=== PATIENT | female | born 1950 | race Caucasian/White ===

== ENCOUNTER 2020-04-12 18:40 | Emergency (ER) | payer BC, OTHER ==
--- OUTSIDE RECORDS SUMMARY | 2020-04-12 18:42 | XMS REPORT | Clinical Summary ---
:1950 Author Organization [facility] Address [address] [place] [id number] Care Team Providers Name Role Phone Maty Kim Primary Care Provider Allergies Active Allergy Reactions Severity Noted Date Comments Codeine Nausea And Vomiting 05/15/2017 Sulfa (Sulfonamide Antibiotics) Hives 8 Medications Medication Sig Dispensed Refills Start Date End Date Status levothyroxine Take 112 mcg by 0 Active (SYNTHROID, LEVOTHROID) mouth Every 112 MCG tablet morning on an empty stomach. pregabalin (LYRICA) 225 Take 225 mg by 0 Active MG capsule mouth 2 (two) times daily. clotrimazole-betamethas Apply topically 2 0 Active one (LOTRISONE) 1-0.05 (two) times % cream daily. cholecalciferol, Take 50,000 Units 0 Active vitamin D3, (DECARA) by mouth once a 50,000 unit capsule week. desvenlafaxine Take 50 mg by 0 A ctive succinate (PRISTIQ) 50 mouth daily. MG 24 hr tablet mirtazapine (REMERON) Take 15 mg by 0 Active 30 MG tablet mouth nightly . temazepam (RESTORIL) 15 Take 15 mg by 0 Active mg capsule mouth every night as needed for Sleep. lidocaine (LIDODERM) 5 Place 1 patch 0 Active % patch onto the skin daily Remove & Discard patch within 12 hours or as directed by MD . pramipexole (MIRAPEX) Take 0.5 mg by 0 Active 0.5 MG tablet mouth nightly. docusate sodium Take 100 mg by 0 Active (COLACE) 100 MG capsule mouth 2 (two) times daily. oxymetazoline (AFRIN) 2 sprays by Nasal 0 Active 0.05 % nasal spray route 2 (two) times daily as needed for Congestion. diphenhydrAMINE Take 25 mg by 0 Active (ZZZQUIL) 25 mg capsule mouth every night as needed (sleep). MENTHOL (ICY HOT PATCH Apply 1 patch 0 Active TOP) topically 2 (two) times daily. gabapentin (NEURONTIN) Take 300 mg by 0 Active 300 MG capsule mouth 3 (three) times daily. oxyCODONE (ROXICODONE) Take 15 mg by 0 Active 15 MG immediate release mouth every 4 tablet (four) hours as needed for Pain. furosemide (LASIX) 20 Take 10 mg by 0 Active MG tabletIndications: mouth daily. hypertension Active Problems Problem Noted Date Chronic pain 12/11/2017 Wound, surgical, infected 08/21/2017 Pre-op testing 08/21/2017 Essential hypertension 06/18/2017 Hypothyroidism 06/18/2017 Depression with anxiety 06/18/2017 Obesity 06/18/2017 Pain 06/18/2017 Chronic pain disorder 05/25/2017 Social History Tobacco Use Types Packs/Day Years Used Date Never Smoker Smokeless Tobacco: Never Used Alcohol Use Drinks/Week oz/Week Comments No Sex Assigned at Date Recorded Not on file Last Filed Vital Signs Not on file Plan of Treatment Health Maintenance Due Date Last Done Comments BREAST CANCER SCREENING 1950 COLON CANCER SCREENING COLONOSCOPY 1950 MEDICARE ANNUAL WELLNESS (YEAR 2 or FIRST YEAR if no 06/09/2015 IPPE) INFLUENZA VACCINE (#1) 2019 02/16/2016 PNEUMOCOCCAL 65+ YRS Completed 02/16/2016 Implants Implanted Type Area Corporate Tutor Device Shelf Model / Identifier Expiration Serial / Date Lot Cath Ascenda Intrathecal 2pc 8781 - [id number] Pain Right: [employer]:NEUROM 12/20/2018 8781 / Implanted: Qty: 1 on 06/13/2017 by Jerome Rodriguez MD at [facility] Mgmt/Sti Abdomen ODULATION / mulator [id number] Pump Infus Synchromed Ii 20 Ml 8637-20 - [id number] Pain Right: [employer]TR[employer]IC:NEUROM 8637-20 / Implanted: Qty: 1 on 06/13/2017 by Jerome Rodriguez MD at [facility] Mgmt/Sti Abdomen ODULATION NGP [id number] / mulator Personal Industrial Psychologist 8835 - [id number] Pain Right: MEDTR ONIC:NEUROM 8835 / Implanted: Qty: 1 on 06/13/2017 by Jerome Rodriguez MD at [facility] Mgmt/Sti Abdomen ODULATION NPG [id number] / mulator Description:SUPPLY Cath Ascenda Intrathecal 2pc 8781 - [id number] Pain Right: MEDTR[employer]:NEUROMODULATION 10/18/2018 8781 / Implanted: Qty: 1 on 06/13/2017 by Jerome Rodriguez MD at [facility] Mgmt/Stimulator Abdomen / [id number] Pump Infus Synchromed Ii 20 Ml 8637-20 - [id number] Pain N/A: MEDTR[employer]IC:NEUROMODULATION 05/23/2019 8637-20 / Implanted: Qty: 1 on 12/11/2017 by Jerome Rodriguez MD at [facility] Mgmt/Stimulator Abdomen [id number] / Cath Ascenda Intrathecal 2pc 8781 - [id number] Pain N/A: [employer]:NEUROMODULATION 09/14/2019 8781 / Implanted: Qty: 1 on 12/11/2017 by Jerome Rodriguez MD at [facility] Mgmt/Stimulator Back / [id number] Kt Revision Spinal Segment 8782 - [id number] Pain N/A: [employer]:NEUROMODULATION 08/24/2019 8782 / Implanted: Qty: 1 on 12/11/2017 by Jerome Rodriguez MD at [facility] Mgmt/Stimulator Back / [id number] Results Not on fileafter 04/12/2019 Insurance Payer Benefit Plan Subscriber ID Effective Phone Address Typ e / Group Dates BLUE BCBS OS [id number] 2016-[place] [phone] [address] CROSS/BLUE POS/PPO/EPO nt 12 [id number] [place] [address] MEDICARE MEDICARE A B [id number] 2014-[place] Advance Directives For more information, please contact: [phone] Code Status Date Activated Date Inactivated Comments Full Code 12/11/2017 2:35 PM 12/13/2017 6:19 PM This code status was determined by: Patient Full Code 11/30/2017 8:18 AM 11/30/2017 11:31 PM This code status was determined by: Patient Full Code 08/21/2017 9:41 AM 08/22/2017 2:03 PM This code status was determined by: Patient Full Code 06/17/2017 9:18 PM 07/03/2017 4:26 PM This code status was determined by: Patient Full Code 05/25/2017 6:48 AM 05/25/2017 4:51 PM This code status was determined by: Patient
--- OUTSIDE RECORDS SUMMARY | 2020-04-12 18:51 | XMS REPORT | Continuity of Care Document ---
:1950 Author Organization [employer] MiName Care Team Providers Name Role Phone [employer] MiName Unavailable Un available Problems Problem Status Onset Classification Date Comments Sourc e Date Reported M19.90 UNSPECIFIED Diagnosis 10/22/2018 [place] OSTEOARTHRITIS, 019 Plac e UNSPECIFIED SITE Z95.810 PRESENCE OF Diagnosis 10/22/2018 [place] AUTOMATIC 019 Place (IMPLANTABLE) CARDIAC DEFIBRILLATOR E78.5 HYPERLIPIDEMIA, Diagnosis 10/22/2018 [place] UNSPECIFIED [address] K21.9 Diagnosis 10/22/2018 [facility] GASTRO-ESOPHAGEAL 019 Pl [place] REFLUX DISEASE WITHOUT ESOPHAGITIS R52 PAIN, UNSPECIFIED Diagnosis 10/22/[address] [place] [address] R53.1 WEAKNESS Diagnosis 10/22/2018 [facility] [address] [address] L30.9 DERMATITIS, Diagnosis 10/22/2018 [facility] UNSPECIFIED [address] W19.XXXA UNSPECIFIED Diagnosis 10/22/2018 [place] FALL, INITIAL 019 Place ENCOUNTER E66.9 OBESITY, Diagnosis 10/22/2018 Univ ersity UNSPECIFIED 019 Place M43.26 FUSION OF Diagnosis 10/22/2018 Un iversity SPINE, LUMBAR REGION 019 Place INTRACTABLE PAIN Active Uni versity 019 Place FALL LESS THAN 8FEET Active 019 [facility] LOW BACK PAIN Active MH 019 [facility] 2 MONTH FOLLOW UP Active MH [facility] 019 FOLLOW UP Active MH [facility] 019 Other specified 11/28/2018 MH [facility] depressive episodes 019 Encounter for 10/14/2018 OP ID screening mammogram 018 [facility] for malignant neoplasm of breast Z12.31 - ENCNTR SCREEN Active [facility] MAMMOGRAM FOR [place] 018 [place] Fever, unspecified 07/20/2018 018 [facility] Major depressive 09/04/2018 [facility] disorder, recurrent 018 severe without psychotic features Unspecified chronic 08/24/2018 gastritis without 018 [place] bleeding VOMITING UNSPECIFIED Active 018 [facility] Nausea with vomiting, 07/30/2018 unspecified 018 [place] Urinary tract 07/30/2018 infection, site not 018 [facility] specified SENT BY DOCTOR Active 018 [place] SENT BY PCP Active 018 [place] F/U Active [facility] 018 ANXIETY DISORDER/ DR Active [facility] [place]ILL[place] [phone] 018 F32.9 MAJOR DEPRESSIVE Diagnosis 10/22/2018 [place] DISORDER, SINGLE 018 [place] ce EPISODE, UNSPECIFIED R25.1 TREMOR, Diagnosis 10/22/2018 [address] rsity [address]IFIED [address] Z98.890 OTHER Diagnosis 10/22/2018 Unive rsity SPECIFIED 018 Place POSTPROCEDURAL STATES M54.5 LOW BACK PAIN Diagnosis 10/22/[address] [place] [address] I10 ESSENTIAL Diagnosis 10/22/2018 Unive rsity (PRIMARY) HYPERTENSION 018 Place Z96.9 PRESENCE OF Diagnosis 10/22/2018 [facility] niversity FUNCTIONAL IMPLANT, 018 Place UNSPECIFIED Chronic pain syndrome Diagnosis 10/22/2018 [place] (disorder) 018 Place Z97.8 PRESENCE OF Diagnosis 10/22/2018 [facility] OTHER SPECIFIED 018 Plac e DEVICES M79.7 FIBROMYALGIA Diagnosis 10/22/[address] [place] [address] E03.9 HYPOTHYROIDISM, Diagnosis 10/22/2018 [place] UNSPECIFIED [address] Z90.710 ACQUIRED Diagnosis 10/22/2018 Un [facility] ABSENCE OF BOTH CERVIX 018 Place AND UTERUS F41.9 ANXIETY Diagnosis 10/22/2018 Unive rsity DISORDER, UNSPECIFIED [address] Z96.643 PRESENCE OF Diagnosis 10/22/2018 [place] ARTIFICIAL HIP JOINT, 018 Place BILATERAL Colles' fracture of 09/23/2017 left radius, initial 018 [facility] encounter for closed fracture CHRONIC PAIN DISORDER Active [place] [address]18 [address] FALL Active 018 [facility] HYPOXIA, HYPOTENSION, Active OPIATE OVERDOSE, P 018 [place] DEGENERATIVE DISC Active [place] morial DISEASE 016 [place] DDD, LUMBOSACRAL Active Mem orial 016 [place] Z01.818 - ENCOUNTER Active OPID FOR OTHER PREPROCEDU 015 [facility] ROUTINE Active [place]14 [place] Constipation Active Problem 03/20/2020 Data Med ical (disorder) 014 migrated Group,MH from [facility], on 09/07/14. [facility],MH OPID [facility], M H [place] t Headache (finding) Active Problem 03/20/2020 [facility] 014 migrated Group,MH from [facility], on 09/07/14. [facility],MH OPID [facility], [facility] [place] Hemorrhoids (disorder) Active Problem 03/20/2020 [facility] 014 migrated Group,MH from [facility], on 09/07/14. [facility], OPID [facility], [facility] HEADACHE Active Condition 12/05/2013 Medica l 014 Group CONSTIPATION Active Condition 12/05/2013 Med ical 014 Group HEMORRHOIDS Active Condition 12/05/2013 Medi [place] 014 Group Left anterior Active Problem 03/20/2020 Data [facility] dical fascicular block 014 migrated Bruce up, (disorder) from [facility], on 09/07/14. [facility],MH OPID [facility], [facility] BUNDLE BRANCH BLOCK, Active Condition 12/05/2013 Medical LEFT ANTERIOR 014 Group FASCICULAR BLOCK High density Active Problem 03/20/2020 Data Med ical lipoprotein deficiency 014 migrate d Group, (disorder) from [facility], on 09/07/14. [facility],MH OPID [facility], [place] [facility] [place] Antinuclear antibody Active Problem 03/20/2020 Data [facility] above reference range 014 migrated Group, (finding) from [facility], on 09/07/14. [facility],MH GINA [facility] Maryam Type II diabetes Active Problem 07/24/2018 Data Medical mellitus uncontrolled 014 migrated Group, (finding) from [facility], on 09/07/14. [facility],MH GINA [facility], [facility] Maryam t DIABETES MELLITUS, Active Condition 12/05/2013 Medical TYPE II, UNCONTROLLED 014 Group LOW HDL Active Condition 12/05/2013 Medica l 014 Group MIK POSITIVE Active Condition 12/05/2013 Med ical 014 Group Obesity (disorder) Active Problem 03/20/2020 [facility] 014 migrated Group, from [facility], on 09/07/14. [facility], GINA [facility] Maryam HIGH RISK MEDICATION Active Condition 12/05/2013 Medical 014 Group OBESITY Active Condition 12/05/2013 Medica l 014 Group Right lower quadrant Active Problem 03/20/2020 Data Medical pain (finding) 013 migrated Group , from [facility], on 09/07/14. [facility],DAVIE FUENTES [facility] Vincentnavarro t PELVIC PAIN Active Condition 12/05/2013 Medi [place] 013 Group HIP PAIN, RIGHT Active Condition 12/05/2013 Medical 013 Group Cobalamin deficiency Active Problem 03/20/2020 Data [facility] (disorder) 013 migrated Group, from [facility], on 09/07/14. [facility], GINA [facility] Maryam t VITAMIN B12 DEFICIENCY Active Condition 12/05/2013 Medical 013 Group Dermatitis (disorder) Active Problem 03/20/2020 [facility] 013 migrated Group, from [facility], on 09/07/14. [facility],MH GINA [facility] [place] [facility] Pain in lower limb Active Problem 03/20/2020 [facility] (finding) 013 migrated Group, from [facility], on 09/07/14. [facility],MH CHRISTID Wally, [facility] [place] PHYSICAL EXAM Active Condition 12/05/2013 [facility] dical 013 Group LEG PAIN Active Condition 12/05/2013 Medica l 013 Group DERMATITIS Active Condition 12/05/2013 Medic al 013 Group VITAMIN D DEFICIENCY Active Condition 12/05/2013 Medical 012 Group Knee pain (finding) Active Problem 03/20/2020 [facility] 011 migrated Group, from [facility], on 09/07/14. [facility], OPID [place], M [place] KNEE PAIN Active Condition 12/05/2013 Medica l 011 Group Flank pain (finding) Active Problem 03/20/2020 [facility] 011 migrated Group, from [facility], on 09/07/14. [facility], CHRISTID Wally, M [facility] [place] FLANK PAIN, RIGHT Active Condition 12/05/2013 [facility] Medical 011 Group UTI Active Condition 12/05/2013 Medica l 011 Group Restless legs Active Problem 03/20/2020 Data [facility] dical (disorder) 011 migrated Group, from [facility], on 09/07/14. [facility],MH OPID [place], M [place] Sleep apnea (finding) Active Problem 03/20/2020 Data Medical 011 migrated Group, from [facility], on 09/07/14. [facility], OPID [place], [place] [facility] [place] SLEEP APNEA Active Condition 12/05/2013 Medi [place] 011 Group RESTLESS LEG SYNDROME Active Condition 12/05/2013 Medical 011 Group HIP REPLACEMENT, LEFT, Active Condition 12/05/2013 Medical HX OF 011 Group TINEA CORPORIS Active Condition 12/05/2013 [facility] edical 011 Group Syncope (disorder) Active Problem 03/20/2020 Data Medical 011 migrated Group,MH from [facility], on 09/07/14. [facility], Rivera Chand FEVER, HX OF Active Condition 12/05/2013 Med ical 011 Group SYNCOPE Active Condition 12/05/2013 MH Medica l 011 Group HIP REPLACEMENT, Active Condition 12/05/2013 Medical RIGHT, HX OF 011 Group Prosthetic Active Problem 03/20/2020 Medic al arthroplasty of the 011 Group, hip (procedure) [facility], [facility], Rivera Chand Osteoarthritis of hip Active Problem 03/20/2020 [facility] (disorder) 011 migrated Group, from [facility], on 09/07/14. [facility], Rivera Chand DEGENERATIVE JOINT Active Condition 12/05/2013 Medical DISEASE, LEFT HIP 011 Gr oup Moderate depressed Active Problem 03/20/2020 Data Medical bipolar I disorder 011 migrated G roup, (disorder) from [facility], on 09/07/14. [facility], Rivera Chand PRE-OP EXAM Active Condition 12/05/2013 [facility] jose luis 011 Group BIPOLAR AFFECTIVE Active Condition 12/05/2013 M Medical DISORDER, MODERATE 011 G roup Aseptic necrosis of Active Problem 03/20/2020 Data Medical head of femur 011 migrated Group, (disorder) from [facility], on 09/07/14. [facility], Rivera Chand ASEPTIC NECROSIS OF Active Condition 12/05/2013 Medical HEAD AND NECK OF FEMUR 011 Group Kidney stone Active Problem 03/20/2020 Data Med ical (disorder) 010 migrated Group, from [facility], on 09/07/14. 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 [facility],MH OPID Wally, Rivera Francisco t ACQUIRED CYST OF Active Condition 12/05/2013 Medical KIDNEY 010 Group Hip pain (finding) Active Problem 03/20/2020 Data Medical 010 migrated Group, from [facility], on 09/07/14. [facility],MH OPID Wally, [place] Francisco t Low back pain Active Problem 03/20/2020 Data Me dical (disorder) 010 migrated Group, from [facility], on 09/07/14. [facility], OPID [facility], Sudhakar Francisco t Lumbar radiculopathy Active Problem 03/20/2020 Data Medical (disorder) 010 migrated Group, from [facility], on 09/07/14. [facility],MH OPID Wally, Rivera Francisco t LOW BACK PAIN Active Condition 12/05/2013 [facility] dical 010 Group HIP PAIN, LEFT Active Condition 12/05/2013 [facility] edical 010 Group LUMBAR RADICULOPATHY Active Condition 12/05/2013 Medical 010 Group Vitamin D deficiency Active Problem 03/20/2020 Data Medical (disorder) 010 migrated Group, from [facility], on 09/07/14. [facility],MH OPID Wally, Rivera Kaurs t UNSPECIFIED VITAMIN D Active Condition 12/05/2013 Medical DEFICIENCY 010 Group [id number] Active [facility] X1 001 [id number] Active [facility] 001 Depression with Active Problem 11/02/2015 eCW : Rashmi anxiety Bria Morbid Obesity Active Problem 11/02/2015 eCW: Rashmi Fraser Hyperlipidemia Active Problem 11/02/2015 eCW: Rashmi Fraser Osteoarthritis Active Problem 11/02/2015 eCW: Rashmi generalized [place] Hypothyroidism Active Problem 11/02/2015 eCW: Rashmi (acquired) [place] Osteoporosis Active Problem 11/02/2015 eCW: Brigid moralez [place] Bipolar affective Active Problem 11/02/2015 e CW: Rashmi disorder, depressed [place] Low Back Pain Active Problem 11/02/2015 eCW: Rashmi Bria Fibromyalgia Active Problem 11/02/2015 eCW: Brigid Fraser Pre-operative Active Diagnosis 02/06/2015 eCW: Rashmi clearance [place]ria Vitamin D Deficiency Active Problem 11/02/2015 eCW: Rashmi Fraser Routine medical exam Active Diagnosis 01/08/2014 eCW: Rashmi Fraser Screen Mammogram NEC Active Diagnosis 03/18/2014 eCW: Rashmi Fraser Cacosmia Active Diagnosis 11/21/2014 eCW: Rashmi Bria Memory deficits Active Diagnosis 05/21/2015 eCW : Rashmi Fraser Preoperative clearance Active Diagnosis 02/09/2015 eCW: Rashmi Fraser Pre-op examination Active Diagnosis 05/21/2015 eCW: Rashmi Fraser Pre-op evaluation Active Diagnosis 02/24/2015 e CW: Rashmi Fraser Depression with Active Problem 05/18/2016 eCW : Rashmi anxiety [place] Vitamin D deficiency Active Problem 05/18/2016 eCW: Rashmi Fraser Hyperlipidemia, Active Problem 05/18/2016 eCW : Rashmi unspecified [place]ria Dorsalgia, unspecified Active Problem 05/18/2016 eCW: Rashmi Bria Spinal stenosis of Active Problem 05/18/2016 eCW: Rashmi thoracolumbar region [place] Generalized OA Active Problem 05/18/2016 eCW: Rashmi Fraser Osteoporosis Active Problem 05/18/2016 eCW: Brigid rhodeslay Fraser Conjunctivitis Active Diagnosis 05/21/2015 eCW: Rashmi Bria Conjunctivitis Active Diagnosis 11/02/2015 eCW: Rashmi Bria Hypertension Active Problem 05/18/2016 eCW: Brigid rhodeslay Fraser Obesity Active Problem 05/18/2016 eCW: Rashmi Bria Benign hypertension Active Problem 03/20/2020 Data Medical (disorder) migrated Group, from [facility], on 09/07/14. [facility],MH OPID [place], [place] [facility] [place] Depressive disorder Active Problem 03/20/2020 Medical (disorder) Group, [facility],MH [facility],MH OPID [facility], [place] Fibromyalgia Active Problem 03/20/2020 Med ical (disorder) Group, [facility],MH OPID [facility], [place] Gastroesophageal Active Problem 03/20/2020 Data Medical reflux disease migrated Group , (disorder) from [facility], on 09/07/14. [facility],MH OPID [facility], [place] Hypercholesterolemia Active Problem 03/20/2020 Data Medical (disorder) migrated Group,MH from [facility], on 09/07/14. [facility], OPID [facility], M [place] Hypothyroidism Active Problem 03/20/2020 [facility] edical (disorder) Group, [facility], [facility], OPID [facility], [place] Arthritis (disorder) Active Problem 03/20/2020 Medical Group, [facility],MH [facility], OPID [facility], H [place] Morbid obesity Active Problem 03/20/2020 [facility] edical (disorder) Group, [facility], [facility], OPID [facility], [place] Osteoporosis Active Problem 03/20/2020 Med ical (disorder) Group, [facility], [facility], OPID [facility], [place] Hypoxemia 09/23/2017 [facility] Acute respiratory 09/23/2017 [facility] failure with hypoxia [facility] Hypotension, 09/23/2017 unspecified [place] Poisoning by other 09/23/2017 opioids, accidental [facility] (unintentional), initial encounter Fall on same level 09/23/2017 from slipping, [place] tripping and stumbling without subsequent striking against object, initial encounter Chronic pain syndrome 09/23/2017 [facility] Weakness 09/23/2017 [facility] Sprain of unspecified 09/23/2017 ligament of right [place] ankle, initial encounter Hypokalemia 09/23/2017 [facility] Insomnia, unspecified 11/28/2018 [facility] Obstructive sleep 11/28/2018 [facility] apnea (adult) (pediatric) Auditory 11/28/2018 MH [facility] hallucinations Restless legs syndrome 11/28/2018 MH [facility], [place], e CW: Rashmi Fraser Other chronic pain 11/28/2018 MH [facility] Pure 10/09/2018 [facility],M H hypercholesterolemia, [place] unspecified Vitamin D deficiency, 10/09/2018 MH [facility],MH unspecified [place] Deficiency of other 10/09/2018 MH [facility] specified B group vitamins Type 2 diabetes 10/09/2018 MH [facility],MH mellitus without [place] complications Hypothyroidism, 10/09/2018 MH [facility],MH unspecified [place],e CW: Rashmi Fraser Morbid (severe) 10/09/2018 MH [facility],MH obesity due to excess [facility] calories Sleep apnea, 10/09/2018 MH [facility],MH unspecified [place] Essential (primary) 10/09/2018 MH [facility],MH hypertension [facility] Gastro-esophageal 11/14/2018 M H [facility],MH reflux disease without [facility] esophagitis Rheumatoid arthritis, 09/04/2018 MH [facility] unspecified Radiculopathy, lumbar 10/09/2018 MH [facility] region Fibromyalgia 10/09/2018 [facility], [place], e CW: Rashmi Fraser Age-related 10/09/2018 [facility] , osteoporosis without [facility] current pathological fracture Personal history of 10/09/2018 [facility] urinary calculi Allergy status to 10/09/2018 M H [facility] narcotic agent status Presence of 10/09/2018 [facility] unspecified artificial hip joint Major depressive 11/14/2018 [facility],MH disorder, single [place] episode, unspecified Disorder of bone, 10/14/2018 M H OPID unspecified [place] Other specified 10/14/2018 OPID disorders of bone [place] density and structure, right thigh Other specified 10/14/2018 OPID disorders of bone [place] density and structure, left thigh Bipolar disorder, 07/20/2018 M H current episode [place] depressed, moderate Unspecified 08/24/2018 osteoarthritis, [place] unspecified site Body mass index (BMI) 07/20/2018 38.0-38.9, adult [place] Presence of artificial 07/30/2018 hip joint, bilateral [place] 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/30/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 cervix and uterus [place] 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 [facility] Other specified 07/30/2018 postprocedural states [facility] Low back pain 10/03/2018 [facility] DEPRESSION Active Condition 12/05/2013 Medic al Group HYPERCHOLESTEROLEMIA Active Condition 12/05/2013 Medical Group HYPERTENSION - BENIGN Active Condition 12/05/2013 Medical ESSENTIAL Group HYPOTHYROIDISM Active Condition 12/05/2013 M edical Group GERD Active Condition 12/05/2013 Medica l Group HYPOXEMIA Active [facility] ACUTE RESPIRATORY Active FAILURE WITH HYPOXIA [facility] COLLES' FRACTURE OF Active LEFT RADIUS, INIT FO [facility] HYPOTENSION, Active UNSPECIFIED [facility] CHRONIC PAIN SYNDROME Active [place] GENERALIZED ANXIETY Active [facility] DISORDER MAJOR DEPRESSIVE Active [facility] DISORDER, SINGLE EPISOD NAUSEA Active [facility] VOMITING, UNSPECIFIED Active [facility] LOW BACK PAIN Active [facility] PAIN, UNSPECIFIED [facility] Medications Medication Details Route Status Patient Ordering Order Source Instructions Provider Date levothyroxine = 1 tab, PO, Active Me dical 112 mcg (0.112 Daily, # 90 2020 Group mg) oral tablet tab, 1 Refill(s), Pharmacy: [id number], 160.02, cm, 01/20/19 14:52:00 CDT, Height, 99.602, kg, 12/05/18 14:04:00 CDT, Weight Betamethasone See Active Medical 0.5 MG/ML / Instructions 2020 Group Clotrimazole 10 , APPLY TO MG/ML Topical THE AFFECTED Cream AREAS TWICE DAILY DIRECTED BY PHYSICIAN., # 45 gm, 0 Refill(s), Pharmacy: [id number], 160.02, cm, 01/20/19 14:52:00 CDT, Height, 99.602, kg, 12/05/18 14:04:00 CDT, Weight olmesartan 20 20 mg = 1 Active Medic al mg oral tablet tab, PO, 2020 Group Daily, # 90 tab, 0 Refill(s), Pharmacy: [facility], 160.02, cm, 01/20/19 14:52:00 CDT, Height, 99.602, kg, 12/05/18 14:04:00 CDT, Weight pramipexole 0.5 = 1 tab, PO, Active Medical mg oral tablet Bedtime, # 2020 Group 90 tab, 0 Refill(s), Pharmacy: [facility] #[id number], 160.02, cm, 01/20/19 14:52:00 CDT, Height, 99.602, kg, 12/05/18 14:04:00 CDT, Weight Betamethasone See Inactive Medica l 0.5 MG/ML / Instructions 2019 Group Clotrimazole 10 , APPLY TO MG/ML Topical THE AFFECTED Cream AREAS TWICE DAILY DIRECTED BY PHYSICIAN., # 45 gm, 1 Refill(s), Pharmacy: [facility] #[id number], 160.02, cm, 01/20/19 14:52:00 CDT, Height, 99.602, kg, 12/05/18 14:04:00 CDT, Weight Vitamin D2 50,000 Active Medical 50,000 intl IntlUnit = 1 2020 Group units oral cap, PO, capsule qWeek, # 12 cap, 1 Refill(s), Pharmacy: [facility] #[id number], 160.02, cm, 01/20/19 14:52:00 CDT, Height, 99.602, kg, 12/05/18 14:04:00 CDT, Weight pregabalin 225 225 mg = 1 Active Med ical MG Oral Capsule cap, PO, 2020 Group [Lyrica] BID, # 180 cap, 1 Refill(s), Pharmacy: [facility] #[id number], 160.02, cm, 01/20/19 14:52:00 CDT, Height, 99.602, kg, 12/05/18 14:04:00 CDT, Weight Betamethasone See Active Medical 0.5 MG/ML / Instructions 2019 Group Clotrimazole 10 , APPLY TO MG/ML Topical THE AFFECTED Cream AREAS TWICE DAILY DIRECTED BY PHYSICIAN., # 45 gm, 0 Refill(s), Pharmacy: [facility] #[id number], 160.02, cm, 01/20/19 14:52:00 CDT, Height, 99.602, kg, 12/05/18 14:04:00 CDT, Weight levothyroxine = 1 tab, PO, Active Me dical 112 mcg (0.112 Daily, # 90 2020 Group mg) oral tablet tab, 1 Refill(s), Pharmacy: [facility] #[id number], 160.02, cm, 01/20/19 14:52:00 CDT, Height, 99.602, kg, 12/05/18 14:04:00 CDT, Weight Olmesartan 20 mg = 1 Active Medical medoxomil 20 MG tab, PO, 2019 Group Oral Tablet Daily, # 30 [Benicar] tab, 5 Refill(s), Pharmacy: [facility] #[id number], 160.02, cm, 01/20/19 14:52:00 CDT, Height, 99.602, kg, 12/05/18 14:04:00 CDT, Weight Vitamin D2 See Active Medical 50,000 intl Instructions 2019 Group units oral , TAKE ONE capsule CAPSULE BY MOUTH ONE TIME PER WEEK, # 12 cap, 0 Refill(s), Pharmacy: [facility] #[id number] Furosemide 20 = 1 tab, PO, Active Me dical MG Oral Tablet Daily, # 90 2020 Group tab, 1 Refill(s), Pharmacy: [facility] #[id number] losartan 100 mg 100 mg = 1 Active Me dical oral tablet tab, PO, 2019 Group Daily, # 90 tab, 1 Refill(s), Pharmacy: [facility] #[id number] Betamethasone See Active Medical 0.5 MG/ML / Instructions 2019 Group Clotrimazole 10 , APPLY TO MG/ML Topical THE AFFECTED Cream AREAS 2 TIMES A DAY DIRECTED, # 45 gm, 1 Refill(s), Pharmacy: [facility] #[id number] Vitamin D2 See Active [facility] Medical 50,000 intl Instructions 2019 Group units oral , TAKE ONE capsule CAPSULE BY MOUTH ONE TIME PER WEEK, # 12 cap, 0 Refill(s), Pharmacy: [facility] #[id number] pregabalin 225 225 mg = 1 Active Med ical MG Oral Capsule cap, PO, 2019 Group [Lyrica] BID, # 180 cap, 0 Refill(s), [facility]: [facility] #[id number] pramipexole 0.5 0.5 mg = 1 Active Me dical mg oral tablet tab, PO, 2019 Group Bedtime, # 90 tab, 0 Refill(s), [facility][id number] Betamethasone See Active Medical 0.5 MG/ML / Instructions 2018 Group Clotrimazole 10 , APPLY TO MG/ML Topical THE AFFECTED Cream AREAS 2 TIMES A DAY DIRECTED, # 45 gm, 1 Refill(s), Pharmacy: [facility] pregabalin 225 225 mg = 1 Active Med ical MG Oral Capsule cap, PO, 2018 Group [Lyrica] BID, # 180 cap, 0 Refill(s) pregabalin 225 225 mg = 1 Active Med ical MG Oral Capsule cap, PO, 2018 Group [Lyrica] BID, # 180 cap, 0 Refill(s) levothyroxine = 1 tab, PO, Active Me dical 112 mcg (0.112 Daily, # 90 2019 Group mg) oral tablet tab, 1 Refill(s), Pharmacy: [place] [id number] [place] [facility] Furosemide 20 = 1 tab, PO, Active Me dical MG Oral Tablet Daily, # 90 2019 Group tab, 1 Refill(s), Pharmacy: [place] [id number] [place] zolpidem 12.5 12.5 mg = 1 Active Med ical mg oral tablet, tab, PO, 2019 Group extended Bedtime, PRN release for sleep, # 30 tab, 3 Refill(s) Olmesartan 20 mg = 1 Active Medical medoxomil 20 MG tab, PO, 2019 Group Oral Tablet Daily, # 30 [Benicar] tab, 5 Refill(s), Pharmacy: [place] [id number] [place] losartan 100 mg = 1 tab, PO, Active Medical oral tablet Daily, # 240 2019 Group tab, 1 Refill(s), Pharmacy: [place] [id number] [place] pregabalin 225 225 mg = 1 Active Med ical MG Oral Capsule cap, PO, 2019 Group [Lyrica] BID, # 60 cap, 1 Refill(s) Betamethasone See Active Medical 0.5 MG/ML / Instructions 2019 Group Clotrimazole 10 , APPLY TO MG/ML Topical THE AFFECTED Cream AREAS 2 TIMES A DAY DIRECTED, # 45 gm, 1 Refill(s), Pharmacy: [place] [id number] [place] zolpidem 12.5 12.5 mg = 1 Active Med ical mg oral tablet, tab, PO, 2019 Group extended Bedtime, PRN release for sleep, 0 Refill(s) Cholecalciferol 50,000 Active Medic al 86951 UNT Oral IntlUnit = 1 2019 Grou p Capsule cap, PO, [Decara] qWeek, 0 Refill(s) pregabalin 225 225 mg = 1 Active Med ical MG Oral Capsule cap, PO, 2019 Group [Lyrica] BID, # 60 cap, 1 Refill(s) pregabalin 225 225 mg = 1 Active Med ical MG Oral Capsule cap, PO, 2019 Group [Lyrica] BID, # 60 cap, 0 Refill(s) oxyCODONE HCl Give 1 Oral Active Tablet 10 MG tablet by 2019 Place mouth three times a day for pain QUEtiapine GIVE 1 Oral Active Fumarate Tablet TABLET BY 2018 Place 50 MG MOUTH AT BEDTIME Mirapex Tablet GIVE 1 Oral Active Universit [facility] 0.5 MG TABLET BY 2018 Place MOUTH AT BEDTIME Lyrica Capsule Give 1 Oral Active Universit [facility] 200 MG capsule by [address] mouth three times a day related to FIBROMYALGIA (M79.7) Vitamin D2 Notes: (Same No Longer as: Vitamin Active 2018 [facility] D) "Do Not Crush" oxyCODONE HCl Give 1 Oral Active 10/02/ [facility] Tablet 10 MG tablet by 2019 Place mouth three times a day for pain for 7 Days Centrum Adults Give 1 Oral Active 10/02/ Universit y Tablet tablet by 2019 Place mouth one time a day for Dietary Supplement Forteo Solution Inject 20 Subcutaneo Active 10/02/ Uni versity [facility] 2019 Place subcutaneous ly one time a day related to UNSPECIFIED OSTEOARTHRIT IS, UNSPECIFIED SITE (M19.90) Cholestyramine GIVE 1 Oral Active it y Light Packet 4 PACKET BY 2019 Place GM MOUTH ONE TIME A DAY MIX IN 8OZ LIQUID Lotrisone Cream APPLY TO External Active 10/02/ Univer sity 1-0.05 % AFFECTED 2019 Place AREA TOPICALLY TWO TIMES A DAY BOTH GROIN FOR REDNESS Cyanocobalamin Give 1 Sublingual Active er sity Tablet [address] sublingually one time a day for Dietary Supplement Esomeprazole Give 1 Oral Active Magnesium capsule by [address] Place Capsule Delayed mouth one Release 40 MG time a day for GERD Administer before meals. DO NOT CRUSH. Pregabalin Give 2 Oral Inactive Capsule 75 MG capsule by [address] Place mouth four times a day related to FIBROMYALGIA (M79.7) DESVENLAFAXINE TAKE 1 TAB Oral Active er sity ER 50MG TAB ER BY MOUTH [address] Place 24H EVERY DAY Ferrous Sulfate Give 1 Oral Active i ty Tablet 325 ([address] Fe) MG mouth one time a day for supplementat ion Vitamin D2 GIVE 42893 Oral Active Tablet UNIT BY [address] MOUTH ONE TIME A DAY EVERY SUN GlycoLax Powder Give 17 gram Oral Active Uni versity by mouth one 2019 Place time a day every other day for constipation (in Liquid) Losartan GIVE 1 Oral Active Potassium TABLET BY [address] Place Tablet 100 MG MOUTH ONE TIME A DAY HOLD FOR SBP<110, P<60 Furosemide GIVE 1 Oral Active Tablet 20 MG TABLET BY [address] Place MOUTH ONE TIME A DAY Pristiq Tablet Give 1 Oral Active y Extended tablet by [address] Place Release 24 Hour mouth one 50 MG time a day related to MAJOR DEPRESSIVE DISORDER, SINGLE EPISODE, UNSPECIFIED (F32.9) Levothyroxine GIVE 1 Oral Active Sodium Tablet TABLET BY [address] 112 MCG MOUTH ONE TIME A DAY GIVE 30 MINUTES BEFORE BREAKFAST ON EMPTY STOMACH OMEPRAZOLE 20MG 1 CAP BY Oral Active ity CAPSULE DR MOUTH EVERY 2019 Place DAY AT LEAST 30MINUTES BEFORE A MEAL TI FOR NEXIUM Docusate Sodium Give 1 Oral Active i ty Capsule 100 MG capsule by [address] Place mouth every 12 hours for constipation Furosemide 20 20 mg = 1 Active 10/01/ MH MG Oral Tablet tab, PO, 2019 [facility] t Daily, 0 Refill(s) pregabalin 75 150 mg = 2 Active mg oral capsule cap, PO, [address] [facility] [address] QID, 0 Refill(s) heparin sodium, Notes: No Longer porcine 2500 porcine Active 2018 [facility] UNT/ML heparin Injectable Solution Lyrica Notes: (Same No Longer as: Lyrica) Active 2018 [facility] Losartan Notes: (Same No Longer as: Cozaar) Active 2018 [facility] Furosemide 20 Notes: (Same No Longer MG Oral Tablet as: Lasix) Active 2018 [facility] est May cause GI upset. Give with food or milk. Esomeprazole 40 mg, No Longer Route: PO, 2018 [facility] Drug form: ECCAP, Daily, Dosing Weight 97.898, kg, Start date: 09/26/18 9:00:00 CDT, Duration: 30 day, Stop date: 10/25/18 9:00:00 CDT Effexor XR Notes: Do No Longer not crush, 2018 [facility] or chew. Contents of capsule may be sprinkled on a spoonful of applesauce and swallowed immediately without chewing; followed with a glass of water to ensure complete swallowing of the pellets. (Same As: Effexor XR) Forteo 20 No Longer microgram, 2018 [facility] Route: SUB-Q, Daily, Dosing Weight 97.898, kg, Start date: 09/26/18 9:00:00 CDT, Duration: 30 day, Stop date: 10/25/18 9:00:00 CDT 24 HR 50 mg, 1 No Longer Desvenlafaxine tab, Route: 2018 [facility] 50 MG Extended PO, Drug Release Tablet form: ERTAB, [Pristiq] Daily, Dosing Weight 97.898, kg, Start date: 09/26/18 9:00:00 CDT, Duration: 30 day, Stop date: 10/25/18 9:00:00 CDT Miralax Notes: No Longer Dissolve in 2018 [facility] 8 oz of water or juice. (Same as: Miralax) Thyroxine Notes: Take No Longer 1 hour Active 2018 [facility] before or 2 hours after meal; Enteral feeds may interefere with the absorption of this medication.( Same as:Levothroi d) Docusate Sodium Notes: (Same No Longer H 100 MG Oral as: Colace) Active 2018 [facility] t Capsule (Do Not [Colace] Crush) Pramipexole 0.5 mg, 1 No Longer tab, Route: Active 2018 [facility] PO, Drug form: TAB, Bedtime, Dosing Weight 97.898, kg, Start date: 09/25/18 21:00:00 CDT, Duration: 30 day, Stop date: 10/24/18 21:00:00 CDT clotrimazole Notes: For No Longer topical 1% external use Active 2018 [facility] t cream only. (Same As: Lotrimin AF, Mycelex) ketOROLAC 15 4 days. No Longer mg/mL Active 2018 [facility] injectable solution Diprolene AF Notes: No Longer (betamethaso Active 2018 [facility] ne dip, aug 0.05% 15gm CRM) (Same As: Diprolene AF) ketOROLAC 30 30 mg, Inactive mg/mL Route: IVP, 2018 [facility] injectable Drug form: solution INJ, Q6H, Dosing Weight 97.898, kg, Start date: 09/25/18 18:00:00 CDT, Duration: 4 day, Stop date: 09/29/18 12:00:00 CDT Lyrica Notes: (Same No Longer as: Lyrica) Active 2018 [facility] zolpidem Notes: (Same No Longer As: Ambien) Active 2018 [facility] sennosides, [facility] Notes: (Same No Longer H as: Senokot) Active 2018 [facility] Protonix Notes: No Longer Tablet Active 2018 [facility] should not be chewed or crushed. (Same as: Protonix) Betamethasone Route: TOP, Inactive 0.5 MG/ML / BID, Drug 2018 [facility] Clotrimazole 10 form: CRM, MG/ML Topical Start date: Cream 09/25/18 17:00:00 CDT, Duration: 30 day, Stop date: 10/25/18 9:00:00 CDT Ambien CR 6.25 mg, Inactive Route: PO, 2018 [facility] Drug form: ERTAB, Bedtime, Dosing Weight 97.898, kg, PRN Sleep, Priority: STAT, Start date: 09/25/18 16:40:00 CDT, Duration: 30 day, Stop date: 10/25/18 16:39:00 CDT Seroquel Notes: (Same No Longer as: Active 2019 [facility] SEROquel) Dilaudid Notes: Same No Longer as Dilaudid Active 2018 [facility] Oxymetazoline Notes: (Same No Longer hydrochloride as: Afrin) [facility] Nasal [place] [Afrin] Dilaudid Notes: Same Inactive as Dilaudid 2018 [facility] heparin sodium, Notes: No Longer porcine 2500 porcine Active 2018 [facility] UNT/ML heparin Injectable Solution Melatonin 3 MG Notes: (Same No Longer Extended as: Active 2019 [facility] Release Tablet Melatonin) oxyCODONE 10 mg Notes: Do No Longer extended not crush or Active 2018 [facility] release chew. (Same as: OxyContin) oxyCODONE 10 mg 10 mg = 1 Active oral tablet, tab, PO, 2018 [facility] immediate TID, 0 release Refill(s) Forteo 20 Active microgram, 2019 [facility] SUB-Q, Daily, 0 Refill(s) Robaxin Notes: (Same No Longer as:Robaxin) Active 2018 [facility] Hydralazine Notes: (Same No Longer as: Active 2019 [facility] Apresoline) Push over 5 minutes Dilaudid Notes: Same No Longer as Dilaudid Active 2018 [facility] Ondansetron Notes: (Same No Longer as: Zofran) Active 2018 [facility] MEDICATION WASTE Product Size: 4 mg Product Wasted: ___ mg Dextrose 50% 25 gm, 50 No Longer Syringe mL, Route: Active 2018 [facility] IVP, Drug Form: INJ, Dosing Weight 98, kg, PRN, PRN Blood Glucose Results, Start date: 09/22/18 14:22:00 CDT, Duration: 30 day, Stop date: 10/22/18 14:21:00 CDT Acetaminophen Notes: Do No Longer not exceed 4 Active 2018 [facility] gm/day. (Same as: Tylenol) Glucagon 1 mg, Route: No Longer IM, Drug Active 2018 [facility] form: PDR/INJ, PRN, Dosing Weight 98, kg, PRN Blood Glucose Results, Start date: 09/22/18 14:22:00 CDT, Duration: 30 day, Stop date: 10/22/18 14:21:00 CDT Dilaudid Notes: Same Inactive as Dilaudid 2018 [facility] Saline Flush Notes: (Same No Longer 0.9% as: BD Active 2018 [facility] Posiflush) Ketorolac 4 days Inactive 2019 [facility] MEDICATION WASTE Product Size: 30 mg Product Wasted: ___ mg Dilaudid Notes: Same Inactive as Dilaudid 2018 [facility] quetiapine 50 50 mg = 1 Active [facility] MG Oral Tablet tab, PO, 2019 [Seroquel] Bedtime, # 90 tab, 1 Refill(s), Pharmacy: [facility], This replaces previous RX sent 03/21/18 which was 1-mo supply. New RX is 3-mo supply 24 HR 50 mg = 1 Active [facility] Desvenlafaxine tab, PO, 2019 50 MG Extended Daily, # 90 Release Tablet tab, 0 [Pristiq] Refill(s), Pharmacy: [facility] Zolpidem 12.5 mg = 1 Active [facility] tartrate 12.5 tab, PO, 2019 MG Extended Bedtime, PRN Release Tablet for sleep, # [Ambien] 30 tab, 2 Refill(s) pregabalin 225 225 mg = 1 Active Med ical MG Oral Capsule cap, PO, 2019 Group [Lyrica] BID, # 60 cap, 0 Refill(s) Furosemide 20 20 mg = 1 Active Medic al MG Oral Tablet tab, PO, 2019 Group Daily, # 30 tab, 1 Refill(s), Pharmacy: [facility] [id number] [facility] Betamethasone See Active Medical 0.5 MG/ML / Instructions 2019 Group Clotrimazole 10 , APPLY MG/ML Topical EXTERNALLY Cream TO THE AFFECTED AREA TWICE DAILY, # 45 gm, 1 Refill(s), Pharmacy: [facility] desvenlafaxine 50 mg = 1 Active [facility] 50 mg oral tab, PO, 2019 tablet, Daily, # 90 extended tab, 0 release Refill(s), [place], Pharmacy: [facility] [id number] [facility] Mupirocin 0.02 1 appl, TOP, Active M edical MG/MG Topical TID, PRN as 2019 Group Ointment needed, [Bactroban] Apply to affected area(s), X 14 day, # 60 gm, 1 Refill(s), Pharmacy: [facility] clindamycin 300 300 mg = 1 Active Me dical mg oral capsule cap, PO, 2019 Group Q6H, X 10 day, # 40 cap, 0 Refill(s), Pharmacy: [facility] Hydromorphone See Active Medical Instructions 2019 Group , 0 Refill(s) quetiapine 50 50 mg = 1 Active Medic al MG Oral Tablet tab, PO, 2019 Group [Seroquel] Daily, 0 Refill(s) Zolpidem 12.5 mg = 1 Active Medical tartrate 12.5 tab, PO, 2019 Group MG Extended Bedtime, PRN Release Tablet for sleep, 0 [Ambien] Refill(s) Furosemide 20 20 mg = 1 Active Medic al MG Oral Tablet tab, PO, 2019 Group Daily, # 30 tab, 0 Refill(s), Pharmacy: [facility] [id number] [facility] losartan 100 mg = 1 tab, PO, Active Medical oral tablet Daily, # 240 2019 Group tab, Pharmacy: [facility] Betamethasone See Active Medical 0.5 MG/ML / Instructions 2019 Group Clotrimazole 10 , # 45 gm, MG/ML Topical Refill(s) 1, Cream APPLY EXTERNALLY TO THE AFFECTED AREA TWICE DAILY, Pharmacy: [facility] [id number] [facility] ferrous sulfate See Active Medic al 325 mg oral Instructions 2019 Group enteric coated , # 90 tab, tablet Refill(s) 3, PLEASE SEE ATTACHED FOR DETAILED DIRECTIONS, Pharmacy: [facility] quetiapine 50 50 mg = 1 Active [facility] MG Oral Tablet tab, PO, 2019 [Seroquel] Bedtime, # 90 tab, 0 Refill(s), [facility]acy: [facility], This replaces previous RX sent 03/21/18 which was 1-mo supply. New RX is 3-mo supply Zolpidem 12.5 mg = 1 Inactive [facility] tartrate 12.5 tab, PO, 2019 MG Extended Bedtime, PRN Release Tablet for sleep, # [Ambien] 30 tab, 2 Refill(s) 24 HR 50 mg = 1 Inactive [facility] Desvenlafaxine tab, PO, 2019 50 MG Extended Daily, # 30 Release Tablet tab, 0 [Pristiq] Refill(s) Esomeprazole 40 = 1 cap, PO, Active Medical MG Enteric Daily, # 90 2019 Group Coated Capsule cap, 0 Refill(s), Pharmacy: [place] [id number] [facility] Esomeprazole 40 = 1 cap, PO, Inactive Medical MG Enteric Daily, # 90 2019 Group Coated Capsule cap, 0 Refill(s) pregabalin 225 225 mg = 1 Active Med ical MG Oral Capsule cap, PO, 2019 Group [Lyrica] BID, # 60 cap, 0 Refill(s) desvenlafaxine See No Longer [facility] 50 mg oral Instructions Active 2019 tablet, , # 90 tab, extended TAKE 1 release TABLET BY MOUTH EVERY DAY, Pharmacy: [place] [id number] [facility] Esomeprazole 40 = 1 cap, PO, No Longer 05/14/ M H Medical MG Enteric Daily, # 30 Active 2019 Group Coated Capsule unknown unit, 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, Pharmacy: [place] [id number] [facility] pregabalin 225 225 mg = 1 No Longer M edical MG Oral Capsule cap, PO, Active 2019 Group [Lyrica] BID, # 60 cap, 0 Refill(s) Betamethasone See No Longer Medic al 0.5 MG/ML / Instructions Active 2019 Group Clotrimazole 10 , # 45 gm, MG/ML Topical Refill(s) 1, Cream APPLY EXTERNALLY TO THE AFFECTED AREA TWICE DAILY, Pharmacy: [place] [id number] [facility] levothyroxine = 1 tab, PO, Active Me dical 112 mcg (0.112 Daily, # 90 2019 Group mg) oral tablet tab, Refill(s) 1, Pharmacy: [place] [id number] [facility] Vitamin D2 See Active Medical 50,000 intl Instructions 2019 Group units oral , # 12 capsule unknown unit, TAKE ONE CAPSULE BY MOUTH ONE TIME PER WEEK, Pharmacy: [place] [id number] [facility] quetiapine 50 50 mg = 1 No Longer OPI D MG Oral Tablet tab, PO, Active 2018 [place] [Seroquel] Bedtime, # 90 tab, 0 Refill(s), Pharmacy: [place] [id number] [facility], This replaces previous RX sent 03/21/18 which was 1-mo supply. New RX is 3-mo supply Esomeprazole 40 40 mg = 1 No Longer M edical MG Enteric cap, PO, Active 2019 Group Coated Capsule Daily, # 30 [Nexium] cap, 0 Refill(s), Pharmacy: [place] [id number] [facility] pregabalin 225 225 mg = 1 No Longer M edical MG Oral Capsule cap, PO, Active 2018 Group [Lyrica] BID, # 60 cap, 0 Refill(s) Zolpidem 12.5 mg = 1 No Longer [facility] tartrate 12.5 tab, PO, Active 2018 [facility] Extended Bedtime, PRN Release Tablet for sleep, # [Ambien] 30 tab, 3 Refill(s) quetiapine 50 50 mg = 1 No Longer [facility] MG Oral Tablet tab, PO, Active 2018 [Seroquel] Bedtime, # 30 tab, 3 Refill(s), Pharmacy: [place] [id number] [facility] Zolpidem 12.5 mg = 1 Inactive [facility] tartrate 12.5 tab, PO, 2018 MG Extended Bedtime, PRN Release Tablet for sleep, 0 [Ambien] Refill(s) Betamethasone See No Longer Medic al 0.5 MG/ML / Instructions Active 2017 Group Clotrimazole 10 , # 45 gm, MG/ML Topical Refill(s) 1, Cream APPLY EXTERNALLY TO THE AFFECTED AREA TWICE DAILY, Pharmacy: [facility] [id number] [facility] ferrous sulfate 325 mg = 1 No Longer Medical 325 mg oral tab, PO, Active 2017 Group enteric coated TID, Start tablet with 1 tab daily x 3 days, advance as tolerate, use stool softners and laxatives as needed for constipation , # 90 tab, 3 Refill(s), Pharmacy: [facility] Rosuvastatin 10 mg = 1 No Longer Medi jose luis calcium 10 MG tab, PO, Active 2017 Group Oral Tablet Bedtime, # [Crestor] 90 tab, 1 Refill(s), Pharmacy: [facility] 0.5 ML 0.5 mL, IM, No Longer Medical Varicella ONCE, # 1 Active 2017 Group zoster virus mL, 0 glycoprotein E, Refill(s), recombinant 0.1 Pharmacy: MG/ML [facility] pregabalin 225 225 mg = 1 No Longer M edical MG Oral Capsule cap, PO, Active 2017 Group [Lyrica] BID, # 60 cap, 0 Refill(s) pregabalin 225 225 mg = 1 Inactive Me dical MG Oral Capsule cap, PO, 2017 Group [Lyrica] BID, # 60 cap, 0 Refill(s) Esomeprazole 40 40 mg = 1 No Longer M edical MG Enteric cap, PO, Active 2017 Group Coated Capsule Daily, # 30 [Nexium] cap, 0 Refill(s), Pharmacy: [facility] 24 HR 50 mg = 1 No Longer [facility] Desvenlafaxine tab, PO, Active 2017 50 MG Extended Daily, # 90 Release Tablet tab, 0 [Pristiq] Refill(s), Pharmacy: [facility] aripiprazole 2 2 mg = 1 No Longer [facility] MG Oral Tablet tab, PO, Active 2018 [Abilify] Daily, # 30 tab, 2 Refill(s), Pharmacy: [facility] aripiprazole 20 20 mg = 1 No Longer [facility] MG Oral Tablet tab, PO, Active 2018 [Abilify] Daily, # 30 tab, 2 Refill(s), Pharmacy: [facility] Zolpidem 12.5 mg = 1 No Longer [facility] tartrate 12.5 tab, PO, Active 2018 MG Extended Bedtime, PRN Release Tablet for sleep, X [Ambien] 30 day, # 30 tab, 0 Refill(s) Sugar-Free = 1 pkg, PO, Active Medic al Cholestyramine Daily, # 30 2018 Group Resin 4000 MG pkg, 1 Powder for Oral Refill(s), Suspension Pharmacy: [[facility]] [place] [id number] [facility] LR IV 1,000 mL 1,000 mL, Inactive Rate: 40 2018 [facility] ml/hr, Infuse over: 25 hr, Route: IV, Dosing Weight 95.455 kg, Total Volume: 1,000, Start date: 02/04/18 8:58:00 CDT, Duration: 30 day, Stop date: 03/06/18 8:57:00 [facility], 2.09, m2 Vitamin D2 See No Longer Medical 50,000 intl Instructions Active 2018 Group units oral , # 12 capsule unknown unit, TAKE ONE CAPSULE BY MOUTH ONE TIME PER WEEK, Pharmacy: [facility] Ondansetron 4 4 mg = 1 No Longer Medi jose luis MG Oral Tablet tab, PO, Active 2018 Group [Zofran] Q6H, PRN Nausea/Vomit ing, # 60 tab, 0 Refill(s), Pharmacy: [facility] Esomeprazole 40 40 mg = 1 No Longer M edical MG Enteric cap, PO, Active 2018 Group Coated Capsule Daily, # 30 [Nexium] cap, 0 Refill(s), Pharmacy: [facility] Betamethasone See No Longer Medic al 0.5 MG/ML / Instructions Active 2018 Group Clotrimazole 10 , # 45 gm, MG/ML Topical Refill(s) 1, Cream APPLY EXTERNALLY TO THE AFFECTED AREA TWICE DAILY, Pharmacy: [facility] Ondansetron 4 4 mg = 1 Active Medica l MG tab, PO, 2018 Group Disintegrating TID, PRN Tablet [Zofran] nausea and vomiting, # 60 tab, 3 Refill(s), Pharmacy: [place] [id number] [facility] Nitrofurantoin 100 mg = 1 No Longer M edical 100 MG Oral cap, PO, Active 2017 Group Capsule BID, X 7 [Macrobid] day, # 14 cap, 0 Refill(s), Pharmacy: [place] [id number] [facility] ciprofloxacin 500 mg = 1 No Longer 500 mg oral tab, PO, Active 2017 [facility] tablet Q12H, X 10 day, # 20 tab, 0 Refill(s) Ondansetron 4 4 mg = 1 No Longer MG tab, PO, Active 2017 [facility] Disintegrating TID, PRN Tablet [Zofran] nausea and vomiting, # 9 tab, 0 Refill(s) Rocephin + Notes: (Same Inactive sterile water As: 2017 [facility] 10 mL Rocephin). Use with 100 mL NS and infuse over 30 min MEDICATION WASTE Product Size: 1000 mg Product Wasted: ___ mg Zofran 4 mg, Route: Inactive IVP, Drug 2017 [facility] form: INJ, ONCE, Dosing Weight 102.273, kg, Priority: STAT, Start date: 01/10/18 13:06:00 CDT, Stop date: 01/10/18 13:06:00 CDT Visipaque 320 Notes: (Same Inactive mg/mL as: 2017 [facility] injectable Visipaque). solution WASTE: F/P - Black; E - [facility] Omnipaque 300 Notes: (Same Inactive injectable as:Omnipaque 2017 [facility] t solution 300). WASTE: F/P - Black; E - [facility] Zofran 4 mg, Route: Inactive PO, Drug 2017 [facility] form: TABDIS, ONCE, Dosing Weight 102.273, kg, Priority: STAT, Start date: 01/10/18 10:11:00 CDT, Stop date: 01/10/18 10:11:00 CDT Sodium Chloride 500 mL, Inactive 0.9% (Bolus) IV Infuse Over: 2018 [facility] [place] 1 hr, Route: IV, ONCE, Priority: STAT, Dosing Weight 102.273 kg, Start date: 01/10/18 10:11:00 CDT, Stop date: 01/10/18 10:11:00 CDT temazepam 15 mg 15 mg = 1 No Longer [facility] oral capsule cap, PO, Active 2017 Bedtime, PRN Sleep, # 30 cap, 1 Refill(s) 24 HR 50 mg = 1 No Longer [facility] Desvenlafaxine tab, PO, Active 2017 50 MG Extended Daily, # 30 Release Tablet tab, 3 [Pristiq] Refill(s), Pharmacy: [place] [id number] [facility] Centrum Adults 1 tab, PO, Active [facility] Daily, 0 2017 Refill(s) Diphenhydramine over the No Longer TI RR counter, 0 Active 2017 Refill(s) Ergocalciferol See No Longer Medi jose luis [address] UNT Oral Instructions Active 2017 Grou p Capsule , TAKE 1 CAPSULE BY MOUTH EVERY WEEK, # 12 cap, 0 Refill(s), Pharmacy: [facility] levothyroxine See No Longer Medic al 112 mcg (0.112 Instructions Active 2017 [facility] p mg) oral tablet , TAKE 1 TABLET BY MOUTH DAILY, # 90 tab, 1 Refill(s), Pharmacy: [facility] [id number] [facility] Betamethasone See No Longer Medic al 0.5 MG/ML / Instructions Active 2018 Group Clotrimazole 10 , APPLY MG/ML Topical EXTERNALLY Cream TO THE AFFECTED AREA TWICE DAILY, # 45 gm, 1 Refill(s), Pharmacy: [facility] temazepam 15 mg 15 mg = 1 Active Med ical oral capsule cap, PO, 2018 Group Bedtime, PRN Sleep, # 60 caplet, 0 Refill(s) pregabalin 225 225 mg = 1 Active Med ical MG Oral Capsule cap, PO, 2017 Group [Lyrica] BID, # 60 cap, 3 Refill(s) temazepam 15 mg 15 mg = 1 Active Med ical oral capsule cap, PO, 2018 Group Bedtime, PRN Sleep, # 30 cap, 0 Refill(s) Furosemide 20 20 mg = 1 Active Medic al MG Oral Tablet tab, PO, 2017 Group Daily, # 30 tab, 0 Refill(s) losartan 100 mg 100 mg = 1 Active Me dical oral tablet tab, PO, 2017 Group Daily, # 90 tab, 0 Refill(s) Temazepam Give 1 Oral Active Capsule 15 MG capsule by 2017 Place mouth every 24 hours as needed for insomnia Ibuprofen GIVE 1 Oral Active Tablet 400 MG TABLET BY 2018 Place MOUTH THREE TIMES A DAY FOR 7 DAYS OxyCODONE HCl Give 1 Oral Active Tablet 15 MG tablet by 2018 Place mouth every 6 hours as needed for For pain Temazepam Give 2 Oral Active Capsule 7.5 MG capsule by 2018 Place mouth every 24 hours as needed for insomnia give 2 tabs = 15mg Amoxicillin-Pot GIVE 1 Oral Active ty Clavulanate TABLET BY [address] Tablet 875-125 MOUTH EVERY MG 12 HOURS FOR 7 DAYS Temazepam Give 1 Oral Inactive Capsule 15 MG tablet by 2018 Place mouth every 24 hours as needed for sleep until 07/16/2017 23:59 Temazepam Give 1 Oral Active Capsule 15 MG capsule by 2018 Place mouth every 24 hours as needed for Insomnia Bisacodyl EC Give 2 Oral Active Tablet Delayed tablet by 2018 Place Release 5 MG mouth every 24 hours as needed for constipation Acetaminophen Give 2 Oral Active Tablet 325 MG tablet by 2018 Place mouth every 6 hours as needed for pain and fever greater than 100.4 Decara Capsule Give 50950 Oral Active [facility] sity [address] UNIT unit by 2017 Place mouth one time a day every Hannah for Vitamin Supplement Lidoderm Patch APPLY TO External Active ity 5 % RIGHT THIGH 2018 Place TOPICALLY ONE TIME A DAY APPLY TO (SPECIFY SITE) AND REMOVE PER SCHEDULE DESVENLAFAXINE 1 TAB BY Oral Active i ty ER 50MG TAB ER MOUTH EVERY 2018 Place 24H DAY Desvenlafaxine Give 1 Oral Active it y Succinate ER tablet by 2018 Place Tablet Extended mouth one Release 24 Hour time a day 50 MG related to MAJOR DEPRESSIVE DISORDER, SINGLE EPISODE, UNSPECIFIED (F32.9) Icy Hot Patch Apply to External Active 03/28/ Universi ty affected [address] area topically two times a day for affected area Bisacodyl EC Give 2 Oral Active Tablet Delayed tablet by 2018 Place Release 5 MG mouth one time a day for Bowel Management Losartan GIVE 1 Oral Inactive Potassium TABLET BY [address] Place Tablet 25 MG MOUTH ONE TIME A DAY Levothyroxine GIVE 1 Oral Active Sodium Tablet TABLET BY [address] Place 112 MCG MOUTH ONE TIME A DAY GIVE 30 MINUTES BEFORE BREAKFAST ON EMPTY STOMACH Cyclobenzaprine GIVE 1 Oral Active i ty HCl Tablet 5 MG TABLET BY [address] Place MOUTH EVERY 8 HOURS NEEDED FOR MUSCLE SPASMS FOR 10 DAYS Temazepam Give 1 Oral Active Capsule 15 MG tablet by 2018 Place mouth every 24 hours as needed for sleep for 14 Days Mirtazapine GIVE 1 Oral Active Tablet 30 MG TABLET BY 2018 Place MOUTH AT BEDTIME Mirapex Tablet GIVE 1 Oral Active it y 0.5 MG TABLET BY 2018 Place MOUTH AT BEDTIME Lyrica Capsule Give 1 Oral Active y 225 MG capsule by 2018 Place mouth two times a day related to FIBROMYALGIA (M79.7) Clotrimazole-Be Apply to External Active 07/04/ Univer sity tamethasone affected [address] Place Cream 1-0.05 % area topically two times a day for affected area Docusate Sodium Give 1 Oral Active i ty Capsule 100 MG capsule by [address] Place mouth two times a day for Constipation Enulose GIVE 15 ML Oral Active Solution 10 BY MOUTH 2018 Place GM/15ML EVERY 48 HOURS NEEDED FOR CONSTIPATION Acetaminophen Give 2 Oral Active Tablet 325 MG tablet by 2018 Place mouth every 6 hours as needed for pain OxyCODONE HCl Give 1 Oral Active Tablet 15 MG tablet by 2018 Place mouth every 6 hours as needed for severe pain for 10 Days Vitamin D2 Notes: (Same No Longer as: Vitamin Active 2017 D) "Do Not Crush" Miralax Notes: Inactive Dissolve in 2017 [facility] 8 oz of water or juice. (Same as: Miralax) levothyroxine levothyroxin No Longer 112 mcg (0.112 e 112 mcg Active [address] mg) oral tablet (0.112 mg) oral tablet, See Instructions , Route: PO, Daily, 06/17/17 9:00:00 CDT, Duration: 30 day, Stop date: 07/16/17 9:00:00 CDT Hydrochlorothia 1 tab, Inactive zide 12.5 MG / Route: PO, 2017 [facility] est Losartan Drug Form: Potassium 100 TAB, Dosing MG Oral Tablet Weight 112.443, kg, Daily, Start date: 06/17/17 9:00:00 CDT, Duration: 30 day, Stop date: 07/16/17 9:00:00 CDT 24 HR 50 mg, 1 No Longer Desvenlafaxine tab, Route: Active 2017 [facility] 50 MG Extended PO, Drug Release Tablet form: ERTAB, [Pristiq] Daily, Dosing Weight 112.443, kg, Start date: 06/17/17 9:00:00 CDT, Duration: 30 day, Stop date: 07/16/17 9:00:00 CDT Vitamin B 12 Notes: (Same Inactive As: Vitamin 2017 [facility] B12) Effexor XR Notes: Do Inactive not open, 2017 [facility] crush, or chew. 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, Duration: 30 day, Stop date: 07/15/17 21:00:00 CDT Mirtazapine Notes: (Same No Longer as:Remeron) Active 2017 [facility] Docusate Sodium Notes: (Same No Longer H 100 MG Oral as: Colace) Active 2017 [facility] t Capsule (Do Not [Colace] Crush) NS 1,000 mL 1,000 mL, No Longer Rate: 50 Active 2017 [facility] ml/hr, Infuse over: 20 hr, Route: IV, Dosing Weight 112.443 kg, Total Volume: 1,000, Start date: 06/16/17 15:59:00 HARNESS RIGGER, Duration: 30 day, Stop date: 07/16/17 15:58:00 CDT, 2.28, m2 NS (Bolus) IV 500 mL, 500 Inactive ml/hr, 2017 [facility] Infuse Over: 1 hr, Route: IV, 500, Drug form: INJ, ONCE, Priority: STAT, Dosing Weight 112.443 kg, Start date: 06/16/17 15:59:00 HARNESS RIGGER, Stop date: 06/16/17 15:59:00 HARNESS RIGGER Omnipaque 350 Notes: (same Inactive [facility]able as:[facility] WASTE: F/P - Black; E - Sorbent Green Trash Bin Cholecalciferol 50,000 Inactive IntlUnit, 2017 [facility] Route: PO, Drug form: CAP, Q7D, Dosing Weight 112.443, kg, Start date: 06/16/17 14:00:00 HARNESS RIGGER, Duration: 30 day, Stop date: 07/14/17 9:00:00 CDT Albuterol 0.833 Notes: (Same No Longer H MG/ML / as: Duoneb) Active 2017 [facility] Ipratropium [place] 0.167 MG/ML Inhalant Solution [DuoNeb] oxyCODONE 15 mg 15 mg = 1 Active oral tablet tab, PO, 2017 [facility] Q12H, PRN Pain, 0 Refill(s) Cholecalciferol 50,000 No Longer 93384 UNT Oral IntlUnit = 1 Active 2017 [place] Capsule cap, PO, [Decara] Q7D, 0 Refill(s) 24 HR 50 mg = 1 Active [facility]af[facility] tab, [facility] Extended Daily, # 30 Release Tablet tab, 0 [Pristiq] Refill(s) pramipexole 0.5 0.5 mg = 1 Active 03/10/ [facility] mg oral tablet tab, PO, 2017 [facility] Bedtime, # 30 tab, 1 Refill(s) Ibuprofen 200 400 mg = 2 No Longer MG Oral Tablet tab, PO, Active 2017 [facility] t [Advil] Q4H, PRN Pain, # 120 tab, 0 Refill(s) Melatonin 5 mg 5 mg = 1 Active oral tablet tab, PO, 2017 [facility] Bedtime, PRN for insomnia, # 60 tab, 0 Refill(s) Oxymetazoline 2 spray, No Longer hydrochloride NASAL, Q12H, Active 2017 [facility] 0.5 MG/ML Nasal # 15 ml, 0 [place] [Afrin] Refill(s) Docusate Sodium 100 mg = 1 Active 100 MG Oral cap, PO, 2017 [facility] Capsule Q12H, # 60 [Colace] cap, 0 Refill(s) temazepam 15 mg 15 mg = 1 No Longer oral capsule cap, PO, Active 2017 [facility] Bedtime, PRN Sleep, # 14 tab, 0 Refill(s) Hydrochlorothia 1 tab, PO, No Longer zide 12.5 MG / Daily, # 30 Active 2017 [facility] Losartan tab, 0 Potassium 100 Refill(s) MG Oral Tablet Betamethasone 1 appl, TOP, No Longer 0.5 MG/ML / BID, PRN Active 2017 [facility] Clotrimazole 10 Itching, # MG/ML Topical 15 gm, 0 Cream Refill(s) Icy Hot PM 100.4 F, 0 Active 0.025% topical Refill(s) 2017 [facility] film Unknown Home See No Longer Medication Instructions Active 2017 [facility] , ZzzQuil hot patches, Refill(s) 0 Lidocaine 0.04 1 patch, Inactive MG/MG Medicated TOP, TID, 0 2017 [place] Patch Refill(s) Notes: (Same Inactive as: 2017) "Do Not Crush" With food and full glass of water Potassium Notes: (Same Inactive Chloride as: 2017) "Do Not Crush" With food and full glass of water Ondansetron Notes: (Same No Longer as: Zofran) Active 2017 [facility] MEDICATION WASTE Product Size: 4 mg Product Wasted: ___ mg Acetaminophen Notes: Do No Longer not exceed [address] [place] [address] gm/day. (Same as: Tylenol) Calcium 500 mL, 500 Inactive Chloride 0.0014 ml/hr, 2017 [facility] t MEQ/ML / Infuse Over: Potassium 1 hr, Route: Chloride 0.004 IV, 500, MEQ/ML / Sodium Drug form: Chloride 0.103 INJ, ONCE, MEQ/ML / Sodium Priority: Lactate 0.028 STAT, Dosing MEQ/ML Weight Injectable 106.818 kg, Solution Start date: 06/15/17 22:02:00 HARNESS RIGGER, Stop date: 06/15/17 22:02:00 HARNESS RIGGER Tylenol Notes: Do Inactive not exceed 4 2017 [facility] gm/day. (Same as: Tylenol) Calcium 500 mL, 500 Inactive Chloride 0.0014 ml/hr, 2017 [facility] t MEQ/ML / Infuse Over: Potassium 1 hr, Route: Chloride 0.004 IV, 500, MEQ/ML / Sodium Drug form: Chloride 0.103 INJ, ONCE, MEQ/ML / Sodium Priority: Lactate 0.028 STAT, Dosing MEQ/ML Weight Injectable 106.818 kg, Solution Start date: 06/15/17 20:30:00 HARNESS RIGGER, Stop date: 06/15/17 20:30:00 HARNESS RIGGER Ondansetron 4 4 mg = 1 Active Medica l MG Oral Tablet tab, PO, 2018 Group [Zofran] Q6H, PRN Nausea/Vomit ing, # 60 tab, 0 Refill(s), Pharmacy: [facility] [id number] pregabalin 225 225 mg = 1 Active Med ical MG Oral Capsule cap, PO, 2018 Group [Lyrica] BID, # 60 cap, 3 Refill(s) levothyroxine See Active Medical 112 mcg (0.112 Instructions 2018 Grou p mg) oral tablet , TAKE 1 TABLET BY MOUTH DAILY, # 90 tab, 1 Refill(s), Pharmacy: [facility] [id number] Hydrochlorothia 1 tab, PO, Active Me dical zide 12.5 MG / Daily, # 90 2018 Group Losartan tab, 1 Potassium 100 Refill(s), MG Oral Tablet Pharmacy: [facility] [id number] Betamethasone 1 appl, TOP, No Longer Medical 0.5 MG/ML / BID, # 45 Active 2018 Group Clotrimazole 10 gm, 1 MG/ML Topical Refill(s), Cream Pharmacy: [facility] [id number] hydrochlorothia 1 tab(s) orally Active 12.5 mg-100 mg [facility] 05/17/ eCW: Rashmi zide-losartan orally once a 2017 [facility] aditya day Acetaminophen Notes: Do Inactive Orth o 325 MG / not exceed 2015 [facility] Hydrocodone 4gm/day of Bitartrate 10 acetaminophe MG Oral Tablet n. (Same [[place] 10/325] as: [place] 325/10) Saline Flush Notes: Same No Longer Or tho 0.9% as: BD Active 2015 [facility] Posiflush Sterile Lactated 1,000 mL, No Longer Ortho Ringers 1,000 Rate: 100 Active 2016 [facility] e mL ml/hr, Infuse over: 10 hr, Route: IV, Dosing Weight 109.091 kg, Total Volume: 1,000, Start date: 02/03/16 7:17:00 CDT, Duration: 30 day, Stop date: 03/04/16 7:16:00 HARNESS RIGGER Lyrica 1 cap(s) orally Active 225 mg orally [facility] 01/02/ eCW: Roshan e 2 times a day 2015 [facility] ergocalciferol 1 cap(s) orally Active 50,000 intl Ileana 01/02/ eCW: Rashmi units orally 2016 [facility] once a week clotrimazole 1 noy applied Active 1% applied Ileana 01/02/ eCW: Roshan e topical topically topically 2 2015 [facility] times a day Vigamox 1 gtt in each Active 0.5% in each [place] 10/03/ eCW: Rashmi affected affected eye 2 2015 [facility] eye times a day PrednisoLONE Na 1 gtt in each Active 0.25% sodium Ileana 10/03/ eCW : Rashmi Phosphate-Na affected phosphate-10% 2015 [facility] aditya Sulfacetamide eye in each affected eye every 6 hours Lyrica 1 cap(s) orally Active 225 mg orally [place] 09/07/ eCW: Rashmi bid 2015 [facility] hydrochlorothia 1 tab(s) orally Active 12.5 mg-100 mg Davis / eCW: Rashmi zide-losartan orally once a 2015 [facility] aditya day Lyrica 1 cap(s) orally Active 225 mg orally [place] 03/01/ eCW: Rashmi bid 2014 [facility] Levaquin 1 tab(s) orally Active 500 mg orally [place] 02/10/ eCW: Roshan e every 24 hours 2014 [facility] ofloxacin 2 gtt in each Active 0.3% in each [facility] 01/04/ eCW: Rashmi ophthalmic affected affected eye 4 2014 [facility]aval eta eye times a day Betamethasone-C 1 noy applied Active 0.05%-1% [facility] 11/17/ eCW: Evangelina berry lotrimazole topically applied 2014 [facility] topically 2 times a day Montelukast 1 tab(s) orally Active 10 mg orally Davis 07/06/ eCW: Brigid ose Sodium once a day (in 2014 [facility] the evening) benzonatate 1 cap(s) orally Active 200 mg orally [facility] 06/22/ eCW: Rashmi 3 times a day 2014 [facility] ProAir HFA 2 puff(s) inhaled Active CFC free 90 [facility] 06/22/ eCW: Evangelina berry mcg/inh 2014 [facility] inhaled 4 times a day Betamethasone-C 1 noy applied Active 0.05%-1% [facility] 03/23/ eCW: Evangelina berry lotrimazole topically applied 2013 [facility] topically 2 times a day zolpidem 1 tab(s) orally Active 10 mg orally [facility] 02/04/ eCW: Rashmi once a day (at 2013 [facility] bedtime) Vitamin D3 1 cap(s) orally Active 50,000 intl [place] 12/18/ eCW: Roshan e units orally 2013 [facility] once a week Lyrica 1 cap(s) orally Active 225 mg orally [place] 12/04/ eCW: Rashmi tid 2013 [facility] IBANDRONATE Take 1 by Active Medical SODIUM 150 MG mouth 2013 Group TABS monthly for osteoporosis ZOLPIDEM Take 1 by Active Medical TARTRATE ER mouth every 2013 Group 12.5 MG CR-TABS night to sleep HYDROCODONE-DIEGO Take 1 by Active Med ical TAMINOPHEN mouth ass 2013 Group 10-325 MG TABS needed for pain ONDANSETRON HCL Take 1 by Active Med ical 4 MG TABS mouth as 2013 Group needed for nausea LIDOCAINE 5 % use as Active Medical PTCH needed for 2013 Group pain COLACE 50 MG take 3 pills Active Med ical CAPS po bid prn 2013 Group constipation ANUSOL-HC 2.5 % apply up to Active M edical CREA 3-4 times a 2013 Group day ZOLPIDEM Take 1 by Active Medical TARTRATE ER mouth every 2013 Group 12.5 MG CR-TABS night to sleep HYDROCODONE-DIEGO Take 1 by Active Med ical TAMINOPHEN mouth ass 2013 Group 10-325 MG TABS needed for pain ONDANSETRON HCL Take 1 by Active Med ical 4 MG TABS mouth as 2013 Group needed for nausea LIDOCAINE 5 % use as Active Medical PTCH needed for 2013 Group pain COLACE 50 MG take 3 pills Active Med ical CAPS po bid prn 2013 Group constipation CYANOCOBALAMIN 1 ml Active Medica l 1000 MCG/ML INJ injected 2013 Group SOLN subcutaneous ly monthly. VITAMIN D Take 1 No Longer Medical (ERGOCALCIFEROL capsule by Active 2013 Group ) [id number] UNIT mouth every CAPS week for 12 weeks FENOFIBRATE 160 1 tablet Active Medi jose luis MG TABS daily stop 2013 Group simvastatin FENOFIBRATE 160 1 tablet Active Medi jose luis MG TABS daily stop 2013 Group simvastatin GLUCOTROL XL 5 1 tablet No Longer Med ical MG TB24 daily in Active 2013 Group ams. BUTRANS 10 No Longer Medical MCG/HR PTWK Active 2013 Group LYRICA 225 MG 2 caps po q Active Med ical CAPS day 2013 Group BONIVA 150 MG 1 PO every No Longer Me dical TABS month. Give Active 2013 Group with water 60 minutes before first food/drink/m ed. Avoid laying down for 60 minutes LYRICA 225 MG 2 caps po q Active Med ical CAPS 2013 Group BONIVA 150 MG 1 PO every No Longer Me dical TABS . Give Active 2013 Group with water 60 minutes before first food/drink/m ed. Avoid laying down for 60 minutes LYRICA 225 MG 1 po tid No Longer Medi jose luis CAPS Active 2012 Group LYRICA 225 MG 1 po tid No Longer Medi jose luis CAPS Active 2012 Group ZOLPIDEM TAKE ONE No Longer Medical TARTRATE ER TABLET BY Active 2012 Group 12.5 MG CR-TABS MOUTH EVERY NIGHT AT BEDTIME ZOLPIDEM TAKE ONE No Longer Medical TARTRATE ER TABLET BY Active 2012 Group 12.5 MG CR-TABS MOUTH EVERY NIGHT AT BEDTIME TRAMADOL HCL 50 2 tab po tid Active Medical MG TABS 2012 Group TRAMADOL HCL 50 2 tab po tid Active Medical MG TABS 2012 Group TRAMADOL HCL 50 2 tab po tid Active Medical MG TABS 2012 Group VITAMIN D3 [place] [address] UNIT CAPS qweekly for Active 2012 Grou p 12 weeks MIRTAZAPINE 30 1 tab po qd Active Me dical MG TBDP 2012 Group TOPICORT CRE APPLY TO Active Medical 0.25% RASH BID 2012 Group ZOLPIDEM 1 po qhs No Longer Medical TARTRATE ER Active 2012 Group 12.5 MG CR-TABS ZOLPIDEM 1 po qhs No Longer Medical TARTRATE ER Active 2012 Group 12.5 MG CR-TABS CYCLOBENZAPRINE 1 po qd Active Medic al HCL 10 MG TABS 2011 Group CYCLOBENZAPRINE 1 po qd Active Medic al HCL 10 MG TABS 2011 Group ERGOCALCIFEROL 1 q week No Longer Med ical 65368 UNIT CAPS Active 2010 Group CYCLOBENZAPRINE 1 qd No Longer 12/14/ MH Med ical HCL 10 MG TABS Active 2010 Group CYCLOBENZAPRINE 1 qd No Longer MH Med ical HCL 10 MG TABS Active 2010 Group FLEXERIL TAB 1 po qhs No Longer 12/27/ MH Medic al 10MG Active 2010 Group VIMOVO 500-20 1 tab po bid No Longer 12/15/ MH Medical MG TBEC Active 2010 Group CIPRO 500 MG pt to take 1 No Longer MH M edical TABS tab every 12 Active 2010 Group hrs CIPRO 500 MG pt to take 1 No Longer MH M edical TABS tab every 12 Active 2010 Group hrs VIMOVO 500-20 1 tab po bid Inactive M edical MG TBEC 2010 Group SKELAXIN 800 MG 1 po q bid Inactive Medical TABS 2010 Group LOTRIMIN AF apply bid No Longer 06/27/ Medic al CREA Active 2010 Group SKELAXIN 800 MG 1 po q bid Inactive MH Medical TABS 2010 Group SKELAXIN 800 MG 1 po q bid Inactive MH Medical TABS 2010 Group ABILIFY 15 MG 1 qd Inactive MH Medica l TABS 2010 Group CIPRO 500 MG 1 bid Inactive MH Medical TABS 2010 Group ABILIFY 15 MG 1 qd Inactive Medica l TABS 2010 Group CIPRO 500 MG 1 bid Inactive Medical TABS 2010 Group HYDROCODONE-DIEGO 2 tablets No Longer M edical TAMINOPHEN every 6 hrs Active 2010 Group 5-500 MG TABS prn pain HYDROCODONE-DIEGO 2 tablets No Longer M edical TAMINOPHEN every 6 hrs Active 2010 Group 5-500 MG TABS prn pain METAXALONE 800 bid No Longer MH Medi jose luis MG TABS Active 2010 Group METAXALONE 800 bid No Longer MH Medi jose luis MG TABS Active 2010 Group MEDROL (MIREILLE) Take as No Longer MH Medica l TABS directed Active 2009 Group with food x 6 days CELEBREX 200 MG 1 qd Inactive MH Medi jose luis CAPS 2009 Group CELEBREX 200 MG 1 qd Inactive Medi jose luis CAPS 2009 Group CELEBREX 200 MG 1 qd Inactive 12/29/ MH Medi jose luis CAPS 2009 Group LEVOTHYROXINE 1 qd Active Medical SODIUM 100 MCG 2009 Group TABS CALTRATE 600+D Active Medica l PLUS TABS 2009 Group PRISTIQ 50 MG 1 qd Active Medical TB24 2009 Group LORAZEPAM 1 MG 2 to 3 as Active Medi jose luis TABS needed 2009 Group ERGOCALCIFEROL 1 tab po q No Longer M edical 14503 UNIT CAPS wk Active 2009 Group VITAMIN D3 1 tab a day No Longer Medi jose luis 2,000 UNIT/ML Active 2009 Group LIQD (CHOLECALCIFERO L) LEVOTHYROXINE 1 qd Active Medical SODIUM 100 MCG 2009 Group TABS PRISTIQ 50 MG 1 qd Active Medical TB24 2009 Group LORAZEPAM 0.5 Take 1 by Active Medic al MG TABS mouth as 2009 Group needed for anxiety LEVOTHYROXINE 1 qd Active Medical SODIUM 100 MCG 2009 Group TABS LORAZEPAM 0.5 Take 1 by Active Medic al MG TABS mouth as 2009 Group needed for anxiety levothyroxine 1 tab(s) orally Active 100 mcg (0.1 Ileana eCW: Rashmi mg) orally Bria once a day Lyrica 1 cap(s) orally Active 225 mg orally [place] eCW: Rashmi bid [facility] fenofibrate 1 tab(s) orally Active 54 mg orally Ileana eCW: J ose once a day [facility] lorazepam 1 tab(s) orally Active 1 mg orally 3 [facility]ria eCW: J ose times a day [facility] Vitamin D3 1 cap(s) orally Active 50,000 intl Ileana eCW: Roshan e units orally Bria once a week tramadol 2 tab(s) orally Active 50 mg orally [place] eCW: Rashmi tid [facility] mirtazapine 1 tab(s) orally Active 30 mg orally Ileana eCW: J ose once a day (at Bria bedtime) per psych cyclobenzaprine 1 tab(s) orally Active 10 mg orally 1 [place] eCW: Rashmi times a day [facility] ibandronate 1 tab(s) orally Active 150 mg orally Ileana eCW: Rashmi once a month [facility] zolpidem 1 tab(s) orally Active 10 mg orally Ileana eCW: Rashmi once a day (at [facility]ria bedtime) Pristiq 1 tab(s) orally Active 50 mg orally Ileana eCW: Rashmi once a day per [facility]ria psych lidocaine 0.5% - - Active 5% - as needed Ileana eC W: Rashmi topical cream per neuro [facility] Butrans 1 patch transderma Active 20 mcg/hr Ileana eCW: Rashmi lly transdermally Bria once a week neuro benzonatate 1 cap(s) orally Active 200 mg orally [place] eCW: Rashmi 3 times a day [facility] clonidine 1 tab(s) orally Active 0.2 mg orally Ileana eCW: Evangelina se bid [facility] hydrochlorothia 1 tab(s) orally Active 12.5 mg-100 mg Ileana eCW: Rashmi zide-losartan orally once a Za day Allergies, Adverse Reactions, Alerts Substance Category Reaction Severity Reaction Status Date Comments S ource type Reported CODEINE Drug CODEINE Med ical allergy 0 Group SULFA Drug SULFA Med ical allergy 0 Group codeine<urbina Assertion N/V Drug Active Data M H OPID p>1</sup> allergy 0 migrated [place] [facility] on 06/09/15. Originally documented as CODEINE. sulfa Assertion hives Drug Active Data MH O PID drugs<sup> allergy 0 migrated [place] 2</sup> from [facility] on 11/05/14. Originally documented as SULFA. sulfa Assertion hives Drug Active Data MH M edical drugs<sup> allergy 0 migrated Grou p 1</sup> from [facility] on 11/05/14. Originally documented as SULFA. codeine<urbina Assertion N/V Drug Active Data M H Medical p>2</sup> allergy 0 migrated Group from [facility] on 06/09/15. Originally documented as CODEINE. Sulfa Adverse hives Adverse Active eCW: Brigid oslay Reaction Reaction 6 [place] codeine Adverse vomiting Adverse Active eCW: Rashmi Reaction Reaction 6 [place] Codeine Univer sity 8 Place Sulfa Univer sity Drugs [address] Morphine Unive rsity [address] Place acetaminop Assertion Drug Active Medical hen-codein allergy Group e sulfa Assertion Drug Active OPI D drugs allergy [place] morphine Assertion Drug Active Me dical allergy Group Immunizations Immunization Date Site Status Last Updated Comments Sour ce Given influenza virus Left completed [facility] Result Co mment: Patient was stable before and after the vaccine was given. Medical vaccine, 9 Deltoid Patient waited 15 minutes in waiting area and did not show any adverse reactions. Group inactivated<sup> 1</sup> influenza virus Left completed [facility] Result Co mment: Patient was stable before and after the vaccine was given. Medical vaccine, 8 Deltoid Patient waited 15 minutes in waiting area and did not show any adverse reactions. Group, inactivated<sup> TIR R, OPID 1</sup> [place], [facility] influenza virus Left completed [place] Result Co mment: Patient was stable before and after the vaccine was given. Medical vaccine, 8 Deltoid Patient waited 15 minutes in waiting area and did not show any adverse reactions. Group inactivated<sup> 2</sup> influenza virus completed Lakhani M edical vaccine, 7 Group, inactivated TIRR, OPID [place], [facility] influenza virus Right completed Jose M edical vaccine, 6 Deltoid Group, inactivated TIRR, OPID [facility], [facility] influenza virus Right completed Jose M edical vaccine, 6 Deltoid Group, inactivated OPID [place] pneumococcal Left completed [place] OPID 23-valent 6 Deltoid [facility] vaccine pneumococcal Left completed [place] Medi jose luis 23-valent 6 Deltoid Group, vaccine TIRR, OP ID [place], [facility] Influenza (MCR) completed eCW: Rashmi Fraser Results Order Name Results Value Reference Date Interpretation Comments Chel rce Range ELECTROLYT AGAP 11.7 10.0 - 09/29 ES 20.0 /2019 [place] ELECTROLYT eGFR 51 09/29 Result ES /2018 Comment: [facility] eGFR is calculated using the CKD-EPI formula. In most young, healthy individuals the eGFR will be >90 mL/min/1.73m2 . The eGFR declines with age. An eGFR of 60-89 may be normal in some populations, particularly the elderly, for whom the CKD-EPI formula has not been extensively validated. Use of the eGFR is not recommended in the following populations:< br/>
Jimena viduals with unstable creatinine concentration s, including patients and those with serious co-morbid conditions.<b r/>
Patie nts with extremes in muscle mass or diet.

The data above are obtained from the National Kidney Disease Education Program (NKDEP) which additionally recommends that when the eGFR is used in patients with extremes of body mass index for purposes of drug dosing, the eGFR should be multiplied by the estimated BMI. ELECTROLYT Sodium Lvl 141 135 - 145 09/29 [facility] ELECTROLYT Potassium 3.7 3.5 - 5.1 09/29 ES Lvl [facility] ELECTROLYT Creatinine 1.10 0.50 - 09/29 ES Lvl 1.40 /2018 [facility] ELECTROLYT Calcium Lvl 9.4 8.5 - 10.5 09/29 [facility] ELECTROLYT CO2 32 24 - 32 09/29 [facility] ELECTROLYT Chloride Lvl 101 95 - 109 09/29 [facility] ELECTROLYT BUN 23 7 - 22 09/29 [facility] ELECTROLYT Glucose Lvl 94 70 - 99 09/29 [facility] HEMATOLOGY Platelet 231 133 - 450 09/29 [facility] HEMATOLOGY RDW 15.6 11.5 - 09/29 MH 14. [facility] HEMATOLOGY MPV 8.7 7.4 - 10.4 09/29 [facility] HEMATOLOGY MCH 25.9 27.0 - 09/29 MH 31.0 [facility] HEMATOLOGY MCV 78.8 80.0 - 09/29 98.0 [facility] HEMATOLOGY MCHC 32.9 32.0 - 09/29 MH 36.0 [facility] HEMATOLOGY Hgb 11.8 12.0 - 09/29 MH 16.0 [facility] HEMATOLOGY Hct 35.8 36.0 - 09/29 MH 48.0 [facility] HEMATOLOGY WBC 6.2 3.7 - 10.4 09/29 [facility] HEMATOLOGY RBC 4.55 4.20 - 09/29 MH 5.40 [facility] HEMATOLOGY Microcyte 1+ None Seen 09/29 *ABN* /2018 [facility] (09/29/18 9:52 AM) HEMATOLOGY Basophils # 0.0 0.0 - 0.2 09/29 [facility] HEMATOLOGY Eosinophils 0.3 0.0 - 0.5 09/29 MH # /2018 [facility] HEMATOLOGY Monocytes # 0.3 0.0 - 0.8 09/29 [facility] HEMATOLOGY Segs 58.2 45.0 - 09/29 MH 75.0 [facility] HEMATOLOGY Lymphocytes 1.9 1.0 - 5.5 09/29 MH # /2018 [facility] HEMATOLOGY Neutrophils 3.6 1.5 - 8.1 09/29 # [facility] HEMATOLOGY Basophils 0.8 0.0 - 1.0 09/29 [facility] HEMATOLOGY Eosinophils 4.6 0.0 - 4.0 09/29 [facility] HEMATOLOGY Lymphocytes 31.1 20.0 - 09/29 MH 40.0 [facility] HEMATOLOGY Monocytes 5.3 2.0 - 12.0 09/29 [facility] CHEM PANEL Glucose Lvl 86 70 - 99 09/28 [facility] CHEM PANEL eGFR 38 09/28 Result Comment: [facility] eGFR is calculated using the CKD-EPI formula. In most young, healthy individuals the eGFR will be >90 mL/min/1.73m2 . The eGFR declines with age. An eGFR of 60-89 may be normal in some populations, particularly the elderly, for whom the CKD-EPI formula has not been extensively validated. Use of the eGFR is not recommended in the following populations:< br/>
Jimena viduals with unstable creatinine concentration s, including patients and those with serious co-morbid conditions.<b r/>
Patie nts with extremes in muscle mass or diet.

The data above are obtained from the National Kidney Disease Education Program (NKDEP) which additionally recommends that when the eGFR is used in patients with extremes of body mass index for purposes of drug dosing, the eGFR should be multiplied by the estimated BMI. CHEM PANEL Calcium Lvl 9.7 8.5 - 10.5 09/28 [facility] CHEM PANEL CO2 28 24 - 32 09/28 [facility] CHEM PANEL Chloride Lvl 103 95 - 109 09/28 [facility] CHEM PANEL Potassium 4.3 3.5 - 5.1 09/28 Lvl /2018 [facility] CHEM PANEL Sodium Lvl 138 135 - 145 09/28 [facility] CHEM PANEL BUN 22 7 - 22 09/28 [facility] CHEM PANEL Creatinine 1.40 0.50 - 09/28 MH Lvl 1.40 /2018 [facility] CHEM PANEL AGAP 11.3 10.0 - 09/28 MH 20.0 [facility] HEMATOLOGY Lymphocytes 1.8 1.0 - 5.5 09/28 MH # /2018 [facility] HEMATOLOGY Monocytes # 0.3 0.0 - 0.8 09/28 [facility] HEMATOLOGY Eosinophils 0.2 0.0 - 0.5 09/28 # /2018 [facility] HEMATOLOGY Neutrophils 4.5 1.5 - 8.1 09/28 # [facility] HEMATOLOGY Eosinophils 2.8 0.0 - 4.0 09/28 [facility] HEMATOLOGY Basophils 0.7 0.0 - 1.0 09/28 [facility] HEMATOLOGY Segs 65.4 45.0 - 09/28 MH 75.0 [facility] HEMATOLOGY Lymphocytes 26.5 20.0 - 09/28 MH 40.0 [facility] HEMATOLOGY Monocytes 4.6 2.0 - 12.0 09/28 [facility] HEMATOLOGY RBC 4.73 4.20 - 09/28 MH 5.40 [facility] HEMATOLOGY Hgb 12.4 12.0 - 09/28 MH 16.0 [facility] HEMATOLOGY WBC 6.8 3.7 - 10.4 09/28 [facility] HEMATOLOGY RDW 15.6 11.5 - 09/28 MH 14.5 [facility] HEMATOLOGY MCH 26.1 27.0 - 09/28 31.0 [facility] HEMATOLOGY MCHC 32.7 32.0 - 09/28 36.0 /2019 [facility] HEMATOLOGY Hct 37.8 36.0 - 09/28 48.0 2019 [facility] HEMATOLOGY MCV 79.8 80.0 - 09/28 98.0 [facility] HEMATOLOGY Platelet 225 133 - 450 09/28 [facility] HEMATOLOGY MPV 8.7 7.4 - 10.4 09/28 [facility] CHEM PANEL Lactic Acid 1.1 0.5 - 2.2 09/26 Lv [facility] CHEM PANEL eGFR 75 09/23 Result Comment: The [facility] eGFR is calculated using the CKD-EPI formula. In most young, healthy individuals the eGFR will be >90 mL/min/1.73m2 . The eGFR declines with age. An eGFR of 60-89 may be normal in some populations, particularly the elderly, for whom the CKD-EPI formula has not been extensively validated. Use of the eGFR is not recommended in the following populations:< br/>
Jimena viduals with unstable creatinine concentration s, including patients and those with serious co-morbid conditions.<b r/>
Patie nts with extremes in muscle mass or diet.

The data above are obtained from the National Kidney Disease Education Program (NKDEP) which additionally recommends that when the eGFR is used in patients with extremes of body mass index for purposes of drug dosing, the eGFR should be multiplied by the estimated BMI. CHEM PANEL Calcium Lvl 8.9 8.5 - 10.5 09/23 [facility] CHEM PANEL CO2 29 24 - 32 09/23 [facility] CHEM PANEL Sodium Lvl 140 135 - 145 09/23 [facility] CHEM PANEL Chloride Lvl 105 95 - 109 09/23 [facility] CHEM PANEL Potassium 4.1 3.5 - 5.1 09/23 Lvl [facility] CHEM PANEL Creatinine 0.80 0.50 - 09/23 Lvl 1.40 [facility] CHEM PANEL BUN 11 7 - 22 09/23 [facility] CHEM PANEL Glucose Lvl 84 70 - 99 09/23 [facility] CHEM PANEL AGAP 10.1 10.0 - 09/23 20.0 [facility] HEMATOLOGY Monocytes # 0.4 0.0 - 0.8 09/23 [facility] HEMATOLOGY Microcyte 1+ None Seen 09/23 *ABN* /2018 [facility] (09/23/18 5:02 AM) HEMATOLOGY Basophils # 0.0 0.0 - 0.2 09/23 [facility] HEMATOLOGY Eosinophils 0.2 0.0 - 0.5 09/23 # [facility] HEMATOLOGY Basophils 0.5 0.0 - 1.0 09/23 [facility] HEMATOLOGY Eosinophils 2.5 0.0 - 4.0 09/23 [facility] HEMATOLOGY Monocytes 5.7 2.0 - 12.0 09/23 /2018 [facility] HEMATOLOGY Lymphocytes 34.4 20.0 - 09/23 MH 40.0 /2019 [facility] HEMATOLOGY Lymphocytes 2.1 1.0 - 5.5 09/23 MH # /2019 [facility] HEMATOLOGY Segs 56.9 45.0 - 09/23 MH 75.0 /2018 [facility] HEMATOLOGY Neutrophils 3.6 1.5 - 8.1 09/23 MH # /2018 [facility] HEMATOLOGY MCHC 33.2 32.0 - 09/23 MH 36.0 /2018 [facility] HEMATOLOGY RDW 15.1 11.5 - 09/23 MH 14.5 /2018 [facility] HEMATOLOGY MCV 78.8 80.0 - 09/23 MH 98.0 /2018 [facility] HEMATOLOGY MCH 26.1 27.0 - 09/23 MH 31.0 /2018 [facility] HEMATOLOGY Hct 30.7 36.0 - 09/23 MH 48.0 /2018 [facility] HEMATOLOGY Hgb 10.2 12.0 - 09/23 MH 16.0 /2018 [facility] WBC 6.2 3.7 - 10.4 09/23 /2018 [facility] HEMATOLOGY RBC 3.90 4.20 - 09/23 MH 5.40 /2018 [facility] HEMATOLOGY MPV 8.0 7.4 - 10.4 09/23 /2018 [facility] Platelet 260 133 - 450 09/23 /2018 [facility] BLOOD BANK ABO/Rh O POS 09/22 RESULTS /2018 [facility] BLOOD BANK Antibody Negative 09/22 RESULTS Scrn (09/22/18 2:14 PM) /2018 [facility] CHEM PANEL Bili Total 0.2 0.2 - 1.3 09/22 [facility] CHEM PANEL Alk Phos 92 39 - 136 09/22 [facility] CHEM PANEL Total 7.4 6.4 - 8.4 09/22 Protein [facility] CHEM PANEL Albumin Lvl 2.8 3.5 - 5.0 09/22 [facility] CHEM PANEL ALT 15 0 - 65 09/22 [facility] CHEM PANEL AST 20 0 - 37 09/22 [facility] CHEM PANEL Globulin 4.6 2.7 - 4.2 09/22 [facility] CHEM PANEL B/C Ratio 12 6 - 25 09/22 [facility] CHEM PANEL A/G Ratio 0.6 0.7 - 1.6 09/22 [facility] HEMATOLOGY PT 14.5 12.0 - 09/22 MH 14.7 /2019 [facility] HEMATOLOGY INR 1.15 0.85 - 09/22 MH 1.17 /2019 [facility] HEMATOLOGY PTT 41.5 22.9 - / MH 35.8 /2019 [facility] HEMATOLOGY Basophils # 0.0 0.0 - 0.2 09/22 [facility] URINE AND UA Color Janis 01/10 STOOL [facility] URINE AND UA <=1.0 0.1 - 1.0 01/10 STOOL Urobilinogen mg/dL [facility] URINE AND UA Spec Grav 1.045 <=1.030 01/10 [facility] URINE AND UA pH 5.0 5.0 - 8.0 01/10 STOOL [facility] URINE AND UA Protein 100 mg/dL Negative 01/10 [facility] mg/dL [facility] URINE AND UA Glucose Negative Negative 01/10 [facility] mg/dL mg/dL [facility] URINE AND UA Mucus Few /LPF None Seen 01/10 STOOL /LPF [facility] URINE AND UA Bacteria Moderate None Seen 01/10 STOOL /HPF /HPF /2017 [facility] URINE AND UA Bili Negative Negative 01/10 STOOL *NA* /2017 [facility] (01/10/18 12:58 PM) URINE AND UA Ketones Negative Negative 01/10 STOOL mg/dL mg/dL [facility] URINE AND UA Blood Negative Negative 01/10 STOOL (01/10/18 12:58 PM) [facility] URINE AND UA Hyal Cast 4 0 - 2 01/10 [facility] URINE AND UA Nitrite Positive Negative 01/10 STOOL *ABN* [facility] (01/10/18 12:58 PM) URINE AND UA Leuk Est Large Negative 01/10 STOOL *ABN* /2017 [facility] (01/10/18 12:58 PM) URINE AND UA Sq Epi Many /LPF Few /LPF 01/10 STOOL [facility] URINE AND UA RBC 3 0 - 2 01/10 [facility] URINE AND UA WBC >182 0 - 5 01/10 [facility] URINE AND UA Turbidity Slight Clear 01/10 STOOL *ABN* [facility] (01/10/18 12:58 PM) CHEM PANEL Lipase Lvl 56 73 - 393 01/10 [facility] CHEM PANEL A/G Ratio 0.7 0.7 - 1.6 01/10 [facility] CHEM PANEL AGAP 10.6 10.0 - 10 MH 20.0 /2018 [facility] CHEM PANEL Globulin 4.8 2.7 - 4.2 01/10 [facility] CHEM PANEL B/C Ratio 6 6 - 25 01/10 [facility] CHEM PANEL eGFR 42 01/10 [facility] Comment: The [facility] eGFR is calculated using the CKD-EPI formula. In most young, healthy individuals the eGFR will be >90 mL/min/1.73m2 . The eGFR declines with age. An eGFR of 60-89 may be normal in some populations, particularly the elderly, for whom the CKD-EPI formula has not been extensively validated. Use of the eGFR is not recommended in the following populations:< br/>
Jimena viduals with unstable creatinine concentration s, including patients and those with serious co-morbid conditions.<b r/>
Patie nts with extremes in muscle mass or diet.

The data above are obtained from the National Kidney Disease Education Program (NKDEP) which additionally recommends that when the eGFR is used in patients with extremes of body mass index for purposes of drug dosing, the eGFR should be multiplied by the estimated BMI. CHEM PANEL ASPARTATE 33 0 - 37 01/10 TRANSAMINASE [facility] CHEM PANEL Bili Total 0.5 0.2 - 1.3 01/10 [facility] CHEM PANEL Alk Phos 67 39 - 136 01/10 [facility] CHEM PANEL ALANINE 16 0 - 65 01/10 AMINOTRANS [facility] RASE CHEM PANEL Total 8.0 6.4 - 8.4 01/10 [facility] CHEM PANEL Albumin Lvl 3.2 3.5 - 5.0 01/10 [facility] CHEM PANEL Calcium Lvl 9.1 8.5 - 10.5 01/10 [facility] CHEM PANEL CO2 29 24 - 32 01/10 [facility] CHEM PANEL BUN 8 7 - 22 01/10 [facility] CHEM PANEL Creatinine 1.30 0.50 - 10 MH Lvl 1.40 /2017 [facility] CHEM PANEL Potassium 3.6 3.5 - 5.1 01/10 Lvl [facility] CHEM PANEL Chloride Lvl 102 95 - 109 01/10 [facility] CHEM PANEL Sodium Lvl 138 135 - 145 01/10 [facility] CHEM PANEL Glucose Lvl 106 70 - 99 01/10 [facility] HEMATOLOGY Platelet 189 133 - 450 01/10 [facility] HEMATOLOGY MPV 9.2 7.4 - 10.4 01/10 [facility] HEMATOLOGY RDW 15.2 11.5 - 01/10 14.5 [facility] HEMATOLOGY MCHC 31.5 32.0 - 01/10 36.0 [facility] HEMATOLOGY Hgb 11.9 12.0 - 01/10 16.0 [facility] HEMATOLOGY RBC 4.60 4.20 - 10 5.40 /2017 [facility] HEMATOLOGY WBC 6.4 3.7 - 10.4 01/10 [facility] HEMATOLOGY MCV 82.5 80.0 - 01/10 98.0 [facility] HEMATOLOGY Hct 37.9 36.0 - 01/10 48.0 [facility] HEMATOLOGY MCH 26.0 27.0 - 01/10 31.0 [facility] HEMATOLOGY Eosinophils 0.1 0.0 - 0.5 01/10 # /2017 [facility] HEMATOLOGY Monocytes # 0.4 0.0 - 0.8 01/10 [facility] HEMATOLOGY Lymphocytes 1.6 1.0 - 5.5 01/10 # [facility] HEMATOLOGY Basophils # 0.0 0.0 - 0.2 01/10 [facility] HEMATOLOGY Neutrophils 4.2 1.5 - 8.1 01/10 # [facility] HEMATOLOGY Basophils 0.7 0.0 - 1.0 01/10 [facility] HEMATOLOGY Segs 65.9 45.0 - 01/10 75.0 [facility] Lymphocytes 24.6 20.0 - 01/10 40.0 [facility] HEMATOLOGY Monocytes 6.8 2.0 - 12.0 01/10 [facility] HEMATOLOGY Eosinophils 2.0 0.0 - 4.0 01/10 [facility] MOLECULAR C difficile Negative Negative 06/17 DIAGNOSTIC DNA (06/17/17 12:02 PM) /2017 [facility] Folate Lvl 15.6 >=3.0 06/17 STUDY ng/mL /2017 [facility] CHEM PANEL VITAMIN B1 119.6 66.5 - 06/17 Result (THIAMINE) 200.0 /2018 Comment: [facility] WHOLE BLOOD
This test was developed and its performance characteristi cs
determ ined by [facility]. It has not been cleared or
approv ed by the Food and Drug Administratio n.
Perfor med At: [facility] [place]
[address], [place] [id number]< br/>Aicha Jolley MD Ph:[phone] CHEM PANEL Magnesium 2.2 1.8 - 2.4 06/17 [facility] CHEM PANEL eGFR 66 06/17 Result Comment: The [facility] eGFR is calculated using the CKD-EPI formula. In most young, healthy individuals the eGFR will be >90 mL/min/1.73m2 . The eGFR declines with age. An eGFR of 60-89 may be normal in some populations, particularly the elderly, for whom the CKD-EPI formula has not been extensively validated. Use of the eGFR is not recommended in the following populations:< br/>
Jimena viduals with unstable creatinine concentration s, including patients and those with serious co-morbid conditions.<b r/>
Patie nts with extremes in muscle mass or diet.

The data above are obtained from the National Kidney Disease Education Program (NKDEP) which additionally recommends that when the eGFR is used in patients with extremes of body mass index for purposes of drug dosing, the eGFR should be multiplied by the estimated BMI. CHEM PANEL ALT 9 0 - 65 06/17 [facility] CHEM PANEL Alk Phos 60 39 - 136 06/17 [facility] CHEM PANEL AST 25 0 - 37 06/17 [facility] CHEM PANEL Bili Total 0.5 0.2 - 1.3 06/17 [facility] CHEM PANEL Glucose Lvl 97 70 - 99 06/17 [facility] CHEM PANEL Sodium Lvl 140 135 - 145 06/17 [facility] CHEM PANEL Potassium 3.4 3.5 - 5.1 06/17 l [facility] CHEM PANEL BUN 12 7 - 22 06/17 [facility] CHEM PANEL Creatinine 0.90 0.50 - 06/17 Lvl 1.40 [facility] CHEM PANEL Chloride Lvl 101 95 - 109 06/17 [facility] CHEM PANEL Total 7.0 6.4 - 8.4 03/11 MH Protein /2017 [facility] CHEM PANEL Albumin Lvl 2.6 3.5 - 5.0 03 /2017 [facility] CHEM PANEL CO2 30 24 - 32 03 [facility] CHEM PANEL Calcium Lvl 8.3 8.5 - 10.5 06/17 [facility] CHEM PANEL AGAP 12.4 10.0 - 03/ MH 20.0 /2017 [facility] CHEM PANEL Globulin 4.4 2.7 - 4.2 06/17 [facility] CHEM PANEL A/G Ratio 0.6 0.7 - 1.6 06/17 [facility] CHEM PANEL B/C Ratio 13 6 - 25 06/17 [facility] HEMATOLOGY Segs-Bands # 5.7 1.5 - 8.1 06/17 [facility] HEMATOLOGY Eosinophils 1.5 0.0 - 4.0 06/17 [facility] HEMATOLOGY Lymphocytes 1.1 1.0 - 5.5 06/17 MH # /2017 [facility] HEMATOLOGY Basophils 0.3 0.0 - 1.0 06/17 [facility] HEMATOLOGY Monocytes # 0.4 0.0 - 0.8 06/17 [facility] HEMATOLOGY Eosinophils 0.1 0.0 - 0.5 06/17 MH # /2017 [facility] HEMATOLOGY Segs 78.4 45.0 - 06/17 75.0 /2017 [facility] HEMATOLOGY Lymphocytes 14.6 20.0 - 06/17 40.0 /2017 [facility] HEMATOLOGY Monocytes 5.2 2.0 - 12.0 06/17 [facility] HEMATOLOGY MPV 8.3 7.4 - 10.4 06/17 [facility] HEMATOLOGY WBC 7.3 3.7 - 10.4 06/17 [facility] HEMATOLOGY Hct 27.6 36.0 - 03 48.0 /2018 [facility] HEMATOLOGY RBC 3.43 4.20 - 03 5.40 /2017 [facility] HEMATOLOGY Hgb 9.3 12.0 - 03 16.0 /2017 [facility] HEMATOLOGY MCV 80.6 80.0 - 03 98.0 /2017 [facility] HEMATOLOGY RDW 15.4 11.5 - 03/ 14.5 /2017 [facility] HEMATOLOGY Platelet 208 133 - 450 03 [facility] HEMATOLOGY MCHC 33.5 32.0 - 03 36.0 /2017 [facility] HEMATOLOGY MCH 27.0 27.0 - 03/11 MH 31.0 [facility] ELECTROLYT CO2 33 24 - 32 06/16 ES /2017 [facility] ELECTROLYT Chloride Lvl 100 95 - 109 06/16 ES [facility] ELECTROLYT eGFR 52 06/[address] [facility] ES Comment: The [facility] eGFR is calculated using the CKD-EPI formula. In most young, healthy individuals the eGFR will be >90 mL/min/1.73m2 . The eGFR declines with age. An eGFR of 60-89 may be normal in some populations, particularly the elderly, for whom the CKD-EPI formula has not been extensively validated. Use of the eGFR is not recommended in the following populations:< br/>
Jimena viduals with unstable creatinine concentration s, including patients and those with serious co-morbid conditions.<b r/>
Patie nts with extremes in muscle mass or diet.

The data above are obtained from the National Kidney Disease Education Program (NKDEP) which additionally recommends that when the eGFR is used in patients with extremes of body mass index for purposes of drug dosing, the eGFR should be multiplied by the estimated BMI. ELECTROLYT Potassium 3.5 3.5 - 5.1 06/16 ES Lvl /2017 [facility] ELECTROLYT Sodium Lvl 139 135 - 145 06/16 ES [facility] ELECTROLYT AGAP 9.5 10.0 - 06/16 ES 20.0 [facility] ELECTROLYT Calcium Lvl 8.2 8.5 - 10.5 06/16 ES [facility] ELECTROLYT Creatinine 1.10 0.50 - 06/16 ES Lvl 1.40 /2017 [facility] ELECTROLYT BUN 11 7 - 22 06/16 ES [facility] ELECTROLYT Glucose Lvl 94 70 - 99 06/16 ES [facility] URINE AND UA Nitrite Negative Negative 06/16 STOOL (06/15/17 9:51 PM) [facility] st URINE AND UA Blood Negative Negative 06/16 STOOL (06/15/17 9:51 PM) [facility] st URINE AND UA Sq Epi Few /LPF Few /LPF 06/16 STOOL /2017 [facility] URINE AND UA Leuk Est Negative Negative 06/16 STOOL (06/15/17 9:51 PM) [facility] st URINE AND UA Bili Negative Negative 06/16 STOOL *NA* /2017 [facility] (06/15/17 9:51 PM) URINE AND UA Ketones Negative Negative 06/16 STOOL mg/dL mg/dL [facility] URINE AND UA Mucus Many /LPF None Seen 06/16 STOOL /LPF /2017 [facility] URINE AND UA RBC 1 0 - 2 06/16 STOOL [facility] URINE AND UA WBC 5 0 - 5 06/16 STOOL [facility] URINE AND UA <=1.0 0.1 - 1.0 06/16 STOOL Urobilinogen mg/dL [facility] URINE AND UA Color Dark Yellow Yellow 06/16 STOOL *NA* [facility] (06/15/17 9:51 PM) URINE AND UA Glucose Negative Negative 06/16 STOOL mg/dL mg/dL [facility] URINE AND UA pH 5.0 5.0 - 8.0 06/16 STOOL [facility] URINE AND UA Spec Grav 1.020 <=1.030 06/16 STOOL [facility] URINE AND UA Turbidity Slight Clear 06/16 STOOL *ABN* [facility] (06/15/17 9:51 PM) URINE AND UA Protein 30 mg/dL Negative 06/16 STOOL mg/dL [facility] CHEM PANEL Procalcitoni 0.06 0.00 - 06/16 n Lvl 0. [facility] CHEM PANEL eGFR 66 06/16 [facility] Comment: The [facility] eGFR is calculated using the CKD-EPI formula. In most young, healthy individuals the eGFR will be >90 mL/min/1.73m2 . The eGFR declines with age. An eGFR of 60-89 may be normal in some populations, particularly the elderly, for whom the CKD-EPI formula has not been extensively validated. Use of the eGFR is not recommended in the following populations:< br/>
Jimena viduals with unstable creatinine concentration s, including patients and those with serious co-morbid conditions.<b r/>
Patie nts with extremes in muscle mass or diet.

The data above are obtained from the National Kidney Disease Education Program (NKDEP) which additionally recommends that when the eGFR is used in patients with extremes of body mass index for purposes of drug dosing, the eGFR should be multiplied by the estimated BMI. CHEM PANEL CO2 36 24 - 32 06/16 [facility] CHEM PANEL Chloride Lvl 96 95 - 109 03/ [facility] CHEM PANEL Calcium Lvl 8.4 8.5 - 10.5 03 [facility] CHEM PANEL Potassium 3.4 3.5 - 5.1 03/10 MH Lvl /2017 [facility] CHEM PANEL Glucose Lvl 94 70 - 99 06/16 [facility] CHEM PANEL Sodium Lvl 136 135 - 145 03 [facility] CHEM PANEL BUN 8 7 - 22 03/ [facility] CHEM PANEL Creatinine 0.90 0.50 - 03/10 Lvl 1.40 /2017 [facility] CHEM PANEL AGAP 7.4 10.0 - 03 20.0 /2017 [facility] HEMATOLOGY Basophils 0.4 0.0 - 1.0 06/16 [facility] HEMATOLOGY Eosinophils 0.9 0.0 - 4.0 06/16 [facility] HEMATOLOGY Monocytes 6.9 2.0 - 12.0 06/16 [facility] HEMATOLOGY Lymphocytes 27.9 20.0 - 03 40.0 [facility] HEMATOLOGY Eosinophils 0.1 0.0 - 0.5 0310 MH # /2017 [facility] HEMATOLOGY Lymphocytes 2.8 1.0 - 5.5 03 MH # /2017 [facility] HEMATOLOGY Segs-Bands # 6.5 1.5 - 8.1 06/16 [facility] HEMATOLOGY Segs 63.9 45.0 - 03 75.0 /2017 [facility] HEMATOLOGY Basophils # 0.0 0.0 - 0.2 06/16 [facility] HEMATOLOGY Monocytes # 0.7 0.0 - 0.8 06/16 [facility] HEMATOLOGY INR 1.14 0.85 - 06/16 1.17 /2017 [facility] HEMATOLOGY PTT 42.4 22.9 - 0310 35.8 /2018 [facility] HEMATOLOGY PT 14.6 12.0 - 06/16 14.7 /2017 [facility] HEMATOLOGY WBC 10.1 3.7 - 10.4 06/16 [facility] HEMATOLOGY MPV 7.6 7.4 - 10.4 10 [facility] HEMATOLOGY Platelet 238 133 - 450 06/16 [facility] HEMATOLOGY RDW 15.8 11.5 - 06/16 14.5 /2017 [facility] HEMATOLOGY MCHC 32.4 32.0 - 03 36.0 /2017 [facility] HEMATOLOGY MCH 26.6 27.0 - 03 31.0 /2018 [facility] HEMATOLOGY MCV 82.2 80.0 - 06/16 98.0 /2017 [facility] HEMATOLOGY Hct 32.0 36.0 - 03 48.0 /2018 [facility] HEMATOLOGY Hgb 10.4 12.0 - 03 16.0 [facility] HEMATOLOGY RBC 3.90 4.20 - 06/16 5.40 /2017 [facility] HGBA1C 6.7 - 5.6 07/02 [facility] HGBA1C 10.0 - 5.6 05/05 [facility] CHOLESTEROL 162 - 199 05/05 [facility] TRIGLYCERIDE 189 - 149 05/05 [facility] HDL 21 >=61 05/05 Group Chemistry LDL 103 - 99 05/05 Group Chemistry URIC ACID 2.6 2.5 - 7.0 05/05 Group Chemistry SODIUM 143 MEQ/L 135 - 145 05/05 Group [facility] POTASSIUM 4.3 MEQ/L 3.5 - 5.1 05/05 [facility] CREATININE 0.9 0.5 - 1.4 05/05 [facility] BUN 3 7 - 22 05/05 Group Chemistry BUN/CREAT 3 6 - 25 05/05 Group Chemistry ALBUMIN 3.2 3.5 - 5.0 05/05 Group [facility] CALCIUM 8.4 8.5 - 10.5 05/05 Group Chemistry SGPT (ALT) 18 0 - 65 05/05 Group Chemistry SGOT (AST) 30 0 - 37 05/05 Group Chemistry ALK PHOS 86 39 - 136 05/05 Group Chemistry TSH 1.020 0.360 - 05/05 Medical 3.74 Group Chemistry CORTISOL SER 8.0 3.0 - 23.0 05/05 [facility] HGBA1C 10.0 - 5.6 05/05 Group Chemistry CHOLESTEROL 162 - 199 05/05 Group Chemistry TRIGLYCERIDE 189 - 149 05/05 [facility] HDL 21 >=61 05/05 Group Chemistry LDL 103 - 99 05/05 Group Chemistry URIC ACID 2.6 2.5 - 7.0 05/05 Group Chemistry SODIUM 143 MEQ/L 135 - 145 05/05 Group Chemistry POTASSIUM 4.3 MEQ/L 3.5 - 5.1 05/05 [facility] CREATININE 0.9 0.5 - 1.4 05/05 [facility] BUN 3 7 - 22 05/05 Group Chemistry BUN/CREAT 3 6 - 25 05/05 Group Chemistry ALBUMIN 3.2 3.5 - 5.0 05/05 Group Chemistry CALCIUM 8.4 8.5 - 10.5 05/05 Group Chemistry SGPT (ALT) 18 0 - 65 05/05 Group Chemistry SGOT (AST) 30 0 - 37 05/05 Group Chemistry ALK PHOS 86 39 - 136 05/05 Group Chemistry TSH 1.020 0.360 - 05/05 Medical 3.740 Group Chemistry CORTISOL SER 8.0 3.0 - 23.0 05/05 [facility] Hematology HGB 12.2 12.0 - 05/05 Medical . Group Hematology HCT 38.4 36.0 - 05/05 Medical . Group Hematology PLATELETS 202 K/CMM 133 - 450 05/05 Group Hematology ESR 48 0 - 20 05/05 Group Hematology HGB 12.2 12.0 - 05/05 [facility] . Group Hematology HCT 38.4 36.0 - 05/05 [facility] . Group Hematology PLATELETS 202 K/CMM 133 - 450 05/05 Group Hematology ESR 48 0 - 20 05/05 Group Serology MIK Positive 05/05 Group Serology MIK Positive 05/05 Group Urinalysis UA COLOR Yellow 05/05 Group Urinalysis BACTERIA URN Occasional 05/05 [facility] dic Group Urinalysis UA COLOR Yellow 05/05 Group Urinalysis BACTERIA URN Occasional 05/05 [facility] dic Group Chemistry CHOLESTEROL 131 120 - 200 04/24 [facility] TRIGLYCERIDE 107 0 - 200 04/24 [facility] HDL 38 >=35 04/24 [facility] LDL 72 0 - 129 04/24 [facility] SODIUM 139 MEQ/L 135 - 145 04/24 [facility] POTASSIUM 4.1 MEQ/L 3.5 - 5.1 04/24 [facility] Chemistry CREATININE 1.0 0.5 - 1.4 04/24 [facility] BUN 7 7 - 22 04/24 [facility] BUN/CREAT 7 6 - 25 04/24 [facility] ALBUMIN 3.7 3.5 - 5.0 04/24 [facility] CALCIUM 8.4 8.5 - 10.5 04/24 [facility] SGPT (ALT) 29 0 - 65 04/24 [facility] SGOT (AST) 39 0 - 37 04/24 [facility] ALK PHOS 76 39 - 136 04/24 [facility] TSH 4.680 0.360 - 04/24 Medical 3.740 /2013 Group Hematology HGB 12.4 12.0 - 04/24 Medical 16.0 Group Hematology HCT 37.6 36.0 - 04/24 Medical 48.0 /2013 Group Hematology PLATELETS 213 K/CMM 133 - 450 04/24 [facility] Group Urinalysis UA COLOR Yellow 04/24 Group Urinalysis BACTERIA URN Occasional 04/24 [facility] dic Group Chemistry CHOLESTEROL 110 120 - 200 03/14 [facility] TRIGLYCERIDE 135 0 - 200 03/14 [facility] HDL 34 >=35 03/14 Group Chemistry LDL 49 0 - 129 03/14 Group Chemistry SODIUM 143 MEQ/L 135 - 145 03/14 Group Chemistry POTASSIUM 4.1 MEQ/L 3.5 - 5.1 03/14 [facility] CREATININE 0.9 0.5 - 1.4 03/14 [facility] BUN 6 7 - 22 03/14 Group Chemistry BUN/CREAT 7 6 - 25 03/14 Group Chemistry ALBUMIN 3.9 3.5 - 5.0 03/14 Group Chemistry CALCIUM 9.0 8.5 - 10.5 03/14 Group Chemistry SGPT (ALT) 27 0 - 65 03/14 Group Chemistry SGOT (AST) 34 0 - 37 03/14 Group Chemistry ALK PHOS 76 39 - 136 03/14 Group Chemistry TSH 0.524 0.360 - 03/14 3 Group Hematology HGB 12.2 12.0 - 03/14 Medical 16. Group Hematology HCT 35.7 36.0 - 03/14 Medical 48. Group Hematology PLATELETS 252 K/CMM 133 - 450 03/14 [facility] Group Urinalysis UA COLOR Yellow Yellow 03/14 Group Hematology HGB 11.6 12.0 - 07/21 16. Group Hematology HCT 35.3 36.0 - 07/21 Medical 48. Group Hematology PLATELETS 314 K/CMM 133 - 450 07/21 Group Hematology ESR 42 0 - 20 07/21 Group Urinalysis UA COLOR Yellow Yellow 06/21 Group Urinalysis BACTERIA URN Occasional None Seen 06/21 Group Chemistry SODIUM 140 135 - 145 05/24 Group Chemistry POTASSIUM 4.5 3.5 - 5.1 05/24 Group Chemistry CREATININE 0.9 0.5 - 1.4 05/24 Group Chemistry BUN 13 7 - 22 05/24 Group Chemistry BUN/CREAT 14 6 - 25 05/24 Group Chemistry ALBUMIN 4.2 3.5 - 5.0 05/24 Group Chemistry CALCIUM 9.1 8.5 - 10.5 05/24 Group Chemistry SGPT (ALT) 15 0 - 65 05/24 Group Chemistry SGOT (AST) 12 0 - 37 05/24 Group Chemistry ALK PHOS 67 39 - 136 05/24 Group Chemistry TSH 0.680 0.360 - 05/24 3. Group Coagulatio PT PATIENT 13.6 12.0 - 05/24 Medical n 14.7 /2010 Group Coagulatio INR 1.02 0.85 - 05/24 Medical n 1.17 Group Hematology HGB 12.7 12.0 - 05/24 Medical 16.0 Group Hematology HCT 38.1 36.0 - 05/24 Medical 48.0 Group Hematology PLATELETS 269 K/CMM 133 - 450 05/24 [facility] jose luis Group Urinalysis UA COLOR Yellow Yellow 05/24 Medical /2010 Group Pathology Reports No Data Provided for This Section Diagnostic Reports Report Value Date Source Spine thoracic myelogram Clinical Indication: Back pain. [address] [facility] [address] Comparison: None Correlation: CT lumbar myelo gram 09/24/2018; chest CT 06/16/2017, lumbar spine CT 01/10/2018. TECHNIQUE: Sequential trans- axial images of the thoracic spine were obtained with a multi-detector helical CT after the myelogram. Axial, coronal and sagittal reconstructions were obtained. CT Radiation Dose DLP: 980.2 mGy-cm. DLP means Dose Length Product, a radiation dose metric that does not report individual patient dose, but is a reference value related to the radiation output of the scanner used for this exam. FINDINGS: ALIGNMENT: The thoracic kyphosis is maintained. VERTEBRAE: -Osteopenia, without signs of acute fractures or listhesis. -Erosion of the anterior end plate at T11, new since since the lumbar spine CT performed on 01/10/2018. -Erosion of the anterior to the T12 is unchanged . SOFT TISSUES: No prevertebra l or paravertebral soft tissue swelling. The partially imaged lungs are clear. SPINAL CANAL: No evidence of hematoma or fluid collection. Fragment of epidural lead at T10-T11 without significant mass effect on the thecal sac (series 3, image 90. DISK SPACES AND SOFT TISSUES: Mild disc degenera tion. DEGENERATIVE CHANGES: T1-T2 through T6-T7: No disc protrusion or extrusion. No significant spinal canal or foraminal stenosi s. T7-T8: Shallow central protrusion without significant m ass effect. No significant spinal canal or foraminal stenosi s. T8-T9 and T9-T10: No disc protrusion or extrusion. No significant spinal canal or foraminal stenosi s. T10-T11: Small left central disc oste ophyte and punctate epidural lead results in minimal/mild spinal canal stenosis. T11-T12: No disc protrusion or extrusion. No significant spinal canal or foraminal stenosi s. T12-L1: Scoliosis of posterior disc osteophyte compresses in mild spinal canal stenosis. IMPRESSION: No acute fracture or significant spinal canal st enosis in the thoracic spine. Erosion of the anterior endp lates at T11 and T12 is a nonspecific finding. Differential considerations include degeneration, amyloid or infection. Incidental and degenerative changes, as above SL: [id number] Spine lumbar myelogram CT Clinical Indication: Lower e xtremity weakness and severe back pain. 09/24/2018 [facility] Comparison: Lumbar spine MR 06/12/2012 Correlation: CT abdomen and pelvis 01/10/2018 TECHNIQUE: Sequential trans- axial images were obtained with a multi-detector helical CT after the myelogram. Axial, coronal and sagittal reconstructions were obtained. CT Radiation Dose DLP: 929.6 mGy-cm. DLP means Dose Length Product, a radiation dose metric that does not report individual patient dose, but is a reference value related to the radiation output of the scanner used for this exam. FINDINGS: The exam is degraded by motion artifacts. ALIGNMENT: S-shaped scoliosi s is unchanged. The approximately 5 mm anterolisthesis of L5 5 on S1 is unchanged. VERTEBRAE: -The bones are osteopenic. -Interval removal of the pos terior hardware from L1 through S1 compared to the CT abdomen and pelvis performed on. 01/10/2018. The surgical tracts are intact. -Laminectomy at L3, L4, L5 and S1. -Nonspecific erosion of the anterior endplate at T11, new since 01/10/2018 (series 200, image 42). -Nonspecific erosion of the anterior endplate at T12, unchanged since 01/10/2018. -Age-indeterminate inferior endplate compression fracture at L3 results in approximately 25% height loss -Age-indeterminate superior endplate compression fracture at L4 results in 25% height loss. -Facet hypertrophy and bone graft along the face ts. SOFT TISSUES: No prevertebra l soft tissue hematoma. Soft tissue scar in the laminectomy defect and soft tissues of the resected hardware. The right kidney contains a partially imaged 7.9 cm cyst. Prior cholecystectomy. Partially i phuong stimulator leads in the soft tissues of the posterior back enter the epidural space through the laminectomy defect. SPINAL CANAL: No evidence of hematoma or fluid collection. Conus medullaris terminates at L1. DISK SPACES AND SOFT TISSUES : Disc implant at L5-S1 is well incorporated. Moderate disc degeneration from T11-T12 through L5-S1. T10-T11: Small left central disc osteophyte complex conta cts the cord. No significant spinal canal stenosis. T10-T11: Posterior disc osteophyte complex/ventral thecal sac. No significant spinal canal stenosis. T11-T12: No disc protrusion or extrusion. No significant spinal canal or foraminal stenosi s. T12-L1: Scoliosis and posterior disc ossific complex results in mild spinal canal stenosis. L1-L2: Scoliosis and posterior disc osteophyte complex results in mild spinal canal stenosis. L2-L3: Scoliosis and posterior disc osteophyte complex results in mild spinal canal stenosis. L3-L4: Decompressed level. No spinal canal stenosis. Facet hypertrophy and latera l osteophytes results in at least moderate bilateral foraminal stenosis. L4-L5: Disc osteophyte complex results in mild spinal c anal stenosis. Facet hypertrophy and latera l/results in moderate/severe lateral foraminal stenosis. L5-S1: Disc osteophyte complex results in mild spinal c anal stenosis. Facet hypertrophy and latera l/results in moderate/severe lateral foraminal stenosis. IMPRESSION: 1. Age-indeterminate yang zeny fractures at L3 and L4 result in approximately 25% height loss (not present on 01/10/2018). 2. Interval removal of the p osterior hardware from L1 through S1 compared to 01/10/2018. 3. Erosion of the anterior e ndplates at T11 and T12, indeterminate. This may represent degeneration, amyloid or infection. 4. Degenerative changes, without significant spi nal canal stenosis. 5. Additional findings, as above. SL: [id number] Spine cervical myelogram Patient Name: TIP Stafford ELIUD 09/24/2018 [facility] : 1950; Age: 68 years y/o Female MR: [id number] Study: Spine cervical myelogram CT 09/24/2018 2:4 0 PM CDT Ordering Physician: Tee Mccall MD Clinical Indication: - lower extremity weakness and severe back pain; Comparison: None TECHNIQUE: Sequential trans- axial images were obtained with a multi-detector helical CT after the myelogram. Coronal and sagittal reconstructions were obtained. DOSE: CT imaging performed at this location utilizes radiation dose optimization techniques which include one or more of the followin) Automated exposure control; 2) Adjustment of the mA and/or kV according to patient size; 3 ) Use of iterative reconstruction techniques. Dose DLP: 386 mGy-cm FINDINGS: ALIGNMENT AND GENERAL ASSESSMENT: There is normal alignment of the cervical spine without fractures or subluxations. Lhho-lf-yxyhwffy disc space narrowing throughout the cervical spine. Multilevel osteophytes are seen throughout the c ervical spine. Moderate degenerative narrow ing at the atlantodental joint. Well-corticated bone fragments at the basion dental interval. DISC SPACES: C2-3: There is no significan t bulge or protrusion and no spinal or foraminal stenosis. C3-4: There is no significan t bulge or protrusion and no spinal or foraminal stenosis. C4-5: Posterior disc osteoph yte complex with severe spinal canal and severe left foraminal stenosis C5-6: Posterior disc osteoph yte complex with moderate spinal canal and moderate bilateral foraminal stenosis C6-7: Posterior disc osteophyte complex with mild bilateral foraminal stenosis C7-T1: There is no significa nt bulge or protrusion and no spinal or foraminal stenosis. IMPRESSION: 1. Severe degenerative spinal canal stenosis at C4-C5. 2. Moderate degenerative spinal canal stenosis at C5-C6. 3. Severe degenerative neural foraminal stenosi s at the left C4-C5 level. 4. Moderate degenerative ne ural foraminal stenosis at the bilateral C5-C6 level. SL: [id number] Spine myelogram complete Spine myelogram complete DX 09/25/19 19 10:37 CDT 09/24/2018 [facility] DX Ordering Physician: Tee Mccall MD CLINICAL INDICATION: lower e xtremity weakness and severe back pain - lower extremity weakness and severe back pain; status post lumbar spine operation on 08/19/2018 COMPARISON: None PROCEDURE: Informed consent was obtaine d from the patient, after which the patient was brought into the examination suite and placed in a prone position on the fluoroscopy table. L3-L5 laminectomy postoperative ch anges are noted. The L4 leve l was radiographically marked, and the overlying skin was prepped and draped utilizing all elements of maximal barrier sterile technique. Lidocaine 1% was injected in to a focus of skin of the back and into the deeper soft tissues. A 20-gauge spinal needle was advanced under intermittent fluoroscopic guidance through the L4 posterior space to achieve the tip within t he spinal canal. Inner stylette was removed, and clear CSF was tapped. 13 mL of Omnipaque 300 contr ast was injected intrathecally without complication. Needle was removed. Cauda equina nerve roots wer e outlined in the lumbar spine. Patient was placed in Trendelenburg position, allowing for contrast to freely traverse through the thoracic and cervical spine without any delay or obstruction. Patient was taken back to the CT scanner in a st able fashion. COMPLICATIONS: None ANESTHESIA: Lidocaine 1%, subcutaneous TRACKMAN: Dr. Duran FLUOROSCOPY TIME: 2 min AIR KERMA DOSE: 84.3 mGy IMPRESSION: 1. Successful lumbar puncture, with clear CSF ta pped. 2. Lumbar, thoracic, and cer vical myelograms demonstrate no spinal canal obstruction. Further details will be gleaned from the CT cervical, thoracic, and lumbar spine examinations to be performed immediately following this procedure. SL: [id number] Hip 2/3 views uni w Exam: Right Hip 2/3 views uni w pelvis DX [facility] pelvis DX Clinical Indication: - pain from fall Comparison: Pelvis radiograph 06/08/[address] abdomen and pelvis 01/10/2018 FINDINGS: AP view of the pelvis and AP and frog-leg views of the right hip are performed. Status post right total hip arthroplasty. Hardware appears intact without evidence of failure or loosening. Status post left total hip arthroplasty with partially visualized hardware, which appears inta ct. No acute fracture identi fied. Postsurgical changes present in the lower lumbar spine. The sacroiliac joints and pubic symphysis are unremarkable. Soft tissues are unremarkabl e. Pain pump device partially visualized in the left lateral abdomen. IMPRESSION: Status post bilateral total hip arthroplasty without evidence of acute osseous abnormality. SL: [id number] Knee 3 views DX Exam: Right Knee 3 views DX 09/22/2018 [facility] Clinical Indication: - pain from fall Comparison: Knee radiographs 02/15/2011 FINDINGS: 3 views of the right knee are performed. No acute fracture identified . Alignment is within normal limits without dislocation. Moderate tricompartmental degenerative changes with joint space narrowing and marginal osteophyte formation. No significant soft tissue s welling. No radiopaque foreign body. Small joint effusion is present. IMPRESSION: 1. No acute osseous abnormality of the right kn ee. 2. Moderate tricompartmenta l degenerative arthritis, significantly progressed since prior exam in 2010. 3. Small joint effusion. SL: [id number] Chest 2 views DX Clinical Indication: - HTN, DJD, Pre-op Cleara nce 08/14/2018 [facility] Comparison: July 09, 2017 FINDINGS: The PA and lateral chest rad iographs shows normal lung volumes without interstitial or airspace opacities, pleural effusions or pneumothorax. The heart size and pulmonary vasculature are normal. The trachea is midline. There are no clinically significant osseous abnormalities noted. IMPRESSION: No chest radiographic evidence of acute cardiopu lmonary disease. SL: [id number] [facility] D[facility] DXA Dual [facility] DENSITY ASSESS[facility]: 03/26/2018 CLINICAL DATA: Post menopaus al. M89.9 Disorder of bone, unspecified. /M89.9 Disorder Of Bone, Unspecified RISK FACTORS: . COMPARISON: 12/12/2013 Left total radius using [employer] X-Ray Absorptiometry from [facility] with reported normal fracture risk, BMD of 0.524g/cm2, T-score of -0.50 , Z-score of 0.80, 95.0% reference, and 108.0% a ge-match bone mineralization. 12/12/2013 Right distal radi us using [employer] X-Ray Absorptiometry from [facility] with reported normal fracture risk, BMD of 0.536g/cm2, T-score of -0. 30, Z-score of 1.00, 98.0% r eference, and 111.0% age-match bone mineralization. FINDINGS: Bone density evaluation was performed 03/26/2018 on the left distal radius using a Hologic unit. The BMD average for the exam is 0.602 g/cm2. The T-score is -1.40 and the Z-score is 0.60. This matches the World Health Organizati on's criteria for osteopenia and places the patient at a medium risk for fracture. An additional bone density e valuation was performed 03/26/2018 on the right femur neck using a Hologic unit. The BMD average for the exam is 0.599 g/cm2. The T-score is -1.50 and the Z-score is 0.60. This matches the World Healt h Organization's criteria for osteopenia and places the patient at a medium risk for fracture. IMPRESSION: OSTEOPENIA Patient is at medium risk for fracture. Tenzin Gongora M.D., jp/penrad:03/26/2018 13:53:42 Tube Turner(s): Edie Peralta, [facility] Breast Mammo Scrn ELEANOR 03/26/2018 [facility] MA BILATERAL DIGITAL SCREENING MAMMOGRAM WITH CAD: 03/26/2018 CLINICAL: /Z12.31 Encounter For Screening Mammogram For Malignant Neoplasm Of Breast. Current study was evaluated with a Living Specialist d Detection (CAD) system. COMPARISON:Comparison is mad e to exams dated: 02/12/2017 mammogram and 12/12/2013 mammogram - [facility]. TECHNIQUE: Mammographic view s were obtained using digital acquisition. Current study was also evaluated with a Computer Aided Detection (CAD) system. FINDINGS: There are scattered fibroglandular densities in both breasts. There are benign appearing calcifications in bot h breasts. No significant masses, calci fications, or other findings are seen in either breast. There has been no significant interval change. IMPRESSION: BENIGN RECOMMENDATION:There is no m ammographic evidence of malignancy. A 1 year screening mammogram is recommended.(03/27/2019) Professional services are pr ovided by the [facility]. Tenzin Gongora M.D., jp/penrad:03/26/2018 13:33:09 Tube Turner(s): Og Pitts, [facility] letter sent: BI-RADS 1/2 Mammogram BI-RADS: 2 Benign ED Abdomen/Pelvis IV Patient Name: TIP KLINE 01/10/2018 [facility] contrast only CT : 1950; Age: 67 years Female MR: [id number] Study: ED Abdomen/Pelvis IV contrast only CT 01/10/2018 10:16 AM CDT CLINICAL INDICATION: - Abdominal pain s/p pain pump implantation COMPARISON: CT on 12/15/2010 TECHNIQUE: Multidetector CT imaging of the abdomen and pelvis WITH IV contrast. Coronal and sagittal reconstructions were generated and reviewed. CT imaging performed at this location utilizes radiation dose optimization techniques which include one or more of the following: -Automated exposure control -Adjustment of the mA and/or kV according to pat ient size -Use of iterative reconstruction technique Radiation dose: 827.08 mGycm IV contrast: 100 cc of Visipaque 320 FINDINGS: Lower thorax: Atelectatic changes within the dep endent lungs. Hepatobiliary: Hepatic steatosis. Cholecystectom y. Pancreas: No focal mass or d uctal dilatation. Atrophic changes of the pancreatic head. Spleen: No splenomegaly. Adrenals: No nodules. Kidneys: No hydronephrosis o r renal stones. Stable large exophytic 7.6 cm cyst within the right kidney. Pelvic organs: Absent uterus . Limited evaluation of the bladder due to metallic artifact from the hip replacements. Peritoneum/Retroperitoneum: No free air or free fluid. Lymph nodes: No lymphadenopathy. Vessels: Unremarkable. GI: No significant bowel thi ckening or dilatation. Scattered colonic diverticula. Decompressed right colon. Bones and soft tissues: Left flank pain pump in place with catheter entering the spinal canal at the level of L4. No organized fluid collection within the subcutaneous tissues. Posterior lumbar spinal i nstrumentation changes. Bilateral hip replacemen ts. IMPRESSION: No acute abdominal or pelvic abnormalities. Status post placement of a left flank pain pump device. SL: [id number] Ankle 2 views DX EXAM: Right Ankle 2 views DX 07/19/[address] [facility] DATE: 07/19/2017 2:23 PM CDT INDICATION: Swelling - pain right ankle COMPARISON: None. IMPRESSION: Diffuse osteopen ia. Prominent diffuse soft tissue swelling about the ankle. No definite gross acute fracture or dislocation detected. Mild degenerative change of the midfoot. SL: [id number] Chest 1view DX Patient Name: TIP KLINE 07/09/[address] [facility] [address] : 1950; Age: 67 years Female MR: [id number] Study: Chest 1view DX Order Time: 07/09/2017 5:20 PM CDT CLINICAL INDICATION: Fever - R/O pneumonia COMPARISON: Chest radiograph on 06/15/2017 FINDINGS: Lines: None. Lungs: The lungs are grossly clear. Mediastinum: The cardiac silhouette is mildly en larged. Midline trachea. Bones and soft tissues: No a cute abnormalities. Lumbar fusion hardware and thoracic spinal stimulator device noted. IMPRESSION: No acute cardiopulmonary abnormalities. SL: [id number] Chest Pulmonary Embolism Clinical Indication: - hypoxia; 06/16 [facility] CTA Comparison: December 29, 2004 TECHNIQUE: Sequential trans- axial images were obtained thru the chest and upper abdomen after administration of iodinated contrast. CTA protocol was performed with 3-D postprocessing reconstruction MIPs and volume rendering. Coronal and sagittal reconst ructions were obtained. 87 cc of nonionic contrast material was used for the exam. Dose: DLP = 481 mGy-cm FINDINGS: LUNG PARENCHYMA AND PLEURA: There are no lung nodules. There is no significant interstitial lung disease. There is bibasilar atelectasis with the left being greater than right. There is no evidence of any pleural effusion. There is no pneumothorax. AIRWAY: The central airway is normal. . MEDIASTINUM: No significant mediastinal lymphade nopathy. HEART: There is no evidence of RV strain. The cardiac chambers are otherwise unremarkable. There is no pericardial effusion. VASCULAR STRUCTURES: There a re no segmental pulmonary emboli noted. The main, right and left pulmonary arteries are normal. The great vessels are unremarkable. The thoracic aorta is is free of aneurys m or dissection.. The superior vena cava is unre markable. OSSEOUS STRUCTURES: There ar e no definite significant osseous abnormalities seen. VISUALIZED UPPER ABDOMEN: Th e visualized upper abdomen is within normal limits. IMPRESSION: 1. No evidence of pulmonary emboli. 2. Mild bibasilar atelectasi s. There are no focal infiltrates. There is no lymphadenopathy or pleural effusion SL: WR3-M Chest 1view DX Study: Chest 1view DX 06/15/2017 [facility] Clinical Indication: - ?fever Comparison: Chest x-ray from 02/04/2015 FINDINGS: The cardiac silhou ette is mildly prominent. The lungs are clear and without consolidation or congestion. No pleural effusion or pneumothorax is seen. Spinal cord stimulating device overlies the midthoracic spine. IMPRESSION: No acute cardiopulmonary disease. SL: SLEE-PC Ankle 3 views DX Study: Right ankle, 3 views 06/15/2017 [facility] Clinical Indication: Right ankle pain Comparison: None FINDINGS: Multiple views of the right ankle show no acute bony fracture or joint dislocation. Chronic, healed fracture of the distal fibular diaphysis is seen. Ankle mortise is congruent. Soft tissues are unremarkable. IMPRESSION: No acute bony abnormality of the rig ht ankle. SL: SLEE-PC Wrist complete DX Study: Left forearm, 2 views. Left wrist, 3 vi ews. 06/15/2017 [facility] Clinical Indication: Left wrist pain post fall Comparison: None FINDINGS: Multiple views of the left wrist and left forearm show an acute, comminuted, nondisplaced intra-articular fracture of the distal radius with mild dorsal angulation of the distal fracture fragm ent and extensive overlying soft tissue swelling. Anatomic alignment is maintained about the elbow. Osteoarthrosis of the ulnohumeral joint is seen. IMPRESSION: Acute, comminute d, nondisplaced intra-articular fracture of the distal radius. SL: SLEE-PC Forearm 2 views DX Study: Left forearm, 2 views. Left wrist , 3 views. 06/15/2017 [facility] Clinical Indication: Left wrist pain post fall Comparison: None FINDINGS: Multiple views of the left wrist and left forearm show an acute, comminuted, nondisplaced intra-articular fracture of the distal radius with mild dorsal angulation of the distal fracture fragm ent and extensive overlying soft tissue swelling. Anatomic alignment is maintained about the elbow. Osteoarthrosis of the ulnohumeral joint is seen. IMPRESSION: Acute, comminute d, nondisplaced intra-articular fracture of the distal radius. SL: SLEE-PC Breast Mammo Scrn ELEANOR 02/12/2017 [facility] MA BILATERAL DIGITAL SCREENING MAMMOGRAM WITH CAD: 02/12/2017 CLINICAL: /12.31. Current study was evaluated with a Living [employer]ist d Detection (CAD) system. COMPARISON:Comparison is mad e to exams dated: 12/12/2013 mammogram, 04/03/2007 mammogram - [facility], 07/05/2004, and 07/05/2004. TECHNIQUE: Mammographic view s were obtained using digital acquisition. Current study was also evaluated with a Computer Aided Detection (CAD) system. There are scattered fibroglandular densities in both breasts. FINDINGS: There are benign appearing calcifications in bot h breasts. No significant masses, calci fications, or other findings are seen in either breast. There has been no significant interval change. IMPRESSION: BENIGN RECOMMENDATION:There is no m ammographic evidence of malignancy. A 1 year screening mammogram is recommended.(02/13/2018) This exam was interpreted at [id number] at [facility] [place]. Tenzin Gongora M.D., jp/mihaela:02/12/2017 14:03:57 Tube Turner(s): Suze Forbes, [facility] letter sent: BI-RADS 1/2 Mammogram BI-RADS: 2 Benign Retroperitoneal Complete Patient Name: TIP KLINE 03/28/2016 [facility] US : 1950; Age: 65 years y/o Female MR: [id number] Study: Retroperitoneal Complete US 03/28/2016 10 :30 AM [facility]ARN[facility] [employer]IGGER Ordering Physician: [place] Cr MD Clinical Indication: N18.3 Chronic kidney disease, stage 3 (moderate), 65yr F, with 30% function of kidneys, abnormal renal blood work, no pain. Comparison: 09/27/2006. TECHNIQUE: Multiple longitudinal and tr ansverse real time sonographic images of the kidneys and urinary bladder are obtained. FINDINGS: KIDNEYS: The bilateral renal size, sh ape, and echotexture are normal. The corticomedullary junction differentiation is maintained. No evidence of nephrolithiasis, hydronephrosis, mass lesion, or perinephric flui d collection. A large simple cyst measuring 7.0 x 4.4 x 5.4 cm (previously 3.5 x 2.7 x 3.5 cm) is seen arising from the superior pole of the right kidney. Right kidney: 11.0 x 3.6 x 4.1 cm. Left kidney: 11.1 x 6.5 x 5.2 cm. BLADDER: Under distended and appropri ately thick walled containing anechoic urine. The left ureteral jet is present while the right is not identified. OTHER: The visualized liver is hyperechoic sugge sting steatosis. IMPRESSION: 1. Increasing size large simple cyst involving the right kidney. 2. Under distended mildly thick-walled urinary bladder. 3. Hepatic steatosis. SL: [id number] Fluoroscopy assist to 1 EXAM: CAUDAL EPIDUROGRAM 02/03/2016 [facility] INDICATION: Lower back pain. FINDINGS: Sequential fluoros copic images demonstrate needle tip position in the dorsal spinal canal at the S5 level for caudal epidurogram. Contrast extends within the epidural space of the sacrum and lower lumbar spine. Partially imaged lumbosacral fusion hardware. Fluoroscopic time is 23.5 seconds with dose of 7 .24 mGy. IMPRESSION: Needle tip positioning for c audal epidurogram with contrast in the epidural space. Chest 2 views DX PA and LATERAL CHEST 02/04/2015 [facility] (2 views) HISTORY: [id number] Encounter for other prepro cedural examination A prior study 06/22/2014 was reviewed. FINDINGS: The lungs are clear. There are no pleural effusions. The heart and pulmonary vasculature are within normal limits. There is mild hypertrophic s pondylosis. Otherwise, the regional skeleton is unremarkable. CONCLUSION: 1. No active disease. Coding: Chest 2 views CPT Code: 15348 SL: 16 Win Gonzalez M.D. Consultation Notes No Data Provided for This Section Discharge Summaries No Data Provided for This Section History and Physicals No Data Provided for This Section Vital Signs Vital Sign Value Date Comments Source Systolic (mm Hg) 87 01/20/2019 [facility] Diastolic (mm Hg) 54 01/20/2019 [facility] Heart Rate 84 01/20/2019 [facility] Temperature Oral (F) 99.2 F 01/20/2019 [facility] Height 160.02 cm 01/20/2019 [facility] Systolic (mm Hg) 130 12/05/2018 [facility] Diastolic (mm Hg) 70 12/05/2018 [facility] Heart Rate 75 12/05/2018 [facility] Temperature Oral (F) 99.7 F 12/05/2018 [facility] Height 160.02 cm 12/05/2018 [facility] Weight 99.602 12/05/2018 [facility] BMI Calculated 38.9 12/05/2018 [facility] Systolic (mm Hg) 141 10/22/2018 [place] Diastolic (mm Hg) 79 10/22/2018 [place] Temperature Oral (F) 98 F 10/22/2018 [facility] Heart Rate 53 {beats}/min 10/22/[address] [facility] Respitory Rate 18 10/22/2018 [facility] Systolic (mm Hg) 128 10/22/2018 [place] Diastolic (mm Hg) 62 10/22/2018 [place] Temperature Oral (F) 98 F 10/22/[address] [facility] Heart Rate 54 {beats}/min 10/22/[address] [facility] Respitory Rate 16 10/22/[address] [facility] Systolic (mm Hg) 118 10/21/2018 [place] Diastolic (mm Hg) 63 10/21/2018 [place] Temperature Oral (F) 97 F 10/21/[address] [facility] Heart Rate 60 {beats}/min 10/21/[address] [facility] Respitory Rate 20 10/21/[address] [facility] Systolic (mm Hg) 120 10/21/2018 [place] Diastolic (mm Hg) 70 10/21/2018 [place] Temperature Oral (F) 98.4 F 10/21/[address] [facility] Heart Rate 52 {beats}/min 10/21/[address] [facility] Respitory Rate 18 10/21/[address] [place] Systolic (mm Hg) 117 10/21/2018 [place] Diastolic (mm Hg) 56 10/21/2018 [place] Temperature Oral (F) 98 F 10/21/[address] [facility] Heart Rate 52 {beats}/min 10/21/[address] [facility] Respitory Rate 18 10/21/[address] [place] Systolic (mm Hg) 130 10/20/2018 [place] Diastolic (mm Hg) 60 10/20/2018 [place] Temperature Oral (F) 98.6 F 10/20/[address] [facility] Heart Rate 74 {beats}/min 10/20/[address] [place] Respitory Rate 20 10/20/[address] [place] Systolic (mm Hg) 135 10/20/2018 [place] Diastolic (mm Hg) 70 10/20/2018 [place] Temperature Oral (F) 98.2 F 10/20/[address] [facility] Heart Rate 69 {beats}/min 10/20/[address] [place] Respitory Rate 20 10/20/[address] [place] Weight 215.4 10/20/[facility] Systolic (mm Hg) 125 10/20/2018 [place] Diastolic (mm Hg) 63 10/20/2018 [place] Temperature Oral (F) 98.4 F 10/20/[address] [facility] Heart Rate 51 {beats}/min 10/20/[address] [place] Respitory Rate 19 10/20/[address] [place] Systolic (mm Hg) 127 10/19/2018 [place] Diastolic (mm Hg) 67 10/19/2018 [place] Temperature Oral (F) 97 F 10/19/[address] [facility] Heart Rate 65 {beats}/min 10/19/[address] [place] Respitory Rate 18 10/19/[address] [place] Systolic (mm Hg) 151 10/19/2018 [place] Diastolic (mm Hg) 67 10/19/2018 [place] Temperature Oral (F) 97.2 F 10/19/[address] [facility] Heart Rate 61 {beats}/min 10/19/[address] [place] Respitory Rate 16 10/19/[address] [place] Systolic (mm Hg) 127 10/19/2018 [place] Diastolic (mm Hg) 56 10/19/2018 [place] Temperature Oral (F) 98.6 F 10/19/[address] [facility] Heart Rate 56 {beats}/min 10/19/[address] [place] Respitory Rate 16 10/19/[address] [place] Systolic (mm Hg) 135 10/18/2018 [place] Diastolic (mm Hg) 64 10/18/2018 [place] Temperature Oral (F) 99.1 F 10/18/[address] [facility] Heart Rate 60 {beats}/min 10/18/[address] [place] Respitory Rate 18 10/18/[address] [place] Systolic (mm Hg) 130 10/18/2018 [place] Diastolic (mm Hg) 61 10/18/2018 [place] Temperature Oral (F) 98.7 F 10/18/[address] [facility] Heart Rate 57 {beats}/min 10/18/[address] [place] Respitory Rate 16 10/18/[address] [place] Systolic (mm Hg) 117 10/17/2018 [place] Diastolic (mm Hg) 63 10/17/2018 [place] Temperature Oral (F) 97 F 10/17/[address] [facility] Heart Rate 56 {beats}/min 10/17/[address] [facility] Respitory Rate 20 10/17/[address] [place] Systolic (mm Hg) 133 10/17/2018 [place] Diastolic (mm Hg) 63 10/17/2018 [place] Temperature Oral (F) 97.8 F 10/17/[address] [facility] Heart Rate 59 {beats}/min 10/17/[address] [facility] Respitory Rate 18 10/17/[address] [place] Systolic (mm Hg) 132 10/16/2018 [place] Diastolic (mm Hg) 60 10/16/2018 [place] Temperature Oral (F) 97 F 10/16/[address] [facility] Heart Rate 70 {beats}/min 10/16/[address] [facility] Respitory Rate 18 10/16/[address] [facility] Systolic (mm Hg) 115 10/16/2018 [place] Diastolic (mm Hg) 48 10/16/2018 [place] Temperature Oral (F) 98.6 F 10/16/[address] [facility] Heart Rate 58 {beats}/min 10/16/[address] [facility] Respitory Rate 16 10/16/[address] [facility] Weight 216.4 10/15/[facility] Height 63 10/15/2018 [facility] Systolic (mm Hg) 123 10/15/2018 [place] Diastolic (mm Hg) 54 10/15/2018 [place] Temperature Oral (F) 98.4 F 10/15/[address] [facility] Heart Rate 48 {beats}/min 10/15/[address] [facility] Respitory Rate 16 10/15/[address] [facility] Systolic (mm Hg) 116 10/15/2018 [place] Diastolic (mm Hg) 58 10/15/2018 [place] Temperature Oral (F) 98.6 F 10/15/[address] [facility] Heart Rate 58 {beats}/min 10/15/[address] [facility] Respitory Rate 18 10/15/[address] [facility] Systolic (mm Hg) 129 10/14/2018 [place] Diastolic (mm Hg) 65 10/14/2018 [place] Temperature Oral (F) 97 F 10/14/[address] [facility] Heart Rate 59 {beats}/min 10/14/[address] [facility] Respitory Rate 20 10/14/[address] [place] Systolic (mm Hg) 114 10/14/2018 [place] Diastolic (mm Hg) 45 10/14/2018 [place] Temperature Oral (F) 97.7 F 10/14/[address] [facility] Heart Rate 44 {beats}/min 10/14/[address] [facility] Respitory Rate 16 10/14/[address] [facility] Systolic (mm Hg) 138 10/14/2018 [place] Diastolic (mm Hg) 61 10/14/2018 [place] Temperature Oral (F) 98.2 F 10/14/[address] [facility] Heart Rate 45 {beats}/min 10/14/[address] [place] Respitory Rate 18 10/14/[address] [facility] Systolic (mm Hg) 119 10/14/2018 [place] Diastolic (mm Hg) 53 10/14/2018 [place] Temperature Oral (F) 98 F 10/14/[address] [facility] Heart Rate 72 {beats}/min 10/14/[address] [place] Respitory Rate 16 10/14/[address] [facility] Systolic (mm Hg) 149 10/13/2018 [place] Diastolic (mm Hg) 77 10/13/2018 [place] Temperature Oral (F) 97.8 F 10/13/[address] [facility] Heart Rate 75 {beats}/min 10/13/[address] [place] Respitory Rate 20 10/13/[address] [place] Systolic (mm Hg) 116 10/13/2018 [place] Diastolic (mm Hg) 60 10/13/2018 [place] Temperature Oral (F) 98.2 F 10/13/[address] [facility] Heart Rate 52 {beats}/min 10/13/[address] [place] Respitory Rate 16 10/13/[address] [place] Systolic (mm Hg) 127 10/12/2018 [place] Diastolic (mm Hg) 60 10/12/2018 [place] Temperature Oral (F) 98.9 F 10/12/[address] [facility] Heart Rate 65 {beats}/min 10/12/[address] [facility] Respitory Rate 16 10/12/[address] [facility] Systolic (mm Hg) 105 10/12/2018 [place] Diastolic (mm Hg) 51 10/12/2018 [place] Temperature Oral (F) 98.9 F 10/12/[address] [facility] Heart Rate 60 {beats}/min 10/12/[address] [place] Respitory Rate 14 10/12/[address] [place] Systolic (mm Hg) 119 10/11/2018 [place] Diastolic (mm Hg) 57 10/11/2018 [place] Temperature Oral (F) 97 F 10/11/[address] [facility] Heart Rate 54 {beats}/min 10/11/[address] [facility] Respitory Rate 20 10/11/[address] [place] Systolic (mm Hg) 115 10/11/2018 [place] Diastolic (mm Hg) 55 10/11/2018 [place] Temperature Oral (F) 98.2 F 10/11/[address] [facility] Heart Rate 50 {beats}/min 10/11/[address] [place] Respitory Rate 18 10/11/[address] [facility] [address] [place] Systolic (mm Hg) 114 10/11/2018 [place] Diastolic (mm Hg) 60 10/11/2018 [place] Temperature Oral (F) 98.7 F 10/11/[address] [facility] Heart Rate 62 {beats}/min 10/11/[address] [place] Respitory Rate 16 10/11/[address] [facility] Systolic (mm Hg) 114 10/10/2018 [place] Diastolic (mm Hg) 55 10/10/2018 [place] Temperature Oral (F) 97 F 10/10/[address] [facility] Heart Rate 53 {beats}/min 10/10/[address] [place] Respitory Rate 18 10/10/[address] [facility] Systolic (mm Hg) 105 10/10/2018 [place] Diastolic (mm Hg) 56 10/10/2018 [place] Temperature Oral (F) 98.2 F 10/10/[address] [facility] Heart Rate 50 {beats}/min 10/10/[address] [place] Respitory Rate 18 10/10/[address] [facility] Systolic (mm Hg) 159 10/10/2018 [place] Diastolic (mm Hg) 78 10/10/2018 [place] Temperature Oral (F) 98.6 F 10/10/[address] [facility] Heart Rate 64 {beats}/min 10/10/[address] [facility] Respitory Rate 16 10/10/[address] [facility] Systolic (mm Hg) 123 10/09/2018 [place] Diastolic (mm Hg) 65 10/09/2018 [place] Temperature Oral (F) 98.6 F 10/09/[address] [facility] Heart Rate 58 {beats}/min 10/09/[address] [place] Respitory Rate 20 10/09/[address] [place] Systolic (mm Hg) 103 10/09/2018 [place] Diastolic (mm Hg) 49 10/09/2018 [place] Temperature Oral (F) 98.7 F 10/09/[address] [facility] Heart Rate 60 {beats}/min 10/09/[address] [place] Respitory Rate 18 10/09/[address] [place] Systolic (mm Hg) 119 10/08/2018 [place] Diastolic (mm Hg) 59 10/08/2018 [place] Temperature Oral (F) 97 F 10/08/[address] [facility] Heart Rate 69 {beats}/min 10/08/[address] [place] Respitory Rate 18 10/08/[address] [facility] [address] [place] Systolic (mm Hg) 118 10/08/2018 [place] Diastolic (mm Hg) 57 10/08/2018 [place] Temperature Oral (F) 98.4 F 10/08/[address] [facility] Heart Rate 50 {beats}/min 10/08/[address] [facility] Respitory Rate 18 10/08/[address] [facility] Systolic (mm Hg) 118 10/08/2018 [place] Diastolic (mm Hg) 57 10/08/2018 [place] Heart Rate 50 {beats}/min 10/08/[address] [facility] [address] [facility] Systolic (mm Hg) 127 10/08/2018 [place] Diastolic (mm Hg) 64 10/08/2018 [place] Temperature Oral (F) 98.2 F 10/08/[address] [facility] Heart Rate 62 {beats}/min 10/08/[address] [place] Respitory Rate 16 10/08/[address] [place] Systolic (mm Hg) 105 10/07/2018 [place] Diastolic (mm Hg) 63 10/07/2018 [place] Temperature Oral (F) 97 F 10/07/[address] [facility] Heart Rate 64 {beats}/min 10/07/[address] [facility] Respitory Rate 18 10/07/[address] [facility] Systolic (mm Hg) 122 10/07/2018 [place] Diastolic (mm Hg) 58 10/07/2018 [place] Temperature Oral (F) 98.2 F 10/07/[address] [facility] Heart Rate 49 {beats}/min 10/07/[address] [place] Respitory Rate 16 10/07/[address] [facility] Systolic (mm Hg) 122 10/07/2018 [place] Diastolic (mm Hg) 58 10/07/2018 [place] Heart Rate 49 {beats}/min 10/07/[address] [place] Systolic (mm Hg) 114 10/07/2018 [place] Diastolic (mm Hg) 55 10/07/2018 [place] Temperature Oral (F) 98.2 F 10/07/[address] [facility] Heart Rate 60 {beats}/min 10/07/[address] [facility] Respitory Rate 18 10/07/[address] [facility] Systolic (mm Hg) 107 10/06/2018 [place] Diastolic (mm Hg) 57 10/06/2018 [place] Temperature Oral (F) 98.6 F 10/06/[address] [facility] Heart Rate 50 {beats}/min 10/06/[address] [place] Respitory Rate 16 10/06/[address] [place] Systolic (mm Hg) 107 10/06/2018 [place] Diastolic (mm Hg) 57 10/06/2018 [place] Heart Rate 50 {beats}/min 10/06/[address] [facility] Systolic (mm Hg) 108 10/06/2018 [place] Diastolic (mm Hg) 57 10/06/2018 [place] Temperature Oral (F) 98.4 F 10/06/[address] [facility] Heart Rate 62 {beats}/min 10/06/[address] [facility] [address] [facility] Respitory Rate 18 10/06/[address] [facility] Systolic (mm Hg) 121 10/05/2018 [place] Diastolic (mm Hg) 62 10/05/2018 [place] Temperature Oral (F) 98.6 F 10/05/[address] [facility] Heart Rate 58 {beats}/min 10/05/[address] [place] Respitory Rate 16 10/05/[address] [facility] [place] Systolic (mm Hg) 111 10/04/2018 [place] Diastolic (mm Hg) 56 10/04/2018 [place] Temperature Oral (F) 98.6 F 10/04/[address] [facility] Heart Rate 53 {beats}/min 10/04/[address] [facility] Respitory Rate 18 10/04/[address] [facility] Systolic (mm Hg) 99 10/04/2018 [place] Diastolic (mm Hg) 52 10/04/2018 [place] Heart Rate 44 {beats}/min 10/04/[address] [facility] Systolic (mm Hg) 105 10/04/2018 [place] Diastolic (mm Hg) 59 10/04/2018 [place] Temperature Oral (F) 98.7 F 10/04/[address] [facility] Heart Rate 58 {beats}/min 10/04/[address] [facility] [address] [facility] Respitory Rate 16 10/04/[address] [facility] Systolic (mm Hg) 112 10/03/2018 [place] Diastolic (mm Hg) 55 10/03/2018 [place] Temperature Oral (F) 97 F 10/03/[address] [facility] Heart Rate 62 {beats}/min 10/03/[address] [facility] Respitory Rate 18 10/03/[address] [facility] Systolic (mm Hg) 112 10/03/2018 [place] Diastolic (mm Hg) 60 10/03/2018 [place] Heart Rate 58 {beats}/min 10/03/[address] [facility] [address] [facility] Systolic (mm Hg) 156 10/03/2018 [place] Diastolic (mm Hg) 71 10/03/2018 [place] Temperature Oral (F) 98.6 F 10/03/[address] [facility] Heart Rate 50 {beats}/min 10/03/[address] [facility] Respitory Rate 20 10/03/[address] [facility] [address] [place] Systolic (mm Hg) 123 10/02/2018 [place] Diastolic (mm Hg) 59 10/02/2018 [place] Temperature Oral (F) 98.9 F 10/02/[address] [facility] Heart Rate 52 {beats}/min 10/02/[address] [place] Respitory Rate 16 10/02/[address] [facility] [address] [facility] Systolic (mm Hg) 121 10/02/2018 [place] Diastolic (mm Hg) 68 10/02/2018 [place] Temperature Oral (F) 98.6 F 10/02/[address] [facility] Heart Rate 53 {beats}/min 10/02/[address] [place] Respitory Rate 16 10/02/[address] [facility] Systolic (mm Hg) 121 10/02/2018 [place] Diastolic (mm Hg) 68 10/02/2018 [place] Heart Rate 53 {beats}/min 10/02/[address] [place] Systolic (mm Hg) 140 10/02/2018 [place] Diastolic (mm Hg) 63 10/02/2018 [place] Temperature Oral (F) 98.2 F 10/02/[address] [facility] Heart Rate 58 {beats}/min 10/02/[address] [facility] Respitory Rate 16 10/02/[address] [facility] Systolic (mm Hg) 135 10/02/2018 [place] Diastolic (mm Hg) 67 10/02/2018 [place] Temperature Oral (F) 98.7 F 10/02/[address] [facility] Respitory Rate 18 10/02/[address] [place] Heart Rate 57 {beats}/min 10/02/[address] [place] Weight 216 10/01/2018 [facility] Temperature Oral (F) 98.0 F 10/01/2018 [facility] Heart Rate 55 10/01/2018 [facility] Rate 18 10/01/2018 [facility] Systolic (mm Hg) 103 10/01/2018 [facility] Diastolic (mm Hg) 64 10/01/[address] [facility] Systolic (mm Hg) 116 10/01/2018 [facility] Diastolic (mm Hg) 70 10/01/[address] [facility] Respitory Rate 18 10/01/2018 [facility] Heart Rate 55 10/01/2018 [facility] Temperature Oral (F) 98.0 F 10/01/2018 [facility] Temperature Oral (F) 98.1 F 10/01/2018 [facility] Heart Rate 54 10/01/2018 [facility] Systolic (mm Hg) 114 10/01/2018 [facility] Diastolic (mm Hg) 57 10/01/[address] [facility] [address] Respitory Rate 18 10/01/2018 [facility] BMI Calculated 38.23 09/22/2018 [facility] Weight 97.898 09/22/2018 [facility] Height 160.02 cm 09/22/2018 [facility] Height 160.02 cm 09/22/2018 [facility] Weight 98 09/22/2018 [facility] BMI Calculated 38.27 09/22/2018 [facility] Weight 97.727 09/18/2018 [facility] BMI Calculated 38.17 09/18/2018 [facility] Height 160.02 cm 09/18/2018 [facility] Respitory Rate 22 09/18/2018 [facility] Heart Rate 79 09/18/2018 [facility] Systolic (mm Hg) 123 09/18/2018 [facility] Diastolic (mm Hg) 69 09/18/2018 [facility] Weight 99.602 08/14/2018 [facility] Calculated 38.9 08/14/2018 [facility] Height 160.02 cm 08/14/2018 [facility] Heart Rate 63 08/14/2018 [facility] Temperature Oral (F) 99.1 F 08/14/2018 [facility] Systolic (mm Hg) 111 08/14/2018 [facility] Diastolic (mm Hg) 73 08/14/2018 [facility] BMI Calculated 38.88 08/12/2018 [facility] Height 160.02 cm 08/12/2018 [facility] Weight 99.545 08/12/2018 [facility] Heart Rate 58 08/12/2018 [facility] Temperature Oral (F) 99.3 F 08/12/2018 [facility] Systolic (mm Hg) 112 08/12/2018 [facility] Diastolic (mm Hg) 69 08/12/2018 [facility] Weight 99.545 08/05/2018 [facility] BMI Calculated 38.88 08/05/2018 [facility] Height 160.02 cm 08/05/2018 [facility] Systolic (mm Hg) 117 08/05/2018 [facility] Diastolic (mm Hg) 76 08/05/2018 [facility] Temperature Oral (F) 99.4 F 08/05/2018 [facility] Heart Rate 74 08/05/2018 [facility] Systolic (mm Hg) 133 06/28/2018 [facility] Diastolic (mm Hg) 76 06/28/2018 [facility] Heart Rate 67 06/28/2018 [facility] Respitory Rate 16 06/28/2018 [facility] Height 160.02 cm 06/28/2018 [facility] Weight 98.182 06/28/2018 [facility] BMI Calculated 38.34 06/28/2018 [facility] Weight 98.182 06/20/2018 [facility] Temperature Oral (F) 99.5 F 06/20/2018 [facility] Heart Rate 56 06/20/2018 [facility] Systolic (mm Hg) 115 06/20/2018 [facility] Diastolic (mm Hg) 74 06/20/2018 [facility] Weight 94.545 03/21/2018 [facility] BMI Calculated 36.92 03/21/2018 [facility] Systolic (mm Hg) 144 03/21/2018 [facility] Diastolic (mm Hg) 81 03/21/2018 [facility] Respitory Rate 22 03/21/2018 [facility] Heart Rate 66 03/21/2018 [facility] Height 160.02 cm 03/21/2018 [facility] Heart Rate 68 03/07/2018 [facility] Systolic (mm Hg) 161 03/07/2018 [facility] Diastolic (mm Hg) 93 03/07/2018 [facility] Temperature Oral (F) 99.2 F 03/07/2018 [facility] Height 160.02 cm 03/07/2018 [facility] Weight 94.318 03/07/2018 [facility] BMI Calculated 36.83 03/07/2018 [facility] BMI Calculated 36.57 02/14/2018 [facility] Weight 93.636 02/14/2018 [facility] Height 160.02 cm 02/14/2018 [facility] Respitory Rate 16 02/14/2018 [facility] Heart Rate 72 02/14/2018 [facility] Systolic (mm Hg) 122 02/14/2018 [facility] Diastolic (mm Hg) 74 02/14/2018 [facility] Systolic (mm Hg) 110 02/04/2018 [facility] Diastolic (mm Hg) 54 02/04/[address] [facility] [address] Respitory Rate 18 02/04/2018 [facility] Systolic (mm Hg) 116 02/04/2018 [facility] Diastolic (mm Hg) 57 02/04/[address] [facility] [address] Respitory Rate 18 02/04/2018 [facility] Systolic (mm Hg) 95 02/04/2018 [facility] Diastolic (mm Hg) 49 02/04/[address] [facility] [address] Respitory Rate 18 02/04/2018 [facility] Height 160.02 cm 02/04/2018 [facility] Weight 95.455 02/04/2018 [facility] BMI Calculated 37.28 02/04/2018 [facility] Height 160.02 cm 01/24/2018 [facility] BMI Calculated 37.46 01/24/2018 [facility] Weight 95.909 01/24/2018 [facility] Respitory Rate 14 01/24/2018 [facility] Temperature Oral (F) 98.2 F 01/24/2018 [facility] Heart Rate 60 01/24/2018 [facility] Systolic (mm Hg) 91 01/24/2018 [facility] Diastolic (mm Hg) 59 01/24/2018 [facility] BMI Calculated 37.19 01/17/2018 [facility] Weight 95.227 01/17/2018 [facility] Height 160.02 cm 01/17/2018 [facility] Temperature Oral (F) 99.2 F 01/17/2018 [facility] Heart Rate 66 01/17/2018 [facility] Systolic (mm Hg) 126 01/17/2018 [facility] Diastolic (mm Hg) 82 01/17/2018 [facility] Systolic (mm Hg) 114 01/10/2018 [facility] Diastolic (mm Hg) 65 01/10/[address] [facility] [address] Heart Rate 60 01/10/2018 [facility] Respitory Rate 18 01/10/2018 [facility] Respitory Rate 18 01/10/2018 [facility] Heart Rate 87 01/10/2018 [facility] Temperature Oral (F) 98.7 F 01/10/2018 [facility] Systolic (mm Hg) 125 01/10/2018 [facility] Diastolic (mm Hg) 90 01/10/[address] [facility] [address] BMI Calculated 38.7 01/10/2018 [facility] Weight 102.273 01/10/2018 [facility] Height 162.56 cm 01/10/2018 [facility] Weight 98.182 12/31/2017 [facility] Height 160.02 cm 12/31/2017 [facility] BMI Calculated 38.34 12/31/2017 [facility] Heart Rate 72 12/31/2017 [facility] Systolic (mm Hg) 132 12/31/2017 [facility] t Diastolic (mm Hg) 76 12/31/[address] [facility] [address] Temperature Oral (F) 99.3 F 12/31/2017 [facility] Resp[facility] Rate 18 12/31/2017 [facility] BMI Calculated 38.37 12/31/2017 [facility] Temperature Oral (F) 99.7 F 12/31/2017 [facility] Height 160.02 cm 12/31/2017 [facility] Weight 98.239 12/31/2017 [facility] Heart Rate 60 12/31/2017 [facility] Systolic (mm Hg) 124 12/31/2017 [facility] Diastolic (mm Hg) 83 12/31/2017 [facility] BMI Calculated 40.83 11/29/2017 [facility] Weight 104.545 11/29/2017 [facility] Systolic (mm Hg) 124 11/29/2017 [facility] Diastolic (mm Hg) 83 11/29/2017 [facility] Heart Rate 89 11/29/2017 [facility] Respitory Rate 20 11/29/2017 [facility] Height 160.02 cm 11/29/2017 [facility] BMI Calculated 38.74 10/12/2017 [facility] Weight 99.205 10/12/2017 [facility] Heart Rate 75 10/12/2017 [facility] Temperature Oral (F) 99.8 F 10/12/2017 [facility] Systolic (mm Hg) 124 10/12/2017 [facility] Diastolic (mm Hg) 81 10/12/2017 [facility] Height 160.02 cm 10/12/2017 [facility] Height 160.02 cm 09/04/2017 [facility] BMI Calculated 38.41 09/04/2017 [facility] Weight 98.352 09/04/2017 [facility] Heart Rate 80 09/04/2017 [facility] Temperature Oral (F) 99.6 F 09/04/2017 [facility] Systolic (mm Hg) 133 09/04/2017 [facility] Diastolic (mm Hg) 84 09/04/2017 [facility] Height 160.02 cm 08/09/2017 [facility] BMI Calculated 38.52 08/09/2017 [facility] Weight 98.636 08/09/2017 [facility] Systolic (mm Hg) 101 08/09/2017 [facility] Diastolic (mm Hg) 69 08/09/2017 [facility] Heart Rate 75 08/09/2017 [facility] Temperature Oral (F) 99.5 F 08/09/2017 [facility] Systolic (mm Hg) 146 07/26/2017 [place] Diastolic (mm Hg) 70 07/26/2017 [place] Temperature Oral (F) 97.8 F 07/26/[address] [facility] Heart Rate 69 {beats}/min 07/26/[address] [facility] Respitory Rate 16 07/26/[address] [facility] Systolic (mm Hg) 96 07/26/2017 [place] Diastolic (mm Hg) 52 07/26/2017 [place] Temperature Oral (F) 97.8 F 07/26/[address] [facility] Heart Rate 68 {beats}/min 07/26/[address] [facility] Respitory Rate 18 07/26/[address] [facility] Systolic (mm Hg) 111 07/25/2017 [place] Diastolic (mm Hg) 67 07/25/2017 [place] Temperature Oral (F) 98.4 F 07/25/[address] [facility] Heart Rate 86 {beats}/min 07/25/[address] [facility] Respitory Rate 18 07/25/[address] [facility] Systolic (mm Hg) 109 07/25/2017 [place] Diastolic (mm Hg) 53 07/25/2017 [place] Temperature Oral (F) 97.8 F 07/25/[address] [facility] Heart Rate 67 {beats}/min 07/25/[address] [facility] Respitory Rate 67 07/25/[address] [facility] Systolic (mm Hg) 136 07/24/2017 [place] Diastolic (mm Hg) 70 07/24/2017 [place] Temperature Oral (F) 99.1 F 07/24/[address] [facility] Heart Rate 81 {beats}/min 07/24/[address] [facility] Respitory Rate 20 07/24/[address] [facility] Systolic (mm Hg) 150 07/24/2017 [place] Diastolic (mm Hg) 77 07/24/2017 [place] Temperature Oral (F) 98.6 F 07/24/[address] [facility] Heart Rate 95 {beats}/min 07/24/[address] [facility] Respitory Rate 18 07/24/[address] [facility] Systolic (mm Hg) 120 07/24/2017 [place] Diastolic (mm Hg) 50 07/24/2017 [place] Temperature Oral (F) 98 F 07/24/[address] [facility] Heart Rate 82 {beats}/min 07/24/[address] [facility] Respitory Rate 18 07/24/[address] [facility] Systolic (mm Hg) 135 07/24/2017 [place] Diastolic (mm Hg) 61 07/24/2017 [place] Temperature Oral (F) 98 F 07/24/[address] [facility] Heart Rate 75 {beats}/min 07/24/[address] [facility] Respitory Rate 18 07/24/[address] [facility] Systolic (mm Hg) 112 07/23/2017 [place] Diastolic (mm Hg) 59 07/23/2017 [place] Temperature Oral (F) 99.8 F 07/23/[address] [facility] Heart Rate 83 {beats}/min 07/23/[address] [facility] Respitory Rate 18 07/23/[address] [facility] Systolic (mm Hg) 133 07/22/2017 [place] Diastolic (mm Hg) 67 07/22/2017 [place] Temperature Oral (F) 98.2 F 07/22/[address] [facility] Heart Rate 70 {beats}/min 07/22/[address] [facility] Respitory Rate 18 07/22/[address] [facility] Systolic (mm Hg) 112 07/22/2017 [place] Diastolic (mm Hg) 61 07/22/2017 [place] Temperature Oral (F) 98 F 07/22/[address] [facility] Heart Rate 62 {beats}/min 07/22/[address] [facility] Respitory Rate 20 07/22/[address] [facility] Systolic (mm Hg) 118 07/21/2017 [place] Diastolic (mm Hg) 55 07/21/2017 [place] Temperature Oral (F) 97.7 F 07/21/[address] [facility] Heart Rate 67 {beats}/min 07/21/[address] [facility] Respitory Rate 18 07/21/[address] [facility] Systolic (mm Hg) 115 07/21/2017 [place] Diastolic (mm Hg) 56 07/21/2017 [place] Temperature Oral (F) 97.7 F 07/21/[address] [facility] Heart Rate 74 {beats}/min 07/21/[address] [facility] Respitory Rate 18 07/21/[address] [facility] Systolic (mm Hg) 146 07/20/2017 [place] Diastolic (mm Hg) 80 07/20/2017 [place] Temperature Oral (F) 98.6 F 07/20/[address] [facility] Heart Rate 83 {beats}/min 07/20/[address] [facility] Respitory Rate 20 07/20/[address] [facility] Systolic (mm Hg) 136 07/20/2017 [place] Diastolic (mm Hg) 76 07/20/2017 [place] Temperature Oral (F) 97.8 F 07/20/[address] [facility] Heart Rate 82 {beats}/min 07/20/[address] [facility] Respitory Rate 20 07/20/[address] [facility] Systolic (mm Hg) 109 07/20/2017 [place] Diastolic (mm Hg) 52 07/20/2017 [place] Temperature Oral (F) 97.3 F 07/20/[address] [facility] Heart Rate 63 {beats}/min 07/20/[address] [facility] Respitory Rate 97.3 07/20/[address] [facility] Systolic (mm Hg) 139 07/19/2017 [place] Diastolic (mm Hg) 72 07/19/2017 [place] Temperature Oral (F) 98.4 F 07/19/[address] [facility] Heart Rate 88 {beats}/min 07/19/[address] [facility] Respitory Rate 20 07/19/[address] [facility] Systolic (mm Hg) 143 07/19/2017 [place] Diastolic (mm Hg) 79 07/19/2017 [place] Temperature Oral (F) 98.7 F 07/19/[address] [facility] Heart Rate 87 {beats}/min 07/19/[address] [facility] Respitory Rate 22 07/19/[address] [facility] Systolic (mm Hg) 127 07/19/2017 [place] Diastolic (mm Hg) 59 07/19/2017 [place] Temperature Oral (F) 98.1 F 07/19/[address] [facility] Heart Rate 73 {beats}/min 07/19/[address] [facility] Respitory Rate 18 07/19/[address] [facility] Systolic (mm Hg) 119 07/18/2017 [place] Diastolic (mm Hg) 56 07/18/2017 [place] Temperature Oral (F) 99.6 F 07/18/[address] [facility] Heart Rate 78 {beats}/min 07/18/[address] [facility] Respitory Rate 18 07/18/[address] [facility] Systolic (mm Hg) 138 07/18/2017 [place] Diastolic (mm Hg) 79 07/18/2017 [place] Temperature Oral (F) 98.2 F 07/18/[address] [facility] Heart Rate 88 {beats}/min 07/18/[address] [facility] Respitory Rate 18 07/18/[address] [facility] Systolic (mm Hg) 128 07/18/2017 [place] Diastolic (mm Hg) 57 07/18/2017 [place] Temperature Oral (F) 98.7 F 07/18/[address] [facility] Heart Rate 77 {beats}/min 07/18/[address] [facility] Respitory Rate 18 07/18/[address] [facility] Systolic (mm Hg) 126 07/17/2017 [place] Diastolic (mm Hg) 68 07/17/2017 [place] Temperature Oral (F) 98.4 F 07/17/[address] [facility] Heart Rate 74 {beats}/min 07/17/[address] [facility] Respitory Rate 18 07/17/[address] [facility] Systolic (mm Hg) 112 07/17/2017 [place] Diastolic (mm Hg) 56 07/17/2017 [place] Temperature Oral (F) 98.2 F 07/17/[address] [facility] Heart Rate 66 {beats}/min 07/17/[address] [facility] Respitory Rate 18 07/17/[address] [facility] Systolic (mm Hg) 137 07/16/2017 [place] Diastolic (mm Hg) 74 07/16/2017 [place] Temperature Oral (F) 98.2 F 07/16/[address] [facility] Heart Rate 78 {beats}/min 07/16/[address] [facility] Respitory Rate 18 07/16/[address] [facility] Systolic (mm Hg) 139 07/16/2017 [place] Diastolic (mm Hg) 63 07/16/2017 [place] Temperature Oral (F) 98.7 F 07/16/[address] [facility] Heart Rate 77 {beats}/min 07/16/[address] [facility] Respitory Rate 20 07/16/[address] [facility] Systolic (mm Hg) 117 07/16/2017 [place] Diastolic (mm Hg) 60 07/16/2017 [place] Temperature Oral (F) 98 F 07/16/[address] [facility] Heart Rate 68 {beats}/min 07/16/[address] [facility] Respitory Rate 18 07/16/[address] [facility] Systolic (mm Hg) 133 07/15/2017 [place] Diastolic (mm Hg) 79 07/15/2017 [place] Temperature Oral (F) 98.2 F 07/15/[address] [facility] Heart Rate 85 {beats}/min 07/15/[address] [facility] Respitory Rate 18 07/15/[address] [facility] Systolic (mm Hg) 95 07/15/2017 [place] Diastolic (mm Hg) 64 07/15/2017 [place] Temperature Oral (F) 98.4 F 07/15/[address] [facility] Heart Rate 72 {beats}/min 07/15/[address] [facility] Respitory Rate 18 07/15/[address] [facility] Systolic (mm Hg) 99 07/15/2017 [place] Diastolic (mm Hg) 61 07/15/2017 [place] Temperature Oral (F) 98.6 F 07/15/[address] [facility] Heart Rate 75 {beats}/min 07/15/[address] [facility] Respitory Rate 18 07/15/[address] [facility] Systolic (mm Hg) 111 07/14/2017 [place] Diastolic (mm Hg) 60 07/14/2017 [place] Temperature Oral (F) 98.6 F 07/14/[address] [facility] Heart Rate 75 {beats}/min 07/14/[address] [facility] Respitory Rate 18 07/14/[address] [facility] Systolic (mm Hg) 119 07/14/2017 [place] Diastolic (mm Hg) 57 07/14/2017 [place] Temperature Oral (F) 97.8 F 07/14/[address] [facility] Heart Rate 64 {beats}/min 07/14/[address] [facility] Respitory Rate 18 07/14/[address] [facility] Systolic (mm Hg) 110 07/14/2017 [place] Diastolic (mm Hg) 50 07/14/2017 [place] Temperature Oral (F) 98.4 F 07/14/[address] [facility] Heart Rate 81 {beats}/min 07/14/[address] [facility] Respitory Rate 18 07/14/[address] [facility] Systolic (mm Hg) 103 07/13/2017 [place] Diastolic (mm Hg) 56 07/13/2017 [place] Temperature Oral (F) 98.7 F 07/13/[address] [facility] Heart Rate 73 {beats}/min 07/13/[address] [facility] Respitory Rate 18 07/13/[address] [facility] Systolic (mm Hg) 120 07/13/2017 [place] Diastolic (mm Hg) 66 07/13/2017 [place] Temperature Oral (F) 98.2 F 07/13/[address] [facility] Heart Rate 71 {beats}/min 07/13/[address] [facility] Respitory Rate 18 07/13/[address] [facility] Systolic (mm Hg) 128 07/13/2017 [place] Diastolic (mm Hg) 60 07/13/2017 [place] Temperature Oral (F) 97.9 F 07/13/[address] [facility] Heart Rate 79 {beats}/min 07/13/[address] [facility] Respitory Rate 18 07/13/[address] [facility] Systolic (mm Hg) 140 07/12/2017 [place] Diastolic (mm Hg) 75 07/12/2017 [place] Temperature Oral (F) 98.9 F 07/12/[address] [facility] Heart Rate 81 {beats}/min 07/12/[address] [facility] Respitory Rate 20 07/12/[address] [facility] Systolic (mm Hg) 105 07/12/2017 [place] Diastolic (mm Hg) 55 07/12/2017 [place] Temperature Oral (F) 98 F 07/12/[address] [facility] Heart Rate 60 {beats}/min 07/12/[address] [facility] Respitory Rate 16 07/12/[address] [facility] Systolic (mm Hg) 115 07/12/2017 [place] Diastolic (mm Hg) 59 07/12/2017 [place] Temperature Oral (F) 98.2 F 07/12/[address] [facility] Heart Rate 79 {beats}/min 07/12/[address] [facility] Respitory Rate 20 07/12/[address] [facility] Systolic (mm Hg) 138 07/11/2017 [place] Diastolic (mm Hg) 74 07/11/2017 [place] Temperature Oral (F) 98.9 F 07/11/[address] [facility] Heart Rate 72 {beats}/min 07/11/[address] [facility] Respitory Rate 18 07/11/[address] [facility] Systolic (mm Hg) 102 07/11/2017 [place] Diastolic (mm Hg) 56 07/11/2017 [place] Temperature Oral (F) 97.8 F 07/11/[address] [facility] Heart Rate 76 {beats}/min 07/11/[address] [facility] Respitory Rate 19 07/11/[address] [facility] Systolic (mm Hg) 132 07/10/2017 [place] Diastolic (mm Hg) 66 07/10/2017 [place] Temperature Oral (F) 98.4 F 07/10/[address] [facility] Heart Rate 83 {beats}/min 07/10/[address] [facility] Respitory Rate 20 07/10/[address] [facility] Systolic (mm Hg) 117 07/10/2017 [place] Diastolic (mm Hg) 61 07/10/2017 [place] Temperature Oral (F) 98.4 F 07/10/[address] [facility] Heart Rate 63 {beats}/min 07/10/[address] [facility] Respitory Rate 16 07/10/[address] [facility] Systolic (mm Hg) 110 07/10/2017 [place] Diastolic (mm Hg) 52 07/10/2017 [place] Temperature Oral (F) 97.8 F 07/10/[address] [facility] Heart Rate 74 {beats}/min 07/10/[address] [facility] Respitory Rate 18 07/10/[address] [facility] Systolic (mm Hg) 112 07/09/2017 [place] Diastolic (mm Hg) 64 07/09/2017 [place] Temperature Oral (F) 100.2 F 07/09/[address] [facility] Heart Rate 87 {beats}/min 07/09/[address] [facility] Respitory Rate 20 07/09/[address] [facility] Systolic (mm Hg) 98 07/09/2017 [place] Diastolic (mm Hg) 58 07/09/2017 [place] Temperature Oral (F) 98.4 F 07/09/[address] [facility] Heart Rate 73 {beats}/min 07/09/[address] [facility] Respitory Rate 19 07/09/[address] [facility] Systolic (mm Hg) 119 07/09/2017 [place] Diastolic (mm Hg) 66 07/09/2017 [place] Temperature Oral (F) 98.7 F 07/09/[address] [facility] Heart Rate 66 {beats}/min 07/09/[address] [facility] Respitory Rate 16 07/09/[address] [facility] Systolic (mm Hg) 124 07/08/2017 [place] Diastolic (mm Hg) 59 07/08/2017 [place] Temperature Oral (F) 99.1 F 07/08/[address] [facility] Heart Rate 85 {beats}/min 07/08/[address] [facility] Respitory Rate 18 07/08/[address] [facility] Systolic (mm Hg) 111 07/08/2017 [place] Diastolic (mm Hg) 56 07/08/2017 [place] Temperature Oral (F) 99.1 F 07/08/[address] [facility] Heart Rate 68 {beats}/min 07/08/[address] [facility] Respitory Rate 24 07/08/[address] [facility] Weight 223 07/08/[facility] Systolic (mm Hg) 135 07/08/2017 [place] Diastolic (mm Hg) 55 07/08/2017 [place] Temperature Oral (F) 97.3 F 07/08/[address] [facility] Heart Rate 77 {beats}/min 07/08/[address] [facility] Respitory Rate 18 07/08/[address] [facility] Systolic (mm Hg) 128 07/07/2017 [place] Diastolic (mm Hg) 62 07/07/2017 [place] Temperature Oral (F) 99.1 F 07/07/[address] [facility] Heart Rate 85 {beats}/min 07/07/[address] [facility] Respitory Rate 20 07/07/[address] [facility] Systolic (mm Hg) 103 07/07/2017 [place] Diastolic (mm Hg) 53 07/07/2017 [place] Temperature Oral (F) 98.4 F 07/07/[address] [facility] Heart Rate 59 {beats}/min 07/07/[address] [facility] Respitory Rate 20 07/07/[address] [facility] Systolic (mm Hg) 104 07/07/2017 [place] Diastolic (mm Hg) 52 07/07/2017 [place] Temperature Oral (F) 100.7 F 07/07/[address] [facility] Heart Rate 86 {beats}/min 07/07/[address] [facility] Respitory Rate 18 07/07/[address] [facility] Systolic (mm Hg) 113 07/06/2017 [place] Diastolic (mm Hg) 49 07/06/2017 [place] Temperature Oral (F) 98.7 F 07/06/[address] [facility] Heart Rate 73 {beats}/min 07/06/[address] [facility] Respitory Rate 21 07/06/[address] [facility] Systolic (mm Hg) 148 07/06/2017 [place] Diastolic (mm Hg) 79 07/06/2017 [place] Temperature Oral (F) 98.6 F 07/06/[address] [facility] Heart Rate 79 {beats}/min 07/06/[address] [facility] Respitory Rate 20 07/06/[address] [facility] Systolic (mm Hg) 109 07/05/2017 [place] Diastolic (mm Hg) 58 07/05/2017 [place] Temperature Oral (F) 98.4 F 07/05/[address] [facility] Heart Rate 78 {beats}/min 07/05/[address] [facility] Resp[facility] Rate 20 07/05/[address] [facility] Systolic (mm Hg) 99 07/05/2017 [place] Diastolic (mm Hg) 44 07/05/2017 [place] Temperature Oral (F) 98.6 F 07/05/[address] [facility] Heart Rate 69 {beats}/min 07/05/[address] [facility] Respitory Rate 22 07/05/[address] [facility] Systolic (mm Hg) 105 07/05/2017 [place] Diastolic (mm Hg) 55 07/05/2017 [place] Temperature Oral (F) 98.4 F 07/05/[address] [facility] Heart Rate 72 {beats}/min 07/05/[address] [facility] Respitory Rate 18 07/05/[address] [facility] Systolic (mm Hg) 87 07/04/2017 [place] Diastolic (mm Hg) 42 07/04/2017 [place] Temperature Oral (F) 98.4 F 07/04/[address] [facility] Heart Rate 78 {beats}/min 07/04/[address] [facility] Respitory Rate 20 07/04/[address] [facility] Systolic (mm Hg) 122 07/04/2017 [place] Diastolic (mm Hg) 56 07/04/2017 [place] Temperature Oral (F) 98 F 07/04/[address] [facility] Heart Rate 71 {beats}/min 07/04/[address] [facility] Respitory Rate 20 07/04/[address] [facility] Systolic (mm Hg) 122 07/04/2017 [place] Diastolic (mm Hg) 56 07/04/2017 [place] Heart Rate 71 {beats}/min 07/04/[address] [facility] Systolic (mm Hg) 128 07/04/2017 [place] Diastolic (mm Hg) 52 07/04/2017 [place] Temperature Oral (F) 98 F 07/04/[address] [facility] Heart Rate 86 {beats}/min 07/04/[address] [facility] Respitory Rate 20 07/04/[address] [facility] Systolic (mm Hg) 98 07/04/2017 [place] Diastolic (mm Hg) 54 07/04/2017 [place] Systolic (mm Hg) 91 07/03/2017 [place] Diastolic (mm Hg) 49 07/03/2017 [place] Temperature Oral (F) 98.6 F 07/03/[address] [facility] Heart Rate 83 {beats}/min 07/03/[address] [facility] Respitory Rate 20 07/03/[address] [facility] Temperature Oral (F) 98.6 F 07/03/[address] [facility] Heart Rate 83 {beats}/min 07/03/[address] [facility] Respitory Rate 18 07/03/[address] [facility] Height 63 07/03/2017 [facility] Heart Rate 82 06/17/2017 [facility] Rate 18 06/17/2017 [facility] Systolic (mm Hg) 105 06[facility]17/2017 [facility] Diastolic (mm Hg) 64 06/17/[address] Temperature Oral (F) 98.1 F 06/17/2017 [facility] Heart Rate 78 06/17/2017 [facility] Temperature Oral (F) 98.4 F 06/17/2017 [facility] Systolic (mm Hg[facility] 112 06/17/2017 [facility] Diastolic (mm Hg) 62 06/17/[address] [facility] Respitory Rate 18 06/17/2017 [facility] Respitory Rate 18 06/17/2017 [facility] Heart Rate 65 06/17/2017 [facility] Temperature Oral (F) 98.1 F 06/17/2017 [facility] Systolic (mm Hg) 135 06/17/2017 [facility] Diastolic (mm Hg) 79 06/17/[address] Height 160.02 cm 06/16/2017 [facility] BMI Calculated 43.91 06/16/2017 [facility] Weight 112.443 06/16/2017 [facility] Weight 106.818 06/16/2017 [facility] BMI Calculated 41.36 04/17/2017 [facility] Weight 105.909 04/17/2017 [facility] Height 160.02 cm 04/17/2017 [facility] Temperature Oral (F) 99.1 F 04/17/2017 [facility] Systolic (mm Hg) 154 04/17/2017 [facility] Diastolic (mm Hg) 99 04/17/[facility] Heart Rate 97 04/17/2017 [facility] Respitory Rate 16 02/03/2016 [facility] Resp[facility] Rate 16 02/03/2016 [facility] Systolic (mm Hg) 134 02/03/2016 [facility] Diastolic (mm Hg) 53 02/03/[facility] Resp[facility] Rate 16 02/03/2016 [facility] Systolic (mm Hg[facility] 108 02/03/2016 [facility] Diastolic (mm Hg) 54 02/03/2016 [facility] Systolic (mm Hg) 113 02/03/2016 [facility] Diastolic (mm Hg) 61 02/03/2016 [facility] Height 172.72 cm 02/03/2016 [facility] Weight 109.091 02/03/2016 [facility] BMI Calculated 36.57 02/03/2016 [facility] Heart Rate 62 02/03/2016 [facility] Temperature Oral (F) 98.7 F 02/03/2016 [facility] Weight 240 01/03/2016 [facility]: [facility]mi Lebronsmita [facility] Height 63 01/03/2016 [facility]: [facility] Zacarias [facility] Diastolic (mm Hg) 88 01/03/2016 [facility]: Rashmi Fraser Systolic (mm Hg) 128 01/03/2016 [facility]: Rashmi Gray [facility] Weight 237 10/04/2015 [facility]: [facility] Vival [facility] Height 63 10/04/2015 [facility]: [facility] Zacarias [facility] Diastolic (mm Hg) 86 10/04/2015 [facility]: Rashmi LebronBria Systolic (mm Hg) 126 10/04/2015 [facility]: [facility] Gray [facility] Weight 231 07/07/2015 [facility]: Rashmi Lebronsmita eta Height 63 07/07/2015 [facility]: [facility]mi Lebronsmita eta Weight 228 06/07/2015 [facility]: Rashmi wagner Height 63 06/07/2015 [facility]: Rashmi Lebronval eta Diastolic (mm Hg) 100 06/07/2015 [facility]: Rashmi Fraser Systolic (mm Hg) 150 06/07/2015 [facility]: Rashmi casealeta Weight 234 03/08/2015 [facility]: Rashmi wagner Height 63 03/08/2015 [facility]: Rashmi Lebronsmita eta Diastolic (mm Hg) 86 03/08/2015 [facility]: Rashmi Fraser Systolic (mm Hg) 124 03/08/2015 [facility]: Rashmi casealebambi Weight 231 01/04/2015 [facility]: Rashmi wagner Height 63 01/04/2015 [facility]: Rashmi Lebronsmita kristy Diastolic (mm Hg) 76 01/04/2015 [facility]: Rashmi Fraser Systolic (mm Hg) 116 01/04/2015 [facility]: Rashmi ceballos Weight 230 12/24/2014 [facility]: Rashmi wagner Height 63 12/24/2014 [facility]: Rashmi wagner Diastolic (mm Hg) 80 12/24/2014 [facility]: Rashmi Fraser Systolic (mm Hg) 110 12/24/2014 [facility]: [facility] ceballos Weight 233 11/05/2014 [facility]: [facility]mi w[facility] Height 63 11/05/2014 [facility]: Rashmi Vismita kristy Diastolic (mm Hg) 74 11/05/2014 [facility]: Rashmi [facility] Systolic (mm Hg) 118 11/05/2014 [facility]: [facility] c[facility]all[facility] Weight 233 11/05/2014 [facility]: [facility] Height 63 11/05/2014 [facility]: [facility] Diastolic (mm Hg) 74 11/05/2014 [facility]: Rashmi [facility] Systolic (mm Hg) 118 11/05/2014 [facility]: Rashmi casealebambi Weight 228 03/23/2014 [facility]: Rashmi w[facility] Height 63 03/23/2014 [facility]: [facility]mi Zacarias [facility] Diastolic (mm Hg) 86 03/23/2014 [facility]: [facility]mi LebronBria Systolic (mm Hg) 130 03/23/2014 [facility]: Rashmi casealebambi Weight 233 02/04/2014 [facility]: [facility]mi w[facility] Height 63 02/04/2014 [facility]: Rashmi Zacarias et[facility] Diastolic (mm Hg) 90 02/04/2014 [facility]: Rashmi [facility] Systolic (mm Hg) 120 02/04/2014 [facility]: [facility] ceballos Weight 230 12/04/2013 [facility]: [facility] Height 63 12/04/2013 [facility]: Rashmi wagner Diastolic (mm Hg) 86 12/04/2013 [facility]: Rashmi [facility] Systolic (mm Hg) 120 12/04/2013 [facility]: [facility] ceballos Weight 228 10/08/2013 [facility] Systolic (mm Hg) 136 10/08/2013 [facility] Diastolic (mm Hg) 78 10/08/2013 [facility] Temperature Oral (F) 99.4 F 10/08/2013 [facility] Heart Rate 81 10/08/2013 [facility] Respitory Rate 18 10/08/2013 [facility] Weight 238 07/02/2013 [facility] Systolic (mm Hg) 111 07/02/2013 [facility] Diastolic (mm Hg) 77 07/02/2013 [facility] Temperature Oral (F) 99 F 07/02/2013 [facility] Heart Rate 88 07/02/2013 [facility] Respitory Rate 18 07/02/2013 [facility] Weight 240 06/05/2013 [facility] Systolic (mm Hg) 124 06/05/2013 [facility] Diastolic (mm Hg) 81 06/05/2013 [facility] Temperature Oral (F) 99.3 F 06/05/2013 [facility] Heart Rate 103 06/05/2013 [facility] Respitory Rate 17 06/05/2013 [facility] Weight 242 05/23/2013 [facility] Systolic (mm Hg) 126 05/23/2013 [facility] Diastolic (mm Hg) 84 05/23/2013 [facility] Temperature Oral (F) 98.7 F 05/23/2013 [facility] Heart Rate 93 05/23/2013 [facility] Weight 204 05/05/2013 [facility] Temperature Oral (F) 98.7 F 05/05/2013 [facility] Systolic (mm Hg) 110 05/05/2013 [facility] Diastolic (mm Hg) 76 05/05/2013 [facility] Heart Rate 97 05/05/2013 [facility] Weight 260 01/28/2013 [facility] Systolic (mm Hg) 122 01/28/2013 [facility] Diastolic (mm Hg) 86 01/28/2013 [facility] Heart Rate 80 01/28/2013 [facility] Temperature Oral (F) 98.7 F 01/28/2013 [facility] Weight 246 05/14/2012 [facility] Temperature Oral (F) 98.6 F 05/14/2012 [facility] Heart Rate 86 05/14/2012 [facility] Systolic (mm Hg) 120 05/14/2012 [facility] Diastolic (mm Hg) 81 05/14/2012 [facility] Weight 246 05/09/2012 [facility] Systolic (mm Hg) 146 05/09/2012 [facility] Diastolic (mm Hg) 75 05/09/2012 [facility] Temperature Oral (F) 99.3 F 05/09/2012 [facility] Heart Rate 92 05/09/2012 [facility] Weight 246 04/24/2012 [facility] Temperature Oral (F) 99.2 F 04/24/2012 [facility] Heart Rate 95 04/24/2012 [facility] Systolic (mm Hg) 145 04/24/2012 [facility] Diastolic (mm Hg) 87 04/24/2012 [facility] Weight 236 09/05/2011 [facility] Temperature Oral (F) 99.0 F 09/05/2011 [facility] Heart Rate 77 09/05/2011 [facility] Systolic (mm Hg) 131 09/05/2011 [facility] Diastolic (mm Hg) 82 09/05/2011 [facility] Weight 230 03/14/2011 [facility] Temperature Oral (F) 99.2 F 03/14/2011 [facility] Heart Rate 79 03/14/2011 [facility] Systolic (mm Hg) 150 03/14/2011 [facility] Diastolic (mm Hg) 90 03/14/2011 [facility] Weight 227 02/20/2011 [facility] Temperature Oral (F) 98.9 F 02/20/2011 [facility] Heart Rate 89 02/20/2011 [facility] Systolic (mm Hg) 133 02/20/2011 [facility] Diastolic (mm Hg) 84 02/20/2011 [facility] Weight 232 01/26/2011 [facility] Temperature Oral (F) 99.2 F 01/26/2011 [facility] Heart Rate 101 01/26/2011 [facility] Systolic (mm Hg) 138 01/26/2011 [facility] Diastolic (mm Hg) 91 01/26/2011 [facility] Weight 226 12/15/2010 [facility] Temperature Oral (F) 99.3 F 12/15/2010 [facility] Heart Rate 96 12/15/2010 [facility] Systolic (mm Hg) 135 12/15/2010 [facility] Diastolic (mm Hg) 91 12/15/2010 [facility] Weight 224 12/01/2010 [facility] Temperature Oral (F) 99.6 F 12/01/2010 [facility] Heart Rate 81 12/01/2010 [facility] Systolic (mm Hg) 131 12/01/2010 [facility] Diastolic (mm Hg) 90 12/01/2010 [facility] Height 63 09/22/2010 [facility] Weight 223 09/22/2010 [facility] Temperature Oral (F) 99.2 F 09/22/2010 [facility] Heart Rate 82 09/22/2010 [facility] Systolic (mm Hg) 122 09/22/2010 [facility] Diastolic (mm Hg) 82 09/22/2010 [facility] Systolic (mm Hg) 121 07/20/2010 [facility] Diastolic (mm Hg) 81 07/20/2010 [facility] Height 63 07/06/2010 [facility] Weight 244 07/06/2010 [facility] Heart Rate 95 07/06/2010 [facility] Systolic (mm Hg) 121 07/06/2010 [facility] Diastolic (mm Hg) 81 07/06/2010 [facility] Temperature Oral (F) 98.9 F 06/27/2010 [facility] Heart Rate 79 06/27/2010 [facility] Systolic (mm Hg) 114 06/27/2010 [facility] Diastolic (mm Hg) 77 06/27/2010 [facility] Temperature Oral (F) 99.4 F 06/21/2010 [facility] Heart Rate 83 06/21/2010 [facility] Systolic (mm Hg) 129 06/21/2010 [facility] Diastolic (mm Hg) 84 06/21/2010 [facility] Weight 224 06/16/2010 [facility] Height 63 06/16/2010 [facility] Systolic (mm Hg) 149 06/16/2010 [facility] Diastolic (mm Hg) 89 06/16/2010 [facility] Height 63 06/02/2010 [facility] Weight 224 06/02/2010 [facility] Heart Rate 81 06/02/2010 [facility] Systolic (mm Hg) 139 06/02/2010 [facility] Diastolic (mm Hg) 91 06/02/2010 [facility] Height 63 05/27/2010 [facility] Weight 224 05/27/2010 [facility] Systolic (mm Hg) 144 05/27/2010 [facility] Diastolic (mm Hg) 95 05/27/2010 [facility] Heart Rate 83 05/27/2010 [facility] Systolic (mm Hg) 148 05/24/2010 [facility] Diastolic (mm Hg) 83 05/24/2010 [facility] Temperature Oral (F) 99.2 F 05/24/2010 [facility] Heart Rate 70 05/24/2010 [facility] Systolic (mm Hg) 148 05/24/2010 [facility] Diastolic (mm Hg) 83 05/24/2010 [facility] Weight 224 05/24/2010 [facility] Height 63 05/18/2010 [facility] Weight 223 05/18/2010 [facility] Systolic (mm Hg) 142 05/18/2010 [facility] Diastolic (mm Hg) 99 05/18/2010 [facility] Height 63 05/04/2010 [facility] Weight 223 05/04/2010 [facility] Systolic (mm Hg) 137 05/04/2010 [facility] Diastolic (mm Hg) 85 05/04/2010 [facility] Heart Rate 81 05/04/2010 [facility] Weight 225 04/06/2010 [facility] Temperature Oral (F) 99.6 F 04/06/2010 [facility] Heart Rate 84 04/06/2010 [facility] Systolic (mm Hg) 150 04/06/2010 [facility] Diastolic (mm Hg) 94 04/06/2010 [facility] Height 63 03/14/2010 [facility] Weight 224 03/14/2010 [facility] Temperature Oral (F) 99.2 F 03/14/2010 [facility] Heart Rate 87 03/14/2010 [facility] Systolic (mm Hg) 130 03/14/2010 [facility] Diastolic (mm Hg) 85 03/14/2010 [facility] Height 63 01/26/2010 [facility] Weight 218 01/26/2010 [facility] Temperature Oral (F) 99.2 F 01/26/2010 [facility] Heart Rate 73 01/26/2010 [facility] Systolic (mm Hg) 146 01/26/2010 [facility] Diastolic (mm Hg) 78 01/26/2010 [facility] Encounters Location Location Encounter Encounter Reason Attending ADM DC Stat us Source Details Type Number For Provider Date Date Visit [facility] Office [id number] [place] 07/02 07/02 [place] Visit [id number] Shaq, [facility] Lab Report [id number] [place] 07/02 07[facility] [address] Shaq, [facility] Office [id number] [place] 10/08 10/08 [place] Visit [id number] Shaq, [facility] Bria, Annual 0t2fljf9-3y 12/04 12/04 eC W: Rashmi Weiss cb-48db-92a /2013 [place] e 4-71160vd11 Zaval eta 5d4 [place]ria, Annual [id number]-3b 12/04 12/04 eC W: Rashmi Weiss 3b-4423-9db /2013 [place] e 1-6y18h1f68 Z[facility] eta 533 [place], Annual ml1r05a2-m3 12/04 12/04 eC W: Rashmi Weiss 48-6j97-12b /2013 [place] e 7-0n2714c98 Zaval eta 4d1 [place], Annual [id number] 12/04 12/04 eC W: Rashmi Weiss 8d-47af-a73 /2013 [place] e 5-0e5764394 [facility] eta c41 [place], Annual [id number] 12/04 12/04 eC W: Rashmi Weiss d9-2p70-o32 /2013 [place] chun 5-436f313l3 Zaval eta 41a [place], Annual [id number]-dq 12/04 12/04 eC W: Rashmi GRANT Pysical 92-489a-8d1 /2013 [place] chun 0-8125927or [facility] eta ef4 [place], Annual 2iiq7e5u-u7 12/04 12/04 eC W: Rashmi GRANT Pysical 60-420a-sebas /2013 [place] e e-845nvg842 Zaval eta bf1 [place], Annual [id number]-k9 12/04 12/04 eC W: Rashmi GRANT Pysical d8-67z2-082 /2013 [place] e e-upo19h1xg Zaval eta 376 [place], Annual imu1sh65-kn 12/04 12/04 eC W: Rashmi GRANT Pysical 48-4266-b15 /2013 [place] chun 5-5v163t8xe Zaval eta e58 [place], Annual x4y1i8gp-98 12/04 12/04 eC W: Rashmi GRANT Pysical 1e-4423-bd4 /2013 [place] chun b-066f833gf Zaval eta 112 [place], Annual 03eccebc-d1 12/04 12/04 eC W: Rashmi GRANT Pysical 9f-48ab-81d /2013 [place] chun 1-2f9jo56w0 Zaval eta 3d0 [place], Annual 071g7030-hu 12/04 12/04 eC W: Rashmi GRANT Pysical 89-4790-aeb /2013 [place] chun b-ie9g640w6 Zaval eta 027 [place], Annual 41pm450g-iy 12/04 12/04 eC W: Rashmi GRANT Pysical b8-6j4h-vz1 /2013 [place] chun 4-z8741p98z Zaval eta sebas [place], Annual cb75z608-o4 12/04 12/04 eC W: Rashmi GRANT Pysical 56-4204-a50 /2013 [place] chun 5-25602b646 Zaval eta a24 [place], Annual 2ko5c43y-0i 12/04 12/04 eC W: Rashmi GRANT Pysical 01-41db-a15 /2013 [place] chun 4-2h0118b6l Zaval eta 40c [place], Annual [id number] 12/04 12/04 eC W: Rashmi GRANT Pysical 79-24s6-s48 /2013 [place] chun 6-196cfafea Zaval eta 007 [place], Annual 1n8a5ndn-30 12/04 12/04 eC W: Rashmi GRANT Pysical 77-50p6-269 /2013 [place] chun 6-ih3657017 Zaval eta 899 [place]ria, Annual 7i8eq04r-96 12/04 12/04 eC W: Rashmi Reedsical 4c-8z36-35k /2013 [place] chun 5-9o7476146 Zaval eta 9e3 [place], Annual 3h306dv4-4f 12/04 12/04 eC W: Rashmi GRANT Pysical 82-3v47-7i1 /2013 [place] chun 0-9e8lx5256 Zaval eta 8b6 B[place], Annual [id number] 12/04 12/04 eC W: Rashmi GRANT Pysical 00-4491-868 /2013 [place] chun 9-03h14n123 Zaval eta 84c [place], Annual j6i09602-27 12/04 12/04 eC W: Rashmi Reedsical 91-44ff-a82 /2013 [place] chun 9-1taw9y465 Zaval eta 48c B[place], Annual 060189if-75 12/04 12/04 eC W: Rashmi Reedsical a9-1e46-6ax /2013 [place] chun a-c75kp7u44 Zaval eta c91 [place], Annual g25x9r43-86 12/04 12/04 eC W: Rashmi Reedsical 66-9cv7-ecu /2013 [place] chun f-o3h6w0z19 Zaval eta 144 [facility] Lab Report [id number] [place] 12/05 12/05 [place] [id number] Shaq, /2013 [facility] [place] Bria, Unknown [id number] 12/06 12/06 e CW: Rashmi GRANT 4d-7h68-8h3 /2013 Elliott-264r4364d Zaval eta 4ff [place], Unknown [id number] 12/06 12/06 e CW: Rashmi GRANT 03-3c4f-u61 /2013 Rashmi 3-8493q0178 Zaval eta 565 [place], Unknown [id number]-05 12/06 12/06 e CW: Rashmi GRANT e1-3ir2-686 /2013 Rashmi 3-32f56797f Zaval eta 600 [place], Unknown [id number]-2o 12/06 12/06 e CW: Rashmi GRANT 1e-4041-bbc /2013 Rashmi 8-y67y3uz59 Zaval eta 6b2 [place], Unknown [id number] 12/06 12/06 e CW: Rashmi GRANT cb-2j21-4o9 /2013 Rashmi 6-174506rvn Zaval eta 2c0 [place], Unknown [id number] 12/06 12/06 e CW: Rashmi GRANT db-4s94-fdj Rashmi chun-eq8w8r6q8 Zaval eta 7e7 [place], Unknown [id number]-22 12/06 12/06 e CW: Rashmi GRANT 23-5l41-360 /2013 Rashmi 9-5207535h8 Zaval eta 65d [place], Unknown [id number] 12/06 12/06 e CW: Rashmi GRANT 22-456b-91f /2013 Delfino-yrc7a3m31 Zaval eta d53 [place], Unknown [id number] 12/06 12/06 e CW: Rashmi GRANT 6c-20b5-2ye /2013 Rashmi chun-8516sg2a7 Zaval eta 424 [place], Unknown [id number] 12/06 12/06 e CW: Rashmi GRANT 00-429c-b45 /2013 Elliott-388517jy8 Zaval eta b3b [place], Unknown [id number] 12/06 12/06 e CW: Rashmi GRANT c9-4066-938 /2013 Rashmi 8-62605sest Zaval eta ab7 [place], Unknown [id number] 12/06 12/06 e CW: Rashmi GRANT 97-44i6-rur /2013 Angie-11m5i6331 Zaval eta 40e [place], Unknown [id number]-uc 12/06 12/06 e CW: Rashmi GRANT 8e-4412-894 /2013 Rashmi 1-189pwcg34 Zaval eta 9b7 [place], Unknown [id number] 12/06 12/06 e CW: Rashmi GRANT a7-81j6-d2q /2013 Rashmi hernandez-586909o3e Zaval eta b61 [place], Unknown [id number] 12/06 12/06 e CW: Rashmi GRANT e8-457a-834 /2013 Rashmi 8-t6y110056 Zaval eta 616 [place], Unknown [id number] 12/06 12/06 e CW: Rashmi GRANT f9-3v39-095 /2013 Rashmi 1-c137tz504 Zaval eta f73 [place], Unknown [id number] 12/06 12/06 e CW: Rashmi GRANT 88-9ct2-zg6 /2013 Rashmi torres-c8518tz98 Zaval eta ef3 [place], Unknown [id number] 12/06 12/06 e CW: Rashmi GRANT fd-43eb-ba7 /2013 Rashmi munoz-1xbbl3r52 Zaval eta 6c7 [place], Unknown [id number] 12/06 12/06 e CW: Rashmi GRANT 91-01y2-23e /2013 Rashmi munoz-1vpy63z58 Zaval eta f84 [place], Unknown [id number] 12/06 12/06 e CW: Rashmi GRANT 9b-7j99-s91 /2013 Rashmi chun-773d91239 Zaval eta 92a [place], Unknown [id number] 12/06 12/06 e CW: Rashmi GRANT c5-434a-9f3 /2013 Rashmi chun-3n39c6d96 Zaval eta d2f [place], Unknown [id number] 12/06 12/06 e CW: Rashmi GRANT 9d-4789-8e4 /2013 Rashmi wolf-qi1w23g86 Zaval eta a9f [place], Unknown [id number] 12/06 12/06 e CW: Rashmi GRANT be-35k7-6o5 Rashmi 5-4697jqu3m Zaval eta 5f7 [place], Unknown [id number] 12/06 12/06 e CW: Rashmi GRANT 39-9fs0-7jg Angie-pcwd9n45e Zaval eta 7aa [facility] Outpt Diag [id number] [place] 12/12 12/13 [facility] Outpatient [id number] [place] 12/12 12/[address] [facility] [address] [facility] es Imaging t [facility] Bria, 2 Weeks 8d2y673a-8e 12/18 12/18 e CW: Rashmi GRANT (Reason: ac-44da-ae Evangelina se Thyroid , 9-x983yu77r Za valeta fibromyalgi 231 a ,osteoporos is ) Bria, 2 Weeks y1i2u20q-t9 12/18 12/18 e CW: Rashmi GRANT (Reason: db-9z1g-x3i Evangelina se Thyroid , 7-2zj6073k3 Za valeta fibromyalgi d33 a ,osteoporos is ) B[place], 2 Weeks 72b638z3-l9 12/18 12/18 e CW: Rashmi GRANT (Reason: bf-3yb5-089 Evangelina se Thyroid , d-2yn4156w3 Za valeta fibromyalgi d70 a ,osteoporos is ) Bria, 2 Weeks zc941u59-64 12/18 12/18 e CW: Rashmi GRANT (Reason: 39-7y84-854 Evangelina se Thyroid , c-z8k8i5w90 Za valeta fibromyalgi abd a ,osteoporos is ) Bria, 2 Weeks 26xp387h-2s 12/18 12/18 e CW: Rashmi GRANT (Reason: 0e-461d-aa Evangelina se Thyroid , f-w8fh2a546 Za valeta fibromyalgi 2d9 a ,osteoporos is ) Bria, 2 Weeks 7276n5g4-8w 12/18 12/18 e CW: Rashmi GRANT (Reason: b5-47ba-80c /2013 Evangelina se Thyroid , 9-20h8i2k79 Za valeta fibromyalgi a34 a ,osteoporos is ) Bria, 2 Weeks f8382apo-69 12/18 12/18 e CW: Rashmi GRANT (Reason: 7a-452a-9ca Evangelina se Thyroid , 7-pbwgh7a9i Za valeta fibromyalgi 5ca a ,osteoporos is ) Bria, 2 Weeks 3n3ju9ct-94 12/18 12/18 e CW: Rashmi GRANT (Reason: 6d-3cz7-8n3 Evangelina se Thyroid , 4-if1j2b229 Za valeta fibromyalgi b57 a ,osteoporos is ) Bria, 2 Weeks v880y5kt-7a 12/18 12/18 e CW: Rashmi GRANT (Reason: f7-1z5g-m44 Evangelina se Thyroid , 8-8489y6i26 Za valeta fibromyalgi 455 a ,osteoporos is ) Bria, 2 Weeks 366581z6-cb 12/18 12/18 e CW: Rashmi GRANT (Reason: b2-4bdf-b2a Evangelina se Thyroid , a-9202rs223 Za valeta fibromyalgi fc0 a ,osteoporos is ) Bria, 2 Weeks w0ofl854-z8 12/18 12/18 e CW: Rashmi GRANT (Reason: e4-46ba-bd2 Evangelina se Thyroid , 7-5p7p501b0 Za valeta fibromyalgi 35d a ,osteoporos is ) Bria, 2 Weeks k2x7wq38-p8 12/18 12/18 e CW: Rashmi GRANT (Reason: 43-4068-95d Evangelina se Thyroid , 7-593m1573o Za valeta fibromyalgi dce a ,osteoporos is ) Bria, 2 Weeks 7m110c0s-h3 12/18 12/18 e CW: Rashmi GRANT (Reason: 15-440c-b81 Evangelina se Thyroid , 4-gujc4mb4o Za valeta fibromyalgi 7ac a ,osteoporos is ) Bria, 2 Weeks 21s37rk3-4u 12/18 12/18 e CW: Rashmi GRANT (Reason: 69-06v5-032 Evaneglina se Thyroid , 6-z5342afh8 Za valeta fibromyalgi 921 a ,osteoporos is ) Bria, 2 Weeks -h1 12/18 12/18 e CW: Rashmi GRANT (Reason: 46-4378-914 Evangelina se Thyroid , 6-5ks092026 Za valeta fibromyalgi e1d a ,osteoporos is ) Bria, 2 Weeks 2ht78ahj-40 12/18 12/18 e CW: Rashmi GRANT (Reason: 58-4cfb-8d Evangelina se Thyroid , d-v70f787i0 Za valeta fibromyalgi c15 a ,osteoporos is ) Bria, 2 Weeks 31p9b69i-03 12/18 12/18 e CW: Rashmi GRANT (Reason: 18-4906-8a Evangelina se Thyroid , e-v8t260803 Za valeta fibromyalgi 25e a ,osteoporos is ) Bria, 2 Weeks 49uh998i-77 12/18 12/18 e CW: Rashmi GRANT (Reason: 54-16m8-6b9 Evangelina se Thyroid , 0-t7qy6v41e Za valeta fibromyalgi 0ba a ,osteoporos is ) Bria, 2 Weeks 8513p771-9w 12/18 12/18 e CW: Rashmi GRANT (Reason: 74-4628-a Evangelina se Thyroid , d-4y2e9097q Za valeta fibromyalgi f4d a ,osteoporos is ) Bria, 2 Weeks 43986ima-26 12/18 12/18 e CW: Rashmi GRANT (Reason: 24-410e-aed Evangelina se Thyroid , e-lde6d650m Za valeta fibromyalgi 1f2 a ,osteoporos is ) Rbia, 2 Weeks 66p0o9i0-1n 12/18 12/18 e CW: Rashmi GRANT (Reason: 1m65-fk3 Evangelina se Thyroid , 2-9fmn23779 Za valeta fibromyalgi fd0 a ,osteoporos is ) Bria, 2 Weeks 2z617408-7u 12/18 12/18 e CW: Rashmi GRANT (Reason: b5-4029-92b /2013 Evangelina se Thyroid , e-061z02132 Za valeta fibromyalgi 252 a ,osteoporos is ) Bria, 2 Weeks 7n1t492j-11 12/18 12/18 e CW: Rashmi GRANT (Reason: 91-41de-aa1 /2013 Evangelina se Thyroid , c-4vu4i61e9 Za valeta fibromyalgi 311 a ,osteoporos is ) [place], Medications 608s4brw-pq 02/04 02/04 eCW: Rashmi GRANT Issue 0e-434b-a28 /2013 Kyle-r7o28717w Zaval eta ce3 [place], Medications 337h2506-6z 02/04 02/04 eCW: Rashmi GRANT Issue de-7lj3-ui0 /2013 Rashmi b-8hg019jnb Zaval eta c34 [place], Medications 384p5244-90 02/04 02/04 eCW: Rashmi GRANT Issue a4-447e-bb4 /2013 Rashmi 1-5k6097qco Zaval eta 365 [place], Medications 8y3s85t8-3y 02/04 02/04 eCW: Rashmi GRANT Issue 37-4261-9ca /2013 Rashmi 3-l75c65130 Zaval eta 650 [place], Medications 1r357163-7x 02/04 02/04 eCW: Rashmi GRANT Issue f3-470e-8ec /2013 Rashmi 1-tfk8g21id Zaval eta 6ca [place], Medications y36f7f5s-54 02/04 02/04 eCW: Rashmi GRANT Issue 9d-471a-8b7 /2013 Kyle-l333fm993 Zaval eta 83b [place], Medications d4480u39-57 02/04 02/04 eCW: Rashmi GRANT Issue 8b-06f7-37o /2013 Rashmi 1-0v33cn71w Zaval eta 0c5 [place], Medications b25358e2-kj 02/04 02/04 eCW: Rashmi GRANT Issue e0-4911-944 /2013 Elliott-284239y5c Zaval eta 208 [place], Medications y536a039-88 02/04 02/04 eCW: Rashmi GRANT Issue 66-73t1-64b /2013 Elliott-i61j02317 Zaval eta 813 [place], Medications 091n6447-mo 02/04 02/04 eCW: Rashmi GRANT Issue 81-7x84-48b /2013 Rashmi 6-g2f9w8742 Zaval eta 23e [place], Medications hz6yh5l9-94 02/04 02/04 eCW: Rashmi GRANT Issue 8e-4319-diego /2013 Skinny-3617v8wi1 Zaval eta 707 [place], Medications 7myvq72h-76 02/04 02/04 eCW: Rashmi GRANT Issue 58-7r1l-5u7 /2013 Rashmi 8-bj67dk7og Zaval eta 621 [place], Medications 71150ac5-dm 02/04 02/04 eCW: Rashmi GRANT Issue e4-481f-812 /2013 Rashmi 7-k757h2315 Zaval eta ec4 [place], Medications 92646b11-q3 02/04 02/04 eCW: Rashmi GRANT Issue 4f-1ga9-k12 /2013 Rashmi 1-ja9q8l609 Zaval eta 3a5 [place], Medications 105iwc23-46 02/04 02/04 eCW: Rashmi GRANT Issue b0-43ef-82b /2013 Rashmi 5-4073e0ls1 Zaval eta 6ac [place], Medications 35610zs8-1z 02/04 02/04 eCW: Rashmi GRANT Issue c7-4162-823 /2013 Skinny-gi5atsxm9 Zaval eta 90c [place], Medications 2e238be5-8u 02/04 02/04 eCW: Rashmi GRANT Issue f7-3r81-u48 /2013 Rashmi b-hq2m67302 Zaval eta b6f [place], Medications e938b216-1z 02/04 02/04 eCW: Rashmi GRANT Issue 29-43bb-b10 /2013 Kyle-41v79207j Zaval eta 166 [place], Medications 5588fd1z-j7 02/04 02/04 eCW: Rashmi GRANT Issue 22-4348-bef /2013 Rashmi 5-12s470j67 Zaval eta 030 [place], Medications 8e35n780-13 02/04 02/04 eCW: Rashmi GRANT Issue a7-42y6-fcf /2013 Kyle-a6yb18868 Zaval eta 84d [place], Medications 732280b6-47 02/04 02/04 eCW: Rashmi GRANT Issue a7-425d-8d Kyle-3y0wnoi1t Zaval eta 74b [place], Medications 15m6c536-7x 02/04 02/04 eCW: Rashmi GRANT Issue 06-4294-987 /2013 Rashmi 0-98ef1c338 Zaval eta b9a [place], 3 Months 35l00339-c2 03/23 03/23 eCW: Rashmi GRANT (Reason: d0-4706-934 Evangelina se Thyroid , 5-1k2k93b4z Za valeta cholesterol 7eb ) Bria, 3 Months 69958l7j-sg 03/23 03/23 eCW: Rashmi GRANT (Reason: 83-4io5-i53 Evangelina se Thyroid , c-d35n879n5 Za valeta cholesterol 4b6 ) Bria, 3 Months p71239sr-gy 03/23 03/23 eCW: Rashmi GRANT (Reason: e8-47bc-aa Evangelina se Thyroid , d-499718iqt Za valeta cholesterol 732 ) Bria, 3 Months 65228nn6-e0 03/23 03/23 eCW: Rashmi GRANT (Reason: 98-7w4h-6ew Eavngelina se Thyroid , c-573xw3u63 Za valeta cholesterol 6e6 ) Bria, 3 Months lm95cz3j-6c 03/23 03/23 eCW: Rashmi GRANT (Reason: fd-4b7q-jd4 Evangelina se Thyroid , a-8a3tz8590 Za valeta cholesterol b74 ) Bria, 3 Months q965238k-0o 03/23 03/23 eCW: Rashmi GRANT (Reason: 79-7xy7-d28 Evangelina se Thyroid , 1-13031hg53 Za valeta cholesterol fee ) Bria, 3 Months uj2k7lij-q2 03/23 03/23 eCW: Rashmi GRANT (Reason: 75-4230-907 /2013 Evangelina se Thyroid , 1-089c35z55 Za valeta cholesterol 567 ) Bria, 3 Months 1u4vsb4i-3d 03/23 03/23 eCW: Rashmi GRANT (Reason: 06-4961-96a /2013 Evangelina se Thyroid , a-m6g3yd4hz Za valeta cholesterol aaa ) Bria, 3 Months 01xkie5j-qx 03/23 03/23 eCW: Rashmi GRANT (Reason: c2-429f-952 Evangelina se Thyroid , 5-27yv91poy Za valeta cholesterol 816 ) Bria, 3 Months n8t2y0ub-hf 03/23 03/23 eCW: Rashmi GRANT (Reason: 82-9e2x-7b5 Evangelina se Thyroid , c-n64391195 Za valeta cholesterol e3c ) Bria, 3 Months auzv4zo6-zs 03/23 03/23 eCW: Rashmi GRANT (Reason: 73-4cae-b36 Evangelina se Thyroid , c-g722oi23e Za valeta cholesterol b8f ) Bria, 3 Months 0dq92250-i9 03/23 03/23 eCW: Rashmi GRANT (Reason: e8-7o85-ln0 Evangelina se Thyroid , e-h23263326 Za valeta cholesterol 49a ) Bria, 3 Months 20y58813-2d 03/23 03/23 eCW: Rashmi GRANT (Reason: 5e-15u2-4pc Evangelina se Thyroid , d-6505g58ef Za valeta cholesterol 9e0 ) Bria, 3 Months if2r10h6-1u 03/23 03/23 eCW: Rashmi GRANT (Reason: 6f-15m7-ix4 Evangelina se Thyroid , 9-45yl765da Za valeta cholesterol b20 ) Bria, 3 Months 272ew9n3-nn 03/23 03/23 eCW: Rashmi GRANT (Reason: f4-4cdb-99f Evangelina se Thyroid , d-2p71g59o4 Za valeta cholesterol 809 ) Bria, 3 Months o5388qlo-14 03/23 03/23 eCW: Rashmi GRANT (Reason: e7-480f-af5 /2013 Evangelina se Thyroid , 4-4c4hf7709 Za valeta cholesterol 326 ) Bria, 3 Months 9ob26274-43 03/23 03/23 eCW: Rashmi GRANT (Reason: 4c-4228-800 /2013 Evangelina se Thyroid , a-6r12nr6sd Za valeta cholesterol 995 ) Bria, 3 Months 9g87u8pb-z9 03/23 03/23 eCW: Rashmi GRANT (Reason: 37-4031-848 /2013 Evangelina se Thyroid , a-yu83v7758 Za valeta cholesterol 71c ) Bria, 3 Months ye8pwz52-7y 03/23 03/23 eCW: Rashmi GRANT (Reason: 74-497a-93d /2013 Evangelina se Thyroid , 5-4z616mc7z Za valeta cholesterol 890 ) Bria, 3 Months 9mgs82vs-ni 03/23 03/23 eCW: Rashmi GRANT (Reason: dc-4090-bf0 /2013 Evangelina se Thyroid , 3-w1w4o6463 Za valeta cholesterol 5a1 ) Bria, 3 Months 6tdpsxz9-5y 03/23 03/23 eCW: Rashmi GRANT (Reason: 92-19b3-997 /2013 Evangelina se Thyroid , 4-022228k63 Za valeta cholesterol 7b8 ) Bria, Unknown [id number] 05/18 05/18 e CW: Rashmi GRANT 15-1k74-c0u /2014 Rashmi 6-0937f299z Zaval eta ab2 [place], Unknown [id number] 05/18 05/18 e CW: Rashmi GRANT 3e-40ce-a26 /2014 Rashmi 1-1grg3567m Zaval eta 40f [place], Unknown 8hb6j3z3-ko 05/18 05/18 e CW: Rashmi GRANT 11-4n0c-f1x /2014 Rashmi 1-4896u36r6 Zaval eta c5a [place], Unknown [id number]-[id number] 05/18 05/18 e CW: Rashmi GRANT fb-415f-b20 /2014 Elliott-25j80930v Zaval eta cristian [place], Unknown [id number] 05/18 05/18 e CW: Rashmi GRANT 69-429a-900 /2014 Rashmi 8-385140335 Zaval eta 197 [place], Unknown [id number] 05/18 05/18 e CW: Rashmi GRANT 85-6at5-825 /2014 Rashmi 0-k391taxy1 Zaval eta 939 [place], Unknown [id number] 05/18 05/18 e CW: Rashmi GRANT 0c-4491-a9b /2014 Rashmi 2-9b578sw11 Zaval eta 7ec [place], Unknown [id number] 05/18 05/18 e CW: Rashmi GRANT 43-4043-937 /2014 Delfino-n4s3230q2 Zaval eta b56 Bria, Unknown [id number] 05/18 05/18 e CW: Rashmi GRANT 82-431b-8cc /2014 Kyle-3h14j4p32 Zaval eta 1a3 [place], Unknown [id number] 05/18 05/18 e CW: Rashmi GRANT 89-95n9-089 /2014 Angie-8p7u2ias3 Zaval eta bd3 Bria, Unknown [id number] 05/18 05/18 e CW: Rashmi GRANT a4-83g3-ew2 /2014 Rashmi 9-sh3u5lz29 Zaval eta 265 [place], Unknown [id number] 05/18 05/18 e CW: Rashmi GRANT e8-425a-a0a /2014 Rashmi 9-6a7kr15k6 Zaval eta 6c5 [place], Unknown [id number] 05/18 05/18 e CW: Rashmi GRANT ee-4172-bd6 /2014 Rashmi 7-j1u1k5diz Zaval eta 0db [place], Unknown [id number]-93 05/18 05/18 e CW: Rashmi GRANT 07-4198-a7d /2014 Elliott-0hc0h46bz Zaval eta a56 [place], Unknown [id number] 05/18 05/18 e CW: Rashmi GRANT 3e-4546-b0f /2014 Rashmi 3-917j1214g Zaval eta 701 [place], Unknown [id number] 05/18 05/18 e CW: Rashmi GRANT ec-404f-bf3 /2014 Rashmi 2-89ad5k2l5 Zaval eta 1c2 Bria, Unknown [id number] 05/18 05/18 e CW: Rashmi GRANT c3-27v9-6q8 Rashmi 5-d66dga4s5 Zaval eta 767 Bria, Unknown [id number] 05/18 05/18 e CW: Rashmi GRANT 3b-46cf-852 Rashmi 4-6m85v2831 Zaval eta b2b Bria, Unknown [id number] 05/18 05/18 e CW: Rashmi GRANT 41-1a77-4j5 /2014 Rashmi b-dg73acj5x Zaval eta 037 Bria, Unknown [id number] 05/18 05/18 e CW: Rashmi GRANT 52-5qd0-cc5 Rashmi 5-3q9g8w031 Zaval eta 4c2 Bria, 3M X HTN, [id number] 06/22 06/22 eCW: Rashmi GRANT Hyperlipide 9c-8x85-hgd /2014 Rashmi fernandes d-6d36c084i Zaval eta myalgia 518 Bria, 3M X HTN, [id number] 06/22 06/22 eCW: Rashmi GRANT Hyperlipide bc-420a-842 /2014 Rashmi fernandes , 0-qo92f0xt3 Zaval eta myalgia ec9 Bria, 3M X HTN, [id number] 06/22 06/22 eCW: Rashmi GRANT Hyperlipide 89-69p4-9n2 /2014 Rashmi fernandes 2-9qo7a6mu0 Zaval eta myalgia a1a Bria, 3M X HTN, a37ml0nk-g6 06/22 06/22 eCW: Rashmi GRANT Hyperlipide 22-2d57-645 /2014 Rashmi fernandes b-39m77pq01 Zaval eta myalgia 18f Bria, 3M X HTN, [id number] 06/22 06/22 eCW: Rashmi GRANT Hyperlipide 1d-405e-b90 /2014 Rashmi fernandes , 3-212e54751 Zaval eta myalgia 266 Bria, 3M X HTN, j7x3t55t-72 06/22 06/22 eCW: Rashmi GRANT Hyperlipide ac-4305-b66 /2014 Rashmi fernandes d-70whq08y9 Zaval eta myalgia 63a Bria, 3M X HTN, bzpr0q23-9j 06/22 06/22 eCW: Rashmi GRANT Hyperlipide ac-4059-a4f /2014 Rashmi fernandes b-3426253o7 Zaval eta myalgia 314 Bria, 3M X HTN, 360efade-5d 06/22 06/22 eCW: Rashmi GRANT Hyperlipide 88-407b-834 /2014 Rashmi fernandes , a-737m6z6v9 Zaval eta myalgia 981 Bria, 3M X HTN, 9by43kx7-g5 06/22 06/22 eCW: Rashmi GRANT Hyperlipide c0-4234-a5f /2014 Rashmi fernandes b-izt318a8p Zaval eta myalgia 709 Bria, 3M X HTN, 5869319z-m1 06/22 06/22 eCW: Rashmi GRANT Hyperlipide 06-73e8-9o6 /2014 Rashmi fernandes , 6-4ju86p867 Zaval eta myalgia 233 Bria, 3M X HTN, 25j1mxq6-ja 06/22 06/22 eCW: Rashmi GRANT Hyperlipide 4d-62n0-3y8 /2014 Rashmi fernandes , 7-889neqb6j Zaval eta myalgia aee Bria, 3M X HTN, e1t402f2-52 06/22 06/22 eCW: Rashmi GRANT Hyperlipide 4f-0o3v-41c /2014 Rashmi fernandes , 1-q4051337t Zaval eta myalgia fde Bria, 3M X HTN, 42962t24-09 06/22 06/22 eCW: Rashmi GRANT Hyperlipide 39-68j6-89u /2014 Rashmi fernandes d-268uu2y08 Zaval eta myalgia 3c0 Bria, 3M X HTN, o40e763x-2b 06/22 06/22 eCW: Rashmi GRANT Hyperlipide 8f-4913-abf /2014 Rashmi fernandes , 6-46b61n88q Zaval eta myalgia 457 Bria, 3M X HTN, 56b33m97-3j 06/22 06/22 eCW: Rashmi GRANT Hyperlipide c7-403d-99b /2014 Rashmi fernandes , 9-d4ssm4816 Zaval eta myalgia 1e0 Bria, 3M X HTN, kwi80mgm-99 06/22 06/22 eCW: Rashmi GRANT Hyperlipide c9-4g63-t4d /2014 Rashmi fernandes , 8-492m5946j Zaval eta myalgia a4c Bria, 3M X HTN, [id number]-70 06/22 06/22 eCW: Rashmi GRANT Hyperlipide 32-45bb-957 /2014 Rashmi fernandes , [id number] Zaval eta myalgia d24 Bria, 3M X HTN, 3o84f02r-30 06/22 06/22 eCW: Rashmi GRANT Hyperlipide 39-6nn2-90v /2014 Rashmi fernandes , c-3716lz339 Zaval eta myalgia a00 Bria, 3M X HTN, [id number] 06/22 06/22 eCW: Rashmi GRANT Hyperlipide 6c-4356-ae3 /2014 Rashmi fernandes , e-15457u71m Zaval eta myalgia db4 Bria, 3M X HTN, 9q87idz0-86 06/22 06/22 eCW: Rashmi GRANT Hyperlipide 29-1j76-wnp /2014 Rashmi fernandes , 4-75yny57a3 Zaval eta myalgia 30c [facility] Outpt Diag [id number] [place] 06/22 06/23 [facility] [place] /2014 [facility] [place], 2 Weeks [id number] 07/06 07/06 e CW: Rashmi GRANT (Reason: a4-2h4e-547 /2014 [facility] f-6a97870w8 Z avaleta ) 136 Bria, 2 Weeks 010y7au9-pw 07/06 07/06 e CW: Rashmi GRANT (Reason: b4-4751-801 /2014 [facility] e-g37c70137 Z avaleta ) af6 Bria, 2 Weeks ei092171-6y 07/06 07/06 e CW: Rashmi GRANT (Reason: e3-8y9v-13k /2014 [facility] 4-jb6w9kv0w Z avaleta ) 3d2 Bria, 2 Weeks xwr2n815-f1 07/06 07/06 e CW: Rashmi GRANT (Reason: e0-44ba-bc8 /2014 [facility] 1-1nt6u9029 Z avaleta ) 627 Bria, 2 Weeks cmu33v33-y1 07/06 07/06 e CW: Rashmi GRANT (Reason: 1b-40cc-ac9 [facility] 5-93n1k1505 Z avaleta ) e9a Bria, 2 Weeks 2e79zm32-86 07/06 07/06 e CW: Rashmi GRANT (Reason: 64-02o3-o7y /2014 [facility] c-er37o8f68 Z avaleta ) 0ec Bria, 2 Weeks 66y02l7w-5t 07/06 07/06 e CW: Rashmi GRANT (Reason: 2c-4904-83a /2014 [facility] c-9h091b565 Z avaleta ) 41b Bria, 2 Weeks 0cx6666a-74 07/06 07/06 e CW: Rashmi GRANT (Reason: 65-9mb1-5e0 /2014 [facility] se Bronchitis c-5b6546k7q Z avaleta ) a66 Bria, 2 Weeks 8b3qw129-41 07/06 07/06 e CW: Rashmi GRANT (Reason: e9-06r3-j2a /2014 [facility] se Bronchitis 2-0454su0q7 Z avaleta ) 106 [place], 2 Weeks [id number]-rk 07/06 07/06 e CW: Rashmi GRANT (Reason: b3-433f-a33 /2014 [facility] se Bronchitis f-t33btlkb7 Z avaleta ) 82b Bria, 2 Weeks 42l56tv0-5d 07/06 07/06 e CW: Rashmi GRANT (Reason: 6e-4643-ba9 /2014 [facility] se Bronchitis d-7iaz5b48i Z avaleta ) 3fa Bria, 2 Weeks 6028n746-60 07/06 07/06 e CW: Rashmi GRANT (Reason: a4-475e-9aa [facility] 7-ivh551e80 Z avaleta ) dcd Bria, 2 Weeks 46y4m637-2w 07/06 07/06 e CW: Rashmi GRANT (Reason: ca-4966-902 /2014 [facility] se Bronchitis e-71s7gxs35 Z avaleta ) a77 Bria, 2 Weeks 013f0o00-u7 07/06 07/06 e CW: Rashmi GRANT (Reason: b8-4353-b8f /2014 [facility] se Bronchitis 5-227ba24od Z avaleta ) 712 B[place], 2 Weeks 60seiu7k-92 07/06 07/06 e CW: Rashmi GRANT (Reason: 2f-0m01-j1r /2014 [facility] se Bronchitis 3-kh86teh06 Z avaleta ) 1c7 Bria, 2 Weeks 03m47rl1-17 07/06 07/06 e CW: Rashmi GRANT (Reason: 39-4154-afa [facility] Bronchitis 0-f4t143mz5 Z avaleta ) 2e5 [place]ria, 2 Weeks b077my0p-n0 07/06 07/06 e CW: Rashmi GRANT (Reason: df-4131-9e7 [facility] Bronchitis 8-1981b148u Z avaleta ) 057 B[place], 2 Weeks 55v3l613-mv 07/06 07/06 e CW: Rashmi GRANT (Reason: 75-5q42-11j [facility] Bronchitis 5-22t6eqo61 Z avaleta ) 2f5 [facility]ria, 2 Weeks y703kb6z-i7 07/06 07/06 e CW: Rashmi GRANT (Reason: f5-4ebf-81e /2014 [facility] se Bronchitis b-170a92pmu Z avaleta ) 872 B[place], 2 Weeks z3u11c28-44 07/06 07/06 e CW: Rashmi GRANT (Reason: 7f-485b-837 /2014 [facility] se Bronchitis c-0g65qj474 Z avaleta ) 065 [place], 4 Months 430632kx-91 11/05 11/05 eCW: Rashmi GRANT (Reason: 75-4190-9d3 /2014 [facility] se Thyroid and c-vt82q8j8j Bria Triglycerid 7a7 es ) B[place], 4 Months 970f9753-30 11/05 11/05 eCW: Rashmi GRANT (Reason: 8b-498a-bcb /2014 [facility] se Thyroid and d-2oy0av612 [facility] Triglycerid e69 es ) Bria, 4 Months 42q726q8-o4 11/05 11/05 eCW: Rashmi GRANT (Reason: 26-473b-96d [facility] se Thyroid and 1-1ebb7i6b7 Bria Triglycerid c44 es ) Bria, 4 Months 1r1ygfo0-69 11/05 11/05 eCW: Rashmi GRANT (Reason: a7-40de-bb3 /2014 [facility] se Thyroid and b-o4ayf1wqy Bria Triglycerid 21a es ) Bria, 4 Months 136u2x61-69 11/05 11/05 eCW: Rashmi GRANT (Reason: af-7u8l-938 /2014 [facility] se Thyroid and 5-fz2nor272 [facility] Triglycerid 88e es ) Bria, 4 Months s6sb393q-26 11/05 11/05 eCW: Rashmi GRANT (Reason: 1c-41fd-b74 /2014 [facility] se Thyroid and e-4d4e69v29 Bria Triglycerid bf5 es ) [place], 4 Months r3yl2182-rz 11/05 11/05 eCW: Rashmi GRANT (Reason: 61-1d50-1mq [facility] Thyroid and 2-4sx0o050p Bria Triglycerid 96a es ) Bria, 4 Months rg253744-m3 11/05 11/05 eCW: Rashmi GRANT (Reason: 14-4492-ad [facility] Thyroid and 4-18559q3sm Bria Triglycerid 696 es ) [place], 4 Months lr64p0c4-e9 11/05 11/05 eCW: Rashmi GRANT (Reason: d0-440b-907 [facility] Thyroid and 3-474is1l77 [facility] Triglycerid 7e4 es ) [place], 4 Months 03v0p84d-8v 11/05 11/05 eCW: Rashmi GRANT (Reason: 28-4m1z-8id [facility] Thyroid and b-1lk428476 [facility]ria Triglycerid 69a es ) [place], 4 Months 4745w672-9m 11/05 11/05 eCW: Rashmi GRANT (Reason: 0c-5g7x-lyw [facility] Thyroid and 8-g509786h0 Bria Triglycerid 012 es ) [place], 4 Months 226dafeb-47 11/05 11/05 eCW: Rashmi GRANT (Reason: c8-4568-af [facility] Thyroid and b-esf86i5j6 Bria Triglycerid 4ed es ) Bria, 4 Months 24m40sw3-c4 11/05 11/05 eCW: Rashmi GRANT (Reason: 5f-4504-bca [facility] Thyroid and c-e45u23273 Bria Triglycerid 571 es ) Bria, 4 Months pc285pc4-g2 11/05 11/05 eCW: Rashmi GRANT (Reason: c1-45cc-b47 [facility] Thyroid and c-16936mu80 Bria Triglycerid 520 es ) [facility], refill k68v9cd5-0t 11/17 11/17 eC W: Rashmi GRANT ff-8o41-878 /2014 Rashmi torres-aor5y8d2f Zaval eta 2b8 [place], refill zde0ba1h-hw 11/17 11/17 eC W: Rashmi GRANT 13-41da-afe /2014 Skinny-51l5wd8a6 Zaval eta 42c [place], refill 255l60ee-08 11/17 11/17 eC W: Rashmi GRANT af-35d9-s28 /2014 Rashmi 3-79af400e0 Zaval eta f5a [place], refill 50626k10-15 11/17 11/17 eC W: Rashmi GRANT cc-458f-bfb /2014 Rashmi 5-le08x00j1 Zaval eta 61e [place], refill [id number]-k0 11/17 11/17 eC W: Rashmi GRNAT 7e-441e-af7 /2014 Rashmi 7-k832e1a41 Zaval eta a14 [place], refill v228l923-2q 11/17 11/17 eC W: Rashmi GRANT 5b-4875-afc /2014 Angie-7f19a07q4 Zaval eta 6f9 [place], refill j9l542dx-9c 11/17 11/17 eC W: Rashmi GRANT d8-457d-9da /2014 Rashmi b-081k42753 Zaval eta f0b [place], refill 99w803il-3a 11/17 11/17 eC W: Rashmi GRANT ec-4fh0-11w /2014 Delfino-789548wd8 Zaval eta 1dd [place], refill s3nki873-16 11/17 11/17 eC W: Rashmi GRANT c4-4v8z-l6r /2014 Rashmi 6-t60924893 Zaval eta 10e [place], refill 7uhgjf6g-8s 11/17 11/17 eC W: Rashmi GRANT ba-48a7-2yj /2014 Rashmi 1-2wgfx5527 Zaval eta eed [place], refill 5i5635o1-2i 11/17 11/17 eC W: Rashmi GRANT 5e-9b92-124 /2014 Rashmi 1-550iwx754 Zaval eta 570 [place], refill m42vy54e-16 11/17 11/17 eC W: Rashmi GRANT cc-496d-970 /2014 Rashmi b-4k701646v Zaval eta ef5 [place], refill e9y5ro59-b0 11/17 11/17 eC W: Rashmi GRANT 51-2r98-3zz /2014 Rashmi 6-r2b1w5g27 Zaval eta 4a4 [place], refill 20m67n2n-73 11/17 11/17 eC W: Rashmi GRANT c4-56i6-liv /2014 Rashmi chun-3ewfxsw86 Zaval eta e65 [place], refill 12752l78-5h 11/17 11/17 eC W: Rashmi GRANT 5e-4cfd-8e1 /2014 Rashmi 8-6jqh1oo0m Zaval eta 203 [place], refill 8936kxk9-r2 11/17 11/17 eC W: Rashmi GRANT 6c-48fa-8ac /2014 Rashmi 5-g44595z0j Zaval eta 2ad [place], refill u08915j1-95 11/17 11/17 eC W: Rashmi GRANT 82-76u1-8c4 /2014 Rashmi b-jcjk9h60t Zaval eta ded [place], refill 8v2193eg-27 11/17 11/17 eC W: Rashmi GRANT e1-4023-8e0 /2014 Kyle-38se945w0 Zaval eta fc7 [place], refill s63189bh-a7 11/17 11/17 eC W: Rashmi GRANT 83-4nq6-005 /2014 Rashmi 4-6165hr7c5 Zaval eta 936 [place], refill 7l10tn73-4b 11/17 11/17 eC W: Rashmi GRANT 2d-4505-ab1 /2014 Skinny-yc80w2n7b Zaval eta dfa [place], Needs n657u54n-74 12/24 12/24 eC W: Rashmi Jim f6-90v1-34l /2014 Evangel[facility] se meds 1-7q8ye23d0 Zaval eta 436 [place], Needs q0p69m66-7i 12/24 12/24 eC W: Rashmi GRANT Sleeping 48-4603-914 /2014 Evangel[facility] se meds 1-0l55n3i57 Zaval eta 27a [place], Needs b02470s6-gq 12/24 12/24 eC W: Rashmi Jim eb-0n3h-18u /2014 Evangel[facility] se meds 0-t489o6892 Zaval eta b23 [place], Needs 37089waz-yq 12/24 12/24 eC W: Rashmi GRANT Sleeping fc-56k3-692 /2014 [facility] se meds c-o1y83cijr Zaval eta e78 [place], Needs 8eug1l65-c2 12/24 12/24 eC W: Rashmi GRANT Sleeping 87-4650-882 /2014 Evangel[facility] se meds d-0vo0yswp4 Zaval eta 633 [place], Needs 0u900231-ky 12/24 12/24 eC W: Rashmi GRANT Sleeping 46-2ue5-kb7 /2014 [facility] se meds 4-0j6k4k828 Zaval eta 9c9 [place], Needs 330x97qs-71 12/24 12/24 eC W: Rashmi GRANT Sleeping 13-75i9-e08 /2014 Evangelina se meds 5-b4o743m0r Zaval eta 690 [place], Needs 812920p5-55 12/24 12/24 eC W: Rashmi GRANT Sleeping 65-4g33-b23 /2014 Evangel[facility] se meds c-l9ci1rt4n Zaval eta 17d [place], Needs jtf7415h-ns 12/24 12/24 eC W: Rashmi GRANT Sleeping a1-4467-b28 /2014 Evangel[facility] se meds 0-nbfum37d1 Zaval eta f57 [place], Needs i871h272-6t 12/24 12/24 eC W: Rashmi GRANT Sleeping 13-4167-8af /2014 Evangel[facility] se meds c-30iqk5hqr Zaval eta 501 [place], Needs 524fui8b-k8 12/24 12/24 eC W: Rashmi GRANT Sleeping 1f-468c-ac6 /2014 Evangelina se meds 0-453k4l54r Zaval eta e6c [place], [place] [facility] nlf6h02n-33 01/04 01/04 eCW: Rashmi GRANT 6a-4458-a67 /2014 Skinny-0qr6196mm Zaval eta 2e1 [place], [place] [facility] 33c439k5-pu 01/04 01/04 eCW: Rashmi GRANT d6-0e6u-591 /2014 Rashmi 7-2849d986x Zaval eta shaan [place], [place] [facility] 63786293-5u 01/04 01/04 eCW: Rashmi GRANT 22-46cf-b09 /2014 Rashmi 8-5u1b8hz2v Zaval eta b77 [place], [place] [facility] 05x87s9m-mk 01/04 01/04 eCW: Rashmi GRANT c8-43y7-r0i /2014 Rashmi 3-92o071964 Zaval eta a90 [place], [place] [facility] 03nu46t4-5i 01/04 01/04 eCW: Rashmi GRANT 79-435b-bfa /2014 Rashmi 9-v4b48i2h8 Zaval eta e82 [place], [place] [facility] o475508u-be 01/04 01/04 eCW: Rashmi GRANT 0a-4cj9-1kl /2014 Elliott-6m7pa6nkg Zaval eta be3 [place], [place] [facility] 73oyq0ye-11 01/04 01/04 eCW: Rashmi GRANT 40-74j5-h4x /2014 Rashmi 7-u3nyeutd3 Zaval eta bbf [place], [place] [facility] hmsq0x98-vy 01/04 01/04 eCW: Rashmi GRANT 18-43aa-94f /2014 Rashmi 2-88g36cpp9 Zaval eta f46 [place], [place] [facility] 18p85129-65 01/04 01/04 eCW: Rashmi GRANT 04-4259-9f6 /2014 Delfino-27ris4vlc Zaval eta 978 [place], [place] [facility] u4ig5315-93 01/04 01/04 eCW: Rashmi GRANT 69-46fd-995 /2014 Rashmi 1-62104n755 Zaval eta 712 [place], [place] [facility] 82z828z1-xc 01/04 01/04 eCW: Rashmi GRANT 3e-429f-870 /2014 Kyle-2g7y98x8i Zaval eta 739 Outpatient [id number] RASHMI MCMANUS 01/07 [facility], release for w2rc62pp-5m 02/03 02/03 eCW: Rashmi GRANT sx e0-5ow8-85c /2014 Rashmi 6-10ox84482 Zaval eta 046 [place], release for 1l152485-67 02/03 02/03 eCW: Rashmi GRANT sjairon 3b-4715-825 /2014 Rashmi 3-97d658424 Zaval eta cc9 [place], release for 35ojb5cf-20 02/03 02/03 eCW: Rashmi turner cb-4266-9d4 /2014 Rashmi b-z952whels Zaval eta b36 [place], release for 79l20um8-17 02/03 02/03 eCW: Rashmi GRANT sjairon 48-4m7v-qqu /2014 Rashmi 0-19mx7bv98 Zaval eta 84c [place], release for s95946g8-n6 02/03 02/03 eCW: Rashmi turner d6-4dbd-9be /2014 Rashmi 5-h2x9gd97u Zaval eta 973 [place], release for 71ndd7b1-vq 02/03 02/03 eCW: Rashmi turner 7f-0h7y-04f /2014 Rashmi 2-8u7x299y4 Zaval eta 0e7 [place], release for 4c4f0l0y-v0 02/03 02/03 eCW: Rashmi GRANT sjairon ef-03z3-c5w /2014 Rashmi 6-dw457985k Zaval eta 69a [place], release for 4x59sgvw-72 02/03 02/03 eCW: Rashmi GRANT sjairon a6-4777-804 /2014 Angie-8397kh598 Zaval eta 003 [place], release for x08u19s5-qw 02/03 02/03 eCW: Rashmi GRANT sjairon b0-404e-98f /2014 Rashmi 9-l8b6j9g76 Zaval eta 035 [place], release for 2554l37a-08 02/03 02/03 eCW: Rashmi GRANT sjairon 48-4290-831 /2014 Rashmi 8-41x985334 Zaval eta 31f [place], release for 094e3b0f-w7 02/03 02/03 eCW: Rashmi GRANT sjairon 82-4889-973 /2014 Delfino-6575cs564 Zaval eta e93 [place], release for w10587ah-00 02/03 02/03 eCW: Rashmi GRANT sx 19-15v6-0ie /2014 Rashmi 9-40t42hd75 Zaval eta 06d [place], release for m33k3u3r-7t 02/03 02/03 eCW: Rashmi GRANT sx 22-4586-aa9 /2014 Rashmi b-3689v599z Zaval eta 2aa [place], release for s9kty4p9-l2 02/03 02/03 eCW: Rashmi GRANT sx d6-4541-a10 /2014 Delfino-3yq2um46u Zaval eta cf8 [place], release for d6371o27-c4 02/03 02/03 eCW: Rashmi GRANT sx 0a-7aq5-9v6 /2014 Rashmi b-n927014v7 Zaval eta f5b [place], release for g675404c-y6 02/03 02/03 eCW: Rashmi GRANT sx 56-2b35-r94 /2014 Rashmi 9-27x0o461b Zaval eta 2ef [place], release for 8c32ya57-83 02/03 02/03 eCW: Rashmi GRANT sx af-4454-ab5 /2014 Rashmi b-p44o34235 Zaval eta fee [place], release for 34f036b7-11 02/03 02/03 eCW: Rashmi GRANT sx 39-52y6-x4s /2014 Rashmi munoz-ro0q8ma07 Zaval eta 2d7 [place], lab order/ [id number] 02/04 02/04 eCW: Rashmi GRANT x-ray cb-7m8o-j85 /2014 Elliott-2276i0qko Zaval eta 2ee [place], lab order/ [id number] 02/04 02/04 eCW: Rashmi GRANT x-ray 85-97n5-098 /2014 Rashmi 5-r7u0pw0t1 Zaval eta a05 [place], lab order/ [id number] 02/04 02/04 eCW: Rashmi GRANT x-ray 27-4849-b4c /2014 Rashmi munoz-7z1ak99pm Zaval eta 13d [place], lab order/ [id number] 02/04 02/04 eCW: Rashmi GRANT x-ray 7e-36k9-kw4 /2014 Rashmi 7-va594vai8 Zaval eta 8e0 [facility] [id number] [place] 02/04 02/05 [facility] [place] /[facility] [place], lab order/ [id number] 02/04 02/04 eCW: Rashmi GRANT x-ray 32-475b-96c /2014 Rashmi chun-ldd876120 Zaval eta 65c [place], lab order/ [id number]-q0 02/04 02/04 eCW: Rashmi GRANT x-ray bb-3t6e-b2l /2014 Rashmi b-jk5o5xe57 Zaval eta 65c [place], lab order/ [id number] 02/04 02/04 eCW: Rashmi GRANT x-ray c2-95v4-yuj /2014 Rashmi 9-9t78z64ju Zaval eta f3f [place], lab order/ [id number] 02/04 02/04 eCW: Rashmi GRANT x-ray e6-4444-a67 /2014 Rashmi 8-317r179a8 Zaval eta 5a0 [place], lab order/ [id number] 02/04 02/04 eCW: Rashmi GRANT x-ray 7d-5f9i-myc /2014 Rashmi 4-6zm093g56 Zaval eta 701 [place], lab order/ [id number] 02/04 02/04 eCW: Rashmi GRANT x-ray e6-497c-bd0 /2014 Rashmi 8-m70yg2h56 Zaval eta 7de [place], lab order/ [id number] 02/04 02/04 eCW: Rashmi GRANT x-ray 6d-1qa8-47g /2014 Rashmi 7-25j03ph04 Zaval eta 4e5 [place], lab order/ 8d9bo56m-a7 02/04 02/04 eCW: Rashmi GRANT x-ray 98-5f1g-kh5 /2014 Elliott-p94kh124i Zaval eta 023 [place], lab order/ [id number] 02/04 02/04 eCW: Rashmi GRANT x-ray 22-4134-8c5 /2014 Rashmi 3-84h679i00 Zaval eta 3a3 [place], lab order/ [id number] 02/04 02/04 eCW: Rashmi GRANT x-ray 6f-0g58-397 /2014 Angie-1879ooh3p Zaval eta 3aa [place], lab order/ [id number]-81 02/04 02/04 eCW: Rashmi GRANT x-ray 30-4219-aa6 /2014 Rashmi 2-6s9p903k6 Zaval eta d3b [place], lab order/ [id number] 02/04 02/04 eCW: Rashmi GRANT x-ray cb-4592-b7c /2014 Rashmi 9-r37ph0w4p Zaval eta 6ad [place], lab order/ [id number] 02/04 02/04 eCW: Rashmi GRANT x-ray f6-49fc-8a6 /2014 Angie-u1n8h05u4 Zaval eta e7b [place], lab order/ [id number] 02/04 02/04 eCW: Rashmi GRANT x-ray 42-4673-ac6 /2014 Kyle-l60761956 Zaval eta ee9 [place], Unknown [id number] 02/05 02/05 e CW: Rashmi GRANT f4-4098-95c /2014 Rashmi 8-h950089h7 Zaval eta dfe [place], Unknown [id number]-ej 02/05 02/05 e CW: Rashmi GRANT 03-71v0-09b /2014 Delfino-y237yi70x Zaval eta b13 [place], Unknown [id number] 02/05 02/05 e CW: Rashmi GRANT ec-40ea-83f /2014 Rashmi 9-162fr8qp2 Zaval eta 4f3 [place], Unknown [id number] 02/05 02/05 e CW: Rashmi GRANT 1c-42ba-8dd /2014 Rashmi 4-1cm7ziung Zaval eta ca7 [place], Unknown [id number] 02/05 02/05 e CW: Rashmi GRANT 16-4445-a21 /2014 Rashmi 4-789zv06z0 Zaval eta 3c4 [place], Unknown [id number] 02/05 02/05 e CW: Rashmi GRANT 11-4y80-v33 /2014 Rashmi 3-4ifnoyqi2 Zaval eta 7c3 [place], Unknown [id number] 02/05 02/05 e CW: Rashmi GRANT 92-4ddc-82c /2014 Rashmi 0-z7v59b926 Zaval eta ba2 [place], Unknown [id number] 02/05 02/05 e CW: Rashmi GRANT 04-48ee-9bf /2014 Rashmi 0-233336jw4 Z[facility] eta 213 [place], Unknown [id number] 02/05 02/05 e CW: Rashmi GRANT ea-4ecb-8ef /2014 Elliott-h3vhbb800 Zaval eta ea2 [place], Unknown [id number] 02/05 02/05 e CW: Rashmi GRANT 6e-4h1z-z7m /2014 Rashmi 6-t0721976x Zaval eta eb8 [place], Unknown [id number] 02/05 02/05 e CW: Rashmi GARNT 60-4476-a1b /2014 Angie-t890ii420 Zaval eta 131 [place], Unknown [id number] 02/05 02/05 e CW: Rashmi GRANT b7-88e5-1mh /2014 Rashmi 4-60k669074 Zaval eta 185 [place], Unknown [id number] 02/05 02/05 e CW: Rashmi GRANT 9a-5o08-o1a /2014 Rashmi 2-3j9z27881 Zaval eta 1b5 [place], Unknown [id number] 02/05 02/05 e CW: Rashmi GRANT 8d-5l74-22e /2014 Rashmi 8-t2q5f77t6 Z[facility] eta 02b [place], Unknown [id number] 02/05 02/05 e CW: Rashmi GRANT 96-5pm8-m3u /2014 Elliott-p16kw1ii6 Zaval eta 085 [place], Unknown [id number] 02/05 02/05 e CW: Rashmi GRANT f9-4419-965 /2014 Rashmi 2-4b430q25a Zaval eta fa8 [place], Unknown [id number] 02/05 02/05 e CW: Rashmi GARNT df-07u3-t54 /2014 Rashmi 1-9r92x23r0 Zaval eta 5d3 [place], Unknown [id number] 02/05 02/05 e CW: Rashmi GRANT fc-425f-adb /2014 Rashmi 7-21vuk3l98 [facility] eta f25 [place], LAB ORDER [id number] 02/08 02/08 eCW: Rashmi GRANT ea-435f-aff /2014 Rashmi b-1g6k838vw Z[facility] eta 7d4 [place], LAB ORDER [id number] 02/08 02/08 eCW: Rashmi GRANT 5f-49ec-82d /2014 Rashmi 9-4r8314408 Z[facility] eta 716 [place], LAB ORDER [id number] 02/08 02/08 eCW: Rashmi GRANT ec-42ec-a45 /2014 Rashmi 6-k665bo6c6 Z[facility] eta 2ba [place], LAB ORDER [id number] 02/08 02/08 eCW: Rashmi GRANT 23-0e77-68n /2014 Rashmi 4-86yq65q38 Z[facility] eta 14b [place], LAB ORDER [id number] 02/08 02/08 eCW: Rashmi GRANT 70-4722-992 /2014 Kyle-n4sm1k4j5 Z[facility] eta 51e [place], LAB ORDER [id number] 02/08 02/08 eCW: Rashmi GRANT 64-4103-ac5 /2014 Angie-4j682d8wb Zaval eta b24 [place], LAB ORDER [id number] 02/08 02/08 eCW: Rashmi GRANT cc-7ns1-7hw /2014 Rashmi 3-482128b09 [facility] eta f05 [place], LAB ORDER [id number] 02/08 02/08 eCW: Rashmi GRANT 55-4064-916 /2014 Rashmi 3-g9q99hi7m Zaval eta 988 [place], LAB ORDER [id number] 02/08 02/08 eCW: Rashmi GRANT f4-89o1-250 /2014 Rashmi 3-57d3308r7 [facility] eta 6e1 [place], LAB ORDER [id number] 02/08 02/08 eCW: Rashmi GRANT 8d-4541-a3d /2014 Rashmi 0-1a05175kr Zaval eta 1be [place], LAB ORDER [id number] 02/08 02/08 eCW: Rashmi GRANT e7-492e-bc3 /2014 Rashmi 9-n7t7k5wq8 Z[facility] eta 5be [place], LAB ORDER [id number] 02/08 02/08 eCW: Rashmi GRANT 84-68h9-j1q /2014 Rashmi 7-2q06mk121 Z[facility] eta c08 [place], LAB ORDER [id number] 02/08 02/08 eCW: Rashmi GRANT c0-3y6n-z87 /2014 Rashmi 8-002434e0z Zaval eta 3c3 [place], LAB ORDER [id number] 02/08 02/08 eCW: Rashmi GRANT c2-4369-bcc /2014 Skinny-87545uo5r Zaval eta 965 [place], LAB ORDER [id number] 02/08 02/08 eCW: Rashmi GRANT cc-4428-ab3 /2014 Angie-z89x18404 Z[facility] eta af4 [place], LAB ORDER [id number] 02/08 02/08 eCW: Rashmi GRANT 01-9u2a-993 /2014 Rashmi 5-3gp7822xq Zaval eta 892 [place], LAB ORDER [id number] 02/08 02/08 eCW: Rashmi GRANT 67-20p7-s10 /2014 Rashmi 6-g6158ch5x Z[facility] eta 458 [place], LAB ORDER [id number] 02/08 02/08 eCW: Rashmi GRANT 35-1v56-83h /2014 Rashmi 9-53j12435k Zaval eta 5b7 [place], Unknown [id number] 02/10 02/10 e CW: Rashmi GRANT 94-63p0-bhl /2014 Kyle-q5d20841l [facility] eta 4c7 [place], Unknown [id number] 02/10 02/10 e CW: Rashmi GRANT 29-51g3-502 /2014 Rashmi 8-a3s8207t8 Zaval eta acb [place], Unknown [id number] 02/10 02/10 e CW: Rashmi GRANT 32-2ig5-846 /2014 Rashmi 7-0t37b4i18 Zaval eta 79e [place], Unknown [id number] 02/10 02/10 e CW: Rashmi GRANT 0b-9ou5-u39 /2014 Rashmi b-4o0c1z766 [facility] eta 473 [place], Unknown [id number] 02/11 02/11 e CW: Rashmi GRANT 67-4215-954 /2014 Rashmi 0-8ku8q0h87 Z[facility] eta ff2 [place], Unknown [id number] 02/11 02/11 e CW: Rashmi GRANT 07-427a-bb9 /2014 Rashmi 9-6sc7r4t0p Z[facility] eta d18 [place], Unknown [id number] 02/11 02/11 e CW: Rashmi GRANT a9-99e8-n93 /2014 Angie-ng74822t9 Z[facility] eta 59b [place], Unknown [id number] 02/11 02/11 e CW: Rashmi GRANT 20-4739-b12 /2014 Rashmi 9-6572cc93t Z[facility] eta c4f [place], Unknown [id number] 02/11 02/11 e CW: Rashmi GRANT 56-4309-9bd /2014 Kyle-10bk6r9nl Zaval eta 40f [place], Unknown [id number] 02/11 02/11 e CW: Rashmi GRANT e9-4034-933 /2014 Rashmi 7-4vp12ij77 [facility] eta 268 Bria, Unknown [id number] 02/11 02/11 e CW: Rashmi GRANT 38-8of1-q6d /2014 Rashmi 1-37cf528nl [facility] ad7 Bria, Unknown [id number] 02/11 02/11 e CW: Rashmi GRANT e2-7cj8-t9e /2014 Elliott-47v06af3r [facility] 5af [place], Unknown [id number] 02/11 02/11 e CW: Rashmi GRANT f0-9z72-728 /2014 Rashmi 4-86s4276n1 [facility] et[facility] 2eb Bria, Unknown [id number] 02/11 02/11 e CW: Rashmi GRANT 2e-4bdb-985 /2014 Rashmi b-3jnl75136 [facility] ea3 Bria, Unknown [id number] 02/11 02/11 e CW: Rashmi GRNAT f9-4538-a79 /2014 Delfino-o2g0d42p4 [facility] bb2 Bria, Unknown [id number] 02/11 02/11 e CW: Rashmi GRANT da-4194-9ec /2014 Rashmi 4-048yukg46 [facility] eta 73e B[place], Unknown [id number] 02/11 02/11 e CW: Rashmi GRANT 29-6k32-m7x /2014 Rashmi 0-y5599pj19 [facility] 900 [place], Unknown [id number] 02/23 02/23 e CW: Rashmi GRANT 21-43ff-83c /2014 Rashmi b-50t6d4t65 [facility] 300 [place], Unknown [id number] 02/23 02/23 e CW: Rashmi GRANT 8f-5j00-931 /2014 Rashmi 0-qg5m553l0 [facility] eta 90e B[place], Unknown [id number] 02/23 02/23 e CW: Rashmi GRANT 07-495b-815 /2014 Delfino-4z94y0t04 [facility] 394 [place], Unknown [id number] 02/23 02/23 e CW: Rashmi GRANT 3f-65f5-531 /2014 Rashmi 6-l85492n21 [facility] 196 [place], Unknown [id number] 02/23 02/23 e CW: Rashmi GRANT 09-4151-b3c /2014 Rashmi 9-3118bi6dr [facility] f0f [place], Unknown [id number] 02/23 02/23 e CW: Rashmi GRANT b4-4307-98d /2014 Rashmi 6-k45ahb5p5 [facility] 0f7 Bria, Unknown [id number] 02/23 02/23 e CW: Rashmi GRANT 0b-6s2n-724 /2014 Kyle-88wghzt6d [facility] fed [place], Unknown [id number] 02/23 02/23 e CW: Rashmi GRANT 30-55a3-w36 /2014 Rashmi 3-1lmq63t0w [facility] et[facility] a4c B[place], Unknown [id number] 02/23 02/23 e CW: Rashmi GRANT 12-4353-a29 /2014 Rashmi 9-5jrvw04o9 [facility] f58 [place], Unknown [id number] 02/23 02/23 e CW: Rashmi GRANT 75-88f1-b80 /2014 Rashmi 7-p101j8w6k [facility] et[facility] 7f3 Bria, Unknown [id number] 02/23 02/23 e CW: Rashmi GRANT ed-1cx5-0i6 /2014 Angie-4106g0664 [facility] et[facility] fea [place], Unknown [id number] 02/23 02/23 e CW: Rashmi GRANT f7-4829-b96 /2014 Rashmi 4-auk73nvx6 [facility] eta 645 B[place], Unknown [id number] 02/23 02/23 e CW: Rashmi GRANT 8d-6k67-uux /2014 Skinny-yxara0u65 [facility] ab5 Bria, 4 Months [id number] 03/08 03/08 eCW: Rashmi GRANT (Reason: 6e-6qz8-95h /2014 Evangelina se Thyroid and 6-5gu02h1kz Bria hyperlipide 944 dom ) Bria, 4 Months [id number] 03/08 03/08 eCW: Rashmi GRANT (Reason: 90-4176-979 /2014 Evangelina se Thyroid and d-5398ws38d Bria hyperlipide cb3 dom ) Bria, 4 Months [id number] 03/08 03/08 eCW: Rashmi GRANT (Reason: 1e-18h3-t82 /2014 Evangelina se Thyroid and e-pq60mgj1j Bria hyperlipide 46c dom ) Bria, 4 Months [id number] 03/08 03/08 eCW: Rashmi GRANT (Reason: 8a-8r64-c0l /2014 Evangelina se Thyroid and 6-bxtz07n87 Bria hyperlipide bba dom ) Bria, 4 Months [id number] 03/08 03/08 eCW: Rashmi GRANT (Reason: 12-46ee-808 Evangelina se Thyroid and 8-17v2dl720 Bria hyperlipide 4fc dom ) Bria, 4 Months [id number] 03/08 03/08 eCW: Rashmi GRANT (Reason: 4d-0b5o-5h4 /2014 Evangelina se Thyroid and 0-k4a54c5j1 Bria hyperlipide c54 dom ) Bria, 4 Months 64p82p1x-7w 03/08 03/08 eCW: Rahsmi GRANT (Reason: 60-4595-a2f /2014 Evangelina se Thyroid and 2-99g549z83 Bria hyperlipide dc8 dom ) Bria, 4 Months [id number] 03/08 03/08 eCW: Rashmi GRANT (Reason: 6d-8p7k-6s6 /2014 Evangelina se Thyroid and 9-v79p85931 Bria hyperlipide f6c dom ) Bria, 4 Months 3f9142o0-7j 03/08 03/08 eCW: Rashmi GRANT (Reason: f3-57c7-476 /2014 Evangelina se Thyroid and e-6py4a5zi8 Bria hyperlipide ea9 dom ) Bria, 3m x 8520sq44-i9 eC W: Rashmi GRANT thyroid 1c-20a2-w79 /2015 Roshan e 1-5c700xgh9 [facility] et[facility] c6c Bria, 3m x 7038x270-h5 eC W: Rashmi GRANT thyroid 40-489d-8ae /2015 Roshan e 8-8p665s13o [facility] et[facility] f8c [place], 3m x e97ld9s8-c9 eC W: Rashmi GRANT thyroid 4a-4689-85f /2015 Roshan e f-y66u7j08x [facility] et[facility] b32 B[place], 3m x [id number]-6z eC W: Rashmi GRANT thyroid c9-4127-ac4 /2015 Roshan e 9-96585w60u [facility] eta 884 B[place], 3m x [id number] eC W: Rashmi GRANT thyroid ab-66d3-3k5 /2015 Roshan e d-j13169cr0 [facility] et[facility] e1f [place], 3m x [id number] eC W: Rashmi GRANT thyroid d3-44ae-92b /2015 Roshan e 8-3aah21d4h Zaval eta 63d B[place], 3m x [id number]-39 eC W: Rashmi GRANT thyroid e8-48da-9a4 /2015 Roshan e 8-9pp2w188x [facility] eta 8dd B[place], 3m x 2h75ml31-50 eC W: Rashmi GRANT thyroid cf-8a0m-wdv /2015 Roshan e d-9758z09es [facility] eta 8c1 Bria, 4 Weeks [id number] 07/06 07/06 e CW: aRshmi GRANT (Reason: cb-4adc-8ba /2015 Evangelina se Blood b-d79974af0 [facility] et[facility] pressure ) fd7 Bria, 4 Weeks 7i9d2uh4-cz 07/06 07/06 e CW: Rashmi GRANT (Reason: b5-426c-877 /2015 Evangelina se Blood 2-7pd6yz4ls [facility] et[facility] pressure ) 51f Bria, 4 Weeks 59t3s4q0-41 07/06 07/06 e CW: Rashmi GRANT (Reason: 9a-7zc2-276 /2015 Evangelina se Blood f-5y52h73to [facility] eta pressure ) 5de Bria, 4 Weeks 2m8n024e-yl 07/06 07/06 e CW: Rashmi GRANT (Reason: 69-41be-a0e Evangelina se Blood f-7697ava95 [facility] eta pressure ) 8fa Bria, 4 Weeks 8pw7l1vp-62 07/06 07/06 e CW: Rashmi GRANT (Reason: fe-9ar0-l0e Evangel[facility] se Blood 5-5467c07x4 Zaval eta pressure ) 440 Bria, 4 Weeks [id number] 07/06 07/06 e CW: Rashmi GRANT (Reason: 2e-51h3-goe [facility] se Blood 6-315915901 [facility] eta pressure ) fe3 Bria, 4 Weeks 12p91666-04 07/06 07/06 e CW: Rashmi GRANT (Reason: bf-4152-875 Evangel[facility] se Blood 0-57015396d [facility]aval eta pressure ) 0b4 Bria, 3 Months 7346i0m6-g8 10/03 10/03 eCW: Rashmi GRANT (Reason: 8f-4508-a7d Evangel[facility] se HTn , 1-644b5ivh8 Z[facility] eta Thyroid and 089 cholesterol ) Bria, 3 Months [id number] 10/03 10/03 eCW: Rashmi GRANT (Reason: 5b-1w3i-a6m Evangel[facility] se HTn , 7-y0ihx3f8a [facility]aval eta Thyroid and bd7 cholesterol ) Bria, 3 Months [id number]-z9 10/03 10/03 eCW: Rashmi GRANT (Reason: 21-4623-bce [facility] se HTn , 9-f0ql755ug Zaval eta Thyroid and fe9 cholesterol ) Bria, 3 Months [id number]-[id number] 10/03 10/03 eCW: Rashmi GRANT (Reason: c7-469b-ba8 Evangel[facility] se HTn , 8-23sbn3531 Zaval eta Thyroid and 154 cholesterol ) Bria, 3 Months [id number] 10/03 10/03 eCW: Rashmi GRANT (Reason: a7-59n7-4un [facility] se HTn , 6-o6625208c Zaval eta Thyroid and 46e cholesterol ) Bria, 3 Months [id number]-56 10/03 10/03 eCW: Rashmi GRANT (Reason: 7a-498d-957 /2015 Evangelina se HTn , 9-ugld89413 Zaval eta Thyroid and 837 cholesterol ) Bria, 3 Months 8y559rt9-24 01/02 01/02 eCW: Rashmi GRANT (Reason: [id number] /2015 Evangelina se Thyroid , [id number] Za valeta Cholesterol e66 ) Bria, 3 Months [id number] 01/02 01/02 eCW: Rashmi GRANT (Reason: [id number] Evangelina se Thyroid , [id number] Za valeta Cholesterol 6da ) Bria, 3 Months [id number] 01/02 01/02 eCW: Rashmi GRANT (Reason: [id number] Evangelina se Thyroid , [id number] Za valeta Cholesterol c8d ) Bria, 3 Months [id number] 01/02 01/02 eCW: Rashmi GRANT (Reason: [id number] Evangelina se Thyroid , [id number] Za valeta Cholesterol 88f ) Bria, 3 Months [id number] 01/02 01/02 eCW: Rashmi GRANT (Reason: [id number] Evangelina se Thyroid , [id number] Za valeta Cholesterol 0db ) [facility] Day Surgery [id number] Vianney 02/02 02/03 [facility] 7 [facility] Outpatient [id number] IEKSON 02/15 [facility] [place] Out[facility] [id number] DHIEKSON 02/28 Active [facility] Bria, REFILL [id number] 03/09 03/09 eC W: Rashmi GRANT REQUEST [id number] /2015 Roshan e [id number] Zaval eta e6b Bria, REFILL [id number] 03/09 03/09 eC W: Rashmi GRANT REQUEST [id number] /2015 Roshan chun [id number] Zaval eta 498 Bria, REFILL [id number] 03/09 03/09 eC W: Rashmi GRANT REQUEST [id number] /2015 Roshan chun [id number] Zaval eta 2e9 Bria, REFILL [id number] 03/09 03/09 eC W: Rashmi GRANT REQUEST [id number] /2015 Roshan chun [id number] Zaval eta 5de Bria, refill [id number] 03/20 03/20 eC W: Rashmi GRANT request..stacy [id number] /2015 Rashmi [id number] Zaval eta 369 Bria, refill [id number] 03/20 03/20 eC W: Rashmi GRANT request..stacy [id number] /2015 Rashmi [id number] Zaval eta fd6 Bria, refill [id number] 03/20 03/20 eC W: Rashmi GRANT request..stacy [id number] /2015 Rashmi [id number] Zaval eta 219 [facility] Outpt Diag [id number] [facility] 03/28 03/29 [facility] [place], refill [id number] 05/03 05/03 eC W: Rashmi GRANT request [id number] /2016 Roshan chun [id number] Zaval eta ce9 Bria, refill [id number] 05/03 05/03 eC W: Rashmi GRANT request [id number] /2016 Roshan chun [id number] Zaval eta f4c Bria, Rx [id number] 05/17 05/17 eC W: Rashmi GRANT clarificati [id number] /2016 Rashmi hines [id number] Zaval eta a6f Outpatient [id number] DHIEKSON 05/30 [facility] [place] Outpatient [id number] DHIEKSON 06/29 [facility] [place] Outpatient [id number] DHIEKSON 09/21 [facility] [place] Out[place] [id number] DHIEKSON 11/23 [facility] [place] Outpatient [id number] DHIEKSON 01/23 [facility] [place] [facility] Outpatient [id number] Dhiekson 02/12 02/13 [facility] Outpatient 5 [facility] Outpatient [id number] DHIEKSON 04/17 [facility] [place] [facility] Outpatient [id number] Fernanda 04/17 04/18 M H Primary 8 Medic al Care Group [facility] Inpatient [id number] Dane Arias 06/16 06/18 [facility] [id number] 07/10 07/12 MH [facility] [id number] 07/10 07/12 MH Primary Message Medical Care Group [facility] Outpatient [id number] DHIEKSON 07/24 Active [facility] [place] [facility] Ambulatory [id number] Fernanda 07/24 07/24 M H Primary Pre-Reg 9 Medi jose luis Care Group [facility] Outpatient [id number] DHIEKSON 08/09 Active [facility] 0 [place] MG Outpatient [id number] Dhiekson 08/09 08/10 MH Primary 0 Medical Care Group [facility] Outpatient [id number] DHIEKSON 09/04 Active [facility] 1 [place] MG Outpatient [id number] Dhiekson 09/04 09/05 MH [facility] 1 [facility] [id number] 10/01 10/03 MH Primary Message Medical Care Group [facility] Outpatient [id number] DHIEKSON 10/12 Active [facility] 3 [place] MG Outpatient [id number] Dhiekson 10/12 10/13 MH [facility] 3 [facility] [id number] 10/23 10/25 MH Primary Message Medical Care [facility] Phone [id number] 11/05 11/07 MH Primary Message Medical Care Group [facility] Outpatient [id number] Rene 11/29 11/30 [facility] [place] [facility] Outpatient [id number] DHIEKSON 12/06 Active [facility] 2 [place] MG Ambulatory [id number] Dhiekson 12/06 12/06 MH Primary Pre-Reg 2 Medical Care Group [facility] Outpatient [id number] DHIEKSON 12/31 [facility] [place] Outpatient [id number] DHIEKSON 12/31 Active [facility] [place] [facility] Ambulatory [id number] Dhiekson 12/31 12/31 MH Primary Pre-Reg 4 Medical Care Group [facility] Outpatient [id number] Dhiekson 12/31 01/01 MH Primary 5 Medical Care Group [facility] Emergency [id number] Can 12/31 12/31 [place] 4 vers [facility] Emergency [id number] Shanika 01/10 01/10 [place] 5 [facility] Outpatient [id number] FREDY 01/17 Activ e [facility] 7 [place] Outpatient [id number] DHIEKSON 01/17 Active [facility] [place] [facility] Ambulatory [id number] Fredy 01/17 01/17 MH Gastroenter Pre-Reg 7 Me dical ology Group [facility] 370 [facility] Outpatient [id number] Dhiekson 01/17 01/18 MH Primary 6 Medical Care Group [facility] Outpatient [id number] FREDY 01/24 Activ e [facility] 8 [place] [facility] Outpatient [id number] rFedy 01/24 01/25 MH Gastroenter 8 Med ical ology Group [facility] 370 MH Phone [id number] 01/25 01/27 MH Primary Message Medical Care Group [facility] Bedded [id number] [facility] 02/04 02/04 [facility] [place] Outpatient 7 [facility] jimenez [facility] TR Outpatient [id number] Rene 02/14 02/15 [facility] Psychiatric 3 s/Psychothe rapy (PSYR) [facility] Phone [id number] 03/04 03/06 MH Gastroenter Message [facility] jose luis ology Group [facility] Outpatient [id number] ON 03/05 Active [facility] 9 [place] MG Ambulatory [id number] iekson 03/05 03/05 MH Primary Pre-Reg 9 Medical Care [facility] Phone [id number] 03/05 03/07 MH Primary Message Medical Care [facility] Outpatient [id number] ON 03/07 Active [facility] 0 [facility] [facility] Outpatient [id number] on 03/07 03/08 MH Primary 0 Medical Care [facility] Phone [id number] 03/18 03/20 MH Primary Message Medical Care [facility] TR Outpatient [id number] Rene 03/21 03/22 MH [facility] Psychiatric 8 s/Psychothe rapy (PSYR) [facility] Outpatient [id number] iekson 03/26 03/27 [facility] Outpatient 6 [facility] Recurring [id number] Rene 03/28 04/27 [facility] 2 [place] MG Phone [id number] 04/05 04/07 MH Primary Message Medical Care Group [facility] Phone [id number] 04/08 04/10 MH Primary Message Medical Care Group [facility] Phone [id number] 04/08 04/10 MH Primary Message Medical Care Group [facility] Phone [id number] 04/10 04/12 MH Primary Message Medical Care [facility] Recurring [id number] Rene 04/11 05/11 [facility] 3 [place] MG Phone [id number] 05/01 05/03 MH Primary Message Medical Care Group [facility] Phone [id number] 05/03 05/05 MH Primary Message Medical Care Group [facility] Recurring [id number] Rene 05/16 06/17 [facility] [place] Outpatient [id number] DHIEKSON 05/27 Active [facility] 2 [facility] Ambulatory [id number] Dhiekson 05/27 05/27 MH Primary Pre-Reg 2 Medical Care Group [facility] Phone [id number] 06/06 06/08 MH Primary Message Medical Care Group [facility] Phone [id number] 06/06 06/08 MH Primary Message [facility] [id number] 06/12 06/14 MH Primary Message [facility] [id number] 06/12 06/14 MH Primary Message Medical Care Group [facility] Outpatient [id number] IEKSON 06/20 Active [facility] 1 [place] [facility] Outpatient [id number] iekson 06/20 06/21 MH Primary 1 Medical Care Group [facility] Outpatient [id number] Rene 06/28 06/29 MH [facility] Psychiatric 0 s/Psychothe rapy (PSYR) [facility] Phone [id number] 07/04 07/06 MH Primary Message [facility] [id number] 07/21 07/22 MH Primary Visit [facility] [id number] 08/01 08/03 MH Primary Message Medical Care Group [facility] Outpatient [id number] iekson 08/05 Active [facility] 3 [place] MG Outpatient [id number] Dhiekson 08/05 08/06 MH Primary 3 Medical Care Group [facility] Outpatient [id number] Dhiekson 08/12 Active [facility] [place] MG Outpatient [id number] Dhiekson 08/12 08/13 MH Primary 4 Medical Care Group [facility] Outpatient [id number] Dhiekson 08/14 Active [facility] 5 [place] [facility] Outpatient [id number] Dhiekson 08/14 08/15 MH Primary 5 Medical Care Group [facility] Outpt Diag [id number] Dhiekson 08/14 08/15 [facility] Outpatient Services 7 [facility] Phone [id number] 09/13 09/15 MH Primary Message Medical Care Group [facility] Outpatient [id number] Rene 09/18 09/19 [facility] Psychiatric 1 s/Psychothe rapy (PSYR) [facility] Inpatient [id number] Tee Mccall 09/22 10/02 [place] [facility] Phone [id number] 10/22 10/24 MH Primary Message Medical Care Group [facility] Outpatient [id number] Dhiekson 11/04 Active [facility] 6 [place] [facility] Ambulatory [id number] Dhiekson 11/04 11/04 MH Primary Pre-Reg 6 Medical Care [facility] Phone [id number] 11/27 11/29 MH Primary Message Medical Care [facility] Outpatient [id number] Dhiekson 12/05 Active [facility] [place] [facility] Outpatient [id number] Dhiekson 12/05 12/06 MH Primary 7 Medical Care [facility] Phone [id number] 12/30 01/01 MH Primary Message Medical Care [facility] Outpatient [id number] Dhiekson 01/20 Active [facility] [place] [facility] Outpatient [id number] Dhiekson 01/20 01/21 MH Primary 8 Medical Care [facility] Phone [id number] 02/04 02/06 MH Primary Message Medical Care [facility] Phone [id number] 03/03 03/05 MH Primary Message Medical Care [facility] Phone [id number] 06/17 06/19 MH Primary Message Medical Care Group [facility] Phone [id number] 07/06 07/08 MH Primary Message Medical Care Group [facility] Phone [id number] 09/24 09/26 MH Primary Message [facility] [id number] 10/26 10/28 MH Primary Message Medical Care Group [facility] Outpatient [id number] Dhiekson 11/02 Active [facility] 9 [place] Outpatient [id number] Dhiekson 11/02 Active [facility] 0 [place] [facility] Phone [id number] 12/09 12/11 MH Primary Message Medical Care Group [facility] Between [id number] 12/19 12/20 MH Primary Visit Medical Care Group [facility] Phone [id number] 01/19 01/21 MH Primary Message Medical Care Group [facility] Phone [id number] 03/08 03/10 MH Primary Message [facility] [id number] 03/16 03/18 MH Primary Message Medical Care Group [facility] Procedures Procedure Code Date Perfomer Comments Source Removal of [id number] Medical neurostimulator 8 Group, electrode from [facility], OP ID spinal nerve root [facility] Epidurogram [id number] Medical 6 Group, [facility], [facility], OPID [facility] Implantation of [id number] Medica l neurostimulator in 5 Group, spine [facility], [facility], OPID [facility] Fusion of lumbar [id number] Medic al spine 4 Group, [facility], [facility], OPID [facility] Hip 515113112 complete left Medical replacement<sup>1</s 1 hip replacement Group, up> in 2010 [facility],MH OPID [facility] mammogram 28670 done Medical 7 Group bone density 4002.65 Normal Medical 5 Group Hip [id number] comepllete hip Medical replacement<sup>2</s 5 replacement Bruce up,MH up> right 2004 [facility], [facility], OPID [facility] Hysterectomy<sup>3</ [id number] 1985 [facility] edical sup> 6 Group, [facility], OPID [facility] Epidural steroid [id number] X6 in 2012 Medic al injection<sup>4</sup Grou p,MH > [facility], [facility], OPID [facility] Insertion of [id number] Morphine pump - [facility] jose luis infusion 12/11/2017 (Dr. Villanueva, pump<sup>5</sup> [place] [facility], OPID [place]) [facility] Operation<sup>6</sup [id number] Removal of [facility] edical > morphine pump Group,MH [facility], OPID [facility] Operation<sup>5</sup [id number] Removal of [facility] edical > morphine pump Group,[facility] Assessment and Plan Assessment and Plan Date Source Extracted from:Title: Discharge Summary * 10/02/2018 [facility] Author: Harjinder Alberto DO Date: 10/01/18 Discharge Information Admit date: September 24, 2018 Discharge date: October 01, 2018 Total time spent on discharge: 33 minutes Discharge diagnoses: - Acute lumbar pain on severe chronic low back pain - JEANNIE - sinus bradycardia- improved, likely re lated to vasovagal symptom from intractable pain, Dr. Godoy from cardiology following, pt is asymptomatic -Recurrent falls secondary to back pain and weakness -Benign essential hypertension -Anemia -Hypothyroidism -Depression -Insomnia -Morbid obesity -Lumbar L2-L3 compression fracture chronic - Normocytic normochromic chronic anemia Consulting physicians: Zain Bullard MD Office: MSO: [id number] Service: Physical Medicine/Rehabilitation Marcelo Godoy MD Office: [phone] MSO: [id number] Service: Cardiology, Medicine Michelle Cano MD Offi ce: MSO: [id number] Service: Anesthesiology Procedures: History and Hospital Course: 59-year-old female with significant past medical history of chronic back pain secondary to compression fractures that usually runs at baseline around 8 out of 10 post multiple surgeries and screw remova ls on August [address] Almanza currently on D ilaudid pain pump that dispenses 1 mg daily in the belly being managed by Dr. Reinaldo Worrell, hypertension, depression, hypothyroidism presented to the hospital o n 09/22/2018 with a chief complaint of in tractable back pain and right leg pain with recurrent falls. Patient continues to have severe pain . Neurosurgery Dr. Fernandez team is following, who reviewed sp ine myelogram and no surgical plans recommending pain manage ment Condition: Stable Disposition: SNF Medications: Refer to the discharge med rec Instructions: Activity: No restrictions. Follow-up: PCP 1 week Extracted from:Title: Cardiology Author: Patty Lizama NP Date: 10/01/18 Progress Daily [facility] Completed: Sep, 12:25 by Patty Lizama MIDWIFE RM: 1027 - 1P, SW E10B LIZET KLINE 68y (: 1950) F Attending: Tee Mccall MD Service: Internal Medicine Reason for Admission: LOW BACK PAIN Working DRG: Code status: Full Code Current diet: Isolation: No Isolation/Standard Precautions Allergies: morphine, acetaminophen-codeine, sulfa drugs(hive s), codeine(N/V) SUBJECTIVE Pt denies complaints OBJECTIVE Pt almost flat in bed, no acute distress noted ASSESSMENT and EXAM Alert, interactive CV: RRR, sinus bradycardia and tachycardia RESP: Shallow EXT: Trace edema PLAN and TREATMENT Sinus Bradycardia and Tachycardia: Asymp tomatic, BP stable, continue to monitor. Back Pain with Recurrent Falls: Continue pain medicine program, currently almost flat in bed. Hypothyroid: Continue repletion. Ready for Discharge (Yes/No)? At discretion of other service s (no lab data in past 24 hours) Vitals Tmp(F) Pulse BP RR SpO2 FIO2 10/01 08:00 98.1 54 114/57 18 96 --- 10/01 04:00 98.2 60 121/76 18 95 --- 10/01 00:00 98.5 67 116/69 20 95 --- 09/30 20:00 98.3 62 125/71 20 93 --- 09/30 16:00 98.7 68 120/67 18 93 --- 24 Hr Tmax: 98.7F (37.06c) at 09/30 16:0 0 Vital Signs are the last 5 in the past 48 hours. Date Wt(kg) Wt(lb) Ht(cm) Ht(in) Method 09/26 98.18 216.00 Estimated 09/22 (initial) 98.00 215.60 Measured 09/22 160.02 63.00 Stated I&O Record In Out Bal 10/01 24hr Tot 0 0 0 09/30 24hr Tot 1000 0 1000 Medications (28) Active Scheduled Meds (): 09/25/18 QUEtiapine (SEROquel) 50 mg PO Daily 09/25/18 betamethasone topical (Diprolene AF) 1 appl TOP BID 09/25/18 clotrimazole topical (clotrimazole topical 1% cream ) 1 appl TOP BID 09/25/18 docusate (Colace 100 mg oral capsule) 100 mg PO Q12 H 10/02/18 ergocalciferol (Vitamin D2) 50,000 IntlUnit PO QWed 09/28/18 (Suspended) furosemide (furosemide 20 mg oral tabl et) 20 mg PO Daily 09/28/18 heparin (heparin 5000 units/mL injectable solution) 5,000 unit SUB-Q Q8Hnow 09/26/18 levothyroxine 112 microgram PO Q630AM 09/28/18 (Suspended) losartan 100 mg PO Daily 09/23/18 melatonin (melatonin 3 mg oral tablet) 3 mg PO Bedt stan 09/22/18 methocarbamol (Robaxin) 500 mg PO TID 09/22/18 oxyCODONE (oxyCODONE 10 mg extended release) 20 mg PO Q12H 09/25/18 pantoprazole (Protonix) 40 mg PO Q24H 09/26/18 polyethylene glycol 3350 (MiraLax) 17 gm PO Every O ther Day 09/25/18 pramipexole 0.5 mg PO Bedtime 09/27/18 pregabalin (Lyrica) 150 mg PO QID 09/25/18 senna 17.2 mg PO BID 09/26/18 teriparatide (Forteo) 20 microgram SUB-Q Daily 09/26/18 venlafaxine (Effexor XR) 75 mg PO Daily Unscheduled Meds: None PRN Meds (9): 09/22/18 Dextrose 50% in Water IV (Dextrose 50% Syringe) 12. 5 gm IVP PRN 09/22/18 Dextrose 50% in Water IV (Dextrose 50% Syringe) 25 gm IVP PRN 09/22/18 acetaminophen 650 mg PO Q4H 09/22/18 glucagon 1 mg IM PRN 09/22/18 hydrALAZINE 10 mg IVP Q4H 09/25/18 hydromorphone (Dilaudid) 0.2 mg IVP Q8H 09/22/18 ondansetron 4 mg IVP Q8H 09/22/18 sodium chloride (Saline Flush 0.9%) 10 mL IVP PRN 09/25/18 zolpidem 5 mg PO Bedtime One Time Meds: None Continuous Infusions: None Extracted from:Title: History and Physical Author: Janet Garza DO Date: 09/22/18 68-year-old female with past medical his tory of chronic back pain with Dilaudid pain pump, hypertension, depression, hypothyroidism, history of back fusion with recent hardware removal on August [address] Archie galindo who presents with intractabl e back and right leg pain with recurrent falls over the last week. Assessment and plan 1. Acute on chronic back pain -Has Dilaudid pain pump -Start Robaxin and oxycodone scheduled. -IV Dilaudid as needed -Given that patient recently had hardwar e removal in the back, I have consulted neurosurgery for further evaluation. 2. Recurrent falls due to above -Hip x-ray and right knee x-ray were unremarkable. -PT OT to evaluate 3. Hypertension -Resume home medication was verified -IV hydralazine as needed 4. Anemia, stable DVT prophylaxis: SCDs CODE STATUS: Full code, decisional Low back pain(M54.5) Observation Extracted from:Title: Upper Extremity Trauma Admission H&P * 06/18/2017 [facility] Author: Ramos Hernandez MD Date: 06/16/17 Impression and Plan Diagnosis Closed Colles' fracture of left radius (UDR89-DG S52.532A, W orking, Medical). Orders Patient has left distal radius fracture. ER will place into sugartong splint. Can be treated non-operatively. Will monitor in clinic to make sure it has not displaced. Follow up with me in orthopedi c clinic within 10 days of discharge. W ill transition her to short arm cast at next clinic visit. Keep splint in place at all times. OK to discharge from orthopedic standpoint.. Plan of Care No Data Provided for This Section Social History Social History Date Source Social History TypeResponse 11/03/2019 [facility] Alcohol Never Employment/School Highest education level: Some college.1 Exercise Exercise duration: 0. Sexual Sexually active: No. Substance Abuse Use: None. Smoking Status Never smoker; Lives with someone who smo kes; Cigarette Smoking Last 365 Days No; Reg Smoking Cessation Counseling No entered on: 11/03/19 1married Smoking StatusStart DateEnd Date 10/07/[address] Unknown if ever smoked 10/22/2018 11:01:34 Social History TypeResponse 09/23/2018 GINA huertas Substance Abuse Use: None. Sexual Sexually active: No. Exercise Exercise duration: 0. Employment/School Highest education level: Some college.1 Alcohol Never Smoking Status Never smoker; Lives with someone who smo kes; Cigarette Smoking Last 365 Days No; Reg Smoking Cessation Counseling No entered on: 09/22/18 1married Social History TypeResponse 09/23/2018 [facility] Substance Abuse Use: None. Sexual Sexually active: No. Exercise Exercise duration: 0. Employment/School Highest education level: Some college.1 Alcohol Never Smoking Status Never smoker; Lives with someone who smo kes; Cigarette Smoking Last 365 Days No; Reg Smoking Cessation Counseling No entered on: 09/22/18 1married Social History TypeResponse 09/23/2018 [facility] Alcohol Never Employment/School Highest education level: Some college.1 Exercise Exercise duration: 0. Sexual Sexually active: No. Substance Abuse Use: None. Smoking Status Never smoker; Lives with someone who smo kes; Cigarette Smoking Last 365 Days No; Reg Smoking Cessation Counseling No entered on: 09/22/18 1married Social History TypeResponse 02/03/2016 [facility] Alcohol Never Smoking Status Never smoker; Lives with someone who smo kes; Cigarette Smoking Last 365 Days No; Reg Smoking Cessation Counseling No Social History ElementQualifiersDate Reported 01/03/2016 eCW: Rashmi Fraser Language: . Maldivian Jan 03, 2016 Marital Status: . Jan 03, 2016 Caffeine: yes. frequency:Sodas (Pepsi 3 or 4 a week) Jan 03, 2016 Exercise: yes. Walking,OCC Jan 03, 2016 Smoking/Tobacco Use: no. Patient is a: Never Smoker Jan 03, 2016 Alcohol: no. Jan 03, 2016 Travel outside [place]: no. Jan 03, 2016 Occupation: unemployed. Disabled Jan 03, 2016 Family History No Data Provided for This Section Advance Directives Order Name Results Value Date Source Advance Directives Advance Directives Resuscitation 10/22/[address] Advance Directives Advance Directives Resuscitation 07/26/[address] Functional Status No Data Provided for This Section
--- OUTSIDE RECORDS SUMMARY | 2020-04-12 18:52 | XMS REPORT | Continuity of Care Document ---
:1950 Author Organization [facility] t Address [address] [place] [address] Care Team Providers Name Role Phone Maty Kim Primary Care Physician BENNIE Attending Clinician Unavailable Saskia SULLIVAN Attending Clinician Unavailable BENNIE Admitting Clinician Unavailable Saskia SULLIVAN Admitting Clinician Unavailable Problems Condition Condition Condition Status Onset Resolution Last Treating Co mments Source Name Details Category Date Date Treatment Clinician Date Chronic Chronic Disease Active [facility]04 [facility] - 00:[facility]: [facility] 00 [facility] Wound, Wound, Disease Active [facility] surgical, surgical, 5-15 [facility] - infected infected 00:00: Medica l 00 [facility] Pre-op Pre-op Disease Active [facility] testing testing 5-15 [facility] - 00:00: Medical 00 [facility] Essential Essential Disease Active [facility] hypertensi hypertensi 3-12 Ileana kes - on on 00:00: Medical 00 [facility] Hypothyroi Hypothyroi Disease Active [facility] dism dism 3-12 [facility] - 00:00: Medical 00 [facility] Depression Depression Disease Active [facility] with with 3-12 [facility] - anxiety anxiety 00:00: Medical 00 [facility] Obesity Obesity Disease Active [facility] 3-12 [facility] - 00:00: Medical 00 [facility] Pain Pain Disease Active [facility] 3-12 [facility] - 00:00: Medical 00 [facility] Chronic Chronic Disease Active [facility] pain pain 2-16 [facility] - disorder disorder 00:00: Medica l 00 [facility] Allergies, Adverse Reactions, Alerts Allergy Allergy Status Severity Reaction(s) Onset Inactive Treating Comm ents Source Name Type Date Date Clinician Codeine Propensi Active Nausea And [facility] ty to Vomiting 2-06 [facility] - adverse 00:00: Medical reaction 00 Center s Sulfa Propensi Active Hives [facility] (Sulfona ty to 2-06 [facility] - mide adverse 00:00: Medical Antibiot reaction 00 Center ics) s Social History Social Habit Start Date Stop Date Quantity Comments Source Sex Assigned At [facility] Tobacco use and 2017-12-11 2017-12-11 Never used [facility] kes - exposure 00:00:00 00:00:00 [facility] Alcohol intake 2017-12-11 2017-12-11 [facility] - 00:00:00 00:00:00 non-drinker of Medical nter alcohol (finding) Smoking Status Start Date Stop Date Source Never smoker [facility] edical Center Medications Ordered Filled Start Stop Current Ordering Indication Dosage Frequency Signature Comments Components Source Medication Medication Date Date Medication? Clinician (SIG) Name Name levothyroxi Yes 112ug Take [address] ne 9-06 mcg by [facility] - (SYNTHROID, 16:19: mouth Medic al LEVOTHROID) 24 Every Center 112 MCG morning on tablet an empty stomach. pregabalin Yes 225mg Q.5D Take [address] (LYRICA) 9-06 mg by [facility] - 225 MG 16:19: mouth 2 Medical capsule 24 (two) Center times daily. clotrimazol Yes Q.5D Apply [facility]-betametha 06 topically Jael es - sone 16:19: 2 (two) Medical (LOTRISONE) 24 times Center 1-0.05 % daily. cream cholecalcif Yes [id number] Q7D Take [facility] brady, 9- 50,000 [facility] - vitamin D3, 16:19: Units by Me dical (DECARA) 24 mouth once Cente r 50,000 unit a week. capsule desvenlafax Yes 50mg QD Take [address] ine 9-06 by mouth [facility] - succinate 16:19: daily. Medica l (PRISTIQ) 24 Center 50 MG 24 hr tablet mirtazapine 2018-0 Yes 15mg QD Take [address] [address] (REMERON) 9-06 by mouth [facility] - 30 MG 16:19: nightly . Medical tablet 24 Center temazepam 2018-0 Yes 15mg Take [address] (RESTORIL) 9-06 by mouth [facility] - 15 mg 16:19: every Medical capsule 24 night as Center needed for Sleep. lidocaine 2018-0 Yes 1{patch Q24H Place [address] (LIDODERM) 12-13 } patch onto Jael es - 5 % patch 16:19: the skin Medi jose luis 24 daily Center Remove & Discard patch within 12 hours or as directed by . pramipexole 2018-0 Yes .5mg QD Take 0.[address] (MIRAPEX) 9-06 mg by [facility] - 0.5 MG 16:19: mouth Medical tablet 24 nightly. Center docusate 2018-0 Yes 100mg Q.5D Take [address] sodium 9-06 mg by [facility] - (COLACE) 16:19: mouth 2 Medica l 100 MG 24 (two) Center capsule times daily. oxymetazoli 2018-0 Yes 2{spray [address] [facility] ne (AFRIN) 12-13 } by Nasal [facility] - 0.05 % 16:19: route 2 Medical nasal spray 24 (two) Center times daily as needed for Congestion . diphenhydrA 2018-0 Yes 25mg Take [address] [facility] MINE - by mouth [facility] - (ZZZQUIL) 16:19: every Medical 25 mg 24 night as Center capsule needed (sleep). MENTHOL 2018-0 Yes 1{patch Q.5D Apply [address] (ICY HOT 12-13 } patch [facility] - PATCH TOP) 16:19: topically Me dical 24 2 (two) Center times daily. gabapentin 2018-0 Yes 300mg [id number] Take [address] (NEURONTIN) - [id number] mg by L ukes - 300 MG 16:19: 3D mouth 3 Medical capsule 24 (three) Center times daily. oxyCODONE 2018-0 Yes 15mg Take [address] (ROXICODONE -06 by mouth Luke s - ) 15 MG 16:19: every 4 Medical immediate 24 (four) Center release hours as tablet needed for Pain. furosemide 2018-0 Yes hypertensio 10mg QD Take [address] (LASIX) 20 9-06 n by mouth [facility] - MG tablet 16:19: daily. Medica [facility] Center Procedures This patient has no known procedures. Plan of Care Planned Activity Planned Date Details Comments Source Future Scheduled 2019-12-[address] [facility] - Test 00:00:00 (#1) [code = [facility] INFLUENZA VACCINE (#1)] Future Scheduled 2015-06-[address] [facility] - Test 00:00:00 WELLNESS (YEAR 2 or Medical Center FIRST YEAR if no IPPE) [code = MEDICARE ANNUAL WELLNESS (YEAR 2 or FIRST YEAR if no IPPE)] Future Scheduled [address] [facility] Jael es - Test 00:00:00 malignant neoplasm Medical C enter of breast (procedure) [code = 772416443] Future Scheduled [address] [facility] Jael es - Test 00:00:00 malignant neoplasm Medical C enter of colon (procedure) [code = 833294067] Encounters Start End Encounter Admission Attending Care Care Encounter Source Date/Time Date/Time Type Type Clinicians Facility Department ID 2018-09-24 2018-09-22 Inpatient E [facility] MED [id number] [facility] 16:43:00 13:56:00 Results Test Description Test Time Test Comments Results Result [facility] e Comments [place], 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 /FREE T4 IF INDICATED 2017-12-13 06:42:00 Test Item Value Reference Range Interpretation Comme nts THYROID STIMULATING HORMONE (BEAKER) (test code = 772) 2.89 uIU/mL 0.35-4.94 BASIC METABOLIC [id number] 06:22:00 Test Item Value Reference Range Interpretation Comments SODIUM (BEAKER) 140 meq/L 136-145 (test code = 381) POTASSIUM (BEAKER) 4.3 meq/L 3.5-5.1 (test code = 379) CHLORIDE (BEAKER) 107 meq/L 98-107 (test code = 382) CO2 (BEAKER) (test 28 meq/L 22-29 code = 355) BLOOD UREA NITROGEN 11 mg/dL 7-21 (BEAKER) (test code = 354) CREATININE (BEAKER) 0.87 mg/dL 0.57-1.25 (test code = 358) GLUCOSE RANDOM 85 mg/dL 70-105 (BEAKER) (test code = 652) CALCIUM (BEAKER) 8.8 mg/dL 8.4-10.2 (test code = 697) EGFR (BEAKER) (test 65 mL/min/1.73 ESTIMA REENA GFR IS code = 1092) sq m NOT ACCURATE CREATININE CLEARANCE IN PREDICTING GLOMERULAR FILTRATION RATE . ESTIMATED GFR I S NOT APPLICABLE FOR DIALYSIS PATIEN TS. CBC W/PLT COUNT & AUTO [id number] 06:14:00 Test Item Value Reference Range Interpretation Comments WHITE BLOOD CELL COUNT (BEAKER) 8.4 K/ L 3.5-10.5 (test code = 775) RED BLOOD CELL COUNT (BEAKER) 3.65 M/ L 3.93-5.22 L (test code = 761) HEMOGLOBIN (BEAKER) (test code = 9.9 GM/DL 11.2-15.7 L 410) HEMATOCRIT (BEAKER) (test code = 32.6 % 34.1-44.9 L 411) MEAN CORPUSCULAR VOLUME (BEAKER) 89.3 fL 79.4-94.8 (test code = 753) MEAN CORPUSCULAR HEMOGLOBIN 27.1 pg 25.6-32.2 (BEAKER) (test code = 751) MEAN CORPUSCULAR HEMOGLOBIN CONC 30.4 GM/DL 32.2-35.5 L (BEAKER) (test code = 752) RED CELL DISTRIBUTION WIDTH 14.9 % 11.7-14.4 H (BEAKER) (test code = 412) PLATELET COUNT (BEAKER) (test 180 K/CU MM 150-450 code = 756) MEAN PLATELET VOLUME (BEAKER) 11.7 fL 9.4-12.3 (test code = 754) NUCLEATED RED BLOOD CELLS 0 /100 WBC 0-0 (BEAKER) (test code = 413) NEUTROPHILS RELATIVE PERCENT 62 % (BEAKER) (test code = 429) LYMPHOCYTES RELATIVE PERCENT 28 % (BEAKER) (test code = 430) MONOCYTES RELATIVE PERCENT 7 % (BEAKER) (test code = 431) EOSINOPHILS RELATIVE PERCENT 2 % (BEAKER) (test code = 432) BASOPHILS RELATIVE PERCENT 1 % (BEAKER) (test code = 437) NEUTROPHILS ABSOLUTE COUNT 5.24 K/ L 1.56-6.13 (BEAKER) (test code = 670) LYMPHOCYTES ABSOLUTE COUNT 2.37 K/ L 1.18-3.74 (BEAKER) (test code = 414) MONOCYTES ABSOLUTE COUNT (BEAKER) 0.55 K/ L 0.24-0.36 H (test code = 415) EOSINOPHILS ABSOLUTE COUNT 0.17 K/ L 0.04-0.36 (BEAKER) (test code = 416) BASOPHILS ABSOLUTE COUNT (BEAKER) 0.04 K/ L 0.01-0.08 (test code = 417) IMMATURE GRANULOCYTES-RELATIVE 1 % 0-1 PERCENT (BEAKER) (test code = 2801) LACTIC ACID, VENOUS, WHOLE [id number] 15:27:00 Test Item Value Reference Range Interpretation Comments LACTATE BLOOD VENOUS (2) (BEAKER) 1.1 mmol/L 0.5-2.2 (test code = 2872) Effective 08/11/2015: Units/Reference Range ChangeNew: 0.5-2.2 mmol/L Previous: 5-20 mg/dLBASIC METABOLIC [id number] 13:31:00 Test Item Value Reference Range Interpretation Comments SODIUM (BEAKER) 135 meq/L 136-145 L (test code = 381) POTASSIUM (BEAKER) 4.4 meq/L 3.5-5.1 (test code = 379) CHLORIDE (BEAKER) 103 meq/L 98-107 (test code = 382) CO2 (BEAKER) (test 29 meq/L 22-29 code = 355) BLOOD UREA NITROGEN 15 mg/dL 7-21 (BEAKER) (test code = 354) CREATININE (BEAKER) 1.08 mg/dL 0.57-1.25 (test code = 358) GLUCOSE RANDOM 82 mg/dL 70-105 (BEAKER) (test code = 652) CALCIUM (BEAKER) 8.3 mg/dL 8.4-10.2 L (test code = 697) EGFR (BEAKER) (test 50 mL/min/1.73 ESTIMA REENA GFR IS code = 1092) sq m NOT ACCURATE CREATININE CLEARANCE IN PREDICTING GLOMERULAR FILTRATION RATE . ESTIMATED GFR I S NOT APPLICABLE FOR DIALYSIS PATIEN TS. CBC W/PLT COUNT & AUTO [id number] 13:05:00 Test Item Value Reference Range Interpretation Comments WHITE BLOOD CELL COUNT (BEAKER) 6.6 K/ L 3.5-10.5 (test code = 775) RED BLOOD CELL COUNT (BEAKER) 3.37 M/ L 3.93-5.22 L (test code = 761) HEMOGLOBIN (BEAKER) (test code = 9.1 GM/DL 11.2-15.7 L 410) HEMATOCRIT (BEAKER) (test code = 30.3 % 34.1-44.9 L 411) MEAN CORPUSCULAR VOLUME (BEAKER) 89.9 fL 79.4-94.8 (test code = 753) MEAN CORPUSCULAR HEMOGLOBIN 27.0 pg 25.6-32.2 (BEAKER) (test code = 751) MEAN CORPUSCULAR HEMOGLOBIN CONC 30.0 GM/DL 32.2-35.5 L (BEAKER) (test code = 752) RED CELL DISTRIBUTION WIDTH 14.9 % 11.7-14.4 H (BEAKER) (test code = 412) PLATELET COUNT (BEAKER) (test 202 K/CU MM 150-450 code = 756) MEAN PLATELET VOLUME (BEAKER) 10.7 fL 9.4-12.3 (test code = 754) NUCLEATED RED BLOOD CELLS 0 /100 WBC 0-0 (BEAKER) (test code = 413) NEUTROPHILS RELATIVE PERCENT 52 % (BEAKER) (test code = 429) LYMPHOCYTES RELATIVE PERCENT 38 % (BEAKER) (test code = 430) MONOCYTES RELATIVE PERCENT 8 % (BEAKER) (test code = 431) EOSINOPHILS RELATIVE PERCENT 2 % (BEAKER) (test code = 432) BASOPHILS RELATIVE PERCENT 0 % (BEAKER) (test code = 437) NEUTROPHILS ABSOLUTE COUNT 3.43 K/ L 1.56-6.13 (BEAKER) (test code = 670) LYMPHOCYTES ABSOLUTE COUNT 2.51 K/ L 1.18-3.74 (BEAKER) (test code = 414) MONOCYTES ABSOLUTE COUNT (BEAKER) 0.51 K/ L 0.24-0.36 H (test code = 415) EOSINOPHILS ABSOLUTE COUNT 0.10 K/ L 0.04-0.36 (BEAKER) (test code = 416) BASOPHILS ABSOLUTE COUNT (BEAKER) 0.02 K/ L 0.01-0.08 (test code = 417) IMMATURE GRANULOCYTES-RELATIVE 0 % 0-1 PERCENT (BEAKER) (test code = 2801) FL, 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 Fluoroscopy time 15.2 seconds. Fluoroscopy was not performed by the undersigned. Refer to procedure notes for diagnostic and therapeutic detail. Signed: Tiara Pedersenepjoanna Verified Date/Time: 12/11/2017 11:03:55 Reading Location:[facility] Radiology Reading Room TISSUE EXAM 2017-12-04 17:14:00Surgical Pathology Report Case: [id number] Authorizing Provider: Jerome Arias MD Collected: 11/30/2017 1327 Ordering Location: [facility] Received: 11/30/2017 1424 SERVICES Pathologist: Susan Ramos MD Specimen: Explant, hardware NEURAL STIMULATOR, REMOVAL: - HARDWARE IDENTIFIED (GROSS DIAGNOSIS) Signing Pathologist Direct Phone Line: [phone] pain disorderHardware, neural stimulator The specimen is received in a fluidless container labeled with patient information and labeled "hardware neural stimulator" and consists of a neural stimulator battery measuring5.2 x 5 x 0.6 cm with two attached leads measuring 60 cm in length x 0.1 cm in diameter. Specimen serial number [id number]. The specimen is submitted for gross identification only. CG/plMR, SPINE, THORACIC, [id number] 11:58:00FINAL REPORT MR thoracic and lumbar spine with and without contrast INDICATION: Status post spinal cord stimulator explant. TECHNIQUE: MRI of the thoracic and lumbar spine utilizing the following sequences: Sagittal T1, T2, STIR; axial T1 and T2, postcontrast sagittal and axial T1 with fat suppression. Due to PACS downtime, there was delay in transmission of this study to PACS.It was available for dictation by the interpreting radiologist on 12/04/2017. COMPARISON: None available FINDINGS: Thoracic:There are partial laminectomy changes at T7-8 and T8-9 with a small volume dorsal paraspinal muscle fluid collection extending along the surgical tract toward the skin. This measures up to 4 cm AP in the dorsal paraspinal soft tissues. There is subcutaneous, dorsal paraspinal, dural, and epidural enhancement suggesting postsurgical granulation changes. No mass effect or abnormal cord signal is evident. No focal epidural collection is seen. There are conspicuous degenerative vertebral endplate changes at T11-12, other lesser endplate changes, and a small T8 hemangioma. Thoracic vertebral height and alignment are otherwise maintained. There is multilevel degenerative disc disease and facet arthropathy. There are small paracentral disc protrusions at T1 to and T2-3, a small central disc protrusion at T7-8, and a central disc osteophyte complexes at T10-11 and T11-12 with mild canal stenosis. Neural foraminal stenoses are optimally mild to moderate in degree T10-11 and T11-12 on the right, with other mild foraminal stenoses. Bilateral dependent lung opacities most likely reflect atelectasis in this patient with anesthesia related support hardware in place. Lumbar:There hasbeen lumbosacral spinal fusion from L1 to S1 with bilateral rods and screws. There has been dorsal decompression from L2-3 to L5-S1. Artifacts from hardware limit assessment of the canal and neural foramina. There is mild anterolisthesis at L5-S1. There is right convex upper and left convex lower lumbar spine curvature. There are multilevel degenerative endplate changes, most notable at L5-S1. Vertebral height and alignment are otherwise maintained. The conus medullaris is unremarkable and terminates at L2. There is universal degenerative disc disease and residual facet arthropathy with disc osteophyte complexes at all levels. Canal stenosis appears mild at L1-2. Neural foraminal stenoses are moderate to severe at L5-S1, suboptimally depicted due to artifacts. Foraminal stenoses appear mild at L2-3, L3-4, and L4-5 and minimal at L1-2 bilaterally. There is a partially imaged exophytic cystic appearing right renal lesion for which dedicated imaging is suggested. Small bilateral lower pole T2 hyperintense lesions statistically likely reflect cysts. There is a left iliac wing suspected hemangioma.There is paraspinal muscle deconditioning. IMPRESSION: Thoracic spine: 1. Postoperative changes related to spinal cord stimulator explantation, with no worrisome features. 2. Multilevel degenerative spine changes with mild T10-11 and T11-12 canal stenosis and mild to moderate right foraminal stenoses at these levels. 3. No specific evidence of abnormal cord signal. Lumbar spine: 1. Prior L1-S1 posterior spinal fusion with dorsal decompression changes. 2. Residual degenerative changes with mild L1-2 spinal canal stenosis. 3. Moderate to severe L5-S1 foraminal stenoses, and other lesser foraminal stenoses as discussed. Advise correlation with radiculopathic symptoms. 4. Partially visualized exophytic right renal lesion. Advise dedicated imaging. Signed: Autumn Watson MDReport Verified Date/Time: 12/04/2017 11:58:05 Reading Location: [address] Neuro Reading Room MR, SPINE, LUMBAR, [id number] 11:58:00FINAL REPORT MR thoracic and lumbar spine with and without contrast INDICATION: Status post spinal cord stimulator explant. TECHNIQUE: MRI of the thoracic and lumbar spine utilizing the following sequences: Sagittal T1, T2, STIR; axial T1 and T2, postcontrast sagittal and axial T1 with fat suppression. Due to PACS downtime, there was delay in transmission of this study to PACS.It was available for dictation by the interpreting radiologist on 12/04/2017. COMPARISON: None available FINDINGS: Thoracic:There are partial laminectomy changes at T7-8 and T8-9 with a small volume dorsal paraspinal muscle fluid collection extending along the surgical tract toward the skin. This measures up to 4 cm AP in the dorsal paraspinal soft tissues. There is subcutaneous, dorsal paraspinal, dural, and epidural enhancement suggesting postsurgical granulation changes. No mass effect or abnormal cord signal is evident. No focal epidural collection is seen. There are conspicuous degenerative vertebral endplate changes at T11-12, other lesser endplate changes, and a small T8 hemangioma. Thoracic vertebral height and alignment are otherwise maintained. There is multilevel degenerative disc dise ase and facet arthropathy. There are small paracentral disc protrusions at T1 to and T2-3, a small central disc protrusion at T7-8, and a central disc osteophyte complexes at T10-11 and T11-12 with mild canal stenosis. Neural foraminal stenoses are optimally mild to moderate in degree T10-11 and T11-12 on the right, with other mild foraminal stenoses. Bilateral dependent lung opacities most likely reflect atelectasis in this patient with anesthesia related support hardware in place. Lumbar:There hasbeen lumbosacral spinal fusion from L1 to S1 with bilateral rods and screws. There has been dorsal decompression from L2-3 to L5-S1. Artifacts from hardware limit assessment of the canal and neural fora clotilde. There is mild anterolisthesis at L5-S1. There is right convex upper and left convex lower lumbar spine curvature. There are multilevel degenerative endplate changes, most notable at L5-S1. Vertebral height and alignment are otherwise maintained. The conus medullaris is unremarkable and terminates at L2. There is universal degenerative disc disease and residual facet arthropathy with disc osteophyte complexes at all levels. Canal stenosis appears mild at L1-2. Neural foraminal stenoses are moderate to severe at L5-S1, suboptimally depicted due to artifacts. Foraminal stenoses appear mild at L2-3, L3-4, and L4-5 and minimal at L1-2 bilaterally. There is a partially imaged exophytic cystic appea ring right renal lesion for which dedicated imaging is suggested. Small bilateral lower pole T2 hyperintense lesions statistically likely reflect cysts. There is a left iliac wing suspected hemangioma.There is paraspinal muscle deconditioning. IMPRESSION: Thoracic spine: 1. Postoperative changes related to spinal cord stimulator explantation, with no worrisome features. 2. Multilevel degenerative spine changes with mild T10-11 and T11-12 canal stenosis and mild to moderate right foraminal stenoses at these levels. 3. No specific evidence of abnormal cord signal. Lumbar spine: 1. Prior L1-S1 posterior spinal fusion with dorsal decompression changes. 2. Residual degenerative changes with mild L1-2 s virgil canal stenosis. 3. Moderate to severe L5-S1 foraminal stenoses, and other lesser foraminal stenoses as discussed. Advise correlation with radiculopathic symptoms. 4. Partially visualized exophytic right renal lesion. Advise dedicated imaging. Signed: Autumn Watson MDReport Verified Date/Time: 12/04/2017 11:58:05 Reading Location: [facility] B1 C013V Neuro Reading Room RAD, CHEST, 2 VIEWS 2017-12-01 16:14:00Reason for exam:->Chronic Pain DisorderFINAL REPORT INDICATION: Chronic Pain Disorder COMPARISON: May 15, 2017 TECHNIQUE: Chest radiograph, two views, PA and lateral. FINDINGS / IMPRESSION:Mildly enlarged heart shadow is again demonstrated without pulmonary venous congestion or edema. No pneumonia, pneumothorax, or pleural effusion is demonstrated. Osseous structures are notable for partially imaged lumbar fusion hardware. Signed: Roni Barnett Verified Date/Time: 12/01/2017 16:14:55 Reading Location: [facility] B1 C013X Ortho Consult Reading Room ALYSIS W/ REFLEX URINE [id number] 10:01:00 Test Item Value Reference Range Interpretation Comments COLOR (BEAKER) (test code = 470) Yellow CLARITY (BEAKER) (test code = 469) Clear SPECIFIC GRAVITY UA (BEAKER) (test 1.010 1.001-1.035 code = 468) PH UA (BEAKER) (test code = 467) 5.5 5.0-8.0 PROTEIN UA (BEAKER) (test code = Negative Negative 464) GLUCOSE UA (BEAKER) (test code = Negative Negative 365) KETONES UA (BEAKER) (test code = Negative Negative 371) BILIRUBIN UA (BEAKER) (test code = Negative Negative 462) BLOOD UA (BEAKER) (test code = 461) Negative Negative NITRITE UA (BEAKER) (test code = Negative Negative 465) LEUKOCYTE ESTERASE UA (BEAKER) Negative Negative (test code = 466) UROBILINOGEN UA (BEAKER) (test code 0.2 mg/dL 0.2-1.0 = 463) RBC UA (BEAKER) (test code = 519) < /HPF WBC UA (BEAKER) (test code = 520) 1 /HPF SQUAMOUS EPITHELIAL (BEAKER) (test < /HPF code = 516) SOURCE(BEAKER) (test code = 2795) BASIC METABOLIC [id number] 09:45:00 Test Item Value Reference Range Interpretation Comments SODIUM (BEAKER) 139 meq/L 136-145 (test code = 381) POTASSIUM (BEAKER) 4.4 meq/L 3.5-5.1 (test code = 379) CHLORIDE (BEAKER) 101 meq/L 98-107 (test code = 382) CO2 (BEAKER) (test 31 meq/L 22-29 H code = 355) BLOOD UREA NITROGEN 9 mg/dL 7-21 (BEAKER) (test code = 354) CREATININE (BEAKER) 0.99 mg/dL 0.57-1.25 (test code = 358) GLUCOSE RANDOM 109 mg/dL 70-105 H (BEAKER) (test code = 652) CALCIUM (BEAKER) 9.8 mg/dL 8.4-10.2 (test code = 697) EGFR (BEAKER) (test 56 mL/min/1.73 ESTIMA REENA GFR IS code = 1092) sq m NOT ACCURATE CREATININE CLEARANCE IN PREDICTING GLOMERULAR FILTRATION RATE . ESTIMATED GFR I S NOT APPLICABLE FOR DIALYSIS PATIEN TS. [id number] 09:26:00 Test Item Value Reference Range Interpretation Comments PARTIAL THROMBOPLASTIN TIME 36.9 seconds 22.5-36.0 H (BEAKER) (test code = 760) PROTHROMBIN TIME/[id number] 09:25:00 Test Item Value Reference Range Interpretation Comments PROTIME (BEAKER) (test code = 15.0 seconds 11.7-14.7 H 759) INR (BEAKER) (test code = 370) 1.2 <=5.9 RECOMMENDED COUMADIN/WARFARIN INR THERAPY RANGESSTANDARD DOSE: 2.0 - 3.0 Includes: PROPHYLAXIS forvenous thrombosis, systemic embolization; TREATMENT for venous thrombosis and/or pulmonary embolus.HIGH RISK: Target INR is 2.5-3.5 for patients with mechanical heart valves.CBC W/PLT COUNT & AUTO DIFFERENTIAL 2017-11-30 09:11:00 Test Item Value Reference Range Interpretation Comments WHITE BLOOD CELL COUNT (BEAKER) 8.5 K/ L 3.5-10.5 (test code = 775) RED BLOOD CELL COUNT (BEAKER) 4.09 M/ L 3.93-5.22 (test code = 761) HEMOGLOBIN (BEAKER) (test code = 11.2 GM/DL 11.2-15.7 410) HEMATOCRIT (BEAKER) (test code = 35.2 % 34.1-44.9 411) MEAN CORPUSCULAR VOLUME (BEAKER) 86.1 fL 79.4-94.8 (test code = 753) MEAN CORPUSCULAR HEMOGLOBIN 27.4 pg 25.6-32.2 (BEAKER) (test code = 751) MEAN CORPUSCULAR HEMOGLOBIN CONC 31.8 GM/DL 32.2-35.5 L (BEAKER) (test code = 752) RED CELL DISTRIBUTION WIDTH 15.4 % 11.7-14.4 H (BEAKER) (test code = 412) PLATELET COUNT (BEAKER) (test 249 K/CU MM 150-450 code = 756) MEAN PLATELET VOLUME (BEAKER) 10.1 fL 9.4-12.3 (test code = 754) NUCLEATED RED BLOOD CELLS 0 /100 WBC 0-0 (BEAKER) (test code = 413) NEUTROPHILS RELATIVE PERCENT 56 % (BEAKER) (test code = 429) LYMPHOCYTES RELATIVE PERCENT 34 % (BEAKER) (test code = 430) MONOCYTES RELATIVE PERCENT 7 % (BEAKER) (test code = 431) EOSINOPHILS RELATIVE PERCENT 3 % (BEAKER) (test code = 432) BASOPHILS RELATIVE PERCENT 1 % (BEAKER) (test code = 437) NEUTROPHILS ABSOLUTE COUNT 4.77 K/ L 1.56-6.13 (BEAKER) (test code = 670) LYMPHOCYTES ABSOLUTE COUNT 2.89 K/ L 1.18-3.74 (BEAKER) (test code = 414) MONOCYTES ABSOLUTE COUNT (BEAKER) 0.59 K/ L 0.24-0.36 H (test code = 415) EOSINOPHILS ABSOLUTE COUNT 0.21 K/ L 0.04-0.36 (BEAKER) (test code = 416) BASOPHILS ABSOLUTE COUNT (BEAKER) 0.05 K/ L 0.01-0.08 (test code = 417) IMMATURE GRANULOCYTES-RELATIVE 0 % 0-1 PERCENT (BEAKER) (test code = 2801) AFB CULTURE + [id number] 14:00:00 Test Item Value Reference Range Interpretation Comments CULTURE (BEAKER) (test No acid-fast bacilli code = 1095) isolated in 42 days AFB SMEAR (BEAKER) No acid fast bacilli (test code = 994) seen FUNGUS CULTURE + [id number] 15:41:00 Test Item Value Reference Range Interpretation Comments CULTURE (BEAKER) (test No fungus isolated in code = 1095) 28 days FUNGUS SMEAR (BEAKER) No fungi seen (test code = 1406) ANAEROBIC [id number] 04:04:00 Test Item Value Reference Range Interpretation Comments CULTURE (BEAKER) (test No anaerobes isolated code = 1095) SURGICALLY OBTAINED CULTURE + GRAM [id number] 14:12:00 Test Item Value Reference Interpretation Comments Range CULTURE (BEAKER) STAPHYLOCOCCUS A 1+ Staphy lococcus (test code = 1095) AUREUS aureus Clindamycin (test S code = 10) Erythromycin (test R code = 4) Linezolid (test code S = 40) Nitrofurantoin (test S code = 23) Oxacillin (test code S = 14) Rifampin (test code = S 43) Tetracycline (test S code = 2) Trimethoprim + S Sulfamethoxazole (test code = 47) Vancomycin (test code S = 13) GRAM STAIN RESULT 1+ WBCs (BEAKER) (test code = 1123) GRAM STAIN RESULT <1+ gram positive (BEAKER) (test code = cocci in clusters [id number]) TISSUE [id number] 15:59:00Surgical Pathology Report Case: [id number] Authorizing Provider: Jerome Arias MD Collected: 08/21/2017 1456 Ordering Location: [facility] Received: 08/22/2017 0819 SERVICES Pathologist: Rebeca Patricia MD Specimen: Explant, HARDWARE HARDWARE, INTRATHECAL PUMP, REMOVAL: - RAG GRADER, GROSS IDENTIFICATION ONLY Signing Pathologist Direct Phone Line: [phone] signed by Rebeca Patricia MD on 08/22/2017 at 3:59 [facility]/[id number] pain disorder Hardware The specimen is received in a fluidless container labeled with the patient's information and labeled "hardware" and consists of a programmable pump measuring 8 x 7 x 1.7 cm with a 70 cm lead. The serial number for the programmable pump is "[id number]". The specimen is submitted for gross identification. CG/ew Not performedSPIN/CONCENTRATION [id number] 11:42:00 Test Item Value Reference Range Interpretation Comments CONCENTRATION CHARGED (BEAKER) (test Done code = 2657) [id number] 06:19:00 Test Item Value Reference Range Interpretation Comments SODIUM (BEAKER) (test code = 381) 138 meq/L 136-145 POTASSIUM (BEAKER) (test code = 3.8 meq/L 3.5-5.1 379) CHLORIDE (BEAKER) (test code = 382) 105 meq/L 98-107 CO2 (BEAKER) (test code = 355) 27 meq/L 22-29 CBC (HEMOGRAM ONLY)2017-08-22 05:43:00 Test Item Value Reference Range Interpretation Comments WHITE BLOOD CELL COUNT (BEAKER) 6.6 K/ L 3.5-10.5 (test code = 775) RED BLOOD CELL COUNT (BEAKER) 4.03 M/ L 3.93-5.22 (test code = 761) HEMOGLOBIN (BEAKER) (test code = 9.7 GM/DL 11.2-15.7 L 410) HEMATOCRIT (BEAKER) (test code = 31.9 % 34.1-44.9 L 411) MEAN CORPUSCULAR VOLUME (BEAKER) 79.2 fL 79.4-94.8 L (test code = 753) MEAN CORPUSCULAR HEMOGLOBIN 24.1 pg 25.6-32.2 L (BEAKER) (test code = 751) MEAN CORPUSCULAR HEMOGLOBIN CONC 30.4 GM/DL 32.2-35.5 L (BEAKER) (test code = 752) RED CELL DISTRIBUTION WIDTH 16.3 % 11.7-14.4 H (BEAKER) (test code = 412) PLATELET COUNT (BEAKER) (test 213 K/CU MM 150-450 code = 756) MEAN PLATELET VOLUME (BEAKER) 10.7 fL 9.4-12.3 (test code = 754) NUCLEATED RED BLOOD CELLS 0 /100 WBC 0-0 (BEAKER) (test code = 413) CREATINE KINASE (CK), TOTAL AND [id number] 00:38:00 Test Item Value Reference Range Interpretation Comments CREATINE KINASE TOTAL (BEAKER) 46 U/L 29-200 (test code = 380) CREATINE KINASE-MB (BEAKER) (test 1.0 ng/mL 0.0-6.6 code = 750) CREATINE KINASE-MB INDEX (BEAKER) 2.2 % (test code = 395) CK-MB Reference Range:<6.7 Normal6.7-10.0 Borderline>10.0 AbnormalTROPONIN [id number] 00:38:00 Test Item Value Reference Range Interpretation Comments TROPONIN I (BEAKER) (test code = 397) < ng/mL 0.00-0.03 Troponin I (TnI) levels must be interpreted in the context of the presenting symptoms and the clinical findings. Elevated TnI levels indicate myocardial damage, but are not specific for ischemic heart disease. Elevated TnI levels are seen in patients with other cardiac conditions (including myocarditis and congestive heart failure), and slight TnI elevations occur in patients with other conditions, including sepsis, renal failure, acidosis, acute neurological disease, and persistent tachyarrhythmia.HEPATIC FUNCTION [id number] 00:35:00 Test Item Value Reference Range Interpretation Comments TOTAL PROTEIN (BEAKER) (test code = 6.7 gm/dL 6.0-8.3 770) ALBUMIN (BEAKER) (test code = 1145) 3.1 g/dL 3.5-5.0 L BILIRUBIN TOTAL (BEAKER) (test code 0.3 mg/dL 0.2-1.2 = 377) BILIRUBIN DIRECT (BEAKER) (test 0.1 mg/dL 0.1-0.5 code = 706) ALKALINE PHOSPHATASE (BEAKER) (test 65 U/L 40-150 code = 346) AST (SGOT) (BEAKER) (test code = 15 U/L 5-34 353) ALT (SGPT) (BEAKER) (test code = 8 U/L 6-55 347) PROTHROMBIN [id number] 00:25:00 Test Item Value Reference Range Interpretation Comments PROTIME (BEAKER) (test code = 15.9 seconds 11.7-14.7 H 759) INR (BEAKER) (test code = 370) 1.3 <=5.9 RECOMMENDED COUMADIN/WARFARIN INR THERAPY RANGESSTANDARD DOSE: 2.0 - 3.0 Includes: PROPHYLAXIS forvenous thrombosis, systemic embolization; TREATMENT for venous thrombosis and/or pulmonary embolus.HIGH RISK: Target INR is 2.5-3.5 for patients with mechanical heart valves.PLATELET [id number] 12:50:00 Test Item Value Reference Range Interpretation Comments PLATELET COUNT (BEAKER) (test 197 K/CU MM 150-450 code = 756) BASIC METABOLIC [id number] 11:36:00 Test Item Value Reference Range Interpretation Comments SODIUM (BEAKER) 142 meq/L 136-145 (test code = 381) POTASSIUM (BEAKER) 3.7 meq/L 3.5-5.1 Specimen slightly (test code = 379) hemolyzed CHLORIDE (BEAKER) 105 meq/L 98-107 (test code = 382) CO2 (BEAKER) (test 25 meq/L 22-29 code = 355) BLOOD UREA NITROGEN 7 mg/dL 7-21 (BEAKER) (test code = 354) CREATININE (BEAKER) 0.90 mg/dL 0.57-1.25 Specimen slightly (test code = 358) hemolyzed GLUCOSE RANDOM 89 mg/dL 70-105 (BEAKER) (test code = 652) CALCIUM (BEAKER) 8.7 mg/dL 8.4-10.2 (test code = 697) EGFR (BEAKER) (test 62 mL/min/1.73 ESTIMA REENA GFR IS code = 1092) sq m NOT ACCURATE CREATININE CLEARANCE IN PREDICTING GLOMERULAR FILTRATION RATE . ESTIMATED GFR I S NOT APPLICABLE FOR DIALYSIS PATIEN TS. URINALYSIS W/ REFLEX URINE [id number] 11:28:00 Test Item Value Reference Range Interpretation Comments COLOR (BEAKER) (test code = 470) Yellow CLARITY (BEAKER) (test code = 469) Clear SPECIFIC GRAVITY UA (BEAKER) (test 1.019 1.001-1.035 code = 468) PH UA (BEAKER) (test code = 467) 6.0 5.0-8.0 PROTEIN UA (BEAKER) (test code = 20 mg/dL Negative A 464) GLUCOSE UA (BEAKER) (test code = Negative Negative 365) KETONES UA (BEAKER) (test code = Negative Negative 371) BILIRUBIN UA (BEAKER) (test code = Negative Negative 462) BLOOD UA (BEAKER) (test code = 461) Negative Negative NITRITE UA (BEAKER) (test code = Negative Negative 465) LEUKOCYTE ESTERASE UA (BEAKER) Trace Negative A (test code = 466) UROBILINOGEN UA (BEAKER) (test code 0.2 mg/dL 0.2-1.0 = 463) RBC UA (BEAKER) (test code = 519) 0 /HPF WBC UA (BEAKER) (test code = 520) 4 /HPF BACTERIA (BEAKER) (test code = 517) Rare MUCUS (BEAKER) (test code = 1574) Many SQUAMOUS EPITHELIAL (BEAKER) (test 2 /HPF code = 516) SOURCE(BEAKER) (test code = 9575) CBC W/PLT COUNT & AUTO [id number] 11:27:00 Test Item Value Reference Range Interpretation Comments WHITE BLOOD CELL COUNT 4.4 K/ L 3.5-10.5 (BEAKER) (test code = 775) RED BLOOD CELL COUNT 3.67 M/ L 3.93-5.22 L (BEAKER) (test code = 761) HEMOGLOBIN (BEAKER) 9.1 GM/DL 11.2-15.7 L (test code = 410) HEMATOCRIT (BEAKER) 29.3 % 34.1-44.9 L (test code = 411) MEAN CORPUSCULAR VOLUME 79.8 fL 79.4-94.8 (BEAKER) (test code = 753) MEAN CORPUSCULAR 24.8 pg 25.6-32.2 L HEMOGLOBIN (BEAKER) (test code = 751) MEAN CORPUSCULAR 31.1 GM/DL 32.2-35.5 L HEMOGLOBIN CONC (BEAKER) (test code = 752) RED CELL DISTRIBUTION 16.2 % 11.7-14.4 H WIDTH (BEAKER) (test code = 412) PLATELET COUNT (BEAKER) 21 K/CU MM 150-450 L (test code = 756) MEAN PLATELET VOLUME fL 9.4-12.3 Unable to report due (BEAKER) (test code = to abn ormal Platelet 754) population distribution. NUCLEATED RED BLOOD 0 /100 WBC 0-0 CELLS (BEAKER) (test code = 413) NEUTROPHILS RELATIVE 57 % PERCENT (BEAKER) (test code = 429) LYMPHOCYTES RELATIVE 37 % PERCENT (BEAKER) (test code = 430) MONOCYTES RELATIVE 5 % PERCENT (BEAKER) (test code = 431) EOSINOPHILS RELATIVE 2 % PERCENT (BEAKER) (test code = 432) BASOPHILS RELATIVE 0 % PERCENT (BEAKER) (test code = 437) NEUTROPHILS ABSOLUTE 2.48 K/ L 1.56-6.13 COUNT (BEAKER) (test code = 670) LYMPHOCYTES ABSOLUTE 1.60 K/ L 1.18-3.74 COUNT (BEAKER) (test code = 414) MONOCYTES ABSOLUTE 0.20 K/ L 0.24-0.36 L COUNT (BEAKER) (test code = 415) EOSINOPHILS ABSOLUTE 0.07 K/ L 0.04-0.36 COUNT (BEAKER) (test code = 416) BASOPHILS ABSOLUTE 0.01 K/ L 0.01-0.08 COUNT (BEAKER) (test code = 417) IMMATURE 0 % 0-1 GRANULOCYTES-RELATIVE PERCENT (BEAKER) (test code = 2801) POCT-GLUCOSE [id number] 08:26:00 Test Item Value Reference Range Interpretation Comments POC-GLUCOSE METER 105 mg/dL 70-110 TESTED AT [facility] 6720 (BEAKER) (test code = ELENO Forrester [facility] 1538) [address] BASIC METABOLIC [id number] 06:24:00 Test Item Value Reference Range Interpretation Comments SODIUM (BEAKER) 137 meq/L 136-145 (test code = 381) POTASSIUM (BEAKER) 3.7 meq/L 3.5-5.1 Specimen slightly (test code = 379) hemolyzed CHLORIDE (BEAKER) 95 meq/L 98-107 L (test code = 382) CO2 (BEAKER) (test 30 meq/L 22-29 H code = 355) BLOOD UREA NITROGEN 9 mg/dL 7-21 (BEAKER) (test code = 354) CREATININE (BEAKER) 0.90 mg/dL 0.57-1.25 Specimen slightly (test code = 358) hemolyzed GLUCOSE RANDOM 97 mg/dL 70-105 (BEAKER) (test code = 652) CALCIUM (BEAKER) 9.8 mg/dL 8.4-10.2 (test code = 697) EGFR (BEAKER) (test 62 mL/min/1.73 ESTIMA REENA GFR IS code = 1092) sq m NOT ACCURATE CREATININE CLEARANCE IN PREDICTING GLOMERULAR FILTRATION RATE . ESTIMATED GFR I S NOT APPLICABLE FOR DIALYSIS PATIEN TS. CBC (HEMOGRAM ONLY)2017-06-25 05:31:00 Test Item Value Reference Range Interpretation Comments WHITE BLOOD CELL COUNT (BEAKER) 5.1 K/ L 3.5-10.5 (test code = 775) RED BLOOD CELL COUNT (BEAKER) 4.47 M/ L 3.93-5.22 (test code = 761) HEMOGLOBIN (BEAKER) (test code = 11.4 GM/DL 11.2-15.7 410) HEMATOCRIT (BEAKER) (test code = 37.8 % 34.1-44.9 411) MEAN CORPUSCULAR VOLUME (BEAKER) 84.6 fL 79.4-94.8 (test code = 753) MEAN CORPUSCULAR HEMOGLOBIN 25.5 pg 25.6-32.2 L (BEAKER) (test code = 751) MEAN CORPUSCULAR HEMOGLOBIN CONC 30.2 GM/DL 32.2-35.5 L (BEAKER) (test code = 752) RED CELL DISTRIBUTION WIDTH 14.6 % 11.7-14.4 H (BEAKER) (test code = 412) PLATELET COUNT (BEAKER) (test 272 K/CU MM 150-450 code = 756) MEAN PLATELET VOLUME (BEAKER) 10.1 fL 9.4-12.3 (test code = 754) NUCLEATED RED BLOOD CELLS 0 /100 WBC 0-0 (BEAKER) (test code = 413) BASIC METABOLIC [id number] 05:47:00 Test Item Value Reference Range Interpretation Comments SODIUM (BEAKER) 138 meq/L 136-145 (test code = 381) POTASSIUM (BEAKER) 3.6 meq/L 3.5-5.1 (test code = 379) CHLORIDE (BEAKER) 94 meq/L 98-107 L (test code = 382) CO2 (BEAKER) (test 35 meq/L 22-29 H code = 355) BLOOD UREA NITROGEN 8 mg/dL 7-21 (BEAKER) (test code = 354) CREATININE (BEAKER) 0.98 mg/dL 0.57-1.25 (test code = 358) GLUCOSE RANDOM 102 mg/dL 70-105 (BEAKER) (test code = 652) CALCIUM (BEAKER) 9.0 mg/dL 8.4-10.2 (test code = 697) EGFR (BEAKER) (test 56 mL/min/1.73 ESTIMA REENA GFR IS code = 1092) sq m NOT ACCURATE CREATININE CLEARANCE IN PREDICTING GLOMERULAR FILTRATION RATE . ESTIMATED GFR I S NOT APPLICABLE FOR DIALYSIS PATIEN TS. CBC (HEMOGRAM ONLY)2017 04:48:00 Test Item Value Reference Range Interpretation Comments WHITE BLOOD CELL COUNT (BEAKER) 4.8 K/ L 3.5-10.5 (test code = 775) RED BLOOD CELL COUNT (BEAKER) 3.87 M/ L 3.93-5.22 L (test code = 761) HEMOGLOBIN (BEAKER) (test code = 10.0 GM/DL 11.2-15.7 L 410) HEMATOCRIT (BEAKER) (test code = 32.8 % 34.1-44.9 L 411) MEAN CORPUSCULAR VOLUME (BEAKER) 84.8 fL 79.4-94.8 (test code = 753) MEAN CORPUSCULAR HEMOGLOBIN 25.8 pg 25.6-32.2 (BEAKER) (test code = 751) MEAN CORPUSCULAR HEMOGLOBIN CONC 30.5 GM/DL 32.2-35.5 L (BEAKER) (test code = 752) RED CELL DISTRIBUTION WIDTH 14.7 % 11.7-14.4 H (BEAKER) (test code = 412) PLATELET COUNT (BEAKER) (test 240 K/CU MM 150-450 code = 756) MEAN PLATELET VOLUME (BEAKER) 9.8 fL 9.4-12.3 (test code = 754) NUCLEATED RED BLOOD CELLS 0 /100 WBC 0-0 (BEAKER) (test code = 413) [id number] 05:12:00 Test Item Value Reference Range Interpretation Comments PHOSPHORUS (BEAKER) (test code = 3.8 mg/dL 2.3-4.7 604) [id number] 05:12:00 Test Item Value Reference Range Interpretation Comments MAGNESIUM (BEAKER) (test code = 1.6 mg/dL 1.6-2.6 627) BASIC METABOLIC [id number] 05:12:00 Test Item Value Reference Range Interpretation Comments SODIUM (BEAKER) 141 meq/L 136-145 (test code = 381) POTASSIUM (BEAKER) 3.3 meq/L 3.5-5.1 L (test code = 379) CHLORIDE (BEAKER) 98 meq/L 98-107 (test code = 382) CO2 (BEAKER) (test 34 meq/L 22-29 H code = 355) BLOOD UREA NITROGEN 8 mg/dL 7-21 (BEAKER) (test code = 354) CREATININE (BEAKER) 0.88 mg/dL 0.57-1.25 (test code = 358) GLUCOSE RANDOM 93 mg/dL 70-105 (BEAKER) (test code = 652) CALCIUM (BEAKER) 8.7 mg/dL 8.4-10.2 (test code = 697) EGFR (BEAKER) (test 64 mL/min/1.73 ESTIMA REENA GFR IS code = 1092) sq m NOT ACCURATE CREATININE CLEARANCE IN PREDICTING GLOMERULAR FILTRATION RATE . ESTIMATED GFR I S NOT APPLICABLE FOR DIALYSIS PATIEN TS. HEPATIC FUNCTION [id number] 05:12:00 Test Item Value Reference Range Interpretation Comments TOTAL PROTEIN (BEAKER) (test code = 6.7 gm/dL 6.0-8.3 770) ALBUMIN (BEAKER) (test code = 1145) 3.2 g/dL 3.5-5.0 L BILIRUBIN TOTAL (BEAKER) (test code 0.3 mg/dL 0.2-1.2 = 377) BILIRUBIN DIRECT (BEAKER) (test 0.2 mg/dL 0.1-0.5 code = 706) ALKALINE PHOSPHATASE (BEAKER) (test 59 U/L 40-150 code = 346) AST (SGOT) (BEAKER) (test code = 19 U/L 5-34 353) ALT (SGPT) (BEAKER) (test code = 10 U/L 6-55 347) CBC W/PLT COUNT & AUTO [id number] 04:32:00 Test Item Value Reference Range Interpretation Comments WHITE BLOOD CELL COUNT (BEAKER) 4.6 K/ L 3.5-10.5 (test code = 775) RED BLOOD CELL COUNT (BEAKER) 3.55 M/ L 3.93-5.22 L (test code = 761) HEMOGLOBIN (BEAKER) (test code = 9.3 GM/DL 11.2-15.7 L 410) HEMATOCRIT (BEAKER) (test code = 30.4 % 34.1-44.9 L 411) MEAN CORPUSCULAR VOLUME (BEAKER) 85.6 fL 79.4-94.8 (test code = 753) MEAN CORPUSCULAR HEMOGLOBIN 26.2 pg 25.6-32.2 (BEAKER) (test code = 751) MEAN CORPUSCULAR HEMOGLOBIN CONC 30.6 GM/DL 32.2-35.5 L (BEAKER) (test code = 752) RED CELL DISTRIBUTION WIDTH 15.2 % 11.7-14.4 H (BEAKER) (test code = 412) PLATELET COUNT (BEAKER) (test 226 K/CU MM 150-450 code = 756) MEAN PLATELET VOLUME (BEAKER) 9.9 fL 9.4-12.3 (test code = 754) NUCLEATED RED BLOOD CELLS 0 /100 WBC 0-0 (BEAKER) (test code = 413) NEUTROPHILS RELATIVE PERCENT 59 % (BEAKER) (test code = 429) LYMPHOCYTES RELATIVE PERCENT 30 % (BEAKER) (test code = 430) MONOCYTES RELATIVE PERCENT 7 % (BEAKER) (test code = 431) EOSINOPHILS RELATIVE PERCENT 3 % (BEAKER) (test code = 432) BASOPHILS RELATIVE PERCENT 0 % (BEAKER) (test code = 437) NEUTROPHILS ABSOLUTE COUNT 2.71 K/ L 1.56-6.13 (BEAKER) (test code = 670) LYMPHOCYTES ABSOLUTE COUNT 1.40 K/ L 1.18-3.74 (BEAKER) (test code = 414) MONOCYTES ABSOLUTE COUNT (BEAKER) 0.33 K/ L 0.24-0.36 (test code = 415) EOSINOPHILS ABSOLUTE COUNT 0.14 K/ L 0.04-0.36 (BEAKER) (test code = 416) BASOPHILS ABSOLUTE COUNT (BEAKER) 0.02 K/ L 0.01-0.08 (test code = 417) IMMATURE GRANULOCYTES-RELATIVE 0 % 0-1 PERCENT (BEAKER) (test code = 2801) [id number] 09:47:00 Test Item Value Reference Range Interpretation Comments PHOSPHORUS (BEAKER) (test code = 3.7 mg/dL 2.3-4.7 604) [id number] 09:47:00 Test Item Value Reference Range Interpretation Comments MAGNESIUM (BEAKER) (test code = 1.8 mg/dL 1.6-2.6 627) BASIC METABOLIC [id number] 09:47:00 Test Item Value Reference Range Interpretation Comments SODIUM (BEAKER) 142 meq/L 136-145 (test code = 381) POTASSIUM (BEAKER) 3.3 meq/L 3.5-5.1 L (test code = 379) CHLORIDE (BEAKER) 99 meq/L 98-107 (test code = 382) CO2 (BEAKER) (test 33 meq/L 22-29 H code = 355) BLOOD UREA NITROGEN 9 mg/dL 7-21 (BEAKER) (test code = 354) CREATININE (BEAKER) 0.98 mg/dL 0.57-1.25 (test code = 358) GLUCOSE RANDOM 105 mg/dL 70-105 (BEAKER) (test code = 652) CALCIUM (BEAKER) 8.9 mg/dL 8.4-10.2 (test code = 697) EGFR (BEAKER) (test 57 mL/min/1.73 ESTIMA REENA GFR IS code = 1092) sq m NOT ACCURATE CREATININE CLEARANCE IN PREDICTING GLOMERULAR FILTRATION RATE . ESTIMATED GFR I S NOT APPLICABLE FOR DIALYSIS PATIEN TS. HEPATIC FUNCTION [id number] 09:47:00 Test Item Value Reference Range Interpretation Comments TOTAL PROTEIN (BEAKER) (test code = 7.3 gm/dL 6.0-8.3 770) ALBUMIN (BEAKER) (test code = 1145) 3.5 g/dL 3.5-5.0 BILIRUBIN TOTAL (BEAKER) (test code 0.3 mg/dL 0.2-1.2 = 377) BILIRUBIN DIRECT (BEAKER) (test 0.2 mg/dL 0.1-0.5 code = 706) ALKALINE PHOSPHATASE (BEAKER) (test 62 U/L 40-150 code = 346) AST (SGOT) (BEAKER) (test code = 19 U/L 5-34 353) ALT (SGPT) (BEAKER) (test code = 9 U/L 6-55 347) CBC W/PLT COUNT & AUTO [id number] 09:16:00 Test Item Value Reference Range Interpretation Comments WHITE BLOOD CELL COUNT (BEAKER) 5.9 K/ L 3.5-10.5 (test code = 775) RED BLOOD CELL COUNT (BEAKER) 3.85 M/ L 3.93-5.22 L (test code = 761) HEMOGLOBIN (BEAKER) (test code = 9.8 GM/DL 11.2-15.7 L 410) HEMATOCRIT (BEAKER) (test code = 33.0 % 34.1-44.9 L 411) MEAN CORPUSCULAR VOLUME (BEAKER) 85.7 fL 79.4-94.8 (test code = 753) MEAN CORPUSCULAR HEMOGLOBIN 25.5 pg 25.6-32.2 L (BEAKER) (test code = 751) MEAN CORPUSCULAR HEMOGLOBIN CONC 29.7 GM/DL 32.2-35.5 L (BEAKER) (test code = 752) RED CELL DISTRIBUTION WIDTH 15.5 % 11.7-14.4 H (BEAKER) (test code = 412) PLATELET COUNT (BEAKER) (test 247 K/CU MM 150-450 code = 756) MEAN PLATELET VOLUME (BEAKER) 10.0 fL 9.4-12.3 (test code = 754) NUCLEATED RED BLOOD CELLS 0 /100 WBC 0-0 (BEAKER) (test code = 413) NEUTROPHILS RELATIVE PERCENT 63 % (BEAKER) (test code = 429) LYMPHOCYTES RELATIVE PERCENT 27 % (BEAKER) (test code = 430) MONOCYTES RELATIVE PERCENT 7 % (BEAKER) (test code = 431) EOSINOPHILS RELATIVE PERCENT 3 % (BEAKER) (test code = 432) BASOPHILS RELATIVE PERCENT 1 % (BEAKER) (test code = 437) NEUTROPHILS ABSOLUTE COUNT 3.67 K/ L 1.56-6.13 (BEAKER) (test code = 670) LYMPHOCYTES ABSOLUTE COUNT 1.55 K/ L 1.18-3.74 (BEAKER) (test code = 414) MONOCYTES ABSOLUTE COUNT (BEAKER) 0.38 K/ L 0.24-0.36 H (test code = 415) EOSINOPHILS ABSOLUTE COUNT 0.19 K/ L 0.04-0.36 (BEAKER) (test code = 416) BASOPHILS ABSOLUTE COUNT (BEAKER) 0.05 K/ L 0.01-0.08 (test code = 417) IMMATURE GRANULOCYTES-RELATIVE 0 % 0-1 PERCENT (BEAKER) (test code = 2801) RAD, HAND, 2 VIEWS, [id number] 08:42:00Reason for exam:->history of left forearm/wrist fractureShould this be performed at the bedside?->Yesif both left wrist and forearm can be done portablyFINAL REPORT TECHNIQUE: Frontal and lateral radiographs of the left hand dated 06/19/2017 HISTORY: Left wrist fracture COMPARISON: None. FINDINGS:A splint is in place. There is anondisplaced fracture of the distal radius. No dislocation. Bones are osteopenic. There are degenerative changes of the first carpal metacarpal joint. No bone erosion or soft tissue nodule seen. No radiodense foreign body or subcutaneous emphysema. IMPRESSION:Nondisplaced fracture of the distal radius. Signed: Tamiko Kerneport Verified Date/Time: 06/19/2017 08:42:08 [facility] RAD, FOREARM, 2 VIEWS, [id number] 08:38:00Reason for exam:->history of left wrist/forearm fractureShould this be performed at the bedside?->Yesif both left wrist and forearm can be done portablyFINAL REPORT TECHNIQUE: Frontal and lateral radiographs of the left forearm dated 06/19/2017 HISTORY: Forearm fracture COMPARISON: None. FINDINGS:A splint is in place, obscuring fine detail. There is a nondisplaced fracture of the distal radius. No dislocation. Bones are osteopen ic. Degenerative changes are seen at the elbow joint. No bone erosion or soft tissue nodule seen. Noradiodense foreign body or subcutaneous emphysema. IMPRESSION:Nondisplaced fracture of the distal radius. Signed: Tamiko Kerneport Verified Date/Time: 06/19/2017 08:38:49 Reading Location:[facility] Radiology Reading Room POCT-GLUCOSE [id number] 17:06:00 Test Item Value Reference Range Interpretation Comments POC-GLUCOSE METER 102 mg/dL 70-110 TESTED AT [facility] ([facility]) (test code = [place] 1538) [address] T4, [id number] 14:34:00 Test Item Value Reference Range Interpretation Comments FREE T4 (AMANDA) (test code = 655) 1.13 ng/dL 0.70-1.48 [id number] 12:54:00 Test Item Value Reference Range Interpretation Comments PHOSPHORUS (BEAKER) (test code = 3.0 mg/dL 2.3-4.7 604) [id number] 12:54:00 Test Item Value Reference Range Interpretation Comments MAGNESIUM (BEAKER) (test code = 2.1 mg/dL 1.6-2.6 627) BASIC METABOLIC [id number] 12:54:00 Test Item Value Reference Range Interpretation Comments SODIUM (BEAKER) 142 meq/L 136-145 (test code = 381) POTASSIUM (BEAKER) 3.5 meq/L 3.5-5.1 (test code = 379) CHLORIDE (BEAKER) 102 meq/L 98-107 (test code = 382) CO2 (BEAKER) (test 28 meq/L 22-29 code = 355) BLOOD UREA NITROGEN 10 mg/dL 7-21 (BEAKER) (test code = 354) CREATININE (BEAKER) 0.87 mg/dL 0.57-1.25 (test code = 358) GLUCOSE RANDOM 89 mg/dL 70-105 (BEAKER) (test code = 652) CALCIUM (BEAKER) 9.1 mg/dL 8.4-10.2 (test code = 697) EGFR (BEAKER) (test 65 mL/min/1.73 ESTIMA REENA GFR IS code = 1092) sq m NOT ACCURATE CREATININE CLEARANCE IN PREDICTING GLOMERULAR FILTRATION RATE . ESTIMATED GFR I S NOT APPLICABLE FOR DIALYSIS PATIEN TS. HEPATIC FUNCTION [id number] 12:54:00 Test Item Value Reference Range Interpretation Comments TOTAL PROTEIN (BEAKER) (test code = 7.2 gm/dL 6.0-8.3 770) ALBUMIN (BEAKER) (test code = 1145) 3.5 g/dL 3.5-5.0 BILIRUBIN TOTAL (BEAKER) (test code 0.4 mg/dL 0.2-1.2 = 377) BILIRUBIN DIRECT (BEAKER) (test 0.2 mg/dL 0.1-0.5 code = 706) ALKALINE PHOSPHATASE (BEAKER) (test 60 U/L 40-150 code = 346) AST (SGOT) (BEAKER) (test code = 20 U/L 5-34 353) ALT (SGPT) ([facility]) (test code = 9 U/L 6-55 347) HEMOGLOBIN [id number] 12:08:00 Test Item Value Reference Range Interpretation Comments HEMOGLOBIN A1C ([facility]) (test code = 5.8 % 4.3-6.1 368) POCT-GLUCOSE [id number] 11:40:00 Test Item Value Reference Range Interpretation Comments POC-GLUCOSE METER 83 mg/dL 70-110 TESTED AT [place] [address] ([facility]) (test code = [place] [address] 1538) TSH/FREE T4 IF [id number] 11:38:00 Test Item Value Reference Range Interpretation Comments THYROID STIMULATING HORMONE 8.19 uIU/mL 0.35-4.94 H ([facility]) (test code = 772) SEDIMENTATION [id number] 11:20:00 Test Item Value Reference Range Interpretation Comments SEDIMENTATION RATE, ERYTHROCYTE 101 mm/HR 0-40 H ([facility]) (test code = 766) LIPID [id number] 08:58:00 Test Item Value Reference Range Interpretation Comments TRIGLYCERIDES ([facility] [facility]) (test code = 131 mg/dL 540) CHOLESTEROL ([facility]) (test code = 203 mg/dL 631) HDL CHOLESTEROL ([facility]) (test code 31 mg/dL = 976) LDL CHOLESTEROL CALCULATED ([facility]) 146 mg/dL (test code = 633) Triglyceride Reference Range: Low Risk <150 Borderline 150-199 High Risk 200-499 Very High Risk >=500Cholesterol Reference Range: Low Risk <200 Borderline 200-239 High Risk >240HDL Cholesterol Reference Range: Low Risk >=60 High Risk <40LDL Cholesterol Reference Range: Optimal <100 Near Optimal 100-129 Borderline 130-159 High 160-189 Very High >=190C-REACTIVE [id number] 08:58:00 Test Item Value Reference Range Interpretation Comments C-REACTIVE PROTEIN ([facility]) (test 11.13 mg/dL 0.00-0.50 H code = 676) POCT-GLUCOSE [id number] 07:54:00 Test Item Value Reference Range Interpretation Comments POC-GLUCOSE METER 93 mg/dL 70-110 TESTED AT [facility] 67[address] (BEAKER) (test code = [place] [address] 1538) CBC W/PLT COUNT & AUTO [id number] 06:52:00 Test Item Value Reference Range Interpretation Comments WHITE BLOOD CELL COUNT (BEAKER) 6.1 K/ L 3.5-10.5 (test code = 775) RED BLOOD CELL COUNT (BEAKER) 3.73 M/ L 3.93-5.22 L (test code = 761) HEMOGLOBIN (BEAKER) (test code = 9.6 GM/DL 11.2-15.7 L 410) HEMATOCRIT (BEAKER) (test code = 31.6 % 34.1-44.9 L 411) MEAN CORPUSCULAR VOLUME (BEAKER) 84.7 fL 79.4-94.8 (test code = 753) MEAN CORPUSCULAR HEMOGLOBIN 25.7 pg 25.6-32.2 (BEAKER) (test code = 751) MEAN CORPUSCULAR HEMOGLOBIN CONC 30.4 GM/DL 32.2-35.5 L (BEAKER) (test code = 752) RED CELL DISTRIBUTION WIDTH 15.2 % 11.7-14.4 H (BEAKER) (test code = 412) PLATELET COUNT (BEAKER) (test 241 K/CU MM 150-450 code = 756) MEAN PLATELET VOLUME (BEAKER) 10.3 fL 9.4-12.3 (test code = 754) NUCLEATED RED BLOOD CELLS 0 /100 WBC 0-0 (BEAKER) (test code = 413) NEUTROPHILS RELATIVE PERCENT 69 % (BEAKER) (test code = 429) LYMPHOCYTES RELATIVE PERCENT 21 % (BEAKER) (test code = 430) MONOCYTES RELATIVE PERCENT 6 % (BEAKER) (test code = 431) EOSINOPHILS RELATIVE PERCENT 3 % (BEAKER) (test code = 432) BASOPHILS RELATIVE PERCENT 0 % (BEAKER) (test code = 437) NEUTROPHILS ABSOLUTE COUNT 4.19 K/ L 1.56-6.13 (BEAKER) (test code = 670) LYMPHOCYTES ABSOLUTE COUNT 1.28 K/ L 1.18-3.74 (BEAKER) (test code = 414) MONOCYTES ABSOLUTE COUNT (BEAKER) 0.37 K/ L 0.24-0.36 H (test code = 415) EOSINOPHILS ABSOLUTE COUNT 0.20 K/ L 0.04-0.36 (BEAKER) (test code = 416) BASOPHILS ABSOLUTE COUNT (BEAKER) 0.02 K/ L 0.01-0.08 (test code = 417) IMMATURE GRANULOCYTES-RELATIVE 1 % 0-1 PERCENT (PRABHJOTAKER) (test code = 2801) [id number] 06:35:00 Test Item Value Reference Range Interpretation Comments PROTIME (AMANDA) (test code = 15.9 seconds 11.7-14.7 H 759) INR (AMANDA) (test code = 370) 1.3 <=5.9 PARTIAL THROMBOPLASTIN TIME 24.3 seconds 22.5-36.0 (BEAKER) (test code = 760) RECOMMENDED COUMADIN/WARFARIN INR THERAPY RANGESSTANDARD DOSE: 2.0 - 3.0 Includes: PROPHYLAXIS forvenous thrombosis, systemic embolization; TREATMENT for venous thrombosis and/or pulmonary embolus.HIGH RISK: Target INR is 2.5-3.5 for patients with mechanical heart valves.POCT-GLUCOSE [id number] 22:11:00 Test Item Value Reference Range Interpretation Comments POC-GLUCOSE METER 101 mg/dL 70-110 TESTED AT [facility] 67[address] ([facility]) (test code = [place] [facility] 1538) [address] [place], 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 Number of images: 2Fluoroscopic time: 25.8 seconds The films were submitted to PACS postprocedure. The radiologist was not present at the time of examination. An interpretation was not requested. The submitted images are nondiagnostic without real-time visualization. Please refer to the performing physician's dictation for all details regarding the procedure including the submitted images. The radiologist did not perform fluoroscopy. Signed: Ceci Blake MDReport Verified Date/Time: 06/13/2017 11:15:44 Reading Location: [facility] Radiology Reading Room URINALYSIS W/ REFLEX URINE [id number] 16:47:00 Test Item Value Reference Range Interpretation Comments COLOR (BEAKER) (test code = 470) Yellow CLARITY (BEAKER) (test code = 469) Clear SPECIFIC GRAVITY UA (BEAKER) (test 1.017 1.001-1.035 code = 468) PH UA (BEAKER) (test code = 467) 5.5 5.0-8.0 PROTEIN UA (BEAKER) (test code = 10 mg/dL Negative A 464) GLUCOSE UA (BEAKER) (test code = Negative Negative 365) KETONES UA (BEAKER) (test code = Negative Negative 371) BILIRUBIN UA (BEAKER) (test code = Negative Negative 462) BLOOD UA (BEAKER) (test code = 461) Negative Negative NITRITE UA (BEAKER) (test code = Positive Negative A 465) LEUKOCYTE ESTERASE UA (BEAKER) Large Negative A (test code = 466) UROBILINOGEN UA (BEAKER) (test code 0.2 mg/dL 0.2-1.0 = 463) RBC UA (BEAKER) (test code = 519) 1 /HPF WBC UA (BEAKER) (test code = 520) 49 /HPF BACTERIA (BEAKER) (test code = 517) Many MUCUS (BEAKER) (test code = 1574) Few SQUAMOUS EPITHELIAL (BEAKER) (test < /HPF code = 516) HYALINE CASTS (BEAKER) (test code = 2 /LPF 514) SOURCE(BEAKER) (test code = 2795) RAD, CHEST, 2 [id number] 12:51:00Reason for exam:->PRE OP TESTINGFINAL REPORT Chest, 2 views. Clinical History: PRE OP TESTING Comparison Study: None available Findings: The heart and lungs are within normal limits. The pleural spaces are clear. Degenerative changes are noted. There are postsurgical changes in the spine. A spinal stimulus device is seen. Impression: No active cardiopulmonary disease. Signed: Joaquin Lamepjoanna Verified Date/Time: 05/15/2017 12:51:37 Reading Location: [address] Radiology Reading Room BASIC METABOLIC [id number] 12:14:00 Test Item Value Reference Range Interpretation Comments SODIUM (BEAKER) 136 meq/L 136-145 (test code = 381) POTASSIUM (BEAKER) 3.7 meq/L 3.5-5.1 (test code = 379) CHLORIDE (BEAKER) 100 meq/L 98-107 (test code = 382) CO2 (BEAKER) (test 29 meq/L 22-29 code = 355) BLOOD UREA NITROGEN 14 mg/dL 7-21 (BEAKER) (test code = 354) CREATININE (BEAKER) 0.91 mg/dL 0.57-1.25 (test code = 358) GLUCOSE RANDOM 133 mg/dL 70-105 H (BEAKER) (test code = 652) CALCIUM (BEAKER) 9.3 mg/dL 8.4-10.2 (test code = 697) EGFR (BEAKER) (test 62 mL/min/1.73 ESTIMA REENA GFR IS code = 1092) sq m NOT ACCURATE CREATININE CLEARANCE IN PREDICTING GLOMERULAR FILTRATION RATE . ESTIMATED GFR I S NOT APPLICABLE FOR DIALYSIS PATIEN TS. PROTHROMBIN TIME/[id number] 11:26:00 Test Item Value Reference Range Interpretation Comments PROTIME (BEAKER) (test code = 15.0 seconds 11.7-14.7 H 759) INR (BEAKER) (test code = 370) 1.2 <=5.9 RECOMMENDED COUMADIN/WARFARIN INR THERAPY RANGESSTANDARD DOSE: 2.0 - 3.0 Includes: PROPHYLAXIS forvenous thrombosis, systemic embolization; TREATMENT for venous thrombosis and/or pulmonary embolus.HIGH RISK: Target INR is 2.5-3.5 for patients with mechanical heart valves.[id number] 11:26:00 Test Item Value Reference Range Interpretation Comments PARTIAL THROMBOPLASTIN TIME 38.1 seconds 22.5-36.0 H (BEAKER) (test code = 760) CBC W/PLT COUNT & AUTO [id number] 11:18:00 Test Item Value Reference Range Interpretation Comments WHITE BLOOD CELL COUNT (BEAKER) 9.2 K/ L 3.5-10.5 (test code = 775) RED BLOOD CELL COUNT (BEAKER) 4.40 M/ L 3.93-5.22 (test code = 761) HEMOGLOBIN (BEAKER) (test code = 11.3 GM/DL 11.2-15.7 410) HEMATOCRIT (BEAKER) (test code = 35.8 % 34.1-44.9 411) MEAN CORPUSCULAR VOLUME (BEAKER) 81.4 fL 79.4-94.8 (test code = 753) MEAN CORPUSCULAR HEMOGLOBIN 25.7 pg 25.6-32.2 (BEAKER) (test code = 751) MEAN CORPUSCULAR HEMOGLOBIN CONC 31.6 GM/DL 32.2-35.5 L (BEAKER) (test code = 752) RED CELL DISTRIBUTION WIDTH 16.2 % 11.7-14.4 H (BEAKER) (test code = 412) PLATELET COUNT (BEAKER) (test 278 K/CU MM 150-450 code = 756) MEAN PLATELET VOLUME (BEAKER) 9.8 fL 9.4-12.3 (test code = 754) NUCLEATED RED BLOOD CELLS 0 /100 WBC 0-0 (BEAKER) (test code = 413) NEUTROPHILS RELATIVE PERCENT 66 % (BEAKER) (test code = 429) LYMPHOCYTES RELATIVE PERCENT 26 % (BEAKER) (test code = 430) MONOCYTES RELATIVE PERCENT 6 % (BEAKER) (test code = 431) EOSINOPHILS RELATIVE PERCENT 1 % (BEAKER) (test code = 432) BASOPHILS RELATIVE PERCENT 1 % (BEAKER) (test code = 437) NEUTROPHILS ABSOLUTE COUNT 5.99 K/ L 1.56-6.13 (BEAKER) (test code = 670) LYMPHOCYTES ABSOLUTE COUNT 2.41 K/ L 1.18-3.74 (BEAKER) (test code = 414) MONOCYTES ABSOLUTE COUNT (BEAKER) 0.58 K/ L 0.24-0.36 H (test code = 415) EOSINOPHILS ABSOLUTE COUNT 0.09 K/ L 0.04-0.36 (BEAKER) (test code = 416) BASOPHILS ABSOLUTE COUNT (BEAKER) 0.05 K/ L 0.01-0.08 (test code = 417) IMMATURE GRANULOCYTES-RELATIVE 0 % 0-1 PERCENT (BEAKER) (test code = 2801) CT LUMBAR WOCLINICAL INDICATION: M51.36 Other intervertebral disc degeneration, lumbar regionMODALITY: Siemens GutCheck CT (Iterative dose reduction techniques are utilized.)TECHNIQUE: CT scan of the lumbar spine was performed without contrast. Axial images are obtained. Images are reformatted in coronal and sagittal planes. Bone and soft tissue windows are formatted.IMPRESSION:1. L1-S1 fusion with bilateral intra pedicular screws and posterior stabilization hardware. No complication identified. The interposed bone graft at the L5-S1 level has not yet incorporated into the endplates.2. 5 mm broad-based spondylotic discs narrow the bilateral lateral recesses at the L1-2 and L2-3 levels without central stenosis or neural foraminal narrowing.3. No acute fractures.FINDINGS:COMPARISON: noneGeneral observations: S-shaped scoliosis of the thoracolumbar spine. Bilateral intra pedicular screws at the L1, L2, L3, L4, L5, and S1 with posterior stabilization hardware. No evidence for loosening, hardware failure, or infection.The interposed bone graft at the L5-S1 level is not yet incorporated into the endplates.Surrounding soft tissues reveal no focal cystic nor solid soft tissue masses, adenopathy, or a localized inflammatory process. No aneurysms.FINDINGS AT SPECIFIC LEVELS:L5-S1: The interposed bonegraft is not yet incorporated into the endplates. Bilateral decompressive laminectomy. No definite focal disc protrusion or central stenosis.L4-L5: Bilateral decompressive laminectomy. No definite focal disc protrusion or central stenosis. L3-L4: Decompressive bilateral laminectomy. No definite focal disc protrusion or central stenosis.L2-L3: 5 mm broad-based spondylotic disc abuts the L3 nerve rootswith the L2-3 lateral recesses without central stenosis or neural foraminal narrowing.L1-L2: 5 mm broad-based spondylitic disc effaces ventral thecal sac and abuts the L2 nerve roots within the bilateral L1-2 lateral recesses without central stenosis or neural foraminal narrowing.PQRS 436: [id number] (For official use only.)
--- OUTSIDE RECORDS SUMMARY | 2020-04-12 18:52 | XMS REPORT | Summary of Care ---
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 Active Benign hypertension3 Active Cobalamin deficiency4 05/09/12 Active Constipation5 10/08/13 Active Depression(Confirmed) Active Depressive disorder6 Active Dermatitis7 04/24/12 Active Fibromyalgia(Confirmed) Active Flank pain8 12/15/10 Active Gastroesophageal reflux disease9 Active Ehpgqsqm26 10/08/13 Active Zqqjqdxlpso78 10/08/13 Active High density lipoprotein lwwepfeeba37 05/23/13 Active Hip pain13 03/14/10 Active Hip replacement(Confirmed) 06/08/10 Active ; Drukljkocschztuockdt27 Active Hypothyroidism(Confirmed) Active Fngmnkiamofndf06 Active Arthritis(Confirmed) Active Kidney stone16 04/06/10 Active Knee pain17 01/26/11 Active Left anterior fascicular block18 06/05/13 Active Low back pain19 03/14/10 Active Lumbar evogxftuskbxb60 03/14/10 Active Lumbar radiculopathy(Confirmed) Active Moderate depressed bipolar I 05/24/10 Active epswxmxl45 Depression(Confirmed) Active Morbid obesity(Confirmed) Active Tqkilzi26 05/05/13 Active Osteoarthritis of hip23 06/02/10 Active Osteoporosis(Confirmed) Active Pain in lower limb24 04/24/12 Active Raised antinuclear eifqicso43 05/23/13 Active Restless legs26 09/22/10 Active Right lower quadrant pain27 01/28/13 Active Sleep apnea28 09/22/10 Active Sleep apnea(Confirmed) Active Lmibemc42 06/21/10 Active Vitamin D ppawoeovfw07 01/26/10 Active Restless leg(Confirmed) Active 1Data migrated from [employer] on 09/07/14.2Data migrated from [employer] on 09/07/14.3Data migrated from [employer] on 09/07/14.4Data migrated from [employer] on 09/07/14.5Data migrated from [employer] on 09/07/14.6Data migrated from [employer] on 09/07/14.7Data migrated from [employer] on 09/07/14.8Data migrated from [employer] on 09/07/14.9Data migrated from [employer] on 09/07/14.10Data migrated from [employer] on 09/07/14.11Data migrated from [employer] on 09/07/14.12Data migrated from [employer] on 09/07/14.13Data migrated from [employer] on 09/07/14.14Data migrated from [employer] on 09/07/14.15Data migrated from [employer] on 09/07/14.16Data migrated from [employer] on 09/07/14.17Data migrated from [employer] on 09/07/14.18Data migrated from [employer] on 09/07/14.19Data migrated from [employer] on 09/07/14.20Data migrated from [employer] on 09/07/14.21Data migrated from [employer] on 09/07/14.22Data migrated from [employer] on 09/07/14.23Data migrated from [employer] on 09/07/14.24Data migrated from [employer] on 09/07/14.25Data migrated from [employer] on 09/07/14.26Data migrated from [employer] on 09/07/14.27Data migrated from [employer] on 09/07/14.28Data migrated from [employer] on 09/07/14.29Data migrated from [employer] on 09/07/14.30Data migrated from [employer] on 09/07/14. Allergies, Adverse Reactions, Alerts Substance Reaction Severity Status sulfa drugs1 hives Active acetaminophen-codeine Active morphine Active codeine2 N/V Active 1Data migrated from [employer] on 11/05/14. Originally documented as SULFA.2 Data migrated from [employer] on 06/09/15. Originally documented as CODEINE. Medications pramipexole 0.5 mg oral tablet = 1 tab, PO, Bedtime, # 90 tab, 0 Refill(s), Pharmacy: [facility] #[id number], 160.02, cm, 01/20/19 14:52:00 CDT, Height, 99.602, kg, 12/05/18 14:04:00 CDT, Weight Start Date: 03/09/20 Status: Ordered Results No data available for this section Immunizations Given and Recorded Vaccine Date Status Refusal Reason influenza virus vaccine, inactivated1 01/20/19 Given influenza virus vaccine, inactivated2 03/07/18 Given influenza virus vaccine, inactivated 11/23/16 Recorded influenza virus vaccine, inactivated 02/16/16 Given pneumococcal 23-valent vaccine 02/16/16 Given 1Result Comment: Patient was stable before and after the vaccine was given. Patient waited 15 minutes in waiting area and did not show any adverse reactions.2Result Comment: Patient was stable before and after the vaccine was given. Patient waited 15 minutes in waiting area and did not show any adverse reactions. Procedures Procedure Date Related Diagnosis Body Site Status Implantation of neurostimulator in 12/11/17 Completed spine Removal of neurostimulator electrode 12/01/17 Completed from spinal nerve root Epidurogram 02/03/16 Completed Implantation of neurostimulator in 2014 Completed spine Fusion of lumbar spine 2013 Compl eted Hip replacement1 2010 Completed Hip replacement2 2004 Completed Hysterectomy3 1985 Completed Epidural steroid injection4 Completed Insertion of infusion pump5 Completed Operation6 Completed 1complete left hip replacement in 23592anbxkwqqgf hip replacement right 19854X6 in 38066Kdubsuei pump - 12/11/2017 (Dr. Jerome Arias)6Removal of morphine pump Social History Social History Type Response Alcohol Never Employment/School Highest education level: [employer].1 Exercise Exercise duration: 0. Sexual Sexually active: No. Substance Abuse Use: None. Smoking Status Never smoker; Lives with familia eone who smokes; Cigarette Smoking Last 365 Days No; Reg Smoking Cessation Counseling No entered on: 11/03/19 1married Assessment and Plan No data available for this section
--- OUTSIDE RECORDS SUMMARY | 2020-04-12 18:52 | XMS REPORT | Summary of Care ---
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 Active Benign hypertension3 Active Cobalamin deficiency4 05/09/12 Active Constipation5 10/08/13 Active Depression(Confirmed) Active Depressive disorder6 Active Dermatitis7 04/24/12 Active Fibromyalgia(Confirmed) Active Flank pain8 12/15/10 Active Gastroesophageal reflux disease9 Active Qwbrbxsd47 10/08/13 Active Kddlcvvczwu10 10/08/13 Active High density lipoprotein boqryngmnv24 05/23/13 Active Hip pain13 03/14/10 Active Hip replacement(Confirmed) 06/08/10 Active ; Oktlmczjsrmoidrjcgdv61 Active Hypothyroidism(Confirmed) Active Corlrmaknsbblu56 Active Arthritis(Confirmed) Active Kidney stone16 04/06/10 Active Knee pain17 01/26/11 Active Left anterior fascicular block18 06/05/13 Active Low back pain19 03/14/10 Active Lumbar wpihlkiqmayzi57 03/14/10 Active Lumbar radiculopathy(Confirmed) Active Moderate depressed bipolar I 05/24/10 Active mrheiedg45 Depression(Confirmed) Active Morbid obesity(Confirmed) Active Iqpecaf42 05/05/13 Active Osteoarthritis of hip23 06/02/10 Active Osteoporosis(Confirmed) Active Pain in lower limb24 04/24/12 Active Raised antinuclear 05/23/13 Active Restless legs26 09/22/10 Active Right lower quadrant pain27 01/28/13 Active Sleep apnea28 09/22/10 Active Sleep apnea(Confirmed) Active Irwuwph84 06/21/10 Active Vitamin D bshurdnpgi23 01/26/10 Active Restless leg(Confirmed) Active 1Data migrated [...] from [employer] on 09/07/14.28Data migrated from [employer] on 09/07/14.29Data migrated from [employer] on 09/07/14.30Data migrated from [employer] on 09/07/14. Allergies, Adverse Reactions, Alerts Substance Reaction Severity Status sulfa drugs1 hives Active codeine2 N/V Active morphine Active acetaminophen-codeine Active 1Data migrated from [employer] on 11/05/14. Originally documented as SULFA.2 Data migrated from [employer] on 06/09/15. Originally documented as CODEINE. Medications betamethasone-clotrimazole topical 0.05%-1% cream See Instructions, APPLY TO THE AFFECTED AREAS TWICE DAILY DIRECTED BY PHYSICIAN., # 45 gm, 1 Refill(s), Pharmacy: [facility] #[id number], 160.02, cm, 01/20/19 14:52:00 CDT, Height, 99.602, kg, 12/05/18 14:04:00 CDT, Weight Start Date: 01/20/20 Stop Date: 01/20/20 Status: CompletedVitamin D2 50,000 intl units oral capsule 50,000 IntlUnit = 1 cap, PO, qWeek, # 12 cap, 1 Refill(s), Pharmacy: [facility] #[id number], 160.02, cm, 01/20/19 14:52:00 CDT, Height, 99.602, kg, 12/05/18 14:04:00 CDT, Weight Start Date: 01/20/20 Status: Ordered Results No data available for [...] Operation6 Completed 1complete left hip replacement in 24691nkeyeeevnw hip replacement right 71827 72240O5 in 03894Wrwggznr pump - 12/11/2017 (Dr. Jerome Arias)6Removal of [...]
--- OUTSIDE RECORDS SUMMARY | 2020-04-12 18:52 | XMS REPORT | Summary of Care ---
:1950 Author Organization [facility] Primary Care [facility] Address [address], [address] [place] [address]- Care Team Providers Name Role Phone Maty Kim Primary Care Physician Encounter HQ Jenn_jose(FIN) [id number] Date(s): 03/16/20 - 03/17/20 [facility] Primary Care 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 Benign hypertension3 Active Cobalamin deficiency4 05/09/12 Active Constipation5 10/08/13 Active Depression(Confirmed) Active Depressive disorder6 Active Dermatitis7 04/24/12 Active Fibromyalgia(Confirmed) Active Flank pain8 12/15/10 Active Gastroesophageal reflux disease9 Active Afagfhbg40 10/08/13 Active Gdpfodncnlj50 10/08/13 Active High density lipoprotein iulizzlxch72 05/23/13 Active Hip pain13 03/14/10 Active Hip replacement(Confirmed) 06/08/10 Active ; Cncdecjpzsllmcmjeeem99 Active Hypothyroidism(Confirmed) Active Kwejttiqxebatf45 Active Arthritis(Confirmed) Active Kidney stone16 04/06/10 Active Knee pain17 01/26/11 Active Left anterior fascicular block18 06/05/13 Active Low back pain19 03/14/10 Active Lumbar ggtqxvysjxhbl68 03/14/10 Active Lumbar radiculopathy(Confirmed) Active Moderate depressed bipolar I 05/24/10 Active fquxhgkj73 Depression(Confirmed) Active Morbid obesity(Confirmed) Active Jkbbkrd23 05/05/13 Active Osteoarthritis of hip23 06/02/10 Active Osteoporosis(Confirmed) Active Pain in lower limb24 04/24/12 Active Raised antinuclear gijxcesz52 05/23/13 Active Restless legs26 09/22/10 Active Right lower quadrant pain27 01/28/13 Active Sleep apnea28 09/22/10 Active Sleep apnea(Confirmed) Active Rzpygqk63 06/21/10 Active Vitamin D hlucfucuyz96 01/26/10 Active Restless leg(Confirmed) Active 1Data migrated [...] from [employer] on 09/07/14.28Data migrated from [employer] on 09/07/14.29Data migrated from [employer] on 09/07/14.30Data migrated from [employer] on 09/07/14. Allergies, Adverse Reactions, Alerts Substance Reaction Severity Status sulfa drugs1 hives Active acetaminophen-codeine Active morphine Active codeine2 N/V Active 1Data migrated from [employer] on 11/05/14. Originally documented as SULFA.2 Data migrated from [employer] on 06/09/15. Originally documented as CODEINE. Medications betamethasone-clotrimazole topical 0.05%-1% cream See Instructions, APPLY TO THE AFFECTED AREAS TWICE DAILY DIRECTED BY PHYSICIAN., # 45 gm, 0 Refill(s), Pharmacy: [facility], 160.02, cm, 01/20/19 14:52:00 CDT, Height, 99.602, kg, 12/05/18 14:04:00 CDT, Weight Start Date: 03/16/20 Stop Date: 03/16/21 Status: Orderedlevothyroxine 112 mcg (0.112 mg) oral tablet = 1 tab, PO, Daily, # 90 tab, 1 Refill(s), Pharmacy: [facility], 160.02, cm, 01/20/19 14:52:00 CDT, Height, 99.602, kg, 12/05/18 14:04:00 CDT, Weight Start Date: 03/16/20 Status: Orderedolmesartan 20 mg oral tablet 20 mg = 1 tab, PO, Daily, # 90 tab, 0 Refill(s), Pharmacy: [facility], 160.02, cm, 01/20/19 14:52:00 CDT, Height, 99.602, kg, 12/05/18 14:04:00 CDT, Weight Start Date: 03/16/20 Status: Ordered Results No data available for [...] Operation6 Completed 1complete left hip replacement in 607[address]vgutkrcawc hip replacement right 19854X6 in 59573Okhedbwi pump - 12/11/2017 (Dr. Jerome Arias)6Removal of [...]
[2020-04-12 19:55] LABS: Urine Blood TRACE (NEG); Urine Glucose NEGATIVE (NEG); Urine Protein NEGATIVE (NEG); Urine pH 5.5 (5.0-7.0)
--- NOTE | 2020-04-12 20:00 | RAD REPORT ---
EXAM DESCRIPTION: CTSpine Lumbar Wo Con04/12/2020 7:32 pm CLINICAL HISTORY: Back injury with back pain and radiculopathy status post fall COMPARISON: None TECHNIQUE: Computed axial tomography lumbar spine was obtained with coronal and sagittal reconstruct ion. All CT scans are performed using dose optimization technique as appropriate and may include automated exposure control or mA/KV adjustment according to patient size. FINDINGS: Postsurgical changes involve spine. Neurostimulator device in place Bony destruction involves the inferior aspect of the L3 vertebral body and superior aspect of the L4 vertebral body. Vacuum phenomena is present. Mild posterior subluxation L3 on L4. Slight anterior subluxation L5 on S1 Posterior bony fusion involves the lower lumbar spine. No acute fracture visualized. Diffuse spondylosis IMPRESSION: Bony destruction involves the inferior aspect of the L3 vertebral body and superior aspe ct of the L4 vertebral body. This may be secondary to an infectious/ inflammatory process. The age is indeterminate. Comparison with prior imaging would be helpful. Postsurgical changes involve the spine No acute fracture
--- NOTE | 2020-04-12 20:17 | RAD REPORT ---
EXAM DESCRIPTION: CT - Pelvis Wo Cont - 04/12/2020 7:32 pm CLINICAL HISTORY: Pelvic pain status post fall COMPARISON: None. TECHNIQUE: Computed axial tomography of the pelvis was obtained. Coronal and sagittal reconstruction performed All CT scans are performed using dose optimization technique as appropriate and may include automated exposure control or mA/KV adjustment according to patient size. FINDINGS: Bilateral hip arthroplasties have been performed. No fracture or dislocation. No evidence of loosening of the prostheses. Muscles are normal size and density. 2.5 centimeter lipoma anterior compartment left thigh IMPRESSION: No fracture seen
--- NOTE | 2020-04-12 20:21 | RAD REPORT ---
EXAM DESCRIPTION: Simone Single View04/12/2020 8:05 pm CLINICAL HISTORY: Hypoxemia COMPARISON: none FINDINGS: The lungs appear clear of acute infiltrate. The heart is normal size. Scoliosis is presen t IMPRESSION: No acute abnormalities displayed
[2020-04-12 20:27] LABS: Absolute Lymphocytes (CBC) 1.7 K/uL (0.7-4.9); Basophils % 0.5 % (0-1.3); Lymphocytes % 26.2 % (15.3-44.8); MPV 8.2 fL (7.6-11.3); RBC Red Blood Cell Count 4.32 M/uL (3.86-4.86)
--- NOTE | 2020-04-12 20:31 | RAD REPORT ---
EXAM DESCRIPTION: RAD - Hip Right 2 View - 04/12/2020 8:04 pm CLINICAL HISTORY: Right hip pain FINDINGS: No fracture or dislocation is seen. Right hip prosthesis in good position. Osteoporosis
--- NOTE | 2020-04-12 20:32 | RAD REPORT ---
EXAM DESCRIPTION: RAD - Femur Right - 04/12/2020 8:04 pm CLINICAL HISTORY: Leg pain FINDINGS: No fracture is seen. Osteoporosis. Small knee joint effusion
--- NOTE | 2020-04-12 20:33 | RAD REPORT ---
EXAM DESCRIPTION: RAD - Shoulder Left 2 View - 04/12/2020 8:04 pm CLINICAL HISTORY: Left shoulder pain status post fall FINDINGS: No fracture or dislocation is seen.
--- NOTE | 2020-04-12 20:34 | RAD REPORT ---
EXAM DESCRIPTION: RAD - Humerus Left - 04/12/2020 8:04 pm CLINICAL HISTORY: Left arm pain status post fall FINDINGS: No fracture is seen
--- NOTE | 2020-04-12 20:38 | RAD REPORT ---
EXAM DESCRIPTION: CT - Head Brain Wo Cont - 04/12/2020 8:19 pm CLINICAL HISTORY: Head injury status post fall. Weakness COMPARISON: None TECHNIQUE: Computed axial tomography of the head was obtained. IV contrast was not requested. All CT scans are performed using dose optimization technique as appropriate and may include automated exposure control or mA/KV adjustment according to patient size. FINDINGS: An intracranial bleed is not seen . The ventricles are normal in caliber. No extra-axial fluid collection is noted. Fluid within the sinuses/ mastoids is not seen. IMPRESSION: No acute intracranial abnormality is seen
[2020-04-12 20:55] LABS: Urine Bacteria <20 /HPF (<20); Urine RBC <5 /HPF (NONE SEEN)
[2020-04-12 20:57] LABS: C-Reactive Protein 50.7 mg/L (<3.00); Ferritin 25.8 ng/mL (8-388); Potassium 4.1 mmol/L (3.5-5.1)
[2020-04-12] MEDS ORDERED: NA CHLORIDE 0.9% 500 ML ONE (21:04)
[2020-04-12] MEDS ORDERED: FENTANYL CITR 100 MCG/2 ML ONE (21:37)
[2020-04-12 22:24] LABS: SARS-COV-2 RT PCR NEGATIVE (NEGATIVE)
--- NOTE | 2020-04-13 01:01 | EDPHYS ---
Physician Documentation [facility] Name: Emma Rico Age: 69 yrs Sex: Female : 1950 Arrival Date: 04/12/2020 Time: 18:55 Bed 13 Private MD: ED Physician Kin Hdz HPI: 04/12 19:36 This 69 yrs old Female presents to ER via EMS with complaints of weakness, rn fall. 19:36 Reports a few days of generalized weakness, falls, right hip and leg pain, left rn shoulder and arm pain, low back pain. Thought had UTI, took 5 days of levaquin. Denies fever/sob/cough/abd pain/vomiting/diarrhea. Reports unable to bear weight due to pain from fall and right leg pain.. Onset: The symptoms/episode began/occurred 3 day(s) ago. Severity of symptoms: At their worst the symptoms were moderate in the emergency department the symptoms are unchanged. The patient has not experienced similar symptoms in the past. The patient has not recently seen a physician. Historical: - Allergies: 19:13 Codeine; zb 19:13 Morphine; zb 19:13 Sulfa (Sulfonamide Antibiotics); zb - Home Meds: 19:13 levothyroxine 112 mcg tab 1 tab [Active]; pregabalin Oral 225 mg [Active]; losartan 100 zb mg oral tab 1 tab once daily [Active]; olmesartan oral oral [Active]; Lasix 20 mg Oral tab [Active]; pramipexole 0.5 mg oral tab [Active]; Clotrimazole-Betamethasone Topical [Active]; Decara 50,000 unit oral cap [Active]; - PMHx: 20:24 Depression; Hypothyroidism; Chronic pain; Hypertension; zb - PSHx: 19:13 Hysterectomy; right hip replacement; left hip replacement; back surgery; zb - Immunization history:: Adult Immunizations up to date. - Social history:: Smoking status: unknown. - Family history:: not pertinent. - Hospitalizations: : No recent hospitalization is reported. ROS: 19:36 Constitutional: Negative for fever, chills, and weight loss, Eyes: Negative for injury, rn pain, redness, and discharge, Neck: Negative for injury, pain, and swelling, Cardiovascular: Negative for chest pain, palpitations, and edema, Respiratory: Negative for shortness of breath, cough, wheezing, and pleuritic chest pain, Abdomen/GI: Negative for abdominal pain, nausea, vomiting, diarrhea, and constipation, Back: + low back pain : Negative for injury, bleeding, discharge, and swelling, MS/Extremity: + pain and injury to left shoulder and right leg Skin: Negative for injury, rash, and discoloration, Neuro: Negative for headache, numbness, tingling, and seizure. Exam: 19:36 Constitutional: This is a well developed, well nourished patient who is awake, alert, rn and in no acute distress. Head/Face: Normocephalic, atraumatic. ENT: dry MM Cardiovascular: Regular rate and rhythm. No pulse deficits. Respiratory: No increased work of breathing, no retractions or nasal flaring. Abdomen/GI: soft, non-tender Skin: Warm, dry MS/ Extremity: Pulses equal, no cyanosis. + painful ROM right hip and thigh, + painful ROM left shoulder and tenderness left mid-humerus. Neuro: Awake and alert, GCS 15, oriented to person, place, time, and situation. Motor strength 4/5 in all extremities. Sensory grossly intact Vital Signs: 18:55 BP 92 / 69; Pulse 80; Resp 16; Temp 98.3; Pulse Ox 95% on R/A; Weight 102.06 kg; Height zb 5 ft. 3 in. (160.02 cm); Pain 10/10; 20:59 BP 92 / 53; Pulse 65; Resp 16; Pulse Ox 96% on R/A; zb 21:46 BP 113 / 74; Pulse 64; Resp 16; Pulse Ox 96% on R/A; zb 22:30 BP 104 / 71; Pulse 83; Resp 18; Pulse Ox 97% on R/A; zb 23:22 BP 122 / 73; Pulse 70; Resp 14; Pulse Ox 94% on R/A; zb 18:55 Body Mass Index 39.86 (102.06 kg, 160.02 cm) zb MDM: 19:02 Patient medically screened. rn 23:37 ED course: Will attempt to transfer given spinal findings, since no spine consult here, rn but so far all hospitals at capacity. Spinal findings more likely chronic given 2 previous back surgeries, chronic back pain, and pain pump, but given no previous studies to compare, will have to rule out infectious/inflammatory etiology given recent falls and subjective worsening of back/leg pain.. 04/13 00:59 Differential Diagnosis spinal infection vs inflammatory process, chronic back pain, rn radiculopathy, humerus fracture, femur fracture, kidney injury, dehydration.. Data reviewed: vital signs, nurses notes, lab test result(s), radiologic studies, CT scan, plain films, and as a result, I will admit patient. Counseling: I had a detailed discussion with the patient and/or guardian regarding: the historical points, exam findings, and any diagnostic results supporting the discharge/admit diagnosis, lab results, radiology results, the need for further work-up and treatment in the hospital, the need to transfer to another facility, [facility] does not immediately have the required specialist. Response to treatment: the patient's symptoms have mildly improved after treatment, and as a result, I will admit patient. 02:56 ED course: Accepted for transfer to [facility] without report, by spine.. rn 04/12 19:13 Order name: CBC with Diff rn 04/12 19:13 Order name: Basic Metabolic Panel rn 04/12 19:13 Order name: Urine Culture rn 04/12 19:13 Order name: Urine Microscopic Only rn 04/12 19:13 Order name: COVID-19 rn 04/12 19:13 Order name: Flu rn 04/12 19:13 Order name: Blood Culture Adult (2) rn 04/12 19:13 Order name: Procalcitonin rn 04/12 19:13 Order name: Lactate rn 04/12 19:13 Order name: Ferritin; Complete Time: 21:00 rn 04/12 19:13 Order name: CRP; Complete Time: 21:00 rn 04/12 19:14 Order name: CBC with Automated Diff; Complete Time: 20:44 EDMS 04/12 19:14 Order name: Basic Metabolic Panel; Complete Time: 21:00 EDMS 04/12 19:14 Order name: Urine Culture EDMS 04/12 19:13 Order name: XRAY Humerus LEFT; Complete Time: 20:44 rn 04/12 19:13 Order name: XRAY Hip RIGHT 2 view; Complete Time: 20:44 rn 04/12 19:13 Order name: XRAY Femur RIGHT; Complete Time: 20:44 rn 04/12 19:13 Order name: XRAY Shoulder LEFT 2 view; Complete Time: 20:44 rn 04/12 19:13 Order name: XRAY Chest (1 view); Complete Time: 20:23 rn 04/12 19:13 Order name: CT Lumbar Spine Wo Con; Complete Time: 20:23 rn 04/12 19:13 Order name: CT Pelvis wo Cont; Complete Time: 20:23 rn 04/12 19:14 Order name: Urine Microscopic Only; Complete Time: 21:00 EDMS 04/12 19:14 Order name: Blood Culture EDMS 04/12 19:14 Order name: Procalcitonin; Complete Time: 21:17 EDMS 04/12 19:14 Order name: Lactate; Complete Time: 21:17 EDMS 04/12 19:40 Order name: CT Head Brain wo Cont; Complete Time: 20:44 rn 04/12 19:50 Order name: Urine Dipstick--Ancillary (enter results); Complete Time: 19:55 tt3 04/12 22:25 Order name: COVID-19/FLU A+B; Complete Time: 22:41 EDMS 04/12 19:13 Order name: IV Start; Complete Time: 20:58 rn 04/12 19:13 Order name: Urine Dipstick-Ancillary (obtain specimen); Complete Time: 20:23 rn Administered Medications: 04/12 20:58 Drug: NS 0.9% 500 ml Route: IV; Rate: bolus; Site: right antecubital; zb 21:35 Drug: fentaNYL (PF) 25 mcg Route: IVP; Site: right antecubital; zb 22:30 Follow up: Response: No adverse reaction; Pain is unchanged, physician notified; RASS: zb Alert and Calm (0) 22:40 Drug: fentaNYL (PF) 25 mcg Route: IVP; Site: right antecubital; zb 23:18 Follow up: Response: No adverse reaction; RASS: Alert and Calm (0) zb 04/13 04:00 Drug: fentaNYL (PF) 25 mcg Route: IVP; Site: right antecubital; ll2 04:00 Follow up: Response: Medication administered at discharge. ll2 Disposition: 04/13/20 01:01 Transfer ordered to [facility] [place]. 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 - Reason for transfer: Higher level of care. - Accepting physician is Dr. Swanson. - Condition is Stable. - Problem is new. - Symptoms have improved. Signatures: Dispatcher [employer] [facility] Kin Hdz MD MD rn Linscombe, Lacie RN RN ll2 Cornelia Rangel, RN RN zb Corrections: (The following items were deleted from the chart) 04/12 21:28 19:14 CORONAVIRUS ordered. [facility] :28 19:14 Influenza Screen (A ordered. [facility] 04/13 02:57 01:01 04/13/2020 01:01 Transfer ordered to Other Acute Care Facility. 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 Reason for transfer: Higher level of care. Accepting physician is . Condition is Stable. Problem is new. Symptoms have improved. rn 04:02 02:57 04/13/2020 01:01 Transfer ordered to [facility] [place]. 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 Reason for transfer: Higher level of care. Accepting physician is Dr. Swanson. Condition is Stable. Problem is new. Symptoms have improved. rn
--- NOTE | 2020-04-13 01:01 | ER ---
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 hit hip and back. on aspirin. history zb of chronic back pain. chronic left arm pain, right leg pain. rates pain 10/10. pt was found in recliner. Coronavirus screen: At this time, the client does not indicate any symptoms associated with coronavirus-19. Ebola Screen: No symptoms or risks identified at this time. Initial Sepsis Screen: Does the patient meet any 2 criteria? No. Patient's initial sepsis screen is negative. Does the patient have a suspected source of infection? No. Patient's initial sepsis screen is negative. Risk Assessment: Do you want to hurt yourself or someone else? Patient reports no desire to harm self or others. Onset of symptoms was April 10, 2020. 18:55 Method Of Arrival: EMS: [facility] zb 18:55 Acuity: LENNY 3 zb Triage Assessment: 18:55 General: Appears in no apparent distress. uncomfortable, Behavior is cooperative, zb crying, fussy. Pain: Complains of pain in left arm, right arm, lower back Pain currently is 10 out of 10 on a pain scale. Quality of pain is described as sharp, stabbing, Aggravated by increased activity, repositioning, weight bearing. EENT: Neuro: Level of Consciousness is awake, alert, obeys commands, Oriented to person, place, time, situation. Cardiovascular: Capillary refill < 3 seconds in bilateral fingers Patient's skin is warm and dry. Respiratory: Airway is patent Respiratory effort is even, unlabored, Respiratory pattern is regular, symmetrical. GI: Abdomen is obese. : No signs and/or symptoms were reported regarding the genitourinary system. Derm: Skin is intact, is healthy with good turgor, Skin is normal, Skin temperature is warm. Musculoskeletal: Capillary refill < 3 seconds, in bilateral fingers. Range of motion: intact in all extremities. Historical: - Allergies: 19:13 Codeine; zb 19:13 Morphine; zb 19:13 Sulfa (Sulfonamide Antibiotics); zb - Home Meds: 19:13 levothyroxine 112 mcg tab 1 tab [Active]; pregabalin Oral 225 mg [Active]; losartan 100 zb mg oral tab 1 tab once daily [Active]; olmesartan oral oral [Active]; Lasix 20 mg Oral tab [Active]; pramipexole 0.5 mg oral tab [Active]; Clotrimazole-Betamethasone Topical [Active]; Decara 50,000 unit oral cap [Active]; - PMHx: 20:24 Depression; Hypothyroidism; Chronic pain; Hypertension; zb - PSHx: 19:13 Hysterectomy; right hip replacement; left hip replacement; back surgery; zb - Immunization history:: Adult Immunizations up to date. - Social history:: Smoking status: unknown. - Family history:: not pertinent. - Hospitalizations: : No recent hospitalization is reported. Screenin:55 Abuse screen: Denies threats or abuse. Denies injuries from another. Nutritional zb screening: No deficits noted. Tuberculosis screening: No symptoms or risk factors identified. Fall Risk Fall in past 12 months (25 points). No secondary diagnosis (0 pts). IV access (20 points). Ambulatory Aid- Crutches/Cane/Walker (15 pts). Gait- Weak (10 pts.). Mental Status- Oriented to own ability (0 pts). Total Chavez Fall Scale indicates High Risk Score (45 or more points). Fall prevention measures have been instituted. Side Rails Up X 2 Placed Close to Nursing Station Frequent Obs/Assessments Occuring Family Present and informed to notify staff if the need to leave the bedside As available patient and family educated on Fall Prevention Program and Strategies. Assessment: 20:05 Reassessment: pt in CT. zb 21:07 Reassessment: Patient appears in no apparent distress at this time. Patient and/or zb family updated on plan of care and expected duration. Pain level reassessed. Patient is alert, oriented x 3, equal unlabored respirations, skin warm/dry/pink. family at bedside ECP discussing POC. 21:46 Reassessment: pt resting. lights dimmed. family at bedside. zb 22:29 Reassessment: Patient appears in no apparent distress at this time. Patient and/or zb family updated on plan of care and expected duration. Pain level reassessed. Patient is alert, oriented x 3, equal unlabored respirations, skin warm/dry/pink. pt resting in bed. lights remain dimmed. 23:21 Reassessment: Patient appears in no apparent distress at this time. Patient and/or zb family updated on plan of care and expected duration. Pain level reassessed. Patient is alert, oriented x 3, equal unlabored respirations, skin warm/dry/pink. pt remains resting in bed. states pain is decrease when not moving but continues to hurt. family at bedside. Patient states symptoms have improved. 04/13 00:30 Reassessment: Patient and/or family updated on plan of care and expected duration. Pain ll2 level reassessed. Patient is alert, oriented x 3, equal unlabored respirations, skin warm/dry/pink. 02:18 Reassessment: Patient and/or family updated on plan of care and expected duration. Pain ll2 level reassessed. Patient is alert, oriented x 3, equal unlabored respirations, skin warm/dry/pink. family to bedside with patient. 03:15 Reassessment: Patient and/or family updated on plan of care and expected duration. Pain ll2 level reassessed. Patient is alert, oriented x 3, equal unlabored respirations, skin warm/dry/pink. report given to DAVID Dodd. 04:01 Reassessment: Patient and/or family updated on plan of care and expected duration. Pain ll2 level reassessed. report given to [facility]. Vital Signs: 04/12 18:55 BP 92 / 69; Pulse 80; Resp 16; Temp 98.3; Pulse Ox 95% on R/A; Weight 102.06 kg; Height zb 5 ft. 3 in. (160.02 cm); Pain 10/10; 20:59 BP 92 / 53; Pulse 65; Resp 16; Pulse Ox 96% on R/A; zb 21:46 BP 113 / 74; Pulse 64; Resp 16; Pulse Ox 96% on R/A; zb 22:30 BP 104 / 71; Pulse 83; Resp 18; Pulse Ox 97% on R/A; zb 23:22 BP 122 / 73; Pulse 70; Resp 14; Pulse Ox 94% on R/A; zb 18:55 Body Mass Index 39.86 (102.06 kg, 160.02 cm) zb ED Course: 18:55 Patient arrived in ED. zb 18:55 Patient has correct armband on for positive identification. Placed in gown. Bed in low zb position. Call light in reach. Adult w/ patient. Pulse ox on. NIBP on. Door closed. Noise minimized. Warm blanket given. 19:02 Kin Hdz MD is Attending Physician. rn 19:06 Triage completed. zb 19:32 CT Lumbar Spine Wo Con In Process Unspecified. EDMS 19:32 CT Pelvis wo Cont In Process Unspecified. EDMS 20:01 Cornelia Rangel, DAVID is Primary Nurse. zb 20:04 XRAY Humerus LEFT In Process Unspecified. EDMS 20:04 XRAY Hip RIGHT 2 view In Process Unspecified. EDMS 20:04 XRAY Femur RIGHT In Process Unspecified. EDMS 20:04 XRAY Shoulder LEFT 2 view In Process Unspecified. EDMS 20:04 XRAY Chest (1 view) In Process Unspecified. EDMS 20:20 CT Head Brain wo Cont In Process Unspecified. EDMS 20:23 Urine Culture Sent. zb 20:23 Urine Microscopic Only Sent. zb 21:05 Arm band placed on. zb 04/13 01:44 Called [facility] to initiate transfer. Was on a hold until someone was available.tt3 02:01 Connected with and initiated transfer at [facility] josh Hoff. Stated she would tt3 make a few calls and call back. 02:51 Kavya called back to connect their physician with Dr. Hdz regarding the transfer tt3 request. 02:53 Kavya Louis gave admin approval. The accepting physician is Dr. Swanson. The pt is tt3 going to [facility] ER. Nurse to call report to . Face sheet and MOT faxed to per Kavya's request. 04:01 No provider procedures requiring assistance completed. Patient transferred, IV remains ll2 in place. Administered Medications: 04/12 20:58 Drug: NS 0.9% 500 ml Route: IV; Rate: bolus; Site: right antecubital; zb 21:35 Drug: fentaNYL (PF) 25 mcg Route: IVP; Site: right antecubital; zb 22:30 Follow up: Response: No adverse reaction; Pain is unchanged, physician notified; RASS: zb Alert and Calm (0) 22:40 Drug: fentaNYL (PF) 25 mcg Route: IVP; Site: right antecubital; zb 23:18 Follow up: Response: No adverse reaction; RASS: Alert and Calm (0) zb 04/13 04:00 Drug: fentaNYL (PF) 25 mcg Route: IVP; Site: right antecubital; ll2 04:00 Follow up: Response: Medication administered at discharge. ll2 Outcome: 01:01 ER care complete, transfer ordered by . rn 04:01 Transferred by ground EMS to [facility]. 2 04:01 Condition: stable 04:01 Instructed on the need for transfer. 04:02 Patient left the ED. ll2 Signatures: Dispatcher [employer] EDMS Kin Hdz MD MD rn Linscombe, Lacie, RN RN ll2 Nicolas Murphy3 Cornelia Rangel RN RN zb Corrections: (The following items were deleted from the chart) 04/12 21:04 18:45 Reassessment: pt in CT zb zb
[2020-04-13] MEDS ORDERED: FENTANYL CITR 100 MCG/2 ML ONE (04:06)
[2020-04-13 05:00] VITALS: BP 92/53; O2SAT 96
[2020-04-13 05:01] VITALS: TEMP 98.3
== END 2020-04-13 04:02 | disposition short-term general hospital (02) ==
LOC: ER 18:40
DX: M46.99 Unspecified inflammatory spondylopathy, multiple sites in spine (principal); N17.9 Acute kidney failure, unspecified; Z20.822 Contact with and (suspected) exposure to COVID-19; W19.XXXA Unspecified fall, initial encounter; Y93.9 Activity, unspecified; Y92.9 Unspecified place or not applicable; I10 Essential (primary) hypertension; E03.9 Hypothyroidism, unspecified; F32.9 Major depressive disorder, single episode, unspecified; Z88.2 Allergy status to sulfonamides; Z88.5 Allergy status to narcotic agent; Z96.643 Presence of artificial hip joint, bilateral
CPT/HCPCS: 87040; 87088; 85025; 87086; 80048; 36415; 83605; 82728; 84145; 0240U; 86140; 72131; 70450; 72192; 71045; 73502; 73060; 73030; 73552; 96374; 99285; J3010 ×2; J7040; 81003; 81015

== ENCOUNTER 2020-04-28 10:38 | Inpatient (IN) | payer OTHER ==
--- NOTE | 2020-04-28 12:17 | R.PREADM ---
PRE-ADMISSION SCREENING FORM SCREENING DATE AND TIME 04/28/2020 10:51 (UPHOLSTERY MECHANIC) ANTICIPATED REHAB ADMISSION DATE 04/30/2020 REFERRING FACILITY [facility] REFERRAL DATE AND TIME 04/28/2020 10:52 (UPHOLSTERY MECHANIC) REFERRAL OFFICE PHONE [phone] REFERRAL ROOM# 15 ACUTE ADMIT DATE 04/28/2020 Previous Rehabilitation(s): No. 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 SHERIDAN [facility]IMARY [facility] PHYSICIAN REHAB FACILITY [facility] CLINICAL LIAISON Nicolas Otoole PHYSICIAN REVIEWER Dr. Otf Murdock M.D. MR# [id number] NAME EMMA KLINE ADDRESS [address] [place] [address] PHONE [facility] [id number] DATE OF 1950 AGE 69 SSN# [id number] GENDER female MARITAL STATUS RACE unknown race ADMIT FROM 61 - Swing bed PRE-HOSPITAL LIVING SETTING 01 - Home (private home/apt. board/care, assisted living, long-term, transitional living) HOME TYPE AND DETAILS Type of home: single family house # of levels in the residence: 2 # of steps within the residence: 0 # of steps to enter the residence: 0 PRE-HOSPITAL LIVING WITH Family/Relatives FAMILY SUPPORT Yes PRIMARY FAMILY CONTACT NAME JAMES KOROMA PRIMARY FAMILY CONTACT PHONE PRIMARY FAMILY CONTACT RELATIONSHIP Son PHONE PRIMARY FAMILY CONTACT ON ADM.? no IS PRIMARY FAMILY CONTACT AUTH. REP.? no 1ST EMERGENCY CONTACT JAMES KOROMA 1ST CONTACT PHONE 1ST CONTACT RELATIONSHIP Son PHONE 1ST CONTACT ON ADM. no IS 1ST CONTACT AUTH. REP.? no PHONE 2ND CONTACT ON ADM.? no PATIENT EMPLOYMENT STATUS Retired (for age) PATIENT EMPLOYER No Employer PAYOR INFORMATION: 1ST PAYOR NAME MEDICARE 1ST PAYOR PHONE 1ST PAYOR INJURY/ILLNESS DUE TO ACCIDENT? No ANOTHER REPUBLICAN RESPONSIBLE? 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 is a 69 yo Right-handed female of unknown race. On 04/19/2020 she was admitted to [facility] with diagnosis SPINAL FRACTURE OF T-9 . 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 230). Pre-morbidly, Pt. was independent/mod-I in Safety Awareness, Balance, Transfers Control, Sphincter Co ntrol, and Endurance; and she had good Locomotion. Currently, she has deficits of Endurance, Sphincter Control, Transfers Control, Balance, and Locomoti on. Pt. is now referred to [facility] for acute in-patient rehabilitation in order to maximize patient's functional independence in activities of daily living, strength, ROM, and mobi lity. Patient has realistic goal of being discharged at assistance level 7-Ind to reside at Home with Fami ly/Relatives. Emma Kline is a 69 -year- old female that lives at home independently with her and family. She lives in a 2 story home. The down stairs of the [facility] is where her and her live. She fell down and struck her head and buttocks so she went [facility] and she was found to have a spinal fx of the T-9. Has has a history of discitis of her lumbar region L4-L5, chronic pain, and chronic spine problems. She has been transferred to [place] to the swing bed program and has been doing very well. She will has work to get stronger to be able to go home and take care of her self. The patient would most definitely benefit from acute inpatient rehab and has become severely debilitated and unable to live at her prior level of activity at home getting her stronger to be back living at home independently is our goal. It is reasonable and necessary for the patient to come to acute inpatient rehab for approximately 7-10 days in order to return to her prior level of care. She is now being transferred to [facility] Inpatient rehabilitation and is medically stable with relatively stable labs. She is now medically stable but in need of 24 hour nursing, doctor supervision and The patient is reasonably expected to participate in 3 hours of therapy a day/15 hours per week and receive care with intensive interdisciplinary approach. COVID-19 screening performed; spoke with patient via phone. Patient denies new onset of fever, cough, difficulty breathing, sore throat, body aches and non-allergy nasal congestion in the past 24 hours. Patient denies travel outside of [place] in the past 14 days. Patient denies any contact with someone who has a confirmed diagnosis of or is under investigation for COVID-19 in the past 14 days. Patient has been tested negative for COVID- 19. 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 OBESITY SLEEP APNEA VITAMIN D DEFICIENCY DEPRESSION RESTLESS LEG SYNDROME HYPOTHYRODISM PAST SURGICAL HISTORY: IMPLANT OF NEUROSTIMULATOR IN SPIN ON 12/11/17 REMOVAL OF NEUROSTIMULATOR EPIDUROGRAM 01/27/16 IMPLANT OF NEUROSTIMULATOR IN SPIN 2014 FUSION OF LUMBAR SPINE 2014 HIP REPLACEMENT 2011 HIP REPLACEMENT 2005 HYSTERECTOMY 1986 MEDICATION ALLERGIES: CODINE MORPHINE SULFA DRUG ENVIRONMENTAL ALLERGIES: - Substance Allergies None Known - Other Allergies None Known CODE STATUS: Full code WEIGHT/HEIGHT/BMI: WEIGHT 252 lbs HEIGHT 5' 4" BMI 43.3 DIET: - Diet Type Regular - Diet - Solid Texture Regular - Diet - Liquid Texture Regular - Tube Feed N/A REVIEW OF SYSTEMS: - Gen Alert and awake Lying in bed No apparent distress Oriented to: person, time, and place - Vital Signs Temperature: 37.0 SBP/DBP: 120/44 Pulse: 60 Resp: 16 Vital signs stable, afebrile - CVS RRR VITAL SIGNS Temperature: 37.0 SBP/DBP: 120/44 Pulse: 60 Resp: 16 Vital signs stable, afebrile MEDICATIONS/TREATMENT: Other- See attached MAR (Medication Administration Record). CURRENT SPHINCTER CONTROL: Pre-hospital bladder status: unspecified # of bladder accidents in the last 7 days prior to screenin Pre-hospital bowel status: unspecified # of bowel accidents in the last 7 days prior to screenin Last Bowel Movement Date: 04/28/2020 CURRENT LOCOMOTION STATUS: distance walked 70 feet DETAILED CURRENT FUNCTIONAL STATUS: - Bladder accident frequency: Ind - No accidents in the past 7 days - Bowel accident frequency: Ind - No accidents in the past 7 days - Walking score based on distance walked: 0(N/A) - Wheelchair score based on distance traveled: 0(N/A) QI SCORES: - Self-Care A. Eating 03-Partial/moderate assistance B. Oral hygiene 03-Partial/moderate assistance C. Toileting hygiene 03-Partial/moderate assistance E. Shower/bathe self 03-Partial/moderate assistance F. Upper body dressing 03-Partial/moderate assistance G. Lower body dressing 88-Not attempted due to medical condition or safety concerns H. Putting on/taking off footwear 88-Not attempted due to medical condition or safety concerns - Mobility A. Roll left and right 04-Supervision or touching assistance B. Sit to lying 04-Supervision or touching assistance C. Lying to sitting on side of bed 03-Partial/moderate assistance D. Sit to stand 03-Partial/moderate assistance E. Chair/ack-yf-migzq transfer 03-Partial/moderate assistance F. Toilet transfer 03-Partial/moderate assistance G. Car transfer 88-Not attempted due to medical condition or safety concerns I. Walk 10 feet 03-Partial/moderate assistance J. Walk 50 feet with two turns 03-Partial/moderate assistance K. Walk 150 feet 88-Not attempted due to medical condition or safety concerns L. Walking 10 feet on uneven surfaces 88-Not attempted due to medical condition or safety concerns M. 1 step (curb) 88-Not attempted due to medical condition or safety concerns N. 4 steps 88-Not attempted due to medical condition or safety concerns O. 12 steps 88-Not attempted due to medical condition or safety concerns P. Picking up object 88-Not attempted due to medical condition or safety concerns R. Wheel 50 feet with two turns 88-Not attempted due to medical condition or safety concerns S. Wheel 150 feet 88-Not attempted due to medical condition or safety concerns - Bladder and Bowel Bladder continence Bowel continence - Endurance Fair - Balance Fair - Safety Awareness Fair CURRENT FUNC. DEFICITS: Self-Care, Mobility, Endurance, Balance, and Safety Awareness HISTORY OF FALLS. HAS THE PATIENT HAD TWO OR MORE FALLS IN THE PAST YEAR OR ANY FALL WITH INJURY IN T HE PAST YEAR?: No PRIOR SURGERY. DID THE PATIENT HAVE MAJOR SURGERY DURING THE 100 DAYS PRIOR TO ADMISSION?: No THERAPY NOTES FROM ACUTE CARE: Attached. SPECIAL NEEDS: - Safety Concerns Skin breakdown precautions needed due to skin breakdown risk PATIENT NEEDS ACTIVE AND ONGOING THERAPEUTIC INTERVENTION OF MULTIPLE THERAPY DISCIPLINES, INCLUDING: - Orthotics/Prosthetics Orthotic Evaluation. Splinting/Casting. - Dietary and Nutrition Adequate Nutrition. Nutritional Education. Nutritional Supplements. PATIENT NEEDS CLOSE MEDICAL SUPERVISION BY A REHABILITATION PHYSICIAN FOR: Coordination of Treatment Team PATIENT REQUIRES 24X7 REHAB NURSING FOR MEDICAL AND FUNCTIONAL MGT. OF THE FOLLOWING DEFICITS: Disease Management Medication Management Patient/Family Education Providing Safe Environment PATIENT REQUIRES INTENSIVE, COORDINATED INTERDISCIPLINARY APPROACH TO REHAB: Arranging Home Equipment/Services Discharge Planning Family Intervention/Training Extractor Tender Raw Stock/Case Management PATIENT REHAB POTENTIAL: Sara KLINE is able and expected to receive 3 hours of individualized therapy daily on at least 5 of ever y 7 days Sara KLINE's prognosis for significant practical improvement within a reasonable period of time appears Good Expected level of measurable improvement will be of a practical value to Sara KLINE's functional capacit y or adaptations to impairments Has a viable Discharge Plan Medically appropriate; condition is sufficiently stable to participate in intensive rehab program DISCHARGE PLAN: - Estimated Length of Stay (days) 27. - Consensus on plan Discharge plan has been discussed with primary caregiver. Patient/Family is in agreement with the maryuri n. Primary caregiver is in agreement with the plan. - Patient/Family Goals Return home independently. - Planned Living Setting Upon Discharge Home, to live with Family/Relatives. Transitional Living. RECOMMENDED CARE LEVEL: IRF RECOMMENDATION DETAILS: Recommended Admission to Comprehensive Rehabilitation Program to Increase Functional [place] SCREENER'S COMPLETENESS CONFIRMATION: - Screening Confirmation The patient data collection on this preadmission screening form is finished PHYSICIANS REVIEW AND ADMISSION DETERMINATION Admit - Based on my review of the Pre-Admission Screening results, in my medical judgment and experie nce, I concur with the findings and recommend admission to [facility], as this patient requires an IRF level of care. SIGNATURE PANEL: Tiger Machine Operator - [electronically] signed by Nicolas Otoole on 04/28/2020 at 11:57 (UPHOLSTERY MECHANIC) Tiger Machine Operator - [electronically] signed by Lul Leger PT on 04/28/2020 at 12:06 (UPHOLSTERY MECHANIC) Physician Reviewer - [electronically] signed by Dr. Otf Murdock M.D. on 04/28/2020 at 12:16 (UPHOLSTERY MECHANIC )
--- OUTSIDE RECORDS SUMMARY | 2020-04-28 15:28 | XMS REPORT | Clinical Summary ---
:1950 Author Organization [facility] Address [address] [place] [id number] Care Team Providers Name Role Phone Maty [...] YRS Completed 02/16/2016 Implants Implanted Type Area Editor Book Device Shelf Model / Identifier Expiration Serial / Date Lot Cath Ascenda Intrathecal 2pc 8781 - [id number] Pain Right: [employer]:NEUROM 12/20/2018 8781 / Implanted: Qty: 1 on 06/13/2017 by Jerome Rodriguez MD at [facility] Mgmt/Sti Abdomen ODULATION / mulator [id number] Pump Infus Synchromed Ii 20 Ml 8637-20 - [id number] Pain Right: [employer]:NEUROM 8637-20 / Implanted: Qty: 1 on 06/13/2017 by Jerome Rodriguez MD at [facility] Mgmt/Sti Abdomen ODULATION NGP [id number] / mulator Personal Assigner 8835 - [id number] Pain Right: [employer]TR [employer]:NEUROM 8835 / Implanted: Qty: 1 on 06/13/2017 by Jerome Rodriguez MD at [facility] Mgmt/Sti Abdomen ODULATION NPG [id number] / mulator Description:SUPPLY Cath Ascenda Intrathecal 2pc 8781 - [id number] Pain Right: [employer]:NEUROMODULATION 10/18/2018 8781 / Implanted: Qty: 1 on 06/13/2017 by Jerome Rodriguez MD at [facility] Mgmt/Stimulator Abdomen / [id number] Pump Infus Synchromed Ii 20 Ml 8637-20 - [id number] Pain N/A: [employer]:NEUROMODULATION 05/23/2019 8637-20 / Implanted: Qty: 1 on 12/11/2017 by Jerome Rodriguez MD at [facility] Mgmt/Stimulator Abdomen [id number] / Cath Ascenda Intrathecal 2pc 8781 - [id number] Pain N/A: [employer]:NEUROMODULATION 09/14/2019 8781 / Implanted: Qty: 1 on 12/11/2017 by Jerome Rodriguez MD at [facility] Mgmt/Stimulator Back / [id number] [id number] Revision Spinal Segment 8782 - [id number] Pain N/A: [employer]:NEUROMODULATION 08/24/2019 8782 / Implanted: Qty: 1 on 12/11/2017 by Jerome Rodriguez MD at [facility] Mgmt/Stimulator Back / [id number] Results Not on fileafter 04/28/2019 Insurance Payer Benefit Plan Subscriber ID Effective Phone Address Typ e / Group Dates BLUE BCBS OS [id number] 2016-[place]mo [phone] [address] PPO CROSS/BLUE POS/PPO/EPO nt 12 [id number] [place] [address] MEDICARE MEDICARE A B [id number] 2014-[place] Advance Directives For more information, please contact: [phone] Code Status Date Activated Date Inactivated Comments [...]
--- OUTSIDE RECORDS SUMMARY | 2020-04-28 15:33 | XMS REPORT | Continuity of Care Document ---
:1950 Author Organization [employer] Care Team Providers Name Role Phone [employer] Unavailable Un available Problems Problem Status Onset Classification Date Comments Sourc e Date Reported M19.90 UNSPECIFIED Diagnosis 10/22/2018 [place] OSTEOARTHRITIS, 019 Plac e UNSPECIFIED SITE Z95.810 PRESENCE OF Diagnosis 10/22/[address] [place] [address] (IMPLANTABLE) CARDIAC DEFIBRILLATOR E78.5 HYPERLIPIDEMIA, Diagnosis 10/22/2018 [facility] U[address]IED [address] K21.9 Diagnosis 10/22/2018 [facility] GASTRO-ESOPHAGEAL 019 Pl francis REFLUX DISEASE WITHOUT ESOPHAGITIS R52 PAIN, UNSPECIFIED Diagnosis 10/22/[address] [place] [address] R53.1 WEAKNESS Diagnosis 10/22/[address] L30.9 DERMATITIS, Diagnosis 10/22/2018 [facility] UNSPECIFIED 019 Place W19.XXXA UNSPECIFIED Diagnosis 10/22/2018 [place] FALL, INITIAL 019 Place ENCOUNTER E66.9 OBESITY, Diagnosis 10/22/2018 Univ ersity UNSPECIFIED 019 Place M43.26 FUSION OF Diagnosis 10/22/2018 Un iversity SPINE, LUMBAR REGION 019 Place F32.9 MAJOR DEPRESSIVE Diagnosis 10/22/2018 [place] DISORDER, SINGLE 018 Gonzalo ce EPISODE, UNSPECIFIED R25.1 TREMOR, Diagnosis 10/22/2018 Unive rsity UNSPECIFIED 018 Place Z98.890 OTHER Diagnosis 10/22/2018 Unive rsity SPECIFIED 018 Place POSTPROCEDURAL STATES M54.5 LOW BACK PAIN Diagnosis 10/22/[address] [place] [address] I10 ESSENTIAL Diagnosis 10/22/2018 Unive rsity (PRIMARY) HYPERTENSION 018 Place Z96.9 PRESENCE OF 03/27/2 Diagnosis 10/22/2018 [facility] FUNCTIONAL IMPLANT, 018 Place UNSPECIFIED Chronic pain syndrome Diagnosis 10/22/2018 [place] (disorder) 018 Place Z97.8 PRESENCE OF Diagnosis 10/22/2018 [facility] OTHER SPECIFIED 018 Plac e DEVICES M79.7 FIBROMYALGIA Diagnosis 10/22/[address] [place] [address] E03.9 HYPOTHYROIDISM, Diagnosis 10/22/2018 [place] UNSPECIFIED 0[address] Z90.710 ACQUIRED Diagnosis 10/22/2018 Un iversity ABSENCE OF BOTH CERVIX 018 Place AND UTERUS F41.9 ANXIETY Diagnosis 10/22/2018 Unive rsity DISORDER, UNSPECIFIED 018 Place Z96.643 PRESENCE OF Diagnosis 10/22/2018 [place] ARTIFICIAL HIP JOINT, 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 Active Condition 12/05/2013 Medica l 014 Group CONSTIPATION Active Condition 12/05/2013 Med ical 014 Group HEMORRHOIDS Active Condition 12/05/2013 Medi jose luis 014 Group BUNDLE BRANCH BLOCK, Active Condition 12/05/2013 Medical LEFT ANTERIOR 014 Group FASCICULAR BLOCK DIABETES MELLITUS, Active Condition 12/05/2013 Medical TYPE II, UNCONTROLLED 014 Group LOW HDL Active Condition 12/05/2013 Medica l 014 Group MIK POSITIVE Active Condition 12/05/2013 Med ical 014 Group HIGH RISK MEDICATION Active Condition 12/05/2013 Medical 014 Group OBESITY Active Condition 12/05/2013 Medica l 014 Group PELVIC PAIN Active Condition 12/05/2013 Medi jose luis 013 Group HIP PAIN, RIGHT Active Condition 12/05/2013 Medical 013 Group VITAMIN B12 DEFICIENCY Active Condition 12/05/2013 Medical 013 Group PHYSICAL EXAM Active Condition 12/05/2013 Me dical 013 Group LEG PAIN Active Condition 12/05/2013 Medica l 013 Group DERMATITIS Active Condition 12/05/2013 Medic al 013 Group VITAMIN D DEFICIENCY Active Condition 12/05/2013 Medical 012 Group KNEE PAIN Active Condition 12/05/2013 Medica l 011 Group FLANK PAIN, RIGHT Active Condition 12/05/2013 [facility] Medical 011 Group UTI Active Condition 12/05/2013 Medica l 011 Group SLEEP APNEA Active Condition 12/05/2013 Medi jose luis 011 Group RESTLESS LEG SYNDROME Active Condition 12/05/2013 Medical 011 Group HIP REPLACEMENT, LEFT, Active Condition 12/05/2013 Medical HX OF 011 Group TINEA CORPORIS Active Condition 12/05/2013 [facility] edical 011 Group FEVER, HX OF Active Condition 12/05/2013 Med ical 011 Group SYNCOPE Active Condition 12/05/2013 Medica l 011 Group HIP REPLACEMENT, Active Condition 12/05/2013 Medical RIGHT, HX OF 011 Group DEGENERATIVE JOINT Active Condition 12/05/2013 Medical DISEASE, LEFT HIP 011 Gr oup PRE-OP EXAM Active Condition 12/05/2013 [facility] jose luis 011 Group BIPOLAR AFFECTIVE Active Condition 12/05/2013 [facility] Medical DISORDER, MODERATE 011 G roup ASEPTIC NECROSIS OF Active Condition 12/05/2013 Medical HEAD AND NECK OF FEMUR 011 Group RENAL CYST, RIGHT Active Condition 12/05/2013 [facility] Medical 010 Group ACQUIRED CYST OF Active Condition 12/05/2013 Medical KIDNEY 010 Group LOW BACK PAIN Active Condition 12/05/2013 [facility] dical 010 Group HIP PAIN, LEFT Active Condition 12/05/2013 [facility] edical 010 Group LUMBAR RADICULOPATHY Active Condition 12/05/2013 Medical 010 Group UNSPECIFIED VITAMIN D Active Condition 12/05/2013 Medical DEFICIENCY 010 Group Depression with Active Problem 11/02/2015 eCW : Gaurav Fraser Morbid Obesity Active Problem 11/02/2015 eCW: Gaurav Fraser Hyperlipidemia Active Problem 11/02/2015 eCW: Gaurav Fraser Osteoarthritis Active Problem 11/02/2015 eCW: Gaurav Fraser Hypothyroidism Active Problem 11/02/2015 eCW: Gaurav (acquired) [facility] Osteoporosis Active Problem 11/02/2015 eCW: Brigid Fraser Bipolar affective Active Problem 11/02/2015 e CW: Gaurav disorder, depressed [place] Low Back Pain Active Problem 11/02/2015 eCW: Gaurav Fraser Fibromyalgia Active Problem 11/02/2015 eCW: Brigid Fraser Pre-operative Active Diagnosis 02/06/2015 eCW: Gaurav clearance [facility] Vitamin D Deficiency Active Problem 11/02/2015 eCW: Gaurav Fraser Routine medical exam Active Diagnosis 01/08/2014 eCW: Gaurav Fraser Screen Mammogram NEC Active Diagnosis 03/18/2014 eCW: Gaurav Fraser Cacosmia Active Diagnosis 11/21/2014 eCW: Gaurav Fraser Memory deficits Active Diagnosis 05/21/2015 eCW : Gaurav Fraser Preoperative clearance Active Diagnosis 02/09/2015 eCW: Gaurav Fraser Pre-op examination Active Diagnosis 05/21/2015 eCW: Gaurav Fraser Pre-op evaluation Active Diagnosis 02/24/2015 e CW: Gaurav Fraser Depression with Active Problem 05/18/2016 eCW : Gaurav anxiety [facility] Vitamin D deficiency Active Problem 05/18/2016 eCW: Gaurav Fraser Hypothyroidism, Active Problem 05/18/2016 eCW : Gaurav Fraser Fibromyalgia Active Problem 05/18/2016 eCW: Brigid Fraser Hyperlipidemia, Active Problem 05/18/2016 eCW : Gaurav Fraser Dorsalgia, unspecified Active Problem 05/18/2016 eCW: Gaurav Fraser Spinal stenosis of Active Problem 05/18/2016 eCW: Gaurav thoracolumbar region [facility] Generalized OA Active Problem 05/18/2016 eCW: Gaurav Fraser Osteoporosis Active Problem 05/18/2016 eCW: Brigid Fraser Conjunctivitis Active Diagnosis 05/21/2015 eCW: Gaurav Fraser Conjunctivitis Active Diagnosis 11/02/2015 eCW: Gaurav Fraser Restless legs syndrome Active Problem 05/18/2016 eCW: Gaurav Fraser Hypertension Active Problem 05/18/2016 eCW: Brigid Fraser Obesity Active Problem 05/18/2016 eCW: Gaurav Fraser DEPRESSION Active Condition 12/05/2013 Medic al Group HYPERCHOLESTEROLEMIA Active Condition 12/05/2013 Medical Group HYPERTENSION - BENIGN Active Condition 12/05/2013 Medical ESSENTIAL Group HYPOTHYROIDISM Active Condition 12/05/2013 M edical Group GERD Active Condition 12/05/2013 Medica l Group Medications Medication Details Route Status Patient Ordering Order Source Instructions Provider Date oxyCODONE HCl Give 1 Oral Active Tablet 10 MG tablet by 2019 Place mouth three times a day for pain QUEtiapine GIVE 1 Oral Active Fumarate Tablet TABLET BY [address] Place 50 MG MOUTH AT BEDTIME Mirapex Tablet GIVE 1 Oral Active it y 0.5 MG TABLET BY [address] Place MOUTH AT BEDTIME Lyrica Capsule Give 1 Oral Active it y 200 MG capsule by 2019 Place mouth three times a day related to FIBROMYALGIA (M79.7) oxyCODONE HCl Give 1 Oral Active Tablet 10 MG tablet by 2019 Place mouth three times a day for pain for 7 Days Centrum Adults Give 1 Oral Active it y Tablet tablet by 2019 Place mouth one time a day for Dietary Supplement Forteo Solution Inject 20 Subcutaneo Active 10/02/ versity mcg us 2019 Place subcutaneous ly one time a day related to UNSPECIFIED OSTEOARTHRIT IS, UNSPECIFIED SITE (M19.90) Cholestyramine GIVE 1 Oral Active y Light Packet 4 PACKET BY 2019 Place GM MOUTH ONE TIME A DAY MIX IN 8OZ LIQUID Lotrisone Cream APPLY TO External Active 10/02/ er sity 1-0.05 % AFFECTED 2019 Place AREA [...] (M79.7) DESVENLAFAXINE TAKE 1 TAB Oral Active 10/02/ Univer sity ER 50MG TAB ER BY MOUTH 2019 Place 24H EVERY DAY Ferrous Sulfate Give 1 Oral Active i ty Tablet 325 ([address] Fe) MG mouth one time a day for supplementat ion Vitamin D2 GIVE 60842 Oral Active Tablet UNIT BY [address] MOUTH ONE TIME A DAY EVERY SUN GlycoLax Powder Give 17 gram Oral Active 10/02/ Uni versity by mouth one 2018 Place time a day every other day for constipation (in Liquid) Losartan GIVE 1 Oral Active Potassium TABLET BY [address] Place Tablet 100 MG MOUTH ONE TIME A DAY HOLD FOR SBP<110, P<60 Furosemide GIVE 1 Oral Active Tablet 20 MG TABLET BY 2018 Place MOUTH ONE TIME A DAY Pristiq Tablet Give 1 Oral Active 10/02/ it y Extended tablet by 2018 Place Release 24 Hour mouth one 50 MG time a day related to MAJOR DEPRESSIVE DISORDER, SINGLE EPISODE, UNSPECIFIED (F32.9) Levothyroxine GIVE 1 Oral Active Sodium Tablet TABLET BY [address] 112 MCG MOUTH ONE TIME A DAY GIVE 30 MINUTES BEFORE BREAKFAST ON EMPTY STOMACH OMEPRAZOLE 20MG 1 CAP BY Oral Active ity CAPSULE DR MOUTH EVERY 2018 Place DAY AT LEAST 30MINUTES BEFORE A MEAL TI FOR NEXIUM Docusate Sodium Give 1 Oral Active ty Capsule 100 MG capsule by 2018 Place mouth every 12 hours for constipation Temazepam Give 1 Oral Active Capsule 15 MG capsule by 2018 Place mouth every 24 hours as needed for insomnia Ibuprofen GIVE 1 Oral Active Tablet 400 MG TABLET BY 2018 Place MOUTH THREE TIMES A DAY FOR 7 DAYS OxyCODONE HCl Give 1 Oral Active Tablet 15 MG tablet by 2017 Place mouth every 6 hours as needed for For pain Temazepam Give 2 Oral Active Capsule 7.5 MG capsule by 2018 Place mouth every 24 hours as needed for insomnia give 2 tabs = 15mg Amoxicillin-Pot GIVE 1 Oral Active i ty Clavulanate TABLET BY [address] Tablet 875-125 MOUTH EVERY MG 12 [...] fever greater than 100.4 Decara Capsule Give 81302 Oral Active er sity 78266 UNIT unit by [address] mouth one time a day every [...] Icy Hot Patch Apply to External Active i ty affected 2018 Place area topically two [...] BEDTIME Lyrica Capsule Give 1 Oral Active it y 225 MG capsule by 2018 Place mouth two times a day related to FIBROMYALGIA (M79.7) Clotrimazole-Be Apply to External Active er sity tamethasone affected 2017 Place Cream 1-0.05 % area topically two times a day for affected area Docusate Sodium [facility] MG capsule by 2018 [...] needed for severe pain for 10 Days hydrochlorothia 1 tab(s) orally Active 12.5 mg-100 mg [facility] 05/17/ eCW: Gaurav zide-losartan orally once a 2016 [place] aditya day Lyrica 1 cap(s) orally Active 225 mg orally [facility] 01/02/ eCW: Roshan e 2 times a day 2015 [facility] ergocalciferol 1 cap(s) orally Active 50,000 intl Ile[place] 01/02/ eCW: Gaurav units orally 2015 [facility] once a week clotrimazole 1 noy applied Active 1% applied Ile[place] 01/02/ eCW: Roshan e topical topically topically 2 2015 [facility] times a day Vigamox 1 gtt in each Active 0.5% in each [facility] 10/03/ eCW: Gaurav affected affected eye 2 2015 [place] eye times a day PrednisoLONE Na 1 gtt in each Active 0.25% sodium Ileana 10/03/ eCW : Gaurav Phosphate-Na affected phosphate-10% 2015 aditya Sulfacetamide eye in each affected eye every 6 hours Lyrica 1 cap(s) orally Active 225 mg orally Davis09/07/ eCW: Gaurav bid 2015 [place] hydrochlorothia 1 tab(s) orally Active 12.5 mg-100 mg Davis/ eCW: Gaurav zide-losartan orally once a 2015 [place] aditya day Lyrica 1 cap(s) orally Active 225 mg orally Davis03/01/ eCW: Gaurav bid 2014 [facility] Levaquin 1 tab(s) orally Active 500 mg orally [place] eCW: Roshan e every 24 hours 2014 [facility] ofloxacin 2 gtt in each Active 0.3% in each [facility] 01/04/ eCW: Gaurav ophthalmic affected affected eye 4 2014 Zaval eta eye times a day Betamethasone-C 1 noy applied Active 0.05%-1% [place] 11/17/ eCW: Eavngelina berry lotrimazole topically applied 2014 [facility] topically 2 times a day Montelukast 1 tab(s) orally Active 10 mg orally [place] 07/06/ eCW: Brigid rhodese Sodium once a day (in 2014 [facility] the evening) benzonatate 1 cap(s) orally Active 200 mg orally [place] 06/22/ eCW: Gaurav 3 times a day 2014 [place] ProAir HFA 2 puff(s) inhaled Active CFC free 90 [place] 06/22/ eCW: Evangelina berry mcg/inh 2014 [facility] inhaled 4 times a day Betamethasone-C 1 noy applied Active 0.05%-1% [place] 03/23/ eCW: Evangelina berry lotrimazole topically applied 2013 [facility] topically 2 times a day zolpidem 1 tab(s) orally Active 10 mg orally [place] 02/04/ eCW: Gaurav once a day (at 2013 [facility] bedtime) Vitamin D3 1 cap(s) orally Active 50,000 intl [place] 12/18/ eCW: Roshan e units orally 2013 [place] once a week Lyrica 1 cap(s) orally Active 225 mg orally [place] 12/04/ eCW: Gaurav tid 2013 [facility] IBANDRONATE Take 1 by Active Medical SODIUM 150 MG mouth 2014 Group TABS monthly for osteoporosis ZOLPIDEM Take 1 by Active Medical TARTRATE ER mouth every 2013 Group 12.5 MG CR-TABS night to sleep HYDROCODONE-FRANCIS Take 1 by Active Med ical TAMINOPHEN mouth ass 2013 Group 10-325 MG TABS needed for pain ONDANSETRON HCL Take 1 by Active Med ical 4 MG TABS mouth as 2013 Group needed for nausea LIDOCAINE 5 % use as Active Medical PTCH needed for 2014 Group pain COLACE 50 MG take 3 pills Active Med ical CAPS po bid prn 2013 Group constipation ANUSOL-HC 2.5 % apply up to Active M edical CREA 3-4 times a 2014 Group day ZOLPIDEM Take 1 by Active Medical TARTRATE ER mouth every 2013 Group 12.5 MG CR-TABS night to sleep HYDROCODONE-FRANCIS Take 1 by Active Med ical TAMINOPHEN [...] (ERGOCALCIFEROL capsule by Active 2013 Group ) [id number] UNIT mouth every CAPS week for 12 [...] [place] [address] UNIT CAPS qweekly for Active 2012 Grou [...] 1 q week No Longer Med ical 08179 UNIT CAPS Active 2010 Group CYCLOBENZAPRINE 1 qd No Longer Med ical HCL 10 MG TABS Active 2010 Group CYCLOBENZAPRINE 1 qd No Longer Med ical HCL 10 MG TABS Active 2010 Group FLEXERIL TAB 1 po qhs No Longer Medic al 10MG Active 2010 Group VIMOVO 500-20 1 tab po bid No Longer [facility] Medical MG TBEC Active 2010 Group [...] Group LOTRIMIN AF apply bid No Longer 03/21/ MH Medic al CREA Active 2010 Group SKELAXIN 800 MG 1 po q bid Inactive Medical TABS 2011 Group SKELAXIN 800 MG 1 po q bid Inactive Medical TABS 2011 Group ABILIFY 15 MG 1 qd Inactive MH Medica l TABS 2010 Group CIPRO 500 MG 1 bid Inactive [facility] Medical TABS 2011 Group ABILIFY 15 MG 1 qd Inactive MH Medica l TABS 2010 Group CIPRO 500 MG 1 bid Inactive Medical TABS 2010 Group HYDROCODONE-FRANCIS 2 tablets No Longer M edical TAMINOPHEN every 6 hrs Active 2010 Group 5-500 MG TABS prn pain HYDROCODONE-FRANCIS 2 tablets No Longer M edical TAMINOPHEN every 6 hrs Active 2010 Group 5-500 MG TABS prn pain METAXALONE 800 bid No Longer Medi jose luis MG TABS Active 2010 Group METAXALONE 800 bid No Longer Medi jose luis MG TABS Active 2010 Group MEDROL (MIREILLE) Take as No Longer Medica l TABS directed Active 2009 Group with food x 6 days CELEBREX 200 MG 1 qd Inactive MH Medi jose luis CAPS 2009 Group CELEBREX 200 MG 1 qd Inactive Medi jose luis CAPS 2009 Group CELEBREX 200 MG 1 qd Inactive Medi jose luis CAPS 2010 Group LEVOTHYROXINE 1 qd Active Medical SODIUM 100 MCG 2009 Group TABS CALTRATE 600+D Active Medica l PLUS TABS 2009 Group PRISTIQ 50 MG 1 qd Active Medical TB24 2009 Group LORAZEPAM 1 MG 2 to 3 as Active Medi jose luis TABS needed 2009 Group ERGOCALCIFEROL 1 tab po q No Longer M edical 89741 UNIT CAPS wk Active 2009 Group VITAMIN D3 1 tab a day No Longer MH Medi jose luis 2,000 UNIT/ML Active 2009 [...] orally Active 100 mcg (0.1 Ileana eCW: Gaurav mg) orally Bria once a day Lyrica 1 cap(s) orally Active 225 mg orally Davis eCW: Gaurav bid [facility]ria fenofibrate 1 tab(s) orally Active 54 mg orally Ileana eCW: J ose once a day [facility] lorazepam 1 tab(s) orally Active 1 mg orally 3 Bria eCW: J ose times a day [facility] Vitamin D3 1 cap(s) orally Active 50,000 intl Ileana eCW: Roshan e units orally Bria once a week tramadol 2 tab(s) orally Active 50 mg orally [place] eCW: Gaurav tid [facility]ria mirtazapine 1 tab(s) orally Active 30 mg orally Ileana eCW: J ose once a day (at [facility] bedtime) per psych cyclobenzaprine 1 tab(s) orally Active 10 mg orally 1 Ryan eCW: Gaurav times a day [facility]ria ibandronate 1 tab(s) orally Active 150 mg orally Ileana eCW: Gaurav once a month [facility] zolpidem 1 tab(s) orally Active 10 mg orally Ileana eCW: Gaurav once a day (at [facility] bedtime) Pristiq 1 tab(s) orally Active 50 mg orally Ileana eCW: Gaurav once a day per [facility]ria psych lidocaine 0.5% - - Active 5% - as needed Ileana eC W: Gaurav topical cream per neuro [facility] Butrans 1 patch transderma Active 20 mcg/hr Ileana eCW: Gaurav lly transdermally Bria once a week neuro benzonatate 1 cap(s) orally Active 200 mg orally Davis eCW: Gaurav 3 times a day [facility] clonidine 1 tab(s) orally Active 0.2 mg orally Ileana eCW: Evangelina se bid [facility] hydrochlorothia 1 tab(s) orally Active 12.5 mg-100 mg Ileana eCW: Gaurav zide-losartan orally once a Zava aditya day Allergies, Adverse Reactions, Alerts Substance Category Reaction Severity Reaction Status Date Comments S ource type Reported CODEINE Drug CODEINE Med ical allergy 0 Group SULFA Drug SULFA Med ical allergy 0 Group Sulfa Adverse hives Adverse Active eCW: Brigid ose Reaction Reaction 6 [place] codeine Adverse vomiting Adverse Active eCW: Gaurav Reaction Reaction 6 [place] Codeine Univer sity 8 Place Sulfa Drugs Un iversity 8 Place acetaminoph Un iversity en-codeine 9 Place Morphine Unive rsity 9 Place Immunizations Immunization Date Given Site Status Last Comments Source Updated Influenza ([facility]) 03/23/2014 completed eCW : Gaurav Fraser Results Order Name Results Value Reference Date Interpretation Comments Chel rce Range Chemistry HGBA1C 6.7 - 5.6 07/02 Medical Group Chemistry HGBA1C 10.0 - 5.6 05/05 Medical Group Chemistry CHOLESTEROL 162 - 199 05/05 Medical Group Chemistry TRIGLYCERIDE 189 - 149 05/05 Medical Group Chemistry HDL 21 >=61 05/05 Medical Group Chemistry LDL 103 - 99 05/05 Medical Group Chemistry URIC ACID 2.6 2.5 - 7.0 05/05 Medical Group Chemistry SODIUM 143 MEQ/L 135 - 145 05/05 Medical Group Chemistry POTASSIUM 4.3 MEQ/L 3.5 - 5.1 05/05 Medical Group Chemistry CREATININE 0.9 0.5 - 1.4 05/05 Medical Group Chemistry BUN 3 7 - 22 05/05 Medical Group Chemistry BUN/CREAT 3 6 - 25 05/05 Medical Group Chemistry ALBUMIN 3.2 3.5 - 5.0 05/05 Medical Group Chemistry CALCIUM 8.4 8.5 - 10.5 05/05 Medical Group Chemistry SGPT (ALT) 18 0 - 65 05/05 Medical Group Chemistry SGOT (AST) 30 0 - 37 05/05 Medical Group Chemistry ALK PHOS 86 39 - 136 05/05 Medical Group Chemistry TSH 1.020 0.360 - 05/05 3. Medical Group Chemistry CORTISOL SER 8.0 3.0 - 23.0 05/05 Medical Group Chemistry HGBA1C 10.0 - 5.6 05/05 Medical Group Chemistry CHOLESTEROL 162 - 199 05/05 Medical Group Chemistry TRIGLYCERIDE 189 - 149 05/05 Medical Group Chemistry HDL 21 >=61 05/05 Medical Group Chemistry LDL 103 - 99 05/05 Medical Group Chemistry URIC ACID 2.6 2.5 - 7.0 05/05 Medical Group Chemistry SODIUM 143 MEQ/L 135 - 145 05/05 Medical Group Chemistry POTASSIUM 4.3 MEQ/L 3.5 - 5.1 05/05 Medical Group Chemistry CREATININE 0.9 0.5 - 1.4 05/05 Medical Group Chemistry BUN 3 7 - 22 05/05 Medical Group Chemistry BUN/CREAT 3 6 - 25 05/05 Medical Group Chemistry ALBUMIN 3.2 3.5 - 5.0 05/05 Medical Group Chemistry CALCIUM 8.4 8.5 - 10.5 05/05 Medical Group Chemistry SGPT (ALT) 18 0 - 65 05/05 Medical Group Chemistry SGOT (AST) 30 0 - 37 05/05 Medical Group Chemistry ALK PHOS 86 39 - 136 05/05 Medical Group Chemistry TSH 1.020 0.360 - 05/05 3. Medical Group Chemistry CORTISOL SER 8.0 3.0 - 23.0 05/05 Medical Group Hematology HGB 12.2 12.0 - 05/05 16. Medical Group Hematology HCT 38.4 36.0 - 05/05 48.0 Medical Group Hematology PLATELETS 202 K/CMM 133 - 450 05/05 Medical Group Hematology ESR 48 0 - 20 05/05 Medical Group Hematology HGB 12.2 12.0 - 05/05 16. Medical Group Hematology HCT 38.4 36.0 - 05/05 48.0 Medical Group Hematology PLATELETS 202 K/CMM 133 - 450 05/05 Medical Group Hematology ESR 48 0 - 20 05/05 Medical Group Serology MIK Positive 05/05 Medical Group Serology MIK Positive 05/05 Medical Group Urinalysis UA COLOR Yellow 05/05 Medical Group Urinalysis BACTERIA URN Occasional 05/05 Medical Group Urinalysis UA COLOR Yellow 05/05 Medical Group Urinalysis BACTERIA URN Occasional 05/05 Medical Group Chemistry CHOLESTEROL 131 120 - 200 04/24 Medical Group Chemistry TRIGLYCERIDE 107 0 - 200 04/24 Medical Group Chemistry HDL 38 >=35 04/24 Medical Group Chemistry LDL 72 0 - 129 04/24 Medical Group Chemistry SODIUM 139 MEQ/L 135 - 145 04/24 Medical Group Chemistry POTASSIUM 4.1 MEQ/L 3.5 - 5.1 04/24 Medical Group Chemistry CREATININE 1.0 0.5 - 1.4 04/24 Medical Group Chemistry BUN 7 7 - 22 [...] Group Chemistry TSH 4.680 0.360 - 04/24 3.740 /2012 Medical Group Hematology HGB 12.4 12.0 - 04/24 16.0 Medical Group Hematology HCT 37.6 36.0 - 04/24 48.0 /2012 Medical Group Hematology PLATELETS 213 K/CMM 133 - 450 04/24 Medical Group Urinalysis UA COLOR Yellow 04/24 Medical Group Urinalysis BACTERIA URN Occasional 04/24 Medical Group Chemistry CHOLESTEROL 110 120 - 200 03/14 Medical Group Chemistry TRIGLYCERIDE 135 0 - 200 03/14 Medical Group Chemistry HDL 34 >=35 03/14 Medical Group Chemistry LDL 49 0 - 129 03/14 Medical Group Chemistry SODIUM 143 MEQ/L 135 - 145 03/14 Medical Group Chemistry POTASSIUM 4.1 MEQ/L 3.5 - 5.1 03/14 Medical Group Chemistry CREATININE 0.9 0.5 - 1.4 03/14 Medical Group Chemistry BUN 6 7 - 22 03/14 Medical Group Chemistry BUN/CREAT 7 6 - 25 03/14 Medical Group Chemistry ALBUMIN 3.9 3.5 - 5.0 03/14 Medical Group Chemistry CALCIUM 9.0 8.5 - 10.5 03/14 Medical Group Chemistry SGPT (ALT) 27 0 - 65 03/14 Medical Group Chemistry SGOT (AST) 34 0 - 37 03/14 Medical Group Chemistry ALK PHOS 76 39 - 136 03/14 Medical Group Chemistry TSH 0.524 0.360 - 03/14 3.740 Medical Group Hematology HGB 12.2 12.0 - 03/14 16. Medical Group Hematology HCT 35.7 36.0 - 03/14 48.0 Medical Group Hematology PLATELETS 252 K/CMM 133 - 450 03/14 Medical Group Urinalysis UA COLOR Yellow Yellow 03/14 Medical Group Hematology HGB 11.6 12.0 - 07/21 16. Medical Group Hematology HCT 35.3 36.0 - 07/21 48. Medical Group Hematology PLATELETS 314 K/CMM 133 - 450 07/21 Medical Group Hematology ESR 42 0 - 20 07/21 Medical Group Urinalysis UA COLOR Yellow Yellow 06/21 Medical Group Urinalysis BACTERIA URN Occasional None Seen 06/21 Medical Group Chemistry SODIUM 140 135 - 145 05/24 Medical Group Chemistry POTASSIUM 4.5 3.5 - 5.1 05/24 Medical Group Chemistry CREATININE 0.9 0.5 - 1.4 05/24 Medical Group Chemistry BUN 13 7 - 22 05/24 Medical Group Chemistry BUN/CREAT 14 6 - 25 05/24 Medical Group Chemistry ALBUMIN 4.2 3.5 - 5.0 05/24 Medical Group Chemistry CALCIUM 9.1 8.5 - 10.5 05/24 Medical Group Chemistry SGPT (ALT) 15 0 - 65 05/24 Medical Group Chemistry SGOT (AST) 12 0 - 37 05/24 Medical Group Chemistry ALK PHOS 67 39 - 136 05/24 Medical Group Chemistry TSH 0.680 0.360 - 05/24 MH 3.740 Medical Group Coagulation PT PATIENT 13.6 12.0 - 05/24 MH 14.7 Medical Group Coagulation INR 1.02 0.85 - 05/24 MH 1.17 Medical Group Hematology HGB 12.7 12.0 - 05/24 MH 16.0 Medical Group Hematology HCT 38.1 36.0 - 05/24 MH 48.0 Medical Group Hematology PLATELETS 269 K/CMM 133 - 450 05/24 Medical Group Urinalysis UA COLOR Yellow Yellow 05/24 Medical Group Pathology Reports No Data Provided for This Section Diagnostic Reports No Data Provided for This Section Consultation Notes No Data Provided for This Section Discharge Summaries No Data Provided for This Section History and Physicals No Data Provided for This Section Vital Signs Vital Sign Value Date Comments Source Systolic (mm Hg) 141 10/22/2018 [place] Diastolic (mm Hg) 79 10/22/2018 [place] Temperature Oral (F) 98 F 10/22/2018 [facility] [facility] Heart Rate 53 {beats}/min 10/22/[address] [facility] Respitory Rate 18 10/22/[address] [facility] Systolic (mm Hg) 128 10/22/2018 [place] Diastolic (mm Hg) 62 10/22/2018 [place] Temperature Oral (F) 98 F 10/22/2018 [facility] Heart Rate 54 {beats}/min 10/22/[address] [facility] Respitory Rate 16 10/22/[address] [facility] Systolic (mm Hg) 118 10/21/2018 [place] Diastolic (mm Hg) 63 10/21/2018 [place] Temperature Oral (F) 97 F 10/21/2018 [facility] Heart Rate 60 {beats}/min 10/21/[address] [facility] Respitory Rate 20 10/21/[address] [facility] Systolic (mm Hg) 120 10/21/2018 [place] Diastolic (mm Hg) 70 10/21/2018 [place] Temperature Oral (F) 98.4 F 10/21/2018 [facility] Heart Rate 52 {beats}/min 10/21/[address] [facility] Respitory Rate 18 10/21/[address] [facility] Systolic (mm Hg) 117 10/21/2018 [place] Diastolic (mm Hg) 56 10/21/2018 [place] Temperature Oral (F) 98 F 10/21/[address] Heart Rate 52 {beats}/min 10/21/[address] [facility] Respitory Rate 18 10/21/[address] [facility] Systolic (mm Hg) 130 10/20/2018 [place] Diastolic (mm Hg) 60 10/20/2018 [place] Temperature Oral (F) 98.6 F 10/20/[address] Heart Rate 74 {beats}/min 10/20/[address] [facility] Respitory Rate 20 10/20/[address] [facility] Systolic (mm Hg) 135 10/20/2018 [place] Diastolic (mm Hg) 70 10/20/2018 [place] Temperature Oral (F) 98.2 F 10/20/[address] Heart Rate 69 {beats}/min 10/20/[address] [facility] Respitory Rate 20 10/20/[address] [facility] Weight 215.4 10/20/[address] [facility] Systolic (mm Hg) 125 10/20/2018 [place] Diastolic (mm Hg) 63 10/20/2018 [place] Temperature Oral (F) 98.4 F 10/20/[address] Heart Rate 51 {beats}/min 10/20/[address] [facility] Respitory Rate 19 10/20/[address] [facility] Systolic (mm Hg) 127 10/19/2018 [place] Diastolic (mm Hg) 67 10/19/2018 [place] Temperature Oral (F) 97 F 10/19/[address] [facility] [address] [address] Heart Rate 65 {beats}/min 10/19/[address] [facility] Respitory Rate 18 10/19/[address] [facility] Systolic (mm Hg) 151 10/19/2018 [place] Diastolic (mm Hg) 67 10/19/2018 [place] Temperature Oral (F) 97.2 F 10/19/[address] [address] Heart Rate 61 {beats}/min 10/19/[address] [facility] Respitory Rate 16 10/19/[address] [facility] Systolic (mm Hg) 127 10/19/2018 [place] Diastolic (mm Hg) 56 10/19/2018 [place] Temperature Oral (F) 98.6 F 10/19/[address] [facility] [address] [address] Heart Rate 56 {beats}/min 10/19/[address] [facility] Respitory Rate 16 10/19/[address] [facility] Systolic (mm Hg) 135 10/18/2018 [place] Diastolic (mm Hg) 64 10/18/2018 [place] Temperature Oral (F) 99.1 F 10/18/[address] [address] Heart Rate 60 {beats}/min 10/18/[address] [facility] Respitory Rate 18 10/18/[address] [facility] Systolic (mm Hg) 130 10/18/2018 [place] Diastolic (mm Hg) 61 10/18/2018 [place] Temperature Oral (F) 98.7 F 10/18/[address] [address] Heart Rate 57 {beats}/min 10/18/[address] [facility] Respitory Rate 16 10/18/[address] [facility] Systolic (mm Hg) 117 10/17/2018 [place] Diastolic (mm Hg) 63 10/17/2018 [place] Temperature Oral (F) 97 F 10/17/[address] [facility] [address] [address] Heart Rate 56 {beats}/min 10/17/[address] [facility] Respitory Rate 20 10/17/[address] [facility] Systolic (mm Hg) 133 10/17/2018 [place] Diastolic (mm Hg) 63 10/17/2018 [place] Temperature Oral (F) 97.8 F 10/17/[address] [facility] [address] [address] Heart Rate 59 {beats}/min 10/17/[address] [facility] Respitory Rate 18 10/17/[address] [facility] Systolic (mm Hg) 132 10/16/2018 [place] Diastolic (mm Hg) 60 10/16/2018 [place] Temperature Oral (F) 97 F 10/16/[address] [address] Heart Rate 70 {beats}/min 10/16/[address] [facility] Respitory Rate 18 10/16/[address] [facility] Systolic (mm Hg) 115 10/16/2018 [place] Diastolic (mm Hg) 48 10/16/2018 [place] Temperature Oral (F) 98.6 F 10/16/[address] [address] Heart Rate 58 {beats}/min 10/16/[address] [facility] Respitory Rate 16 10/16/[address] [facility] Weight 216.4 10/15/2018 [facility] Height 63 10/15/2018 [facility] Systolic (mm Hg) 123 10/15/2018 [place] Diastolic (mm Hg) 54 10/15/2018 [place] Temperature Oral (F) 98.4 F 10/15/[address] [address] Heart Rate 48 {beats}/min 10/15/[address] [facility] Respitory Rate 16 10/15/[address] [facility] Systolic (mm Hg) 116 10/15/2018 [place] Diastolic (mm Hg) 58 10/15/2018 [place] Temperature Oral (F) 98.6 F 10/15/[address] [address] Heart Rate 58 {beats}/min 10/15/[address] [facility] Respitory Rate 18 10/15/[address] [facility] Systolic (mm Hg) 129 10/14/2018 [place] Diastolic (mm Hg) 65 10/14/2018 [place] Temperature Oral (F) 97 F 10/14/[address] [facility] [address] [address] Heart Rate 59 {beats}/min 10/14/[address] [facility] Respitory Rate 20 10/14/[address] [facility] Systolic (mm Hg) 114 10/14/2018 [place] Diastolic (mm Hg) 45 10/14/2018 [place] Temperature Oral (F) 97.7 F 10/14/[address] [facility] [address] [address] Heart Rate 44 {beats}/min 10/14/[address] [facility] Respitory Rate 16 10/14/[address] [facility] Systolic (mm Hg) 138 10/14/2018 [place] Diastolic (mm Hg) 61 10/14/2018 [place] Temperature Oral (F) 98.2 F 10/14/[address] [facility] [address] [address] Heart Rate 45 {beats}/min 10/14/[address] [facility] Respitory Rate 18 10/14/[address] [facility] Systolic (mm Hg) 119 10/14/2018 [place] Diastolic (mm Hg) 53 10/14/2018 [place] Temperature Oral (F) 98 F 10/14/[address] [address] Heart Rate 72 {beats}/min 10/14/[address] [facility] Respitory Rate 16 10/14/[address] [facility] Systolic (mm Hg) 149 10/13/2018 [place] Diastolic (mm Hg) 77 10/13/2018 [place] Temperature Oral (F) 97.8 F 10/13/[address] [facility] [address] [address] Heart Rate 75 {beats}/min 10/13/[address] [facility] Respitory Rate 20 10/13/[address] [facility] Systolic (mm Hg) 116 10/13/2018 [place] Diastolic (mm Hg) 60 10/13/2018 [place] Temperature Oral (F) 98.2 F 10/13/[address] [facility] [address] [address] Heart Rate 52 {beats}/min 10/13/[address] [facility] Respitory Rate 16 10/13/[address] [facility] Systolic (mm Hg) 127 10/12/2018 [place] Diastolic (mm Hg) 60 10/12/2018 [place] Temperature Oral (F) 98.9 F 10/12/[address] [facility] [address] [address] Heart Rate 65 {beats}/min 10/12/[address] [facility] Respitory Rate 16 10/12/[address] [facility] Systolic (mm Hg) 105 10/12/2018 [place] Diastolic (mm Hg) 51 10/12/2018 [place] Temperature Oral (F) 98.9 F 10/12/[address] [facility] [address] [address] Heart Rate 60 {beats}/min 10/12/[address] [facility] Respitory Rate 14 10/12/[address] [facility] Systolic (mm Hg) 119 10/11/2018 [place] Diastolic (mm Hg) 57 10/11/2018 [place] Temperature Oral (F) 97 F 10/11/[address] [facility] [address] Heart Rate 54 {beats}/min 10/11/[address] [facility] Respitory Rate 20 10/11/[address] [facility] Systolic (mm Hg) 115 10/11/2018 [place] Diastolic (mm Hg) 55 10/11/2018 [place] Temperature Oral (F) 98.2 F 10/11/[address] [facility] Rate 50 {beats}/min 10/11/[address] [facility] Respitory Rate 18 10/11/[address] [facility] Systolic (mm Hg) 114 10/11/2018 [place] Diastolic (mm Hg) 60 10/11/2018 [place] Temperature Oral (F) 98.7 F 10/11/[address] [facility] Heart Rate 62 {beats}/min 10/11/[address] [facility] Respitory Rate 16 10/11/[address] [facility] Systolic (mm Hg) 114 10/10/2018 [place] Diastolic (mm Hg) 55 10/10/2018 [place] Temperature Oral (F) 97 F 10/10/[address] [facility] Heart Rate 53 {beats}/min 10/10/[address] [facility] Respitory Rate 18 10/10/[address] [facility] Systolic (mm Hg) 105 10/10/2018 [place] Diastolic (mm Hg) 56 10/10/2018 [place] Temperature Oral (F) 98.2 F 10/10/[address] [facility] Rate 50 {beats}/min 10/10/[address] [facility] Respitory Rate 18 10/10/[address] [facility] Systolic (mm Hg) 159 10/10/2018 [place] Diastolic (mm Hg) 78 10/10/2018 [place] Temperature Oral (F) 98.6 F 10/10/[address] [facility] [address] Heart Rate 64 {beats}/min 10/10/[address] [facility] Respitory Rate 16 10/10/[address] [facility] Systolic (mm Hg) 123 10/09/2018 [place] Diastolic (mm Hg) 65 10/09/2018 [place] Temperature Oral (F) 98.6 F 10/09/[address] [facility] [address] Heart Rate 58 {beats}/min 10/09/[address] [facility] Respitory Rate 20 10/09/[address] [facility] Systolic (mm Hg) 103 10/09/2018 [place] Diastolic (mm Hg) 49 10/09/2018 [place] Temperature Oral (F) 98.7 F 10/09/[address] [facility] Heart Rate 60 {beats}/min 10/09/[address] [facility] Respitory Rate 18 10/09/[address] [facility] Systolic (mm Hg) 119 10/08/2018 [place] Diastolic (mm Hg) 59 10/08/2018 [place] Temperature Oral (F) 97 F 10/08/[address] [facility] [address] Heart Rate 69 {beats}/min 10/08/[address] [facility] Respitory Rate 18 10/08/[address] [facility] Systolic (mm Hg) 118 10/08/2018 [place] Diastolic (mm Hg) 57 10/08/2018 [place] Temperature Oral (F) 98.4 F 10/08/[address] [facility] Heart Rate 50 {beats}/min 10/08/[address] [facility] Respitory Rate 18 10/08/[address] [facility] Systolic (mm Hg) 118 10/08/2018 [place] Diastolic (mm Hg) 57 10/08/2018 [place] Heart Rate 50 {beats}/min 10/08/[address] [facility] Systolic (mm Hg) 127 10/08/2018 [place] Diastolic (mm Hg) 64 10/08/2018 [place] Temperature Oral (F) 98.2 F 10/08/[address] [facility] [address] [facility] Rate 62 {beats}/min 10/08/[address] [facility] Respitory Rate 16 10/08/[address] [facility] [address] [facility] Systolic (mm Hg) 105 10/07/2018 [place] Diastolic (mm Hg) 63 10/07/2018 [place] Temperature Oral (F) 97 F 10/07/[address] [facility] Rate 64 {beats}/min 10/07/[address] [facility] Respitory Rate 18 10/07/[address] [facility] Systolic (mm Hg) 122 10/07/2018 [place] Diastolic (mm Hg) 58 10/07/2018 [place] Temperature Oral (F) 98.2 F 10/07/[address] [facility] Rate 49 {beats}/min 10/07/[address] [facility] Respitory Rate 16 10/07/[address] [facility] Systolic (mm Hg) 122 10/07/2018 [place] Diastolic (mm Hg) 58 10/07/2018 [place] Heart Rate 49 {beats}/min 10/07/[address] [facility] Systolic (mm Hg) 114 10/07/2018 [place] Diastolic (mm Hg) 55 10/07/2018 [place] Temperature Oral (F) 98.2 F 10/07/[address] [facility] Rate 60 {beats}/min 10/07/[address] [facility] Respitory Rate 18 10/07/[address] [facility] Systolic (mm Hg) 107 10/06/2018 [place] Diastolic (mm Hg) 57 10/06/2018 [place] Temperature Oral (F) 98.6 F 10/06/[address] [facility] Rate 50 {beats}/min 10/06/[address] [facility] Respitory Rate 16 10/06/[address] [facility] Systolic (mm Hg) 107 10/06/2018 [place] Diastolic (mm Hg) 57 10/06/2018 [place] Heart Rate 50 {beats}/min 10/06/[address] [facility] Systolic (mm Hg) 108 10/06/2018 [place] Diastolic (mm Hg) 57 10/06/2018 [place] Temperature Oral (F) 98.4 F 10/06/[address] [facility] Rate 62 {beats}/min 10/06/[address] [facility] Respitory Rate 18 10/06/[address] [facility] Systolic (mm Hg) 121 10/05/2018 [place] Diastolic (mm Hg) 62 10/05/2018 [place] Temperature Oral (F) 98.6 F 10/05/[address] [facility] Rate 58 {beats}/min 10/05/[address] [facility] Respitory Rate 16 10/05/[address] [facility] Systolic (mm Hg) 111 10/04/2018 [place] Diastolic (mm Hg) 56 10/04/2018 [place] Temperature Oral (F) 98.6 F 10/04/[address] [facility] Rate 53 {beats}/min 10/04/[address] [facility] Respitory Rate 18 10/04/[address] [facility] Systolic (mm Hg) 99 10/04/2018 [place] Diastolic (mm Hg) 52 10/04/2018 [place] Heart Rate 44 {beats}/min 10/04/[address] [facility] Systolic (mm Hg) 105 10/04/2018 [place] Diastolic (mm Hg) 59 10/04/2018 [place] Temperature Oral (F) 98.7 F 10/04/[address] [facility] Rate 58 {beats}/min 10/04/[address] [facility] [address] [facility] Respitory Rate 16 10/04/[address] [facility] Systolic (mm Hg) 112 10/03/2018 [place] Diastolic (mm Hg) 55 10/03/2018 [place] Temperature Oral (F) 97 F 10/03/[address] [facility] Rate 62 {beats}/min 10/03/[address] [facility] Respitory Rate 18 10/03/[address] [facility] Systolic (mm Hg) 112 10/03/2018 [place] Diastolic (mm Hg) 60 10/03/2018 [place] Heart Rate 58 {beats}/min 10/03/[address] [facility] Systolic (mm Hg) 156 10/03/2018 [place] Diastolic (mm Hg) 71 10/03/2018 [place] Temperature Oral (F) 98.6 F 10/03/[address] [facility] Rate 50 {beats}/min 10/03/[address] [facility] Respitory Rate 20 10/03/[address] [facility] Systolic (mm Hg) 123 10/02/2018 [place] Diastolic (mm Hg) 59 10/02/2018 [place] Temperature Oral (F) 98.9 F 10/02/[address] [facility] Rate 52 {beats}/min 10/02/[address] [facility] Respitory Rate 16 10/02/[address] [facility] Systolic (mm Hg) 121 10/02/2018 [place] Diastolic (mm Hg) 68 10/02/2018 [place] Temperature Oral (F) 98.6 F 10/02/[address] [facility] Rate 53 {beats}/min 10/02/[address] [facility] Respitory Rate 16 10/02/[address] [facility] Systolic (mm Hg) 121 10/02/2018 [place] Diastolic (mm Hg) 68 10/02/2018 [place] Heart Rate 53 {beats}/min 10/02/[address] [facility] [address] [facility] Systolic (mm Hg) 140 10/02/2018 [place] Diastolic (mm Hg) 63 10/02/2018 [place] Temperature Oral (F) 98.2 F 10/02/[address] [facility] Rate 58 {beats}/min 10/02/[address] [facility] Respitory Rate 16 10/02/[address] [facility] Systolic (mm Hg) 135 10/02/2018 [place] Diastolic (mm Hg) 67 10/02/2018 [place] Temperature Oral (F) 98.7 F 10/02/[address] [facility] Respitory Rate 18 10/02/[address] [facility] [address] [facility] Heart Rate 57 {beats}/min 10/02/[address] [facility] [address] [facility] Weight 216 10/01/2018 [facility] Systolic (mm Hg) 146 07/26/2017 [place] Diastolic (mm Hg) 70 07/26/2017 [place] Temperature Oral (F) 97.8 F 07/26/[address] [facility] Heart Rate 69 {beats}/min 07/26/[address] [facility] [address] [facility] Respitory Rate 16 07/26/[address] [facility] [address] [facility] Systolic (mm Hg) 96 07/26/2017 [place] Diastolic (mm Hg) 52 07/26/2017 [place] Temperature Oral (F) 97.8 F 07/26/[address] [facility] Rate 68 {beats}/min 07/26/[address] [facility] [address] [facility] Respitory Rate 18 07/26/[address] [facility] [address] [facility] Systolic (mm Hg) 111 07/25/2017 [place] Diastolic (mm Hg) 67 07/25/2017 [place] Temperature Oral (F) 98.4 F 07/25/[address] [facility] Rate 86 {beats}/min 07/25/[address] [facility] [address] [facility] Respitory Rate 18 07/25/[address] [facility] [address] [facility] Systolic (mm Hg) 109 07/25/2017 [place] Diastolic (mm Hg) 53 07/25/2017 [place] Temperature Oral (F) 97.8 F 07/25/[address] [facility] Rate 67 {beats}/min 07/25/[address] [facility] Respitory Rate 67 07/25/[address] [facility] Systolic (mm Hg) 136 07/24/2017 [place] Diastolic (mm Hg) 70 07/24/2017 [place] Temperature Oral (F) 99.1 F 07/24/[address] [facility] Rate 81 {beats}/min 07/24/[address] [facility] [address] [facility] Respitory Rate 20 07/24/[address] [facility] [address] [facility] Systolic (mm Hg) 150 07/24/2017 [place] Diastolic (mm Hg) 77 07/24/2017 [place] Temperature Oral (F) 98.6 F 07/24/[address] [facility] Rate 95 {beats}/min 07/24/[address] [facility] Respitory Rate 18 07/24/[address] [facility] [address] [facility] Systolic (mm Hg) 120 07/24/2017 [place] Diastolic (mm Hg) 50 07/24/2017 [place] Temperature Oral (F) 98 F 07/24/[address] [facility] Rate 82 {beats}/min 07/24/[address] [facility] [address] [facility] Respitory Rate 18 07/24/[address] [facility] Systolic (mm Hg) 135 07/24/2017 [place] Diastolic (mm Hg) 61 07/24/2017 [place] Temperature Oral (F) 98 F 07/24/[address] [facility] Rate 75 {beats}/min 07/24/[address] [facility] [address] [facility] Respitory Rate 18 07/24/[address] [facility] [address] [facility] Systolic (mm Hg) 112 07/23/2017 [place] Diastolic (mm Hg) 59 07/23/2017 [place] Temperature Oral (F) 99.8 F 07/23/[address] [facility] Rate 83 {beats}/min 07/23/[address] [facility] Respitory Rate 18 07/23/[address] [facility] Systolic (mm Hg) 133 07/22/2017 [place] Diastolic (mm Hg) 67 07/22/2017 [place] Temperature Oral (F) 98.2 F 07/22/[address] [facility] Rate 70 {beats}/min 07/22/[address] [facility] Respitory Rate 18 07/22/[address] [facility] Systolic (mm Hg) 112 07/22/2017 [place] Diastolic (mm Hg) 61 07/22/2017 [place] Temperature Oral (F) 98 F 07/22/[address] [facility] Rate 62 {beats}/min 07/22/[address] [facility] [address] [facility] Respitory Rate 20 07/22/[address] [facility] Systolic (mm Hg) 118 07/21/2017 [place] Diastolic (mm Hg) 55 07/21/2017 [place] Temperature Oral (F) 97.7 F 07/21/[address] [facility] Rate 67 {beats}/min 07/21/[address] [facility] Respitory Rate 18 07/21/[address] [facility] [address] [facility] Systolic (mm Hg) 115 07/21/2017 [place] Diastolic (mm Hg) 56 07/21/2017 [place] Temperature Oral (F) 97.7 F 07/21/[address] [facility] Rate 74 {beats}/min 07/21/[address] [facility] [address] [facility] Respitory Rate 18 07/21/[address] [facility] [address] [facility] Systolic (mm Hg) 146 07/20/2017 [place] Diastolic (mm Hg) 80 07/20/2017 [place] Temperature Oral (F) 98.6 F 07/20/[address] [facility] Rate 83 {beats}/min 07/20/[address] [facility] Respitory Rate 20 07/20/[address] [facility] [address] [facility] Systolic (mm Hg) 136 07/20/2017 [place] Diastolic (mm Hg) 76 07/20/2017 [place] Temperature Oral (F) 97.8 F 07/20/[address] [facility] Rate 82 {beats}/min 07/20/[address] [facility] [address] [facility] Respitory Rate 20 07/20/[address] [facility] Systolic (mm Hg) 109 07/20/2017 [place] Diastolic (mm Hg) 52 07/20/2017 [place] Temperature Oral (F) 97.3 F 07/20/[address] [facility] Heart Rate 63 {beats}/min 07/20/[address] [facility] Respitory Rate 97.3 07/20/[address] [facility] [address] [facility] Systolic (mm Hg) 139 07/19/2017 [place] Diastolic (mm Hg) 72 07/19/2017 [place] Temperature Oral (F) 98.4 F 07/19/[address] [facility] Heart Rate 88 {beats}/min 07/19/[address] [facility] [address] [facility] Respitory Rate 20 07/19/[address] [facility] Systolic (mm Hg) 143 07/19/2017 [place] Diastolic (mm Hg) 79 07/19/2017 [place] Temperature Oral (F) 98.7 F 07/19/[address] [facility] Rate 87 {beats}/min 07/19/[address] [facility] [address] [facility] Respitory Rate 22 07/19/[address] [facility] [address] [facility] Systolic (mm Hg) 127 07/19/2017 [place] Diastolic (mm Hg) 59 07/19/2017 [place] Temperature Oral (F) 98.1 F 07/19/[address] [facility] Rate 73 {beats}/min 07/19/[address] [facility] Respitory Rate 18 07/19/[address] [facility] Systolic (mm Hg) 119 07/18/2017 [place] Diastolic (mm Hg) 56 07/18/2017 [place] Temperature Oral (F) 99.6 F 07/18/[address] [facility] Rate 78 {beats}/min 07/18/[address] [facility] Respitory Rate 18 07/18/[address] [facility] Systolic (mm Hg) 138 07/18/2017 [place] Diastolic (mm Hg) 79 07/18/2017 [place] Temperature Oral (F) 98.2 F 07/18/[address] [facility] Rate 88 {beats}/min 07/18/[address] [facility] [address] [facility] Respitory Rate 18 07/18/[address] [facility] [address] [facility] Systolic (mm Hg) 128 07/18/2017 [place] Diastolic (mm Hg) 57 07/18/2017 [place] Temperature Oral (F) 98.7 F 07/18/[address] [facility] Rate 77 {beats}/min 07/18/[address] [facility] [address] [facility] Respitory Rate 18 07/18/[address] [facility] Systolic (mm Hg) 126 07/17/2017 [place] Diastolic (mm Hg) 68 07/17/2017 [place] Temperature Oral (F) 98.4 F 07/17/[address] [facility] Rate 74 {beats}/min 07/17/[address] [facility] [address] [facility] Respitory Rate 18 07/17/[address] [facility] [address] [facility] Systolic (mm Hg) 112 07/17/2017 [place] Diastolic (mm Hg) 56 07/17/2017 [place] Temperature Oral (F) 98.2 F 07/17/[address] [facility] Rate 66 {beats}/min 07/17/[address] [facility] [address] [facility] Respitory Rate 18 07/17/[address] [facility] Systolic (mm Hg) 137 07/16/2017 [place] Diastolic (mm Hg) 74 07/16/2017 [place] Temperature Oral (F) 98.2 F 07/16/[address] [facility] Rate 78 {beats}/min 07/16/[address] [facility] Respitory Rate 18 07/16/[address] [facility] Systolic (mm Hg) 139 07/16/2017 [place] Diastolic (mm Hg) 63 07/16/2017 [place] Temperature Oral (F) 98.7 F 07/16/[address] [facility] Rate 77 {beats}/min 07/16/[address] [facility] Respitory Rate 20 07/16/[address] [facility] Systolic (mm Hg) 117 07/16/2017 [place] Diastolic (mm Hg) 60 07/16/2017 [place] Temperature Oral (F) 98 F 07/16/[address] [facility] Heart Rate 68 {beats}/min 07/16/[address] [facility] Respitory Rate 18 07/16/[address] [facility] Systolic (mm Hg) 133 07/15/2017 [place] Diastolic (mm Hg) 79 07/15/2017 [place] Temperature Oral (F) 98.2 F 07/15/[address] [facility] Rate 85 {beats}/min 07/15/[address] [facility] Respitory Rate 18 07/15/[address] [facility] Systolic (mm Hg) 95 07/15/2017 [place] Diastolic (mm Hg) 64 07/15/2017 [place] Temperature Oral (F) 98.4 F 07/15/[address] [facility] Rate 72 {beats}/min 07/15/[address] [facility] Respitory Rate 18 07/15/[address] [facility] Systolic (mm Hg) 99 07/15/2017 [place] Diastolic (mm Hg) 61 07/15/2017 [place] Temperature Oral (F) 98.6 F 07/15/[address] [facility] Rate 75 {beats}/min 07/15/[address] [facility] Respitory Rate 18 07/15/[address] [facility] Systolic (mm Hg) 111 07/14/2017 [place] Diastolic (mm Hg) 60 07/14/2017 [place] Temperature Oral (F) 98.6 F 07/14/[address] [facility] Rate 75 {beats}/min 07/14/[address] [facility] Respitory Rate 18 07/14/[address] [facility] Systolic (mm Hg) 119 07/14/2017 [place] Diastolic (mm Hg) 57 07/14/2017 [place] Temperature Oral (F) 97.8 F 07/14/[address] [facility] Rate 64 {beats}/min 07/14/[address] [facility] Respitory Rate 18 07/14/[address] [facility] Systolic (mm Hg) 110 07/14/2017 [place] Diastolic (mm Hg) 50 07/14/2017 [facility] Temperature Oral (F) 98.4 F 07/14/[address] [facility] Heart Rate 81 {beats}/min 07/14/[address] [facility] Respitory Rate 18 07/14/[address] [facility] Systolic (mm Hg) 103 07/13/2017 [place] Diastolic (mm Hg) 56 07/13/2017 [facility] Temperature Oral (F) 98.7 F 07/13/[address] [facility] Heart Rate 73 {beats}/min 07/13/[address] [facility] Respitory Rate 18 07/13/[address] [facility] Systolic (mm Hg) 120 07/13/2017 [place] Diastolic (mm Hg) 66 07/13/2017 [facility] Temperature Oral (F) 98.2 F 07/13/[address] [facility] Rate 71 {beats}/min 07/13/[address] [facility] Respitory Rate 18 07/13/[address] [facility] Systolic (mm Hg) 128 07/13/2017 [place] Diastolic (mm Hg) 60 07/13/2017 [facility] Temperature Oral (F) 97.9 F 07/13/[address] [facility] Rate 79 {beats}/min 07/13/[address] [facility] Respitory Rate 18 07/13/[address] [facility] Systolic (mm Hg) 140 07/12/2017 [place] Diastolic (mm Hg) 75 07/12/2017 [facility] Temperature Oral (F) 98.9 F 07/12/[address] [facility] Rate 81 {beats}/min 07/12/[address] [facility] Respitory Rate 20 07/12/[address] [facility] Systolic (mm Hg) 105 07/12/2017 [place] Diastolic (mm Hg) 55 07/12/2017 [facility] Temperature Oral (F) 98 F 07/12/[address] [facility] Heart Rate 60 {beats}/min 07/12/[address] [facility] Respitory Rate 16 07/12/[address] [facility] Systolic (mm Hg) 115 07/12/2017 [place] Diastolic (mm Hg) 59 07/12/2017 [facility] Temperature Oral (F) 98.2 F 07/12/[address] [facility] Rate 79 {beats}/min 07/12/[address] [facility] Respitory Rate 20 07/12/[address] [facility] Systolic (mm Hg) 138 07/11/2017 [place] Diastolic (mm Hg) 74 07/11/2017 [place] Temperature Oral (F) 98.9 F 07/11/[address] [facility] Heart Rate 72 {beats}/min 07/11/[address] [facility] Respitory Rate 18 07/11/[address] [facility] Systolic (mm Hg) 102 07/11/2017 [place] Diastolic (mm Hg) 56 07/11/2017 [facility] Temperature Oral (F) 97.8 F 07/11/[address] [facility] Heart Rate 76 {beats}/min 07/11/[address] [facility] Respitory Rate 19 07/11/[address] [facility] [address] [facility] Systolic (mm Hg) 132 07/10/2017 [place] Diastolic (mm Hg) 66 07/10/2017 [place] Temperature Oral (F) 98.4 F 07/10/[address] [facility] [address] Heart Rate 83 {beats}/min 07/10/[address] [facility] [address] [facility] Respitory Rate 20 07/10/[address] [facility] [address] [facility] Systolic (mm Hg) 117 07/10/2017 [place] Diastolic (mm Hg) 61 07/10/2017 [place] Temperature Oral (F) 98.4 F 07/10/[address] [facility] Heart Rate 63 {beats}/min 07/10/[address] [facility] Respitory Rate 16 07/10/[address] [facility] Systolic (mm Hg) 110 07/10/2017 [place] Diastolic (mm Hg) 52 07/10/2017 [facility] Temperature Oral (F) 97.8 F 07/10/[address] [facility] Heart Rate 74 {beats}/min 07/10/[address] [facility] Respitory Rate 18 07/10/[address] [facility] Systolic (mm Hg) 112 07/09/2017 [place] Diastolic (mm Hg) 64 07/09/2017 [place] Temperature Oral (F) 100.2 F 07/09/[address] [facility] Heart Rate 87 {beats}/min 07/09/[address] [facility] Respitory Rate 20 07/09/[address] [facility] Systolic (mm Hg) 98 07/09/2017 [place] Diastolic (mm Hg) 58 07/09/2017 [place] Temperature Oral (F) 98.4 F 07/09/[address] [facility] Heart Rate 73 {beats}/min 07/09/[address] [facility] Respitory Rate 19 07/09/[address] [facility] Systolic (mm Hg) 119 07/09/2017 [place] Diastolic (mm Hg) 66 07/09/2017 [place] Temperature Oral (F) 98.7 F 07/09/[address] [facility] Heart Rate 66 {beats}/min 07/09/[address] [facility] Respitory Rate 16 07/09/[address] [facility] Systolic (mm Hg) 124 07/08/2017 [place] Diastolic (mm Hg) 59 07/08/2017 [place] Temperature Oral (F) 99.1 F 07/08/[address] [facility] Heart Rate 85 {beats}/min 07/08/[address] [facility] Respitory Rate 18 07/08/[address] [facility] Systolic (mm Hg) 111 07/08/2017 [place] Diastolic (mm Hg) 56 07/08/2017 [place] Temperature Oral (F) 99.1 F 07/08/[address] [facility] Heart Rate 68 {beats}/min 07/08/[address] [facility] Respitory Rate 24 07/08/[address] [facility] Weight 223 07/08/[facility] Systolic (mm Hg) 135 07/08/2017 [place] Diastolic (mm Hg) 55 07/08/2017 [place] Temperature Oral (F) 97.3 F 07/08/[address] [facility] Heart Rate 77 {beats}/min 07/08/[address] [facility] Respitory Rate 18 07/08/[address] [facility] Systolic (mm Hg) 128 07/07/2017 [place] Diastolic (mm Hg) 62 07/07/2017 [place] Temperature Oral (F) 99.1 F 07/07/[address] [facility] Heart Rate 85 {beats}/min 07/07/[address] [facility] Respitory Rate 20 07/07/[address] [facility] Systolic (mm Hg) 103 07/07/2017 [place] Diastolic (mm Hg) 53 07/07/2017 [place] Temperature Oral (F) 98.4 F 07/07/[address] [facility] Heart Rate 59 {beats}/min 07/07/[address] [facility] Respitory Rate 20 07/07/[address] [facility] Systolic (mm Hg) 104 07/07/2017 [place] Diastolic (mm Hg) 52 07/07/2017 [place] Temperature Oral (F) 100.7 F 07/07/[address] [facility] Heart Rate 86 {beats}/min 07/07/[address] [facility] Respitory Rate 18 07/07/[address] [facility] Systolic (mm Hg) 113 07/06/2017 [place] Diastolic (mm Hg) 49 07/06/2017 [place] Temperature Oral (F) 98.7 F 07/06/[address] [facility] Heart Rate 73 {beats}/min 07/06/[address] [facility] Respitory Rate 21 07/06/[address] [facility] Systolic (mm Hg) 148 07/06/2017 [place] Diastolic (mm Hg) 79 07/06/2017 [place] Temperature Oral (F) 98.6 F 07/06/[address] [facility] Heart Rate 79 {beats}/min 07/06/[address] [facility] Respitory Rate 20 07/06/[address] [facility] Systolic (mm Hg) 109 07/05/2017 [place] Diastolic (mm Hg) 58 07/05/2017 [place] Temperature Oral (F) 98.4 F 07/05/[address] [facility] Heart Rate 78 {beats}/min 07/05/[address] [facility] Respitory Rate 20 07/05/[address] [facility] Systolic (mm Hg) 99 07/05/2017 [place] Diastolic (mm Hg) 44 07/05/2017 [place] Temperature Oral (F) 98.6 F 07/05/[address] [facility] Heart Rate 69 {beats}/min 07/05/[address] [facility] [address] [facility] Respitory Rate 22 07/05/[address] [facility] Systolic (mm Hg) 105 07/05/2017 [place] Diastolic (mm Hg) 55 07/05/2017 [place] Temperature Oral (F) 98.4 F 07/05/[address] [facility] Heart Rate 72 {beats}/min 07/05/[address] [facility] Respitory Rate 18 07/05/[address] [facility] Systolic (mm Hg) 87 07/04/2017 [place] Diastolic (mm Hg) 42 07/04/2017 [place] Temperature Oral (F) 98.4 F 07/04/[address] [facility] Heart Rate 78 {beats}/min 07/04/[address] [facility] Respitory Rate 20 07/04/[address] [facility] Systolic (mm Hg) 122 07/04/2017 [place] Diastolic (mm Hg) 56 07/04/2017 [place] Temperature Oral (F) 98 F 07/04/[address] [facility] Heart Rate 71 {beats}/min 07/04/[address] [facility] Respitory Rate 20 07/04/[address] [facility] Systolic (mm Hg) 122 07/04/2017 [place] Diastolic (mm Hg) 56 07/04/2017 [place] Heart Rate 71 {beats}/min 07/04/[address] [facility] Systolic (mm Hg) 128 07/04/2017 [place] Diastolic (mm Hg) 52 07/04/2017 [place] Temperature Oral (F) 98 F 07/04/[address] [facility] Heart Rate 86 {beats}/min 07/04/[address] [facility] Respitory Rate 20 07/04/[address] [facility] Systolic (mm Hg) 98 07/04/2017 [place] Diastolic (mm Hg) 54 07/04/2017 [place] Systolic (mm Hg) 91 07/03/2017 [place] Diastolic (mm Hg) 49 07/03/2017 [place] Temperature Oral (F) 98.6 F 07/03/[address] [facility] Heart Rate 83 {beats}/min 07/03/[address] [facility] Respitory Rate 20 07/03/[address] [facility] Temperature Oral (F) 98.6 F 07/03/[address] [facility] Heart Rate 83 {beats}/min 07/03/[address] [facility] Respitory Rate 18 07/03/[address] [facility] Height 63 07/03/2017 [facility] Weight 240 01/03/2016 eCW: Gaurav Zacarias eta Height 63 01/03/2016 eCW: Gaurav Zacarias eta Diastolic (mm Hg) 88 01/03/2016 eCW: Gaurav Farser Systolic (mm Hg) 128 01/03/2016 eCW: aGurav Gray avaleta Weight 237 10/04/2015 eCW: Gaurav Zacarias eta Height 63 10/04/2015 eCW: Gaurav Zacarias eta Diastolic (mm Hg) 86 10/04/2015 eCW: Gaurav Smithta Systolic (mm Hg) 126 10/04/2015 eCW: Gaurav Gray avaleta Weight 231 07/07/2015 eCW: Gaurav Zacarias eta Height 63 07/07/2015 eCW: Gaurav Zacarias eta Weight 228 06/07/2015 eCW: Gaurav wagner Height 63 06/07/2015 eCW: Gaurav Lebronval eta Diastolic (mm Hg) 100 06/07/2015 eCW: Gaurav Fraser Systolic (mm Hg) 150 06/07/2015 eCW: Gaurav casealeta Weight 234 03/08/2015 eCW: Gaurav wagner Height 63 03/08/2015 eCW: Gaurav Lebronval eta Diastolic (mm Hg) 86 03/08/2015 eCW: Gaurav Fraser Systolic (mm Hg) 124 03/08/2015 eCW: Gaurav casealeta Weight 231 01/04/2015 eCW: Gaurav wagner Height 63 01/04/2015 eCW: Gaurav Zacarias eta Diastolic (mm Hg) 76 01/04/2015 eCW: Gaurav Fraser Systolic (mm Hg) 116 01/04/2015 eCW: Gaurav casealebambi Weight 230 12/24/2014 eCW: Gaurav wagner Height 63 12/24/2014 eCW: Gaurav Lebronsmita kristy Diastolic (mm Hg) 80 12/24/2014 eCW: Gaurav Fraser Systolic (mm Hg) 110 12/24/2014 eCW: Gaurav casealebambi Weight 233 11/05/2014 eCW: Gaurav wagner Height 63 11/05/2014 eCW: Gaurav wagner Diastolic (mm Hg) 74 11/05/2014 eCW: Gaurav Fraser Systolic (mm Hg) 118 11/05/2014 eCW: Gaurav casealebambi Weight 233 11/05/2014 eCW: Gaurav wagner Height 63 11/05/2014 eCW: Gaurav Vival eta Diastolic (mm Hg) 74 11/05/2014 eCW: Gaurav Fraser Systolic (mm Hg) 118 11/05/2014 eCW: Gaurav casealeta Weight 228 03/23/2014 eCW: Gaurav wagner Height 63 03/23/2014 eCW: Gaurav Vival eta Diastolic (mm Hg) 86 03/23/2014 eCW: Gaurav Smithta Systolic (mm Hg) 130 03/23/2014 eCW: Gaurav casealebambi Weight 233 02/04/2014 eCW: Gaurav wagner Height 63 02/04/2014 eCW: Gaurav Lebronval eta Diastolic (mm Hg) 90 02/04/2014 eCW: Gaurav Bria Systolic (mm Hg) 120 02/04/2014 eCW: Gaurav ceballos Weight 230 12/04/2013 eCW: Gaurav wagner Height 63 12/04/2013 eCW: Gaurav wagner Diastolic (mm Hg) 86 12/04/2013 eCW: Gaurav Fraser Systolic (mm Hg) 120 12/04/2013 eCW: Gaurav ceballos Weight 228 10/08/2013 [facility] [...] p Temperature Oral (F) 99.3 F 12/15/2010 [facility] Heart Rate 96 12/15/2010 [facility] Systolic (mm Hg) 135 12/15/2010 [facility] Diastolic (mm Hg) 91 12/15/2010 [facility] Weight 224 12/01/2010 [facility] Temperature Oral (F) 99.6 F 12/01/2010 [facility] Heart Rate 81 12/01/2010 [facility] Systolic (mm Hg) 131 12/01/2010 [facility] Diastolic (mm Hg) 90 12/01/2010 [facility] Height 63 09/22/2010 [facility] Weight 223 09/22/2010 [facility] Temperature Oral (F) 99.2 F 09/22/2010 [facility] Heart Rate 82 09/22/2010 [...] Group Temperature Oral (F) 98.9 F 06/27/2010 [facility] Heart Rate 79 06/27/2010 [facility] Systolic (mm Hg) 114 06/27/2010 [facility] Diastolic (mm Hg) 77 06/27/2010 [facility] Temperature Oral (F) 99.4 F 06/21/2010 [facility] Heart Rate 83 06/21/2010 [...] For Provider Date Date Visit [facility] Visit [id number] Fernanda 07/02 07/02 [place] [id number] [facility] diane Kumari MD [facility] Lab Report [id number] Fernanda 07/02 07/02 [place] [id number] [facility] Medic al MD [place] [facility] Office Visit [id number] Fernanda 10/08 10/08 [place] [id number] [facility] Medic diane Kumari MD [facility] [place], Annual 9i0hetq0-4l 12/04 12/04 eC W: Gaurav Weiss cb-48db-92a /2013 [place] e [id number] [place] et[facility] 5d4 [place], Annual [id number] 12/04 12/04 eC W: Gaurav Weiss 3b-4423-9db /2013 [place] e 1-8o13o7a02 [facility] et[facility] 533 [place], Annual pf9m62c6-a0 12/04 12/04 eC W: Gaurav Weiss 48-0z36-58a /2013 [place] e 7-0r1684l74 [facility] et[facility] 4d1 [place], Annual [id number] 12/04 12/04 eC W: Gaurav Weiss 8d-47af-a73 /2013 [place] chun [id number] [facility] c41 [place], Annual [id number] 12/04 12/04 eC W: Gaurav Weiss d9-6q14-t23 /2013 [place] chun 5-261d438h4 [facility] eta 41a [place], Annual [id number] 12/04 12/04 eC W: Gaurav GRANT Pysical 92-489a-8d1 /2013 [place] e [id number] [place] et[facility] ef4 [place], Annual 7wti7x0p-c2 12/04 12/04 eC W: Gaurav GRANT Pysical 60-420a-sebas /2013 [place] e e-441mre321 [facility] eta bf1 [place], Annual [id number] 12/04 12/04 eC W: Gaurav GRANT Pysical d8-48r6-187 /2013 [place] e e-pwh00x3qw [facility] eta 376 [place], Annual rfv9jr09-zh 12/04 12/04 eC W: Gaurav GRANT Pysical 48-4266-b15 /2013 [place] chun 5-3n540o8la [place] eta e58 [place], Annual l4z9g0yh-75 12/04 12/04 eC W: Gaurav GRANT Pysical 1e-4423-bd4 /2013 [place] chun b-846l477uq [facility] eta 112 [place], Annual 03eccebc-d1 12/04 12/04 eC W: Gaurav GRANT Pysical 9f-48ab-81d /2013 [place] chun 1-8l2hh47w0 [facility]aval eta 3d0 [place], Annual [id number] 12/04 12/04 eC W: Gaurav GRANT Pysical 89-4790-aeb /2013 [place] chun b-vz0i542q6 [facility] eta 027 [place], Annual 22jd187c-cs 12/04 12/04 eC W: Gaurav GRANT Pysical b8-1c3y-dg0 /2013 [place] e 4-q6588c03r Zaval eta sebas [place], Annual [id number] 12/04 12/04 eC W: Gaurav GRANT Pysical 56-4204-a50 /2013 [place] chun 5-43583m416 [facility] eta a24 [place], Annual 5mr2s72e-8d 12/04 12/04 eC W: Gaurav GRANT Pysical 01-41db-a15 /2013 [place] chun 4-2w0054k9g Zaval eta 40c [place], Annual [id number] 12/04 12/04 eC W: Gaurav GRANT Pysical 79-76e4-v51 /2013 [place] chun 6-196cfafea [facility] et[facility] 007 [place], Annual 5n6z7smg-26 12/04 12/04 eC W: Gaurav Reedsical 77-97x0-837 /2013 [place] chun 6-bn5932612 [facility] et[facility] 899 [place], Annual 6d7mm94s-25 12/04 12/04 eC W: Gaurav Reedsical 4c-2s91-83p /2013 [place] chun [id number] [facility] et[facility] 9e3 [place], Annual [id number] 12/04 12/04 eC W: Gaurav Reedsical 82-9i39-4b7 /2013 [place] chun 0-8z1tf3827 [facility] eta 8b6 [place], Annual [id number] 12/04 12/04 eC W: Gaurav GRANT Pysical 00-4491-868 /2013 [place] chun 9-18p49o798 [facility] eta 84c [place], Annual [id number] 12/04 12/04 eC W: Gaurav Reedsical 91-44ff-a82 /2013 [place] chun 9-9snx5d075 [facility] eta 48c [place], Annual [id number] 12/04 12/04 eC W: Gaurav Reedsical a9-7i15-9uv /2013 [place] chun a-f43mc3g66 [facility] eta c91 [place], Annual [id number] 12/04 12/04 eC W: Gaurav Reedsical 66-7hd4-hrt /2013 [place] chun f-i4u4d6g75 Zaval eta [address] [facility] Lab Report [id number] Fernanda 12/05 12/05 [facility] [address] [facility] Genesis Knight MD [facility] [employer] [place] [facility] [place], Unknown [id number] 12/06 12/06 e CW: Gaurav GRANT 4d-3t69-9c3 /2013 Gaurav macario-[id number] [place] eta 4ff [place], Unknown [id number] 12/06 12/06 e CW: Gaurav GRANT 03-6e6b-v82 /2013 Gaurav 3-7945w8012 [place] eta 565 [place], Unknown [id number] 12/06 12/06 e CW: Gaurav GRANT e1-1xc2-426 /2013 Gaurav 3-31m10875c [place] eta 600 [place], Unknown [id number] 12/06 12/06 e CW: Gaurav GRANT 1e-4041-bbc /2013 Gaurav 8-b50q8mz32 Zaval eta 6b2 [place], Unknown [id number] 12/06 12/06 e CW: Gaurav GRANT cb-5w07-3l5 /2013 Gaurav 6-564114uuu Zaval eta 2c0 [place], Unknown [id number] 12/06 12/06 e CW: Gaurav GRANT db-7j55-thu Gaurav chun-fl3e8m3v2 Zaval eta 7e7 [place], Unknown [id number] 12/06 12/06 e CW: Gaurav GRANT 23-3q28-652 /2013 Gaurav 9-1760676v9 [facility]aval eta 65d [place], Unknown [id number] 12/06 12/06 e CW: Gaurav GRANT 22-456b-91f /2013 Delfino-edc0c6m13 Zaval eta d53 [place], Unknown [id number] 12/06 12/06 e CW: Gaurav GRANT 6c-64b9-6bs /2013 Gaurav chun-0644li9q4 [facility] et[facility] 424 [place], Unknown [id number] 12/06 12/06 e CW: Gaurav GRANT 00-429c-b45 /2013 Elliott-[id number] Zaval eta b3b [place], Unknown [id number] 12/06 12/06 e CW: Gaurav GRANT c9-4066-938 /2013 Gaurav 8-70207fzai [place] et[facility] ab7 [place], Unknown [id number] 12/06 12/06 e CW: Gaurav GRANT 97-50g3-cpg /2013 Angie-71u8g7274 Zaval eta 40e [place], Unknown [id number] 12/06 12/06 e CW: Gaurav GRANT 8e-4412-894 /2013 Gaurav 1-534kcnq75 [place] eta 9b7 [place], Unknown [id number] 12/06 12/06 e CW: Gaurav GRANT a7-58a1-d9u /2013 Gaurav hernandez-493478t0y [facility] et[facility] b61 [place], Unknown [id number] 12/06 12/06 e CW: Gaurav GRANT e8-457a-834 /2013 Gaurav 8-k4e051122 [facility] eta 616 [place], Unknown [id number] 12/06 12/06 e CW: Gaurav GRANT f9-8j65-031 /2013 Gaurav 1-r395hj305 [place] eta f73 [place], Unknown [id number] 12/06 12/06 e CW: Gaurav GRANT 88-9tu9-va7 /2013 Gaurav torres-b5310ji92 [facility] ef3 [place], Unknown [id number] 12/06 12/06 e CW: Gaurav GRANT fd-43eb-ba7 /2013 Gaurav munoz-6jeks6t70 [facility] 6c7 [place], Unknown [id number] 12/06 12/06 e CW: Gaurav GRANT 91-23s1-98c /2013 Gaurav munoz-4tyc63x47 [facility] f84 [place], Unknown [id number] 12/06 12/06 e CW: Gaurav GRANT 9b-1u99-h57 /2013 Gaurav chun-232t06460 [facility] eta 92a [place], Unknown [id number] 12/06 12/06 e CW: Gaurav GRANT c5-434a-9f3 /2013 Gaurav chun-9u43r5f88 [facility] et[facility] d2f [place], Unknown [id number] 12/06 12/06 e CW: Gaurav GRANT 9d-4789-8e4 /2013 Gaurav wolf-ri5f73f27 [facility] eta a9f [place], Unknown [id number] 12/06 12/06 e CW: Gaurav GRANT be-87v2-9e0 Gaurav 5-5346sup1b Zaval eta 5f7 [place], Unknown [id number] 12/06 12/06 e CW: Gaurav GRANT 39-6di8-8ab /2013 Angie-jlai6w91m [facility] eta 7aa Bria, 2 Weeks 2q7s827t-1k 12/18 12/18 e CW: Gaurav GRANT (Reason: ac-44da-ae Evangelina se Thyroid , 9-s523gq41u Za valeta fibromyalgia 231 ,osteoporosi s ) Bria, 2 Weeks d9p9m57g-l6 12/18 12/18 e CW: Gaurav GRANT (Reason: db-1j8j-a4v Eavngelina se Thyroid , 7-5zs4957b0 Za valeta fibromyalgia d33 ,osteoporosi s ) Bria, 2 Weeks 16f372m4-s2 12/18 12/18 e CW: Gaurav GRANT (Reason: bf-2tq7-025 Evangelina se Thyroid , d-3zr1772f4 Za valeta fibromyalgia d70 ,osteoporosi s ) Bria, 2 Weeks [id number] 12/18 12/18 e CW: Gaurav GRANT (Reason: 39-5g67-870 Evangelina se Thyroid , c-h0d7v1c65 Za valeta fibromyalgia abd ,osteoporosi s ) Bria, 2 Weeks 94ai515z-2x 12/18 12/18 e CW: Gaurav GRANT (Reason: 0e-461d-aa Evangelina se Thyroid , f-j3ol3f753 Za valeta fibromyalgia 2d9 ,osteoporosi s ) Bria, 2 Weeks [id number] 12/18 12/18 e CW: Gaurav GRANT (Reason: b5-47ba-80c Evangelina se Thyroid , 9-92b0b7t32 Za valeta fibromyalgia a34 ,osteoporosi s ) Bria, 2 Weeks [id number] 12/18 12/18 e CW: Gaurav GRANT (Reason: 7a-452a-9ca Evangelina se Thyroid , 7-getup5k7n Za valeta fibromyalgia 5ca ,osteoporosi s ) Bria, 2 Weeks 7s1dv7fp-78 12/18 12/18 e CW: Gaurav GRANT (Reason: 6d-4zx5-8d6 Evangelina se Thyroid , 4-xt8v9h261 Za valeta fibromyalgia b57 ,osteoporosi s ) Bria, 2 Weeks e017y6zq-3f 12/18 12/18 e CW: Gaurav GRANT (Reason: f7-3p0l-b28 Evangelina se Thyroid , 8-6168u2d04 Za valeta fibromyalgia 455 ,osteoporosi s ) Bria, 2 Weeks [id number] 12/18 12/18 e CW: Gaurav GRANT (Reason: b2-4bdf-b2a Evangelina se Thyroid , a-7816ip875 Za valeta fibromyalgia fc0 ,osteoporosi s ) Bria, 2 Weeks r4bdm854-c6 12/18 12/18 e CW: Gaurav GRANT (Reason: e4-46ba-bd Evangelina se Thyroid , 7-8s5c221b6 Za valeta fibromyalgia 35d ,osteoporosi s ) Bria, 2 Weeks [id number]-r5 12/18 12/18 e CW: Gaurav GRANT (Reason: 43-4068-95d Evangelina se Thyroid , 7-153m5813s Za valeta fibromyalgia dce ,osteoporosi s ) Bria, 2 Weeks 8u867r0z-x8 12/18 12/18 e CW: Gaurav GRANT (Reason: 15-440c-b Evangelina se Thyroid , 4-putq1uo4a Za valeta fibromyalgia 7ac ,osteoporosi s ) Bria, 2 Weeks 24p82qf9-1n 12/18 12/18 e CW: Gaurav GRANT (Reason: 69-06u2-579 Evangelina se Thyroid , 6-k7097pnc0 Za valeta fibromyalgia 921 ,osteoporosi s ) Bria, 2 Weeks cwfga037-a8 12/18 12/18 e CW: Gaurav GRANT (Reason: 46-4378-914 Evangelina se Thyroid , 6-6lm533345 Za valeta fibromyalgia e1d ,osteoporosi s ) Bria, 2 Weeks 7qn25bzv-87 12/18 12/18 e CW: Gaurav GRANT (Reason: 58-4cfb-8d9 Evangelina se Thyroid , d-r78v869n9 Za valeta fibromyalgia c15 ,osteoporosi s ) Bria, 2 Weeks 46r7o55s-81 12/18 12/18 e CW: Gaurav GRANT (Reason: 18-4906-8ae Evangelina se Thyroid , e-m6q519132 Za valeta fibromyalgia 25e ,osteoporosi s ) Bria, 2 Weeks 45eo617u-64 12/18 12/18 e CW: Gaurav GRANT (Reason: 54-85l9-3t8 Evangelina se Thyroid , 0-j2yj3k72l Za valeta fibromyalgia 0ba ,osteoporosi s ) Bria, 2 Weeks 8681i388-5n 12/18 12/18 e CW: Gaurav GRANT (Reason: 74-4628-a8a Evangelina se Thyroid , d-6v5l8643w Za valeta fibromyalgia f4d ,osteoporosi s ) Bria, 2 Weeks 76189cwp-99 12/18 12/18 e CW: Gaurav GRANT (Reason: 24-410e-aed Evangelina se Thyroid , e-piu9u929v Za valeta fibromyalgia 1f2 ,osteoporosi s ) Bria, 2 Weeks 89a8c7b9-8a 12/18 12/18 e CW: Gaurav GRANT (Reason: 07-4d87-af8 Evangelina se Thyroid , 2-7qhm37200 Za valeta fibromyalgia fd0 ,osteoporosi s ) Bria, 2 Weeks [id number] 12/18 12/18 e CW: Gaurav GRANT (Reason: b5-4029-92b Evangelina se Thyroid , e-544c41768 Za valeta fibromyalgia 252 ,osteoporosi s ) Bria, 2 Weeks 4g1p432j-23 12/18 12/18 e CW: Gaurav GRANT (Reason: 91-41de-aa Evangelina se Thyroid , c-8lc3j51d9 Za valeta fibromyalgia 311 ,osteoporosi s ) [place], Medications [id number] 02/04 02/04 eCW: Gaurav GRANT Issue 0e-434b-a28 Kyle-r4v15788m Zaval eta ce3 [place], Medications [id number] 02/04 02/04 eCW: Gaurav GRANT Issue de-6hk0-bs7 /2013 Gaurav b-7pm423gwn Zaval eta c34 [place], Medications [id number] 02/04 02/04 eCW: Gaurav GRANT Issue a4-447e-bb4 /2013 Gaurav 1-0g6077kea Zaval eta 365 [place], Medications 9f1p76j8-3l 02/04 02/04 eCW: Gaurav GRANT Issue 37-4261-9ca /2013 Gaurav 3-h89a06274 Zaval eta 650 [place], Medications [id number] 02/04 02/04 eCW: Gaurav GRANT Issue f3-470e-8ec /2013 Gaurav 1-tzz3q63sq Zaval eta 6ca [place], Medications [id number] 02/04 02/04 eCW: Gaurav GRANT Issue 9d-471a-8b7 /2013 Kyle-[id number] Zaval eta 83b [place], Medications [id number] 02/04 02/04 eCW: Gaurav GRANT Issue 8b-03t8-78c /2013 Gaurav 1-7x74mh79b Zaval eta 0c5 [place], Medications [id number] 02/04 02/04 eCW: Gaurav GRANT Issue e0-4911-944 /2013 Elliott-382857e4w Zaval eta 208 [place], Medications [id number] 02/04 02/04 eCW: Gaurav GRANT Issue 66-25q3-34v /2013 Elliott-[id number] Zaval eta 813 [place], Medications [id number]-rp 02/04 02/04 eCW: Gaurav GRANT Issue 81-8x98-90y /2013 Gaurav 6-j1j7d1240 Zaval eta 23e [place], Medications rz0cc4p2-72 02/04 02/04 eCW: Gaurav GRANT Issue 8e-4319-francis /2013 Skinny-2970v3eb5 Zaval eta 707 [place], Medications 6emte34t-09 02/04 02/04 eCW: Gaurav GRANT Issue 58-4x5d-4n0 /2013 Gaurav 8-nz02td3pf Zaval eta 621 [place], Medications [id number]-cr 02/04 02/04 eCW: Gaurav GRANT Issue e4-481f-812 /2013 Gaurav 7-v172d0616 Zaval eta ec4 [place], Medications [id number] 02/04 02/04 eCW: Gaurav GRANT Issue 4f-6qw0-a36 /2013 Gaurav 1-at3d8o409 Zaval eta 3a5 [place], Medications 381kvj85-59 02/04 02/04 eCW: Gaurav GRANT Issue b0-43ef-82b /2013 Gaurav 5-6223c6ut1 Zaval eta 6ac [place], Medications [id number] 02/04 02/04 eCW: Gaurav GRANT Issue c7-4162-823 /2013 Skinny-uc1tsgix4 Zaval eta 90c [place], Medications [id number] 02/04 02/04 eCW: Gaurav GRANT Issue f7-0c58-f68 /2013 Gaurav b-jb6m69488 Zaval eta b6f [place], Medications [id number] 02/04 02/04 eCW: Gaurav GRANT Issue 29-43bb-b10 /2013 Kyle-10e16625n Zaval eta 166 [place], Medications [id number]-e2 02/04 02/04 eCW: Gaurav GRANT Issue 22-4348-bef /2013 Gaurav 5-40w455l62 Zaval eta 030 [place], Medications [id number] 02/04 02/04 eCW: Gaurav GRANT Issue a7-82b5-gcv /2013 Gaurav chun-[id number] Zaval eta 84d [place], Medications [id number] 02/04 02/04 eCW: Gaurav GRANT Issue [id number] /2013 Kyle-3k9lksu3a Zaval eta 74b Bria, Medications [id number] 02/04 02/04 eCW: Gaurav GRANT Issue [id number] /2013 Gaurav 0-96ll3o694 Zaval eta b9a Bria, 3 Months [id number] 03/23 03/23 eCW: Gaurav GRANT (Reason: d0-4706-934 [facility] Thyroid , 5-4i9k44r8j Za valeta cholesterol 7eb ) Bria, 3 Months [id number] 03/23 03/23 eCW: Gaurav GRANT (Reason: 83-6nl4-l78 [facility] Thyroid , c-o99r088y9 Za valeta cholesterol 4b6 ) Bria, 3 Months [id number] 03/23 03/23 eCW: Gaurav GRANT (Reason: e8-47bc-aa1 [facility] Thyroid , d-398304efp Za valeta cholesterol 732 ) Bria, 3 Months [id number] 03/23 03/23 eCW: Gaurav GRANT (Reason: 98-4e7o-1fl [facility] Thyroid , c-520me9p53 Za valeta cholesterol 6e6 ) Bria, 3 Months [id number] 03/23 03/23 eCW: Gaurav GRANT (Reason: fd-0e2p-fl0 [facility] Thyroid , a-6f7oz7250 Za valeta cholesterol b74 ) Bria, 3 Months [id number] 03/23 03/23 eCW: Gaurav GRANT (Reason: 79-7in7-w66 [facility] Thyroid , 1-38002ft24 Za valeta cholesterol fee ) Bria, 3 Months [id number] 03/23 03/23 eCW: Gaurav GRANT (Reason: 75-4230-907 [facility] Thyroid , 1-284g01t33 Za valeta cholesterol 567 ) Bria, 3 Months [id number]-7n 03/23 03/23 eCW: Gaurav GRANT (Reason: 06-4961-96a [facility] Thyroid , a-i3j1kz1na Za valeta cholesterol aaa ) Bria, 3 Months 16amxa5x-rn 03/23 03/23 eCW: Gaurav GRANT (Reason: c2-429f-952 [facility] Thyroid , 5-66vo47lsp Za valeta cholesterol 816 ) Bria, 3 Months [id number]-[id number] 03/23 03/23 eCW: Gaurav GRANT (Reason: 82-2k8y-7x1 /2013 [facility] Thyroid , c-[id number] Za valeta cholesterol e3c ) Bria, 3 Months [id number] 03/23 03/23 eCW: Gaurav GRANT (Reason: 73-4cae-b36 /2013 [facility] Thyroid , c-e336xt36a Za valeta cholesterol b8f ) Bria, 3 Months [id number] 03/23 03/23 eCW: Gaurav GRANT (Reason: e8-6a72-ou5 /2013 [facility] Thyroid , e-a29202133 Za valeta cholesterol 49a ) Bria, 3 Months [id number] 03/23 03/23 eCW: Gaurav GRANT (Reason: 5e-13e2-9gi [facility] Thyroid , d-1915r89ix Za valeta cholesterol 9e0 ) Bria, 3 Months [id number] 03/23 03/23 eCW: Gaurav GRANT (Reason: 6f-04q9-ug1 [facility] Thyroid , 9-56vx161do Za valeta cholesterol b20 ) Bria, 3 Months [id number] 03/23 03/23 eCW: Gaurav GRANT (Reason: f4-4cdb-99f /2013 [facility] Thyroid , d-1m21p81i6 Za valeta cholesterol 809 ) Bria, 3 Months [id number] 03/23 03/23 eCW: Gaurav GRANT (Reason: e7-480f-af5 [facility] Thyroid , 4-0n0co5187 Za valeta cholesterol 326 ) Bria, 3 Months [id number] 03/23 03/23 eCW: Gaurav GRANT (Reason: 4c-4228-800 /2013 [facility] Thyroid , a-6l97av0vy Za valeta cholesterol 995 ) Bria, 3 Months [id number] 03/23 03/23 eCW: Gaurav GRANT (Reason: 37-4031-848 /2013 [facility] Thyroid , a-ix19w0519 Za valeta cholesterol 71c ) Bria, 3 Months [id number] 03/23 03/23 eCW: Gaurav GRANT (Reason: 74-497a-93d /2013 [facility] Thyroid , 5-9w429rr5c Za valeta cholesterol 890 ) Bria, 3 Months [id number]-ky 03/23 03/23 eCW: Gaurav GRANT (Reason: dc-4090-bf0 /2013 [facility] Thyroid , 3-q5e8o2140 Za valeta cholesterol 5a1 ) Bria, 3 Months [id number] 03/23 03/23 eCW: Gaurav GRANT (Reason: 92-92q0-870 /2013 [facility] Thyroid , 4-315588z75 Za valeta cholesterol 7b8 ) Bria, Unknown [id number] 05/18 05/18 e CW: Gaurav GRANT 15-0a62-f3l /2014 Gaurav 6-0152l346y Zaval eta ab2 Bria, Unknown [id number] 05/18 05/18 e CW: Gaurav GRANT 3e-40ce-a26 /2014 Gaurav 1-5afc4820r Zaval eta 40f Bria, Unknown [id number] 05/18 05/18 e CW: Gaurav GRANT 11-1s3k-w1h /2014 Gaurav 1-3967l70a3 Zaval eta c5a Bria, Unknown [id number] 05/18 05/18 e CW: Gaurav GRANT fb-415f-b20 /2014 [id number] [facility] et[facility] cristian Bria, Unknown [id number] 05/18 05/18 e CW: Gaurav GRANT 69-429a-900 /2014 Gaurav 8-696604472 [facility] et[facility] 197 [place]ria, Unknown [id number] 05/18 05/18 e CW: Gaurav GRANT 85-4cb9-225 /2014 Gaurav 0-j583ivhe8 [facility] eta 939 Bria, Unknown [id number] 05/18 05/18 e CW: Gaurav GRANT 0c-4491-a9b /2014 Gaurav 2-2t940bg02 [facility] et[facility] 7ec Bria, Unknown [id number] 05/18 05/18 e CW: Gaurav GRANT 43-4043-937 /2014 Delfino-s0g4298s4 [facility] b56 Bria, Unknown [id number] 05/18 05/18 e CW: Gaurav GRANT 82-431b-8cc /2014 Kyle-9r74t0z62 [facility] 1a3 Bria, Unknown [id number] 05/18 05/18 e CW: Gaurav GRANT 89-77b4-479 /2014 Angie-4z1d1bqr6 [facility] et[facility] bd3 Bria, Unknown [id number] 05/18 05/18 e CW: Gaurav GRANT a4-82i7-vc7 /2014 Gaurav 9-bp5r3tr01 [facility] et[facility] 265 Bria, Unknown [id number]-02 05/18 05/18 e CW: Gaurav GRANT e8-425a-a0a /2014 Gaurav 9-2d9qx55f0 [facility] et[facility] 6c5 Bria, Unknown [id number] 05/18 05/18 e CW: Gaurav GRANT ee-4172-bd6 /2014 Gaurav 7-e9b8l5vpp [facility] et[facility] 0db Bria, Unknown [id number] 05/18 05/18 e CW: Gaurav GRANT 07-4198-a7d /2014 Elliott-5mf3u05ar [facility] et[facility] a56 Bria, Unknown [id number] 05/18 05/18 e CW: Gaurav GRANT 3e-4546-b0f /2014 Gaurav 3-864i2712z [facility] et[facility] 701 [place], Unknown [id number] 05/18 05/18 e CW: Gaurav GRANT ec-404f-bf3 /2014 Gaurav 2-40tf0z9y7 [facility] 1c2 Bria, Unknown [id number] 05/18 05/18 e CW: Gaurav GRANT c3-19h7-3a7 /2014 Gaurav 5-a27gpt2u8 [facility] et[facility] 767 Bria, Unknown [id number]-y8 05/18 05/18 e CW: Gaurav GRANT 3b-46cf-852 /2014 Gaurav 4-5p61f8041 [facility] b2b Bria, Unknown [id number] 05/18 05/18 e CW: Gaurav GRANT 41-8r24-7i0 /2014 Gaurav b-cg51xdo7h [facility] et[facility] 037 Bria, Unknown [id number] 05/18 05/18 e CW: Gaurav GRANT 52-2is5-bv0 /2014 Gaurav 5-3o5s3k627 [facility] 4c2 Bria, 3M X HTN, i0bv7249-5l 06/22 06/22 eCW: Gaurav GRANT Hyperlipidem 9c-9l32-gsl /2014 Gaurav doherty , myalgia d-9u79s917r Bria 518 Bria, 3M X HTN, [id number] 06/22 06/22 eCW: Gaurav GRANT Hyperlipidem bc-420a-842 /2014 Gaurav ia , myalgia 0-dq85m9oz0 Bria ec9 Bria, 3M X HTN, [id number] 06/22 06/22 eCW: Gaurav GRANT Hyperlipidem 89-85b7-6g5 /2014 Gaurav ia , myalgia 2-1ut1f6lb9 Bria a1a Bria, 3M X HTN, p59nj8om-c8 06/22 06/22 eCW: Gaurav GRANT Hyperlipidem 22-1z32-740 /2014 Gaurav ia , myalgia b-51u15wq36 Bria 18f Bria, 3M X HTN, q51367e2-6m 06/22 06/22 eCW: Gaurav GRANT Hyperlipidem 1d-405e-b90 /2014 Gaurav ia , myalgia 3-296o08567 Bria 266 Bria, 3M X HTN, y4y2d84b-39 06/22 06/22 eCW: Gaurav GRANT Hyperlipidem ac-4305-b66 /2014 Gaurav ia , myalgia d-80ggx08n8 Bria 63a Bria, 3M X HTN, gono1v60-9s 06/22 06/22 eCW: Gaurav GRANT Hyperlipidem ac-4059-a4f /2014 Gaurav ia , myalgia b-4459283u9 Bria 314 Bria, 3M X HTN, 360efade-5d 06/22 06/22 eCW: Gaurav GRANT Hyperlipidem 88-407b-834 /2014 Gaurav doherty , myalgia a-690l4x4h5 Bria 981 Bria, 3M X HTN, 3iw37no7-i4 06/22 06/22 eCW: Gaurav GRANT Hyperlipidem c0-4234-a5f /2014 Gaurav bessy , myalgia b-ckn489i8d Bria 709 Bria, 3M X HTN, 7320984y-i9 06/22 06/22 eCW: Gaurav GRANT Hyperlipidem 06-66p2-7j2 /2014 Gaurav bessy , myalgia 6-9ew12f680 Bria 233 Bria, 3M X HTN, 98h4cmx2-ap 06/22 06/22 eCW: Gaurav GRANT Hyperlipidem 4d-44o5-9z6 /2014 Gaurav bessy , myalgia 7-082yubj7b Bria aee Bria, 3M X HTN, l2b984g2-68 06/22 06/22 eCW: Gaurav GRANT Hyperlipidem 4f-4v7o-93o /2014 Gaurav doherty , myalgia 1-h5356269f Bria fde Bria, 3M X HTN, 67884t82-69 06/22 06/22 eCW: Gaurav GRANT Hyperlipidem 39-16u6-41i /2014 Gaurav ia , myalgia d-293yf3m51 Bria 3c0 Bria, 3M X HTN, a12s057y-8m 06/22 06/22 eCW: Gaurav GRANT Hyperlipidem 8f-4913-abf /2014 Gaurav ia , myalgia 6-43v99h92z Bria 457 Bria, 3M X HTN, 47a51g06-9r 06/22 06/22 eCW: Gaurav GRANT Hyperlipideshamika c7-403d-99b /2014 Gaurav bessy , myalgia 9-g4txx6229 Bria 1e0 Bria, 3M X HTN, ijg44hde-20 06/22 06/22 eCW: Gaurav GRANT Hyperlipidem c9-2b34-h4l /2014 Gaurav doherty , myalgia 8-594q0611u Bria a4c Bria, 3M X HTN, 193217iv-85 06/22 06/22 eCW: Gaurav GRANT Hyperlipidem 32-45bb-957 /2014 Gaurav bessy , myalgia 1-351268147 Bria d24 Bria, 3M X HTN, 3r71j23l-26 06/22 06/22 eCW: Gaurav GRANT Hyperlipidem 39-6cq7-58f /2014 Gaurav bessy , myalgia c-7907ne893 Bria a00 Bria, 3M X HTN, vi559193-5f 06/22 06/22 eCW: Gaurav GRANT Hyperlipidem 6c-4356-ae3 /2014 Gaurav bessy , myalgia e-86736t40r Bria db4 Bria, 3M X HTN, 3u23aaa2-36 06/22 06/22 eCW: Gaurav GRANT Hyperlipidem 29-7h07-gow /2014 Gaurav bessy , myalgia 4-16psp79r2 Bria 30c Bria, 2 Weeks 96l6pd30-11 07/06 07/06 e CW: Gaurav GRANT (Reason: a4-7g9w-364 [facility] Bronchitis ) f-3a78750i0 Bria 136 Bria, 2 Weeks 139z3fq6-br 07/06 07/06 e CW: Gaurav GRANT (Reason: b4-4751-801 [facility] Bronchitis ) e-q39y56079 Bria af6 Bria, 2 Weeks ic848998-0q 07/06 07/06 e CW: Gaurav GRANT (Reason: e3-3x4q-73s [facility] Bronchitis ) 4-pm3u5ib6y Bria 3d2 Bria, 2 Weeks mqr0w384-i9 07/06 07/06 e CW: Gaurav GRANT (Reason: e0-44ba-bc8 [facility] Bronchitis ) 1-9ba3l7662 Bria 627 Bria, 2 Weeks jzq15e74-q4 07/06 07/06 e CW: Gaurav GRANT (Reason: 1b-40cc-ac9 [facility] Bronchitis ) 5-49n1x6797 Bria e9a Bria, 2 Weeks 7f46yx04-10 07/06 07/06 e CW: Gaurav GRANT (Reason: 64-81q5-r0p /2014 [facility] Bronchitis ) c-lw02r4x55 Bria 0ec Bria, 2 Weeks 31n53k0c-8a 07/06 07/06 e CW: Gaurav GRANT (Reason: 2c-4904-83a [facility] Bronchitis ) c-8w286r079 Bria 41b Bria, 2 Weeks 8nz4630g-17 07/06 07/06 e CW: Gaurav GRANT (Reason: 65-6uu8-8k2 [facility] Bronchitis ) c-3o0093e1r Bria a66 Bria, 2 Weeks 3y8ll451-76 07/06 07/06 e CW: Gaurav GRANT (Reason: e9-09e2-h3e /2014 [facility] Bronchitis ) 2-7452qq2g7 Bria 106 Bria, 2 Weeks o359375c-zq 07/06 07/06 e CW: Gaurav GRANT (Reason: b3-433f-a33 [facility] Bronchitis ) f-d65txjws1 Bria 82b Bria, 2 Weeks 44b67qy2-1j 07/06 07/06 e CW: Gaurav GRANT (Reason: 6e-4643-ba9 [facility] Bronchitis ) d-2cgl2q40v Bria 3fa Bria, 2 Weeks 7149i512-97 07/06 07/06 e CW: Gaurav GRANT (Reason: a4-475e-9aa [facility] Bronchitis ) 7-cvd465z91 Bria dcd Bria, 2 Weeks 98r8t011-8k 07/06 07/06 e CW: Gaurav GRANT (Reason: ca-4966-902 [facility] Bronchitis ) e-98h1nat56 Bria a77 Bria, 2 Weeks 921t2f70-w3 07/06 07/06 e CW: Gaurav GRANT (Reason: b8-4353-b8f /2014 [facility] Bronchitis ) 5-828ql34xu Bria 712 Bria, 2 Weeks 49jjtj7g-11 07/06 07/06 e CW: Gaurav GRANT (Reason: 2f-4v88-q7d /2014 [facility] Bronchitis ) 3-ry55khq58 Bria 1c7 Bria, 2 Weeks 10k40uh9-70 07/06 07/06 e CW: Gaurav GRANT (Reason: 39-4154-afa /2014 [facility] Bronchitis ) 0-o1n659xm9 Bria 2e5 Bria, 2 Weeks n222fo2c-l5 07/06 07/06 e CW: Gaurav GRANT (Reason: df-4131-9e7 [facility] Bronchitis ) 8-3348a008h Bria 057 Bria, 2 Weeks 72k3i735-pn 07/06 07/06 e CW: Gaurav GRANT (Reason: 75-4l58-15a [facility] Bronchitis ) 5-62l2sfk56 Bria 2f5 Bria, 2 Weeks j874ra5g-d5 07/06 07/06 e CW: Gaurav GRANT (Reason: f5-4ebf-81e [facility] Bronchitis ) b-589c59swp Bria 872 Bria, 2 Weeks a0p70a73-73 07/06 07/06 e CW: Gaurav GRANT (Reason: 7f-485b-837 /2014 [facility] Bronchitis ) c-8w07nu657 Bria 065 Bria, 4 Months 308773sb-70 11/05 11/05 eCW: Gaurav GRANT (Reason: 75-4190-9d3 /2014 [facility] Thyroid and c-ay97q4r7k Bria Triglyceride 7a7 s ) Bria, 4 Months 577p9738-05 11/05 11/05 eCW: Gaurav GRANT (Reason: 8b-498a-bcb /2014 [facility] Thyroid and d-8iv1sm757 Bria Triglyceride e69 s ) Bria, 4 Months 10t350h6-e2 11/05 11/05 eCW: Gaurav GRANT (Reason: 26-473b-96d /2014 [facility] Thyroid and 1-3chl9r3a3 Bria Triglyceride c44 s ) Bria, 4 Months 2y5anlk6-82 11/05 11/05 eCW: Gaurav GRANT (Reason: a7-40de-bb3 [facility] Thyroid and b-h2xgq0rfu Bria Triglyceride 21a s ) Bria, 4 Months 100y1h89-13 11/05 11/05 eCW: Gaurav GRANT (Reason: af-3c9h-911 [facility] Thyroid and 5-qt1bjh308 Bria Triglyceride 88e s ) Bria, 4 Months z1tk661k-38 11/05 11/05 eCW: Gaurav GRANT (Reason: 1c-41fd-b74 [facility] Thyroid and e-4a6f22r85 Bria Triglyceride bf5 s ) Bria, 4 Months q3sk1177-pe 11/05 11/05 eCW: Gaurav GRANT (Reason: 61-2s18-4aa [facility] Thyroid and 2-4xe1t533y Bria Triglyceride 96a s ) Bria, 4 Months qn126230-g8 11/05 11/05 eCW: Gaurav GRANT (Reason: 14-4492-ad9 [facility] Thyroid and 4-70720r0pb Bria Triglyceride 696 s ) Bria, 4 Months ra43r5b2-m9 11/05 11/05 eCW: Gaurav GRANT (Reason: d0-440b-907 [facility] Thyroid and 3-572uj3v24 Bria Triglyceride 7e4 s ) Bria, 4 Months 87p3l73u-9t 11/05 11/05 eCW: Gaurav GRANT (Reason: 28-3x9u-0ix [facility] Thyroid and b-9km821533 Bria Triglyceride 69a s ) Bria, 4 Months 0291t698-2q 11/05 11/05 eCW: Gaurav GRANT (Reason: 0c-4m3b-ujx [facility] Thyroid and 8-p222291l9 Bria Triglyceride 012 s ) Bria, 4 Months 226dafeb-47 11/05 11/05 eCW: Gaurav GRANT (Reason: c8-4568-af9 /2014 [facility] Thyroid and b-vfc89i3n5 Bria Triglyceride 4ed s ) Bria, 4 Months 78j05kk4-j3 11/05 11/05 eCW: Gaurav GRANT (Reason: 5f-4504-bca /2014 [facility] Thyroid and c-m88w56927 Bria Triglyceride 571 s ) Bria, 4 Months wh037pv3-x1 11/05 11/05 eCW: Guarav GRANT (Reason: c1-45cc-b47 /2014 [facility] Thyroid and c-02297qr31 Bria Triglyceride 520 s ) Bria, refill t68i7vv6-6r 11/17 11/17 eC W: Gaurav GRANT ff-6k59-450 /2014 Skinny-pve7w7s0y [facility] 2b8 Bria, refill yfr9lr2h-ev 11/17 11/17 eC W: Gaurav GRANT 13-41da-afe /2014 Skinny-71g9cf3q2 [facility] et[facility] 42c Bria, refill 010j75np-29 11/17 11/17 eC W: Gaurav GRANT af-02p7-c84 Gaurav 3-97jk029q0 [facility] f5a Bria, refill 43043r07-37 11/17 11/17 eC W: Gaurav GRANT cc-458f-bfb /2014 Gaurav 5-qa61c53w5 [facility] 61e Bria, refill j6n12963-i3 11/17 11/17 eC W: Gaurav GRANT 7e-441e-af7 /2014 Gaurav 7-e496n4k14 [facility] a14 Bria, refill p877s263-9g 11/17 11/17 eC W: Gaurav GRANT 5b-4875-afc /2014 Angie-5h01x73o7 [facility] 6f9 Bria, refill a5p839ou-9w 11/17 11/17 eC W: Gaurav GRANT d8-457d-9da /2014 Gaurav wolf-055n76138 [facility] f0b Bria, refill 60m709wv-0m 11/17 11/17 eC W: Gaurav GRANT ec-3ba3-62g /2014 Delfino-181581mm9 [facility] 1dd Bria, refill p3cds160-67 11/17 11/17 eC W: Gaurav GRANT c4-5s7n-f1p /2014 Gaurav 6-o93508420 [facility] 10e Bria, refill 2viarh4x-3j 11/17 11/17 eC W: Gaurav GRANT ba-87n1-6af /2014 Gaurav 1-1qdgl4650 [facility] eed Bria, refill 3i8789q3-0p 11/17 11/17 eC W: Gaurav GRANT 5e-8f16-947 /2014 Gaurav 1-981jwg096 [facility] 570 Bria, refill n77qk56i-42 11/17 11/17 eC W: Gaurav GRANT cc-496d-970 /2014 Gaurav b-0w347646s [facility] ef5 Bria, refill h9w0wt25-o9 11/17 11/17 eC W: Gaurav GRANT 51-6m69-3vq /2014 Gaurav 6-i8h4t9y47 [facility] 4a4 Bria, refill 66s74t4a-28 11/17 11/17 eC W: Gaurav GRANT c4-40a4-qjp /2014 Kyle-6stkpcz29 [facility] e65 Bria, refill 38009y65-6n 11/17 11/17 eC W: Gaurav GRANT 5e-4cfd-8e1 /2014 Gaurav 8-9ewg9kg0v [facility] 203 Bria, refill 3864bbn9-s7 11/17 11/17 eC W: Gaurav GRANT 6c-48fa-8ac /2014 Gaurav 5-l42939v5x [facility] 2ad Bria, refill q96310g4-77 11/17 11/17 eC W: Gaurav GRANT 82-90j2-2p3 /2014 Gaurav wolf-rtwz1q20a [facility] ded Bria, refill 0b8794lc-04 11/17 11/17 eC W: Gaurav GRANT e1-4023-8e0 /2014 Kyle-75gr032h1 [facility] fc7 Bria, refill s13500sm-n8 11/17 11/17 eC W: Gaurav GRANT 83-5du0-538 /2014 Gaurav 4-7046ly3j7 [facility] 936 Bria, refill 6h72qb53-9h 11/17 11/17 eC W: Gaurav GRANT 2d-4505-ab1 /2014 Skinny-pf28p3b7z [facility] dfa Bria, Needs c526g38g-92 12/24 12/24 eC W: Gaurav GRANT Sleeping f6-64m2-70c /2014 [facility] meds 1-4g5jt02l8 [facility] 436 [place], Needs y9n94z43-6o 12/24 12/24 eC W: Gaurav GRANT Sleeping 48-4603-914 /2014 [facility] meds 1-0a52f5t35 [facility] 27a B[place], Needs e85367m3-fc 12/24 12/24 eC W: Gaurav GRANT Sleeping eb-1h1y-78x /2014 [facility] meds 0-n337m4717 [facility] b23 [place], Needs 22935qqp-wj 12/24 12/24 eC W: Gaurav GRANT Sleeping fc-46q5-008 /2014 [facility] meds c-p2f78vumf [facility] e78 B[place], Needs 7yug1t55-s5 12/24 12/24 eC W: Gaurav GRANT Sleeping 87-4650-882 /2014 [facility] meds d-9zn2onar6 [facility] 633 [place], Needs 9m060265-wn 12/24 12/24 eC W: Gaurav GRANT Sleeping 46-1jd6-jg8 /2014 [facility] meds 4-8y0z1q360 [facility] 9c9 Bria, Needs 823x69vb-54 12/24 12/24 eC W: Gaurav GRANT Sleeping 13-04t0-e18 /2014 [facility] meds 5-q3a186z9s [facility] 690 [place], Needs 886985i4-97 12/24 12/24 eC W: Gaurav GRANT Sleeping 65-1u44-g11 /2014 [facility] meds c-b5uh0di4d [facility] 17d B[place], Needs abt3662y-ba 12/24 12/24 eC W: Gaurav GRANT Sleeping a1-4467-b28 /2014 [facility] meds 0-bisgd73g2 [facility] f57 [place], Needs c358q705-7y 12/24 12/24 eC W: Gaurav GRANT Sleeping 13-4167-8af /2014 [facility] meds c-39zhw7aiw [facility] 501 [place], Needs 094euc3j-v2 12/24 12/24 eC W: Gaurav GRANT Sleeping 1f-468c-ac6 /2014 [facility] meds 0-926d5t88t [facility] e6c Bria, [place] eye fzi0y03o-50 01/04 01/04 eCW: Gaurav GRANT 6a-4458-a67 /2014 Skinny-8om5750eq [facility] 2e1 Bria, [place] eye 44y591g7-bl 01/04 01/04 eCW: Gaurav GRANT d6-6t7p-246 /2014 Gaurav 7-6821h670z Z[facility] et[facility] shaan Bria, [place] eye 81100879-2u 01/04 01/04 eCW: Gaurav GRANT 22-46cf-b09 /2014 Gaurav 8-6p9l5ik8n [facility] et[facility] b77 Bria, [place] eye 36v92y6u-fb 01/04 01/04 eCW: Gaurav GRANT c8-77m9-k2k /2014 Gaurav 3-48k109496 [facility] et[facility] a90 B[place], [place] eye 89vu33d7-9e 01/04 01/04 eCW: Gaurav GRANT 79-435b-bfa /2014 Gaurav 9-n3n21m2r7 [facility] e82 B[place], [place] eye f630229c-ao 01/04 01/04 eCW: Gaurav GRANT 0a-1vi2-9kf /2014 Elliott-2r0xa1lwv [facility] be3 Bria, [place] eye 53ulc2pe-78 01/04 01/04 eCW: Gaurav GRANT 40-67t2-d7t /2014 Gaurav 7-u8dxxksg3 [facility] bbf Bria, [place] eye rhwo2c05-iz 01/04 01/04 eCW: Gaurav GRANT 18-43aa-94f /2014 Gaurav 2-45a51moz6 [facility] f46 Bria, [place] eye 52p56880-46 01/04 01/04 eCW: Gaurav GRANT 04-4259-9f6 /2014 Delfino-69fkd4yhx [facility] et[facility] 978 [place], [place] eye x1sh3749-93 01/04 01/04 eCW: Gaurav GRANT 69-46fd-995 /2014 Gaurav 1-07001s344 [facility] eta 712 B[place], [place] eye 54g998h5-yf 01/04 01/04 eCW: Gaurav GRANT 3e-429f-870 /2014 Kyle-7h4f74t3a [facility] et[facility] 739 Bria, release for t2em52zf-0f 02/03 02/03 eCW: Gaurav turner e0-1pk1-21h /2014 Gaurav 6-53ko39677 [facility] et[facility] 046 Bria, release for 1j401746-12 02/03 02/03 eCW: Gaurav turner 3b-4715-825 /2014 Gaurav 3-13u198882 [facility] cc9 Bria, release for 52zwu5ft-03 02/03 02/03 eCW: Gaurav turner cb-4266-9d4 /2014 Gaurav b-q751oviwl [facility] b36 Bria, release for 39r91oa7-80 02/03 02/03 eCW: Gaurav turner 48-1t4p-evs /2014 Gaurav 0-33jw5ze75 [facility] et[facility] 84c Bria, release for x43061j4-x4 02/03 02/03 eCW: Gaurav turner d6-4dbd-9be /2014 Gaurav 5-k9k7bc32b [facility] et[facility] 973 Bria, release for 56zar5b4-br 02/03 02/03 eCW: Gaurav turner 7f-9c5y-52e /2014 Gaurav 2-3i6r344p3 [facility] et[facility] 0e7 Bria, release for 0y5w0m0q-j7 02/03 02/03 eCW: Gaurav GRANT sjairon ef-06n8-j7u /2014 Gaurav 6-xu941095e Z[facility] et[facility] 69a Bria, release for 4i78twfy-40 02/03 02/03 eCW: Gaurav GRANT sjairon a6-4777-804 /2014 Angie-2068tt782 [facility] et[facility] 003 B[place], release for f91x79h2-ou 02/03 02/03 eCW: Gaurav GRANT sjairon b0-404e-98f /2014 Gaurav 9-a3e6h3z80 [facility] eta 035 Bria, release for 7323e61d-31 02/03 02/03 eCW: Gaurav GRANT sjairon 48-4290-831 /2014 Gaurav 8-73y461885 [facility] et[facility] 31f Bria, release for 983l0g5s-f7 02/03 02/03 eCW: Gaurav GRANT sjairon 82-4889-973 /2014 Delfino-9584zf979 [facility] et[facility] e93 Bria, release for z87605vg-22 02/03 02/03 eCW: Gaurav GRANT sjairon 19-06a8-9gv /2014 Gaurav 9-09q83fe24 Zaval eta 06d Bria, release for s96n4d6n-2h 02/03 02/03 eCW: Gaurav GRANT sjairon 22-4586-aa9 /2014 Gaurav b-1923e707x [facility] et[facility] 2aa Bria, release for x5jiv4q9-j4 02/03 02/03 eCW: Gaurav GRANT sjairon d6-4541-a10 /2014 Delfino-9dk8tl35d [facility] et[facility] cf8 Bria, release for b6570i46-j7 02/03 02/03 eCW: Gaurav GRANT sjairon 0a-8lq3-4n5 /2014 Gaurav b-w696209k7 [facility] et[facility] f5b [place], release for e072926n-y2 02/03 02/03 eCW: Gaurav GRANT sx 56-8c82-h28 /2014 Gaurav 9-99i4a935t [facility] et[facility] 2ef Bria, release for 1p92ps44-96 02/03 02/03 eCW: Gaurav GRANT sx af-4454-ab5 /2014 Gaurav b-o29q75880 Zaval eta fee Bria, release for 49s264m6-96 02/03 02/03 eCW: Gaurav GRANT sx 39-96b3-y6m /2014 Delfino-kv5b7rz16 [facility] 2d7 Bria, lab order/ l9fck72c-rg 02/04 02/04 eCW: Gaurav GRANT x-ray cb-7u4l-d40 /2014 Elliott-3097a9ruh [facility] et[facility] 2ee Bria, lab order/ 6v1i70yo-03 02/04 02/04 eCW: Gaurav GRANT x-ray 85-02w5-391 /2014 Gaurav 5-h0l0ox2l3 [facility] a05 Bria, lab order/ 8vru36fm-1d 02/04 02/04 eCW: Gaurav GRANT x-ray 27-4849-b4c /2014 Delfino-5h5fj65qf Z[facility] et[facility] 13d Bria, lab order/ 2012c44d-l1 02/04 02/04 eCW: Gaurav GRANT x-ray 7e-96y5-ia9 /2014 Gaurav 7-dq943jge8 [facility] et[facility] 8e0 Bria, lab order/ 4y56r327-79 02/04 02/04 eCW: Gaurav GRANT x-ray 32-475b-96c /2014 Gaurav chun-jdd261124 Z[facility] et[facility] 65c Bria, lab order/ 5b31861o-t7 02/04 02/04 eCW: Gaurav GRANT x-ray bb-5s4u-w3l /2014 Gaurav b-pd0i5fz87 [facility] et[facility] 65c Bria, lab order/ 760c0638-32 02/04 02/04 eCW: Gaurav GRANT x-ray c2-51w2-lpr /2014 Gaurav 9-5b91e91yd [facility] f3f Bria, lab order/ r1h5k31p-7w 02/04 02/04 eCW: Gaurav GRANT x-ray e6-4444-a67 /2014 Gaurav 8-854p834y5 [facility] 5a0 [place], lab order/ 6l26l760-z6 02/04 02/04 eCW: Gaurav GRANT x-ray 7d-8a3x-tha /2014 Gaurav 4-4za197y17 [facility] et[facility] 701 B[place], lab order/ pgp7638c-46 02/04 02/04 eCW: Gaurav GRANT x-ray e6-497c-bd0 /2014 Gaurav 8-p81bi9x35 [facility] et[facility] 7de Bria, lab order/ 3e373w65-3n 02/04 02/04 eCW: Gaurav GRANT x-ray 6d-5wz9-22g /2014 Gaurav 7-41e43gj46 [facility] et[facility] 4e5 B[place], lab order/ 9h8gt62t-b2 02/04 02/04 eCW: Guarav GRANT x-ray 98-4l2r-hg1 /2014 Elliott-[id number] [facility] 023 [facility], lab order/ [id number] 02/04 02/04 eCW: Gaurav GRANT x-ray 22-4134-8c5 /2014 Gaurav 3-88e026j13 [facility] 3a3 [facility], lab order/ [id number] 02/04 02/04 eCW: Gaurav GRANT x-ray 6f-9h86-671 /2014 Angie-8284mbe2d [facility] 3aa [facility], lab order/ [id number] 02/04 02/04 eCW: Gaurav GRANT x-ray 30-4219-aa6 /2014 Gaurav 2-0o8g592s4 [facility] d3b [facility], lab order/ [id number] 02/04 02/04 eCW: Gaurav GRANT x-ray cb-4592-b7c /2014 Gaurav 9-h17qe7j8c [facility] 6ad [facility], lab order/ [id number] 02/04 02/04 eCW: Gaurav GRANT x-ray f6-49fc-8a6 /2014 Gaurav hernandez-t1t4h17b3 [facility] e7b [facility], lab order/ [id number] 02/04 02/04 eCW: Gaurav GRANT x-ray 42-4673-ac6 /2014 Kyle-[id number] [facility] ee9 [facility], Unknown [id number] 02/05 02/05 e CW: Gaurav GRANT f4-4098-95c /2014 Gaurav 8-x305188k6 [facility] dfe [facility], Unknown [id number] 02/05 02/05 e CW: Gaurav GRANT 03-19r9-05q /2014 Delfino-v299yi62b [facility] b13 [facility], Unknown [id number] 02/05 02/05 e CW: Gaurav GRANT ec-40ea-83f /2014 Gaurav 9-819tq9lw1 [facility] 4f3 [facility], Unknown [id number] 02/05 02/05 e CW: Gaurav GRANT 1c-42ba-8dd /2014 Gaurav 4-9xx0umugr [facility] ca7 [facility], Unknown [id number] 02/05 02/05 e CW: Gaurav GRANT 16-4445-a21 /2014 Gaurav 4-850kg42x6 [facility] 3c4 [facility], Unknown [id number] 02/05 02/05 e CW: Gaurav GRANT 11-9d76-k70 /2014 Gaurav 3-9vnzdowv1 [facility] 7c3 [facility], Unknown [id number] 02/05 02/05 e CW: Gaurav GRANT 92-4ddc-82c /2014 Gaurav 0-a1b72r741 [facility] ba2 [facility], Unknown [id number] 02/05 02/05 e CW: Gaurav GRANT 04-48ee-9bf /2014 Gaurav 0-299018yy6 [facility] 213 [facility], Unknown [id number] 02/05 02/05 e CW: Gaurav GRANT ea-4ecb-8ef /2014 Elliott-w9mawq457 [facility] ea2 [facility], Unknown [id number] 02/05 02/05 e CW: Gaurav GRANT 6e-3k5k-o8w /2014 Gaurav 6-j3066903s [facility] eb8 [facility], Unknown [id number] 02/05 02/05 e CW: Gaurav GRANT 60-4476-a1b /2014 Angie-q870za397 [facility] 131 [facility], Unknown [id number] 02/05 02/05 e CW: Gaurav GRANT b7-07b0-9zd /2014 Gaurav 4-26h381434 [facility] 185 [facility], Unknown [id number] 02/05 02/05 e CW: Gaurav GRANT 9a-4s57-l6y /2014 Gaurav 2-6d0g84187 [facility] 1b5 [facility], Unknown [id number] 02/05 02/05 e CW: Gaurav GRANT 8d-8l58-50c /2014 Gaurav 8-w9q1i43t2 [facility] 02b [facility], Unknown [id number] 02/05 02/05 e CW: Gaurav GRANT 96-5hv2-d8g /2014 Elliott-i70dh1jo7 [facility] 085 [facility], Unknown [id number] 02/05 02/05 e CW: Gaurav GRANT f9-4419-965 /2014 Gaurav 2-5h951o31j [facility] fa8 [facility], Unknown [id number] 02/05 02/05 e CW: Gaurav GRANT df-92q4-c14 /2014 Gaurav 1-6g15j71j5 [facility] 5d3 [facility], Unknown [id number] 02/05 02/05 e CW: Gaurav GRANT fc-425f-adb /2014 Gaurav 7-78ymw1n80 [facility] f25 [facility], LAB ORDER [id number] 02/08 02/08 eCW: Gaurav GRANT ea-435f-aff /2014 Gaurav b-7f9u411au [facility] 7d4 [facility], LAB ORDER [id number] 02/08 02/08 eCW: Gaurav GRANT 5f-49ec-82d /2014 Gaurav 9-0z8610816 [facility] 716 [facility], LAB ORDER [id number] 02/08 02/08 eCW: Gaurav GRANT ec-42ec-a45 /2014 Gaurav 6-u891sk2g8 [facility] 2ba [facility], LAB ORDER [id number] 02/08 02/08 eCW: Guarav GRANT 23-5s59-02b /2014 Gaurav 4-02ub36s17 [facility] 14b [facility], LAB ORDER [id number] 02/08 02/08 eCW: Gaurav GRANT 70-4722-992 /2014 Kyle-u9zv4g7q7 [facility] et[facility] 51e [facility], LAB ORDER [id number] 02/08 02/08 eCW: Gaurav GRANT 64-4103-ac5 /2014 Angie-0z232j6xp [facility] b24 [facility], LAB ORDER [id number] 02/08 02/08 eCW: Gaurav GRANT cc-8xj1-9lv /2014 Gaurav 3-941769r90 [facility] f05 [facility], LAB ORDER [id number] 02/08 02/08 eCW: Gaurav GRANT 55-4064-916 /2014 Gaurav 3-w5c58iy1j [facility] et[facility] 988 [facility], LAB ORDER [id number] 02/08 02/08 eCW: Gaurav GRANT f4-95y1-110 /2014 Gaurav 3-50l2645f6 [facility] 6e1 [facility], LAB ORDER [id number] 02/08 02/08 eCW: Gaurav GRANT 8d-4541-a3d /2014 Gaurav 0-0z00664ey [facility] 1be [facility], LAB ORDER [id number] 02/08 02/08 eCW: Gaurav GRANT e7-492e-bc3 /2014 Gaurav 9-r3x6t8he0 [facility] 5be [facility], LAB ORDER [id number] 02/08 02/08 eCW: Gaurav GRANT 84-62u4-n3m /2014 Gaurav 7-6d46dr583 [facility] c08 [facility], LAB ORDER [id number] 02/08 02/08 eCW: Gaurav GRANT c0-8d1l-h89 /2014 Gaurav 8-559968i9i [facility] 3c3 [facility], LAB ORDER [id number] 02/08 02/08 eCW: Gaurav GRANT c2-4369-bcc /2014 Skinny-65707ka9p [facility] 965 [facility], LAB ORDER [id number] 02/08 02/08 eCW: Garuav GRANT cc-4428-ab3 /2014 Angie-r58t26506 [facility] af4 [facility], LAB ORDER [id number] 02/08 02/08 eCW: Gaurav GRANT 01-5h6b-817 /2014 Gaurav 5-4ri1861ma [facility] 892 [facility], LAB ORDER [id number] 02/08 02/08 eCW: Gaurav GRANT 67-07m0-x92 /2014 Gaurav 6-c4693jq4f [facility] 458 [facility], LAB ORDER [id number] 02/08 02/08 eCW: Gaurav GRANT 35-2o63-55q Gaurav 9-77w85161m [facility] 5b7 [facility], Unknown [id number] 02/10 02/10 e CW: Gaurav GRANT 94-34r7-jbn /2014 Kyle-y7a88418q [facility] 4c7 [facility], Unknown [id number] 02/10 02/10 e CW: Gaurav GRANT 29-37b1-350 /2014 Gaurav 8-r0z1637a2 [facility] acb [facility], Unknown [id number] 02/10 02/10 e CW: Gaurav GRANT 32-2uk1-905 /2014 Gaurav 7-9h77a6f85 [facility]aval eta 79e [facility], Unknown [id number] 02/10 02/10 e CW: Gaurav GRANT 0b-6se7-i45 /2014 Gaurav b-2r8m5f782 [facility] 473 [facility], Unknown [id number] 02/11 02/11 e CW: Gaurav GRANT 67-4215-954 /2014 Gaurav 0-9zz5i3o00 [facility] ff2 [facility], Unknown [id number] 02/11 02/11 e CW: Gaurav GRANT 07-427a-bb9 /2014 Gaurav 9-0lk4w6e0q [facility] d18 [facility], Unknown [id number] 02/11 02/11 e CW: Gaurav GRANT a9-61d6-k75 /2014 Angie-nd72049o1 [facility] eta 59b [facility], Unknown [id number] 02/11 02/11 e CW: Gaurav GRATN 20-4739-b12 /2014 Gaurav 9-4888bt23b [facility] c4f [facility], Unknown [id number] 02/11 02/11 e CW: Gaurav GRANT 56-4309-9bd /2014 Kyle-33pb9d4vm [facility] eta 40f [facility], Unknown [id number] 02/11 02/11 e CW: Gaurav GRANT e9-4034-933 /2014 Gaurav 7-4nm62po57 [facility] et[facility] 268 [facility], Unknown [id number] 02/11 02/11 e CW: Gaurav GRANT 38-5hu8-b9a /2014 Gaurav 1-87lh539sf [facility] ad7 [facility], Unknown [id number] 02/11 02/11 e CW: Gaurav GRANT e2-5eu3-d2m /2014 Elliott-67t82sc1l [facility] 5af [facility], Unknown [id number] 02/11 02/11 e CW: Gaurav GRANT f0-8f81-775 /2014 Gaurav 4-70u4881x9 [facility] et[facility] 2eb [facility], Unknown [id number] 02/11 02/11 e CW: Gaurav GRANT 2e-4bdb-985 /2014 Gaurav b-7hkd41769 [facility] ea3 [facility], Unknown [id number] 02/11 02/11 e CW: Gaurav GRANT f9-4538-a79 /2014 Delfino-a3g6u22l4 [facility] bb2 [facility], Unknown [id number] 02/11 02/11 e CW: Gaurav GRANT da-4194-9ec /2014 Gaurav 4-004bskm49 [facility] eta 73e [facility], Unknown [id number] 02/11 02/11 e CW: Gaurav GRANT 29-7l65-s0f /2014 Gaurav 0-b2164jv78 [facility] 900 [facility], Unknown [id number] 02/23 02/23 e CW: Gaurav GRANT 21-43ff-83c /2014 Gaurav b-10l9s4w09 [facility] 300 [facility], Unknown [id number] 02/23 02/23 e CW: Gaurav GRANT 8f-0r61-951 /2014 Gaurav 0-rm7n357o7 [facility]aval eta 90e [facility], Unknown [id number] 02/23 02/23 e CW: Gaurav GRANT 07-495b-815 /2014 Delfino-9p15i2x32 [facility] et[facility] 394 [facility], Unknown 19n9p6iz-77 02/23 02/23 e CW: Gaurav GRANT 3f-96v1-625 /2014 Gaurav 6-o85124l71 Zaval eta 196 [place], Unknown [id number]-84 02/23 02/23 e CW: Gaurav GRANT 09-4151-b3c /2014 Gaurav 9-2231tr5ji Zaval eta f0f [place], Unknown 60ms544y-60 02/23 02/23 e CW: Gaurav GRANT b4-4307-98d /2014 Gaurav 6-m19fih6z5 [facility] eta 0f7 Bria, Unknown [id number] 02/23 02/23 e CW: Gaurav GRANT 0b-5i5u-663 /2014 Kyle-29ovvjy6f Z[facility] eta fed [place], Unknown [id number]-g9 02/23 02/23 e CW: Gaurav GRANT 30-29q6-y27 /2014 Gaurav 3-9tie29i2t Zaval eta a4c [place], Unknown 1px3d240-86 02/23 02/23 e CW: Gaurav GRANT 12-4353-a29 /2014 Gaurav 9-6ibmp46l8 Zaval eta f58 [place], Unknown -9z 02/23 02/23 e CW: Gaurav GRANT 75-48t3-t53 /2014 Gaurav 7-y658m2u8l Zaval eta 7f3 B[place], Unknown [id number] 02/23 02/23 e CW: Gaurav GRANT ed-5yw8-2a7 /2014 Angie-0888t1653 Zaval eta fea [place], Unknown dds94310-1l 02/23 02/23 e CW: Gaurav GRANT f7-4829-b96 /2014 Gaurav 4-mjs18ypd4 Zaval eta 645 [place], Unknown [id number] 02/23 02/23 e CW: Gaurav GRANT 8d-7k26-jur /2014 Skinny-ekrjt0u70 [facility] eta ab5 Bria, 4 Months c8e906p2-2x 03/08 03/08 eCW: Gaurav GRANT (Reason: 6e-6al8-13s [facility] Thyroid and 6-5cc92l9tp Bria hyperlipidem 944 ia ) Bria, 4 Months 3t702692-y7 03/08 03/08 eCW: Gaurav GRANT (Reason: 90-4176-979 [facility] Thyroid and d-3866tl45r Bria hyperlipidem cb3 ia ) Bria, 4 Months 4006u9g7-68 03/08 03/08 eCW: Gaurav GRANT (Reason: 1e-74m9-t78 [facility] Thyroid and e-ky51bxy5b Bria hyperlipidem 46c ia ) Bria, 4 Months k0d75g17-3j 03/08 03/08 eCW: Gaurav GRANT (Reason: 8a-9l73-r5j /2014 [facility] se Thyroid and 6-frjh80h15 Bria hyperlipidem bba ia ) Bria, 4 Months [id number] 03/08 03/08 eCW: Gaurav GRANT (Reason: 12-46ee-808 [facility] Thyroid and 8-04m1ug313 Bria hyperlipidem 4fc ia ) Bria, 4 Months [id number] 03/08 03/08 eCW: Gaurav GRANT (Reason: 4d-3i9d-2t4 [facility] Thyroid and 0-n1y43n8n7 Bria hyperlipidem c54 ia ) Bria, 4 Months 75r74m1h-0e 03/08 03/08 eCW: Gaurav GRANT (Reason: 60-4595-a2f /2014 [facility] se Thyroid and 2-85e214s64 Bria hyperlipidem dc8 ia ) Bria, 4 Months 2ds5d651-je 03/08 03/08 eCW: Gaurav GRANT (Reason: 6d-6m1c-2j4 /2014 [facility] se Thyroid and 9-c84c68306 Bria hyperlipidem f6c ia ) Bria, 4 Months 8q7814s9-0t 03/08 03/08 eCW: Gaurav GRANT (Reason: f3-05f4-452 /2014 [facility] se Thyroid and e-9ic3n7sv7 Bria hyperlipidem ea9 ia ) Bria, 3m x thyroid 3695hf79-r9 eCW: Gaurav GRANT 1c-18d5-n70 /2015 Gaurav 1-0f485fou0 Zaval eta c6c [place], 3m x thyroid 8887o851-f9 eCW: Gaurav GRANT 40-489d-8ae /2015 Gaurav 8-5t547h46l [facility] eta f8c B[place], 3m x thyroid q44yt3b3-h9 eCW: Gaurav GRANT 4a-4689-85f /2015 Elliott-q00x3t06p [facility] eta b32 B[place], 3m x thyroid d92q52mg-4e eCW: Gaurav GRANT c9-4127-ac4 /2015 Gaurav 9-56160p84y Z[facility] eta 884 B[place], 3m x thyroid bm33037b-14 eCW: Gaurav GRANT ab-46p0-8a3 /2015 Delfino-s87912yh1 Zaval eta e1f [place], 3m x thyroid bwy4330f-81 eCW: Gaurav GRANT d3-44ae-92b /2015 Gaurav 8-9egw06s2t Zaval eta 63d Bria, 3m x thyroid 2l2190pb-62 eCW: Gaurav GRANT e8-48da-9a4 Gaurav 8-7wu9d686e Zaval eta 8dd Bria, 3m x thyroid 8m47yy35-87 eCW: Gaurav GRANT cf-8d2j-xau /2015 Delfino-4137z82nn Zaval eta 8c1 Bria, 4 Weeks 08t87331-27 07/06 07/06 e CW: Gaurav GRANT (Reason: cb-4adc-8ba [facility] Blood b-i52544sf6 Zaval eta pressure ) fd7 Bria, 4 Weeks 5e0i0zn8-hn 07/06 07/06 e CW: Gaurav GRANT (Reason: b5-426c-87 [facility] Blood 2-9li6hf9aa Zaval eta pressure ) 51f Bria, 4 Weeks 21c4y7h2-55 07/06 07/06 e CW: Gaurav GRANT (Reason: 9a-5jr9-030 [facility] Blood f-0k80n99wb Zaval eta pressure ) 5de Bria, 4 Weeks 2r9q166u-wg 07/06 07/06 e CW: Gaurav GRANT (Reason: 69-41be-a0e [facility] Blood f-3875lvh38 Zaval eta pressure ) 8fa Bria, 4 Weeks 3up2h6yu-75 07/06 07/06 e CW: Gaurav GRANT (Reason: fe-9sx5-a9b [facility] Blood 5-2899w91d7 Zaval eta pressure ) 440 Bria, 4 Weeks 207429n9-91 07/06 07/06 e CW: Gaurav GRANT (Reason: 2e-85i6-amm [facility] Blood 6-800826296 Zaval eta pressure ) fe3 Bria, 4 Weeks 48f37501-65 07/06 07/06 e CW: Gaurav GRANT (Reason: bf-4152-875 [facility] Blood 0-75107266u Zaval eta pressure ) 0b4 Bria, 3 Months 2472s3a1-y3 10/03 10/03 eCW: Gaurav GRANT (Reason: HTn 8f-4508-a7d /2015 Gaurav , Thyroid 1-950j2pff1 Za valeta and 089 cholesterol ) Bria, 3 Months 8c3b2424-43 10/03 10/03 eCW: aGurav GRANT (Reason: HTn 5b-8q2e-q3i /2015 Gaurav , Thyroid 7-q9mmv1u2u Za valeta and bd7 cholesterol ) Bria, 3 Months 3872c73v-r0 10/03 10/03 eCW: Gaurav GRANT (Reason: HTn 21-4623-bce /2015 Gaurav , Thyroid 9-l7bd846xb Za valeta and fe9 cholesterol ) Bria, 3 Months xg10d98j-db 10/03 10/03 eCW: Gaurav GRANT (Reason: HTn c7-469b-ba8 /2015 Gaurav , Thyroid 8-24tyd3120 Za valeta and 154 cholesterol ) Bria, 3 Months f1806425-1w 10/03 10/03 eCW: Gaurav GRANT (Reason: HTn a7-01z1-1hl /2015 Gaurav , Thyroid 6-s8828612g Za valeta and 46e cholesterol ) Bria, 3 Months 1j62985x-65 10/03 10/03 eCW: Gaurav GRANT (Reason: HTn 7a-498d-957 /2015 Gaurav , Thyroid 9-ydfi25479 Za valeta and 837 cholesterol ) Bria, 3 Months 5k812ti8-23 01/02 01/02 eCW: Gaurav GRANT (Reason: ff-40df-9b0 /2015 [facility] se Thyroid , 1-r4207fv24 Za valeta Cholesterol e66 ) Bria, 3 Months 8920s69b-f4 01/02 01/02 eCW: Gaurav GRANT (Reason: a1-4014-bcc /2015 [facility] Thyroid , 5-601u10494 Za valeta Cholesterol 6da ) Bria, 3 Months uh63xre5-ro 01/02 01/02 eCW: Gaurav GRANT (Reason: a1-4387-b11 /2015 [facility] Thyroid , d-ls44e477k Za valeta Cholesterol c8d ) Bria, 3 Months 4235c233-58 01/02 01/02 eCW: Gaurav GRANT (Reason: 7a-7z41-nvb /2015 [facility] Thyroid , 8-01340p2r9 Za valeta Cholesterol 88f ) Bria, 3 Months 9449i41g-5x 01/02 01/02 eCW: Gaurav GRANT (Reason: 6c-2d3w-rt0 /2015 [facility] Thyroid , 8-32rj8he2n Za valeta Cholesterol 0db ) Bria, REFILL i8cg58a5-84 03/09 03/09 eC W: Gaurav GRANT REQUEST 25-7e1l-2rb /2015 Roshan chun f-bh062jq38 [facility] eta e6b [place], REFILL cawgn480-x4 03/09 03/09 eC W: Gaurav GRANT REQUEST 2b-12n4-b2z /2015 Roshan chun 1-xp66d4j1l [facility] eta 498 [place], REFILL 8073u3x0-23 03/09 03/09 eC W: Gaurav GRANT REQUEST 05-4225-b55 /2015 Roshan chun 3-p421r2j2k [facility] eta 2e9 [place], REFILL 9pm9mst8-91 03/09 03/09 eC W: Gaurav GRANT REQUEST 3e-4586-8ec /2015 Roshan chun c-823hp01ir Zaval eta 5de Bria, refill 62a6v606-0m 03/20 03/20 eC W: Gaurav GRANT request..kz 35-4824-8ee /2015 Gaurav 9-6f5e36492 Zaval eta 369 B[place], refill 80g194ks-gl 03/20 03/20 eC W: Gaurav GRANT request..jessicaz 09-4525-85d /2015 Gaurav 1-430o89669 [facility] eta fd6 B[place], refill ii655hf5-10 03/20 03/20 eC W: Gaurav GRANT request..stacy a2-4m63-o83 /2015 Gaurav 2-43f592383 [facility] eta 219 [place], refill p98rfy0x-4i 05/03 05/03 eC W: Gaurav GRANT request 52-4408-819 /2016 Roshan chun e-027i9470d Deann wagner ce9 Bria, refill 2mz44444-66 05/03 05/03 eC W: Gaurav GRANT request 0c-7j6v-p5v /2016 Roshan chun a-595rql7gq Deann wagner f4c Bria, Rx [id number] 05/17 05/17 eC W: Gaurav GRANT clarificatio 83-4p9z-620 Gaurav post 3-w154988ru Deann eta a6f Procedures Procedure Code Date Perfomer Comments Source mammogram 81368 04/03/2007 [facility] bone density 4002.65 02/13/2005 [facility] Assessment and Plan No Data Provided for This Section Plan of Care No Data Provided for This Section Social History Social History Date Source Smoking StatusStart DateEnd Date 10/07/2018 [facility] Unknown if ever smoked 10/22/2018 11:01:34 Social History ElementQualifiersDate Reported 01/03/2016 eCW: Gaurav Fraser Language: . Romansh Jan 03, 2016 Marital Status: . Jan [...] Advance Directives Advance Directives [facility] [facility] Status No Data Provided for This Section
--- OUTSIDE RECORDS SUMMARY | 2020-04-28 15:36 | XMS REPORT | Continuity of Care Document ---
:1950 Author Organization [facility] t Address [address] [place] [address] Care Team Providers Name Role Phone Maty Kim Primary Care Physician BENNIE Attending Clinician Unavailable Saskia SULLIVAN Attending Clinician Unavailable BENNIE Admitting Clinician Unavailable Saskia SULLIVAN Admitting Clinician Unavailable Problems Condition Condition Condition Status Onset Resolution Last Treating Co mments Source Name Details Category Date Date Treatment Clinician Date Chronic Chronic Disease Active [facility] pain [facility]04 [facility] 00 [place] Wound, Wound, Disease Active [facility] surgical, surgical, 5-15 [facility] - infected infected 00:00: Medica l 00 [place] Pre-op Pre-op Disease Active [facility] testing testing 5-15 [facility] - [facility]: [facility] 00 [place] Essential Essential Disease Active [facility] hypertensi hypertensi 3-12 Ileana kes - on on 00:00: Medical 00 [place] Hypothyroi Hypothyroi Disease Active [facility] dism dism 3-12 [facility] - [facility]: Medical 00 [place] Depression Depression Disease Active [facility] with with 3-12 [facility] - anxiety anxiety 00:00: Medical 00 [place] Obesity Obesity Disease Active [facility] 3-12 [facility] - [facility]: [facility] 00 [place] Pain Pain Disease Active [facility] 3-12 [facility] - [facility]: [facility] 00 [place] Chronic Chronic Disease Active [facility] pain pain 2-16 [facility] - disorder disorder 00:00: Medica l 00 [place] HEADACHE Condition Active 2013-12-05 M emoria 10-08 06:16:00 l HEADACHE 00:00: [place] n 00 Active 10/08/2013 [facility] CONSTIPATI Condition Active 2013-12-05 [facility] ON 10-08 06:16:00 l 00:00: [place] CONSTIPATI 00 ON Active 4 Condition 12/05/2013 [facility] Group HEMORRHOID Condition Active 2013-12-05 Memoria S 10-08 06:16:00 l 00:00: [place] HEMORRHOID 00 S Active 10/08/2013 Condition [facility] BUNDLE Condition Active 2013-12-05 Mem oria BRANCH 06-05 06:16:00 l BLOCK, BUNDLE 00:00: [place] LEFT BRANCH 00 ANTERIOR BLOCK, FASCICULAR LEFT BLOCK ANTERIOR FASCICULAR BLOCK Active 06/05/2013 Condition [facility] DIABETES Condition Active 2013-12-05 M emoria MELLITUS, 05-23 06:16:00 l TYPE II, DIABETES 00:00: Herm ila UNCONTROLL MELLITUS, 00 ED TYPE II, UNCONTROLL ED Active 4 Condition 12/05/2013 Medical Group LOW HDL Condition Active 2013-12-05 Me moria 2- 06:16:00 l LOW HDL 00:00: [place] 00 Active 05/23/2013 Condition [facility] MIK Condition Active 2013-12-05 [facility] POSITIVE 05-23 06:16:00 l MIK 00:00: [place] POSITIVE 00 Active 05/23/2013 Condition [facility] HIGH RISK Condition Active 2013-12-05 [facility] MEDICATION 05-05 06:16:00 l HIGH 00:00: [place] RISK 00 MEDICATION Active 05/05/2013 Condition [facility] OBESITY Condition Active 2013-12-05 [place] moria 05-05 06:16:00 l OBESITY 00:00: [place] 00 Active 05/05/2013 Condition [facility] PELVIC Condition Active 2012-042013-12-05 Mem oria PAIN 0- 06:16:00 l PELVIC 00:00: [place] PAIN 00 Active 01/28/2013 Condition [facility] HIP PAIN, Condition Active 2012-042013-12-05 Memoria RIGHT 0 06:16:00 l HIP 00:00: [place] PAIN, 00 RIGHT Active 01/28/2013 Condition [facility] VITAMIN Condition Active 2013-12-05 Me moria B12 1- 06:16:00 l DEFICIENCY VITAMIN 00:00: Her mcguire B12 00 DEFICIENCY Active 05/09/2012 [facility] PHYSICAL Condition Active 2013-12-05 M emoria EXAM 1-16 06:16:00 l PHYSICAL 00:00: [place] EXAM 00 Active 04/24/2012 [facility] LEG PAIN Condition Active 2013-12-05 M emoria 1-16 06:16:00 l LEG PAIN 00:00: [place] n 00 Active 04/24/2012 Condition [facility] DERMATITIS Condition Active 2013-12-05 Memoria 1-16 06:16:00 l 00:00: [place] DERMATITIS 00 Active 04/24/2012 Condition [facility] VITAMIN D Condition Active 2013-12-05 Mem[facility] DEFICIENCY 09-04 06:16:00 l VITAMIN 00:00: [place] D 00 DEFICIENCY Active 09/05/2011 Condition [facility] KNEE PAIN Condition Active 2010-042013-12-05 Memoria 0- 06:16:00 l KNEE 00:00: [place] PAIN 00 Active 01/26/2011 Condition [facility] FLANK Condition Active 2013-12-05 Mem oria PAIN, 12-15 06:16:00 l RIGHT FLANK 00:00: [place] PAIN, 00 RIGHT Active 12/15/2010 Condition [facility] UTI Condition Active 2013-12-05 Mem oria 12-01 06:16:00 l UTI 00:00: [place] 00 Active 12/01/2010 [facility] SLEEP Condition Active 2013-12-05 Mem oria APNEA 6-16 06:16:00 l SLEEP 00:00: [place] APNEA 00 Active 09/22/2010 Condition [facility] RESTLESS Condition Active 2013-12-05 M emoria LEG 6-16 06:16:00 l SYNDROME RESTLESS 00:00: Herm ila LEG 00 SYNDROME Active 09/22/2010 Condition [facility] HIP Condition Active 2013-12-05 Mem oria REPLACEMEN 3-30 06:16:00 l T, LEFT, HIP 00:00: [place] HX OF REPLACEMEN 00 T, LEFT, HX OF Active 07/06/2010 Condition 4 [facility] TINEA Condition Active 2013-12-05 Mem oria CORPORIS 3- 06:16:00 l TINEA 00:00: [place] CORPORIS 00 Active 06/27/2010 [facility] FEVER, HX Condition Active 2013-12-05 Memoria OF 3-15 06:16:00 l FEVER, 00:00: [place] HX OF 00 Active 06/21/2010 Condition 4 [facility] SYNCOPE Condition Active 2013-12-05 Me moria 3-15 06:16:00 l SYNCOPE 00:00: [place] 00 Active 06/21/2010 Condition [facility] HIP Condition Active 2013-12-05 Mem oria REPLACEMEN 3-10 06:16:00 l T, RIGHT, HIP 00:00: [place] HX OF REPLACEMEN 00 T, RIGHT, HX OF Active 06/16/2010 Condition [facility] DEGENERATI Condition Active 2013-12-05 Memoria VE JOINT 06-02 06:16:00 l DISEASE, 00:00: [place] LEFT HIP DEGENERATI 00 VE JOINT DISEASE, LEFT HIP Active 06/02/2010 Condition [facility] PRE-OP Condition Active 2013-12-05 Mem oria EXAM 2-15 06:16:00 l PRE-OP 00:00: [place] EXAM 00 Active 05/24/2010 Condition [facility] BIPOLAR Condition Active 2013-12-05 Me moria AFFECTIVE 2-15 06:16:00 l DISORDER, BIPOLAR 00:00: Herm il[place] MODERATE AFFECTIVE 00 DISORDER, MODERATE Active 05/24/2010 [facility] ASEPTIC Condition Active 2013-12-05 Me moria NECROSIS 05-04 06:16:00 l OF HEAD ASEPTIC 00:00: [place] n AND NECK NECROSIS 00 OF FEMUR OF HEAD AND NECK OF FEMUR Active 05/04/2010 Condition [facility] RENAL Condition Active 2009-042013-12-05 Mem oria CYST, 06:16:00 l RIGHT RENAL 00:00: [place] CYST, 00 RIGHT Active 04/06/2010 [facility] ACQUIRED Condition Active 2009-042013-12-05 M emoria CYST OF 05-17 06:16:00 l KIDNEY ACQUIRED 00:00: [place] CYST OF 00 KIDNEY Active 03/16/2010 Condition [facility] LOW BACK Condition Active 2009-042013-12-05 M emoria PAIN 2 06:16:00 l LOW BACK 00:00: [place] PAIN 00 Active 03/14/2010 Condition 4 [facility] HIP PAIN, Condition Active 2009-042013-12-05 Memoria LEFT 2- 06:16:00 l HIP 00:00: [place] PAIN, LEFT 00 Active 03/14/2010 Condition [facility] LUMBAR Condition Active 2009-042013-12-05 Mem oria RADICULOPA 2-06 06:16:00 l THY LUMBAR 00:00: [place] RADICULOPA 00 THY Active 03/14/2010 Condition [facility] UNSPECIFIE Condition Active 2009-042013-12-05 Memoria D VITAMIN 0-20 06:16:00 l D 00:00: [place] DEFICIENCY UNSPECIFIE 00 D VITAMIN D DEFICIENCY Active 01/26/2010 [facility] Depression Problem Active 2015-11-02 M emoria with 03:35:47 l anxiety [place] Depression with anxiety Active Problem 11/02/2015 eCW: Gaurav Fraser Morbid Problem Active 2015-11-02 Memor ia Obesity 03:35:47 l Morbid [place] Obesity Active Problem 11/02/2015 eCW: Gaurav Fraser Hyperlipid Problem Active 2015-11-02 M emoria emia 03:35:47 l [place] Hyperlipid emia Active Problem 11/02/2015 eCW: Gaurav Fraser Osteoarthr Problem Active 2015-11-02 M emoria itis 03:35:47 l generalize [place] d Osteoarthr itis generalize d Active Problem 11/02/2015 eCW: Gaurav Fraser Hypothyroi Problem Active 2015-11-02 M emoria dism 03:35:47 l (acquired) [place] Hypothyroi dism (acquired) Active Problem 11/02/2015 eCW: Gaurav Fraser Osteoporos Problem Active 2015-11-02 M emoria is 03:35:47 l [place] Osteoporos is Active Problem 6 eCW: Gaurav Fraser Bipolar Problem Active 2015-11-02 Inder homar affective 03:35:47 l disorder, Bipolar Herm ila depressed affective disorder, depressed Active Problem 11/02/2015 eCW: Gaurav Frasre Low Back Problem Active 2015-11-02 Mem oria Pain 03:35:47 l Low Back [place] Pain Active Problem 11/02/2015 eCW: Gaurav Fraser Fibromyalg Problem Active 2015-11-02 M emoria ia 03:35:47 l [place] Fibromyalg ia Active Problem 6 eCW: Gaurav Fraser Vitamin D Problem Active 2015-11-02 Me moria Deficiency 03:35:47 l Vitamin [place] D Deficiency Active Problem 11/02/2015 eCW: Gaurav LebronBria Routine Diagnosis Active 2014-01-08 Me moria medical 02:02:51 l exam Routine [place] medical exam Active Diagnosis 01/08/2014 eCW: Gaurav Fraser Screen Diagnosis Active 2014-03-18 Mem oria Mammogram 03:04:03 l NEC Screen [place] Mammogram NEC Active Diagnosis 03/18/2014 eCW: Gaurav Fraser Cacosmia Diagnosis Active 2014-11-21 M emoria 02:25:30 l Cacosmia [place] n Active Diagnosis 11/21/2014 eCW: Gaurav Fraser Memory Diagnosis Active 2015-05-21 Mem oria deficits 03:39:44 l Memory [place] deficits Active Diagnosis 05/21/2015 eCW: Gaurav Fraser Pre-op Diagnosis Active 2015-05-21 Mem oria examinatio 04:05:13 l n Pre-op [place] examinatio n Active Diagnosis 05/21/2015 eCW: Gaurav LebronBria Pre-op Diagnosis Active 2015-02-24 Mem oria evaluation 03:03:42 l Pre-op [place] evaluation Active Diagnosis 02/24/2015 eCW: Gaurav LebronBria Depression Problem Active 2016-05-18 M emoria with 03:03:33 l anxiety [place] Depression with anxiety Active Problem 05/18/2016 eCW: Gaurav LebronBria Vitamin D Problem Active 2016-05-18 Me moria deficiency 03:03:33 l Vitamin [place] D deficiency Active Problem 05/18/2016 eCW: Gaurav LebronBria Hypothyroi Problem Active 2016-05-18 M emoria dism, 03:03:33 l unspecifie [place] d Hypothyroi dism, unspecifie d Active Problem 05/18/2016 eCW: Gaurav Fraser Fibromyalg Problem Active 2016-05-18 M emoria ia 03:03:33 l [place] Fibromyalg ia Active Problem 7 eCW: Gaurav Fraser Hyperlipid Problem Active 2016-05-18 M emoria emia, 03:03:33 l unspecifie [place] d Hyperlipid emia, unspecifie d Active Problem 05/18/2016 eCW: Gaurav Fraser Dorsalgia, Problem Active 2016-05-18 M emoria unspecifie 03:03:33 l d [place] Dorsalgia, unspecifie d Active Problem 05/18/2016 eCW: Gaurav Fraser Spinal Problem Active 2016-05-18 Memor ia stenosis 03:03:33 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[place] 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 Active Problem 05/18/2016 eCW: Gaurav Fraser Generalize Problem Active 2016-05-18 M emoria d OA 03:03:33 l [place] Generalize d OA Active Problem 05/18/2016 eCW: Gaurav Fraser Osteoporos Problem Active 2016-05-18 M emoria is 03:03:33 l [place] Osteoporos is Active Problem 7 eCW: Gaurav Fraser Conjunctiv Diagnosis Active 2015-05-21 Memoria itis 04:11:35 l [place] Conjunctiv itis Active Diagnosis 05/21/2015 eCW: Gaurav Fraser Conjunctiv Diagnosis Active 2015-11-02 Memoria itis 03:35:47 l [place] Conjunctiv itis Active Diagnosis 11/02/2015 eCW: Gaurav Fraser Restless Problem Active 2016-05-18 Mem oria legs 03:03:33 l syndrome Restless Herm ila legs syndrome Active Problem 05/18/2016 eCW: Gaurav Fraser Hypertensi Problem Active 2016-05-18 M emoria on 03:03:33 l [place] Hypertensi on Active Problem 7 eCW: Gaurav Fraser Obesity Problem Active 2016-05-18 Inder homar 03:03:33 l Obesity [place] Active Problem 05/18/2016 eCW: Gaurav Fraser DEPRESSION Condition Active 2013-12-05 Memoria 06:16:00 l [place] DEPRESSION Active Condition 12/05/2013 Medical Group HYPERCHOLE Condition Active 2013-12-05 Memoria STEROLEMIA 06:16:00 l [place] HYPERCHOLE STEROLEMIA Active Condition 12/05/2013 Medical Group HYPERTENSI Condition Active 2013-12-05 Memoria ON - 06:16:00 l BENIGN [place] ESSENTIAL HYPERTENSI ON - BENIGN ESSENTIAL Active Condition 12/05/2013 Medical Group HYPOTHYROI Condition Active 2013-12-05 Memoria DISM 06:16:00 l [place] HYPOTHYROI DISM Active Condition 12/05/2013 Medical Group GERD Condition Active 2013-12-05 Mem oria 06:16:00 l GERD [place] Active Condition 12/05/2013 Medical Group M19.90 Diagnosis 2018-2018-10-22 2018-10-22 Memoria UNSPECIFIE 10-01 15:01:34 15:01:34 l D M19.90 00:00: [place] OSTEOARTHR UNSPECIFIE 00 ITIS, D UNSPECIFIE OSTEOARTHR D SITE ITIS, UNSPECIFIE D SITE 10/01/2018 Diagnosis [address] [place] Z95.810 Diagnosis 2018-2018-10-22 2018-10-22 Memoria PRESENCE 625 15:01:34 15:01:34 l OF Z95.810 00:00: [place] AUTOMATIC PRESENCE 00 (IMPLANTAB OF LE) AUTOMATIC CARDIAC (IMPLANTAB DEFIBRILLA LE) TOR CARDIAC DEFIBRILLA TOR 10/01/2018 Diagnosis 9 [place] E78.5 Diagnosis 2018-2018-10-22 2018-10-22 Memoria HYPERLIPID 6- 15:01:34 15:01:34 l PERLA, E78.5 00:00: [place] UNSPECIFIE HYPERLIPID 00 D EMIA, UNSPECIFIE D 10/01/2018 Diagnosis 9 [place] K21.9 Diagnosis 2018-2018-10-22 2018-10-22 Memoria GASTRO-ESO 6- 15:01:34 15:01:34 l PHAGEAL K21.9 00:00: [place] REFLUX GASTRO-ESO 00 DISEASE PHAGEAL WITHOUT REFLUX ESOPHAGITI DISEASE S WITHOUT ESOPHAGITI S 10/01/2018 Diagnosis 9 [place] R52 PAIN, Diagnosis 2018-2018-10-22 2018-10-22 Memoria UNSPECIFIE 10-01 15:01:34 15:01:34 l D R52 00:00: [place] PAIN, 00 UNSPECIFIE D 10/01/2018 Diagnosis 9 [place] R53.1 Diagnosis 2018-2018-10-22 2018-10-22 Memoria WEAKNESS 6- 15:01:34 15:01:34 l R53.1 00:00: [place] WEAKNESS 00 9 Diagnosis 10/22/2018 [place] L30.9 Diagnosis 2018-2018-10-22 2018-10-22 Memoria DERMATITIS 6- 15:01:34 15:01:34 l , L30.9 00:00: [place] UNSPECIFIE DERMATITIS 00 D , UNSPECIFIE D 10/01/2018 Diagnosis 9 [place] W19.XXXA Diagnosis 2018-2018-10-22 2018-10-22 Memoria UNSPECIFIE 10-01 15:01:34 15:01:34 l D FALL, W19.XXXA 00:00: Linda nn INITIAL UNSPECIFIE 00 ENCOUNTER D FALL, INITIAL ENCOUNTER 10/01/2018 Diagnosis 9 [place] E66.9 Diagnosis 2018-2018-10-22 2018-10-22 Memoria OBESITY, 6- 15:01:34 15:01:34 l UNSPECIFIE E66.9 00:00: Linda nn D OBESITY, 00 UNSPECIFIE D 10/01/2018 Diagnosis 9 [place] M43.26 Diagnosis 2018-2018-10-22 2018-10-22 Memoria FUSION OF 6-25 15:01:34 15:01:34 l SPINE, M43.26 00:00: [place] LUMBAR FUSION OF 00 REGION SPINE, LUMBAR REGION 10/01/2018 Diagnosis 9 [place] F32.9 Diagnosis 2017-2018-10-22 2018-10-22 Memoria MAJOR 3- 15:01:34 15:01:34 l DEPRESSIVE 2.9 00:00: Linda nn DISORDER, MAJOR 00 SINGLE DEPRESSIVE EPISODE, DISORDER, UNSPECIFIE SINGLE D EPISODE, UNSPECIFIE D 07/03/2017 Diagnosis 9 [place] R25.1 Diagnosis 2017-2018-10-22 2018-10-22 Memoria TREMOR, 3 15:01:34 15:01:34 l UNSPECIFIE R25.1 00:00: Linda nn D TREMOR, 00 UNSPECIFIE D 07/03/[address] [place] [address] Z98.890 Diagnosis 2017-2018-10-22 2018-10-22 Memoria OTHER 3 15:01:34 15:01:34 l SPECIFIED [place] [id number] 00:00: Herm ila POSTPROCED OTHER 00 URAL SPECIFIED STATES POSTPROCED URAL STATES 07/03/2017 Diagnosis 9 [place] M54.5 LOW Diagnosis 2017-2018-10-22 2018-10-22 Memoria BACK PAIN 3- 15:01:34 15:01:34 l 4.5 00:00: [place] LOW BACK 00 PAIN 07/03/2017 Diagnosis 9 [place] I10 Diagnosis 2017-2018-10-22 2018-10-22 Memoria ESSENTIAL 3- 15:01:34 15:01:34 l (PRIMARY) I10 00:00: [place] HYPERTENSI ESSENTIAL 00 ON (PRIMARY) HYPERTENSI ON 07/03/2017 Diagnosis 9 [place] Z96.9 Diagnosis 2017-2018-10-22 2018-10-22 Memoria PRESENCE 3- 15:01:34 15:01:34 l OF [facility].9 00:00: [place] FUNCTIONAL PRESENCE 00 IMPLANT, OF UNSPECIFIE FUNCTIONAL D IMPLANT, UNSPECIFIE D 07/03/2017 Diagnosis 9 [place] Chronic Diagnosis 2017-2018-10-22 2018-10-22 Memoria pain 07-03 15:01:34 15:01:34 l syndrome Chronic 00:00: Linda nn (disorder) pain 00 syndrome (disorder) 07/03/2017 Diagnosis 9 [place] Z97.8 Diagnosis 2018-10-22 2018-10-22 Memoria PRESENCE 07-03 15:01:34 15:01:34 l OF OTHER Z97.8 00:00: [place] SPECIFIED PRESENCE 00 DEVICES OF OTHER SPECIFIED DEVICES 07/03/2017 Diagnosis 9 [place] M79.7 Diagnosis 2018-10-22 2018-10-22 Memoria FIBROMYALG 07-03 15:01:34 15:01:34 l IA 79.7 00:00: [place] FIBROMYALG 00 IA 07/03/2017 Diagnosis 9 [place] E03.9 Diagnosis 2018-10-22 2018-10-22 Mem[facility] HYPOTHYROI 07-03 15:01:34 15:01:34 l DISM, E03.9 00:00: [place] UNSPECIFIE HYPOTHYROI 00 D DISM, UNSPECIFIE D 07/03/2017 Diagnosis 9 [place] Z90.710 Diagnosis 2018-10-22 2018-10-22 Mem[facility] ACQUIRED 07-03 15:01:34 15:01:34 l ABSENCE OF Z90.710 00:00: Her mcguire BOTH ACQUIRED 00 CERVIX AND ABSENCE OF UTERUS BOTH CERVIX AND UTERUS 07/03/2017 Diagnosis 9 [place] F41.9 Diagnosis 2018-10-22 2018-10-22 Memoria ANXIETY 07-03 15:01:34 15:01:34 l DISORDER, F41.9 00:00: [place] n UNSPECIFIE ANXIETY 00 D DISORDER, UNSPECIFIE D 07/03/2017 Diagnosis 9 [place] Z96.643 Diagnosis 2018-10-22 2018-10-22 Memoria PRESENCE 07-03 15:01:34 15:01:[address] [facility]64 00:00: [place] ARTIFICIAL PRESENCE 00 HIP JOINT, OF BILATERAL ARTIFICIAL HIP JOINT, BILATERAL 07/03/2017 Diagnosis 9 [place] Allergies, Adverse Reactions, Alerts Allergy Allergy Status Severity Reaction(s) Onset Inactive Treating Comm ents Source Name Type Date Date Clinician acetamin acetamin Active Memori a ophen-co ophen-co 6-25 l deine deine 00:00: Morphine Morphine Active Memori a 6-25 l 00:00: Codeine Codeine Active Memoria 3-27 l 00:00: Sulfa Sulfa Active Memoria Drugs Drugs 3-27 l 00:00: Codeine Propensi Active Nausea [facility]06 [facility] - adverse 00:00: Medical reaction 00 Center s Sulfa Propensi Active Hives [facility] (Sulf[facility] ty to 2-06 [facility] - mide adverse 00:00: Medical Antibiot reaction 00 Center [facility]) s codeine codeine Active vomiting Memori a 9-26 l 00:00: CODEINE CODEINE Active 2009-04 Memoria 0-20 l 00:00: SULFA SULFA Active 2009-04 Memoria 0-20 l 00:00: Social History Social Habit Start Date Stop Date Quantity Comments Source Sex Assigned At [facility] Tobacco use and 2017-12-11 2017-12-11 Never used [facility] exposure 00:00:00 00:00:00 [facility] Alcohol intake 2017-12-11 2017-12-11 Current [facility] es - 00:00:00 00:00:00 non-drinker of [facility] nter alcohol (finding) Language: 2016-01-03 2016-01-03 [facility] 00:00:00 00:00:00 Smoking Status Start Date Stop Date Source Never smoker [facility] Medications Ordered Filled Start Stop Current Ordering Indication Dosage Frequency Signature Comments Components Source Medication Medication Date Date Medication? Clinician (SIG) Name Name oxyCODONE Yes Give 1 Memori a HCl Tablet 7-01 tablet by l 10 MG 01:00: mouth three times a day for pain QUEtiapine Yes GIVE 1 Memor ia Fumarate 6-27 TABLET BY l Tablet 50 00:00: MOUTH AT Herm ila MG 00 BEDTIME Mirapex Yes GIVE 1 Memoria Tablet 0.5 6-27 TABLET BY l MG 00:00: MOUTH AT [place] 00 BEDTIME Lyrica Yes Give 1 Memoria Capsule 200 6-26 capsule by l MG 20:00: mouth [place] 00 three times a day related to FIBROMYALG IA (M79.7) oxyCODONE Yes Give 1 Memori a HCl Tablet 6-26 tablet by l 10 MG 12:00: mouth [place] 00 three times a day for pain for 7 Days Centrum Yes Give 1 Memoria Adults 6-26 tablet by l Tablet 12:00: mouth one [place] n 00 time a day for Dietary Supplement Forteo Yes Inject 20 Memori a Solution 6-26 mcg l 12:00: subcutaneo [place] 00 usly one time a day related to UNSPECIFIE D OSTEOARTHR ITIS, UNSPECIFIE D SITE (M19.90) Cholestyram Yes GIVE 1 Inder homar ine Light 6-26 PACKET BY l Packet 4 GM 12:00: MOUTH ONE H ermann 00 TIME A DAY MIX IN 8OZ LIQUID Lotrisone Yes APPLY TO Inder homar Cream 6-26 AFFECTED l 1-0.05 % 12:00: AREA [place] 00 TOPICALLY TWO TIMES A DAY BOTH GROIN FOR REDNESS Cyanocobala Yes Give 1 Inder hmoar min Tablet 6-26 tablet l 1000 MCG 12:00: sublingual Her mcguire 00 ly one time a day for Dietary Supplement Esomeprazol Yes Give 1 Inder homar e Magnesium 6-26 capsule by l Capsule 12:00: mouth one Linda nn Delayed 00 time a day Release 40 for GERD MG Administer before meals. DO NOT CRUSH. Pregabalin Yes Give 2 Memor ia Capsule 75 6-26 capsule by l MG 12:00: mouth four [place] 00 times a day related to FIBROMYALG IA (M79.7) DESVENLAFAX Yes TAKE 1 TAB Memoria INE ER 50MG 6-26 BY MOUTH l TAB ER 24H 12:00: EVERY DAY He rmann 00 Ferrous Yes Give 1 Memoria Sulfate 6-26 tablet by l Tablet 325 12:00: mouth one He rmann (65 Fe) MG 00 time a day for supplement ation Vitamin D2 Yes GIVE [id number] M emoria Tablet 6-26 UNIT BY l 12:00: MOUTH ONE [place] 00 TIME A DAY EVERY WED GlycoLax Yes Give 17 Memori a Powder 6-26 gram by l 12:00: mouth one [place] 00 time a day every other day for constipati on (in Liquid) Losartan Yes GIVE 1 Memoria Potassium 6-26 TABLET BY l Tablet 100 12:00: MOUTH ONE He rmann MG 00 TIME A DAY HOLD FOR SBP<110, P<60 Furosemide Yes GIVE 1 Memor ia Tablet 20 6-26 TABLET BY l MG 12:00: MOUTH ONE [place] 00 TIME A DAY Pristiq Yes Give 1 Memoria Tablet 6-26 tablet by l Extended 12:00: mouth one Herm ila Release 24 00 time a day Hour 50 MG related to MAJOR DEPRESSIVE DISORDER, SINGLE EPISODE, UNSPECIFIE D (F32.9) Levothyroxi Yes GIVE 1 Inder homar ne Sodium 6-26 TABLET BY l Tablet 112 10:00: MOUTH ONE He rmann MCG 00 TIME A DAY GIVE 30 MINUTES BEFORE BREAKFAST ON EMPTY STOMACH OMEPRAZOLE Yes 1 CAP BY Mem oria 20MG 6-[address] 10:00: EVERY DAY He rmann 00 AT LEAST 30MINUTES BEFORE A MEAL TI FOR NEXIUM Docusate Yes Give 1 Memoria Sodium 6-26 capsule by l Capsule 100 00:00: mouth Linda nn MG 00 every 12 hours for constipati on levothyroxi Yes 112ug Take [address] ne 9-06 mcg by [facility] - (SYNTHROID, 16:19: mouth Medic al LEVOTHROID) 24 Every Center 112 MCG morning on tablet an empty stomach. pregabalin Yes 225mg Q.5D Take [address] (LYRICA) 9-06 mg by [facility] - 225 MG 16:19: mouth 2 Medical capsule 24 (two) Center times daily. clotrimazol 2017- Yes Q.5D Apply [facility]-betametha 9-06 topically Jael es - sone 16:19: 2 (two) Medical (LOTRISONE) 24 times Center 1-0.05 % daily. cream cholecalcif 2018-0 Yes [id number] Q7D Take [facility] brady, 12-13 50,000 [facility] - vitamin D3, 16:19: Units by Me dical (DECARA) 24 mouth once Cente r 50,000 unit a week. capsule desvenlafax 2018-0 Yes 50mg QD Take [address] ine 9-06 by mouth [facility] - succinate 16:19: daily. Medica l (PRISTIQ) 24 Center 50 MG 24 hr tablet mirtazapine 2017-0 Yes 15mg QD Take [address] (REMERON) 06 by mouth [facility] - 30 MG 16:19: nightly . Medical tablet 24 Center temazepam 0 Yes 15mg Take [address] (RESTORIL) 12-13 by mouth [facility] - 15 mg 16:19: every Medical capsule 24 night as Center needed for Sleep. lidocaine 2017-0 Yes 1{patch Q24H Place 1 [facility] I [...] 25mg Take [address] MINE 9-06 by mouth [facility] - (ZZZQUIL) 16:19: every Medical 25 mg 24 night as Center capsule needed (sleep). MENTHOL 2018-0 Yes 1{patch Q.5D Apply [address] [facility] (ICY HOT 12-13 } patch [facility] - PATCH TOP) 16:19: topically Me dical 24 2 (two) Center times daily. gabapentin Yes 300mg [id number] Take [address] (NEURONTIN) 12-13 [id number] mg by L ukes - 300 MG 16:19: 3D mouth 3 Medical capsule 24 (three) Center times daily. oxyCODONE Yes 15mg Take [address] (ROXICODONE 12-13 by mouth Luke s - ) 15 MG 16:19: every 4 Medical immediate 24 (four) Center release hours as tablet needed for Pain. furosemide Yes hypertensio 10mg QD Take [address] [facility] (LASIX) 20 9-06 n by mouth [facility] - MG tablet 16:19: daily. Medica l 24 Center Temazepam Yes Give 1 Memori a Capsule 15 4-14 capsule by l MG 05:00: mouth [place] 00 every 24 hours as needed for insomnia Ibuprofen Yes GIVE 1 Memori a Tablet 400 4-12 TABLET BY l MG 20:00: MOUTH [place] 00 THREE TIMES A DAY FOR 7 DAYS OxyCODONE Yes Give 1 Memori a HCl Tablet 4-07 tablet by l 15 MG 16:15: mouth [place] 00 every 6 hours as needed for For pain Temazepam Yes Give 2 Memori a Capsule 7.5 4-07 capsule by l MG 03:00: mouth [place] 00 every 24 hours as needed for insomnia give 2 tabs = 15mg Amoxicillin Yes GIVE 1 Inder homar -Pot 4-06 TABLET BY l Clavulanate 00:00: MOUTH Linda nn Tablet 00 EVERY 12 875-125 MG HOURS FOR 7 DAYS Temazepam Yes Give 1 Memori a Capsule 15 4-05 tablet by l MG 23:53: mouth [place] 00 every 24 hours as needed for sleep until 07/16/2017 23:59 Temazepam Yes Give 1 Memori a Capsule 15 4-05 capsule by l MG 20:45: mouth [place] 00 every 24 hours as needed for Insomnia Bisacodyl Yes Give 2 Memori a EC Tablet 4-04 tablet by l Delayed 15:00: mouth [place] Release 5 00 every 24 MG hours as needed for constipati on Acetaminoph Yes Give 2 Inder homar en Tablet 4-02 tablet by l 325 MG 20:45: mouth [place] 00 every 6 hours as needed for pain and fever greater than 100.4 Decara Yes Give [id number] Mem[facility] Capsule 3-29 [place] [id number] UNIT 12:00: mouth one He rmann 00 time a day every Hannah for Vitamin Supplement Lidoderm Yes APPLY TO [facility] Patch 5 % 3-28 RIGHT l 12:00: THIGH [place] 00 TOPICALLY ONE TIME A DAY APPLY TO (SPECIFY SITE) AND REMOVE PER SCHEDULE DESVENLAFAX Yes 1 TAB BY Me moria INE ER 50MG 3-28 MOUTH l TAB ER 24H 12:00: EVERY DAY He rmann 00 Desvenlafax Yes Give 1 Inder homar ine 3-28 tablet by l Succinate 12:00: mouth one Her mcguire ER Tablet 00 time a day Extended related to Release 24 MAJOR Hour 50 MG DEPRESSIVE DISORDER, SINGLE EPISODE, UNSPECIFIE D (F32.9) Icy Hot Yes Apply to [facility] a Patch 3-28 affected l 12:00: area [place] 00 topically two times a day for affected area Bisacodyl Yes Give 2 Memori a EC Tablet 3-28 tablet by l Delayed 12:00: mouth one Linda nn Release 5 00 time a day MG for Bowel Management Losartan Yes GIVE 1 [facility] Potassium 3-28 TABLET BY l Tablet 25 12:00: MOUTH ONE Her mcguire MG 00 TIME A DAY Levothyroxi Yes GIVE 1 Inder homar ne Sodium 3-28 TABLET BY l Tablet 112 10:00: MOUTH ONE He rmann MCG 00 TIME A DAY GIVE 30 MINUTES BEFORE BREAKFAST ON EMPTY STOMACH Cyclobenzap Yes GIVE 1 Inder homar rine HCl 3-28 TABLET BY l Tablet 5 MG 05:00: MOUTH Linda nn 00 EVERY 8 HOURS NEEDED FOR MUSCLE SPASMS FOR 10 DAYS Temazepam Yes Give 1 [facility] a Capsule 15 3-28 tablet by l MG 05:00: mouth [place] 00 every 24 hours as needed for sleep for 14 Days Mirtazapine Yes GIVE 1 Inder homar Tablet 30 3-28 TABLET BY l MG 00:00: MOUTH AT [place] 00 BEDTIME Mirapex Yes GIVE 1 [facility] Tablet 0.5 3-28 TABLET BY l MG 00:00: MOUTH AT [place] 00 BEDTIME Lyrica Yes Give 1 [facility] Capsule 225 3-28 capsule by l MG 00:00: mouth two [place] 00 times a day related to FIBROMYALG IA (M79.7) Clotrimazol Yes Apply to Me moria e-Betametha 3-28 affected l sone Cream 00:00: area [place] 1-0.05 % 00 topically two times a day for affected area Docusate Yes Give 1 [facility] Sodium 3-28 capsule by l Capsule 100 00:00: mouth two H ermann MG 00 times a day for Constipati on Enulose Yes GIVE 15 ML Inder homar Solution 10 3-27 BY MOUTH l GM/15ML 23:15: EVERY 48 Blaise n 00 HOURS NEEDED FOR CONSTIPATI ON Acetaminoph Yes Give 2 Inder homar en Tablet 3-27 tablet by l 325 MG 20:45: mouth [place] 00 every 6 hours as needed for pain OxyCODONE Yes Give 1 [facility] a HCl Tablet 3-27 tablet by l 15 MG 20:45: mouth [place] 00 every 6 hours as needed for severe pain for 10 Days hydrochloro Yes Brigid Elías 1 tab(s) [facility] thiazide-lo 2-08 Bria l sartan 00:00: [place] 00 lorazepam Yes Brigid HannaElías 1 tab(s) Memoria 1-26 Bria l 03:03: 13 levothyroxi 2015-04 Yes Milagros Stephenson tab(s) Mem[facility] ne 0-13 l 02:18: 44 fenofibrate 2015-04 Yes Milagros Tejeda 1 tab(s) Memoria 0-13 l 02:18: 44 Vitamin D3 2015-04 Yes Milagros Tejeda 1 cap(s) [facility] 0-13 l 02:18: 44 mirtazapine 2015-04 Yes Milagros Tejeda 1 tab(s) Memoria 0-13 l 02:18: 44 ibandronate 2015-04 Yes Milagros Tejeda 1 tab(s) [facility] 0-13 l 02:18: 44 zolpidem 2015-04 Yes Milagros Tejeda 1 tab(s) Memoria 0-13 l 02:18: 44 Pristiq 2015- Yes Milagros Tejeda 1 tab(s) Mem[facility] 0-13 l 02:18: [place] 44 lidocaine 2015-04 Yes Milagros Tejeda - Me moria 0.5% 0-13 l topical 02:18: [place] cream 44 Butrans 2015-04 Yes Milagros Tejeda 1 patch M emoria 0-13 l 02:18: [place] 44 clonidine 2015-04 Yes Milagros Tejeda 1 tab(s) Mem[facility] 0-13 l 02:18: 44 hydrochloro 2015-04 Yes Milagros Tejeda 1 tab(s) [facility] thiazide-lo 0-13 l sartan 02:18: 44 Lyrica Yes Brigid Mckinley 1 cap(s) M emoria 9-26 Bria l 00:00: ergocalcife 0 Yes Milagros Tejeda 1 cap(s) [facility] rol 9-26 l 00:00: clotrimazol 0 Yes Milagros Tejeda 1 noy [facility] e topical 9-26 l 00:00: Vigamox 0 Yes Brandon 1 gtt Inder homar 6-27 Davis l 00:00: PrednisoLON 0 Yes Milagros Tejeda 1 gtt [facility] E Na 6-27 l Phosphate-N 00:00: Blaise n a 00 Sulfacetami de Lyrica 0 Yes Brandon 1 cap(s) Me moria 6-01 Davis l 00:00: Lyrica 0 Yes Brandon 1 cap(s) Me moria 4-29 Davis l 02:37: 52 hydrochloro 0 Yes Brandon 1 tab(s) [facility] thiazide-lo 2-29 Davis l sartan 00:00: benzonatate 2015-0 Yes Brandon 1 cap(s) Mem[facility] 2-12 Davis l 03:39: [place] 44 Lyrica 2014-04 Yes Brandon 1 cap(s) Me moria 1-23 Davis l 00:00: 00 Levaquin 2014-04 Yes Brandon 1 tab(s) Memoria 1-04 Davis l 00:00: ofloxacin 2014-0 Yes Brandon 2 gtt Me moria ophthalmic 9-28 Davis l 00:00: Betamethaso Yes Brandon 1 noy Mem[facility] ne-Clotrima 8-11 Davis l zole 00:00: Montelukast 2014-0 Yes Brandon 1 tab(s) [facility] Sodium 3-30 Davis l 00:00: benzonatate Yes Brandon 1 cap(s) Memoria 3-16 Davis l 00:00: [place] 00 ProAir HFA Yes Brandon 2 puff(s) Memoria 3-16 Davis l 00:00: Betamethaso 2013-04 Yes Brandon 1 noy [facility] ne-Clotrima 2-15 Davis l zole 00:00: tramadol 2013-04 Yes Brandon 2 tab(s) Memoria 2-10 Davis l 03:04: cyclobenzap 2013-04 Yes Brandon 1 tab(s) Memoria rine 2-10 Davis l 03:04: zolpidem 2013-04 Yes Brandon 1 tab(s) Memoria 0-29 Davis l 00:00: Vitamin D3 Yes Brandon 1 cap(s) Memoria 9-11 Davis l 00:00: Lyrica Yes Brandon 1 cap(s) Me moria 8-28 Davis l 00:00: IBANDRONATE Yes Take 1 by M emoria SODIUM 150 7-02 mouth l MG TABS 00:00: monthly for osteoporos is ZOLPIDEM Yes Take 1 by Inder homar TARTRATE ER 7-02 mouth l 12.5 MG 00:00: every [place] CR-TABS 00 night to sleep HYDROCODONE Yes Take 1 by M emoria -ACETAMINOP 7-02 mouth ass l HEN 10-325 00:00: needed for H ermann MG TABS 00 pain ONDANSETRON Yes Take 1 by M emoria HCL 4 MG 7-02 mouth as l TABS 00:00: needed for [place] 00 nausea LIDOCAINE 5 Yes use as Inder homar % PTCH 7-02 needed for l 00:00: pain 00 COLACE 50 Yes take 3 Memori a MG CAPS 7-02 pills po l 00:00: bid prn constipati on ANUSOL-HC Yes apply up Inder homar 2.5 % CREA - to 3-4 l 00:00: times a day ZOLPIDEM Yes Take 1 by Inder homar TARTRATE ER 7- mouth l 12.5 MG 00:00: every [place] CR-TABS 00 night to sleep HYDROCODONE Yes Take 1 by M emoria -ACETAMINOP 10-08 mouth ass l HEN 10-325 00:00: needed for H ermann MG TABS 00 pain ONDANSETRON Yes Take 1 by M emoria HCL 4 MG 10-08 mouth as l TABS 00:00: needed for nausea LIDOCAINE 5 Yes use as Inder homar % PTCH 10-08 needed for l 00:00: pain COLACE 50 Yes take 3 Memori a MG CAPS - pills po l 00:00: bid prn constipati on CYANOCOBALA Yes 1 ml [facility] a MIN 1000 2-14 injected l MCG/ML INJ 00:00: subcutaneo H ermann SOLN 00 usly monthly. VITAMIN D No Take 1 Memori a (ERGOCALCIF 2-14 capsule by anali BRADY) [id number] 00:00: mouth Linda nn UNIT CAPS 00 every week for 12 weeks FENOFIBRATE Yes 1 tablet Me moria 160 MG TABS 2-14 daily stop l 00:00: simvastati n FENOFIBRATE Yes 1 tablet Me moria 160 MG TABS 2-14 daily stop l 00:00: simvastati n GLUCOTROL No 1 tablet Inder homar XL 5 MG 2-11 daily in l TB24 00:00: ams. BUTRANS 10 No Memoria MCG/HR PTWK 1-27 l 00:00: LYRICA 225 Yes 2 caps po Me moria MG CAPS 1-27 q day l 00:00: [place] 00 BONIVA 150 No 1 PO every M emoria MG TABS 1-27 month. l 00:00: Give with [place] 00 water 60 minutes before first food/drink /med. Avoid laying down for 60 minutes LYRICA 225 Yes 2 caps po Me moria MG CAPS 1-27 q day l 00:00: BONIVA 150 No 1 PO every M emoria MG TABS 1-27 month. l 00:00: Give with [place] 00 water 60 minutes before first food/drink /med. Avoid laying down for 60 minutes LYRICA 225 No 1 po tid Mem oria MG CAPS 7-16 l 00:00: LYRICA 225 No 1 po tid Mem oria MG CAPS 7-16 l 00:00: ZOLPIDEM No TAKE ONE [facility] TARTRATE ER 3-07 TABLET BY l 12.5 MG 00:00: MOUTH [place] CR-TABS 00 EVERY NIGHT AT BEDTIME ZOLPIDEM No TAKE ONE [facility] TARTRATE ER 3-07 TABLET BY l 12.5 MG 00:00: MOUTH [place] CR-TABS 00 EVERY NIGHT AT BEDTIME TRAMADOL Yes 2 tab po [facility] HCL 50 MG 2-05 tid l TABS 00:00: TRAMADOL Yes 2 tab po [facility] HCL 50 MG 2-05 tid l TABS 00:00: TRAMADOL Yes 2 tab po [facility] HCL 50 MG 2-05 tid l TABS 00:00: VITAMIN D3 No One tab po M emoria [id number] UNIT 1-31 qweekly l CAPS 00:00: for 12 weeks MIRTAZAPINE Yes 1 tab po Me moria 30 MG TBDP 1-16 qd l 00:00: TOPICORT Yes APPLY TO [facility] CRE 0.25% 1-16 RASH BID l 00:00: ZOLPIDEM No 1 po qhs [facility] TARTRATE ER 1-11 l 12.5 MG 00:00: [place] CR-TABS ZOLPIDEM No 1 po qhs [facility] TARTRATE ER 1-11 l 12.5 MG 00:00: [place] CR-TABS 00 CYCLOBENZAP Yes 1 po qd Mem oria RINE HCL 10 4-11 l MG TABS 00:00: CYCLOBENZAP Yes 1 po qd Mem [facility] RINE HCL 10 4-11 l MG TABS 00:00: ERGOCALCIFE 2010-04 No 1 q week Me moria ROL 94204 2-15 l UNIT CAPS 00:00: CYCLOBENZAP 2010-04 No 1 qd Memori a RINE HCL 10 2-14 l MG TABS 00:00: CYCLOBENZAP 2010-04 No 1 qd Mem[facility] a RINE HCL 10 2-14 l MG TABS 00:00: FLEXERIL No 1 po qhs [facility] TAB 10MG 9-20 l 00:00: VIMOVO No 1 tab po [facility] 500-20 MG 9-08 bid l TBEC 00:00: CIPRO 500 No pt to take Me moria MG TABS 8-25 1 tab l 00:00: every 12 hrs CIPRO 500 No pt to take Me moria MG TABS 8-25 1 tab l 00:00: every 12 hrs VIMOVO No 1 tab po [facility] 500-20 MG 3-21 bid l TBEC 00:00: SKELAXIN No 1 po q Memori a 800 MG TABS 3-21 bid l 00:00: LOTRIMIN AF No apply bid M emoria CREA 3-21 l 00:00: SKELAXIN No 1 po q Memori a 800 MG TABS 3-21 bid l 00:00: SKELAXIN No 1 po q Memori a 800 MG TABS 3-21 bid l 00:00: ABILIFY 15 No 1 qd [facility] MG TABS 2-15 l 00:00: CIPRO 500 No 1 bid [facility] MG TABS 2-15 l 00:00: ABILIFY 15 No 1 qd [facility] MG TABS 2-15 l 00:00: CIPRO 500 No 1 bid [facility] MG TABS 2-15 l 00:00: HYDROCODONE No 2 tablets M emoria -ACETAMINOP 1-06 every 6 l HEN 5-500 00:00: hrs prn Linda nn MG TABS 00 pain HYDROCODONE No 2 tablets M emoria -ACETAMINOP 1-06 every 6 l HEN 5-500 00:00: hrs prn Linda nn MG TABS 00 pain METAXALONE No bid [facility] 800 MG TABS 1-03 l 00:00: METAXALONE No bid [facility] 800 MG TABS 1-03 l 00:00: MEDROL 2009-04 No Take as [facility] ([place]) TABS 2-29 directed l 00:00: with food x 6 days CELEBREX 2009-04 No 1 qd [facility] 200 MG CAPS 2-29 l 00:00: CELEBREX 2009-04 No 1 qd [facility] 200 MG CAPS 2-29 l 00:00: CELEBREX 2009-04 No 1 qd [facility] 200 MG CAPS 2-29 l 00:00: LEVOTHYROXI 2009-04 Yes 1 qd Memori a NE SODIUM 0-20 l 100 MCG 00:00: CALTRATE 2009-04 Yes [facility] 600+D PLUS 0-20 l TABS 00:00: PRISTIQ 50 2009-04 Yes 1 qd [facility] MG TB24 0-20 l 00:00: LORAZEPAM 1 2009-04 Yes 2 to 3 as M emoria MG TABS 0-20 needed l 00:00: ERGOCALCIFE 2009-04 No 1 tab po q [facility] ROL 74603 0-20 wk l UNIT CAPS 00:00: VITAMIN D3 2009-04 No 1 tab a Inder homar 2,000 0-20 day l UNIT/ML 00:00: LIQD 00 (CHOLECALCI FEROL) LEVOTHYROXI 2009-04 Yes 1 qd Memori a NE SODIUM 0-20 l 100 MCG 00:00: TABS 00 PRISTIQ 50 2009-04 Yes 1 qd [facility] MG TB24 0-20 l 00:00: [place] 00 LORAZEPAM 2009-04 Yes Take 1 by Mem oria 0.5 MG TABS 0-20 mouth as l 00:00: needed for [place] 00 anxiety LEVOTHYROXI 2009-04 Yes 1 qd Memori a NE SODIUM 0-20 l 100 MCG 00:00: [place] TABS 00 LORAZEPAM 2009-04 Yes Take 1 by Mem oria 0.5 MG TABS 0-20 mouth as l 00:00: needed for [place] 00 anxiety Vital Signs Vital Name Observation Time Observation Value Comments Source Systolic (mm Hg) 2018-10-22 11:19:00 Inder rial [place] Diastolic (mm Hg) 2018-10-22 11:19:00 Mem orial [place] Temperature Oral (F) 2018-10-22 11:19:00 98 F [facility] [place] Heart Rate 2018-10-22 11:19:00 53 /min [facility] [place] Respitory Rate 2018-10-22 11:19:00 Memori al [place] Systolic (mm Hg) 2018-10-22 04:28:00 Inder rial [place] Diastolic (mm Hg) 2018-10-22 04:28:00 Mem orial [place] Temperature Oral (F) 2018-10-22 04:28:00 98 F [facility] [place] Heart Rate 2018-10-22 04:28:00 54 /min [facility] [place] Respitory Rate 2018-10-22 04:28:00 Memori al [place] Systolic (mm Hg) 2018-10-21 19:04:00 Inder rial [place] Diastolic (mm Hg) 2018-10-21 19:04:00 Mem orial [place] Temperature Oral (F) 2018-10-21 19:04:00 97 F [facility] [place] Heart Rate 2018-10-21 19:04:00 60 /min [facility] [place] Respitory Rate 2018-10-21 19:04:00 Memori al [place] Systolic (mm Hg) 2018-10-21 11:27:00 Inder rial [place] Diastolic (mm Hg) 2018-10-21 11:27:00 Mem orial [place] Temperature Oral (F) 2018-10-21 11:27:00 98.4 F [facility] [place] Heart Rate 2018-10-21 11:27:00 52 /min [facility] [place] Respitory Rate 2018-10-21 11:27:00 Memori al [place] Systolic (mm Hg) 2018-10-21 03:38:00 Inder rial [place] Diastolic (mm Hg) 2018-10-21 03:38:00 Mem orial [place] Temperature Oral (F) 2018-10-21 03:38:00 98 F [facility] [place] Heart Rate 2018-10-21 03:38:00 52 /min [facility] [place] Respitory Rate 2018-10-21 03:38:00 Memori al [place] Systolic (mm Hg) 2018-10-20 22:12:00 Inder rial [place] Diastolic (mm Hg) 2018-10-20 22:12:00 Mem orial [place] Temperature Oral (F) 2018-10-20 22:12:00 98.6 F [facility] [place] Heart Rate 2018-10-20 22:12:00 74 /min [facility] [place] Respitory Rate 2018-10-20 22:12:00 Memori al [place] Systolic (mm Hg) 2018-10-20 17:59:00 Inder rial [place] Diastolic (mm Hg) 2018-10-20 17:59:00 Mem orial [place] Temperature Oral (F) 2018-10-20 17:59:00 98.2 F [facility] [place] Heart Rate 2018-10-20 17:59:00 69 /min [facility] [place] Respitory Rate 2018-10-20 17:59:00 Memori al [place] Weight 2018-10-20 16:24:05 [facility] [place] Systolic (mm Hg) 2018-10-20 03:36:00 Inder rial [place] Diastolic (mm Hg) 2018-10-20 03:36:00 Mem orial [place] Temperature Oral (F) 2018-10-20 03:36:00 98.4 F [facility] [place] Heart Rate 2018-10-20 03:36:00 51 /min [facility] [place] Respitory Rate 2018-10-20 03:36:00 Memori al [place] Systolic (mm Hg) 2018-10-19 18:45:00 Inder rial [place] Diastolic (mm Hg) 2018-10-19 18:45:00 Mem orial [place] Temperature Oral (F) 2018-10-19 18:45:00 97 F [facility] [place] Heart Rate 2018-10-19 18:45:00 65 /min [facility] [place] Respitory Rate 2018-10-19 18:45:00 Memori al [place] Systolic (mm Hg) 2018-10-19 11:44:00 Inder rial [place] Diastolic (mm Hg) 2018-10-19 11:44:00 Mem orial [place] Temperature Oral (F) 2018-10-19 11:44:00 97.2 F [facility] [place] Heart Rate 2018-10-19 11:44:00 61 /min [facility] [place] Respitory Rate 2018-10-19 11:44:00 Memori al [place] Systolic (mm Hg) 2018-10-19 09:15:00 Inder rial [place] Diastolic (mm Hg) 2018-10-19 09:15:00 Mem orial [place] Temperature Oral (F) 2018-10-19 09:15:00 98.6 F [facility] [place] Heart Rate 2018-10-19 09:15:00 56 /min [facility] [place] Respitory Rate 2018-10-19 09:15:00 Memori al [place] Systolic (mm Hg) 2018-10-18 19:57:00 Inder rial [place] Diastolic (mm Hg) 2018-10-18 19:57:00 Mem orial [place] Temperature Oral (F) 2018-10-18 19:57:00 99.1 F [facility] [place] Heart Rate 2018-10-18 19:57:00 60 /min [facility] [place] Respitory Rate 2018-10-18 19:57:00 Memori al [place] Systolic (mm Hg) 2018-10-18 05:51:00 Inder rial [place] Diastolic (mm Hg) 2018-10-18 05:51:00 Mem orial [place] Temperature Oral (F) 2018-10-18 05:51:00 98.7 F [facility] [place] Heart Rate 2018-10-18 05:51:00 57 /min [facility] [place] Respitory Rate 2018-10-18 05:51:00 Memori al [place] Systolic (mm Hg) 2018-10-17 20:12:00 Inder rial [place] Diastolic (mm Hg) 2018-10-17 20:12:00 Mem orial [place] Temperature Oral (F) 2018-10-17 20:12:00 97 F [facility] [place] Heart Rate 2018-10-17 20:12:00 56 /min [facility] [place] Respitory Rate 2018-10-17 20:12:00 Memori al [place] Systolic (mm Hg) 2018-10-17 04:21:00 Inder rial [place] Diastolic (mm Hg) 2018-10-17 04:21:00 Mem orial [place] Temperature Oral (F) 2018-10-17 04:21:00 97.8 F [facility] [place] Heart Rate 2018-10-17 04:21:00 59 /min [facility] [place] Respitory Rate 2018-10-17 04:21:00 Memori al [place] Systolic (mm Hg) 2018-10-16 18:56:00 Inder rial [place] Diastolic (mm Hg) 2018-10-16 18:56:00 Mem orial [place] Temperature Oral (F) 2018-10-16 18:56:00 97 F [facility] [place] Heart Rate 2018-10-16 18:56:00 70 /min [facility] [place] Respitory Rate 2018-10-16 18:56:00 Memori al [place] Systolic (mm Hg) 2018-10-16 05:26:00 Inder rial [place] Diastolic (mm Hg) 2018-10-16 05:26:00 Mem orial [place] Temperature Oral (F) 2018-10-16 05:26:00 98.6 F [facility] [place] Heart Rate 2018-10-16 05:26:00 58 /min [facility] [place] Respitory Rate 2018-10-16 05:26:00 Memori al [place] Weight 2018-10-15 17:47:00 [facility] [place] Height 2018-10-15 16:15:00 [facility] [place] Systolic (mm Hg) 2018-10-15 16:03:00 Inder rial [place] Diastolic (mm Hg) 2018-10-15 16:03:00 Mem orial [place] Temperature Oral (F) 2018-10-15 16:03:00 98.4 F [facility] [place] Heart Rate 2018-10-15 16:03:00 48 /min [facility] [place] Respitory Rate 2018-10-15 16:03:00 Memori al [place] Systolic (mm Hg) 2018-10-15 06:16:00 Inder rial [place] Diastolic (mm Hg) 2018-10-15 06:16:00 Mem orial [place] Temperature Oral (F) 2018-10-15 06:16:00 98.6 F [facility] [place] Heart Rate 2018-10-15 06:16:00 58 /min [facility] [place] Respitory Rate 2018-10-15 06:16:00 Memori al [place] Systolic (mm Hg) 2018-10-14 18:41:00 Inder rial [place] Diastolic (mm Hg) 2018-10-14 18:41:00 Mem orial [place] Temperature Oral (F) 2018-10-14 18:41:00 97 F [facility] [place] Heart Rate 2018-10-14 18:41:00 59 /min [facility] [place] Respitory Rate 2018-10-14 18:41:00 Memori al [place] Systolic (mm Hg) 2018-10-14 11:44:00 Inder rial [place] Diastolic (mm Hg) 2018-10-14 11:44:00 Mem orial [place] Temperature Oral (F) 2018-10-14 11:44:00 97.7 F [facility] [place] Heart Rate 2018-10-14 11:44:00 44 /min [facility] [place] Respitory Rate 2018-10-14 11:44:00 Memori al [place] Systolic (mm Hg) 2018-10-14 05:50:00 Inder rial [place] Diastolic (mm Hg) 2018-10-14 05:50:00 Mem orial [place] Temperature Oral (F) 2018-10-14 05:50:00 98.2 F [facility] [place] Heart Rate 2018-10-14 05:50:00 45 /min [facility] [place] Respitory Rate 2018-10-14 05:50:00 Memori al [place] Systolic (mm Hg) 2018-10-14 05:46:00 Inder rial [place] Diastolic (mm Hg) 2018-10-14 05:46:00 Mem orial [place] Temperature Oral (F) 2018-10-14 05:46:00 98 F [facility] [place] Heart Rate 2018-10-14 05:46:00 72 /min [facility] [place] Respitory Rate 2018-10-14 05:46:00 Memori al [place] Systolic (mm Hg) 2018-10-13 20:41:00 Inder rial [place] Diastolic (mm Hg) 2018-10-13 20:41:00 Mem orial [place] Temperature Oral (F) 2018-10-13 20:41:00 97.8 F [facility] [place] Heart Rate 2018-10-13 20:41:00 75 /min [facility] [place] Respitory Rate 2018-10-13 20:41:00 Memori al [place] Systolic (mm Hg) 2018-10-13 05:10:00 Inder rial [place] Diastolic (mm Hg) 2018-10-13 05:10:00 Mem orial [place] Temperature Oral (F) 2018-10-13 05:10:00 98.2 F [facility] [place] Heart Rate 2018-10-13 05:10:00 52 /min [facility] [place] Respitory Rate 2018-10-13 05:10:00 Memori al [place] Systolic (mm Hg) 2018-10-12 20:13:00 Inder rial [place] Diastolic (mm Hg) 2018-10-12 20:13:00 Mem orial [place] Temperature Oral (F) 2018-10-12 20:13:00 98.9 F [facility] [place] Heart Rate 2018-10-12 20:13:00 65 /min [facility] [place] Respitory Rate 2018-10-12 20:13:00 Memori al [place] Systolic (mm Hg) 2018-10-12 04:07:00 Inder rial [place] Diastolic (mm Hg) 2018-10-12 04:07:00 Mem orial [place] Temperature Oral (F) 2018-10-12 04:07:00 98.9 F [facility] [place] Heart Rate 2018-10-12 04:07:00 60 /min [facility] [place] Respitory Rate 2018-10-12 04:07:00 Memori al [place] Systolic (mm Hg) 2018-10-11 19:38:00 Inder rial [place] Diastolic (mm Hg) 2018-10-11 19:38:00 Mem orial [place] Temperature Oral (F) 2018-10-11 19:38:00 97 F [facility] [place] Heart Rate 2018-10-11 19:38:00 54 /min [facility] [place] Respitory Rate 2018-10-11 19:38:00 Memori al [place] Systolic (mm Hg) 2018-10-11 11:23:00 Inder rial [place] Diastolic (mm Hg) 2018-10-11 11:23:00 Mem orial [place] Temperature Oral (F) 2018-10-11 11:23:00 98.2 F [facility] [place] Heart Rate 2018-10-11 11:23:00 50 /min [facility] [place] Respitory Rate 2018-10-11 11:23:00 Memori al [place] Systolic (mm Hg) 2018-10-11 04:56:00 Inder rial [place] Diastolic (mm Hg) 2018-10-11 04:56:00 Mem orial [place] Temperature Oral (F) 2018-10-11 04:56:00 98.7 F [facility] [place] Heart Rate 2018-10-11 04:56:00 62 /min [facility] [place] Respitory Rate 2018-10-11 04:56:00 Memori al [place] Systolic (mm Hg) 2018-10-10 18:27:00 Inder rial [place] Diastolic (mm Hg) 2018-10-10 18:27:00 Mem orial [place] Temperature Oral (F) 2018-10-10 18:27:00 97 F [facility] [place] Heart Rate 2018-10-10 18:27:00 53 /min [facility] [place] Respitory Rate 2018-10-10 18:27:00 Memori al [place] Systolic (mm Hg) 2018-10-10 15:17:00 Inder rial [place] Diastolic (mm Hg) 2018-10-10 15:17:00 Mem orial [place] Temperature Oral (F) 2018-10-10 15:17:00 98.2 F [facility] [place] Heart Rate 2018-10-10 15:17:00 50 /min [facility] [place] Respitory Rate 2018-10-10 15:17:00 Memori al [place] Systolic (mm Hg) 2018-10-10 04:27:00 Inder rial [place] Diastolic (mm Hg) 2018-10-10 04:27:00 Mem orial [place] Temperature Oral (F) 2018-10-10 04:27:00 98.6 F [facility] [place] Heart Rate 2018-10-10 04:27:00 64 /min [facility] [place] Respitory Rate 2018-10-10 04:27:00 Memori al [place] Systolic (mm Hg) 2018-10-09 19:57:00 Inder rial [place] Diastolic (mm Hg) 2018-10-09 19:57:00 Mem orial [place] Temperature Oral (F) 2018-10-09 19:57:00 98.6 F [facility] [place] Heart Rate 2018-10-09 19:57:00 58 /min [facility] [place] Respitory Rate 2018-10-09 19:57:00 Memori al [place] Systolic (mm Hg) 2018-10-09 03:42:00 Inder rial [place] Diastolic (mm Hg) 2018-10-09 03:42:00 Mem orial [place] Temperature Oral (F) 2018-10-09 03:42:00 98.7 F [facility] [place] Heart Rate 2018-10-09 03:42:00 60 /min [facility] [place] Respitory Rate 2018-10-09 03:42:00 Memori al [place] Systolic (mm Hg) 2018-10-08 18:57:00 Inder rial [place] Diastolic (mm Hg) 2018-10-08 18:57:00 Mem orial [place] Temperature Oral (F) 2018-10-08 18:57:00 97 F [facility] [place] Heart Rate 2018-10-08 18:57:00 69 /min [facility] [place] Respitory Rate 2018-10-08 18:57:00 Memori al [place] Systolic (mm Hg) 2018-10-08 13:47:00 Inder rial [place] Diastolic (mm Hg) 2018-10-08 13:47:00 Mem orial [place] Temperature Oral (F) 2018-10-08 13:47:00 98.4 F [facility] [place] Heart Rate 2018-10-08 13:47:00 50 /min [facility] [place] Respitory Rate 2018-10-08 13:47:00 Memori al [place] Systolic (mm Hg) 2018-10-08 11:28:36 Inder rial [place] Diastolic (mm Hg) 2018-10-08 11:28:36 Mem o[facility] [place] Heart Rate 2018-10-08 11:28:36 50 /min [facility] [place] Systolic (mm Hg) 2018-10-08 05:22:00 Inder rial [place] Diastolic (mm Hg) 2018-10-08 05:22:00 Mem orial [place] Temperature Oral (F) 2018-10-08 05:22:00 98.2 F [facility] [place] Heart Rate 2018-10-08 05:22:00 62 /min [facility] [place] Respitory Rate 2018-10-08 05:22:00 Memori al [place] Systolic (mm Hg) 2018-10-07 19:00:00 Inder rial [place] Diastolic (mm Hg) 2018-10-07 19:00:00 Mem o[facility] [place] Temperature Oral (F) 2018-10-07 19:00:00 97 F [facility] Heart Rate 2018-10-07 19:00:00 64 /min [facility] Respitory Rate 2018-10-07 19:00:00 [facility] Systolic (mm Hg) 2018-10-07 16:55:00 [facility] Diastolic (mm Hg) 2018-10-07 16:55:00 [facility] Temperature Oral (F) 2018-10-07 16:55:00 98.2 F [facility] Heart Rate 2018-10-07 16:55:00 49 /min [facility] Respitory Rate 2018-10-07 16:55:00 [facility] Systolic (mm Hg) 2018-10-07 12:16:59 [facility] Diastolic (mm Hg) 2018-10-07 12:16:59 [facility] Heart Rate 2018-10-07 12:16:59 49 /min [facility] Systolic (mm Hg) 2018-10-07 03:55:00 [facility] Diastolic (mm Hg) 2018-10-07 03:55:00 [facility] Temperature Oral (F) 2018-10-07 03:55:00 98.2 F [facility] Heart Rate 2018-10-07 03:55:00 60 /min [facility] Respitory Rate 2018-10-07 03:55:00 [facility] Systolic (mm Hg) 2018-10-06 12:16:00 [facility] Diastolic (mm Hg) 2018-10-06 12:16:00 [facility] Temperature Oral (F) 2018-10-06 12:16:00 98.6 F [facility] Heart Rate 2018-10-06 12:16:00 50 /min [facility] Respitory Rate 2018-10-06 12:16:00 [facility] Systolic (mm Hg) 2018-10-06 12:05:38 [facility] Diastolic (mm Hg) 2018-10-06 12:05:38 [facility] Heart Rate 2018-10-06 12:05:38 50 /min [facility] Systolic (mm Hg) 2018-10-06 04:06:00 [facility] Diastolic (mm Hg) 2018-10-06 04:06:00 [facility] Temperature Oral (F) 2018-10-06 04:06:00 98.4 F [facility] Heart Rate 2018-10-06 04:06:00 62 /min [facility] Respitory Rate 2018-10-06 04:06:00 [facility] Systolic (mm Hg) 2018-10-05 05:22:00 [facility]der [facility] Diastolic (mm Hg) 2018-10-05 05:22:00 [facility] Temperature Oral (F) 2018-10-05 05:22:00 98.6 F [facility] Heart Rate 2018-10-05 05:22:00 58 /min [facility] Respitory Rate 2018-10-05 05:22:00 [facility] Systolic (mm Hg) 2018-10-04 20:45:00 [facility] Diastolic (mm Hg) 2018-10-04 20:45:00 [facility] Temperature Oral (F) 2018-10-04 20:45:00 98.6 F [facility] Heart Rate 2018-10-04 20:45:00 53 /min [facility] Respitory Rate 2018-10-04 20:45:00 [facility] Systolic (mm Hg) 2018-10-04 13:31:47 [facility] Diastolic (mm Hg) 2018-10-04 13:31:47 [facility] Heart Rate 2018-10-04 13:31:47 44 /min [facility] Systolic (mm Hg) 2018-10-04 05:03:00 [facility] Diastolic (mm Hg) 2018-10-04 05:03:00 [facility] Temperature Oral (F) 2018-10-04 05:03:00 98.7 F [facility] Heart Rate 2018-10-04 05:03:00 58 /min [facility] Respitory Rate 2018-10-04 05:03:00 [facility] Systolic (mm Hg) 2018-10-03 19:43:00 [facility] Diastolic (mm Hg) 2018-10-03 19:43:00 [facility] Temperature Oral (F) 2018-10-03 19:43:00 97 F [facility] Heart Rate 2018-10-03 19:43:00 62 /min [facility] Respitory Rate 2018-10-03 19:43:00 [facility] Systolic (mm Hg) 2018-10-03 12:54:02 [facility] Diastolic (mm Hg) 2018-10-03 12:54:02 [facility] Heart Rate 2018-10-03 12:54:02 58 /min [facility] Systolic (mm Hg) 2018-10-03 05:20:00 [facility] Diastolic (mm Hg) 2018-10-03 05:20:00 [facility] Temperature Oral (F) 2018-10-03 05:20:00 98.6 F [facility] Heart Rate 2018-10-03 05:20:00 50 /min [facility] Respitory Rate 2018-10-03 05:20:00 [facility] Systolic (mm Hg) 2018-10-02 20:13:00 [facility] Diastolic (mm Hg) 2018-10-02 20:13:00 [facility] Temperature Oral (F) 2018-10-02 20:13:00 98.9 F [facility] Heart Rate 2018-10-02 20:13:00 52 /min [facility] Respitory Rate 2018-10-02 20:13:00 [facility] Systolic (mm Hg) 2018-10-02 15:42:00 [facility] Diastolic (mm Hg) 2018-10-02 15:42:00 [facility] Temperature Oral (F) 2018-10-02 15:42:00 98.6 F [facility] Heart Rate 2018-10-02 15:42:00 53 /min [facility] Respitory Rate 2018-10-02 15:42:00 [facility] Systolic (mm Hg) 2018-10-02 13:39:16 [facility] Diastolic (mm Hg) 2018-10-02 13:39:16 [facility] Heart Rate 2018-10-02 13:39:16 53 /min [facility] Systolic (mm Hg) 2018-10-02 07:17:00 [facility] Diastolic (mm Hg) 2018-10-02 07:17:00 [facility] Temperature Oral (F) 2018-10-02 07:17:00 98.2 F [facility] Heart Rate 2018-10-02 07:17:00 58 /min [facility] Respitory Rate 2018-10-02 07:17:00 [facility] Systolic (mm Hg) 2018-10-02 00:57:00 [facility] Diastolic (mm Hg) 2018-10-02 00:57:00 [facility] Temperature Oral (F) 2018-10-02 00:57:00 98.7 F [facility] Respitory Rate 2018-10-02 00:57:00 [facility] Heart Rate 2018-10-02 00:57:00 57 /min [facility] Weight 2018-10-01 23:47:00 [facility] Systolic (mm Hg) 2017-07-26 10:42:00 [facility] Diastolic (mm Hg) 2017-07-26 10:42:00 [facility] Temperature Oral (F) 2017-07-26 10:42:00 97.8 F [facility] Heart Rate 2017-07-26 10:42:00 69 /min [facility] Respitory Rate 2017-07-26 10:42:00 [facility] Systolic (mm Hg) 2017-07-26 05:12:00 [facility] Diastolic (mm Hg) 2017-07-26 05:12:00 [facility] Temperature Oral (F) 2017-07-26 05:12:00 97.8 F [facility] Heart Rate 2017-07-26 05:12:00 68 /min [facility] Respitory Rate 2017-07-26 05:12:00 [facility] Systolic (mm Hg) 2017-07-25 10:55:00 [facility] Diastolic (mm Hg) 2017-07-25 10:55:00 [facility] Temperature Oral (F) 2017-07-25 10:55:00 98.4 F [facility] Heart Rate 2017-07-25 10:55:00 86 /min [facility] Respitory Rate 2017-07-25 10:55:00 [facility] Systolic (mm Hg) 2017-07-25 04:51:00 [facility] Diastolic (mm Hg) 2017-07-25 04:51:00 [facility] Temperature Oral (F) 2017-07-25 04:51:00 97.8 F [facility] Heart Rate 2017-07-25 04:51:00 67 /min [facility] Respitory Rate 2017-07-25 04:51:00 [facility] Systolic (mm Hg) 2017-07-24 21:09:00 [facility] Diastolic (mm Hg) 2017-07-24 21:09:00 [facility] Temperature Oral (F) 2017-07-24 21:09:00 99.1 F [facility] Heart Rate 2017-07-24 21:09:00 81 /min [facility] Respitory Rate 2017-07-24 21:09:00 [facility] Systolic (mm Hg) 2017-07-24 15:25:00 [facility] Diastolic (mm Hg) 2017-07-24 15:25:00 [facility] Temperature Oral (F) 2017-07-24 15:25:00 98.6 F [facility] Heart Rate 2017-07-24 15:25:00 95 /min [facility] Respitory Rate 2017-07-24 15:25:00 [facility] Systolic (mm Hg) 2017-07-24 09:38:00 [facility] Diastolic (mm Hg) 2017-07-24 09:38:00 [facility] Temperature Oral (F) 2017-07-24 09:38:00 98 F [facility] Heart Rate 2017-07-24 09:38:00 82 /min [facility] Respitory Rate 2017-07-24 09:38:00 [facility] Systolic (mm Hg) 2017-07-24 01:29:00 [facility] Diastolic (mm Hg) 2017-07-24 01:29:00 [facility] Temperature Oral (F) 2017-07-24 01:29:00 98 F [facility] Heart Rate 2017-07-24 01:29:00 75 /min [facility] Respitory Rate 2017-07-24 01:29:00 [facility] Systolic (mm Hg) 2017-07-23 10:35:00 [facility] Diastolic (mm Hg) 2017-07-23 10:35:00 [facility] Temperature Oral (F) 2017-07-23 10:35:00 99.8 F [facility] Heart Rate 2017-07-23 10:35:00 83 /min [facility] Respitory Rate 2017-07-23 10:35:00 [facility] Systolic (mm Hg) 2017-07-22 18:11:00 [facility] Diastolic (mm Hg) 2017-07-22 18:11:00 [facility] Temperature Oral (F) 2017-07-22 18:11:00 98.2 F [facility] Heart Rate 2017-07-22 18:11:00 70 /min [facility] Respitory Rate 2017-07-22 18:11:00 [facility] Systolic (mm Hg) 2017-07-22 10:50:00 [facility] Diastolic (mm Hg) 2017-07-22 10:50:00 [facility] Temperature Oral (F) 2017-07-22 10:50:00 98 F [facility] Heart Rate 2017-07-22 10:50:00 62 /min [facility] Respitory Rate 2017-07-22 10:50:00 [facility] Systolic (mm Hg) 2017-07-21 18:56:00 [facility] Diastolic (mm Hg) 2017-07-21 18:56:00 [facility] Temperature Oral (F) 2017-07-21 18:56:00 97.7 F [facility] Heart Rate 2017-07-21 18:56:00 67 /min [facility] Respitory Rate 2017-07-21 18:56:00 [facility] Systolic (mm Hg) 2017-07-21 10:51:00 [facility] Diastolic (mm Hg) 2017-07-21 10:51:00 [facility] Temperature Oral (F) 2017-07-21 10:51:00 97.7 F [facility] Heart Rate 2017-07-21 10:51:00 74 /min [facility] Respitory Rate 2017-07-21 10:51:00 [facility] Systolic (mm Hg) 2017-07-20 20:03:00 [facility] Diastolic (mm Hg) 2017-07-20 20:03:00 [facility] Temperature Oral (F) 2017-07-20 20:03:00 98.6 F [facility] Heart Rate 2017-07-20 20:03:00 83 /min [facility] Respitory Rate 2017-07-20 20:03:00 [facility] Systolic (mm Hg) 2017-07-20 17:57:00 [facility] Diastolic (mm Hg) 2017-07-20 17:57:00 [facility] Temperature Oral (F) 2017-07-20 17:57:00 97.8 F [facility] Heart Rate 2017-07-20 17:57:00 82 /min [facility] Respitory Rate 2017-07-20 17:57:00 [facility] Systolic (mm Hg) 2017-07-20 05:53:00 [facility] Diastolic (mm Hg) 2017-07-20 05:53:00 [facility] Temperature Oral (F) 2017-07-20 05:53:00 97.3 F [facility] Heart Rate 2017-07-20 05:53:00 63 /min [facility] Respitory Rate 2017-07-20 05:53:00 [facility] Systolic (mm Hg) 2017-07-19 19:09:00 [facility] Diastolic (mm Hg) 2017-07-19 19:09:00 [facility] Temperature Oral (F) 2017-07-19 19:09:00 98.4 F [facility] Heart Rate 2017-07-19 19:09:00 88 /min [facility] Respitory Rate 2017-07-19 19:09:00 [facility] Systolic (mm Hg) 2017-07-19 12:57:00 [facility] Diastolic (mm Hg) 2017-07-19 12:57:00 [facility] Temperature Oral (F) 2017-07-19 12:57:00 98.7 F [facility] Heart Rate 2017-07-19 12:57:00 87 /min [facility] Respitory Rate 2017-07-19 12:57:00 [facility] Systolic (mm Hg) 2017-07-19 05:19:00 [facility] Diastolic (mm Hg) 2017-07-19 05:19:00 [facility] Temperature Oral (F) 2017-07-19 05:19:00 98.1 F [facility] Rate 2017-07-19 05:19:00 73 /min [facility] Respitory Rate 2017-07-19 05:19:00 [facility] Systolic (mm Hg) 2017-07-18 19:56:00 [facility] Diastolic (mm Hg) 2017-07-18 19:56:00 [facility] Temperature Oral (F) 2017-07-18 19:56:00 99.6 F [facility] Heart Rate 2017-07-18 19:56:00 78 /min [facility] Respitory Rate 2017-07-18 19:56:00 [facility] Systolic (mm Hg) 2017-07-18 17:23:00 [facility] Diastolic (mm Hg) 2017-07-18 17:23:00 [facility] Temperature Oral (F) 2017-07-18 17:23:00 98.2 F [facility] Heart Rate 2017-07-18 17:23:00 88 /min [facility] Respitory Rate 2017-07-18 17:23:00 [facility] Systolic (mm Hg) 2017-07-18 06:56:00 [facility] Diastolic (mm Hg) 2017-07-18 06:56:00 [facility] Temperature Oral (F) 2017-07-18 06:56:00 98.7 F [facility] Heart Rate 2017-07-18 06:56:00 77 /min [facility] Respitory Rate 2017-07-18 06:56:00 [facility] Systolic (mm Hg) 2017-07-17 19:07:00 [facility] Diastolic (mm Hg) 2017-07-17 19:07:00 [facility] Temperature Oral (F) 2017-07-17 19:07:00 98.4 F [facility] Heart Rate 2017-07-17 19:07:00 74 /min [facility] Respitory Rate 2017-07-17 19:07:00 [facility] Systolic (mm Hg) 2017-07-17 05:03:00 [facility] Diastolic (mm Hg) 2017-07-17 05:03:00 [facility] Temperature Oral (F) 2017-07-17 05:03:00 98.2 F [facility] Heart Rate 2017-07-17 05:03:00 66 /min [facility] Respitory Rate 2017-07-17 05:03:00 [facility] Systolic (mm Hg) 2017-07-16 19:13:00 [facility] Diastolic (mm Hg) 2017-07-16 19:13:00 [facility] Temperature Oral (F) 2017-07-16 19:13:00 98.2 F [facility] Heart Rate 2017-07-16 19:13:00 78 /min [facility] Respitory Rate 2017-07-16 19:13:00 [facility] Systolic (mm Hg) 2017-07-16 14:01:00 [facility] Diastolic (mm Hg) 2017-07-16 14:01:00 [facility] Temperature Oral (F) 2017-07-16 14:01:00 98.7 F [facility] Heart Rate 2017-07-16 14:01:00 77 /min [facility] Respitory Rate 2017-07-16 14:01:00 [facility] Systolic (mm Hg) 2017-07-16 03:51:00 [facility] Diastolic (mm Hg) 2017-07-16 03:51:00 [facility] Temperature Oral (F) 2017-07-16 03:51:00 98 F [facility] Heart Rate 2017-07-16 03:51:00 68 /min [facility] Respitory Rate 2017-07-16 03:51:00 [facility] Systolic (mm Hg) 2017-07-15 20:14:00 [facility] Diastolic (mm Hg) 2017-07-15 20:14:00 [facility] Temperature Oral (F) 2017-07-15 20:14:00 98.2 F [facility] Heart Rate 2017-07-15 20:14:00 85 /min [facility] Respitory Rate 2017-07-15 20:14:00 [facility] Systolic (mm Hg) 2017-07-15 10:42:00 [facility] Diastolic (mm Hg) 2017-07-15 10:42:00 [facility] Temperature Oral (F) 2017-07-15 10:42:00 98.4 F [facility] Heart Rate 2017-07-15 10:42:00 72 /min [facility] Respitory Rate 2017-07-15 10:42:00 [facility] Systolic (mm Hg) 2017-07-15 04:08:00 [facility] Diastolic (mm Hg) 2017-07-15 04:08:00 [facility] Temperature Oral (F) 2017-07-15 04:08:00 98.6 F [facility] Heart Rate 2017-07-15 04:08:00 75 /min [facility] Respitory Rate 2017-07-15 04:08:00 [facility] Systolic (mm Hg) 2017-07-14 19:32:00 [facility] Diastolic (mm Hg) 2017-07-14 19:32:00 [facility] Temperature Oral (F) 2017-07-14 19:32:00 98.6 F [facility] Heart Rate 2017-07-14 19:32:00 75 /min [facility] Respitory Rate 2017-07-14 19:32:00 [facility] Systolic (mm Hg) 2017-07-14 12:46:00 [facility] Diastolic (mm Hg) 2017-07-14 12:46:00 [facility] Temperature Oral (F) 2017-07-14 12:46:00 97.8 F [facility] Heart Rate 2017-07-14 12:46:00 64 /min [facility] Respitory Rate 2017-07-14 12:46:00 [facility] Systolic (mm Hg) 2017-07-14 04:14:00 [facility] Diastolic (mm Hg) 2017-07-14 04:14:00 [facility] Temperature Oral (F) 2017-07-14 04:14:00 98.4 F [facility] Heart Rate 2017-07-14 04:14:00 81 /min [facility] Respitory Rate 2017-07-14 04:14:00 [facility] Systolic (mm Hg) 2017-07-13 20:54:00 [facility] Diastolic (mm Hg) 2017-07-13 20:54:00 [facility] Temperature Oral (F) 2017-07-13 20:54:00 98.7 F [facility] Heart Rate 2017-07-13 20:54:00 73 /min [facility] Respitory Rate 2017-07-13 20:54:00 [facility] Systolic (mm Hg) 2017-07-13 14:09:00 [facility] Diastolic (mm Hg) 2017-07-13 14:09:00 [facility] Temperature Oral (F) 2017-07-13 14:09:00 98.2 F [facility] Heart Rate 2017-07-13 14:09:00 71 /min [facility] Respitory Rate 2017-07-13 14:09:00 [facility] Systolic (mm Hg) 2017-07-13 04:08:00 [facility] Diastolic (mm Hg) 2017-07-13 04:08:00 [facility] Temperature Oral (F) 2017-07-13 04:08:00 97.9 F [facility] Heart Rate 2017-07-13 04:08:00 79 /min [facility] Respitory Rate 2017-07-13 04:08:00 [facility] Systolic (mm Hg) 2017-07-12 19:29:00 [facility] Diastolic (mm Hg) 2017-07-12 19:29:00 [facility] Temperature Oral (F) 2017-07-12 19:29:00 98.9 F [facility] Heart Rate 2017-07-12 19:29:00 81 /min [facility] Respitory Rate 2017-07-12 19:29:00 [facility] Systolic (mm Hg) 2017-07-12 14:02:00 [facility] Diastolic (mm Hg) 2017-07-12 14:02:00 [facility] Temperature Oral (F) 2017-07-12 14:02:00 98 F [facility] Heart Rate 2017-07-12 14:02:00 60 /min [facility] Respitory Rate 2017-07-12 14:02:00 [facility] Systolic (mm Hg) 2017-07-12 03:57:00 [facility] Diastolic (mm Hg) 2017-07-12 03:57:00 [facility] Temperature Oral (F) 2017-07-12 03:57:00 98.2 F [facility] Heart Rate 2017-07-12 03:57:00 79 /min [facility] Respitory Rate 2017-07-12 03:57:00 [facility] Systolic (mm Hg) 2017-07-11 19:48:00 [facility] Diastolic (mm Hg) 2017-07-11 19:48:00 [facility] Temperature Oral (F) 2017-07-11 19:48:00 98.9 F [facility] Heart Rate 2017-07-11 19:48:00 72 /min [facility] Respitory Rate 2017-07-11 19:48:00 [facility] Systolic (mm Hg) 2017-07-11 15:18:00 [facility] Diastolic (mm Hg) 2017-07-11 15:18:00 [facility] Temperature Oral (F) 2017-07-11 15:18:00 97.8 F [facility] Heart Rate 2017-07-11 15:18:00 76 /min [facility] Respitory Rate 2017-07-11 15:18:00 [facility] Systolic (mm Hg) 2017-07-10 23:55:00 [facility] Diastolic (mm Hg) 2017-07-10 23:55:00 [facility] Temperature Oral (F) 2017-07-10 23:55:00 98.4 F [facility] Heart Rate 2017-07-10 23:55:00 83 /min [facility] Respitory Rate 2017-07-10 23:55:00 [facility] Systolic (mm Hg) 2017-07-10 14:36:00 [facility] Diastolic (mm Hg) 2017-07-10 14:36:00 [facility] Temperature Oral (F) 2017-07-10 14:36:00 98.4 F [facility] Heart Rate 2017-07-10 14:36:00 63 /min [facility] Respitory Rate 2017-07-10 14:36:00 [facility] Systolic (mm Hg) 2017-07-10 05:24:00 [facility] Diastolic (mm Hg) 2017-07-10 05:24:00 [facility] Temperature Oral (F) 2017-07-10 05:24:00 97.8 F [facility] Heart Rate 2017-07-10 05:24:00 74 /min [facility] Respitory Rate 2017-07-10 05:24:00 [facility] Systolic (mm Hg) 2017-07-09 19:44:00 [facility] Diastolic (mm Hg) 2017-07-09 19:44:00 [facility] Temperature Oral (F) 2017-07-09 19:44:00 100.2 F [facility] Heart Rate 2017-07-09 19:44:00 87 /min [facility] Respitory Rate 2017-07-09 19:44:00 [facility] Systolic (mm Hg) 2017-07-09 12:32:00 [facility] Diastolic (mm Hg) 2017-07-09 12:32:00 [facility] Temperature Oral (F) 2017-07-09 12:32:00 98.4 F [facility] Heart Rate 2017-07-09 12:32:00 73 /min [facility] Respitory Rate 2017-07-09 12:32:00 [facility] Systolic (mm Hg) 2017-07-09 05:54:00 [facility] Diastolic (mm Hg) 2017-07-09 05:54:00 [facility] Temperature Oral (F) 2017-07-09 05:54:00 98.7 F [facility] Heart Rate 2017-07-09 05:54:00 66 /min [facility] Respitory Rate 2017-07-09 05:54:00 [facility] Systolic (mm Hg) 2017-07-08 19:00:00 [facility] Diastolic (mm Hg) 2017-07-08 19:00:00 [facility] Temperature Oral (F) 2017-07-08 19:00:00 99.1 F [facility] Heart Rate 2017-07-08 19:00:00 85 /min [facility] Respitory Rate 2017-07-08 19:00:00 [facility] Systolic (mm Hg) 2017-07-08 16:07:00 [facility] Diastolic (mm Hg) 2017-07-08 16:07:00 [facility] Temperature Oral (F) 2017-07-08 16:07:00 99.1 F [facility] Heart Rate 2017-07-08 16:07:00 68 /min [facility] Respitory Rate 2017-07-08 16:07:00 [facility] Weight 2017-07-08 13:58:00 [facility] Systolic (mm Hg) 2017-07-08 06:04:00 [facility] Diastolic (mm Hg) 2017-07-08 06:04:00 [facility] Temperature Oral (F) 2017-07-08 06:04:00 97.3 F [facility] Heart Rate 2017-07-08 06:04:00 77 /min [facility] Respitory Rate 2017-07-08 06:04:00 [facility] Systolic (mm Hg) 2017-07-07 19:42:00 [facility] Diastolic (mm Hg) 2017-07-07 19:42:00 [facility] Temperature Oral (F) 2017-07-07 19:42:00 99.1 F [facility] Heart Rate 2017-07-07 19:42:00 85 /min [facility] Respitory Rate 2017-07-07 19:42:00 [facility] Systolic (mm Hg) 2017-07-07 10:39:00 [facility] Diastolic (mm Hg) 2017-07-07 10:39:00 [facility] Temperature Oral (F) 2017-07-07 10:39:00 98.4 F [facility] Heart Rate 2017-07-07 10:39:00 59 /min [facility] Respitory Rate 2017-07-07 10:39:00 [facility] Systolic (mm Hg) 2017-07-07 01:02:00 [facility] Diastolic (mm Hg) 2017-07-07 01:02:00 [facility] Temperature Oral (F) 2017-07-07 01:02:00 100.7 F [facility] Heart Rate 2017-07-07 01:02:00 86 /min [facility] Respitory Rate 2017-07-07 01:02:00 [facility] Systolic (mm Hg) 2017-07-06 13:21:00 [facility] Diastolic (mm Hg) 2017-07-06 13:21:00 [facility] Temperature Oral (F) 2017-07-06 13:21:00 98.7 F [facility] Heart Rate 2017-07-06 13:21:00 73 /min [facility] Respitory Rate 2017-07-06 13:21:00 [facility] Systolic (mm Hg) 2017-07-06 05:07:00 [facility] Diastolic (mm Hg) 2017-07-06 05:07:00 [facility] Temperature Oral (F) 2017-07-06 05:07:00 98.6 F [facility] Heart Rate 2017-07-06 05:07:00 79 /min [facility] Respitory Rate 2017-07-06 05:07:00 [facility] Systolic (mm Hg) 2017-07-05 18:49:00 [facility] Diastolic (mm Hg) 2017-07-05 18:49:00 [facility] Temperature Oral (F) 2017-07-05 18:49:00 98.4 F [facility] Heart Rate 2017-07-05 18:49:00 78 /min [facility] Respitory Rate 2017-07-05 18:49:00 [facility] Systolic (mm Hg) 2017-07-05 16:26:00 [facility] Diastolic (mm Hg) 2017-07-05 16:26:00 [facility] Temperature Oral (F) 2017-07-05 16:26:00 98.6 F [facility] Heart Rate 2017-07-05 16:26:00 69 /min [facility] Respitory Rate 2017-07-05 16:26:00 [facility] Systolic (mm Hg) 2017-07-05 06:18:00 [facility] Diastolic (mm Hg) 2017-07-05 06:18:00 [facility] Temperature Oral (F) 2017-07-05 06:18:00 98.4 F [facility] Heart Rate 2017-07-05 06:18:00 72 /min [facility] Respitory Rate 2017-07-05 06:18:00 [facility] Systolic (mm Hg) 2017-07-04 19:40:00 [facility] Diastolic (mm Hg) 2017-07-04 19:40:00 [facility] Temperature Oral (F) 2017-07-04 19:40:00 98.4 F [facility] Heart Rate 2017-07-04 19:40:00 78 /min [facility] Respitory Rate 2017-07-04 19:40:00 [facility] Systolic (mm Hg) 2017-07-04 17:31:00 [facility] Diastolic (mm Hg) 2017-07-04 17:31:00 [facility] Temperature Oral (F) 2017-07-04 17:31:00 98 F [facility] Heart Rate 2017-07-04 17:31:00 71 /min [facility] Respitory Rate 2017-07-04 17:31:00 [facility] Systolic (mm Hg) 2017-07-04 13:01:54 [facility] Diastolic (mm Hg) 2017-07-04 13:01:54 [facility] Heart Rate 2017-07-04 13:01:54 71 /min [facility] Systolic (mm Hg) 2017-07-04 05:14:00 [facility] Diastolic (mm Hg) 2017-07-04 05:14:00 [facility] Temperature Oral (F) 2017-07-04 05:14:00 98 F [facility] Heart Rate 2017-07-04 05:14:00 86 /min [facility] Respitory Rate 2017-07-04 05:14:00 [facility] Systolic (mm Hg) 2017-07-04 00:52:00 [facility] Diastolic (mm Hg) 2017-07-04 00:52:00 [facility] Systolic (mm Hg) 2017-07-03 23:48:00 [facility] Diastolic (mm Hg) 2017-07-03 23:48:00 [facility] Temperature Oral (F) 2017-07-03 23:48:00 98.6 F [facility] Heart Rate 2017-07-03 23:48:00 83 /min [facility] Respitory Rate 2017-07-03 23:48:00 [facility] Temperature Oral (F) 2017-07-03 20:46:00 98.6 F [facility] Heart Rate 2017-07-03 20:46:00 83 /min [facility] Respitory Rate 2017-07-03 20:46:00 [facility] Height 2017-07-03 20:25:00 [facility] Weight 2016-01-03 18:30:00 [facility] Height 2016-01-03 18:30:00 [facility] Diastolic (mm Hg) 2016-01-03 18:30:00 [facility] Systolic (mm Hg) 2016-01-03 18:30:00 [facility] Weight 2015-10-04 19:00:00 [facility] Height 2015-10-04 19:00:00 [facility] Diastolic (mm Hg) 2015-10-04 19:00:00 [facility] Systolic (mm Hg) 2015-10-04 19:00:00 [facility] Weight 2015-07-07 19:15:00 [facility] Height 2015-07-07 19:15:00 [facility] Weight 2015-06-07 19:00:00 [facility] Height 2015-06-07 19:00:00 [facility] Diastolic (mm Hg) 2015-06-07 19:00:00 [facility] Systolic (mm Hg) 2015-06-07 19:00:00 [facility] Weight 2015-03-08 15:00:00 [facility] Height 2015-03-08 15:00:00 [facility] Diastolic (mm Hg) 2015-03-08 15:00:00 [facility] Systolic (mm Hg) 2015-03-08 15:00:00 [facility] Weight 2015-01-04 22:30:00 [facility] Height 2015-01-04 22:30:00 [facility] Diastolic (mm Hg) 2015-01-04 22:30:00 [facility] Systolic (mm Hg) 2015-01-04 22:30:00 Inder [facility]arl [facility] Weight 2014-12-24 21:30:00 [facility] Height 2014-12-24 21:30:00 [facility] Diastolic (mm Hg) 2014-12-24 21:30:00 [facility] Systolic (mm Hg) 2014-12-24 21:30:00 Inedr tiffanie [facility] Weight 2014-11-05 14:30:00 [facility] Height 2014-11-05 14:30:00 [facility] Diastolic (mm Hg) 2014-11-05 14:30:00 [facility] Systolic (mm Hg) 2014-11-05 14:30:00 [facility]arl [facility] Weight 2014-11-05 13:30:00 [facility] Height 2014-11-05 13:30:00 [facility] Diastolic (mm Hg) 2014-11-05 13:30:00 [facility] Systolic (mm Hg) 2014-11-05 13:30:00 [facility] Weight 2014-03-23 16:15:00 [facility] Height 2014-03-23 16:15:00 [facility] Diastolic (mm Hg) 2014-03-23 16:15:00 [facility] Systolic (mm Hg) 2014-03-23 16:15:00 [facility] Weight 2014-02-04 19:30:00 [facility] Height 2014-02-04 19:30:00 [facility] Diastolic (mm Hg) 2014-02-04 19:30:00 [facility] Systolic (mm Hg) 2014-02-04 19:30:00 [facility] Weight 2013-12-04 14:15:00 [facility] Height 2013-12-04 14:15:00 [facility] Diastolic (mm Hg) 2013-12-04 14:15:00 [facility] Systolic (mm Hg) 2013-12-04 14:15:00 [facility] Weight 2013-10-08 13:52:52 [facility] Systolic (mm Hg) 2013-10-08 13:52:52 [facility] Diastolic (mm Hg) 2013-10-08 13:52:52 [facility] Temperature Oral (F) 2013-10-08 13:52:52 99.4 F [facility] Heart Rate 2013-10-08 13:52:52 [facility] Respitory Rate 2013-10-08 13:52:52 [facility] Weight 2013-07-02 14:28:04 [facility] Systolic (mm Hg) 2013-07-02 14:28:04 [facility] Diastolic (mm Hg) 2013-07-02 14:28:04 [facility] Temperature Oral (F) 2013-07-02 14:28:04 99 F [facility] Heart Rate 2013-07-02 14:28:04 [facility] Respitory Rate 2013-07-02 14:28:04 [facility] Weight 2013-06-05 15:50:01 [facility] Systolic (mm Hg) 2013-06-05 15:50:01 [facility] Diastolic (mm Hg) 2013-06-05 15:50:01 [facility] [facility] Temperature Oral (F) 2013-06-05 15:50:01 99.3 F [facility] Heart Rate 2013-06-05 15:50:01 [facility] Respitory Rate 2013-06-05 15:50:01 [facility] Weight 2013-05-23 15:28:10 [facility] Systolic (mm Hg) 2013-05-23 15:28:10 [facility] Diastolic (mm Hg) 2013-05-23 15:28:10 [facility] Temperature Oral (F) 2013-05-23 15:28:10 98.7 F [facility] Heart Rate 2013-05-23 15:28:10 [facility] Weight 2013-05-05 16:22:00 [facility] Temperature Oral (F) 2013-05-05 16:22:00 98.7 F [facility] Systolic (mm Hg) 2013-05-05 16:22:00 [facility] Diastolic (mm Hg) 2013-05-05 16:22:00 [facility] Heart Rate 2013-05-05 16:22:00 [facility] Weight 2013-01-28 16:03:10 [facility] Systolic (mm Hg) 2013-01-28 16:03:10 [facility] Diastolic (mm Hg) 2013-01-28 16:03:10 [facility] Heart Rate 2013-01-28 16:03:10 [facility] Temperature Oral (F) 2013-01-28 16:03:10 98.7 F [facility] Weight 2012-05-14 21:21:23 [facility] Temperature Oral (F) 2012-05-14 21:21:23 98.6 F [facility] Heart Rate 2012-05-14 21:21:23 [facility] Systolic (mm Hg) 2012-05-14 21:21:23 [facility] Diastolic (mm Hg) 2012-05-14 21:21:23 [facility] Weight 2012-05-09 20:42:51 [facility] Systolic (mm Hg) 2012-05-09 20:42:51 [facility] Diastolic (mm Hg) 2012-05-09 20:42:51 [facility] Temperature Oral (F) 2012-05-09 20:42:51 99.3 F [facility] Heart Rate 2012-05-09 20:42:51 [facility] Weight 2012-04-24 14:39:53 [facility] Temperature Oral (F) 2012-04-24 14:39:53 99.2 F [facility] Heart Rate 2012-04-24 14:39:53 [facility] Systolic (mm Hg) 2012-04-24 14:39:53 [facility] Diastolic (mm Hg) 2012-04-24 14:39:53 [facility] Weight 2011-09-05 20:08:18 [facility] Temperature Oral (F) 2011-09-05 20:08:18 99.0 F [facility] Heart Rate 2011-09-05 20:08:18 [facility] Systolic (mm Hg) 2011-09-05 20:08:18 [facility] Diastolic (mm Hg) 2011-09-05 20:08:18 [facility] Weight 2011-03-14 20:51:50 [facility] Temperature Oral (F) 2011-03-14 20:51:50 99.2 F [facility] Heart Rate 2011-03-14 20:51:50 [facility] Systolic (mm Hg) 2011-03-14 20:51:50 [facility] Diastolic (mm Hg) 2011-03-14 20:51:50 [facility] Weight 2011-02-20 21:08:51 [facility] Temperature Oral (F) 2011-02-20 21:08:51 98.9 F [facility] Heart Rate 2011-02-20 21:08:51 [facility] Systolic (mm Hg) 2011-02-20 21:08:51 [facility] Diastolic (mm Hg) 2011-02-20 21:08:51 [facility] Weight 2011-01-26 19:47:50 [facility] Temperature Oral (F) 2011-01-26 19:47:50 99.2 F [facility] Heart Rate 2011-01-26 19:47:50 [facility] Systolic (mm Hg) 2011-01-26 19:47:50 [facility] Diastolic (mm Hg) 2011-01-26 19:47:50 [facility] Weight 2010-12-15 18:33:00 [facility] Temperature Oral (F) 2010-12-15 18:33:00 99.3 F [facility] Heart Rate 2010-12-15 18:33:00 [facility] Systolic (mm Hg) 2010-12-15 18:33:00 [facility] Diastolic (mm Hg) 2010-12-15 18:33:00 [facility] Weight 2010-12-01 18:48:50 [facility] Temperature Oral (F) 2010-12-01 18:48:50 99.6 F [facility] Heart Rate 2010-12-01 18:48:50 [facility] Systolic (mm Hg) 2010-12-01 18:48:50 [facility] Diastolic (mm Hg) 2010-12-01 18:48:50 [facility] Height 2010-09-22 15:31:42 [facility] Weight 2010-09-22 15:31:42 [facility] Temperature Oral (F) 2010-09-22 15:31:42 99.2 F [facility] Heart Rate 2010-09-22 15:31:42 [facility] Systolic (mm Hg) 2010-09-22 15:31:42 [facility] Diastolic (mm Hg) 2010-09-22 15:31:42 [facility] Systolic (mm Hg) 2010-07-20 19:31:14 [facility] Diastolic (mm Hg) 2010-07-20 19:31:14 [facility] Height 2010-07-06 18:38:06 [facility] Weight 2010-07-06 18:38:06 [facility] Heart Rate 2010-07-06 18:38:06 [facility] Systolic (mm Hg) 2010-07-06 18:38:06 [facility] Diastolic (mm Hg) 2010-07-06 18:38:06 [facility] Temperature Oral (F) 2010-06-27 19:15:00 98.9 F [facility] Heart Rate 2010-06-27 19:15:00 [facility] Systolic (mm Hg) 2010-06-27 19:15:00 [facility] Diastolic (mm Hg) 2010-06-27 19:15:00 [facility] Temperature Oral (F) 2010-06-21 18:39:11 99.4 F [facility] Heart Rate 2010-06-21 18:39:11 [facility] Systolic (mm Hg) 2010-06-21 18:39:11 [facility] Diastolic (mm Hg) 2010-06-21 18:39:11 [facility] Weight 2010-06-16 17:04:13 [facility] Height 2010-06-16 17:04:13 [facility] Systolic (mm Hg) 2010-06-16 17:04:13 [facility] Diastolic (mm Hg) 2010-06-16 17:04:13 [facility] Height 2010-06-02 15:04:56 [facility] Weight 2010-06-02 15:04:56 [facility] Heart Rate 2010-06-02 15:04:56 [facility] Systolic (mm Hg) 2010-06-02 15:04:56 [facility] Diastolic (mm Hg) 2010-06-02 15:04:56 [facility] Height 2010-05-27 16:34:51 [facility] Weight 2010-05-27 16:34:51 [facility] Systolic (mm Hg) 2010-05-27 16:34:51 [facility] Diastolic (mm Hg) 2010-05-27 16:34:51 [facility] Heart Rate 2010-05-27 16:34:51 [facility] Systolic (mm Hg) 2010-05-24 17:32:36 [facility] Diastolic (mm Hg) 2010-05-24 17:32:36 [facility] Temperature Oral (F) 2010-05-24 16:21:21 99.2 F [facility] Heart Rate 2010-05-24 16:21:21 [facility] Systolic (mm Hg) 2010-05-24 16:21:21 [facility] Diastolic (mm Hg) 2010-05-24 16:21:21 [facility] Weight 2010-05-24 16:21:21 [facility] Height 2010-05-18 19:38:33 [facility] Weight 2010-05-18 19:38:33 [facility] Systolic (mm Hg) 2010-05-18 19:38:33 [facility] Diastolic (mm Hg) 2010-05-18 19:38:33 [facility] Height 2010-05-04 20:14:07 [facility] Weight 2010-05-04 20:14:07 [facility] Systolic (mm Hg) 2010-05-04 20:14:07 [facility] Diastolic (mm Hg) 2010-05-04 20:14:07 [facility] Heart Rate 2010-05-04 20:14:07 [facility] Weight 2010-04-06 21:03:11 [facility] Temperature Oral (F) 2010-04-06 21:03:11 99.6 F [facility] Heart Rate 2010-04-06 21:03:11 [facility] Systolic (mm Hg) 2010-04-06 21:03:11 [facility] Diastolic (mm Hg) 2010-04-06 21:03:11 [facility] Height 2010-03-14 15:45:40 [facility] Weight 2010-03-14 15:45:40 [facility] Temperature Oral (F) 2010-03-14 15:45:40 99.2 F [facility] Heart Rate 2010-03-14 15:45:40 [facility] Systolic (mm Hg) 2010-03-14 15:45:40 [facility] Diastolic (mm Hg) 2010-03-14 15:45:40 [facility] Height 2010-01-26 19:53:01 [facility] Weight 2010-01-26 19:53:01 [facility] Temperature Oral (F) 2010-01-26 19:53:01 99.2 F [facility] Heart Rate 2010-01-26 19:53:01 [facility] Systolic (mm Hg) 2010-01-26 19:53:01 [facility] Diastolic (mm Hg) 2010-01-26 19:53:01 [facility] Procedures Procedure Date / Time Performed Performing Clinician [facility] e mammogram 2007-04-03 20:53:01 Aleshia mcguire bone density 2005-02-13 19:44:42 Aleshia mcguire Plan of Care Planned Activity Planned Date Details Comments Source Future Scheduled 2019-12-[address] [facility] - Test 00:00:00 (#1) [code = [facility] INFLUENZA VACCINE (#1)] Future Scheduled 2015-06-[address] [facility] - Test 00:00:00 WELLNESS (YEAR [facility] or [facility] FIRST YEAR if no IPPE) [code = MEDICARE ANNUAL WELLNESS (YEAR 2 or FIRST YEAR if no IPPE)] Future Scheduled [address] [facility] - Test 00:00:00 malignant neoplasm [facility] enter of breast (procedure) [code = 778993730] Future Scheduled [address] [facility] - Test 00:00:00 malignant neoplasm Medical [facility] enter of colon (procedure) [code = 744771305] Encounters Start End Encounter Admission Attending Care Care Encounter Source Date/Time Date/Time Type Type Clinicians Facility Department ID 2018-10-01 2018-10-22 Outpatient [facility] [id number] 00:00:00 00:00:00 [id number] 2018-09-24 2018-09-22 Inpatient [facility] MED [id number] 16:43:00 13:56:00 2017-07-03 2017-07-26 Outpatient MHIE DANAE [id number] 00:00:00 00:00:00 [id number] 2016-05-17 2016-05-17 Outpatient Bria Fraser, [id number] [facility]Clinic 11:37:00 11:37:00 Gaurav briceño 2016-05-03 2016-05-03 Outpatient Bria Fraser, [id number] eClinic 09:31:00 09:31:00 Gaurav briceño 2016-03-20 2016-03-20 Outpatient Bria Fraser, [id number] eClinic 12:57:00 12:57:00 Gaurav briceño 2016-03-09 2016-03-09 Outpatient Bria Fraser, [id number] eClinic 14:08:00 14:08:00 Gaurav briceño 2016-01-03 2016-01-03 Outpatient Bria Fraser, [id number] eClinic 13:30:00 13:30:00 Gaurav briceño 2015-10-04 2015-10-04 Outpatient Bria Fraser, [id number] eClinic 14:00:00 14:00:00 Gaurav contrerasWork s 2015-07-07 2015-07-07 Outpatient Bria Fraser, [id number] eClinic 14:15:00 14:15:00 Gaurav contrerasWork s 2015-06-07 2015-06-07 Outpatient Bria Fraser, [id number] eClinic 14:00:00 14:00:00 Gaurav contrerasWork s 2015-03-08 2015-03-08 Outpatient Bria Fraser, [id number] eClinic 09:00:00 09:00:00 Gaurav contrerasWork s 2015-02-23 2015-02-23 Outpatient Bria Fraser, [id number] eClinic 09:30:00 09:30:00 Gaurav contrerasWork s 2015-02-10 2015-02-10 Outpatient Bria Fraser, [id number] eClinic 18:31:00 18:31:00 Gaurav Nolasco MD alWork s 2015-02-08 2015-02-08 Outpatient Bria Fraser, [id number] eClinic 16:08:00 16:08:00 Gaurav Nolasco MD alWork s 2015-02-05 2015-02-05 Outpatient Bria Fraser, [id number] eClinic 15:25:00 15:25:00 Gaurav Nolasco MD alWork s 2015-02-04 2015-02-04 Outpatient Bria Fraser, [id number] eClinic 14:23:00 14:23:00 Gaurav contrerasWork s 2015-02-03 2015-02-03 Outpatient Bria Fraser, [id number] eClinic 17:01:00 17:01:00 Gaurav contrerasWork s 2015-01-04 2015-01-04 Outpatient Bria Fraser, [id number] eClinic 16:30:00 16:30:00 Gaurav contrerasWork s 2014-12-24 2014-12-24 Outpatient Bria Fraser, [id number] eClinic 15:30:00 15:30:00 Gaurav contrerasWork s 2014-11-17 2014-11-17 Outpatient Bria Fraser, [id number] eClinic 10:01:00 10:01:00 Gaurav briceño 2014-11-05 2014-11-05 Outpatient Bria Fraser, [id number] eClinic 08:30:00 08:30:00 Gaurav briceño 2014-11-05 2014-11-05 Outpatient Bria Fraser, [id number] eClinic 08:30:00 08:30:00 Gaurav briceño 2014-03-23 2014-03-23 Outpatient Bria Fraser, [id number] eClinic 10:15:00 10:15:00 Gaurav briceño 2014-02-04 2014-02-04 Outpatient Bria Fraser, [id number] eClinic 13:30:00 13:30:00 Gaurav briceño 2013-12-05 2013-12-05 Outpatient Bria Fraser, [id number] eClinic 19:43:00 19:43:00 Gaurav briceño 2013-12-04 2013-12-04 Outpatient Bria Fraser, [id number] eClinic 09:15:00 09:15:00 Gaurav briceño Results Test Description Test Time Test Comments Results Result Sour e Comments FL, 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 /FREE T4 IF INDICATED 2017-12-13 06:42:00 Test Item Value Reference Range Interpretation Comme nts THYROID STIMULATING HORMONE (BEAKER) (test code = 772) 2.89 uIU/mL 0.35-4.94 BASIC METABOLIC [id number] 06:22:00 Test Item Value Reference Range Interpretation Comments SODIUM (BEAKER) 140 meq/L 136-145 (test code = 381) POTASSIUM (BEAKER) 4.3 meq/L 3.5-5.1 (test code = 379) CHLORIDE (BEAKER) 107 meq/L 98-107 (test code = 382) CO2 (BEAKER) (test 28 meq/L code = 355) BLOOD UREA NITROGEN 11 [...] PATIEN TS. CBC W/PLT COUNT & AUTO [id number] 06:14:00 Test Item Value Reference Range Interpretation [...] code = 2801) LACTIC ACID, VENOUS, WHOLE [id number] 15:27:00 Test Item Value Reference Range Interpretation Comments LACTATE BLOOD VENOUS (2) (BEAKER) 1.1 mmol/L 0.5-2.2 (test code = 2872) Effective 08/11/2015: Units/Reference Range ChangeNew: 0.5-2.2 mmol/L Previous: 5-20 mg/dLBASIC METABOLIC [id number] 13:31:00 Test Item Value Reference Range Interpretation [...] GFR I S NOT APPLICABLE FOR DIALYSIS PATIJUAN TS. 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 Fluoroscopy time 15.2 seconds. Fluoroscopy was not performed by the undersigned. Refer to procedure notes for diagnostic and therapeutic detail. Signed: Tiara Pedersen Verified Date/Time: 12/11/2017 11:03:55 Reading Location:[facility] Radiology Reading Room TISSUE EXAM 2017-12-04 17:14:00Surgical Pathology Report Case: [id number] Authorizing Provider: Jerome Arias MD Collected: 11/30/2017 1327 Ordering Location: [facility] PERIOPERATIVE Received: 11/30/2017 1424 SERVICES Pathologist: Susan Ramos MD Specimen: Explant, hardware NEURAL STIMULATOR, REMOVAL: - HARDWARE IDENTIFIED (GROSS DIAGNOSIS) Signing Pathologist Direct Phone Line: [phone] pain disorderHardware, neural stimulator The specimen is received in a fluidless container labeled with patient information and labeled "hardware neural stimulator" and consists of a neural stimulator battery measuring5.2 x 5 x 0.6 cm with two attached leads measuring 60 cm in length x 0.1 cm in diameter. Specimen serial number [id number]. The specimen is submitted for gross identification only. CG/plMR, SPINE, THORACIC, [id number] 11:58:00FINAL REPORT MR thoracic and lumbar spine [...] MDReport Verified Date/Time: 12/04/2017 11:58:05 Reading Location: [address] Neuro Reading Room MR, SPINE, LUMBAR, [id number] 11:58:00FINAL REPORT MR thoracic and lumbar spine [...] renal lesion. Advise dedicated imaging. Signed: Autumn [place] Verified Date/Time: 12/04/2017 11:58:05 Reading Location: [facility] B1 C013V Neuro Reading Room RAD, CHEST, [...] imaged lumbar fusion hardware. Signed: Roni Barnett MDReport Verified Date/Time: 12/01/2017 16:14:55 Reading Location: [facility] B1 C013X Ortho Consult Reading Room ALYSIS W/ REFLEX URINE [id number] 10:01:00 Test Item Value Reference Range Interpretation [...] SOURCE(BEAKER) (test code = 2795) BASIC METABOLIC [id number] 09:45:00 Test Item Value Reference Range Interpretation [...] S NOT APPLICABLE FOR DIALYSIS PATIEN TS. [id number] 09:26:00 Test Item Value Reference Range Interpretation Comments PARTIAL THROMBOPLASTIN TIME 36.9 seconds 22.5-36.0 H (BEAKER) (test code = 760) PROTHROMBIN [id number] 09:25:00 Test Item Value Reference Range Interpretation [...] (test code = 2801) AFB CULTURE + [id number] 14:00:00 Test Item Value Reference Range Interpretation Comments CULTURE (BEAKER) (test No acid-fast bacilli code = 1095) isolated in 42 days AFB SMEAR (BEAKER) No acid fast bacilli (test code = 994) seen FUNGUS CULTURE + [id number] 15:41:00 Test Item Value Reference Range Interpretation Comments CULTURE (BEAKER) (test No fungus isolated in code = 1095) 28 days FUNGUS SMEAR (BEAKER) No fungi seen (test code = 1406) ANAEROBIC [id number] 04:04:00 Test Item Value Reference Range Interpretation Comments CULTURE (BEAKER) (test No anaerobes isolated code = 1095) SURGICALLY OBTAINED CULTURE + GRAM [id number] 14:12:00 Test Item Value Reference Interpretation Comments [...] (BEAKER) (test code = cocci in clusters 334863) TISSUE [id number] 15:59:00Surgical Pathology Report Case: [id number] Authorizing Provider: Jerome Arias MD Collected: 08/21/2017 1456 Ordering Location: [facility] PERIOPERATIVE Received: 08/22/2017 0819 SERVICES Pathologist: Rebeca Patricia MD Specimen: Explant, HARDWARE HARDWARE, INTRATHECAL PUMP, REMOVAL: - 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 The serial number for the programmable pump is "[id number]". The specimen is submitted for gross identification. CG/ew Not performedSPIN/CONCENTRATION [id number] 11:42:00 Test Item Value Reference Range Interpretation Comments CONCENTRATION CHARGED (BEAKER) (test Done code = 2657) [id number] 06:19:00 Test Item Value Reference Range Interpretation [...] = 413) CREATINE KINASE (CK), TOTAL AND [id number] 00:38:00 Test Item Value Reference Range Interpretation Comments CREATINE KINASE TOTAL (BEAKER) 46 U/L 29-200 (test code = 380) CREATINE KINASE-MB (BEAKER) (test 1.0 ng/mL 0.0-6.6 code = 750) CREATINE KINASE-MB INDEX (BEAKER) 2.2 % (test code = 395) CK-MB Reference Range:<6.7 Normal6.7-10.0 Borderline>10.0 AbnormalTROPONIN [id number] 00:38:00 Test Item Value Reference Range Interpretation [...] acute neurological disease, and persistent tachyarrhythmia.HEPATIC FUNCTION [id number] 00:35:00 Test Item Value Reference Range Interpretation [...] code = 8 U/L 6-55 347) PROTHROMBIN [id number] 00:25:00 Test Item Value Reference Range Interpretation Comments PROTIME (BEAKER) (test code = 15.9 seconds 11.7-14.7 H 759) INR (BEAKER) (test code = 370) 1.3 <=5.9 RECOMMENDED COUMADIN/WARFARIN INR THERAPY RANGESSTANDARD DOSE: 2.0 - 3.0 Includes: PROPHYLAXIS forvenous thrombosis, systemic embolization; TREATMENT for venous thrombosis and/or pulmonary embolus.HIGH RISK: Target INR is 2.5-3.5 for patients with mechanical heart valves.PLATELET [id number] 12:50:00 Test Item Value Reference Range Interpretation Comments PLATELET COUNT (BEAKER) (test 197 K/CU MM 150-450 code = 756) BASIC METABOLIC [id number] 11:36:00 Test Item Value Reference Range Interpretation [...] DIALYSIS PATIEN TS. URINALYSIS W/ REFLEX URINE [id number] 11:28:00 Test Item Value Reference Range Interpretation [...] code = 516) SOURCE(BEAKER) (test code = 9025) CBC W/PLT COUNT & AUTO [id number] 11:27:00 Test Item Value Reference Range Interpretation [...] PERCENT (BEAKER) (test code = 2801) POCT-GLUCOSE [id number] 08:26:00 Test Item Value Reference Range Interpretation Comments POC-GLUCOSE METER 105 mg/dL 70-110 TESTED AT [facility] 6720 (BEAKER) (test code = [place] 1538) [address] BASIC METABOLIC [id number] 06:24:00 Test Item Value Reference Range Interpretation [...] (BEAKER) (test code = 413) BASIC METABOLIC [id number] 05:47:00 Test Item Value Reference Range Interpretation [...] WBC 0-0 (BEAKER) (test code = 413) [id number] 05:12:00 Test Item Value Reference Range Interpretation Comments PHOSPHORUS (BEAKER) (test code = 3.8 mg/dL 2.3-4.7 604) [id number] 05:12:00 Test Item Value Reference Range Interpretation Comments MAGNESIUM (BEAKER) (test code = 1.6 mg/dL 1.6-2.6 627) BASIC METABOLIC [id number] 05:12:00 Test Item Value Reference Range Interpretation [...] APPLICABLE FOR DIALYSIS PATIEN TS. HEPATIC FUNCTION [id number] 05:12:00 Test Item Value Reference Range Interpretation [...] 6-55 347) CBC W/PLT COUNT & AUTO [id number] 04:32:00 Test Item Value Reference Range Interpretation [...] 0-1 PERCENT (BEAKER) (test code = 2801) [id number] 09:47:00 Test Item Value Reference Range Interpretation Comments PHOSPHORUS (BEAKER) (test code = 3.7 mg/dL 2.3-4.7 604) [id number] 09:47:00 Test Item Value Reference Range Interpretation Comments MAGNESIUM (BEAKER) (test code = 1.8 mg/dL 1.6-2.6 627) BASIC METABOLIC [id number] 09:47:00 Test Item Value Reference Range Interpretation [...] APPLICABLE FOR DIALYSIS PATIEN TS. HEPATIC FUNCTION [id number] 09:47:00 Test Item Value Reference Range Interpretation [...] 6-55 347) CBC W/PLT COUNT & AUTO [id number] 09:16:00 Test Item Value Reference Range Interpretation [...] code = 2801) RAD, HAND, 2 VIEWS, [id number] 08:42:00Reason for exam:->history of left forearm/wrist fractureShould [...] [place] Verified Date/Time: 06/19/2017 08:42:08 [facility], FOREARM, 2 VIEWS, [id number] 08:38:00Reason for exam:->history of left wrist/forearm fractureShould [...] Tamiko K[place] Verified Date/Time: 06/19/2017 08:38:49 Reading Location:[facility] Radiology Reading Room POCT-GLUCOSE [id number] 17:06:00 Test Item Value Reference Range Interpretation Comments POC-GLUCOSE METER 102 mg/dL 70-110 TESTED AT [facility] 6720 ([facility]) (test code = ELENO Forrester [place] 1538) [address] T4, [id number] 14:34:00 Test Item Value Reference Range Interpretation Comments FREE T4 ([facility]) (test code = 655) 1.13 ng/dL 0.70-1.48 [id number] 12:54:00 Test Item Value Reference Range Interpretation Comments PHOSPHORUS (BEAKER) (test code = 3.0 mg/dL 2.3-4.7 604) [id number] 12:54:00 Test Item Value Reference Range Interpretation Comments MAGNESIUM (BEAKER) (test code = 2.1 mg/dL 1.6-2.6 627) BASIC METABOLIC [id number] 12:54:00 Test Item Value Reference Range Interpretation [...] APPLICABLE FOR DIALYSIS PATIEN TS. HEPATIC FUNCTION [id number] 12:54:00 Test Item Value Reference Range Interpretation [...] = 20 U/L 5-34 353) ALT (SGPT) (BEAKER) (test code = 9 U/L 6-55 347) HEMOGLOBIN [id number] 12:08:00 Test Item Value Reference Range Interpretation Comments HEMOGLOBIN A1C ([facility]) (test code = 5.8 % 4.3-6.1 368) POCT-GLUCOSE [id number] 11:40:00 Test Item Value Reference Range Interpretation Comments POC-GLUCOSE METER 83 mg/dL 70-110 TESTED AT [place] [address] ([facility]) (test code = [facility] [address] 1538) TSH/FREE T4 IF [id number] 11:38:00 Test Item Value Reference Range Interpretation Comments THYROID STIMULATING HORMONE 8.19 uIU/mL 0.35-4.94 H ([facility]) (test code = 772) SEDIMENTATION [id number] 11:20:00 Test Item Value Reference Range Interpretation Comments SEDIMENTATION RATE, ERYTHROCYTE 101 mm/HR 0-40 H ([facility]) (test code = 766) LIPID [id number] 08:58:00 Test Item Value Reference Range Interpretation Comments TRIGLYCERIDES ([facility]) (test code = 131 mg/dL 540) CHOLESTEROL ([facility]) (test code = 203 mg/dL 631) HDL CHOLESTEROL ([facility]) (test code 31 mg/dL = 976) LDL CHOLESTEROL CALCULATED ([facility]) 146 mg/dL (test code = 633) Triglyceride Reference Range: Low Risk <150 Borderline 150-199 High Risk 200-499 Very High Risk >=500Cholesterol Reference Range: Low Risk <200 Borderline 200-239 High Risk >240HDL Cholesterol Reference Range: Low Risk >=60 High Risk <40LDL Cholesterol Reference Range: Optimal <100 Near Optimal 100-129 Borderline 130-159 High 160-189 Very High >=190C-REACTIVE [id number] 08:58:00 Test Item Value Reference Range Interpretation Comments C-REACTIVE PROTEIN ([facility]) (test 11.13 mg/dL 0.00-0.50 H code = 676) POCT-GLUCOSE [id number] 07:54:00 Test Item Value Reference Range Interpretation Comments POC-GLUCOSE METER 93 mg/dL 70-110 TESTED AT [place] [address] ([facility]) (test code = [facility] [id number] 1538) CBC W/PLT COUNT & AUTO [id number] 06:52:00 Test Item Value Reference Range Interpretation [...] 0-1 PERCENT (BEAKER) (test code = 2801) [id number] 06:35:00 Test Item Value Reference Range Interpretation Comments PROTIME (BEAKER) (test code = 15.9 seconds 11.7-14.7 H 759) INR (BEAKER) (test code = 370) 1.3 <=5.9 PARTIAL THROMBOPLASTIN TIME 24.3 seconds 22.5-36.0 (BEAKER) (test code = 760) RECOMMENDED COUMADIN/WARFARIN INR THERAPY RANGESSTANDARD DOSE: 2.0 - 3.0 Includes: PROPHYLAXIS forvenous thrombosis, systemic embolization; TREATMENT for venous thrombosis and/or pulmonary embolus.HIGH RISK: Target INR is 2.5-3.5 for patients with mechanical heart valves.POCT-GLUCOSE [id number] 22:11:00 Test Item Value Reference Range Interpretation Comments POC-GLUCOSE METER 101 mg/dL 70-110 TESTED AT [facility] 6720 ([facility]) (test code = ELENO Forrester [facility] 1538) [address] [place], 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 Clinical History: PRE OP TESTING Comparison Study: None available Findings: The heart and lungs are within normal limits. The pleural spaces are clear. Degenerative changes are noted. There are postsurgical changes in the spine. A spinal stimulus device is seen. Impression: No active cardiopulmonary disease. Signed: Joaquin Lam MDReport Verified Date/Time: 05/15/2017 12:51:37 Reading Location: [address] Radiology Reading Room BASIC METABOLIC [id number] 12:14:00 Test Item Value Reference Range Interpretation [...] NOT APPLICABLE FOR DIALYSIS PATIEN TS. PROTHROMBIN TIME/[id number] 11:26:00 Test Item Value Reference Range Interpretation Comments PROTIME (BEAKER) (test code = 15.0 seconds 11.7-14.7 H 759) INR (BEAKER) (test code = 370) 1.2 <=5.9 RECOMMENDED COUMADIN/WARFARIN INR THERAPY RANGESSTANDARD DOSE: 2.0 - 3.0 Includes: PROPHYLAXIS forvenous thrombosis, systemic embolization; TREATMENT for venous thrombosis and/or pulmonary embolus.HIGH RISK: Target INR is 2.5-3.5 for patients with mechanical heart valves.[id number] 11:26:00 Test Item Value Reference Range Interpretation Comments PARTIAL THROMBOPLASTIN TIME 38.1 seconds 22.5-36.0 H (BEAKER) (test code = 760) CBC W/PLT COUNT & AUTO [id number] 11:18:00 Test Item Value Reference Range Interpretation [...] 0-1 PERCENT (BEAKER) (test code = 2801) Rsdkfbhzk6425-30-51 15:01:006.7[facility] ZipihkzKmerqrnry6880-60-57 17:57:0010.0 [facility] LzlqeraDubiscrgd4436-23-97 17:57:29594Zkdlrgwm [facility] 2013-05-05 17:57:79455Ihvhkvth SjmpyhwKigunnjyw7011-41-86 17:57:0021[facility] JkkriiiAdkikpytd1550-67-20 17:57:10228Dinmlapu FtsbpkpGppomgird9400-27-80 17:57:002.6[facility] HghzyimTobkadfou9497-23-90 17:57:10662 ME[facility]/L[facility] Elhgjmmpy6718-09-77 17:57:004.3 MEQ/LMemorial DmptlnwStmpwwdbv7860-20-47 17:57:000.9[facility] SiyxczcEarzppvor3665-65-85 17:57:003[facility] Tblmgnchj4312-80-11 17:57:00 Test Item Value Reference Range Interpretation Comments BUN/CREAT (test code = BUN/CREAT) 10-01 [facility] KwccflcHpiiyxtcp9629-10-28 17:57:003.2[facility]ann[facility] 2013-05-05 17:57:008.4[facility] AlhplcrRhpfkyuds3774-48-69 17:57:0018[facility] XzdlhblGanfygpmb6689-85-85 17:57:0030[facility] UgpqpddKonkfnbcm3292-83-78 17:57:0086[facility] TmarayzHuhonvuwd4791-55-47 17:57:001.020[facility] Edcjgijlo3674-03-26 17:57:008.0[facility] NbjovlfCkxhsqfob6998-82-79 17:57:0010.0 [facility] FynzqzhFmnuphbxm1624-42-98 17:57:47193Jphorwyb [facility] 2013-05-05 17:57:09004Wolnnpbc ZdahzysWrzwltylu0295-64-85 17:57:0021[facility] YqrmtuvRxgifaxbi4591-07-75 17:57:58316Owoyrbpy BovqsesNhrzalcaz9844-41-63 17:57:002.6[facility] GtchdlzZpismvqjc9829-52-29 17:57:23784 [facility] Xbbgkpjut5508-49-95 17:57:004.3 MEQ/LMemorial OllbibkQnoowzdkw3382-21-57 17:57:000.9[facility] WwefqcsZujtpqvjb2647-46-58 17:57:003[facility] Anpnravmj6271-65-19 17:57:00 Test Item Value Reference Range Interpretation Comments BUN/CREAT (test code = BUN/CREAT) 3 10-01 [facility] XhlfjefBtkgioypj2280-92-21 17:57:003.2[facility] 2013-05-05 17:57:008.4[facility] QjqmekcFnrnkqexz1448-05-28 17:57:0018[facility] XbaptvvTobfdoyue0690-16-93 17:57:0030[facility] NmnypqjBzemkgclx4880-95-79 17:57:0086[facility] FordnknLfgvdtjxo0509-88-54 17:57:001.020[facility] Llrhqdlmt2676-24-81 17:57:008.0[facility] AuznayhGdavtzybsf3438-40-36 17:57:0012.2 Memorial GzjlrjgVpoinxqwfv3884-80-25 17:57:0038.4[facility] HermannHemat[facility] 2013-05-05 17:57:93185 [facility] SnqxrqrWudqhcftmo4197-85-19 17:57:0048 Memorial IknzahnLepokylvem4772-61-16 17:57:0012.2[facility] Hermann[facility] 2013-05-05 17:57:0038.4[facility] AojeodkXhmjxaqbbf3577-61-22 17:57:47686 K/[facility] Memorial LjcsgniEqrpocsfhq7978-17-50 17:57:0048[facility] HermannSer[facility] 2013-05-05 17:57:00PositiveMemorial EovhxlgAcfqxwsq6360-34-95 17:57:00Positive Memorial EbownftPdkazdiqqb6591-75-73 17:57:00YellowMem[facility] HermannUrinalysis 2013-05-05 17:57:00[facility] QxmokmdYfkorkgffi2851-42-96 17:57:00Yellow [facility] VjmvydkOawvjjruuh4987-38-92 17:57:00[facility]annChem[facility] 2012-04-24 15:54:02705Oqbvmzxs YsswoecPyszyvexh0141-04-96 15:54:61835Hqcqpctd LseuxesOisosntuj8565-79-24 15:54:0038Mem[facility] GrhpqnqFufbrdmuj7171-97-29 15:54:0072Memorial BtgftuhVvgiyfdbd1432-46-76 15:54:28816 MEQ/L[facility] Hyvkdryet5619-52-48 15:54:004.1 MEQ/LMemorial QyshiksUtzcuiyuk4095-62-31 15:54:001.0[facility] SpivmvwWzvvgilkz5507-66-71 15:54:007[facility] Omnovsawj2431-22-18 15:54:00 Test Item Value Reference Range Interpretation Comments BUN/CREAT (test code = BUN/CREAT) 7 10-01 [facility] HmyywalMmvdpqqbb4368-77-51 15:54:003.7[facility]ann[facility] 2012-04-24 15:54:008.4[facility] CxgiykiAckyuzszr8498-98-86 15:54:0029Mem[facility] SxbtbeiKwpxihycm4143-66-56 15:54:0039Mem[facility] PiigxwmEvhztafnp4822-02-90 15:54:0076Mem[facility] LetrveoAhjlonlvt7476-77-90 15:54:004.680[facility] Nhutqexflf3920-59-83 15:54:0012.4[facility] HohgqlzBkhbzwmira5139-26-41 15:54:00 37.6Memorial NtmjqabHevpzwhxdo2143-51-23 15:54:54661 K/CMMMemorial Gerson Ulnvuiunsv1480-39-70 15:54:00YellowMemorial CatpvoxUnbvhhzstg4943-79-74 15:54:00 [facility] MkxvgjyFakyabwtq0401-86-68 21:40:27782Voiaeyca [facility] Crfftcvaj2781-37-42 21:40:12986Kueehktn LugnrxhNlcbifgzs6754-50-07 21:40:0034 Memorial AwhszmyEkraopddc0048-01-11 21:40:0049[facility] 2011-03-14 21:40:87940 MEQ/LMemorial TcopvaqBsjdfzems7831-89-59 21:40:004.1 MEQ/LMemorial BftewryLwvqswcod8851-05-44 21:40:000.9[facility] 2011-03-14 21:40:006[facility] CljapdkHrtfmmbut5545-45-22 21:40:00 Test Item Value Reference Range Interpretation Comments BUN/CREAT (test code = BUN/CREAT) 7 1 6-25 [facility] CyzzhglYhboqifhk5800-55-48 21:40:003.9[facility] 2011-03-14 21:40:009.0[facility] WldedxrScdnwqbdb3039-25-24 21:40:0027Mem[facility] SjjgcrrTsvzcxesq6512-84-35 21:40:0034Memorial PthgnvrAformmwnb1210-72-19 21:40:0076Memorial OkiiiuzNlzylqjpf2227-38-86 21:40:000.524[facility] Gxjaeueiiy7892-61-66 21:40:0012.2[facility] BiwblgoDqpjxwixsc3707-89-58 21:40:00 35.7Memorial CavyqlaUksfoibztk8635-74-81 21:40:97204 K/CMMMemorial [facility]worth Akcpxuwesx4918-25-56 21:40:00YellowMemorial SxyekegQtwxfdgtfp4170-50-06 20:30:00 11.6Memorial AdoqjcoKmdcseuwlx7474-93-70 20:30:0035.3[facility] HermannHematology 2010-07-21 20:30:98673 K/CMMMemorial LutyefgQznlegwpdz3766-70-28 20:30:0042 Memorial FdvyskjFmvuoopgpa4259-25-23 19:49:00YellowMemorial HermannUrinalysis 2010-06-21 19:49:00[facility]ionalMemorial PtxvijcAgtvrkggm4365-95-69 17:45:97461 Memorial YfuybnhBgovkitnw6630-45-85 17:45:004.5[facility]annChem[facility] 2010-05-24 17:45:000.9[facility] ObqpbrwRgumrxmdq4159-48-24 17:45:0013Memorial JohzsvqRhyplahrx6588-52-81 17:45:00 Test Item Value Reference Range Interpretation Comments BUN/CREAT (test code = BUN/CREAT) 14 1 6-25 [facility] EwwbqbcPxmaafvhj2539-77-82 17:45:004.2[facility] 2010-05-24 17:45:009.1[facility] JkxorphUezkxptdi5585-12-15 17:45:0015Memorial VlvugojIdddlbbtt3491-98-72 17:45:0012Memorial WzulpzuPbumwvwgu0863-31-04 17:45:0067Mem[facility] FpozvsbAvgrvlblm7516-81-77 17:45:000.680[facility] Mvbmgxoerla8559-16-70 17:45:00 Test Item Value Reference Range Interpretation Comments PT PATIENT (test code = PT PATIENT) 13.6 s 12.0-14.7 [facility] DxoknctHpvxcwlmcnr4259-47-34 17:45:00 Test Item Value Reference Range Interpretation Comments INR (test code = INR) 1.02 1 0.85-1.17 [facility] GchgzgePkjzjyhxrp3178-48-10 17:45:0012.7[facility]annHemat[facility] 2010-05-24 17:45:0038.1[facility] IvurueyYamjzkxnez2998-18-29 17:45:33232 K/CMM [facility] AwvaiezZmnqkhhcoj2689-13-94 17:45:00YellowMemorial HermannCT LUMBAR WO CLINICAL INDICATION: M51.36 Other intervertebral disc degeneration, lumbar regionMODALITY: Siemens Gushcloud CT (Iterative dose reduction techniques are utilized.)TECHNIQUE: CT scan of the lumbar spine was performed without contrast. Axial images are obtained. Images are reformatted in coronal and sagittal planes. Bone and soft tissue windows are formatted.IMPRESSION:1. L1- S1 fusion with bilateral intra pedicular screws and [...] No aneurysms.FINDINGS AT SPECIFIC LEVELS:L5-S1: The interposed bone graft is not yet incorporated into the endplates. [...]
[2020-04-28 16:29] LABS: Urine Appearance TURBID; Urine Bilirubin NEGATIVE (NEG); Urine Blood 1+ (NEG); Urine Color DK YELLOW; Urine Glucose NEGATIVE (NEG); Urine Protein 1+ (NEG); Urine Specific Gravity 1.025 (1.005-1.030)
[2020-04-28 17:00] LABS: Urine Microscopic Reflex ORDER UMIC
[2020-04-28 17:20] LABS: Urine Bacteria >50 /HPF (<20); Urine Mucus 2+ /HPF (NONE SEEN); Urine Yeast FEW (NONE SEEN)
[2020-04-28] MEDS ORDERED: ACETAMINOPHEN 500 MG TAB PO PRN (19:04)
[2020-04-28] MEDS ORDERED: BISACODYL 10 MG RECTAL SUPP PR PRN (19:05)
[2020-04-28] MEDS ORDERED: POLYETHYL GLY 3350 17 GM/DOSE PO PRN (19:08)
[2020-04-28] MEDS ORDERED: DOCUSATE NA/SENNA CONC 1 TAB PO PRN (19:09)
[2020-04-28] MEDS ORDERED: ONDANSETRON 4 MG (ODT) TAB PO PRN (19:10)
[2020-04-28] MEDS ORDERED: PREGABALIN 75 MG CAP PO SCH (20:00)
[2020-04-28] MEDS: HEPARIN 5000 UNIT/ML 1 ML VIAL SQ SCH (20:49)
[2020-04-28] MEDS: PRAMIPEXOLE 0.25 MG TAB PO SCH (21:02)
[2020-04-28] MEDS: PREGABALIN 150 MG CAP PO SCH (21:03)
[2020-04-28] MEDS: PREGABALIN 50 MG CAP PO SCH (21:03)
[2020-04-28] MEDS: MIRTAZAPINE 15 MG TAB PO SCH (21:03)
[2020-04-28] MEDS: QUETIAPINE 25 MG TAB PO SCH (21:04)
[2020-04-28] MEDS: OXYCODONE HCL 5 MG TAB PO PRN (22:37)
[2020-04-29] MEDS: LEVOTHYROXINE SOD 0.112 MG TAB PO SCH (06:31)
[2020-04-29] MEDS: OXYCODONE HCL 5 MG TAB PO PRN ×2 (06:31→13:03)
[2020-04-29 06:47] LABS: Absolute Lymphocytes (CBC) 1.6 K/uL (0.7-4.9); Hematocrit 32.5 % (36.0-45.0); Lymphocytes % 31.3 % (15.3-44.8); MPV 8.5 fL (7.6-11.3); RBC Red Blood Cell Count 3.95 M/uL (3.86-4.86)
[2020-04-29 06:55] LABS: Albumin 2.8 g/dL (3.4-5.0); Magnesium 2.3 mg/dL (1.8-2.4); Potassium 4.2 mmol/L (3.5-5.1); Prealbumin 14.8 mg/dL (20-40)
[2020-04-29] MEDS: HEPARIN 5000 UNIT/ML 1 ML VIAL SQ SCH ×2 (07:58→20:00)
[2020-04-29] MEDS ORDERED: LIDOCAINE 4% PATCH TOP SCH (08:00)
[2020-04-29] MEDS ORDERED: DESVENLAFAXINE SUCCINATE 50 MG ER TAB PO SCH (08:00)
[2020-04-29] MEDS ORDERED: DULOXETINE 20 MG CAP PO SCH (08:00)
[2020-04-29] MEDS: PREGABALIN 150 MG CAP PO SCH ×2 (08:04→20:48)
[2020-04-29] MEDS: PREGABALIN 50 MG CAP PO SCH ×2 (08:04→20:46)
[2020-04-29] MEDS: methocarbamoL 750 MG TAB PO PRN (15:20)
--- NOTE | 2020-04-29 18:05 | R.HP ---
HISTORY AND PHYSICAL FACILITY: [facility] ENCOUNTER DATE AND TIME: 04/29/2020 17:56 (TAILING HAND) MR#: [id number] NAME EMMA RICO ADDRESS: [address] [place] [address] CITY: [place]IP [address] PHONE: DATE OF : 1950 AGE: 69 SSN# [id number] GENDER: Female DEXTERITY Right-handed MARITAL STATUS RACE Unknown race PRE-HOSPITAL LIVING SETTING 01 - Home (private home/apt. board/care, assisted living, half-way, transitional living) PRE-HOSPITAL LIVING WITH Family/Relatives ENCOUNTER PHYSICIAN: Dr. Otf Murdock M.D. REFERRING DOCTOR: DR. SHERIDAN DATE OF ADMISSION: 04/28/2020 15:20 (TAILING HAND) REFERRING FACILITY [facility] PRIMARY CARE PHYSICIAN HOME TYPE AND DETAILS: Type of home: single family house # of levels in the residence: 2 # of steps within the residence: 0 # of steps to enter the residence: 0 ONSET DATE: 04/19/2020 PRIMARY DIAGNOSIS-RELATED SURGERIES: N/A HISTORY OF PRESENT ILLNESS (HPI): Pt. is a 69 yo Right-handed female of unknown race. On 04/19/2020 she was admitted to [facility] with diagnosis SPINAL FRACTURE OF T-9 . 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 230). Pre-morbidly, Pt. was independent/mod-I in Safety Awareness, Balance, Transfers Control, Sphincter Co ntrol, and Endurance; and she had good Locomotion. Currently, she has deficits of Endurance, Sphincter Control, Transfers Control, Balance, and Locomoti on. Pt. is now referred to [facility] for acute in-patient rehabilitation in order to maximize patient's functional independence in activities of daily living, strength, ROM, and mobi lity. Patient has realistic goal of being discharged at assistance level 7-Ind to reside at Home with Fami ly/Relatives. Emma Rico is a 69 -year- old female that lives at home independently with her and family. She lives in a 2 story home. The down stairs of the [facility] is where her and her live. She fell down and struck her head and buttocks so she went [facility] and she was found to have a spinal fx of the T-9. Has has a history of discitis of her lumbar region L4-L5, chronic pain, and chronic spine problems. She has been transferred to [facility] to the swing bed program and has been doing very well. She will has work to get stronger to be able to go home and take care of her self. The patient would most definitely benefit from acute inpatient rehab and has become severely debilitated and unable to live at her prior level of activity at home getting her stronger to be back living at home independently is our goal. It is reasonable and necessary for the patient to come to acute inpatient rehab for approximately 7-10 days in order to return to her prior level of care. She is now being transferred to [facility] Inpatient rehabilitation and is medically stable with relatively stable labs. She is now medically stable but in need of 24 hour nursing, doctor supervision and The patient is reasonably expected to participate in 3 hours of therapy a day/15 hours per week and receive care with intensive interdisciplinary approach. COVID-19 screening performed; spoke with patient via phone. Patient denies new onset of fever, cough, difficulty breathing, sore throat, body aches and non-allergy nasal congestion in the past 24 hours. Patient denies travel outside of [place] in the past 14 days. Patient denies any contact with someone who has a confirmed diagnosis of or is under investigation for COVID-19 in the past 14 days. Patient has been tested negative for COVID- 19. 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 OBESITY SLEEP APNEA VITAMIN D DEFICIENCY DEPRESSION RESTLESS LEG SYNDROME HYPOTHYRODISM PAST SURGICAL HISTORY: IMPLANT OF NEUROSTIMULATOR IN SPIN ON 12/11/17 REMOVAL OF NEUROSTIMULATOR EPIDUROGRAM 01/27/16 IMPLANT OF NEUROSTIMULATOR IN SPIN 2015 FUSION OF LUMBAR SPINE 2014 HIP REPLACEMENT 2011 HIP REPLACEMENT 2005 HYSTERECTOMY 1986 SOCIAL HISTORY: - Home Living Family/Relatives REVIEW OF SYSTEMS: - Gen No Chills Fatigue No Fever - Eyes No Double Vision No itchiness - ENMT No Difficulty Swallowing - CVS Chest Discomfort No Chest Pain No Fatigue No Weight Gain - Resp No Cough No Shortness of Breath - GI Continent No Abdominal Pain No Constipation No Diarrhea - Continent No Kidney Pain No Painful Urination No Urinary Urgency - MSK No Joint Pain Muscle Cramps Stiffness - Skin No Itching No Rash No Suspicious Lesions - Neuro Coordination Difficulty No Difficulty with Concentration No Memory Loss No Seizures Weakness - Psych No Anxiety No Depression No HIV Exposure No Persistent Infections No Seasonal Allergies - Endo No Cold/Heat Intolerance No Excessive Hunger No Excessive Thirst No Excessive Urination PHYSICAL EXAM - Gen Alert and awake Lying in bed No apparent distress Oriented to: person, time, and place - Skin No skin breakdown. Normacephalic - Eyes No abnormalities - ENMT No abnormalities - Neck No abnormalities No cervical adenopathy - CVS RRR - Chest No abnormalities - Resp Clear to auscultation - Abd Soft - GI Non distended Deferred - No abnormalities - Ext No significant edema - MSK 4+/5 weakness in both lower extremities. - Neuro No focal deficits - Psych No abnormalities VITAL SIGNS Temperature: 97.9 SBP/DBP: 114/71 Pulse: 70 Resp: 16 NURSING: - Shower allowing shower - Bladder care per protocol - Skin care per protocol ACTIVITIES OOB only with supervision QI SCORES: - Self-Care A. Eating 03-Partial/moderate assistance B. Oral hygiene 03-Partial/moderate assistance C. Toileting hygiene 03-Partial/moderate assistance E. Shower/bathe self 03-Partial/moderate assistance F. Upper body dressing 03-Partial/moderate assistance G. Lower body dressing 88-Not attempted due to medical condition or safety concerns H. Putting on/taking off footwear 88-Not attempted due to medical condition or safety concerns - Mobility A. Roll left and right 04-Supervision or touching assistance B. Sit to lying 04-Supervision or touching assistance C. Lying to sitting on side of bed 03-Partial/moderate assistance D. Sit to stand 03-Partial/moderate assistance E. Chair/fbw-ld-uoyau transfer 03-Partial/moderate assistance F. Toilet transfer 03-Partial/moderate assistance G. Car transfer 88-Not attempted due to medical condition or safety concerns I. Walk 10 feet 03-Partial/moderate assistance J. Walk 50 feet with two turns 03-Partial/moderate assistance K. Walk 150 feet 88-Not attempted due to medical condition or safety concerns L. Walking 10 feet on uneven surfaces 88-Not attempted due to medical condition or safety concerns M. 1 step (curb) 88-Not attempted due to medical condition or safety concerns N. 4 steps 88-Not attempted due to medical condition or safety concerns O. 12 steps 88-Not attempted due to medical condition or safety concerns P. Picking up object 88-Not attempted due to medical condition or safety concerns R. Wheel 50 feet with two turns 88-Not attempted due to medical condition or safety concerns S. Wheel 150 feet 88-Not attempted due to medical condition or safety concerns - Bladder and Bowel Bladder continence Bowel continence - Endurance Fair - Balance Fair - Safety Awareness Fair CURRENT FUNC. DEFICITS: Self-Care, Mobility, Endurance, Balance, and Safety Awareness MEDICATIONS: - Other See attached MAR (Medication Administration Record) ASSESSMENT: Pt. is a 69 yo Right-handed female of unknown race.On 04/19/2020 she was admitted to [facility] with diagnosis SPINAL FRACTURE OF T-9 .Her impairment category is Spinal Cord Dysfunction 04 - [facility] er Traumatic Spinal Cord Dysfunction (04.230).Pre-morbidly, Pt. was independent/mod-I in Safety Aware ness, Balance, Transfers Control, Sphincter Control, and Endurance; and she had good Locomotion.Curre ntly, she has deficits of Endurance, Sphincter Control, Transfers Control, Balance, and Locomotion.Pt . is now referred to [facility] for acute in-patient rehabilitation in order t o maximize patient's functional independence in activities of daily living, strength, ROM, and mobili ty.- Rehab Goal Patient has realistic goal of being discharged at assistance level 7-Ind to reside at Home with Fami ly/Relatives. Emma Rico is a 69 -year- old female that lives at home independently with her and family. She lives in a 2 story home. The down stairs of the [facility] is where her and her live. She fell down and struck her head and buttocks so she went [facility] and she was found to have a spinal fx of the T-9. Has has a history of discitis of her lumbar region L4-L5, chronic pain, and chronic spine problems. She has been transferred to [facility] to the swing bed program and has been doing very well. She will has work to get stronger to be able to go home and take care of her self. The patient would most definitely benefit from acute inpatient rehab and has become severely debilitated and unable to live at her prior level of activity at home getting her stronger to be back living at home independently is our goal. It is reasonable and necessary for the patient to come to acute inpatient rehab for approximately 7-10 days in order to return to her prior level of care. She is now being transferred to [facility] Inpatient rehabilitation and is medically stable with relatively stable labs. She is now medically stable but in need of 24 hour nursing, doctor supervision and The patient is reasonably expected to participate in 3 hours of therapy a day/15 hours per week and receive care with intensive interdisciplinary approach. COVID-19 screening performed; spoke with patient via phone. Patient denies new onset of fever, cough, difficulty breathing, sore throat, body aches and non-allergy nasal congestion in the past 24 hours. Patient denies travel outside of [place] in the past 14 days. Patient denies any contact with someone who has a confirmed diagnosis of or is under investigation for COVID-19 in the past 14 days. Patient has been tested negative for COVID- 19.REHAB PLAN: - Physical Therapy Gait dysfunction - to improve, our physical therapists will perform initial evaluation of pt's status upon admission and devise an individualized program for Gait Training, and Wheel Chair mobility Inability to transfer - to improve, our physical therapists will perform initial evaluation of pt's s tatus upon admission and devise an individualized program for Bed mobility Need for home safety evaluation - to improve, our physical therapists will perform initial evaluation of pt's status upon admission and devise an individualized program for Home Evaluation Need in caregiver upon discharge - to improve, our physical therapists will perform initial evaluatio n of pt's status upon admission and devise an individualized program for Caregiver Training New precaution - to improve, our physical therapists will perform initial evaluation of pt's status u dhruv admission and devise an individualized program for Patient precaution education Edema - to improve, our physical therapists will perform initial evaluation of pt's status upon admi ssion and devise an individualized program for Elevation Training, and Lymphedema Therapy Poor balance - to improve, our physical therapists will perform initial evaluation of pt's status upo n admission and devise an individualized program for Balance Training Poor endurance - to improve, our physical therapists will perform initial evaluation of pt's status u dhruv admission and devise an individualized program for Endurance Training Weakness - to improve, our physical therapists will perform initial evaluation of pt's status upon ad mission and devise an individualized program for Aquatic Therapy, Neuromuscular Reeducation, and Stre ngthening Achieving independence - to improve, our physical therapists will perform initial evaluation of pt's status upon admission and devise an individualized program for Community Reintegration Activities - Occupational Therapy Need for health care / medical job titles - to improve, our occupation therapists will perform initial evaluation of pt's s tatus upon admission and devise an individualized program for Caregiver Training Weakness - to improve, our occupation therapists will perform initial evaluation of pt's status upon admission and devise an individualized program for Aquatic Therapy, Balance, Endurance, UE ROM, and U E strengthening MEDICAL PLAN: - Diet Type Start Regular - Diet - Liquid Texture Start Regular - Tube Feed Start N/A - Bladder care per protocol - Skin care per protocol - Other See attached MAR (Medication Administration Record) - Diet - Solid Texture Regular - Shower shower DISCHARGE PLAN: - Estimated Length of Stay (days) 27. - Consensus on plan Discharge plan has been discussed with primary caregiver. Patient/Family is in agreement with the maryuri n. Primary caregiver is in agreement with the plan. - Patient/Family Goals Return home independently. - Planned Living Setting Upon Discharge Home, to live with Family/Relatives. Transitional Living. SIGNATURE PANEL: (TAILING HAND)
--- NOTE | 2020-04-29 18:06 | PAPE ---
POST ADMISSION PHYSICIAN EVALUATION PATIENT: [facility] MR# [id number] REFERRING DOCTOR DR. SHERIDAN PRIMARY CARE PHYSICIAN EVALUATION DATE AND TIME 04/29/2020 18:04 (CRIMINAL JUSTICE PROGRAM DIRECTOR) NAME TIP KLINE DATE OF 1950 AGE 69 PHONE SSN# [id number] GENDER female EVALUATING PHYSICIAN Dr. Otf Murdock M.D. ADMISSION DIAGNOSIS: SPINAL FRACTURE OF T-9 ONSET DATE 04/19/2020 POST-ADMISSION FUNCTIONAL/MEDICAL STATUS: - Bladder Same accident frequency: Ind - No accidents in the past 7 days - Bowel Same accident frequency: Ind - No accidents in the past 7 days - Walking Same score based on distance walked: 0(N/A) - Wheelchair Same score based on distance traveled: 0(N/A) STATUS CHANGE EVALUATION: No change in Functional or Medical Status is identified compared with Pre-Admission screening. PATIENT NEEDS CLOSE MEDICAL SUPERVISION BY A REHABILITATION PHYSICIAN FOR: Coordination of Treatment Team PATIENT REQUIRES 24X7 REHAB NURSING FOR MEDICAL AND FUNCTIONAL MGT. OF THE FOLLOWING DEFICITS: Disease Management Medication Management Patient/Family Education Providing Safe Environment PATIENT REQUIRES INTENSIVE, COORDINATED INTERDISCIPLINARY APPROACH TO REHAB: Arranging Home Equipment/Services Discharge Planning Family Intervention/Training Batch Still Operator/Case Management LIST OF IDENTIFIED AND POTENTIAL PROBLEMS: Alteration in leisure activities Bladder, Incontinence Bowel, Incontinence Infection, Actual or Potential Mobility Impaired Pain, Alteration in Comfort Self Care Deficit Skin Integrity, Actual or Potential Urinary Tract Infection (UTI), Actual or Potential PATIENT COULD BE AT RISK FOR COMPLICATIONS FROM ADVERSE MEDICAL CONDITIONS DUE TO HIS/HER COMORBIDITI ES AND THE RIGORS OF THE INTENSIVE REHABILLITATION PROGRAM. METHODS OR INTERVENTIONS TO AVOID COMPLIC ATIONS INCLUDE: - Infection Clinical staff to assess and manage the signs and symptoms of infection including fever, redness, war mth, etc. - Urinary Tract Infection - Falls Patient will be evaluated for Fall Precautions and will be placed on Fall Precautions as indicated pe r protocol. - Skin Breakdown Nursing will assess skin daily using assessment tool and will place on Skin Breakdown Precautions as indicated per protocol. - Pain Clinical staff may employ non-medication methods such as massage, distraction, decrease stimulus, etc . as needed. Clinical staff will assess patient's pain level every shift per protocol to assess and e nsure pain management effectiveness. Medications will be given and the pain level re-assessed. PRELIMINARY PLAN OF CARE: - Physical Therapy Patient needs Physical Therapy for a daily minimum of 1.5 hours at least 5 out of 7 days, to improve: Mobility, Strengthening, Transfers, Stretching, ROM, Endurance, Ability to manage stairs, Gait, and Balance. - Speech Therapy Patient needs Speech Therapy for a daily minimum of 0.5 hours at least 5 out of 7 days, to improve: S wallowing, Cognition, Language Skills, and Compensatory Strategies. - Rehabilitation Nursing Patient requires 24x7 Rehabilitation Nursing for: Pain Issues, Identifying and preventing risk factor s, Monitoring and reporting current medical conditions, Assisting with ambulation and transfer, Luz Maria ting with all ADL-s, Teaching patients about disease process and medications, Family teaching, Provid ing safe environment, Bowel and Bladder Issues, Skin Integrity, and Medication Management. Patient needs Batch Still Operator and/or Case Management for: Discharge Planning, Arranging Home Equipmen t or Services, and Family Interventions. - Dietary and Nutrition Services Patient needs Dietary and Nutrition Services for: Adequate Nutrition, Nutritional Supplements, and Nu tritional Education. - Occupational Therapy Patient needs Occupational Therapy for a daily minimum of 1.5 hours at least 5 out of 7 days, to impr ove Activities of Daily Living, including: Eating, Grooming, Bathing, Dressing, Toileting, Toilet Tra nsfers, Community Reintegration, Higher functional activities, Adaptive Equipment, Splinting, Househo ld Tasks, and Other activities as determined. QI SCORES: - Self-Care A. Eating 03-Partial/moderate assistance B. Oral hygiene 03-Partial/moderate assistance C. Toileting hygiene 03-Partial/moderate assistance E. Shower/bathe self 03-Partial/moderate assistance F. Upper body dressing 03-Partial/moderate assistance G. Lower body dressing 88-Not attempted due to medical condition or safety concerns H. Putting on/taking off footwear 88-Not attempted due to medical condition or safety concerns - Mobility A. Roll left and right 04-Supervision or touching assistance B. Sit to lying 04-Supervision or touching assistance C. Lying to sitting on side of bed 03-Partial/moderate assistance D. Sit to stand 03-Partial/moderate assistance E. Chair/jrk-cm-kzlvo transfer 03-Partial/moderate assistance F. Toilet transfer 03-Partial/moderate assistance G. Car transfer 88-Not attempted due to medical condition or safety concerns I. Walk 10 feet 03-Partial/moderate assistance J. Walk 50 feet with two turns 03-Partial/moderate assistance K. Walk 150 feet 88-Not attempted due to medical condition or safety concerns L. Walking 10 feet on uneven surfaces 88-Not attempted due to medical condition or safety concerns M. 1 step (curb) 88-Not attempted due to medical condition or safety concerns N. 4 steps 88-Not attempted due to medical condition or safety concerns O. 12 steps 88-Not attempted due to medical condition or safety concerns P. Picking up object 88-Not attempted due to medical condition or safety concerns R. Wheel 50 feet with two turns 88-Not attempted due to medical condition or safety concerns S. Wheel 150 feet 88-Not attempted due to medical condition or safety concerns - Bladder and Bowel Bladder continence Bowel continence - Endurance Fair - Balance Fair - Safety Awareness Fair POTENTIAL FUNCTIONAL GOALS FOR PATIENT TO ACHIEVE BY DISCHARGE: - Safety Precaution Patient will remain free from falls or injury at time of discharge. - Bed Mobility Patient will perform bed mobility at 4-[place] level of assistance. - Transfers Patient will complete transfers from bed to chair at 4-[place] level of assistance. - Mobility Patient will ambulate 150 ft with 4-[place] level of assistance with RW. PATIENT REHAB POTENTIAL Sara KLINE is able and expected to receive 3 hours of individualized therapy daily on at least 5 of ever y 7 days Sara KLINE's prognosis for significant practical improvement within a reasonable period of time appears Good Expected level of measurable improvement will be of a practical value to Sara KLINE's functional capacit y or adaptations to impairments Has a viable Discharge Plan Medically appropriate; condition is sufficiently stable to participate in intensive rehab program DISCHARGE PLAN: - Estimated Length of Stay (days) 27. - Consensus on plan Discharge plan has been discussed with primary caregiver. Patient/Family is in agreement with the maryuri n. Primary caregiver is in agreement with the plan. - Patient/Family Goals Return home independently. - Planned Living Setting Upon Discharge Home, to live with Family/Relatives. Transitional Living. CONCLUSION ON REHABILITATION NECESSITY: I have evaluated patient's pre-admission functional status and, comparing it to the patient's post-ad mission functional status now, I conclude that the pre-admission assessment was accurate. Patient's c ondition on admission supports the medical necessity of admission to IRF. It is safe to proceed with patient's therapy program. SIGNATURE PANEL: (CRIMINAL JUSTICE PROGRAM DIRECTOR)
[2020-04-29] MEDS: MIRTAZAPINE 15 MG TAB PO SCH (20:47)
[2020-04-29] MEDS: QUETIAPINE 25 MG TAB PO SCH (20:47)
[2020-04-29] MEDS: PRAMIPEXOLE 0.25 MG TAB PO SCH (20:47)
[2020-04-30] MEDS: OXYCODONE HCL 5 MG TAB PO PRN ×3 (05:20→17:30)
[2020-04-30] MEDS: LEVOTHYROXINE SOD 0.112 MG TAB PO SCH (07:00)
[2020-04-30] MEDS: PRESTIQ PO SCH (08:00)
[2020-04-30] MEDS: PREGABALIN 50 MG CAP PO SCH ×2 (08:00→20:24)
[2020-04-30] MEDS: PREGABALIN 150 MG CAP PO SCH ×2 (08:00→20:24)
[2020-04-30] MEDS: HEPARIN 5000 UNIT/ML 1 ML VIAL SQ SCH ×2 (08:00→19:22)
[2020-04-30] MEDS: LIDOCAINE 4% PATCH TOP SCH (08:00)
[2020-04-30] MEDS: methocarbamoL 750 MG TAB PO PRN (09:15)
--- NOTE | 2020-04-30 09:41 | P.RH.PN ---
Estimated Length of Stay: 14 Expected Discharge Date: 05/11/20 Discharge Disposition Plan: Home Family Support: Yes Care Home Goal: Mobility, Transfers, Self Care Vital Signs: Last Vital Signs Temp 97.1 F 04/30/20 07:00 Pulse 79 04/30/20 07:00 Resp 20 04/30/20 09:15 BP 131/62 04/30/20 07:00 Pulse Ox 96 04/30/20 09:15 Laboratory: Laboratory Last Values WBC 5.1 K/uL (4.3-10.9) 04/29/20 06:01 RBC 3.95 M/uL (3.86-4.86) 04/29/20 06:01 Hgb 10.4 g/dL (12.0-15.0) L 04/29/20 06:01 Hct 32.5 % (36.0-45.0) L 04/29/20 06:01 MCV 82.3 fL (80-100) 04/29/20 06:01 MCH 26.3 pg (27.0-35.0) L 04/29/20 06:01 MCHC 31.9 g/dL (32.0-36.0) L 04/29/20 06:01 RDW 17.6 % (12.1-15.2) H 04/29/20 06:01 Plt Count 242 K/uL (152-406) 04/29/20 06:01 MPV 8.5 fL (7.6-11.3) 04/29/20 06:01 Neutrophils % 55.2 % (41.7-73.7) 04/29/20 06:01 Lymphocytes % 31.3 % (15.3-44.8) 04/29/20 06:01 Monocytes % 9.4 % (3.3-12.3) 04/29/20 06:01 Eosinophils % 3.1 % (0-4.4) 04/29/20 06:01 Basophils % 1.0 % (0-1.3) 04/29/20 06:01 Absolute Neutrophils 2.8 K/uL (1.8-8.0) 04/29/20 06:01 Absolute Lymphocytes 1.6 K/uL (0.7-4.9) 04/29/20 06:01 Absolute Monocytes 0.5 K/uL (0.1-1.3) 04/29/20 06:01 Absolute Eosinophils 0.2 K/uL (0-0.5) 04/29/20 06:01 Absolute Basophils 0.1 K/uL (0-0.5) 04/29/20 06:01 Sodium 139 mmol/L (136-145) 04/29/20 06:01 Potassium 4.2 mmol/L (3.5-5.1) 04/29/20 06:01 Chloride 104 mmol/L (98-107) 04/29/20 06:01 Carbon Dioxide 33 mmol/L (21-32) H 04/29/20 06:01 BUN 11 mg/dL (7-18) 04/29/20 06:01 Creatinine 0.83 mg/dL (0.55-1.3) 04/29/20 06:01 Estimated GFR 68 mL/min (=/>90) L 04/29/20 06:01 Glucose 84 mg/dL (74-106) 04/29/20 06:01 Calcium 9.0 mg/dL (8.5-10.1) 04/29/20 06:01 Magnesium 2.3 mg/dL (1.8-2.4) 04/29/20 06:01 Albumin 2.8 g/dL (3.4-5.0) L 04/29/20 06:01 Prealbumin 14.8 mg/dL (20-40) L 04/29/20 06:01 Urine Color Dk yellow 04/28/20 15:30 Urine Appearance Turbid 04/28/20 15:30 Urine pH 6.0 (5.0-7.0) 04/28/20 15:30 Ur Specific [place] 1.025 (1.005-1.030) 04/28/20 15:30 Glucose (UA)(Auto) Negative (NEG) 04/28/20 15:30 Urine Ketones Negative (NEG) 04/28/20 15:30 Urine Blood 1+ (NEG) H 04/28/20 15:30 Urine Nitrite Negative (NEG) 04/28/20 15:30 Urine Bilirubin Negative (NEG) 04/28/20 15:30 Urine Urobilinogen 1.0 mg/dL (0.2-1.0) 04/28/20 15:30 Ur Leukocyte Esterase 2+ (NEG) H 04/28/20 15:30 Urine RBC 5-10 /HPF (NONE SEEN) H 04/28/20 15:30 Urine WBC 10-20 /HPF (<5) H 04/28/20 15:30 Ur Squamous Epith Cells 5-10 /HPF (NONE SEEN) H 04/28/20 15:30 Urine Bacteria >50 /HPF (<20) H 04/28/20 15:30 Urine Mucus 2+ /HPF (NONE SEEN) 04/28/20 15:30 Urine Yeast Few (NONE SEEN) 04/28/20 15:30 Urine Culture Reflexed Not needed 04/28/20 15:30 Urine Total Protein 1+ (NEG) H 04/28/20 15:30 SARS-CoV-2 RNA (RT-PCR) Negative (NEGATIVE) 04/28/20 15:20 Weight: 243 lb 12.8 oz Wound Present: No Closed Surgical Incision Present: No Negative Pressure Wound Therapy Present: No Physician Update: Labs were reviewed and are stable. She has significant pain which is managed by alternating her pain medication. She is contact guard to minimum assistance with transfers. Walked 50' with contact guard assistance. Leaning forward causing radicular pain. Functional Improvement: pt presents with moderate <-> severe strength deficits in bilateral LEs with greater deficits in the R LE due to pain. pt demonstrates poor balance and stability during ambulation and functional transfers. pt exhibits poor trunk strength. pt is limited greatly by shooting pain down her R LE. pt experiences poor tolerance to functional activity due to pain, fatigue, weakness, SOB, and diminished balance. Skilled PT services are necessary to address the above mentioned impairments and functional limitations. Summary: Patient's care plan and equipment operator intermodal yard goals have been reviewed and revised as necessary. Please see the Rehabilitation Signature page for all necessary signatures.
[2020-04-30] MEDS: CRANBERRY FRUIT EXTRACT 200 MG CAP PO SCH (20:24)
[2020-04-30] MEDS: PRAMIPEXOLE 0.25 MG TAB PO SCH (20:25)
[2020-04-30] MEDS: MIRTAZAPINE 15 MG TAB PO SCH (20:25)
[2020-04-30] MEDS: QUETIAPINE 25 MG TAB PO SCH (20:25)
[2020-05-01] MEDS: OXYCODONE HCL 5 MG TAB PO PRN ×3 (05:59→19:35)
[2020-05-01] MEDS: LEVOTHYROXINE SOD 0.112 MG TAB PO SCH (06:26)
[2020-05-01] MEDS: HEPARIN 5000 UNIT/ML 1 ML VIAL SQ SCH ×2 (07:40→19:35)
[2020-05-01] MEDS: LIDOCAINE 4% PATCH TOP SCH (08:00)
[2020-05-01] MEDS: PRESTIQ PO SCH (08:00)
[2020-05-01] MEDS: PREGABALIN 50 MG CAP PO SCH (08:01)
[2020-05-01] MEDS: PREGABALIN 150 MG CAP PO SCH ×2 (08:01→19:34)
[2020-05-01] MEDS: CRANBERRY FRUIT EXTRACT 200 MG CAP PO SCH ×2 (08:01→19:34)
[2020-05-01] MEDS: methocarbamoL 750 MG TAB PO PRN (15:17)
[2020-05-01] MEDS: QUETIAPINE 25 MG TAB PO SCH (19:34)
[2020-05-01] MEDS: PRAMIPEXOLE 0.25 MG TAB PO SCH (19:34)
[2020-05-01] MEDS: MIRTAZAPINE 15 MG TAB PO SCH (19:35)
[2020-05-01] MEDS: DOCUSATE NA/SENNA CONC 1 TAB PO SCH (19:35)
[2020-05-01] MEDS: CLOTRIMAZOLE 1% CREAM 15 GM TOP SCH (19:36)
[2020-05-02] MEDS: methocarbamoL 750 MG TAB PO PRN ×2 (00:41→20:12)
[2020-05-02] MEDS: ACETAMINOPHEN 500 MG TAB PO PRN ×2 (00:41→20:12)
[2020-05-02] MEDS: OXYCODONE HCL 5 MG TAB PO PRN ×2 (06:44→14:29)
[2020-05-02] MEDS: LEVOTHYROXINE SOD 0.112 MG TAB PO SCH (06:45)
[2020-05-02] MEDS: PREGABALIN 150 MG CAP PO SCH ×2 (08:14→20:12)
[2020-05-02] MEDS: CRANBERRY FRUIT EXTRACT 200 MG CAP PO SCH ×2 (08:14→20:12)
[2020-05-02] MEDS: DESVENLAFAXINE 100 MG PO SCH (08:14)
[2020-05-02] MEDS: LIDOCAINE 4% PATCH TOP SCH (08:15)
[2020-05-02] MEDS: HEPARIN 5000 UNIT/ML 1 ML VIAL SQ SCH ×2 (09:00→17:59)
[2020-05-02] MEDS: CLOTRIMAZOLE 1% CREAM 15 GM TOP SCH ×2 (09:27→20:00)
--- NOTE | 2020-05-02 14:29 | FAST ---
[employer] FORM SHIFT START DATE/TIME: 05/02/2020 07:00 (STEVEDORING SUPERINTENDENT) SHIFT END DATE/TIME: 05/02/2020 19:00 (STEVEDORING SUPERINTENDENT) NAME TIP KLINE DATE OF : 1950 DATE OF ADMISSION: 04/28/2020 15:20 (STEVEDORING SUPERINTENDENT) PHONE: AGE: 69 N# [id number] GENDER: Female ENCOUNTER PHYSICIAN: Dr. Otf Murdock M.D. 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 EATING: EATING - STEP 1: Does the patient complete the activity by him/herself with no assistance (physical, verbal/nonverbal cueing, setup/clean-up)? No. EATING - STEP 2: Does the patient need only setup/clean-up assistance from one helper? Yes. 1. [id number] ADMISSION PERFORMANCE: Setup or clean-up assistance CODE: 05 ORAL HYGIENE: ORAL HYGIENE - STEP 1: Does the patient complete the activity by him/herself with no assistance (physical, verbal/nonverbal cueing, setup/clean-up)? No. ORAL HYGIENE - STEP 2: Does the patient need only setup/clean-up assistance from one helper? Yes. 1. [id number] ADMISSION PERFORMANCE: Setup or clean-up assistance CODE: 05 TOILETING HYGIENE: TOILETING HYGIENE - STEP 1: Does the patient complete the activity by him/herself with no assistance (physical, verbal/nonverbal cueing, setup/clean-up)? No. TOILETING HYGIENE - STEP 2: Does the patient need only setup/clean-up assistance from one helper? Yes. 1. [id number] ADMISSION PERFORMANCE: Setup or clean-up assistance CODE: 05 BATHING: Not assessed/no information CODE: - DRESSING - UPPER BODY: DRESSING - UPPER BODY - STEP 1: Does the patient complete the activity by him/herself with no assistance (physical, verbal/nonverbal cueing, setup/clean-up)? No. DRESSING - UPPER BODY - STEP 2: Does the patient need only setup/clean-up assistance from one helper? No. DRESSING - UPPER BODY - STEP 3: Does the patient need only verbal/nonverbal cueing or touching/steadying/contact guard assistance fro m one helper? Yes. 1. [id number] ADMISSION PERFORMANCE: Supervision or touching assistance CODE: 04 DRESSING - LOWER BODY: DRESSING - LOWER BODY - STEP 1: Does the patient complete the activity by him/herself with no assistance (physical, verbal/nonverbal cueing, setup/clean-up)? No. DRESSING - LOWER BODY - STEP 2: Does the patient need only setup/clean-up assistance from one helper? No. DRESSING - LOWER BODY - STEP 3: Does the patient need only verbal/nonverbal cueing or touching/steadying/contact guard assistance fro m one helper? No. DRESSING - LOWER BODY - STEP 4: Does the patient need physical assistance - for example lifting or trunk support from one helper - wi th the helper providing less than half of the effort? No. DRESSING - LOWER BODY - STEP 5: Does the patient need physical assistance - for example lifting or trunk support from one helper - wi th the helper providing more than half of the effort? Yes. 1. [id number] ADMISSION PERFORMANCE: Substantial/maximal assistance CODE: 02 PUTTING ON/TAKING OFF FOOTWEAR: FOOTWEAR - STEP 1: Does the patient complete the activity by him/herself with no assistance (physical, verbal/nonverbal cueing, setup/clean-up)? No. FOOTWEAR - STEP 2: Does the patient need only setup/clean-up assistance from one helper? No. FOOTWEAR - STEP 3: Does the patient need only verbal/nonverbal cueing or touching/steadying/contact guard assistance fro m one helper? No. FOOTWEAR - STEP 4: Does the patient need physical assistance - for example lifting or trunk support from one helper - wi th the helper providing less than half of the effort? No. FOOTWEAR - STEP 5: Does the patient need physical assistance - for example lifting or trunk support from one helper - wi th the helper providing more than half of the effort? Yes. 1. [id number] ADMISSION PERFORMANCE: Substantial/maximal assistance CODE: 02 SIT TO LYING: SIT TO LYING - STEP 1: Does the patient complete the activity by him/herself with no assistance (physical, verbal/nonverbal cueing, setup/clean-up)? No. SIT TO LYING - STEP 2: Does the patient need only setup/clean-up assistance from one helper? No. SIT TO LYING - STEP 3: Does the patient need only verbal/nonverbal cueing or touching/steadying/contact guard assistance fro m one helper? Yes. 1. [id number] ADMISSION PERFORMANCE: Supervision or touching assistance CODE: 04 LYING TO SITTING: LYING TO SITTING ON SIDE OF BED - STEP 1: Does the patient complete the activity by him/herself with no assistance (physical, verbal/nonverbal cueing, setup/clean-up)? No. LYING TO SITTING ON SIDE OF BED - STEP 2: Does the patient need only setup/clean-up assistance from one helper? Yes. 1. [id number] ADMISSION PERFORMANCE: Setup or clean-up assistance CODE: 05 SIT TO STAND: SIT TO STAND - STEP 1: Does the patient complete the activity by him/herself with no assistance (physical, verbal/nonverbal cueing, setup/clean-up)? No. SIT TO STAND - STEP 2: Does the patient need only setup/clean-up assistance from one helper? Yes. 1. [id number] ADMISSION PERFORMANCE: Setup or clean-up assistance CODE: 05 TRANSFERS: BED, CHAIR: CHAIR/[id number] TRANSFER - STEP 1: Does the patient complete the activity by him/herself with no assistance (physical, verbal/nonverbal cueing, setup/clean-up)? No. CHAIR/[id number] TRANSFER - STEP 2: Does the patient need only setup/clean-up assistance from one helper? No. CHAIR/[id number] TRANSFER - STEP 3: Does the patient need only verbal/nonverbal cueing or touching/steadying/contact guard assistance fro m one helper? Yes. 1. [id number] ADMISSION PERFORMANCE: Supervision or touching assistance CODE: 04 TRANSFER TOILET: TOILET TRANSFER - STEP 1: Does the patient complete the activity by him/herself with no assistance (physical, verbal/nonverbal cueing, setup/clean-up)? No. TOILET TRANSFER - STEP 2: Does the patient need only setup/clean-up assistance from one helper? No. TOILET TRANSFER - STEP 3: Does the patient need only verbal/nonverbal cueing or touching/steadying/contact guard assistance fro m one helper? Yes. 1. [id number] ADMISSION PERFORMANCE: Supervision or touching assistance CODE: 04 TRANSFERS: CAR: Not assessed/no information CODE: - WALK 10 FEET: Not assessed/no information CODE: - 1 STEP (CURB): Not assessed/no information CODE: - PICKING UP OBJECT: Not assessed/no information CODE: - DOES THE PATIENT USE A WHEELCHAIR/SCOOTER? Q1. DOES THE PATIENT USE A WHEELCHAIR/SCOOTER?: Yes CODE: 1 WHEEL 50 FEET WITH TWO TURNS: Not assessed/no information CODE: - INDICATE THE TYPE OF WHEELCHAIR/SCOOTER USED: CODE: EXPR WHEEL 150 FEET: Not assessed/no information CODE: - INDICATE THE TYPE OF WHEELCHAIR/SCOOTER USED: SS1. INDICATE THE TYPE OF WHEELCHAIR/SCOOTER USED.: Manual CODE: 1 BLADDER AND BOWEL: H350. BLADDER CONTINENCE (3-DAY ASSESSMENT PERIOD): Always continent (no documented incontinence) CODE: 0 H400. BOWEL CONTINENCE (3-DAY ASSESSMENT PERIOD): Always continent CODE: 0 SIGNATURE PANEL: The following modified sections: 1. [id number] Admission Performance, 1. [id number] Admission Performance, 1. [id number] Admission Performance, 1. [id number] Admission Performance, 1. BP0106y Admission Performance, 1. MG5391m Admission Performance, 1. [id number] Admission Performance, 1. FA1872g Admission Performance , 1. AH0088U Admission Performance, 1. [id number] Admission Performance, 1. [id number] Admission Performanc e, 1. [id number] Admission Performance, 1. [id number] Admission Performance, 1. [id number] Admission Performan ce, Q1. Does the patient use a wheelchair/scooter?, Code, SS1. Indicate the type of wheelchair/scoote r used., H350. Bladder Continence (3-day assessment period), H400. Bowel Continence (3-day assessment period) were [electronically] signed by Jaqueline BurdenNVince on SunMay 02 2020 14:28:04 GMT-0600 (C entral Standard Time)
[2020-05-02] MEDS: QUETIAPINE 25 MG TAB PO SCH (20:13)
[2020-05-02] MEDS: PRAMIPEXOLE 0.25 MG TAB PO SCH (20:13)
[2020-05-02] MEDS: MELATONIN 3 MG TABLET PO PRN (20:13)
[2020-05-02] MEDS: DOCUSATE NA/SENNA CONC 1 TAB PO SCH (20:13)
[2020-05-02] MEDS: MIRTAZAPINE 15 MG TAB PO SCH (20:13)
[2020-05-03] MEDS: ACETAMINOPHEN 500 MG TAB PO PRN ×2 (02:05→16:43)
[2020-05-03] MEDS: methocarbamoL 750 MG TAB PO PRN ×2 (02:05→11:13)
[2020-05-03] MEDS: OXYCODONE HCL 5 MG TAB PO PRN ×3 (05:36→17:54)
[2020-05-03] MEDS: HEPARIN 5000 UNIT/ML 1 ML VIAL SQ SCH ×2 (06:26→18:34)
[2020-05-03] MEDS: LIDOCAINE 4% PATCH TOP SCH (06:39)
[2020-05-03] MEDS: LEVOTHYROXINE SOD 0.112 MG TAB PO SCH (06:40)
[2020-05-03] MEDS: DESVENLAFAXINE SUCCINATE 50 MG ER TAB PO SCH (08:00)
[2020-05-03] MEDS: CLOTRIMAZOLE 1% CREAM 15 GM TOP SCH ×2 (08:00→20:44)
[2020-05-03] MEDS: DESVENLAFAXINE 100 MG PO SCH (08:00)
[2020-05-03] MEDS: PREGABALIN 150 MG CAP PO SCH ×2 (08:06→20:45)
[2020-05-03] MEDS: CRANBERRY FRUIT EXTRACT 200 MG CAP PO SCH ×2 (08:06→20:44)
--- NOTE | 2020-05-03 18:39 | R.PN ---
PROGRESS NOTES ENCOUNTER DATE AND TIME: 05/03/2020 18:32 (ACCOUNTANT BUDGET) NAME TIP KLINE DATE OF : 1950 DATE OF ADMISSION: 04/28/2020 15:20 (ACCOUNTANT BUDGET) SPINAL FRACTURE OF T-9 CHIEF COMPLAINT: Thoracic compression fracture SUBJECTIVE: Pt denied any Shortness of Breath. Pt denied any depression. WBC 5.1, Hgb 10.4, prealbumin 14.8, UA shows 1+ blood, 2+ esterase, > 50 bacteria, bacteria 10-20. Ambulated 545' with contact guard assistance using a rolling walker. VITAL SIGNS Temperature: 97.2 SBP/DBP: 141/65 Pulse: 63 Resp: 16 MEDICATION ALLERGIES: CODINE MORPHINE SULFA DRUG ENVIRONMENTAL ALLERGIES: - Substance Allergies None Known - Other Allergies None Known NURSING: - Shower allowing shower - Bladder care per protocol - Skin care per protocol ACTIVITIES OOB only with supervision THERAPIES: - Orthotics/Prosthetics Orthotic Evaluation. Splinting/Casting. - Dietary and Nutrition Adequate Nutrition. Nutritional Education. Nutritional Supplements. PHYSICAL EXAM - Gen Alert and awake Lying in bed No apparent distress Oriented to: person, time, and place - Skin No skin breakdown. Normacephalic - Eyes No abnormalities - ENMT No abnormalities - Neck No abnormalities No cervical adenopathy - CVS RRR - Chest No abnormalities - Resp Clear to auscultation - Abd Soft - GI Non distended Deferred - No abnormalities - Ext No significant edema - MSK 4+/5 weakness in both lower extremities. - Neuro No focal deficits - Psych No abnormalities ASSESSMENT: Pt. 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 was independent/mod-I in Safety Aware ness, Balance, Transfers Control, Sphincter Control, and Endurance; and she had good Locomotion.Curre ntly, she has deficits of Endurance, Sphincter Control, Transfers Control, Balance, and Locomotion.Pt . is now referred to [facility] for acute in-patient rehabilitation in order t o maximize patient's functional independence in activities of daily living, strength, ROM, and mobili ty.- Rehab Goal Patient has realistic goal of being discharged at assistance level 7-Ind to reside at Home with Fami ly/Relatives. MDM/PLAN: - Physical Therapy Gait dysfunction - to improve, our physical therapists will perform initial evaluation of pt's statu s upon admission and devise an individualized program for Gait Training, and Wheel Chair mobility Inability to transfer - to improve, our physical therapists will perform initial evaluation of pt's status upon admission and devise an individualized program for Bed mobility Need for home safety evaluation - to improve, our physical therapists will perform initial evaluatio n of pt's status upon admission and devise an individualized program for Home Evaluation Need in caregiver upon discharge - to improve, our physical therapists will perform initial evaluati on of pt's status upon admission and devise an individualized program for Caregiver Training New precaution - to improve, our physical therapists will perform initial evaluation of pt's status upon admission and devise an individualized program for Patient precaution education Edema - to improve, our physical therapists will perform initial evaluation of pt's status upon admis zeny and devise an individualized program for Elevation Training, and Lymphedema Therapy Poor balance - to improve, our physical therapists will perform initial evaluation of pt's status up on admission and devise an individualized program for Balance Training Poor endurance - to improve, our physical therapists will perform initial evaluation of pt's status upon admission and devise an individualized program for Endurance Training Weakness - to improve, our physical therapists will perform initial evaluation of pt's status upon a dmission and devise an individualized program for Aquatic Therapy, Neuromuscular Reeducation, and Str engthening Achieving independence - to improve, our physical therapists will perform initial evaluation of pt's status upon admission and devise an individualized program for Community Reintegration Activities - Occupational Therapy Need for child care centre director - to improve, our occupation therapists will perform initial evaluation of pt's status upon admission and devise an individualized program for Caregiver Training Weakness - to improve, our occupation therapists will perform initial evaluation of pt's status upon admission and devise an individualized program for Aquatic Therapy, Balance, Endurance, UE ROM, and UE strengthening - Other See attached MAR (Medication Administration Record) - Diet Type Continue Regular - Diet - Liquid Texture Continue Regular - Tube Feed Continue N/A - Bladder care per protocol - Skin care per protocol - Diet - Solid Texture Continue Regular - Shower allowing shower FUNCTIONAL STATUS: UPDATED AT WEEKLY TEAM CONFERENCE - Bladder Same accident frequency: 7-Ind - No accidents in the past 7 days - Bowel Same accident frequency: 7-Ind - No accidents in the past 7 days - Walking Same score based on distance walked: 0(N/A) - Wheelchair Same score based on distance traveled: 0(N/A) FUNCTIONAL STATUS: - Self-Care A. Eating Hong B. Grooming Hong C. Bathing sup D. Dressing - Upper sup E. Dressing - Lower [place] F. Toileting [place] - Sphincter Control G. Bladder control sup H. Bowel control sup - Transfers Control I. Bed/Chair/Wheelchair sup J. Toilet sup K. Tub/Shower [place] - Locomotion L. Walk/Wheelchair (B) [place] M. Stairs sup - Communication N. Comprehension (B) Hong O. Expression (B) Hong - Social Cognition P. Social Interaction Hong Q. Problem Solving Hong R. Memory Hong - Endurance Fair - Balance Fair - Safety Awareness Good QI SCORES: - Self-Care A. Eating 03-Partial/moderate assistance B. Oral hygiene 03-Partial/moderate assistance C. Toileting hygiene 03-Partial/moderate assistance E. Shower/bathe self 03-Partial/moderate assistance F. Upper body dressing 03-Partial/moderate assistance G. Lower body dressing 88-Not attempted due to medical condition or safety concerns H. Putting on/taking off footwear 88-Not attempted due to medical condition or safety concerns - Mobility A. Roll left and right 04-Supervision or touching assistance B. Sit to lying 04-Supervision or touching assistance C. Lying to sitting on side of bed 03-Partial/moderate assistance D. Sit to stand 03-Partial/moderate assistance E. Chair/zdr-[id number]-[id number] transfer 03-Partial/moderate assistance F. Toilet transfer 03-Partial/moderate assistance G. Car transfer 88-Not attempted due to medical condition or safety concerns I. Walk 10 feet 03-Partial/moderate assistance J. Walk 50 feet with two turns 03-Partial/moderate assistance K. Walk 150 feet 88-Not attempted due to medical condition or safety concerns L. Walking 10 feet on uneven surfaces 88-Not attempted due to medical condition or safety concerns M. 1 step (curb) 88-Not attempted due to medical condition or safety concerns N. 4 steps 88-Not attempted due to medical condition or safety concerns O. 12 steps 88-Not attempted due to medical condition or safety concerns P. Picking up object 88-Not attempted due to medical condition or safety concerns R. Wheel 50 feet with two turns 88-Not attempted due to medical condition or safety concerns S. Wheel 150 feet 88-Not attempted due to medical condition or safety concerns - Bladder and Bowel Bladder continence Bowel continence - Endurance Fair - Balance Fair - Safety Awareness Fair CURRENT [facility]. DEFICITS: Self-Care, Mobility, Endurance, Balance, and Safety Awareness SIGNATURE PANEL: (ACCOUNTANT BUDGET)
[2020-05-03 18:56] LABS: Urine Appearance CLEAR; Urine Bilirubin NEGATIVE (NEG); Urine Blood NEGATIVE (NEG); Urine Color YELLOW; Urine Glucose NEGATIVE (NEG); Urine Protein NEGATIVE (NEG); Urine Specific Gravity 1.025 (1.005-1.030); Urine Urobilinogen 0.2 mg/dL (0.2-1.0)
[2020-05-03 19:10] LABS: Urine Bacteria 20-50 /HPF (<20); Urine RBC <5 /HPF (NONE SEEN)
[2020-05-03] MEDS: MIRTAZAPINE 15 MG TAB PO SCH (20:45)
[2020-05-03] MEDS: DOCUSATE NA/SENNA CONC 1 TAB PO SCH (20:45)
[2020-05-03] MEDS: PRAMIPEXOLE 0.25 MG TAB PO SCH (20:45)
[2020-05-03] MEDS: QUETIAPINE 25 MG TAB PO SCH (20:45)
[2020-05-04] MEDS: OXYCODONE HCL 5 MG TAB PO PRN ×2 (05:34→12:07)
[2020-05-04] MEDS: HEPARIN 5000 UNIT/ML 1 ML VIAL SQ SCH ×2 (06:11→19:09)
[2020-05-04] MEDS: LIDOCAINE 4% PATCH TOP SCH (06:12)
[2020-05-04] MEDS: LEVOTHYROXINE SOD 0.112 MG TAB PO SCH (06:12)
[2020-05-04] MEDS: DESVENLAFAXINE SUCCINATE 50 MG ER TAB PO SCH (08:00)
[2020-05-04] MEDS ORDERED: DESVENLAFAXINE 100 MG PO SCH (08:00)
[2020-05-04] MEDS: CLOTRIMAZOLE 1% CREAM 15 GM TOP SCH ×2 (08:09→19:57)
[2020-05-04] MEDS: CRANBERRY FRUIT EXTRACT 200 MG CAP PO SCH ×2 (08:10→19:44)
[2020-05-04] MEDS: DESVENLAFAXINE 100 MG PO SCH (08:10)
[2020-05-04] MEDS: PREGABALIN 150 MG CAP PO SCH ×2 (08:10→19:45)
[2020-05-04] MEDS: methocarbamoL 750 MG TAB PO PRN (10:05)
--- NOTE | 2020-05-04 17:10 | R.PN ---
PROGRESS NOTES ENCOUNTER DATE AND TIME: 05/04/2020 17:04 (COOK ROAST) NAME TIP KLINE DATE OF : 1950 DATE OF ADMISSION: 04/28/2020 15:20 (COOK ROAST) SPINAL FRACTURE OF T-9 CHIEF COMPLAINT: Thoracic compression fracture SUBJECTIVE: Pt denied any Shortness of Breath. Pt denied any depression. WBC 5.1, Hgb 10.4, prealbumin 14.8, Repeat UA shows positive nitrite, 2+ esterase, 20 to 50 bacteria, WBC 20 to 50. Ambulated 706' with standby assistance using a rolling walker. VITAL SIGNS Temperature: 97.7 SBP/DBP: 131/61 Pulse: 62 Resp: 16 MEDICATION ALLERGIES: CODINE MORPHINE SULFA DRUG ENVIRONMENTAL ALLERGIES: - Substance Allergies None Known - Other Allergies None Known NURSING: - Shower allowing shower - Bladder care per protocol - Skin care per protocol ACTIVITIES OOB only with supervision THERAPIES: - Orthotics/Prosthetics Orthotic Evaluation. Splinting/Casting. - Dietary and Nutrition Adequate Nutrition. Nutritional Education. Nutritional Supplements. PHYSICAL EXAM - Gen Alert and awake Lying in bed No apparent distress Oriented to: person, time, and place - Skin No skin breakdown. Normacephalic - Eyes No abnormalities - ENMT No abnormalities - Neck No abnormalities No cervical adenopathy - CVS RRR - Chest No abnormalities - Resp Clear to auscultation - Abd Soft - GI Non distended Deferred - No abnormalities - Ext No significant edema - MSK 4+/5 weakness in both lower extremities. - Neuro No focal deficits - Psych No abnormalities ASSESSMENT: Pt. 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 was independent/mod-I in Safety Aware ness, Balance, Transfers Control, Sphincter Control, and Endurance; and she had good Locomotion.Curre ntly, she has deficits of Endurance, Sphincter Control, Transfers Control, Balance, and Locomotion.Pt . is now referred to [facility] for acute in-patient rehabilitation in order t o maximize patient's functional independence in activities of daily living, strength, ROM, and mobili ty.- Rehab Goal Patient has realistic goal of being discharged at assistance level 7-Ind to reside at Home with Fami ly/Relatives. MDM/PLAN: - Physical Therapy Gait dysfunction - to improve, our physical therapists will perform initial evaluation of pt's statu s upon admission and devise an individualized program for Gait Training, and Wheel Chair mobility Inability to transfer - to improve, our physical therapists will perform initial evaluation of pt's status upon admission and devise an individualized program for Bed mobility Need for home safety evaluation - to improve, our physical therapists will perform initial evaluatio n of pt's status upon admission and devise an individualized program for Home Evaluation Need in caregiver upon discharge - to improve, our physical therapists will perform initial evaluati on of pt's status upon admission and devise an individualized program for Caregiver Training New precaution - to improve, our physical therapists will perform initial evaluation of pt's status upon admission and devise an individualized program for Patient precaution education Edema - to improve, our physical therapists will perform initial evaluation of pt's status upon admi ssion and devise an individualized program for Elevation Training, and Lymphedema Therapy Poor balance - to improve, our physical therapists will perform initial evaluation of pt's status up on admission and devise an individualized program for Balance Training Poor endurance - to improve, our physical therapists will perform initial evaluation of pt's status upon admission and devise an individualized program for Endurance Training Weakness - to improve, our physical therapists will perform initial evaluation of pt's status upon a dmission and devise an individualized program for Aquatic Therapy, Neuromuscular Reeducation, and Str engthening Achieving independence - to improve, our physical therapists will perform initial evaluation of pt's status upon admission and devise an individualized program for Community Reintegration Activities - Occupational Therapy Need for home care physical therapist - to improve, our occupation therapists will perform initial evaluation of pt's status upon admission and devise an individualized program for Caregiver Training Weakness - to improve, our occupation therapists will perform initial evaluation of pt's status upon admission and devise an individualized program for Aquatic Therapy, Balance, Endurance, UE ROM, and UE strengthening - Other See attached MAR (Medication Administration Record) - Diet Type Continue Regular - Diet - Liquid Texture Continue Regular - Tube Feed Continue N/A - Bladder care per protocol - Skin care per protocol - Diet - Solid Texture Continue Regular - Shower allowing shower FUNCTIONAL STATUS: UPDATED AT WEEKLY TEAM CONFERENCE - Bladder Same accident frequency: 7-Ind - No accidents in the past 7 days - Bowel Same accident frequency: 7-Ind - No accidents in the past 7 days - Walking Same score based on distance walked: 0(N/A) - Wheelchair Same score based on distance traveled: 0(N/A) FUNCTIONAL STATUS: - Self-Care A. Eating Hong B. Grooming Hong C. Bathing sup D. Dressing - Upper sup E. Dressing - Lower [place] F. Toileting [place] - Sphincter Control G. Bladder control sup H. Bowel control sup - Transfers Control I. Bed/Chair/Wheelchair sup J. Toilet sup K. Tub/Shower [place] - Locomotion L. Walk/Wheelchair (B) [place] M. Stairs sup - Communication N. Comprehension (B) Hong O. Expression (B) Hong - Social Cognition P. Social Interaction Hong Q. Problem Solving Hong R. Memory Hong - Endurance Fair - Balance Fair - Safety Awareness Good QI SCORES: - Self-Care A. Eating 03-Partial/moderate assistance B. Oral hygiene 03-Partial/moderate assistance C. Toileting hygiene 03-Partial/moderate assistance E. Shower/bathe self 03-Partial/moderate assistance F. Upper body dressing 03-Partial/moderate assistance G. Lower body dressing 88-Not attempted due to medical condition or safety concerns H. Putting on/taking off footwear 88-Not attempted due to medical condition or safety concerns - Mobility A. Roll left and right 04-Supervision or touching assistance B. Sit to lying 04-Supervision or touching assistance C. Lying to sitting on side of bed 03-Partial/moderate assistance D. Sit to stand 03-Partial/moderate assistance E. Chair/afo-kl-wlhib transfer 03-Partial/moderate assistance F. Toilet transfer 03-Partial/moderate assistance G. Car transfer 88-Not attempted due to medical condition or safety concerns I. Walk 10 feet 03-Partial/moderate assistance J. Walk 50 feet with two turns 03-Partial/moderate assistance K. Walk 150 feet 88-Not attempted due to medical condition or safety concerns L. Walking 10 feet on uneven surfaces 88-Not attempted due to medical condition or safety concerns M. 1 step (curb) 88-Not attempted due to medical condition or safety concerns N. 4 steps 88-Not attempted due to medical condition or safety concerns O. 12 steps 88-Not attempted due to medical condition or safety concerns P. Picking up object 88-Not attempted due to medical condition or safety concerns R. Wheel 50 feet with two turns 88-Not attempted due to medical condition or safety concerns S. Wheel 150 feet 88-Not attempted due to medical condition or safety concerns - Bladder and Bowel Bladder continence Bowel continence - Endurance Fair - Balance Fair - Safety Awareness Fair CURRENT [facility]. DEFICITS: Self-Care, Mobility, Endurance, Balance, and Safety Awareness SIGNATURE PANEL: (COOK ROAST)
[2020-05-04] MEDS: MIRTAZAPINE 15 MG TAB PO SCH (19:45)
[2020-05-04] MEDS: PRAMIPEXOLE 0.25 MG TAB PO SCH (19:45)
[2020-05-04] MEDS: DOCUSATE NA/SENNA CONC 1 TAB PO SCH (19:45)
[2020-05-04] MEDS: QUETIAPINE 25 MG TAB PO SCH (19:45)
[2020-05-05] MEDS: OXYCODONE HCL 5 MG TAB PO PRN ×2 (05:30→12:54)
[2020-05-05] MEDS: HEPARIN 5000 UNIT/ML 1 ML VIAL SQ SCH ×2 (06:55→18:59)
[2020-05-05] MEDS: LEVOTHYROXINE SOD 0.112 MG TAB PO SCH (06:59)
[2020-05-05] MEDS: CLOTRIMAZOLE 1% CREAM 15 GM TOP SCH ×2 (08:00→19:55)
[2020-05-05] MEDS: LIDOCAINE 4% PATCH TOP SCH (08:33)
[2020-05-05] MEDS: PREGABALIN 150 MG CAP PO SCH ×2 (08:34→19:55)
[2020-05-05] MEDS: CRANBERRY FRUIT EXTRACT 200 MG CAP PO SCH ×2 (08:34→19:54)
[2020-05-05] MEDS: DESVENLAFAXINE 100 MG PO SCH (08:36)
[2020-05-05] MEDS: methocarbamoL 750 MG TAB PO PRN (09:47)
[2020-05-05] MEDS: levoFLOXacin 500 MG TAB PO SCH (17:03)
[2020-05-05] MEDS: DOCUSATE NA/SENNA CONC 1 TAB PO SCH (19:54)
[2020-05-05] MEDS: PRAMIPEXOLE 0.25 MG TAB PO SCH (19:55)
[2020-05-05] MEDS: MIRTAZAPINE 15 MG TAB PO SCH (19:55)
[2020-05-05] MEDS: QUETIAPINE 25 MG TAB PO SCH (19:55)
--- NOTE | 2020-05-06 02:39 | R.PN ---
PROGRESS NOTES ENCOUNTER DATE AND TIME: 05/05/2020 18:58 (DIXONAC OPERATOR) NAME TIP KLINE DATE OF : 1950 DATE OF ADMISSION: 04/28/2020 15:20 (DIXONAC OPERATOR) SPINAL FRACTURE OF T-9 CHIEF COMPLAINT: Thoracic compression fracture SUBJECTIVE: Pt denied any Shortness of Breath. Pt denied any depression. WBC 5.1, Hgb 10.4, prealbumin 14.8, Repeat UA shows positive nitrite, 2+ esterase, 20 to 50 bacteria, WBC 20 to 50. Ambulated 380' with standby assistance using a rolling walker. VITAL SIGNS Temperature: 97.2 F SBP/DBP: 153/65 Pulse: 61 Resp: 16 MEDICATION ALLERGIES: CODINE MORPHINE SULFA DRUG ENVIRONMENTAL ALLERGIES: - Substance Allergies None Known - Other Allergies None Known NURSING: - Shower allowing shower - Bladder care per protocol - Skin care per protocol ACTIVITIES OOB only with supervision THERAPIES: - Orthotics/Prosthetics Orthotic Evaluation. Splinting/Casting. - Dietary and Nutrition Adequate Nutrition. Nutritional Education. Nutritional Supplements. PHYSICAL EXAM - Gen Alert and awake Lying in bed No apparent distress Oriented to: person, time, and place - Skin No skin breakdown. Normacephalic - Eyes No abnormalities - ENMT No abnormalities - Neck No abnormalities No cervical adenopathy - CVS RRR - Chest No abnormalities - Resp Clear to auscultation - Abd Soft - GI Non distended Deferred - No abnormalities - Ext No significant edema - MSK 4+/5 weakness in both lower extremities. - Neuro No focal deficits - Psych No abnormalities ASSESSMENT: Pt. 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 was independent/mod-I in Safety Aware ness, Balance, Transfers Control, Sphincter Control, and Endurance; and she had good Locomotion.Curre ntly, she has deficits of Endurance, Sphincter Control, Transfers Control, Balance, and Locomotion.Pt . is now referred to [facility] for acute in-patient rehabilitation in order t o maximize patient's functional independence in activities of daily living, strength, ROM, and mobili ty.- Rehab Goal Patient has realistic goal of being discharged at assistance level 7-Ind to reside at Home with Fami ly/Relatives. MDM/PLAN: - Physical Therapy Gait dysfunction - to improve, our physical therapists will perform initial evaluation of pt's statu s upon admission and devise an individualized program for Gait Training, and Wheel Chair mobility Inability to transfer - to improve, our physical therapists will perform initial evaluation of pt's status upon admission and devise an individualized program for Bed mobility Need for home safety evaluation - to improve, our physical therapists will perform initial evaluatio n of pt's status upon admission and devise an individualized program for Home Evaluation Need in caregiver upon discharge - to improve, our physical therapists will perform initial evaluati on of pt's status upon admission and devise an individualized program for Caregiver Training New precaution - to improve, our physical therapists will perform initial evaluation of pt's status upon admission and devise an individualized program for Patient precaution education Edema - to improve, our physical therapists will perform initial evaluation of pt's status upon admi ssion and devise an individualized program for Elevation Training, and Lymphedema Therapy Poor balance - to improve, our physical therapists will perform initial evaluation of pt's status up on admission and devise an individualized program for Balance Training Poor endurance - to improve, our physical therapists will perform initial evaluation of pt's status upon admission and devise an individualized program for Endurance Training Weakness - to improve, our physical therapists will perform initial evaluation of pt's status upon a dmission and devise an individualized program for Aquatic Therapy, Neuromuscular Reeducation, and Str engthening Achieving independence - to improve, our physical therapists will perform initial evaluation of pt's status upon admission and devise an individualized program for Community Reintegration Activities - Occupational Therapy Need for physician primary care sports medicine - to improve, our occupation therapists will perform initial evaluation of pt's status upon admission and devise an individualized program for Caregiver Training Weakness - to improve, our occupation therapists will perform initial evaluation of pt's status upon admission and devise an individualized program for Aquatic Therapy, Balance, Endurance, UE ROM, and UE strengthening - Other See attached MAR (Medication Administration Record) - Diet Type Continue Regular - Diet - Liquid Texture Continue Regular - Tube Feed Continue N/A - Bladder care per protocol - Skin care per protocol - Diet - Solid Texture Continue Regular - Shower allowing shower FUNCTIONAL STATUS: UPDATED AT WEEKLY TEAM CONFERENCE - Bladder Same accident frequency: 7-Ind - No accidents in the past 7 days - Bowel Same accident frequency: 7-Ind - No accidents in the past 7 days - Walking Same score based on distance walked: 0(N/A) - Wheelchair Same score based on distance traveled: 0(N/A) FUNCTIONAL STATUS: - Self-Care A. Eating Hong B. Grooming Hong C. Bathing sup D. Dressing - Upper sup E. Dressing - Lower [place] F. Toileting [place] - Sphincter Control G. Bladder control sup H. Bowel control sup - Transfers Control I. Bed/Chair/Wheelchair sup J. Toilet sup K. Tub/Shower [place] - Locomotion L. Walk/Wheelchair (B) [place] M. Stairs sup - Communication N. Comprehension (B) Hong O. Expression (B) Hong - Social Cognition P. Social Interaction Hong Q. Problem Solving Hong R. Memory Hong - Endurance Fair - Balance Fair - Safety Awareness Good QI SCORES: - Self-Care A. Eating 03-Partial/moderate assistance B. Oral hygiene 03-Partial/moderate assistance C. Toileting hygiene 03-Partial/moderate assistance E. Shower/bathe self 03-Partial/moderate assistance F. Upper body dressing 03-Partial/moderate assistance G. Lower body dressing 88-Not attempted due to medical condition or safety concerns H. Putting on/taking off footwear 88-Not attempted due to medical condition or safety concerns - Mobility A. Roll left and right 04-Supervision or touching assistance B. Sit to lying 04-Supervision or touching assistance C. Lying to sitting on side of bed 03-Partial/moderate assistance D. Sit to stand 03-Partial/moderate assistance E. Chair/jbh-ni-ogofz transfer 03-Partial/moderate assistance F. Toilet transfer 03-Partial/moderate assistance G. Car transfer 88-Not attempted due to medical condition or safety concerns I. Walk 10 feet 03-Partial/moderate assistance J. Walk 50 feet with two turns 03-Partial/moderate assistance K. Walk 150 feet 88-Not attempted due to medical condition or safety concerns L. Walking 10 feet on uneven surfaces 88-Not attempted due to medical condition or safety concerns M. 1 step (curb) 88-Not attempted due to medical condition or safety concerns N. 4 steps 88-Not attempted due to medical condition or safety concerns O. 12 steps 88-Not attempted due to medical condition or safety concerns P. Picking up object 88-Not attempted due to medical condition or safety concerns R. Wheel 50 feet with two turns 88-Not attempted due to medical condition or safety concerns S. Wheel 150 feet 88-Not attempted due to medical condition or safety concerns - Bladder and Bowel Bladder continence Bowel continence - Endurance Fair - Balance Fair - Safety Awareness Fair CURRENT [facility]. DEFICITS: Self-Care, Mobility, Endurance, Balance, and Safety Awareness SIGNATURE PANEL: (DIXONAC OPERATOR)
[2020-05-06] MEDS: methocarbamoL 750 MG TAB PO PRN ×2 (03:41→12:44)
[2020-05-06] MEDS: HEPARIN 5000 UNIT/ML 1 ML VIAL SQ SCH ×2 (06:17→18:42)
[2020-05-06] MEDS: LEVOTHYROXINE SOD 0.112 MG TAB PO SCH (06:22)
[2020-05-06] MEDS: OXYCODONE HCL 5 MG TAB PO PRN ×2 (06:22→18:12)
[2020-05-06 06:28] LABS: Absolute Lymphocytes (CBC) 1.8 K/uL (0.7-4.9); Basophils % 0.8 % (0-1.3); Hematocrit 33.4 % (36.0-45.0); Lymphocytes % 30.3 % (15.3-44.8); RBC Red Blood Cell Count 4.09 M/uL (3.86-4.86)
[2020-05-06 06:48] LABS: Albumin 3.1 g/dL (3.4-5.0); Magnesium 2.2 mg/dL (1.8-2.4); Potassium 4.2 mmol/L (3.5-5.1); Prealbumin 15.4 mg/dL (20-40)
[2020-05-06] MEDS: LIDOCAINE 4% PATCH TOP SCH (08:23)
[2020-05-06] MEDS: DESVENLAFAXINE 100 MG PO SCH (08:23)
[2020-05-06] MEDS: CLOTRIMAZOLE 1% CREAM 15 GM TOP SCH ×2 (08:24→19:26)
[2020-05-06] MEDS: CRANBERRY FRUIT EXTRACT 200 MG CAP PO SCH ×2 (08:24→19:22)
[2020-05-06] MEDS: PREGABALIN 150 MG CAP PO SCH ×2 (08:24→19:23)
[2020-05-06] MEDS: levoFLOXacin 500 MG TAB PO SCH (08:25)
[2020-05-06] MEDS ORDERED: levoFLOXacin 500 MG TAB PO SCH (14:30)
--- NOTE | 2020-05-06 18:17 | R.PN ---
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 Pt denied any depression. WBC 5.9, Hgb 10.8, prealbumin 15.4, Repeat UA shows positive nitrite, 2+ esterase, 20 to 50 bacteria, WBC 20 to 50. > 100,000 staph epidermidis. On Macrobid 100 mg bid for 1/5 days. Ambulated 380' with standby assistance using a rolling walker. VITAL SIGNS Temperature: 97.6 F SBP/DBP: 149/69 Pulse: 62 Resp: 16 MEDICATION ALLERGIES: CODINE MORPHINE SULFA DRUG ENVIRONMENTAL ALLERGIES: - Substance Allergies None Known - Other Allergies None Known NURSING: - Shower allowing shower - Bladder care per protocol - Skin care per protocol ACTIVITIES OOB only with supervision THERAPIES: - Orthotics/Prosthetics Orthotic Evaluation. Splinting/Casting. - Dietary and Nutrition Adequate Nutrition. Nutritional Education. Nutritional Supplements. PHYSICAL EXAM - Gen Alert and awake Lying in bed No apparent distress Oriented to: person, time, and place - Skin No skin breakdown. Normacephalic - Eyes No abnormalities - ENMT No abnormalities - Neck No abnormalities No cervical adenopathy - CVS RRR - Chest No abnormalities - Resp Clear to auscultation - Abd Soft - GI Non distended Deferred - No abnormalities - Ext No significant edema - MSK 4+/5 weakness in both lower extremities. - Neuro No focal deficits - Psych No abnormalities ASSESSMENT: Pt. 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 was independent/mod-I in Safety Aware ness, Balance, Transfers Control, Sphincter Control, and Endurance; and she had good Locomotion.Curre ntly, she has deficits of Endurance, Sphincter Control, Transfers Control, Balance, and Locomotion.Pt . is now referred to [facility] for acute in-patient rehabilitation in order t o maximize patient's functional independence in activities of daily living, strength, ROM, and mobili ty.- Rehab Goal Patient has realistic goal of being discharged at assistance level 7-Ind to reside at Home with Fami ly/Relatives. MDM/PLAN: - Physical Therapy Gait dysfunction - to improve, our physical therapists will perform initial evaluation of pt's statu s upon admission and devise an individualized program for Gait Training, and Wheel Chair mobility Inability to transfer - to improve, our physical therapists will perform initial evaluation of pt's status upon admission and devise an individualized program for Bed mobility Need for home safety evaluation - to improve, our physical therapists will perform initial evaluatio n of pt's status upon admission and devise an individualized program for Home Evaluation Need in caregiver upon discharge - to improve, our physical therapists will perform initial evaluati on of pt's status upon admission and devise an individualized program for Caregiver Training New precaution - to improve, our physical therapists will perform initial evaluation of pt's status upon admission and devise an individualized program for Patient precaution education Edema - to improve, our physical therapists will perform initial evaluation of pt's status upon admi ssion and devise an individualized program for Elevation Training, and Lymphedema Therapy Poor balance - to improve, our physical therapists will perform initial evaluation of pt's status up on admission and devise an individualized program for Balance Training Poor endurance - to improve, our physical therapists will perform initial evaluation of pt's status upon admission and devise an individualized program for Endurance Training Weakness - to improve, our physical therapists will perform initial evaluation of pt's status upon a dmission and devise an individualized program for Aquatic Therapy, Neuromuscular Reeducation, and Str engthening Achieving independence - to improve, our physical therapists will perform initial evaluation of pt's status upon admission and devise an individualized program for Community Reintegration Activities - Occupational Therapy Need for care technician - to improve, our occupation therapists will perform initial evaluation of pt's status upon admission and devise an individualized program for Caregiver Training Weakness - to improve, our occupation therapists will perform initial evaluation of pt's status upon admission and devise an individualized program for Aquatic Therapy, Balance, Endurance, UE ROM, and UE strengthening - Other See attached MAR (Medication Administration Record) - Diet Type Continue Regular - Diet - Liquid Texture Continue Regular - Tube Feed Continue N/A - Bladder care per protocol - Skin care per protocol - Diet - Solid Texture Continue Regular - Shower allowing shower FUNCTIONAL STATUS: UPDATED AT WEEKLY TEAM CONFERENCE - Bladder Same accident frequency: 7-Ind - No accidents in the past 7 days - Bowel Same accident frequency: 7-Ind - No accidents in the past 7 days - Walking Same score based on distance walked: 0(N/A) - Wheelchair Same score based on distance traveled: 0(N/A) FUNCTIONAL STATUS: - Self-Care A. Eating Hong B. Grooming Hong C. Bathing sup D. Dressing - Upper sup E. Dressing - Lower [place] F. Toileting [place] - Sphincter Control G. Bladder control sup H. Bowel control sup - Transfers Control I. Bed/Chair/Wheelchair sup J. Toilet sup K. Tub/Shower [place] - Locomotion L. Walk/Wheelchair (B) [place] M. Stairs sup - Communication N. Comprehension (B) Hong O. Expression (B) Hong - Social Cognition P. Social Interaction Hong Q. Problem Solving Hong R. Memory Hong - Endurance Fair - Balance Fair - Safety Awareness Good QI SCORES: - Self-Care A. Eating 03-Partial/moderate assistance B. Oral hygiene 03-Partial/moderate assistance C. Toileting hygiene 03-Partial/moderate assistance E. Shower/bathe self 03-Partial/moderate assistance F. Upper body dressing 03-Partial/moderate assistance G. Lower body dressing 88-Not attempted due to medical condition or safety concerns H. Putting on/taking off footwear 88-Not attempted due to medical condition or safety concerns - Mobility A. Roll left and right 04-Supervision or touching assistance B. Sit to lying 04-Supervision or touching assistance C. Lying to sitting on side of bed 03-Partial/moderate assistance D. Sit to stand 03-Partial/moderate assistance E. Chair/[id number]-[id number] transfer 03-Partial/moderate assistance F. Toilet transfer 03-Partial/moderate assistance G. Car transfer 88-Not attempted due to medical condition or safety concerns I. Walk 10 feet 03-Partial/moderate assistance J. Walk 50 feet with two turns 03-Partial/moderate assistance K. Walk 150 feet 88-Not attempted due to medical condition or safety concerns L. Walking 10 feet on uneven surfaces 88-Not attempted due to medical condition or safety concerns M. 1 step (curb) 88-Not attempted due to medical condition or safety concerns N. 4 steps 88-Not attempted due to medical condition or safety concerns O. 12 steps 88-Not attempted due to medical condition or safety concerns P. Picking up object 88-Not attempted due to medical condition or safety concerns R. Wheel 50 feet with two turns 88-Not attempted due to medical condition or safety concerns S. Wheel 150 feet 88-Not attempted due to medical condition or safety concerns - Bladder and Bowel Bladder continence Bowel continence - Endurance Fair - Balance Fair - Safety Awareness Fair CURRENT [facility]. 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
[2020-05-06] MEDS: NITROFURAN MACRO 100 MG CAP PO SCH (19:22)
[2020-05-06] MEDS: QUETIAPINE 25 MG TAB PO SCH (19:23)
[2020-05-06] MEDS: PRAMIPEXOLE 0.25 MG TAB PO SCH (19:24)
[2020-05-06] MEDS: MIRTAZAPINE 15 MG TAB PO SCH (19:24)
[2020-05-06] MEDS: DOCUSATE NA/SENNA CONC 1 TAB PO SCH (19:24)
[2020-05-07] MEDS: methocarbamoL 750 MG TAB PO PRN (00:19)
[2020-05-07] MEDS: OXYCODONE HCL 5 MG TAB PO PRN ×3 (05:30→19:24)
[2020-05-07] MEDS: HEPARIN 5000 UNIT/ML 1 ML VIAL SQ SCH ×2 (06:25→19:07)
[2020-05-07] MEDS: LEVOTHYROXINE SOD 0.112 MG TAB PO SCH (06:38)
[2020-05-07] MEDS: LIDOCAINE 4% PATCH TOP SCH (06:59)
[2020-05-07] MEDS: CLOTRIMAZOLE 1% CREAM 15 GM TOP SCH ×2 (07:15→19:19)
[2020-05-07] MEDS: CRANBERRY FRUIT EXTRACT 200 MG CAP PO SCH ×2 (08:34→19:19)
[2020-05-07] MEDS: PREGABALIN 150 MG CAP PO SCH ×2 (08:34→19:19)
[2020-05-07] MEDS: NITROFURAN MACRO 100 MG CAP PO SCH ×2 (08:34→19:19)
[2020-05-07] MEDS: DESVENLAFAXINE 100 MG PO SCH (08:35)
--- NOTE | 2020-05-07 09:36 | P.RH.PN ---
Estimated Length of Stay: 12 Expected Discharge Date: 05/09/20 Discharge Disposition Plan: Home Family Support: Yes Mcfp Goal: Mobility, Transfers, Self Care Vital Signs: Last Vital Signs Temp 97.1 F 05/07/20 08:59 Pulse 61 05/07/20 08:59 Resp 16 05/07/20 08:59 BP 153/59 H 05/07/20 08:59 Pulse Ox 94 05/07/20 08:59 Laboratory: Laboratory Last Values WBC 5.90 K/uL (4.3-10.9) D 05/06/20 05:57 RBC 4.09 M/uL (3.86-4.86) 05/06/20 05:57 Hgb 10.8 g/dL (12.0-15.0) L 05/06/20 05:57 Hct 33.4 % (36.0-45.0) L 05/06/20 05:57 MCV 81.7 fL (80-100) 05/06/20 05:57 MCH 26.3 pg (27.0-35.0) L 05/06/20 05:57 MCHC 32.2 g/dL (32.0-36.0) 05/06/20 05:57 RDW 17.1 % (12.1-15.2) H 05/06/20 05:57 Plt Count 191 K/uL (152-406) D 05/06/20 05:57 MPV 8.0 fL (7.6-11.3) 05/06/20 05:57 Neutrophils % 56.2 % (41.7-73.7) 05/06/20 05:57 Lymphocytes % 30.3 % (15.3-44.8) 05/06/20 05:57 Monocytes % 8.9 % (3.3-12.3) 05/06/20 05:57 Eosinophils % 3.8 % (0-4.4) 05/06/20 05:57 Basophils % 0.8 % (0-1.3) 05/06/20 05:57 Absolute Neutrophils 3.3 K/uL (1.8-8.0) 05/06/20 05:57 Absolute Lymphocytes 1.8 K/uL (0.7-4.9) 05/06/20 05:57 Absolute Monocytes 0.5 K/uL (0.1-1.3) 05/06/20 05:57 Absolute Eosinophils 0.2 K/uL (0-0.5) 05/06/20 05:57 Absolute Basophils 0.0 K/uL (0-0.5) 05/06/20 05:57 Sodium 143 mmol/L (136-145) 05/06/20 05:57 Potassium 4.2 mmol/L (3.5-5.1) 05/06/20 05:57 Chloride 107 mmol/L (98-107) 05/06/20 05:57 Carbon Dioxide 32 mmol/L (21-32) 05/06/20 05:57 BUN 9 mg/dL (7-18) 05/06/20 05:57 Creatinine 0.84 mg/dL (0.55-1.3) 05/06/20 05:57 Estimated GFR 67 mL/min (=/>90) L 05/06/20 05:57 Glucose 83 mg/dL (74-106) 05/06/20 05:57 Calcium 9.0 mg/dL (8.5-10.1) 05/06/20 05:57 Magnesium 2.2 mg/dL (1.8-2.4) 05/06/20 05:57 Albumin 3.1 g/dL (3.4-5.0) L 05/06/20 05:57 Prealbumin 15.4 mg/dL (20-40) L 05/06/20 05:57 Urine Color Yellow 05/03/20 16:20 Urine Appearance Clear 05/03/20 16:20 Urine pH 7.0 (5.0-7.0) 05/03/20 16:20 Ur Specific [place] 1.025 (1.005-1.030) 05/03/20 16:20 Glucose (UA)(Auto) Negative (NEG) 05/03/20 16:20 Urine Ketones Negative (NEG) 05/03/20 16:20 Urine Blood Negative (NEG) 05/03/20 16:20 Urine Nitrite Positive (NEG) H 05/03/20 16:20 Urine Bilirubin Negative (NEG) 05/03/20 16:20 Urine Urobilinogen 0.2 mg/dL (0.2-1.0) 05/03/20 16:20 Ur Leukocyte Esterase 2+ (NEG) H 05/03/20 16:20 Urine RBC <5 /HPF (NONE SEEN) 05/03/20 16:20 Urine WBC 20-50 /HPF (<5) H 05/03/20 16:20 Ur Squamous Epith Cells <5 /HPF (NONE SEEN) 05/03/20 16:20 Urine Bacteria 20-50 /HPF (<20) H 05/03/20 16:20 Urine Mucus 2+ /HPF (NONE SEEN) 04/28/20 15:30 Urine Yeast Few (NONE SEEN) 04/28/20 15:30 Urine Culture Reflexed Not needed 05/03/20 16:20 Urine Total Protein Negative (NEG) 05/03/20 16:20 SARS-CoV-2 RNA (RT-PCR) Negative (NEGATIVE) 04/28/20 15:20 Weight: 241 lb 8 oz Wound Present: No Closed Surgical Incision Present: No Negative Pressure Wound Therapy Present: No Physician Update: Will D/C on Sunday with [facility]. She is walking 250' with standby assistance. She is transfering without help. She started Levaquin but the bacteria was not sensitive. She was switched to Nitrofurantoin. Comment: Pain pump on left abdomen Functional Improvement: Patient has met all short-term goals at this time, and is progressing well toward long-term goals. Patient is currently SBA progressing to Independent w/ transfers and gait tx. Summary: Patient's care plan and long term care administrator goals have been reviewed and revised as necessary. Please see the Rehabilitation Signature page for all necessary signatures.
[2020-05-07] MEDS: DOCUSATE NA/SENNA CONC 1 TAB PO SCH (19:20)
[2020-05-07] MEDS: MIRTAZAPINE 15 MG TAB PO SCH (19:21)
[2020-05-07] MEDS: PRAMIPEXOLE 0.25 MG TAB PO SCH (19:21)
[2020-05-07] MEDS: QUETIAPINE 25 MG TAB PO SCH (19:21)
[2020-05-08] MEDS: methocarbamoL 750 MG TAB PO PRN (04:24)
[2020-05-08] MEDS: LEVOTHYROXINE SOD 0.112 MG TAB PO SCH (06:54)
[2020-05-08] MEDS: CLOTRIMAZOLE 1% CREAM 15 GM TOP SCH ×2 (08:00→20:23)
[2020-05-08] MEDS: HEPARIN 5000 UNIT/ML 1 ML VIAL SQ SCH ×2 (08:00→20:00)
[2020-05-08] MEDS: CRANBERRY FRUIT EXTRACT 200 MG CAP PO SCH ×2 (08:10→20:22)
[2020-05-08] MEDS: PREGABALIN 150 MG CAP PO SCH ×2 (08:10→20:22)
[2020-05-08] MEDS: NITROFURAN MACRO 100 MG CAP PO SCH ×2 (08:10→20:22)
[2020-05-08] MEDS: LIDOCAINE 4% PATCH TOP SCH (08:11)
[2020-05-08] MEDS: DESVENLAFAXINE 100 MG PO SCH (08:14)
[2020-05-08] MEDS: OXYCODONE HCL 5 MG TAB PO PRN ×3 (09:38→21:56)
[2020-05-08 14:29] VITALS: BMI 31.4
--- NOTE | 2020-05-08 16:21 | FAST ---
[employer] FORM SHIFT START DATE/TIME: 05/08/2020 07:00 (CHIEF GUARD) SHIFT END DATE/TIME: 05/08/2020 19:00 (CHIEF GUARD) NAME TIP KLINE DATE OF : 1950 DATE OF ADMISSION: 04/28/2020 15:20 (CHIEF GUARD) PHONE: AGE: 69 N# [id number] GENDER: Female ENCOUNTER PHYSICIAN: Dr. Otf Murdock M.D. 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 EATING: EATING - STEP 1: Does the patient complete the activity by him/herself with no assistance (physical, verbal/nonverbal cueing, setup/clean-up)? No. EATING - STEP 2: Does the patient need only setup/clean-up assistance from one helper? Yes. 1. [id number] ADMISSION PERFORMANCE: Setup or clean-up assistance CODE: 05 ORAL HYGIENE: ORAL HYGIENE - STEP 1: Does the patient complete the activity by him/herself with no assistance (physical, verbal/nonverbal cueing, setup/clean-up)? No. ORAL HYGIENE - STEP 2: Does the patient need only setup/clean-up assistance from one helper? Yes. 1. [id number] ADMISSION PERFORMANCE: Setup or clean-up assistance CODE: 05 TOILETING HYGIENE: TOILETING HYGIENE - STEP 1: Does the patient complete the activity by him/herself with no assistance (physical, verbal/nonverbal cueing, setup/clean-up)? No. TOILETING HYGIENE - STEP 2: Does the patient need only setup/clean-up assistance from one helper? Yes. 1. [id number] ADMISSION PERFORMANCE: Setup or clean-up assistance CODE: 05 BATHING: Not assessed/no information CODE: - DRESSING - UPPER BODY: DRESSING - UPPER BODY - STEP 1: Does the patient complete the activity by him/herself with no assistance (physical, verbal/nonverbal cueing, setup/clean-up)? No. DRESSING - UPPER BODY - STEP 2: Does the patient need only setup/clean-up assistance from one helper? Yes. 1. [id number] ADMISSION PERFORMANCE: Setup or clean-up assistance CODE: 05 DRESSING - LOWER BODY: DRESSING - LOWER BODY - STEP 1: Does the patient complete the activity by him/herself with no assistance (physical, verbal/nonverbal cueing, setup/clean-up)? No. DRESSING - LOWER BODY - STEP 2: Does the patient need only setup/clean-up assistance from one helper? Yes. 1. [id number] ADMISSION PERFORMANCE: Setup or clean-up assistance CODE: 05 PUTTING ON/TAKING OFF FOOTWEAR: FOOTWEAR - STEP 1: Does the patient complete the activity by him/herself with no assistance (physical, verbal/nonverbal cueing, setup/clean-up)? No. FOOTWEAR - STEP 2: Does the patient need only setup/clean-up assistance from one helper? Yes. 1. [id number] ADMISSION PERFORMANCE: Setup or clean-up assistance CODE: 05 ROLL LEFT AND RIGHT: ROLL LEFT AND RIGHT - STEP 1: Does the patient complete the activity by him/herself with no assistance (physical, verbal/nonverbal cueing, setup/clean-up)? No. ROLL LEFT AND RIGHT - STEP 2: Does the patient need only setup/clean-up assistance from one helper? Yes. 1. [id number] ADMISSION PERFORMANCE: Setup or clean-up assistance CODE: 05 SIT TO LYING: SIT TO LYING - STEP 1: Does the patient complete the activity by him/herself with no assistance (physical, verbal/nonverbal cueing, setup/clean-up)? No. SIT TO LYING - STEP 2: Does the patient need only setup/clean-up assistance from one helper? Yes. 1. [id number] ADMISSION PERFORMANCE: Setup or clean-up assistance CODE: 05 LYING TO SITTING: LYING TO SITTING ON SIDE OF BED - STEP 1: Does the patient complete the activity by him/herself with no assistance (physical, verbal/nonverbal cueing, setup/clean-up)? No. LYING TO SITTING ON SIDE OF BED - STEP 2: Does the patient need only setup/clean-up assistance from one helper? Yes. 1. [id number] ADMISSION PERFORMANCE: Setup or clean-up assistance CODE: 05 SIT TO STAND: SIT TO STAND - STEP 1: Does the patient complete the activity by him/herself with no assistance (physical, verbal/nonverbal cueing, setup/clean-up)? No. SIT TO STAND - STEP 2: Does the patient need only setup/clean-up assistance from one helper? Yes. 1. [id number] ADMISSION PERFORMANCE: Setup or clean-up assistance CODE: 05 TRANSFERS: BED, CHAIR: CHAIR/[id number] TRANSFER - STEP 1: Does the patient complete the activity by him/herself with no assistance (physical, verbal/nonverbal cueing, setup/clean-up)? No. CHAIR/[id number] TRANSFER - STEP 2: Does the patient need only setup/clean-up assistance from one helper? Yes. 1. [id number] ADMISSION PERFORMANCE: Setup or clean-up assistance CODE: 05 TRANSFER TOILET: TOILET TRANSFER - STEP 1: Does the patient complete the activity by him/herself with no assistance (physical, verbal/nonverbal cueing, setup/clean-up)? No. TOILET TRANSFER - STEP 2: Does the patient need only setup/clean-up assistance from one helper? Yes. 1. [id number] ADMISSION PERFORMANCE: Setup or clean-up assistance CODE: 05 TRANSFERS: CAR: Not assessed/no information CODE: - WALK 10 FEET: Not assessed/no information CODE: - 1 STEP (CURB): Not assessed/no information CODE: - PICKING UP OBJECT: Not assessed/no information CODE: - DOES THE PATIENT USE A WHEELCHAIR/SCOOTER? Q1. DOES THE PATIENT USE A WHEELCHAIR/SCOOTER?: Yes CODE: 1 WHEEL 50 FEET WITH TWO TURNS: WHEEL 50 FEET WITH TWO TURNS - STEP 1: Does the patient complete the activity by him/herself with no assistance (physical, verbal/nonverbal cueing, setup/clean-up)? No. WHEEL 50 FEET WITH TWO TURNS - STEP 2: Does the patient need only setup/clean-up assistance from one helper? Yes. 1. [id number] ADMISSION PERFORMANCE: Setup or clean-up assistance CODE: 05 INDICATE THE TYPE OF WHEELCHAIR/SCOOTER USED: RR1. INDICATE THE TYPE OF WHEELCHAIR/SCOOTER USED.: Manual CODE: 1 WHEEL 150 FEET: Not assessed/no information CODE: - INDICATE THE TYPE OF WHEELCHAIR/SCOOTER USED: SS1. INDICATE THE TYPE OF WHEELCHAIR/SCOOTER USED.: Manual CODE: 1 BLADDER AND BOWEL: H350. BLADDER CONTINENCE (3-DAY ASSESSMENT PERIOD): Always continent (no documented incontinence) CODE: 0 H400. BOWEL CONTINENCE (3-DAY ASSESSMENT PERIOD): Always continent CODE: 0 SIGNATURE PANEL: The following modified sections: 1. [id number] Admission Performance, 1. [id number] Admission Performance, 1. [id number] Admission Performance, 1. [id number] Admission Performance, 1. HL8853m Admission Performance, 1. CF0009s Admission Performance, 1. [id number] Admission Performance, 1. [id number] Admission Performance , 1. [id number] Admission Performance, 1. [id number] Admission Performance, 1. [id number] Admission Performanc e, 1. [id number] Admission Performance, Q1. Does the patient use a wheelchair/scooter?, 1. [id number] Admis zeny Performance, RR1. Indicate the type of wheelchair/scooter used., Code, SS1. Indicate the type of wheelchair/scooter used., H350. Bladder Continence (3-day assessment period), H400. Bowel Continence (3-day assessment period) were [electronically] signed by Jaqueline BurdenN.Michael on Sat May 08 2020 16 :19:57 GMT-0600 (Central Standard Time)
[2020-05-08] MEDS: QUETIAPINE 25 MG TAB PO SCH (20:22)
[2020-05-08] MEDS: MIRTAZAPINE 15 MG TAB PO SCH (20:22)
[2020-05-08] MEDS: DOCUSATE NA/SENNA CONC 1 TAB PO SCH (20:22)
[2020-05-08] MEDS: PRAMIPEXOLE 0.25 MG TAB PO SCH (20:23)
[2020-05-08] MEDS: MELATONIN 3 MG TABLET PO PRN (21:56)
[2020-05-09] MEDS: methocarbamoL 750 MG TAB PO PRN (04:35)
[2020-05-09] MEDS: LEVOTHYROXINE SOD 0.112 MG TAB PO SCH (07:30)
[2020-05-09 07:54] VITALS: BP 135/62; TEMP 98.2
[2020-05-09] MEDS: HEPARIN 5000 UNIT/ML 1 ML VIAL SQ SCH (08:00)
[2020-05-09] MEDS: CLOTRIMAZOLE 1% CREAM 15 GM TOP SCH (08:00)
[2020-05-09] MEDS: OXYCODONE HCL 5 MG TAB PO PRN (08:26)
[2020-05-09] MEDS: LIDOCAINE 4% PATCH TOP SCH (08:27)
[2020-05-09] MEDS: DESVENLAFAXINE 100 MG PO SCH (08:27)
[2020-05-09] MEDS: CRANBERRY FRUIT EXTRACT 200 MG CAP PO SCH (08:28)
[2020-05-09] MEDS: NITROFURAN MACRO 100 MG CAP PO SCH (08:28)
[2020-05-09] MEDS: PREGABALIN 150 MG CAP PO SCH (09:24)
--- NOTE | 2020-05-14 15:46 | R.DS ---
DISCHARGE SUMMARY FACILITY [facility] MR# [id number] NAME EMMA RICO ADDRESS [address] [place] [address] [address]IP [phone] PHONE DATE OF 1950 AGE 69 SSN# [id number] GENDER Female DEXTERITY Right-handed MARITAL STATUS RACE Unknown race ENCOUNTER PHYSICIAN Dr. Otf Murdock M.D. REFERRING DOCTOR DR. 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 DATE OF ADMISSION 04/28/2020 15:20 (PEDIGREE TRACER) MEDICATION ALLERGIES: CODINE MORPHINE SULFA DRUG ENVIRONMENTAL ALLERGIES: - Substance Allergies None Known - Other Allergies None Known DISCHARGE MEDICATIONS: Other- ContinueSee attached MAR (Medication Administration Record). NURSING: - Shower allowing shower - Bladder care per protocol - Skin care per protocol ACTIVITIES OOB only with supervision THERAPIES: - Orthotics/Prosthetics Orthotic Evaluation Splinting/Casting - Dietary and Nutrition Adequate Nutrition Nutritional Education Nutritional Supplements HISTORY OF PRESENT ILLNESS: Pt. is a 69 yo Right-handed female of unknown race.On 04/19/2020 she was admitted to [facility] with diagnosis SPINAL FRACTURE OF T-9 .Her impairment category is Spinal Cord Dysfunction 04 - Ot er Traumatic Spinal Cord Dysfunction (230).Pre-morbidly, Pt. was independent/mod-I in Safety Aware ness, Balance, Transfers Control, Sphincter Control, and Endurance; and she had good Locomotion.Curre ntly, she has deficits of Endurance, Sphincter Control, Transfers Control, Balance, and Locomotion.Pt . is now referred to [facility] for acute in-patient rehabilitation in order t o maximize patient's functional independence in activities of daily living, strength, ROM, and mobili ty.- Rehab Goal Patient has realistic goal of being discharged at assistance level 7-Ind to reside at Home with Fami ly/Relatives. Emma Rico is a 69 -year- old female that lives at home independently with her and family. She lives in a 2 story home. The down stairs of the [facility] is where her and her live. She fell down and struck her head and buttocks so she went [facility] and she was found to have a spinal fx of the T-9. Has has a history of discitis of her lumbar region L4-L5, chronic pain, and chronic spine problems. She has been transferred to [place] to the swing bed program and has been doing very well. She will has work to get stronger to be able to go home and take care of her self. The patient would most definitely benefit from acute inpatient rehab and has become severely debilitated and unable to live at her prior level of activity at home getting her stronger to be back living at home independently is our goal. It is reasonable and necessary for the patient to come to acute inpatient rehab for approximately 7-10 days in order to return to her prior level of care. She is now being transferred to [facility] Inpatient rehabilitation and is medically stable with relatively stable labs. She is now medically stable but in need of 24 hour nursing, doctor supervision and The patient is reasonably expected to participate in 3 hours of therapy a day/15 hours per week and receive care with intensive interdisciplinary approach. COVID-19 screening performed; spoke with patient via phone. Patient denies new onset of fever, cough, difficulty breathing, sore throat, body aches and non-allergy nasal congestion in the past 24 hours. Patient denies travel outside of [place] in the past 14 days. Patient denies any contact with someone who has a confirmed diagnosis of or is under investigation for COVID-19 in the past 14 days. Patient has been tested negative for COVID- 19.HOSPITAL COURSE: DIET - LIQUID TEXTURE: On 04/28/2020 Pt was upgraded to Regular Diet - Liquid Texture. DIET - SOLID TEXTURE: On 04/28/2020 Pt was upgraded to Regular Diet - Solid Texture. DIET TYPE: On 04/28/2020 Pt was upgraded to Regular Diet Type. TUBE FEED: On 04/28/2020 Pt was changed to N/A Tube Feed. DISCHARGE PHYSICAL EXAM - Gen Alert and awake Lying in bed No apparent distress Oriented to: person, time, and place - Skin No skin breakdown. Normacephalic - Eyes No abnormalities - ENMT No abnormalities - Neck No abnormalities No cervical adenopathy - CVS RRR - Chest No abnormalities - Resp Clear to auscultation - Abd Soft - GI Non distended Deferred - No abnormalities - Ext No significant edema - MSK 4+/5 weakness in both lower extremities. - Neuro No focal deficits - Psych No abnormalities FUNCTIONAL STATUS: - Self-Care A. Eating 6-Hong B. Grooming 6-Hong C. Bathing 6-Hong D. Dressing - Upper 6-Hong E. Dressing - Lower 6-Hong F. Toileting 6-Hong - Sphincter Control G. Bladder control 6-Hong H. Bowel control 6-Hong - Transfers Control I. Bed/Chair/Wheelchair 6-Hong J. Toilet 6-Hong K. Tub/Shower 6-Hong - Locomotion L. Walk/Wheelchair (B) 6-Hong M. Stairs 5-sup - Communication N. Comprehension (B) 6-Hong O. Expression (B) 6-Hong - Social Cognition P. Social Interaction 6-Hong Q. Problem Solving 6-Hong R. Memory 6-Hong - Endurance Good - Balance Good - Safety Awareness Good QI SCORES: - Self-Care A. Eating 03-Partial/moderate assistance B. Oral hygiene 03-Partial/moderate assistance C. Toileting hygiene 03-Partial/moderate assistance E. Shower/bathe self 03-Partial/moderate assistance F. Upper body dressing 03-Partial/moderate assistance G. Lower body dressing 88-Not attempted due to medical condition or safety concerns H. Putting on/taking off footwear 88-Not attempted due to medical condition or safety concerns - Mobility A. Roll left and right 04-Supervision or touching assistance B. Sit to lying 04-Supervision or touching assistance C. Lying to sitting on side of bed 03-Partial/moderate assistance D. Sit to stand 03-Partial/moderate assistance E. Chair/kql-[id number] transfer 03-Partial/moderate assistance F. Toilet transfer 03-Partial/moderate assistance G. Car transfer 88-Not attempted due to medical condition or safety concerns I. Walk 10 feet 03-Partial/moderate assistance J. Walk 50 feet with two turns 03-Partial/moderate assistance K. Walk 150 feet 88-Not attempted due to medical condition or safety concerns L. Walking 10 feet on uneven surfaces 88-Not attempted due to medical condition or safety concerns M. 1 step (curb) 88-Not attempted due to medical condition or safety concerns N. 4 steps 88-Not attempted due to medical condition or safety concerns O. 12 steps 88-Not attempted due to medical condition or safety concerns P. Picking up object 88-Not attempted due to medical condition or safety concerns R. Wheel 50 feet with two turns 88-Not attempted due to medical condition or safety concerns S. Wheel 150 feet 88-Not attempted due to medical condition or safety concerns - Bladder and Bowel Bladder continence Bowel continence - Endurance Fair - Balance Fair - Safety Awareness Fair DISCHARGE INSTRUCTIONS: - N/A Heparin 5000 units twice daily. DISCHARGE PLAN, FOLLOW UP CARE PROVISIONS: - Estimated Length of Stay (days) 27. - Consensus on plan Discharge plan has been discussed with primary caregiver. Patient/Family is in agreement with the maryuri n. Primary caregiver is in agreement with the plan. - Patient/Family Goals Return home independently. - Planned Living Setting Upon Discharge Home, to live with Family/Relatives. Transitional Living. SIGNATURE PANEL: (PEDIGREE TRACER)
== END 2020-05-09 09:45 | disposition home health service (06) | DRG 561 ==
LOC: 5TH 15:14
PROVIDERS: ADMIT Psychiatry & Neurology Neurology with Special Qualifications in Child Neurology; ATTEND Psychiatry & Neurology Neurology with Special Qualifications in Child Neurology
DX: S22.079D Unspecified fracture of T9-T10 vertebra, subsequent encounter for fracture with routine healing (principal); Z88.5 Allergy status to narcotic agent; Z88.1 Allergy status to other antibiotic agents; Z20.822 Contact with and (suspected) exposure to COVID-19
CPT/HCPCS: 36415; 80048; 81001; 81003; 81015; 82040; 83735; 84134; 85025; 87077; 87086; 87088; 87186; 97110; 97112; 97116; 97161; 97530; 97542; J1644; U0002; U0003

== ENCOUNTER 2020-12-11 07:06 | Inpatient (IN) | payer OTHER ==
--- OUTSIDE RECORDS SUMMARY | 2020-12-11 07:18 | XMS REPORT | Continuity of Care Document ---
:1950 Author Organization [facility] t Address [address] [place] [address] Care Team Providers Name Role Phone Maty Kim Primary Care Physician CULLEN Attending Clinician Unavailable BENNIE Attending Clinician Unavailable Saskia SULLIVAN Attending Clinician Unavailable BENNIE Admitting Clinician Unavailable Saskia SULLIVAN Admitting Clinician Unavailable Payers Payer Name Policy Type Policy Number Effective Date Expiration Date S ource MEDICARE PART A [id number] 2015 AND B 00:00:00 Problems Condition Condition Condition Status Onset Resolution Last Treating Co mments Source Name Details Category Date Date Treatment Clinician Date Chronic Chronic Disease Active [facility] pain [facility]04 [facility] 00 [facility] Wound, Wound, Disease Active [facility] surgical, surgical, 5-15 [facility] - infected infected 00:00: Medica l 00 Hasty Pre-op Pre-op Disease Active [facility] testing testing 5-15 [facility] 00 [facility]asty Essential Essential Disease Active [facility] hypertensi hypertensi 3-12 Ileana kes - on on 00:00: Medical 00 Hasty Hypothyroi Hypothyroi Disease Active [facility] dism dism 3-12 [facility] - 00[facility] 00 [facility] Depression Depression Disease Active [facility] with with 3-12 [facility] - anxiety anxiety 00:00: Medical 00 [facility] Obesity Obesity Disease Active [facility] 3-12 [facility] 00 [facility] Pain Pain Disease Active [facility] 3-12 [facility] 00 [facility] Chronic Chronic Disease Active [facility] pain pain 2-16 [facility] - disorder disorder 00:00: Medica l 00 Center HEADACHE Condition Active 2013-12-05 M emoria 10-08 06:16:00 l HEADACHE 00:00: [place] n 00 Active 10/08/2013 Condition 4 [facility] CONSTIPATI Condition Active 2013-12-05 Memoria ON 10-08 06:16:00 l 00:00: [place] CONSTIPATI 00 ON Active 4 Condition 12/05/2013 Medical Group HEMORRHOID Condition Active 2013-12-05 Memoria S 10-08 06:16:00 l 00:00: [place] HEMORRHOID 00 S Active 10/08/2013 Condition 4 [facility] Group BUNDLE Condition Active 2013-12-05 Mem oria BRANCH 06-05 06:16:00 l BLOCK, BUNDLE 00:00: [place] LEFT BRANCH 00 ANTERIOR BLOCK, FASCICULAR LEFT BLOCK ANTERIOR FASCICULAR BLOCK Active 06/05/2013 Condition 4 [facility] DIABETES Condition Active 2013-12-05 M emoria MELLITUS, 2- 06:16:00 l TYPE II, DIABETES 00:00: Herm ila UNCONTROLL MELLITUS, 00 ED TYPE II, UNCONTROLL ED Active 4 Condition 12/05/2013 Medical Group LOW HDL Condition Active 2013-12-05 Oh moria 2- 06:16:00 l LOW HDL 00:00: [place] 00 Active 05/23/2013 Condition 4 [facility] Group MIK Condition Active 2013-12-05 Mem oria POSITIVE 2- 06:16:00 l MIK 00:00: [place] POSITIVE 00 Active 05/23/2013 Condition 4 [facility] HIGH RISK Condition Active 2013-12-05 Memoria MEDICATION 05-05 06:16:00 l HIGH 00:00: [place] RISK 00 MEDICATION Active 05/05/2013 Condition 4 [facility] Group OBESITY Condition Active 2013-12-05 Oh moria 1- 06:16:00 l OBESITY 00:00: [place] 00 Active 05/05/2013 Condition 4 [facility] Group PELVIC Condition Active 2012-042013-12-05 Mem oria PAIN 0-22 06:16:00 l PELVIC 00:00: [place] PAIN 00 Active 01/28/2013 Condition 4 [facility] Group HIP PAIN, Condition Active 2012-042013-12-05 Memoria RIGHT 0- 06:16:00 l HIP 00:00: [place] PAIN, 00 RIGHT Active 01/28/2013 Condition 4 [facility] Group VITAMIN Condition Active 2013-12-05 Me moria B12 - 06:16:00 l DEFICIENCY VITAMIN 00:00: Her mcguire [...] Active 2013-12-05 Memoria 1-16 06:16:00 l 00:00: [place] DERMATITIS 00 Active 04/24/2012 Condition 4 [facility] Group VITAMIN D Condition Active 2013-12-05 Memoria DEFICIENCY 09-04 06:16:00 l VITAMIN 00:00: [place] D 00 DEFICIENCY Active 09/05/2011 Condition 4 Medical Group KNEE PAIN Condition Active 2010-042013-12-05 Memoria 0-20 06:16:00 l KNEE 00:00: [place] PAIN 00 Active 01/26/2011 Condition 4 Medical Group FLANK Condition Active 2013-12-05 Mem oria PAIN, - 06:16:00 l RIGHT FLANK 00:00: [place] PAIN, 00 RIGHT Active 12/15/2010 Condition 4 [facility] Group UTI Condition Active 2013-12-05 Mem oria 12-01 06:16:00 l UTI 00:00: [place] 00 Active 12/01/2010 Condition 4 [facility] Group SLEEP Condition Active 2013-12-05 Mem oria APNEA 6-16 06:16:00 l SLEEP 00:00: [place] APNEA 00 Active 09/22/2010 Condition 4 Medical [...] TINEA Condition Active 2013-12-05 Mem oria CORPORIS 3-21 06:16:00 l TINEA 00:00: [place] CORPORIS 00 Active 06/27/2010 Condition 4 Medical Group FEVER, HX Condition Active 2013-12-05 Memoria OF 3-15 06:16:00 l FEVER, 00:00: [place] HX OF 00 Active 06/21/2010 Condition 4 Medical Group SYNCOPE Condition Active 2013-12-05 Me moria 3-15 06:16:00 l SYNCOPE 00:00: [place] 00 Active 06/21/2010 Condition 4 [facility] Group HIP Condition Active 2013-12-05 Mem oria REPLACEMEN 3-10 06:16:00 l T, RIGHT, HIP 00:00: [place] HX OF REPLACEMEN 00 T, RIGHT, HX OF Active 06/16/2010 Condition 4 [facility] Group DEGENERATI Condition Active 2013-12-05 Memoria VE JOINT - 06:16:00 l DISEASE, 00:00: [place] LEFT HIP DEGENERATI 00 VE JOINT DISEASE, LEFT HIP Active 06/02/2010 Condition 4 [facility] Group PRE-OP Condition Active 2013-12-05 Mem oria EXAM 2-15 06:16:00 l PRE-OP 00:00: [place] EXAM 00 Active 05/24/2010 Condition 4 Medical [...] oria CYST, 06:16:00 l RIGHT RENAL 00:00: [place] CYST, 00 RIGHT Active 04/06/2010 Condition 4 Medical Group ACQUIRED Condition Active 2009-042013-12-05 M emoria CYST OF 05-17 06:16:00 l KIDNEY ACQUIRED 00:00: Bl[place] n CYST OF 00 KIDNEY Active 03/16/2010 Condition 4 Medical Group LOW BACK Condition Active 2009-042013-12-05 M emoria PAIN 2- 06:16:00 l LOW BACK 00:00: [place] n PAIN 00 Active 03/14/2010 Condition 4 Medical Group HIP PAIN, Condition Active 2009-042013-12-05 Memoria LEFT 2-06 06:16:00 l HIP 00:00: [place] PAIN, LEFT 00 Active 03/14/2010 Condition 4 Medical Group LUMBAR Condition Active 2009-042013-12-05 Mem oria RADICULOPA 2- 06:16:00 l THY LUMBAR 00:00: [place] RADICULOPA 00 THY Active 03/14/2010 Condition 4 Medical Group UNSPECIFIE Condition Active 2009-042013-12-05 Memoria D VITAMIN 0-20 06:16:00 l D 00:00: [place] DEFICIENCY UNSPECIFIE 00 D VITAMIN D DEFICIENCY Active 01/26/2010 Condition 4 [facility] Group Depression Problem Active 2015-11-02 M emoria with 03:35:47 l anxiety [place] Depression with anxiety Active Problem 11/02/2015 eCW: Gaurav Fraser Morbid Problem Active 2015-11-02 Memor ia Obesity 03:35:47 l Morbid [place] Obesity Active Problem 11/02/2015 eCW: Gaurav Fraser Hyperlipid Problem Active 2015-11-02 M emoria emia 03:35:47 l [place] Hyperlipid emia Active Problem 11/02/2015 eCW: Gaurav Fraser Osteoarthr Problem Active 2015-11-02 M emoria itis 03:35:47 l generalize [place] n d Osteoarthr itis generalize d Active Problem 11/02/2015 eCW: Gaurav Fraser Hypothyroi Problem Active 2015-11-02 M emoria dism 03:35:47 l (acquired) [place] n Hypothyroi dism (acquired) Active Problem 11/02/2015 eCW: Gaurav Fraser Osteoporos Problem Active 2015-11-02 M emoria is 03:35:47 l [place] Osteoporos is Active Problem 6 eCW: Gaurav Fraser Bipolar Problem Active 2015-11-02 Inder homar affective 03:35:47 l disorder, Bipolar Herm ila depressed affective disorder, depressed Active Problem 11/02/2015 eCW: Gaurav Fraser Low Back Problem Active 2015-11-02 Mem oria Pain 03:35:47 l Low Back [place] n Pain Active Problem 11/02/2015 eCW: Gaurav Fraser Fibromyalg Problem Active 2015-11-02 M emoria ia 03:35:47 l [place] Fibromyalg ia Active Problem 6 eCW: Gaurav LebronBria Routine Diagnosis Active 2014-01-08 Me moria medical 02:02:51 l exam Routine [place] medical exam Active Diagnosis 01/08/2014 eCW: Gaurav LebronBria Screen Diagnosis Active 2014-03-18 Mem oria Mammogram 03:04:03 l NEC Screen [place] Mammogram NEC Active Diagnosis 03/18/2014 eCW: Gaurav Smithta Vitamin D Problem Active 2015-11-02 Me moria Deficiency 03:35:47 l Vitamin [place] D Deficiency Active Problem 11/02/2015 eCW: Gaurav LebronBria Pre-op Diagnosis Active 2015-05-21 Mem oria examinatio 04:05:13 l n Pre-op [place] examinatio n Active Diagnosis 05/21/2015 eCW: Gaurav Fraser Restless Problem Active 2016-05-18 Mem oria legs 03:03:33 l syndrome Restless Herm ila legs syndrome Active Problem 05/18/2016 eCW: Gaurav Fraser Depression Problem Active 2016-05-18 M emoria with 03:03:33 l anxiety [place] Depression with anxiety Active Problem 05/18/2016 eCW: Gaurav Fraser Spinal Problem Active 2016-05-18 Memor ia stenosis 03:03:33 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[place] 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 Active Problem 05/18/2016 eCW: Gaurav Fraser Vitamin D Problem Active 2016-05-18 Me moria deficiency 03:03:33 l Vitamin [place] D deficiency Active Problem 05/18/2016 eCW: Gaurav LebronBria Dorsalgia, Problem Active 2016-05-18 M emoria unspecifie 03:03:33 l d [place] Dorsalgia, unspecifie d Active Problem 05/18/2016 eCW: Gaurav LebronBria Osteoporos Problem Active 2016-05-18 M emoria is 03:03:33 l [place] Osteoporos is Active Problem 7 eCW: Gaurav LebronBria Hypothyroi Problem Active 2016-05-18 M emoria dism, 03:03:33 l unspecifie [place] d Hypothyroi dism, unspecifie d Active Problem 05/18/2016 eCW: Gaurav LebronBria Fibromyalg Problem Active 2016-05-18 M emoria ia 03:03:33 l [place] Fibromyalg ia Active Problem 7 eCW: Gaurav LebronBria Hyperlipid Problem Active 2016-05-18 M emoria emia, 03:03:33 l unspecifie [place] d Hyperlipid emia, unspecifie d Active Problem 05/18/2016 eCW: Gaurav Fraser Generalize Problem Active 2016-05-18 M emoria d OA 03:03:33 l [place] Generalize d OA Active Problem 05/18/2016 eCW: Gaurav Bria Cacosmia Diagnosis Active 2014-11-21 M emoria 02:25:30 l Cacosmia [place] n Active Diagnosis 11/21/2014 eCW: Gaurav Fraser Memory Diagnosis Active 2015-05-21 Mem oria deficits 03:39:44 l Memory [place] deficits Active Diagnosis 05/21/2015 eCW: Gaurav Fraser Conjunctiv Diagnosis Active 2015-05-21 Memoria itis 04:11:35 l [place] Conjunctiv itis Active Diagnosis 05/21/2015 eCW: Gaurav Fraser Pre-op Diagnosis Active 2015-02-24 Mem oria evaluation 03:03:42 l Pre-op [place] evaluation Active Diagnosis 02/24/2015 eCW: Gaurav Fraser Hypertensi Problem Active 2016-05-18 M emoria on 03:03:33 l [place] Hypertensi on Active Problem 7 eCW: Gaurav Fraser Obesity Problem Active 2016-05-18 Inder homar 03:03:33 l Obesity [place] Active Problem 05/18/2016 eCW: Gaurav Fraser Conjunctiv Diagnosis Active 2015-11-02 Memoria itis 03:35:47 l [place] Conjunctiv itis Active Diagnosis 11/02/2015 eCW: Gaurav Fraser DEPRESSION Condition Active 2013-12-05 Memoria 06:16:00 l [place] DEPRESSION Active Condition 12/05/2013 Medical Group HYPERCHOLE Condition Active 2013-12-05 Memoria STEROLEMIA 06:16:00 l [place] HYPERCHOLE STEROLEMIA Active Condition 12/05/2013 Medical Group HYPERTENSI Condition Active 2013-12-05 Memoria ON - 06:16:00 l BENIGN [place] ESSENTIAL HYPERTENSI ON - BENIGN ESSENTIAL Active Condition 12/05/2013 Medical Group HYPOTHYROI Condition Active 2013-12-05 Memoria DISM 06:16:00 l [place] HYPOTHYROI DISM Active Condition 12/05/2013 Medical Group GERD Condition Active 2013-12-05 Mem oria 06:16:00 l GERD [place] Active Condition 12/05/2013 Medical Group History of Past Illness Condition Condition Condition Status Onset Resolution Last Treating Co mments Source Name Details Category Date Date Treatment Clinician Date Diagnosis 2018-10-22 2018-10-22 Memoria UNSPECIFIE 6-25 15:01:34 15:01:34 l D 9. 00:00: [place] OSTEOARTHR UNSPECIFIE 00 ITIS, D UNSPECIFIE OSTEOARTHR D SITE ITIS, UNSPECIFIE D SITE 10/01/[address] [place] [address] Z95.810 Diagnosis 2019-2018-10-22 2018-10-22 Memoria PRESENCE 10-01 15:01:34 15:01:34 l OF Z95.810 00:00: [place] AUTOMATIC PRESENCE 00 (IMPLANTAB OF LE) AUTOMATIC CARDIAC (IMPLANTAB DEFIBRILLA LE) TOR CARDIAC DEFIBRILLA TOR 10/01/2018 Diagnosis 9 [place] E78.5 Diagnosis 2018-2018-10-22 2018-10-22 Memoria HYPERLIPID 10-01 15:01:34 15:01:34 l ÁLVAROIA, E78.5 00:00: [place] UNSPECIFIE HYPERLIPID 00 D EMIA, UNSPECIFIE D 10/01/2018 Diagnosis 9 [place] K21.9 Diagnosis 2018-2018-10-22 2018-10-22 Memoria GASTRO-ESO 10-01 15:01:34 15:01:34 l PHAGEAL K21.9 00:00: [place] REFLUX GASTRO-ESO 00 DISEASE PHAGEAL WITHOUT REFLUX ESOPHAGITI DISEASE S WITHOUT ESOPHAGITI S 10/01/2018 Diagnosis 9 [place] R52 PAIN, Diagnosis 2018-2018-10-22 2018-10-22 Memoria UNSPECIFIE 10-01 15:01:34 15:01:34 l D R52 00:00: [place] PAIN, 00 UNSPECIFIE D 10/01/2018 Diagnosis 9 [place] R53.1 Diagnosis 2018-2018-10-22 2018-10-22 Memoria WEAKNESS 10-01 15:01:34 15:01:34 l R53.1 00:00: [place] WEAKNESS 00 9 Diagnosis 10/22/2018 [place] L30.9 Diagnosis 2018-2018-10-22 2018-10-22 Memoria DERMATITIS 10-01 15:01:34 15:01:34 l , L30.9 00:00: [place] UNSPECIFIE DERMATITIS 00 D , UNSPECIFIE D 10/01/2018 Diagnosis 9 [place] W19.XXXA Diagnosis 2018-2018-10-22 2018-10-22 Memoria UNSPECIFIE 10-01 15:01:34 15:01:34 l D FALL, W19.XXXA 00:00: Linda nn INITIAL UNSPECIFIE 00 ENCOUNTER D FALL, INITIAL ENCOUNTER 10/01/2018 Diagnosis 9 [place] E66.9 Diagnosis 2018-2018-10-22 2018-10-22 Memoria OBESITY, - 15:01:34 15:01:34 l UNSPECIFIE E66.9 00:00: Linda nn D OBESITY, 00 UNSPECIFIE D 10/01/2018 Diagnosis 9 [place] M43.26 Diagnosis 2018-2018-10-22 2018-10-22 Memoria FUSION OF 10-01 15:01:34 15:01:34 l SPINE, M43.26 00:00: [place] LUMBAR FUSION OF 00 REGION SPINE, LUMBAR REGION 10/01/2018 Diagnosis 9 [place] F32.9 Diagnosis 2017-2018-10-22 2018-10-22 Memoria MAJOR 07-03 15:01:34 15:01:34 l DEPRESSIVE 2.9 00:00: Linda nn DISORDER, MAJOR 00 SINGLE DEPRESSIVE EPISODE, DISORDER, UNSPECIFIE SINGLE D EPISODE, UNSPECIFIE D 07/03/2017 Diagnosis 9 [place] R25.1 Diagnosis 2017-2018-10-22 2018-10-22 Memoria TREMOR, 07-03 15:01:34 15:01:34 l UNSPECIFIE R25.1 00:00: Linda nn D TREMOR, 00 UNSPECIFIE D 07/03/2017 Diagnosis 9 [place] Z98.890 Diagnosis 2017-2018-10-22 2018-10-22 Memoria OTHER 07-03 15:01:34 15:01:34 l [facility] 00:[facility]: Herm ila POSTPROCED OTHER 00 URAL SPECIFIED STATES POSTPROCED URAL STATES 07/03/2017 Diagnosis 9 [place] M54.5 LOW Diagnosis 2017-2018-10-22 2018-10-22 Memoria BACK PAIN 3- 15:01:34 15:01:34 l M54.5 00:00: [place] LOW BACK 00 PAIN 07/03/2017 Diagnosis 9 [place] I10 Diagnosis 2017-2018-10-22 2018-10-22 Memoria ESSENTIAL 3- 15:01:34 15:01:34 l (PRIMARY) I10 00:00: [place] HYPERTENSI ESSENTIAL 00 ON (PRIMARY) HYPERTENSI ON 07/03/2017 Diagnosis 9 [place] Z96.9 Diagnosis 2017-2018-10-22 2018-10-22 Memoria PRESENCE 07-03 15:01:34 15:01:34 l OF Z96.9 00:00: [place] FUNCTIONAL PRESENCE 00 IMPLANT, OF UNSPECIFIE FUNCTIONAL D IMPLANT, UNSPECIFIE D 07/03/2017 Diagnosis 9 [place] Chronic Diagnosis 2017-2018-10-22 2018-10-22 Memoria pain 07-03 15:01:34 15:01:34 l syndrome Chronic 00:00: Linda nn (disorder) pain 00 syndrome (disorder) 07/03/2017 Diagnosis 9 [place] Z97.8 Diagnosis 2018-10-22 2018-10-22 Memoria PRESENCE 07-03 15:01:34 15:01:34 l OF OTHER [facility].8 00:00: [place] SPECIFIED PRESENCE 00 DEVICES OF OTHER SPECIFIED DEVICES 07/03/2017 Diagnosis 9 [place] M79.7 Diagnosis 2017-2018-10-22 2018-10-22 Memoria FIBROMYALG 07-03 15:01:34 15:01:34 l IA 79.7 00:00: [place] FIBROMYALG 00 IA 07/03/2017 Diagnosis 9 [place] E03.9 Diagnosis 2018-10-22 2018-10-22 Memoria HYPOTHYROI 07-03 15:01:34 15:01:34 l DISM, E03.9 00:00: [place] UNSPECIFIE HYPOTHYROI 00 D DISM, UNSPECIFIE D 07/03/2017 Diagnosis 9 [place] Z90.710 Diagnosis 2017-2018-10-22 2018-10-22 Memoria ACQUIRED 07-03 15:01:34 15:01:34 l ABSENCE OF Z90.710 00:00: Her mcguire BOTH ACQUIRED 00 CERVIX AND ABSENCE OF UTERUS BOTH CERVIX AND UTERUS 07/03/2017 Diagnosis 9 [place] F41.9 Diagnosis 2017-2018-10-22 2018-10-22 Memoria ANXIETY 07-03 15:01:34 15:01:34 l DISORDER, F41.9 00:00: [place] n UNSPECIFIE ANXIETY 00 D DISORDER, UNSPECIFIE D 07/03/2017 Diagnosis 9 [facility]96.643 Diagnosis 2018-0 2018-10-22 2018-10-22 Memoria PRESENCE 3-27 15:01:34 15:01:34 l OF Z96.643 00:00: [place] ARTIFICIAL PRESENCE 00 HIP JOINT, OF BILATERAL ARTIFICIAL HIP JOINT, BILATERAL 07/03/2017 Diagnosis 9 [place] Allergies, Adverse Reactions, Alerts Allergy Allergy Status Severity Reaction(s) Onset Inactive Treating Comm ents Source Name Type Date Date Clinician acetamin acetamin Active Memori a ophen-co ophen-co 6-25 l deine deine 00:00: Morphine Morphine Active Memori a 6-25 l 00:00: Codeine Codeine Active Memoria 3-27 l 00:00: Sulfa Sulfa Active Memoria Drugs Drugs 3-27 l 00:00: Codeine Propensi Active Nausea And 2017-[address] [facility] ty to Vomiting 2-06 [facility] - adverse 00:00: Medical reaction 00 Center s Sulfa Propensi Active Hives [facility] (Sulfona ty to 2-06 [facility] - mide adverse 00:00: Medical Antibiot reaction 00 Center ics) s Sulfa Sulfa Active hives Memoria 9-26 l 00:00: CODEINE CODEINE Active 2009-04 Memoria 0-20 l 00:00: SULFA SULFA Active 2009-04 Memoria 0-20 l 00:00: Social History Social Habit Start Date Stop Date Quantity Comments Source Sex Assigned At [facility] Tobacco use and 2017-12-11 2017-12-11 Never used [facility] - exposure 00:00:00 00:00:00 [facility] Alcohol intake 2017-12-11 2017-12-11 Current [facility] es - 00:00:00 00:00:00 non-drinker of Medical Ce nter alcohol (finding) Language: 2016-01-03 2016-01-03 [facility] nn 00:00:00 00:00:00 Smoking Status Start Date Stop Date Source Social History [facility] Never smoker [facility] Medications Ordered Filled Start Stop Current Ordering Indication Dosage Frequency Signature Comments Components Source Medication Medication Date Date Medication? Clinician (SIG) Name Name oxyCODONE Yes Give 1 Memori a HCl Tablet 7-01 tablet by l 10 MG 01:00: mouth [place] 00 three times a day for pain QUEtiapine Yes GIVE 1 Memor ia Fumarate 6-27 TABLET BY l Tablet 50 00:00: MOUTH AT Herm ila MG 00 BEDTIME Mirapex Yes GIVE 1 Memoria Tablet 0.5 6-27 TABLET BY l MG 00:00: MOUTH AT [place] 00 BEDTIME Lyrica Yes Give 1 Memoria Capsule 200 6-26 capsule by l MG 20:00: mouth [place] 00 three times a day related to FIBROMYALG IA (M79.7) oxyCODONE Yes Give 1 Memori a HCl Tablet 6-26 tablet by l 10 MG 12:00: mouth [place] 00 three times a day for pain for 7 Days Centrum Yes Give 1 Memoria Adults 6-26 tablet by l Tablet 12:00: mouth one Blaise n 00 time a day for Dietary Supplement Forteo Yes Inject 20 Memori a Solution 6-26 mcg l 12:00: subcutaneo [place] 00 usly one time a day related to UNSPECIFIE D OSTEOARTHR ITIS, UNSPECIFIE D SITE (M19.90) Cholestyram Yes GIVE 1 Inder homar ine Light 6-26 PACKET BY l Packet 4 GM 12:00: MOUTH ONE H ermann 00 TIME A DAY MIX IN 8OZ LIQUID Lotrisone Yes APPLY TO Inder homar Cream 6-26 AFFECTED l 1-0.05 % 12:00: AREA [place] 00 TOPICALLY TWO TIMES A DAY BOTH GROIN FOR REDNESS Cyanocobala Yes Give 1 Inder homar min Tablet 6-26 tablet l 1000 MCG [...] for supplement ation Vitamin D2 Yes GIVE [id number] M emoria Tablet 6-26 UNIT BY l 12:00: MOUTH ONE [place] 00 TIME A DAY EVERY WED GlycoLax Yes Give 17 Memori a Powder 6-26 gram by l 12:00: mouth one [place] 00 time a day every other day for constipati on (in Liquid) Losartan Yes GIVE 1 Memoria Potassium 6-26 TABLET BY l Tablet 100 12:00: MOUTH ONE He rmann MG 00 TIME A DAY HOLD FOR SBP<110, P<60 Furosemide Yes GIVE 1 Memor ia Tablet 20 6-26 TABLET BY l MG 12:00: MOUTH ONE [place] 00 TIME A DAY Pristiq Yes Give [...] 00 every 12 hours for constipati on diphenhydrA Yes 25mg Take [address] [facility] MINE 9-06 by mouth [facility] - (ZZZQUIL) 16:19: every Medical 25 mg 24 night as Center capsule needed (sleep). MENTHOL 2018-0 Yes 1{patch Q.5D Apply [address] [facility] (ICY HOT 12-13 } patch [facility] - PATCH TOP) 16:19: topically Me dical 24 2 (two) Center times daily. gabapentin 2018-0 Yes 300mg [id number] Take [address] (NEURONTIN) 12-13 [id number] mg by L ukes - 300 MG [...] Take [address] (LASIX) 20 12-13 n by mouth [facility] - MG tablet 16:19: daily. Medica l 24 Center levothyroxi 2018-0 Yes 112ug Take [address] ne 12-13 mcg by [facility] - (SYNTHROID, 16:19: mouth Medic al LEVOTHROID) 24 Every Center 112 MCG morning on tablet an empty stomach. pregabalin 2018-0 Yes 225mg Q.5D Take [address] (LYRICA) 12-13 mg by [facility] - 225 MG 16:19: mouth 2 Medical capsule 24 (two) Center times daily. clotrimazol 2018-0 Yes Q.5D Apply [facility] e-betametha 12-13 topically Jael es - sone 16:19: 2 (two) Medical (LOTRISONE) 24 times Center 1-0.05 % daily. cream cholecalcif 2018-0 Yes [id number] Q7D Take [facility] brady, 12-13 50,000 [facility] - vitamin D3, 16:19: Units by Me dical (DECARA) 24 mouth once Cente r 50,000 unit a week. capsule desvenlafax 2018-0 Yes 50mg QD Take [address] [facility] ine 06 by mouth [facility] - succinate 16:19: daily. [...] night as Center needed for Sleep. lidocaine Yes 1{patch Q24H Place [address] (LIDODERM) 9- } patch onto Jael es - 5 % patch 16:19: the skin Medi jose luis 24 daily Center Remove & Discard patch within 12 hours or as directed by . pramipexole Yes .5mg QD Take 0.[address] (MIRAPEX) 9-06 mg by [facility]ukes - 0.5 MG 16:19: mouth Medical tablet 24 nightly. Center docusate Yes 100mg Q.5D Take [address] sodium 9-06 mg by [facility]ukes - (COLACE) 16:19: mouth 2 Medica l 100 MG 24 (two) Center capsule times daily. oxymetazoli Yes 2{spray [address] [facility] ne (AFRIN) 12-13 } by Nasal [facility] - 0.05 % 16:19: route 2 Medical nasal spray 24 (two) Center times daily as needed for Congestion . Temazepam Yes Give 1 Memori a Capsule 15 4-14 capsule by l MG 05:00: mouth [place] 00 every 24 hours as needed for insomnia Ibuprofen Yes GIVE 1 Memori a Tablet 400 4-12 TABLET BY l MG 20:00: MOUTH [place] 00 THREE TIMES A DAY FOR 7 DAYS OxyCODONE Yes Give 1 Memori a HCl Tablet 4-07 tablet by l 15 MG 16:15: mouth [place] 00 every 6 hours as needed for [...] 4-05 tablet by l MG 23:53: mouth [place] 00 every 24 hours as needed for sleep until 07/16/2017 23:59 Temazepam Yes Give 1 Memori a Capsule 15 4-05 capsule by l MG 20:45: mouth [place] 00 every 24 hours as needed for Insomnia Bisacodyl Yes Give 2 Memori a EC Tablet 4-04 tablet by l Delayed 15:00: mouth [place] Release 5 00 every 24 MG hours as needed for constipati on Acetaminoph Yes Give 2 Inder homar en Tablet 4-02 tablet by l 325 MG 20:45: mouth [place] 00 every 6 hours as needed for pain and fever greater than 100.4 Decara Yes Give [id number] Memor ia Capsule 3-29 [place] [id number] UNIT 12:00: mouth one He rmann 00 time a day every Hannah for Vitamin Supplement Lidoderm Yes APPLY TO Memor ia Patch 5 % 3-28 RIGHT l 12:00: THIGH [place] 00 TOPICALLY ONE TIME A DAY APPLY [...] a Patch 3-28 affected l 12:00: area [place] 00 topically two times a day for [...] 3-28 tablet by l MG 05:00: mouth [place] 00 every 24 hours as needed for sleep for 14 Days Mirtazapine Yes GIVE 1 Inder homar Tablet 30 3-28 TABLET BY l MG 00:00: MOUTH AT [place] 00 BEDTIME Mirapex Yes GIVE 1 Memoria Tablet 0.5 3-28 TABLET BY l MG 00:00: MOUTH AT [place] 00 BEDTIME Lyrica Yes Give 1 Memoria Capsule 225 3-28 capsule by l MG 00:00: mouth two [place] 00 times a day related to FIBROMYALG [...] tablet by l 15 MG 20:45: mouth [place] 00 every 6 hours as needed for severe pain for 10 Days hydrochloro Yes Brigid Mckinley 1 tab(s) Memoria thiazide-lo 2-08 Bria l sartan 00:00: [place] 00 lorazepam Yes Brigid HannaElías 1 tab(s) Memoria 1-26 Bria l 03:03: [place] 13 mirtazapine 2015-04 Yes Milagros Tejeda 1 tab(s) Memoria 0-13 l 02:18: [place] 44 ibandronate 2015-04 Yes Milagros Tejeda 1 tab(s) Memoria 0-13 l 02:18: [place] 44 zolpidem 2015-04 Yes Milagros Tejeda 1 tab(s) Memoria 0-13 l 02:18: [place] 44 Pristiq 2015-04 Yes Milagros Tejeda 1 tab(s) Memoria 0-13 l 02:18: [place] 44 lidocaine 2015-04 Yes Milagros Tejeda - Me moria 0.5% 0-13 l topical 02:18: [place] [facility] 44 levothyroxi 2015-04 Yes Milagros Tejeda 1 tab(s) Memoria ne 0-13 l 02:18: [place] 44 fenofibrate 2015-04 Yes Milagros Tejeda 1 tab(s) Memoria 0-13 l 02:18: [place] 44 Butrans 2015-04 Yes Milagros Tejeda 1 patch M emoria 0-13 l 02:18: [place] 44 Vitamin D3 2015-04 Yes Milagros Tejeda 1 cap(s) Memoria 0-13 l 02:18: [place] 44 clonidine 2015-04 Yes Milagros Tejeda 1 tab(s) Memoria 0-13 l 02:18: [place] 44 hydrochloro 2015-04 Yes Milagros Tejeda 1 tab(s) [facility] thiazide-lo 0-13 l sartan 02:18: [place] 43 Lyrica Yes Brigid Becketto 1 cap(s) M emoria 9-26 Bria l 00:00: ergocalcife Yes Milagros Tejeda 1 cap(s) [facility] rol 9-26 l 00:00: clotrimazol Yes Milagros Tejeda 1 noy [facility] e topical 9-26 l 00:00: PrednisoLON Yes Milagros Tejeda 1 gtt [facility] E Na 6-27 l Phosphate-N 00:00: Blaise n a Sulfacetami de Vigamox Yes Brandon 1 gtt Inder homar 6-27 Davis l 00:00: Lyrica Yes Brandon 1 cap(s) Me moria 6-01 Davis l 00:00: Lyrica Yes Brandon 1 cap(s) Me moria 4-29 Davis l 02:37: [place] 51 hydrochloro Yes Brandon 1 tab(s) [facility] thiazide-lo 2-29 Davis l sartan 00:00: [place] 00 benzonatate 0 Yes Brandon 1 cap(s) [facility] 2-12 Davis l 03:39: [place] 43 Lyrica 2014-04 Yes Brandon 1 cap(s) Me moria 1-23 Davis l 00:00: [place] 00 Levaquin 2014-04 Yes Brandon 1 tab(s) [facility] 1-04 Davis l 00:00: [place] 00 ofloxacin 2014-0 Yes Brandon 2 gtt Me moria ophthalmic 9-28 Davis l 00:00: [place] 00 Betamethaso 0 Yes Brandon 1 noy [facility] ne-Clotrima 8-11 Davis l zole 00:00: [place] 00 Montelukast 0 Yes Brandon 1 tab(s) [facility] Sodium 3-30 Davis l 00:00: [place] 00 benzonatate Yes Brandon 1 cap(s) [facility] 3-16 Davis l 00:00: ProAir HFA Yes Brandon 2 puff(s) [facility] 3-16 Davis l 00:00: [place] 00 Betamethaso 2013-04 Yes Brandon 1 noy [facility] ne-Clotrima 2-15 Davis l zole 00:00: tramadol 2013- Yes Brandon 2 tab(s) [facility] 2-10 Davis l 03:04: 03 cyclobenzap 2013-04 Yes Brandon 1 tab(s) [facility] rine 2-10 Davis l 03:04: 03 zolpidem 2013- Yes Brandon 1 tab(s) [facility] 0-29 Davis l 00:00: [place] 00 Vitamin D3 2013-0 Yes Brandon 1 cap(s) [facility] 9-11 Davis l 00:00: [place] 00 Lyrica 0 Yes Brandon 1 cap(s) Me moria 8-28 Davis l 00:00: IBANDRONATE 2013-0 Yes Take 1 by M emoria SODIUM 150 7-02 mouth l MG TABS 00:00: monthly [place] 00 for osteoporos is ZOLPIDEM 2013-0 Yes Take 1 by Inder homar TARTRATE ER 7-02 mouth l 12.5 MG 00:00: every [place] CR-TABS 00 night to sleep HYDROCODONE 2013-0 Yes Take 1 by M emoria -ACETAMINOP 7-02 mouth ass l HEN 10-325 00:00: needed for H ermann MG TABS 00 pain ONDANSETRON Yes Take 1 by M emoria HCL 4 MG 7-02 mouth as l TABS 00:00: needed for [place] nausea LIDOCAINE 5 Yes use as Inder homar % PTCH 7-02 needed for l 00:00: pain COLACE 50 Yes take 3 [facility] a MG CAPS 7-02 pills po l 00:00: bid prn [place] 00 constipati on ANUSOL-HC Yes apply up Inder homar 2.5 % CREA - to 3-4 l 00:00: times a [place] 00 day ZOLPIDEM Yes Take 1 by Inder homar TARTRATE ER 7-02 mouth l 12.5 MG 00:00: every [place] CR-TABS 00 night to sleep HYDROCODONE Yes Take 1 by M emoria -ACETAMINOP 7-02 mouth ass l HEN 10-325 00:00: needed for H ermann MG TABS 00 pain ONDANSETRON Yes Take 1 by M emoria HCL 4 MG 7-02 mouth as l TABS 00:00: needed for nausea LIDOCAINE 5 Yes use as Inder homar % PTCH 7-02 needed for l 00:00: pain COLACE 50 Yes take 3 [facility] a MG CAPS 7-02 pills po l 00:00: bid prn constipati on CYANOCOBALA Yes 1 ml [facility] a MIN 1000 2-14 injected l MCG/ML INJ 00:00: subcutaneo H ermann SOLN 00 usly monthly. VITAMIN D No Take 1 [facility]ori a (ERGOCALCIF 2-14 capsule by anali BRADY) [id number] 00:00: mouth Linda nn UNIT CAPS 00 every week for 12 weeks FENOFIBRATE Yes 1 tablet Me moria 160 MG TABS 2-14 daily stop l 00:00: simvastati [place] 00 n FENOFIBRATE Yes 1 tablet Me moria 160 MG TABS 2-14 daily stop l 00:00: simvastati [place] 00 n GLUCOTROL No 1 tablet Inder homar XL 5 MG 2-11 daily in l TB24 00:00: ams. BUTRANS 10 No [facility] MCG/HR PTWK 1-27 l 00:00: LYRICA 225 Yes 2 caps po Me moria MG CAPS 1-27 q day l 00:00: BONIVA 150 No 1 PO every M emoria MG TABS -27 month. l 00:00: Give with [place] 00 water 60 minutes before first food/drink /med. Avoid laying down for 60 minutes LYRICA 225 Yes 2 caps po Me moria MG CAPS 1-27 q day l 00:00: BONIVA 150 No 1 PO every M emoria MG TABS -27 month. l 00:00: Give with [place] 00 water 60 minutes before first food/drink /med. Avoid laying down for 60 minutes LYRICA 225 No 1 po tid Mem oria MG CAPS 7-16 l 00:00: LYRICA 225 No 1 po tid Mem oria MG CAPS 7-16 l 00:00: ZOLPIDEM No TAKE ONE Memor ia TARTRATE ER 3-07 TABLET BY l 12.5 MG 00:00: MOUTH [place] CR-TABS 00 EVERY NIGHT AT BEDTIME ZOLPIDEM [...] D3 No One tab po M emoria [id number] UNIT 1-31 qweekly l CAPS 00:00: for 12 weeks MIRTAZAPINE Yes 1 tab po Me moria 30 MG TBDP 1-16 qd l 00:00: TOPICORT Yes APPLY TO Mem[facility] ia CRE 0.25% 1-16 RASH BID l 00:00: ZOLPIDEM 0 No 1 po qhs [facility] ia TARTRATE ER 1-11 l 12.5 MG 00:00: CR-TABS ZOLPIDEM 0 No 1 po qhs [facility] ia TARTRATE ER 1-11 l 12.5 MG 00:00: CR-TABS CYCLOBENZAP Yes 1 po qd Mem [facility]ria RINE HCL 10 4-11 l MG TABS 00:00: CYCLOBENZAP Yes 1 po qd Mem [facility] RINE HCL 10 4-11 l MG TABS 00:00: ERGOCALCIFE 2010-04 No 1 q week Me moria ROL [id number] 2-15 l UNIT CAPS 00:00: CYCLOBENZAP 2010-04 No 1 qd Memori a RINE HCL 10 2-14 l MG TABS 00:00: CYCLOBENZAP 2010-04 No 1 qd [facility] a RINE HCL 10 2-14 l MG TABS 00:00: FLEXERIL 0 No 1 po qhs [facility] ia TAB 10MG 9-20 l 00:00: VIMOVO 0 No 1 tab po [facility] 500-20 MG 9-08 bid l TBEC 00:00: CIPRO 500 0 No pt to take Me moria MG TABS 8-25 1 tab l 00:00: every 12 00 hrs CIPRO 500 0 No pt to take Me moria MG TABS 8-25 1 tab l 00:00: every 12 00 hrs VIMOVO 0 No 1 tab po [facility] 500-20 MG 3-21 bid l TBEC 00:00: SKELAXIN 0 No 1 po q [facility] a 800 MG TABS 3-21 bid l 00:00: LOTRIMIN AF 0 No apply bid M emoria CREA 3-21 l 00:00: SKELAXIN 0 No 1 po q [facility] a 800 [...] 00:00: hrs prn Linda nn MG TABS pain HYDROCODONE No 2 tablets M emoria -ACETAMINOP 1-06 every 6 l HEN 5-500 00:00: hrs prn Linda nn MG TABS pain METAXALONE No bid [facility] 800 MG [...] SODIUM 0-20 l 100 MCG 00:00: TABS CALTRATE 2009-04 Yes [facility]oria 600+D PLUS 0-20 l TABS 00:00: PRISTIQ 50 2009-04 Yes 1 qd [facility] MG TB24 0-20 l 00:00: LORAZEPAM 1 2009-04 Yes 2 to 3 as M emoria MG TABS 0-20 needed l 00:00: ERGOCALCIFE 2009-04 No 1 tab po q [facility] ROL [id number] 0-20 wk l UNIT CAPS 00:00: [place] 00 VITAMIN D3 2009-04 No 1 tab a Inder homar 2,000 0-20 day l UNIT/ML 00:00: [place] LIQD 00 (CHOLECALCI FEROL) LEVOTHYROXI 2009-04 Yes 1 qd Memori a NE SODIUM 0-20 l 100 MCG 00:00: [place] TABS 00 LORAZEPAM 2009-04 Yes Take 1 by Mem oria 0.5 MG TABS 0-20 mouth as l 00:00: needed for [place] 00 anxiety LEVOTHYROXI 2009-04 Yes 1 qd Memori a NE SODIUM 0-20 l 100 MCG 00:00: [place] TABS 00 PRISTIQ 50 2009-04 Yes 1 qd [facility] MG TB24 0-20 l 00:00: [place] 00 LORAZEPAM 2009-04 Yes Take 1 by Mem oria 0.5 MG TABS 0-20 mouth as l 00:00: needed for [place] 00 anxiety Immunizations Ordered Immunization Filled Immunization Date Status Commen ts Source Name Name Influenza (MCR) 2014-03-23 Completed [facility] 00:00:00 [place] Vital Signs Vital Name Observation Time Observation Value Comments Source Systolic (mm Hg) 2018-10-22 11:19:00 Inder rial [place] Diastolic (mm Hg) 2018-10-22 11:19:00 [facility] [place] Temperature Oral (F) 2018-10-22 11:19:[address] [facility] Heart Rate 2018-10-22 11:19:00 53 /min [facility] [place] Respitory Rate 2018-10-22 11:19:00 Memori al [place] Systolic (mm Hg) 2018-10-22 04:28:00 Inder rial [place] Diastolic (mm Hg) 2018-10-22 04:28:00 [facility]rial [place] Temperature Oral (F) 2018-10-22 04:28:00 98 F [facility] Heart Rate 2018-10-22 04:28:00 54 /min [facility] [place] Respitory Rate 2018-10-22 04:28:00 Memori al [place] Systolic (mm Hg) 2018-10-21 19:04:00 Inder rial [place] Diastolic (mm Hg) 2018-10-21 19:04:00 Mem orial [place] Temperature Oral (F) 2018-10-21 19:04:00 97 F [facility] [place] Heart Rate 2018-10-21 19:04:00 60 /min [facility] [place] Respitory Rate 2018-10-21 19:04:00 Memori al [place] Systolic (mm Hg) 2018-10-21 11:27:00 Inder rial [place] Diastolic (mm Hg) 2018-10-21 11:27:00 [facility]rial [place] Temperature Oral (F) 2018-10-21 11:27:00 98.4 F [facility] [place] Heart Rate 2018-10-21 11:27:00 52 /min [facility] [place] Respitory Rate 2018-10-21 11:27:00 [facility] al [place] Systolic (mm Hg) 2018-10-21 03:38:00 Inder rial [place] Diastolic (mm Hg) 2018-10-21 03:38:00 Mem [facility] [place] Temperature Oral (F) 2018-10-21 03:38:00 98 F [facility] [place] Heart Rate 2018-10-21 03:38:00 52 /min [facility] [place] Respitory Rate 2018-10-21 03:38:00 Mem[facility] al [place] Systolic (mm Hg) 2018-10-20 22:12:00 Inder rial [place] Diastolic (mm Hg) 2018-10-20 22:12:00 Mem [facility]rial [place] Temperature Oral (F) 2018-10-20 22:12:00 98.6 F [facility] [place] Heart Rate 2018-10-20 22:12:00 74 /min [facility] [place] Respitory Rate 2018-10-20 22:12:00 Mem[facility] al [place] Systolic (mm Hg) 2018-10-20 17:59:00 Inder rial [place] Diastolic (mm Hg) 2018-10-20 17:59:00 Mem [facility]rial [place] Temperature Oral (F) 2018-10-20 17:59:00 98.2 F [facility] [place] Heart Rate 2018-10-20 17:59:00 69 /min [facility] [place] Respitory Rate 2018-10-20 17:59:00 [facility] al [place] Weight 2018-10-20 16:24:05 [facility] [place] Systolic (mm Hg) 2018-10-20 03:36:00 Inder rial [place] Diastolic (mm Hg) 2018-10-20 03:36:00 Mem [facility] [place] Temperature Oral (F) 2018-10-20 03:36:00 98.4 F [facility] [place] Heart Rate 2018-10-20 03:36:00 51 /min [facility] [place] Respitory Rate 2018-10-20 03:36:00 Mem[facility] al [place] Systolic (mm Hg) 2018-10-19 18:45:00 Inder rial [place] Diastolic (mm Hg) 2018-10-19 18:45:00 Mem orial [place] Temperature Oral (F) 2018-10-19 18:45:00 97 F [facility] [place] Heart Rate 2018-10-19 18:45:00 65 /min [facility] [place] Respitory Rate 2018-10-19 18:45:00 Mem[facility] al [place] Systolic (mm Hg) 2018-10-19 11:44:00 Inder rial [place] Diastolic (mm Hg) 2018-10-19 11:44:00 Mem orial [place] Temperature Oral (F) 2018-10-19 11:44:00 97.2 F [facility] [place] Heart Rate 2018-10-19 11:44:00 61 /min [facility] [place] Respitory Rate 2018-10-19 11:44:00 Mem[facility] al [place] Systolic (mm Hg) 2018-10-19 09:15:00 Inder rial [place] Diastolic (mm Hg) 2018-10-19 09:15:00 Mem [facility]rial [place] Temperature Oral (F) 2018-10-19 09:15:00 98.6 F [facility] [place] Heart Rate 2018-10-19 09:15:00 56 /min [facility] [place] Respitory Rate 2018-10-19 09:15:00 Mem[facility] al [place] Systolic (mm Hg) 2018-10-18 19:57:00 Inder rial [place] Diastolic (mm Hg) 2018-10-18 19:57:00 Mem orial [place] Temperature Oral (F) 2018-10-18 19:57:00 99.1 F [facility] [place] Heart Rate 2018-10-18 19:57:00 60 /min [facility] [place] Respitory Rate 2018-10-18 19:57:00 Memori al [place] Systolic (mm Hg) 2018-10-18 05:51:00 Inder rial [place] Diastolic (mm Hg) 2018-10-18 05:51:00 Mem orial [place] Temperature Oral (F) 2018-10-18 05:51:00 98.7 F [facility] [place] Heart Rate 2018-10-18 05:51:00 57 /min [facility] [place] Respitory Rate 2018-10-18 05:51:00 Memori al [place] Systolic (mm Hg) 2018-10-17 20:12:00 Inder rial [place] Diastolic (mm Hg) 2018-10-17 20:12:00 Mem orial [place] Temperature Oral (F) 2018-10-17 20:12:00 97 F [facility] [place] Heart Rate 2018-10-17 20:12:00 56 /min [facility] [place] Respitory Rate 2018-10-17 20:12:00 Mem[facility] al [place] Systolic (mm Hg) 2018-10-17 04:21:00 Inder rial [place] Diastolic (mm Hg) 2018-10-17 04:21:00 Mem orial [place] Temperature Oral (F) 2018-10-17 04:21:00 97.8 F [facility] [place] Heart Rate 2018-10-17 04:21:00 59 /min [facility] [place] Respitory Rate 2018-10-17 04:21:00 Mem[facility] al [place] Systolic (mm Hg) 2018-10-16 18:56:00 Inder rial [place] Diastolic (mm Hg) 2018-10-16 18:56:00 Mem orial [place] Temperature Oral (F) 2018-10-16 18:56:00 97 F [facility] [place] Heart Rate 2018-10-16 18:56:00 70 /min [facility] [place] Respitory Rate 2018-10-16 18:56:00 Mem[facility] al [place] Systolic (mm Hg) 2018-10-16 05:26:00 Inder rial [place] Diastolic (mm Hg) 2018-10-16 05:26:00 Mem orial [place] Temperature Oral (F) 2018-10-16 05:26:00 98.6 F [facility] [place] Heart Rate 2018-10-16 05:26:00 58 /min [facility] [place] Respitory Rate 2018-10-16 05:26:00 Memori al [place] Weight 2018-10-15 17:47:00 [facility] [place] Height 2018-10-15 16:15:00 [facility] [place] Systolic (mm Hg) 2018-10-15 16:03:00 Inder rial [place] Diastolic (mm Hg) 2018-10-15 16:03:00 Mem orial [place] Temperature Oral (F) 2018-10-15 16:03:00 98.4 F [facility] [place] Heart Rate 2018-10-15 16:03:00 48 /min [facility] [place] Respitory Rate 2018-10-15 16:03:00 Memori al [place] Systolic (mm Hg) 2018-10-15 06:16:00 Inder rial [place] Diastolic (mm Hg) 2018-10-15 06:16:00 Mem orial [place] Temperature Oral (F) 2018-10-15 06:16:00 98.6 F [facility] [place] Heart Rate 2018-10-15 06:16:00 58 /min [facility] [place] Respitory Rate 2018-10-15 06:16:00 Memori al [place] Systolic (mm Hg) 2018-10-14 18:41:00 Inder rial [place] Diastolic (mm Hg) 2018-10-14 18:41:00 Mem orial [place] Temperature Oral (F) 2018-10-14 18:41:00 97 F [facility] [place] Heart Rate 2018-10-14 18:41:00 59 /min [facility] [place] Respitory Rate 2018-10-14 18:41:00 Memori al [place] Systolic (mm Hg) 2018-10-14 11:44:00 Inder rial [place] Diastolic (mm Hg) 2018-10-14 11:44:00 Mem orial [place] Temperature Oral (F) 2018-10-14 11:44:00 97.7 F [facility] [place] Heart Rate 2018-10-14 11:44:00 44 /min [facility] [place] Respitory Rate 2018-10-14 11:44:00 Memori al [place] Systolic (mm Hg) 2018-10-14 05:50:00 Inder rial [place] Diastolic (mm Hg) 2018-10-14 05:50:00 Mem orial [place] Temperature Oral (F) 2018-10-14 05:50:00 98.2 F [facility] [place] Heart Rate 2018-10-14 05:50:00 45 /min [facility] [place] Respitory Rate 2018-10-14 05:50:00 Memori al [place] Systolic (mm Hg) 2018-10-14 05:46:00 Inder rial [place] Diastolic (mm Hg) 2018-10-14 05:46:00 Mem orial [place] Temperature Oral (F) 2018-10-14 05:46:00 98 F [facility] [place] Heart Rate 2018-10-14 05:46:00 72 /min [facility] [place] Respitory Rate 2018-10-14 05:46:00 Memori al [place] Systolic (mm Hg) 2018-10-13 20:41:00 Inder rial [place] Diastolic (mm Hg) 2018-10-13 20:41:00 Mem orial [place] Temperature Oral (F) 2018-10-13 20:41:00 97.8 F [facility] [place] Heart Rate 2018-10-13 20:41:00 75 /min [facility] [place] Respitory Rate 2018-10-13 20:41:00 Memori al [place] Systolic (mm Hg) 2018-10-13 05:10:00 Inder rial [place] Diastolic (mm Hg) 2018-10-13 05:10:00 Mem orial [place] Temperature Oral (F) 2018-10-13 05:10:00 98.2 F [facility] [place] Heart Rate 2018-10-13 05:10:00 52 /min [facility] [place] Respitory Rate 2018-10-13 05:10:00 Memori al [place] Systolic (mm Hg) 2018-10-12 20:13:00 Inder rial [place] Diastolic (mm Hg) 2018-10-12 20:13:00 Mem orial [place] Temperature Oral (F) 2018-10-12 20:13:00 98.9 F [facility] [place] Heart Rate 2018-10-12 20:13:00 65 /min [facility] [place] Respitory Rate 2018-10-12 20:13:00 Memori al [place] Systolic (mm Hg) 2018-10-12 04:07:00 Inder rial [place] Diastolic (mm Hg) 2018-10-12 04:07:00 Mem orial [place] Temperature Oral (F) 2018-10-12 04:07:00 98.9 F [facility] [place] Heart Rate 2018-10-12 04:07:00 60 /min [facility] [place] Respitory Rate 2018-10-12 04:07:00 Memori al [place] Systolic (mm Hg) 2018-10-11 19:38:00 Inder rial [place] Diastolic (mm Hg) 2018-10-11 19:38:00 Mem orial [place] Temperature Oral (F) 2018-10-11 19:38:00 97 F [facility] [place] Heart Rate 2018-10-11 19:38:00 54 /min [facility] [place] Respitory Rate 2018-10-11 19:38:00 Memori al [place] Systolic (mm Hg) 2018-10-11 11:23:00 Inder rial [place] Diastolic (mm Hg) 2018-10-11 11:23:00 Mem orial [place] Temperature Oral (F) 2018-10-11 11:23:00 98.2 F [facility] [place] Heart Rate 2018-10-11 11:23:00 50 /min [facility] [place] Respitory Rate 2018-10-11 11:23:00 Memori al [place] Systolic (mm Hg) 2018-10-11 04:56:00 Inder rial [place] Diastolic (mm Hg) 2018-10-11 04:56:00 Mem orial [place] Temperature Oral (F) 2018-10-11 04:56:00 98.7 F [facility] [place] Heart Rate 2018-10-11 04:56:00 62 /min [facility] [place] Respitory Rate 2018-10-11 04:56:00 Memori al [place] Systolic (mm Hg) 2018-10-10 18:27:00 Inder rial [place] Diastolic (mm Hg) 2018-10-10 18:27:00 Mem orial [place] Temperature Oral (F) 2018-10-10 18:27:00 97 F [facility] [place] Heart Rate 2018-10-10 18:27:00 53 /min [facility] [place] Respitory Rate 2018-10-10 18:27:00 Memori al [place] Systolic (mm Hg) 2018-10-10 15:17:00 Inder rial [place] Diastolic (mm Hg) 2018-10-10 15:17:00 Mem orial [place] Temperature Oral (F) 2018-10-10 15:17:00 98.2 F [facility] [place] Heart Rate 2018-10-10 15:17:00 50 /min [facility] [place] Respitory Rate 2018-10-10 15:17:00 Memori al [place] Temperature Oral (F) 2018-10-10 04:27:00 98.6 F [facility] [place] Heart Rate 2018-10-10 04:27:00 64 /min [facility] [place] Respitory Rate 2018-10-10 04:27:00 Memori al [place] Systolic (mm Hg) 2018-10-10 04:27:00 Inder rial [place] Diastolic (mm Hg) 2018-10-10 04:27:00 Mem orial [place] Systolic (mm Hg) 2018-10-09 19:57:00 Inder rial [place] Diastolic (mm Hg) 2018-10-09 19:57:00 Mem orial [place] Temperature Oral (F) 2018-10-09 19:57:00 98.6 F [facility] [place] Heart Rate 2018-10-09 19:57:00 58 /min [facility] [place] Respitory Rate 2018-10-09 19:57:00 Memori al [place] Systolic (mm Hg) 2018-10-09 03:42:00 Inder rial [place] Diastolic (mm Hg) 2018-10-09 03:42:00 Mem orial [place] Temperature Oral (F) 2018-10-09 03:42:00 98.7 F [facility] [place] Heart Rate 2018-10-09 03:42:00 60 /min [facility] [place] Respitory Rate 2018-10-09 03:42:00 Memori al [place] Systolic (mm Hg) 2018-10-08 18:57:00 Inder rial [place] Diastolic (mm Hg) 2018-10-08 18:57:00 Mem orial [place] Temperature Oral (F) 2018-10-08 18:57:00 97 F [facility] [place] Heart Rate 2018-10-08 18:57:00 69 /min [facility] [place] Respitory Rate 2018-10-08 18:57:00 Memori al [place] Systolic (mm Hg) 2018-10-08 13:47:00 Inder rial [place] Diastolic (mm Hg) 2018-10-08 13:47:00 Mem orial [place] Temperature Oral (F) 2018-10-08 13:47:00 98.4 F [facility] [place] Heart Rate 2018-10-08 13:47:00 50 /min [facility] [place] Respitory Rate 2018-10-08 13:47:00 Memori al [place] Systolic (mm Hg) 2018-10-08 11:28:36 Inder rial [place] Diastolic (mm Hg) 2018-10-08 11:28:36 Mem orial [place] Heart Rate 2018-10-08 11:28:36 50 /min [facility] [place] Systolic (mm Hg) 2018-10-08 05:22:00 Inder rial [place] Diastolic (mm Hg) 2018-10-08 05:22:00 Mem orial [place] Temperature Oral (F) 2018-10-08 05:22:00 98.2 F [facility] [place] Heart Rate 2018-10-08 05:22:00 62 /min [facility] [place] Respitory Rate 2018-10-08 05:22:00 Memori al [place] Systolic (mm Hg) 2018-10-07 19:00:00 Inder rial [place] Diastolic (mm Hg) 2018-10-07 19:00:00 Mem orial [place] Temperature Oral (F) 2018-10-07 19:00:00 97 F [facility] [place] Heart Rate 2018-10-07 19:00:00 64 /min [facility] [place] Respitory Rate 2018-10-07 19:00:00 Memori al [place] Systolic (mm Hg) 2018-10-07 16:55:00 Inder rial [place] Diastolic (mm Hg) 2018-10-07 16:55:00 Mem orial [place] Temperature Oral (F) 2018-10-07 16:55:00 98.2 F [facility] [place] Heart Rate 2018-10-07 16:55:00 49 /min [facility] [place] Respitory Rate 2018-10-07 16:55:00 Memori al [place] Systolic (mm Hg) 2018-10-07 12:16:59 Inder rial [place] Diastolic (mm Hg) 2018-10-07 12:16:59 Mem o[facility] [place] Heart Rate 2018-10-07 12:16:59 49 /min [facility] [place] Systolic (mm Hg) 2018-10-07 03:55:00 Inder rial [place] Diastolic (mm Hg) 2018-10-07 03:55:00 Mem orial [place] Temperature Oral (F) 2018-10-07 03:55:00 98.2 F [facility] [place] Heart Rate 2018-10-07 03:55:00 60 /min [facility] [place] Respitory Rate 2018-10-07 03:55:00 Memori al [place] Systolic (mm Hg) 2018-10-06 12:16:00 Inder rial [place] Diastolic (mm Hg) 2018-10-06 12:16:00 Mem orial [place] Temperature Oral (F) 2018-10-06 12:16:00 98.6 F [facility] [place] Heart Rate 2018-10-06 12:16:00 50 /min [facility] [place] Respitory Rate 2018-10-06 12:16:00 Memori al [place] Systolic (mm Hg) 2018-10-06 12:05:38 Inder rial [place] Diastolic (mm Hg) 2018-10-06 12:05:38 Mem o[facility] [place] Heart Rate 2018-10-06 12:05:38 50 /min [facility] [place] Systolic (mm Hg) 2018-10-06 04:06:00 Inder rial [place] Diastolic (mm Hg) 2018-10-06 04:06:00 Mem o[facility] [place] Temperature Oral (F) 2018-10-06 04:06:00 98.4 F [facility] [place] Heart Rate 2018-10-06 04:06:00 62 /min [facility] [place] Respitory Rate 2018-10-06 04:06:00 Mem[facility] al [place] Systolic (mm Hg) 2018-10-05 05:22:00 Inder rial [place] Diastolic (mm Hg) 2018-10-05 05:22:00 Mem orial [place] Temperature Oral (F) 2018-10-05 05:22:00 98.6 F [facility] [place] Heart Rate 2018-10-05 05:22:00 58 /min [facility] [place] Respitory Rate 2018-10-05 05:22:00 Mem[facility] al [place] Systolic (mm Hg) 2018-10-04 20:45:00 Inder rial [place] Diastolic (mm Hg) 2018-10-04 20:45:00 Mem o[facility] [place] Temperature Oral (F) 2018-10-04 20:45:00 98.6 F [facility] [place] Heart Rate 2018-10-04 20:45:00 53 /min [facility] [place] Respitory Rate 2018-10-04 20:45:00 Mem[facility] al [place] Systolic (mm Hg) 2018-10-04 13:31:47 Inder rial [place] Diastolic (mm Hg) 2018-10-04 13:31:47 Mem [facility] [place] Heart Rate 2018-10-04 13:31:47 44 /min [facility] [place] Diastolic (mm Hg) 2018-10-04 05:03:00 Mem o[facility] [place] Temperature Oral (F) 2018-10-04 05:03:00 98.7 F [facility] [place] Heart Rate 2018-10-04 05:03:00 58 /min [facility] [place] Respitory Rate 2018-10-04 05:03:00 Mem[facility] al [place] Systolic (mm Hg) 2018-10-04 05:03:00 Inder rial [place] Systolic (mm Hg) 2018-10-03 19:43:00 Inder rial [place] Diastolic (mm Hg) 2018-10-03 19:43:00 Mem [facility] [place] Temperature Oral (F) 2018-10-03 19:43:00 97 F [facility] [place] Heart Rate 2018-10-03 19:43:00 62 /min [facility] [place] Respitory Rate 2018-10-03 19:43:00 Memori al [place] Systolic (mm Hg) 2018-10-03 12:54:02 Inder rial [place] Diastolic (mm Hg) 2018-10-03 12:54:02 Mem orial [place] Heart Rate 2018-10-03 12:54:02 58 /min [facility] [place] Systolic (mm Hg) 2018-10-03 05:20:00 Inder rial [place] Diastolic (mm Hg) 2018-10-03 05:20:00 Mem o[facility] [place] Temperature Oral (F) 2018-10-03 05:20:00 98.6 F [facility] [place] Heart Rate 2018-10-03 05:20:00 50 /min [facility] [place] Respitory Rate 2018-10-03 05:20:00 Memori al [place] Systolic (mm Hg) 2018-10-02 20:13:00 Inder rial [place] Diastolic (mm Hg) 2018-10-02 20:13:00 Mem o[facility] [place] Temperature Oral (F) 2018-10-02 20:13:00 98.9 F [facility] [place] Heart Rate 2018-10-02 20:13:00 52 /min [facility] [place] Respitory Rate 2018-10-02 20:13:00 Mem[facility] al [place] Systolic (mm Hg) 2018-10-02 15:42:00 Inder rial [place] Diastolic (mm Hg) 2018-10-02 15:42:00 Mem o[facility] [place] Temperature Oral (F) 2018-10-02 15:42:00 98.6 F [facility] [place] Heart Rate 2018-10-02 15:42:00 53 /min [facility] [place] Respitory Rate 2018-10-02 15:42:00 [facility] [place] Systolic (mm Hg) 2018-10-02 13:39:16 Inder rial [place] Diastolic (mm Hg) 2018-10-02 13:39:16 [facility] [place] Heart Rate 2018-10-02 13:39:16 53 /min [facility] [place] Systolic (mm Hg) 2018-10-02 07:17:00 Inder rial [place] Diastolic (mm Hg) 2018-10-02 07:17:00 Mem o[facility] [place] Temperature Oral (F) 2018-10-02 07:17:00 98.2 F [facility] [place] Heart Rate 2018-10-02 07:17:00 58 /min [facility] [place] Respitory Rate 2018-10-02 07:17:00 [facility] [place] Systolic (mm Hg) 2018-10-02 00:57:00 Inder [facility] [place] Diastolic (mm Hg) 2018-10-02 00:57:00 [facility] [place] Temperature Oral (F) 2018-10-02 00:57:00 98.7 F [facility] [place] Respitory Rate 2018-10-02 00:57:00 [facility] [place] Heart Rate 2018-10-02 00:57:00 57 /min [facility] [place] Weight 2018-10-01 23:47:00 [facility] Systolic (mm Hg) 2017-07-26 10:42:00 Inder [facility] [place] Diastolic (mm Hg) 2017-07-26 10:42:00 [facility] [place] Temperature Oral (F) 2017-07-26 10:42:00 97.8 F [facility] [place] Heart Rate 2017-07-26 10:42:00 69 /min [facility] [place] Respitory Rate 2017-07-26 10:42:00 [facility] [place] Systolic (mm Hg) 2017-07-26 05:12:00 Inder [facility] [place] Diastolic (mm Hg) 2017-07-26 05:12:00 [facility] [place] Temperature Oral (F) 2017-07-26 05:12:00 97.8 F [facility] [place] Heart Rate 2017-07-26 05:12:00 68 /min [facility] [place] Respitory Rate 2017-07-26 05:12:00 [facility] [place] Systolic (mm Hg) 2017-07-25 10:55:00 [facility]der [facility] [place] Diastolic (mm Hg) 2017-07-25 10:55:00 [facility] [place] Temperature Oral (F) 2017-07-25 10:55:00 98.4 F [facility] Heart Rate 2017-07-25 10:55:00 86 /min [facility] Respitory Rate 2017-07-25 10:55:00 [facility] [place] Systolic (mm Hg) 2017-07-25 04:51:00 [facility]der [facility] [place] Diastolic (mm Hg) 2017-07-25 04:51:00 [facility] [place] Temperature Oral (F) 2017-07-25 04:51:00 97.8 F [facility] [place] Heart Rate 2017-07-25 04:51:00 67 /min [facility] [place] Respitory Rate 2017-07-25 04:51:00 [facility] [place] Systolic (mm Hg) 2017-07-24 21:09:00 [facility]der [facility] [place] Diastolic (mm Hg) 2017-07-24 21:09:00 Mem [facility] [place] Temperature Oral (F) 2017-07-24 21:09:00 99.1 F [facility] Heart Rate 2017-07-24 21:09:00 81 /min [facility] Respitory Rate 2017-07-24 21:09:00 [facility] Systolic (mm Hg) 2017-07-24 15:25:00 [facility] Diastolic (mm Hg) 2017-07-24 15:25:00 [facility] Temperature Oral (F) 2017-07-24 15:25:00 98.6 F [facility] Heart Rate 2017-07-24 15:25:00 95 /min [facility] Respitory Rate 2017-07-24 15:25:00 [facility] [place] Systolic (mm Hg) 2017-07-24 09:38:00 [facility] [place] Diastolic (mm Hg) 2017-07-24 09:38:00 [facility] [place] Temperature Oral (F) 2017-07-24 09:38:00 98 F [facility] Heart Rate 2017-07-24 09:38:00 82 /min [facility] Respitory Rate 2017-07-24 09:38:00 [facility] [place] Systolic (mm Hg) 2017-07-24 01:29:00 [facility] Diastolic (mm Hg) 2017-07-24 01:29:00 [facility] Temperature Oral (F) 2017-07-24 01:29:00 98 F [facility] Heart Rate 2017-07-24 01:29:00 75 /min [facility] Respitory Rate 2017-07-24 01:29:00 [facility] Systolic (mm Hg) 2017-07-23 10:35:00 [facility] Diastolic (mm Hg) 2017-07-23 10:35:00 [facility] [place] Temperature Oral (F) 2017-07-23 10:35:00 99.8 F [facility] Heart Rate 2017-07-23 10:35:00 83 /min [facility] Respitory Rate 2017-07-23 10:35:00 [facility] Systolic (mm Hg) 2017-07-22 18:11:00 [facility] [place] Diastolic (mm Hg) 2017-07-22 18:11:00 [facility] [place] Temperature Oral (F) 2017-07-22 18:11:00 98.2 F [facility] Heart Rate 2017-07-22 18:11:00 70 /min [facility] Respitory Rate 2017-07-22 18:11:00 [facility] Systolic (mm Hg) 2017-07-22 10:50:00 [facility] [place] Diastolic (mm Hg) 2017-07-22 10:50:00 [facility] [place] Temperature Oral (F) 2017-07-22 10:50:00 98 F [facility] Heart Rate 2017-07-22 10:50:00 62 /min [facility] Respitory Rate 2017-07-22 10:50:00 [facility] [place] Systolic (mm Hg) 2017-07-21 18:56:00 [facility] [place] Diastolic (mm Hg) 2017-07-21 18:56:00 [facility] [place] Temperature Oral (F) 2017-07-21 18:56:00 97.7 F [facility] Heart Rate 2017-07-21 18:56:00 67 /min [facility] Respitory Rate 2017-07-21 18:56:00 [facility] [place] Systolic (mm Hg) 2017-07-21 10:51:00 [facility] Diastolic (mm Hg) 2017-07-21 10:51:00 [facility] [place] Temperature Oral (F) 2017-07-21 10:51:00 97.7 F [facility] Heart Rate 2017-07-21 10:51:00 74 /min [facility] Respitory Rate 2017-07-21 10:51:00 [facility] Systolic (mm Hg) 2017-07-20 20:03:00 [facility] [place] Diastolic (mm Hg) 2017-07-20 20:03:00 [facility] Temperature Oral (F) 2017-07-20 20:03:00 98.6 F [facility] Heart Rate 2017-07-20 20:03:00 83 /min [facility] Respitory Rate 2017-07-20 20:03:00 [facility] [place] Systolic (mm Hg) 2017-07-20 17:57:00 [facility] Diastolic (mm Hg) 2017-07-20 17:57:00 [facility] Temperature Oral (F) 2017-07-20 17:57:00 97.8 F [facility] Heart Rate 2017-07-20 17:57:00 82 /min [facility] Respitory Rate 2017-07-20 17:57:00 [facility] [place] Systolic (mm Hg) 2017-07-20 05:53:00 [facility] [place] Diastolic (mm Hg) 2017-07-20 05:53:00 [facility] [place] Temperature Oral (F) 2017-07-20 05:53:00 97.3 F [facility] Rate 2017-07-20 05:53:00 63 /min [facility] Respitory Rate 2017-07-20 05:53:00 [facility] Systolic (mm Hg) 2017-07-19 19:09:00 [facility] [place] Diastolic (mm Hg) 2017-07-19 19:09:00 [facility] Temperature Oral (F) 2017-07-19 19:09:00 98.4 F [facility] Heart Rate 2017-07-19 19:09:00 88 /min [facility] Respitory Rate 2017-07-19 19:09:00 [facility] [place] Systolic (mm Hg) 2017-07-19 12:57:00 [facility] Diastolic (mm Hg) 2017-07-19 12:57:00 [facility] [place] Temperature Oral (F) 2017-07-19 12:57:00 98.7 F [facility] Heart Rate 2017-07-19 12:57:00 87 /min [facility] Respitory Rate 2017-07-19 12:57:00 [facility] Systolic (mm Hg) 2017-07-19 05:19:00 [facility] Diastolic (mm Hg) 2017-07-19 05:19:00 [facility] [place] Temperature Oral (F) 2017-07-19 05:19:00 98.1 F [facility] Heart Rate 2017-07-19 05:19:00 73 /min [facility] Respitory Rate 2017-07-19 05:19:00 [facility] [place] Systolic (mm Hg) 2017-07-18 19:56:00 [facility] Diastolic (mm Hg) 2017-07-18 19:56:00 [facility] [place] Temperature Oral (F) 2017-07-18 19:56:00 99.6 F [facility] Heart Rate 2017-07-18 19:56:00 78 /min [facility] Respitory Rate 2017-07-18 19:56:00 [facility] Systolic (mm Hg) 2017-07-18 17:23:00 [facility] Diastolic (mm Hg) 2017-07-18 17:23:00 [facility] Temperature Oral (F) 2017-07-18 17:23:00 98.2 F [facility] Heart Rate 2017-07-18 17:23:00 88 /min [facility] Respitory Rate 2017-07-18 17:23:00 [facility] Systolic (mm Hg) 2017-07-18 06:56:00 [facility] [place] Diastolic (mm Hg) 2017-07-18 06:56:00 [facility] [place] Temperature Oral (F) 2017-07-18 06:56:00 98.7 F [facility] Heart Rate 2017-07-18 06:56:00 77 /min [facility] Respitory Rate 2017-07-18 06:56:00 [facility] [place] Systolic (mm Hg) 2017-07-17 19:07:00 [facility] Diastolic (mm Hg) 2017-07-17 19:07:00 [facility] [place] Temperature Oral (F) 2017-07-17 19:07:00 98.4 F [facility] Rate 2017-07-17 19:07:00 74 /min [facility] Respitory Rate 2017-07-17 19:07:00 [facility] [place] Systolic (mm Hg) 2017-07-17 05:03:00 [facility] [place] Diastolic (mm Hg) 2017-07-17 05:03:00 [facility] Temperature Oral (F) 2017-07-17 05:03:00 98.2 F [facility] Heart Rate 2017-07-17 05:03:00 66 /min [facility] Respitory Rate 2017-07-17 05:03:00 [facility] [place] Systolic (mm Hg) 2017-07-16 19:13:00 [facility] [place] Diastolic (mm Hg) 2017-07-16 19:13:00 [facility] [place] Temperature Oral (F) 2017-07-16 19:13:00 98.2 F [facility] Rate 2017-07-16 19:13:00 78 /min [facility] Respitory Rate 2017-07-16 19:13:00 [facility] [place] Systolic (mm Hg) 2017-07-16 14:01:00 [facility] [place] Diastolic (mm Hg) 2017-07-16 14:01:00 [facility] [place] Temperature Oral (F) 2017-07-16 14:01:00 98.7 F [facility] Heart Rate 2017-07-16 14:01:00 77 /min [facility] Respitory Rate 2017-07-16 14:01:00 [facility] [place] Systolic (mm Hg) 2017-07-16 03:51:00 [facility] [place] Diastolic (mm Hg) 2017-07-16 03:51:00 [facility] [place] Temperature Oral (F) 2017-07-16 03:51:00 98 F [facility] Heart Rate 2017-07-16 03:51:00 68 /min [facility] Respitory Rate 2017-07-16 03:51:00 [facility] Systolic (mm Hg) 2017-07-15 20:14:00 [facility] Diastolic (mm Hg) 2017-07-15 20:14:00 [facility] [place] Temperature Oral (F) 2017-07-15 20:14:00 98.2 F [facility] Rate 2017-07-15 20:14:00 85 /min [facility] Respitory Rate 2017-07-15 20:14:00 [facility] Systolic (mm Hg) 2017-07-15 10:42:00 [facility] Diastolic (mm Hg) 2017-07-15 10:42:00 [facility] [place] Temperature Oral (F) 2017-07-15 10:42:00 98.4 F [facility] Rate 2017-07-15 10:42:00 72 /min [facility] Respitory Rate 2017-07-15 10:42:00 [facility] Systolic (mm Hg) 2017-07-15 04:08:00 [facility] [place] Diastolic (mm Hg) 2017-07-15 04:08:00 [facility] [place] Temperature Oral (F) 2017-07-15 04:08:00 98.6 F [facility] Heart Rate 2017-07-15 04:08:00 75 /min [facility] Respitory Rate 2017-07-15 04:08:00 [facility] Systolic (mm Hg) 2017-07-14 19:32:00 [facility] [place] Diastolic (mm Hg) 2017-07-14 19:32:00 [facility] [place] Temperature Oral (F) 2017-07-14 19:32:00 98.6 F [facility] Heart Rate 2017-07-14 19:32:00 75 /min [facility] Respitory Rate 2017-07-14 19:32:00 [facility] [place] Systolic (mm Hg) 2017-07-14 12:46:00 [facility] [place] Diastolic (mm Hg) 2017-07-14 12:46:00 [facility] Temperature Oral (F) 2017-07-14 12:46:00 97.8 F [facility] Heart Rate 2017-07-14 12:46:00 64 /min [facility] Respitory Rate 2017-07-14 12:46:00 [facility] Systolic (mm Hg) 2017-07-14 04:14:00 [facility] Diastolic (mm Hg) 2017-07-14 04:14:00 [facility] Temperature Oral (F) 2017-07-14 04:14:00 98.4 F [facility] Heart Rate 2017-07-14 04:14:00 81 /min [facility] Respitory Rate 2017-07-14 04:14:00 [facility] Systolic (mm Hg) 2017-07-13 20:54:00 [facility] [place] Diastolic (mm Hg) 2017-07-13 20:54:00 [facility] [place] Temperature Oral (F) 2017-07-13 20:54:00 98.7 F [facility] Heart Rate 2017-07-13 20:54:00 73 /min [facility] Respitory Rate 2017-07-13 20:54:00 [facility] Systolic (mm Hg) 2017-07-13 14:09:00 [facility] [place] Diastolic (mm Hg) 2017-07-13 14:09:00 [facility] [place] Temperature Oral (F) 2017-07-13 14:09:00 98.2 F [facility] Rate 2017-07-13 14:09:00 71 /min [facility] Respitory Rate 2017-07-13 14:09:00 [facility] Systolic (mm Hg) 2017-07-13 04:08:00 [facility] Diastolic (mm Hg) 2017-07-13 04:08:00 [facility] [place] Temperature Oral (F) 2017-07-13 04:08:00 97.9 F [facility] Heart Rate 2017-07-13 04:08:00 79 /min [facility] Respitory Rate 2017-07-13 04:08:00 [facility] Systolic (mm Hg) 2017-07-12 19:29:00 [facility] [place] Diastolic (mm Hg) 2017-07-12 19:29:00 [facility] Temperature Oral (F) 2017-07-12 19:29:00 98.9 F [facility] Heart Rate 2017-07-12 19:29:00 81 /min [facility] Respitory Rate 2017-07-12 19:29:00 [facility] [place] Systolic (mm Hg) 2017-07-12 14:02:00 [facility] [place] Diastolic (mm Hg) 2017-07-12 14:02:00 [facility] Temperature Oral (F) 2017-07-12 14:02:00 98 F [facility] Heart Rate 2017-07-12 14:02:00 60 /min [facility] Respitory Rate 2017-07-12 14:02:00 [facility] [place] Systolic (mm Hg) 2017-07-12 03:57:00 [facility] [place] Diastolic (mm Hg) 2017-07-12 03:57:00 [facility] Temperature Oral (F) 2017-07-12 03:57:00 98.2 F [facility] Rate 2017-07-12 03:57:00 79 /min [facility] Respitory Rate 2017-07-12 03:57:00 [facility] Systolic (mm Hg) 2017-07-11 19:48:00 [facility] Diastolic (mm Hg) 2017-07-11 19:48:00 [facility] [place] Temperature Oral (F) 2017-07-11 19:48:00 98.9 F [facility] Rate 2017-07-11 19:48:00 72 /min [facility] Respitory Rate 2017-07-11 19:48:00 [facility] Systolic (mm Hg) 2017-07-11 15:18:00 [facility] Diastolic (mm Hg) 2017-07-11 15:18:00 [facility] [place] Temperature Oral (F) 2017-07-11 15:18:00 97.8 F [facility] Heart Rate 2017-07-11 15:18:00 76 /min [facility] Respitory Rate 2017-07-11 15:18:00 [facility] [place] Systolic (mm Hg) 2017-07-10 23:55:00 [facility] [place] Diastolic (mm Hg) 2017-07-10 23:55:00 [facility] Temperature Oral (F) 2017-07-10 23:55:00 98.4 F [facility] Heart Rate 2017-07-10 23:55:00 83 /min [facility] Respitory Rate 2017-07-10 23:55:00 [facility] Systolic (mm Hg) 2017-07-10 14:36:00 [facility] [place] Diastolic (mm Hg) 2017-07-10 14:36:00 [facility] Temperature Oral (F) 2017-07-10 14:36:00 98.4 F [facility] Rate 2017-07-10 14:36:00 63 /min [facility] Respitory Rate 2017-07-10 14:36:00 [facility] Systolic (mm Hg) 2017-07-10 05:24:00 [facility] Diastolic (mm Hg) 2017-07-10 05:24:00 [facility] Temperature Oral (F) 2017-07-10 05:24:00 97.8 F [facility] Heart Rate 2017-07-10 05:24:00 74 /min [facility] Respitory Rate 2017-07-10 05:24:00 [facility] [place] Systolic (mm Hg) 2017-07-09 19:44:00 [facility] Diastolic (mm Hg) 2017-07-09 19:44:00 [facility] [place] Temperature Oral (F) 2017-07-09 19:44:00 100.2 F [facility] Rate 2017-07-09 19:44:00 87 /min [facility] Respitory Rate 2017-07-09 19:44:00 [facility] [place] Systolic (mm Hg) 2017-07-09 12:32:00 [facility] Diastolic (mm Hg) 2017-07-09 12:32:00 [facility] Temperature Oral (F) 2017-07-09 12:32:00 98.4 F [facility] Heart Rate 2017-07-09 12:32:00 73 /min [facility] Respitory Rate 2017-07-09 12:32:00 [facility] Systolic (mm Hg) 2017-07-09 05:54:00 [facility] [place] Diastolic (mm Hg) 2017-07-09 05:54:00 [facility] [place] Temperature Oral (F) 2017-07-09 05:54:00 98.7 F [facility] Rate 2017-07-09 05:54:00 66 /min [facility] Respitory Rate 2017-07-09 05:54:00 [facility] [place] Systolic (mm Hg) 2017-07-08 19:00:00 [facility] Diastolic (mm Hg) 2017-07-08 19:00:00 [facility] [place] Temperature Oral (F) 2017-07-08 19:00:00 99.1 F [facility] Heart Rate 2017-07-08 19:00:00 85 /min [facility] Respitory Rate 2017-07-08 19:00:00 [facility] Systolic (mm Hg) 2017-07-08 16:07:00 [facility] [place] Diastolic (mm Hg) 2017-07-08 16:07:00 [facility] Temperature Oral (F) 2017-07-08 16:07:00 99.1 F [facility] Heart Rate 2017-07-08 16:07:00 68 /min [facility] Respitory Rate 2017-07-08 16:07:00 [facility] [place] Weight 2017-07-08 13:58:00 [facility] Systolic (mm Hg) 2017-07-08 06:04:00 [facility] [place] Diastolic (mm Hg) 2017-07-08 06:04:00 [facility] Temperature Oral (F) 2017-07-08 06:04:00 97.3 F [facility] Heart Rate 2017-07-08 06:04:00 77 /min [facility] Respitory Rate 2017-07-08 06:04:00 [facility] [place] Systolic (mm Hg) 2017-07-07 19:42:00 [facility] [place] Diastolic (mm Hg) 2017-07-07 19:42:00 [facility] [place] Temperature Oral (F) 2017-07-07 19:42:00 99.1 F [facility] Rate 2017-07-07 19:42:00 85 /min [facility] Respitory Rate 2017-07-07 19:42:00 [facility] [place] Systolic (mm Hg) 2017-07-07 10:39:00 [facility] [place] Diastolic (mm Hg) 2017-07-07 10:39:00 [facility] [place] Temperature Oral (F) 2017-07-07 10:39:00 98.4 F [facility] Heart Rate 2017-07-07 10:39:00 59 /min [facility] Respitory Rate 2017-07-07 10:39:00 [facility] [place] Systolic (mm Hg) 2017-07-07 01:02:00 [facility] [place] Diastolic (mm Hg) 2017-07-07 01:02:00 [facility] [place] Temperature Oral (F) 2017-07-07 01:02:00 100.7 F [facility] Rate 2017-07-07 01:02:00 86 /min [facility] Respitory Rate 2017-07-07 01:02:00 [facility] [place] Systolic (mm Hg) 2017-07-06 13:21:00 [facility] Diastolic (mm Hg) 2017-07-06 13:21:00 [facility] Temperature Oral (F) 2017-07-06 13:21:00 98.7 F [facility] Heart Rate 2017-07-06 13:21:00 73 /min [facility] Respitory Rate 2017-07-06 13:21:00 [facility] [place] Systolic (mm Hg) 2017-07-06 05:07:00 [facility] Diastolic (mm Hg) 2017-07-06 05:07:00 [facility] Temperature Oral (F) 2017-07-06 05:07:00 98.6 F [facility] Heart Rate 2017-07-06 05:07:00 79 /min [facility] Respitory Rate 2017-07-06 05:07:00 [facility] Systolic (mm Hg) 2017-07-05 18:49:00 [facility] Diastolic (mm Hg) 2017-07-05 18:49:00 [facility] Temperature Oral (F) 2017-07-05 18:49:00 98.4 F [facility] Heart Rate 2017-07-05 18:49:00 78 /min [facility] Respitory Rate 2017-07-05 18:49:00 [facility] Systolic (mm Hg) 2017-07-05 16:26:00 [facility] Diastolic (mm Hg) 2017-07-05 16:26:00 [facility] Temperature Oral (F) 2017-07-05 16:26:00 98.6 F [facility] Heart Rate 2017-07-05 16:26:00 69 /min [facility] Respitory Rate 2017-07-05 16:26:00 [facility] [place] Systolic (mm Hg) 2017-07-05 06:18:00 [facility] Diastolic (mm Hg) 2017-07-05 06:18:00 [facility] Temperature Oral (F) 2017-07-05 06:18:00 98.4 F [facility] Rate 2017-07-05 06:18:00 72 /min [facility] Respitory Rate 2017-07-05 06:18:00 [facility] [place] Systolic (mm Hg) 2017-07-04 19:40:00 [facility] [place] Diastolic (mm Hg) 2017-07-04 19:40:00 [facility] Temperature Oral (F) 2017-07-04 19:40:00 98.4 F [facility] Heart Rate 2017-07-04 19:40:00 78 /min [facility] Respitory Rate 2017-07-04 19:40:00 [facility] Systolic (mm Hg) 2017-07-04 17:31:00 [facility] [place] Diastolic (mm Hg) 2017-07-04 17:31:00 [facility] [place] Temperature Oral (F) 2017-07-04 17:31:00 98 F [facility] Rate 2017-07-04 17:31:00 71 /min [facility] Respitory Rate 2017-07-04 17:31:00 [facility] Systolic (mm Hg) 2017-07-04 13:01:54 [facility] Diastolic (mm Hg) 2017-07-04 13:01:54 [facility] Heart Rate 2017-07-04 13:01:54 71 /min [facility] Systolic (mm Hg) 2017-07-04 05:14:00 [facility] Diastolic (mm Hg) 2017-07-04 05:14:00 [facility] [place] Temperature Oral (F) 2017-07-04 05:14:00 98 F [facility] Heart Rate 2017-07-04 05:14:00 86 /min [facility] Respitory Rate 2017-07-04 05:14:00 [facility] Systolic (mm Hg) 2017-07-04 00:52:00 [facility] Diastolic (mm Hg) 2017-07-04 00:52:00 [facility] Systolic (mm Hg) 2017-07-03 23:48:00 [facility] Diastolic (mm Hg) 2017-07-03 23:48:00 [facility] Temperature Oral (F) 2017-07-03 23:48:00 98.6 F [facility] Heart Rate 2017-07-03 23:48:00 83 /min [facility] Respitory Rate 2017-07-03 23:48:00 She[facility] Temperature Oral (F) 2017-07-03 20:46:00 98.6 F [facility] Heart Rate 2017-07-03 20:46:00 83 /min [facility] Respitory Rate 2017-07-03 20:46:00 [facility] Height 2017-07-03 20:25:00 [facility] Weight 2016-01-03 18:30:00 [facility] Height 2016-01-03 18:30:00 [facility] Diastolic (mm Hg) 2016-01-03 18:30:00 [facility] Systolic (mm Hg) 2016-01-03 18:30:00 [facility] Weight 2015-10-04 19:00:00 [facility] Height 2015-10-04 19:00:00 [facility] Diastolic (mm Hg) 2015-10-04 19:00:00 [facility] [place] Systolic (mm Hg) 2015-10-04 19:00:00 [facility] [place] Weight 2015-07-07 19:15:00 [facility] Height 2015-07-07 19:15:00 [facility] Weight 2015-06-07 19:00:00 [facility] Height 2015-06-07 19:00:00 [facility] Diastolic (mm Hg) 2015-06-07 19:00:00 [facility] [place] Systolic (mm Hg) 2015-06-07 19:00:00 [facility] Weight 2015-03-08 15:00:00 [facility] Height 2015-03-08 15:00:00 [facility] Diastolic (mm Hg) 2015-03-08 15:00:00 [facility] Systolic (mm Hg) 2015-03-08 15:00:00 [facility] [place] Weight 2015-01-04 22:30:00 [facility] Height 2015-01-04 22:30:00 [facility] Diastolic (mm Hg) 2015-01-04 22:30:00 [facility] [place] Systolic (mm Hg) 2015-01-04 22:30:00 [facility] Weight 2014-12-24 21:30:00 [facility] Height 2014-12-24 21:30:00 [facility] Diastolic (mm Hg) 2014-12-24 21:30:00 [facility] [place] Systolic (mm Hg) 2014-12-24 21:30:00 [facility] Weight 2014-11-05 14:30:00 [facility] Height 2014-11-05 14:30:00 [facility] Diastolic (mm Hg) 2014-11-05 14:30:00 [facility] Systolic (mm Hg) 2014-11-05 14:30:00 [facility] t[facility] [place] Weight 2014-11-05 13:30:00 [facility] Height 2014-11-05 13:30:00 [facility] Diastolic (mm Hg) 2014-11-05 13:30:00 [facility] [place] Systolic (mm Hg) 2014-11-05 13:30:00 [facility] Weight 2014-03-23 16:15:00 [facility] Height 2014-03-23 16:15:00 [facility] Diastolic (mm Hg) 2014-03-23 16:15:00 [facility] [place] Systolic (mm Hg) 2014-03-23 16:15:00 [facility] Weight 2014-02-04 19:30:00 [facility] Height 2014-02-04 19:30:00 [facility] Diastolic (mm Hg) 2014-02-04 19:30:00 [facility] [place] Systolic (mm Hg) 2014-02-04 19:30:00 [facility] Weight 2013-12-04 14:15:00 [facility] Height 2013-12-04 14:15:00 [facility] Diastolic (mm Hg) 2013-12-04 14:15:00 [facility] Systolic (mm Hg) 2013-12-04 14:15:00 [facility] t[facility] [place] Weight 2013-10-08 13:52:52 [facility] Systolic (mm Hg) 2013-10-08 13:52:52 [facility] [place] Diastolic (mm Hg) 2013-10-08 13:52:52 [facility] Temperature Oral (F) 2013-10-08 13:52:52 99.4 F [facility] Heart Rate 2013-10-08 13:52:52 [facility] Respitory Rate 2013-10-08 13:52:52 [facility] Weight 2013-07-02 14:28:04 [facility] Systolic (mm Hg) 2013-07-02 14:28:04 [facility] [place] Diastolic (mm Hg) 2013-07-02 14:28:04 [facility] [place] Temperature Oral (F) 2013-07-02 14:28:04 99 F [facility] Heart Rate 2013-07-02 14:28:04 [facility] Respitory Rate 2013-07-02 14:28:04 [facility] [place] Weight 2013-06-05 15:50:01 [facility] Systolic (mm Hg) 2013-06-05 15:50:01 [facility] [place] Diastolic (mm Hg) 2013-06-05 15:50:01 [facility] Temperature Oral (F) 2013-06-05 15:50:01 99.3 F [facility] Heart Rate 2013-06-05 15:50:01 [facility] Respitory Rate 2013-06-05 15:50:01 [facility] [place] Weight 2013-05-23 15:28:10 [facility] Systolic (mm Hg) 2013-05-23 15:28:10 [facility] Diastolic (mm Hg) 2013-05-23 15:28:10 [facility] [place] Temperature Oral (F) 2013-05-23 15:28:10 98.7 F [facility] Heart Rate 2013-05-23 15:28:10 [facility] Weight 2013-05-05 16:22:00 [facility] Temperature Oral (F) 2013-05-05 16:22:00 98.7 F [facility] Systolic (mm Hg) 2013-05-05 16:22:00 [facility] [place] Diastolic (mm Hg) 2013-05-05 16:22:00 [facility] [place] Heart Rate 2013-05-05 16:22:00 [facility] Weight 2013-01-28 16:03:10 [facility] Systolic (mm Hg) 2013-01-28 16:03:10 [facility] Diastolic (mm Hg) 2013-01-28 16:03:10 [facility] [place] Heart Rate 2013-01-28 16:03:10 [facility] Temperature Oral (F) 2013-01-28 16:03:10 98.7 F [facility] Weight 2012-05-14 21:21:23 [facility] Temperature Oral (F) 2012-05-14 21:21:23 98.6 F [facility] Heart Rate 2012-05-14 21:21:23 [facility] Systolic (mm Hg) 2012-05-14 21:21:23 [facility] [place] Diastolic (mm Hg) 2012-05-14 21:21:23 [facility] Weight 2012-05-09 20:42:51 [facility] Systolic (mm Hg) 2012-05-09 20:42:51 [facility] Diastolic (mm Hg) 2012-05-09 20:42:51 [facility] Temperature Oral (F) 2012-05-09 20:42:51 99.3 F [facility] Heart Rate 2012-05-09 20:42:51 [facility] Weight 2012-04-24 14:39:53 [facility] Temperature Oral (F) 2012-04-24 14:39:53 99.2 F [facility] Heart Rate 2012-04-24 14:39:53 [facility] Systolic (mm Hg) 2012-04-24 14:39:53 [facility] Diastolic (mm Hg) 2012-04-24 14:39:53 [facility] [place] Weight 2011-09-05 20:08:18 [facility] Temperature Oral (F) 2011-09-05 20:08:18 99.0 F [facility] Rate 2011-09-05 20:08:18 [facility] Systolic (mm Hg) 2011-09-05 20:08:18 [facility] Diastolic (mm Hg) 2011-09-05 20:08:18 [facility] [place] Weight 2011-03-14 20:51:50 [facility] Temperature Oral (F) 2011-03-14 20:51:50 99.2 F [facility] Heart Rate 2011-03-14 20:51:50 [facility] Systolic (mm Hg) 2011-03-14 20:51:50 [facility] Diastolic (mm Hg) 2011-03-14 20:51:50 [facility] [place] Weight 2011-02-20 21:08:51 [facility] Temperature Oral (F) 2011-02-20 21:08:51 98.9 F [facility] Heart Rate 2011-02-20 21:08:51 [facility] Systolic (mm Hg) 2011-02-20 21:08:51 [facility] [place] Diastolic (mm Hg) 2011-02-20 21:08:51 [facility] [place] Weight 2011-01-26 19:47:50 [facility] [place] Temperature Oral (F) 2011-01-26 19:47:50 99.2 F [facility] [place] Heart Rate 2011-01-26 19:47:50 [facility] [place] Systolic (mm Hg) 2011-01-26 19:47:50 [facility]der [facility] [place] Diastolic (mm Hg) 2011-01-26 19:47:50 [facility] [place] Weight 2010-12-15 18:33:00 [facility] Temperature Oral (F) 2010-12-15 18:33:00 99.3 F [facility] Heart Rate 2010-12-15 18:33:00 [facility] [place] Systolic (mm Hg) 2010-12-15 18:33:00 [facility]der [facility] [place] Diastolic (mm Hg) 2010-12-15 18:33:00 [facility] [place] Weight 2010-12-01 18:48:50 [facility] [place] Temperature Oral (F) 2010-12-01 18:48:50 99.6 F [facility] Heart Rate 2010-12-01 18:48:50 [facility] [place] Systolic (mm Hg) 2010-12-01 18:48:50 [facility]der [facility] [place] Diastolic (mm Hg) 2010-12-01 18:48:50 [facility] [place] Height 2010-09-22 15:31:42 [facility] [place] Weight 2010-09-22 15:31:42 [facility] [place] Temperature Oral (F) 2010-09-22 15:31:42 99.2 F [facility] [place] Heart Rate 2010-09-22 15:31:42 [facility] [place] Systolic (mm Hg) 2010-09-22 15:31:42 [facility] [place] Diastolic (mm Hg) 2010-09-22 15:31:42 [facility] [place] Systolic (mm Hg) 2010-07-20 19:31:14 [facility] [place] Diastolic (mm Hg) 2010-07-20 19:31:14 [facility] [place] Height 2010-07-06 18:38:06 [facility] Weight 2010-07-06 18:38:06 [facility] Heart Rate 2010-07-06 18:38:06 [facility] Systolic (mm Hg) 2010-07-06 18:38:06 [facility] Diastolic (mm Hg) 2010-07-06 18:38:06 [facility] Temperature Oral (F) 2010-06-27 19:15:00 98.9 F [facility] Heart Rate 2010-06-27 19:15:00 [facility] Systolic (mm Hg) 2010-06-27 19:15:00 [facility] Diastolic (mm Hg) 2010-06-27 19:15:00 [facility] Temperature Oral (F) 2010-06-21 18:39:11 99.4 F [facility] Heart Rate 2010-06-21 18:39:11 [facility] Systolic (mm Hg) 2010-06-21 18:39:11 [facility] Diastolic (mm Hg) 2010-06-21 18:39:11 [facility] Weight 2010-06-16 17:04:13 [facility] Height 2010-06-16 17:04:13 [facility] Systolic (mm Hg) 2010-06-16 17:04:13 [facility] Diastolic (mm Hg) 2010-06-16 17:04:13 [facility] Height 2010-06-02 15:04:56 [facility] Weight 2010-06-02 15:04:56 [facility] Heart Rate 2010-06-02 15:04:56 [facility] Systolic (mm Hg) 2010-06-02 15:04:56 [facility] Diastolic (mm Hg) 2010-06-02 15:04:56 [facility] Height 2010-05-27 16:34:51 [facility] Weight 2010-05-27 16:34:51 [facility] Systolic (mm Hg) 2010-05-27 16:34:51 [facility] Diastolic (mm Hg) 2010-05-27 16:34:51 [facility] Heart Rate 2010-05-27 16:34:51 [facility] Systolic (mm Hg) 2010-05-24 17:32:36 [facility] Diastolic (mm Hg) 2010-05-24 17:32:36 [facility] Temperature Oral (F) 2010-05-24 16:21:21 99.2 F [facility] Heart Rate 2010-05-24 16:21:21 [facility] Systolic (mm Hg) 2010-05-24 16:21:21 [facility] Diastolic (mm Hg) 2010-05-24 16:21:21 [facility] Weight 2010-05-24 16:21:21 [facility] Height 2010-05-18 19:38:33 [facility] Weight 2010-05-18 19:38:33 [facility] Systolic (mm Hg) 2010-05-18 19:38:33 [facility] Diastolic (mm Hg) 2010-05-18 19:38:33 [facility] Height 2010-05-04 20:14:07 [facility] Weight 2010-05-04 20:14:07 [facility] Systolic (mm Hg) 2010-05-04 20:14:07 [facility] Diastolic (mm Hg) 2010-05-04 20:14:07 [facility] Heart Rate 2010-05-04 20:14:07 [facility] Weight 2010-04-06 21:03:11 [facility] Temperature Oral (F) 2010-04-06 21:03:11 99.6 F [facility] Heart Rate 2010-04-06 21:03:11 [facility] Systolic (mm Hg) 2010-04-06 21:03:11 [facility] Diastolic (mm Hg) 2010-04-06 21:03:11 [facility] Height 2010-03-14 15:45:40 [facility] Weight 2010-03-14 15:45:40 [facility] Temperature Oral (F) 2010-03-14 15:45:40 99.2 F [facility] Heart Rate 2010-03-14 15:45:40 [facility] Systolic (mm Hg) 2010-03-14 15:45:40 [facility] Diastolic (mm Hg) 2010-03-14 15:45:40 [facility] Height 2010-01-26 19:53:01 [facility] Weight 2010-01-26 19:53:01 [facility] Temperature Oral (F) 2010-01-26 19:53:01 99.2 F [facility] Heart Rate 2010-01-26 19:53:01 [facility] Systolic (mm Hg) 2010-01-26 19:53:01 [facility] Diastolic (mm Hg) 2010-01-26 19:53:01 [facility] Procedures Procedure Date / Time Performed Performing Clinician [facility] e mammogram 2007-04-03 20:53:01 Aleshia mcguire bone density 2005-02-13 19:44:42 Aleshia mcguire Plan of Care Planned Activity Planned Date Details Comments Source Future Scheduled 2019-12-[address] [facility] - Test 00:00:00 (#1) [code = [facility] INFLUENZA VACCINE (#1)] Future Scheduled 2015-06-[address] [facility] - Test 00:00:00 WELLNESS (YEAR 2 or [facility] FIRST YEAR if no IPPE) [code = MEDICARE ANNUAL WELLNESS (YEAR 2 or FIRST YEAR if no IPPE)] Future Scheduled [address] [facility] - Test 00:00:00 malignant neoplasm [facility] enter of breast (procedure) [code = 104291649] Future Scheduled [address] [facility] - Test 00:00:00 malignant neoplasm [facility] enter of colon (procedure) [code = 292761200] Encounters Start End Encounter Admission Attending Care Care Encounter Source Date/Time Date/Time Type Type Clinicians Facility Department ID 2020-08-14 Outpatient [facility] [id number] [place] 03:01:03 [facility] [employer] ([facility]) 2018-10-01 2018-10-22 Outpatient [id number] 00:00:00 00:00:00 3cef-461f ef-461f-873 cef-461f -[id number] -[id number] 2b6 55d2b6 2018-09-24 2018-09-22 Inpatient [facility] [id number] 16:43:00 13:56:00 2017-07-03 2017-07-26 Outpatient [id number] 00:00:00 00:00:00 [id number] 63-4375-ac6 563-4375 -a -ch35-110 [id number] 9ca 63b9ca 2016-05-17 2016-05-17 Rx Sonya Fraser, [id number] 51-d [facility] 17:37:00 17:37:00 clarificat r Gaurav GRANT 583-4e7d-9 l ion 183-g97332 Linda nn 0dfa6f 2016-05-17 2016-05-17 Rx Sonya Fraser, pd0141 51-d [facility] 17:37:00 17:37:00 clarificat r Gaurav GRANT 583-4e7d-9 l ion 183-h95531 Linda nn 0dfa6f 2016-05-17 2016-05-17 Outpatient Bria Fraser, [id number] [facility]inic 11:37:00 11:37:00 Gaurav Beavers s 2016-05-03 2016-05-03 refill Sonya Fraser, [id number] 91-1 [facility] 15:31:00 15:31:00 request r Gaurav GRANT 90c-4d9b-b l 6ba-222cad Linda nn 9adf4c 2016-05-03 2016-05-03 refill nullNicko Bria, c53aff 5b-1 [facility] 15:31:00 15:31:00 request r Gaurav GRANT a17-9120-9 l 19e-828b33 Linda nn 41dce9 2016-05-03 2016-05-03 refill Shadeo Bria, 2dw531 91-1 [facility] 15:31:00 15:31:00 request r Gaurav GRANT 90c-4d9b-b l 6ba-222cad Linda nn 9adf4c 2016-05-03 2016-05-03 refill nullNicko Bria, c53aff 5b-1 [facility] 15:31:00 15:31:00 request r Gaurav GRANT k77-5091-2 l 19e-828b33 Linda nn 41dce9 2016-05-03 2016-05-03 Outpatient Bria Fraser, [id number] eClinic 09:31:00 09:31:00 Gaurav briceño 2016-03-20 2016-03-20 refill Sonya Fraser, ts758w e9-0 [facility] 18:57:00 18:57:00 request..k r Gaurav GRANT 4l4-3k01-c l z 622-48q912 [facility] 103076 3697-12-12 2016-03-20 refill nullNicko Bria, 57e8d9 57-3 [facility] 18:57:00 18:57:00 request..jessica Nolasco MD r44-9281-9 l z ee9-6a7c82 [facility] [id number] 1698-12-12 2016-03-20 refill nullFlavo Bria, 79f402 ea-e [facility] 18:57:00 18:57:00 request..jessica Nolasco MD c93-8150-4 l z 4i3-429n19 [facility] 653fd6 2016-03-20 2016-03-20 refill nullFlavo Bria, od383z e9-0 [facility] 18:57:00 18:57:00 request..jessica Nolasco MD 3f2-0v16-f l z 622-86e366 [facility] [id number] 5582-12-12 2016-03-20 refill nullFlavo Bria, 57e8d9 57-3 [facility] 18:57:00 18:57:00 request..jessica Nolasco MD b86-5087-9 l z ee9-6a7c82 [facility] [id number] 2642-12-12 2016-03-20 refill nullNicko Bria, 77x629 ea-e [facility] 18:57:00 18:57:00 request..jessica Nolasco MD w96-1681-5 l z 1v2-540j13 [facility] 653fd6 2016-03-20 2016-03-20 Outpatient Bria Fraser, [id number] eClinic 12:57:00 12:57:00 Gaurav Nolasco MD alWork s 2016-03-09 2016-03-09 REFILL nullNicko Bria, 4688b4 c6-2 [facility] 20:08:00 20:08:00 REQUEST r Gaurav GRANT 905-4225-b l [id number]-f723b7 [facility] a5a2e9 2016-03-09 2016-03-09 REFILL nullFlavo Bria, c8fd11 e2-0 [facility] 20:08:00 20:08:00 REQUEST r Gaurav GRANT 725-4a2c-9 l baf-ia673l [facility] a15e6b 2016-03-09 2016-03-09 REFILL nullFlavo Bria, fdcef4 53-b [facility] 20:08:00 20:08:00 REQUEST usama Nolasco MD 22b-46b8-a l 6i2-en85d8 [facility] nn o5w876 2016-03-09 2016-03-09 REFILL nullFlavo Bria, 7ac9bc f9-8 [facility] 20:08:00 20:08:00 REQUEST usama Nolasco MD 23e-4586-8 l ecc-713cf6 Linda nn 3eb5de 2016-03-09 2016-03-09 REFILL nullFlavo Bria, 4688b4 c6-2 [facility] 20:08:00 20:08:00 REQUEST usama Nolasco MD 905-4225-b l 553-f723b7 [facility] a5a2e9 2016-03-09 2016-03-09 REFILL nullFlavo Bria, c8fd11 e2-0 [facility] 20:08:00 20:08:00 REQUEST usama Nolasco MD 725-4a2c-9 l baf-qf719l [facility] a15e6b 2016-03-09 2016-03-09 REFILL nullFlavo Bria fdcef4 53-b [facility] 20:08:00 20:08:00 REQUEST usama Nolasco MD 22b-46b8-a l 5k8-cp14w6 [facility] z4f247 2016-03-09 2016-03-09 REFILL nullFlavo Bria, 7ac9bc f9-8 [facility] 20:08:00 20:08:00 REQUEST usama Nolasco MD 23e-4586-8 l ecc-713cf6 Linda nn 3eb5de 2016-03-09 2016-03-09 Outpatient Bria Fraser, [id number] eClinic 14:08:00 14:08:00 Gaurav Nolasco MD alWork s 2016-01-03 2016-01-03 3 Months nullFlavo Bria, 7534e 763-7 [facility] 19:30:00 19:30:00 (Reason: usama Nolasco MD 17a-4c29-a l Thyroid , ff8-97775t Her mcguire Cholestero 5n705u l ) 2016-01-03 2016-01-03 3 Months nullFlavo Bria, 4449e 47e-a [facility] 19:30:00 19:30:00 (Reason: usama Nolasco MD 2p5-3338-g l Thyroid , cc5-960a28 Her mcguire Cholestero 4086da l ) 2016-01-03 2016-01-03 3 Months nullFlavo Bria, aa97c df8-f [facility] 19:30:00 19:30:00 (Reason: usama Nolasco MD fa1-4387-b l Thyroid , 11d-aa62c3 Her mcguire Cholestero 34ac8d l ) 2016-01-03 2016-01-03 3 Months nullFlavo Bria, 3613e 86e-0 [facility] 19:30:00 19:30:00 (Reason: usama Nolasco MD n8r-8u6x-t l Thyroid , v77-33xm9s Her mcguire Cholestero e5a0db l ) 2016-01-03 2016-01-03 3 Months nullFlavo Bria, 7534e 763-7 [facility] 19:30:00 19:30:00 (Reason: usama Nolasco MD 17a-4c29-a l Thyroid , ff8-68706i Her mcguire Cholestero 6j859q l ) 2016-01-03 2016-01-03 3 Months nullFlavo Bria, 4449e 47e-a [facility] 19:30:00 19:30:00 (Reason: usama Nolasco MD 3o0-5118-b l Thyroid , cc5-960a28 Her mcguire Cholestero 4086da l ) 2016-01-03 2016-01-03 3 Months nullFlavo Bria, aa97c df8-f [facility] 19:30:00 19:30:00 (Reason: usama Nolasco MD fa1-4387-b l Thyroid , 11d-aa62c3 Her mcguire Cholestero 34ac8d l ) 2016-01-03 2016-01-03 3 Months nullFlavo Bria, 3613e 86e-0 [facility] 19:30:00 19:30:00 (Reason: usama Nolasco MD s8i-8y0g-a l Thyroid , x02-42vv6e Her mcguire Cholestero e5a0db l ) 2016-01-03 2016-01-03 3 Months nullFlavo Bria, 6a203 fa8-8 [facility] 18:30:00 18:30:00 (Reason: usama Nolasco MD 2ff-40df-9 l Thyroid , m95-z9002r Her mcguire Cholestero d76e66 l ) 2016-01-03 2016-01-03 3 Months nullFlavo Bria, 6a203 fa8-8 [facility] 18:30:00 18:30:00 (Reason: usama Nolasco MD 2ff-40df-9 l Thyroid , p39-k5140j Her mcguire Cholestero d76e66 l ) 2016-01-03 2016-01-03 Outpatient Bria Fraser, [id number] eClinic 13:30:00 13:30:00 Gaurav Nolasco MD alWork s 2015-10-04 2015-10-04 3 Months nullFlavo Bria, e1015 332-3 [facility] 20:00:00 20:00:00 (Reason: usama Nolasco MD ea7-42b6-9 l HTn , ea6-e62085 Linda nn Thyroid 16c46e and cholestero l ) 2015-10-04 2015-10-04 3 Months nullFlavo Bria, 8051e 85e-c [facility] 20:00:00 20:00:00 (Reason: usama Nolasco MD 321-4623-b l HTn , ce9-d8fb83 Linda nn Thyroid 3fffe9 and cholestero l ) 2015-10-04 2015-10-04 3 Months nullFlavo Bria, df55e 51f-a [facility] 20:00:00 20:00:00 (Reason: usama Nolasco MD ec7-469b-b l HTn , d10-76fuw7 Linda nn Thyroid 948146 and cholestero l ) 2015-10-04 2015-10-04 3 Months nullFlavo Bria, 6d134 17b-4 [facility] 20:00:00 20:00:00 (Reason: usama Nolasco MD 17a-498d-9 l HTn , 579-fddf90 Linda nn Thyroid 963341 and cholestero l ) 2015-10-04 2015-10-04 3 Months nullFlavo Bria, e1015 332-3 [facility] 20:00:00 20:00:00 (Reason: usama Nolasco MD ea7-42b6-9 l HTn , ea6-s45300 Linda nn Thyroid 16c46e and cholestero l ) 2015-10-04 2015-10-04 3 Months nullFlavo Bria, 8051e 85e-c [facility] 20:00:00 20:00:00 (Reason: usama Nolasco MD 321-4623-b l HTn , ce9-d8fb83 Linda nn Thyroid 3fffe9 and cholestero l ) 2015-10-04 2015-10-04 3 Months nullFlavo Bria, df55e 51f-a [facility] 20:00:00 20:00:00 (Reason: usama Nolasco MD ec7-469b-b l HTn , i29-42uww2 Linda nn Thyroid 340725 and cholestero l ) 2015-10-04 2015-10-04 3 Months nullFlavo Bria, 6d134 17b-4 [facility] 20:00:00 20:00:00 (Reason: usama Nolasco MD 17a-498d-9 l HTn , 579-fddf90 Linda nn Thyroid 557116 and cholestero l ) 2015-10-04 2015-10-04 3 Months nullFlavo Bria, 0f9d9 737-0 [facility] 19:00:00 19:00:00 (Reason: usama Nolasco MD 15b-4e5b-a l HTn , 3y3-o1hay2 Linda nn Thyroid e6fbd7 and cholestero l ) 2015-10-04 2015-10-04 3 Months nullFlavo Bria, 8487a 7f8-f [facility] 19:00:00 19:00:00 (Reason: usama Nolasco MD 08f-4508-a l HTn , 9h6-891s0z Linda nn Thyroid py1350 and cholestero l ) 2015-10-04 2015-10-04 3 Months nullFlavo Bria, 0f9d9 737-0 [facility] 19:00:00 19:00:00 (Reason: usama Nolasco MD 15b-4e5b-a l HTn , 5p2-p8jsv5 Linda nn Thyroid e6fbd7 and cholestero l ) 2015-10-04 2015-10-04 3 Months nullFlavo Bria, 8487a 7f8-f [facility] 19:00:00 19:00:00 (Reason: usama Nolasco MD 08f-4508-a l HTn , 3b7-226l6f Linda nn Thyroid bz6492 and cholestero l ) 2015-10-04 2015-10-04 Outpatient Bria Bria, [id number] eClinic 14:00:00 14:00:00 Gaurav Nolasco MD alWork s 2015-07-07 2015-07-07 4 Weeks nullFlavo Bria, 250986 b9-9 [facility] 20:15:00 20:15:00 (Reason: usama Nolasco MD 72e-43c7-a l Blood ec6-722137 Linda nn pressure ) 308fe3 2015-07-07 2015-07-07 4 Weeks nullFlavo Bria, 7b4f79 0f-e [facility] 20:15:00 20:15:00 (Reason: usama Nolasco MD t26-75cw-d l Blood 0ef-5640ff Linda nn pressure ) c708fa 2015-07-07 2015-07-07 4 Weeks nullFlavo Bria, 9cd3e3 bf-1 [facility] 20:15:00 20:15:00 (Reason: usama Nolasco MD 7fe-4df3-a l Blood 2u3-2731i5 Linda nn pressure ) 6k5552 2015-07-07 2015-07-07 4 Weeks nullFlavo Bria, 83q288 24-8 [facility] 20:15:00 20:15:00 (Reason: usama Nolasco MD 0bf-4152-8 l Blood 750-512326 Linda nn pressure ) 76b0b4 2015-07-07 2015-07-07 4 Weeks nullFlavo Bria, 070972 b9-9 [facility] 20:15:00 20:15:00 (Reason: usama Nolasco MD 72e-43c7-a l Blood ec6-934674 Linda nn pressure ) 308fe3 2015-07-07 2015-07-07 4 Weeks nullFlavo Bria, 7b4f79 0f-e [facility] 20:15:00 20:15:00 (Reason: usama Nolasco MD i59-76fp-d l Blood 0ef-5640ff Linda nn pressure ) c708fa 2015-07-07 2015-07-07 4 Weeks nullFlavo Bria, 9cd3e3 bf-1 [facility] 20:15:00 20:15:00 (Reason: usama Nolasco MD 7fe-4df3-a l Blood 4x8-8662f9 Linda nn pressure ) 2k1570 2015-07-07 2015-07-07 4 Weeks nullFlavo Bria, 95r153 24-8 [facility] 20:15:00 20:15:00 (Reason: usama Nolasco MD 0bf-4152-8 l Blood 750-674434 Linda nn pressure ) 76b0b4 2015-07-07 2015-07-07 4 Weeks nullFlavo Bria, 9b9e1e a8-b [facility] 19:15:00 19:15:00 (Reason: usama Nolasco MD db5-426c-8 l Blood 772-5fc6dd Linda nn pressure ) 4cc51f 2015-07-07 2015-07-07 4 Weeks nullFlavo Bria, 96b6b9 a9-5 [facility] 19:15:00 19:15:00 (Reason: usama Nolasco MD 69a-4ec5-9 l Blood 08f-9e64e2 Linda nn pressure ) 6be5de 2015-07-07 2015-07-07 4 Weeks nullFlavo Bria, 29x278 55-2 [facility] 19:15:00 19:15:00 (Reason: usama Nolasco MD 5cb-4adc-8 l Blood bab-j14465 Linda nn pressure ) ca8fd7 2015-07-07 2015-07-07 4 Weeks nullFlavo Bria, 9b9e1e a8-b [facility] 19:15:00 19:15:00 (Reason: usama Nolasco MD db5-426c-8 l Blood 772-5fc6dd Linda nn pressure ) 4cc51f 2015-07-07 2015-07-07 4 Weeks nullFlavo Bria, 96b6b9 a9-5 [facility] 19:15:00 19:15:00 (Reason: usama Nolasco MD 69a-4ec5-9 l Blood 08f-9e64e2 Linda nn pressure ) 6be5de 2015-07-07 2015-07-07 4 Weeks nullFlavo Bria, 05m011 55-2 [facility] 19:15:00 19:15:00 (Reason: usama Nolasco MD 5cb-4adc-8 l Blood bab-f02455 Linda nn pressure ) ca8fd7 2015-07-07 2015-07-07 Outpatient Bria Fraser, [id number] eClinic 14:15:00 14:15:00 Gaurav Nolasco MD alWork s 2015-06-07 2015-06-07 3m x nullFlavo Bria, 4c5958 bb-7 [facility] 20:00:00 20:00:00 thyroid r Gaurav GRANT 4b8-56lz-6 l f98-6wp1s1 Linda nn 05b8dd 2015-06-07 2015-06-07 3m x nullFlavo Bria, gj5937 1c-3 [facility] 20:00:00 20:00:00 thyroid r Gaurav GRANT 4ab-40d3-8 l o1y-o00839 Linda nn cf7e1f 2015-06-07 2015-06-07 3m x nullFlavo Bria, qig073 8b-5 [facility] 20:00:00 20:00:00 thyroid r Gaurav GRANT 8z7-31xk-8 l 0f6-0qbv21 Linda nn c6a63d 2015-06-07 2015-06-07 3m x nullFlavo Bria, 7c97be 85-8 [facility] 20:00:00 20:00:00 thyroid r Gaurav GRANT 6cf-4b9f-b l bfd-5545d2 Linda nn 8cf8c1 2015-06-07 2015-06-07 3m x nullFlavo Bria, 6o5093 bb-7 [facility] 20:00:00 20:00:00 thyroid r Gaurav GRANT 1x9-91qf-7 l x53-7cc6e5 Linda nn 05b8dd 2015-06-07 2015-06-07 3m x nullFlavo Bria, hg0348 1c-3 [facility] 20:00:00 20:00:00 thyroid r Gaurav GRANT 4ab-40d3-8 l y4v-u54379 Linda nn cf7e1f 2015-06-07 2015-06-07 3m x nullFlavo Bria, lbu688 8b-5 [facility] 20:00:00 20:00:00 thyroid r Gaurav GRANT 4n3-94uf-1 l 9w8-9skx03 Linda nn c6a63d 2015-06-07 2015-06-07 3m x nullFlavo Bria, 7c97be 85-8 [facility] 20:00:00 20:00:00 thyroid usama Nolasco MD 6cf-4b9f-b l bfd-5545d2 Linda nn 8cf8c1 2015-06-07 2015-06-07 3m x nullFlavo Bria, 5021b4 89-c [facility] 19:00:00 19:00:00 thyroid usama Nolasco MD 940-489d-8 l ae8-4k017y Linda nn 84cf8c 2015-06-07 2015-06-07 3m x nullFlavo Bria, b27ca9 b9-e [facility] 19:00:00 19:00:00 thyroid usama Nolasco MD 04a-4689-8 l 5ff-a93b4b Linda nn 36bb32 2015-06-07 2015-06-07 3m x nullFlavo Bria, a64a79 ef-6 [facility] 19:00:00 19:00:00 thyroid usama Nolasco MD dc9-4127-a l t26-45812d Linda nn 68x850 2015-06-07 2015-06-07 3m x nullFlavo Bria, 1215ed 22-f [facility] 19:00:00 19:00:00 thyroid usama Nolasco MD 81c-48e9-a l 021-9j310e Linda nn bd4c6c 2015-06-07 2015-06-07 3m x nullFlavo Bria, 5021b4 89-c [facility] 19:00:00 19:00:00 thyroid usama Nolasco MD 940-489d-8 l ae8-6v849s Linda nn 84cf8c 2015-06-07 2015-06-07 3m x nullFlavo Bria, b27ca9 b9-e [facility] 19:00:00 19:00:00 thyroid usama Nolasco MD 04a-4689-8 l 5ff-a93b4b Linda nn 36bb32 2015-06-07 2015-06-07 3m x nullFlavo Bria, a64a79 ef-6 [facility] 19:00:00 19:00:00 thyroid usama Nolasco MD dc9-4127-a l t84-50914t Linda nn 40u685 2015-06-07 2015-06-07 3m x nullFlavreji Fraser, 1215ed 22-f [facility] 19:00:00 19:00:00 thyroid usama Nolasco MD 81c-48e9-a l 021-4r366g Linda nn bd4c6c 2015-06-07 2015-06-07 [facility] Bria Fraser, 185 967 eClinic 14:00:00 14:00:00 Gaurav Nolasco MD alWork s 2015-03-08 2015-03-08 4 Months nullFlavo Bria, 41986 1d3-6 [facility] 15:00:00 15:00:00 (Reason: usama Nolasco MD 312-46ee-8 l Thyroid 088-54b0eb Linda nn and 4214fc hyperlipid emia ) 2015-03-08 2015-03-08 4 Months nullFlavo Bria, 6ce1f 091-a [facility] 15:00:00 15:00:00 (Reason: usama Nolasco MD l4a-5z5l-4 l Thyroid q66-c95e97 Linda nn and 545f6c hyperlipid emia ) 2015-03-08 2015-03-08 4 Months nullFlavo Bria, 13848 441-6 [facility] 15:00:00 15:00:00 (Reason: usama Nolasco MD 44d-4e7e-8 l Thyroid p91-a7b05z Linda nn and 5a4c54 hyperlipid emia ) 2015-03-08 2015-03-08 4 Months nullFlavo Bria, 11b79 b1d-5 [facility] 15:00:00 15:00:00 (Reason: usama Nolasco MD f73-1606-r l Thyroid 2n4-39q028 Linda nn and b18dc8 hyperlipid emia ) 2015-03-08 2015-03-08 4 Months nullFlavo Bria, 8e830 7f9-8 [facility] 15:00:00 15:00:00 (Reason: usama Nolasco MD af3-42c0-9 l Thyroid 20e-2db7b4 Linda nn and da5ea9 hyperlipid emia ) 2015-03-08 2015-03-08 4 Months nullFlavo Bria, 32429 1d3-6 [facility] 15:00:00 15:00:00 (Reason: usama Nolasco MD 312-46ee-8 l Thyroid 088-54b0eb Linda nn and 4214fc hyperlipid emia ) 2015-03-08 2015-03-08 4 Months nullFlavo Bria, 6ce1f 091-a [facility] 15:00:00 15:00:00 (Reason: usama Nolasco MD l0t-7p6a-9 l Thyroid y64-i43l40 Linda nn and 545f6c hyperlipid emia ) 2015-03-08 2015-03-08 4 Months nullFlavo Bria, 83948 441-6 [facility] 15:00:00 15:00:00 (Reason: usama Nolasco MD 44d-4e7e-8 l Thyroid p25-d6m88d Linda nn and 5a4c54 hyperlipid emia ) 2015-03-08 2015-03-08 4 Months nullFlavo Bria, 11b79 b1d-5 [facility] 15:00:00 15:00:00 (Reason: usama Nolasco MD h66-2352-u l Thyroid 7u5-54u037 Linda nn and b18dc8 hyperlipid emia ) 2015-03-08 2015-03-08 4 Months nullFlavo Bria, 8e830 7f9-8 [facility] 15:00:00 15:00:00 (Reason: usama Nolasco MD af3-42c0-9 l Thyroid 20e-2db7b4 Linda nn and da5ea9 hyperlipid emia ) 2015-03-08 2015-03-08 4 Months nullFlavo Bria, 5e859 856-a [facility] 14:00:00 14:00:00 (Reason: usama Nolasco MD 990-4176-9 l Thyroid 79d-3327fc Linda nn and 17bcb3 hyperlipid emia ) 2015-03-08 2015-03-08 4 Months nullFlavo Bria, 1349c 4b3-4 [facility] 14:00:00 14:00:00 (Reason: usama Nolasco MD 81e-42a8-a l Thyroid 08e-bd53ce Linda nn and f3b46c hyperlipid emia ) 2015-03-08 2015-03-08 4 Months nullFlavo Bria, c6b99 a01-9 [facility] 14:00:00 14:00:00 (Reason: usama Nolasco MD i1g-8m63-n l Thyroid 5i7-cily71 Linda nn and a02bba hyperlipid emia ) 2015-03-08 2015-03-08 4 Months nullFlavo Bria, e7e24 3e3-5 [facility] 14:00:00 14:00:00 (Reason: usama Nolasco MD r8d-3wk4-0 l Thyroid 7k1-8kg76m Linda nn and 9md076 hyperlipid emia ) 2015-03-08 2015-03-08 4 Months nullFlavo Bria, 5e859 856-a [facility] 14:00:00 14:00:00 (Reason: usama Nolasco MD 990-4176-9 l Thyroid 79d-3327fc Linda nn and 17bcb3 hyperlipid emia ) 2015-03-08 2015-03-08 4 Months nullFlavo Bria, 1349c 4b3-4 [facility] 14:00:00 14:00:00 (Reason: usama Nolasco MD 81e-42a8-a l Thyroid 08e-bd53ce Linda nn and f3b46c hyperlipid emia ) 2015-03-08 2015-03-08 4 Months nullFlavo Bria, c6b99 a01-9 [facility] 14:00:00 14:00:00 (Reason: usama wolf8a-4b15-b l Thyroid 8c9-bsmp95 Linda nn and a02bba hyperlipid emia ) 2015-03-08 2015-03-08 4 Months nullFlavo Bria, e7e24 3e3-5 [facility] 14:00:00 14:00:00 (Reason: usama Nolasco MD m6c-8gf7-2 l Thyroid 2m9-3vd24f Linda nn and 8dh334 hyperlipid emia ) 2015-03-08 2015-03-08 Outpatient [facility], 174 984 [facility] 09:00:00 09:00:00 Gaurav Nolasco MD alWork s 2015-02-23 2015-02-23 Unknown nullFlavo Bria, 7ff0e3 49-7 [facility] 15:30:00 15:30:00 usama Nolasco MD 012-4353-a l 299-0beab9 Linda nn 4f8f58 2015-02-23 2015-02-23 Unknown nullFlavo Bria, [id number] b0-3 [facility] 15:30:00 15:30:00 r Gaurav GRANT k4o-0f3k-9 l 46e-08eefa Linda nn a0afed 2015-02-23 2015-02-23 Unknown nullFlavo Bria, 164d94 ba-5 [facility] 15:30:00 15:30:00 r Gaurav GRANT 409-4151-b l 5a5-4462ot Linda nn 8bdf0f 2015-02-23 2015-02-23 Unknown nullFlavo Bria, 94ff27 3b-7 [facility] 15:30:00 15:30:00 r Gaurav GRANT 0y1-1772-4 l 2i0-d66lgy Linda nn 6e10f7 2015-02-23 2015-02-23 Unknown nullFlavo Bria, 5fa15e b7-f [facility] 15:30:00 15:30:00 r Gaurav GRANT 030-47e4-a l 563-4bcd82 Linda nn a0ba4c 2015-02-23 2015-02-23 Unknown nullFlavo Bria, 7ff0e3 49-7 [facility] 15:30:00 15:30:00 r Gaurav GRANT 012-4353-a l 299-0beab9 Linda nn 4f8f58 2015-02-23 2015-02-23 Unknown nullFlavo Bria, zqa756 72-6 [facility] 15:30:00 15:30:00 r Gaurav GRANT bf7-4829-b l 964-ebe01f Linda nn ua0073 2015-02-23 2015-02-23 Unknown nullFlavo Bria, 91-3 [facility] 15:30:00 15:30:00 r Gaurav GRANT v98-76l7-u l 607-f397f8 Linda nn d7c7f3 2015-02-23 2015-02-23 Unknown nullFlavo Bria, 718856 e2-a [facility] 15:30:00 15:30:00 r Gaurav GRANT erin-4ad7-9 l v5j-5165q3 Linda nn 633fea 2015-02-23 2015-02-23 Unknown nullFlavo Bria, 9839bc df-e [facility] 15:30:00 15:30:00 r Gaurav GRANT i1b-8m15-r l cca-cdaab9 Linda nn e79ab5 2015-02-23 2015-02-23 Unknown nullFlavo Bria, 87847n b0-3 [facility] 15:30:00 15:30:00 r Gaurav GRANT e5d-3w1d-6 l 46e-08eefa Linda nn a0afed 2015-02-23 2015-02-23 Unknown nullFlavo Bria, 164d94 ba-5 [facility] 15:30:00 15:30:00 r Gaurav GRANT 409-4151-b l 7f9-0291ng Linda nn 8bdf0f 2015-02-23 2015-02-23 Unknown nullFlavo Bria, 94ff27 3b-7 [facility] 15:30:00 15:30:00 r Guarav GRANT 3r8-5650-8 l 8o6-a29edq Linda nn 6e10f7 2015-02-23 2015-02-23 Unknown nullFlavo Bria, 5fa15e b7-f [facility] 15:30:00 15:30:00 r Gaurav GRANT 030-47e4-a l 563-4bcd82 Linda nn a0ba4c 2015-02-23 2015-02-23 Unknown nullFlavo Bria, zcb109 72-6 [facility] 15:30:00 15:30:00 r Gaurav GRANT bf7-4829-b l 964-ebe01f Linda nn uv0346 2015-02-23 2015-02-23 Unknown nullFlavo Bria, 91-3 [facility] 15:30:00 15:30:00 r Gaurav GRANT q75-25w4-t l 607-f397f8 Linda nn d7c7f3 2015-02-23 2015-02-23 Unknown nullFlavo Bria, 323344 e2-a [facility] 15:30:00 15:30:00 r Gaurav GRANT erin-4ad7-9 l p4q-9757m1 Linda nn 633fea 2015-02-23 2015-02-23 Unknown nullFlavo Bria, 9839bc df-e [facility] 15:30:00 15:30:00 r Gaurav GRANT j9y-0b96-a l cca-cdaab9 Linda nn e79ab5 2015-02-23 2015-02-23 Unknown nullFlavo Bria, z0y622 34-b [facility] 14:30:00 14:30:00 r Garuav GRANT 78f-4e55-9 l 200-cf4d92 Linda nn 1a961l 2015-02-23 2015-02-23 Unknown nullFlavo Bria, px0639 34-d [facility] 14:30:00 14:30:00 r Gaurav GRANT 807-495b-8 l 15d-4e29e0 Linda nn [id number] 2015-02-23 2015-02-23 Unknown nullFlavo Bria, 92b3c6 cf-0 [facility] 14:30:00 14:30:00 r Gaurav GRANT 03f-49a6-8 l [id number]-w29133 Linda nn [id number] 2015-02-23 2015-02-23 Unknown nullFlavo Bria, 521ce0 47-5 [facility] 14:30:00 14:30:00 r Gaurav GRANT v11-10rl-9 l 3cb-19d5e3 Linda nn [id number] 2015-02-23 2015-02-23 Unknown nullFlavo Bria, y9v256 34-b [facility] 14:30:00 14:30:00 r Gaurav GRANT 78f-4e55-9 l 200-cf4d92 Linda nn 3r917g 2015-02-23 2015-02-23 Unknown nullFlavo Bria, [id number] 34-d [facility] 14:30:00 14:30:00 r Gaurav GRANT 807-495b-8 l 15d-4e29e0 Linda nn q27198 2015-02-23 2015-02-23 Unknown nullFlavo Bria, 92b3c6 cf-0 [facility] 14:30:00 14:30:00 r Gaurav GRANT 03f-49a6-8 l 736-z86872 Linda nn z48483 2015-02-23 2015-02-23 Unknown nullFlavo Bria, 521ce0 47-5 [facility] 14:30:00 14:30:00 r Gaurav GRANT n18-32ps-2 l 3cb-19d5e3 Linda nn k48955 2015-02-23 2015-02-23 Outpatient Bria Fraser, 184 940 e[facility]inic 09:30:00 09:30:00 Gaurav Nolasco MD alWork s 2015-02-11 2015-02-11 Unknown nullFlavo Bria, 06ea93 42-1 [facility] 00:31:00 00:31:00 r Gaurav GRANT 8z3-53x5-s l 88c-ff4136 Linda nn 0o414r 2015-02-11 2015-02-11 Unknown nullFlavo Bria, j35164 fa-9 [facility] 00:31:00 00:31:00 r Gaurav GRANT 120-4739-b l 129-0079af Linda nn 95fc4f 2015-02-11 2015-02-11 Unknown nullFlavo Bria, 41828w db-3 [facility] 00:31:00 00:31:00 r Gaurav GRANT 807-427a-b l r24-3kx0n2 Linda nn f2ad18 2015-02-11 2015-02-11 Unknown nullFlavo Bria, c5dedb a0-0 [facility] 00:31:00 00:31:00 r Gaurav GRANT 567-4215-9 l 540-8cf7b8 Linda nn d51ff2 2015-02-11 2015-02-11 Unknown nullFlavo Bria, j68529 61-3 [facility] 00:31:00 00:31:00 r Gaurav GRANT ff0-4b55-8 l 554-34w225 Linda nn 6b82eb 2015-02-11 2015-02-11 Unknown nullFlavo Bria, 4a8adc a4-8 [facility] 00:31:00 00:31:00 r Gaurav GRANT 338-4ec9-a l 6j3-75dd33 Linda nn 2fcad7 2015-02-11 2015-02-11 Unknown nullFlavo Bria, 8f5f7c 38-1 [facility] 00:31:00 00:31:00 r Gaurav GRANT 356-4309-9 l bde-50fa6a Linda nn 3ac40f 2015-02-11 2015-02-11 Unknown nullFlavo Bria, 5eff1c c7-d [facility] 00:31:00 00:31:00 r Gaurav GRANT ce9-4034-9 l 337-8ad26c Linda nn i37512 2015-02-11 2015-02-11 Unknown nullFlavo Bria, 067a29 d0-8 [facility] 00:31:00 00:31:00 r Gaurav GRANT fe2-4cc6-a l 7df-49e35f Linda nn b2e5af 2015-02-11 2015-02-11 Unknown nullFlavo Bria, 369bed b7-9 [facility] 00:31:00 00:31:00 r Gaurav GRANT trenton-4194-9 l ec4-852ceb Linda nn x7829n 2015-02-11 2015-02-11 Unknown nullFlavo Bria, cb5db9 f8-3 [facility] 00:31:00 00:31:00 r Gaurav GRANT n1i-3rsm-5 l 85b-6ecc81 Linda nn 377ea3 2015-02-11 2015-02-11 Unknown nullFlavo Bria, 315f29 2a-0 [facility] 00:31:00 00:31:00 r Gaurav GRANT cf9-4538-a l 79d-f5e2d1 Linda nn 5f9bb2 2015-02-11 2015-02-11 Unknown Shadeo Bria, f574d9 b8-1 [facility] 00:31:00 00:31:00 r Gaurav GRANT 129-4d70-b l 5c7-t5242m Linda nn e38772 2015-02-11 2015-02-11 Unknown nullFlavo Bria, 06ea93 42-1 [facility] 00:31:00 00:31:00 r Gaurav GRANT 1n7-70i7-s l 88c-sm5299 Linda nn 4d370x 2015-02-11 2015-02-11 Unknown nullFlavo Bria, w95364 fa-9 [facility] 00:31:00 00:31:00 r Gaurav GRANT 120-4739-b l 129-0079af Linda nn 95fc4f 2015-02-11 2015-02-11 Unknown nullFlavo Bria, 30448f db-3 [facility] 00:31:00 00:31:00 r Gaurav GRANT 807-427a-b l m96-0ws7s8 Linda nn f2ad18 2015-02-11 2015-02-11 Unknown nullFlavo Bria, c5dedb a0-0 [facility] 00:31:00 00:31:00 r Gaurav GRANT 567-4215-9 l 540-8cf7b8 Linda nn d51ff2 2015-02-11 2015-02-11 Unknown nullFlavo Bria, x37895 61-3 [facility] 00:31:00 00:31:00 r Gaurav GRANT ff0-4b55-8 l 554-78s780 Linda nn 6b82eb 2015-02-11 2015-02-11 Unknown nullFlavo Bria, 4a8adc a4-8 [facility] 00:31:00 00:31:00 r Gaurav GRANT 338-4ec9-a l 6c5-96js32 Linda nn 2fcad7 2015-02-11 2015-02-11 Unknown nullFlavo Bria, 8f5f7c 38-1 [facility] 00:31:00 00:31:00 r Gaurav GRANT 356-4309-9 l bde-50fa6a Linda nn 3ac40f 2015-02-11 2015-02-11 Unknown nullFlavo Bria, 5eff1c c7-d [facility] 00:31:00 00:31:00 r Gaurav GRANT ce9-4034-9 l 337-8ad26c Linda nn b82466 2015-02-11 2015-02-11 Unknown nullFlavo Bria, 067a29 d0-8 [facility] 00:31:00 00:31:00 r Gaurav GRANT fe2-4cc6-a l 7df-49e35f Linda nn b2e5af 2015-02-11 2015-02-11 Unknown nullFlavo Bria, 369bed b7-9 [facility] 00:31:00 00:31:00 r Gaurav GRANT trenton-4194-9 l ec4-852ceb Linda nn t7242e 2015-02-11 2015-02-11 Unknown nullFlavo Bria, cb5db9 f8-3 [facility] 00:31:00 00:31:00 r Gaurav GRANT c9y-2tej-0 l 85b-6ecc81 Linda nn 377ea3 2015-02-11 2015-02-11 Unknown nullFlavo Bria, 315f29 2a-0 [facility] 00:31:00 00:31:00 r Gaurav GRANT cf9-4538-a l 79d-f5e2d1 Linda nn 5f9bb2 2015-02-11 2015-02-11 Unknown nullFlavo Bria, f574d9 b8-1 [facility] 00:31:00 00:31:00 r Gaurav GRANT 129-4d70-b l 3u1-a0579p Linda nn m20895 2015-02-10 2015-02-10 Unknown nullFlavo Bria, 17dd62 30-d [facility] 23:31:00 23:31:00 r Gaurav GRANT 029-48b9-8 l 028-l9f622 Linda nn 1c5acb 2015-02-10 2015-02-10 Unknown nullFlavo Bria, e0b4ae 48-d [facility] 23:31:00 23:31:00 r Gaurav GRANT 832-4fe1-9 l 737-7c81c2 Linda nn r8207k 2015-02-10 2015-02-10 Unknown nullFlavo Bria, 0562b1 c8-e [facility] 23:31:00 23:31:00 r Gaurav GRANT 40b-4ec5-a l 70b-9a7b6f Linda nn 976228 0264-11-04 2015-02-10 Unknown nullFlavo Bria, 01080x bc-0 [facility] 23:31:00 23:31:00 r Gaurav GRANT 094-45f1-b l eae-a9m838 Linda nn 55a4c7 2015-02-10 2015-02-10 Unknown nullFlavo Bria, 17dd62 30-d [facility] 23:31:00 23:31:00 r Gaurav GRANT 029-48b9-8 l 028-t6o287 Linda nn 1c5acb 2015-02-10 2015-02-10 Unknown nullFlavo Bria, e0b4ae 48-d [facility] 23:31:00 23:31:00 r Gaurav GRANT 832-4fe1-9 l 737-7c81c2 Linda nn t9662j 2015-02-10 2015-02-10 Unknown nullFlavo Bria, 0562b1 c8-e [facility] 23:31:00 23:31:00 r Gaurav GRANT 40b-4ec5-a l 70b-9a7b6f Linda nn 461521 6758-11-04 2015-02-10 Unknown Sonya Fraser, 75534p bc-0 [facility] 23:31:00 23:31:00 r Gaurav GRANT 094-45f1-b l eae-s4k938 Linda nn 55a4c7 2015-02-10 2015-02-10 Outpatient Bria Fraser, 183 791 eClinic 18:31:00 18:31:00 Gaurav Nolasco MD alWork s 2015-02-08 2015-02-08 LAB ORDER Sonya Fraser, ee4 78edc-f [facility] 22:08:00 22:08:00 r Gaurav GRANT o38-7658-2 l 163-e3c99e Linda nn h1x708 2015-02-08 2015-02-08 LAB ORDER Sonya Fraser, 1db 123ed-3 [facility] 22:08:00 22:08:00 r Gaurav GRANT 5i4-76p1-0 l 243-52f757 Linda nn 1c06e1 2015-02-08 2015-02-08 LAB ORDER Sonya Fraser, 687 m81ul-7 [facility] 22:08:00 22:08:00 r Gaurav GRANT 570-4722-9 l 92e-f7af1f Linda nn 8h906b 2015-02-08 2015-02-08 LAB ORDER Sonya Fraser, c86 216k2-x [facility] 22:08:00 22:08:00 r Gaurav GRANT acc-4ef9-8 l ef3-441448 Linda nn a07f05 2015-02-08 2015-02-08 LAB ORDER Sonya Fraser, b46 g3ai1-7 [facility] 22:08:00 22:08:00 r Gaurav GRANT j33-4277-w l y3l-6s347p Linda nn 9adb24 2015-02-08 2015-02-08 LAB ORDER Soyna Fraser, f94 89292-8 [facility] 22:08:00 22:08:00 r Gaurav GRANT fc2-4369-b l cca-69516n Linda nn z3i839 2015-02-08 2015-02-08 LAB ORDER nullFlavo Bria, e4a a30p9-v [facility] 22:08:00 22:08:00 r Gaurav GRANT m82-19h0-k l 0g4-5u38co Linda nn 865c08 2015-02-08 2015-02-08 LAB ORDER nullFlavo Bria, 37c 7l691-x [facility] 22:08:00 22:08:00 r Gaurav GRANT z5w-0955-z l 7f8-5x9455 Linda nn 0eb1be 2015-02-08 2015-02-08 LAB ORDER nullFlavo Bria, 4ab t44se-g [facility] 22:08:00 22:08:00 r Gaurav GRANT ae7-492e-b l c67-t7x8f7 Linda nn aa65be 2015-02-08 2015-02-08 LAB ORDER nullFlavo Bria, 55a aca14-2 [facility] 22:08:00 22:08:00 r Gaurav GRANT 2h2-7d6z-v l 388-375967 Linda nn d0f3c3 2015-02-08 2015-02-08 LAB ORDER nullFlavo Bria, 645 6jcl7-9 [facility] 22:08:00 22:08:00 r Gaurav GRANT 267-44a7-a l 606-h6728q Linda nn n3p921 2015-02-08 2015-02-08 LAB ORDER nullFlavo Bria, ff7 02acb-4 [facility] 22:08:00 22:08:00 r Gaurav GRANT 5cc-4428-a l s5y-y02l94 Linda nn 846af4 2015-02-08 2015-02-08 LAB ORDER nullFlavo Bria, c92 e858q-3 [facility] 22:08:00 22:08:00 r Gaurav GRANT 701-4e4d-9 l 615-5bq172 Linda nn 5pb521 2015-02-08 2015-02-08 LAB ORDER nullFlavo Bria, 06b 85l36-3 [facility] 22:08:00 22:08:00 r Gaurav GRANT 235-4f59-8 l 4w9-04j086 Linda nn 69a5b7 2015-02-08 2015-02-08 LAB ORDER Sonya Fraser, ee4 78edc-f [facility] 22:08:00 22:08:00 r Gaurav GRANT v74-3945-2 l 163-e3c99e Linda nn w1s875 2015-02-08 2015-02-08 LAB ORDER Sonya Fraser, 1db 123ed-3 [facility] 22:08:00 22:08:00 r Gaurav GRANT 0h2-48h4-0 l 243-51u529 Linda nn 1c06e1 2015-02-08 2015-02-08 LAB ORDER Sonya Fraser, 687 w93zv-6 [facility] 22:08:00 22:08:00 r Gaurav GRANT 570-4722-9 l 92e-f7af1f Linda nn 1r392h 2015-02-08 2015-02-08 LAB ORDER Sonya Fraser, c86 259t4-r [facility] 22:08:00 22:08:00 r Gaurav GRANT acc-4ef9-8 l ef3-355720 Linda nn a07f05 2015-02-08 2015-02-08 LAB ORDER Sonya Fraser, b46 q7kj5-9 [facility] 22:08:00 22:08:00 r Gaurav GRANT l90-2815-n l z5t-8t895f Linda nn 9adb24 2015-02-08 2015-02-08 LAB ORDER Sonya Fraser, f94 33017-7 [facility] 22:08:00 22:08:00 r Gaurav GRANT fc2-4369-b l cca-33655n Linda nn z1w841 2015-02-08 2015-02-08 LAB ORDER Sonya Fraser, e4a u98o9-b [facility] 22:08:00 22:08:00 r Gaurav GRANT s26-25n2-v l 4z7-4a18it Linda nn 865c08 2015-02-08 2015-02-08 LAB ORDER Sonya Fraser, 37c 0q920-v [facility] 22:08:00 22:08:00 r Gaurav GRANT f3a-3911-r l 9f2-7q5883 Linad nn 0eb1be 2015-02-08 2015-02-08 LAB ORDER Sonya Fraser, 4ab a95jg-w [facility] 22:08:00 22:08:00 r Gaurav GRANT ae7-492e-b l d79-v4l4g5 Linda nn aa65be 2015-02-08 2015-02-08 LAB ORDER Shadeo Bria, 55a aca14-2 [facility] 22:08:00 22:08:00 r Gaurav GRANT 7u5-3n2y-b l 388-757153 Linda nn d0f3c3 2015-02-08 2015-02-08 LAB ORDER nullNicko Bria, 645 4idy6-9 [facility] 22:08:00 22:08:00 r Gaurav GRANT 267-44a7-a l 606-g8831t Linda nn p8q712 2015-02-08 2015-02-08 LAB ORDER Shadeo Bria, ff7 02acb-4 [facility] 22:08:00 22:08:00 r Gaurav GRANT 5cc-4428-a l n1w-q89p42 Linda nn 846af4 2015-02-08 2015-02-08 LAB ORDER Sonya Fraser, c92 m278r-7 [facility] 22:08:00 22:08:00 r Gaurav GRANT 701-4e4d-9 l 615-4uq608 Linda nn 9ns354 2015-02-08 2015-02-08 LAB ORDER nullNicko Bria, 06b 04h16-7 [facility] 22:08:00 22:08:00 r Gaurav GRANT 235-4f59-8 l 8s9-01w876 Linda nn 69a5b7 2015-02-08 2015-02-08 LAB ORDER vicFlavo Bria, f4e 5tk81-1 [facility] 21:08:00 21:08:00 r Gaurav GRANT 05f-49ec-8 l 5l5-2p7971 Linda nn 509377 0397-11-02 2015-02-08 LAB ORDER Shadeo Bria, 2fb m810i-7 [facility] 21:08:00 21:08:00 r Gaurav GRANT fec-42ec-a l 456-a931cd Linda nn 2a32ba 2015-02-08 2015-02-08 LAB ORDER vicFlavo Bria, 5b8 adfb7-e [facility] 21:08:00 21:08:00 r Gaurav GRANT 323-4c09-9 l 2k5-41cg16 Linda nn k7033h 2015-02-08 2015-02-08 LAB ORDER vicFlavo Bria 90a 4754c-d [facility] 21:08:00 21:08:00 r Gaurav odonnella-435f-a l ffb-9f3b23 Linda nn 4cd7d4 2015-02-08 2015-02-08 LAB ORDER nullFlavo Bria, f4e 7np60-6 [facility] 21:08:00 21:08:00 r Gaurav GRANT 05f-49ec-8 l 8z3-5c0862 Linda nn 568081 6423-11-02 2015-02-08 LAB ORDER nullFlavo Bria, 2fb m925s-5 [facility] 21:08:00 21:08:00 r Gaurav GRANT fec-42ec-a l 456-a931cd Linda nn 2a32ba 2015-02-08 2015-02-08 LAB ORDER nullFlavo Bria, 5b8 adfb7-e [facility] 21:08:00 21:08:00 r Gaurav GRANT 323-4c09-9 l 3j1-26ce44 Linda nn o3657r 2015-02-08 2015-02-08 LAB ORDER vicFlavo Bria, 90a 4754c-d [facility] 21:08:00 21:08:00 r Gaurav odonnella-435f-a l ffb-9f3b23 Linda nn 4cd7d4 2015-02-08 2015-02-08 Outpatient Bria Fraser, 183 481 eClinic 16:08:00 16:08:00 Gaurav Nolasco MD alWork s 2015-02-05 2015-02-05 Unknown nullFlavo Bria, 7b59d7 bb-9 [facility] 21:25:00 21:25:00 r Gaurav GRANT 304-48ee-9 l bf0-294634 Linda nn hd9327 2015-02-05 2015-02-05 Unknown nullFlavo Bria, 1q5787 e0-d [facility] 21:25:00 21:25:00 r Gaurav GRANT 4ea-4ecb-8 l eff-a2bdfa Linda nn 021ea2 2015-02-05 2015-02-05 Unknown nullFlavo Bria, 4498e5 16-c [facility] 21:25:00 21:25:00 r Gaurav GRANT 716-4445-a l 214-559db7 Linda nn 0c33c4 2015-02-05 2015-02-05 Unknown nullFlavo Bria, 514f25 47-a [facility] 21:25:00 21:25:00 r Gaurav GRANT 492-4ddc-8 l 2y3-q8l63s Linda nn 680ba2 2015-02-05 2015-02-05 Unknown nullFlavo Bria, 6918b5 03-2 [facility] 21:25:00 21:25:00 r Gaurav GRANT g30-2m73-r l 123-2bbdbc Linda nn cc47c3 2015-02-05 2015-02-05 Unknown nullFlavo Bria, 65178y 19-6 [facility] 21:25:00 21:25:00 r Gaurav GRANT q7z-9h25-6 l 8m3-f4x2p3 Linda nn 7p369z 2015-02-05 2015-02-05 Unknown nullFlavo Bria, h9807p b3-5 [facility] 21:25:00 21:25:00 r Gaurav GRANT db7-49a6-8 l fe4-34p786 Linda nn 776272 2388-10-30 2015-02-05 Unknown nullFlavo Bria, 1d97e7 e9-8 [facility] 21:25:00 21:25:00 r Gaurav GRANT i6v-3s5o-o l 7o8-x05106 Linda nn 95feb8 2015-02-05 2015-02-05 Unknown nullFlavo Bria, 5271c5 0f-e [facility] 21:25:00 21:25:00 r Gaurav GRANT 360-4476-a l 1bc-c184fb Linda nn 263202 3700-10-30 2015-02-05 Unknown nullFlavo Bria, 451ee3 8f-3 [facility] 21:25:00 21:25:00 r Gaurav GRANT 49a-4a70-a l 8p0-7d9h21 Linda nn 1701b5 2015-02-05 2015-02-05 Unknown nullFlavo Bria, s08376 37-9 [facility] 21:25:00 21:25:00 r Gaurav GRANT 9df-48f6-a l 601-5f27b5 Linda nn 1c85d3 2015-02-05 2015-02-05 Unknown nullFlavo Bria, eeb4a4 69-2 [facility] 21:25:00 21:25:00 r Gaurav GRANT t47-4aj8-e l 5bf-c41db0 Linda nn sj2462 2015-02-05 2015-02-05 Unknown nullFlavo Bria, 84f2f7 08-3 [facility] 21:25:00 21:25:00 r Gaurav GRANT 0d9-2664-3 l 652-8k033w Linda nn 38dfa8 2015-02-05 2015-02-05 Unknown nullFlavo Bria, e430b7 0b-d [facility] 21:25:00 21:25:00 r Gaurav GRANT ffc-425f-a l db7-88baa9 Linda nn a63f25 2015-02-05 2015-02-05 Unknown nullFlavo Bria, 7b59d7 bb-9 [facility] 21:25:00 21:25:00 r Gaurav GRANT 304-48ee-9 l bf0-740494 Linda nn oe7304 2015-02-05 2015-02-05 Unknown nullFlavo Bria, 2r4648 e0-d [facility] 21:25:00 21:25:00 r Gaurav GRANT 4ea-4ecb-8 l eff-a2bdfa Linda nn 021ea2 2015-02-05 2015-02-05 Unknown nullFlavo Bria, 4498e5 16-c [facility] 21:25:00 21:25:00 r Gaurav GRANT 716-4445-a l 214-559db7 Linda nn 0c33c4 2015-02-05 2015-02-05 Unknown nullFlavo Bria, 514f25 47-a [facility] 21:25:00 21:25:00 r Gaurav GRANT 492-4ddc-8 l 8k6-p0z83m Linda nn 680ba2 2015-02-05 2015-02-05 Unknown nullFlavo Bria, 6918b5 03-2 [facility] 21:25:00 21:25:00 r Gaurav GRANT x50-2o78-i l 123-2bbdbc Linda nn cc47c3 2015-02-05 2015-02-05 Unknown nullFlavo Bria, 77809g 19-6 [facility] 21:25:00 21:25:00 r Gaurav GRANT j4b-5p04-3 l 9u9-o7z2s6 Linda nn 0x994h 2015-02-05 2015-02-05 Unknown nullFlavo Bria, f4828u b3-5 [facility] 21:25:00 21:25:00 r Gaurav GRANT db7-49a6-8 l fe4-29i923 Linda nn 353924 3685-10-30 2015-02-05 Unknown nullFlavo Bria, 1d97e7 e9-8 [facility] 21:25:00 21:25:00 r Gaurav GRANT n4w-2x8u-a l 6s8-i47933 Linda nn 95feb8 2015-02-05 2015-02-05 Unknown nullFlavo Bria, 5271c5 0f-e [facility] 21:25:00 21:25:00 r Gaurav GRANT 360-4476-a l 1bc-c184fb Linda nn 284102 3520-10-30 2015-02-05 Unknown nullFlavo Bria, 451ee3 8f-3 [facility] 21:25:00 21:25:00 r Gaurav GRANT 49a-4a70-a l 3b9-6i0z02 Linda nn 1701b5 2015-02-05 2015-02-05 Unknown nullFlavo Bria, p70696 37-9 [facility] 21:25:00 21:25:00 r Gaurav GRANT 9df-48f6-a l 601-5f27b5 Linda nn 1c85d3 2015-02-05 2015-02-05 Unknown nullFlavo Bria, eeb4a4 69-2 [facility] 21:25:00 21:25:00 r Gaurav GRANT e34-6vf0-o l 5bf-c41db0 Linda nn xq6115 2015-02-05 2015-02-05 Unknown nullFlavo Bria, 84f2f7 08-3 [facility] 21:25:00 21:25:00 r Gaurav GRANT 6p0-4797-8 l 652-6h467n Linda nn 38dfa8 2015-02-05 2015-02-05 Unknown nullFlavo Bria, e430b7 0b-d [facility] 21:25:00 21:25:00 r Gaurav GRANT ffc-425f-a l db7-88baa9 Linda nn a63f25 2015-02-05 2015-02-05 Unknown nullFlavo Bria, bp7326 2a-a [facility] 20:25:00 20:25:00 r Gaurav GRANT h53-10z2-3 l 2fd-a086cd Linda nn 57ab13 2015-02-05 2015-02-05 Unknown nullFlavo Bria, 0ch783 c4-c [facility] 20:25:00 20:25:00 r Gaurav GRANT aec-40ea-8 l 0c6-492lk7 Linda nn da64f3 2015-02-05 2015-02-05 Unknown nullFlavo Bria, 9r372h 82-5 [facility] 20:25:00 20:25:00 r Gaurav GRANT r6l-32as-7 l dd4-2ef3cd Linda nn bfbca7 2015-02-05 2015-02-05 Unknown nullFlavo Bria, 0529a2 47-2 [facility] 20:25:00 20:25:00 r Gaurav GRANT 6f8-2112-4 l 9t9-f08207 Linda nn 2c5dfe 2015-02-05 2015-02-05 Unknown nullFlavo Bria, fj7066 2a-a [facility] 20:25:00 20:25:00 r Gaurav GRANT n86-93e0-5 l 2fd-a086cd Linda nn 57ab13 2015-02-05 2015-02-05 Unknown nullFlavo Bria, 3yr394 c4-c [facility] 20:25:00 20:25:00 r Gaurav GRANT aec-40ea-8 l 8g9-122yf3 Linda nn da64f3 2015-02-05 2015-02-05 Unknown nullFlavo Bria, 8b374j 82-5 [facility] 20:25:00 20:25:00 r Gaurav GRANT g5c-91oy-3 l dd4-2ef3cd Linda nn bfbca7 2015-02-05 2015-02-05 Unknown nullFlavo Bria, 0529a2 47-2 [facility] 20:25:00 20:25:00 r Gaurav GRANT 2o4-2287-7 l 7j0-o45565 Linda nn 2c5dfe 2015-02-05 2015-02-05 Bria Lawrence, 183 293 eClinic 15:25:00 15:25:00 Gaurav Nolasco MD alWork s 2015-02-04 2015-02-04 lab order/ nullFlavo Bria, b8b 3j05u-8 [facility] 20:23:00 20:23:00 x-ray r Gaurav GRANT fe6-4444-a l 678-699e08 Linda nn 6f35a0 2015-02-04 2015-02-04 lab order/ nullFlavo Bria, 8b6 7u650-z [facility] 20:23:00 20:23:00 x-ray r Gaurav GRANT 27d-4a6f-a l ae4-7hn194 Linda nn a49226 2015-02-04 2015-02-04 lab order/ nullFlavo Bria, 7e3 7h520-1 [facility] 20:23:00 20:23:00 x-ray r Gaurav GRANT 032-475b-9 l 6ce-dte385 Linda nn 10946g 2015-02-04 2015-02-04 lab order/ nullFlavo Bria, 582 s2556-9 [facility] 20:23:00 20:23:00 x-ray r Gaurav GRANT 5g8-49u6-u l fe9-7e21d7 Linda nn 4acf3f 2015-02-04 2015-02-04 lab order/ nullFlavo Bria, 6b9 0116d-d [facility] 20:23:00 20:23:00 x-ray r Gaurav GRANT 3bb-4d9a-a l 2bb-ff2b3f Linda nn z3517g 2015-02-04 2015-02-04 lab order/ nullFlavo Bria, c7b u03my-3 [facility] 20:23:00 20:23:00 x-ray r Gaurav GRANT z1v-0y22-8 l 25c-0038af Linda nn f2b3aa 2015-02-04 2015-02-04 lab order/ nullFlavo Bria, 1d1 ao08n-e [facility] 20:23:00 20:23:00 x-ray r Gaurav GRANT 298-4f0c-a l g0i-w14xp3 Linda nn 52w730 2015-02-04 2015-02-04 lab order/ nullFlavo Bria, ccd 1962c-6 [facility] 20:23:00 20:23:00 x-ray r Gaurav GRANT 5w3-569x-m l e67-i17kv4 Linda nn e147de 2015-02-04 2015-02-04 lab order/ nullFlavo Bria, 8a5 12q23-6 [facility] 20:23:00 20:23:00 x-ray r Gaurav GRANT f0c-4mr1-8 l 8o8-99k13g Linda nn d994e5 2015-02-04 2015-02-04 lab order/ nullFlavo Bria, cec 44fj4-y [facility] 20:23:00 20:23:00 x-ray r Gaurav GRANT d35-7641-9 l k16-03o063 Linda nn e873a3 2015-02-04 2015-02-04 lab order/ nullFlavo Bria, 4f7 t5k90-8 [facility] 20:23:00 20:23:00 x-ray r Gaurav GRANT 1v6-56bj-2 l k5l-k5e7m5 Linda nn 9e4e7b 2015-02-04 2015-02-04 lab order/ nullFlavo Bria, 65e acbcf-8 [facility] 20:23:00 20:23:00 x-ray r Gaurav GRANT 130-4219-a l v68-2u0c05 Linda nn 2f6d3b 2015-02-04 2015-02-04 lab order/ nullFlavo Bria, cd5 5865a-a [facility] 20:23:00 20:23:00 x-ray r Gaurav GRANT 3cb-4592-b l 0i7-w56hz7 Linda nn f1b6ad 2015-02-04 2015-02-04 lab order/ nullFlavo Bria, 50c 29808-2 [facility] 20:23:00 20:23:00 x-ray r Gaurav GRANT 842-4673-a l h7r-o13983 Linda nn 608ee9 2015-02-04 2015-02-04 lab order/ nullFlavo Bria, b8b 9g29n-3 [facility] 20:23:00 20:23:00 x-ray r Gaurav GRANT fe6-4444-a l 678-699e08 Linda nn 6f35a0 2015-02-04 2015-02-04 lab order/ nullFlavo Bria, 8b6 0v579-d [facility] 20:23:00 20:23:00 x-ray r Gaurav GRANT 27d-4a6f-a l ae4-1iu440 [facility] nn [id number] 2015-02-04 2015-02-04 lab order/ nullFlavo Bria, 7e3 6u908-7 [facility] 20:23:00 20:23:00 x-ray r Gaurav GRANT 032-475b-9 l 6ce-wzk773 [facility] nn 56851o 2015-02-04 2015-02-04 lab order/ nullFlavo Bria, 582 t2348-9 [facility] 20:23:00 20:23:00 x-ray r Gaurav GRANT 0b8-15y5-x l fe9-7e21d7 [facility] nn 4acf3f 2015-02-04 2015-02-04 lab order/ nullFlavo Bria, 6b9 0116d-d [facility] 20:23:00 20:23:00 x-ray r Gaurav GRANT 3bb-4d9a-a l 2bb-ff2b3f [facility] nn [id number] 2015-02-04 2015-02-04 lab order/ nullFlavo Bria, c7b x59lz-5 [facility] 20:23:00 20:23:00 x-ray r Gaurav GRANT j3s-7e62-3 l 25c-0038af [facility] nn f2b3aa 2015-02-04 2015-02-04 lab order/ nullFlavo Bria, 1d1 pg94u-v [facility] 20:23:00 20:23:00 x-ray r Gaurav GRANT 298-4f0c-a l s6i-m85rm0 [facility] nn 39h737 2015-02-04 2015-02-04 lab order/ nullFlavo Bria, ccd 1962c-6 [facility] 20:23:00 20:23:00 x-ray r Gaurav GRANT 0z7-075b-f l c85-s92os7 [facility] nn e147de 2015-02-04 2015-02-04 lab order/ nullFlavo Bria, 8a5 50e10-4 [facility] 20:23:00 20:23:00 x-ray r Gaurav GRANT g2g-9bh0-6 l 1h2-01l23q [facility] nn d994e5 2015-02-04 2015-02-04 lab order/ nullFlavo Bria, cec 02wv7-v [facility] 20:23:00 20:23:00 x-ray r Gaurav GRANT c85-4882-3 l h62-74h056 [facility] nn e873a3 2015-02-04 2015-02-04 lab order/ nullFlavo Bria, 4f7 y0p83-3 [facility] 20:23:00 20:23:00 x-ray r Gaurav GRANT 2t7-83tx-3 l t0r-f6l3n9 [facility] nn 9e4e7b 2015-02-04 2015-02-04 lab order/ nullFlavo Bria, 65e acbcf-8 [facility] 20:23:00 20:23:00 x-ray r Gaurav GRANT 130-4219-a l a86-6k9q55 [facility] nn 2f6d3b 2015-02-04 2015-02-04 lab order/ nullFlavo Bria, cd5 5865a-a [facility] 20:23:00 20:23:00 x-ray r Gaurav GRANT 3cb-4592-b l 0q6-z19hj7 [facility] nn f1b6ad 2015-02-04 2015-02-04 lab order/ nullFlavo Bria, 50c 00927-5 [facility] 20:23:00 20:23:00 x-ray r Gaurav GRANT 842-4673-a l v0z-c22212 [facility] nn 608ee9 2015-02-04 2015-02-04 lab order/ nullFlavo Bria, 1a1 w52ic-1 [facility] 19:23:00 19:23:00 x-ray r Gaurav GRANT 885-40d4-9 l 335-e8f9fc [facility] nn 6c2a05 2015-02-04 2015-02-04 lab order/ nullFlavo Bria, 6df f07fm-7 [facility] 19:23:00 19:23:00 x-ray r Gaurav GRANT j55-1402-f l 4cd-5f1ca9 [facility] nn 9fb13d 2015-02-04 2015-02-04 lab order/ nullFlavo Bria, 684 1w99w-x [facility] 19:23:00 19:23:00 x-ray r Gaurav GRANT 17e-47f4-b l c54-ov991c [facility] nn dd68e0 2015-02-04 2015-02-04 lab order/ nullFlavo Bria, a4d ta44g-z [facility] 19:23:00 19:23:00 x-ray r Gaurav GRANT fcb-4f4b-b l 63f-0321d4 [facility] nn cea2ee 2015-02-04 2015-02-04 lab order/ nullFlavo Bria, 1a1 g86oa-3 [facility] 19:23:00 19:23:00 x-ray r Gaurav GRANT 885-40d4-9 l 335-e8f9fc [facility] nn 6c2a05 2015-02-04 2015-02-04 lab order/ nullFlavo Bria, 6df b39co-3 [facility] 19:23:00 19:23:00 x-ray r Gaurav GRANT f16-1134-f l 4cd-5f1ca9 [facility] nn 9fb13d 2015-02-04 2015-02-04 lab order/ nullFlavo Bria, 684 6v95d-r [facility] 19:23:00 19:23:00 x-ray r Gaurav GRANT 17e-47f4-b l p37-gd729g [facility] nn dd68e0 2015-02-04 2015-02-04 lab order/ nullFlavo Bria, a4d rw15m-w [facility] 19:23:00 19:23:00 x-ray r Gaurav GRANT fcb-4f4b-b l 63f-0321d4 [facility] nn cea2ee 2015-02-04 2015-02-04 [facility], 183 158 [facility] 14:23:00 14:23:00 Gaurav briceño 2015-02-03 2015-02-03 release nullFlavo Bria, 1a99fc be-0 [facility] 23:01:00 23:01:00 for sx r Gaurav GRANT 8p0-3326-4 l 04c-9288dc Linda nn [id number] 0409-10-28 2015-02-03 release nullFlavo Bria, d89e26 e8-c [facility] 23:01:00 23:01:00 for sx r Gaurav GRANT db0-404e-9 l 9z4-z5b4g8 [facility] nn [id number] 2015-02-03 2015-02-03 release nullFlavo Bria, e43104 e5-f [facility] 23:01:00 23:01:00 for sx r Gaurav GRANT 7c8-0bxy-1 l be5-b1f5ab [facility] nn 92x254 2015-02-03 2015-02-03 release nullFlavo Bria, 0d8a0c 8d-f [facility] 23:01:00 23:01:00 for sx r Gaurav GRANT 5ef-48b5-b l 1v4-qi7503 [facility] nn 76c69a 2015-02-03 2015-02-03 release nullFlavo Bria, 33bdd0 a2-b [facility] 23:01:00 23:01:00 for sx r Gaurav GRANT h4d-5b5c-1 l 0p9-8b0w37 [facility] nn 7a80e7 2015-02-03 2015-02-03 release nullFlavo Bria, d7deb8 d1-b [facility] 23:01:00 23:01:00 for sx r Gaurav GRANT 1b1-4227-f l 10d-0ca3ef [facility] nn 98bcf8 2015-02-03 2015-02-03 release nullFlavo Bria, o45678 fd-9 [facility] 23:01:00 23:01:00 for sx r Gaurav GRANT 319-42e4-9 l ff9-35f09c [facility] nn y5313h 2015-02-03 2015-02-03 release nullFlavo Bria, 9909d6 8e-3 [facility] 23:01:00 23:01:00 for sx r Gaurav GRANT 348-4290-8 l 318-00v231 Linda nn 78010i 2015-02-03 2015-02-03 release nullFlavo Bria, 606c1f 8e-a [facility] 23:01:00 23:01:00 for sx r Gaurav GRANT 682-4889-9 l 73d-6324ec [facility] nn 154e93 2015-02-03 2015-02-03 release nullFlavo Bria, a87c6f 4f-6 [facility] 23:01:00 23:01:00 for sx r Gaurav GRANT s13-3566-c l k0p-2571g7 [facility] nn 53f2aa 2015-02-03 2015-02-03 release nullFlavo Bria, 7e40cd 04-3 [facility] 23:01:00 23:01:00 for sx r Gaurav GRANT 7af-4454-a l x8f-t25q89 [facility] nn 230fee 2015-02-03 2015-02-03 release nullFlavo Bria, j2880i 08-c [facility] 23:01:00 23:01:00 for sx r Gaurav GRANT 50a-4fa1-8 l p4u-a49613 [facility] nn 4c6f5b 2015-02-03 2015-02-03 release nullFlavo Bria, x39637 2c-f [facility] 23:01:00 23:01:00 for sx r Gaurav GRANT 156-4b63-b l 639-48f8a2 [facility] nn 00a2ef 2015-02-03 2015-02-03 release nullFlavo Bria, 77i198 b9-6 [facility] 23:01:00 23:01:00 for sx r Gaurav GRANT 039-46c5-a l 0dd-ac6d1f [facility] nn b032d7 2015-02-03 2015-02-03 release nullFlavo Bria, 1a99fc be-0 [facility] 23:01:00 23:01:00 for sx r Gaurav GRANT 8q5-2260-0 l 04c-9288dc [facility] nn [id number] 2307-10-28 2015-02-03 release nullFlavo Bria, d89e26 e8-c [facility] 23:01:00 23:01:00 for sx r Gaurav GRANT db0-404e-9 l 0i2-v8z1u2 Linda nn [id number] 2015-02-03 2015-02-03 release nullFlavo Bria, d62189 e5-f [facility] 23:01:00 23:01:00 for sx r Gaurav GRANT 6s3-2itu-6 l be5-b1f5ab [facility] nn 03e887 2015-02-03 2015-02-03 release nullFlavo Bria, 0d8a0c 8d-f [facility] 23:01:00 23:01:00 for sx r Gaurav GRANT 5ef-48b5-b l 9v3-ma7850 [facility] nn 76c69a 2015-02-03 2015-02-03 release nullFlavo Bria, 33bdd0 a2-b [facility] 23:01:00 23:01:00 for sx r Gaurav GRANT p6c-9m6w-4 l 2w3-6v3z02 [facility] nn 7a80e7 2015-02-03 2015-02-03 release nullFlavo Bria, d7deb8 d1-b [facility] 23:01:00 23:01:00 for sx r Gaurav GRANT 2i0-1734-d l 10d-0ca3ef Linda nn 98bcf8 2015-02-03 2015-02-03 release nullFlavo Bria, d45205 fd-9 [facility] 23:01:00 23:01:00 for sx r Gaurav GRANT 319-42e4-9 l ff9-35f09c Linda nn k9806e 2015-02-03 2015-02-03 release nullFlavo Bria, 9909d6 8e-3 [facility] 23:01:00 23:01:00 for sx r Gaurav GRANT 348-4290-8 l 318-04m300 Linda nn 17949e 2015-02-03 2015-02-03 release nullFlavo Bria, 606c1f 8e-a [facility] 23:01:00 23:01:00 for sx r Gaurav GRANT 682-4889-9 l 73d-6324ec Linda nn 154e93 2015-02-03 2015-02-03 release nullFlavo Bria, a87c6f 4f-6 [facility] 23:01:00 23:01:00 for sx r Gaurav GRANT u43-1913-s l e8e-8962y7 Linda nn 53f2aa 2015-02-03 2015-02-03 release nullFlavo Bria, 7e40cd 04-3 [facility] 23:01:00 23:01:00 for sx r Gaurav GRANT 7af-4454-a l e0h-j79f76 Linda nn 230fee 2015-02-03 2015-02-03 release nullFlavo Bria, z2883f 08-c [facility] 23:01:00 23:01:00 for sx r Gaurav GRANT 50a-4fa1-8 l i2o-a08356 Linda nn 4c6f5b 2015-02-03 2015-02-03 release nullFlavo Bria, x82510 2c-f [facility] 23:01:00 23:01:00 for sx r Gaurav GRANT 156-4b63-b l 639-48f8a2 Linda nn 00a2ef 2015-02-03 2015-02-03 release nullFlavo Bria, 01v631 b9-6 [facility] 23:01:00 23:01:00 for sx r Gaurav GRANT 039-46c5-a l 0dd-ac6d1f Linda nn b032d7 2015-02-03 2015-02-03 release nullFlavo Bria, 1v1865 48-1 [facility] 22:01:00 22:01:00 for sx r Gaurav GRANT 13b-4715-8 l 253-46g381 Linda nn 299cc9 2015-02-03 2015-02-03 release nullFlavo Bria, 37afc2 cd-4 [facility] 22:01:00 22:01:00 for sx r Gaurav GRANT 5cb-4266-9 l y6g-j591fw Linda nn fefb36 2015-02-03 2015-02-03 release nullFlavo Bria, 89c50a d6-8 [facility] 22:01:00 22:01:00 for sx r Gaurav GRANT 448-4d8e-b l ac0-22ac5e Linda nn c7587z 2015-02-03 2015-02-03 release nullFlavo Bria, c0aa40 bb-2 [facility] 22:01:00 22:01:00 for sx r Gaurav GRANT ce0-4bd8-8 l 5p6-11yp37 Linda nn 851697 7072-10-28 2015-02-03 release nullFlavo Bria, 5v6263 48-1 [facility] 22:01:00 22:01:00 for sx r Gaurav GRANT 13b-4715-8 l 253-88g903 Linda nn 299cc9 2015-02-03 2015-02-03 release nullFlavo Bria, 37afc2 cd-4 [facility] 22:01:00 22:01:00 for sx r Gaurav GRANT 5cb-4266-9 l o3p-y654lm Linda nn fefb36 2015-02-03 2015-02-03 release nullFlavo Bria, 89c50a d6-8 [facility] 22:01:00 22:01:00 for sx r Gaurav GRANT 448-4d8e-b l ac0-22ac5e Linda nn c8635w 2015-02-03 2015-02-03 release nullFlavo Bria, c0aa40 bb-2 [facility] 22:01:00 22:01:00 for sx r Gaurav GRANT ce0-4bd8-8 l 0o8-25hy98 Linda nn 774434 8090-10-28 2015-02-03 Outpatient Bria Fraser, 183 077 [facility]inic 17:01:00 17:01:00 Gaurav Nolasco MD alWork s 2015-01-04 2015-01-04 [place] [facility] nullFlavo Bria, 54cef 5fe-7 [facility] 22:30:00 22:30:00 r Gaurav GRANT 740-43f9-a l 6m0-z8llvw Linda nn ef3bbf 2015-01-04 2015-01-04 [place] [facility] nullFlavo Bria, f5807 17e-b [facility] 22:30:00 22:30:00 r Gaurav GRANT o1i-1ce5-1 l bbf-8b9ee8 Linda nn ebbbe3 2015-01-04 2015-01-04 [place] [facility] nullFlavo Bria, 33fd9 1c6-9 [facility] 22:30:00 22:30:00 r Gaurav GRANT x42-345s-k l fa9-f8a32b [facility] 9f2e82 2015-01-04 2015-01-04 [place] [facility] nullFlavo Bria, f0ef7 206-7 [facility] 22:30:00 22:30:00 r Gaurav GRANT 269-46fd-9 l 951-72536v [facility] 744274 7332-09-28 2015-01-04 [place] [facility] nullFlavo Bria, bdbc1 e80-c [facility] 22:30:00 22:30:00 r Gaurav GRANT c96-80bl-8 l 1i5-04x11a [facility] bc4f46 2015-01-04 2015-01-04 [place] [facility] nullFlavo Bria, 92d98 208-9 [facility] 22:30:00 22:30:00 r Gaurav GRANT 904-4259-9 l a3k-04eow4 [facility] wii892 2015-01-04 2015-01-04 [place] [facility] nullFlavo Bria, 22d92 5d4-e [facility] 22:30:00 22:30:00 r Gaurav GRANT k0c-293p-2 l 70e-4d3d30 [facility] y1x938 2015-01-04 2015-01-04 [place] [facility] nullFlavo Bria, 54cef 5fe-7 [facility] 22:30:00 22:30:00 r Gaurav GRANT 740-43f9-a l 7q8-l6topt [facility] ef3bbf 2015-01-04 2015-01-04 [place] [facility] nullFlavo Bria, f5807 17e-b [facility] 22:30:00 22:30:00 r Gaurav GRANT k2g-9zb1-4 l bbf-8b9ee8 [facility] ebbbe3 2015-01-04 2015-01-04 [place] [facility] nullFlavo Bria, 33fd9 1c6-9 [facility] 22:30:00 22:30:00 r Gaurav GRANT v91-059o-j l fa9-f8a32b [facility] 9f2e82 2015-01-04 2015-01-04 [place] [facility] nullFlavo Bria, f0ef7 206-7 [facility] 22:30:00 22:30:00 r Gaurav GRANT 269-46fd-9 l 951-19997l [facility] [id number] 9999-09-28 2015-01-04 [place] [facility] nullFlavo Bria, bdbc1 e80-c [facility] 22:30:00 22:30:00 r Gaurav GRANT f92-40yp-0 l 5k7-12q33k [facility] nn bc4f46 2015-01-04 2015-01-04 [place] [facility] nullFlavo Bria, 92d98 208-9 [facility] 22:30:00 22:30:00 r Gaurav GRANT 904-4259-9 l x4c-78ynb6 [facility] nn lqf762 2015-01-04 2015-01-04 [place] [facility] nullFlavo Bria, 22d92 5d4-e [facility] 22:30:00 22:30:00 r Gaurav GRANT j2i-322r-2 l 70e-4d3d30 [facility] pooja u7n109 2015-01-04 2015-01-04 [place] [facility] nullFlavo Bria, 67a75 2b6-d [facility] 21:30:00 21:30:00 r Gaurav GRANT bd6-4d9e-8 l 997-4522a5 [facility] nn 02abea 2015-01-04 2015-01-04 [place] [facility] nullFlavo Bria, 05292 914-1 [facility] 21:30:00 21:30:00 r Gaurav GRANT l04-99il-r l 098-6f1b8d [facility] b9ab77 2015-01-04 2015-01-04 [place] [facility] nullFlavo Bria, 75b22 c7b-b [facility] 21:30:00 21:30:00 r Gaurav GRANT dc8-42e9-b l 5c5-28o570 [facility] 795a90 2015-01-04 2015-01-04 [place] [facility] nullFlavo Bria, cfe5b 85b-6 [facility] 21:30:00 21:30:00 r Gaurav GRANT 76a-4458-a l 67a-1ig999 [facility] 4ff2e1 2015-01-04 2015-01-04 [place] [facility] nullFlavo Bria, 67a75 2b6-d [facility] 21:30:00 21:30:00 r Gaurav GRANT bd6-4d9e-8 l 997-4522a5 [facility] nn 02abea 2015-01-04 2015-01-04 [place] [facility] nullFlavo Bria, 99820 914-1 [facility] 21:30:00 21:30:00 r Gaurav GRANT g80-99fm-c l 098-6f1b8d Linda nn b9ab77 2015-01-04 2015-01-04 [place] [facility] nullFlavo Bria, 75b22 c7b-b [facility] 21:30:00 21:30:00 r Gaurav GRANT dc8-42e9-b l 2q5-79k475 Linda nn 795a90 2015-01-04 2015-01-04 [place] [facility] nullFlavo Bria, cfe5b 85b-6 [facility] 21:30:00 21:30:00 r Gaurav GRANT 76a-4458-a l 67a-5ho472 Linda nn 4ff2e1 2015-01-04 2015-01-04 Outpatient Bria Bria, 180 004 eClinic 16:30:00 16:30:00 Gaurav Nolasco MD alWork s 2014-12-24 2014-12-24 Needs nullFlavo Bria, 318b64 fc-4 [facility] 21:30:00 21:30:00 Sleeping r Gaurav GRANT 413-42f2-b l meds 475-m6y959 Linda nn w0v119 2014-12-24 2014-12-24 Needs nullFlavo Bria, 9r0405 81-b [facility] 21:30:00 21:30:00 Sleeping r Gaurav GRANT k76-5wl9-r l meds o49-9z8a9e Linda nn 5749c9 2014-12-24 2014-12-24 Needs nullFlavo Bria, 3bda8a 55-a [facility] 21:30:00 21:30:00 Sleeping r Gaurav GRANT 287-4650-8 l meds 82d-8bd2ed Linda nn cm0431 2014-12-24 2014-12-24 Needs nullFlavo Bria, e797e0 17-7 [facility] 21:30:00 21:30:00 Sleeping r Gaurav GRANT i82-4828-9 l meds afc-51dea0 Linda nn wgv856 2014-12-24 2014-12-24 Needs nullFlavo Bria, 287090 e7-4 [facility] 21:30:00 21:30:00 Sleeping r Gaurav MD 965-4d93-a l meds 00c-a1af2c Linda nn e5b17d 2014-12-24 2014-12-24 Needs nullFlavo Bria, qvg521 9d-e [facility] 21:30:00 21:30:00 Sleeping usama Nolasco MD aa1-4467-b l meds 280-cafcf0 Linda nn 3c1f57 2014-12-24 2014-12-24 Needs nullFlavo Bria, 792eeb 6f-b [facility] 21:30:00 21:30:00 Sleeping usama Nolasco MD 01f-468c-a l meds p52-007w9e Linda nn 34ae6c 2014-12-24 2014-12-24 Needs nullFlavo Bria, 318b64 fc-4 [facility] 21:30:00 21:30:00 Sleeping usama Nolasco MD 413-42f2-b l meds 475-n7v617 Linda nn k9k716 2014-12-24 2014-12-24 Needs nullFlavo Bria, 9t6248 81-b [facility] 21:30:00 21:30:00 Sleeping usama Nolasco MD p95-8kz3-h l meds l53-0k9s7h Linda nn 5749c9 2014-12-24 2014-12-24 Needs Shadeo Bria, 3bda8a 55-a [facility] 21:30:00 21:30:00 Sleeping usama Nolasco MD 287-4650-8 l meds 82d-8bd2ed Linda nn wl5174 2014-12-24 2014-12-24 Needs nullFlavo Bria, e797e0 17-7 [facility] 21:30:00 21:30:00 Sleeping usama Nolasco MD r46-7670-4 l meds afc-51dea0 Linda nn ivo356 2014-12-24 2014-12-24 Needs nullFlavo Bria, 095018 e7-4 [facility] 21:30:00 21:30:00 Sleeping usama Nolasco MD 965-4d93-a l meds 00c-a1af2c Linda nn e5b17d 2014-12-24 2014-12-24 Needs nullFlavo Bria, wyq793 9d-e [facility] 21:30:00 21:30:00 Sleeping r Gaurav GRANT aa1-4467-b l meds 280-cafcf0 Linda nn 3c1f57 2014-12-24 2014-12-24 Needs nullFlavo Bria, 792eeb 6f-b [facility] 21:30:00 21:30:00 Sleeping r Gaurav GRANT 01f-468c-a l meds m99-794q3c Linda nn 34ae6c 2014-12-24 2014-12-24 Needs nullFlavo Bria, c8c05a 94-7 [facility] 20:30:00 20:30:00 Sleeping r Gaurav GRANT r23-0122-6 l meds 141-9f53b9 Linda nn m4795h 2014-12-24 2014-12-24 Needs nullFlavo Bria, s29583 e5-b [facility] 20:30:00 20:30:00 Sleeping r Gaurav GRANT aeb-4b2d-9 l meds 8q6-f493q3 Linda nn 029b23 2014-12-24 2014-12-24 Needs nullFlavo Bria, 99193s af-e [facility] 20:30:00 20:30:00 Sleeping usama Nolasco MD ffc-47c8-8 l meds 12c-b9d17f Linda nn aeee78 2014-12-24 2014-12-24 Needs vicFlavo Bria, e953f2 9f-8 [facility] 20:30:00 20:30:00 Sleeping usama Nolasco MD 1o3-21r7-2 l meds 9a3-9j5nw8 Linda nn 8m9914 2014-12-24 2014-12-24 Needs nullFlavo Bria, c8c05a 94-7 [facility] 20:30:00 20:30:00 Sleeping r Gaurav GRANT e90-0383-6 l meds 141-9f53b9 Linda nn v0702q 2014-12-24 2014-12-24 Needs nullFlavo Bria, c96034 e5-b [facility] 20:30:00 20:30:00 Sleeping usama Nolasco MD aeb-4b2d-9 l meds 3j1-z752x7 Linda nn 029b23 2014-12-24 2014-12-24 Needs nullFlavo Bria, 11405r af-e [facility] 20:30:00 20:30:00 Sleeping r Gaurav GRANT ffc-47c8-8 l meds 12c-b9d17f Linda nn aeee78 2014-12-24 2014-12-24 Needs Sonya Fraser, e953f2 9f-8 [facility] 20:30:00 20:30:00 Sleeping r Gaurav GRANT 1z5-55y9-5 l meds 8f1-7b5sj9 Linda nn 9w4805 2014-12-24 2014-12-24 Outpatient Bria Fraser, 178 107 e[facility]inic 15:30:00 15:30:00 Gaurav Nolasco MD alWork s 2014-11-17 2014-11-17 refill nullFlavo Bria, 1bbbbc 0b-2 [facility] 16:01:00 16:01:00 r Gaurav GRANT galindo-47b8-9 l df1-6eede1 Linda nn 224eed 2014-11-17 2014-11-17 refill nullFlavo Bria, 5k3016 e4-4 [facility] 16:01:00 16:01:00 r Gaurav GRANT q2l-2b84-1 l 371-472abd Linda nn 784081 2807-08-11 2014-11-17 refill nullFlavo Bria, w4u873 dd-1 [facility] 16:01:00 16:01:00 r Gaurav GRANT fd8-457d-9 l dab-434a13 Linda nn 703f0b 2014-11-17 2014-11-17 refill nullFlavo Bria, d8efe3 79-3 [facility] 16:01:00 16:01:00 r Gaurav GRANT 3x3-4n7b-h l 0z6-a45957 Linda nn 74379s 2014-11-17 2014-11-17 refill nullFlavo Bria, 73t203 be-9 [facility] 16:01:00 16:01:00 r Gaurav GRANT eec-4aa0-8 l 7dd-524546 Linda nn dc91dd 2014-11-17 2014-11-17 refill nullFlavo Bria, 2325ae c9-c [facility] 16:01:00 16:01:00 r Gaurav GRANT 36c-48fa-8 l ac5-z24688 Linda nn f2d2ad 2014-11-17 2014-11-17 refill nullFlavo Bria, 69a53f 9f-7 [facility] 16:01:00 16:01:00 r Gaurav GRANT 6s8-62y0-g l bee-5fefeb Linda nn e56e65 2014-11-17 2014-11-17 refill nullFlavo Bria, d81ea3 2a-1 [facility] 16:01:00 16:01:00 r Gaurav GRANT 7cc-496d-9 l 70b-3b0239 Linda nn 35fef5 2014-11-17 2014-11-17 refill nullFlavo Bria, a5f7bb 76-e [facility] 16:01:00 16:01:00 r Gaurav GRANT 651-4d16-9 l cc6-c7b4f1 Linda nn c244a4 2014-11-17 2014-11-17 refill nullFlavo Bria, 84612i 68-7 [facility] 16:01:00 16:01:00 r Gaurav GRANT o4j-6tvb-2 l z36-0wds0f Linda nn e8b395 2014-11-17 2014-11-17 refill nullFlavo Bria, u10625 df-f [facility] 16:01:00 16:01:00 r Gaurav GRANT 683-4fe4-9 l 784-6047ae Linda nn 9r3900 2014-11-17 2014-11-17 refill nullFlavo Bria, u43906 b0-8 [facility] 16:01:00 16:01:00 r Gaurav GRANT 682-41f0-8 l r9x-ampd1k Linda nn 33dded 2014-11-17 2014-11-17 refill nullFlavo Bria, 9k9388 ed-3 [facility] 16:01:00 16:01:00 r Gaurav GRANT 5g8-6144-3 l p7d-36io13 Linda nn 2b8fc7 2014-11-17 2014-11-17 refill nullFlavo Bria, 3a47ad 53-2 [facility] 16:01:00 16:01:00 r Gaurav GRANT q1f-2096-v l d7f-ma18s8 Linda nn d7edfa 2014-11-17 2014-11-17 refill nullFlavo Bria, 1bbbbc 0b-2 [facility] 16:01:00 16:01:00 r Gaurav GRANT galindo-47b8-9 l df1-6eede1 Linda nn 224eed 2014-11-17 2014-11-17 refill nullFlavo Bria, 5o4158 e4-4 [facility] 16:01:00 16:01:00 r Gaurav GRANT t4r-3z21-2 l 371-472abd Linda nn 087770 5887-08-11 2014-11-17 refill nullFlavo Bria, h8e597 dd-1 [facility] 16:01:00 16:01:00 r Gaurav GRANT fd8-457d-9 l dab-434a13 Linda nn 703f0b 2014-11-17 2014-11-17 refill nullFlavo Bria, d8efe3 79-3 [facility] 16:01:00 16:01:00 r Gaurav GRANT 9x4-5w8t-b l 4o4-a87277 Linda nn 51279l 2014-11-17 2014-11-17 refill nullFlavo Bria, 89n195 be-9 [facility] 16:01:00 16:01:00 r Gaurav GRANT eec-4aa0-8 l 7dd-261928 Linda nn dc91dd 2014-11-17 2014-11-17 refill nullFlavo Bria, 2325ae c9-c [facility] 16:01:00 16:01:00 r Gaurav GRANT 36c-48fa-8 l ac5-q15718 Linda nn f2d2ad 2014-11-17 2014-11-17 refill nullFlavo Bria, 69a53f 9f-7 [facility] 16:01:00 16:01:00 r Gaurav GRANT 5p2-51g7-q l bee-5fefeb Linda nn e56e65 2014-11-17 2014-11-17 refill nullFlavo Bria, d81ea3 2a-1 [facility] 16:01:00 16:01:00 r Gaurav GRANT 7cc-496d-9 l 70b-2x3150 Linda nn 35fef5 2014-11-17 2014-11-17 refill nullFlavo Bria, a5f7bb 76-e [facility] 16:01:00 16:01:00 r Gaurav GRANT 651-4d16-9 l cc6-c7b4f1 Linda nn c244a4 2014-11-17 2014-11-17 refill Sonya Fraser, 72458b 68-7 [facility] 16:01:00 16:01:00 r Gaurav GRANT x1c-9jbg-8 l j63-5rch0g Linda nn a0s515 2014-11-17 2014-11-17 refill nullNicko Bria, f00770 df-f [facility] 16:01:00 16:01:00 r Gaurav GRANT 683-4fe4-9 l 784-6047ae Linda nn 5j5562 2014-11-17 2014-11-17 refill Sonya Fraser, c52452 b0-8 [facility] 16:01:00 16:01:00 r Gaurav GRANT 682-41f0-8 l i0c-uwfv7p Linda nn 33dded 2014-11-17 2014-11-17 refill Sonya Fraser, 7t9383 ed-3 [facility] 16:01:00 16:01:00 r Gaurav GRANT 4h9-1065-8 l t9c-08la55 Linda nn 2b8fc7 2014-11-17 2014-11-17 refill Sonya Fraser, 3a47ad 53-2 [facility] 16:01:00 16:01:00 r Gaurav GRANT z2j-9186-k l m3p-bl90s8 Linda nn d7edfa 2014-11-17 2014-11-17 refill Sonya Fraser, dca4eb 9d-f [facility] 15:01:00 15:01:00 r Gaurav GRANT v95-01yy-d l fea-51b2ad Linda nn 5s331j 2014-11-17 2014-11-17 refill Sonya Fraser, b73d8d b9-9 [facility] 15:01:00 15:01:00 r Gaurav GRANT aff-4a63-8 l 93a-cbe3a7 Linda nn d2a2b8 2014-11-17 2014-11-17 refill Sonya Fraser, 59898u 61-6 [facility] 15:01:00 15:01:00 r Gaurav GRANT 5cc-458f-b l fb5-fb76a1 Linda nn 3b799j 2014-11-17 2014-11-17 refill nullFlavo Bria, x4g900 02-c [facility] 15:01:00 15:01:00 r Gaurav GRANT 57e-441e-a l a12-m999i9 Linda nn f09a14 2014-11-17 2014-11-17 refill nullFlavo Bria, d745a8 42-6 [facility] 15:01:00 15:01:00 r Gaurav GRANT y3x-4022-h l fcc-9e63b8 Linda nn 0f06f9 2014-11-17 2014-11-17 refill nullFlavo Bria, 169e83 fa-1 [facility] 15:01:00 15:01:00 r Gaurav GRANT 1af-42b8-b l 783-01ea95 Linda nn 9d9f5a 2014-11-17 2014-11-17 refill nullFlavo Bria, dca4eb 9d-f [facility] 15:01:00 15:01:00 r Gaurav GRANT a83-23hx-i l fea-51b2ad Linda nn 2v226v 2014-11-17 2014-11-17 refill nullFlavo Bria, b73d8d b9-9 [facility] 15:01:00 15:01:00 r Gaurav GRANT aff-4a63-8 l 93a-cbe3a7 Linda nn d2a2b8 2014-11-17 2014-11-17 refill nullFlavo Bria, 02753r 61-6 [facility] 15:01:00 15:01:00 r Gaurav GRANT 5cc-458f-b l fb5-fb76a1 Linda nn 3o141h 2014-11-17 2014-11-17 refill nullFlavo Bria, l6z398 02-c [facility] 15:01:00 15:01:00 r Gaurav GRANT 57e-441e-a l y76-w724t1 Linda nn f09a14 2014-11-17 2014-11-17 refill nullFlavo Bria, d745a8 42-6 [facility] 15:01:00 15:01:00 r Gaurav MD x0u-1837-g l fcc-9e63b8 Linda nn 0f06f9 2014-11-17 2014-11-17 refill Sonya Fraser, 169e83 fa-1 [facility] 15:01:00 15:01:00 usama Nolasco MD 1af-42b8-b l 783-01ea95 Linda nn 9d9f5a 2014-11-17 2014-11-17 Outpatient Bria Fraser, 176 012 eClinic 10:01:00 10:01:00 Gaurav Nolasco MD alWork s 2014-11-05 2014-11-05 4 Months nullFlavo Bria, 91a5d 25f-2 [facility] 14:30:00 14:30:00 (Reason: usama Nolasco MD o92-0w2h-8 l Thyroid arnol-4hg509 Linda nn and 60822d Triglyceri anupama ) 2014-11-05 2014-11-05 4 Months nullFlavo Bria, aa958 998-f [facility] 14:30:00 14:30:00 (Reason: usama Nolasco MD 414-4492-a l Thyroid j17-88852m Linda nn and 6ey188 Triglyceri anupama ) 2014-11-05 2014-11-05 4 Months nullFlavreji Fraser, e4aa3 177-b [facility] 14:30:00 14:30:00 (Reason: usama Nolasco MD s25-8a35-2 l Thyroid dc2-6cf4a9 Linda nn and 03d96a Triglyceri anupama ) 2014-11-05 2014-11-05 4 Months nullFlavo Bria, be23a 0e2-b [facility] 14:30:00 14:30:00 (Reason: usama Nolasco MD 4s6-519y-5 l Thyroid 073-380af9 Linda nn and b087e4 Triglyceri anupama ) 2014-11-05 2014-11-05 4 Months nullFlavo Bria, 20a70 fb2-d [facility] 14:30:00 14:30:00 (Reason: usama Nolasco MD 35f-4504-b l Thyroid cac-c36e98 Linda nn and 404395 Triglyceri anupmaa ) 2014-11-05 2014-11-05 4 Months nullFlavo Bria, 1625b 686-9 [facility] 14:30:00 14:30:00 (Reason: usama Nolasco MD u2z-7w3v-t l Thyroid ff8-q25105 Linda nn and 8t7182 Triglyceri anupama ) 2014-11-05 2014-11-05 4 Months nullFlavo Bria, 226da feb-4 [facility] 14:30:00 14:30:00 (Reason: usama Nolasco MD 2k1-4910-o l Thyroid e2b-fen97o Linda nn and 4c64ed Triglyceri anupama ) 2014-11-05 2014-11-05 4 Months nullFlavo Bria, ec187 be3-f [facility] 14:30:00 14:30:00 (Reason: usama Nolasco MD 2i8-00gq-a l Thyroid 47c-81509p Linda nn and l93284 Triglyceri anupama ) 2014-11-05 2014-11-05 4 Months nullFlavreji Fraser, 91a5d 25f-2 [facility] 14:30:00 14:30:00 (Reason: usama Nolasco MD x18-0e7h-0 l Thyroid arnol-5ex424 Linda nn and 69702q Triglyceri anupama ) 2014-11-05 2014-11-05 4 Months nullFlavreji Fraser, aa958 998-f [facility] 14:30:00 14:30:00 (Reason: usama Nolasco MD 414-4492-a l Thyroid e66-23054s Linda nn and 6bt745 Triglyceri anupama ) 2014-11-05 2014-11-05 4 Months nullFlavreji Fraser, e4aa3 177-b [facility] 14:30:00 14:30:00 (Reason: usama Nolasco MD m41-1z96-5 l Thyroid dc2-6cf4a9 Linda nn and 03d96a Triglyceri anupama ) 2014-11-05 2014-11-05 4 Months nullFlavo Bria, be23a 0e2-b [facility] 14:30:00 14:30:00 (Reason: usama Nolasco MD 3q5-205g-7 l Thyroid 073-380af9 Linda nn and b087e4 Triglyceri anupama ) 2014-11-05 2014-11-05 4 Months nullFlavo Bria, 20a70 fb2-d [facility] 14:30:00 14:30:00 (Reason: usama Nolasco MD 35f-4504-b l Thyroid cac-c36e98 Linda nn and 335414 Triglyceri anupama ) 2014-11-05 2014-11-05 4 Months nullFlavo Bria, 1625b 686-9 [facility] 14:30:00 14:30:00 (Reason: usama Nolasco MD g5q-9r1d-b l Thyroid ff8-z25676 Linda nn and 3s3416 Triglyceri anupama ) 2014-11-05 2014-11-05 4 Months nullFlavo Bria, 226da feb-4 [facility] 14:30:00 14:30:00 (Reason: usama Nolasco MD 9i7-0337-m l Thyroid o6v-gln49a Linda nn and 4c64ed Triglyceri anupama ) 2014-11-05 2014-11-05 4 Months nullFlavo Bria, ec187 be3-f [facility] 14:30:00 14:30:00 (Reason: usama Nolasco MD 2m5-60ps-r l Thyroid 47c-79982u Linda nn and s27360 Triglyceri anupama ) 2014-11-05 2014-11-05 4 Months nullFlavo Bria, 658f2 829-5 [facility] 13:30:00 13:30:00 (Reason: usama Nolasco MD 08b-498a-b l Thyroid cbd-0ff2de Linda nn and 481e69 Triglyceri anupama ) 2014-11-05 2014-11-05 4 Months nullFlavo Bria, 91809 8aa-0 [facility] 13:30:00 13:30:00 (Reason: usama Nolasco MD 175-4190-9 l Thyroid r1x-vp97s9 Linda nn and a8c7a7 Triglyceri anupama ) 2014-11-05 2014-11-05 4 Months nullFlavo Bria, 8a0de ca5-4 [facility] 13:30:00 13:30:00 (Reason: usama Nolasco MD 0e1-33zg-k l Thyroid d6j-m3cnt7 Linda nn and aaf21a Triglyceri anupama ) 2014-11-05 2014-11-05 4 Months nullFlavo Bria, 896c4 c93-9 [facility] 13:30:00 13:30:00 (Reason: usama Nolasco MD 6af-4b8b-9 l Thyroid 915-bf8abc Linda nn and 18890u Triglyceri anupama ) 2014-11-05 2014-11-05 4 Months nullFlavo Bria, f6cd5 58b-7 [facility] 13:30:00 13:30:00 (Reason: usama Nolasco MD 31c-41fd-b l Thyroid 74e-1e3e37 Linda nn and c49bf5 Triglyceri anupama ) 2014-11-05 2014-11-05 4 Months nullFlavo Bria, 33e19 2a0-c [facility] 13:30:00 13:30:00 (Reason: usama Nolasco MD 826-473b-9 l Thyroid 9v4-2ack4a Linda nn and 6e5c44 Triglyceri anupama ) 2014-11-05 2014-11-05 4 Months nullFlavo Bria, 658f2 829-5 [facility] 13:30:00 13:30:00 (Reason: usama Nolasco MD 08b-498a-b l Thyroid cbd-0ff2de Linda nn and 481e69 Triglyceri anupama ) 2014-11-05 2014-11-05 4 Months nullFlavo Bria, 11763 8aa-0 [facility] 13:30:00 13:30:00 (Reason: usama Nolasco MD 175-4190-9 l Thyroid c3p-jo64d3 Linda nn and a8c7a7 Triglyceri anupama ) 2014-11-05 2014-11-05 4 Months nullFlavo Bria, 8a0de ca5-4 [facility] 13:30:00 13:30:00 (Reason: usama Nolasco MD 8d8-55it-l l Thyroid h5f-o0bsc1 Linda nn and aaf21a Triglyceri anupama ) 2014-11-05 2014-11-05 4 Months nullFlavo Bria, 896c4 c93-9 [facility] 13:30:00 13:30:00 (Reason: usama Nolasco MD 6af-4b8b-9 l Thyroid 915-bf8abc Linda nn and 81578y Triglyceri anupama ) 2014-11-05 2014-11-05 4 Months nullFlavo Bria, f6cd5 58b-7 [facility] 13:30:00 13:30:00 (Reason: usama Nolasco MD 31c-41fd-b l Thyroid 74e-1e3e37 Linda nn and c49bf5 Triglyceri anupama ) 2014-11-05 2014-11-05 4 Months nullFlavo Bria, 33e19 2a0-c [facility] 13:30:00 13:30:00 (Reason: usama Nolasco MD 826-473b-9 l Thyroid 2g8-2jsa5f Linda nn and 6e5c44 Triglyceri anupama ) 2014-11-05 2014-11-05 Outpatient [facility] Fraser, [id number] 08:30:00 08:30:00 Gaurav contrerasWork s 2014-11-05 2014-11-05 Outpatient Bria Fraser, [id number] [facility] 08:30:00 08:30:00 Gaurav contrerasWork s 2014-07-06 2014-07-06 2 Weeks nullFlavo Bria, g11327 3e-c [facility] 15:15:00 15:15:00 (Reason: usama Nolasco MD fb3-433f-a l Bronchitis 33f-e27aca [facility] ) hd752g 2014-07-06 2014-07-06 2 Weeks nullFlavo Bria, 46a97c b1-2 [facility] 15:15:00 15:15:00 (Reason: usama Nolasco MD a2p-6039-a l Bronchitis n4t-5qyo5c [facility] ) 76e3fa 2014-07-06 2014-07-06 2 Weeks nullFlavo Bria, 78b94e 5d-3 [facility] 15:15:00 15:15:00 (Reason: usama Nolasco MD v8n-0490-0 l Bronchitis 3ac-4z274m [facility] ) 65413g 2014-07-06 2014-07-06 2 Weeks nullFlavo Bria, 6e8cf6 25-9 [facility] 15:15:00 15:15:00 (Reason: usama Nolasco MD 6g1-47i9-a l Bronchitis 6q4-5038ua [facility] ) 4i2356 2014-07-06 2014-07-06 2 Weeks nullFlavo Bria, 6vt328 9b-6 [facility] 15:15:00 15:15:00 (Reason: usama Nolasco MD 865-4ac3-8 l Bronchitis j6g-7g2988 [facility] ) c1ca66 2014-07-06 2014-07-06 2 Weeks nullFlavo Bria, 07a74f e4-1 [facility] 15:15:00 15:15:00 (Reason: usama Nolasco MD 839-4154-a l Bronchitis fa0-t6y568 [facility] ) aa72e5 2014-07-06 2014-07-06 2 Weeks nullFlavo Bria, 124a2f 06-e [facility] 15:15:00 15:15:00 (Reason: usama Nolasco MD 6f5-1805-w l Bronchitis 6m7-516gb1 [facility] ) 4op333 2014-07-06 2014-07-06 2 Weeks nullFlavo Bria, 2845f6 21-2 [facility] 15:15:00 15:15:00 (Reason: usama Nolasco MD 3q1-145y-2 l Bronchitis aa7-wek322 [facility] ) a28dcd 2014-07-06 2014-07-06 2 Weeks nullFlavo Bria, 02e0a9 48-2 [facility] 15:15:00 15:15:00 (Reason: usama Nolasco MD dca-4966-9 l Bronchitis 02e-28b9ef [facility] ) d50a77 2014-07-06 2014-07-06 2 Weeks nullFlavo Bria, 53dcba 0c-0 [facility] 15:15:00 15:15:00 (Reason: usama Nolasco MD 42f-4e35-b l Bronchitis 5m9-sc26tu [facility] ) f301c7 2014-07-06 2014-07-06 2 Weeks nullFlavo Bria, c895af 6a-c [facility] 15:15:00 15:15:00 (Reason: usama Nolasco MD 3q3-9ght-8 l Bronchitis 1eb-592e06 [facility] ) bcz781 2014-07-06 2014-07-06 2 Weeks nullFlavo Bria, b151cc 0c-d [facility] 15:15:00 15:15:00 (Reason: usama Nolasco MD 7df-4131-9 l Bronchitis n64-2280t2 [facility] ) 51t510 2014-07-06 2014-07-06 2 Weeks nullFlavo Bria, 26a2f1 38-b [facility] 15:15:00 15:15:00 (Reason: usama Nolasco MD v79-4h17-5 l Bronchitis 1e2-43b3qg [facility] ) e622f5 2014-07-06 2014-07-06 2 Weeks nullFlavo Bria, e9c59c 64-2 [facility] 15:15:00 15:15:00 (Reason: usama Nolasco MD 87f-485b-8 l Bronchitis 37c-0c78de [facility] ) [id number] 8698-03-30 2014-07-06 2 Weeks nullFlavo Bria, k35362 3e-c [facility] 15:15:00 15:15:00 (Reason: usama Nolasco MD fb3-433f-a l Bronchitis 33f-e27aca [facility] ) pz531j 2014-07-06 2014-07-06 2 Weeks nullFlavo Bria, 46a97c b1-2 [facility] 15:15:00 15:15:00 (Reason: usama Nolasco MD e4l-8879-c l Bronchitis e4y-2dbn1c [facility] ) 76e3fa 2014-07-06 2014-07-06 2 Weeks nullFlavo Bria, 78b94e 5d-3 [facility] 15:15:00 15:15:00 (Reason: usama Nolasco MD h0a-4430-6 l Bronchitis 3ac-3b795g [facility] ) 85863p 2014-07-06 2014-07-06 2 Weeks nullFlavo Bria, 6e8cf6 25-9 [facility] 15:15:00 15:15:00 (Reason: usama Nolasco MD 0q5-38p0-k l Bronchitis 2o2-6818qx [facility] ) 4p7490 2014-07-06 2014-07-06 2 Weeks nullFlavo Bria, 0we389 9b-6 Memoria 15:15:00 15:15:00 (Reason: usama Nolasco MD 865-4ac3-8 l Bronchitis s5f-8y3033 [facility] ) c1ca66 2014-07-06 2014-07-06 2 Weeks nullFlavo Bria, 07a74f e4-1 Memoria 15:15:00 15:15:00 (Reason: usama Nolasco MD 839-4154-a l Bronchitis fa0-z5g671 [facility] ) aa72e5 2014-07-06 2014-07-06 2 Weeks nullFlavo Bria, 124a2f 06-e Memoria 15:15:00 15:15:00 (Reason: usama Nolasco MD 3u6-6840-g l Bronchitis 0p5-281hy7 [facility] ) 5gj128 2014-07-06 2014-07-06 2 Weeks nullFlavo Bria, 2845f6 21-2 Memoria 15:15:00 15:15:00 (Reason: usama Nolasco MD 1n2-070y-6 l Bronchitis aa7-uft982 [facility] ) a28dcd 2014-07-06 2014-07-06 2 Weeks nullFlavo Bria, 02e0a9 48-2 Memoria 15:15:00 15:15:00 (Reason: usama Nolasco MD dca-4966-9 l Bronchitis 02e-28b9ef [facility] ) d50a77 2014-07-06 2014-07-06 2 Weeks nullFlavo Bria, 53dcba 0c-0 Memoria 15:15:00 15:15:00 (Reason: usama Nolasco MD 42f-4e35-b l Bronchitis 9f0-wb38hv [facility] ) f301c7 2014-07-06 2014-07-06 2 Weeks nullFlavo Bria, c895af 6a-c Memoria 15:15:00 15:15:00 (Reason: usama Nolasco MD 1g8-8zyr-2 l Bronchitis 1eb-592e06 [facility] ) wqc863 2014-07-06 2014-07-06 2 Weeks nullFlavo Bria, b151cc 0c-d Memoria 15:15:00 15:15:00 (Reason: usama Nolasco MD 7df-4131-9 l Bronchitis a88-0411t8 [facility] ) 39a342 2014-07-06 2014-07-06 2 Weeks nullFlavo Bria, 26a2f1 38-b Memoria 15:15:00 15:15:00 (Reason: usama Nolasco MD m75-1e90-5 l Bronchitis 9f5-12c7lp [facility] ) e622f5 2014-07-06 2014-07-06 2 Weeks nullFlavo Bria, e9c59c 64-2 Memoria 15:15:00 15:15:00 (Reason: usama Nolasco MD 87f-485b-8 l Bronchitis 37c-0c78de [facility] ) 319989 0392-03-30 2014-07-06 2 Weeks nullFlavo Bria, 445c9e e4-e Memoria 14:15:00 14:15:00 (Reason: usama Nolasco MD ab4-4751-8 l Bronchitis 01e-f97a03 [facility] ) 851af6 2014-07-06 2014-07-06 2 Weeks nullFlavo Bria, 80f7ce 10-9 Memoria 14:15:00 14:15:00 (Reason: usama Nolasco MD 9b6-4j9i-6 l Bronchitis 60f-8j5455 [facility] ) 4a2519 2014-07-06 2014-07-06 2 Weeks nullFlavo Bria, ece6f2 65-f Memoria 14:15:00 14:15:00 (Reason: usama Nolasco MD 8h4-73ac-f l Bronchitis j02-5rt7v6 [facility] ) 692401 9875-03-30 2014-07-06 2 Weeks nullFlavo Bria, cad75c 05-a Memoria 14:15:00 14:15:00 (Reason: usama Nolasco MD 21b-40cc-a l Bronchitis i27-11o1q9 [facility] ) 999e9a 2014-07-06 2014-07-06 2 Weeks nullFlavo Bria, 1d42fd 07-3 Memoria 14:15:00 14:15:00 (Reason: usama Nolasco MD 364-40d6-b l Bronchitis 8bc-cf16e5 [facility] ) d230ec 2014-07-06 2014-07-06 2 Weeks nullFlavo Bria, pv1848 47-4 Memoria 14:15:00 14:15:00 (Reason: usama Nolasco MD ce3-4a1e-9 l Bronchitis 6r5-zy3x9u [facility] ) c6e3d2 2014-07-06 2014-07-06 2 Weeks nullFlavo Bria, 445c9e e4-e Memoria 14:15:00 14:15:00 (Reason: usama Nolasco MD ab4-4751-8 l Bronchitis 01e-f97a03 [facility] ) 851af6 2014-07-06 2014-07-06 2 Weeks nullFlavo Bria, 80f7ce 10-9 Memoria 14:15:00 14:15:00 (Reason: usama Nolasco MD 0c5-3m3l-7 l Bronchitis 60f-8a5234 [facility] ) 1s0782 2014-07-06 2014-07-06 2 Weeks nullFlavo Bria, ece6f2 65-f Memoria 14:15:00 14:15:00 (Reason: usama Nolasco MD 4g3-14qb-n l Bronchitis c39-7pu8a0 [facility] ) 868175 5052-03-30 2014-07-06 2 Weeks nullFlavo Bria, cad75c 05-a Memoria 14:15:00 14:15:00 (Reason: usama Nolasco MD 21b-40cc-a l Bronchitis n83-81n9v2 [facility] ) 999e9a 2014-07-06 2014-07-06 2 Weeks nullFlavo Bria, 1d42fd 07-3 Memoria 14:15:00 14:15:00 (Reason: usama Nolasco MD 364-40d6-b l Bronchitis 8bc-cf16e5 [facility] ) d230ec 2014-07-06 2014-07-06 2 Weeks nullFlavo Bria, yg7306 47-4 Memoria 14:15:00 14:15:00 (Reason: usama Nolasco MD ce3-4a1e-9 l Bronchitis 6i6-px5j3y [facility] ) c6e3d2 2014-06-22 2014-06-22 3M X HTN, nullFlavo Bria, 3458 832e-d Memoria 15:00:00 15:00:00 Hyperlipid usama Nolasco MD 206-46f5-8 l emia , i26-6aa55v Linda nn myalgia 036579 8153-03-16 2014-06-22 3M X HTN, nullFlavo Bria, 81a4 afa7-f Memoria 15:00:00 15:00:00 Hyperlipid usama Nolasco MD v6m-24r9-7 l emia , y61-688xux Linda nn myalgia b4aaee 2014-06-22 2014-06-22 3M X HTN, nullFlavo Bria, bdcc 5a23-0 Memoria 15:00:00 15:00:00 Hyperlipid r Gaurav GRANT fac-4059-a l emia , 4fb-695459 Linda nn myalgia 2r1626 2014-06-22 2014-06-22 3M X HTN, nullFlavo Bria, 8fe6 3ee2-f Memoria 15:00:00 15:00:00 Hyperlipid r Gaurav GRANT 3a4-9154-w l emia , 5fb-jlm896 Linda nn myalgia n0t569 2014-06-22 2014-06-22 3M X HTN, nullFlavo Bria, 360e fade-5 Memoria 15:00:00 15:00:00 Hyperlipid r Gaurav GRANT x22-795t-4 l emia , 34a-270a5a Linda nn myalgia 6j6674 2014-06-22 2014-06-22 3M X HTN, nullFlavo Bria, fee3 3acf-9 Memoria 15:00:00 15:00:00 Hyperlipid r Gaurav GRANT 5o9-7v97-p l emia , 8p8-230f48 Linda nn myalgia 89ea4c 2014-06-22 2014-06-22 3M X HTN, nullFlavo Bria, c67e 850a-8 Memoria 15:00:00 15:00:00 Hyperlipid r Gaurav GRANT c1z-9212-i l emia , bf6-63d32e Linda nn myalgia 35c940 2014-06-22 2014-06-22 3M X HTN, nullFlavo Bria, f7f6 44f0-5 Memoria 15:00:00 15:00:00 Hyperlipid r Gaurav GRANT 54f-4e8f-9 l emia , 1c6-y98303 Linda nn myalgia 64dfde 2014-06-22 2014-06-22 3M X HTN, nullFlavo Bria, 8079 2a85-6 Memoria 15:00:00 15:00:00 Hyperlipid r Gaurav GRANT 539-45d3-9 l emia , 1bd-045cd5 Linda nn myalgia e663c0 2014-06-22 2014-06-22 3M X HTN, nullFlavo Bria, 75f4 0e56-5 Memoria 15:00:00 15:00:00 Hyperlipid r Gaurav GRANT ec7-403d-9 l emia , 0g8-z0lff0 Linda nn myalgia 0821e0 2014-06-22 2014-06-22 3M X HTN, nullFlavo Bria, ff97 9302-7 Memoria 15:00:00 15:00:00 Hyperlipid r Gaurav GRANT c6e-3529-x l emia , z3b-72312i Linda nn myalgia 54bdb4 2014-06-22 2014-06-22 3M X HTN, nullFlavo Bria, 1393 82fe-2 Memoria 15:00:00 15:00:00 Hyperlipid r Gaurav GRANT 932-45bb-9 l emia , 571-213241 Linda nn myalgia 882d24 2014-06-22 2014-06-22 3M X HTN, nullFlavo Bria, 4e84 f21e-5 Memoria 15:00:00 15:00:00 Hyperlipid r Gaurav GRANT 339-4ea2-9 l emia , 7ec-1202bc Linda nn myalgia 257a00 2014-06-22 2014-06-22 3M X HTN, nullFlavo Bria, 3a53 eab3-4 Memoria 15:00:00 15:00:00 Hyperlipid r Gaurav GRANT 329-4c32-a l emia , ef4-17caa8 Linda nn myalgia 5t669z 2014-06-22 2014-06-22 3M X HTN, nullFlavo Bria, 3458 832e-d Memoria 15:00:00 15:00:00 Hyperlipid r Gaurav GRANT 206-46f5-8 l emia , a25-3zs32m Linda nn myalgia 047513 1399-03-16 2014-06-22 3M X HTN, nullFlavo Bria, 81a4 afa7-f Memoria 15:00:00 15:00:00 Hyperlipid r Gaurav GRANT v5l-98p4-4 l emia , g27-572ero Linda nn myalgia b4aaee 2014-06-22 2014-06-22 3M X HTN, nullFlavo Bria, bdcc 5a23-0 Memoria 15:00:00 15:00:00 Hyperlipid r Gaurav GRANT fac-4059-a l emia , 4fb-829471 Linda nn myalgia 6x2703 2014-06-22 2014-06-22 3M X HTN, nullFlavo Bria, 8fe6 3ee2-f Memoria 15:00:00 15:00:00 Hyperlipid r Gaurav GRANT 7e9-0430-o l emia , 5fb-aok598 Linda nn myalgia o7e093 2014-06-22 2014-06-22 3M X HTN, nullFlavo Bria, 360e fade-5 Memoria 15:00:00 15:00:00 Hyperlipid r Gaurav GRANT m57-756u-5 l emia , 34a-270a5a Linda nn myalgia 6r5795 2014-06-22 2014-06-22 3M X HTN, nullFlavo Bria, fee3 3acf-9 Memoria 15:00:00 15:00:00 Hyperlipid r Gaurav GRANT 6n5-7s49-z l emia , 9w9-481k04 Linda nn myalgia 89ea4c 2014-06-22 2014-06-22 3M X HTN, nullFlavo Bria, c67e 850a-8 Memoria 15:00:00 15:00:00 Hyperlipid r Gaurav GRANT y3b-0772-w l emia , bf6-63d32e Linda nn myalgia 13n196 2014-06-22 2014-06-22 3M X HTN, nullFlavo Bria, f7f6 44f0-5 Memoria 15:00:00 15:00:00 Hyperlipid r Gaurav GRANT 54f-4e8f-9 l emia , 7p8-w69088 Linda nn myalgia 64dfde 2014-06-22 2014-06-22 3M X HTN, nullFlavo Bria, 8079 2a85-6 Memoria 15:00:00 15:00:00 Hyperlipid r Gaurav GRANT 539-45d3-9 l emia , 1bd-045cd5 Linda nn myalgia e663c0 2014-06-22 2014-06-22 3M X HTN, nullFlavo Bria, 75f4 0e56-5 Memoria 15:00:00 15:00:00 Hyperlipid r Gaurav GRANT ec7-403d-9 l emia , 8i8-k9jhj6 Linda nn myalgia 0821e0 2014-06-22 2014-06-22 3M X HTN, nullFlavo Bria, ff97 9302-7 Memoria 15:00:00 15:00:00 Hyperlipid r Gaurav GRANT d8v-7109-a l emia , k3f-65485a Linda nn myalgia 54bdb4 2014-06-22 2014-06-22 3M X HTN, nullFlavo Bria, 1393 82fe-2 Memoria 15:00:00 15:00:00 Hyperlipid r Gaurav GRANT 932-45bb-9 l emia , [id number] Linda nn myalgia 882d24 2014-06-22 2014-06-22 3M X HTN, nullFlavo Bria, 4e84 f21e-5 Memoria 15:00:00 15:00:00 Hyperlipid r Gaurav GRANT 339-4ea2-9 l emia , 7ec-1202bc Linda nn myalgia 257a00 2014-06-22 2014-06-22 3M X HTN, nullFlavo Bria, 3a53 eab3-4 Memoria 15:00:00 15:00:00 Hyperlipid r Gaurav GRANT 329-4c32-a l emia , ef4-17caa8 Linda nn myalgia 7d648a 2014-06-22 2014-06-22 3M X HTN, nullFlavo Bria, 5591 4059-a Memoria 14:00:00 14:00:00 Hyperlipid r Gaurav GRANT 5bc-420a-8 l emia , 420-de67d4 Linda nn myalgia ea0ec9 2014-06-22 2014-06-22 3M X HTN, nullFlavo Bria, f9cc 5035-8 Memoria 14:00:00 14:00:00 Hyperlipid r Gaurav GRANT k6h-8x86-b l emia , aad-4f92a9 Linda nn myalgia 74d425 2014-06-22 2014-06-22 3M X HTN, nullFlavo Bria, b10e d6fc-f Memoria 14:00:00 14:00:00 Hyperlipid r Gaurav GRANT 222-4e62-9 l emia , 87b-81f30d Lnida nn myalgia l6892d 2014-06-22 2014-06-22 3M X HTN, nullFlavo Bria, a384 74c7-7 Memoria 14:00:00 14:00:00 Hyperlipid r Gaurav GRANT r3d-331z-p l emia , 903-450d03 Linda nn myalgia 398246 2350-03-16 2014-06-22 3M X HTN, nullFlavo Bria, b2e0 a39a-7 Memoria 14:00:00 14:00:00 Hyperlipid r Gaurav GRANT 0ac-4305-b l emia , 66d-60cbf5 Linda nn myalgia 3p559r 2014-06-22 2014-06-22 3M X HTN, nullFlavo Bria, b716 0183-8 Memoria 14:00:00 14:00:00 Hyperlipid r Gaurav GRANT 489-46c6-8 l emia , o17-0fm3e0 Linda nn myalgia ee3a1a 2014-06-22 2014-06-22 3M X HTN, nullFlavo Bira, 5591 4059-a Memoria 14:00:00 14:00:00 Hyperlipid r Gaurav GRANT 5bc-420a-8 l emia , 420-de67d4 Linda nn myalgia ea0ec9 2014-06-22 2014-06-22 3M X HTN, nullFlavo Bria, f9cc 5035-8 Memoria 14:00:00 14:00:00 Hyperlipid r Gaurav GRANT l0c-1c33-b l emia , aad-4f92a9 Linda nn myalgia 22y310 2014-06-22 2014-06-22 3M X HTN, nullFlavo Bria, b10e d6fc-f Memoria 14:00:00 14:00:00 Hyperlipid r Gaurav GRANT 222-4e62-9 l emia , 87b-81f30d Linda nn myalgia o3736j 2014-06-22 2014-06-22 3M X HTN, nullFlavo Bria, a384 74c7-7 Memoria 14:00:00 14:00:00 Hyperlipid r Gaurav GRANT d2s-558h-x l emia , 903-450d03 Linda nn myalgia 341064 8017-03-16 2014-06-22 3M X HTN, nullFlavo Bria, b2e0 a39a-7 Memoria 14:00:00 14:00:00 Hyperlipid r Gaurav GRANT 0ac-4305-b l emia , 66d-60cbf5 Linda nn myalgia 4l747f 2014-06-22 2014-06-22 3M X HTN, nullFlavo Bria, b716 0183-8 Memoria 14:00:00 14:00:00 Hyperlipid r Gaurav GRANT 489-46c6-8 l emia , u68-5uj5g9 Linda nn myalgia ee3a1a 2014-05-18 2014-05-18 Unknown nullFlavo Bria, 454128 9e-5 Memoria 21:28:00 21:28:00 r Gaurav GRANT k70-65c7-9 l 44c-7d8e2f Linda nn ce5bd3 2014-05-18 2014-05-18 Unknown nullFlavo Bria, d8cd1e d6-9 Memoria 21:28:00 21:28:00 r Gaurav GRANT 7x8-73w8-o l s64-ct0t3w Linda nn t61263 2014-05-18 2014-05-18 Unknown nullFlavo Bria, 26c3d4 f9-0 Memoria 21:28:00 21:28:00 r Gaurav GRANT 70c-4491-a l 5q0-8b502l Linda nn c227ec 2014-05-18 2014-05-18 Unknown nullFlavo Bria, 472b38 88-5 Memoria 21:28:00 21:28:00 r Gaurav GRANT 182-431b-8 l cce-1b46b5 Linda nn c561a3 2014-05-18 2014-05-18 Unknown nullFlavo Bria, 143c52 ee-7 Memoria 21:28:00 21:28:00 r Gaurav GRANT 043-4043-9 l 37d-a1v950 Linda nn 0f5b56 2014-05-18 2014-05-18 Unknown nullFlavo Bria, 5is466 73-6 Memoria 21:28:00 21:28:00 r Gaurav GRANT 0ec-404f-b l u52-29ya5g Linda nn 0a41c2 2014-05-18 2014-05-18 Unknown nullFlavo Bria, 3f4e7e 8b-6 Memoria 21:28:00 21:28:00 r Gaurav GRNAT 107-4198-a l 7df-9ad1c2 Linda nn 5aea56 2014-05-18 2014-05-18 Unknown nullFlavo Bria, 66da78 4f-3 Memoria 21:28:00 21:28:00 r Gaurav GRANT 4e1-539e-x l 6b6-1v6si4 Linda nn 5b96c5 2014-05-18 2014-05-18 Unknown nullFlavo Bria, 118e91 58-b Memoria 21:28:00 21:28:00 r Gaurav GRANT bee-4172-b l e48-w5s2d6 Linda nn fad0db 2014-05-18 2014-05-18 Unknown nullFlavo Bria, f1c98b 93-6 Memoria 21:28:00 21:28:00 r Gaurav GRANT 33e-4546-b l 6q9-357u23 Linda nn 67w589 2014-05-18 2014-05-18 Unknown nullFlavo Bria, 1ko009 16-c Memoria 21:28:00 21:28:00 r Gaurav GRANT 141-4f60-9 l u9w-zf55rs Linda nn l1e009 2014-05-18 2014-05-18 Unknown nullFlavo Bria, 6c7927 c2-1 Memoria 21:28:00 21:28:00 r Gaurav GRANT 6c2-41s8-2 l a95-s27map Linda nn 6g5562 2014-05-18 2014-05-18 Unknown nullFlavo Bria, 0c0c9c f6-e Memoria 21:28:00 21:28:00 r Gaurav GRANT 23b-46cf-8 l 524-7b05d9 Linda nn 950b2b 2014-05-18 2014-05-18 Unknown nullFlavo Bria, 455ce7 14-0 Memoria 21:28:00 21:28:00 r Gaurav GRANT 052-4fe7-b l w97-1o3z7y Linda nn 4514c2 2014-05-18 2014-05-18 Unknown nullFlavo Bria, 616975 9e-5 Memoria 21:28:00 21:28:00 r Gaurav GRANT u70-41u9-1 l 44c-7d8e2f Linda nn ce5bd3 2014-05-18 2014-05-18 Unknown nullFlavo Bria, d8cd1e d6-9 Memoria 21:28:00 21:28:00 r Gaurav GRANT 5i7-23o9-o l m94-ax8i6j Linda nn g56990 2014-05-18 2014-05-18 Unknown nullFlavo Bria, 26c3d4 f9-0 Memoria 21:28:00 21:28:00 r Gaurav GRANT 70c-4491-a l 3r4-2i373r Linda nn c227ec 2014-05-18 2014-05-18 Unknown nullFlavo Bria, 472b38 88-5 Memoria 21:28:00 21:28:00 r Gaurav GRANT 182-431b-8 l cce-1b46b5 Linda nn c561a3 2014-05-18 2014-05-18 Unknown nullFlavo Bria, 143c52 ee-7 Memoria 21:28:00 21:28:00 r Gaurav GRANT 043-4043-9 l 37d-c2a324 Linda nn 0f5b56 2014-05-18 2014-05-18 Unknown nullFlavo Bria, 3ag392 73-6 Memoria 21:28:00 21:28:00 r Gaurav GRANT 0ec-404f-b l t17-74ou6s Linda nn 0a41c2 2014-05-18 2014-05-18 Unknown nullFlavo Bria, 3f4e7e 8b-6 Memoria 21:28:00 21:28:00 r Gaurav GRANT 107-4198-a l 7df-9ad1c2 Linda nn 5aea56 2014-05-18 2014-05-18 Unknown nullFlavo Bria, 66da78 4f-3 Memoria 21:28:00 21:28:00 r Gaurav GRANT 7z3-594k-m l 4z2-1f9ws7 Linda nn 5b96c5 2014-05-18 2014-05-18 Unknown nullFlavo Bria, 118e91 58-b Memoria 21:28:00 21:28:00 r Gaurav GRANT bee-4172-b l t01-i5f5m8 Linda nn fad0db 2014-05-18 2014-05-18 Unknown nullFlavo Bria, f1c98b 93-6 Memoria 21:28:00 21:28:00 r Gaurav GRANT 33e-4546-b l 1f6-617d15 Linda nn 88m946 2014-05-18 2014-05-18 Unknown nullFlavo Bria, 9cs410 16-c Memoria 21:28:00 21:28:00 r Gaurav GRANT 141-4f60-9 l g0i-fh98tx Linda nn o1c537 2014-05-18 2014-05-18 Unknown nullFlavo Bria, 2d3610 c2-1 Memoria 21:28:00 21:28:00 r Gaurav GRANT 3z8-29r0-4 l q20-w66bso Linda nn 2x4968 2014-05-18 2014-05-18 Unknown nullFlavo Bria, 0c0c9c f6-e Memoria 21:28:00 21:28:00 r Gaurav GRANT 23b-46cf-8 l 524-7b05d9 Linda nn 950b2b 2014-05-18 2014-05-18 Unknown nullFlavo Bria, 455ce7 14-0 Memoria 21:28:00 21:28:00 r Gaurav GRANT 052-4fe7-b l z32-1r2r6x Linda nn 4514c2 2014-05-18 2014-05-18 Unknown nullFlavo Bria, 129fd9 48-d Memoria 20:28:00 20:28:00 r Gaurav GRANT w5g-02hh-b l 261-1cba60 Linda nn 02e40f 2014-05-18 2014-05-18 Unknown nullFlavo Bria, 6qh947 23-3 Memoria 20:28:00 20:28:00 r Gaurav GRANT b37-4k70-d l 6u7-1383j7 Linda nn 24bab2 2014-05-18 2014-05-18 Unknown nullFlavo Bria, 7d06b5 54-d Memoria 20:28:00 20:28:00 r Garuav GRANT 5fb-415f-b l 20f-63g611 Linda nn 65ddea 2014-05-18 2014-05-18 Unknown nullFlavo Bria, 038735 ee-a Memoria 20:28:00 20:28:00 r Gaurav GRANT 769-429a-9 l [id number] [facility] nn 389682 5324-02-09 2014-05-18 Unknown nullFlavo Bria, d78496 84-1 Memoria 20:28:00 20:28:00 r Gaurav GRANT 685-4be7-9 l 380-e657fb [facility] uj3849 2014-05-18 2014-05-18 Unknown nullFlavo Bria, 3ae0f2 e0-d Memoria 20:28:00 20:28:00 r Gaurav GRANT l56-3b0w-w l 3s1-5284k0 [facility] nn 8c6c5a 2014-05-18 2014-05-18 Unknown nullFlavo Bria, 129fd9 48-d Memoria 20:28:00 20:28:00 r Gauarv GRANT e0o-02df-a l 261-1cba60 [facility] nn 02e40f 2014-05-18 2014-05-18 Unknown nullFlavo Bria, 0bl473 23-3 Memoria 20:28:00 20:28:00 r Gaurav GRANT f02-7j98-j l 8b5-1785c5 [facility] nn 24bab2 2014-05-18 2014-05-18 Unknown nullFlavo Bria, 7d06b5 54-d Memoria 20:28:00 20:28:00 r Gaurav GRANT 5fb-415f-b l 20f-62a034 [facility] nn 65ddea 2014-05-18 2014-05-18 Unknown nullFlavo Bria, 789387 ee-a Mem[facility] 20:28:00 20:28:00 r Gaurav GRANT 769-429a-9 l 008-292420 [facility] nn 409996 3058-02-09 2014-05-18 Unknown nullFlavo Bria, p28435 84-1 Mem[facility] 20:28:00 20:28:00 usama Nolasco MD 685-4be7-9 l 380-e657fb [facility] vb1525 2014-05-18 2014-05-18 Unknown nullFlavo Bria, 3ae0f2 e0-d Mem[facility] 20:28:00 20:28:00 usama Nolasco MD x09-1h4k-h l 4h7-6701g4 [facility] nn 8c6c5a 2014-03-23 2014-03-23 3 Months nullFlavo Bria, 6a8db a8a-7 [facility]oria 16:15:00 16:15:00 (Reason: usama Nolasco MD z92-5777-6 l Thyroid , 6aa-e6c2bd Her mcguire cholestero 2cbaaa l ) 2014-03-23 2014-03-23 3 Months nullFlavo Bria, cdfe9 db6-c [facility] 16:15:00 16:15:00 (Reason: usama Nolasco MD k68-1qpt-s l Thyroid , 36c-d124ef Her mcguire cholestero 47fb8f l ) 2014-03-23 2014-03-23 3 Months nullFlavo Bria, 9ef87 370-c [facility] 16:15:00 16:15:00 (Reason: usama Nolasco MD 7b0-1h26-e l Thyroid , x4h-g29811 Her mcguire cholestero 49596t l ) 2014-03-23 2014-03-23 3 Months nullFlavo Bria, bf1a2 ecc-b [facility] 16:15:00 16:15:00 (Reason: usama Nolasco MD 875-4230-9 l Thyroid , 071-035e57 Her mcguire cholestero [id number] l ) 2014-03-23 2014-03-23 3 Months nullFlavo Bria, d0b1d 3cb-e [facility] 16:15:00 16:15:00 (Reason: usama Nolasco MD p12-0k9u-9 l Thyroid , g9l-h94882 Her mcguire cholestero 902e3c l ) 2014-03-23 2014-03-23 3 Months nullFlavo Bria, 75efc c6d-c [facility] 16:15:00 16:15:00 (Reason: usmaa Nolasco MD ac2-429f-9 l Thyroid , 525-17fd00 Her mcguire cholestero wsu485 l ) 2014-03-23 2014-03-23 3 Months nullFlavo Bria, 4ca68 697-9 [facility] 16:15:00 16:15:00 (Reason: usama Nolasco MD 94c-4228-8 l Thyroid , 00a-8b71fb Her mcguire cholestero 5ts544 l ) 2014-03-23 2014-03-23 3 Months nullFlavo Bria, 952fa 7d5-e [facility] 16:15:00 16:15:00 (Reason: usama Nolasco MD bf4-4cdb-9 l Thyroid , 9fd-6f55a2 Her mcguire cholestero 6g0768 l ) 2014-03-23 2014-03-23 3 Months nullFlavo Bria, 82b75 297-9 [facility] 16:15:00 16:15:00 (Reason: usama Nolasco MD c8j-26o7-6 l Thyroid , cbd-5294a9 Her mcguire cholestero 4df9e0 l ) 2014-03-23 2014-03-23 3 Months nullFlavo Bria, fb8e7 0c9-6 [facility] 16:15:00 16:15:00 (Reason: usama Nolasco MD r4e-62c0-w l Thyroid , p14-77bu73 Her mcguire cholestero 4dfb20 l ) 2014-03-23 2014-03-23 3 Months nullFlavo Bria, a7883 cea-5 Memoria 16:15:00 16:15:00 (Reason: usama Nolasco MD 7r1-815o-v l Thyroid , b96-6j9mc5 Her mcguire cholestero [id number] l ) 2014-03-23 2014-03-23 3 Months nullFlavo Bria, 8fea7 8aa-f Memoria 16:15:00 16:15:00 (Reason: usama Nolasco MD adc-4090-b l Thyroid , i97-i3q5u8 Her mcguire cholestero 8375a1 l ) 2014-03-23 2014-03-23 3 Months nullFlavo Bria, 1a53d 1ae-f Memoria 16:15:00 16:15:00 (Reason: usama Nolasco MD 737-4031-8 l Thyroid , 48a-ba45e2 Her mcguire cholestero 15102m l ) 2014-03-23 2014-03-23 3 Months nullFlavo Bria, ce8ac a68-8 Memoria 16:15:00 16:15:00 (Reason: usama Nolasco MD q79-032t-2 l Thyroid , 5x0-3l901z Her mcguire cholestero [id number] l ) 2014-03-23 2014-03-23 3 Months nullFlavo Bria, 8caba cc6-7 Memoria 16:15:00 16:15:00 (Reason: usama Nolasco MD x76-05m9-1 l Thyroid , [id number] Her mcguire cholestero a197b8 l ) 2014-03-23 2014-03-23 3 Months nullFlavo Bria, 6a8db a8a-7 Memoria 16:15:00 16:15:00 (Reason: usama Nolasco MD q12-6617-8 l Thyroid , 6aa-e6c2bd Her mcguire cholestero 2cbaaa l ) 2014-03-23 2014-03-23 3 Months nullFlavo Bria, cdfe9 db6-c Memoria 16:15:00 16:15:00 (Reason: usama Nolasco MD p84-4ook-b l Thyroid , 36c-d124ef Her mcguire cholestero 47fb8f l ) 2014-03-23 2014-03-23 3 Months nullFlavo Bria, 9ef87 370-c Memoria 16:15:00 16:15:00 (Reason: usama Nolasco MD 8f3-6n16-e l Thyroid , n0g-y88538 Her mcguire cholestero 43215c l ) 2014-03-23 2014-03-23 3 Months nullFlavo Bria, bf1a2 ecc-b Memoria 16:15:00 16:15:00 (Reason: usama Nolasco MD 875-4230-9 l Thyroid , 071-035e57 Her mgcuire cholestero h00530 l ) 2014-03-23 2014-03-23 3 Months nullFlavo Bria, d0b1d 3cb-e Memoria 16:15:00 16:15:00 (Reason: usama Nolasco MD z61-4c6x-7 l Thyroid , d5q-m43038 Her mcguire cholestero 902e3c l ) 2014-03-23 2014-03-23 3 Months nullFlavo Bria, 75efc c6d-c Memoria 16:15:00 16:15:00 (Reason: usama Nolasco MD ac2-429f-9 l Thyroid , 525-17fd00 Her mcguire cholestero xym328 l ) 2014-03-23 2014-03-23 3 Months nullFlavo Bria, 4ca68 697-9 Memoria 16:15:00 16:15:00 (Reason: usama Nolasco MD 94c-4228-8 l Thyroid , 00a-8b71fb Her mcguire cholestero 2hv848 l ) 2014-03-23 2014-03-23 3 Months nullFlavo Bria, 952fa 7d5-e Memoria 16:15:00 16:15:00 (Reason: usama Nolasco MD bf4-4cdb-9 l Thyroid , 9fd-6f55a2 Her mcguire cholestero 0j2380 l ) 2014-03-23 2014-03-23 3 Months nullFlavo Bria, 82b75 297-9 Memoria 16:15:00 16:15:00 (Reason: usama Nolasco MD i9m-75w5-6 l Thyroid , cbd-5294a9 Her mcguire cholestero 4df9e0 l ) 2014-03-23 2014-03-23 3 Months nullFlavo Bria, fb8e7 0c9-6 Memoria 16:15:00 16:15:00 (Reason: usama Nolasco MD j0y-94a1-i l Thyroid , g97-40mc93 Her mcguire cholestero 4dfb20 l ) 2014-03-23 2014-03-23 3 Months nullFlavo Bria, a7883 cea-5 Memoria 16:15:00 16:15:00 (Reason: usama Nolasco MD 6g1-742e-k l Thyroid , o34-4j4yq2 Her mcguire cholestero 533885 l ) 2014-03-23 2014-03-23 3 Months nullFlavo Bria, 8fea7 8aa-f Memoria 16:15:00 16:15:00 (Reason: usama Nolasco MD adc-4090-b l Thyroid , g04-f2r8a1 Her mcguire cholestero 8375a1 l ) 2014-03-23 2014-03-23 3 Months nullFlavo Bria, 1a53d 1ae-f Memoria 16:15:00 16:15:00 (Reason: usama Nolasco MD 737-4031-8 l Thyroid , 48a-ba45e2 Her mcguire cholestero 25185g l ) 2014-03-23 2014-03-23 3 Months nullFlavo Bria, ce8ac a68-8 Memoria 16:15:00 16:15:00 (Reason: usama oNlasco MD i62-156u-9 l Thyroid , 3j5-4r144e Her mcguire cholestero o9r528 l ) 2014-03-23 2014-03-23 3 Months nullFlavo Bria, 8caba cc6-7 Memoria 16:15:00 16:15:00 (Reason: usama Nolasco MD w71-06t7-0 l Thyroid , [id number] Her mcguire cholestero a197b8 l ) 2014-03-23 2014-03-23 3 Months nullFlavo Bria, ec57f b9c-8 Memoria 15:15:00 15:15:00 (Reason: usama Nolasco MD ffd-4c4c-b l Thyroid , x2k-7w3ye3 Her mcguire cholestero 626b74 l ) 2014-03-23 2014-03-23 3 Months nullFlavo Bria, e9164 66c-8 Memoria 15:15:00 15:15:00 (Reason: usama Nolasco MD s52-5dp1-x l Thyroid , 271-29404m Her mcguire cholestero e39fee l ) 2014-03-23 2014-03-23 3 Months nullFlavo Bria, a7641 5be-d Memoria 15:15:00 15:15:00 (Reason: usama Nolasco MD fe8-47bc-a l Thyroid , q8y-538974 Her mcguire cholestero coy087 l ) 2014-03-23 2014-03-23 3 Months nullFlavo Bria, 07616 e8a-c Memoria 15:15:00 15:15:00 (Reason: usama Nolasco MD w75-4wl5-c l Thyroid , 30c-f56b54 Her mcguire cholestero 5b14b6 l ) 2014-03-23 2014-03-23 3 Months nullFlavo Bria, 06c75 314-b Memoria 15:15:00 15:15:00 (Reason: usama Nolasco MD 0p9-3246-2 l Thyroid , 345-0a4a07 Her mcguire cholestero c7e7eb l ) 2014-03-23 2014-03-23 3 Months nullFlavo Bria, 67367 ee3-f Memoria 15:15:00 15:15:00 (Reason: usama Nolasco MD 598-4a5f-8 l Thyroid , dfc-699fe6 Her mcguire cholestero b586e6 l ) 2014-03-23 2014-03-23 3 Months nullFlavo Bria, 47560 ee3-f Memoria 15:15:00 15:15:00 (Reason: usama Nolasco MD 598-4a5f-8 l Thyroid , dfc-699fe6 Her mcguire cholestero b586e6 l ) 2014-03-23 2014-03-23 3 Months nullFlavo Bria, ec57f b9c-8 Memoria 15:15:00 15:15:00 (Reason: usama Nolasco MD ffd-4c4c-b l Thyroid , k2t-7a9gf7 Her mcguire cholestero 626b74 l ) 2014-03-23 2014-03-23 3 Months nullFlavo Bria, e9164 66c-8 Memoria 15:15:00 15:15:00 (Reason: usama Nolasco MD l95-6lu4-v l Thyroid , 271-56189k Her mcguire cholestero e39fee l ) 2014-03-23 2014-03-23 3 Months nullFlavo Bria, a7641 5be-d Memoria 15:15:00 15:15:00 (Reason: usama Nolasco MD fe8-47bc-a l Thyroid , [id number]-311101 Her mcguire cholestero ebw205 l ) 2014-03-23 2014-03-23 3 Months nullFlavo Bria, 58818 e8a-c Memoria 15:15:00 15:15:00 (Reason: usama Nolasco MD n20-3ks1-r l Thyroid , 30c-f56b54 Her mcguire cholestero 5b14b6 l ) 2014-03-23 2014-03-23 3 Months nullFlavo Bria, 06c75 314-b Memoria 15:15:00 15:15:00 (Reason: usama Nolasco MD 6m5-4205-9 l Thyroid , 345-0a4a07 Her shayla simmons [id number] l ) 2014-03-23 2014-03-23 Outpatient [facility], [id number] [facility] 10:15:00 10:15:00 Gaurav Nolasco MD alWork s 2014-02-04 2014-02-04 Medication nullFlavo Bria, e64 897f6-j [facility] 19:30:00 19:30:00 s Issue usama Nolasco MD ce0-4911-9 l 44f-187540 Linda nn k6f464 2014-02-04 2014-02-04 Medication nullFlavo Bria, a73 8n571-3 [facility] 19:30:00 19:30:00 s Issue usama Nolasco MD 366-49e2-8 l 8df-d31b85 Linda nn 342042 8804-10-29 2014-02-04 Medication nullFlavo Bria, 9bf nj65s-2 [facility] 19:30:00 19:30:00 s Issue usama Nolasco MD 858-4d3e-9 l y50-pd97uj Linda nn 2cj537 2014-02-04 2014-02-04 Medication nullFlavo Bria, 482 98qp4-v [facility] 19:30:00 19:30:00 s Issue usama Nolasco MD ce4-481f-8 l 127-f730b2 Linda nn 919ec4 2014-02-04 2014-02-04 Medication nullFlavo Bria, d45 19j79-2 [facility] 19:30:00 19:30:00 s Issue usama Nolasco MD 38b-43a2-8 l 9h3-3d37kn Linda nn 99b0c5 2014-02-04 2014-02-04 Medication nullFlavo Bria, ce0 eh4x5-9 [facility] 19:30:00 19:30:00 s Issue usama Nolasco MD 48e-4319-a l cea-0932e1 Linda nn zu3257 2014-02-04 2014-02-04 Medication nullFlavo Bria, 283 f2285-f [facility] 19:30:00 19:30:00 s Issue usama Nolasco MD t27-3v02-9 l 5t2-l7u5q7 Linda nn 68239i 2014-02-04 2014-02-04 Medication nullFlavo Bria, b56 5h208-3 [facility] 19:30:00 19:30:00 s Issue usama Nolasco MD t21-74is-k l 10e-26f781 [facility] nn 93k406 2014-02-04 2014-02-04 Medication nullFlavo Bria, 786 96lw8-6 [facility] 19:30:00 19:30:00 s Issue usama Nolasco MD bc7-4162-8 l 23a-ea1bdf [facility] nn sr976s 2014-02-04 2014-02-04 Medication nullFlavo Bria, 294 86p93-t [facility] 19:30:00 19:30:00 s Issue usama Nolasco MD 94f-4eb8-a l 731-be0e5c [facility] nn 1303a5 2014-02-04 2014-02-04 Medication nullFlavo Bria, 974 ffd06-0 [facility] 19:30:00 19:30:00 s Issue usama Nolasco MD 8a0-43le-1 l 3e0-2905j5 [facility] nn ae66ac 2014-02-04 2014-02-04 Medication nullFlavo Bria, 6d7 15ha0-1 [facility] 19:30:00 19:30:00 s Issue usama Nolasco MD bf7-4d98-a l 41b-cd3a74 [facility] nn 980b6f 2014-02-04 2014-02-04 Medication nullFlavo Bria, 738 536x1-3 [facility] 19:30:00 19:30:00 s Issue usama Nolasco MD 4s1-565y-2 l y8n-8p5iqr [facility] nn a3d74b 2014-02-04 2014-02-04 Medication nullFlavo Bria, 425 3jn2i-v [facility] 19:30:00 19:30:00 s Issue usama Nolasco MD 622-4348-b l ef5-47m654 [facility] nn [id number] 2014-02-04 2014-02-04 Medication nullFlavo Bria, 2b1 1x654-7 [facility] 19:30:00 19:30:00 s Issue usama Nolasco MD 2t9-57e3-g l shakir-b7fa75 Linda nn 61695z 2014-02-04 2014-02-04 Medication nullFlavo Bria, 29d 1e754-5 [facility] 19:30:00 19:30:00 s Issue usama Nolasco MD o60-9516-0 l 870-72ae9e Linda nn 376b9a 2014-02-04 2014-02-04 Medication nullFlavo Bria, e64 463p8-q [facility] 19:30:00 19:30:00 s Issue usama Nolasco MD ce0-4911-9 l 44f-547901 Linda nn j6h394 2014-02-04 2014-02-04 Medication nullFlavo Bria, a73 9x937-1 [facility] 19:30:00 19:30:00 s Issue usama Nolasco MD 366-49e2-8 l 8df-d31b85 Linda nn [id number] 4081-10-29 2014-02-04 Medication nullFlavo Bria, 9bf ox38k-1 [facility] 19:30:00 19:30:00 s Issue usama Nolasco MD 858-4d3e-9 l f59-ja50qn Linda nn 8dn558 2014-02-04 2014-02-04 Medication nullFlavo Bria, 482 23km9-q [facility] 19:30:00 19:30:00 s Issue usama Nolasco MD ce4-481f-8 l 127-f730b2 Linda nn 919ec4 2014-02-04 2014-02-04 Medication nullFlavo Bria, d45 77t62-0 [facility] 19:30:00 19:30:00 s Issue usama Nolasco MD 38b-43a2-8 l 5p6-3a38by Linda nn 99b0c5 2014-02-04 2014-02-04 Medication nullFlavo Bria, ce0 za6m6-3 [facility] 19:30:00 19:30:00 s Issue usama Nolasco MD 48e-4319-a l cea-0932e1 Linda nn ht3881 2014-02-04 2014-02-04 Medication nullFlavo Bria, 283 l7174-p [facility] 19:30:00 19:30:00 s Issue usama Nolasco MD t76-3c39-2 l 1c4-u4i7s9 Linda nn 09990n 2014-02-04 2014-02-04 Medication nullFlavo Bria, b56 6z250-5 [facility] 19:30:00 19:30:00 s Issue usama Nolasco MD x80-96yg-w l 10e-57x222 [facility] nn 60g099 2014-02-04 2014-02-04 Medication nullFlavo Bria, 786 91gx1-5 [facility] 19:30:00 19:30:00 s Issue usama Nolasco MD bc7-4162-8 l 23a-ea1bdf [facility] nn zi393e 2014-02-04 2014-02-04 Medication nullFlavo Bria, 294 14c69-a [facility] 19:30:00 19:30:00 s Issue usama Nolasco MD 94f-4eb8-a l 731-be0e5c [facility] nn 1303a5 2014-02-04 2014-02-04 Medication nullFlavo Bria, 974 ffd06-0 [facility] 19:30:00 19:30:00 s Issue usama Nolasco MD 6c4-79an-4 l 3y9-2144g1 [facility] nn ae66ac 2014-02-04 2014-02-04 Medication nullFlavo Bria, 6d7 43xa5-9 [facility] 19:30:00 19:30:00 s Issue usama Nolasco MD bf7-4d98-a l 41b-cd3a74 [facility] nn 980b6f 2014-02-04 2014-02-04 Medication nullFlavo Bria, 738 853o0-0 [facility] 19:30:00 19:30:00 s Issue usama Nolasco MD 7g6-943l-1 l u0g-1v8jar [facility] nn a3d74b 2014-02-04 2014-02-04 Medication nullFlavo Bria, 425 5re1j-g [facility] 19:30:00 19:30:00 s Issue usama Nolasco MD 622-4348-b l ef5-41w468 [facility] nn g08857 2014-02-04 2014-02-04 Medication nullFlavo Bria, 2b1 9e707-4 [facility] 19:30:00 19:30:00 s Issue usama Nolasco MD 1y5-72p8-v l shakir-b7fa75 [facility] nn 00507t 2014-02-04 2014-02-04 Medication nullFlavo Bria, 29d 9k448-5 [facility] 19:30:00 19:30:00 s Issue usama Nolasco MD w22-9765-7 l 870-72ae9e [facility] nn 376b9a 2014-02-04 2014-02-04 Medication nullFlavo Bria, 858 m5483-7 [facility] 18:30:00 18:30:00 s Issue usama Nolasco MD fde-4ea1-b l l9a-1kz190 [facility] nn aebc34 2014-02-04 2014-02-04 Medication nullFlavo Bria, 786 r8pws-n [facility] 18:30:00 18:30:00 s Issue usama Nolasco MD j3b-699q-l l 28e-z2y991 [facility] nn 82bce3 2014-02-04 2014-02-04 Medication nullFlavo Bria, 6a4 q16x3-7 [facility] 18:30:00 18:30:00 s Issue usama Nolasco MD w01-4932-0 l ca3-d26a72 [facility] nn 089955 3367-10-29 2014-02-04 Medication nullFlavo Bria, 6a3 33143-5 [facility] 18:30:00 18:30:00 s Issue usama Nolasco MD df3-470e-8 l ec1-ffc0b6 [facility] nn 9dd6ca 2014-02-04 2014-02-04 Medication nullFlavo Bria, c72 x9u2x-5 [facility] 18:30:00 18:30:00 s Issue usama Nolasco MD 19d-471a-8 l o0g-n366rm [facility] nn 65052h 2014-02-04 2014-02-04 Medication nullFlavo Bria, 289 g8455-8 [facility] 18:30:00 18:30:00 s Issue suama Nolasco MD 7o0-318p-e l s95-5b6667 [facility] nn eai730 2014-02-04 2014-02-04 Medication nullFlavo Bria, 858 b4557-2 [facility] 18:30:00 18:30:00 s Issue r Gaurav GRANT fde-4ea1-b l g0g-4bj860 [facility] nn aebc34 2014-02-04 2014-02-04 Medication nullFlavo Bria, 786 x9nue-n [facility] 18:30:00 18:30:00 s Issue r Gaurav GRANT p6m-034s-e l 28e-k5n108 [facility] nn 82bce3 2014-02-04 2014-02-04 Medication nullFlavo Bria, 6a4 a71i3-7 [facility] 18:30:00 18:30:00 s Issue r Gaurav GRANT a08-2436-6 l ca3-d26a72 [facility] nn 918022 8845-10-29 2014-02-04 Medication nullFlavo Bria, 6a3 65876-8 [facility] 18:30:00 18:30:00 s Issue r Gaurav GRANT df3-470e-8 l ec1-ffc0b6 [facility] nn 9dd6ca 2014-02-04 2014-02-04 Medication nullFlavo Bria, c72 t0k5g-5 [facility] 18:30:00 18:30:00 s Issue r Gaurav GRANT 19d-471a-8 l u8s-b197op [facility] nn 24309y 2014-02-04 2014-02-04 Medication nullFlavo Bria, 289 i5910-2 [facility] 18:30:00 18:30:00 s Issue r Gaurav GRANT 1r9-030j-r l q11-0f9715 [facility] nn fzj713 2014-02-04 2014-02-04 Outpatient Bria Fraser, 152 773 [facility]inic 13:30:00 13:30:00 Gaurav Nolasco MD alWork s 2013-12-18 2013-12-18 2 Weeks nullFlavo Bria, f681b0 aa-6 [facility] 14:45:00 14:45:00 (Reason: usama Nolasco MD ef7-4e6b-a l Thyroid , 618-0372f4 Her mcguire fibromyalg f56175 ia ,osteoporo sis ) 2013-12-18 2013-12-18 2 Weeks nullFlavo Bria, 931288 d5-e [facility] 14:45:00 14:45:00 (Reason: usama Nolasco MD cb2-4bdf-b l Thyroid , 2aa-8294ce Her mcguire fibromyalg 919fc0 ia ,osteoporo sis ) 2013-12-18 2013-12-18 2 Weeks nullFlavo Bria, 4k879y 9d-b [facility] 14:45:00 14:45:00 (Reason: usama Nolasco MD 415-440c-b l Thyroid , 814-bfff4f Her mcguire fibromyalg a9c7ac ia ,osteoporo sis ) 2013-12-18 2013-12-18 2 Weeks nullFlavo Bria, 02d81f e4-7 [facility] 14:45:00 14:45:00 (Reason: usama Nolasco MD i97-59x7-6 l Thyroid , 996-r9456a Her mcguire fibromyalg du8391 ia ,osteoporo sis ) 2013-12-18 2013-12-18 2 Weeks nullFlavo Bria, 4b3ef9 aa-3 [facility] 14:45:00 14:45:00 (Reason: usama Nolasco MD 06d-4ad8-9 l Thyroid , q18-tp1l6z Her mcguire fibromyalg 999b57 ia ,osteoporo sis ) 2013-12-18 2013-12-18 2 Weeks nullFlavo Bria, b8e0ca 19-e [facility] 14:45:00 14:45:00 (Reason: usama Nolasco MD 443-4068-9 l Thyroid , 5r9-770h63 Her mcguire fibromyalg 16edce ia ,osteoporo sis ) 2013-12-18 2013-12-18 2 Weeks nullFlavo Bria, f2ebe3 98-a [facility] 14:45:00 14:45:00 (Reason: usama Nolasco MD 1f8-17aq-c l Thyroid , v69-6f8h18 Her mcguire fibromyalg 8q467m ia ,osteoporo sis ) 2013-12-18 2013-12-18 2 Weeks nullFlavo Bria, 6846d4 45-3 [facility] 14:45:00 14:45:00 (Reason: usama Nolasco MD x60-3871-w l Thyroid , 8ad-3d4b20 Her mcguire fibromyalg 28cf4d ia ,osteoporo sis ) 2013-12-18 2013-12-18 2 Weeks nullFlavo Bria, 35f2d6 6c-7 [facility] 14:45:00 14:45:00 (Reason: usama Nolasco MD 118-4906-8 l Thyroid , aee-t6u558 Her mcguire fibromyalg 85803u ia ,osteoporo sis ) 2013-12-18 2013-12-18 2 Weeks nullFlavo Bria, efaae2 26-f [facility] 14:45:00 14:45:00 (Reason: usama Nolasco MD 446-4378-9 l Thyroid , 146-0cj152 Her mcguire fibromyalg 663e1d ia ,osteoporo sis ) 2013-12-18 2013-12-18 2 Weeks nullFlavo Bria, 6ae78b dc-5 [facility] 14:45:00 14:45:00 (Reason: usama Nolasco MD 958-4cfb-8 l Thyroid , p6d-k13v67 Her mcguire fibromyalg 8b3c15 ia ,osteoporo sis ) 2013-12-18 2013-12-18 2 Weeks nullFlavo Bria, 70ad16 9e-5 [facility] 14:45:00 14:45:00 (Reason: usama Nolasco MD 654-41b7-8 l Thyroid , e81-k7yr1a Her mcguire fibromyalg 60b0ba ia ,osteoporo sis ) 2013-12-18 2013-12-18 2 Weeks nullFlavo Bria, 2k5415 24-0 [facility] 14:45:00 14:45:00 (Reason: usama Nolasco MD ab5-4029-9 l Thyroid , 2be-960c52 Her mcguire fibromyalg 518694 ia ,osteoporo sis ) 2013-12-18 2013-12-18 2 Weeks nullFlavo Bria, 91847o db-0 Mem[facility] 14:45:00 14:45:00 (Reason: usama Nolasco MD 524-410e-a l Thyroid , gladys-eca3b2 Her mcguire fibromyalg 82d1f2 ia ,osteoporo sis ) 2013-12-18 2013-12-18 2 Weeks nullFlavo Bria, 82c0c6 a4-9 [facility] 14:45:00 14:45:00 (Reason: usama Nolasco MD b05-3f98-x l Thyroid , m46-6vuw18 Her mcguire fibromyalg 130fd0 ia ,osteoporo sis ) 2013-12-18 2013-12-18 2 Weeks nullFlavo Bria, 2e7a78 1c-1 [facility]oria 14:45:00 14:45:00 (Reason: usama Nolasco MD 991-41de-a l Thyroid , z4u-2ok5b4 Her mcguire fibromyalg 2x5294 ia ,osteoporo sis ) 2013-12-18 2013-12-18 2 Weeks nullFlavo Bria, f681b0 aa-6 [facility] 14:45:00 14:45:00 (Reason: usama Nolasco MD ef7-4e6b-a l Thyroid , 618-0372f4 Her mcguire fibromyalg n39144 ia ,osteoporo sis ) 2013-12-18 2013-12-18 2 Weeks nullFlavo Bira, 006473 d5-e [facility] 14:45:00 14:45:00 (Reason: usama Nolasco MD cb2-4bdf-b l Thyroid , 2aa-8294ce Her mcguire fibromyalg 919fc0 ia ,osteoporo sis ) 2013-12-18 2013-12-18 2 Weeks nullFlavo Bria, 7m201g 9d-b [facility] 14:45:00 14:45:00 (Reason: usama Nolasco MD 415-440c-b l Thyroid , 814-bfff4f Her mcguire fibromyalg a9c7ac ia ,osteoporo sis ) 2013-12-18 2013-12-18 2 Weeks nullFlavo Bria, 02d81f e4-7 [facility] 14:45:00 14:45:00 (Reason: usama Nolasco MD u88-35n5-2 l Thyroid , 996-c7599z Her mcguire fibromyalg lx7841 ia ,osteoporo sis ) 2013-12-18 2013-12-18 2 Weeks nullFlavo Bria, 4b3ef9 aa-3 [facility] 14:45:00 14:45:00 (Reason: usama Nolasco MD 06d-4ad8-9 l Thyroid , o23-if8s7c Her mcguire fibromyalg 999b57 ia ,osteoporo sis ) 2013-12-18 2013-12-18 2 Weeks nullFlavo Bria, b8e0ca 19-e [facility] 14:45:00 14:45:00 (Reason: usama Nolasco MD 443-4068-9 l Thyroid , 7y8-627r04 Her mcguire fibromyalg 16edce ia ,osteoporo sis ) 2013-12-18 2013-12-18 2 Weeks nullFlavo Bria, f2ebe3 98-a [facility] 14:45:00 14:45:00 (Reason: usama Nolasco MD 1p6-12wn-o l Thyroid , q76-6h1z79 Her mcguire fibromyalg 6d587i ia ,osteoporo sis ) 2013-12-18 2013-12-18 2 Weeks nullFlavo Bria, 6846d4 45-3 [facility] 14:45:00 14:45:00 (Reason: usama Nolasco MD o05-0536-f l Thyroid , 8ad-3d4b20 Her mcguire fibromyalg 28cf4d ia ,osteoporo sis ) 2013-12-18 2013-12-18 2 Weeks nullFlavo Bria, 35f2d6 6c-7 [facility] 14:45:00 14:45:00 (Reason: usama Nolasco MD 118-4906-8 l Thyroid , aee-r9g264 Her mcguire fibromyalg 21058z ia ,osteoporo sis ) 2013-12-18 2013-12-18 2 Weeks nullFlavo Bria, efaae2 26-f [facility] 14:45:00 14:45:00 (Reason: usama Nolasco MD 446-4378-9 l Thyroid , 146-9en766 Her mcguire fibromyalg 663e1d ia ,osteoporo sis ) 2013-12-18 2013-12-18 2 Weeks nullFlavo Bria, 6ae78b dc-5 [facility] 14:45:00 14:45:00 (Reason: usama Nolasco MD 958-4cfb-8 l Thyroid , i6l-p10t28 Her mcguire fibromyalg 8b3c15 ia ,osteoporo sis ) 2013-12-18 2013-12-18 2 Weeks nullFlavo Bria, 70ad16 9e-5 [facility] 14:45:00 14:45:00 (Reason: usama Nolasco MD 654-41b7-8 l Thyroid , u42-u8bq2t Her mcguire fibromyalg 60b0ba ia ,osteoporo sis ) 2013-12-18 2013-12-18 2 Weeks nullFlavo Bria, 7n4435 24-0 [facility] 14:45:00 14:45:00 (Reason: usama Nolasco MD ab5-4029-9 l Thyroid , 2be-960c52 Her mcguire fibromyalg 927617 ia ,osteoporo sis ) 2013-12-18 2013-12-18 2 Weeks nullFlavo Bria, 51517l db-0 [facility] 14:45:00 14:45:00 (Reason: usama Nolasco MD 524-410e-a l Thyroid , gladys-eca3b2 Her mcguire fibromyalg 82d1f2 ia ,osteoporo sis ) 2013-12-18 2013-12-18 2 Weeks nullFlavo Bria, 82c0c6 a4-9 [facility] 14:45:00 14:45:00 (Reason: usama Nolasco MD v89-5i67-r l Thyroid , x74-3emo35 Her mcguire fibromyalg 130fd0 ia ,osteoporo sis ) 2013-12-18 2013-12-18 2 Weeks nullFlavo Bria, 2e7a78 1c-1 [facility] 14:45:00 14:45:00 (Reason: usama Nolasco MD 991-41de-a l Thyroid , s5o-7zg4j3 Her mcguire fibromyalg 8r2800 ia ,osteoporo sis ) 2013-12-18 2013-12-18 2 Weeks nullFlavo Bria, b2c4f6 8d-d [facility] 13:45:00 13:45:00 (Reason: usama Nolasco MD 5db-4b0a-b l Thyroid , 4z6-2nl812 Her mcguire fibromyalg 3f7d33 ia ,osteoporo sis ) 2013-12-18 2013-12-18 2 Weeks nullFlavo Bria, 53q862 b9-f [facility] 13:45:00 13:45:00 (Reason: usama Nolasco MD 1bf-4fa1-9 l Thyroid , 06d-4jw816 Her mcguire fibromyalg 9e6d70 ia ,osteoporo sis ) 2013-12-18 2013-12-18 2 Weeks nullFlavo Bria, 0a2e26 5b-8 [facility] 13:45:00 13:45:00 (Reason: usama Nolasco MD sebas-44da-a l Thyroid , e79-b937en Her mcguire fibromyalg 87m451 ia ,osteoporo sis ) 2013-12-18 2013-12-18 2 Weeks nullFlavo Bria, 60bb36 5e-3 [facility] 13:45:00 13:45:00 (Reason: usama Nolasco MD r1r-817y-q l Thyroid , m9f-e1te6h Her mcguire fibromyalg 3082d9 ia ,osteoporo sis ) 2013-12-18 2013-12-18 2 Weeks nullFlavo Bria, 2813e8 b2-3 [facility] 13:45:00 13:45:00 (Reason: usama Nolasco MD fb5-47ba-8 l Thyroid , 3m2-73f5n8 Her mcguire fibromyalg d15a34 ia ,osteoporo sis ) 2013-12-18 2013-12-18 2 Weeks nullFlavo Bria, b4753y ac-9 [facility] 13:45:00 13:45:00 (Reason: usama Nolasco MD 87a-452a-9 l Thyroid , ca7-adeeb5 Her mcguire fibromyalg f8f5ca ia ,osteoporo sis ) 2013-12-18 2013-12-18 2 Weeks nullFlavo Bria, ra062y 53-5 [facility] 13:45:00 13:45:00 (Reason: usama Nolasco MD 039-4e09-8 l Thyroid , 42c-c1e8c4 Her mcguire fibromyalg b27abd ia ,osteoporo sis ) 2013-12-18 2013-12-18 2 Weeks nullFlavo Bria, b2c4f6 8d-d [facility] 13:45:00 13:45:00 (Reason: usama Nolasco MD 5db-4b0a-b l Thyroid , 8e6-7xu507 Her mcguire fibromyalg 3f7d33 ia ,osteoporo sis ) 2013-12-18 2013-12-18 2 Weeks nullFlavo Bria, 29n006 b9-f [facility] 13:45:00 13:45:00 (Reason: usama Nolasco MD 1bf-4fa1-9 l Thyroid , 06d-1nq461 Her mcguire fibromyalg 9e6d70 ia ,osteoporo sis ) 2013-12-18 2013-12-18 2 Weeks nullFlavo Bria, 0a2e26 5b-8 [facility] 13:45:00 13:45:00 (Reason: usama Nolasco MD sebas-44da-a l Thyroid , p83-z145pp Her mcguire fibromyalg 75d076 ia ,osteoporo sis ) 2013-12-18 2013-12-18 2 Weeks nullFlavo Bria, 60bb36 5e-3 [facility] 13:45:00 13:45:00 (Reason: usama Nolasco MD a6a-521w-p l Thyroid , c0a-d6cs3o Her mcguire fibromyalg 3082d9 ia ,osteoporo sis ) 2013-12-18 2013-12-18 2 Weeks nullFlavo Bria, 2813e8 b2-3 [facility] 13:45:00 13:45:00 (Reason: usama Nolasco MD fb5-47ba-8 l Thyroid , 1i0-62b0e7 Her mcguire fibromyalg d15a34 ia ,osteoporo sis ) 2013-12-18 2013-12-18 2 Weeks nullFlavo Bria, n1757b ac-9 [facility] 13:45:00 13:45:00 (Reason: usama Nolasco MD 87a-452a-9 l Thyroid , ca7-adeeb5 Her mcguire fibromyalg f8f5ca ia ,osteoporo sis ) 2013-12-18 2013-12-18 2 Weeks nullFlavo Bria, hz764z 53-5 [facility] 13:45:00 13:45:00 (Reason: usama Nolasco MD 039-4e09-8 l Thyroid , 42c-c1e8c4 Her mcguire fibromyalg b27abd ia ,osteoporo sis ) 2013-12-06 2013-12-06 Unknown nullFlavo Bria, e83dff d0-e [facility] 01:43:00 01:43:00 usama Nolasco MD 300-429c-b l 45f-352988 Linda nn af9b3b 2013-12-06 2013-12-06 Unknown nullFlavo Bria, 0e07dd 34-5 [facility] 01:43:00 01:43:00 usama Nolasco MD 8r8-4326-3 l 388-33954h Linda nn afcab7 2013-12-06 2013-12-06 Unknown nullFlavo Bria, 113d1c 61-b [facility] 01:43:00 01:43:00 usama Nolasco MD fa7-46d0-b l 5bc-238168 Linda nn a6eb61 2013-12-06 2013-12-06 Unknown nullFlavo Bria, 747192 ad-4 [facility] 01:43:00 01:43:00 r Gaurav GRANT 3y2-077f-5 l 348-b8f414 Linda nn 284223 2160-08-30 2013-12-06 Unknown nullFlavo Bria, 62v722 5c-a [facility] 01:43:00 01:43:00 r Gaurav GRANT 76c-48f1-9 l bce-8270ee Linda nn 1d8321 2013-12-06 2013-12-06 Unknown nullFlavo Bria, c3b05a da-e [facility] 01:43:00 01:43:00 r Gaurav GRANT m0x-4604-6 l 941-070deb Linda nn c869b7 2013-12-06 2013-12-06 Unknown nullFlavo Bria, 63cb93 42-9 [facility] 01:43:00 01:43:00 r Gaurav GRANT m61-14u3-w l ccc-85f5b7 Linda nn 11793r 2013-12-06 2013-12-06 Unknown nullFlavo Bria, 5k954z 28-5 [facility] 01:43:00 01:43:00 r Gaurav GRANT p6z-3h35-u l 72e-217f96 Linda nn 95184s 2013-12-06 2013-12-06 Unknown nullFlavo Bria, 58793a 17-0 [facility] 01:43:00 01:43:00 r Gaurav GRANT 4fd-43eb-b l o4f-6ghwy5 Linda nn f926c7 2013-12-06 2013-12-06 Unknown nullFlavo Bria, d575e4 8b-6 [facility] 01:43:00 01:43:00 r Gaurav GRANT 2f4-8z02-4 l 871-b924cb Linda nn 344f73 2013-12-06 2013-12-06 Unknown nullFlavo Bria, w2250s b4-6 [facility] 01:43:00 01:43:00 r Gaurav GRANT 888-4ae5-b l u2o-v3456u Linda nn c37ef3 2013-12-06 2013-12-06 Unknown nullFlavo Bria, f88d90 f9-e [facility] 01:43:00 01:43:00 r Gaurav GRANT 691-42f5-9 l 4dd-5ecd20 Linda nn f98f84 2013-12-06 2013-12-06 Unknown nullFlavo Bria, 4k400b 09-1 [facility] 01:43:00 01:43:00 r Gaurav GRANT 9be-44a0-8 l u01-8453re Linda nn f5a5f7 2013-12-06 2013-12-06 Unknown nullFlavo Bria, 9521d2 42-2 [facility] 01:43:00 01:43:00 r Gaurav GRANT 6g2-420u-1 l z9p-5o23d2 Linda nn f79d2f 2013-12-06 2013-12-06 Unknown nullFlavo Bria, czl049 61-c [facility] 01:43:00 01:43:00 r Gaurav GRANT d9z-4052-9 l s3v-wh7n85 Linda nn a99a9f 2013-12-06 2013-12-06 Unknown nullFlavo Bria, r6938r 72-d [facility] 01:43:00 01:43:00 r Gaurav GRANT 339-4ba1-9 l ddc-afee6c [facility] nn 48a7aa 2013-12-06 2013-12-06 Unknown nullFlavo Bria, e83dff d0-e [facility] 01:43:00 01:43:00 r Gaurav GRANT 300-429c-b l [id number] [facility] nn af9b3b 2013-12-06 2013-12-06 Unknown nullFlavo Bria, 0e07dd 34-5 [facility] 01:43:00 01:43:00 r Gaurav GRANT 1l7-0586-3 l [id number] [facility] nn afcab7 2013-12-06 2013-12-06 Unknown nullFlavo Bria, 113d1c 61-b [facility] 01:43:00 01:43:00 r Gaurav GRANT fa7-46d0-b l [id number]-[id number] [facility] nn a6eb61 2013-12-06 2013-12-06 Unknown nullFlavo Bria, [id number] ad-4 [facility] 01:43:00 01:43:00 r Gaurav GRANT 1h5-760a-8 l [id number]-v5j975 Linda nn 845329 3806-08-30 2013-12-06 Unknown nullFlavo Bria, [id number] 5c-a [facility] 01:43:00 01:43:00 r Gaurav GRANT 76c-48f1-9 l bce-8270ee [facility] nn [id number] 2013-12-06 2013-12-06 Unknown nullFlavo Bria, c3b05a da-e [facility] 01:43:00 01:43:00 r Gaurav GRANT r6k-0723-8 l 941-070deb [facility] nn c869b7 2013-12-06 2013-12-06 Unknown nullFlavo Bria, [id number] 42-9 [facility] 01:43:00 01:43:00 r Gaurav GRANT s52-97j7-o l ccc-85f5b7 [facility] nn [id number] 2013-12-06 2013-12-06 Unknown nullFlavo Bria, 1f067z 28-5 [facility] 01:43:00 01:43:00 r Gaurav GRANT v1e-3f24-z l 72e-217f96 [facility] nn [id number] 2013-12-06 2013-12-06 Unknown nullFlavo Bria, 40745j 17-0 [facility] 01:43:00 01:43:00 r Gaurav GRANT 4fd-43eb-b l b9e-2utmj2 [facility] nn f926c7 2013-12-06 2013-12-06 Unknown nullFlavo Bria, d575e4 8b-6 [facility] 01:43:00 01:43:00 r Gaurav GRANT 2g8-5t01-4 l 871-b924cb [facility] nn [id number] 2013-12-06 2013-12-06 Unknown nullFlavo Bria, n6974c b4-6 [facility] 01:43:00 01:43:00 r Gaurav GRANT 888-4ae5-b l f9r-a7274c [facility] nn c37ef3 2013-12-06 2013-12-06 Unknown nullFlavo Bria, f88d90 f9-e [facility] 01:43:00 01:43:00 r Gaurav GRANT 691-42f5-9 l 4dd-5ecd20 [facility] nn f98f84 2013-12-06 2013-12-06 Unknown nullFlavo Bria, 4r738x 09-1 [facility] 01:43:00 01:43:00 r Gaurav GRANT 9be-44a0-8 l x89-6312ya [facility] nn f5a5f7 2013-12-06 2013-12-06 Unknown nullFlavo Bria, 9521d2 42-2 [facility] 01:43:00 01:43:00 r Gaurav GRANT 0s6-348x-9 l d5y-7v47a7 [facility] nn f79d2f 2013-12-06 2013-12-06 Unknown nullFlavo Bria, oig162 61-c [facility] 01:43:00 01:43:00 r Gaurav GRANT z0z-2931-9 l b3a-ow0k97 [facility] nn a99a9f 2013-12-06 2013-12-06 Unknown nullFlavo Bria, h2699r 72-d [facility] 01:43:00 01:43:00 r Gaurav GRANT 339-4ba1-9 l ddc-afee6c [facility] nn 48a7aa 2013-12-06 2013-12-06 Unknown nullFlavo Bria, 91b9fe 0e-8 [facility] 00:43:00 00:43:00 r Gaurav GRANT c0u-6p00-0 l h2p-079j19 [facility] nn 25d4ff 2013-12-06 2013-12-06 Unknown nullFlavo Bria, f8d58a 6e-9 [facility] 00:43:00 00:43:00 r Gaurav GRANT 6k5-8ii6-8 l 903-46v641 [facility] nn [id number] 2013-12-06 2013-12-06 Unknown nullFlavo Bria, 37c7d5 cf-4 [facility] 00:43:00 00:43:00 r Gaurav GRANT n6m-0775-w l bc8-e44b4d [facility] nn f616b2 2013-12-06 2013-12-06 Unknown nullFlavo Bria, 91x382 16-0 [facility] 00:43:00 00:43:00 r Gaurav GRANT i38-1p5y-q l 103-9079f9 [facility] nn 844357 8874-08-30 2013-12-06 Unknown nullFlavo Bria, e7fb72 21-7 [facility] 00:43:00 00:43:00 r Gaurav GRANT ddb-4d49-a l susan-bd8e4b [facility] nn 4a27e7 2013-12-06 2013-12-06 Unknown nullFlavo Bria, 6b8fe0 5b-0 [facility] 00:43:00 00:43:00 r Gaurav GRANT 123-4f83-9 l [id number] [facility] nn 2z885v 2013-12-06 2013-12-06 Unknown nullFlavo Bria, [id number] 0a-a [facility] 00:43:00 00:43:00 r Gaurav GRANT 922-456b-9 l 1fd-bce3c8 [facility] nn d31d53 2013-12-06 2013-12-06 Unknown nullFlavo Bria, 08a22d c6-0 [facility] 00:43:00 00:43:00 r Gaurav GRANT 6cb-4b13-8 l [id number] [facility] nn ddf2c0 2013-12-06 2013-12-06 Unknown nullFlavo Bria, 91b9fe 0e-8 [facility] 00:43:00 00:43:00 r Gaurav GRANT m5a-9p85-2 l x8r-810n81 [facility] nn 25d4ff 2013-12-06 2013-12-06 Unknown nullFlavo Bria, f8d58a 6e-9 [facility] 00:43:00 00:43:00 r Gaurav GRANT 7k3-6mo2-8 l 903-20x120 [facility] nn 78v009 2013-12-06 2013-12-06 Unknown nullFlavo Bria, 37c7d5 cf-4 [facility] 00:43:00 00:43:00 r Gaurav GRANT x9s-3586-u l bc8-e44b4d [facility] nn f616b2 2013-12-06 2013-12-06 Unknown nullFlavo Bria, 73x299 16-0 [facility] 00:43:00 00:43:00 r Gaurav GRANT a90-4a3w-n l 103-9079f9 Linda nn 074640 9224-08-30 2013-12-06 Unknown nullFlavo Bria, e7fb72 21-7 [facility] 00:43:00 00:43:00 r Gaurav GRANT ddb-4d49-a l susan-bd8e4b [facility] nn 4a27e7 2013-12-06 2013-12-06 Unknown nullFlavo Bria, 6b8fe0 5b-0 [facility] 00:43:00 00:43:00 r Gaurav GRANT 123-4f83-9 l [id number] [facility] nn 0a481d 2013-12-06 2013-12-06 Unknown nullFlavo Bria, [id number] 0a-a [facility] 00:43:00 00:43:00 r Gaurav GRANT 922-456b-9 l 1fd-bce3c8 [facility] nn d31d53 2013-12-06 2013-12-06 Unknown nullFlavo Bria, 08a22d c6-0 [facility] 00:43:00 00:43:00 r Gaurav GRANT 6cb-4b13-8 l [id number] [facility] nn ddf2c0 2013-12-05 2013-12-05 Outpatient [facility], [id number] [facility] 19:43:00 19:43:00 Guarav Nolasco MD alWork s 2013-12-05 2013-12-05 [facility]24 [id number] [facility] 00:00:00 00:00:00 r [place] [id number] l [facility] 2013-12-05 2013-12-05 Lab Report [facility] 1724 [id number] [facility] 00:00:00 00:00:00 r [place] [id number] l [facility] 2013-12-04 2013-12-04 Annual nullFlavo Bria, eba8ad 76-d [facility] 15:15:00 15:15:00 Pysical r Gaurav GRANT l71-8849-v l 155-6k420u [facility] nn 5cae58 2013-12-04 2013-12-04 Annual nullFlavo Bria c8e7f0 ef-4 [facility] 15:15:00 15:15:00 Pysical r Gaurav GRANT 71e-4423-b l [id number]-563a26 Linda nn [id number] 2013-12-04 2013-12-04 Annual nullFlavo Bria, 72dc70 9c-f Memoria 15:15:00 15:15:00 Pysical r Gaurav GRANT eb8-4a9b-a l p74-a6251k Linda nn 70cbac 2013-12-04 2013-12-04 Annual nullFlavo Bria ad39a6 31-f Memoria 15:15:00 15:15:00 Pysical r Gaurav GRANT 556-4204-a l 505-26516d Linda nn 143a24 2013-12-04 2013-12-04 Annual nullFlavo Bria, 03dd05 08-a Memoria 15:15:00 15:15:00 Pysical r Gaurav GRANT 2f9-80n8-3 l 84e-dad18f Linda nn 6id552 2013-12-04 2013-12-04 Annual nullFlavo Bria, 437d19 42-a Memoria 15:15:00 15:15:00 Pysical r Gaurav GRANT o00-1215-o l ebb-fc3b55 Linda nn [id number] 2013-12-04 2013-12-04 Annual nullFlavo Bria, 03ecce bc-d Memoria 15:15:00 15:15:00 Pysical r Gaurav GRANT 19f-48ab-8 l 3c7-6u2wc7 Linda nn 6c03d0 2013-12-04 2013-12-04 Annual nullFlavo Bria, 9e382g c5-1 Memoria 15:15:00 15:15:00 Pysical usama Nolasco MD y31-9t11-5 l w31-2f6gb6 Linda nn 8468b6 2013-12-04 2013-12-04 Annual nullFlavo Bria, 6e4b8e dc-9 Memoria 15:15:00 15:15:00 Pysical usama Nolasco MD 877-43d3-8 l 746-bj3463 Linda nn [id number] 5589-08-28 2013-12-04 Annual nullFlavo Bria, 6dd2c0 7e-1 Memoria 15:15:00 15:15:00 Pysical r Gaurav GRANT z00-81yu-a l 154-7h7176 Linda nn f4e40c 2013-12-04 2013-12-04 Annual nullFlavo Bria, g2u151 51-2 Memoria 15:15:00 15:15:00 Pysical r Gaurav GRANT t82-33a2-r l 316-196cfa Linda nn hhy811 2013-12-04 2013-12-04 Annual nullFlavo Bria, 0b7de6 7f-8 Memoria 15:15:00 15:15:00 Pysical r Gaurav GRANT 84c-4d37-8 l 2r9-4d2925 Linda nn 0049e3 2013-12-04 2013-12-04 Annual nullFlavo Bria, 953542 be-6 Memoria 15:15:00 15:15:00 Pysical r Gaurav GRANT 8u2-1x02-8 l shaan-d94cf1 Linda nn b12c91 2013-12-04 2013-12-04 Annual nullFlavo Bria, 687155 3f-9 Memoria 15:15:00 15:15:00 Pysical r Gaurav GRANT 500-4491-8 l 689-65d92e Linda nn 06216g 2013-12-04 2013-12-04 Annual nullFlavo Bria, x6b476 58-8 Memoria 15:15:00 15:15:00 Pysical r Gaurav GRANT 291-44ff-a l 829-4fdf4d Linda nn 50756w 2013-12-04 2013-12-04 Annual nullFlavo Bria, c19e9e 15-1 Memoria 15:15:00 15:15:00 Pysical r Gaurav GRANT 366-4cf2-b l ecf-d4f5a7 Linda nn [id number] 2013-12-04 2013-12-04 Annual nullFlavo Bria, eba8ad 76-d Memoria 15:15:00 15:15:00 Pysical r Gaurav GRANT p54-3993-p l 155-4d288u Linda nn 5cae58 2013-12-04 2013-12-04 Annual nullFlavo Bria, c8e7f0 ef-4 Memoria 15:15:00 15:15:00 Pysical r Gaurav GRANT 71e-4423-b l m0b-924w13 Linda nn 2vy640 2013-12-04 2013-12-04 Annual nullFlavo Bria, 72dc70 9c-f Memoria 15:15:00 15:15:00 Pysical r Gaurav GRANT eb8-4a9b-a l y09-v3740k Linda nn 70cbac 2013-12-04 2013-12-04 Annual nullFlavo Bria, ad39a6 31-f Memoria 15:15:00 15:15:00 Pysical r Gaurav GRANT 556-4204-a l 505-95794t Linda nn 143a24 2013-12-04 2013-12-04 Annual nullFlavo Bria, 03dd05 08-a Memoria 15:15:00 15:15:00 Pysical r Gaurav GRANT 2p9-96k0-4 l 84e-dad18f Linda nn 0qz768 2013-12-04 2013-12-04 Annual nullFlavo Bria, 437d19 42-a Memoria 15:15:00 15:15:00 Pysical r Gaurav GRANT o68-7497-r l ebb-fc3b55 Linda nn 7a4801 2013-12-04 2013-12-04 Annual nullFlavo Bria, 03ecce bc-d Memoria 15:15:00 15:15:00 Pysical r Gaurav GRANT 19f-48ab-8 l 5r2-2q4ul9 Linda nn 6c03d0 2013-12-04 2013-12-04 Annual nullFlavo Bria, 2x087g c5-1 Memoria 15:15:00 15:15:00 Pysical r Gaurav GRANT w03-1j53-6 l t39-6c4lo6 Linda nn 8468b6 2013-12-04 2013-12-04 Annual nullFlavo Bria, 6e4b8e dc-9 Memoria 15:15:00 15:15:00 Pysical r Gaurav GRANT 877-43d3-8 l 746-zh0811 Linda nn 736355 4355-08-28 2013-12-04 Annual nullFlavo Bria, 6dd2c0 7e-1 Memoria 15:15:00 15:15:00 Pysical r Gaurav GRANT e36-64kk-p l 154-0z6788 Linda nn f4e40c 2013-12-04 2013-12-04 Annual nullFlavo Bria, y6i449 51-2 Memoria 15:15:00 15:15:00 Pysical r Gaurav GRANT d40-22n9-m l 316-196cfa Linda nn rvw702 2013-12-04 2013-12-04 Annual nullFlavo Bria, 0b7de6 7f-8 Memoria 15:15:00 15:15:00 Pysical r Gaurav GRANT 84c-4d37-8 l 7j8-9r3574 Linda nn 0049e3 2013-12-04 2013-12-04 Annual nullFlavo Bria, 364325 be-6 Memoria 15:15:00 15:15:00 Pysical r Gaurav GRANT 1w1-5l35-7 l shaan-d94cf1 Linda nn b12c91 2013-12-04 2013-12-04 Annual nullFlavo Bria, 632157 3f-9 Memoria 15:15:00 15:15:00 Pysical r Gaurav GRANT 500-4491-8 l 689-65d92e Linda nn 80164t 2013-12-04 2013-12-04 Annual nullFlavo Bria, z9r915 58-8 Memoria 15:15:00 15:15:00 Pysical r Gaurav GRANT 291-44ff-a l 829-4fdf4d [facility] nn 88781u 2013-12-04 2013-12-04 Annual nullFlavo Bria, c19e9e 15-1 Memoria 15:15:00 15:15:00 Pysical r Gaurav GRANT 366-4cf2-b l ecf-d4f5a7 [facility] nn p01553 2013-12-04 2013-12-04 Annual nullFlavo Bria, wc599l 67-1 Memoria 14:15:00 14:15:00 Pysical r Gaurav GRANT 78d-47af-a l 735-3f9216 Linda nn 301c41 2013-12-04 2013-12-04 Annual nullFlavo Bria, j2q112 0f-6 Memoria 14:15:00 14:15:00 Pysical r Gaurav GRANT n3t-6526-9 l db1-5a37e3 Linda nn v10570 2013-12-04 2013-12-04 Annual nullFlavo Bria, ca6b95 c5-e Memoria 14:15:00 14:15:00 Pysical r Gaurav GRANT 748-4c60-9 l 8o8-2j3617 Linad nn a894d1 2013-12-04 2013-12-04 Annual nullFlavo Bria, 8b3daa c3-9 Memoria 14:15:00 14:15:00 Pysical usama Nolasco MD ecb-48db-9 l 2v2-27264l Linda nn f225d4 2013-12-04 2013-12-04 Annual nullFlavo Bria, 457475 97-b Memoria 14:15:00 14:15:00 Pysical usama Nolasco MD 3m0-8g84-v l 175-923b55 Linda nn 2y958v 2013-12-04 2013-12-04 Annual nullFlavo Bria, gy0786 9c-a Memoria 14:15:00 14:15:00 Pysical usama Nolasco MD q36-548k-4 l b49-455170 Linda nn 6eeef4 2013-12-04 2013-12-04 Annual nullFlavo Bria, 7ecb9d 6a-d Memoria 14:15:00 14:15:00 Pysical usama Nolasco MD 960-420a-b l diego-678efe Linda nn 573bf1 2013-12-04 2013-12-04 Annual nullFlavo Bria, 7ecb9d 6a-d Memoria 14:15:00 14:15:00 Pysical usama Nolasco MD 960-420a-b l diego-678efe Linda nn 573bf1 2013-12-04 2013-12-04 Annual nullFlavo Bria, ll549g 67-1 Memoria 14:15:00 14:15:00 Pysical usama Nolasco MD 78d-47af-a l 735-7h0791 Linda nn 301c41 2013-12-04 2013-12-04 Annual nullFlavo Bria, l2f330 0f-6 Memoria 14:15:00 14:15:00 Pysical usama Nolasco MD e3m-1420-9 l db1-5a37e3 Linda nn p65077 2013-12-04 2013-12-04 Annual nullFlavo Bria, ca6b95 c5-e Memoria 14:15:00 14:15:00 Pysical usama Nolasco MD 748-4c60-9 l 6u4-3g9584 Linda nn a894d1 2013-12-04 2013-12-04 Annual vicFlavo Bria, 8b3daa c3-9 Memoria 14:15:00 14:15:00 Pysical usama Nolasco MD ecb-48db-9 l 3u0-25554o Linda nn f225d4 2013-12-04 2013-12-04 Annual nullFlavo Bria, 259182 97-b Memoria 14:15:00 14:15:00 Pysical usama Nolasco MD 4c9-7k30-c l 175-923b55 Linda nn 2u241u 2013-12-04 2013-12-04 Annual Shadeo Bria, ty0690 9c-a Memoria 14:15:00 14:15:00 Pysical usama Nolasco MD v55-283l-9 l o38-100299 Linda nn 6eeef4 2013-12-04 2013-12-04 Outpatient Bria Fraser, 146 782 eClinic 09:15:00 09:15:00 Gaurav Nolasco MD alWork s 2013-10-08 2013-10-08 Office [facility] [id number] [facility]oria 00:00:00 00:00:00 Visit usama Nieto [id number] anali [facility] 2013-10-08 2013-10-08 Office [facility] [id number] 371 [facility] 00:00:00 00:00:00 Visit usama Nieto [id number] anali [facility] 2013-07-02 2013-07-02 Lab Report [facility] 1711 [id number] [facility] 00:00:00 00:00:00 usama Nieto [id number] anali [facility] 2013-07-02 2013-07-02 Office [facility] [id number] 284 [facility] 00:00:00 00:00:00 Visit usama Nieto [id number] [facility] 2013-07-02 2013-07-02 Lab Report [facility] 1711 [id number] Mem[facility] 00:00:00 00:00:00 usama Nieto [id number] [facility] 2013-07-02 2013-07-02 [id number] Visit usama Nieto [id number] l [facility] Results Test Description Test Time Test Comments Results Result Sourc e Comments [place], 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 /FREE T4 IF INDICATED 2017-12-13 06:42:00 Test Item Value Reference Range Interpretation Comme nts THYROID STIMULATING HORMONE (BEAKER) (test code = 772) 2.89 uIU/mL 0.35-4.94 BASIC METABOLIC [id number] 06:22:00 Test Item Value Reference Range Interpretation [...] PATIEN TS. CBC W/PLT COUNT & AUTO [id number] 06:14:00 Test Item Value Reference Range Interpretation [...] code = 2801) LACTIC ACID, VENOUS, WHOLE [id number] 15:27:00 Test Item Value Reference Range Interpretation Comments LACTATE BLOOD VENOUS (2) (BEAKER) 1.1 mmol/L 0.5-2.2 (test code = 2872) Effective 08/11/2015: Units/Reference Range ChangeNew: 0.5-2.2 mmol/L Previous: 5-20 mg/dLBASIC METABOLIC [id number] 13:31:00 Test Item Value Reference Range Interpretation [...] PATIEN TS. CBC W/PLT COUNT & AUTO [id number] 13:05:00 Test Item Value Reference Range Interpretation [...] PERCENT (BEAKER) (test code = 2801) [place], SECOND WORKER IN OR/30 MINUTE [id number] 11:03:00Reason for exam:- >IMPLANTATION OF INTRATHECAL PUMPFINAL REPORT Single fluoroscopic spine image. Fluoroscopy time 15.2 seconds. Fluoroscopy was not performed by the undersigned. Refer to procedure notes for diagnostic and therapeutic detail. Signed: Tiara Pedersen MDReport Verified Date/Time: 12/11/2017 11:03:55 Reading Location:[facility] Radiology Reading Room TISSUE EXAM 2017-12-04 17:14:00Surgical Pathology Report Case: [id number] Authorizing Provider: Jerome Arias MD Collected: 11/30/2017 1327 Ordering Location: [facility] PERIOPERATIVE Received: 11/30/2017 1424 SERVICES Pathologist: Susan Ramos MD Specimen: Explant, hardware NEURAL STIMULATOR, REMOVAL: - HARDWARE IDENTIFIED (GROSS DIAGNOSIS) Signing Pathologist Direct Phone Line: [phone] 86957Nmhpytf pain disorderHardware, neural stimulator The specimen is received in a fluidless container labeled with patient information and labeled "hardware neural stimulator" and consists of a neural stimulator battery measuring5.2 x 5 x 0.6 cm with two attached leads measuring 60 cm in length x 0.1 cm in diameter. Specimen serial number [id number]. The specimen is submitted for gross identification only. /plMR, SPINE, THORACIC, [id number] 11:58:00FINAL REPORT MR thoracic and lumbar spine [...] lesion. Advise dedicated imaging. Signed: Autumn Watson [facility] Verified Date/Time: 12/04/2017 11:58:05 Reading Location: [address] Neuro Reading Room MR, SPINE, LUMBAR, [id number] 11:58:00FINAL REPORT MR thoracic and lumbar spine [...] renal lesion. Advise dedicated imaging. Signed: Autumn Watsonort Verified Date/Time: 12/04/2017 11:58:05 Reading Location: [facility] C013V Neuro Reading Room RAD, CHEST, 2 [...] Barnett Verified Date/Time: 12/01/2017 16:14:55 Reading Location: [facility] C013X Ortho Consult Reading Room ALYSIS W/ REFLEX URINE [id number] 10:01:00 Test Item Value Reference Range Interpretation [...] SOURCE(BEAKER) (test code = 2795) BASIC METABOLIC [id number] 09:45:00 Test Item Value Reference Range Interpretation [...] S NOT APPLICABLE FOR DIALYSIS PATIEN TS. [id number] 09:26:00 Test Item Value Reference Range Interpretation Comments PARTIAL THROMBOPLASTIN TIME 36.9 seconds 22.5-36.0 H (BEAKER) (test code = 760) PROTHROMBIN TIME/[id number] 09:25:00 Test Item Value Reference Range Interpretation [...] (test code = 2801) AFB CULTURE + [id number] 14:00:00 Test Item Value Reference Range Interpretation Comments CULTURE (BEAKER) (test No acid-fast bacilli code = 1095) isolated in 42 days AFB SMEAR (BEAKER) No acid fast bacilli (test code = 994) seen FUNGUS CULTURE + [id number] 15:41:00 Test Item Value Reference Range Interpretation Comments CULTURE (BEAKER) (test No fungus isolated in code = 1095) 28 days FUNGUS SMEAR (BEAKER) No fungi seen (test code = 1406) ANAEROBIC [id number] 04:04:00 Test Item Value Reference Range Interpretation Comments CULTURE (BEAKER) (test No anaerobes isolated code = 1095) SURGICALLY OBTAINED CULTURE + GRAM [id number] 14:12:00 Test Item Value Reference Interpretation Comments [...] (BEAKER) (test code = cocci in clusters 962663) TISSUE [id number] 15:59:00Surgical Pathology Report Case: [id number] Authorizing Provider: Jerome Arias MD Collected: 08/21/2017 1456 Ordering Location: [facility] PERIOPERATIVE Received: 08/22/2017 0819 SERVICES Pathologist: Rebeca Patricia MD Specimen: Explant, HARDWARE HARDWARE, INTRATHECAL PUMP, REMOVAL: - SPRINKLING SYSTEM IRRIGATOR, GROSS IDENTIFICATION ONLY Signing Pathologist Direct Phone Line: [phone] signed by Rebeca Patricia MD on 08/22/2017 at 3:59 PMCG/[id number] pain disorder Hardware The specimen is received in a fluidless container labeled with the patient's information and labeled "hardware" and consists of a programmable pump measuring 8 x 7 x 1.7 cm with a 70 cm lead. The serial number for the programmable pump is "[id number]". The specimen is submitted for gross identification. CG/ew Not performedSPIN/CONCENTRATION [id number] 11:42:00 Test Item Value Reference Range Interpretation Comments CONCENTRATION CHARGED (BEAKER) (test Done code = 2657) [id number] 06:19:00 Test Item Value Reference Range Interpretation [...] = 413) CREATINE KINASE (CK), TOTAL AND [id number] 00:38:00 Test Item Value Reference Range Interpretation Comments CREATINE KINASE TOTAL (BEAKER) 46 U/L 29-200 (test code = 380) CREATINE KINASE-MB (BEAKER) (test 1.0 ng/mL 0.0-6.6 code = 750) CREATINE KINASE-MB INDEX (BEAKER) 2.2 % (test code = 395) CK-MB Reference Range:<6.7 Normal6.7-10.0 Borderline>10.0 AbnormalTROPONIN [id number] 00:38:00 Test Item Value Reference Range Interpretation [...] acute neurological disease, and persistent tachyarrhythmia.HEPATIC FUNCTION [id number] 00:35:00 Test Item Value Reference Range Interpretation [...] code = 8 U/L 6-55 347) PROTHROMBIN TIME/[id number] 00:25:00 Test Item Value Reference Range Interpretation Comments PROTIME (BEAKER) (test code = 15.9 seconds 11.7-14.7 H 759) INR (BEAKER) (test code = 370) 1.3 <=5.9 RECOMMENDED COUMADIN/WARFARIN INR THERAPY RANGESSTANDARD DOSE: 2.0 - 3.0 Includes: PROPHYLAXIS forvenous thrombosis, systemic embolization; TREATMENT for venous thrombosis and/or pulmonary embolus.HIGH RISK: Target INR is 2.5-3.5 for patients with mechanical heart valves.PLATELET [id number] 12:50:00 Test Item Value Reference Range Interpretation Comments PLATELET COUNT (BEAKER) (test 197 K/CU MM 150-450 code = 756) BASIC METABOLIC [id number] 11:36:00 Test Item Value Reference Range Interpretation [...] DIALYSIS PATIEN TS. URINALYSIS W/ REFLEX URINE [id number] 11:28:00 Test Item Value Reference Range Interpretation [...] code = 516) SOURCE(BEAKER) (test code = 5857) CBC W/PLT COUNT & AUTO [id number] 11:27:00 Test Item Value Reference Range Interpretation [...] PERCENT (BEAKER) (test code = 2801) POCT-GLUCOSE [id number] 08:26:00 Test Item Value Reference Range Interpretation Comments POC-GLUCOSE METER 105 mg/dL 70-110 TESTED AT [facility] 6720 (BEAKER) (test code = [place] 1538) [address] BASIC METABOLIC [id number] 06:24:00 Test Item Value Reference Range Interpretation [...] (BEAKER) (test code = 413) BASIC METABOLIC [id number] 05:47:00 Test Item Value Reference Range Interpretation [...] WBC 0-0 (BEAKER) (test code = 413) [id number] 05:12:00 Test Item Value Reference Range Interpretation Comments PHOSPHORUS (BEAKER) (test code = 3.8 mg/dL 2.3-4.7 604) [id number] 05:12:00 Test Item Value Reference Range Interpretation Comments MAGNESIUM (BEAKER) (test code = 1.6 mg/dL 1.6-2.6 627) BASIC METABOLIC [id number] 05:12:00 Test Item Value Reference Range Interpretation [...] APPLICABLE FOR DIALYSIS PATIEN TS. HEPATIC FUNCTION [id number] 05:12:00 Test Item Value Reference Range Interpretation [...] 6-55 347) CBC W/PLT COUNT & AUTO [id number] 04:32:00 Test Item Value Reference Range Interpretation [...] 0-1 PERCENT (BEAKER) (test code = 2801) [id number] 09:47:00 Test Item Value Reference Range Interpretation Comments PHOSPHORUS (BEAKER) (test code = 3.7 mg/dL 2.3-4.7 604) [id number] 09:47:00 Test Item Value Reference Range Interpretation Comments MAGNESIUM (BEAKER) (test code = 1.8 mg/dL 1.6-2.6 627) BASIC METABOLIC [id number] 09:47:00 Test Item Value Reference Range Interpretation [...] APPLICABLE FOR DIALYSIS PATIEN TS. HEPATIC FUNCTION [id number] 09:47:00 Test Item Value Reference Range Interpretation [...] 6-55 347) CBC W/PLT COUNT & AUTO [id number] 09:16:00 Test Item Value Reference Range Interpretation [...] code = 2801) RAD, HAND, 2 VIEWS, [id number] 08:42:00Reason for exam:->history of left forearm/wrist fractureShould [...] fracture of the distal radius. Signed: Tamiko Kern Verified Date/Time: 06/19/2017 08:42:08 [facility], FOREARM, 2 VIEWS, [id number] 08:38:00Reason for exam:->history of left wrist/forearm fractureShould [...] Tamiko Kerneport Verified Date/Time: 06/19/2017 08:38:49 Reading Location:[facility] Radiology Reading Room POCT-GLUCOSE [id number] 17:06:00 Test Item Value Reference Range Interpretation Comments POC-GLUCOSE METER 102 mg/dL 70-110 TESTED AT [facility] 67[address] ([facility] (test code = [place] [facility] 1538) [address] T4, [id number] 14:34:00 Test Item Value Reference Range Interpretation Comments FREE T4 (BEAKER) (test code = 655) 1.13 ng/dL 0.70-1.48 [id number] 12:54:00 Test Item Value Reference Range Interpretation Comments PHOSPHORUS (BEAKER) (test code = 3.0 mg/dL 2.3-4.7 604) [id number] 12:54:00 Test Item Value Reference Range Interpretation Comments MAGNESIUM (BEAKER) (test code = 2.1 mg/dL 1.6-2.6 627) BASIC METABOLIC [id number] 12:54:00 Test Item Value Reference Range Interpretation [...] APPLICABLE FOR DIALYSIS PATIEN TS. HEPATIC FUNCTION [id number] 12:54:00 Test Item Value Reference Range Interpretation [...] code = 9 U/L 6-55 347) HEMOGLOBIN [id number] 12:08:00 Test Item Value Reference Range Interpretation Comments HEMOGLOBIN A1C (BEAKER) (test code = 5.8 % 4.3-6.1 368) POCT-GLUCOSE [id number] 11:40:00 Test Item Value Reference Range Interpretation Comments POC-GLUCOSE METER 83 mg/dL 70-110 TESTED AT [facility] 6720 (BEAKER) (test code = [facility] Usama [facility] [address] 1538) TSH/FREE T4 IF [id number] 11:38:00 Test Item Value Reference Range Interpretation Comments THYROID STIMULATING HORMONE 8.19 uIU/mL 0.35-4.94 H (BEAKER) (test code = 772) SEDIMENTATION [id number] 11:20:00 Test Item Value Reference Range Interpretation Comments SEDIMENTATION RATE, ERYTHROCYTE 101 mm/HR 0-40 H (BEAKER) (test code = 766) LIPID [id number] 08:58:00 Test Item Value Reference Range Interpretation Comments TRIGLYCERIDES (BEAKER) (test code = 131 mg/dL 540) CHOLESTEROL (BEAKER) (test code = 203 mg/dL 631) HDL CHOLESTEROL (BEAKER) (test code 31 mg/dL = 976) LDL CHOLESTEROL CALCULATED (BEAKER) 146 mg/dL (test code = 633) Triglyceride Reference Range: Low Risk <150 Borderline 150-199 High Risk 200-499 Very High Risk >=500Cholesterol Reference Range: Low Risk <200 Borderline 200-239 High Risk >240HDL Cholesterol Reference Range: Low Risk >=60 High Risk <40LDL Cholesterol Reference Range: Optimal <100 Near Optimal 100-129 Borderline 130-159 High 160-189 Very High >=190C-REACTIVE [id number] 08:58:00 Test Item Value Reference Range Interpretation Comments C-REACTIVE PROTEIN (BEAKER) (test 11.13 mg/dL 0.00-0.50 H code = 676) POCT-GLUCOSE [id number] 07:54:00 Test Item Value Reference Range Interpretation Comments POC-GLUCOSE METER 93 mg/dL 70-110 TESTED AT [facility] 6720 (BEAKER) (test code = [place] [facility] [address] 1538) CBC W/PLT COUNT & AUTO [id number] 06:52:00 Test Item Value Reference Range Interpretation [...] 0-1 PERCENT (BEAKER) (test code = 2801) [id number] 06:35:00 Test Item Value Reference Range Interpretation [...] 2.5-3.5 for patients with mechanical heart valves.POCT-GLUCOSE [id number] 22:11:00 Test Item Value Reference Range Interpretation Comments POC-GLUCOSE METER 101 mg/dL 70-110 TESTED AT [facility] 6720 (BEAKER) (test code = [place] 1538) [address] [place] IN OR/30 MINUTE [id number] 11:15:00Reason for exam:- >Implantation of Intrathecal PumpFINAL [...] MDReport Verified Date/Time: 06/13/2017 11:15:44 Reading Location: [facility] Radiology Reading Room URINALYSIS W/ REFLEX URINE [id number] 16:47:00 Test Item Value Reference Range Interpretation [...] (test code = 2795) RAD, CHEST, 2 [id number] 12:51:00Reason for exam:->PRE OP TESTINGFINAL REPORT Chest, [...] MDReport Verified Date/Time: 05/15/2017 12:51:37 Reading Location: [address] Radiology Reading Room BASIC METABOLIC [id number] 12:14:00 Test Item Value Reference Range Interpretation [...] NOT APPLICABLE FOR DIALYSIS PATIEN TS. PROTHROMBIN [id number] 11:26:00 Test Item Value Reference Range Interpretation Comments PROTIME (BEAKER) (test code = 15.0 seconds 11.7-14.7 H 759) INR (BEAKER) (test code = 370) 1.2 <=5.9 RECOMMENDED COUMADIN/WARFARIN INR THERAPY RANGESSTANDARD DOSE: 2.0 - 3.0 Includes: PROPHYLAXIS forvenous thrombosis, systemic embolization; TREATMENT for venous thrombosis and/or pulmonary embolus.HIGH RISK: Target INR is 2.5-3.5 for patients with mechanical heart valves.[id number] 11:26:00 Test Item Value Reference Range Interpretation Comments PARTIAL THROMBOPLASTIN TIME 38.1 seconds 22.5-36.0 H (BEAKER) (test code = 760) CBC W/PLT COUNT & AUTO [id number] 11:18:00 Test Item Value Reference Range Interpretation [...] 0-1 PERCENT (BEAKER) (test code = 2801) [id number] 15:01:006.7[facility] GdavogoUlnslpiqk0130-64-29 17:57:0010.0 [facility] FttrnapQgnpnijuw1836-75-00 17:57:50576Joirztfq [facility] 2013-05-05 17:57:54260Spjcwqvh CvezkowYgzxrskxw2925-18-32 17:57:0021[facility] UdlzftrJjljftioa8116-37-09 17:57:66136Smyujpwc KvbikhfUmikmbfgb1637-02-55 17:57:002.6[facility] JwwaeeeWuirexglr2013-02-30 17:57:44358 [facility] [place] Rtakfbspc9915-55-17 17:57:004.3 MEQ/L[facility] CnfvbkgRzjrumrrd5193-25-47 17:57:000.9[facility] KnyzomfBsswelrvr8765-82-85 17:57:003[facility] Cdndpfmsi3015-63-81 17:57:00 Test Item Value Reference Range Interpretation Comments BUN/CREAT (test code = BUN/CREAT) 3 10-01 [facility] AqqydinMvzevmpao4781-05-14 17:57:003.2[facility] 2013-05-05 17:57:008.4[facility] FhzheyrEhmxgkcfn4159-74-58 17:57:0018[facility] StifzscBecenfwcl0084-29-65 17:57:0030[facility] XinduidAtgtmqaup3662-47-89 17:57:0086[facility] QxdcuqmRorvtllxx9086-22-58 17:57:001.020[facility] Rqnhwxefg9493-86-94 17:57:008.0[facility] ScixwenHsctspwsd7450-30-10 17:57:0010.0 [facility] VhjdlnmOyvdkdrxk0884-84-81 17:57:19251Yjmrpxxr [facility] 2013-05-05 17:57:70740Fzpbfsrg RqtjsxoXwztvdxgo1714-42-73 17:57:0021[facility] UfwuwjfMercsaqvk2928-33-90 17:57:55999Mofalddd EqhyapuCrsaeoshd7517-83-06 17:57:002.6[facility] HloctqqRtaixwcir1934-39-40 17:57:80052 ME[facility] [place] Zpkuvdbrd1704-19-99 17:57:004.3 MEQ/LMem[facility] KiqilxhKoiyukmpt1744-71-43 17:57:000.9[facility] RtutkdjMjekwpuzy2833-49-75 17:57:003[facility] Myaopnass8346-46-92 17:57:00 Test Item Value Reference Range Interpretation Comments BUN/CREAT (test code = BUN/CREAT) 3 10-01 [facility] QvxkyplMedcildhh4798-93-41 17:57:003.2[facility] 2013-05-05 17:57:008.4[facility] XmxorneTlogypurb3716-61-54 17:57:0018[facility] VnrvzrcAclszywnz4206-28-61 17:57:0030[facility] IhrekgsSoehkpllx1814-35-36 17:57:0086[facility] KrlsrukMelcxtute1661-18-57 17:57:001.020[facility] [place] Apnbmpujt2240-81-05 17:57:008.0[facility] HodnbmrJfjeyfzmbf6640-27-85 17:57:0012.2 [facility] OrylfxbHqcmxzxfsq5057-27-44 17:57:0038.4[facility]ann[facility] 2013-05-05 17:57:06515 K/CMMMemorial XiypyeyHsjvwfmeow6996-06-40 17:57:0048 [facility] SgfgdofDnypuwnzri2723-77-92 17:57:0012.2[facility]annHematology 2013-05-05 17:57:0038.4[facility] FwlcagxRvgdlboawj5568-45-70 17:57:58148 K/CMM [facility] CuwayrbExfhduhbdi7493-87-95 17:57:0048[facility]ann[facility] 2013-05-05 17:57:00PositiveMemorial BsghlfpGsbpumjs2457-13-80 17:57:00Positive [facility] ZexecgcVkexivojcj5587-43-30 17:57:00[facility] HermannUrinalysis 2013-05-05 17:57:00[facility] GqysgjxXfssurvbjq9744-78-10 17:57:00Yellow [facility] CpgbyigUbwtmlnuya1449-27-86 17:57:00[facility]annChemistry 2012-04-24 15:54:03687Rkrposbe BsguzztZahfvpzbk7750-74-30 15:54:65865Ezwirfhn TvrwwzaAquzwtzdf9791-10-55 15:54:0038[facility] UrdgjhtZwogzaoxb0850-09-68 15:54:0072Mem[facility] UnihytxQicgxnbcu5321-60-36 15:54:05850 MEQ/L[facility] [place] Hwsakmgsk4464-48-28 15:54:004.1 MEQ/LMemorial TxkmptoDdrwccbrm5284-20-85 15:54:001.0[facility] NuprxahYoehxfelj0384-26-35 15:54:007[facility] [place] Rfmgwjbpj6425-38-03 15:54:00 Test Item Value Reference Range Interpretation Comments BUN/CREAT (test code = BUN/CREAT) 7 1 6-25 [facility] FpmrzrtFizvpuxck0171-00-02 15:54:003.7[facility]annChem[facility] 2012-04-24 15:54:008.4[facility] PxoypsgVxqqcxtfc4231-89-72 15:54:0029[facility] WqkbyjwSwqnpjzsd1214-83-20 15:54:0039[facility] FeybfyrDrgkgxlzw0478-56-16 15:54:0076[facility] CkjwoiwFhjrrichh6755-62-62 15:54:004.680[facility] Tiokxkvvqt9843-07-94 15:54:0012.4[facility] IuzzywjJdokdemmdf2202-95-81 15:54:00 37.6Memorial CwifqwpSxskjmbrhx0728-68-28 15:54:59923 K/CMMMemorial [place] Luxifoyayr9513-40-65 15:54:00YellowMem[facility] GvguvkiJqbrorixgp7680-60-43 15:54:00 [facility] UiubxikKokayeuot1023-26-90 21:40:15282Vkwachmi [facility] Zkbchsgzk0685-97-79 21:40:43242Epgnrcwk BbcpvhtAmkkbsxqp1037-62-76 21:40:0034 [facility] QytzxxcYckhxbusj6624-79-35 21:40:0049[facility]annChem[facility] 2011-03-14 21:40:72206 MEQ/LMemorial XknsrrfPvnkebexa1315-92-49 21:40:004.1 MEQ/LMemorial EnvxgaiWphqakpah6573-92-02 21:40:000.9[facility]annChem[facility] 2011-03-14 21:40:006[facility] MdsofazDzavsccib4759-69-42 21:40:00 Test Item Value Reference Range Interpretation Comments BUN/CREAT (test code = BUN/CREAT) 7 1 6-25 [facility] EwukwilIxlodvkhw5045-63-18 21:40:003.9[facility]annChem[facility] 2011-03-14 21:40:009.0[facility] OfjneruRvozcavgm6665-74-31 21:40:0027[facility] MrqozygGbvowkndn3790-79-09 21:40:0034[facility] AgbcwdxPkejeujpt7868-59-29 21:40:0076Mem[facility] MujcajdAkdwduyng8402-18-31 21:40:000.524[facility] [place] Wkwrhatxqz7427-08-84 21:40:0012.2[facility] VhbagknUndfrguodi5892-50-40 21:40:00 35.7[facility] SwlevxjKfuqeaaktk1513-37-55 21:40:40153 K/CMMMemorial [place] Ernzqjsdsk3758-76-52 21:40:00[facility]ellowMem[facility] LpbmvbnUoieekhtwp0101-55-95 20:30:00 11.6[facility] OmeegjtAkolzjzurq9047-32-53 20:30:0035.3[facility]annH[facility] 2010-07-21 20:30:07819 K/CMMMemorial DstwfokNneqaeforv7532-96-00 20:30:0042 [facility] WevgcucDwzipfcwmy1816-61-38 19:49:00YellowMem[facility] HermannUrinalysis 2010-06-21 19:49:00[facility]ional[facility] QeneozmTwdcsvcfr1846-32-64 17:45:29284 [facility] HeqirsfTvfzmofmx7248-46-49 17:45:004.5[facility]annChemistry 2010-05-24 17:45:000.9[facility] MztxvigGdxxfkyat5865-05-47 17:45:0013Mem[facility] RmsndfeJencpyzze1102-25-06 17:45:00 Test Item Value Reference Range Interpretation Comments BUN/CREAT (test code = BUN/CREAT) 14 1 6-25 [facility] GxxuwumCrcbrwijo5163-31-46 17:45:004.2[facility]annChem[facility] 2010-05-24 17:45:009.1[facility] DbvkkkqYanrrvcwc7651-57-07 17:45:0015Mem[facility] PnvtlgbFlneukqhy5102-64-86 17:45:0012Mem[facility] ScicvlaAziofnywk8435-00-39 17:45:0067[facility] FxjfljrPuuzwdyii5749-06-59 17:45:000.680[facility] Bpwcfmjvjyg6747-50-10 17:45:00 Test Item Value Reference Range Interpretation Comments PT PATIENT (test code = PT PATIENT) 13.6 s 12.0-14.7 [facility] VifcczvYirururqypg2485-00-90 17:45:00 Test Item Value Reference Range Interpretation Comments INR (test code = INR) 1.02 1 0.85-1.17 [facility] CcooxlgXikpoxsakb7149-21-34 17:45:0012.7[facility]annHematology 2010-05-24 17:45:0038.1[facility] XusxnrcDmcybfbwxx7232-02-19 17:45:93986 K/CMM [facility] YfhbycxCvxdnrnnfl1618-16-73 17:45:00YellowMemorial HermannCT LUMBAR WO CLINICAL INDICATION: M51.36 Other intervertebral disc degeneration, lumbar regionMODALITY: Siemens ImageBrief CT (Iterative dose reduction techniques are utilized.)TECHNIQUE: [...]
[2020-12-11 07:55] LABS: Absolute Lymphocytes (CBC) 0.4 K/uL (0.7-4.9); Basophils % 0.1 % (0-1.3); Hematocrit 32.9 % (36.0-45.0); Lymphocytes % 4.2 % (15.3-44.8); MPV 8.5 fL (7.6-11.3); RBC Red Blood Cell Count 4.05 M/uL (3.86-4.86)
[2020-12-11 07:57] LABS: Protime INR 1.18
[2020-12-11 08:18] LABS: ALT/SGPT 29 U/L (12-78); AST/SGOT 44 U/L (15-37); Albumin 2.7 g/dL (3.4-5.0); Alkaline Phosphatase 82 U/L (45-117); BUN Blood Urea Nitrogen 31 mg/dL (7-18); Bicarbonate 28 mmol/L (21-32); Bilirubin Direct 0.1 mg/dL (0-0.2); Bilirubin Total 0.3 mg/dL (0.2-1.0); Ferritin 499.9 ng/mL (8-388); Glucose Level 176 mg/dL (74-106); Lipase 59 U/L (73-393); Magnesium 2.4 mg/dL (1.8-2.4); NT PRO-BNP 336 pg/mL (<125); Potassium 4.1 mmol/L (3.5-5.1); Protein, Total 6.6 g/dL (6.4-8.2); Sodium Level 137 mmol/L (136-145); Troponin (Emerg Dept Use Only) < 0.02 ng/mL (0.0-0.045)
[2020-12-11] MEDS ORDERED: FAMOTIDINE 20 MG/2 ML VIAL IV ONE (08:19)
[2020-12-11] MEDS ORDERED: NA CHLORIDE 0.9% 1,000 ML ONE (08:19)
[2020-12-11] MEDS ORDERED: AZITHROMYCIN IV 500 MG in NA CHLORIDE 0.9% 250 ML IVPB ONE (08:30)
[2020-12-11 08:49] LABS: Urine Blood 2+ (Negative); Urine Glucose Negative (Negative); Urine Protein Trace (Negative); Urine pH 5.5 (5.0-7.0)
--- NOTE | 2020-12-11 09:17 | RAD REPORT ---
EXAM DESCRIPTION: Simone Single View12/11/2020 8:24 am CLINICAL HISTORY: cough COMPARISON: April 2020 FINDINGS: Mild bilateral pulmonary opacities. The heart is mildly enlarged IMPRESSION: Mild bilateral pulmonary opacities probably mild pneumonia
--- NOTE | 2020-12-11 09:19 | EDPHYS ---
Physician Documentation [facility] Name: Emma Rico Age: 70 yrs Sex: Female : 1950 Arrival Date: 12/11/2020 Time: 07:17 Bed 6 Private MD: ED Physician Lamonte Geller HPI: 12/11 07:34 This 70 yrs old Female presents to ER via EMS with complaints of dyspnea, martin hypoxia, covid 19 positive. 07:34 The patient has shortness of breath at rest. Onset: The symptoms/episode began/occurred martin 2 day(s) ago. Duration: The symptoms are continuous, and are steadily getting worse. The patient's shortness of breath is aggravated by coughing, light activity. obese, hypoxia female. Associated signs and symptoms: Pertinent positives: non-productive cough. Severity of symptoms: At their worst the symptoms were moderate in the emergency department the symptoms. Severity of symptoms:. The patient has not experienced similar symptoms in the past. Historical: - Allergies: 07:23 Codeine; jd3 07:23 Morphine; jd3 07:23 Sulfa (Sulfonamide Antibiotics); jd3 - Home Meds: 07:24 fentanyl in pain pump [Active]; levothyroxine oral [Active]; pregabalin Oral [Active]; jd3 losartan oral [Active]; pramipexole oral [Active]; Furosemide Oral [Active]; Clotrimazole-Betamethasone Topical [Active]; Decara oral [Active]; - PMHx: 07:23 Chronic pain; Depression; Hypertension; Hypothyroidism; jd3 07:24 Dementia; jd3 - PSHx: 07:24 hysterectomy; right hip; left hip; back; pain pump placed; jd3 - Immunization history:: Adult Immunizations up to date, Client reports receiving the 1st dose of the Covid vaccine. - Social history:: Smoking status: unknown. - Family history:: not pertinent. ROS: 07:34 Constitutional: Negative for fever, chills, and weight loss, Eyes: Negative for injury, martin pain, redness, and discharge, ENT: Negative for injury, pain, and discharge, Neck: Negative for injury, pain, and swelling, Cardiovascular: Negative for chest pain, palpitations, and edema, Abdomen/GI: Negative for abdominal pain, nausea, vomiting, diarrhea, and constipation, Back: Negative for injury and pain, : Negative for injury, bleeding, discharge, and swelling, MS/Extremity: Negative for injury and deformity, Skin: Negative for injury, rash, and discoloration, Neuro: Negative for headache, weakness, numbness, tingling, and seizure, Psych: Negative for depression, anxiety, suicide ideation, homicidal ideation, and hallucinations, Allergy/Immunology: Negative for hives, rash, and allergies, Endocrine: Negative for neck swelling, polydipsia, polyuria, polyphagia, and marked weight changes, Hematologic/Lymphatic: Negative for swollen nodes, abnormal bleeding, and unusual bruising. 07:34 Respiratory: Positive for cough, shortness of breath, at rest. Exam: 07:34 Constitutional: This is a well developed, well nourished patient who is awake, alert, martin and in no acute distress. Head/Face: Normocephalic, atraumatic. Eyes: Pupils equal round and reactive to light, extra-ocular motions intact. Lids and lashes normal. Conjunctiva and sclera are non-icteric and not injected. Cornea within normal limits. Periorbital areas with no swelling, redness, or edema. ENT: Nares patent. No nasal discharge, no septal abnormalities noted. Tympanic membranes are normal and external auditory canals are clear. Oropharynx with no redness, swelling, or masses, exudates, or evidence of obstruction, uvula midline. Mucous membranes moist. Neck: Trachea midline, no thyromegaly or masses palpated, and no cervical lymphadenopathy. Supple, full range of motion without nuchal rigidity, or vertebral point tenderness. No Meningismus. Chest/axilla: Normal chest wall appearance and motion. Nontender with no deformity. No lesions are appreciated. Cardiovascular: Regular rate and rhythm with a normal S1 and S2. No gallops, murmurs, or rubs. Normal PMI, no JVD. No pulse deficits. Abdomen/GI: Soft, non-tender, with normal bowel sounds. No distension or tympany. No guarding or rebound. No evidence of tenderness throughout. Back: No spinal tenderness. No costovertebral tenderness. Full range of motion. Female : Normal external genitalia. Skin: Warm, dry with normal turgor. Normal color with no rashes, no lesions, and no evidence of cellulitis. MS/ Extremity: Pulses equal, no cyanosis. Neurovascular intact. Full, normal range of motion. Neuro: Awake and alert, GCS 15, oriented to person, place, time, and situation. Cranial nerves II-XII grossly intact. Motor strength 5/5 in all extremities. Sensory grossly intact. Cerebellar exam normal. Normal gait. Psych: Awake, alert, with orientation to person, place and time. Behavior, mood, and affect are within normal limits. 07:34 Respiratory: the patient does not display signs of respiratory distress, Respirations: labored breathing, that is mild, Breath sounds: decreased breath sounds, that are mild, are located in both bases, rhonchi, that are mild, are scattered, Respiratory rate: 24 09:32 ECG was reviewed by the Attending Physician. [facility] Vital Signs: 07:18 BP 99 / 50; Pulse 59; Resp 24 S; Temp 98.9(O); Pulse Ox 95% on 3 lpm NC; Weight 111.13 jd3 kg (R); Height 5 ft. 3 in. (160.02 cm) (R); Pain 8/10; 08:57 BP 98 / 53; Pulse 50; Resp 22 S; Pulse Ox 98% on 3 lpm NC; jd3 10:02 BP 97 / 51; Pulse 57; Resp 21 S; Pulse Ox 97% on 3 lpm NC; jd3 12:14 BP 107 / 59; Pulse 50; Resp 21 S; Pulse Ox 99% on 3 lpm NC; jd3 07:18 Body Mass Index 43.40 (111.13 kg, 160.02 cm) jd3 MDM: 07:18 Patient medically screened. martin 07:38 Differential diagnosis: Anemia asthma, Bronchitis pneumonia, pulmonary edema, reactive martin airway disease, Sepsis Unstable Angina. Antibiotic administration: Rocephin and Zithromax given. Differential Diagnosis sepsis, flu. The patient's Wells Deep Vein Thrombosis Score was calculated as follows: Total Score: 0-2 Pts- Low Risk. The patient's pulmonary embolism risk score was calculated as follows: Total Score: 0-2 points. This patient was found to be at low risk for a pulmonary embolism by using the Well's assessment criteria. Immunization status: Pneumococcal vaccine: Influenza vaccine: Data reviewed: vital signs, nurses notes, lab test result(s), EKG, radiologic studies, CT scan, plain films. Data interpreted: residential monitor: rate is 59 beats/min, rhythm is regular, Pulse oximetry: on 2L(s) per nasal canula, is 94 %. Test interpretation: by ED physician or midlevel provider: ECG, plain radiologic studies. Counseling: I had a detailed discussion with the patient and/or guardian regarding: the historical points, exam findings, and any diagnostic results supporting the discharge/admit diagnosis, lab results, the need for further work-up and treatment in the hospital. 12/11 07:33 Order name: Basic Metabolic Panel [facility] 12/11 07:33 Order name: CBC with Diff [facility] 12/11 07:33 Order name: LFT's [facility] 12/11 07:33 Order name: Magnesium [facility] 12/11 07:33 Order name: NT PRO-BNP [facility] 12/11 07:33 Order name: PT-INR [facility] 12/11 07:33 Order name: Troponin (emerg Dept Use Only); Complete Time: 09:09 [facility] 12/11 07:33 Order name: Lipase; Complete Time: 09:09 [facility] 12/11 07:33 Order name: CRP; Complete Time: 09:09 [facility] 12/11 07:33 Order name: Ferritin; Complete Time: 09:09 [facility] 12/11 07:33 Order name: Blood Culture Adult (2) [facility] 12/11 07:33 Order name: Urine Culture [facility] 12/11 07:33 Order name: D-Dimer; Complete Time: 09:09 [facility] 12/11 07:33 Order name: Lactate; Complete Time: 09:09 [facility] 12/11 07:33 Order name: XRAY Chest (1 view); Complete Time: 12:07 [facility] 12/11 07:33 Order name: Basic Metabolic Panel; Complete Time: 09:09 EDME 12/11 07:33 Order name: CBC with Automated Diff; Complete Time: 16:07 EDME 12/11 07:33 Order name: Liver (Hepatic) Function; Complete Time: 09:09 EDME 12/11 07:33 Order name: Magnesium; Complete Time: 09:09 EDME 12/11 07:34 Order name: NT PRO-BNP; Complete Time: 09:09 EDME 12/11 07:34 Order name: Protime (+INR); Complete Time: 09:09 EDME 12/11 08:49 Order name: Urine Dipstick-Ancillary; Complete Time: 09:09 EDMS 12/11 13:09 Order name: CBC Smear Scan; Complete Time: 16:07 [facility] 12/11 13:36 Order name: Troponin I; Complete Time: 16:07 [facility] 12/11 20:04 Order name: Troponin I [facility] 12/11 07:33 Order name: EKG; Complete Time: 07:34 [facility] 12/11 07:33 Order name: Cardiac monitoring; Complete Time: 07:42 [facility] 12/11 07:33 Order name: EKG - Nurse/Tech; Complete Time: 07:56 [facility] 12/11 07:33 Order name: IV Saline Lock; Complete Time: 07:42 [facility] 12/11 07:33 Order name: Labs collected and sent; Complete Time: 07:42 [facility] 12/11 07:33 Order name: O2 Per Protocol; Complete Time: 07:42 [facility] 12/11 07:33 Order name: O2 Sat Monitoring; Complete Time: 07:42 [facility] 12/11 07:33 Order name: Urine Dipstick-Ancillary (obtain specimen); Complete Time: 08:54 [facility] 12/11 07:33 Order name: Oxygen; Complete Time: 07:42 [facility] 12/11 09:25 Order name: CONS Physician Consult EDMS EC:32 Rate is 57 beats/min. Rhythm is regular. QRS Blackwell is Normal. AL interval is normal. QRS martin interval is normal. QT interval is normal. No Q waves. T waves are Normal. No ST changes noted. Clinical impression: Sinus bradycardia and No evidence of ischemia. Interpreted by me. Reviewed by me. Administered Medications: 08:00 Drug: NS 0.9% 500 ml Route: IV; Rate: bolus; Site: right upper arm; rb3 09:00 Follow up: Response: No adverse reaction; IV Status: Completed infusion jd3 08:00 Drug: Pepcid (famotidine) 20 mg Route: IVP; Site: right upper arm; rb3 09:00 Follow up: Response: No adverse reaction jd3 08:54 Drug: NS 0.9% 1000 ml Route: IV; Rate: 125 ml/hr; Site: right antecubital; jd3 12:20 Follow up: Response: No adverse reaction; IV Status: Infusion continued upon admission jd3 09:15 CANCELLED (Duplicate Order): Remdesivir 200 mg IV at per protocol once; administer on [facility] day 1 of therapy 09:38 Drug: Zithromax (azithromycin) 500 mg Route: IVPB; Infused Over: 1 hrs; Site: right jd3 antecubital; 12:20 Follow up: Response: No adverse reaction; IV Status: Completed infusion jd3 09:38 Drug: Rocephin (cefTRIAXone) 1 grams Route: IV; Rate: per protocol; Site: right jd3 antecubital; 10:30 Follow up: Response: No adverse reaction; IV Status: Completed infusion jd3 09:38 Drug: Eliquis (apixaban) 5 mg Route: PO; jd3 10:30 Follow up: Response: No adverse reaction jd3 09:38 Drug: SOLU-Medrol (methylPrednisoLONE) 80 mg Route: IVP; Site: right antecubital; jd3 10:30 Follow up: Response: No adverse reaction jd3 Disposition Summary: 12/11/20 09:18 Hospitalization Ordered Hospitalization Status: Inpatient Admission martin Provider: Robbin Cabello cha Location: Telemetry/MedSurg (Inpatient) martin Condition: Fair martin Problem: new martin Symptoms: have improved martin Bed/Room Type: Standard [facility] Room Assignment: 422(12/11/20 23:05) cg Diagnosis - Dyspnea martin - Hypoxemia martin - Coronavirus infection, unspecified martin - Pneumonia due to SARS-associated coronavirus martin - Obesity, unspecified martin - Unspecified kidney failure - acute on chronic martin Forms: - Medication Reconciliation Form martin - SBAR form martin Signatures: Dispatcher [employer] EDLamonte Mauro MD MD cha Page, Corey, PA PA cp Garcia, Cindy, RN RN cg Davies, Jonathon, RN RN jYumiko Johnson, RN RN rb3 Corrections: (The following items were deleted from the chart) 07:29 07:24 Home Meds: pregabalin Oral; jd3 jd3 09:15 09:13 Remdesivir 200 mg IV at per protocol once; administer on day 1 of therapy [facility] ordered. [facility] 23:05 09:18 martin cg
--- NOTE | 2020-12-11 09:19 | ER ---
Nurse's Notes [facility] [place] Name: Emma Rico Age: 70 yrs Sex: Female : 1950 Arrival Date: 12/11/2020 Time: 07:17 Bed 6 Private MD: Diagnosis: Dyspnea;Hypoxemia;Coronavirus infection, unspecified;Pneumonia due to SARS-associated coronavirus;Obesity, unspecified;Unspecified kidney failure-acute on chronic Presentation: 12/11 07:18 Chief complaint: EMS states: "pt that is COVID + and reporting some hypoxia. low oxygen jd3 saturation on room air.". 07:18 Method Of Arrival: EMS: [facility] jd3 07:21 Coronavirus screen: Client presents with at least one sign or symptom that may indicate jd3 coronavirus-19. Standard/surgical mask placed on the client. Provider contacted for isolation considerations. Client reports previous positive COVID test result. Ebola Screen: Patient negative for fever greater than or equal to 101.5 degrees Fahrenheit, and additional compatible Ebola Virus Disease symptoms. Initial Sepsis Screen: Does the patient meet any 2 criteria? RR > 20 per min. No. Patient's initial sepsis screen is negative. Does the patient have a suspected source of infection? No. Patient's initial sepsis screen is negative. Risk Assessment: Do you want to hurt yourself or someone else? Patient reports no desire to harm self or others. Onset of symptoms was December 09, 2020. 07:21 Acuity: LENNY 3 jd3 Historical: - Allergies: 07:23 Codeine; jd3 07:23 Morphine; jd3 07:23 Sulfa (Sulfonamide Antibiotics); jd3 - Home Meds: 07:24 fentanyl in pain pump [Active]; levothyroxine oral [Active]; pregabalin Oral [Active]; jd3 losartan oral [Active]; pramipexole oral [Active]; Furosemide Oral [Active]; Clotrimazole-Betamethasone Topical [Active]; Decara oral [Active]; - PMHx: 07:23 Chronic pain; Depression; Hypertension; Hypothyroidism; jd3 07:24 Dementia; jd3 - PSHx: 07:24 hysterectomy; right hip; left hip; back; pain pump placed; jd3 - Immunization history:: Adult Immunizations up to date, Client reports receiving the 1st dose of the Covid vaccine. - Social history:: Smoking status: unknown. - Family history:: not pertinent. Screenin:44 Abuse screen: Denies threats or abuse. Nutritional screening: No deficits noted. jd3 Tuberculosis screening: No symptoms or risk factors identified. Fall Risk Ambulatory Aid- None/Bed Rest/Nurse Assist (0 pts). Gait- Normal/Bed Rest/Wheelchair (0 pts) Mental Status- Oriented to own ability (0 pts). Total Chavez Fall Scale indicates No Risk (0-24 pts). Assessment: 07:30 General: Appears in no apparent distress. uncomfortable, Behavior is calm, cooperative, jd3 appropriate for age. Pain: Complains of pain in back, left hip and right hip Quality of pain is described as aching, tender. Neuro: Level of Consciousness is awake, alert, obeys commands, Oriented to person, place, time, situation. Cardiovascular: Denies chest pain, Capillary refill < 3 seconds Patient's skin is warm and dry. Rhythm is sinus bradycardia. Respiratory: Reports shortness of breath at rest cough that is persistent Airway is patent Respiratory effort is even, unlabored, Respiratory pattern is regular, symmetrical, tachypnea Breath sounds are diminished bilaterally. GI: Reports diarrhea, Patient currently denies abdominal pain. : No signs and/or symptoms were reported regarding the genitourinary system. EENT: No signs and/or symptoms were reported regarding the EENT system. Derm: Skin is intact, Skin is dry, Skin is normal, Skin temperature is warm. Musculoskeletal: Circulation, motion, and sensation intact. Range of motion: intact in all extremities. 08:57 Reassessment: No changes from previously documented assessment. Patient and/or family jd3 updated on plan of care and expected duration. Pain level reassessed. Patient is alert, oriented x 3, equal unlabored respirations, skin warm/dry/pink. 10:03 Reassessment: Patient appears in no apparent distress at this time. Patient and/or jd3 family updated on plan of care and expected duration. Pain level reassessed. Patient is alert, oriented x 3, equal unlabored respirations, skin warm/dry/pink. Patient states feeling better. 12:14 Reassessment: Patient appears in no apparent distress at this time. No changes from jd3 previously documented assessment. Patient and/or family updated on plan of care and expected duration. Pain level reassessed. Patient is alert, oriented x 3, equal unlabored respirations, skin warm/dry/pink. 12:22 Reassessment: charting continued in [facility]. jd3 18:49 Reassessment: Lab called to let DAVID Sparks know that she was not able to draw the rb3 1700 troponin that was due. DAVID Sparks notified. Vital Signs: 07:18 BP 99 / 50; Pulse 59; Resp 24 S; Temp 98.9(O); Pulse Ox 95% on 3 lpm NC; Weight 111.13 jd3 kg (R); Height 5 ft. 3 in. (160.02 cm) (R); Pain 8/10; 08:57 BP 98 / 53; Pulse 50; Resp 22 S; Pulse Ox 98% on 3 lpm NC; jd3 10:02 BP 97 / 51; Pulse 57; Resp 21 S; Pulse Ox 97% on 3 lpm NC; jd3 12:14 BP 107 / 59; Pulse 50; Resp 21 S; Pulse Ox 99% on 3 lpm NC; jd3 07:18 Body Mass Index 43.40 (111.13 kg, 160.02 cm) jd3 ED Course: 07:17 Patient arrived in ED. jd3 07:18 Lamonte Geller MD is Attending Physician. martin 07:18 Arm band placed on. EKG completed in triage. Results shown to MD. jd3 07:20 Bridger Domingo RN is Primary Nurse. jd3 07:22 Triage completed. jd3 07:42 Accessed using ,sterile technique, per hospital protocol. Clean \\T\\ dry. Dressing intact. jd3 Good blood return. Flushes easily. 18 G power-glide midline done by Shelli HERNANDEZ to the right AC.. 07:44 Patient has correct armband on for positive identification. Placed in gown. Bed in low jd3 position. Call light in reach. Side rails up X 1. air conditioning service technician on. Pulse ox on. NIBP on. 08:24 XRAY Chest (1 view) In Process Unspecified. EDMS 09:16 Robbin Cabello MD is Hospitalizing Provider. martin 13:12 No provider procedures requiring assistance completed. Patient admitted, IV remains in jd3 place. Administered Medications: 08:00 Drug: NS 0.9% 500 ml Route: IV; Rate: bolus; Site: right upper arm; rb3 09:00 Follow up: Response: No adverse reaction; IV Status: Completed infusion jd3 08:00 Drug: Pepcid (famotidine) 20 mg Route: IVP; Site: right upper arm; rb3 09:00 Follow up: Response: No adverse reaction jd3 08:54 Drug: NS 0.9% 1000 ml Route: IV; Rate: 125 ml/hr; Site: right antecubital; jd3 12:20 Follow up: Response: No adverse reaction; IV Status: Infusion continued upon admission jd3 09:15 CANCELLED (Duplicate Order): Remdesivir 200 mg IV at per protocol once; administer on [facility] day 1 of therapy 09:38 Drug: Zithromax (azithromycin) 500 mg Route: IVPB; Infused Over: 1 hrs; Site: right d3 antecubital; 12:20 Follow up: Response: No adverse reaction; IV Status: Completed infusion jd3 09:38 Drug: Rocephin (cefTRIAXone) 1 grams Route: IV; Rate: per protocol; Site: right d3 antecubital; 10:30 Follow up: Response: No adverse reaction; IV Status: Completed infusion jd3 09:38 Drug: Eliquis (apixaban) 5 mg Route: PO; jd3 10:30 Follow up: Response: No adverse reaction jd3 09:38 Drug: SOLU-Medrol (methylPrednisoLONE) 80 mg Route: IVP; Site: right antecubital; jd3 10:30 Follow up: Response: No adverse reaction jd3 Outcome: 09:18 Decision to Hospitalize by Provider. [facility] 13:12 Admitted to ER Hold. Please see [facility] for further documentation. jd3 13:12 Condition: stable 13:12 Instructed on the need for admit. 12/12 00:59 Patient left the ED. jb4 Signatures: Dispatcher [employer] EDLamonte Mauro MD MD cha Bryson, James, RN RN jb4 Bridger Domingo RN RN jd3 Yumiko Leiva RN RN rb3 Corrections: (The following items were deleted from the chart) 12/11 07:29 07:24 Home Meds: pregabalin Oral; jd3 jd3
[2020-12-11] MEDS ORDERED: APIXABAN 5 MG TABLET ONE ×2 (09:41→21:23)
[2020-12-11] MEDS ORDERED: METHYLPREDNISOLONE 40 MG INJ ONE ×2 (09:42→21:24)
[2020-12-11] MEDS ORDERED: CEFTRIAXONE/SWI 1gm 1 GM/10 ML SYR ONE (09:42)
[2020-12-11] MEDS ORDERED: ONDANSETRON 4 MG/2 ML VIAL IV PRN (12:41)
[2020-12-11] MEDS ORDERED: IPRATROPIUM BROM 0.5MG/2.5ML NEB PRN (12:41)
[2020-12-11] MEDS ORDERED: ALBUTEROL 2.5 MG/3 ML NEB SOL NEB PRN (12:41)
[2020-12-11 13:09] LABS: Blood Morphology Comment NOT SEEN (NOT SEEN); Platelet Estimate DECR; White Blood Cell Scan OK (OK)
[2020-12-11 13:32] VITALS: BMI 43.4
[2020-12-11] MEDS ORDERED: LEVALBUTEROL 1.25 MG/3 ML NEB NEB SCH (14:00)
[2020-12-11] MEDS ORDERED: TIZANIDINE 4 MG TABLET PO PRN (19:08)
[2020-12-11] MEDS: BENZONATATE 100 MG CAP PO PRN (20:47)
[2020-12-11] MEDS ORDERED: IBUPROFEN 200 MG TAB PO ONE (20:50)
[2020-12-11] MEDS ORDERED: BENZONATATE 100 MG CAP PO ONE (20:50)
[2020-12-11] MEDS: IBUPROFEN 600 MG TAB PO SCH (21:00)
[2020-12-11] MEDS: PRAMIPEXOLE 0.25 MG TAB PO SCH (21:00)
[2020-12-11] MEDS: CLOTRIMAZOLE 1% CREAM 15 GM TOP SCH (21:00)
[2020-12-11] MEDS: METHYLPREDNISOLONE 125 MG INJ IV SCH (21:00)
[2020-12-11] MEDS: APIXABAN 5 MG TABLET PO SCH (21:00)
[2020-12-11] MEDS: QUETIAPINE 100MG TAB PO SCH (21:00)
[2020-12-11] MEDS: MIRTAZAPINE 15 MG TAB PO SCH (21:00)
[2020-12-11] MEDS ORDERED: MIRTAZAPINE 15 MG TAB ONE (21:39)
[2020-12-11] MEDS ORDERED: QUETIAPINE 100MG TAB ONE (21:39)
[2020-12-11] MEDS ORDERED: PRAMIPEXOLE 0.25 MG TAB ONE (21:39)
[2020-12-11] MEDS ORDERED: ONDANSETRON 4 MG/2 ML VIAL ONE (23:07)
[2020-12-12] MEDS: LEVOTHYROXINE SOD 0.112 MG TAB PO SCH (05:24)
[2020-12-12 06:31] LABS: Absolute Lymphocytes (CBC) 0.6 K/uL (0.7-4.9); Basophils % 0.1 % (0-1.3); Hematocrit 31.3 % (36.0-45.0); Lymphocytes % 6.8 % (15.3-44.8); MPV 8.7 fL (7.6-11.3); RBC Red Blood Cell Count 3.85 M/uL (3.86-4.86)
--- NOTE | 2020-12-12 07:39 | RAD REPORT ---
EXAM DESCRIPTION: RAD - Chest Single View - 12/12/2020 6:45 am CLINICAL HISTORY: Chest Pain COMPARISON: Chest Single View dated 12/11/2020; Chest Single View dated 04/12/2020 FINDINGS: Lines: None. Lungs: Bilateral prominence of the pulmonary interstitium with more focal type opacities at the left lung base. Pleural: Question left pleural effusion Cardiac: Cardiomegaly. Bones: No acute fractures. Other: IMPRESSION: Multifocal pneumonia versus edema and possible left pleural effusion.
[2020-12-12] MEDS: IBUPROFEN 600 MG TAB PO SCH ×2 (09:00→21:00)
[2020-12-12] MEDS ORDERED: AZITHROMYCIN IV 250 MG in NA CHLORIDE 0.9% 250 ML IVPB SCH (09:00)
[2020-12-12] MEDS: CEFTRIAXONE/SWI 1gm 1 GM/10 ML SYR IV SCH (09:00)
[2020-12-12] MEDS ORDERED: CEFTRIAXONE 1 GM/NS 50 ML 1 GM/50 ML BAG IV SCH (09:00)
[2020-12-12] MEDS: CLOTRIMAZOLE 1% CREAM 15 GM TOP SCH ×2 (09:00→21:00)
[2020-12-12] MEDS: DESVENLAFAXINE SUCCINATE 50 MG ER TAB PO SCH (09:00)
[2020-12-12] MEDS: METHYLPREDNISOLONE 125 MG INJ IV SCH ×2 (10:29→19:53)
[2020-12-12] MEDS: FUROSEMIDE 20 MG TABLET PO SCH (10:29)
[2020-12-12] MEDS: FAMOTIDINE 20 MG/2 ML VIAL IV SCH (10:29)
[2020-12-12] MEDS: PREGABALIN 50 MG CAP PO SCH (10:30)
[2020-12-12] MEDS: LOSARTAN POTASSIUM 50 MG TABLET PO SCH (10:30)
[2020-12-12] MEDS: MEMANTINE HCL 10 MG TABLET PO SCH (10:30)
[2020-12-12] MEDS: APIXABAN 5 MG TABLET PO SCH ×2 (10:30→19:53)
[2020-12-12] MEDS: FLUTICASONE 50MCG NASAL SPRAY NAS SCH ×2 (11:45→21:00)
--- NOTE | 2020-12-12 11:59 | HP ---
Date of Admission: 12/11/2020 Chief Complaint: Shortness of breath. History Of Present Illness: This is a 70-year-old female patient who had gone out of town for a short vacation to [place] with her family. This was about 2-3 weeks ago. Sunday of this week she had her first COVID-19 vaccine and next day on she started to have some cough and fever. Sometime last week, she went to her pain management physician's office for refill on her pain pump. The patient had COVID-19 test done on that came back positive and today she came into emergency room with complaints of shortness of breath and after she was evaluated she was admitted to the hospital. Her initial oxygen saturation on room air was low at 86%. The patient's daughter did take her to [facility] yesterday to get monoclonal antibody infusion treatment. The patient denies any expectoration. Allergies: CODEINE CAUSING NAUSEA. MORPHINE CAUSING NAUSEA. SULFA CAUSING HIVES. Medications: List reviewed. Review of Systems: Respiratory: As mentioned above. All other systems reviewed and negative. Family History: Not pertinent. Social History: Negative for smoking and alcohol use. Past Medical History: Significant for hypothyroidism, chronic back pain, hypertension, restless leg syndrome, vitamin D deficiency, fibromyalgia, depression, insomnia. Past Surgical History: Hysterectomy; bilateral hip replacement, right hip replacement was done in 2004, left hip replacement in 2010; back surgery in 2013; spinal stimulator placement in 2014; another back surgery in 2016; morphine pump implanted in 2018 and subsequently it was removed 2 months later and had replacement of pain pump again in 2018. In 2019, she had back surgery for removal of hardware. Physical Examination: Vital Signs: Temperature 98.9, pulse 59, respiratory rate 24, blood pressure 99/50, oxygen saturation 95% on 3 L nasal cannula oxygen. Height 5 feet 3 inches, weight 245 pounds. General: Awake, alert, oriented, not in distress. HEENT: Head atraumatic, normocephalic. Conjunctivae nonerythematous. Sclerae white. Mouth, no thrush or edema noted. Ears/Nose, no mass, lesion, discharge noted. Neck: Supple. No JVD, lymph nodes, bruit, thyromegaly noted. Lungs: Bilateral good equal air entry. Clear to auscultation. No rhonchi. No rales. Heart: Normal heart sounds, no murmur or gallop. Abdomen: Soft, bowel sounds normal. No guarding, rigidity, tenderness, mass, hepatosplenomegaly, distention, or bruit noted. Extremities: No leg edema. No calf tenderness. Skin: No rash, ulcer, cellulitis. Lymphatics: No lymph node enlargement in neck, supraclavicular, infraclavicular region. Neuro: No focal neurological deficit. Chest: Unremarkable. External Genitalia: Deferred. Rectal: Deferred. Laboratory Data: White count 9.7, hemoglobin 10.7, platelets 121. D-dimer 1827. INR 1.18. Sodium 137, potassium 4.1, chloride 104, bicarb 28, BUN 31, creatinine 1.97, glucose 176. Ferritin level 499. AST 44, ALT 29, alkaline phosphatase 82, troponin less than 0.02. CRP 173. Lipase 51. Chest x-ray shows mild bilateral pulmonary opacities. Impression: 1. COVID-19 infection. 2. COVID-19 pneumonia. 3. Acute respiratory failure with hypoxia. 4. Anemia, unspecified. 5. Thrombocytopenia. 6. Volume depletion. 7. Hypertension. 8. Hypothyroidism. 9. Fibromyalgia. 10. Restless leg syndrome. 11. Insomnia. Plan: We will admit the patient to hospital for further evaluation and management of this problem. The patient is appropriate for inpatient and is expected to spend 2 midnights in hospital. We will go ahead and continue home medications per order. Consult Dr. Barnes from Pulmonary Service. We will start her on antibiotics, IV steroids, and Eliquis per order. I will see her tomorrow for followup. We will repeat chest x-ray and blood work tomorrow. Details and plan of treatment discussed with her. We will monitor her CBC and renal function. IV fluid will be given for volume depletion problem. BO/MODL Voice ID: [id number] [id number]
--- NOTE | 2020-12-12 12:31 | PN ---
Date of Progress Note: 12/12/2020 Subjective: The patient was seen this morning for followup. No new complaints or problems reported by the patient, lying in bed, not in distress. She is having lot of diarrhea since she has been in [facility] and requesting something for that. Objective: Vital Signs: Reviewed. HEENT: Unremarkable. Lungs: Clear to auscultation. Heart: Sounds normal. Abdomen: Soft. Bowel sounds normal. No guarding, rigidity, tenderness, or distention. Extremities: No leg edema. Laboratory Data: Sodium 147, potassium 4, chloride 115, bicarb 28, BUN 23, creatinine 1.05, and gluc ose 133. White count 9.4, hemoglobin 10.3, and platelets 140. Impression: 1.COVID-19 infection. 2.COVID-19 pneumonia. 3.Acute respiratory failure with hypoxia. 4.Anemia. 5.Thrombocytopenia. 6.Volume depletion. Plan: We will continue current medication. The patient's volume depletion problem has improved. We will continue current oxygen replacement therapy, antibiotics, steroids, and I have ordered some Imo dium for p.r.n. use for diarrhea. She is also complaining of lot of pain in her right maxillary sinu s and behind her right eye. Neurological examination today did not reveal any focal neurological def icits. She has lot of sinus congestion and also has some tenderness over right maxillary sinus. I s uspect she probably has acute maxillary sinusitis and current antibiotics should help her, but I have also started her on Flonase nasal spray. We will see her tomorrow for followup. BO/MODL Voice ID: [id number] Report ID: [id number]
[2020-12-12] MEDS: LOPERAMIDE HCL 2 MG CAPSULE PO PRN ×2 (13:49→20:21)
[2020-12-12] MEDS: ACETAMINOPHEN 325 MG TABLET PO PRN (18:09)
[2020-12-12] MEDS: MIRTAZAPINE 15 MG TAB PO SCH (19:52)
[2020-12-12] MEDS: PRAMIPEXOLE 0.25 MG TAB PO SCH (19:52)
[2020-12-12] MEDS: QUETIAPINE 100MG TAB PO SCH (19:53)
--- NOTE | 2020-12-12 20:54 | P.CNS ---
Date of Consult: 12/11/20 Reason for Consult: COVID carolyn Chief Complaint: SOB History of Present Illness: AGE 70 DX with COVID Rx with [employer]ener[employer] AW SOB , Ccough and GI symptms Pt hypoxic/ Recently vaccinated Allergies codeine Allergy (Verified 04/28/20 20:27) Nausea/Vomiting morphine Allergy (Verified 04/28/20 20:23) Hives/Rash Sulfa (Sulfonamide Antibiotics) Allergy (Verified 04/28/20 20:27) Hives/Rash Home Medications: Desvenlafaxine [Desvenlafaxine ER] 100 mg PO DAILY 05/03/20 Levothyroxine [Synthroid*] 0.112 mg PO DAILY 05/03/20 Mirtazapine [Remeron*] 15 mg PO BEDTIME 05/03/20 Pramipexole Di-HCl [Mirapex] 0.5 mg PO BEDTIME 05/03/20 Pregabalin [Lyrica] 2 tab PO DAILY 05/03/20 Quetiapine Fumarate [Seroquel] 100 mg PO BEDTIME 05/03/20 Clotrimazole [Lotrimin 1% Cream*] 1 noy TOP BID #2 tube 05/08/20 Furosemide 20 mg PO DAILY 12/11/20 Losartan Potassium 100 mg PO DAILY 12/11/20 Memantine HCl 5 mg PO DAILY 12/11/20 Tizanidine [Zanaflex] 4 mg PO PRN 12/11/20 Vitamin D [Drisdol] 50,000 unit PO EVERY 7TH DAY 12/11/20 - Past Medical/Surgical History Diabetic: No -: low thyroid -: fibromyalgia -: HTN -: restless leg -: depression -: dementia -: chonic pain -: hysterectomy -: right hip -: left hip -: back surgery -: back stimulator placed -: reomoved stimulator -: pain pump placed - Social History Smoking Status: Unknown if ever smoked Alcohol use: No CD- Drugs: No Caffeine use: No Place of Residence: Home Review of Systems General: Weakness Respiratory: Cough, Shortness of Breath Gastrointestinal: Nausea, Diarrhea Physical Examination Temp Pulse Resp BP Pulse Ox 98.2 F 45 L 16 128/59 L 100 12/12/20 16:00 12/12/20 16:00 12/12/20 16:00 12/12/20 16:00 12/12/20 16:00 - Problems (1) Pneumonia due to COVID-19 virus Current Visit: Yes Status: Acute Plan: AGe 70 S{ hao AW NUBIAID penumonia/ REJI perez may qualify for Barctinib if CRP > 75 and on high flow O2 /VS stable/ labs reviewed
[2020-12-13] MEDS ORDERED: DIPHENHYDRAMINE 25 MG TAB/CAP ONE (00:34)
[2020-12-13] MEDS: ACETAMINOPHEN 325 MG TABLET PO PRN ×2 (02:14→15:00)
[2020-12-13] MEDS: LEVOTHYROXINE SOD 0.112 MG TAB PO SCH (05:36)
[2020-12-13] MEDS: PREGABALIN 50 MG CAP PO SCH (08:34)
[2020-12-13] MEDS: LOSARTAN POTASSIUM 50 MG TABLET PO SCH (08:35)
[2020-12-13] MEDS: FUROSEMIDE 20 MG TABLET PO SCH (08:35)
[2020-12-13] MEDS: APIXABAN 5 MG TABLET PO SCH ×2 (08:35→20:02)
[2020-12-13] MEDS: DESVENLAFAXINE SUCCINATE 50 MG ER TAB PO SCH (08:35)
[2020-12-13] MEDS: MEMANTINE HCL 10 MG TABLET PO SCH ×2 (08:35→20:02)
[2020-12-13] MEDS: LOPERAMIDE HCL 2 MG CAPSULE PO PRN ×4 (08:35→21:28)
[2020-12-13] MEDS: IBUPROFEN 600 MG TAB PO SCH ×2 (08:36→20:17)
[2020-12-13] MEDS: METHYLPREDNISOLONE 125 MG INJ IV SCH ×2 (08:37→20:18)
[2020-12-13] MEDS: CLOTRIMAZOLE 1% CREAM 15 GM TOP SCH ×2 (08:37→20:17)
[2020-12-13] MEDS: FAMOTIDINE 20 MG/2 ML VIAL IV SCH (08:37)
[2020-12-13] MEDS: FLUTICASONE 50MCG NASAL SPRAY NAS SCH ×2 (08:37→20:17)
[2020-12-13] MEDS: CEFTRIAXONE/SWI 1gm 1 GM/10 ML SYR IV SCH (08:38)
[2020-12-13] MEDS ORDERED: BARICITINIB 2 MG TABLET PO SCH (10:00)
[2020-12-13] MEDS: BARICITINIB 2 MG TABLET PO SCH (10:57)
--- NOTE | 2020-12-13 11:24 | P.PN ---
Subjective Date of Service: 12/13/20 Chief Complaint: Coronavirus pneumonia Subjective: Improving (Improving doing well oxygenation satisfactory) Review of Systems General: Weakness Respiratory: Shortness of Breath Physical Examination - Vital Signs Temperature: 96.9 F Blood Pressure: 148/70 Pulse: 38 Respirations: 20 Pulse Ox (%): 100 - Physical Exam General: Alert, Oriented x3, Cooperative - Studies Microbiology Data (last 24 hrs): 12/11/20 08:46 Catheterized Urine [place] Count - Final <10,000 CFU/ML. 12/11/20 08:46 Catheterized Urine - Final MIXED RACHELE. Assessment & Plan - Problems (Diagnosis) (1) Pneumonia due to COVID-19 virus Current Visit: Yes Status: Acute Plan: Respiratory failure patient is on maximal therapy doing better hyponatremia started on D5 water hold Lasix for now patient is on Barcitinib and steroids should be able to titrate her oxygen down discharge planning
[2020-12-13 11:29] LABS: Absolute Lymphocytes (CBC) 0.8 K/uL (0.7-4.9); Basophils % 0.1 % (0-1.3); Hematocrit 35.2 % (36.0-45.0); Lymphocytes % 10.7 % (15.3-44.8); MPV 8.8 fL (7.6-11.3); RBC Red Blood Cell Count 4.32 M/uL (3.86-4.86)
[2020-12-13 12:07] LABS: Albumin 2.5 g/dL (3.4-5.0); Bilirubin Total 0.2 mg/dL (0.2-1.0); C-Reactive Protein 55.2 mg/L (<3.00); Magnesium 2.1 mg/dL (1.8-2.4); Potassium 4.3 mmol/L (3.5-5.1); Protein, Total 6.7 g/dL (6.4-8.2); Thyroid Stimulating Hormone 0.087 uIU/mL (0.360-3.740)
[2020-12-13] MEDS: D5W 1,000 ML IV SCH (12:35)
--- NOTE | 2020-12-13 16:59 | EKG ---
Test Date: 2020-12-11 Test Time: 20:05:29 Day Treatment Clinician/Art Therapist: DANN MEASUREMENT RESULTS: Intervals: Rate: 56 OK: 152 QRSD: 82 QT: 402 QTc: 387 [place]: P: 58 OK: 152 QRS: 261 T: 34 INTERPRETIVE STATEMENTS: Sinus bradycardia with sinus arrhythmia Right superior axis deviation Right ventricular hypertrophy Cannot rule out Anterior infarct, age undetermined Abnormal ECG Compared to ECG 12/11/2020 07:52:59 Right superior axis now present Right ventricular hypertrophy now present Left anterior fascicular block no longer present Myocardial infarct finding still present Electronically Signed On 12-13-20 16:56:11 CDT by Mihir Ortiz
--- NOTE | 2020-12-13 17:02 | EKG ---
Test Date: 2020-12-11 Test Time: 07:52:59 [place]: CODY MEASUREMENT RESULTS: Intervals: Rate: 57 VT: 158 QRSD: 86 QT: 408 QTc: 397 [place]: P: 61 VT: 158 QRS: -71 T: 55 INTERPRETIVE STATEMENTS: Sinus bradycardia Low voltage QRS Left anterior fascicular block Possible Anterolateral infarct, age undetermined Abnormal ECG Compared to ECG 12/25/2004 05:39:00 Low QRS voltage now present Left anterior fascicular block now present Myocardial infarct finding now present Sinus rhythm no longer present Electronically Signed On 12-13-20 16:57:18 CDT by Mihir Ortiz
--- NOTE | 2020-12-13 20:00 | PN ---
Date of Progress Note: 12/13/2020 The patient was evaluated via tele-visit today for followup visit and this included audio and video advid thomas. She was lying in bed, not in distress, on nasal cannula at 10 L of oxygen per minute. Vit al signs reviewed. The patient denied any specific complaints. She still has some diarrhea and is u sing Imodium, but still has some diarrhea. Today, she was noted to have significant bradycardia with heart rate in the range of 30 to 40 beats per minute, so stat EKG and blood work was done, results r lalita. Impression: 1.Sinus bradycardia. 2.COVID-19 infection. 3.COVID-19 pneumonia. 4.Acute respiratory failure with hypoxia. 5.Hypertension. 6.Hypothyroidism. Plan: We will go ahead and continue to follow up with card writer hand who was consulted today and andrzej ac were discussed with him. The patient is hemodynamically stable at this point. There is no need f or pacemaker placement, but we will continue to monitor her closely on color television console monitor. Continue o ther current medications. Continue current anticoagulation therapy and antihypertensive medication. She is not on medication at this point that will contribute to her bradycardia problem. Continue on steroid, antibiotics, and I have discussed details with gravel machine operator Dr. Barnes and I will see he r tomorrow for followup. BO/MODL Voice ID: [id number] Report ID: [id number]
[2020-12-13] MEDS: PRAMIPEXOLE 0.25 MG TAB PO SCH (20:02)
[2020-12-13] MEDS: QUETIAPINE 100MG TAB PO SCH (20:02)
[2020-12-13] MEDS: MIRTAZAPINE 15 MG TAB PO SCH (20:02)
[2020-12-13] MEDS: DIPHENHYDRAMINE 25 MG TAB/CAP PO PRN (21:27)
[2020-12-13] MEDS: BENZONATATE 100 MG CAP PO PRN (21:31)
[2020-12-14] MEDS: D5W 1,000 ML IV SCH ×2 (01:16→14:43)
[2020-12-14] MEDS: LEVOTHYROXINE SOD 0.112 MG TAB PO SCH (05:27)
[2020-12-14] MEDS: LOPERAMIDE HCL 2 MG CAPSULE PO PRN ×2 (05:32→20:04)
[2020-12-14] MEDS ORDERED: DIPHENOX/ATROP SULF 1 TAB PO PRN (07:39)
[2020-12-14] MEDS: BARICITINIB 2 MG TABLET PO SCH (08:41)
[2020-12-14] MEDS: MEMANTINE HCL 10 MG TABLET PO SCH (08:41)
[2020-12-14] MEDS: DESVENLAFAXINE SUCCINATE 50 MG ER TAB PO SCH (08:41)
[2020-12-14] MEDS: METHYLPREDNISOLONE 125 MG INJ IV SCH (08:42)
[2020-12-14] MEDS: APIXABAN 5 MG TABLET PO SCH ×2 (08:42→20:05)
[2020-12-14] MEDS: CEFTRIAXONE/SWI 1gm 1 GM/10 ML SYR IV SCH (08:42)
[2020-12-14] MEDS: LOSARTAN POTASSIUM 50 MG TABLET PO SCH (08:42)
[2020-12-14] MEDS: FAMOTIDINE 20 MG/2 ML VIAL IV SCH (08:42)
[2020-12-14] MEDS: CLOTRIMAZOLE 1% CREAM 15 GM TOP SCH ×2 (08:43→20:07)
[2020-12-14] MEDS: IBUPROFEN 600 MG TAB PO SCH ×3 (08:43→20:04)
[2020-12-14] MEDS: FLUTICASONE 50MCG NASAL SPRAY NAS SCH ×2 (08:43→20:07)
[2020-12-14] MEDS: PREGABALIN 50 MG CAP PO SCH (09:00)
[2020-12-14] MEDS: ACETAMINOPHEN 325 MG TABLET PO PRN (09:59)
--- NOTE | 2020-12-14 13:51 | P.PN ---
Subjective Date of Service: 12/14/20 Chief Complaint: Coronavirus pneumonia Subjective: Improving (Doing much better no complaints) Review of Systems General: Weakness Respiratory: Shortness of Breath Physical Examination - Vital Signs Temperature: 97.1 F Blood Pressure: 148/80 Pulse: 47 Respirations: 20 Pulse Ox (%): 98 - Physical Exam General: Alert, Oriented x3, Cooperative - Studies Microbiology Data (last 24 hrs): 12/11/20 08:46 Catheterized Urine [place] Count - Final <10,000 CFU/ML. 12/11/20 08:46 Catheterized Urine - Final MIXED RACHELE. Assessment & Plan - Problems (Diagnosis) (1) Pneumonia due to COVID-19 virus Current Visit: Yes Status: Acute Plan: Doignmuch better plan to DC home. O ordered/ labs reviewed / inc fluid intake at home/ reduce solumedrol
--- NOTE | 2020-12-14 14:25 | CON ---
Date of Consultation: 12/13/[address] Cabello's service on 12/11/2020 with COVID infection. Reason For Consultation: Bradycardia. History Of Present Illness: Ms. Rico is a 70, no previous cardiac history, admitted with COVID, who had sinus bradycardia when she came in, but this have gotten worse with a heart rate of 30s and 40s, but she maintained an adequate blood pressure. I was asked to consult on her. She denied chest pain . Complained of weakness. Denied any nausea, vomiting, diaphoresis, PND, orthopnea, pedal edema, pa lpitations, or syncope. Past Medical History: Fairly unremarkable. Allergies: SHE IS ALLERGIC TO NO MEDICATION. Medications: At home do not include calcium holden or beta holden. Physical Examination: Fairly unremarkable except for her bradycardia. HEENT: Negative. Neck: Supple with no bruit. Chest: Clear. Cardiac: Did not reveal any aortic sclerosis murmur or aortic stenosis murmur. Laboratory Data: Her laboratory evaluations are fairly unremarkable. Her TSH is borderline. Echoca rdiogram is pending. We will plan to see what her echocardiogram shows maybe increase her thyroid level. I would use atro pine on an as-needed basis if she becomes hypotensive. She may need an event monitor down the road, make sure she is not having further worsening bradycardia or sinus pauses, at which time, we should c onsider a pacemaker placement. I will be available for questions if the need arises. We will see what her echocardiogram shows first. MACY/J LUIS Voice ID: [id number] Report ID: [id number]
[2020-12-14] MEDS ORDERED: hydroCHLOROthiazide 12.5 MG CAP PO ONE (18:00)
--- NOTE | 2020-12-14 18:30 | EKG ---
Test Date: 2020-12-14 Test Time: 11:55:48 Casting Tester: QUENTIN MEASUREMENT RESULTS: Intervals: Rate: 40 GA: 132 QRSD: 90 QT: 462 QTc: 376 [place]: P: 45 GA: 132 QRS: -54 T: 31 INTERPRETIVE STATEMENTS: Marked sinus bradycardia Low voltage QRS Left anterior fascicular block Cannot rule out Anterior infarct, age undetermined Abnormal ECG Compared to ECG 12/13/2020 10:45:43 No significant changes Electronically Signed On 12-14-20 18:29:35 CDT by Mihir Ortiz
[2020-12-14] MEDS: MIRTAZAPINE 15 MG TAB PO SCH ×2 (20:04→20:05)
[2020-12-14] MEDS: DIPHENHYDRAMINE 25 MG TAB/CAP PO PRN (20:05)
[2020-12-14] MEDS: QUETIAPINE 100MG TAB PO SCH (20:05)
[2020-12-14] MEDS: METHYLPREDNISOLONE 40 MG INJ IV SCH (20:05)
[2020-12-14] MEDS: BENZONATATE 100 MG CAP PO PRN (20:05)
[2020-12-14] MEDS: PRAMIPEXOLE 0.25 MG TAB PO SCH (20:12)
--- NOTE | 2020-12-14 22:16 | PN ---
Date of Progress Note: 12/14/2020 Subjective: The patient was seen this morning for followup. No new complaints problems reported by her. Lying in bed, not in distress. Objective: VITAL SIGNS: Reviewed. HEENT: Unremarkable. LUNGS: Clear to auscultation. CARDIAC: Heart sounds normal. ABDOMEN: Soft, bowel sounds normal. No guarding, rigidity, tenderness, or distention. EXTREMITIES: No leg edema. Impression: 1.COVID-19 infection. 2.COVID-19 pneumonia. 3.Acute respiratory failure with hypoxia. 4.Sinus bradycardia. 5.Hypertension. 6.Hypothyroidism. Plan: Continue current medications. Continue current steroid, oxygen replacement therapy. Currentl y when I saw her this morning, she was on 5 L nasal cannula oxygen. I have requested Social Service to make arrangements for home oxygen. We will repeat chest x-ray and blood work tomorrow. Possible discharge to go home tomorrow depending on her condition. BO/MODL Voice ID: [id number] Report ID: [id number]
[2020-12-14] MEDS ORDERED: METOPROLOL TARTRATE 5 MG/5 ML INJ IV STA (23:31)
[2020-12-14] MEDS ORDERED: METOPROLOL TARTRATE 5 MG/5 ML INJ IV ONE (23:59)
[2020-12-15] MEDS: D5W 1,000 ML IV SCH ×2 (03:27→16:52)
[2020-12-15 04:00] LABS: Basophils % 0.1 % (0-1.3); Hematocrit 39.2 % (36.0-45.0); Lymphocytes % 14.6 % (15.3-44.8); MPV 8.5 fL (7.6-11.3); RBC Red Blood Cell Count 4.89 M/uL (3.86-4.86)
[2020-12-15 04:17] LABS: Magnesium 2.1 mg/dL (1.8-2.4); Potassium 3.8 mmol/L (3.5-5.1)
[2020-12-15] MEDS: LEVOTHYROXINE SOD 0.112 MG TAB PO SCH (05:15)
--- NOTE | 2020-12-15 07:18 | RAD REPORT ---
EXAM DESCRIPTION: Simone Single View12/15/2020 6:11 am CLINICAL HISTORY: Chest pain COMPARISON: December 12, 2020 FINDINGS: Minimal improvement in the bilateral pulmonary opacities. The heart remains enlarged IMPRESSION: Minimal improvement in the bilateral pneumonia
--- NOTE | 2020-12-15 07:23 | ECHO ---
HEIGHT: 5 ft 3 in WEIGHT: 245 lb 0 oz DATE OF STUDY: 12/14/[address]: Aldo Cabello MD 2-DIMENSIONAL: YES M.MODE: YES DOPPLER: YES COLOR FLOW: YES TDS: PORTABLE: DEFINITY: BUBBLE STUDY: DIAGNOSIS: HYPERTENSION/ BRADYCARDIA CARDIAC HISTORY: CATHERIZATION: SURGERY: PROSTHETIC VALVE: PACEMAKER: MEASUREMENTS (cm) DIASTOLIC (NORMALS) SYSTOLIC (NORMALS) IVSd 1.0 (0.6-1.2) LA Diam 3.9 (1.9-4.0) LVEF 54% LVIDd 5.3 (3.5-5.7) LVIDs 3.9 (2.0-3.5) %FS 28% LVPWd 1.1 (0.6-1.2) Ao Diam 2.9 (2.0-3.7) 2 DIMENSIONAL ASSESSMENT: RIGHT ATRIUM: NORMAL LEFT ATRIUM: NORMAL RIGHT VENTRICLE: NORMAL LEFT VENTRICLE: NORMAL TRICUSPID VALVE: NORMAL MITRAL VALVE: NORMAL PULMONIC VALVE: NORMAL AORTIC VALVE: NORMAL PERICARDIAL EFFUSION: NONE AORTIC ROOT: NORMAL LEFT VENTRICULAR WALL MOTION: NORMAL DOPPLER/COLOR FLOW: NORMAL COMMENTS: NORMAL 2-DIMENSIONAL ECHOCARDIOGRAM WITH DOPPLER. NO WALL MOTION ABNORMALITY. NO EFFUSION. TECHNOLOGIST: CHERI CRUZ
[2020-12-15] MEDS: PREGABALIN 50 MG CAP PO SCH (08:58)
[2020-12-15] MEDS: DESVENLAFAXINE SUCCINATE 50 MG ER TAB PO SCH (08:58)
[2020-12-15] MEDS: BARICITINIB 2 MG TABLET PO SCH (08:58)
[2020-12-15] MEDS: APIXABAN 5 MG TABLET PO SCH ×2 (08:59→21:56)
[2020-12-15] MEDS: MEMANTINE HCL 10 MG TABLET PO SCH (08:59)
[2020-12-15] MEDS: LOSARTAN POTASSIUM 50 MG TABLET PO SCH (08:59)
[2020-12-15] MEDS: FAMOTIDINE 20 MG TAB PO SCH (08:59)
[2020-12-15] MEDS: IBUPROFEN 600 MG TAB PO SCH ×2 (09:00→21:00)
[2020-12-15] MEDS: CLOTRIMAZOLE 1% CREAM 15 GM TOP SCH ×2 (09:00→21:00)
[2020-12-15] MEDS: CEFTRIAXONE/SWI 1gm 1 GM/10 ML SYR IV SCH (09:00)
[2020-12-15] MEDS: FLUTICASONE 50MCG NASAL SPRAY NAS SCH ×2 (09:00→21:00)
[2020-12-15] MEDS: METHYLPREDNISOLONE 40 MG INJ IV SCH ×2 (09:00→21:57)
[2020-12-15] MEDS ORDERED: IBUPROFEN 200 MG TAB PO ONE (09:33)
[2020-12-15] MEDS ORDERED: DIGOXIN 0.25 MG/ML AMP IV ONE (09:44)
--- NOTE | 2020-12-15 11:27 | EKG ---
Test Date: 2020-12-14 Test Time: 23:30:42 Supervisor Partial Denture Department: RT MEASUREMENT RESULTS: Intervals: Rate: 130 MD: QRSD: 88 QT: 318 QTc: 467 [place]: P: MD: QRS: -57 T: 65 INTERPRETIVE STATEMENTS: Atrial fibrillation with rapid ventricular response Left anterior fascicular block Possible Anterolateral infarct, age undetermined Abnormal ECG Compared to ECG 12/14/2020 11:55:48 Sinus bradycardia no longer present Myocardial infarct finding still present Electronically Signed On 12-15-20 11:26:24 CDT by Mihir Ortiz
--- NOTE | 2020-12-15 21:16 | PN ---
Date of Progress Note: 12/15/2020 Subjective: The patient was seen this morning for followup. No new complaints or problems reported by her. She was lying in bed, not in distress. Last night, she went into atrial fibrillation with r apid ventricular rate. Heart rate was anywhere between 140-150. Blood pressure was normal. She was given 1 dose of IV Lopressor 5 mg. This morning, she was still in atrial fibrillation with heart ra te between 100-120 per minute. Objective: Vital Signs: Reviewed. HEENT: Unremarkable. Lungs: Clear to auscultation. Heart: Heart sounds normal. Abdomen: Soft, bowel sounds normal. No guarding, rigidity, tenderness, distention. Extremities: No leg edema. Laboratory Data: White count 6.6, hemoglobin 12.8, platelets 172. Sodium 142, potassium 3.8, chlori de 106, bicarb 29, BUN 26, creatinine 1.19, glucose 177. CRP 15. Impression: 1.COVID-19 infection. 2.COVID-19 pneumonia. 3.Acute respiratory failure with hypoxia. 4.Paroxysmal atrial fibrillation. 5.Hypertension. 6.Hypothyroidism. 7.Sinus bradycardia. 8.Sick sinus syndrome. Plan: The patient had sinus bradycardia 2-3 days ago with heart rate between 30-40 per minute and no w last night she had atrial fibrillation. This is indicating sick sinus syndrome. At this point, th ere is no indication for pacemaker placement. Dr. Ortiz was requested to see her this morning for followup and I did communicate with him and he was going to order digoxin. Later this evening, elsy monroe has converted to normal sinus rhythm. This morning, when I saw her, she was still on oxygen nasal cannula 6 L/minute and we will make arrangements for home oxygen and hopefully in next day or 2 days we will be able to discharge her to go home depending on oxygen requirement. I would like to see he r now on 4 to 5 L nasal cannula oxygen before I plan to discharge her. Details were discussed with talita alcantar. BO/J LUIS Voice ID: [id number] Report ID: [id number]
[2020-12-15] MEDS: PRAMIPEXOLE 0.25 MG TAB PO SCH (21:56)
[2020-12-15] MEDS: QUETIAPINE 100MG TAB PO SCH (21:57)
[2020-12-15] MEDS: DIPHENHYDRAMINE 25 MG TAB/CAP PO PRN (21:58)
[2020-12-15] MEDS: BENZONATATE 100 MG CAP PO PRN (21:58)
[2020-12-16] MEDS: ACETAMINOPHEN 325 MG TABLET PO PRN (04:50)
[2020-12-16] MEDS: D5W 1,000 ML IV SCH ×2 (06:30→20:00)
[2020-12-16] MEDS: LEVOTHYROXINE SOD 0.112 MG TAB PO SCH (06:30)
[2020-12-16] MEDS ORDERED: D50W 25 GM/50 ML SYRINGE IV PRN (07:44)
[2020-12-16] MEDS ORDERED: GLUCAGON 1 MG/VIAL IM PRN (07:44)
[2020-12-16] MEDS: LOSARTAN POTASSIUM 50 MG TABLET PO SCH (08:53)
[2020-12-16] MEDS: MEMANTINE HCL 10 MG TABLET PO SCH (08:54)
[2020-12-16] MEDS: PREGABALIN 50 MG CAP PO SCH (08:54)
[2020-12-16] MEDS: APIXABAN 5 MG TABLET PO SCH ×2 (08:54→21:34)
[2020-12-16] MEDS: FAMOTIDINE 20 MG TAB PO SCH (08:54)
[2020-12-16] MEDS: FLUTICASONE 50MCG NASAL SPRAY NAS SCH ×2 (08:55→21:00)
[2020-12-16] MEDS: CLOTRIMAZOLE 1% CREAM 15 GM TOP SCH ×2 (08:55→21:00)
[2020-12-16] MEDS: METHYLPREDNISOLONE 40 MG INJ IV SCH ×2 (08:55→17:24)
[2020-12-16] MEDS: CEFTRIAXONE/SWI 1gm 1 GM/10 ML SYR IV SCH (08:55)
[2020-12-16] MEDS: DESVENLAFAXINE SUCCINATE 50 MG ER TAB PO SCH (08:55)
[2020-12-16] MEDS: BARICITINIB 2 MG TABLET PO SCH (08:58)
[2020-12-16] MEDS: INSULIN -REGULAR HUMAN 50 UNIT/0.5 ML ML SQ SCH ×3 (11:30→21:00)
[2020-12-16] MEDS: IBUPROFEN 600 MG TAB PO SCH ×2 (11:59→21:33)
--- NOTE | 2020-12-16 12:07 | RAD REPORT ---
EXAM DESCRIPTION: RAD - Chest Single View - 12/16/2020 6:14 am CLINICAL HISTORY: The patient is 70 years old and is Female; COVID TECHNIQUE: Single view of the chest. COMPARISON: No relevant prior studies available. FINDINGS: Lungs: Left lower lobe infiltrate versus atelectasis. No pulmonary vascular congestion. Pleural space: Unremarkable. No pneumothorax. Heart: Cardiomegaly. Mediastinum: Unremarkable. Bones/joints: No acute fracture visualized. Upper abdomen: No free air in the visualized upper abdomen. IMPRESSION: Left lower lobe infiltrate versus atelectasis. Electronically signed by: Marion Alexander MD 12/16/2020 6:37 AM CDT Due to temporary technical issues with the PACS/Fluency reporting system, reports are being signed by the in house radiologist without review as a courtesy to ensure prompt reporting. The interpreting r adiologist is fully responsible for the content of the report.
[2020-12-16] MEDS ORDERED: cloNIDine HCL 0.1 MG TAB PO PRN (12:11)
[2020-12-16] MEDS: PRAMIPEXOLE 0.25 MG TAB PO SCH (21:34)
[2020-12-16] MEDS: MIRTAZAPINE 15 MG TAB PO SCH (21:34)
[2020-12-16] MEDS: QUETIAPINE 100MG TAB PO SCH (21:34)
[2020-12-17] MEDS: D5W 1,000 ML IV SCH (00:07)
[2020-12-17] MEDS: METHYLPREDNISOLONE 40 MG INJ IV SCH ×3 (01:36→17:15)
[2020-12-17 04:54] LABS: Absolute Lymphocytes (CBC) 0.4 K/uL (0.7-4.9); Basophils % 0.2 % (0-1.3); Hematocrit 36.3 % (36.0-45.0); Lymphocytes % 10.5 % (15.3-44.8); MPV 8.5 fL (7.6-11.3); RBC Red Blood Cell Count 4.53 M/uL (3.86-4.86)
[2020-12-17 05:08] LABS: Albumin 2.3 g/dL (3.4-5.0); Bilirubin Total 0.4 mg/dL (0.2-1.0); C-Reactive Protein 3.83 mg/L (<3.00); Magnesium 2.2 mg/dL (1.8-2.4); Potassium 3.8 mmol/L (3.5-5.1); Protein, Total 5.7 g/dL (6.4-8.2)
[2020-12-17] MEDS: LEVOTHYROXINE SOD 0.112 MG TAB PO SCH (06:05)
--- NOTE | 2020-12-17 06:25 | PN ---
Date of Progress Note: 12/16/2020 Subjective: The patient was seen this morning for followup. No new complaints or problems reported. She was lying in bed. As of early this morning around 4 o'clock, her oxygen saturation dropped down to 75% to 77% and she was on 4-5 L nasal cannula oxygen all day yesterday and during nighttime up until around 4 a.m. After this, oxygen saturation dropped down. She was given higher amount of oxygen and ultimately required to be on high-flow oxygen. She is maintaining adequate oxygenation on high-flow oxygen. Denies any complaints this morning when I saw her. Objective: Vital Signs: Reviewed. HEENT: Unremarkable. Lungs: Clear to auscultation. Heart: Heart sounds normal. Abdomen: Soft. Bowel sounds normal. No guarding, rigidity, tenderness, or distention. Extremities: No leg edema. Imaging: Chest x-ray done this morning reviewed showing left lower lobe infiltrate versus atelectasis. Impression: 1. COVID-19 infection. 2. COVID-19 pneumonia. 3. Acute respiratory failure with hypoxia. 4. Hypertension. 5. Hypothyroidism. Plan: We will go ahead and increase the dose of Solu-Medrol from 40 mg every 12 hours to 80 mg every 8 hours. Start patient's blood sugar monitoring with sliding scale insulin per order and I will see her tomorrow for followup. Continue current medications. Called her daughter and discussed details with her this morning. BO/MODL Voice ID: [id number] Report ID: [id number] MTDD
--- NOTE | 2020-12-17 07:21 | RAD REPORT ---
EXAM DESCRIPTION: RAD - Chest Single View - 12/17/2020 6:02 am CLINICAL HISTORY: covid COMPARISON: Chest Single View dated 12/16/2020; Chest Single View dated 12/15/2020; Chest Single View da sylvie 12/12/2020; Chest Single View dated 12/11/2020 FINDINGS: Lines: None. Lungs: Increased prominence of the pulmonary interstitium. Left lung base not well assessed due to ov erlying soft tissues. The right lung is clear of acute infiltrate. Pleural: No significant pleural effusions or pneumothorax. Cardiac: Cardiomegaly. Bones: No acute fractures. Other: IMPRESSION: Left lung base not well assessed due to overlapping soft tissues. Cannot exclude pneumon ia with or without effusion. Suspect some vascular congestion. The right lung is clear.
[2020-12-17] MEDS: INSULIN -REGULAR HUMAN 50 UNIT/0.5 ML ML SQ SCH ×4 (07:30→21:00)
[2020-12-17] MEDS: FAMOTIDINE 20 MG TAB PO SCH (08:32)
[2020-12-17] MEDS: PREGABALIN 50 MG CAP PO SCH (08:32)
[2020-12-17] MEDS: LOSARTAN POTASSIUM 50 MG TABLET PO SCH (08:32)
[2020-12-17] MEDS: BARICITINIB 2 MG TABLET PO SCH (08:33)
[2020-12-17] MEDS: DESVENLAFAXINE SUCCINATE 50 MG ER TAB PO SCH (08:33)
[2020-12-17] MEDS: CEFTRIAXONE/SWI 1gm 1 GM/10 ML SYR IV SCH (08:33)
[2020-12-17] MEDS: MEMANTINE HCL 10 MG TABLET PO SCH (08:33)
[2020-12-17] MEDS: FLUTICASONE 50MCG NASAL SPRAY NAS SCH ×2 (08:34→21:05)
[2020-12-17] MEDS: CLOTRIMAZOLE 1% CREAM 15 GM TOP SCH ×2 (08:34→21:04)
[2020-12-17] MEDS: APIXABAN 5 MG TABLET PO SCH ×2 (10:36→21:02)
[2020-12-17] MEDS: IBUPROFEN 600 MG TAB PO SCH ×2 (10:36→21:02)
--- NOTE | 2020-12-17 13:03 | P.PN ---
Subjective Date of Service: 12/17/20 Chief Complaint: Coronavirus pneumonia Patient is subjectively improving although her oxygen requirements have increased developed A. fib Review of Systems 10-point ROS is otherwise unremarkable Physical Examination - Vital Signs Temperature: 98.2 F Blood Pressure: 221/95 Pulse: 65 Respirations: 22 Pulse Ox (%): 91 - Physical Exam General: Alert, Oriented x3, Cooperative - Studies Microbiology Data (last 24 hrs): 12/11/20 07:55 Blood - Blood Aerobic Blood Culture - Final No growth in 5 days. 12/11/20 07:55 Blood - Blood Anaerobic Blood Culture - Final No growth in 5 days. Assessment & Plan - Problems (Diagnosis) (1) Pneumonia due to COVID-19 virus Current Visit: Yes Status: Acute Plan: Respiratory failure oxygen requirements have increased gree with higher dose of Solu-Medrol patient is also on Barcitinib chest x-ray shows some haziness on the left side chemistries reviewed I will order Lasix blood pressure still elevated normal echocardiogram
[2020-12-17] MEDS ORDERED: FUROSEMIDE 20 MG/ 2ML VIAL IV ONE (14:00)
[2020-12-17] MEDS: QUETIAPINE 100MG TAB PO SCH (21:01)
[2020-12-17] MEDS: PRAMIPEXOLE 0.25 MG TAB PO SCH (21:01)
[2020-12-17] MEDS: MIRTAZAPINE 15 MG TAB PO SCH (21:01)
[2020-12-18] MEDS: METHYLPREDNISOLONE 40 MG INJ IV SCH ×3 (00:24→17:31)
[2020-12-18] MEDS: LEVOTHYROXINE SOD 0.112 MG TAB PO SCH (05:29)
[2020-12-18] MEDS ORDERED: FUROSEMIDE 20 MG/ 2ML VIAL IV ONE (06:00)
[2020-12-18] MEDS: INSULIN -REGULAR HUMAN 50 UNIT/0.5 ML ML SQ SCH ×4 (07:30→21:00)
[2020-12-18] MEDS: LOSARTAN POTASSIUM 50 MG TABLET PO SCH (08:24)
[2020-12-18] MEDS: MEMANTINE HCL 10 MG TABLET PO SCH (08:25)
[2020-12-18] MEDS: FAMOTIDINE 20 MG TAB PO SCH (08:25)
[2020-12-18] MEDS: PREGABALIN 50 MG CAP PO SCH (08:25)
[2020-12-18] MEDS: BARICITINIB 2 MG TABLET PO SCH (08:25)
[2020-12-18] MEDS: DESVENLAFAXINE SUCCINATE 50 MG ER TAB PO SCH (08:26)
[2020-12-18] MEDS: DRISDOL (VITAMIN D=ERGOCALCIFEROL) 50000 UNIT CAP PO SCH (08:26)
[2020-12-18] MEDS: CEFTRIAXONE/SWI 1gm 1 GM/10 ML SYR IV SCH (08:27)
[2020-12-18] MEDS ORDERED: DIPHENHYDRAMINE 25 MG TAB/CAP ONE (08:29)
[2020-12-18] MEDS: FLUTICASONE 50MCG NASAL SPRAY NAS SCH ×2 (09:00→21:14)
[2020-12-18] MEDS: CLOTRIMAZOLE 1% CREAM 15 GM TOP SCH ×2 (09:00→21:13)
[2020-12-18] MEDS: IBUPROFEN 600 MG TAB PO SCH ×2 (09:00→21:11)
[2020-12-18] MEDS: APIXABAN 5 MG TABLET PO SCH ×2 (10:01→21:12)
--- NOTE | 2020-12-18 11:26 | PN ---
Date of Progress Note: 12/17/2020 Subjective: The patient was seen this morning for followup. She was lying in bed, not in distress, on high-flow nasal cannula oxygen and denies any complaints. Villalobos catheter was placed last night be cause the patient was getting short of breath with any attempt to even get up and was having really t rouble with shortness of breath, so she requested Villalobos catheter to be placed and I agree with that. No nausea, no vomiting. Objective: VITAL SIGNS: Reviewed. HEENT: Unremarkable. LUNGS: Clear to auscultation. HEART: Sounds normal. ABDOMEN: Soft. Bowel sounds normal. No guarding, rigidity, tenderness, distention. EXTREMITIES: No leg edema. Laboratory Data: White count 4.2, hemoglobin 11.9, platelets 169, sodium 139, potassium 3.8, chlorid e 105, bicarb 30, BUN 25, creatinine 1, glucose 176. Liver function tests unremarkable. CRP 3.8. Impression: 1.COVID-19 infection. 2.COVID-19 pneumonia. 3.Acute respiratory failure with hypoxia. 4.Paroxysmal atrial fibrillation. 5.Hypertension. 6.Hypothyroidism. Plan: We will go ahead and continue current anticoagulation therapy. Continue baricitinib IV steroi d and current oxygen replacement therapy. We will see her tomorrow for followup. BO/MODL Voice ID: [id number] Report ID: [id number]
--- NOTE | 2020-12-18 13:10 | PN ---
Date of Progress Note: 12/18/2020 Subjective: The patient was seen this morning for followup. No new complaints or problems reported by the patient. She was lying in bed, on high-flow nasal cannula oxygen, maintaining oxygen saturati on 92% when I was in room with her. She has a Villalobos catheter that is draining clear yellow urine. T he patient feels fine, but she does get short of breath with any activity including when sitting in t he bed. She feels like she gets short of breath. Objective: Vital Signs: Reviewed. HEENT: Examination unremarkable. Lungs: Clear to auscultation. Cardiac: Heart sounds normal. Abdomen: Soft. Bowel sounds normal. No guarding, rigidity, tenderness, or distention. Extremities: Extremity exam, no leg edema. Impression: 1.COVID-19 infection. 2.COVID-19 pneumonia. 3.Acute respiratory failure with hypoxia. 4.Hypertension. 5.Hypothyroidism. Plan: We will go ahead and continue current oxygen per high-flow nasal cannula. Continue current an ticoagulation therapy and baricitinib. We will continue to follow with Dr. Barnes, and continue cu rrent anticoagulation therapy and steroids. We will repeat blood work tomorrow and a chest x-ray. BO/MODL Voice ID: [id number] Report ID: [id number]
[2020-12-18] MEDS: ACETAMINOPHEN 325 MG TABLET PO PRN (15:07)
[2020-12-18] MEDS: PRAMIPEXOLE 0.25 MG TAB PO SCH (21:11)
[2020-12-18] MEDS: MIRTAZAPINE 15 MG TAB PO SCH (21:12)
[2020-12-18] MEDS: QUETIAPINE 100MG TAB PO SCH (21:12)
[2020-12-19] MEDS: METHYLPREDNISOLONE 40 MG INJ IV SCH ×3 (00:47→08:38)
[2020-12-19] MEDS: LEVOTHYROXINE SOD 0.112 MG TAB PO SCH (05:31)
[2020-12-19 06:17] LABS: Absolute Lymphocytes (CBC) 0.4 K/uL (0.7-4.9); Basophils % 0.2 % (0-1.3); Hematocrit 38.6 % (36.0-45.0); Lymphocytes % 6.2 % (15.3-44.8); MPV 8.8 fL (7.6-11.3); RBC Red Blood Cell Count 4.85 M/uL (3.86-4.86)
[2020-12-19] MEDS: DIPHENHYDRAMINE 25 MG TAB/CAP PO PRN (06:17)
[2020-12-19 06:36] LABS: ALT/SGPT 27 U/L (12-78); AST/SGOT 41 U/L (15-37); Albumin 2.4 g/dL (3.4-5.0); Alkaline Phosphatase 53 U/L (45-117); BUN Blood Urea Nitrogen 35 mg/dL (7-18); Bicarbonate 30 mmol/L (21-32); Bilirubin Total 0.6 mg/dL (0.2-1.0); C-Reactive Protein < 2.90 mg/L (<3.00); Glucose Level 167 mg/dL (74-106); Magnesium 2.2 mg/dL (1.8-2.4); Potassium 3.3 mmol/L (3.5-5.1); Protein, Total 5.7 g/dL (6.4-8.2); Sodium Level 143 mmol/L (136-145)
[2020-12-19 07:09] LABS: Blood Morphology Comment NOT SEEN (NOT SEEN); Platelet Estimate ADEQ; White Blood Cell Scan OK (OK)
[2020-12-19] MEDS: INSULIN -REGULAR HUMAN 50 UNIT/0.5 ML ML SQ SCH ×4 (07:30→21:00)
[2020-12-19] MEDS: DESVENLAFAXINE SUCCINATE 50 MG ER TAB PO SCH (08:37)
[2020-12-19] MEDS: FAMOTIDINE 20 MG TAB PO SCH (08:37)
[2020-12-19] MEDS: MEMANTINE HCL 10 MG TABLET PO SCH (08:37)
[2020-12-19] MEDS: CEFTRIAXONE/SWI 1gm 1 GM/10 ML SYR IV SCH (08:37)
[2020-12-19] MEDS: LOSARTAN POTASSIUM 50 MG TABLET PO SCH (08:38)
[2020-12-19] MEDS: APIXABAN 5 MG TABLET PO SCH ×2 (08:38→21:27)
[2020-12-19] MEDS: BARICITINIB 2 MG TABLET PO SCH (08:38)
[2020-12-19] MEDS: PREGABALIN 50 MG CAP PO SCH (08:38)
[2020-12-19] MEDS: CLOTRIMAZOLE 1% CREAM 15 GM TOP SCH ×2 (08:55→21:29)
[2020-12-19] MEDS: FLUTICASONE 50MCG NASAL SPRAY NAS SCH ×2 (08:57→21:29)
[2020-12-19] MEDS: IBUPROFEN 600 MG TAB PO SCH ×2 (09:00→21:28)
[2020-12-19] MEDS ORDERED: FUROSEMIDE 20 MG/ 2ML VIAL IV ONE (11:00)
--- NOTE | 2020-12-19 11:24 | RAD REPORT ---
EXAM DESCRIPTION: RAD - Chest Single View - 12/19/2020 10:07 am CLINICAL HISTORY: covid Chest pain. COMPARISON: Chest Single View dated 12/17/2020; Chest Single View dated 12/16/2020; Chest Single View d ated 12/15/2020; Chest Single View dated 12/12/2020 FINDINGS: Portable technique limits examination quality. Since 12/17/2020, little overall change is seen in bilateral interstitial lung opacities, greater on the left. The heart is mildly prominent in size. No displaced fractures. IMPRESSION: Stable chest since 12/17/2020.
[2020-12-19] MEDS ORDERED: POTASSIUM 25 MEQ EFFERV TAB PO ONE (17:56)
--- NOTE | 2020-12-19 18:27 | PN ---
Date of Progress Note: 12/19/2020 Subjective: The patient was seen this morning for followup. She was lying in bed, not in distress. She was on high-flow nasal cannula oxygen and the patient told me that she felt like she was not goi ng to survive this hospitalization. I did talk to her and counseled her and encouraged her that she should continue to go ahead and concentrate on day-to-day care, day-to-day treatment, and at this poi nt there is nothing that tells me that she will not survive this hospitalization and I did encourage her and talked to her in details and she seemed to understand that. She gets short of breath with an y attempts to even sit up in the bed or use a bedside commode. She has a Villalobos catheter in place for the last 2-3 days, and at this point, benefit of keeping Villalobos catheter is more than the risk, and w lay will continue to keep that catheter in at this time. Objective: Vital Signs: Reviewed. HEENT: Unremarkable. Lungs: Clear to auscultation. Heart: Heart sounds normal. Abdomen: Soft. Bowel sounds normal. No guarding, rigidity, tenderness, or distention. Extremities: No leg edema. Skin: No evidence of decubitus on the heels. Laboratory Data: Sodium 143, potassium 3.3, chloride 106, bicarb 30, BUN 35, creatinine 1.17, glucos e 167. Liver function tests unremarkable except AST 41. CRP less than 2.9. White count 7.1, hemogl obin 12.9, platelets 259. Chest x-ray, unchanged from yesterday. Impression: 1.COVID-19 infection. 2.COVID-19 pneumonia. 3.Acute respiratory failure with hypoxia. 4.Generalized weakness. 5.Depression. 6.Hypertension. 7.Hypokalemia. Plan: The patient received 1 dose of Lasix yesterday, 1 dose today, and we will go ahead and correct the potassium with potassium replacement protocol which was ordered. Keep the Villalobos catheter in maryuri ce at this time and I will see her tomorrow for followup. For her depression problem, we will go ahe ad and add sertraline 25 mg p.o. daily. Continue current antidepressant medication. I did call the patient's daughter and talked to her, and she expressed her concern about limitation on visitation by family members, and I explained her our concern considering the patient's COVID illness, we do not w ant different family members to come by and visit her and take chances of either catching infection t o themselves or taking it out to the community, and she understands that, but she informs me that the patient's granddaughter who is very close to her if she can visit the patient then emotionally that will be a good thing for the patient and psychologically she will get better support by having the pa jasmin's granddaughter visiting her. The patient's granddaughter works at the hospital on the [employer] on the rehab floor and I have advised her that the granddaughter should communicate with the xin ab floor and get clearance from the rehab floor to see if they would allow her to continue to visit C OVID patients in the hospital on a daily basis or not, and rehab floor allows her to do so, then will be fine with her granddaughter visiting the patient. Unfortunately, [facility] does not have any one policy for COVID patients and visitation rights by family members, and the decision is left up to ana palma on a [id number] basis. BO/MODL Voice ID: [id number] Report ID: [id number]
[2020-12-19] MEDS: MIRTAZAPINE 15 MG TAB PO SCH (21:00)
[2020-12-19] MEDS: LOPERAMIDE HCL 2 MG CAPSULE PO PRN (21:27)
[2020-12-19] MEDS: ACETAMINOPHEN 325 MG TABLET PO PRN (21:27)
[2020-12-19] MEDS: PRAMIPEXOLE 0.25 MG TAB PO SCH (21:28)
[2020-12-19] MEDS: QUETIAPINE 100MG TAB PO SCH (21:29)
[2020-12-20] MEDS: METHYLPREDNISOLONE 40 MG INJ IV SCH ×2 (00:23→09:33)
[2020-12-20] MEDS: FAMOTIDINE 20 MG TAB PO SCH (06:00)
[2020-12-20] MEDS: LEVOTHYROXINE SOD 0.112 MG TAB PO SCH (06:00)
[2020-12-20] MEDS: INSULIN -REGULAR HUMAN 50 UNIT/0.5 ML ML SQ SCH ×4 (07:30→21:00)
[2020-12-20] MEDS: NYSTATIN 100MU/GM CREAM 15GM TOP SCH ×2 (09:00→21:00)
[2020-12-20] MEDS ORDERED: POTASSIUM CL SA 10 MEQ TAB PO ONE (09:00)
[2020-12-20] MEDS: FLUTICASONE 50MCG NASAL SPRAY NAS SCH ×2 (09:00→20:37)
[2020-12-20] MEDS: CLOTRIMAZOLE 1% CREAM 15 GM TOP SCH ×2 (09:00→21:00)
[2020-12-20] MEDS: LOSARTAN POTASSIUM 50 MG TABLET PO SCH (09:33)
[2020-12-20] MEDS: BARICITINIB 2 MG TABLET PO SCH (09:33)
[2020-12-20] MEDS: CEFTRIAXONE/SWI 1gm 1 GM/10 ML SYR IV SCH (09:33)
[2020-12-20] MEDS: SERTRALINE HCL 50 MG TAB PO SCH (09:33)
[2020-12-20] MEDS: FAMOTIDINE 20 MG/2 ML VIAL IV SCH ×3 (09:33→20:36)
[2020-12-20] MEDS: DESVENLAFAXINE SUCCINATE 50 MG ER TAB PO SCH (09:34)
[2020-12-20] MEDS: MEMANTINE HCL 10 MG TABLET PO SCH (09:34)
[2020-12-20] MEDS: IBUPROFEN 600 MG TAB PO SCH ×2 (09:34→20:42)
[2020-12-20] MEDS: PREGABALIN 50 MG CAP PO SCH (09:34)
[2020-12-20] MEDS: APIXABAN 5 MG TABLET PO SCH ×2 (09:34→20:36)
[2020-12-20] MEDS: LOPERAMIDE HCL 2 MG CAPSULE PO PRN ×2 (09:39→18:10)
[2020-12-20 11:52] LABS: Potassium 3.5 mmol/L (3.5-5.1)
[2020-12-20] MEDS ORDERED: KCL 20 MEQ/100 mL IVPB 20 MEQ/100 ML BAG IV SCH (18:00)
[2020-12-20] MEDS: METHYLPREDNISOLONE 125 MG INJ IV SCH ×2 (18:01→20:37)
[2020-12-20] MEDS ORDERED: NA CHLORIDE 0.9% 1,000 ML ONE (18:54)
[2020-12-20] MEDS: BENZONATATE 100 MG CAP PO PRN (20:36)
[2020-12-20] MEDS: QUETIAPINE 100MG TAB PO SCH (20:36)
[2020-12-20] MEDS: PRAMIPEXOLE 0.25 MG TAB PO SCH (20:36)
[2020-12-20] MEDS: MIRTAZAPINE 15 MG TAB PO SCH (20:36)
[2020-12-21] MEDS: LEVOTHYROXINE SOD 0.112 MG TAB PO SCH (05:20)
[2020-12-21] MEDS: PREGABALIN 50 MG CAP PO SCH (08:16)
[2020-12-21] MEDS: LOSARTAN POTASSIUM 50 MG TABLET PO SCH (08:16)
[2020-12-21] MEDS: APIXABAN 5 MG TABLET PO SCH ×2 (08:16→20:08)
[2020-12-21] MEDS: METHYLPREDNISOLONE 125 MG INJ IV SCH ×2 (08:17→16:27)
[2020-12-21] MEDS: FAMOTIDINE 20 MG/2 ML VIAL IV SCH ×2 (08:17→20:09)
[2020-12-21] MEDS: SERTRALINE HCL 50 MG TAB PO SCH (08:18)
[2020-12-21] MEDS: BARICITINIB 2 MG TABLET PO SCH (08:18)
[2020-12-21] MEDS: DESVENLAFAXINE SUCCINATE 50 MG ER TAB PO SCH (08:18)
[2020-12-21] MEDS: CEFTRIAXONE/SWI 1gm 1 GM/10 ML SYR IV SCH (08:18)
[2020-12-21] MEDS: INSULIN -REGULAR HUMAN 50 UNIT/0.5 ML ML SQ SCH ×4 (08:19→20:25)
[2020-12-21] MEDS: CLOTRIMAZOLE 1% CREAM 15 GM TOP SCH ×2 (09:37→20:26)
[2020-12-21] MEDS: FLUTICASONE 50MCG NASAL SPRAY NAS SCH ×2 (09:38→20:09)
[2020-12-21] MEDS: ACETAMINOPHEN 325 MG TABLET PO PRN ×2 (10:22→16:27)
[2020-12-21] MEDS: IBUPROFEN 600 MG TAB PO SCH ×2 (11:49→20:08)
[2020-12-21] MEDS: NYSTATIN 100MU/GM CREAM 15GM TOP SCH ×2 (13:16→20:09)
--- NOTE | 2020-12-21 18:10 | PN ---
Date of Progress Note: 12/20/2020 Subjective: The patient was seen for followup this morning. No new complaints or problems reported. She was lying in bed, on high-flow nasal cannula oxygen, maintaining adequate oxygenation. The pat ient is complaining of a lot of trouble with heartburn, indigestion problem that started last night. She is requesting something for that. Objective: Vital Signs: Reviewed. HEENT: Unremarkable. Lungs: Clear to auscultation. Heart: Sounds normal. Abdomen: Soft. Bowel sounds normal. No guarding, rigidity, tenderness, or distention. Extremities: No leg edema. Impression: 1.COVID-19 infection. 2.COVID-19 pneumonia. 3.Acute respiratory failure with hypoxia. 4.Gastroesophageal reflux disease. 5.Candidal rash, groin. Plan: The patient is complaining of some rash in her groin area and is requesting some medication be cause of this yeast infection and we will start her on topical nystatin cream. For acid reflux, we w ill start her on famotidine 20 mg IV 2 times a day. We will continue her other current medications i ncluding her steroid, oxygen replacement therapy, and current anticoagulation therapy. I will see he r tomorrow for followup. BO/MODL Voice ID: [id number] Report ID: [id number]
--- NOTE | 2020-12-21 18:16 | PN ---
Date of Progress Note: 12/21/2020 Subjective: The patient was seen this morning for followup. No new complaints or problems reported by her. She was lying in bed, on high-flow nasal cannula oxygen at 20 L/minute. Yesterday, she was at 30 L/minute. During the entire time when I was in room with her while she was communicating, she did not drop her oxygen saturation and she maintained oxygen saturation between 92% to 94% during the entire time I was in the room with her. Overall, she feels better. No other new complaints reporte d by her. Objective: Vital Signs: Reviewed. HEENT: Unremarkable. Lungs: Clear to auscultation. Heart: Sounds normal. Abdomen: Soft. Bowel sounds normal. No guarding, rigidity, tenderness, or distention. Extremities: No leg edema. Impression: 1.COVID-19 infection. 2.COVID-19 pneumonia. 3.Acute respiratory failure with hypoxia. 4.Gastroesophageal reflux disease. 5.Hypertension. Plan: We will go ahead and continue current medications. We will remove Villalobos catheter as the patie nt is getting in and out of bed and using bedside commode. Since she is able to do that, we will go ahead and remove the Villalobos catheter and I did inform her. Continue other current medications and I will see her tomorrow for followup. We will repeat chest x-ray tomorrow al mini with other blood work. BO/MODL Voice ID: [id number] Report ID: [id number]
[2020-12-21] MEDS: MIRTAZAPINE 15 MG TAB PO SCH (20:08)
[2020-12-21] MEDS: QUETIAPINE 100MG TAB PO SCH (20:08)
[2020-12-21] MEDS: PRAMIPEXOLE 0.25 MG TAB PO SCH (20:08)
[2020-12-21] MEDS: BENZONATATE 100 MG CAP PO PRN (20:08)
[2020-12-22] MEDS: METHYLPREDNISOLONE 125 MG INJ IV SCH ×3 (00:08→16:50)
[2020-12-22] MEDS: LEVOTHYROXINE SOD 0.112 MG TAB PO SCH (05:29)
[2020-12-22] MEDS: BARICITINIB 2 MG TABLET PO SCH (08:19)
[2020-12-22] MEDS: LOSARTAN POTASSIUM 50 MG TABLET PO SCH (08:19)
[2020-12-22] MEDS: DESVENLAFAXINE SUCCINATE 50 MG ER TAB PO SCH (08:20)
[2020-12-22] MEDS: CEFTRIAXONE/SWI 1gm 1 GM/10 ML SYR IV SCH (08:20)
[2020-12-22] MEDS: MEMANTINE HCL 10 MG TABLET PO SCH (08:21)
[2020-12-22] MEDS: FAMOTIDINE 20 MG/2 ML VIAL IV SCH ×2 (08:21→20:38)
[2020-12-22] MEDS: PREGABALIN 50 MG CAP PO SCH (08:21)
[2020-12-22] MEDS: SERTRALINE HCL 50 MG TAB PO SCH (08:21)
[2020-12-22] MEDS: APIXABAN 5 MG TABLET PO SCH ×2 (08:21→20:38)
[2020-12-22] MEDS: INSULIN -REGULAR HUMAN 50 UNIT/0.5 ML ML SQ SCH ×4 (08:22→20:59)
[2020-12-22] MEDS: FLUTICASONE 50MCG NASAL SPRAY NAS SCH ×2 (08:31→20:37)
[2020-12-22] MEDS: CLOTRIMAZOLE 1% CREAM 15 GM TOP SCH ×2 (08:31→20:37)
[2020-12-22] MEDS: NYSTATIN 100MU/GM CREAM 15GM TOP SCH ×2 (08:32→20:38)
[2020-12-22] MEDS: IBUPROFEN 600 MG TAB PO SCH ×2 (09:00→20:39)
--- NOTE | 2020-12-22 10:04 | RAD REPORT ---
EXAM DESCRIPTION: RAD - Chest Single View - 12/22/2020 9:52 am CLINICAL HISTORY: COVID COMPARISON: Chest Single View dated 12/19/2020; Chest Single View dated 12/17/2020; Chest Single View dated 12/16/2020; Chest Single View dated 12/15/2020 FINDINGS: Lines: None. Lungs: Airspace disease in left mid lung and left lung base is similar to prior. Pleural: Difficult to exclude a small left pleural effusion . Cardiac: Cardiomegaly Bones: No acute fractures. Other: IMPRESSION: Similar airspace disease at the left lung base possibly representing pneumonia.
[2020-12-22] MEDS: LOPERAMIDE HCL 2 MG CAPSULE PO PRN ×3 (10:38→21:03)
[2020-12-22] MEDS: BENZONATATE 100 MG CAP PO PRN (20:37)
[2020-12-22] MEDS: MIRTAZAPINE 15 MG TAB PO SCH (20:37)
[2020-12-22] MEDS: QUETIAPINE 100MG TAB PO SCH (20:38)
[2020-12-22] MEDS: PRAMIPEXOLE 0.25 MG TAB PO SCH (20:38)
[2020-12-23] MEDS: METHYLPREDNISOLONE 125 MG INJ IV SCH ×3 (00:39→16:30)
[2020-12-23] MEDS: LEVOTHYROXINE SOD 0.112 MG TAB PO SCH (05:12)
[2020-12-23 05:47] LABS: Absolute Lymphocytes (CBC) 0.6 K/uL (0.7-4.9); Hematocrit 35.9 % (36.0-45.0); Lymphocytes % 7.2 % (15.3-44.8); MPV 9.1 fL (7.6-11.3); RBC Red Blood Cell Count 4.47 M/uL (3.86-4.86)
[2020-12-23 06:01] LABS: Albumin 2.4 g/dL (3.4-5.0); Bilirubin Total 0.5 mg/dL (0.2-1.0); C-Reactive Protein 4.07 mg/L (<3.00); Magnesium 2.7 mg/dL (1.8-2.4); Potassium 4.1 mmol/L (3.5-5.1); Protein, Total 5.7 g/dL (6.4-8.2)
--- NOTE | 2020-12-23 06:49 | PN ---
Date of Progress Note: 12/22/2020 Subjective: The patient was seen this morning for followup. No new complaints or problems reported by patient. She was lying in bed, not in distress, on high-flow nasal cannula oxygen, maintaining ox ygen saturation around 91% to 92% while I was in room with her. Villalobos catheter was left in place as per my discussion with the nursing staff. She informed me that yes, even though patient uses bedside commode, every time she gets up to have a bowel movement on the bedside commode, she does drop her o xygen saturation significantly low, but then she recovers, so we will leave the Villalobos catheter in at this point. Objective: Vital Signs: Reviewed. HEENT: Unremarkable. Lungs: Clear to auscultation. Heart: Heart sounds normal. Abdomen: Soft, bowel sounds normal. No guarding, rigidity, tenderness, or distention. Extremities: No leg edema. Laboratory Data: Chest x-ray done today remains unchanged from previous x-ray. Impression: 1.COVID-19 infection. 2.COVID-19 pneumonia. 3.Acute respiratory failure with hypoxia. 4.Hypertension. 5.Hypothyroidism. Plan: We will continue current medication. Continue current steroid, antihypertensive medication, o xygen and anticoagulation therapy. We will see her tomorrow for followup. BO/MODL Voice ID: [id number] Report ID: [id number]
[2020-12-23] MEDS: INSULIN -REGULAR HUMAN 50 UNIT/0.5 ML ML SQ SCH ×4 (07:30→20:49)
[2020-12-23] MEDS: SERTRALINE HCL 50 MG TAB PO SCH (08:15)
[2020-12-23] MEDS: PREGABALIN 50 MG CAP PO SCH (08:16)
[2020-12-23] MEDS: LOPERAMIDE HCL 2 MG CAPSULE PO PRN (08:17)
[2020-12-23] MEDS: CEFTRIAXONE/SWI 1gm 1 GM/10 ML SYR IV SCH (08:17)
[2020-12-23] MEDS: MEMANTINE HCL 10 MG TABLET PO SCH (08:22)
[2020-12-23] MEDS: BARICITINIB 2 MG TABLET PO SCH (08:22)
[2020-12-23] MEDS: APIXABAN 5 MG TABLET PO SCH ×2 (08:23→19:44)
[2020-12-23] MEDS: LOSARTAN POTASSIUM 50 MG TABLET PO SCH (08:23)
[2020-12-23] MEDS: IBUPROFEN 600 MG TAB PO SCH ×2 (08:23→19:43)
[2020-12-23] MEDS: DESVENLAFAXINE SUCCINATE 50 MG ER TAB PO SCH (08:24)
[2020-12-23] MEDS: FAMOTIDINE 20 MG/2 ML VIAL IV SCH ×2 (08:24→19:49)
[2020-12-23] MEDS: NYSTATIN 100MU/GM CREAM 15GM TOP SCH ×2 (09:00→19:47)
[2020-12-23] MEDS: CLOTRIMAZOLE 1% CREAM 15 GM TOP SCH ×2 (09:00→19:47)
[2020-12-23] MEDS: FLUTICASONE 50MCG NASAL SPRAY NAS SCH ×2 (09:00→19:47)
[2020-12-23 09:11] LABS: Blood Morphology Comment NOT SEEN (NOT SEEN); Platelet Estimate ADEQ; White Blood Cell Scan OK (OK)
[2020-12-23] MEDS: FLUCONAZOLE 100 MG TAB PO SCH (09:51)
[2020-12-23 15:03] LABS: Arterial Blood Carboxyhemoglob 0.6 % (0-1.5); Blood Gas Oxyhemoglobin 87.7 % (94-97); Blood O2 Saturation 89.1 % (92-98.5)
[2020-12-23] MEDS: QUETIAPINE 100MG TAB PO SCH (19:43)
[2020-12-23] MEDS: MIRTAZAPINE 15 MG TAB PO SCH (19:44)
[2020-12-23] MEDS: DIPHENHYDRAMINE 25 MG TAB/CAP PO PRN (19:44)
[2020-12-23] MEDS: PRAMIPEXOLE 0.25 MG TAB PO SCH (19:44)
[2020-12-23] MEDS: BENZONATATE 100 MG CAP PO PRN (19:48)
[2020-12-24] MEDS: METHYLPREDNISOLONE 125 MG INJ IV SCH ×3 (00:53→20:50)
[2020-12-24] MEDS: LEVOTHYROXINE SOD 0.112 MG TAB PO SCH (05:05)
--- NOTE | 2020-12-24 05:54 | PN ---
Date of Progress Note: 12/23/2020 Subjective: The patient was seen this morning for followup. No new complaints or problems reported. She was lying in bed, not in any distress. Remains on high-flow nasal cannula oxygen, maintaining good oxygenation. When I entered her room, her oxygen saturation was 92% and remained there except b riefly it dropped down to 89% while she was talking to me, lasted only for about 2 seconds and then i t went back up to 92%. Her diarrhea has improved. She still has loose bowel movement, but overall i t is better. Objective: Vital Signs: Reviewed. HEENT: Unremarkable, except for presence of oral thrush. Lungs: Clear to auscultation. Cardiovascular: Heart sounds normal. ABDOMEN: Soft. Bowel sounds normal. No guarding, rigidity, tenderness, or distention. Extremities: No leg edema Laboratory Data: White count 8.1, hemoglobin 11.9, platelets 246. Sodium 142, potassium 4.1, chlori de 106, bicarb 31, BUN 33, creatinine 1.13, glucose 160, CRP 4.07. Liver function tests unremarkable . Impression: 1.Oral candidiasis, probable esophageal candidiasis. 2.COVID-19 infection. 3.COVID-19 pneumonia. 4.Acute respiratory failure with hypoxia. 5.Hypertension. Plan: The patient was complaining of soreness in her mouth and also pain at the time of swallowing f ood or liquids. Her mouth shows extensive oral candidiasis and I suspect that she probably has esoph ageal candidiasis also and we will start her on fluconazole. The patient remains on oral steroid. W e will continue that. Continue current high-flow oxygen. Continue to keep the Villalobos catheter in maryuri ce because of significant hypoxia that happens when she tries to get out of the bed. Once that condi tion improves, then we will be able to remove the Villalobos catheter. I will see her tomorrow for followup. BO/MODL Voice ID: [id number] Report ID: [id number]
[2020-12-24] MEDS: INSULIN -REGULAR HUMAN 50 UNIT/0.5 ML ML SQ SCH ×4 (07:30→20:53)
[2020-12-24] MEDS: DESVENLAFAXINE SUCCINATE 50 MG ER TAB PO SCH (08:53)
[2020-12-24] MEDS: MEMANTINE HCL 10 MG TABLET PO SCH (08:54)
[2020-12-24] MEDS: SERTRALINE HCL 50 MG TAB PO SCH (08:54)
[2020-12-24] MEDS: LOSARTAN POTASSIUM 50 MG TABLET PO SCH (08:54)
[2020-12-24] MEDS: PREGABALIN 50 MG CAP PO SCH (08:55)
[2020-12-24] MEDS: FAMOTIDINE 20 MG/2 ML VIAL IV SCH ×2 (08:55→20:51)
[2020-12-24] MEDS: FLUCONAZOLE 100 MG TAB PO SCH (08:55)
[2020-12-24] MEDS: APIXABAN 5 MG TABLET PO SCH ×2 (08:55→20:52)
[2020-12-24] MEDS: FLUTICASONE 50MCG NASAL SPRAY NAS SCH ×2 (08:55→20:52)
[2020-12-24] MEDS: NYSTATIN 100MU/GM CREAM 15GM TOP SCH ×2 (08:56→20:52)
[2020-12-24] MEDS: IBUPROFEN 600 MG TAB PO SCH ×2 (08:56→20:51)
[2020-12-24] MEDS: CLOTRIMAZOLE 1% CREAM 15 GM TOP SCH ×2 (08:56→20:52)
[2020-12-24] MEDS: BARICITINIB 2 MG TABLET PO SCH (08:57)
[2020-12-24] MEDS: LOPERAMIDE HCL 2 MG CAPSULE PO PRN (09:15)
--- NOTE | 2020-12-24 12:11 | P.PN ---
Subjective Date of Service: 12/24/20 Chief Complaint: Coronavirus pneumonia No new complaints patient's oxygen requirements are declining Review of Systems Respiratory: Shortness of Breath Physical Examination - Vital Signs Temperature: 97.1 F Blood Pressure: 123/67 Pulse: 76 Respirations: 23 Pulse Ox (%): 93 - Physical Exam General: Oriented x2, Cooperative Assessment & Plan - Problems (Diagnosis) (1) Pneumonia due to COVID-19 virus Current Visit: Yes Status: Acute Plan: Patient's oxygen requirements are declining to Solu-Medrol to 80 mg twice a day on maximum therapy Barcitinib repeat chest x-ray ordered
--- NOTE | 2020-12-24 15:32 | RAD REPORT ---
EXAM DESCRIPTION: Simone Single View12/24/2020 3:16 pm CLINICAL HISTORY: Respiratory failure COMPARISON: December 22, 2020 FINDINGS: Improvement in left lung opacities. No significant change in minimal right lung opacities. Heart is borderline enlarged. IMPRESSION: Improvement in left and no significant change in minimal right lung opacities probably p neumonia
[2020-12-24] MEDS: QUETIAPINE 100MG TAB PO SCH (20:51)
[2020-12-24] MEDS: PRAMIPEXOLE 0.25 MG TAB PO SCH (20:51)
[2020-12-24] MEDS: BENZONATATE 100 MG CAP PO PRN (20:51)
[2020-12-24] MEDS: ENSURE HIGH PROTEIN 237 ML CAN PO SCH (20:51)
[2020-12-24] MEDS: MIRTAZAPINE 15 MG TAB PO SCH (20:52)
[2020-12-24] MEDS: DIPHENHYDRAMINE 25 MG TAB/CAP PO PRN (20:58)
[2020-12-24] MEDS ORDERED: CEPACOL LOZENGES PO PRN (21:40)
--- NOTE | 2020-12-24 22:20 | PN ---
Date of Progress Note: 12/24/2020 Subjective: The patient was seen this morning for followup. She was lying in bed, not in distress. Her oxygen saturation was marked in the room was 92% to 93%. While I was talking to her mostly juliette ined around 90% to 92%, but before I left she did drop down to 86% and started to recover. The patie nt overall feels better. No new complaints, problems reported by her. Objective: Vital Signs: Reviewed. HEENT: Unremarkable. Lungs: Clear to auscultation. Heart: Sounds normal. Abdomen: Soft. Bowel sounds normal. No guarding, rigidity, tenderness, distention. Extremities: No leg edema. Laboratory Data: Chest x-ray today shows improvement in left lung opacity and no change in right vikki g opacity. Impression: 1.COVID-19 infection. 2.COVID-19 pneumonia. 3.Acute respiratory failure with hypoxia. 4.Hypertension. 5.Hypothyroidism. Plan: We will go ahead and continue current medication. We will continue current antihypertensive m edication and thyroid medication. Continue steroid. Continue fluconazole for her oral candidiasis a nd possible esophageal candidiasis. We will continue her apixaban. She continues to receive baricit inib per Dr. Barnes and we will continue that as well. Dr. Barnes has reduced her Solu-Medrol do se today to 80 mg every 12 hours. I will see her tomorrow for followup and we will go ahead and repeat blood wor k tomorrow morning. BO/MODL Voice ID: [id number] Report ID: [id number]
[2020-12-25] MEDS: LEVOTHYROXINE SOD 0.112 MG TAB PO SCH (05:05)
[2020-12-25 06:05] LABS: Absolute Lymphocytes (CBC) 0.5 K/uL (0.7-4.9); Basophils % 0.1 % (0-1.3); Hematocrit 33.9 % (36.0-45.0); Lymphocytes % 10.2 % (15.3-44.8); MPV 9.2 fL (7.6-11.3)
[2020-12-25 06:24] LABS: ALT/SGPT 41 U/L (12-78); AST/SGOT 36 U/L (15-37); Albumin 2.3 g/dL (3.4-5.0); Alkaline Phosphatase 47 U/L (45-117); BUN Blood Urea Nitrogen 36 mg/dL (7-18); Bicarbonate 28 mmol/L (21-32); Bilirubin Total 0.4 mg/dL (0.2-1.0); Glucose Level 190 mg/dL (74-106); Magnesium 2.5 mg/dL (1.8-2.4); Potassium 4.2 mmol/L (3.5-5.1); Protein, Total 5.1 g/dL (6.4-8.2); Sodium Level 142 mmol/L (136-145)
[2020-12-25 06:29] LABS: C-Reactive Protein < 2.90 mg/L (<3.00)
[2020-12-25] MEDS: INSULIN -REGULAR HUMAN 50 UNIT/0.5 ML ML SQ SCH ×4 (07:30→20:55)
--- NOTE | 2020-12-25 08:57 | RAD REPORT ---
EXAM DESCRIPTION: RAD - Chest Single View - 12/25/2020 6:58 am CLINICAL HISTORY: covidpneumonia COMPARISON: December 24 TECHNIQUE: AP portable chest image was obtained 12/25/2020 6:58 am . FINDINGS: Mid and lower left lung field airspace opacification not clearly different from comparison . No new or progressive right lung field lower left upper lobe findings. Enlarged cardiac silhouette noted and stable. Heart size is distorted by significant rotation. No me asurable pleural effusion and no pneumothorax. IMPRESSION: Stable portable chest as detailed.
[2020-12-25] MEDS: ENSURE HIGH PROTEIN 237 ML CAN PO SCH ×2 (09:00→20:12)
[2020-12-25] MEDS: IBUPROFEN 600 MG TAB PO SCH ×2 (09:00→20:10)
[2020-12-25] MEDS: DRISDOL (VITAMIN D=ERGOCALCIFEROL) 50000 UNIT CAP PO SCH (09:17)
[2020-12-25] MEDS: APIXABAN 5 MG TABLET PO SCH ×2 (09:17→20:08)
[2020-12-25] MEDS: FAMOTIDINE 20 MG/2 ML VIAL IV SCH ×2 (09:17→20:08)
[2020-12-25] MEDS: FLUCONAZOLE 100 MG TAB PO SCH (09:17)
[2020-12-25] MEDS: BARICITINIB 2 MG TABLET PO SCH (09:17)
[2020-12-25] MEDS: DESVENLAFAXINE SUCCINATE 50 MG ER TAB PO SCH (09:17)
[2020-12-25] MEDS: MEMANTINE HCL 10 MG TABLET PO SCH (09:18)
[2020-12-25] MEDS: LOPERAMIDE HCL 2 MG CAPSULE PO PRN (09:18)
[2020-12-25] MEDS: LOSARTAN POTASSIUM 50 MG TABLET PO SCH (09:18)
[2020-12-25] MEDS: PREGABALIN 50 MG CAP PO SCH (09:18)
[2020-12-25] MEDS: SERTRALINE HCL 50 MG TAB PO SCH (09:18)
[2020-12-25] MEDS: FLUTICASONE 50MCG NASAL SPRAY NAS SCH ×2 (09:20→20:12)
[2020-12-25] MEDS: CLOTRIMAZOLE 1% CREAM 15 GM TOP SCH ×2 (09:20→20:13)
[2020-12-25] MEDS: NYSTATIN 100MU/GM CREAM 15GM TOP SCH ×2 (09:20→20:10)
[2020-12-25] MEDS: METHYLPREDNISOLONE 125 MG INJ IV SCH ×2 (09:21→20:08)
[2020-12-25] MEDS: ACETAMINOPHEN 325 MG TABLET PO PRN (11:49)
--- NOTE | 2020-12-25 13:06 | PN ---
Date of Progress Note: 12/25/2020 Subjective: The patient was seen this morning for followup. She was feeling better. Denied any com plaints. Diarrhea is improving and she is requiring less oxygen per nasal cannula compared to before . When I walked into her room, her oxygen saturation was 95%, and throughout the time when I was the re in the room communicating and while she was talking to me, her lowest oxygen saturation today was 91%. Objective: Vital Signs: Reviewed. HEENT: Examination unremarkable. Lungs: Clear to auscultation. Heart: Sounds normal. Abdomen: Soft. Bowel sounds normal. No guarding, rigidity, tenderness, or distention. Extremities: No leg edema. Laboratory Data: White count 5.2, hemoglobin 11.1, platelets 210. Sodium 142, potassium 4.2, chlori de 108, bicarb 28, BUN 36, creatinine 1, glucose 190. Liver function tests unremarkable. CRP less t hill 2.9. Albumin 2.3. Impression: 1.COVID-19 infection. 2.COVID-19 pneumonia. 3.Acute respiratory failure with hypoxia. 4.Malnutrition. 5.Anemia, unspecified. 6.Hypertension. 7.Hypothyroidism. Plan: We will continue current medication. Continue current steroid, baricitinib, and current oxyge n replacement therapy. Continue current antihypertensive medication and anticoagulation therapy and the patient to work with physical therapy. I will see her tomorrow for followup. BO/MODL Voice ID: [id number] Report ID: [id number]
[2020-12-25] MEDS: DIPHENHYDRAMINE 25 MG TAB/CAP PO PRN (20:08)
[2020-12-25] MEDS: QUETIAPINE 100MG TAB PO SCH (20:08)
[2020-12-25] MEDS: BENZONATATE 100 MG CAP PO PRN (20:08)
[2020-12-25] MEDS: MIRTAZAPINE 15 MG TAB PO SCH (20:08)
[2020-12-25] MEDS: PRAMIPEXOLE 0.25 MG TAB PO SCH (20:09)
[2020-12-26] MEDS: LEVOTHYROXINE SOD 0.112 MG TAB PO SCH (05:30)
[2020-12-26] MEDS: INSULIN -REGULAR HUMAN 50 UNIT/0.5 ML ML SQ SCH ×4 (07:30→21:25)
[2020-12-26] MEDS: DESVENLAFAXINE SUCCINATE 50 MG ER TAB PO SCH (08:32)
[2020-12-26] MEDS: METHYLPREDNISOLONE 125 MG INJ IV SCH ×2 (08:32→21:22)
[2020-12-26] MEDS: BARICITINIB 2 MG TABLET PO SCH (08:33)
[2020-12-26] MEDS: FAMOTIDINE 20 MG/2 ML VIAL IV SCH ×2 (08:33→21:00)
[2020-12-26] MEDS: MEMANTINE HCL 10 MG TABLET PO SCH (08:33)
[2020-12-26] MEDS: LOSARTAN POTASSIUM 50 MG TABLET PO SCH (08:33)
[2020-12-26] MEDS: SERTRALINE HCL 50 MG TAB PO SCH (08:33)
[2020-12-26] MEDS: PREGABALIN 50 MG CAP PO SCH (08:33)
[2020-12-26] MEDS: APIXABAN 5 MG TABLET PO SCH ×2 (08:33→21:22)
[2020-12-26] MEDS: NYSTATIN 100MU/GM CREAM 15GM TOP SCH ×2 (08:34→21:00)
[2020-12-26] MEDS: FLUTICASONE 50MCG NASAL SPRAY NAS SCH ×2 (08:34→21:00)
[2020-12-26] MEDS: ENSURE HIGH PROTEIN 237 ML CAN PO SCH ×2 (08:35→21:00)
[2020-12-26] MEDS: CLOTRIMAZOLE 1% CREAM 15 GM TOP SCH ×2 (08:35→21:00)
[2020-12-26] MEDS: IBUPROFEN 600 MG TAB PO SCH ×2 (08:39→21:00)
[2020-12-26] MEDS: FLUCONAZOLE 100 MG TAB PO SCH (08:39)
--- NOTE | 2020-12-26 10:01 | PN ---
Date of Progress Note: 12/26/2020 Subjective: The patient was seen this morning for followup. No new complaints or problems reported by patient, lying in bed, not in distress. She is using much less oxygen. She is down to nasal aliya fidelina oxygen 2 L/minute, feeling much better. When I walked into her room, her oxygen saturation was 9 4% and throughout the time while I was in the room, the lowest oxygen saturation was 91%. She is fee ling much better. She is able to get in and out of bed to use the bedside commode much better than luciano natalio and her shortness of breath with that activity is also much less compared to before as she repo rts. Objective: Vital signs: Reviewed. HEENT: Examination unremarkable. Lungs: Clear to auscultation. Heart: Sounds normal. Abdomen: Soft. Bowel sounds normal. No guarding, rigidity, tenderness, or distention. Extremities: No leg edema. Impression: 1.COVID-19 infection. 2.COVID-19 pneumonia. 3.Acute respiratory failure with hypoxia. 4.Hypertension. 5.Hypothyroidism. Plan: We will continue current medication. Continue current oxygen therapy, current steroids, antif ungal medication fluconazole per order. I will see her tomorrow for followup. Possible discharge to go home in next day or 2 days and details were discussed with the patient. We will remove Griselda moreno today. BO/MODL Voice ID: [id number] Report ID: [id number]
[2020-12-26] MEDS: LOPERAMIDE HCL 2 MG CAPSULE PO PRN (13:55)
[2020-12-26] MEDS: MIRTAZAPINE 15 MG TAB PO SCH (21:22)
[2020-12-26] MEDS: QUETIAPINE 100MG TAB PO SCH (21:22)
[2020-12-26] MEDS: DIPHENHYDRAMINE 25 MG TAB/CAP PO PRN (21:53)
[2020-12-26] MEDS: PRAMIPEXOLE 0.25 MG TAB PO SCH (21:53)
[2020-12-26] MEDS ORDERED: DIGOXIN 0.25 MG/ML AMP IV STA (22:13)
[2020-12-27] MEDS ORDERED: METOPROLOL XL 50 MG TAB PO ONE (02:01)
[2020-12-27] MEDS: DIGOXIN 0.25 MG/ML AMP IV SCH (04:32)
[2020-12-27] MEDS: LEVOTHYROXINE SOD 0.112 MG TAB PO SCH (05:37)
[2020-12-27] MEDS: INSULIN -REGULAR HUMAN 50 UNIT/0.5 ML ML SQ SCH ×4 (07:30→20:08)
[2020-12-27 07:47] LABS: Absolute Lymphocytes (CBC) 0.4 K/uL (0.7-4.9); Basophils % 0.2 % (0-1.3); Hematocrit 35.2 % (36.0-45.0); Lymphocytes % 7.7 % (15.3-44.8); MPV 8.9 fL (7.6-11.3)
[2020-12-27 08:04] LABS: BUN Blood Urea Nitrogen 37 mg/dL (7-18); Bicarbonate 28 mmol/L (21-32); Glucose Level 200 mg/dL (74-106); Sodium Level 144 mmol/L (136-145)
[2020-12-27 08:05] LABS: C-Reactive Protein < 2.90 mg/L (<3.00); Magnesium 2.5 mg/dL (1.8-2.4); Potassium 4.3 mmol/L (3.5-5.1)
[2020-12-27] MEDS: SERTRALINE HCL 50 MG TAB PO SCH (08:40)
[2020-12-27] MEDS: FLUCONAZOLE 100 MG TAB PO SCH (08:40)
[2020-12-27] MEDS: LOSARTAN POTASSIUM 50 MG TABLET PO SCH (08:40)
[2020-12-27] MEDS: METOPROLOL TAR 25 MG TAB PO SCH ×2 (08:41→20:07)
[2020-12-27] MEDS: MEMANTINE HCL 10 MG TABLET PO SCH (08:41)
[2020-12-27] MEDS: APIXABAN 5 MG TABLET PO SCH ×2 (08:41→20:07)
[2020-12-27] MEDS: DESVENLAFAXINE SUCCINATE 50 MG ER TAB PO SCH (08:41)
[2020-12-27] MEDS: PREGABALIN 50 MG CAP PO SCH (08:41)
[2020-12-27] MEDS: IBUPROFEN 600 MG TAB PO SCH ×2 (08:41→20:09)
[2020-12-27] MEDS: METHYLPREDNISOLONE 125 MG INJ IV SCH ×2 (08:41→20:08)
[2020-12-27] MEDS: FAMOTIDINE 20 MG/2 ML VIAL IV SCH ×2 (08:42→20:08)
[2020-12-27] MEDS: FLUTICASONE 50MCG NASAL SPRAY NAS SCH ×2 (08:43→20:09)
[2020-12-27] MEDS: CLOTRIMAZOLE 1% CREAM 15 GM TOP SCH ×2 (08:43→20:09)
[2020-12-27] MEDS: ENSURE HIGH PROTEIN 237 ML CAN PO SCH ×2 (08:44→20:09)
[2020-12-27] MEDS: NYSTATIN 100MU/GM CREAM 15GM TOP SCH ×2 (08:44→20:08)
--- NOTE | 2020-12-27 09:14 | RAD REPORT ---
EXAM DESCRIPTION: RAD - Chest Single View - 12/27/2020 8:50 am CLINICAL HISTORY: covid Chest pain. COMPARISON: Chest Single View dated 12/25/2020; Chest Single View dated 12/24/2020; Chest Single View dated 12/22/2020; Chest Single View dated 12/19/2020 FINDINGS: Portable technique limits examination quality. Bilateral pulmonary opacities are again noted, unchanged since 12/25/2020. The heart is mildly modera tely enlarged. No displaced fractures. IMPRESSION: Mild bilateral pulmonary opacities appear unchanged since comparative study an are likel y attributable to underlying viral infection.
[2020-12-27] MEDS: ACETAMINOPHEN 325 MG TABLET PO PRN (11:53)
--- NOTE | 2020-12-27 13:03 | P.PN ---
Subjective Date of Service: 12/27/20 Chief Complaint: Coronavirus pneumonia Doign much better on NC O2 Review of Systems General: Weakness Respiratory: Shortness of Breath (g) Physical Examination - Vital Signs Temperature: 98.4 F Blood Pressure: 126/63 Pulse: 109 Respirations: 20 Pulse Ox (%): 93 - Physical Exam General: Alert, Oriented x2, Cooperative Assessment & Plan - Problems (Diagnosis) (1) Pneumonia due to COVID-19 virus Current Visit: Yes Status: Acute Plan: Much better on 3 l/mn NC O2 / poss DC AM on pred and anticoagulation/ O2 ordered
[2020-12-27 14:03] LABS: Blood Morphology Comment NOT SEEN (NOT SEEN); Platelet Estimate ADEQ; White Blood Cell Scan OK (OK)
[2020-12-27] MEDS: BENZONATATE 100 MG CAP PO PRN (20:07)
[2020-12-27] MEDS: DIPHENHYDRAMINE 25 MG TAB/CAP PO PRN (20:07)
[2020-12-27] MEDS: PRAMIPEXOLE 0.25 MG TAB PO SCH (20:07)
[2020-12-27] MEDS: MIRTAZAPINE 15 MG TAB PO SCH (20:07)
[2020-12-27] MEDS: QUETIAPINE 100MG TAB PO SCH (20:08)
[2020-12-28] MEDS: DIGOXIN 0.25 MG/ML AMP IV SCH (04:18)
[2020-12-28] MEDS: LEVOTHYROXINE SOD 0.112 MG TAB PO SCH (05:16)
[2020-12-28] MEDS: INSULIN -REGULAR HUMAN 50 UNIT/0.5 ML ML SQ SCH ×2 (07:30→11:30)
[2020-12-28] MEDS: METHYLPREDNISOLONE 125 MG INJ IV SCH (07:41)
[2020-12-28] MEDS: METOPROLOL TAR 25 MG TAB PO SCH (07:41)
[2020-12-28] MEDS: PREGABALIN 50 MG CAP PO SCH (07:41)
[2020-12-28] MEDS: SERTRALINE HCL 50 MG TAB PO SCH (07:41)
[2020-12-28] MEDS: FAMOTIDINE 20 MG/2 ML VIAL IV SCH (07:41)
[2020-12-28] MEDS: LOSARTAN POTASSIUM 50 MG TABLET PO SCH (07:42)
[2020-12-28] MEDS: APIXABAN 5 MG TABLET PO SCH (07:42)
[2020-12-28] MEDS: CLOTRIMAZOLE 1% CREAM 15 GM TOP SCH (07:43)
[2020-12-28] MEDS: ENSURE HIGH PROTEIN 237 ML CAN PO SCH (07:43)
[2020-12-28] MEDS: FLUTICASONE 50MCG NASAL SPRAY NAS SCH (07:43)
[2020-12-28] MEDS: NYSTATIN 100MU/GM CREAM 15GM TOP SCH (07:44)
[2020-12-28] MEDS: MEMANTINE HCL 10 MG TABLET PO SCH (07:44)
[2020-12-28] MEDS: IBUPROFEN 600 MG TAB PO SCH (07:44)
[2020-12-28] MEDS: DESVENLAFAXINE SUCCINATE 50 MG ER TAB PO SCH (07:46)
[2020-12-28] MEDS: FLUCONAZOLE 100 MG TAB PO SCH (07:49)
[2020-12-28 08:24] VITALS: TEMP 98
[2020-12-28 09:34] VITALS: O2SAT 94
[2020-12-28 12:40] VITALS: BP 132/76
--- NOTE | 2020-12-29 08:37 | PN ---
Date of Progress Note: 12/27/2020 Subjective: The patient was seen this morning for followup. No new complaints or problems reported by her. She was lying in bed, not in distress, maintaining adequate oxygenation when I saw her betwe en 91% to 94% on 2 L nasal cannula oxygen. Denies any complaints. Objective: Vital Signs: Reviewed. HEENT: Examination unremarkable. Lungs: Clear to auscultation. Heart: Sounds normal. Abdomen: Soft. Bowel sounds normal. No guarding, rigidity, tenderness, or distention. Extremities: No leg edema. Impression: 1.COVID-19 infection. 2.COVID-19 pneumonia. 3.Acute respiratory failure with hypoxia. 4.Paroxysmal atrial fibrillation. 5.Hypertension. Plan: Last night, the patient had atrial fibrillation with rapid ventricular rate. We started her o n metoprolol 25 mg twice a day. She did receive 1 dose of Toprol and IV digoxin. We will continue t hat. Continue current anticoagulation medication which is Eliquis. Our plan is to possibly discharg e her to go home tomorrow and we will make sure she has her home oxygen arranged prior to discharge. Labs and chest x-ray results reviewed. Details were discussed with the patient. BO/MODL Voice ID: [id number] Report ID: [id number]
--- NOTE | 2021-01-01 14:49 | DS ---
Date of Discharge: 12/28/2020 Disposition: Discharged to go home. Physical Examination: HEENT: Unremarkable. Lungs: Clear to auscultation. Heart: Sounds normal. Abdomen: Soft. Bowel sounds normal. No guarding, rigidity, tenderness, or distention. Extremities: No leg edema. Discharge Medications And Instructions: 1.Continue all prior home medication except following changes. 2.Stop furosemide. 3.Lower dose of losartan 100 mg and the patient to take half a tablet by mouth daily. 4.Start following new medications: a.Eliquis 5 mg 2 times a day for 1 month. b.Fluconazole 200 mg daily for 1 week. c.Famotidine 20 mg 2 times a day for 1 month. d.Prednisone 10 mg, patient to take 2 tablets by mouth 2 times a day for 4 days, then 2 tablets by m outh daily for 4 days, then 1 tablet by mouth daily for 4 days, then 1/2 tablet by mouth daily for 4 days, then stop; take with food. e.Metoprolol tartrate 25 mg take 1 tablet by mouth 2 times a day. f.Sertraline 25 mg take 1 tablet by mouth daily. g.Follow up at my office this coming week, weekend on Sunday via tele visit. Laboratory Data: CRP upon admission was 173 and last CRP was less than 2.9. Last chemistry from , sodium 144, potassium 4.3, chloride 112, bicarb 28, BUN 37, creatinine 1, glucose 200. Whit e count 5.4, hemoglobin 11.6, platelets 197. Final Diagnoses: 1.COVID-19 infection. 2.COVID-19 pneumonia. 3.Acute respiratory failure with hypoxia. 4.Anemia, unspecified. 5.Paroxysmal atrial fibrillation. 6.Thrombocytopenia. 7.Hypertension. 8.Volume depletion. 9.Hypothyroidism. 10.Fibromyalgia. 11.Restless leg syndrome. 12.Insomnia. 13.Oral candidiasis and probable esophageal candidiasis. Hospital Course: This is a 70-year-old very pleasant female patient who was admitted to the hospital with complaints of shortness of breath. Please see dictated H and P for more information. The benita ent was admitted to the hospital with COVID-19 infection, COVID-19 pneumonia, and acute respiratory f ailure with hypoxia. She required supplemental oxygen, IV steroid, baricitinib. Dr. Barnes from [facility] was consulted. She is also on IV antibiotics. During this hospitalization, she had paroxysmal atrial fibrillation. Cardiology consultation was requested from Dr. Ortiz. She had ec ho with Doppler showing normal ejection fraction. Her losartan dose was reduced from 100 mg daily do wn to 50 mg daily and we added metoprolol. The patient has been on anticoagulation therapy, Eliquis 5 mg twice a day since the time of admission, which was continued. She also developed significant pr oblem with oral candidiasis and I also suspect that she probably had esophageal candidiasis on basis of her symptoms and she was started on oral fluconazole and that actually has helped her very well an d we will continue that for 1 more week upon discharge. The patient's condition overall improved sig nificantly and she did require some Villalobos catheter for a few days because she was getting significant ly hypoxic with any attempt to even sit up in the bed, was causing significant hypoxia and was taking long time for her to recover, but as her oxygenation improved, we discontinued her Villalobos catheter. At some point, she was on high-flow oxygen per nasal cannula. She never required intubation, but her condition improved from high flow nasal cannula oxygen. We were able to lower her oxygen down to re gular nasal cannula 2-3 L/minute and once her condition improved well enough, she was discharged to go home in stable condition and I will continue to follow up with her. BO/MODL Voice ID: [id number] Report ID: [id number]
== END 2020-12-28 13:30 | disposition home health service (06) | DRG 177 ==
LOC: ER 07:06 → ERHOLD 09:22 → 4TH 23:37
PROVIDERS: ADMIT Internal Medicine; ATTEND Internal Medicine
PROC: 0T9B70Z Drainage of Bladder with Drainage Device, Via Natural or Artificial Opening (ICD-10-PCS; principal; 2020-12-26)
DX: U07.1 COVID-19 (principal); J12.82 Pneumonia due to coronavirus disease 2019; J96.01 Acute respiratory failure with hypoxia; B37.0 Candidal stomatitis; E46 Unspecified protein-calorie malnutrition; Z68.41 Body mass index [BMI] 40.0-44.9, adult; B37.81 Candidal esophagitis; E03.9 Hypothyroidism, unspecified; B37.2 Candidiasis of skin and nail; E87.6 Hypokalemia; D69.6 Thrombocytopenia, unspecified; I48.0 Paroxysmal atrial fibrillation; I49.5 Sick sinus syndrome; I10 Essential (primary) hypertension; G25.81 Restless legs syndrome; E55.9 Vitamin D deficiency, unspecified; M79.7 Fibromyalgia; D64.9 Anemia, unspecified; E86.9 Volume depletion, unspecified; G47.00 Insomnia, unspecified; K21.9 Gastro-esophageal reflux disease without esophagitis
CPT/HCPCS: 36415; 71045; 80048; 80053; 80076; 81003; 82728; 82805; 82947; 83605; 83690; 83735; 83880; 84132; 84443; 84484; 85025; 85379; 85610; 86140; 87040; 87045; 87046; 87086; 87088; 93005; 93306; 94002; 94003; 94760; 97110; 97112; 97116; 97161; 97530; 99285; J0456; J0696; J1160; J1940; J2405; J2920; J2930; J3480; J7030; J7050

== ENCOUNTER 2021-07-05 20:06 | Observation (INO) | payer OTHER ==
--- OUTSIDE RECORDS SUMMARY | 2021-07-05 20:14 | XMS REPORT | Continuity of Care Document ---
:1950 [facility] t Address [address] [place] [address] Care Team Providers Name Role Phone Maty Kim MD Primary Care Physician [phone] CULLEN Attending Clinician Unavailable BENNIE Attending Clinician Unavailable Saskia SULLIVAN Attending Clinician Unavailable BENNIE Admitting Clinician Unavailable Saskia SULLIVAN Admitting Clinician Unavailable Payers Payer Name Policy Type Policy Number Effective Date Expiration Date S bertrand MEDICARE PART A [id number] 2015 AND B 00:00:00 Problems Condition Condition Condition Status Onset Resolution Last Treating Co mments Source Name Details Category Date Date Treatment Clinician Date Chronic Chronic Disease Active [facility] 00 [place] Wound, Wound, Disease Active [facility] surgical, surgical, 5-15 [facility] - infected infected 00:00: Medica l 00 Center Pre-op Pre-op Disease Active [facility] testing testing 5-15 [facility] 00 [place] Hypothyroi Hypothyroi Disease Active [facility] dism dism 3-12 [facility] 00 [place] Depression Depression Disease Active [facility] with with 3-12 [facility] - anxiety anxiety 00:00: Medical 00 [place] Obesity Obesity Disease Active [facility] 3-12 [facility] 00 [place] Pain Pain Disease Active [facility] 3[facility]12 [facility]: Medical 00 [place] Essential Essential Disease Active [facility] hypertensi hypertensi 3-12 Ileana kes - on on 00:00: Medical 00 Center Chronic Chronic Disease Active 2018- [facility] - disorder disorder 00:[facility]: Medica l 00 Center Depression Problem Active 2015-11-02 M emoria with 03:35:47 l anxiety [place] Depression with anxiety Active Problem 11/02/2015 eCW: Gaurav LebronBria Morbid Problem Active 2015-11-02 Memor ia Obesity 03:35:47 l Morbid [place] Obesity Active Problem 11/02/2015 eCW: Gaurav LebronBria Hyperlipid Problem Active 2015-11-02 M emoria emia 03:35:47 l [place] Hyperlipid emia Active Problem 11/02/2015 eCW: Gaurav LebronBria Osteoarthr Problem Active 2015-11-02 M emoria itis 03:35:47 l generalize Bl[place] n d Osteoarthr itis generalize d Active Problem 11/02/2015 eCW: Gaurav LebronBria Hypothyroi Problem Active 2015-11-02 M emoria dism 03:35:47 l (acquired) Blaise n Hypothyroi dism (acquired) Active Problem 11/02/2015 eCW: Gaurav LebronBria Osteoporos Problem Active 2015-11-02 M emoria is 03:35:47 l [place] Osteoporos is Active Problem 6 eCW: Gaurav LebronBria Bipolar Problem Active 2015-11-02 Inder homar affective 03:35:47 l disorder, Bipolar Herm ila depressed affective disorder, depressed Active Problem 11/02/2015 eCW: Gaurav Fraser Low Back Problem Active 2015-11-02 Mem oria Pain 03:35:47 l Low Back Bla[place] n Pain Active Problem 11/02/2015 eCW: Gaurav Fraser Fibromyalg Problem Active 2015-11-02 M emoria ia 03:35:47 l [place] Fibromyalg ia Active Problem 6 eCW: Gaurav Fraser Routine Diagnosis Active 2014-01-08 Me moria medical 02:02:51 l exam Routine [place] medical exam Active Diagnosis 01/08/2014 eCW: Gaurav Fraser Screen Diagnosis Active 2014-03-18 Mem oria Mammogram 03:04:03 l NEC Screen [place] Mammogram NEC Active Diagnosis 03/18/2014 eCW: Gaurav Fraser Vitamin D Problem Active 2015-11-02 Me moria Deficiency 03:35:47 l Vitamin [place] D Deficiency Active Problem 11/02/2015 eCW: Gaurav Fraser Pre-op Diagnosis Active 2015-02-24 Mem oria evaluation 03:03:42 l Pre-op [place] evaluation Active Diagnosis 02/24/2015 eCW: Gaurav Fraser Pre-op Diagnosis Active 2015-05-21 Mem oria examinatio 04:05:13 l n Pre-op [place] examinatio n Active Diagnosis 05/21/2015 eCW: Gaurav Fraser Restless Problem Active 2016-05-18 Mem oria legs 03:03:33 l syndrome Restless Herm ila legs syndrome Active Problem 05/18/2016 eCW: Gaurav Fraser Depression Problem Active 2016-05-18 M emoria with 03:03:33 l anxiety [place] Depression with anxiety Active Problem 05/18/2016 eCW: Gaurav Fraser Spinal Problem Active 2016-05-18 Memor ia stenosis 03:03:33 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[place] 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 Active Problem 05/18/2016 eCW: Gaurav Fraser Vitamin D Problem Active 2016-05-18 Me moria deficiency 03:03:33 l Vitamin [place] D deficiency Active Problem 05/18/2016 eCW: Gaurav LebronBria Dorsalgia, Problem Active 2016-05-18 M emoria unspecifie 03:03:33 l d [place] Dorsalgia, unspecifie d Active Problem 05/18/2016 eCW: Gaurav LebronBria Osteoporos Problem Active 2016-05-18 M emoria is 03:03:33 l [place] Osteoporos is Active Problem 7 eCW: Gaurav Bria Hypothyroi Problem Active 2016-05-18 M emoria dism, 03:03:33 l unspecifie Bl[place] n d Hypothyroi dism, unspecifie d Active Problem 05/18/2016 eCW: Gaurav Bria Fibromyalg Problem Active 2016-05-18 M emoria ia 03:03:33 l [place] Fibromyalg ia Active Problem 7 eCW: Gaurav Fraser Hyperlipid Problem Active 2016-05-18 M emoria emia, 03:03:33 l unspecifie Bla[place] n d Hyperlipid emia, unspecifie d Active Problem 05/18/2016 eCW: Gaurav Fraser Generalize Problem Active 2016-05-18 M emoria d OA 03:03:33 l [place] Generalize d OA Active Problem 05/18/2016 eCW: Gaurav Fraser Cacosmia Diagnosis Active 2014-11-21 M emoria 02:25:30 l Cacosmia Blaise n Active Diagnosis 11/21/2014 eCW: Gaurav Fraser Memory Diagnosis Active 2015-05-21 Mem oria deficits 03:39:44 l Memory [place] deficits Active Diagnosis 05/21/2015 eCW: Gaurav Fraser Conjunctiv Diagnosis Active 2015-05-21 Memoria itis 04:11:35 l [place] Conjunctiv itis Active Diagnosis 05/21/2015 eCW: Gaurav Fraser Hypertensi Problem Active 2016-05-18 M emoria on 03:03:33 l [place] Hypertensi on Active Problem 7 eCW: Gaurav Fraser Obesity Problem Active 2016-05-18 Inder homar 03:03:33 l Obesity [place] Active Problem 05/18/2016 eCW: Gaurav Fraser Conjunctiv Diagnosis Active 2015-11-02 Memoria itis 03:35:47 l [place] Conjunctiv itis Active Diagnosis 11/02/2015 eCW: Gaurav Fraser History of Past Illness Condition Condition Condition Status Onset Resolution Last Treating Co mments Source Name Details Category Date Date Treatment Clinician Date M19.90 Diagnosis 2018-10-22 2018-10-22 Memoria UNSPECIFIE 10-01 15:01:34 15:01:34 l D M19.90 00:00: [place] OSTEOARTHR UNSPECIFIE 00 ITIS, D UNSPECIFIE OSTEOARTHR D SITE ITIS, UNSPECIFIE D SITE 10/01/2018 Diagnosis 9 [place] Z95.810 Diagnosis 2018-10-22 2018-10-22 Memoria PRESENCE 10-01 15:01:34 15:01:34 l OF Z95.810 00:00: [place] AUTOMATIC PRESENCE 00 (IMPLANTAB OF LE) AUTOMATIC CARDIAC (IMPLANTAB DEFIBRILLA LE) TOR CARDIAC DEFIBRILLA TOR 10/01/2018 Diagnosis 9 [place] E78.5 Diagnosis 2019-2018-10-22 2018-10-22 Memoria HYPERLIPID 6 15:01:34 15:01:34 l EMIA, E78.5 00:00: [place] UNSPECIFIE HYPERLIPID 00 D EMIA, UNSPECIFIE D 10/01/2018 Diagnosis 9 [place] K21.9 Diagnosis 2018-2018-10-22 2018-10-22 Mem[facility] GASTRO-ESO 10-01 15:01:34 15:01:34 l PHAGEAL K21.9 00:00: [place] REFLUX GASTRO-ESO 00 DISEASE PHAGEAL WITHOUT REFLUX ESOPHAGITI DISEASE S WITHOUT ESOPHAGITI S 10/01/2018 Diagnosis 9 [place] R52 PAIN, Diagnosis 2018-2018-10-22 2018-10-22 Memoria UNSPECIFIE 10-01 15:01:34 15:01:34 l D R52 00:00: [place] PAIN, 00 UNSPECIFIE D 10/01/2018 Diagnosis 9 [place] R53.1 Diagnosis 2018-10-22 2018-10-22 Memoria WEAKNESS 6 15:01:34 15:01:34 l R53.1 00:00: [place] WEAKNESS 00 9 Diagnosis 10/22/2018 [place] L30.9 Diagnosis 2018-10-22 2018-10-22 Mem[facility] DERMATITIS 6 15:01:34 15:01:34 l , L30.9 00:00: [place] UNSPECIFIE DERMATITIS 00 D , UNSPECIFIE D 10/01/2018 Diagnosis 9 [place] W19.XXXA Diagnosis 2018-10-22 2018-10-22 Memoria UNSPECIFIE 10-01 15:01:34 15:01:34 l D FALL, W19.XXXA 00:00: Linda nn INITIAL UNSPECIFIE 00 ENCOUNTER D FALL, INITIAL ENCOUNTER 10/01/2018 Diagnosis 9 [place] E66.9 Diagnosis 2018-2018-10-22 2018-10-22 Memoria OBESITY, 6 15:01:34 15:01:34 l UNSPECIFIE E66.9 00:00: Linda nn D OBESITY, 00 UNSPECIFIE D 10/01/2018 Diagnosis 9 [place] M43.26 Diagnosis 2018-2018-10-22 2018-10-22 Memoria FUSION OF 6- 15:01:34 15:01:34 l SPINE, M43.26 00:00: [place] LUMBAR FUSION OF 00 REGION SPINE, LUMBAR REGION 10/01/2018 Diagnosis 9 [place] F32.9 Diagnosis 2017-2018-10-22 2018-10-22 Memoria MAJOR 3- 15:01:34 15:01:34 l DEPRESSIVE 2.9 00:00: Linda nn DISORDER, MAJOR 00 SINGLE DEPRESSIVE EPISODE, DISORDER, UNSPECIFIE SINGLE D EPISODE, UNSPECIFIE D 07/03/2017 Diagnosis 9 [place] R25.1 Diagnosis 2018-10-22 2018-10-22 Memoria TREMOR, 07-03 15:01:34 15:01:34 l UNSPECIFIE R25.1 00:00: Linda nn D TREMOR, 00 UNSPECIFIE D 07/03/2017 Diagnosis 9 [place] Z98.890 Diagnosis 2018-10-22 2018-10-22 Memoria OTHER 07-03 15:01:34 15:01:34 l SPECIFIED [place] [id number] 00:00: Herm ila POSTPROCED OTHER 00 URAL SPECIFIED STATES POSTPROCED URAL STATES 07/03/2017 Diagnosis 9 [place] M54.5 LOW Diagnosis 2017-2018-10-22 2018-10-22 Memoria BACK PAIN 07-03 15:01:34 15:01:34 l 4.5 00:00: [place] LOW BACK 00 PAIN 07/03/2017 Diagnosis 9 [place] I10 Diagnosis 2018-10-22 2018-10-22 Memoria ESSENTIAL 07-03 15:01:34 15:01:34 l (PRIMARY) I10 00:00: [place] HYPERTENSI ESSENTIAL 00 ON (PRIMARY) HYPERTENSI ON 07/03/2017 Diagnosis 9 [place] Z96.9 Diagnosis 2017-2018-10-22 2018-10-22 Memoria PRESENCE 3 15:01:34 15:01:34 l OF [facility].9 00:00: [place] FUNCTIONAL PRESENCE 00 IMPLANT, OF UNSPECIFIE FUNCTIONAL D IMPLANT, UNSPECIFIE D 07/03/2017 Diagnosis 9 [place] Chronic Diagnosis 2017-2018-10-22 2018-10-22 Memoria pain 07-03 15:01:34 15:01:34 l syndrome Chronic 00:00: Linda nn (disorder) pain 00 syndrome (disorder) 07/03/2017 Diagnosis 9 [place] Z97.8 Diagnosis 2018-10-22 2018-10-22 Mem[facility] PRESENCE 07-03 15:01:34 15:01:34 l OF OTHER Z97.8 00:00: [place] SPECIFIED PRESENCE 00 DEVICES OF OTHER SPECIFIED DEVICES 07/03/2017 Diagnosis 9 [place] M79.7 Diagnosis 2018-10-22 2018-10-22 Memoria FIBROMYALG 07-03 15:01:34 15:01:34 l IA 79.7 00:00: [place] FIBROMYALG 00 IA 07/03/2017 Diagnosis 9 [place] E03.9 Diagnosis 2018-10-22 2018-10-22 Memoria HYPOTHYROI 07-03 15:01:34 15:01:34 l DISM, E03.9 00:00: [place] UNSPECIFIE HYPOTHYROI 00 D DISM, UNSPECIFIE D 07/03/2017 Diagnosis 9 [place] Z90.710 Diagnosis 2018-10-22 2018-10-22 Memoria ACQUIRED 07-03 15:01:34 15:01:34 l ABSENCE OF Z90.710 00:00: Her mcguire BOTH ACQUIRED 00 CERVIX AND ABSENCE OF UTERUS BOTH CERVIX AND UTERUS 07/03/2017 Diagnosis 9 [place] F41.9 Diagnosis 2018-10-22 2018-10-22 Memoria ANXIETY 07-03 15:01:34 15:01:34 l DISORDER, F41.9 00:00: Blaise n UNSPECIFIE ANXIETY 00 D DISORDER, UNSPECIFIE D 07/03/2017 Diagnosis 9 [place] Z96.643 Diagnosis 2017-2018-10-22 2018-10-22 Memoria PRESENCE 07-03 15:01:34 15:01:34 l OF Z96.643 00:00: [place] ARTIFICIAL PRESENCE 00 HIP JOINT, OF BILATERAL ARTIFICIAL HIP JOINT, BILATERAL 07/03/2017 Diagnosis 9 [place] Allergies, Adverse Reactions, Alerts Allergy Allergy Status Severity Reaction(s) Onset Inactive Treating Comm ents Source Name Type Date Date Clinician acetamin acetamin Active Memori a ophen-co ophen-co 6-25 l deine deine 00:00: Morphine Morphine Active Memori a 6-25 l 00:00: [place] 00 Codeine Codeine Active Memoria 3-27 l 00:00: [place] 00 Sulfa Sulfa Active Memoria Drugs Drugs 3-27 l 00:00: [place] 00 Codeine Propensi Active Nausea And [facility]omiting 2-06 [facility] - adverse 00:00: Medical reaction 00 Center s Sulfa Propensi Active Hives [facility] (Sulfona ty to 2-06 [facility] - mide adverse 00:00: Medical Antibiot reaction 00 Center ics) s codeine codeine Active vomiting Memori a 9-26 l 00:00: [place] 00 Social History Social Habit Start Date Stop Date Quantity Comments Source Alcohol intake 2017-12-11 2017-12-11 [address] [facility] - 00:00:00 00:00:00 non-drinker of Medical Ce nter alcohol (finding) Tobacco use and 2017-05-15 2017-05-[address] [facility] Ileana kes - exposure 00:00:00 00:00:00 Medical [place] Language: 2016-01-03 2016-01-[address] [facility] [place], [place] 00:00:00 00:00:00 Sex Ass[birth year] At [birth year] [facility] Ileana kes - 00:00:00 00:00:00 [facility] Smoking Status Start Date Stop Date Source Social History [facility] Never smoker [facility] Medications Ordered Filled Start Stop Current Ordering Indication Dosage Frequency Signature Comments Components Source Medication Medication Date Date Medication? Clinician (SIG) Name Name oxyCODONE Yes Give 1 Memori a HCl Tablet 7-01 tablet by l 10 MG 01:00: mouth [place] 00 three times a day for pain QUEtiapine Yes GIVE 1 Memor ia Fumarate 6-27 TABLET BY l Tablet 50 00:00: MOUTH AT Herm ila MG 00 BEDTIME Mirapex Yes GIVE 1 Memoria Tablet 0.5 6-27 TABLET BY l MG 00:00: MOUTH AT [place] 00 BEDTIME Lyrica Yes Give 1 Memoria Capsule 200 6-26 capsule by l MG 20:00: mouth [place] 00 three times a day related to [...] a Solution 6-26 mcg l 12:00: subcutaneo [place] 00 usly one time a day related to UNSPECIFIE D OSTEOARTHR ITIS, UNSPECIFIE D SITE (M19.90) Cholestyram Yes GIVE 1 Inder homar ine Light 6-26 PACKET BY l Packet 4 GM 12:00: MOUTH ONE H ermann 00 TIME A DAY MIX IN 8OZ LIQUID Lotrisone Yes APPLY TO Inder homar Cream 6-26 AFFECTED l 1-0.05 % 12:00: AREA [place] 00 TOPICALLY TWO TIMES A DAY BOTH [...] capsule by l MG 12:00: mouth four [place] 00 times a day related to FIBROMYALG IA (M79.7) DESVENLAFAX Yes TAKE 1 TAB Memoria INE ER 50MG 6-26 BY MOUTH l TAB ER 24H 12:00: EVERY DAY He rmann 00 Ferrous Yes Give 1 Memoria Sulfate 6-26 tablet by l Tablet 325 12:00: mouth one He rmann (65 Fe) MG 00 time a day for supplement ation Vitamin D2 Yes GIVE [id number] M emoria Tablet 6-26 UNIT BY l 12:00: MOUTH ONE [place] 00 TIME A DAY EVERY WED GlycoLax Yes Give 17 Memori a Powder 6-26 gram by l 12:00: mouth one [place] 00 time a day every other day for constipati on (in Liquid) Losartan Yes GIVE 1 Memoria Potassium 6-26 TABLET BY l Tablet 100 12:00: MOUTH ONE He rmann MG 00 TIME A DAY HOLD FOR SBP<110, P<60 Furosemide Yes GIVE 1 Memor ia Tablet 20 6-26 TABLET BY l MG 12:00: MOUTH ONE [place] 00 TIME A DAY Pristiq Yes Give [...] 00 every 12 hours for constipati on mirtazapine Yes 15mg QD Take [address] [facility] (REMERON) 9 by mouth [facility] - 30 MG 16:19: nightly . Medical tablet 24 Center temazepam Yes 15mg Take [address] (RESTORIL) 906 by mouth [facility] - 15 mg 16:19: every Medical capsule 24 night as Center needed for Sleep. lidocaine Yes 1{patch Q24H Place [address] (LIDODERM) 9 } patch onto Jael es - 5 [...] Center times daily. gabapentin 2018-0 Yes 300mg Q.[id number] Take [address] (NEURONTIN) 9- [id number] mg by L ukes - 300 MG 16:19: 3D mouth 3 Medical capsule 24 (three) Center times daily. oxyCODONE 2018-0 Yes 15mg Take [address] (ROXICODONE - by mouth Luke s - ) 15 [...] Yes Q.5D Apply [facility] e-betametha -06 topically Jael es - sone 16:19: 2 (two) Medical (LOTRISONE) 24 times Center 1-0.05 % daily. cream cholecalcif 2018-0 Yes [id number] Q7D Take [facility] brady, 12-13 50,000 [facility] - vitamin D3, 16:19: Units by Me dical (DECARA) 24 mouth once Cente r 50,000 unit a week. capsule desvenlafax 2017-0 Yes 50mg QD Take [address] [facility] ine 906 by mouth [facility] - succinate 16:19: daily. Medica l (PRISTIQ) 24 Center 50 MG 24 hr tablet mirtazapine 0 Yes 15mg QD Take 15 mg [facility] [...] hours or as directed by . pramipexole 2017-0 Yes .5mg QD Take 0.[address] (MIRAPEX) 9-06 mg by [facility] - 0.5 MG 16:19: mouth Medical tablet 24 nightly. Center docusate 0 Yes 100mg Q.5D Take [address] [facility] sodium 9-06 mg by [facility] - (COLACE) 16:19: mouth 2 Medica l 100 MG 24 (two) Center capsule times daily. oxymetazoli 2018-0 Yes 2{spray [address] [facility] ne (AFRIN) 12-13 } by Nasal [facility] - 0.05 % 16:19: route 2 Medical nasal spray 24 (two) Center times daily as needed for Congestion . diphenhydrA 2017-0 Yes 25mg Take [address] [facility] [facility] MINE 9-06 by mouth [facility] - (ZZZQUIL) 16:19: every Medical 25 mg 24 night as Center capsule needed (sleep). MENTHOL 2017-0 Yes 1{patch Q.5D Apply [address] [facility] (ICY HOT 9-06 } patch [facility] - PATCH TOP) 16:19: topically Me dical 24 2 (two) Center times daily. gabapentin 2018-0 Yes 300mg Q.[id number] Take [address] (NEURONTIN) - [id number] mg by L ukes - 300 MG [...] Take [address] [facility] (LASIX) 20 06 n by mouth [facility] - MG tablet 16:19: daily. Medica l 24 Center levothyroxi 0 Yes 112ug Take [address] ne 9- mcg by [facility] - (SYNTHROID, 16:19: mouth Medic al LEVOTHROID) 24 Every Center 112 MCG morning on tablet an empty stomach. pregabalin 2018-0 Yes 225mg Q.5D Take [address] (LYRICA) - mg by [facility] - 225 MG 16:19: mouth 2 Medical capsule 24 (two) Center times daily. clotrimazol 2018-0 Yes Q.5D Apply [facility] e-betametha 12-13 topically Jael es - sone 16:19: 2 (two) Medical (LOTRISONE) 24 times Center 1-0.05 % daily. cream cholecalcif 2018-0 Yes [id number] Q7D Take [facility] brady, 12-13 50,000 [facility] - vitamin D3, 16:19: Units by Me dical (DECARA) 24 mouth once Cente r 50,000 unit a week. capsule desvenlafax 2018-0 Yes 50mg QD Take [address] ine 06 by mouth [facility] - succinate 16:19: daily. Medica l (PRISTIQ) 24 Center 50 MG 24 hr tablet Temazepam 0 Yes Give 1 Memori a Capsule 15 4-14 capsule by l MG 05:00: mouth [place] 00 every 24 hours as needed for insomnia Ibuprofen 2017- Yes GIVE 1 Memori a Tablet 400 4-12 TABLET BY l MG 20:00: MOUTH [place] 00 THREE TIMES A DAY FOR 7 DAYS OxyCODONE Yes Give 1 Memori a HCl Tablet 4-07 tablet by l 15 MG 16:15: mouth [place] 00 every 6 hours as needed for For pain Temazepam Yes Give 2 Memori a Capsule 7.5 4-07 capsule by l MG 03:00: mouth [place] 00 every 24 hours as needed for insomnia give 2 tabs = 15mg Amoxicillin Yes GIVE 1 Inder homar -Pot 4-06 TABLET BY l Clavulanate 00:00: MOUTH Linda nn Tablet 00 EVERY 12 875-125 MG HOURS FOR 7 DAYS Temazepam Yes Give 1 Memori a Capsule 15 4-05 tablet by l MG 23:53: mouth [place] 00 every 24 hours as needed for sleep until 07/16/2017 23:59 Temazepam Yes Give 1 Memori a Capsule 15 4-05 capsule by l MG 20:45: mouth [place] 00 every 24 hours as needed for Insomnia Bisacodyl Yes Give 2 Memori a EC Tablet 4-04 tablet by l Delayed 15:00: mouth [place] Release 5 00 every 24 MG hours as needed for constipati on Acetaminoph Yes Give 2 Inder homar en Tablet 4-02 tablet by l 325 MG 20:45: mouth [place] 00 every 6 hours as needed for pain and fever greater than 100.4 Decara Yes Give [id number] Memor ia Capsule 3-29 [place] [id number] UNIT 12:00: mouth one He rmann 00 time a day every Hannah for Vitamin Supplement Lidoderm Yes APPLY TO Memor ia Patch 5 % 3-28 RIGHT l 12:00: THIGH [place] 00 TOPICALLY ONE TIME A DAY APPLY [...] TABLET BY l MG 00:00: MOUTH AT [place] 00 BEDTIME Mirapex Yes GIVE 1 Memoria Tablet 0.5 3-28 TABLET BY l MG 00:00: MOUTH AT [place] 00 BEDTIME Lyrica Yes Give 1 Memoria Capsule 225 3-28 capsule by l MG 00:00: mouth two [place] 00 times a day related to FIBROMYALG IA (M79.7) Clotrimazol Yes Apply to Me moria e-Betametha 3-28 affected l sone Cream 00:00: area [place] 1-0.05 % 00 topically two times a [...] tablet by l 325 MG 20:45: mouth [place] 00 every 6 hours as needed for pain OxyCODONE Yes Give 1 Memori a HCl Tablet 3-27 tablet by l 15 MG 20:45: mouth [place] 00 every 6 hours as needed for severe pain for 10 Days hydrochloro Yes Brigid HannaElías 1 tab(s) Memoria thiazide-lo 2-08 Bria l sartan 00:00: [place] 00 lorazepam Yes Brigid HannaElías 1 tab(s) Memoria 1-26 Bria l 03:03: [place] 13 levothyroxi 2015-04 Yes Milagros Tejeda 1 tab(s) Memoria ne 0-13 l 02:18: [place] 44 fenofibrate 2015-04 Yes Milagros Tejeda 1 tab(s) Memoria 0-13 l 02:18: [place] 44 Vitamin D3 2015-04 Yes Milagros Tejeda 1 cap(s) Memoria 0-13 l 02:18: [place] 44 mirtazapine 2015-04 Yes Milagros Tejeda 1 tab(s) Memoria 0-13 l 02:18: [place] 44 ibandronate 2015-04 Yes Milagros Tejeda 1 tab(s) Memoria 0-13 l 02:18: [place] 44 zolpidem 2015-04 Yes Milagros Tejeda 1 tab(s) Memoria 0-13 l 02:18: [place] 44 Pristiq 2015-04 Yes Milagros Tejeda 1 tab(s) Memoria 0-13 l 02:18: [place] 44 lidocaine 2015-04 Yes Milagros Tejeda - Me moria 0.5% 0-13 l topical 02:18: [place] [facility] 44 Butrans 2015-04 Yes Milagros Tejeda 1 patch M emoria 0-13 l 02:18: [place] 44 clonidine 2015-04 Yes Milagros Tejeda 1 tab(s) Memoria 0-13 l 02:18: [place] 44 hydrochloro 2015-04 Yes Milagros Tejeda 1 tab(s) Memoria thiazide-lo 0-13 l sartan 02:18: [place] 44 Lyrica Yes Brigid Elías 1 cap(s) M emoria 9-26 Bria l 00:00: [place] 00 ergocalcife Yes Milagros Ileana 1 cap(s) Memoria rol 9-26 l 00:00: [place] 00 clotrimazol 2016-0 Yes Milagros Tejeda 1 noy Memoria e topical 9-26 l 00:00: [place] 00 Vigamox 2015-0 Yes Brandon 1 gtt Inder homar 6-27 Davis l 00:00: [place] 00 PrednisoLON 2015-0 Yes Milagros Tejeda 1 gtt Memoria E Na 6-27 l Phosphate-N 00:00: Blaise n a 00 Sulfacetami de Lyrica 2015-0 Yes Brandon 1 cap(s) Me moria 6-01 Davis l 00:00: [place] 00 Lyrica 2015-0 Yes Brandon 1 cap(s) Me moria 4-29 Davis l 02:37: [place] 52 hydrochloro 2015-0 Yes Brandon 1 tab(s) Memoria thiazide-lo 2-29 Davis l sartan 00:00: [place] 00 benzonatate 2015-0 Yes Brandon 1 cap(s) Memoria 2-12 Davis l 03:39: [place] 44 Lyrica 2014-1 Yes Brandon 1 cap(s) Me moria 1-23 Davis l 00:00: [place] 00 Levaquin 2015-1 Yes Brandon 1 tab(s) Memoria 1-04 Davis l 00:00: [place] 00 ofloxacin 2015-0 Yes Brandon 2 gtt Me moria ophthalmic 9-28 Davis l 00:00: [place] 00 Betamethaso 2015-0 Yes Brandon 1 noy Memoria ne-Clotrima 8-11 Davis l zole 00:00: [place] 00 Montelukast 2015-0 Yes Brandon 1 tab(s) Memoria Sodium 3-30 Davis l 00:00: [place] 00 benzonatate 2015-0 Yes Brandon 1 cap(s) Memoria 3-16 Davis l 00:00: [place] 00 ProAir HFA 2015-0 Yes Brandon 2 puff(s) Memoria 3-16 Davis l 00:00: [place] 00 Betamethaso 2014-1 Yes Brandon 1 noy Memoria ne-Clotrima 2-15 Davis l zole 00:00: [place] 00 tramadol 2013-1 Yes Brandon 2 tab(s) Memoria 2-10 Davis l 03:04: [place] 03 cyclobenzap 2013-1 Yes Brandon 1 tab(s) Memoria rine 2-10 Davis l 03:04: [place] 03 zolpidem 2013-04 Yes Brandon 1 tab(s) Memoria 0-29 Davis l 00:00: [place] 00 Vitamin D3 2013- Yes Brandon 1 cap(s) Memoria 9-11 Davis l 00:00: [place] 00 Lyrica 2013- Yes Brandon 1 cap(s) Me moria 8-28 Davis l 00:00: [place] 00 Immunizations Ordered Immunization Filled Immunization Date Status Commen ts Source Name Name Influenza (MCR) 2014-03-23 Completed [facility] 00:00:00 [place] Vital Signs Vital Name Observation Time Observation Value Comments Source Systolic (mm Hg) 2018-10-22 11:19:00 Inder rial [place] Diastolic (mm Hg) 2018-10-22 11:19:00 Mem orial [place] Temperature Oral (F) 2018-10-22 11:19:00 98 F [facility] [place] Heart Rate 2018-10-22 11:19:00 53 /min [facility] [place] Respitory Rate 2018-10-22 11:19:00 Memori al [place] Systolic (mm Hg) 2018-10-22 04:28:00 Inder rial [place] Diastolic (mm Hg) 2018-10-22 04:28:00 Mem orial [place] Temperature Oral (F) 2018-10-22 04:28:00 98 F [facility] [place] Heart Rate 2018-10-22 04:28:00 54 /min [facility] [place] Respitory Rate 2018-10-22 04:28:00 Memori al [place] Systolic (mm Hg) 2018-10-21 19:04:00 Inder rial [place] Diastolic (mm Hg) 2018-10-21 19:04:00 Mem orial [place] Temperature Oral (F) 2018-10-21 19:04:00 97 F [facility] [place] Heart Rate 2018-10-21 19:04:00 60 /min [facility] [place] Respitory Rate 2018-10-21 19:04:00 Memori al [place] Systolic (mm Hg) 2018-10-21 11:27:00 Inder rial [place] Diastolic (mm Hg) 2018-10-21 11:27:00 Mem orial [place] Temperature Oral (F) 2018-10-21 11:27:00 98.4 F Memorial [place] Heart Rate 2018-10-21 11:27:00 52 /min Memorial [place] Respitory Rate 2018-10-21 11:27:00 Memori al [place] Systolic (mm Hg) 2018-10-21 03:38:00 Indre rial [place] Diastolic (mm Hg) 2018-10-21 03:38:00 Mem orial [place] Temperature Oral (F) 2018-10-21 03:38:00 98 F [facility] [place] Heart Rate 2018-10-21 03:38:00 52 /min Memorial [place] Respitory Rate 2018-10-21 03:38:00 Memori al [place] Systolic (mm Hg) 2018-10-20 22:12:00 Inder rial [place] Diastolic (mm Hg) 2018-10-20 22:12:00 Mem orial [place] Temperature Oral (F) 2018-10-20 22:12:00 98.6 F [facility] [place] Heart Rate 2018-10-20 22:12:00 74 /min [facility] [place] Respitory Rate 2018-10-20 22:12:00 Memori al [place] [place] Systolic (mm Hg) 2018-10-20 17:59:00 [facility] [place] Diastolic (mm Hg) 2018-10-20 17:59:00 [facility] [place] Temperature Oral (F) 2018-10-20 17:59:00 98.2 F [facility] [place] Heart Rate 2018-10-20 17:59:00 69 /min [facility] Respitory Rate 2018-10-20 17:59:00 [facility] [place] Weight 2018-10-20 16:24:05 [facility] Systolic (mm Hg) 2018-10-20 03:36:00 [facility] [place] Diastolic (mm Hg) 2018-10-20 03:36:00 [facility] Temperature Oral (F) 2018-10-20 03:36:00 98.4 F [facility] [place] Heart Rate 2018-10-20 03:36:00 51 /min [facility] Respitory Rate 2018-10-20 03:36:00 [facility] Systolic (mm Hg) 2018-10-19 18:45:00 [facility] Diastolic (mm Hg) 2018-10-19 18:45:00 [facility] Temperature Oral (F) 2018-10-19 18:45:00 97 F [facility] [place] Heart Rate 2018-10-19 18:45:00 65 /min [facility] Respitory Rate 2018-10-19 18:45:00 [facility] [place] Systolic (mm Hg) 2018-10-19 11:44:00 [facility] Diastolic (mm Hg) 2018-10-19 11:44:00 [facility] [place] Temperature Oral (F) 2018-10-19 11:44:00 97.2 F [facility] Heart Rate 2018-10-19 11:44:00 61 /min [facility] Respitory Rate 2018-10-19 11:44:00 [facility] [place] Systolic (mm Hg) 2018-10-19 09:15:00 [facility] Diastolic (mm Hg) 2018-10-19 09:15:00 [facility] Temperature Oral (F) 2018-10-19 09:15:00 98.6 F [facility] Heart Rate 2018-10-19 09:15:00 56 /min [facility] Respitory Rate 2018-10-19 09:15:00 [facility] Systolic (mm Hg) 2018-10-18 19:57:00 [facility] Diastolic (mm Hg) 2018-10-18 19:57:00 [facility] [place] Temperature Oral (F) 2018-10-18 19:57:00 99.1 F [facility] Heart Rate 2018-10-18 19:57:00 60 /min [facility] [place] Respitory Rate 2018-10-18 19:57:00 [facility] [place] Systolic (mm Hg) 2018-10-18 05:51:00 [facility] [place] Diastolic (mm Hg) 2018-10-18 05:51:00 [facility] [place] Temperature Oral (F) 2018-10-18 05:51:00 98.7 F [facility] Heart Rate 2018-10-18 05:51:00 57 /min [facility] [place] Respitory Rate 2018-10-18 05:51:00 [facility] Systolic (mm Hg) 2018-10-17 20:12:00 [facility] [place] Diastolic (mm Hg) 2018-10-17 20:12:00 [facility] Temperature Oral (F) 2018-10-17 20:12:00 97 F [facility] [place] Heart Rate 2018-10-17 20:12:00 56 /min [facility] Respitory Rate 2018-10-17 20:12:00 [facility] [place] Systolic (mm Hg) 2018-10-17 04:21:00 [facility] [place] Diastolic (mm Hg) 2018-10-17 04:21:00 [facility] Temperature Oral (F) 2018-10-17 04:21:00 97.8 F [facility] Heart Rate 2018-10-17 04:21:00 59 /min [facility] Respitory Rate 2018-10-17 04:21:00 [facility] [place] Systolic (mm Hg) 2018-10-16 18:56:00 [facility] [place] Diastolic (mm Hg) 2018-10-16 18:56:00 [facility] Temperature Oral (F) 2018-10-16 18:56:00 97 F [facility] [place] Heart Rate 2018-10-16 18:56:00 70 /min [facility] [place] Respitory Rate 2018-10-16 18:56:00 [facility] [place] Systolic (mm Hg) 2018-10-16 05:26:00 [facility] Diastolic (mm Hg) 2018-10-16 05:26:00 [facility] [place] Temperature Oral (F) 2018-10-16 05:26:00 98.6 F [facility] [place] Heart Rate 2018-10-16 05:26:00 58 /min [facility] Respitory Rate 2018-10-16 05:26:00 [facility] Weight 2018-10-15 17:47:00 [facility] Height 2018-10-15 16:15:00 [facility] Systolic (mm Hg) 2018-10-15 16:03:00 [facility] [place] Diastolic (mm Hg) 2018-10-15 16:03:00 [facility] Temperature Oral (F) 2018-10-15 16:03:00 98.4 F [facility] Heart Rate 2018-10-15 16:03:00 48 /min [facility] Respitory Rate 2018-10-15 16:03:00 [facility] [place] Systolic (mm Hg) 2018-10-15 06:16:00 [facility] [place] Diastolic (mm Hg) 2018-10-15 06:16:00 [facility] [place] Temperature Oral (F) 2018-10-15 06:16:00 98.6 F [facility] [place] Heart Rate 2018-10-15 06:16:00 58 /min [facility] Respitory Rate 2018-10-15 06:16:00 [facility] [place] Systolic (mm Hg) 2018-10-14 18:41:00 [facility] [place] Diastolic (mm Hg) 2018-10-14 18:41:00 [facility] Temperature Oral (F) 2018-10-14 18:41:00 97 F [facility] Heart Rate 2018-10-14 18:41:00 59 /min [facility] Respitory Rate 2018-10-14 18:41:00 [facility] [place] Systolic (mm Hg) 2018-10-14 11:44:00 [facility] Diastolic (mm Hg) 2018-10-14 11:44:00 [facility] Temperature Oral (F) 2018-10-14 11:44:00 97.7 F [facility] [place] Heart Rate 2018-10-14 11:44:00 44 /min [facility] Respitory Rate 2018-10-14 11:44:00 [facility] [place] Systolic (mm Hg) 2018-10-14 05:50:00 [facility] Diastolic (mm Hg) 2018-10-14 05:50:00 [facility] [place] Temperature Oral (F) 2018-10-14 05:50:00 98.2 F [facility] Heart Rate 2018-10-14 05:50:00 45 /min [facility] Respitory Rate 2018-10-14 05:50:00 [facility] [place] Systolic (mm Hg) 2018-10-14 05:46:00 [facility] Diastolic (mm Hg) 2018-10-14 05:46:00 [facility] [place] Temperature Oral (F) 2018-10-14 05:46:00 98 F [facility] [place] Heart Rate 2018-10-14 05:46:00 72 /min [facility] Respitory Rate 2018-10-14 05:46:00 [facility] [place] Systolic (mm Hg) 2018-10-13 20:41:00 [facility] [place] Diastolic (mm Hg) 2018-10-13 20:41:00 [facility] Temperature Oral (F) 2018-10-13 20:41:00 97.8 F [facility] Heart Rate 2018-10-13 20:41:00 75 /min [facility] Respitory Rate 2018-10-13 20:41:00 [facility] [place] Systolic (mm Hg) 2018-10-13 05:10:00 [facility] Diastolic (mm Hg) 2018-10-13 05:10:00 [facility] [place] Temperature Oral (F) 2018-10-13 05:10:00 98.2 F [facility] Heart Rate 2018-10-13 05:10:00 52 /min [facility] [place] Respitory Rate 2018-10-13 05:10:00 [facility] [place] Systolic (mm Hg) 2018-10-12 20:13:00 [facility] [place] Diastolic (mm Hg) 2018-10-12 20:13:00 [facility] Temperature Oral (F) 2018-10-12 20:13:00 98.9 F [facility] [place] Heart Rate 2018-10-12 20:13:00 65 /min [facility] Respitory Rate 2018-10-12 20:13:00 [facility] [place] Systolic (mm Hg) 2018-10-12 04:07:00 [facility] Diastolic (mm Hg) 2018-10-12 04:07:00 [facility] Temperature Oral (F) 2018-10-12 04:07:00 98.9 F [facility] Heart Rate 2018-10-12 04:07:00 60 /min [facility] Respitory Rate 2018-10-12 04:07:00 [facility] [place] Systolic (mm Hg) 2018-10-11 19:38:00 [facility] Diastolic (mm Hg) 2018-10-11 19:38:00 [facility] Temperature Oral (F) 2018-10-11 19:38:00 97 F [facility] [place] Heart Rate 2018-10-11 19:38:00 54 /min [facility] [place] Respitory Rate 2018-10-11 19:38:00 [facility] [place] Systolic (mm Hg) 2018-10-11 11:23:00 [facility] Diastolic (mm Hg) 2018-10-11 11:23:00 [facility] Temperature Oral (F) 2018-10-11 11:23:00 98.2 F [facility] [place] Heart Rate 2018-10-11 11:23:00 50 /min [facility] Respitory Rate 2018-10-11 11:23:00 [facility] [place] Systolic (mm Hg) 2018-10-11 04:56:00 [facility] Diastolic (mm Hg) 2018-10-11 04:56:00 [facility] Temperature Oral (F) 2018-10-11 04:56:00 98.7 F [facility] Heart Rate 2018-10-11 04:56:00 62 /min [facility] [place] Respitory Rate 2018-10-11 04:56:00 [facility] [place] Systolic (mm Hg) 2018-10-10 18:27:00 [facility] [place] Diastolic (mm Hg) 2018-10-10 18:27:00 [facility] [place] Temperature Oral (F) 2018-10-10 18:27:00 97 F [facility] [place] Heart Rate 2018-10-10 18:27:00 53 /min [facility] Respitory Rate 2018-10-10 18:27:00 [facility] [place] Systolic (mm Hg) 2018-10-10 15:17:00 [facility] [place] Diastolic (mm Hg) 2018-10-10 15:17:00 [facility] [place] Temperature Oral (F) 2018-10-10 15:17:00 98.2 F [facility] [place] Heart Rate 2018-10-10 15:17:00 50 /min [facility] [place] Respitory Rate 2018-10-10 15:17:00 [facility] Systolic (mm Hg) 2018-10-10 04:27:00 [facility] [place] Diastolic (mm Hg) 2018-10-10 04:27:00 [facility] Temperature Oral (F) 2018-10-10 04:27:00 98.6 F [facility] [place] Heart Rate 2018-10-10 04:27:00 64 /min [facility] Respitory Rate 2018-10-10 04:27:00 [facility] [place] Systolic (mm Hg) 2018-10-09 19:57:00 [facility] Diastolic (mm Hg) 2018-10-09 19:57:00 [facility] [place] Temperature Oral (F) 2018-10-09 19:57:00 98.6 F [facility] Heart Rate 2018-10-09 19:57:00 58 /min [facility] Respitory Rate 2018-10-09 19:57:00 [facility] [place] Systolic (mm Hg) 2018-10-09 03:42:00 [facility] [place] Diastolic (mm Hg) 2018-10-09 03:42:00 [facility] Temperature Oral (F) 2018-10-09 03:42:00 98.7 F [facility] [place] Heart Rate 2018-10-09 03:42:00 60 /min [facility] Respitory Rate 2018-10-09 03:42:00 [facility] [place] Systolic (mm Hg) 2018-10-08 18:57:00 [facility] [place] Diastolic (mm Hg) 2018-10-08 18:57:00 [facility] [place] Temperature Oral (F) 2018-10-08 18:57:00 97 F [facility] Heart Rate 2018-10-08 18:57:00 69 /min [facility] Respitory Rate 2018-10-08 18:57:00 [facility] Systolic (mm Hg) 2018-10-08 13:47:00 [facility] [place] Diastolic (mm Hg) 2018-10-08 13:47:00 [facility] [place] Temperature Oral (F) 2018-10-08 13:47:00 98.4 F [facility] Heart Rate 2018-10-08 13:47:00 50 /min [facility] Respitory Rate 2018-10-08 13:47:00 [facility] Systolic (mm Hg) 2018-10-08 11:28:36 [facility] [place] Diastolic (mm Hg) 2018-10-08 11:28:36 [facility] [place] Heart Rate 2018-10-08 11:28:36 50 /min [facility] [place] Systolic (mm Hg) 2018-10-08 05:22:00 [facility] [place] Diastolic (mm Hg) 2018-10-08 05:22:00 [facility] [place] Temperature Oral (F) 2018-10-08 05:22:00 98.2 F [facility] Heart Rate 2018-10-08 05:22:00 62 /min [facility] Respitory Rate 2018-10-08 05:22:00 [facility] [place] Systolic (mm Hg) 2018-10-07 19:00:00 [facility] Diastolic (mm Hg) 2018-10-07 19:00:00 [facility] Temperature Oral (F) 2018-10-07 19:00:00 97 F [facility] Heart Rate 2018-10-07 19:00:00 64 /min [facility] Respitory Rate 2018-10-07 19:00:00 [facility] [place] Systolic (mm Hg) 2018-10-07 16:55:00 [facility] Diastolic (mm Hg) 2018-10-07 16:55:00 [facility] Temperature Oral (F) 2018-10-07 16:55:00 98.2 F [facility] Heart Rate 2018-10-07 16:55:00 49 /min [facility] Respitory Rate 2018-10-07 16:55:00 [facility] [place] Systolic (mm Hg) 2018-10-07 12:16:59 [facility] [place] Diastolic (mm Hg) 2018-10-07 12:16:59 [facility] Heart Rate 2018-10-07 12:16:59 49 /min [facility] Systolic (mm Hg) 2018-10-07 03:55:00 Inder [facility] [place] Diastolic (mm Hg) 2018-10-07 03:55:00 [facility] [place] Temperature Oral (F) 2018-10-07 03:55:00 98.2 F [facility] [place] Heart Rate 2018-10-07 03:55:00 60 /min [facility] Respitory Rate 2018-10-07 03:55:00 [facility] [place] Systolic (mm Hg) 2018-10-06 12:16:00 [facility] [place] Diastolic (mm Hg) 2018-10-06 12:16:00 [facility] Temperature Oral (F) 2018-10-06 12:16:00 98.6 F [facility] Heart Rate 2018-10-06 12:16:00 50 /min [facility] Respitory Rate 2018-10-06 12:16:00 [facility] [place] Systolic (mm Hg) 2018-10-06 12:05:38 [facility] Diastolic (mm Hg) 2018-10-06 12:05:38 [facility] [place] Heart Rate 2018-10-06 12:05:38 50 /min [facility] Systolic (mm Hg) 2018-10-06 04:06:00 [facility] [place] Diastolic (mm Hg) 2018-10-06 04:06:00 [facility] [place] Temperature Oral (F) 2018-10-06 04:06:00 98.4 F [facility] Heart Rate 2018-10-06 04:06:00 62 /min [facility] [place] Respitory Rate 2018-10-06 04:06:00 [facility] Systolic (mm Hg) 2018-10-05 05:22:00 [facility] [place] Diastolic (mm Hg) 2018-10-05 05:22:00 [facility] [place] Temperature Oral (F) 2018-10-05 05:22:00 98.6 F [facility] [place] Heart Rate 2018-10-05 05:22:00 58 /min [facility] Respitory Rate 2018-10-05 05:22:00 [facility] [place] Systolic (mm Hg) 2018-10-04 20:45:00 [facility] Diastolic (mm Hg) 2018-10-04 20:45:00 [facility] [place] Temperature Oral (F) 2018-10-04 20:45:00 98.6 F [facility] Heart Rate 2018-10-04 20:45:00 53 /min [facility] Respitory Rate 2018-10-04 20:45:00 [facility] [place] Systolic (mm Hg) 2018-10-04 13:31:47 [facility] [place] Diastolic (mm Hg) 2018-10-04 13:31:47 [facility] Heart Rate 2018-10-04 13:31:47 44 /min [facility] Systolic (mm Hg) 2018-10-04 05:03:00 [facility] [place] Diastolic (mm Hg) 2018-10-04 05:03:00 [facility] [place] Temperature Oral (F) 2018-10-04 05:03:00 98.7 F [facility] Heart Rate 2018-10-04 05:03:00 58 /min [facility] Respitory Rate 2018-10-04 05:03:00 [facility] [place] Diastolic (mm Hg) 2018-10-03 19:43:00 [facility] Temperature Oral (F) 2018-10-03 19:43:00 97 F [facility] Heart Rate 2018-10-03 19:43:00 62 /min [facility] Respitory Rate 2018-10-03 19:43:00 [facility] Systolic (mm Hg) 2018-10-03 19:43:00 [facility] [place] Systolic (mm Hg) 2018-10-03 12:54:02 [facility] Diastolic (mm Hg) 2018-10-03 12:54:02 [facility] [place] Heart Rate 2018-10-03 12:54:02 58 /min [facility] Systolic (mm Hg) 2018-10-03 05:20:00 [facility] [place] Diastolic (mm Hg) 2018-10-03 05:20:00 [facility] Temperature Oral (F) 2018-10-03 05:20:00 98.6 F [facility] Heart Rate 2018-10-03 05:20:00 50 /min [facility] Respitory Rate 2018-10-03 05:20:00 [facility] [place] Systolic (mm Hg) 2018-10-02 20:13:00 [facility] [place] Diastolic (mm Hg) 2018-10-02 20:13:00 [facility] Temperature Oral (F) 2018-10-02 20:13:00 98.9 F [facility] Heart Rate 2018-10-02 20:13:00 52 /min [facility] [place] Respitory Rate 2018-10-02 20:13:00 [facility] Systolic (mm Hg) 2018-10-02 15:42:00 [facility] [place] Diastolic (mm Hg) 2018-10-02 15:42:00 [facility] [place] Temperature Oral (F) 2018-10-02 15:42:00 98.6 F [facility] Heart Rate 2018-10-02 15:42:00 53 /min [facility] Respitory Rate 2018-10-02 15:42:00 [facility] [place] Systolic (mm Hg) 2018-10-02 13:39:16 [facility] [place] Diastolic (mm Hg) 2018-10-02 13:39:16 [facility] [place] Heart Rate 2018-10-02 13:39:16 53 /min [facility] Systolic (mm Hg) 2018-10-02 07:17:00 [facility] Diastolic (mm Hg) 2018-10-02 07:17:00 [facility] [place] Temperature Oral (F) 2018-10-02 07:17:00 98.2 F [facility] Heart Rate 2018-10-02 07:17:00 58 /min [facility] Respitory Rate 2018-10-02 07:17:00 [facility] Systolic (mm Hg) 2018-10-02 00:57:00 [facility] [place] Diastolic (mm Hg) 2018-10-02 00:57:00 [facility] Temperature Oral (F) 2018-10-02 00:57:00 98.7 F [facility] [place] Respitory Rate 2018-10-02 00:57:00 [facility] [place] Heart Rate 2018-10-02 00:57:00 57 /min [facility] Weight 2018-10-01 23:47:00 [facility] Temperature Oral (F) 2017-07-26 10:42:00 97.8 F [facility] Heart Rate 2017-07-26 10:42:00 69 /min [facility] Respitory Rate 2017-07-26 10:42:00 [facility] Systolic (mm Hg) 2017-07-26 10:42:00 [facility] Diastolic (mm Hg) 2017-07-26 10:42:00 [facility] [place] Systolic (mm Hg) 2017-07-26 05:12:00 [facility] Diastolic (mm Hg) 2017-07-26 05:12:00 [facility] [place] Temperature Oral (F) 2017-07-26 05:12:00 97.8 F [facility] [place] Heart Rate 2017-07-26 05:12:00 68 /min [facility] Respitory Rate 2017-07-26 05:12:00 [facility] [place] Systolic (mm Hg) 2017-07-25 10:55:00 [facility] [place] Diastolic (mm Hg) 2017-07-25 10:55:00 [facility] Temperature Oral (F) 2017-07-25 10:55:00 98.4 F [facility] Heart Rate 2017-07-25 10:55:00 86 /min [facility] [place] Respitory Rate 2017-07-25 10:55:00 [facility] [place] Systolic (mm Hg) 2017-07-25 04:51:00 [facility] [place] Diastolic (mm Hg) 2017-07-25 04:51:00 [facility] Temperature Oral (F) 2017-07-25 04:51:00 97.8 F [facility] [place] Heart Rate 2017-07-25 04:51:00 67 /min [facility] Respitory Rate 2017-07-25 04:51:00 [facility] Systolic (mm Hg) 2017-07-24 21:09:00 [facility] Diastolic (mm Hg) 2017-07-24 21:09:00 [facility] [place] Temperature Oral (F) 2017-07-24 21:09:00 99.1 F [facility] [place] Heart Rate 2017-07-24 21:09:00 81 /min [facility] [place] Respitory Rate 2017-07-24 21:09:00 [facility] [place] Systolic (mm Hg) 2017-07-24 15:25:00 [facility] [place] Diastolic (mm Hg) 2017-07-24 15:25:00 [facility] Temperature Oral (F) 2017-07-24 15:25:00 98.6 F [facility] [place] Heart Rate 2017-07-24 15:25:00 95 /min [facility] Respitory Rate 2017-07-24 15:25:00 [facility] [place] Systolic (mm Hg) 2017-07-24 09:38:00 [facility] [place] Diastolic (mm Hg) 2017-07-24 09:38:00 [facility] Temperature Oral (F) 2017-07-24 09:38:00 98 F [facility] [place] Heart Rate 2017-07-24 09:38:00 82 /min [facility] Respitory Rate 2017-07-24 09:38:00 [facility] [place] Systolic (mm Hg) 2017-07-24 01:29:00 [facility] Diastolic (mm Hg) 2017-07-24 01:29:00 [facility] Temperature Oral (F) 2017-07-24 01:29:00 98 F [facility] Heart Rate 2017-07-24 01:29:00 75 /min [facility] Respitory Rate 2017-07-24 01:29:00 [facility] [place] Systolic (mm Hg) 2017-07-23 10:35:00 [facility] Diastolic (mm Hg) 2017-07-23 10:35:00 [facility] [place] Temperature Oral (F) 2017-07-23 10:35:00 99.8 F [facility] Heart Rate 2017-07-23 10:35:00 83 /min [facility] Respitory Rate 2017-07-23 10:35:00 [facility] Systolic (mm Hg) 2017-07-22 18:11:00 [facility] [place] Diastolic (mm Hg) 2017-07-22 18:11:00 [facility] Temperature Oral (F) 2017-07-22 18:11:00 98.2 F [facility] [place] Heart Rate 2017-07-22 18:11:00 70 /min [facility] [place] Respitory Rate 2017-07-22 18:11:00 [facility] [place] Systolic (mm Hg) 2017-07-22 10:50:00 [facility] Diastolic (mm Hg) 2017-07-22 10:50:00 [facility] Temperature Oral (F) 2017-07-22 10:50:00 98 F [facility] Heart Rate 2017-07-22 10:50:00 62 /min [facility] Respitory Rate 2017-07-22 10:50:00 [facility] Systolic (mm Hg) 2017-07-21 18:56:00 [facility] [place] Diastolic (mm Hg) 2017-07-21 18:56:00 [facility] Temperature Oral (F) 2017-07-21 18:56:00 97.7 F [facility] [place] Heart Rate 2017-07-21 18:56:00 67 /min [facility] Respitory Rate 2017-07-21 18:56:00 [facility] Systolic (mm Hg) 2017-07-21 10:51:00 [facility] [place] Diastolic (mm Hg) 2017-07-21 10:51:00 [facility] [place] Temperature Oral (F) 2017-07-21 10:51:00 97.7 F [facility] [place] Heart Rate 2017-07-21 10:51:00 74 /min [facility] Respitory Rate 2017-07-21 10:51:00 [facility] Systolic (mm Hg) 2017-07-20 20:03:00 [facility] Diastolic (mm Hg) 2017-07-20 20:03:00 [facility] [place] Temperature Oral (F) 2017-07-20 20:03:00 98.6 F [facility] Heart Rate 2017-07-20 20:03:00 83 /min [facility] Respitory Rate 2017-07-20 20:03:00 [facility] Systolic (mm Hg) 2017-07-20 17:57:00 [facility] [place] Diastolic (mm Hg) 2017-07-20 17:57:00 [facility] [place] Temperature Oral (F) 2017-07-20 17:57:00 97.8 F [facility] Heart Rate 2017-07-20 17:57:00 82 /min [facility] Respitory Rate 2017-07-20 17:57:00 [facility] [place] Systolic (mm Hg) 2017-07-20 05:53:00 [facility] Diastolic (mm Hg) 2017-07-20 05:53:00 [facility] [place] Temperature Oral (F) 2017-07-20 05:53:00 97.3 F [facility] Heart Rate 2017-07-20 05:53:00 63 /min [facility] Respitory Rate 2017-07-20 05:53:00 [facility] Systolic (mm Hg) 2017-07-19 19:09:00 [facility] Diastolic (mm Hg) 2017-07-19 19:09:00 [facility] [place] Temperature Oral (F) 2017-07-19 19:09:00 98.4 F [facility] Heart Rate 2017-07-19 19:09:00 88 /min [facility] Respitory Rate 2017-07-19 19:09:00 [facility] Systolic (mm Hg) 2017-07-19 12:57:00 [facility] Diastolic (mm Hg) 2017-07-19 12:57:00 [facility] Temperature Oral (F) 2017-07-19 12:57:00 98.7 F [facility] Heart Rate 2017-07-19 12:57:00 87 /min [facility] Respitory Rate 2017-07-19 12:57:00 [facility] Systolic (mm Hg) 2017-07-19 05:19:00 [facility] Diastolic (mm Hg) 2017-07-19 05:19:00 [facility] [place] Temperature Oral (F) 2017-07-19 05:19:00 98.1 F [facility] Heart Rate 2017-07-19 05:19:00 73 /min [facility] Respitory Rate 2017-07-19 05:19:00 [facility] [place] Systolic (mm Hg) 2017-07-18 19:56:00 [facility] [place] Diastolic (mm Hg) 2017-07-18 19:56:00 [facility] Temperature Oral (F) 2017-07-18 19:56:00 99.6 F [facility] Heart Rate 2017-07-18 19:56:00 78 /min [facility] Respitory Rate 2017-07-18 19:56:00 [facility] [place] Systolic (mm Hg) 2017-07-18 17:23:00 [facility] Diastolic (mm Hg) 2017-07-18 17:23:00 [facility] Temperature Oral (F) 2017-07-18 17:23:00 98.2 F [facility] Heart Rate 2017-07-18 17:23:00 88 /min [facility] Respitory Rate 2017-07-18 17:23:00 [facility] [place] Systolic (mm Hg) 2017-07-18 06:56:00 [facility] Diastolic (mm Hg) 2017-07-18 06:56:00 [facility] Temperature Oral (F) 2017-07-18 06:56:00 98.7 F [facility] Heart Rate 2017-07-18 06:56:00 77 /min [facility] Respitory Rate 2017-07-18 06:56:00 [facility] Systolic (mm Hg) 2017-07-17 19:07:00 [facility] [place] Diastolic (mm Hg) 2017-07-17 19:07:00 [facility] [place] Temperature Oral (F) 2017-07-17 19:07:00 98.4 F [facility] Heart Rate 2017-07-17 19:07:00 74 /min [facility] [place] Respitory Rate 2017-07-17 19:07:00 [facility] Systolic (mm Hg) 2017-07-17 05:03:00 [facility] [place] Diastolic (mm Hg) 2017-07-17 05:03:00 [facility] [place] Temperature Oral (F) 2017-07-17 05:03:00 98.2 F [facility] Heart Rate 2017-07-17 05:03:00 66 /min [facility] Respitory Rate 2017-07-17 05:03:00 [facility] Systolic (mm Hg) 2017-07-16 19:13:00 [facility] [place] Diastolic (mm Hg) 2017-07-16 19:13:00 [facility] Temperature Oral (F) 2017-07-16 19:13:00 98.2 F [facility] Heart Rate 2017-07-16 19:13:00 78 /min [facility] Respitory Rate 2017-07-16 19:13:00 [facility] [place] Systolic (mm Hg) 2017-07-16 14:01:00 [facility] [place] Diastolic (mm Hg) 2017-07-16 14:01:00 Mem o[facility] [place] Temperature Oral (F) 2017-07-16 14:01:00 98.7 F [facility] [place] Heart Rate 2017-07-16 14:01:00 77 /min [facility] [place] Respitory Rate 2017-07-16 14:01:00 [facility] [place] Systolic (mm Hg) 2017-07-16 03:51:00 Inder rial [place] Diastolic (mm Hg) 2017-07-16 03:51:00 Mem orial [place] Temperature Oral (F) 2017-07-16 03:51:00 98 F [facility] [place] Heart Rate 2017-07-16 03:51:00 68 /min [facility] [place] Respitory Rate 2017-07-16 03:51:00 [facility] [place] Systolic (mm Hg) 2017-07-15 20:14:00 Inder rial [place] Diastolic (mm Hg) 2017-07-15 20:14:00 Mem orial [place] Temperature Oral (F) 2017-07-15 20:14:00 98.2 F [facility] [place] Heart Rate 2017-07-15 20:14:00 85 /min [facility] [place] Respitory Rate 2017-07-15 20:14:00 Memori al [place] Systolic (mm Hg) 2017-07-15 10:42:00 Inder rial [place] Diastolic (mm Hg) 2017-07-15 10:42:00 Mem orial [place] Temperature Oral (F) 2017-07-15 10:42:00 98.4 F [facility] [place] Heart Rate 2017-07-15 10:42:00 72 /min [facility] [place] Respitory Rate 2017-07-15 10:42:00 Memori al [place] Systolic (mm Hg) 2017-07-15 04:08:00 Inder rial [place] Diastolic (mm Hg) 2017-07-15 04:08:00 Mem orial [place] Temperature Oral (F) 2017-07-15 04:08:00 98.6 F [facility] [place] Heart Rate 2017-07-15 04:08:00 75 /min [facility] [place] Respitory Rate 2017-07-15 04:08:00 Memori al [place] Systolic (mm Hg) 2017-07-14 19:32:00 Inder rial [place] Diastolic (mm Hg) 2017-07-14 19:32:00 [facility] [place] Temperature Oral (F) 2017-07-14 19:32:00 98.6 F [facility] [place] Heart Rate 2017-07-14 19:32:00 75 /min [facility] [place] Respitory Rate 2017-07-14 19:32:00 [facility] Systolic (mm Hg) 2017-07-14 12:46:00 [facility] Diastolic (mm Hg) 2017-07-14 12:46:00 [facility] [place] Temperature Oral (F) 2017-07-14 12:46:00 97.8 F [facility] Heart Rate 2017-07-14 12:46:00 64 /min [facility] [place] Respitory Rate 2017-07-14 12:46:00 [facility] [place] Systolic (mm Hg) 2017-07-14 04:14:00 [facility] [place] Diastolic (mm Hg) 2017-07-14 04:14:00 [facility] Temperature Oral (F) 2017-07-14 04:14:00 98.4 F [facility] [place] Heart Rate 2017-07-14 04:14:00 81 /min [facility] Respitory Rate 2017-07-14 04:14:00 [facility] [place] Systolic (mm Hg) 2017-07-13 20:54:00 [facility] [place] Diastolic (mm Hg) 2017-07-13 20:54:00 [facility] [place] Temperature Oral (F) 2017-07-13 20:54:00 98.7 F [facility] Heart Rate 2017-07-13 20:54:00 73 /min [facility] [place] Respitory Rate 2017-07-13 20:54:00 [facility] [place] Systolic (mm Hg) 2017-07-13 14:09:00 [facility] [place] Diastolic (mm Hg) 2017-07-13 14:09:00 [facility] [place] Temperature Oral (F) 2017-07-13 14:09:00 98.2 F [facility] Heart Rate 2017-07-13 14:09:00 71 /min [facility] Respitory Rate 2017-07-13 14:09:00 [facility] [place] Systolic (mm Hg) 2017-07-13 04:08:00 [facility] [place] Diastolic (mm Hg) 2017-07-13 04:08:00 [facility] [place] Temperature Oral (F) 2017-07-13 04:08:00 97.9 F [facility] [place] Heart Rate 2017-07-13 04:08:00 79 /min [facility] Respitory Rate 2017-07-13 04:08:00 [facility] [place] Systolic (mm Hg) 2017-07-12 19:29:00 [facility] Diastolic (mm Hg) 2017-07-12 19:29:00 [facility] Temperature Oral (F) 2017-07-12 19:29:00 98.9 F [facility] [place] Heart Rate 2017-07-12 19:29:00 81 /min [facility] Respitory Rate 2017-07-12 19:29:00 [facility] [place] Systolic (mm Hg) 2017-07-12 14:02:00 [facility] Diastolic (mm Hg) 2017-07-12 14:02:00 [facility] [place] Temperature Oral (F) 2017-07-12 14:02:00 98 F [facility] [place] Heart Rate 2017-07-12 14:02:00 60 /min [facility] [place] Respitory Rate 2017-07-12 14:02:00 [facility] [place] Systolic (mm Hg) 2017-07-12 03:57:00 [facility] [place] Diastolic (mm Hg) 2017-07-12 03:57:00 [facility] [place] Temperature Oral (F) 2017-07-12 03:57:00 98.2 F [facility] [place] Heart Rate 2017-07-12 03:57:00 79 /min [facility] Respitory Rate 2017-07-12 03:57:00 [facility] [place] Systolic (mm Hg) 2017-07-11 19:48:00 [facility] Diastolic (mm Hg) 2017-07-11 19:48:00 [facility] [place] Temperature Oral (F) 2017-07-11 19:48:00 98.9 F [facility] Heart Rate 2017-07-11 19:48:00 72 /min [facility] [place] Respitory Rate 2017-07-11 19:48:00 [facility] [place] Systolic (mm Hg) 2017-07-11 15:18:00 [facility] Diastolic (mm Hg) 2017-07-11 15:18:00 [facility] [place] Temperature Oral (F) 2017-07-11 15:18:00 97.8 F [facility] [place] Heart Rate 2017-07-11 15:18:00 76 /min [facility] Respitory Rate 2017-07-11 15:18:00 [facility] [place] Systolic (mm Hg) 2017-07-10 23:55:00 [facility] [place] Diastolic (mm Hg) 2017-07-10 23:55:00 [facility] [place] Temperature Oral (F) 2017-07-10 23:55:00 98.4 F [facility] Heart Rate 2017-07-10 23:55:00 83 /min [facility] [place] Respitory Rate 2017-07-10 23:55:00 [facility] [place] Systolic (mm Hg) 2017-07-10 14:36:00 [facility] [place] Diastolic (mm Hg) 2017-07-10 14:36:00 [facility] [place] Temperature Oral (F) 2017-07-10 14:36:00 98.4 F [facility] [place] Heart Rate 2017-07-10 14:36:00 63 /min [facility] [place] Respitory Rate 2017-07-10 14:36:00 [facility] [place] Systolic (mm Hg) 2017-07-10 05:24:00 [facility] [place] Diastolic (mm Hg) 2017-07-10 05:24:00 [facility] [place] Temperature Oral (F) 2017-07-10 05:24:00 97.8 F [facility] Heart Rate 2017-07-10 05:24:00 74 /min [facility] [place] Respitory Rate 2017-07-10 05:24:00 [facility] Systolic (mm Hg) 2017-07-09 19:44:00 [facility] Diastolic (mm Hg) 2017-07-09 19:44:00 [facility] [place] Temperature Oral (F) 2017-07-09 19:44:00 100.2 F [facility] [place] Heart Rate 2017-07-09 19:44:00 87 /min [facility] Respitory Rate 2017-07-09 19:44:00 [facility] Systolic (mm Hg) 2017-07-09 12:32:00 [facility] [place] Diastolic (mm Hg) 2017-07-09 12:32:00 [facility] [place] Temperature Oral (F) 2017-07-09 12:32:00 98.4 F [facility] Heart Rate 2017-07-09 12:32:00 73 /min [facility] [place] Respitory Rate 2017-07-09 12:32:00 [facility] [place] Systolic (mm Hg) 2017-07-09 05:54:00 [facility] [place] Diastolic (mm Hg) 2017-07-09 05:54:00 [facility] Temperature Oral (F) 2017-07-09 05:54:00 98.7 F [facility] [place] Heart Rate 2017-07-09 05:54:00 66 /min [facility] [place] Respitory Rate 2017-07-09 05:54:00 [facility] [place] Systolic (mm Hg) 2017-07-08 19:00:00 [facility] Diastolic (mm Hg) 2017-07-08 19:00:00 [facility] Temperature Oral (F) 2017-07-08 19:00:00 99.1 F [facility] [place] Heart Rate 2017-07-08 19:00:00 85 /min [facility] [place] Respitory Rate 2017-07-08 19:00:00 [facility] [place] Systolic (mm Hg) 2017-07-08 16:07:00 [facility] Diastolic (mm Hg) 2017-07-08 16:07:00 [facility] Temperature Oral (F) 2017-07-08 16:07:00 99.1 F [facility] [place] Heart Rate 2017-07-08 16:07:00 68 /min [facility] Respitory Rate 2017-07-08 16:07:00 [facility] [place] Weight 2017-07-08 13:58:00 [facility] Systolic (mm Hg) 2017-07-08 06:04:00 [facility] Diastolic (mm Hg) 2017-07-08 06:04:00 [facility] [place] Temperature Oral (F) 2017-07-08 06:04:00 97.3 F [facility] Heart Rate 2017-07-08 06:04:00 77 /min [facility] [place] Respitory Rate 2017-07-08 06:04:00 [facility] [place] Systolic (mm Hg) 2017-07-07 19:42:00 [facility] Diastolic (mm Hg) 2017-07-07 19:42:00 [facility] [place] Temperature Oral (F) 2017-07-07 19:42:00 99.1 F [facility] [place] Heart Rate 2017-07-07 19:42:00 85 /min [facility] Respitory Rate 2017-07-07 19:42:00 [facility] Systolic (mm Hg) 2017-07-07 10:39:00 [facility] Diastolic (mm Hg) 2017-07-07 10:39:00 [facility] [place] Temperature Oral (F) 2017-07-07 10:39:00 98.4 F [facility] [place] Heart Rate 2017-07-07 10:39:00 59 /min [facility] Respitory Rate 2017-07-07 10:39:00 [facility] [place] Systolic (mm Hg) 2017-07-07 01:02:00 [facility] [place] Diastolic (mm Hg) 2017-07-07 01:02:00 [facility] [place] Temperature Oral (F) 2017-07-07 01:02:00 100.7 F [facility] Heart Rate 2017-07-07 01:02:00 86 /min [facility] Respitory Rate 2017-07-07 01:02:00 [facility] Systolic (mm Hg) 2017-07-06 13:21:00 [facility] [place] Diastolic (mm Hg) 2017-07-06 13:21:00 [facility] Temperature Oral (F) 2017-07-06 13:21:00 98.7 F [facility] [place] Heart Rate 2017-07-06 13:21:00 73 /min [facility] [place] Respitory Rate 2017-07-06 13:21:00 [facility] Systolic (mm Hg) 2017-07-06 05:07:00 [facility] [place] Diastolic (mm Hg) 2017-07-06 05:07:00 [facility] Temperature Oral (F) 2017-07-06 05:07:00 98.6 F [facility] [place] Heart Rate 2017-07-06 05:07:00 79 /min [facility] Respitory Rate 2017-07-06 05:07:00 [facility] Systolic (mm Hg) 2017-07-05 18:49:00 [facility] Diastolic (mm Hg) 2017-07-05 18:49:00 [facility] [place] Temperature Oral (F) 2017-07-05 18:49:00 98.4 F [facility] Heart Rate 2017-07-05 18:49:00 78 /min [facility] [place] Respitory Rate 2017-07-05 18:49:00 [facility] Systolic (mm Hg) 2017-07-05 16:26:00 [facility] [place] Diastolic (mm Hg) 2017-07-05 16:26:00 [facility] [place] Temperature Oral (F) 2017-07-05 16:26:00 98.6 F [facility] Heart Rate 2017-07-05 16:26:00 69 /min [facility] Respitory Rate 2017-07-05 16:26:00 [facility] Systolic (mm Hg) 2017-07-05 06:18:00 [facility] Diastolic (mm Hg) 2017-07-05 06:18:00 [facility] [place] Temperature Oral (F) 2017-07-05 06:18:00 98.4 F [facility] Heart Rate 2017-07-05 06:18:00 72 /min [facility] Respitory Rate 2017-07-05 06:18:00 [facility] Systolic (mm Hg) 2017-07-04 19:40:00 [facility] Diastolic (mm Hg) 2017-07-04 19:40:00 [facility] [place] Temperature Oral (F) 2017-07-04 19:40:00 98.4 F [facility] Heart Rate 2017-07-04 19:40:00 78 /min [facility] Respitory Rate 2017-07-04 19:40:00 [facility] Systolic (mm Hg) 2017-07-04 17:31:00 [facility] [place] Diastolic (mm Hg) 2017-07-04 17:31:00 [facility] Temperature Oral (F) 2017-07-04 17:31:00 98 F [facility] [place] Heart Rate 2017-07-04 17:31:00 71 /min [facility] [place] Respitory Rate 2017-07-04 17:31:00 [facility] [place] Systolic (mm Hg) 2017-07-04 13:01:54 [facility] [place] Diastolic (mm Hg) 2017-07-04 13:01:54 [facility] [place] Heart Rate 2017-07-04 13:01:54 71 /min [facility] Systolic (mm Hg) 2017-07-04 05:14:00 [facility] Diastolic (mm Hg) 2017-07-04 05:14:00 [facility] [place] Temperature Oral (F) 2017-07-04 05:14:00 98 F [facility] [place] Heart Rate 2017-07-04 05:14:00 86 /min [facility] [place] Respitory Rate 2017-07-04 05:14:00 [facility] [place] Systolic (mm Hg) 2017-07-04 00:52:00 [facility] Diastolic (mm Hg) 2017-07-04 00:52:00 [facility] [place] Systolic (mm Hg) 2017-07-03 23:48:00 [facility] [place] Diastolic (mm Hg) 2017-07-03 23:48:00 [facility] Temperature Oral (F) 2017-07-03 23:48:00 98.6 F [facility] [place] Heart Rate 2017-07-03 23:48:00 83 /min [facility] Respitory Rate 2017-07-03 23:48:00 [facility] [place] Temperature Oral (F) 2017-07-03 20:46:00 98.6 F [facility] Heart Rate 2017-07-03 20:46:00 83 /min [facility] [place] Respitory Rate 2017-07-03 20:46:00 [facility] [place] Height 2017-07-03 20:25:00 [facility] Weight 2016-01-03 18:30:00 [facility] [place] Height 2016-01-03 18:30:00 [facility] [place] Diastolic (mm Hg) 2016-01-03 18:30:00 [facility] [place] Systolic (mm Hg) 2016-01-03 18:30:00 Inder tiffanie [facility] Weight 2015-10-04 19:00:00 [facility] [place] Height 2015-10-04 19:00:00 [facility] Diastolic (mm Hg) 2015-10-04 19:00:00 [facility] [place] Systolic (mm Hg) 2015-10-04 19:00:00 [facility] [place] Weight 2015-07-07 19:15:00 [facility] Height 2015-07-07 19:15:00 [facility] [place] Weight 2015-06-07 19:00:00 [facility] Height 2015-06-07 19:00:00 [facility] Diastolic (mm Hg) 2015-06-07 19:00:00 [facility] Systolic (mm Hg) 2015-06-07 19:00:00 [facility] riaanali [facility] Weight 2015-03-08 15:00:00 [facility] Height 2015-03-08 15:00:00 [facility] Diastolic (mm Hg) 2015-03-08 15:00:00 [facility] [place] Systolic (mm Hg) 2015-03-08 15:00:00 [facility] riaanali [facility] Weight 2015-01-04 22:30:00 [facility] [place] Height 2015-01-04 22:30:00 [facility] Diastolic (mm Hg) 2015-01-04 22:30:00 [facility] Systolic (mm Hg) 2015-01-04 22:30:00 [facility] riaanali [facility] Weight 2014-12-24 21:30:00 [facility] Height 2014-12-24 21:30:00 [facility] Diastolic (mm Hg) 2014-12-24 21:30:00 [facility] Systolic (mm Hg) 2014-12-24 21:30:00 [facility] riaanali [place] Weight 2014-11-05 14:30:00 [facility] [place] Height 2014-11-05 14:30:00 [facility] Diastolic (mm Hg) 2014-11-05 14:30:00 [facility] [place] Systolic (mm Hg) 2014-11-05 14:30:00 [facility] [place] Weight 2014-11-05 13:30:00 [facility] Height 2014-11-05 13:30:00 [facility] Diastolic (mm Hg) 2014-11-05 13:30:00 [facility] Systolic (mm Hg) 2014-11-05 13:30:00 [facility] Weight 2014-03-23 16:15:00 [facility] Height 2014-03-23 16:15:00 [facility] Diastolic (mm Hg) 2014-03-23 16:15:00 [facility] [place] Systolic (mm Hg) 2014-03-23 16:15:00 [facility] [place] Weight 2014-02-04 19:30:00 [facility] [place] Height 2014-02-04 19:30:00 [facility] [place] Diastolic (mm Hg) 2014-02-04 19:30:00 [facility] Systolic (mm Hg) 2014-02-04 19:30:00 [facility] Weight 2013-12-04 14:15:00 [facility] Height 2013-12-04 14:15:00 [facility] Diastolic (mm Hg) 2013-12-04 14:15:00 [facility] Systolic (mm Hg) 2013-12-04 14:15:00 In[facility] tiffanie [place] Procedures Procedure Date / Time Performed Performing Clinician [facility] lay mammogram 2007-04-03 20:53:01 [facility] shayla bone density 2005-02-13 19:44:42 Aleshia Her mcguire Plan of Care Planned Activity Planned [...] C enter of breast (procedure) [code = 039700644] Future Scheduled [address] [facility] - Test 00:00:00 malignant neoplasm Medical C enter of colon (procedure) [code = 113830366] Encounters Start End Encounter Admission Attending Care Care Encounter Source Date/Time Date/Time Type Type Clinicians Facility Department ID 2020-08-14 Outpatient [facility] [id number] [place] 03:01:03 [facility] 2018-09-24 2018-09-22 Inpatient E [facility] MED [id number] [facility] 16:43:00 13:56:00 2016-05-17 2016-05-17 Rx nullFlavo Bria, [id number] 51-d [facility] 17:37:00 17:37:00 clarificat patti Nolasco MD [id number]-9 l ion [id number] [facility] nn 0dfa6f 2016-05-03 2016-05-03 refill nullFlavo Bria, [id number] 91-1 [facility] 15:31:00 15:31:00 request patti Nolasco MD 90c-4d9b-b l 6ba-222cad [facility] nn 9adf4c 2016-05-03 2016-05-03 refill nullFlavo Bria, c53aff 5b-1 [facility] 15:31:00 15:31:00 request patti Nolasco MD n72-9615-6 l 19e-828b33 [facility] nn 41dce9 2016-03-20 2016-03-20 refill nullFlavo Bria, zf021f e9-0 [facility] 18:57:00 18:57:00 request..jessica Nolasco MD 9w7-6l93-z l z 622-07m676 [facility] nn [id number] 6203-12-12 2016-03-20 refill nullFlavo Bria, 81q775 ea-e [facility] 18:57:00 18:57:00 request..jessica Nolasco MD o50-9560-8 l z [id number] [facility] nn 653fd6 2016-03-20 2016-03-20 refill nullFlavo Bria, 57e8d9 57-3 [facility] 18:57:00 18:57:00 request..jessica Nolasco MD g96-9220-8 l z ee9-6a7c82 [facility] nn [id number] 2562-12-01 2016-03-09 REFILL nullFlavo Bria, [id number] c6-2 [facility] 20:08:00 20:08:00 REQUEST patti Nolasco MD 905-4225-b l [id number] [facility] nn a5a2e9 2016-03-09 2016-03-09 REFILL nullMalik Fraser, fdcef4 53-b [facility] 20:08:00 20:08:00 REQUEST patti Nolasco MD 22b-46b8-a l 9u2-qa63f2 [facility] nn s4r101 2016-03-09 2016-03-09 REFILL nullMalik Fraser, 7ac9bc f9-8 [facility] 20:08:00 20:08:00 REQUEST patti Nolasco MD 23e-4586-8 l ecc-713cf6 [facility] nn 3eb5de 2016-03-09 2016-03-09 REFILL nullNicko Bria, c8fd11 e2-0 [facility] 20:08:00 20:08:00 REQUEST patti Nolasco MD 725-4a2c-9 l baf-ni156l [facility] nn a15e6b 2016-01-03 2016-01-03 3 Months nullFlavo Bria, 7534e 763-7 [facility] 19:30:00 19:30:00 (Reason: patti Nolasco MD 17a-4c29-a l Thyroid , [id number] Her mcguire Cholestero 1e350g l ) 2016-01-03 2016-01-03 3 Months nullFlavo Bria, aa97c df8-f [facility] 19:30:00 19:30:00 (Reason: patti Nolasco MD fa1-4387-b l Thyroid , 11d-aa62c3 Her mcguire Cholestero 34ac8d l ) 2016-01-03 2016-01-03 3 Months nullFlavo Bria, 3613e 86e-0 [facility] 19:30:00 19:30:00 (Reason: patti Nolasco MD s0f-6k8i-v l Thyroid , l03-49jw0l Her mcguire Cholestero e5a0db l ) 2016-01-03 2016-01-03 3 Months nullFlavo Bria, 4449e 47e-a [facility] 19:30:00 19:30:00 (Reason: patti Nolasco MD 8l2-9243-m l Thyroid , cc5-960a28 Her mcguire Cholestero 4086da l ) 2016-01-03 2016-01-03 3 Months nullFlavo Bria, 6a203 fa8-8 [facility] 18:30:00 18:30:00 (Reason: patti Nolasco MD 2ff-40df-9 l Thyroid , y88-q0597h Her mcguire Cholestero d76e66 l ) 2015-10-04 2015-10-04 3 Months nullFlavo Bria, e1015 332-3 [facility] 20:00:00 20:00:00 (Reason: patti Nolasco MD ea7-42b6-9 l HTn , ea6-x22730 Linda nn Thyroid 16c46e and cholestero l ) 2015-10-04 2015-10-04 3 Months nullFlavo Bria, df55e 51f-a [facility] 20:00:00 20:00:00 (Reason: patti Nolasco MD ec7-469b-b l HTn , e94-46bns2 Linda nn Thyroid 688665 and cholestero l ) 2015-10-04 2015-10-04 3 Months nullFlavo Bria, 6d134 17b-4 [facility] 20:00:00 20:00:00 (Reason: patti Nolasco MD 17a-498d-9 l HTn , 579-fddf90 Linda nn Thyroid 955188 and cholestero l ) 2015-10-04 2015-10-04 3 Months nullFlavo Bria, 8051e 85e-c [facility] 20:00:00 20:00:00 (Reason: patti Nolasco MD 321-4623-b l HTn , ce9-d8fb83 [facility] nn Thyroid 3fffe9 and cholestero l ) 2015-10-04 2015-10-04 3 Months nullFlavo Bria, 8487a 7f8-f [facility] 19:00:00 19:00:00 (Reason: patti Nolasco MD 08f-4508-a l HTn , 6b7-361b2r Linda nn Thyroid fx5883 and cholestero l ) 2015-10-04 2015-10-04 3 Months nullFlavo Bria, 0f9d9 737-0 [facility] 19:00:00 19:00:00 (Reason: patti Nolasco MD 15b-4e5b-a l HTn , 8z3-h3omb3 [facility] nn Thyroid e6fbd7 and cholestero l ) 2015-07-07 2015-07-07 4 Weeks nullFlavo Bria, [id number] b9-9 [facility] 20:15:00 20:15:00 (Reason: patti Nolasco MD 72e-43c7-a l Blood ec6-374645 Linda nn pressure ) 308fe3 2015-07-07 2015-07-07 4 Weeks nullFlavo Bria, 9cd3e3 bf-1 [facility] 20:15:00 20:15:00 (Reason: patti Nolasco MD 7fe-4df3-a l Blood 1l0-4636o7 Linda nn pressure ) 6m9540 2015-07-07 2015-07-07 4 Weeks nullFlavo Bria, 05b338 24-8 [facility] 20:15:00 20:15:00 (Reason: patti Nolasco MD 0bf-4152-8 l Blood 750-792707 Linda nn pressure ) 76b0b4 2015-07-07 2015-07-07 4 Weeks nullFlavo Bria, 7b4f79 0f-e [facility] 20:15:00 20:15:00 (Reason: patti Nolasco MD b75-72ok-i l Blood 0ef-5640ff Linda nn pressure ) c708fa 2015-07-07 2015-07-07 4 Weeks nullFlavo Bria, 75j518 55-2 [facility] 19:15:00 19:15:00 (Reason: patti Nolasco MD 5cb-4adc-8 l Blood bab-i07337 Linda nn pressure ) ca8fd7 2015-07-07 2015-07-07 4 Weeks nullFlavo Bria, 9b9e1e a8-b [facility] 19:15:00 19:15:00 (Reason: patti Nolasco MD db5-426c-8 l Blood 772-5fc6dd Linda nn pressure ) 4cc51f 2015-07-07 2015-07-07 4 Weeks nullFlavo Bria, 96b6b9 a9-5 [facility] 19:15:00 19:15:00 (Reason: patti Nolasco MD 69a-4ec5-9 l Blood 08f-9e64e2 Linda nn pressure ) 6be5de 2015-06-07 2015-06-07 3m x nullFlavo Bria, 1x8262 bb-7 [facility] 20:00:00 20:00:00 thyroid r Gaurav GRANT 1m4-26xu-5 l n98-4nb0f9 [facility] nn 05b8dd 2015-06-07 2015-06-07 3m x nullFlavo Bria, awg055 8b-5 [facility] 20:00:00 20:00:00 thyroid r Gaurav GRANT 0x9-53rx-4 l 6d8-1ctk58 Linda nn c6a63d 2015-06-07 2015-06-07 3m x nullFlavo Bria, 7c97be 85-8 [facility] 20:00:00 20:00:00 thyroid r Gaurav GRANT 6cf-4b9f-b l bfd-5545d2 Linda nn 8cf8c1 2015-06-07 2015-06-07 3m x nullFlavo Bria, ip3470 1c-3 [facility] 20:00:00 20:00:00 thyroid r Gaurav GRANT 4ab-40d3-8 l o4k-z00995 Linda nn cf7e1f 2015-06-07 2015-06-07 3m x nullFlavo Bria, 1215ed 22-f [facility] 19:00:00 19:00:00 thyroid r Gaurav GRANT 81c-48e9-a l 021-0d827g Linda nn bd4c6c 2015-06-07 2015-06-07 3m x nullFlavo Bria, b27ca9 b9-e [facility] 19:00:00 19:00:00 thyroid r Gaurav GRANT 04a-4689-8 l 5ff-a93b4b Linda nn 36bb32 2015-06-07 2015-06-07 3m x nullFlavo Bria, 5021b4 89-c [facility] 19:00:00 19:00:00 thyroid r Gaurav GRANT 940-489d-8 l ae8-2n809f Linda nn 84cf8c 2015-06-07 2015-06-07 3m x nullFlavo Bria, a64a79 ef-6 [facility] 19:00:00 19:00:00 thyroid r Gaurav GRANT dc9-4127-a l p37-56052i Linda nn 25q379 2015-03-08 2015-03-08 4 Months nullFlavo Bria, 33777 1d3-6 [facility] 15:00:00 15:00:00 (Reason: patti Nolasco MD 312-46ee-8 l Thyroid 088-54b0eb Linda nn and 4214fc hyperlipid emia ) 2015-03-08 2015-03-08 4 Months nullFlavo rBia, 6ce1f 091-a [facility] 15:00:00 15:00:00 (Reason: patti Nolasco MD d4y-7j9q-2 l Thyroid x82-u33m06 Linda nn and 545f6c hyperlipid emia ) 2015-03-08 2015-03-08 4 Months nullFlavo Bria, 11b79 b1d-5 [facility] 15:00:00 15:00:00 (Reason: patti Nolacso MD f74-9450-p l Thyroid 8o1-20i783 Linda nn and b18dc8 hyperlipid emia ) 2015-03-08 2015-03-08 4 Months nullFlavo Bria, 8e830 7f9-8 [facility] 15:00:00 15:00:00 (Reason: patti Nolasco MD af3-42c0-9 l Thyroid 20e-2db7b4 Linda nn and da5ea9 hyperlipid emia ) 2015-03-08 2015-03-08 4 Months nullFlavo Bria, 65617 441-6 [facility] 15:00:00 15:00:00 (Reason: patti Nolasco MD 44d-4e7e-8 l Thyroid w34-j6b57z Linda nn and 5a4c54 hyperlipid emia ) 2015-03-08 2015-03-08 4 Months nullFlavo Bria, e7e24 3e3-5 [facility] 14:00:00 14:00:00 (Reason: patti Nolasco MD t1y-0tp5-9 l Thyroid 4a1-9ux00h Linda nn and 3ij009 hyperlipid emia ) 2015-03-08 2015-03-08 4 Months nullFlavo Bria, 1349c 4b3-4 [facility] 14:00:00 14:00:00 (Reason: patti Nolasco MD 81e-42a8-a l Thyroid 08e-bd53ce Linda nn and f3b46c hyperlipid emia ) 2015-03-08 2015-03-08 4 Months nullFlavo rBia, 5e859 856-a [facility] 14:00:00 14:00:00 (Reason: r Gaurav GRANT 990-4176-9 l Thyroid 79d-3327fc Linda nn and 17bcb3 hyperlipid emia ) 2015-03-08 2015-03-08 4 Months nullFlavo Bria, c6b99 a01-9 [facility] 14:00:00 14:00:00 (Reason: r Gaurav GRANT w9x-6r23-o l Thyroid 7i9-lfzv24 Linda nn and a02bba hyperlipid emia ) 2015-02-23 2015-02-23 Unknown nullFlavo Bria, 164d94 ba-5 [facility] 15:30:00 15:30:00 r Gaurav GRANT 409-4151-b l 6g0-3708pc Linda nn 8bdf0f 2015-02-23 2015-02-23 Unknown nullFlavo Bria, 94ff27 3b-7 [facility] 15:30:00 15:30:00 r Gaurav GRANT 3y7-0253-5 l 5u7-p70nxt Linda nn 6e10f7 2015-02-23 2015-02-23 Unknown nullFlavo Bria, 5fa15e b7-f [facility] 15:30:00 15:30:00 r Gaurav GRANT 030-47e4-a l [id number] Linda nn a0ba4c 2015-02-23 2015-02-23 Unknown nullFlavo Bria, 69536i b0-3 [facility] 15:30:00 15:30:00 r Gaurav GRANT n3a-3n5c-2 l 46e-08eefa Linda nn a0afed 2015-02-23 2015-02-23 Unknown nullFlavo Bria, 7ff0e3 49-7 [facility] 15:30:00 15:30:00 r Gaurav GRANT 012-4353-a l 299-0beab9 Linda nn 4f8f58 2015-02-23 2015-02-23 Unknown nullFlavo Bria, gdz104 72-6 [facility] 15:30:00 15:30:00 r Gaurav GRANT bf7-4829-b l 964-ebe01f Linda nn js1013 2015-02-23 2015-02-23 Unknown nullFlavo Bria, [id number] e2-a [facility] 15:30:00 15:30:00 r Gaurav RGANT erin-4ad7-9 l [id number]-4504e6 Linda nn 633fea 2015-02-23 2015-02-23 Unknown nullFlavo Bria, 9839bc df-e [facility] 15:30:00 15:30:00 r Gaurav GRANT r9y-0k06-f l cca-cdaab9 Linda nn e79ab5 2015-02-23 2015-02-23 Unknown nullFlavo Bria, 91-3 [facility] 15:30:00 15:30:00 r Gaurav GRANT l36-16m7-d l [id number]-[id number] Linda nn d7c7f3 2015-02-23 2015-02-23 Unknown nullFlavo Bria, 521ce0 47-5 [facility] 14:30:00 14:30:00 r Gaurav GRANT f81-72my-2 l 3cb-19d5e3 Linda nn [id number] 2015-02-23 2015-02-23 Unknown nullFlavo Bria, sr2769 34-d [facility] 14:30:00 14:30:00 r Gaurav GRANT 807-495b-8 l 15d-4e29e0 Linda nn [id number] 2015-02-23 2015-02-23 Unknown nullFlavo Bria, [id number] 34-b [facility] 14:30:00 14:30:00 r Gaurav GRANT 78f-4e55-9 l 200-cf4d92 Linda nn 7t269f 2015-02-23 2015-02-23 Unknown nullFlavo Bria, 92b3c6 cf-0 [facility] 14:30:00 14:30:00 r Gaurav GRANT 03f-49a6-8 l [id number] Linda nn [id number] 2015-02-11 2015-02-11 Unknown nullFlavo Bria, 68415r db-3 [facility] 00:31:00 00:31:00 r Gaurav GRANT 807-427a-b l x98-2wy3k3 Ilnda nn f2ad18 2015-02-11 2015-02-11 Unknown nullFlavo Bria, c5dedb a0-0 [facility] 00:31:00 00:31:00 r Gaurav GRANT 567-4215-9 l 540-8cf7b8 Linda nn d51ff2 2015-02-11 2015-02-11 Unknown nullFlavo Bria, [id number] fa-9 [facility] 00:31:00 00:31:00 r Gaurav GRANT 120-4739-b l 129-0079af Linda nn 95fc4f 2015-02-11 2015-02-11 Unknown nullFlavo Bria, 06ea93 42-1 [facility] 00:31:00 00:31:00 r Gaurav GRANT 4o9-92l4-o l 88c-oj5052 Linda nn 6o063y 2015-02-11 2015-02-11 Unknown nullFlavo Bria, 8f5f7c 38-1 [facility] 00:31:00 00:31:00 r Gaurav GRANT 356-4309-9 l bde-50fa6a Linda nn 3ac40f 2015-02-11 2015-02-11 Unknown nullFlavo Bria, 5eff1c c7-d [facility] 00:31:00 00:31:00 r Gaurav GRANT ce9-4034-9 l 337-8ad26c Linda nn g07048 2015-02-11 2015-02-11 Unknown nullFlavo Bria, [id number] d0-8 [facility] 00:31:00 00:31:00 r Gaurav GRANT fe2-4cc6-a l 7df-49e35f Linda nn b2e5af 2015-02-11 2015-02-11 Unknown nullFlavo Bria, 4a8adc a4-8 [facility] 00:31:00 00:31:00 r Gaurav GRANT 338-4ec9-a l 7j9-32pf57 Linda nn 2fcad7 2015-02-11 2015-02-11 Unknown nullFlavo Bria, [id number] 61-3 [facility] 00:31:00 00:31:00 r Gaurav GRANT ff0-4b55-8 l [id number] Linda nn 6b82eb 2015-02-11 2015-02-11 Unknown nullFlavo Bria, 369bed b7-9 [facility] 00:31:00 00:31:00 r Gaurav GRANT [place]-4194-9 l ec4-852ceb Linda nn a4605y 2015-02-11 2015-02-11 Unknown nullFlavo Bria, 315f29 2a-0 [facility] 00:31:00 00:31:00 r Gaurav GRANT cf9-4538-a l 79d-f5e2d1 Linda nn 5f9bb2 2015-02-11 2015-02-11 Unknown nullFlavo Bria, f574d9 b8-1 [facility] 00:31:00 00:31:00 r Gaurav GRANT 129-4d70-b l 7s7-f8334i Linda nn c93620 2015-02-11 2015-02-11 Unknown nullFlavo Bria, cb5db9 f8-3 [facility] 00:31:00 00:31:00 r Gaurav GRANT a4j-2xre-5 l 85b-6ecc81 Linda nn 377ea3 2015-02-10 2015-02-10 Unknown nullFlavo Bria, 76858n bc-0 [facility] 23:31:00 23:31:00 r Gaurav GRANT 094-45f1-b l eae-k3g477 Linda nn 55a4c7 2015-02-10 2015-02-10 Unknown nullFlavo Bria, e0b4ae 48-d [facility] 23:31:00 23:31:00 r Gaurav GRANT 832-4fe1-9 l 737-7c81c2 Linda nn x8878s 2015-02-10 2015-02-10 Unknown nullFlavo Bria, 17dd62 30-d [facility] 23:31:00 23:31:00 r Gaurav GRANT 029-48b9-8 l 028-b2f678 Linda nn 1c5acb 2015-02-10 2015-02-10 Unknown nullFlavo Bria, 0562b1 c8-e [facility] 23:31:00 23:31:00 r Gaurav GRANT 40b-4ec5-a l 70b-9a7b6f Linda nn 725140 1220-11-02 2015-02-08 LAB ORDER nullFlavo Bria, 687 z40gz-4 [facility] 22:08:00 22:08:00 r Gaurav GRANT 570-4722-9 l 92e-f7af1f Linda nn 1p349z 2015-02-08 2015-02-08 LAB ORDER nullFlavo Bria, c86 264u7-b [facility] 22:08:00 22:08:00 r Gaurav GRANT acc-4ef9-8 l ef3-454136 Linda nn a07f05 2015-02-08 2015-02-08 LAB ORDER Sonya Fraser, b46 e3vs5-6 [facility] 22:08:00 22:08:00 r Gaurav GRANT n36-0335-r l o1x-7i828o Linda nn 9adb24 2015-02-08 2015-02-08 LAB ORDER Sonya Fraser, 1db 123ed-3 [facility] 22:08:00 22:08:00 r Gaurav GRNAT 0t1-54w6-7 l 243-68i094 Linda nn 1c06e1 2015-02-08 2015-02-08 LAB ORDER Sonya Fraser, ee4 78edc-f [facility] 22:08:00 22:08:00 r Gaurav GRANT k71-1730-8 l 163-e3c99e Linda nn t0g021 2015-02-08 2015-02-08 LAB ORDER Sonya Fraser, 37c 2u847-n [facility] 22:08:00 22:08:00 r Gaurav GRANT f4f-2376-z l 0y3-1v4252 Linda nn 0eb1be 2015-02-08 2015-02-08 LAB ORDER Sonya Fraser, 4ab s45lq-o [facility] 22:08:00 22:08:00 r Gaurav GRANT ae7-492e-b l a79-s1l9u8 Linda nn aa65be 2015-02-08 2015-02-08 LAB ORDER Sonya Fraser, 55a aca14-2 [facility] 22:08:00 22:08:00 r Gaurav GRANT 6a0-9g4m-v l 388-759034 Linda nn d0f3c3 2015-02-08 2015-02-08 LAB ORDER Sonya Fraser e4a s73a7-k [facility] 22:08:00 22:08:00 r Gaurav GRANT b90-34p6-y l 8m2-9s12nz Linda nn 865c08 2015-02-08 2015-02-08 LAB ORDER Sonya Fraser, f94 93325-7 [facility] 22:08:00 22:08:00 r Gaurav GRANT fc2-4369-b l cca-12600x Linda nn k3q101 2015-02-08 2015-02-08 LAB ORDER nullMalik Fraser, 645 3bhj7-6 [facility] 22:08:00 22:08:00 r Gaurav GRANT 267-44a7-a l 606-l8655p Linda nn y2g090 2015-02-08 2015-02-08 LAB ORDER nullFlavo Bria, c92 a237h-9 [facility] 22:08:00 22:08:00 r Gaurav GRANT 701-4e4d-9 l 615-8lh619 Linda nn 6dr081 2015-02-08 2015-02-08 LAB ORDER nullFlavo Bria, 06b 91p22-6 [facility] 22:08:00 22:08:00 r Gaurav GRANT 235-4f59-8 l 7d3-15g240 Linda nn 69a5b7 2015-02-08 2015-02-08 LAB ORDER nullFlavo Bria, ff7 02acb-4 [facility] 22:08:00 22:08:00 r Gaurav GRANT 5cc-4428-a l f2j-q06l27 Linda nn 846af4 2015-02-08 2015-02-08 LAB ORDER nullFlavo Bria, 90a 4754c-d [facility] 21:08:00 21:08:00 r Gaurav GRANT fea-435f-a l ffb-9f3b23 Linda nn 4cd7d4 2015-02-08 2015-02-08 LAB ORDER nullFlavo Bria, 2fb p291j-8 [facility] 21:08:00 21:08:00 r Gaurav GRANT fec-42ec-a l 456-a931cd Linda nn 2a32ba 2015-02-08 2015-02-08 LAB ORDER nullFlavo Bria, f4e 7ea66-7 [facility] 21:08:00 21:08:00 r Gaurav GRANT 05f-49ec-8 l 1t9-1k1833 Linda nn 708526 9810-11-02 2015-02-08 LAB ORDER nullFlavreji Fraser, 5b8 adfb7-e [facility] 21:08:00 21:08:00 r Gaurav GRANT 323-4c09-9 l 0z0-18ip40 Linda nn x8138i 2015-02-05 2015-02-05 Unknown nullFlavo Bria, 4498e5 16-c [facility] 21:25:00 21:25:00 r Gaurav GRANT 716-4445-a l 214-559db7 Linda nn 0c33c4 2015-02-05 2015-02-05 Unknown nullFlavo Bria, 514f25 47-a [facility] 21:25:00 21:25:00 r Gaurav GRANT 492-4ddc-8 l 5o3-r0w38z Linda nn 680ba2 2015-02-05 2015-02-05 Unknown nullFlavo Bria, 6918b5 03-2 [facility] 21:25:00 21:25:00 r Gaurav GRANT x34-1z16-a l 123-2bbdbc Linda nn cc47c3 2015-02-05 2015-02-05 Unknown nullFlavo Bria, 3u9638 e0-d [facility] 21:25:00 21:25:00 r Gaurav GRANT 4ea-4ecb-8 l eff-a2bdfa Linda nn 021ea2 2015-02-05 2015-02-05 Unknown nullFlavo Bria, 7b59d7 bb-9 [facility] 21:25:00 21:25:00 r Gaurav GRANT 304-48ee-9 l bf0-424166 Linda nn xu4438 2015-02-05 2015-02-05 Unknown nullFlavo Bria, 1d97e7 e9-8 [facility] 21:25:00 21:25:00 r Gaurav GRANT f6x-6j9g-z l 3t2-s21102 Linda nn 95feb8 2015-02-05 2015-02-05 Unknown nullFlavo Bria, 5271c5 0f-e [facility] 21:25:00 21:25:00 r Gaurav GRANT 360-4476-a l 1bc-c184fb Linda nn 525881 4476-10-30 2015-02-05 Unknown nullFlavo Bria, 451ee3 8f-3 [facility] 21:25:00 21:25:00 r Gaurav GRANT 49a-4a70-a l 0z6-9r6y65 Linda nn 1701b5 2015-02-05 2015-02-05 Unknown nullFlavo Bria, u1974m b3-5 [facility] 21:25:00 21:25:00 r Gaurav GRANT db7-49a6-8 l fe4-59i215 Linda nn 601539 9821-10-30 2015-02-05 Unknown nullFlavo Bria, 41634t 19-6 [facility] 21:25:00 21:25:00 r Gaurav GRANT l2d-2z16-7 l 9y3-i1b3b7 Linda nn 6s350p 2015-02-05 2015-02-05 Unknown nullFlavo Bria, i60357 37-9 [facility] 21:25:00 21:25:00 r Gaurav GRANT 9df-48f6-a l 601-5f27b5 Linda nn 1c85d3 2015-02-05 2015-02-05 Unknown nullFlavo Bria, 84f2f7 08-3 [facility] 21:25:00 21:25:00 r Gaurav GRANT 0s7-6188-0 l 652-1o202k Linda nn 38dfa8 2015-02-05 2015-02-05 Unknown nullFlavo Bria, e430b7 0b-d [facility] 21:25:00 21:25:00 r Gaurav GRANT ffc-425f-a l db7-88baa9 Linda nn a63f25 2015-02-05 2015-02-05 Unknown nullFlavo Bria, eeb4a4 69-2 [facility] 21:25:00 21:25:00 r Gaurav GRANT b48-7dx8-o l 5bf-c41db0 Linda nn qp3928 2015-02-05 2015-02-05 Unknown nullFlavo Bria, 0529a2 47-2 [facility] 20:25:00 20:25:00 r Gaurav GRANT 3a7-5355-9 l 7w4-w76223 Linda nn 2c5dfe 2015-02-05 2015-02-05 Unknown nullFlavo Bria, 5yk760 c4-c [facility] 20:25:00 20:25:00 r Gaurav GRANT aec-40ea-8 l 4o9-906qo9 Linda nn da64f3 2015-02-05 2015-02-05 Unknown nullFlavo Bria, cx6586 2a-a [facility] 20:25:00 20:25:00 r Gaurav GRANT w43-70a5-9 l 2fd-a086cd Linda nn 57ab13 2015-02-05 2015-02-05 Unknown nullFlavo Bria, 7c771v 82-5 [facility] 20:25:00 20:25:00 r Gaurav GRANT o7r-99xa-4 l dd4-2ef3cd Linda nn bfbca7 2015-02-04 2015-02-04 lab order/ nullFlavo Bria, 7e3 7q240-9 [facility] 20:23:00 20:23:00 x-ray r Gaurav GRANT 032-475b-9 l 6ce-wuk468 Linda nn 44814k 2015-02-04 2015-02-04 lab order/ nullFlavo Bria, 582 p1067-4 [facility] 20:23:00 20:23:00 x-ray r Gaurav GRANT 0q7-82o8-d l fe9-7e21d7 Linda nn 4acf3f 2015-02-04 2015-02-04 lab order/ nullFlavo Bria, 6b9 0116d-d [facility] 20:23:00 20:23:00 x-ray r Gaurav GRANT 3bb-4d9a-a l 2bb-ff2b3f Linda nn u2516m 2015-02-04 2015-02-04 lab order/ nullFlavo Bria, 8b6 0k842-p [facility] 20:23:00 20:23:00 x-ray r Gaurav GRANT 27d-4a6f-a l ae4-7ft789 Linda nn m92909 2015-02-04 2015-02-04 lab order/ nullFlavo Bria, b8b 6p42b-3 [facility] 20:23:00 20:23:00 x-ray r Gaurav GRANT fe6-4444-a l 678-699e08 Linda nn 6f35a0 2015-02-04 2015-02-04 lab order/ nullFlavo Bria, ccd 1962c-6 [facility] 20:23:00 20:23:00 x-ray r Gaurav GRANT 1f8-180p-t l m27-f22ga1 Linda nn e147de 2015-02-04 2015-02-04 lab order/ nullFlavo Bria, 8a5 30c03-5 [facility] 20:23:00 20:23:00 x-ray r Gaurav GRANT y4r-6bl8-8 l 8h8-63p13d Linda nn d994e5 2015-02-04 2015-02-04 lab order/ nullFlavo Bria, cec 09wm5-s [facility] 20:23:00 20:23:00 x-ray r Gaurav GRANT f43-2908-6 l u38-74m155 Linda nn e873a3 2015-02-04 2015-02-04 lab order/ nullFlavo Bria, 1d1 fo11e-f [facility] 20:23:00 20:23:00 x-ray r Gaurav GRANT 298-4f0c-a l m3u-q02xb8 Linda nn 69o894 2015-02-04 2015-02-04 lab order/ nullFlavo Bria, c7b q38rl-6 [facility] 20:23:00 20:23:00 x-ray r Gaurav GRANT c3y-1r39-0 l 25c-0038af Linda nn f2b3aa 2015-02-04 2015-02-04 lab order/ nullFlavo Bria, 4f7 s1a40-1 [facility] 20:23:00 20:23:00 x-ray r Gaurav GRANT 3r3-89vd-7 l e3c-z0w3u9 Linda nn 9e4e7b 2015-02-04 2015-02-04 lab order/ nullFlavo Bria, cd5 5865a-a [facility] 20:23:00 20:23:00 x-ray r Gaurav GRANT 3cb-4592-b l 9j3-y26og8 Linda nn f1b6ad 2015-02-04 2015-02-04 lab order/ nullFlavo Bria, 50c 19576-0 [facility] 20:23:00 20:23:00 x-ray r Gaurav GRANT 842-4673-a l w0k-o23455 Linda nn 608ee9 2015-02-04 2015-02-04 lab order/ nullFlavo Bria, 65e acbcf-8 [facility] 20:23:00 20:23:00 x-ray r Gaurav GRANT 130-4219-a l a29-7d9m20 Linda nn 2f6d3b 2015-02-04 2015-02-04 lab order/ nullFlavo Bria, a4d ev35l-s [facility] 19:23:00 19:23:00 x-ray r Gaurav GRANT fcb-4f4b-b l 63f-0321d4 Linda nn cea2ee 2015-02-04 2015-02-04 lab order/ nullFlavo Bria, 6df r88gi-6 [facility] 19:23:00 19:23:00 x-ray r Gaurav GRANT g34-2155-c l 4cd-5f1ca9 Linda nn 9fb13d 2015-02-04 2015-02-04 lab order/ nullFlavo Bria, 1a1 c85yw-7 [facility] 19:23:00 19:23:00 x-ray r Gaurav GARNT 885-40d4-9 l 335-e8f9fc Linda nn 6c2a05 2015-02-04 2015-02-04 lab order/ nullFlavo Bria, 684 2j34d-c [facility] 19:23:00 19:23:00 x-ray r Gaurav GRANT 17e-47f4-b l v87-er399d Linda nn dd68e0 2015-02-03 2015-02-03 release nullFlavo Bria, t04751 e5-f [facility] 23:01:00 23:01:00 for sx r Gaurav GRANT 3z6-0dcz-7 l be5-b1f5ab Linda nn 21x804 2015-02-03 2015-02-03 release nullFlavo Bria, 0d8a0c 8d-f [facility] 23:01:00 23:01:00 for sx r Gaurav GRANT 5ef-48b5-b l 5k5-kt6350 Linda nn 76c69a 2015-02-03 2015-02-03 release nullFlavo Bria, 33bdd0 a2-b [facility] 23:01:00 23:01:00 for sx r Gaurav GRANT c5d-6a0s-8 l 6u7-5g2w45 Linda nn 7a80e7 2015-02-03 2015-02-03 release nullFlavo Bria, d89e26 e8-c [facility] 23:01:00 23:01:00 for sx r Gaurav GRANT db0-404e-9 l 2q2-d7n8j3 Linda nn n10192 2015-02-03 2015-02-03 release nullFlavo Bria, 1a99fc be-0 [facility] 23:01:00 23:01:00 for sx r Gaurav GRANT 0k2-1833-6 l 04c-9288dc Linda nn 660845 7623-10-28 2015-02-03 release nullFlavo Bria, 9909d6 8e-3 [facility] 23:01:00 23:01:00 for sx r Gaurav GRANT 348-4290-8 l 318-63t524 Linda nn 55975w 2015-02-03 2015-02-03 release nullFlavo Bria, 606c1f 8e-a [facility] 23:01:00 23:01:00 for sx r Gaurav GRANT 682-4889-9 l 73d-6324ec Linda nn 154e93 2015-02-03 2015-02-03 release nullFlavo Bria, a87c6f 4f-6 [facility] 23:01:00 23:01:00 for sx r Gaurav GRANT g90-3537-m l h2r-0709v2 Linda nn 53f2aa 2015-02-03 2015-02-03 release nullFlavo Bria, l96288 fd-9 [facility] 23:01:00 23:01:00 for sx r Gaurav GRANT 319-42e4-9 l ff9-35f09c Linda nn k5742x 2015-02-03 2015-02-03 release nullFlavo Bria, d7deb8 d1-b [facility] 23:01:00 23:01:00 for sx r Gaurav GRANT 9g8-1871-p l 10d-0ca3ef Linda nn 98bcf8 2015-02-03 2015-02-03 release nullFlavo Bria, 7e40cd 04-3 [facility] 23:01:00 23:01:00 for sx r Gaurav GRANT 7af-4454-a l i3s-y17w22 Linda nn 230fee 2015-02-03 2015-02-03 release nullFlavo Bria, v26401 2c-f [facility] 23:01:00 23:01:00 for sx r Gaurav GRANT 156-4b63-b l 639-48f8a2 Linda nn 00a2ef 2015-02-03 2015-02-03 release nullFlavo Bria, 45z863 b9-6 [facility] 23:01:00 23:01:00 for sx r Gaurav GRANT 039-46c5-a l 0dd-ac6d1f Linda nn b032d7 2015-02-03 2015-02-03 release nullFlavo Bria, u9675e 08-c [facility] 23:01:00 23:01:00 for sx r Gaurav GRANT 50a-4fa1-8 l t3j-t13486 Linda nn 4c6f5b 2015-02-03 2015-02-03 release nullFlavo Bria, c0aa40 bb-2 [facility] 22:01:00 22:01:00 for sx r Gaurav GRANT ce0-4bd8-8 l 9x6-09rp80 Linda nn 753828 1503-10-28 2015-02-03 release nullFlavo Bria, 37afc2 cd-4 [facility] 22:01:00 22:01:00 for sx r Gaurav GRANT 5cb-4266-9 l j5w-j679er Linda nn fefb36 2015-02-03 2015-02-03 release nullFlavo Bria, 3a3422 48-1 [facility] 22:01:00 22:01:00 for sx r Gaurav GRANT 13b-4715-8 l 253-89w392 Linda nn 299cc9 2015-02-03 2015-02-03 release nullFlavo Bria, 89c50a d6-8 [facility] 22:01:00 22:01:00 for sx r Gaurav GRANT 448-4d8e-b l ac0-22ac5e Linda nn l1990n 2015-01-04 2015-01-04 [place] [facility] nullFlavo Bria, 33fd9 1c6-9 [facility] 22:30:00 22:30:00 r Gaurav GRANT s48-307o-d l fa9-f8a32b Linda nn 9f2e82 2015-01-04 2015-01-04 [place] [facility] nullFlavo Bria, f5807 17e-b [facility] 22:30:00 22:30:00 r Gaurav GRANT s6j-8ye4-8 l bbf-8b9ee8 Linda nn ebbbe3 2015-01-04 2015-01-04 [place] [facility] nullFlavo Bria, 54cef 5fe-7 [facility] 22:30:00 22:30:00 r Gaurav GRANT 740-43f9-a l 6y5-j2dnhl Linda nn ef3bbf 2015-01-04 2015-01-04 [place] [facility] nullFlavo Bria, f0ef7 206-7 [facility] 22:30:00 22:30:00 r Gaurav GRANT 269-46fd-9 l 951-95207t Linda nn 882875 4702-09-28 2015-01-04 [place] [facility] nullFlavo Bria, 92d98 208-9 [facility] 22:30:00 22:30:00 r Gaurav GRANT 904-4259-9 l d6t-36qnu7 Linda nn mjo040 2015-01-04 2015-01-04 [place] [facility] nullFlavo Bria, 22d92 5d4-e [facility] 22:30:00 22:30:00 r Gaurav GRANT l2m-718j-8 l 70e-4d3d30 Linda nn e5c606 2015-01-04 2015-01-04 [place] [facility] nullFlavo Bria, bdbc1 e80-c [facility] 22:30:00 22:30:00 r Gaurav GRANT a41-45je-8 l 2i7-11s67t Linda nn bc4f46 2015-01-04 2015-01-04 [place] [facility] nullFlavo Bria, cfe5b 85b-6 [facility] 21:30:00 21:30:00 r Gaurav GRANT 76a-4458-a l 67a-0vx078 Linda nn 4ff2e1 2015-01-04 2015-01-04 [place] [facility] nullFlavo Bria, 68827 914-1 [facility] 21:30:00 21:30:00 r Gaurav GRANT y95-18bj-n l 098-6f1b8d Linda nn b9ab77 2015-01-04 2015-01-04 [place] [facility] nullFlavo Bria, 67a75 2b6-d [facility] 21:30:00 21:30:00 r Gaurav GRANT bd6-4d9e-8 l 997-4522a5 Linda nn 02abea 2015-01-04 2015-01-04 [place] [facility] nullFlavo Bria, 75b22 c7b-b [facility] 21:30:00 21:30:00 r Gaurav GRANT dc8-42e9-b l 8t2-28j928 Linda nn 795a90 2014-12-24 2014-12-24 Needs nullFlavo Bria, 3bda8a 55-a [facility] 21:30:00 21:30:00 Sleeping r Gaurav GRANT 287-4650-8 l meds 82d-8bd2ed Linda patton go2685 2014-12-24 2014-12-24 Needs nullFlavo Bria, 0u6119 81-b [facility] 21:30:00 21:30:00 Sleeping r Gaurav GRANT u78-0cb9-i l meds i75-2e3v6q Linda nn 5749c9 2014-12-24 2014-12-24 Needs nullFlavo Bria, 318b64 fc-4 [facility] 21:30:00 21:30:00 Sleeping r Gaurav GRANT 413-42f2-b l meds 475-p1i428 Linda nn o2d169 2014-12-24 2014-12-24 Needs nullFlavo Bria, e797e0 17-7 [facility] 21:30:00 21:30:00 Sleeping r Gaurav GRANT s17-0468-8 l meds afc-51dea0 Linda nn jmb732 2014-12-24 2014-12-24 Needs nullFlavo Bria, bjx433 9d-e [facility] 21:30:00 21:30:00 Sleeping r Gaurav GRANT aa1-4467-b l meds 280-cafcf0 Linda nn 3c1f57 2014-12-24 2014-12-24 Needs nullFlavo Bria, 792eeb 6f-b [facility] 21:30:00 21:30:00 Sleeping r Gaurav GRANT 01f-468c-a l meds b97-008x5j Linda nn 34ae6c 2014-12-24 2014-12-24 Needs nullFlavo Bria, 634426 e7-4 [facility] 21:30:00 21:30:00 Sleeping r Gaurav GRANT 965-4d93-a l meds 00c-a1af2c Linda nn e5b17d 2014-12-24 2014-12-24 Needs nullFlavo Bria, e953f2 9f-8 [facility] 20:30:00 20:30:00 Sleeping r Gaurav GRANT 4b3-43z2-0 l meds 7j1-0k5sc7 Linda nn 6a0498 2014-12-24 2014-12-24 Needs nullFlavo Bria, t79481 e5-b [facility] 20:30:00 20:30:00 Sleeping r Gaurav GRANT aeb-4b2d-9 l meds 6e8-j843s7 Linda nn 029b23 2014-12-24 2014-12-24 Needs nullFlavo Bria, c8c05a 94-7 [facility] 20:30:00 20:30:00 Sleeping r Gaurav GRANT j62-4053-6 l meds 141-9f53b9 Linda nn v2148p 2014-12-24 2014-12-24 Needs nullFlavo Bria, 38156u af-e [facility] 20:30:00 20:30:00 Sleeping r Gaurav GRANT ffc-47c8-8 l meds 12c-b9d17f Linda nn aeee78 2014-11-17 2014-11-17 refill nullFlavo Bria, q4z261 dd-1 [facility] 16:01:00 16:01:00 r Gaurav GRANT fd8-457d-9 l dab-434a13 Linda nn 703f0b 2014-11-17 2014-11-17 refill nullFlavo Bria, d8efe3 79-3 [facility] 16:01:00 16:01:00 r Gaurav GRANT 4y7-3n2x-s l 9w9-f11668 Linda nn 94812z 2014-11-17 2014-11-17 refill nullFlavo Bria, 10f792 be-9 [facility] 16:01:00 16:01:00 r Gaurav GRANT eec-4aa0-8 l 7dd-375177 Linda nn dc91dd 2014-11-17 2014-11-17 refill nullFlavo Bria, 2g2975 e4-4 [facility] 16:01:00 16:01:00 r Gaurav GRANT y9u-9r37-2 l 371-472abd Linda nn 515238 8920-08-11 2014-11-17 refill nullFlavo Bria, 1bbbbc 0b-2 [facility] 16:01:00 16:01:00 r Gaurav GRANT galindo-47b8-9 l df1-6eede1 Linda nn 224eed 2014-11-17 2014-11-17 refill nullFlavo Bria, d81ea3 2a-1 [facility] 16:01:00 16:01:00 r Gaurav GRANT 7cc-496d-9 l 70b-9c8194 Linda nn 35fef5 2014-11-17 2014-11-17 refill nullFlavo Bria, a5f7bb 76-e [facility] 16:01:00 16:01:00 r Gaurav GRANT 651-4d16-9 l cc6-c7b4f1 Linda nn c244a4 2014-11-17 2014-11-17 refill nullFlavo Bria, 63005p 68-7 [facility] 16:01:00 16:01:00 r Gaurav GRANT z8n-0adr-5 l p82-6ipf0a Linda nn m6r805 2014-11-17 2014-11-17 refill nullFlavo Bria, 69a53f 9f-7 [facility] 16:01:00 16:01:00 r Gaurav GRANT 9w3-75j9-v l bee-5fefeb Linda nn e56e65 2014-11-17 2014-11-17 refill nullFlavo Bria, 2325ae c9-c [facility] 16:01:00 16:01:00 r Gaurav GRANT 36c-48fa-8 l ac5-h65896 Ilnda nn f2d2ad 2014-11-17 2014-11-17 refill nullFlavo Bria, r78187 df-f [facility] 16:01:00 16:01:00 r Gaurav GRANT 683-4fe4-9 l 784-6047ae Linda nn 8u8028 2014-11-17 2014-11-17 refill nullFlavo Bria, 2a5622 ed-3 [facility] 16:01:00 16:01:00 r Gaurav GRANT 6k9-0329-7 l n9p-17zm63 Linda nn 2b8fc7 2014-11-17 2014-11-17 refill nullFlavo Bria, 3a47ad 53-2 [facility] 16:01:00 16:01:00 r Gaurav GRANT n8i-5596-u l t5x-pn40h1 Linda nn d7edfa 2014-11-17 2014-11-17 refill nullFlavo Bria, q20554 b0-8 [facility] 16:01:00 16:01:00 r Gaurav GRANT 682-41f0-8 l o0e-hixo7l Linda nn 33dded 2014-11-17 2014-11-17 refill nullFlavo Bria, b73d8d b9-9 [facility] 15:01:00 15:01:00 r Gaurav GRANT aff-4a63-8 l 93a-cbe3a7 Linda nn d2a2b8 2014-11-17 2014-11-17 refill nullFlavo Bria, dca4eb 9d-f [facility] 15:01:00 15:01:00 r Gaurav GRANT b83-30ap-v l fea-51b2ad Linda nn 0t609s 2014-11-17 2014-11-17 refill nullFlavo Bria, 169e83 fa-1 [facility] 15:01:00 15:01:00 r Gaurav GRANT 1af-42b8-b l 783-01ea95 Linda nn 9d9f5a 2014-11-17 2014-11-17 refill nullFlavo Bria, l8d922 02-c [facility] 15:01:00 15:01:00 r Gaurav GRANT 57e-441e-a l p56-d009y0 Linda nn f09a14 2014-11-17 2014-11-17 refill nullFlavo Brai, 73973m 61-6 [facility] 15:01:00 15:01:00 r Gaurav GRANT 5cc-458f-b l fb5-fb76a1 Linda nn 1f071v 2014-11-17 2014-11-17 refill nullFlavo Bria, d745a8 42-6 [facility] 15:01:00 15:01:00 r Gaurav MD t6v-6460-q l fcc-9e63b8 Linda nn 0f06f9 2014-11-05 2014-11-05 4 Months nullFlavreji Fraser, e4aa3 177-b [facility] 14:30:00 14:30:00 (Reason: patti Nolasco MD z60-9y45-1 l Thyroid dc2-6cf4a9 Linda nn and 03d96a Triglyceri anupama ) 2014-11-05 2014-11-05 4 Months nullFlavreji Fraser, be23a 0e2-b [facility] 14:30:00 14:30:00 (Reason: patti Nolasco MD 1u3-680f-1 l Thyroid 073-380af9 Linda nn and b087e4 Triglyceri anupama ) 2014-11-05 2014-11-05 4 Months nullMalik Fraser, aa958 998-f [facility] 14:30:00 14:30:00 (Reason: patti Nolasco MD 414-4492-a l Thyroid p62-73358g Linda nn and 0md137 Triglyceri anupama ) 2014-11-05 2014-11-05 4 Months nullFlavreji Fraser, 91a5d 25f-2 [facility] 14:30:00 14:30:00 (Reason: patti Nolasco MD z29-7a0o-5 l Thyroid arnol-6by658 Linda nn and 78752e Triglyceri anupama ) 2014-11-05 2014-11-05 4 Months nullFlavreji Fraser, 20a70 fb2-d [facility] 14:30:00 14:30:00 (Reason: patti Nolasco MD 35f-4504-b l Thyroid cac-c36e98 Linda nn and [id number] Triglyceri anupama ) 2014-11-05 2014-11-05 4 Months nullFlavo Bria, 226da feb-4 [facility] 14:30:00 14:30:00 (Reason: patti Nolasco MD 6u8-3138-m l Thyroid w4g-jou33r Linda nn and 4c64ed Triglyceri aunpama ) 2014-11-05 2014-11-05 4 Months nullFlavreji Fraser, ec187 be3-f [facility] 14:30:00 14:30:00 (Reason: patti Nolasco MD 9h0-62lz-j l Thyroid 47c-44029k Linda nn and y58895 Triglyceri anupama ) 2014-11-05 2014-11-05 4 Months nullFlavo Bria, 1625b 686-9 [facility] 14:30:00 14:30:00 (Reason: patti Nolasco MD e2v-4m2b-g l Thyroid ff8-o34535 Linda nn and 3p4456 Triglyceri anupama ) 2014-11-05 2014-11-05 4 Months nullFlavo Bria, 25837 8aa-0 [facility] 13:30:00 13:30:00 (Reason: patti Nolasco MD 175-4190-9 l Thyroid l5i-tp02b1 Linda nn and a8c7a7 Triglyceri anupama ) 2014-11-05 2014-11-05 4 Months nullFlavo Bria, 658f2 829-5 [facility] 13:30:00 13:30:00 (Reason: patti Nolasco MD 08b-498a-b l Thyroid cbd-0ff2de Linda nn and 481e69 Triglyceri anupama ) 2014-11-05 2014-11-05 4 Months nullFlavo Bria, 33e19 2a0-c [facility] 13:30:00 13:30:00 (Reason: patti Nolasco MD 826-473b-9 l Thyroid 9d4-0ogr7a Linda nn and 6e5c44 Triglyceri anupama ) 2014-11-05 2014-11-05 4 Months nullFlavo Bria, 896c4 c93-9 [facility] 13:30:00 13:30:00 (Reason: patti Nolasco MD 6af-4b8b-9 l Thyroid 915-bf8abc Linda nn and 77937q Triglyceri anupama ) 2014-11-05 2014-11-05 4 Months nullFlavo Bria, 8a0de ca5-4 [facility] 13:30:00 13:30:00 (Reason: patti Nolasco MD 5h8-39pq-r l Thyroid f8e-q4kye9 Linda nn and aaf21a Triglyceri anupama ) 2014-11-05 2014-11-05 4 Months nullFlavo Bria, f6cd5 58b-7 [facility] 13:30:00 13:30:00 (Reason: patti Nolasco MD 31c-41fd-b l Thyroid 74e-1e3e37 Linda nn and c49bf5 Triglyceri anupama ) 2014-07-06 2014-07-06 2 Weeks nullFlavo Bria, 78b94e 5d-3 [facility] 15:15:00 15:15:00 (Reason: patti Nolasco MD s1a-5536-9 l [facility] 800[facility] 2014-07-06 2014-07-06 2 Weeks nullFlavo Bria, 6e8cf6 25-9 [facility] 15:15:00 15:15:00 (Reason: patti Nolasco MD 7s0-22n9-b l [facility] 5y4-3407so [facility] ) 0c3599 2014-07-06 2014-07-06 2 Weeks nullFlavo Bria, 1ws989 9b-6 [facility] 15:15:00 15:15:00 (Reason: patti Nolasco MD 865-4ac3-8 l [facility] x5m-6y8610 [facility] ) c1ca66 2014-07-06 2014-07-06 2 Weeks nullFlavo Bria, 46a97c b1-2 [facility] 15:15:00 15:15:00 (Reason: patti Nolasco MD z7h-2873-c l [facility] s9n-5xag9u [facility] ) 76e3fa 2014-07-06 2014-07-06 2 Weeks nullFlavo Bira, i11474 3e-c [facility] 15:15:00 15:15:00 (Reason: patti Nolasco MD fb3-433f-a l Bronchitis 33f-e27aca [facility] ) zj529j 2014-07-06 2014-07-06 2 Weeks nullFlavo Bria, 2845f6 21-2 [facility] 15:15:00 15:15:00 (Reason: patti Nolasco MD 0o8-325m-8 l Bronchitis aa7-jmb897 [facility] ) a28dcd 2014-07-06 2014-07-06 2 Weeks nullFlavo Bria, 02e0a9 48-2 [facility] 15:15:00 15:15:00 (Reason: patti Nolasco MD dca-4966-9 l [facility]ch[facility] 02e[facility]28b9ef [facility] ) d50a77 2014-07-06 2014-07-06 2 Weeks nullFlavo Bria, 53dcba 0c-0 [facility] 15:15:00 15:15:00 (Reason: patti Nolasco MD 42f-4e35-b l Bronchitis 6d2-wm60yr [facility] ) f301c7 2014-07-06 2014-07-06 2 Weeks nullFlavo Bria, 124a2f 06-e [facility] 15:15:00 15:15:00 (Reason: patti Nolasco MD 7j3-3766-d l Bronchitis 9w6-045ef4 [facility] ) 2mk243 2014-07-06 2014-07-06 2 Weeks nullFlavo Bria, 07a74f e4-1 [facility] 15:15:00 15:15:00 (Reason: patti Nolasco MD 839-4154-a l Bronchitis fa0-e8x142 [facility] ) aa72e5 2014-07-06 2014-07-06 2 Weeks nullFlavo Bria, c895af 6a-c [facility] 15:15:00 15:15:00 (Reason: patti Nolasco MD 0s8-2jxf-5 l Bronchitis 1eb-592e06 [facility] ) usp910 2014-07-06 2014-07-06 2 Weeks nullFlavo Bria, 26a2f1 38-b [facility] 15:15:00 15:15:00 (Reason: patti Nolasco MD u27-2m12-5 l Bronchitis 2k0-45w8yj [facility] ) e622f5 2014-07-06 2014-07-06 2 Weeks nullFlavo Bria, e9c59c 64-2 [facility] 15:15:00 15:15:00 (Reason: patti Nolasco MD 87f-485b-8 l Bronchitis 37c-0c78de [facility] ) [id number] 4933-03-30 2014-07-06 2 Weeks nullFlavo Bria, b151cc 0c-d [facility] 15:15:00 15:15:00 (Reason: patti Nolasco MD 7df-4131-9 l Bronchitis z20-7563m1 [facility] ) 42l089 2014-07-06 2014-07-06 2 Weeks nullFlavo Bria, 80f7ce 10-9 [facility] 14:15:00 14:15:00 (Reason: patti Nolasco MD 1f2-3z2v-0 l Bronchitis 60f-7g6824 [facility] ) 2n1212 2014-07-06 2014-07-06 2 Weeks nullFlavo Bria, 445c9e e4-e [facility] 14:15:00 14:15:00 (Reason: patti Nolasco MD ab4-4751-8 l Bronchitis 01e-f97a03 [facility] ) 851af6 2014-07-06 2014-07-06 2 Weeks nullFlavo Bria, hb7139 47-4 [facility] 14:15:00 14:15:00 (Reason: patti Nolasco MD ce3-4a1e-9 l Bronchitis 7m9-cp3d4o [facility] ) c6e3d2 2014-07-06 2014-07-06 2 Weeks nullFlavo Bria, cad75c 05-a [facility] 14:15:00 14:15:00 (Reason: patti Nolasco MD 21b-40cc-a l Bronchitis p77-59k6l1 [facility] ) 999e9a 2014-07-06 2014-07-06 2 Weeks nullFlavo Bria, ece6f2 65-f [facility] 14:15:00 14:15:00 (Reason: patti Nolasco MD 8h7-69rg-y l Bronchitis j54-5ab6x1 [facility] ) 050368 8391-03-30 2014-07-06 2 Weeks nullFlavo Bria, 1d42fd 07-3 [facility] 14:15:00 14:15:00 (Reason: patti Nolasco MD 364-40d6-b l Bronchitis 8bc-cf16e5 [facility] ) d230ec 2014-06-22 2014-06-22 3M X HTN, nullFlavo Bria, bdcc 5a23-0 [facility] 15:00:00 15:00:00 Hyperlipid patti Nolasco MD fac-4059-a l emia , 4fb-234369 Linda nn myalgia 2h7648 2014-06-22 2014-06-22 3M X HTN, nullFlavo Bria, 8fe6 3ee2-f [facility] 15:00:00 15:00:00 Hyperlipid patti Nolasco MD 1h0-6920-t l emia , 5fb-ghv673 Linda nn myalgia p9f882 2014-06-22 2014-06-22 3M X HTN, nullFlavo Bria, 360e fade-5 [facility]oria 15:00:00 15:00:00 Hyperlipid r Gaurav GRANT k67-777n-7 l emia , 34a-270a5a Linda nn myalgia 6h7361 2014-06-22 2014-06-22 3M X HTN, nullFlavo Bria, 81a4 afa7-f [facility] 15:00:00 15:00:00 Hyperlipid r Gaurav GRANT o2u-11y4-3 l emia , h14-186jvi Linda nn myalgia b4aaee 2014-06-22 2014-06-22 3M X HTN, nullFlavo Bria, 3458 832e-d [facility] 15:00:00 15:00:00 Hyperlipid r Gaurav GRANT 206-46f5-8 l emia , j97-0ue04a Linda nn myalgia 419626 1203-03-16 2014-06-22 3M X HTN, nullFlavo Bria, f7f6 44f0-5 [facility] 15:00:00 15:00:00 Hyperlipid r Gaurav GRANT 54f-4e8f-9 l emia , 0p8-a40755 Linda nn myalgia 64dfde 2014-06-22 2014-06-22 3M X HTN, nullFlavo Bria, 8079 2a85-6 [facility] 15:00:00 15:00:00 Hyperlipid r Gaurav GRANT 539-45d3-9 l emia , 1bd-045cd5 Linda nn myalgia e663c0 2014-06-22 2014-06-22 3M X HTN, nullFlavo Bria, 75f4 0e56-5 [facility] 15:00:00 15:00:00 Hyperlipid r Gaurav GRANT ec7-403d-9 l emia , 1m5-z3lcl1 Linda nn myalgia 0821e0 2014-06-22 2014-06-22 3M X HTN, nullFlavo Bria, c67e 850a-8 [facility] 15:00:00 15:00:00 Hyperlipid r Gaurav GRANT r5m-3755-g l emia , bf6-63d32e Linda nn myalgia 99a784 2014-06-22 2014-06-22 3M X HTN, nullFlavo Bria, fee3 3acf-9 [facility] 15:00:00 15:00:00 Hyperlipid r Gaurav GRANT 3v4-5y96-r l emia , 3b9-682a24 Linda nn myalgia 89ea4c 2014-06-22 2014-06-22 3M X HTN, nullFlavo Bria, ff97 9302-7 [facility] 15:00:00 15:00:00 Hyperlipid r Gaurav GRANT g0l-8307-j l emia , a3a-43777g Linda nn myalgia 54bdb4 2014-06-22 2014-06-22 3M X HTN, nullFlavo Bria, 4e84 f21e-5 [facility] 15:00:00 15:00:00 Hyperlipid r Gaurav GRANT 339-4ea2-9 l emia , 7ec-1202bc Linda nn myalgia 257a00 2014-06-22 2014-06-22 3M X HTN, nullFlavo Bria, 3a53 eab3-4 [facility] 15:00:00 15:00:00 Hyperlipid r Gaurav GRANT 329-4c32-a l emia , ef4-17caa8 Linda nn myalgia 2b565w 2014-06-22 2014-06-22 3M X HTN, nullFlavo Bria, 1393 82fe-2 [facility] 15:00:00 15:00:00 Hyperlipid r Gaurav GRANT 932-45bb-9 l emia , 571-026335 Linda nn myalgia 882d24 2014-06-22 2014-06-22 3M X HTN, nullFlavo Bria, f9cc 5035-8 [facility] 14:00:00 14:00:00 Hyperlipid r Gaurav GRANT b4d-5m41-f l emia , aad-4f92a9 Linda nn myalgia 62a818 2014-06-22 2014-06-22 3M X HTN, nullFlavo Bria, 5591 4059-a [facility] 14:00:00 14:00:00 Hyperlipid r Gaurav GRANT 5bc-420a-8 l emia , 420-de67d4 Linda nn myalgia ea0ec9 2014-06-22 2014-06-22 3M X HTN, nullFlavo Bria, b716 0183-8 [facility] 14:00:00 14:00:00 Hyperlipid r Gaurav GRANT 489-46c6-8 l emia , d11-0nh4i2 Linda nn myalgia ee3a1a 2014-06-22 2014-06-22 3M X HTN, nullFlavo Bria, a384 74c7-7 [facility] 14:00:00 14:00:00 Hyperlipid r Gaurav GRANT d0h-428u-p l emia , 903-450d03 Linda nn myalgia 274072 9337-03-16 2014-06-22 3M X HTN, nullFlavo Bria, b10e d6fc-f [facility] 14:00:00 14:00:00 Hyperlipid r Gaurav GRANT 222-4e62-9 l emia , 87b-81f30d Linda nn myalgia k7987n 2014-06-22 2014-06-22 3M X HTN, nullFlavo Bria, b2e0 a39a-7 [facility] 14:00:00 14:00:00 Hyperlipid r Gaurav GRANT 0ac-4305-b l emia , 66d-60cbf5 Linda nn myalgia 4j904n 2014-05-18 2014-05-18 Unknown nullFlavo Bria, 26c3d4 f9-0 [facility] 21:28:00 21:28:00 r Gaurav GRANT 70c-4491-a l 2n4-5u290x Linda nn c227ec 2014-05-18 2014-05-18 Unknown nullFlavo Bria, 472b38 88-5 [facility] 21:28:00 21:28:00 r Gaurav GRANT 182-431b-8 l cce-1b46b5 Linda nn c561a3 2014-05-18 2014-05-18 Unknown nullFlavo Bria, 143c52 ee-7 [facility] 21:28:00 21:28:00 r Gaurav GRANT 043-4043-9 l 37d-a6o757 Linda nn 0f5b56 2014-05-18 2014-05-18 Unknown nullFlavo Bria, d8cd1e d6-9 [facility] 21:28:00 21:28:00 r Gaurav GRANT 0r3-87r9-b l a82-ey5b4c Linda nn h02983 2014-05-18 2014-05-18 Unknown nullFlavo Bria, 000710 9e-5 [facility] 21:28:00 21:28:00 r Gaurav GRANT i79-16s3-7 l 44c-7d8e2f Linda nn ce5bd3 2014-05-18 2014-05-18 Unknown nullFlavo Bria, 66da78 4f-3 [facility] 21:28:00 21:28:00 r Gaurav GRANT 4e5-614e-j l 1d7-4m3kj2 Linda nn 5b96c5 2014-05-18 2014-05-18 Unknown nullFlavo Bria, 118e91 58-b [facility] 21:28:00 21:28:00 r Gaurav GRANT bee-4172-b l q87-y4s5l6 Linda nn fad0db 2014-05-18 2014-05-18 Unknown nullFlavo Bria, f1c98b 93-6 [facility] 21:28:00 21:28:00 r Gaurav GRANT 33e-4546-b l 7i3-767q83 Linda nn 76t033 2014-05-18 2014-05-18 Unknown nullFlavo Bria, 3f4e7e 8b-6 [facility] 21:28:00 21:28:00 r Gaurav GRANT 107-4198-a l 7df-9ad1c2 Linda nn 5aea56 2014-05-18 2014-05-18 Unknown nullFlavo Bria, 2pl936 73-6 [facility] 21:28:00 21:28:00 r Gaurav GRANT 0ec-404f-b l l25-45sr4v Linda nn 0a41c2 2014-05-18 2014-05-18 Unknown nullFlavo Bria, 6by798 16-c [facility] 21:28:00 21:28:00 r Gaurav GRANT 141-4f60-9 l v0n-rn38qr Linda nn p6z147 2014-05-18 2014-05-18 Unknown nullFlavo Bria, 0c0c9c f6-e [facility] 21:28:00 21:28:00 r Gaurav GRANT 23b-46cf-8 l 524-7b05d9 Linda nn 950b2b 2014-05-18 2014-05-18 Unknown nullFlavo Bria, 455ce7 14-0 [facility] 21:28:00 21:28:00 r Gaurav GRANT 052-4fe7-b l n68-9g2w8r Linda nn 4514c2 2014-05-18 2014-05-18 Unknown nullFlavo Bria, 2m0702 c2-1 [facility] 21:28:00 21:28:00 r Gaurav GRANT 8r1-81h8-1 l z98-f15mzb Linda nn 2p4386 2014-05-18 2014-05-18 Unknown nullFlavo Bria, 8ij197 23-3 [facility] 20:28:00 20:28:00 r Gaurav GRANT k48-5i39-p l 7v2-1602r8 Linda nn 24bab2 2014-05-18 2014-05-18 Unknown nullFlavo Bria, 129fd9 48-d [facility] 20:28:00 20:28:00 r Gaurav GRANT w3y-15az-d l 261-1cba60 [facility] nn 02e40f 2014-05-18 2014-05-18 Unknown nullFlavo Bria, 3ae0f2 e0-d [facility]oria 20:28:00 20:28:00 r Gaurav GRANT u62-9h1a-l l 6n8-2855p5 [facility] nn 8c6c5a 2014-05-18 2014-05-18 Unknown nullFlavo Bria, 543450 ee-a [facility] 20:28:00 20:28:00 r Gaurav GRANT 769-429a-9 l 008-754130 [facility] nn 557829 6140-02-09 2014-05-18 Unknown nullFlavo Bria, 7d06b5 54-d [facility] 20:28:00 20:28:00 r Gaurav GRANT 5fb-415f-b l 20f-03i634 [facility] nn 65ddea 2014-05-18 2014-05-18 Unknown nullFlavo Bria, w82327 84-1 [facility] 20:28:00 20:28:00 r Gaurav GRANT 685-4be7-9 l 380-e657fb [facility] nn tw1137 2014-03-23 2014-03-23 3 Months nullFlavo Bria, bf1a2 ecc-b [facility] 16:15:00 16:15:00 (Reason: patti Nolasco MD 875-4230-9 l Thyroid , 071-035e57 Her mcguire cholestero v18424 l ) 2014-03-23 2014-03-23 3 Months nullFlavo Bria, 6a8db a8a-7 [facility]oria 16:15:00 16:15:00 (Reason: patti Nolasco MD y16-0470-4 l Thyroid , 6aa-e6c2bd Her mcguire cholestero 2cbaaa l ) 2014-03-23 2014-03-23 3 Months nullFlavo Bria, d0b1d 3cb-e [facility]oria 16:15:00 16:15:00 (Reason: patti Nolasco MD r89-2r6o-1 l Thyroid , c9a-k53128 Her mcguire cholestero 902e3c l ) 2014-03-23 2014-03-23 3 Months nullFlavo Bria, 75efc c6d-c [facility]oria 16:15:00 16:15:00 (Reason: patti Nolasco MD ac2-429f-9 l Thyroid , 525-17fd00 Her mcguire cholestero myw598 l ) 2014-03-23 2014-03-23 3 Months nullFlavo Bria, 9ef87 370-c [facility]oria 16:15:00 16:15:00 (Reason: patti Nolasco MD 5q6-0a69-t l Thyroid , n2y-y06733 Her mcguire cholestero 79286q l ) 2014-03-23 2014-03-23 3 Months nullFlavo Bria, cdfe9 db6-c [facility]oria 16:15:00 16:15:00 (Reason: patti Nolasco MD c47-1noc-y l Thyroid , 36c-d124ef Her mcguire cholestero 47fb8f l ) 2014-03-23 2014-03-23 3 Months nullFlavo Bria, 82b75 297-9 [facility]oria 16:15:00 16:15:00 (Reason: patti Nolasco MD u2r-63m1-7 l Thyroid , cbd-5294a9 Her mcguire cholestero 4df9e0 l ) 2014-03-23 2014-03-23 3 Months nullFlavo Bria, fb8e7 0c9-6 [facility]oria 16:15:00 16:15:00 (Reason: patti Nolasco MD f5x-20o4-u l Thyroid , x17-73zh26 Her mcguire cholestero 4dfb20 l ) 2014-03-23 2014-03-23 3 Months nullFlavo Bria, a7883 cea-5 [facility]oria 16:15:00 16:15:00 (Reason: patti Nolasco MD 9w9-194q-t l Thyroid , l93-1a2lc1 Her mcguire cholestero 104355 l ) 2014-03-23 2014-03-23 3 Months nullFlavo Bria, 952fa 7d5-e [facility]oria 16:15:00 16:15:00 (Reason: patti Nolasco MD bf4-4cdb-9 l Thyroid , 9fd-6f55a2 Her mcguire cholestero 5w9097 l ) 2014-03-23 2014-03-23 3 Months nullFlavo Bria, 4ca68 697-9 [facility]oria 16:15:00 16:15:00 (Reason: patti Nolasco MD 94c-4228-8 l Thyroid , 00a-8b71fb Her mcguire cholestero 1jw890 l ) 2014-03-23 2014-03-23 3 Months nullFlavo Bria, 8fea7 8aa-f [facility]oria 16:15:00 16:15:00 (Reason: patti Nolasco MD adc-4090-b l Thyroid , m91-i2z1z6 Her mcguire cholestero 8375a1 l ) 2014-03-23 2014-03-23 3 Months nullFlavo Bria, ce8ac a68-8 [facility]oria 16:15:00 16:15:00 (Reason: patti Nolasco MD x76-158e-5 l Thyroid , 3l3-9b753c Her mcguire cholestero t8h278 l ) 2014-03-23 2014-03-23 3 Months nullFlavo Bria, 8caba cc6-7 [facility]oria 16:15:00 16:15:00 (Reason: patti Nolasco MD o20-04n8-6 l Thyroid , [id number] Her mcguire cholestero a197b8 l ) 2014-03-23 2014-03-23 3 Months nullFlavo Bria, 1a53d 1ae-f [facility]oria 16:15:00 16:15:00 (Reason: patti Nolasco MD 737-4031-8 l Thyroid , 48a-ba45e2 Her mcguire cholestero 70317w l ) 2014-03-23 2014-03-23 3 Months nullFlavo Bria, 06c75 314-b [facility]oria 15:15:00 15:15:00 (Reason: patti Nolasco MD 0c4-4596-5 l Thyroid , 345-0a4a07 Her mcguire cholestero c7e7eb l ) 2014-03-23 2014-03-23 3 Months nullFlavo Bria, 44994 e8a-c Memoria 15:15:00 15:15:00 (Reason: ptati Nolasco MD h22-8ap6-l l Thyroid , 30c-f56b54 Her mcguire cholestero 5b14b6 l ) 2014-03-23 2014-03-23 3 Months nullFlavo Bria, a7641 5be-d Memoria 15:15:00 15:15:00 (Reason: patti Nolasco MD fe8-47bc-a l Thyroid , b9v-677775 Her mcguire cholestero dol332 l ) 2014-03-23 2014-03-23 3 Months nullFlavo Bria, ec57f b9c-8 Memoria 15:15:00 15:15:00 (Reason: patti Nolasco MD ffd-4c4c-b l Thyroid , x4k-1e7qd6 Her mcguire cholestero 626b74 l ) 2014-03-23 2014-03-23 3 Months nullFlavo Bria, 39786 ee3-f Memoria 15:15:00 15:15:00 (Reason: patti Nolasco MD 598-4a5f-8 l Thyroid , dfc-699fe6 Her mcguire cholestero b586e6 l ) 2014-03-23 2014-03-23 3 Months nullFlavo Bria, e9164 66c-8 Memoria 15:15:00 15:15:00 (Reason: patti Nolasco MD y16-8dq0-l l Thyroid , 271-99966g Her mcguire cholestero e39fee l ) 2014-02-04 2014-02-04 Medication nullFlavo Bria, d45 88g26-1 Memoria 19:30:00 19:30:00 s Issue patti Nolasco MD 38b-43a2-8 l 1y2-8y31hf [facility] nn 99b0c5 2014-02-04 2014-02-04 Medication nullFlavo Bria, a73 9p956-9 [facility]oria 19:30:00 19:30:00 s Issue patti Nolasco MD 366-49e2-8 l 8df-d31b85 [facility] nn 419074 2854-10-29 2014-02-04 Medication nullFlavo Bria, e64 030x3-e [facility]oria 19:30:00 19:30:00 s Issue patti Nolasco MD ce0-4911-9 l 44f-305740 [facility] nn c1i188 2014-02-04 2014-02-04 Medication nullFlavo Bria, ce0 nf5w0-8 [facility]oria 19:30:00 19:30:00 s Issue patti Nolasco MD 48e-4319-a l cea-0932e1 [facility] nn bz0160 2014-02-04 2014-02-04 Medication nullFlavo Bria, 283 r2321-w [facility]oria 19:30:00 19:30:00 s Issue patti Nolasco MD h62-5l61-6 l 5z6-e7w8w6 [facility] nn 46201z 2014-02-04 2014-02-04 Medication nullFlavo Bria, 482 70ro1-p [facility]oria 19:30:00 19:30:00 s Issue patti Nolasco MD ce4-481f-8 l 127-f730b2 [facility] nn 919ec4 2014-02-04 2014-02-04 Medication nullFlavo Bria, 9bf ff28z-4 Memoria 19:30:00 19:30:00 s Issue patti Nolasco MD 858-4d3e-9 l y29-qw86rt [facility] nn 4nf558 2014-02-04 2014-02-04 Medication nullFlavo Bria, 294 04u14-q [facility] 19:30:00 19:30:00 s Issue patti Nolasco MD 94f-4eb8-a l 731-be0e5c [facility] nn 1303a5 2014-02-04 2014-02-04 Medication nullFlavo Bria, 974 ffd06-0 [facility]oria 19:30:00 19:30:00 s Issue patti Nolasco MD 9e4-23id-8 l 1d8-7199i1 [facility] nn ae66ac 2014-02-04 2014-02-04 Medication nullFlavo Bria, 6d7 98bf9-3 [facility]oria 19:30:00 19:30:00 s Issue patti Nolasco MD bf7-4d98-a l 41b-cd3a74 [facility] nn 980b6f 2014-02-04 2014-02-04 Medication nullFlavo Bria, 786 22ao3-1 [facility] 19:30:00 19:30:00 s Issue patti Nolasco MD bc7-4162-8 l 23a-ea1bdf [facility] nn aq638n 2014-02-04 2014-02-04 Medication nullFlavo Bria, b56 9u609-1 [facility]oria 19:30:00 19:30:00 s Issue patti Nolasco MD q55-84ch-m l 10e-88u347 [facility] nn 69u183 2014-02-04 2014-02-04 Medication nullFlavo Bria, 738 234m2-3 [facility]oria 19:30:00 19:30:00 s Issue patti Nolasco MD 7q7-937z-6 l j7y-1m4vue [facility] nn a3d74b 2014-02-04 2014-02-04 Medication nullFlavo Bria, 2b1 3n853-9 Memoria 19:30:00 19:30:00 s Issue patti Nolasco MD 9x5-55s4-l l shakir-b7fa75 [facility] nn 50042s 2014-02-04 2014-02-04 Medication nullFlavo Bria, 29d 9c904-5 [facility]oria 19:30:00 19:30:00 s Issue patti Nolasco MD u98-0430-6 l 870-72ae9e [facility] nn 376b9a 2014-02-04 2014-02-04 Medication nullFlavo Bria, 425 5dw4m-p [facility] 19:30:00 19:30:00 s Issue patti Nolasco MD 622-4348-b l ef5-10u673 [facility] x09250 2014-02-04 2014-02-04 Medication nullFlavo Bria, 786 y9trx-k [facility]oria 18:30:00 18:30:00 s Issue patti Nolasco MD r5l-572k-x l 28e-o1p742 [facility] nn 82bce3 2014-02-04 2014-02-04 Medication nullFlavo Bria, 858 z2519-3 [facility]oria 18:30:00 18:30:00 s Issue patti Nolasco MD fde-4ea1-b l s2p-2bx537 [facility] nn aebc34 2014-02-04 2014-02-04 Medication nullFlavo Bria, 289 u1579-5 Memoria 18:30:00 18:30:00 s Issue patti Nolasco MD 5v6-973t-g l h42-3g6986 [facility] nn vsa847 2014-02-04 2014-02-04 Medication nullFlavo Rbia, 6a3 28637-7 [facility]oria 18:30:00 18:30:00 s Issue patti Nolasco MD df3-470e-8 l ec1-ffc0b6 [facility] nn 9dd6ca 2014-02-04 2014-02-04 Medication nullFlavo Bria, 6a4 z27h5-5 [facility]oria 18:30:00 18:30:00 s Issue patti Nolasco MD k19-8515-1 l ca3-d26a72 [facility] nn 113206 9843-10-29 2014-02-04 Medication nullFlavo Bria, c72 b6z0c-8 [facility]oria 18:30:00 18:30:00 s Issue patti Nolasco MD 19d-471a-8 l z5e-v090gg [facility] nn 97130e 2013-12-18 2013-12-18 2 Weeks nullFlavo Bria, 4b3ef9 aa-3 Memoria 14:45:00 14:45:00 (Reason: patti Nolasco MD 06d-4ad8-9 l Thyroid , d35-zm7m1g Her mcguire fibromyalg 999b57 ia ,osteoporo sis ) 2013-12-18 2013-12-18 2 Weeks nullFlavo Bria, 655553 d5-e [facility]oria 14:45:00 14:45:00 (Reason: patti Nolasco MD cb2-4bdf-b l Thyroid , 2aa-8294ce Her mcguire fibromyalg 919fc0 ia ,osteoporo sis ) 2013-12-18 2013-12-18 2 Weeks nullFlavo Bria, f681b0 aa-6 [facility]oria 14:45:00 14:45:00 (Reason: patti Nolasco MD ef7-4e6b-a l Thyroid , 618-0372f4 Her mcguire fibromyalg u02015 ia ,osteoporo sis ) 2013-12-18 2013-12-18 2 Weeks nullFlavo Bria, b8e0ca 19-e [facility]oria 14:45:00 14:45:00 (Reason: patti Nolasco MD 443-4068-9 l Thyroid , 1c8-463e15 Her mcguire fibromyalg 16edce ia ,osteoporo sis ) 2013-12-18 2013-12-18 2 Weeks nullFlavo Bria, f2ebe3 98-a [facility] 14:45:00 14:45:00 (Reason: patti Nolasco MD 1p6-50fz-e l Thyroid , l71-2r0r37 Her mcguire fibromyalg 4f256q ia ,osteoporo sis ) 2013-12-18 2013-12-18 2 Weeks nullFlavo Bria, 02d81f e4-7 [facility]oria 14:45:00 14:45:00 (Reason: patti Nolasco MD m68-25c4-0 l Thyroid , 996-b2777x Her mcguire fibromyalg xf7838 ia ,osteoporo sis ) 2013-12-18 2013-12-18 2 Weeks nullFlavo Bria, 9b156i 9d-b [facility] 14:45:00 14:45:00 (Reason: patti Nolasco MD 415-440c-b l Thyroid , 814-bfff4f Her mcguire fibromyalg a9c7ac ia ,osteoporo sis ) 2013-12-18 2013-12-18 2 Weeks nullFlavo Bria, efaae2 26-f [facility] 14:45:00 14:45:00 (Reason: patti Nolasco MD 446-4378-9 l Thyroid , 146-4gj068 Her mcguire fibromyalg 663e1d ia ,osteoporo sis ) 2013-12-18 2013-12-18 2 Weeks nullFlavo Bria, 6ae78b dc-5 [facility]oria 14:45:00 14:45:00 (Reason: patti Nolasco MD 958-4cfb-8 l Thyroid , g7s-o47h16 Her mcguire fibromyalg 8b3c15 ia ,osteoporo sis ) 2013-12-18 2013-12-18 2 Weeks nullFlavo Bria, 70ad16 9e-5 [facility]oria 14:45:00 14:45:00 (Reason: patti Nolasco MD 654-41b7-8 l Thyroid , t77-u2xz8p Her mcguire fibromyalg 60b0ba ia ,osteoporo sis ) 2013-12-18 2013-12-18 2 Weeks nullFlavo Bria, 35f2d6 6c-7 [facility] 14:45:00 14:45:00 (Reason: patti Nolasco MD 118-4906-8 l Thyroid , aee-s8n196 Her mcguire fibromyalg 86863z ia ,osteoporo sis ) 2013-12-18 2013-12-18 2 Weeks nullFlavo Bria, 6846d4 45-3 [facility] 14:45:00 14:45:00 (Reason: patti Nolasco MD c00-2641-b l Thyroid , 8ad-3d4b20 Her mcguire fibromyalg 28cf4d ia ,osteoporo sis ) 2013-12-18 2013-12-18 2 Weeks nullFlavo Bria, 1o2254 24-0 [facility] 14:45:00 14:45:00 (Reason: patti Nolasco MD ab5-4029-9 l Thyroid , 2be-960c52 Her mcguire fibromyalg 701378 ia ,osteoporo sis ) 2013-12-18 2013-12-18 2 Weeks nullFlavo Bria, 82c0c6 a4-9 [facility]oria 14:45:00 14:45:00 (Reason: patti Nolasco MD h31-9w74-e l Thyroid , m23-8zph19 Her mcguire fibromyalg 130fd0 ia ,osteoporo sis ) 2013-12-18 2013-12-18 2 Weeks nullFlavo Bria, 2e7a78 1c-1 [facility] 14:45:00 14:45:00 (Reason: patti Nolasco MD 991-41de-a l Thyroid , x3b-8ql6j4 Her mcguire fibromyalg 3u4453 ia ,osteoporo sis ) 2013-12-18 2013-12-18 2 Weeks nullFlavo Bria, 12622u db-0 [facility] 14:45:00 14:45:00 (Reason: patti Nolasco MD 524-410e-a l Thyroid , gladys-eca3b2 Her mcguire fibromyalg 82d1f2 ia ,osteoporo sis ) 2013-12-18 2013-12-18 2 Weeks nullFlavo Bria, 0a2e26 5b-8 [facility] 13:45:00 13:45:00 (Reason: patti Nolasco MD sebas-44da-a l Thyroid , q20-u548xs Her mcguire fibromyalg 25v938 ia ,osteoporo sis ) 2013-12-18 2013-12-18 2 Weeks nullFlavo Bria, b2c4f6 8d-d Memoria 13:45:00 13:45:00 (Reason: patti Nolasco MD 5db-4b0a-b l Thyroid , 6g3-5ix181 Her mcguire fibromyalg 3f7d33 ia ,osteoporo sis ) 2013-12-18 2013-12-18 2 Weeks nullFlavo Bria, 99x846 b9-f [facility] 13:45:00 13:45:00 (Reason: patti Nolasco MD 1bf-4fa1-9 l Thyroid , 06d-5yt728 Her mcguire fibromyalg 9e6d70 ia ,osteoporo sis ) 2013-12-18 2013-12-18 2 Weeks nullFlavo Bria, fd539h 53-5 [facility] 13:45:00 13:45:00 (Reason: patti Nolasco MD 039-4e09-8 l Thyroid , 42c-c1e8c4 Her mcguire fibromyalg b27abd ia ,osteoporo sis ) 2013-12-18 2013-12-18 2 Weeks nullFlavo Bria, 2813e8 b2-3 [facility]oria 13:45:00 13:45:00 (Reason: patti Nolasco MD fb5-47ba-8 l Thyroid , 6j6-59n2o0 Her mcguire fibromyalg d15a34 ia ,osteoporo sis ) 2013-12-18 2013-12-18 2 Weeks nullFlavo Bria, 60bb36 5e-3 [facility]oria 13:45:00 13:45:00 (Reason: patti Nolasco MD q0c-467u-i l Thyroid , i5m-o7dt4o Her mcguire fibromyalg 3082d9 ia ,osteoporo sis ) 2013-12-18 2013-12-18 2 Weeks nullFlavo Bria, i1679e ac-9 [facility] 13:45:00 13:45:00 (Reason: patti Nolasco MD 87a-452a-9 l Thyroid , ca7-adeeb5 Her mcguire fibromyalg f8f5ca ia ,osteoporo sis ) 2013-12-06 2013-12-06 Unknown nullFlavo Bria, 74x817 5c-a [facility] 01:43:00 01:43:00 r Gaurav GRANT 76c-48f1-9 l bce-8270ee [facility] nn 2w1569 2013-12-06 2013-12-06 Unknown nullFlavo Bria, 0e07dd 34-5 [facility] 01:43:00 01:43:00 r Gaurav GRANT 0m5-4542-9 l 388-64818g [facility] nn afcab7 2013-12-06 2013-12-06 Unknown nullFlavo Bria, e83dff d0-e [facility] 01:43:00 01:43:00 r Gaurav GRANT 300-429c-b l 45f-396496 [facility] nn af9b3b 2013-12-06 2013-12-06 Unknown nullFlavo Bria, c3b05a da-e [facility] 01:43:00 01:43:00 r Gaurav GRANT s2t-7838-6 l [id number] [facility] nn c869b7 2013-12-06 2013-12-06 Unknown nullFlavo Bria, 63cb93 42-9 [facility] 01:43:00 01:43:00 r Gaurav GRANT d58-13w3-g l ccc-85f5b7 [facility] nn 80615h 2013-12-06 2013-12-06 Unknown nullFlavo Bria, [id number] ad-4 [facility] 01:43:00 01:43:00 r Gaurav GRANT 5o7-091d-8 l [id number] [facility] nn 191726 0157-08-30 2013-12-06 Unknown nullFlavo Bria, 113d1c 61-b [facility] 01:43:00 01:43:00 r Gaurav GRANT fa7-46d0-b l [id number] [facility] nn a6eb61 2013-12-06 2013-12-06 Unknown nullFlavo Bria, d575e4 8b-6 [facility] 01:43:00 01:43:00 r Gaurav GRANT 5n9-2f60-8 l [id number]-b924cb [facility] nn 344f73 2013-12-06 2013-12-06 Unknown nullFlavo Bria, h4566e b4-6 [facility] 01:43:00 01:43:00 r Gaurav GRANT 888-4ae5-b l n0w-p1632t [facility] nn c37ef3 2013-12-06 2013-12-06 Unknown nullFlavo Bria, f88d90 f9-e [facility] 01:43:00 01:43:00 r Gaurav GRANT 691-42f5-9 l 4dd-5ecd20 [facility] nn f98f84 2013-12-06 2013-12-06 Unknown nullFlavo Bria, 50874n 17-0 [facility] 01:43:00 01:43:00 r Gaurav GRANT 4fd-43eb-b l p8i-0apla6 [facility] nn f926c7 2013-12-06 2013-12-06 Unknown nullFlavo Bria, 5o892m 28-5 [facility] 01:43:00 01:43:00 r Gaurav GRANT d0p-4j63-f l 72e-217f96 [facility] nn 97496g 2013-12-06 2013-12-06 Unknown nullFlavo Bria, 9o321f 09-1 [facility] 01:43:00 01:43:00 r Gaurav GRANT 9be-44a0-8 l [id number] [facility] nn f5a5f7 2013-12-06 2013-12-06 Unknown nullFlavo Bria, qkr133 61-c [facility] 01:43:00 01:43:00 r Gaurav GRANT m5y-5678-4 l k8v-eq7a60 [facility] nn a99a9f 2013-12-06 2013-12-06 Unknown nullFlavo Bria, g0253k 72-d [facility] 01:43:00 01:43:00 r Gaurav GRANT 339-4ba1-9 l ddc-afee6c [facility] nn 48a7aa 2013-12-06 2013-12-06 Unknown nullFlavo Bria, 9521d2 42-2 [facility] 01:43:00 01:43:00 r Gaurav GRANT 7v3-796m-9 l d4y-0v84k8 [facility] nn f79d2f 2013-12-06 2013-12-06 Unknown nullFlavo Bria, 91b9fe 0e-8 [facility] 00:43:00 00:43:00 r Gaurav GRANT k5f-9u35-6 l z0e-752c69 [facility] nn 25d4ff 2013-12-06 2013-12-06 Unknown nullFlavo Bria, 79n147 16-0 [facility] 00:43:00 00:43:00 r Gaurav GRANT i04-6y7u-e l 103-9079f9 [facility] nn [id number] 4064-08-30 2013-12-06 Unknown nullFlavo Bria, f8d58a 6e-9 [facility] 00:43:00 00:43:00 r Gaurav GRANT 0r7-9nh3-8 l 903-61p009 [facility] nn 77i724 2013-12-06 2013-12-06 Unknown nullFlavo Bria, 37c7d5 cf-4 [facility] 00:43:00 00:43:00 r Gaurav GRANT w1a-3369-e l bc8-e44b4d [facility] nn f616b2 2013-12-06 2013-12-06 Unknown nullFlavo Bria, 08a22d c6-0 [facility] 00:43:00 00:43:00 r Gaurav GRANT 6cb-4b13-8 l [id number] [facility] nn ddf2c0 2013-12-06 2013-12-06 Unknown nullFlavo Bria, 6b8fe0 5b-0 [facility] 00:43:00 00:43:00 r Gaurav GRANT 123-4f83-9 l [id number] [facility] nn 5g281r 2013-12-06 2013-12-06 Unknown nullFlavo Bria, e7fb72 21-7 [facility] 00:43:00 00:43:00 r Gaurav GRANT ddb-4d49-a l susan-bd8e4b [facility] nn 4a27e7 2013-12-06 2013-12-06 Unknown nullFlavo Bria, [id number] 0a-a [facility] 00:43:00 00:43:00 r Gaurav GRANT 922-456b-9 l 1fd-bce3c8 [facility] nn d31d53 2013-12-04 2013-12-04 Annual nullFlavo Bria, 03dd05 08-a [facility] 15:15:00 15:15:00 Pysical r Gaurav GRANT 6c1-41v1-7 l 84e-dad18f [facility] nn 4lv808 2013-12-04 2013-12-04 Annual nullFlavo Bria, c8e7f0 ef-4 [facility] 15:15:00 15:15:00 Pysical r Gaurav GRANT 71e-4423-b l v2j-838g57 [facility] nn 7yn629 2013-12-04 2013-12-04 Annual nullFlavo Bria, eba8ad 76-d [facility] 15:15:00 15:15:00 Pysical r Gaurav GRANT o90-6724-d l 155-4w309j [facility] nn 5cae58 2013-12-04 2013-12-04 Annual nullFlavo Bria, 437d19 42-a [facility] 15:15:00 15:15:00 Pysical r Gaurav RGANT t11-3855-g l ebb-fc3b55 [facility] nn 3b5925 2013-12-04 2013-12-04 Annual nullFlavo Bria, 03ecce bc-d [facility] 15:15:00 15:15:00 Pysical r Gaurav GRANT 19f-48ab-8 l 5j0-8e9yh0 [facility] nn 6c03d0 2013-12-04 2013-12-04 Annual nullFlavo Bria, ad39a6 31-f [facility] 15:15:00 15:15:00 Pysical patti Nolasco MD 556-4204-a l 505-57479q [facility] nn 143a24 2013-12-04 2013-12-04 Annual nullFlavo Bria, 72dc70 9c-f [facility] 15:15:00 15:15:00 Pysical patti Nolasco MD eb8-4a9b-a l g76-r9222u [facility] nn 70cbac 2013-12-04 2013-12-04 Annual nullFlavo Bria, 6dd2c0 7e-1 [facility] 15:15:00 15:15:00 Pysical patti Nolasco MD b36-52rw-c l 154-4o9375 [facility] nn f4e40c 2013-12-04 2013-12-04 Annual nullFlavo Bria, n5h636 51-2 [facility] 15:15:00 15:15:00 Pysical r Gaurav GRANT g48-96o9-e l 316-196cfa [facility] nn yil058 2013-12-04 2013-12-04 Annual nullFlavo Bria, 0b7de6 7f-8 [facility] 15:15:00 15:15:00 Pysical r Gaurav GRANT 84c-4d37-8 l 6g6-5s1615 [facility] nn 0049e3 2013-12-04 2013-12-04 Annual nullFlavo Bria, 6e4b8e dc-9 [facility] 15:15:00 15:15:00 Pysical r Gaurav GRANT 877-43d3-8 l [id number]-dq5527 [facility] nn [id number] 2086-08-28 2013-12-04 Annual nullFlavo Bria, 3h443h c5-1 [facility] 15:15:00 15:15:00 Pysical patti Nolasco MD i55-0n06-1 l j77-7o0hi8 [facility] nn 8468b6 2013-12-04 2013-12-04 Annual nullFlavo Bria, [id number] be-6 [facility] 15:15:00 15:15:00 Pysical r Gaurav GRANT 4o4-4r38-5 l shaan-d94cf1 [facility] nn b12c91 2013-12-04 2013-12-04 Annual nullFlavo Bria, c8r468 58-8 [facility] 15:15:00 15:15:00 Pysical patti Nolasco MD 291-44ff-a l 829-4fdf4d [facility] nn 01171b 2013-12-04 2013-12-04 Annual nullFlavo Bria, c19e9e 15-1 [facility] 15:15:00 15:15:00 Pysical patti Nolasco MD 366-4cf2-b l ecf-d4f5a7 [facility] nn [id number] 2013-12-04 2013-12-04 Annual nullFlavo Bria, [id number] 3f-9 [facility] 15:15:00 15:15:00 Pysical patti Nolasco MD 500-4491-8 l 689-65d92e [facility] nn 63616s 2013-12-04 2013-12-04 Annual nullFlavo Bria, 8b3daa c3-9 [facility] 14:15:00 14:15:00 Pysical patti Nolasco MD ecb-48db-9 l 6g5-18845r [facility] nn f225d4 2013-12-04 2013-12-04 Annual nullFlavo Bria, l8g174 0f-6 [facility] 14:15:00 14:15:00 Pysical patti Nolasco MD m8i-8792-8 l db1-5a37e3 [facility] nn s89092 2013-12-04 2013-12-04 Annual nullFlavo Bria, [id number] c5-e [facility]oria 14:15:00 14:15:00 Pysical patti Nolasco MD [id number] l [id number] Linda nn [id number] 2013-12-04 2013-12-04 Annual nullFlavo Bria, kn658y 67-1 [facility] 14:15:00 14:15:00 Pysical patti Nolasco MD 78d-47af-a l [id number] Linda nn [id number] 2013-12-04 2013-12-04 Annual nullFlavo Bria, cb4730 9c-a [facility] 14:15:00 14:15:00 Pysical patti Nolasco MD u07-241m-6 l [id number] Linda nn [id number] 2013-12-04 2013-12-04 Annual nullFlavo Bria, [id number] 97-b [facility]oria 14:15:00 14:15:00 Pysical patti Nolasco MD 1n8-2c62-k l [id number] Linda nn [id number] 2013-12-04 2013-12-04 Annual nullFlavo Bria, 7ecb9d 6a-d [facility] 14:15:00 14:15:00 Pysical patti Nolasco MD 960-420a-b l diego-678efe Linda nn [id number] Results Test Description Test Time Test Comments Results Result Sourc e Comments [place], [employer] IN 2017-12-21 Reason for FLUOROSCOPIC UNIT OR/30 MINUTE 11:12:00 exam:->pain UTILIZED-NO INCREMENTS INTERPRETATION REQUESTED. /FREE T4 IF INDICATED 2017-12-13 06:42:00 Test Item Value Reference Range Interpretation Comme nts THYROID STIMULATING HORMONE (BEAKER) (test code = 772) 2.89 uIU/mL 0.35-4.94 BASIC METABOLIC [id number] 06:22:00 Test Item Value Reference Range Interpretation [...] PATIEN TS. CBC W/PLT COUNT & AUTO [id number] 06:14:00 Test Item Value Reference Range Interpretation [...] code = 2801) LACTIC ACID, VENOUS, WHOLE [id number] 15:27:00 Test Item Value Reference Range Interpretation Comments LACTATE BLOOD VENOUS (2) (BEAKER) 1.1 mmol/L 0.5-2.2 (test code = 2872) Effective 08/11/2015: Units/Reference Range ChangeNew: 0.5-2.2 mmol/L Previous: 5-20 mg/dLBASIC METABOLIC [id number] 13:31:00 Test Item Value Reference Range Interpretation [...] PATIEN TS. CBC W/PLT COUNT & AUTO [id number] 13:05:00 Test Item Value Reference Range Interpretation [...] PERCENT (BEAKER) (test code = 2801) [place], [employer] IN OR/30 MINUTE [id number] 11:03:00Reason for exam:- >IMPLANTATION OF INTRATHECAL PUMPFINAL REPORT Single fluoroscopic spine image. Fluoroscopy time 15.2 seconds. Fluoroscopy was not performed by the undersigned. Refer to procedure notes for diagnostic and therapeutic detail. Signed: Tiara Pedersen Verified Date/Time: 12/11/2017 11:03:55 Reading Location:[facility] Radiology Reading Room TISSUE EXAM 2017-12-04 17:14:00Surgical Pathology Report Case: [id number] Authorizing Provider: Jerome Arias MD Collected: 11/30/2017 1327 Ordering Location: [facility] Received: 11/30/2017 1424 SERVICES Pathologist: Susan Ramos MD Specimen: Explant, hardware NEURAL STIMULATOR, REMOVAL: - HARDWARE IDENTIFIED (GROSS DIAGNOSIS) Signing Pathologist Direct Phone Line: [phone] [id number] pain disorderHardware, neural stimulator The specimen is received in a fluidless container labeled with patient information and labeled "hardware neural stimulator" and consists of a neural stimulator battery measuring5.2 x 5 x 0.6 cm with two attached leads measuring 60 cm in length x 0.1 cm in diameter. Specimen serial number [id number]. The specimen is submitted for gross identification only. CG/plMR, SPINE, THORACIC, [id number] 11:58:00FINAL REPORT MR thoracic and lumbar spine [...] MDReport Verified Date/Time: 12/04/2017 11:58:05 Reading Location: [address] Neuro Reading Room MR, SPINE, LUMBAR, [id number] 11:58:00FINAL REPORT MR thoracic and lumbar spine [...] lesion. Advise dedicated imaging. Signed: Autumn Watson Verified Date/Time: 12/04/2017 11:58:05 Reading Location: [facility] C013V Neuro Reading Room RAD, CHEST, 2 [...] Barnett Verified Date/Time: 12/01/2017 16:14:55 Reading Location: [facility] C013X Ortho Consult Reading Room ALYSIS W/ REFLEX URINE [id number] 10:01:00 Test Item Value Reference Range Interpretation [...] SOURCE(BEAKER) (test code = 2795) BASIC METABOLIC [id number] 09:45:00 Test Item Value Reference Range Interpretation [...] S NOT APPLICABLE FOR DIALYSIS PATIEN TS. [id number] 09:26:00 Test Item Value Reference Range Interpretation Comments PARTIAL THROMBOPLASTIN TIME 36.9 seconds 22.5-36.0 H (BEAKER) (test code = 760) PROTHROMBIN TIME/[id number] 09:25:00 Test Item Value Reference Range Interpretation [...] (test code = 2801) AFB CULTURE + [id number] 14:00:00 Test Item Value Reference Range Interpretation Comments CULTURE (BEAKER) (test No acid-fast bacilli code = 1095) isolated in 42 days AFB SMEAR (BEAKER) No acid fast bacilli (test code = 994) seen FUNGUS CULTURE + [id number] 15:41:00 Test Item Value Reference Range Interpretation Comments CULTURE (BEAKER) (test No fungus isolated in code = 1095) 28 days FUNGUS SMEAR (BEAKER) No fungi seen (test code = 1406) ANAEROBIC [id number] 04:04:00 Test Item Value Reference Range Interpretation Comments CULTURE (BEAKER) (test No anaerobes isolated code = 1095) SURGICALLY OBTAINED CULTURE + GRAM [id number] 14:12:00 Test Item Value Reference Interpretation Comments [...] (BEAKER) (test code = cocci in clusters 516602) TISSUE [id number] 15:59:00Surgical Pathology Report Case: [id number] Authorizing Provider: Jerome Arias MD Collected: 08/21/2017 1626 Ordering Location: [facility] Received: 08/22/2017 0819 SERVICES Pathologist: Rebeca Patricia MD Specimen: Explant, HARDWARE HARDWARE, INTRATHECAL PUMP, 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 The serial number for the programmable pump is "[id number]". The specimen is submitted for gross identification. CG/ew Not performedSPIN/CONCENTRATION [id number] 11:42:00 Test Item Value Reference Range Interpretation Comments CONCENTRATION CHARGED (BEAKER) (test Done code = 2657) [id number] 06:19:00 Test Item Value Reference Range Interpretation [...] = 413) CREATINE KINASE (CK), TOTAL AND [id number] 00:38:00 Test Item Value Reference Range Interpretation Comments CREATINE KINASE TOTAL (BEAKER) 46 U/L 29-200 (test code = 380) CREATINE KINASE-MB (BEAKER) (test 1.0 ng/mL 0.0-6.6 code = 750) CREATINE KINASE-MB INDEX (BEAKER) 2.2 % (test code = 395) CK-MB Reference Range:<6.7 Normal6.7-10.0 Borderline>10.0 AbnormalTROPONIN [id number] 00:38:00 Test Item Value Reference Range Interpretation [...] acute neurological disease, and persistent tachyarrhythmia.HEPATIC FUNCTION [id number] 00:35:00 Test Item Value Reference Range Interpretation [...] code = 8 U/L 6-55 347) PROTHROMBIN TIME/[id number] 00:25:00 Test Item Value Reference Range Interpretation Comments PROTIME (BEAKER) (test code = 15.9 seconds 11.7-14.7 H 759) INR (BEAKER) (test code = 370) 1.3 <=5.9 RECOMMENDED COUMADIN/WARFARIN INR THERAPY RANGESSTANDARD DOSE: 2.0 - 3.0 Includes: PROPHYLAXIS forvenous thrombosis, systemic embolization; TREATMENT for venous thrombosis and/or pulmonary embolus.HIGH RISK: Target INR is 2.5-3.5 for patients with mechanical heart valves.PLATELET [id number] 12:50:00 Test Item Value Reference Range Interpretation Comments PLATELET COUNT (BEAKER) (test 197 K/CU MM 150-450 code = 756) BASIC METABOLIC [id number] 11:36:00 Test Item Value Reference Range Interpretation [...] DIALYSIS PATIEN TS. URINALYSIS W/ REFLEX URINE [id number] 11:28:00 Test Item Value Reference Range Interpretation [...] code = 516) SOURCE(BEAKER) (test code = 9655) CBC W/PLT COUNT & AUTO [id number] 11:27:00 Test Item Value Reference Range Interpretation [...] PERCENT (BEAKER) (test code = 2801) POCT-GLUCOSE [id number] 08:26:00 Test Item Value Reference Range Interpretation Comments POC-GLUCOSE METER 105 mg/dL 70-110 TESTED AT [facility] 6720 (BEAKER) (test code = ANA [place] 1538) [address] BASIC METABOLIC [id number] 06:24:00 Test Item Value Reference Range Interpretation [...] (BEAKER) (test code = 413) BASIC METABOLIC [id number] 05:47:00 Test Item Value Reference Range Interpretation [...] WBC 0-0 (BEAKER) (test code = 413) [id number] 05:12:00 Test Item Value Reference Range Interpretation Comments PHOSPHORUS (BEAKER) (test code = 3.8 mg/dL 2.3-4.7 604) [id number] 05:12:00 Test Item Value Reference Range Interpretation Comments MAGNESIUM (BEAKER) (test code = 1.6 mg/dL 1.6-2.6 627) BASIC METABOLIC [id number] 05:12:00 Test Item Value Reference Range Interpretation [...] APPLICABLE FOR DIALYSIS PATIEN TS. HEPATIC FUNCTION [id number] 05:12:00 Test Item Value Reference Range Interpretation [...] 6-55 347) CBC W/PLT COUNT & AUTO [id number] 04:32:00 Test Item Value Reference Range Interpretation [...] 0-1 PERCENT (BEAKER) (test code = 2801) [id number] 09:47:00 Test Item Value Reference Range Interpretation Comments PHOSPHORUS (BEAKER) (test code = 3.7 mg/dL 2.3-4.7 604) [id number] 09:47:00 Test Item Value Reference Range Interpretation Comments MAGNESIUM (BEAKER) (test code = 1.8 mg/dL 1.6-2.6 627) BASIC METABOLIC [id number] 09:47:00 Test Item Value Reference Range Interpretation [...] APPLICABLE FOR DIALYSIS PATIEN TS. HEPATIC FUNCTION [id number] 09:47:00 Test Item Value Reference Range Interpretation [...] 6-55 347) CBC W/PLT COUNT & AUTO [id number] 09:16:00 Test Item Value Reference Range Interpretation [...] code = 2801) RAD, HAND, 2 VIEWS, [id number] 08:42:00Reason for exam:->history of left forearm/wrist fractureShould [...] fracture of the distal radius. Signed: Tamiko Kernepjoanna Verified Date/Time: 06/19/2017 08:42:08 [facility], FOREARM, 2 VIEWS, [id number] 08:38:00Reason for exam:->history of left wrist/forearm fractureShould [...] of the distal radius. Signed: Tamiko Kern MDReport Verified Date/Time: 06/19/2017 08:38:49 Reading Location:[facility] Radiology Reading Room POCT-GLUCOSE [id number] 17:06:00 Test Item Value Reference Range Interpretation Comments POC-GLUCOSE METER 102 mg/dL 70-110 TESTED AT [facility] 6720 (BEAKER) (test code = ELENO Forrester [facility] 1538) [address] T4, [id number] 14:34:00 Test Item Value Reference Range Interpretation Comments FREE T4 (BEAKER) (test code = 655) 1.13 ng/dL 0.70-1.48 [id number] 12:54:00 Test Item Value Reference Range Interpretation Comments PHOSPHORUS (BEAKER) (test code = 3.0 mg/dL 2.3-4.7 604) [id number] 12:54:00 Test Item Value Reference Range Interpretation Comments MAGNESIUM (BEAKER) (test code = 2.1 mg/dL 1.6-2.6 627) BASIC METABOLIC [id number] 12:54:00 Test Item Value Reference Range Interpretation [...] APPLICABLE FOR DIALYSIS PATIEN TS. HEPATIC FUNCTION [id number] 12:54:00 Test Item Value Reference Range Interpretation [...] code = 9 U/L 6-55 347) HEMOGLOBIN [id number] 12:08:00 Test Item Value Reference Range Interpretation Comments HEMOGLOBIN A1C (BEAKER) (test code = 5.8 % 4.3-6.1 368) POCT-GLUCOSE [id number] 11:40:00 Test Item Value Reference Range Interpretation Comments POC-GLUCOSE METER 83 mg/dL 70-110 TESTED AT [facility] 6720 (BEAKER) (test code = [place] [address] 1538) TSH/FREE T4 IF [id number] 11:38:00 Test Item Value Reference Range Interpretation Comments THYROID STIMULATING HORMONE 8.19 uIU/mL 0.35-4.94 H (BEAKER) (test code = 772) SEDIMENTATION [id number] 11:20:00 Test Item Value Reference Range Interpretation Comments SEDIMENTATION RATE, ERYTHROCYTE 101 mm/HR 0-40 H (BEAKER) (test code = 766) LIPID [id number] 08:58:00 Test Item Value Reference Range Interpretation [...] Borderline 130-159 High 160-189 Very High >=190C-REACTIVE [id number] 08:58:00 Test Item Value Reference Range Interpretation Comments C-REACTIVE PROTEIN (BEAKER) (test 11.13 mg/dL 0.00-0.50 H code = 676) POCT-GLUCOSE [id number] 07:54:00 Test Item Value Reference Range Interpretation Comments POC-GLUCOSE METER 93 mg/dL 70-110 TESTED AT [facility] 67[address] ([facility]) (test code = [place] [address] 1538) CBC W/PLT COUNT & AUTO [id number] 06:52:00 Test Item Value Reference Range Interpretation [...] 0-1 PERCENT (BEAKER) (test code = 2801) PT/[id number] 06:35:00 Test Item Value Reference Range Interpretation [...] 2.5-3.5 for patients with mechanical heart valves.POCT-GLUCOSE [id number] 22:11:00 Test Item Value Reference Range Interpretation Comments POC-GLUCOSE METER 101 mg/dL 70-110 TESTED AT [facility] [address] [facility] (test code = ELENO BLANCO 1538) [address] [place], [employer] IN OR/30 MINUTE [id number] 11:15:00Reason for exam:- >Implantation of Intrathecal PumpFINAL [...] MDReport Verified Date/Time: 06/13/2017 11:15:44 Reading Location: [facility] Radiology Reading Room URINALYSIS W/ REFLEX URINE [id number] 16:47:00 Test Item Value Reference Range Interpretation [...] (test code = 2795) RAD, CHEST, 2 [id number] 12:51:00Reason for exam:->PRE OP TESTINGFINAL REPORT Chest, [...] MDReport Verified Date/Time: 05/15/2017 12:51:37 Reading Location: [address] Radiology Reading Room [facility] METABOLIC [id number] 12:14:00 Test Item Value Reference Range Interpretation [...] NOT APPLICABLE FOR DIALYSIS PATIEN TS. PROTHROMBIN [id number] 11:26:00 Test Item Value Reference Range Interpretation Comments PROTIME (BEAKER) (test code = 15.0 seconds 11.7-14.7 H 759) INR (BEAKER) (test code = 370) 1.2 <=5.9 RECOMMENDED COUMADIN/WARFARIN INR THERAPY RANGESSTANDARD DOSE: 2.0 - 3.0 Includes: PROPHYLAXIS forvenous thrombosis, systemic embolization; TREATMENT for venous thrombosis and/or pulmonary embolus.HIGH RISK: Target INR is 2.5-3.5 for patients with mechanical heart valves.[id number] 11:26:00 Test Item Value Reference Range Interpretation Comments PARTIAL THROMBOPLASTIN TIME 38.1 seconds 22.5-36.0 H (BEAKER) (test code = 760) CBC W/PLT COUNT & AUTO [id number] 11:18:00 Test Item Value Reference Range Interpretation [...] 0-1 PERCENT (BEAKER) (test code = 2801) Ldbzsqpkw4426-67-05 15:01:006.7[facility] HawwfciImdiezuro6308-61-90 17:57:0010.0 [facility] JjnclcsDppsbvvhm6752-29-25 17:57:49622Genkqsaf HermannChemistry 2013-05-05 17:57:39333Wmgidhiw TszlmtpRsngnodmh3732-01-79 17:57:0021[facility] KsnqbmsNycruigkj9411-35-95 17:57:72992Cikltbus SchijrvUqizeydkz0840-52-20 17:57:002.6[facility] PjyqrsnHupchpgas3985-45-46 17:57:02012 MEQ/LMem[facility] Cfioyrnlp2852-99-30 17:57:004.3 MEQ/LMemorial AlukmmcPcpfaombt1788-87-50 17:57:000.9[facility] AzhqzkhLinfmpdpu7096-09-32 17:57:003[facility] Zmxatjwag9145-16-60 17:57:00 Test Item Value Reference Range Interpretation Comments BUN/CREAT (test code = BUN/CREAT) 3 1 6-25 [facility] KkxjqofHzijkkioa4127-83-41 17:57:003.2[facility] HermannChemistry 2013-05-05 17:57:008.4[facility] OcwhmaqMccmehkro8808-70-53 17:57:0018[facility] YswbhndAdnysdqbd3302-26-52 17:57:0030[facility] BubuhqgEiqtehmkd9799-39-78 17:57:0086[facility] GxrcbxyDmkjorcat7101-04-51 17:57:001.020[facility] [place] Kejescyau4083-33-93 17:57:008.0[facility] NzbpxncDmjksuant5298-66-58 17:57:0010.0 [facility] UhdskfsKxqdeeemh4307-21-66 17:57:02789Dobragnk HermannChemistry 2013-05-05 17:57:50871Tuaptxux PmrqsigWadrrvorw4904-41-47 17:57:0021[facility] PqufbulJiutewjve1786-09-30 17:57:49597Kornocaa OasaskuNxhsjnmub8901-76-47 17:57:002.6[facility] LottgshWrrkfrhkj6440-06-68 17:57:19121 MEQ/LMem[facility] [place] [place] Gwqmzbbkw0658-29-84 17:57:004.3 MEQ/LMemorial SjcyzblKknhocmxk4952-33-52 17:57:000.9[facility] FkyvhqdTbukmjfag8477-16-05 17:57:003[facility] Rfjijlshx4962-32-01 17:57:00 Test Item Value Reference Range Interpretation Comments BUN/CREAT (test code = BUN/CREAT) 3 10-01 [facility] NwdsobmKoqrfbwvd2474-33-57 17:57:003.2[facility] HermannChemistry 2013-05-05 17:57:008.4[facility] UgmtkkfMxhgodzmc9807-64-60 17:57:0018[facility] VkhjrigZnsmcqwuw8888-52-92 17:57:0030[facility] XvmasmeGkhplkifm5372-24-50 17:57:0086[facility] UcnqvcpMfdtpotne8277-68-89 17:57:001.020[facility] Dhbnivvac7880-19-20 17:57:008.0[facility] CrcqzscDvrumlnncb6515-14-74 17:57:0012.2 [facility] VxqztotPiokafjlin3688-55-93 17:57:0038.4[facility] HermannHematology 2013-05-05 17:57:83384 K/CMemorial JtltawxPaaothodra0381-56-80 17:57:0048 [facility] GrixumlPyxkopwokw3849-78-92 17:57:0012.2[facility] HermannHematology 2013-05-05 17:57:0038.4[facility] QrexzmoCshwzsoytk9654-36-28 17:57:80266 K/CMM Memorial UnfzhyqRhnimyridi8337-45-35 17:57:0048[facility] HermannSerology 2013-05-05 17:57:00PositiveMemorial WnlrgyaZliffbrp4486-63-09 17:57:00Positive [facility] OupnvhmXsxdnnvrxe2516-47-04 17:57:00YellowMemorial HermannUrinalysis 2013-05-05 17:57:00OccasionalMemorial SnagpktKsvoszhtjt5572-56-54 17:57:00Yellow Memorial UluyczvDjbirlsvnk1875-77-33 17:57:00OccasionalMemorial HermannChemistry 2012-04-24 15:54:92833Kxkoitsu IutsgtnWzsbuicdi7631-57-90 15:54:11866Crfyubsb XbzcmumKvmwrzcaq2558-08-89 15:54:0038[facility] FqxljxjTmidomyfr5311-27-76 15:54:0072Memorial RymxxvhBlbhfkhnl2327-20-20 15:54:30880 MEQ/LMem[facility] [place] Rmienirfo1170-68-87 15:54:004.1 MEQ/LMemorial PytyyhxKbmnisglq7540-18-18 15:54:001.0[facility] IhcvyheNtxjgnmhv0396-33-55 15:54:007[facility] Hcconedqi9110-06-21 15:54:00 Test Item Value Reference Range Interpretation Comments BUN/CREAT (test code = BUN/CREAT) 7 1 6-25 [facility] HrdhohyTrkgsmetk3849-55-16 15:54:003.7[facility] HermannChemistry 2012-04-24 15:54:008.4[facility] VfmeyhgJzjhapzpo1853-02-07 15:54:0029[facility] YrnxbkaFopovbehe5167-33-21 15:54:0039[facility] SwfqsocMqofgtfel6968-44-90 15:54:0076Mem[facility] AcatpvvOscrhuujw5411-00-30 15:54:004.680[facility] Xcgdabclwr9494-57-67 15:54:0012.4[facility] QgodztiXprmrrcphc1315-43-28 15:54:00 37.6Memorial QgrkkogEdsmqmkwyt7149-49-78 15:54:58194 K/CMMMemorial [place] Tfcxgfbcde4360-78-55 15:54:00YellowMemorial NeloqviCasoxsctvw9218-91-64 15:54:00 OccasionalMemorial QvwycjmYajacxhyx9282-35-94 21:40:92767Bnmswwth [place] Ebeqabbzi8715-66-08 21:40:77723Zvrksywi TzcqrmpMonqnjkil6778-91-89 21:40:0034 Memorial FofpedeGqeirojbz6367-94-14 21:40:0049[facility] HermannChemistry 2011-03-14 21:40:56702 MEQ/LMemorial FprbgbwTeyfcapil8855-17-94 21:40:004.1 MEQ/LMemorial LgrzqzmKbtgdihjn4718-78-77 21:40:000.9[facility] HermannChemistry 2011-03-14 21:40:006[facility] BzipbjnKrasolsfc1670-50-54 21:40:00 Test Item Value Reference Range Interpretation Comments BUN/CREAT (test code = BUN/CREAT) 7 1 6-25 Memorial YrclukqGerdmbjew4699-38-75 21:40:003.9[facility] HermannChemistry 2011-03-14 21:40:009.0[facility] PieyjwfPohpoabwf6564-67-78 21:40:0027Mem[facility] WwbnpvvNvsukdble0446-40-03 21:40:0034Memorial XpcxrueZnfknoxra5584-41-39 21:40:0076Memorial CgpzhiiEjthaiahh8044-35-00 21:40:000.524[facility] [place] Hwwllrcsoc2263-98-41 21:40:0012.2[facility]orial AilogmcGhscjgucye2621-45-64 21:40:00 35.7Memorial VizbfknTytwwfxlnl9229-13-74 21:40:91374 K/CMMMemorial Gerson Usucubmptr3161-51-93 21:40:00YellowMemorial RqixmktZhunawuomj4479-18-09 20:30:00 11.6Memorial AqpomcrTnvfwimmjn3308-55-89 20:30:0035.3[facility] HermannHematology 2010-07-21 20:30:13023 K/CMMMemorial RijyveeEbrqqslzid2684-39-31 20:30:0042 [facility] HlvclqzFtdjagreoc9973-52-25 19:49:00YellowMemorial HermannUrinalysis 2010-06-21 19:49:00OccasionalMemorial JwlajxqXqgjkvbho1884-43-33 17:45:98220 Memorial YyrurxhRyznsjdgi0108-47-77 17:45:004.5[facility] HermannChemistry 2010-05-24 17:45:000.9[facility] TqqswhiKogjcwyoq1896-86-13 17:45:0013Memorial McvfbozYeufejczk1270-77-28 17:45:00 Test Item Value Reference Range Interpretation Comments BUN/CREAT (test code = BUN/CREAT) 14 1 6-25 [facility] FgfywwlGplugrbmc5215-89-94 17:45:004.2[facility] HermannChem[facility] 2010-05-24 17:45:009.1[facility] HzmwsvoRynonwfqa9102-65-74 17:45:0015Memorial LrvjfjhItqtpdmbg9505-40-67 17:45:0012Memorial LiabtuhKgszsdrbk5196-98-03 17:45:0067Mem[facility] YgycfaoCldjkfett1414-93-30 17:45:000.680[facility] [place] Wbuxwjyfcfq9671-42-22 17:45:00 Test Item Value Reference Range Interpretation Comments PT PATIENT (test code = PT PATIENT) 13.6 s 12.0-14.7 [facility] EmnwdrzFciftvdwvun7959-84-05 17:45:00 Test Item Value Reference Range Interpretation Comments INR (test code = INR) 1.02 1 0.85-1.17 [facility] TxqizfmRhtyardrtq7239-67-79 17:45:0012.7[facility]annHematology 2010-05-24 17:45:0038.1[facility] CbrlerpRcpzblsecv2819-59-26 17:45:51722 K/CMM [facility] EbcidozSfcnfldqyr5404-89-37 17:45:00[facility] LUMBAR WO CLINICAL INDICATION: M51.36 Other intervertebral disc degeneration, lumbar regionMODALITY: Siemens [place] CT (Iterative dose reduction techniques are utilized.)TECHNIQUE: [...]
[2021-07-05] MEDS ORDERED: ONDANSETRON 4 MG/2 ML VIAL ONE (21:29)
[2021-07-05] MEDS ORDERED: HYDROMORPHONE HCL 1 MG/ML INJ ONE (21:29)
[2021-07-05] MEDS ORDERED: NA CHLORIDE 0.9% 1,000 ML ONE (21:29)
--- NOTE | 2021-07-05 21:44 | RAD REPORT ---
EXAM DESCRIPTION: RAD - Chest Single View - 07/05/2021 9:32 pm CLINICAL HISTORY: COUGH Chest pain. COMPARISON: Chest Single View dated 05/20/2021; Chest Single View dated 05/18/2021; Chest Single View d ated 05/16/2021; Chest Single View dated 12/27/2020 FINDINGS: Portable technique limits examination quality. The lungs are grossly clear. Mild baseline chronic prominent interstitial lung markings noted. The he art is moderately enlarged. No displaced fractures.
[2021-07-05 21:48] LABS: Absolute Lymphocytes (CBC) 1.7 K/uL (0.7-4.9); Hematocrit 31.4 % (36.0-45.0); MPV 8.2 fL (7.6-11.3)
--- NOTE | 2021-07-05 21:51 | RAD REPORT ---
EXAM DESCRIPTION: CT - Spine Lumbar Wo Con - 07/05/2021 9:41 pm CLINICAL HISTORY: Radiculopathy. LOWER BACK PAIN COMPARISON: Spine Lumbar Wo Con dated 04/12/2020 TECHNIQUE: Axial noncontrast CT imaging of the lumbar spine was performed with coronal and sagittal re-formatted images. All CT scans are performed using dose optimization technique as appropriate and may include automated exposure control or mA/KV adjustment according to patient size. FINDINGS: Advanced multilevel degenerative changes are present with dextroscoliosis of the lumbar sp ine. Degenerative changes are most severe at L3-4 where large laminectomy defect is present. Postsurgical changes are also present at L5-S1 with no laminectomy noted. No acute fracture is seen. IMPRESSION: No acute lumbar spine abnormality seen. Advanced lumbar degenerative changes are present, most severe at L3-4.
[2021-07-05 21:53] LABS: Protime INR 1.2
[2021-07-05 22:04] LABS: Anisocytosis 1+; Blood Morphology Comment NOTED (NOT SEEN); Platelet Estimate ADEQ; White Blood Cell Scan OK (OK)
[2021-07-05 22:07] LABS: Albumin 3.2 g/dL (3.4-5.0); Bilirubin Direct 0.1 mg/dL (0-0.2); Bilirubin Total 0.2 mg/dL (0.2-1.0); Protein, Total 7.5 g/dL (6.4-8.2); Troponin High Sensitivity 13.2 pg/mL (<58.9)
--- NOTE | 2021-07-05 22:31 | EDPHYS ---
Physician Documentation [facility] Name: Emma Rico Age: 71 yrs Sex: Female : 1950 Arrival Date: 07/05/2021 Time: 20:14 Bed 26 Private MD: Lamonte Hernandez HPI: 07/05 21:28 This 71 yrs old Female presents to ER via Wheelchair with complaints of Low martin Back Pain. 21:28 The patient presents with pain that is acute. The symptoms are located in the low back, martin lumbar area, left low back and right low back. The pain does not radiate. The problem was sustained during a fall, from a seated position. Onset: The symptoms/episode began/occurred 2 day(s) ago. Modifying factors: The patient symptoms are alleviated by remaining still, rest, the patient symptoms are aggravated by any movement, bending, standing, walking. Associated signs and symptoms: The patient has no apparent associated signs or symptoms. The patient has not experienced similar symptoms in the past. Historical: - Allergies: 20:45 Codeine; vc1 20:45 Morphine; vc1 20:45 Sulfa (Sulfonamide Antibiotics); vc1 - Home Meds: 20:45 levothyroxine oral [Active]; pregabalin Oral [Active]; pramipexole Oral [Active]; vc1 memantine oral [Active]; rosuvastatin 5 mg oral cpSP 1 cap [Active]; spironolactone 50 mg Oral tab 1 tab 2 times per day [Active]; famotidine 20 mg Oral tab 1 tab every 12 hours [Active]; acetazolamide 250 mg Oral tab 1 tab once daily [Active]; fentanyl in pain pump [Active]; desvenlafaxine succinate 100 mg oral Tb24 1 tab once daily [Active]; mirtazapine 15 mg Oral TbDi 1 tab once daily [Active]; quetiapine 150 mg oral Tb24 1 tab once daily [Active]; - Immunization history:: Adult Immunizations up to date, Client reports receiving the 1st dose of the Covid vaccine, Flu vaccine is up to date. - Social history:: Smoking status: Patient denies any tobacco usage or history of. - Family history:: not pertinent. ROS: 21:28 Constitutional: Negative for fever, chills, and weight loss, Eyes: Negative for injury, martin pain, redness, and discharge, ENT: Negative for injury, pain, and discharge, Neck: Negative for injury, pain, and swelling, Cardiovascular: Negative for chest pain, palpitations, and edema, Respiratory: Negative for shortness of breath, cough, wheezing, and pleuritic chest pain, Abdomen/GI: Negative for abdominal pain, nausea, vomiting, diarrhea, and constipation, : Negative for injury, bleeding, discharge, and swelling, MS/Extremity: Negative for injury and deformity, Skin: Negative for injury, rash, and discoloration, Neuro: Negative for headache, weakness, numbness, tingling, and seizure, Psych: Negative for depression, anxiety, suicide ideation, homicidal ideation, and hallucinations, Allergy/Immunology: Negative for hives, rash, and allergies, Endocrine: Negative for neck swelling, polydipsia, polyuria, polyphagia, and marked weight changes, Hematologic/Lymphatic: Negative for swollen nodes, abnormal bleeding, and unusual bruising. 21:28 Back: Positive for decreased range of motion, pain at rest, pain with movement, of the lumbar area, left low back and right low back. Exam: 21:28 Constitutional: This is a well developed, well nourished patient who is awake, alert, martin and in no acute distress. Head/Face: Normocephalic, atraumatic. Eyes: Pupils equal round and reactive to light, extra-ocular motions intact. Lids and lashes normal. Conjunctiva and sclera are non-icteric and not injected. Cornea within normal limits. Periorbital areas with no swelling, redness, or edema. ENT: Nares patent. No nasal discharge, no septal abnormalities noted. Tympanic membranes are normal and external auditory canals are clear. Oropharynx with no redness, swelling, or masses, exudates, or evidence of obstruction, uvula midline. Mucous membranes moist. Neck: Trachea midline, no thyromegaly or masses palpated, and no cervical lymphadenopathy. Supple, full range of motion without nuchal rigidity, or vertebral point tenderness. No Meningismus. Chest/axilla: Normal chest wall appearance and motion. Nontender with no deformity. No lesions are appreciated. Cardiovascular: Regular rate and rhythm with a normal S1 and S2. No gallops, murmurs, or rubs. Normal PMI, no JVD. No pulse deficits. Respiratory: Lungs have equal breath sounds bilaterally, clear to auscultation and percussion. No rales, rhonchi or wheezes noted. No increased work of breathing, no retractions or nasal flaring. Abdomen/GI: Soft, non-tender, with normal bowel sounds. No distension or tympany. No guarding or rebound. No evidence of tenderness throughout. Female : Normal external genitalia. Skin: Warm, dry with normal turgor. Normal color with no rashes, no lesions, and no evidence of cellulitis. MS/ Extremity: Pulses equal, no cyanosis. Neurovascular intact. Full, normal range of motion. Neuro: Awake and alert, GCS 15, oriented to person, place, time, and situation. Cranial nerves II-XII grossly intact. Motor strength 5/5 in all extremities. Sensory grossly intact. Cerebellar exam normal. Normal gait. Psych: Awake, alert, with orientation to person, place and time. Behavior, mood, and affect are within normal limits. 21:28 Back: pain, that is moderate, ROM is painful, normal spinal alignment noted, CVA tenderness, is absent, muscle spasm, is not present. Vital Signs: 21:20 BP 181 / 97; Pulse 65; Resp 20 S; Pulse Ox 95% on R/A; Pain 10/10; bb 23:53 BP 142 / 81; Pulse 77; Resp 16; Pulse Ox 95% on R/A; Pain 0/10; bb MDM: 21:04 Patient medically screened. [facility] 21:32 Differential diagnosis: arthritis, strain, fracture. Data reviewed: vital signs, nurses [facility] notes, lab test result(s), EKG, radiologic studies, CT scan, plain films. Data interpreted: site monitor: rate is 78 beats/min, rhythm is regular, Pulse oximetry: on room air is 98 %. Test interpretation: by ED physician or midlevel provider: plain radiologic studies. Counseling: I had a detailed discussion with the patient and/or guardian regarding: the historical points, exam findings, and any diagnostic results supporting the discharge/admit diagnosis, lab results, radiology results, the need for further work-up and treatment in the hospital. 07/05 21:05 Order name: Basic Metabolic Panel; Complete Time: 22: [facility] 07/05 21:05 Order name: CBC with Diff; Complete Time: 22:27 [facility] 07/05 21:05 Order name: LFT's; Complete Time: 22:27 [facility] 07/05 21:05 Order name: Magnesium; Complete Time: : [facility] 07/05 21:05 Order name: NT PRO-BNP; Complete Time: 22:27 [facility] 07/05 21:05 Order name: PT-INR; Complete Time: 22:27 [facility] 07/05 21:05 Order name: Troponin HS; Complete Time: 22:27 [facility] 07/05 21:05 Order name: XRAY Chest (1 view); Complete Time: 22:27 [facility] 07/05 21:05 Order name: Urine Culture [facility] 07/05 21:05 Order name: Lipase; Complete Time: : [facility] 07/05 21:06 Order name: SARS-COV-2 RT PCR (Document "Date of Onset" if Symptomatic) [facility] 07/05 22:04 Order name: CBC Smear Scan; Complete Time: :27 [facility] 07/06 05:06 Order name: CBC with Automated Diff [facility] 07/06 05:14 Order name: Basic Metabolic Panel [facility] 07/05 21:05 Order name: EKG; Complete Time: 21:06 [facility] 07/05 21:05 Order name: Cardiac monitoring [facility] 07/05 21:05 Order name: EKG - Nurse/Tech [facility] 07/05 21:05 Order name: IV Saline Lock [facility] 07/05 21:05 Order name: Labs collected and sent [facility] 07/05 21:05 Order name: O2 Per Protocol [facility] 07/05 21:05 Order name: O2 Sat Monitoring [facility] 07/05 21:05 Order name: Urine Dipstick-Ancillary (obtain specimen) [facility] 07/05 21:05 Order name: CT Lumbar Spine Wo Con; Complete Time: 22:27 [facility] Administered Medications: 21:25 Drug: Dilaudid (HYDROmorphone) 1 mg {Note: RASS 0.} Route: IVP; Site: right upper arm; bb 22:00 Follow up: Response: Pain is decreased; RASS: Alert and Calm (0) bb 21:28 Drug: NS 0.9% 1000 ml Route: IV; Rate: 125 ml/hr; Site: right upper arm; bb 21:30 Drug: Zofran (Ondansetron) 4 mg Route: IVP; Site: right upper arm; bb 23:17 Follow up: Response: No adverse reaction bb 21:38 CANCELLED (Duplicate Order): Dilaudid (HYDROmorphone) 1 mg IVP once; RASS on ADMIN: bb Combtv4, Very Agttd3, Agttd2, Rstlss1, AlertClm0, Drwsy-1, Lt Sdtn-2, Mod Sdtn-3, Dp Sdtn-4, UnArsble-5 21:38 CANCELLED (Duplicate Order): Zofran (Ondansetron) 4 mg IVP once; over 2 minutes bb 23:16 Drug: Potassium Effervescent Tablet 50 mEq Route: PO; bb 23:16 Drug: Decadron - Dexamethasone 10 mg Route: IVP; Site: right antecubital; bb Disposition Summary: 07/05/21 22:30 Hospitalization Ordered Hospitalization Status: Observation martin Provider: Robbin Cabello cha Condition: Stable martin Problem: new martin Symptoms: have improved martin Bed/Room Type: Standard [facility] Location: [facility] ER HOLD(07/06/21 06:25) eb Room Assignment: ERHOLD-(07/06/21 06:25) eb1 Diagnosis - Low back pain martin - Morbid (severe) obesity due to excess calories martin - Hypokalemia martin - Pulmonary fibrosis, unspecified martin Forms: - Medication Reconciliation Form martin - SBAR form martin Signatures: Dispatcher [employer] EDMS Lamonte Geller MD MD cha Ballard, Brenda, RN RN bb Aziza Love RN RN eb1 Estefania Che RN RN vc1 Corrections: (The following items were deleted from the chart) 21:38 21:38 Dilaudid (HYDROmorphone) 1 mg IVP once; RASS on ADMIN: Combtv4, Very Agttd3, bb Agttd2, Rstlss1, AlertClm0, Drwsy-1, Lt Sdtn-2, Mod Sdtn-3, Dp Sdtn-4, UnArsble-5 ordered. bb 21:38 21:38 Zofran (Ondansetron) 4 mg IVP once; over 2 minutes ordered. bb bb 23:47 22:30 Telemetry/MedSurg (observation) martin eb1 23:47 22:30 martin eb1 07/06 05:39 07/05 23:47 [facility] ER HOLD eb1 eb1 07/06 05:39 07/05 23:47 ERHOLD- eb1 eb1 07/06 06:25 05:39 Telemetry/MedSurg (observation) eb1 eb1 06:25 05:39 404 eb1 eb1
--- NOTE | 2021-07-05 22:31 | ER ---
Nurse's Notes [facility] Name: Emma Rico Age: 71 yrs Sex: Female : 1950 Arrival Date: 07/05/2021 Time: 20:14 Bed 26 Private MD: Diagnosis: Low back pain;Morbid (severe) obesity due to excess calories;Hypokalemia;Pulmonary fibrosis, unspecified Presentation: 07/05 20:43 Chief complaint: Patient states: "My lower back and my legs hurt so bad I'm having vc1 trouble walking." Granddaughter states that for the last 2 days pt can barely get out of bed and when she does it is only for about 10 minutes at a time. Coronavirus screen: Vaccine status: Patient reports receiving the 1st dose of the Covid vaccine. Moderna. 20:43 Method Of Arrival: Wheelchair vc1 20:45 Ebola Screen: No symptoms or risks identified at this time. Risk Assessment: Do you vc1 want to hurt yourself or someone else? Patient reports no desire to harm self or others. Onset of symptoms was July 03, 2021. 20:45 Acuity: LENNY 3 vc1 Triage Assessment: 20:51 General: Appears uncomfortable, Behavior is cooperative, appropriate for age. Pain: vc1 Complains of pain in lumbar area, left low back and right low back Pain radiates to right leg and left leg. : Reports urinating small amounts more often. Historical: - Allergies: 20:45 Codeine; vc1 20:45 Morphine; vc1 20:45 Sulfa (Sulfonamide Antibiotics); vc1 - Home Meds: 20:45 levothyroxine oral [Active]; pregabalin Oral [Active]; pramipexole Oral [Active]; vc1 memantine oral [Active]; rosuvastatin 5 mg oral cpSP 1 cap [Active]; spironolactone 50 mg Oral tab 1 tab 2 times per day [Active]; famotidine 20 mg Oral tab 1 tab every 12 hours [Active]; acetazolamide 250 mg Oral tab 1 tab once daily [Active]; fentanyl in pain pump [Active]; desvenlafaxine succinate 100 mg oral Tb24 1 tab once daily [Active]; mirtazapine 15 mg Oral TbDi 1 tab once daily [Active]; quetiapine 150 mg oral Tb24 1 tab once daily [Active]; - Immunization history:: Adult Immunizations up to date, Client reports receiving the 1st dose of the Covid vaccine, Flu vaccine is up to date. - Social history:: Smoking status: Patient denies any tobacco usage or history of. - Family history:: not pertinent. Screenin:20 Abuse screen: Denies threats or abuse. Nutritional screening: No deficits noted. bb Tuberculosis screening: No symptoms or risk factors identified. Fall Risk Fall in past 12 months (25 points). Secondary diagnosis (15 points) impaired mobility, IV access (20 points). Ambulatory Aid- None/Bed Rest/Nurse Assist (0 pts). Mental Status- Overestimates/Forgets Limitations (15 pts.). Assessment: 21:20 General: Appears uncomfortable, Behavior is agitated, anxious. Pain: Complains of pain bb in back Pain currently is 10 out of 10 on a pain scale. Neuro: Level of Consciousness is awake, alert, obeys commands, Oriented to person, place, time, situation. Cardiovascular: Capillary refill < 3 seconds Patient's skin is warm and dry. Respiratory: Airway is patent Respiratory effort is unlabored. GI: Abdomen is obese. Derm: Skin is pink, warm \\T\\ dry. Musculoskeletal: Reports pain in back. 21:43 Reassessment: pt to CT scan via stretcher accompanied by manufacturing technology professor. bb 23:53 Reassessment: pt sleeping, eyes closed, resp unlabored, arouses easily report given to bb Tammy HERNANDEZ. Vital Signs: 21:20 BP 181 / 97; Pulse 65; Resp 20 S; Pulse Ox 95% on R/A; Pain 10/10; bb 23:53 BP 142 / 81; Pulse 77; Resp 16; Pulse Ox 95% on R/A; Pain 0/10; bb ED Course: 20:14 Patient arrived in ED. kz 20:25 Initial lab(s) drawn, by me, sent to lab. Accessed peripheral vein via ultrasound, bb utilizing dynamic ultrasound technique using per hospital protocol. Powerglide mid-line 18g 10 cm with good blood return and flushes easily pt tolerated well. 20:45 Triage completed. vc1 21:04 Lamonte Geller MD is Attending Physician. martin 21:20 Patient has correct armband on for positive identification. Bed in low position. Call bb light in reach. Side rails up X 1. Adult w/ patient. Pulse ox on. NIBP on. 21:34 XRAY Chest (1 view) In Process Unspecified. EDMS 21:43 CT Lumbar Spine Wo Con In Process Unspecified. EDMS 22:29 Robbin Cabello MD is Hospitalizing Provider. martin 22:44 Shelli Lowe, RN is Primary Nurse. bb 23:27 SARS-COV-2 RT PCR (Document "Date of Onset" if Symptomatic) Sent. bb 23:28 COVID swab sent to lab. bb 23:54 No provider procedures requiring assistance completed. Patient admitted, IV remains in bb place. Administered Medications: 21:25 Drug: Dilaudid (HYDROmorphone) 1 mg {Note: RASS 0.} Route: IVP; Site: right upper arm; bb 22:00 Follow up: Response: Pain is decreased; RASS: Alert and Calm (0) bb 21:28 Drug: NS 0.9% 1000 ml Route: IV; Rate: 125 ml/hr; Site: right upper arm; bb 21:30 Drug: Zofran (Ondansetron) 4 mg Route: IVP; Site: right upper arm; bb 23:17 Follow up: Response: No adverse reaction bb 21:38 CANCELLED (Duplicate Order): Dilaudid (HYDROmorphone) 1 mg IVP once; RASS on ADMIN: bb Combtv4, Very Agttd3, Agttd2, Rstlss1, AlertClm0, Drwsy-1, Lt Sdtn-2, Mod Sdtn-3, Dp Sdtn-4, UnArsble-5 21:38 CANCELLED (Duplicate Order): Zofran (Ondansetron) 4 mg IVP once; over 2 minutes bb 23:16 Drug: Potassium Effervescent Tablet 50 mEq Route: PO; bb 23:16 Drug: Decadron - Dexamethasone 10 mg Route: IVP; Site: right antecubital; bb Outcome: 22:30 Decision to Hospitalize by Provider. martin 23:54 Admitted to ER Hold. Please see [facility] for further documentation. bb 23:54 Condition: stable 23:54 Instructed on the need for admit. 07/06 13:10 Patient left the ED. ss Signatures: Dispatcher [employer] Lamonte Joseph MD MD cha Ballard, Brenda, RN RN bb Yuliya Calle, RN RN ss Estefania Che RN RN vc1 Marya Garcia
[2021-07-05] MEDS ORDERED: dexAMETHasone 10 MG/ML VIAL ONE (22:52)
[2021-07-05] MEDS ORDERED: POTASSIUM 25 MEQ EFFERV TAB ONE (22:52)
[2021-07-06] MEDS ORDERED: ONDANSETRON 4 MG/2 ML VIAL IV PRN (00:24)
[2021-07-06] MEDS: NA CHLORIDE 0.9% 1,000 ML IV SCH ×2 (00:24→10:24)
[2021-07-06] MEDS ORDERED: ACETAMINOPHEN 500 MG TAB PO PRN (00:24)
[2021-07-06 01:22] VITALS: BMI 40.7
[2021-07-06] MEDS ORDERED: ALBUTEROL 2.5 MG/3 ML NEB SOL ONE ×2 (02:20→09:12)
[2021-07-06] MEDS: ALBUTEROL 2.5 MG/3 ML NEB SOL NEB SCH ×2 (02:20→08:56)
[2021-07-06] MEDS: HYDROMORPHONE HCL 1 MG/ML INJ IV PRN ×2 (02:34→09:49)
[2021-07-06] MEDS ORDERED: NA CHLORIDE 0.9% 1,000 ML ONE (02:40)
[2021-07-06] MEDS ORDERED: HYDROMORPHONE HCL 1 MG/ML INJ ONE (02:40)
[2021-07-06 05:01] LABS: Absolute Lymphocytes (CBC) 0.7 K/uL (0.7-4.9); Hematocrit 30.5 % (36.0-45.0); Lymphocytes % 10.7 % (15.3-44.8); MPV 8.3 fL (7.6-11.3); RBC Red Blood Cell Count 4.05 M/uL (3.86-4.86)
[2021-07-06] MEDS ORDERED: FAMOTIDINE 20 MG/2 ML VIAL IV ONE (08:02)
[2021-07-06] MEDS ORDERED: HYDROMORPHONE HCL 2 MG/ML inj ONE (08:45)
[2021-07-06] MEDS ORDERED: FAMOTIDINE 20 MG/2 ML VIAL IV SCH (09:00)
[2021-07-06 10:21] VITALS: O2SAT 96
[2021-07-06 11:16] VITALS: BP 144/79; TEMP 98.1
--- NOTE | 2021-07-07 05:05 | SS ---
Date of Discharge: 07/06/2021 Chief Complaint: Back pain. History Of Present Illness: This is a 71-year-old female patient who has chronic back pain and sees her physician on a regular basis, who is her pain management physician. The patient says that recent ly her pain management physician suggested further intervention to her back, but because of the cost issue, did not plan that procedure and about 2 weeks ago as she was walking using her walker all of a sudden, her walker started to fall forward and she was trying to grab her walker and during this pro cess she jerked her back and started to have worsening of the lower back pain. No radiation of the p ain to the legs. She continues to take her medications regularly as prescribed, but yesterday she ca me into the emergency room with worsening of pain as she was not able to control it with her medicati ons at home and after she was evaluated she was admitted to the hospital. Overnight, with pain medic ation her condition has improved and this morning when I saw her, she was very comfortable and report ed that her pain was under significant better control. She does have appointment to see her pain man agement specialist next week. Medications: List reviewed. Review of Systems: Musculoskeletal as mentioned above. All other systems reviewed and negative. Allergies: TO MORPHINE, CODEINE, AND SULFA. Past Surgical History: Reviewed. Social History: Negative for smoking, alcohol use. Immunization History: Had first dose of COVID-19 vaccine, December 07, 2020, Family History: Father with swine flu. Mother and had anxiety, depression, and myocardial infarction. Sister with myocardial infarction. Past Medical History: Significant for dementia, restless legs syndrome, hypothyroidism, hypertension , paroxysmal atrial fibrillation, compression fracture of lumbar spine, osteoarthritis at multiple si gely, fibromyalgia, osteoporosis, vitamin D deficiency, and COVID-19 infection in December 2020. Physical Examination: Vital Signs: Temperature 97, pulse 59, respiratory rate 20, blood pressure 116/63, oxygen saturation 92% on 2 L nasal cannula oxygen, height 5 feet 3 inches, weight 230 pounds. General: Awake, alert, oriented, not in distress. HEENT: Head atraumatic, normocephalic. Conjunctivae nonerythematous. Sclerae white. Mouth, no thr ush or edema noted. Ears/Nose, no mass, lesion, discharge noted. Neck: Supple. No JVD, lymph nodes, bruit, thyromegaly noted. Lungs: Bilateral good equal air entry. Clear to auscultation. No rhonchi. No rales. Heart: Normal heart sounds, no murmur or gallop. Abdomen: Soft, bowel sounds normal. No guarding, rigidity, tenderness, mass, hepatosplenomegaly, dis tention, or bruit noted. Extremities: No leg edema. No calf tenderness. Skin: No rash, ulcer, cellulitis. Lymphatics: No lymph node enlargement in neck, supraclavicular, infraclavicular region. Neuro: No focal neurological deficit. Chest: Unremarkable. External Genitalia: Deferred. Rectal: Deferred. Laboratory Data: Yesterday, white count 8.3, hemoglobin 10.3, and platelet count 218. This morning white count 6.3, hemoglobin 9.7, platelets 200. Yesterday, sodium 146, potassium 3, chloride 114, bi carb 29, BUN 10, creatinine 0.90, glucose 92. Liver function tests unremarkable. Serum albumin leve l 3.2, lipase 21. This morning, sodium 147, potassium 4, chloride 115, bicarb 29, BUN 10, creatinine 0.83, glucose 163. Chest x-ray, no acute cardiopulmonary changes. CAT scan of the lumbar spine kemal ws advanced lumbar spine degenerative changes. No acute findings. Hospital Course: After patient was evaluated in the ER she was admitted to the hospital. Overnight, her condition remained stable. Pain actually improved significantly with the pain medication given to her. This morning, she was doing much better. She was able to get in and out of bed to the [facility] as I noted when I was in the room with her. She has appointment to see her pain managemen t specialist for next week. She was advised to keep that appointment and she was also advised to com e see me next week for followup and call office for the appointment to see me next week either on Sun or Sunday. The patient was instructed to continue all prior home medications. Final Diagnoses: 1.Lumbar spondylosis. 2.Osteoarthritis, multiple sites. 3.Anemia, chronic. 4.Hypokalemia. 5.Hypertension. 6.Hypothyroidism. 7.Restless legs syndrome. 8.Dementia. 9.Paroxysmal atrial fibrillation. 10.Fibromyalgia. 11.Osteoporosis. 12.Vitamin D deficiency. BO/MODL Voice ID: [id number] Report ID: [id number]
--- NOTE | 2021-07-11 11:30 | EKG ---
Test Date: 2021-07-06 Test Time: 07:14:01 Mirror Machine Feeder: RANJANA MEASUREMENT RESULTS: Intervals: Rate: 78 RI: 162 QRSD: 86 QT: 398 QTc: 453 [place]: P: 65 RI: 162 QRS: 266 T: 58 INTERPRETIVE STATEMENTS: Normal sinus rhythm with sinus arrhythmia Low voltage QRS Possible Anterolateral infarct, age undetermined Abnormal ECG Compared to ECG 05/16/2021 19:37:12 Low QRS voltage now present Right superior axis no longer present Myocardial infarct finding still present Electronically Signed On 07-11-21 11:14:59 CDT by Mihir Ortiz
== END 2021-07-06 13:10 | disposition home or self-care (01) ==
LOC: ER 20:06 → ERHOLD 22:34
PROVIDERS: ADMIT Internal Medicine; ATTEND Internal Medicine
DX: M47.816 Spondylosis without myelopathy or radiculopathy, lumbar region (principal); M15.9 Polyosteoarthritis, unspecified; D64.9 Anemia, unspecified; E87.6 Hypokalemia; I10 Essential (primary) hypertension; E03.9 Hypothyroidism, unspecified; G25.81 Restless legs syndrome; F03.90 Unspecified dementia, unspecified severity, without behavioral disturbance, psychotic disturbance, mood disturbance, and anxiety; I48.0 Paroxysmal atrial fibrillation; M79.7 Fibromyalgia; M81.0 Age-related osteoporosis without current pathological fracture; E55.9 Vitamin D deficiency, unspecified; E66.01 Morbid (severe) obesity due to excess calories; Z68.41 Body mass index [BMI] 40.0-44.9, adult; Z20.822 Contact with and (suspected) exposure to COVID-19; Z86.16 Personal history of COVID-19; Z88.2 Allergy status to sulfonamides; Z88.6 Allergy status to analgesic agent; Z79.899 Other long term (current) drug therapy; Z82.49 Family history of ischemic heart disease and other diseases of the circulatory system
CPT/HCPCS: 93005; 87088; 85025 ×2; 87086; 80048 ×2; 36415; 83735; 85610; 80076; 84484; 83690; 83880; 72131; 71045; 94640; 99285; U0003; J1170 ×3; J1100; J7030 ×2; J2405; G0378 ×3

== ENCOUNTER 2021-08-16 23:04 | Inpatient (IN) | payer OTHER ==
--- OUTSIDE RECORDS SUMMARY | 2021-08-16 23:11 | XMS REPORT | Continuity of Care Document ---
:1950 Author Organization [facility] t Address [address] [place] [address] Care Team Providers Name Role Phone Maty Kim MD Primary Care Physician [phone] CULLEN Attending Clinician Unavailable BENNIE Attending Clinician Unavailable Saskia SULLIVAN Attending Clinician Unavailable BENNIE Admitting Clinician Unavailable Saskia SULLIVAN Admitting Clinician Unavailable Payers Payer Name Policy Type Policy Number Effective Date Expiration Date S bertrand MEDICARE PART A [id number] 2015 AND B 00:00:00 Problems Condition Condition Condition Status Onset Resolution Last Treating Co mments Source Name Details Category Date Date Treatment Clinician Date Chronic Chronic Disease Active NPI:118 pain pain 9-04 [id number] 00:00: 00 Wound, Wound, Disease Active NPI:118 surgical, surgical, 5-15 [id number] infected infected 00:00: 00 Pre-op Pre-op Disease Active NPI:118 testing testing 5-15 [id number] 00:00: 00 Hypothyroi Hypothyroi Disease Active N PI:118 dism dism 3-12 [id number] 00:00: 00 Depression Depression Disease Active N PI:118 with with -12 [id number] anxiety anxiety 00:00: 00 Obesity Obesity Disease Active NPI:118 3-12 [id number] 00:00: 00 Pain Pain Disease Active NPI:118 3-12 [id number] 00:00: 00 Essential Essential Disease Active NPI :118 hypertensi hypertensi 3-12 [id number] on on 00:00: 00 Chronic Chronic Disease Active NPI:118 pain pain 2-16 [id number] disorder disorder 00:00: 00 Depression Problem Active 2015-11-02 M emoria with 03:35:47 l anxiety [place] Depression with anxiety Active Problem 11/02/2015 eCW: Gaurav LebronBria Morbid Problem Active 2015-11-02 Memor ia Obesity 03:35:47 l Morbid [place] Obesity Active Problem 11/02/2015 eCW: Gaurav LebronBria [...] disorder, depressed Active Problem 11/02/2015 eCW: Gaurav LebronBria Low Back Problem Active 2015-11-02 Mem oria Pain 03:35:47 l Low Back [place] n Pain Active Problem 11/02/2015 eCW: Gaurav LebronBria Fibromyalg Problem Active 2015-11-02 M emoria ia 03:35:47 l [place] Fibromyalg ia Active Problem 6 eCW: Gaurav Fraser Routine Diagnosis Active 2014-01-08 Me moria medical 02:02:51 l exam Routine [place] medical exam Active Diagnosis 01/08/2014 eCW: Gaurav Fraser Screen Diagnosis Active 2014-03-18 Mem oria Mammogram 03:04:03 l NEC Screen [place] Mammogram NEC Active Diagnosis 03/18/2014 eCW: Gaurav Fraser Vitamin D Problem Active 2015-11-02 Me moria Deficiency 03:35:47 l Vitamin [place] D Deficiency Active Problem 11/02/2015 eCW: Gaurav Fraser Pre-op Diagnosis Active 2015-02-24 Mem oria evaluation 03:03:42 l Pre-op [place] evaluation Active Diagnosis 02/24/2015 eCW: Gaurav Fraser Pre-op Diagnosis Active 2015-05-21 Mem oria examinatio 04:05:13 l n Pre-op [place] examinatio n Active Diagnosis 05/21/2015 eCW: Gaurav Fraser Restless Problem Active 2016-05-18 Mem oria legs 03:03:33 l syndrome Restless Herm ila legs syndrome Active Problem 05/18/2016 eCW: Gaurav LebronBria Depression Problem Active 2016-05-18 M emoria with 03:03:33 l anxiety [place] Depression with anxiety Active Problem 05/18/2016 eCW: Gaurav LebronBria Spinal Problem Active 2016-05-18 Memor ia stenosis 03:03:33 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[place] 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 Active Problem 05/18/2016 eCW: Gaurav Fraser Vitamin D Problem Active 2016-05-18 Me moria deficiency 03:03:33 l Vitamin [place] D deficiency Active Problem 05/18/2016 eCW: Gaurav LebronBria Dorsalgia, Problem Active 2016-05-18 M emoria unspecifie 03:03:33 l d [place] Dorsalgia, unspecifie d Active Problem 05/18/2016 eCW: Gaurav LebronBria Osteoporos Problem Active 2016-05-18 M emoria is 03:03:33 l [place] Osteoporos is Active Problem 7 eCW: Gaurav [...] 2016-05-18 M emoria d OA 03:03:33 l [place] Generalize d OA Active Problem 05/18/2016 eCW: Gaurav Fraser Cacosmia Diagnosis Active 2014-11-21 M emoria 02:25:30 l Cacosmia Bl[place] n Active Diagnosis 11/21/2014 eCW: Gaurav Fraser Memory Diagnosis Active 2015-05-21 Mem oria deficits 03:39:44 l Memory [place] deficits Active Diagnosis 05/21/2015 eCW: Gaurav Fraser Conjunctiv Diagnosis Active 2015-05-21 Memoria itis 04:11:35 l [place] Conjunctiv itis Active Diagnosis 05/21/2015 eCW: Gaurav Fraser Hypertensi Problem Active 2016-05-18 M emoria on 03:03:33 l [place] Hypertensi on Active Problem 7 eCW: Gaurav Fraser Obesity Problem Active 2016-05-18 Inder homar 03:03:33 l Obesity [place] Active Problem 05/18/2016 eCW: Gaurav Fraser Conjunctiv [...] ITIS, UNSPECIFIE D SITE 10/01/2018 Diagnosis 9 [place] Z95.810 Diagnosis 2018-2018-10-22 2018-10-22 Memoria PRESENCE 10-01 15:01:34 15:01:34 l OF Z95.810 00:00: [place] AUTOMATIC PRESENCE 00 (IMPLANTAB OF LE) AUTOMATIC CARDIAC (IMPLANTAB DEFIBRILLA LE) TOR CARDIAC DEFIBRILLA TOR 10/01/2018 Diagnosis 9 [place] E78.5 Diagnosis 2018-2018-10-22 2018-10-22 Memoria HYPERLIPID 6 15:01:34 15:01:34 l EMIA, E78.5 00:00: [place] UNSPECIFIE HYPERLIPID 00 D EMIA, UNSPECIFIE D 10/01/2018 Diagnosis 9 [place] K21.9 Diagnosis 2018-2018-10-22 2018-10-22 Memoria GASTRO-ESO 6 15:01:34 15:01:34 l PHAGEAL K21.9 00:00: [place] REFLUX GASTRO-ESO 00 DISEASE PHAGEAL WITHOUT REFLUX ESOPHAGITI DISEASE S WITHOUT ESOPHAGITI S 10/01/2018 Diagnosis 9 [place] R52 PAIN, Diagnosis 2018-10-22 2018-10-22 Memoria UNSPECIFIE 10-01 15:01:34 15:01:34 l D R52 00:00: [place] PAIN, 00 UNSPECIFIE D 10/01/2018 Diagnosis 9 [place] R53.1 Diagnosis 2018-10-22 2018-10-22 Memoria WEAKNESS 10-01 15:01:34 15:01:34 l R53.1 00:00: [place] WEAKNESS 00 9 Diagnosis 10/22/2018 [place] L30.9 Diagnosis 2018-10-22 2018-10-22 Memoria DERMATITIS 10-01 15:01:34 15:01:34 l , L30.9 00:00: [place] UNSPECIFIE DERMATITIS 00 D , UNSPECIFIE D 10/01/2018 Diagnosis 9 [place] W19.XXXA Diagnosis 2018-10-22 2018-10-22 Memoria UNSPECIFIE 10-01 15:01:34 15:01:34 l D FALL, W19.XXXA 00:00: Linda nn INITIAL UNSPECIFIE 00 ENCOUNTER D FALL, INITIAL ENCOUNTER 10/01/2018 Diagnosis 9 [place] E66.9 Diagnosis 2018-10-22 2018-10-22 Memoria OBESITY, 6 15:01:34 15:01:34 l UNSPECIFIE E66.9 00:00: Linda nn D OBESITY, 00 UNSPECIFIE D 10/01/2018 Diagnosis 9 [place] M43.26 Diagnosis 2019-2018-10-22 2018-10-22 Memoria FUSION OF 6- 15:01:34 15:01:34 l SPINE, M43.26 00:00: [place] LUMBAR FUSION OF 00 REGION SPINE, LUMBAR REGION 10/01/2018 Diagnosis 9 [place] F32.9 Diagnosis 2017-2018-10-22 2018-10-22 Memoria MAJOR 3- 15:01:34 15:01:34 l DEPRESSIVE 2.9 00:00: Linda nn DISORDER, MAJOR 00 SINGLE DEPRESSIVE EPISODE, DISORDER, UNSPECIFIE SINGLE D EPISODE, UNSPECIFIE D 07/03/2017 Diagnosis 9 [place] R25.1 Diagnosis 2017-2018-10-22 2018-10-22 Memoria TREMOR, 07-03 15:01:34 15:01:34 l UNSPECIFIE R25.1 00:00: Linda nn D TREMOR, 00 UNSPECIFIE D 07/03/2017 Diagnosis 9 [place] Z98.890 Diagnosis 2018-10-22 2018-10-22 Memoria OTHER 3 15:01:34 15:01:34 l SPECIFIED [place] [id number] 00:00: Herm ila POSTPROCED OTHER 00 URAL SPECIFIED STATES POSTPROCED URAL STATES 07/03/2017 Diagnosis 9 [place] M54.5 LOW Diagnosis 2017-2018-10-22 2018-10-22 Memoria BACK PAIN 3 15:01:34 15:01:34 l M54.5 00:00: [place] LOW BACK 00 PAIN 07/03/2017 Diagnosis 9 [place] I10 Diagnosis 2017-2018-10-22 2018-10-22 Memoria ESSENTIAL 3- 15:01:34 15:01:34 l (PRIMARY) I10 00:00: [place] HYPERTENSI ESSENTIAL 00 ON (PRIMARY) HYPERTENSI ON 07/03/2017 Diagnosis 9 [place] Z96.9 Diagnosis 2017-2018-10-22 2018-10-22 Memoria PRESENCE 3 15:01:34 15:01:34 l OF 96.9 00:00: [place] FUNCTIONAL PRESENCE 00 IMPLANT, OF UNSPECIFIE FUNCTIONAL D IMPLANT, UNSPECIFIE D 07/03/2017 Diagnosis 9 [place] Chronic Diagnosis 2017-2018-10-22 2018-10-22 Memoria pain 07-03 15:01:34 15:01:34 l syndrome Chronic 00:00: Linda nn (disorder) pain 00 syndrome (disorder) 07/03/2017 Diagnosis 9 [place] Z97.8 Diagnosis 2017-2018-10-22 2018-10-22 Memoria PRESENCE 07-03 15:01:34 15:01:34 l OF OTHER Z97.8 00:00: [place] SPECIFIED PRESENCE 00 DEVICES OF OTHER SPECIFIED DEVICES 07/03/2017 Diagnosis 9 [place] M79.7 Diagnosis 2017-2018-10-22 2018-10-22 Memoria FIBROMYALG 07-03 15:01:34 15:01:34 l IA 79.7 00:00: [place] FIBROMYALG 00 IA 07/03/2017 Diagnosis 9 [place] E03.9 Diagnosis 2018-10-22 2018-10-22 Memoria HYPOTHYROI 07-03 15:01:34 15:01:34 l DISM, E03.9 00:00: [place] UNSPECIFIE HYPOTHYROI 00 D DISM, UNSPECIFIE D 07/03/2017 Diagnosis 9 [place] Z90.710 Diagnosis 2018-10-22 2018-10-22 Memoria ACQUIRED 07-03 15:01:34 15:01:34 l ABSENCE OF Z90.710 00:00: Her mcguire BOTH ACQUIRED 00 CERVIX AND ABSENCE OF UTERUS BOTH CERVIX AND UTERUS 07/03/2017 Diagnosis 9 [place] F41.9 Diagnosis 2018-10-22 2018-10-22 Memoria ANXIETY 07-03 15:01:34 15:01:34 l DISORDER, F41.9 00:00: Blaise n UNSPECIFIE ANXIETY 00 D DISORDER, UNSPECIFIE D 07/03/2017 Diagnosis 9 [place] Z96.643 Diagnosis 2017-2018-10-22 2018-10-22 Memoria PRESENCE 07-03 15:01:34 15:01:34 l OF 96.643 00:00: [place] ARTIFICIAL PRESENCE 00 HIP JOINT, OF BILATERAL ARTIFICIAL HIP JOINT, BILATERAL 07/03/2017 Diagnosis 9 [place] Allergies, Adverse Reactions, Alerts Allergy Allergy Status Severity Reaction(s) Onset Inactive Treating Comm ents Source Name Type Date Date Clinician acetamin acetamin Active Memori a ophen-co ophen-co 6-25 l deine deine 00:00: 00 Morphine Morphine Active Memori a 6-25 l 00:00: Codeine Codeine Active Memoria 3-27 l 00:00: Sulfa Sulfa Active Memoria Drugs Drugs 3-27 l 00:00: 00 Codeine Propensi Active Nausea And NPI :118 ty to Vomiting 2-06 [id number] adverse 00:00: reaction 00 s Sulfa Propensi Active Hives NPI:118 (Sulfona ty to 2-06 [id number] mide adverse 00:00: Antibiot reaction 00 ics) s codeine codeine Active vomiting Memori a 9-26 l 00:00: Social History Social Habit Start Date Stop Date Quantity Comments Source Alcohol intake 2017-12-11 2017-12-11 Current NPI:[id number] 00:00:00 00:00:00 non-drinker of alcohol (finding) Tobacco use and 2017-05-15 2017-05-15 Never used NPI:[id number] exposure 00:00:00 00:00:00 Language: 2016-01-03 2016-01-03 [facility] 00:00:00 00:00:00 [birth year] NPI:[id number] 00:00:00 00:00:00 Smoking Status Start Date Stop Date Source Social History [facility] Never smoker Medications Ordered Filled Start Stop Current Ordering Indication Dosage Frequency Signature Comments Components Source Medication Medication Date Date Medication? Clinician (SIG) Name Name oxyCODONE Yes Give 1 Memori a HCl Tablet 7-01 tablet by l 10 MG 01:00: mouth [place] 00 three times a day for pain [...] capsule by l MG 12:00: mouth four [place] 00 times a day related to FIBROMYALG IA (M79.7) DESVENLAFAX Yes TAKE 1 TAB Memoria INE ER 50MG 6-26 BY MOUTH l TAB ER 24H 12:00: EVERY DAY [place] 00 Ferrous Yes Give 1 Memoria Sulfate 6-26 tablet by l Tablet 325 12:00: mouth one He r[place] (65 Fe) MG 00 time a day for supplement ation Vitamin D2 Yes GIVE [id number] M emoria Tablet 6-26 UNIT BY l 12:00: MOUTH ONE [place] 00 TIME A DAY EVERY WED GlycoLax [...] TABLET BY l MG 12:00: MOUTH ONE [place] 00 TIME A DAY Pristiq Yes Give [...] mirtazapine Yes 15mg QD Take 15 mg NPI:118 (REMERON) 9-06 by mouth [id number] 7 30 MG 16:19: nightly . tablet 24 temazepam Yes 15mg Take 15 mg ARCHITECT NAVAL I:118 (RESTORIL) 9-06 by mouth 06115 47 15 mg 16:19: every capsule 24 night as needed for Sleep. lidocaine Yes 1{patch Q24H Place 1 [employer] [place] I:118 (LIDODERM) 9 } patch onto 462 5620 5 % patch 16:19: the skin 24 daily Remove & Discard patch within 12 hours or as directed by . pramipexole Yes .5mg QD Take 0.5 [place] I:118 (MIRAPEX) 9-06 mg by [id number] 0.5 MG 16:19: mouth tablet 24 nightly. docusate 2018-0 Yes 100mg Q.5D Take 100 NPI: 118 sodium 9-06 mg by [id number] (COLACE) 16:19: mouth 2 100 MG 24 (two) capsule times daily. oxymetazoli 2018-0 Yes 2{spray 2 sprays NPI:118 ne (AFRIN) 9-06 } by Nasal 78380 47 0.05 % 16:19: route 2 nasal spray 24 (two) times daily as needed for Congestion . diphenhydrA 2018-0 Yes 25mg Take 25 mg NPI:118 MINE 9-06 by mouth [id number] (ZZZQUIL) 16:19: every 25 mg 24 night as capsule needed (sleep). MENTHOL 2018-0 Yes 1{patch Q.5D Apply 1 NPI: 118 (ICY HOT 9-06 } patch [id number] PATCH TOP) 16:19: topically 24 2 (two) times daily. gabapentin 2018-0 Yes 300mg Q.[id number] Take 300 NPI:118 (NEURONTIN) 9-06 [id number] mg by 4 [id number] 300 MG 16:19: 3D mouth 3 capsule 24 (three) times daily. oxyCODONE 2018-0 Yes 15mg Take 15 mg [place] [place] I:118 (ROXICODONE 9-06 by mouth [id number] 957 ) 15 MG 16:19: every 4 immediate 24 (four) release hours as tablet needed for Pain. furosemide 2018-0 Yes hypertensio 10mg QD Take 10 mg NPI:118 (LASIX) 20 9-06 n by mouth 38199 47 MG tablet 16:19: daily. 24 levothyroxi 2018-0 Yes 112ug Take 112 N PI:118 ne 9-06 mcg by [id number] (SYNTHROID, 16:19: mouth LEVOTHROID) 24 Every 112 MCG morning on tablet an empty stomach. pregabalin 2018-0 Yes 225mg Q.5D Take 225 [place] I:118 (LYRICA) 9-06 mg by [id number] 225 MG 16:19: mouth 2 capsule 24 (two) times daily. clotrimazol 2018-0 Yes Q.5D Apply NPI:1 18 e-betametha 9-06 topically [id number] sone 16:19: 2 (two) (LOTRISONE) 24 times 1-0.05 % daily. cream cholecalcif 2018-0 Yes [id number] Q7D Take NPI: 118 brady, 9-06 50,316 [id number] vitamin D3, 16:19: Units by (DECARA) 24 mouth once 50,000 unit a week. capsule desvenlafax 2018-0 Yes 50mg QD Take 50 mg NPI:118 ine 9-06 by mouth [id number] succinate 16:19: daily. (PRISTIQ) 24 50 MG 24 hr tablet mirtazapine 2018-0 Yes 15mg QD Take 15 mg NPI:118 (REMERON) 9-06 by mouth 192714 7 30 MG 16:19: nightly . tablet 24 temazepam 2018-0 Yes 15mg Take 15 mg [place] I:118 (RESTORIL) 9-06 by mouth 76394 47 15 mg 16:19: every capsule 24 night as needed for Sleep. lidocaine 2018-0 Yes 1{patch Q24H Place 1 AR[place]ECT [place] I:118 (LIDODERM) 9-06 } patch onto 462 2847 5 % patch 16:19: the skin 24 daily Remove & Discard patch within 12 hours or as directed by . pramipexole 2018-0 Yes .5mg QD Take 0.5 [place] I:118 (MIRAPEX) 9-06 mg by [id number] 0.5 MG 16:19: mouth tablet 24 nightly. docusate 2018-0 Yes 100mg Q.5D Take 100 NPI: 118 sodium 9-06 mg by [id number] (COLACE) 16:19: mouth 2 100 MG 24 (two) capsule times daily. oxymetazoli 2018-0 Yes 2{spray 2 sprays NPI:118 ne (AFRIN) 9-06 } by Nasal 35742 47 0.05 % 16:19: route 2 nasal spray 24 (two) times daily as needed for Congestion . diphenhydrA 2018-0 Yes 25mg Take 25 mg NPI:118 MINE 9-06 by mouth [id number] (ZZZQUIL) 16:19: every 25 mg 24 night as capsule needed (sleep). MENTHOL 2018-0 Yes 1{patch Q.5D Apply 1 NPI: 118 (ICY HOT 9-06 } patch [id number] PATCH TOP) 16:19: topically 24 2 (two) times daily. gabapentin 2018-0 Yes 300mg Q.48910596 Take 300 NPI:118 (NEURONTIN) 12-13 [id number] mg by 4 [id number] 300 MG 16:19: 3D mouth 3 capsule 24 (three) times daily. oxyCODONE 2017-0 Yes 15mg Take 15 mg [place] I:118 (ROXICODONE 06 by mouth [id number] 847 ) 15 MG 16:19: every 4 immediate 24 (four) release hours as tablet needed for Pain. furosemide Yes hypertensio 10mg QD Take 10 mg NPI:118 (LASIX) 20 9-06 n by mouth 98856 47 MG tablet 16:19: daily. 24 levothyroxi 2017-0 Yes 112ug Take 112 N PI:118 ne 9-06 mcg by [id number] (SYNTHROID, 16:19: mouth LEVOTHROID) 24 Every 112 MCG morning on tablet an empty stomach. pregabalin 2017-0 Yes 225mg Q.5D Take 225 AR[place]ECT [place] I:118 (LYRICA) 9-06 mg by [id number] 225 MG 16:19: mouth 2 capsule 24 (two) times daily. clotrimazol 2017-0 Yes Q.5D Apply NPI:1 18 e-betametha 12-13 topically [id number] 2937 sone 16:19: 2 (two) (LOTRISONE) 24 times 1-0.05 % daily. cream cholecalcif 2017-0 Yes [id number] Q7D Take NPI: 118 brady, 12-13 50,909 [id number] vitamin D3, 16:19: Units by (DECARA) 24 mouth once 50,000 unit a week. capsule desvenlafax 0 Yes 50mg QD Take 50 mg NPI:118 ine 9-06 by mouth [id number] succinate 16:19: daily. (PRISTIQ) 24 50 MG 24 hr tablet Temazepam Yes Give 1 Memori a Capsule 15 4-14 capsule by l MG 05:00: mouth [place] 00 every 24 hours as needed for insomnia Ibuprofen Yes GIVE 1 Memori a Tablet 400 4-12 TABLET BY l MG 20:00: MOUTH [place] 00 THREE TIMES A DAY FOR 7 DAYS OxyCODONE 0 Yes Give 1 Memori a HCl Tablet 4-07 tablet by l 15 MG 16:15: mouth [place] 00 every 6 hours as [...] 4-05 capsule by l MG 20:45: mouth [place] 00 every 24 hours as needed for Insomnia Bisacodyl Yes Give 2 Memori a EC Tablet 4-04 tablet by l Delayed 15:00: mouth [place] Release 5 00 every 24 MG hours as needed for constipati on Acetaminoph Yes Give 2 Inder homar en Tablet 4-02 tablet by l 325 MG 20:45: mouth [place] 00 every 6 hours as needed for pain and fever greater than 100.4 Decara Yes Give [id number] Memor ia Capsule 3-29 [place] [id number] UNIT 12:00: mouth one [place] 00 [...] a Patch 3-28 affected l 12:00: area [place] 00 topically two times a day for [...] 3-28 tablet by l MG 05:00: mouth [place] 00 every 24 hours as needed for sleep for 14 Days Mirtazapine Yes GIVE 1 Inder homar Tablet 30 3-28 TABLET BY l MG 00:00: MOUTH AT [place] 00 BEDTIME Mirapex Yes GIVE 1 Memoria Tablet 0.5 3-28 TABLET BY l MG 00:00: MOUTH AT [place] 00 BEDTIME Lyrica Yes Give 1 Memoria Capsule 225 3-28 capsule by l MG 00:00: mouth two [place] 00 times a day related to FIBROMYALG [...] tablet by l 325 MG 20:45: mouth [place] 00 every 6 hours as needed for pain OxyCODONE Yes Give 1 Memori a HCl Tablet 3-27 tablet by l 15 MG 20:45: mouth [place] 00 every 6 hours as needed for severe pain for 10 Days hydrochloro Yes Brigid Mckinley 1 tab(s) Memoria thiazide-lo 2-08 Bria l sartan 00:00: [place] 00 lorazepam 2016- Yes Brigid Becketto 1 tab(s) Memoria 1-26 Bria l 03:03: [place] 13 levothyroxi 2015-04 Yes Milagros Tejeda 1 tab(s) Memoria ne 0-13 l 02:18: [place] 44 fenofibrate 2015-04 Yes Milagros Tejeda 1 tab(s) Memoria 0-13 l 02:18: [place] 44 Vitamin D3 2015-04 Yes Milagros Tejeda 1 cap(s) Memoria 0-13 l 02:18: [place] 44 mirtazapine 2015-04 Yes Milagros Tejeda 1 tab(s) Memoria 0-13 l 02:18: [place] 44 ibandronate 2015-04 Yes Milagros Tejeda 1 tab(s) Memoria 0-13 l 02:18: [place] 44 zolpidem 2015-04 Yes Milagros Tejeda 1 tab(s) Memoria 0-13 l 02:18: [place] 44 Pristiq 2015-04 Yes Milagros Tejeda 1 tab(s) Memoria 0-13 l 02:18: [place] 44 lidocaine 2015-04 Yes Milagros Tejeda - Me moria 0.5% 0-13 l [facility]-04 Yes Milagros Tejeda 1 patch M emoria 0-13 l 02:18: [place] 44 clonidine 2015-04 Yes Milagros Tejeda 1 tab(s) Memoria 0-13 l 02:18: [place] 44 hydrochloro 2015-04 Yes Milagros Tejeda 1 tab(s) Memoria thiazide-lo 0-13 l sartan 02:18: [place] 44 Lyrica Yes Brigid Becketto 1 cap(s) M emoria 9-26 Bria l 00:00: [place] 00 ergocalcife Yes Milagros Tejeda 1 cap(s) Memoria rol 9-26 l 00:00: [place] 00 clotrimazol Yes Milagros Tejeda 1 noy Memoria e topical 9-26 l 00:00: [place] 00 Vigamox 2016-0 Yes Brandon 1 gtt Inder homar 6-27 Davis l 00:00: [place] 00 PrednisoLON 2015-0 Yes Milagros Tejeda 1 gtt Memoria E Na 6-27 l Phosphate-N 00:00: Bla[place] n a 00 Sulfacetami de Ly[place] 0 Yes Brandon 1 cap(s) Me moria 6-01 Davis l 00:00: [place] 00 Lyrica 0 Yes Brandon 1 cap(s) Me moria 4-29 Davis l 02:37: [place] 52 hydrochloro 0 Yes Brandon 1 tab(s) Memoria thiazide-lo 2-29 Davis l sartan 00:00: [place] 00 benzonatate 0 Yes Brandon 1 cap(s) Memoria 2-12 Davis l 03:39: [place] 44 Lyrica 2014-04 Yes Brandon 1 cap(s) Me moria 1-23 Davis l 00:00: [place] 00 Levaquin 2014-1 Yes Brandon 1 tab(s) Memoria 1-04 Davis l 00:00: [place] 00 ofloxacin 2014-0 Yes Brandon 2 gtt Me moria ophthalmic 9-28 Davis l 00:00: [place] 00 Betamethaso 2014-0 Yes Brandon 1 noy Memoria ne-Clotrima 8-11 [place] l zole 00:00: [place] 00 Montelukast 2014-0 Yes Brandon 1 tab(s) Memoria Sodium 3-30 Davis l 00:00: [place] 00 benzonatate 2014-0 Yes Brandon 1 cap(s) Memoria 3-16 Davis l 00:00: [place] 00 ProAir HFA 2014-0 Yes Brandon 2 puff(s) Memoria 3-16 Davis l 00:00: [place] 00 Betamethaso 2013-1 Yes Brandon 1 noy Memoria ne-Clotrima 2-15 [place] l zole 00:00: [place] 00 tramadol 2013- Yes Brandon 2 tab(s) Memoria 2-10 Davis l 03:04: [place] 03 cyclobenzap 2013- Yes [place] 1 tab(s) Memoria rine 2-10 Davis l 03:04: [place] 03 zolpidem 2013- Yes [place] 1 tab(s) Memoria 0-29 Davis l 00:00: [place] 00 Vitamin D3 2013-0 Yes [place] 1 cap(s) Memoria 9-11 Davis l 00:00: [place] 00 Lyrica 2014-0 Yes Brandon 1 cap(s) Me moria 8-28 Davis l 00:00: [place] 00 Immunizations Ordered Immunization Filled Immunization Date Status Commen ts Source Name Name Influenza (MCR) 2014-03-23 Completed [facility] 00:00:00 [place] Vital Signs Vital Name Observation Time Observation Value Comments Source Systolic (mm Hg) 2018-10-22 11:19:00 Inder rial [place] Diastolic (mm Hg) 2018-10-22 11:19:00 Mem orial [place] Temperature Oral (F) 2018-10-22 11:19:00 98 F [facility] [place] Heart Rate 2018-10-22 11:19:00 53 /min [facility] [place] Respitory Rate 2018-10-22 11:19:00 Memori al [place] Systolic (mm Hg) 2018-10-22 04:28:00 Inder rial [place] Diastolic (mm Hg) 2018-10-22 04:28:00 Mem orial [place] Temperature Oral (F) 2018-10-22 04:28:00 98 F [facility] [place] Heart Rate 2018-10-22 04:28:00 54 /min [facility] [place] Respitory Rate 2018-10-22 04:28:00 Memori al [place] Systolic (mm Hg) 2018-10-21 19:04:00 Inder rial [place] Diastolic (mm Hg) 2018-10-21 19:04:00 Mem orial [place] Temperature Oral (F) 2018-10-21 19:04:00 97 F [facility] [place] Heart Rate 2018-10-21 19:04:00 60 /min [facility] [place] Respitory Rate 2018-10-21 19:04:00 Memori al [place] Systolic (mm Hg) 2018-10-21 11:27:00 Inder rial [place] Diastolic (mm Hg) 2018-10-21 11:27:00 Mem orial [place] Temperature Oral (F) 2018-10-21 11:27:00 98.4 F [facility] [place] Heart Rate 2018-10-21 11:27:00 52 /min [facility] [place] Respitory Rate 2018-10-21 11:27:00 Memori al [place] Systolic (mm Hg) 2018-10-21 03:38:00 Inder rial [place] Diastolic (mm Hg) 2018-10-21 03:38:00 Mem orial [place] Temperature Oral (F) 2018-10-21 03:38:00 98 F [facility] [place] Heart Rate 2018-10-21 03:38:00 52 /min [facility] [place] Respitory Rate 2018-10-21 03:38:00 Memori al [place] Systolic (mm Hg) 2018-10-20 22:12:00 Inder rial [place] Diastolic (mm Hg) 2018-10-20 22:12:00 Mem orial [place] Temperature Oral (F) 2018-10-20 22:12:00 98.6 F [facility] [place] Heart Rate 2018-10-20 22:12:00 74 /min [facility] [place] Respitory Rate 2018-10-20 22:12:00 Memori al [place] Systolic (mm Hg) 2018-10-20 17:59:00 Inder rial [place] Diastolic (mm Hg) 2018-10-20 17:59:00 Mem orial [place] Temperature Oral (F) 2018-10-20 17:59:00 98.2 F [facility] [place] Heart Rate 2018-10-20 17:59:00 69 /min [facility] [place] Respitory Rate 2018-10-20 17:59:00 Memori al [place] Weight 2018-10-20 16:24:05 [facility] [place] Systolic (mm Hg) 2018-10-20 03:36:00 Inder rial [place] Diastolic (mm Hg) 2018-10-20 03:36:00 Mem orial [place] Temperature Oral (F) 2018-10-20 03:36:00 98.4 F [facility] [place] Heart Rate 2018-10-20 03:36:00 51 /min [facility] [place] Respitory Rate 2018-10-20 03:36:00 Memori al [place] Systolic (mm Hg) 2018-10-19 18:45:00 Inder rial [place] Diastolic (mm Hg) 2018-10-19 18:45:00 Mem orial [place] Temperature Oral (F) 2018-10-19 18:45:00 97 F [facility] [place] Heart Rate 2018-10-19 18:45:00 65 /min [facility] [place] Respitory Rate 2018-10-19 18:45:00 Memori al [place] Systolic (mm Hg) 2018-10-19 11:44:00 Inder rial [place] Diastolic (mm Hg) 2018-10-19 11:44:00 Mem orial [place] Temperature Oral (F) 2018-10-19 11:44:00 97.2 F [facility] [place] Heart Rate 2018-10-19 11:44:00 61 /min [facility] [place] Respitory Rate 2018-10-19 11:44:00 Memori al [place] Systolic (mm Hg) 2018-10-19 09:15:00 Inder rial [place] Diastolic (mm Hg) 2018-10-19 09:15:00 Mem orial [place] Temperature Oral (F) 2018-10-19 09:15:00 98.6 F [facility] [place] Heart Rate 2018-10-19 09:15:00 56 /min [facility] [place] Respitory Rate 2018-10-19 09:15:00 Memori al [place] Systolic (mm Hg) 2018-10-18 19:57:00 Inder rial [place] Diastolic (mm Hg) 2018-10-18 19:57:00 [facility] Temperature Oral (F) 2018-10-18 19:57:00 99.1 F [facility] Heart Rate 2018-10-18 19:57:00 60 /min [facility] Respitory Rate 2018-10-18 19:57:00 [facility] [place] Systolic (mm Hg) 2018-10-18 05:51:00 [facility] [place] Diastolic (mm Hg) 2018-10-18 05:51:00 [facility] Temperature Oral (F) 2018-10-18 05:51:00 98.7 F [facility] Heart Rate 2018-10-18 05:51:00 57 /min [facility] Respitory Rate 2018-10-18 05:51:00 [facility] Systolic (mm Hg) 2018-10-17 20:12:00 [facility] Diastolic (mm Hg) 2018-10-17 20:12:00 [facility] Temperature Oral (F) 2018-10-17 20:12:00 97 F [facility] Heart Rate 2018-10-17 20:12:00 56 /min [facility] Respitory Rate 2018-10-17 20:12:00 [facility] Systolic (mm Hg) 2018-10-17 04:21:00 [facility] [place] Diastolic (mm Hg) 2018-10-17 04:21:00 [facility] Temperature Oral (F) 2018-10-17 04:21:00 97.8 F [facility] Heart Rate 2018-10-17 04:21:00 59 /min [facility] Respitory Rate 2018-10-17 04:21:00 [facility] Systolic (mm Hg) 2018-10-16 18:56:00 [facility] [place] Diastolic (mm Hg) 2018-10-16 18:56:00 [facility] Temperature Oral (F) 2018-10-16 18:56:00 97 F [facility] Heart Rate 2018-10-16 18:56:00 70 /min [facility] Respitory Rate 2018-10-16 18:56:00 [facility] Systolic (mm Hg) 2018-10-16 05:26:00 [facility] Diastolic (mm Hg) 2018-10-16 05:26:00 [facility] [place] Temperature Oral (F) 2018-10-16 05:26:00 98.6 F [facility] Heart Rate 2018-10-16 05:26:00 58 /min [facility] Respitory Rate 2018-10-16 05:26:00 [facility] Weight 2018-10-15 17:47:00 [facility] Height 2018-10-15 16:15:00 [facility] Systolic (mm Hg) 2018-10-15 16:03:00 [facility] Diastolic (mm Hg) 2018-10-15 16:03:00 [facility] [place] [facility] Temperature Oral (F) 2018-10-15 16:03:00 98.4 F [facility] Heart Rate 2018-10-15 16:03:00 48 /min [facility] Respitory Rate 2018-10-15 16:03:00 [facility] Systolic (mm Hg) 2018-10-15 06:16:00 [facility] Diastolic (mm Hg) 2018-10-15 06:16:00 [facility] [place] Temperature Oral (F) 2018-10-15 06:16:00 98.6 F [facility] Heart Rate 2018-10-15 06:16:00 58 /min [facility] Respitory Rate 2018-10-15 06:16:00 [facility] Systolic (mm Hg) 2018-10-14 18:41:00 [facility] [place] Diastolic (mm Hg) 2018-10-14 18:41:00 [facility] [place] [facility] Temperature Oral (F) 2018-10-14 18:41:00 97 F [facility] Rate 2018-10-14 18:41:00 59 /min [facility] Respitory Rate 2018-10-14 18:41:00 [facility] Systolic (mm Hg) 2018-10-14 11:44:00 [facility] Diastolic (mm Hg) 2018-10-14 11:44:00 [facility] [place] [facility] Temperature Oral (F) 2018-10-14 11:44:00 97.7 F [facility] Heart Rate 2018-10-14 11:44:00 44 /min [facility] Respitory Rate 2018-10-14 11:44:00 [facility] [place] Systolic (mm Hg) 2018-10-14 05:50:00 [facility] [place] Diastolic (mm Hg) 2018-10-14 05:50:00 [facility] Temperature Oral (F) 2018-10-14 05:50:00 98.2 F [facility] Rate 2018-10-14 05:50:00 45 /min [facility] Respitory Rate 2018-10-14 05:50:00 [facility] Systolic (mm Hg) 2018-10-14 05:46:00 [facility] [place] Diastolic (mm Hg) 2018-10-14 05:46:00 [facility] [facility] Temperature Oral (F) 2018-10-14 05:46:00 98 F [facility] Heart Rate 2018-10-14 05:46:00 72 /min [facility] Respitory Rate 2018-10-14 05:46:00 [facility] Systolic (mm Hg) 2018-10-13 20:41:00 [facility] Diastolic (mm Hg) 2018-10-13 20:41:00 [facility] [place] Temperature Oral (F) 2018-10-13 20:41:00 97.8 F [facility] Rate 2018-10-13 20:41:00 75 /min [facility] Respitory Rate 2018-10-13 20:41:00 [facility] Systolic (mm Hg) 2018-10-13 05:10:00 [facility] Diastolic (mm Hg) 2018-10-13 05:10:00 [facility] [place] Temperature Oral (F) 2018-10-13 05:10:00 98.2 F [facility] Rate 2018-10-13 05:10:00 52 /min [facility] Respitory Rate 2018-10-13 05:10:00 [facility] Systolic (mm Hg) 2018-10-12 20:13:00 [facility] Diastolic (mm Hg) 2018-10-12 20:13:00 [facility] Temperature Oral (F) 2018-10-12 20:13:00 98.9 F [facility] Heart Rate 2018-10-12 20:13:00 65 /min [facility] Respitory Rate 2018-10-12 20:13:00 [facility] Systolic (mm Hg) 2018-10-12 04:07:00 [facility] Diastolic (mm Hg) 2018-10-12 04:07:00 [facility] Temperature Oral (F) 2018-10-12 04:07:00 98.9 F [facility] Heart Rate 2018-10-12 04:07:00 60 /min [facility] Respitory Rate 2018-10-12 04:07:00 [facility] Systolic (mm Hg) 2018-10-11 19:38:00 [facility] Diastolic (mm Hg) 2018-10-11 19:38:00 [facility] Temperature Oral (F) 2018-10-11 19:38:00 97 F [facility] Heart Rate 2018-10-11 19:38:00 54 /min [facility] Respitory Rate 2018-10-11 19:38:00 [facility] Systolic (mm Hg) 2018-10-11 11:23:00 [facility] [place] Diastolic (mm Hg) 2018-10-11 11:23:00 [facility] Temperature Oral (F) 2018-10-11 11:23:00 98.2 F [facility] Rate 2018-10-11 11:23:00 50 /min [facility] Respitory Rate 2018-10-11 11:23:00 [facility] Systolic (mm Hg) 2018-10-11 04:56:00 [facility] [place] Diastolic (mm Hg) 2018-10-11 04:56:00 [facility] Temperature Oral (F) 2018-10-11 04:56:00 98.7 F [facility] Rate 2018-10-11 04:56:00 62 /min [facility] Respitory Rate 2018-10-11 04:56:00 [facility] Systolic (mm Hg) 2018-10-10 18:27:00 [facility] Diastolic (mm Hg) 2018-10-10 18:27:00 [facility] [place] Temperature Oral (F) 2018-10-10 18:27:00 97 F [facility] Heart Rate 2018-10-10 18:27:00 53 /min [facility] Respitory Rate 2018-10-10 18:27:00 [facility] Systolic (mm Hg) 2018-10-10 15:17:00 [facility] Diastolic (mm Hg) 2018-10-10 15:17:00 [facility] Temperature Oral (F) 2018-10-10 15:17:00 98.2 F [facility] Rate 2018-10-10 15:17:00 50 /min [facility] Respitory Rate 2018-10-10 15:17:00 [facility] Systolic (mm Hg) 2018-10-10 04:27:00 [facility] [place] Diastolic (mm Hg) 2018-10-10 04:27:00 [facility] [place] Temperature Oral (F) 2018-10-10 04:27:00 98.6 F [facility] Heart Rate 2018-10-10 04:27:00 64 /min [facility] Respitory Rate 2018-10-10 04:27:00 [facility] [place] Systolic (mm Hg) 2018-10-09 19:57:00 [facility] Diastolic (mm Hg) 2018-10-09 19:57:00 [facility] [place] Temperature Oral (F) 2018-10-09 19:57:00 98.6 F [facility] Rate 2018-10-09 19:57:00 58 /min [facility] Respitory Rate 2018-10-09 19:57:00 [facility] Systolic (mm Hg) 2018-10-09 03:42:00 [facility] Diastolic (mm Hg) 2018-10-09 03:42:00 [facility] Temperature Oral (F) 2018-10-09 03:42:00 98.7 F [facility] Rate 2018-10-09 03:42:00 60 /min [facility] Respitory Rate 2018-10-09 03:42:00 [facility] Systolic (mm Hg) 2018-10-08 18:57:00 [facility] [place] Diastolic (mm Hg) 2018-10-08 18:57:00 [facility] [place] Temperature Oral (F) 2018-10-08 18:57:00 97 F [facility] Rate 2018-10-08 18:57:00 69 /min [facility] Respitory Rate 2018-10-08 18:57:00 [facility] Systolic (mm Hg) 2018-10-08 13:47:00 [facility] Diastolic (mm Hg) 2018-10-08 13:47:00 [facility] [facility] Temperature Oral (F) 2018-10-08 13:47:00 98.4 F [facility] Heart Rate 2018-10-08 13:47:00 50 /min [facility] Resp[facility] Rate 2018-10-08 13:47:00 [facility] Systolic (mm Hg) 2018-10-08 11:28:36 [facility] Diastolic (mm Hg) 2018-10-08 11:28:36 [facility] [facility] Heart Rate 2018-10-08 11:28:36 50 /min [facility] Systolic (mm Hg) 2018-10-08 05:22:00 [facility] [place] Diastolic (mm Hg) 2018-10-08 05:22:00 [facility] Temperature Oral (F) 2018-10-08 05:22:00 98.2 F [facility] Heart Rate 2018-10-08 05:22:00 62 /min [facility] Respitory Rate 2018-10-08 05:22:00 [facility] Systolic (mm Hg) 2018-10-07 19:00:00 [facility] [place] Diastolic (mm Hg) 2018-10-07 19:00:00 [facility] Temperature Oral (F) 2018-10-07 19:00:00 97 F [facility] Heart Rate 2018-10-07 19:00:00 64 /min [facility] Respitory Rate 2018-10-07 19:00:00 [facility] Systolic (mm Hg) 2018-10-07 16:55:00 [facility] Diastolic (mm Hg) 2018-10-07 16:55:00 [facility] [place] Temperature Oral (F) 2018-10-07 16:55:00 98.2 F [facility] Rate 2018-10-07 16:55:00 49 /min [facility] Respitory Rate 2018-10-07 16:55:00 [facility] Systolic (mm Hg) 2018-10-07 12:16:59 [facility] Diastolic (mm Hg) 2018-10-07 12:16:59 [facility] Heart Rate 2018-10-07 12:16:59 49 /min [facility] Systolic (mm Hg) 2018-10-07 03:55:00 [facility] [place] Diastolic (mm Hg) 2018-10-07 03:55:00 [facility] Temperature Oral (F) 2018-10-07 03:55:00 98.2 F [facility] Rate 2018-10-07 03:55:00 60 /min [facility] Respitory Rate 2018-10-07 03:55:00 [facility] [place] Systolic (mm Hg) 2018-10-06 12:16:00 [facility] [place] Diastolic (mm Hg) 2018-10-06 12:16:00 [facility] [place] Temperature Oral (F) 2018-10-06 12:16:00 98.6 F [facility] Rate 2018-10-06 12:16:00 50 /min [facility] Respitory Rate 2018-10-06 12:16:00 [facility] Systolic (mm Hg) 2018-10-06 12:05:38 [facility] [place] Diastolic (mm Hg) 2018-10-06 12:05:38 [facility] [facility] Heart Rate 2018-10-06 12:05:38 50 /min [facility] Systolic (mm Hg) 2018-10-06 04:06:00 [facility] Diastolic (mm Hg) 2018-10-06 04:06:00 [facility] [place] Temperature Oral (F) 2018-10-06 04:06:00 98.4 F [facility] Rate 2018-10-06 04:06:00 62 /min [facility] Respitory Rate 2018-10-06 04:06:00 [facility] Systolic (mm Hg) 2018-10-05 05:22:00 [facility] [place] Diastolic (mm Hg) 2018-10-05 05:22:00 [facility] Temperature Oral (F) 2018-10-05 05:22:00 98.6 F [facility] Rate 2018-10-05 05:22:00 58 /min [facility] Respitory Rate 2018-10-05 05:22:00 [facility] Systolic (mm Hg) 2018-10-04 20:45:00 [facility] [place] Diastolic (mm Hg) 2018-10-04 20:45:00 [facility] Temperature Oral (F) 2018-10-04 20:45:00 98.6 F [facility] Heart Rate 2018-10-04 20:45:00 53 /min [facility] Respitory Rate 2018-10-04 20:45:00 [facility] Systolic (mm Hg) 2018-10-04 13:31:47 [facility] Diastolic (mm Hg) 2018-10-04 13:31:47 [facility] Heart Rate 2018-10-04 13:31:47 44 /min [facility] Systolic (mm Hg) 2018-10-04 05:03:00 [facility] [place] Diastolic (mm Hg) 2018-10-04 05:03:00 [facility] Temperature Oral (F) 2018-10-04 05:03:00 98.7 F [facility] Heart Rate 2018-10-04 05:03:00 58 /min [facility] Respitory Rate 2018-10-04 05:03:00 [facility] Diastolic (mm Hg) 2018-10-03 19:43:00 [facility] Temperature Oral (F) 2018-10-03 19:43:00 97 F [facility] Rate 2018-10-03 19:43:00 62 /min [facility] Respitory Rate 2018-10-03 19:43:00 [facility] [place] Systolic (mm Hg) 2018-10-03 19:43:00 [facility] Systolic (mm Hg) 2018-10-03 12:54:02 [facility] [place] Diastolic (mm Hg) 2018-10-03 12:54:02 [facility] Heart Rate 2018-10-03 12:54:02 58 /min [facility] Systolic (mm Hg) 2018-10-03 05:20:00 [facility] Diastolic (mm Hg) 2018-10-03 05:20:00 [facility] [facility] Temperature Oral (F) 2018-10-03 05:20:00 98.6 F [facility] Rate 2018-10-03 05:20:00 50 /min [facility] Respitory Rate 2018-10-03 05:20:00 [facility] Systolic (mm Hg) 2018-10-02 20:13:00 [facility] Diastolic (mm Hg) 2018-10-02 20:13:00 [facility] Temperature Oral (F) 2018-10-02 20:13:00 98.9 F [facility] Heart Rate 2018-10-02 20:13:00 52 /min [facility] Respitory Rate 2018-10-02 20:13:00 [facility] Systolic (mm Hg) 2018-10-02 15:42:00 [facility] [place] Diastolic (mm Hg) 2018-10-02 15:42:00 [facility] Temperature Oral (F) 2018-10-02 15:42:00 98.6 F [facility] Heart Rate 2018-10-02 15:42:00 53 /min [facility] Respitory Rate 2018-10-02 15:42:00 [facility] Systolic (mm Hg) 2018-10-02 13:39:16 [facility] [place] Diastolic (mm Hg) 2018-10-02 13:39:16 [facility] Heart Rate 2018-10-02 13:39:16 53 /min [facility] Systolic (mm Hg) 2018-10-02 07:17:00 [facility] Diastolic (mm Hg) 2018-10-02 07:17:00 [facility] Temperature Oral (F) 2018-10-02 07:17:00 98.2 F [facility] Rate 2018-10-02 07:17:00 58 /min [facility] Respitory Rate 2018-10-02 07:17:00 [facility] [place] Systolic (mm Hg) 2018-10-02 00:57:00 [facility] [place] Diastolic (mm Hg) 2018-10-02 00:57:00 [facility] Temperature Oral (F) 2018-10-02 00:57:00 98.7 F [facility] Respitory Rate 2018-10-02 00:57:00 [facility] Heart Rate 2018-10-02 00:57:00 57 /min [facility] Weight 2018-10-01 23:47:00 [facility] Temperature Oral (F) 2017-07-26 10:42:00 97.8 F [facility] Rate 2017-07-26 10:42:00 69 /min [facility] Respitory Rate 2017-07-26 10:42:00 [facility] [place] Systolic (mm Hg) 2017-07-26 10:42:00 [facility] Diastolic (mm Hg) 2017-07-26 10:42:00 [facility] [place] Systolic (mm Hg) 2017-07-26 05:12:00 [facility] Diastolic (mm Hg) 2017-07-26 05:12:00 [facility] Temperature Oral (F) 2017-07-26 05:12:00 97.8 F [facility] Rate 2017-07-26 05:12:00 68 /min [facility] Respitory Rate 2017-07-26 05:12:00 [facility] Systolic (mm Hg) 2017-07-25 10:55:00 [facility] [place] Diastolic (mm Hg) 2017-07-25 10:55:00 [facility] [place] Temperature Oral (F) 2017-07-25 10:55:00 98.4 F [facility] Heart Rate 2017-07-25 10:55:00 86 /min [facility] Respitory Rate 2017-07-25 10:55:00 [facility] [place] Systolic (mm Hg) 2017-07-25 04:51:00 [facility] [place] Diastolic (mm Hg) 2017-07-25 04:51:00 [facility] Temperature Oral (F) 2017-07-25 04:51:00 97.8 F [facility] Heart Rate 2017-07-25 04:51:00 67 /min [facility] Respitory Rate 2017-07-25 04:51:00 [facility] [place] Systolic (mm Hg) 2017-07-24 21:09:00 [facility] Diastolic (mm Hg) 2017-07-24 21:09:00 [facility] Temperature Oral (F) 2017-07-24 21:09:00 99.1 F [facility] Heart Rate 2017-07-24 21:09:00 81 /min [facility] Respitory Rate 2017-07-24 21:09:00 [facility] Systolic (mm Hg) 2017-07-24 15:25:00 [facility] [place] Diastolic (mm Hg) 2017-07-24 15:25:00 [facility] [facility] Temperature Oral (F) 2017-07-24 15:25:00 98.6 F [facility] Rate 2017-07-24 15:25:00 95 /min [facility] Respitory Rate 2017-07-24 15:25:00 [facility] [place] Systolic (mm Hg) 2017-07-24 09:38:00 [facility] Diastolic (mm Hg) 2017-07-24 09:38:00 [facility] Temperature Oral (F) 2017-07-24 09:38:00 98 F [facility] Rate 2017-07-24 09:38:00 82 /min [facility] Respitory Rate 2017-07-24 09:38:00 [facility] [place] Systolic (mm Hg) 2017-07-24 01:29:00 [facility] [place] Diastolic (mm Hg) 2017-07-24 01:29:00 [facility] [place] Temperature Oral (F) 2017-07-24 01:29:00 98 F [facility] Rate 2017-07-24 01:29:00 75 /min [facility] Respitory Rate 2017-07-24 01:29:00 [facility] Systolic (mm Hg) 2017-07-23 10:35:00 [facility] [place] Diastolic (mm Hg) 2017-07-23 10:35:00 [facility] Temperature Oral (F) 2017-07-23 10:35:00 99.8 F [facility] Heart Rate 2017-07-23 10:35:00 83 /min [facility] Respitory Rate 2017-07-23 10:35:00 [facility] Systolic (mm Hg) 2017-07-22 18:11:00 [facility] [place] Diastolic (mm Hg) 2017-07-22 18:11:00 [facility] [facility] Temperature Oral (F) 2017-07-22 18:11:00 98.2 F [facility] Heart Rate 2017-07-22 18:11:00 70 /min [facility] Respitory Rate 2017-07-22 18:11:00 [facility] Systolic (mm Hg) 2017-07-22 10:50:00 [facility] Diastolic (mm Hg) 2017-07-22 10:50:00 [facility] Temperature Oral (F) 2017-07-22 10:50:00 98 F [facility] Rate 2017-07-22 10:50:00 62 /min [facility] Respitory Rate 2017-07-22 10:50:00 [facility] Systolic (mm Hg) 2017-07-21 18:56:00 [facility] Diastolic (mm Hg) 2017-07-21 18:56:00 [facility] Temperature Oral (F) 2017-07-21 18:56:00 97.7 F [facility] Rate 2017-07-21 18:56:00 67 /min [facility] Respitory Rate 2017-07-21 18:56:00 [facility] Systolic (mm Hg) 2017-07-21 10:51:00 [facility] Diastolic (mm Hg) 2017-07-21 10:51:00 [facility] Temperature Oral (F) 2017-07-21 10:51:00 97.7 F [facility] Heart Rate 2017-07-21 10:51:00 74 /min [facility] Respitory Rate 2017-07-21 10:51:00 [facility] Systolic (mm Hg) 2017-07-20 20:03:00 [facility] [place] Diastolic (mm Hg) 2017-07-20 20:03:00 [facility] Temperature Oral (F) 2017-07-20 20:03:00 98.6 F [facility] Heart Rate 2017-07-20 20:03:00 83 /min [facility] Respitory Rate 2017-07-20 20:03:00 [facility] [place] Systolic (mm Hg) 2017-07-20 17:57:00 [facility] [place] Diastolic (mm Hg) 2017-07-20 17:57:00 [facility] [place] Temperature Oral (F) 2017-07-20 17:57:00 97.8 F [facility] Rate 2017-07-20 17:57:00 82 /min [facility] Respitory Rate 2017-07-20 17:57:00 [facility] Systolic (mm Hg) 2017-07-20 05:53:00 [facility] [place] Diastolic (mm Hg) 2017-07-20 05:53:00 [facility] Temperature Oral (F) 2017-07-20 05:53:00 97.3 F [facility] Heart Rate 2017-07-20 05:53:00 63 /min [facility] Respitory Rate 2017-07-20 05:53:00 [facility] Systolic (mm Hg) 2017-07-19 19:09:00 [facility] [place] Diastolic (mm Hg) 2017-07-19 19:09:00 [facility] [place] Temperature Oral (F) 2017-07-19 19:09:00 98.4 F [facility] Rate 2017-07-19 19:09:00 88 /min [facility] Respitory Rate 2017-07-19 19:09:00 [facility] [place] Systolic (mm Hg) 2017-07-19 12:57:00 [facility] [place] Diastolic (mm Hg) 2017-07-19 12:57:00 [facility] [place] Temperature Oral (F) 2017-07-19 12:57:00 98.7 F [facility] Heart Rate 2017-07-19 12:57:00 87 /min [facility] Respitory Rate 2017-07-19 12:57:00 [facility] [place] Systolic (mm Hg) 2017-07-19 05:19:00 [facility] Diastolic (mm Hg) 2017-07-19 05:19:00 [facility] [place] Temperature Oral (F) 2017-07-19 05:19:00 98.1 F [facility] Rate 2017-07-19 05:19:00 73 /min [facility] Respitory Rate 2017-07-19 05:19:00 [facility] Systolic (mm Hg) 2017-07-18 19:56:00 [facility] [place] Diastolic (mm Hg) 2017-07-18 19:56:00 [facility] Temperature Oral (F) 2017-07-18 19:56:00 99.6 F [facility] Heart Rate 2017-07-18 19:56:00 78 /min [facility] Respitory Rate 2017-07-18 19:56:00 [facility] Systolic (mm Hg) 2017-07-18 17:23:00 [facility] [place] Diastolic (mm Hg) 2017-07-18 17:23:00 [facility] [place] Temperature Oral (F) 2017-07-18 17:23:00 98.2 F [facility] Heart Rate 2017-07-18 17:23:00 88 /min [facility] Respitory Rate 2017-07-18 17:23:00 [facility] Systolic (mm Hg) 2017-07-18 06:56:00 [facility] Diastolic (mm Hg) 2017-07-18 06:56:00 [facility] Temperature Oral (F) 2017-07-18 06:56:00 98.7 F [facility] Heart Rate 2017-07-18 06:56:00 77 /min [facility] Respitory Rate 2017-07-18 06:56:00 [facility] [place] Systolic (mm Hg) 2017-07-17 19:07:00 [facility] Diastolic (mm Hg) 2017-07-17 19:07:00 [facility] Temperature Oral (F) 2017-07-17 19:07:00 98.4 F [facility] Rate 2017-07-17 19:07:00 74 /min [facility] Respitory Rate 2017-07-17 19:07:00 [facility] [place] Systolic (mm Hg) 2017-07-17 05:03:00 [facility] [place] Diastolic (mm Hg) 2017-07-17 05:03:00 [facility] [place] Temperature Oral (F) 2017-07-17 05:03:00 98.2 F [facility] Rate 2017-07-17 05:03:00 66 /min [facility] Respitory Rate 2017-07-17 05:03:00 [facility] [place] Systolic (mm Hg) 2017-07-16 19:13:00 [facility] Diastolic (mm Hg) 2017-07-16 19:13:00 [facility] Temperature Oral (F) 2017-07-16 19:13:00 98.2 F [facility] Rate 2017-07-16 19:13:00 78 /min [facility] Respitory Rate 2017-07-16 19:13:00 [facility] Systolic (mm Hg) 2017-07-16 14:01:00 [facility] Diastolic (mm Hg) 2017-07-16 14:01:00 [facility] Temperature Oral (F) 2017-07-16 14:01:00 98.7 F [facility] Heart Rate 2017-07-16 14:01:00 77 /min [facility] Respitory Rate 2017-07-16 14:01:00 [facility] Systolic (mm Hg) 2017-07-16 03:51:00 [facility] Diastolic (mm Hg) 2017-07-16 03:51:00 [facility] Temperature Oral (F) 2017-07-16 03:51:00 98 F [facility] Heart Rate 2017-07-16 03:51:00 68 /min [facility] Respitory Rate 2017-07-16 03:51:00 [facility] [place] Systolic (mm Hg) 2017-07-15 20:14:00 [facility] [place] Diastolic (mm Hg) 2017-07-15 20:14:00 [facility] [place] [facility] Temperature Oral (F) 2017-07-15 20:14:00 98.2 F [facility] Heart Rate 2017-07-15 20:14:00 85 /min [facility] Respitory Rate 2017-07-15 20:14:00 [facility] Systolic (mm Hg) 2017-07-15 10:42:00 [facility] [place] Diastolic (mm Hg) 2017-07-15 10:42:00 [facility] Temperature Oral (F) 2017-07-15 10:42:00 98.4 F [facility] Heart Rate 2017-07-15 10:42:00 72 /min [facility] Respitory Rate 2017-07-15 10:42:00 [facility] Systolic (mm Hg) 2017-07-15 04:08:00 [facility] Diastolic (mm Hg) 2017-07-15 04:08:00 [facility] Temperature Oral (F) 2017-07-15 04:08:00 98.6 F [facility] Rate 2017-07-15 04:08:00 75 /min [facility] Respitory Rate 2017-07-15 04:08:00 [facility] Systolic (mm Hg) 2017-07-14 19:32:00 [facility] [place] Diastolic (mm Hg) 2017-07-14 19:32:00 [facility] Temperature Oral (F) 2017-07-14 19:32:00 98.6 F [facility] Rate 2017-07-14 19:32:00 75 /min [facility] Respitory Rate 2017-07-14 19:32:00 [facility] [place] Systolic (mm Hg) 2017-07-14 12:46:00 [facility] Diastolic (mm Hg) 2017-07-14 12:46:00 [facility] Temperature Oral (F) 2017-07-14 12:46:00 97.8 F [facility] Rate 2017-07-14 12:46:00 64 /min [facility] Respitory Rate 2017-07-14 12:46:00 [facility] Systolic (mm Hg) 2017-07-14 04:14:00 [facility] Diastolic (mm Hg) 2017-07-14 04:14:00 [facility] [place] Temperature Oral (F) 2017-07-14 04:14:00 98.4 F [facility] Heart Rate 2017-07-14 04:14:00 81 /min [facility] [place] Respitory Rate 2017-07-14 04:14:00 [facility] Systolic (mm Hg) 2017-07-13 20:54:00 Inder [facility] [place] Diastolic (mm Hg) 2017-07-13 20:54:00 [facility] Temperature Oral (F) 2017-07-13 20:54:00 98.7 F [facility] [place] Heart Rate 2017-07-13 20:54:00 73 /min [facility] Respitory Rate 2017-07-13 20:54:00 [facility] Systolic (mm Hg) 2017-07-13 14:09:00 [facility] Diastolic (mm Hg) 2017-07-13 14:09:00 [facility] Temperature Oral (F) 2017-07-13 14:09:00 98.2 F [facility] [place] Heart Rate 2017-07-13 14:09:00 71 /min [facility] [place] Respitory Rate 2017-07-13 14:09:00 [facility] Systolic (mm Hg) 2017-07-13 04:08:00 [facility] Diastolic (mm Hg) 2017-07-13 04:08:00 [facility] Temperature Oral (F) 2017-07-13 04:08:00 97.9 F [facility] [place] Heart Rate 2017-07-13 04:08:00 79 /min [facility] Respitory Rate 2017-07-13 04:08:00 [facility] Systolic (mm Hg) 2017-07-12 19:29:00 [facility] [place] Diastolic (mm Hg) 2017-07-12 19:29:00 [facility] [place] Temperature Oral (F) 2017-07-12 19:29:00 98.9 F [facility] [place] Heart Rate 2017-07-12 19:29:00 81 /min [facility] [place] Respitory Rate 2017-07-12 19:29:00 [facility] [place] Systolic (mm Hg) 2017-07-12 14:02:00 [facility] [place] Diastolic (mm Hg) 2017-07-12 14:02:00 [facility] [place] Temperature Oral (F) 2017-07-12 14:02:00 98 F [facility] [place] Heart Rate 2017-07-12 14:02:00 60 /min [facility] [place] Respitory Rate 2017-07-12 14:02:00 [facility] [place] Systolic (mm Hg) 2017-07-12 03:57:00 [facility] [place] Diastolic (mm Hg) 2017-07-12 03:57:00 [facility] [place] Temperature Oral (F) 2017-07-12 03:57:00 98.2 F [facility] Heart Rate 2017-07-12 03:57:00 79 /min [facility] Respitory Rate 2017-07-12 03:57:00 [facility] [place] Systolic (mm Hg) 2017-07-11 19:48:00 [facility] [place] Diastolic (mm Hg) 2017-07-11 19:48:00 [facility] [place] Temperature Oral (F) 2017-07-11 19:48:00 98.9 F [facility] [place] Heart Rate 2017-07-11 19:48:00 72 /min [facility] Respitory Rate 2017-07-11 19:48:00 [facility] [place] Systolic (mm Hg) 2017-07-11 15:18:00 [facility] [place] Diastolic (mm Hg) 2017-07-11 15:18:00 [facility] [place] Temperature Oral (F) 2017-07-11 15:18:00 97.8 F [facility] Heart Rate 2017-07-11 15:18:00 76 /min [facility] [place] Respitory Rate 2017-07-11 15:18:00 [facility] [place] Systolic (mm Hg) 2017-07-10 23:55:00 [facility] [place] Diastolic (mm Hg) 2017-07-10 23:55:00 [facility] [place] Temperature Oral (F) 2017-07-10 23:55:00 98.4 F [facility] [place] Heart Rate 2017-07-10 23:55:00 83 /min [facility] Respitory Rate 2017-07-10 23:55:00 [facility] [place] Systolic (mm Hg) 2017-07-10 14:36:00 [facility] [place] Diastolic (mm Hg) 2017-07-10 14:36:00 [facility] [place] Temperature Oral (F) 2017-07-10 14:36:00 98.4 F [facility] [place] Heart Rate 2017-07-10 14:36:00 63 /min [facility] [place] Respitory Rate 2017-07-10 14:36:00 [facility] [place] Systolic (mm Hg) 2017-07-10 05:24:00 [facility] [place] Diastolic (mm Hg) 2017-07-10 05:24:00 [facility] [place] Temperature Oral (F) 2017-07-10 05:24:00 97.8 F [facility] Heart Rate 2017-07-10 05:24:00 74 /min [facility] Respitory Rate 2017-07-10 05:24:00 [facility] [place] Systolic (mm Hg) 2017-07-09 19:44:00 [facility] [place] Diastolic (mm Hg) 2017-07-09 19:44:00 [facility] [place] Temperature Oral (F) 2017-07-09 19:44:00 100.2 F [facility] [place] Heart Rate 2017-07-09 19:44:00 87 /min [facility] Respitory Rate 2017-07-09 19:44:00 [facility] [place] Systolic (mm Hg) 2017-07-09 12:32:00 [facility] [place] Diastolic (mm Hg) 2017-07-09 12:32:00 [facility] [place] Temperature Oral (F) 2017-07-09 12:32:00 98.4 F [facility] [place] Heart Rate 2017-07-09 12:32:00 73 /min [facility] [place] Respitory Rate 2017-07-09 12:32:00 [facility] [place] Systolic (mm Hg) 2017-07-09 05:54:00 [facility] [place] Diastolic (mm Hg) 2017-07-09 05:54:00 [facility] [place] Temperature Oral (F) 2017-07-09 05:54:00 98.7 F [facility] Heart Rate 2017-07-09 05:54:00 66 /min [facility] Respitory Rate 2017-07-09 05:54:00 [facility] [place] Systolic (mm Hg) 2017-07-08 19:00:00 [facility] [place] Diastolic (mm Hg) 2017-07-08 19:00:00 [facility] [place] Temperature Oral (F) 2017-07-08 19:00:00 99.1 F [facility] [place] Heart Rate 2017-07-08 19:00:00 85 /min [facility] Respitory Rate 2017-07-08 19:00:00 [facility] [place] Systolic (mm Hg) 2017-07-08 16:07:00 [facility] [place] Diastolic (mm Hg) 2017-07-08 16:07:00 [facility] [place] Temperature Oral (F) 2017-07-08 16:07:00 99.1 F [facility] [place] Heart Rate 2017-07-08 16:07:00 68 /min [facility] [place] Respitory Rate 2017-07-08 16:07:00 [facility] [place] Weight 2017-07-08 13:58:00 [facility] [place] Systolic (mm Hg) 2017-07-08 06:04:00 [facility] [place] Diastolic (mm Hg) 2017-07-08 06:04:00 [facility] [place] Temperature Oral (F) 2017-07-08 06:04:00 97.3 F [facility] Heart Rate 2017-07-08 06:04:00 77 /min [facility] [place] Respitory Rate 2017-07-08 06:04:00 [facility] [place] Systolic (mm Hg) 2017-07-07 19:42:00 [facility] [place] Diastolic (mm Hg) 2017-07-07 19:42:00 [facility] [place] Temperature Oral (F) 2017-07-07 19:42:00 99.1 F [facility] [place] Heart Rate 2017-07-07 19:42:00 85 /min [facility] Respitory Rate 2017-07-07 19:42:00 [facility] [place] Systolic (mm Hg) 2017-07-07 10:39:00 [facility] [place] Diastolic (mm Hg) 2017-07-07 10:39:00 [facility] [place] Temperature Oral (F) 2017-07-07 10:39:00 98.4 F [facility] [place] Heart Rate 2017-07-07 10:39:00 59 /min [facility] Respitory Rate 2017-07-07 10:39:00 [facility] [place] Systolic (mm Hg) 2017-07-07 01:02:00 [facility] [place] Diastolic (mm Hg) 2017-07-07 01:02:00 [facility] [place] Temperature Oral (F) 2017-07-07 01:02:00 100.7 F [facility] [place] Heart Rate 2017-07-07 01:02:00 86 /min [facility] Respitory Rate 2017-07-07 01:02:00 [facility] [place] Systolic (mm Hg) 2017-07-06 13:21:00 [facility] [place] Diastolic (mm Hg) 2017-07-06 13:21:00 [facility] [place] Temperature Oral (F) 2017-07-06 13:21:00 98.7 F [facility] [place] Heart Rate 2017-07-06 13:21:00 73 /min [facility] [place] Respitory Rate 2017-07-06 13:21:00 [facility] [place] Systolic (mm Hg) 2017-07-06 05:07:00 [facility] [place] Diastolic (mm Hg) 2017-07-06 05:07:00 [facility] [place] Temperature Oral (F) 2017-07-06 05:07:00 98.6 F [facility] [place] Heart Rate 2017-07-06 05:07:00 79 /min [facility] Respitory Rate 2017-07-06 05:07:00 [facility] [place] Systolic (mm Hg) 2017-07-05 18:49:00 [facility] [place] Diastolic (mm Hg) 2017-07-05 18:49:00 [facility] [place] Temperature Oral (F) 2017-07-05 18:49:00 98.4 F [facility] Heart Rate 2017-07-05 18:49:00 78 /min [facility] [place] Respitory Rate 2017-07-05 18:49:00 [facility] [place] Systolic (mm Hg) 2017-07-05 16:26:00 [facility] [place] Diastolic (mm Hg) 2017-07-05 16:26:00 [facility] [place] Temperature Oral (F) 2017-07-05 16:26:00 98.6 F [facility] Heart Rate 2017-07-05 16:26:00 69 /min [facility] [place] Respitory Rate 2017-07-05 16:26:00 [facility] [place] Systolic (mm Hg) 2017-07-05 06:18:00 [facility] [place] Diastolic (mm Hg) 2017-07-05 06:18:00 [facility] [place] Temperature Oral (F) 2017-07-05 06:18:00 98.4 F [facility] [place] Heart Rate 2017-07-05 06:18:00 72 /min [facility] [place] Respitory Rate 2017-07-05 06:18:00 [facility] [place] Systolic (mm Hg) 2017-07-04 19:40:00 [facility] [place] Diastolic (mm Hg) 2017-07-04 19:40:00 [facility] [place] Temperature Oral (F) 2017-07-04 19:40:00 98.4 F [facility] Heart Rate 2017-07-04 19:40:00 78 /min [facility] Respitory Rate 2017-07-04 19:40:00 [facility] [place] Systolic (mm Hg) 2017-07-04 17:31:00 [facility] [place] Diastolic (mm Hg) 2017-07-04 17:31:00 [facility] [place] Temperature Oral (F) 2017-07-04 17:31:00 98 F [facility] [place] Heart Rate 2017-07-04 17:31:00 71 /min [facility] [place] Respitory Rate 2017-07-04 17:31:00 [facility] [place] Systolic (mm Hg) 2017-07-04 13:01:54 [facility] [place] Diastolic (mm Hg) 2017-07-04 13:01:54 [facility] [place] Heart Rate 2017-07-04 13:01:54 71 /min [facility] [place] Systolic (mm Hg) 2017-07-04 05:14:00 [facility] [place] Diastolic (mm Hg) 2017-07-04 05:14:00 [facility] [place] Temperature Oral (F) 2017-07-04 05:14:00 98 F [facility] [place] Heart Rate 2017-07-04 05:14:00 86 /min [facility] [place] Respitory Rate 2017-07-04 05:14:00 [facility] [place] Systolic (mm Hg) 2017-07-04 00:52:00 [facility] [place] Diastolic (mm Hg) 2017-07-04 00:52:00 [facility] [place] Systolic (mm Hg) 2017-07-03 23:48:00 [facility] [place] Diastolic (mm Hg) 2017-07-03 23:48:00 [facility] [place] Temperature Oral (F) 2017-07-03 23:48:00 98.6 F [facility] [place] Heart Rate 2017-07-03 23:48:00 83 /min [facility] [place] Respitory Rate 2017-07-03 23:48:00 [facility] [place] Temperature Oral (F) 2017-07-03 20:46:00 98.6 F [facility] [place] Heart Rate 2017-07-03 20:46:00 83 /min [facility] [place] Respitory Rate 2017-07-03 20:46:00 [facility] [place] Height 2017-07-03 20:25:00 [facility] [place] Weight 2016-01-03 18:30:00 [facility] Height 2016-01-03 18:30:00 [facility] [place] Diastolic (mm Hg) 2016-01-03 18:30:00 [facility] [place] Systolic (mm Hg) 2016-01-03 18:30:00 [facility] [place] Weight 2015-10-04 19:00:00 [facility] [place] Height 2015-10-04 19:00:00 [facility] [place] Diastolic (mm Hg) 2015-10-04 19:00:00 [facility] [place] Systolic (mm Hg) 2015-10-04 19:00:00 [facility] [place] Weight 2015-07-07 19:15:00 [facility] Height 2015-07-07 19:15:00 [facility] Weight 2015-06-07 19:00:00 [facility] Height 2015-06-07 19:00:00 [facility] [place] Diastolic (mm Hg) 2015-06-07 19:00:00 [facility] [place] Systolic (mm Hg) 2015-06-07 19:00:00 [facility] [place] Weight 2015-03-08 15:00:00 [facility] [place] Height 2015-03-08 15:00:00 [facility] [place] Diastolic (mm Hg) 2015-03-08 15:00:00 [facility] [place] Systolic (mm Hg) 2015-03-08 15:00:00 [facility] [place] Weight 2015-01-04 22:30:00 [facility] [place] Height 2015-01-04 22:30:00 [facility] [place] Diastolic (mm Hg) 2015-01-04 22:30:00 [facility] [place] Systolic (mm Hg) 2015-01-04 22:30:00 [facility] [place] Weight 2014-12-24 21:30:00 [facility] [place] Height 2014-12-24 21:30:00 [facility] Diastolic (mm Hg) 2014-12-24 21:30:00 [facility] [place] Systolic (mm Hg) 2014-12-24 21:30:00 [facility] [place] Weight 2014-11-05 14:30:00 [facility] Height 2014-11-05 14:30:00 [facility] [place] Diastolic (mm Hg) 2014-11-05 14:30:00 [facility] [place] Systolic (mm Hg) 2014-11-05 14:30:00 [facility] [place] Weight 2014-11-05 13:30:00 [facility] Height 2014-11-05 13:30:00 [facility] Diastolic (mm Hg) 2014-11-05 13:30:00 [facility] [place] Systolic (mm Hg) 2014-11-05 13:30:00 [facility] [place] Weight 2014-03-23 16:15:00 [facility] [place] Height 2014-03-23 16:15:00 [facility] [place] Diastolic (mm Hg) 2014-03-23 16:15:00 [facility] [place] Systolic (mm Hg) 2014-03-23 16:15:00 [facility] [place] Weight 2014-02-04 19:30:00 [facility] [place] Height 2014-02-04 19:30:00 [facility] [place] Diastolic (mm Hg) 2014-02-04 19:30:00 [facility] [place] Systolic (mm Hg) 2014-02-04 19:30:00 [facility] [place] Weight 2013-12-04 14:15:00 [facility] Height 2013-12-04 14:15:00 [facility] [place] Diastolic (mm Hg) 2013-12-04 14:15:00 [facility] [place] Systolic (mm Hg) 2013-12-04 14:15:00 [facility] Procedures Procedure Date / Time Performed Performing Clinician [facility] e mammogram 2007-04-03 20:53:01 [facility] 2005-02-13 19:44:42 [facility] Plan of Care Planned Activity Planned Date Details Comments Source Future Scheduled Test 2019-12-09 00:00:00 INFLUENZA VACCINE (#1) [code = INFLUENZA VACCINE (#1)] Future Scheduled Test 2015-06-09 00:00:00 MEDICARE ANNUAL WELLNESS (YEAR 2 or FIRST YEAR if no IPPE) [code = MEDICARE ANNUAL WELLNESS (YEAR 2 or FIRST YEAR if no IPPE)] Future Scheduled Test 1949 00:00:00 Screening for malignant neoplasm of breast (procedure) [code = 016278894] Future Scheduled Test 1949 00:00:00 Screening for malignant neoplasm of colon (procedure) [code = 517579599] Encounters Start End Encounter Admission Attending Care Care Encounter Source Date/Time Date/Time Type Type Clinicians Facility Department ID 2020-08-14 Outpatient [facility] [id number] NPI:[id number] 03:01:03 KATE [id number] 2018-09-24 2018-09-22 Inpatient [facility] [id number] 16:43:00 13:56:00 2016-05-17 2016-05-17 Rx Sonya Fraser, [id number] 51-d [facility] 17:37:00 17:37:00 clarificat r Gaurav GRANT 583-4e7d-9 l ion [id number] [facility] nn 0dfa6f 2016-05-03 2016-05-03 refill nullFlavo Bria, 6hx044 91-1 [facility] 15:31:00 15:31:00 request r Gaurav GRANT 90c-4d9b-b l 6ba-222cad [facility] nn 9adf4c 2016-05-03 2016-05-03 refill nullNicko Bria, c53aff 5b-1 [facility] 15:31:00 15:31:00 request r Gaurav GRANT s26-3291-1 l 19e-828b33 [facility] nn 41dce9 2016-03-20 2016-03-20 refill nullFlavo Bria, yj983s e9-0 [facility] 18:57:00 18:57:00 request..k r Gaurav GRANT 7o4-3q75-y l z [id number] [facility] nn [id number] 1624-12-12 2016-03-20 refill nullNicko Bria, 94j365 ea-e [facility] 18:57:00 18:57:00 request..k r Gaurav GRANT t66-1847-0 l z [id number] [facility] nn 653fd6 2016-03-20 2016-03-20 refill nullFlavo Bria, 57e8d9 57-3 [facility] 18:57:00 18:57:00 request..k patti Nolasco MD v90-7636-3 l z ee9-6a7c82 [place] nn [id number] 3682-12-01 2016-03-09 REFILL nullFlavo Bria, 4688b4 c6-2 [facility] 20:08:00 20:08:00 REQUEST r Gaurav GRANT 905-4225-b l [id number] [facility] nn a5a2e9 2016-03-09 2016-03-09 REFILL nullFlavo Bria, fdcef4 53-b [facility] 20:08:00 20:08:00 REQUEST patti Nolasco MD 22b-46b8-a l 5d8-hp97z4 [facility] nn e6z176 2016-03-09 2016-03-09 REFILL nullFlavo Bria, 7ac9bc f9-8 [facility] 20:08:00 20:08:00 REQUEST patti Nolasco MD 23e-4586-8 l ecc-713cf6 [facility] nn 3eb5de 2016-03-09 2016-03-09 REFILL nullFlavo Bria, c8fd11 e2-0 [facility] 20:08:00 20:08:00 REQUEST patti Nolasco MD 725-4a2c-9 l baf-om604k [facility] nn a15e6b 2016-01-03 2016-01-03 3 Months nullFlavo Bria, 7534e 763-7 [facility] 19:30:00 19:30:00 (Reason: patti Nolasco MD 17a-4c29-a l Thyroid , ff8-90704f Her mcguire Cholestero 9f687a l ) 2016-01-03 2016-01-03 3 Months nullFlavo Bria, aa97c df8-f [facility] 19:30:00 19:30:00 (Reason: patti Nolasco MD fa1-4387-b l Thyroid , 11d-aa62c3 Her mcguire Cholestero 34ac8d l ) 2016-01-03 2016-01-03 3 Months nullFlavo Bria, 3613e 86e-0 [facility] 19:30:00 19:30:00 (Reason: patti Nolasco MD p8q-7i8m-j l Thyroid , f22-07rf9b Her mcguire Cholestero e5a0db l ) 2016-01-03 2016-01-03 3 Months nullFlavo Bria, 4449e 47e-a [facility] 19:30:00 19:30:00 (Reason: patti Nolasco MD 2q3-5534-v l Thyroid , cc5-960a28 Her mcguire Cholestero 4086da l ) 2016-01-03 2016-01-03 3 Months nullFlavo Bria, 6a203 fa8-8 [facility] 18:30:00 18:30:00 (Reason: patti Nolasco MD 2ff-40df-9 l Thyroid , m61-l1511r Her mcgurie Cholestero d76e66 l ) 2015-10-04 2015-10-04 3 Months nullFlavo Bria, e1015 332-3 [facility] 20:00:00 20:00:00 (Reason: patti Nolasco MD ea7-42b6-9 l HTn , ea6-j09765 [facility] nn Thyroid 16c46e and cholestero l ) 2015-10-04 2015-10-04 3 Months nullFlavo Bria, df55e 51f-a [facility] 20:00:00 20:00:00 (Reason: patti Nolasco MD ec7-469b-b l HTn , x35-78mog6 [facility] nn Thyroid [id number] and cholestero l ) 2015-10-04 2015-10-04 3 Months nullFlavo Bria, 6d134 17b-4 [facility] 20:00:00 20:00:00 (Reason: patti Nolasco MD 17a-498d-9 l HTn , 579-fddf90 [facility] nn Thyroid 363720 and cholestero l ) 2015-10-04 2015-10-04 3 Months nullFlavo Bria, 8051e 85e-c [facility] 20:00:00 20:00:00 (Reason: patti Nolasco MD 321-4623-b l HTn , ce9-d8fb83 [facility] nn Thyroid 3fffe9 and cholestero l ) 2015-10-04 2015-10-04 3 Months nullFlavo Bria, 8487a 7f8-f [facility] 19:00:00 19:00:00 (Reason: patti Nolasco MD 08f-4508-a l HTn , 4j7-688t4n [place] nn Thyroid fn9279 and cholestero l ) 2015-10-04 2015-10-04 3 Months nullFlavo Bria, 0f9d9 737-0 [facility] 19:00:00 19:00:00 (Reason: patti Nolasco MD 15b-4e5b-a l HTn , 5e2-k8keh6 [facility] nn Thyroid e6fbd7 and cholestero l ) 2015-07-07 2015-07-07 4 Weeks nullFlavo Brai, 098483 b9-9 [facility] 20:15:00 20:15:00 (Reason: patti Nolasco MD 72e-43c7-a l Blood ec6-352545 Linda nn pressure ) 308fe3 2015-07-07 2015-07-07 4 Weeks nullFlavo Bria, 9cd3e3 bf-1 [facility] 20:15:00 20:15:00 (Reason: patti Nolasco MD 7fe-4df3-a l Blood 6u0-9215e6 Linda nn pressure ) 4g9984 2015-07-07 2015-07-07 4 Weeks nullFlavo Bria, 14h703 24-8 [facility] 20:15:00 20:15:00 (Reason: patti Nolasco MD 0bf-4152-8 l Blood 750-193388 Linda nn pressure ) 76b0b4 2015-07-07 2015-07-07 4 Weeks nullFlavo Bria, 7b4f79 0f-e [facility] 20:15:00 20:15:00 (Reason: patti Nolasco MD y60-01ws-m l Blood 0ef-5640ff Linda nn pressure ) c708fa 2015-07-07 2015-07-07 4 Weeks nullFlavo Bria, 36n008 55-2 [facility] 19:15:00 19:15:00 (Reason: patti Nolasco MD 5cb-4adc-8 l Blood bab-s16979 Linda nn pressure ) ca8fd7 2015-07-07 2015-07-07 4 Weeks nullFlavo Bria, 9b9e1e a8-b [facility] 19:15:00 19:15:00 (Reason: patti Nolasco MD db5-426c-8 l Blood 772-5fc6dd Linda nn pressure ) 4cc51f 2015-07-07 2015-07-07 4 Weeks nullFlavo Bria, 96b6b9 a9-5 [facility] 19:15:00 19:15:00 (Reason: patti Nolasco MD 69a-4ec5-9 l Blood 08f-9e64e2 Linda nn pressure ) 6be5de 2015-06-07 2015-06-07 3m x nullFlavo Bria, 2i3142 bb-7 [facility] 20:00:00 20:00:00 thyroid patti Nolasco MD 3h0-61av-7 l o86-2lb4l5 [facility] nn 05b8dd 2015-06-07 2015-06-07 3m x nullFlavo Bria, kbv458 8b-5 [facility] 20:00:00 20:00:00 thyroid r Gaurav GRANT 9s0-27yc-5 l 4u0-5ozp80 [facility] nn c6a63d 2015-06-07 2015-06-07 3m x nullFlavo Bria, 7c97be 85-8 [facility] 20:00:00 20:00:00 thyroid patti Nolasco MD 6cf-4b9f-b l bfd-5545d2 [facility] nn 8cf8c1 2015-06-07 2015-06-07 3m x nullFlavo Bria, fh4907 1c-3 [facility] 20:00:00 20:00:00 thyroid patti Nolasco MD 4ab-40d3-8 l s6x-k73147 [facility] nn cf7e1f 2015-06-07 2015-06-07 3m x nullFlavo Bria, 1215ed 22-f [facility] 19:00:00 19:00:00 thyroid patti Nolasco MD 81c-48e9-a l 021-6v875z [facility] nn bd4c6c 2015-06-07 2015-06-07 3m x nullFlavo Bria, b27ca9 b9-e [facility] 19:00:00 19:00:00 thyroid r Gaurav GRANT 04a-4689-8 l 5ff-a93b4b [facility] nn 36bb32 2015-06-07 2015-06-07 3m x nullFlavo Bria, 5021b4 89-c [facility] 19:00:00 19:00:00 thyroid patti Nolasco MD 940-489d-8 l ae8-7e563l [facility] nn 84cf8c 2015-06-07 2015-06-07 3m x nullFlavo Bria, a64a79 ef-6 [facility] 19:00:00 19:00:00 thyroid patti Nolasco MD dc9-4127-a l a57-78787s [facility] nn 72t679 2015-03-08 2015-03-08 4 Months nullFlavo Bria, 36122 1d3-6 [facility] 15:00:00 15:00:00 (Reason: patti Nolasco MD 312-46ee-8 l Thyroid 088-54b0eb Linda nn and 4214fc hyperlipid emia ) 2015-03-08 2015-03-08 4 Months nullFlavo Bria, 6ce1f 091-a [facility] 15:00:00 15:00:00 (Reason: patti Nolasco MD i5i-1n3y-4 l Thyroid d29-s37c58 Linda nn and 545f6c hyperlipid emia ) 2015-03-08 2015-03-08 4 Months nullFlavreji Fraser, 11b79 b1d-5 [facility] 15:00:00 15:00:00 (Reason: patti Nolasco MD x57-2978-d l Thyroid 9z4-33v937 Linda nn and b18dc8 hyperlipid emia ) 2015-03-08 2015-03-08 4 Months nullFlavreji Fraser, 8e830 7f9-8 [facility] 15:00:00 15:00:00 (Reason: patti Nolasco MD af3-42c0-9 l Thyroid 20e-2db7b4 Linda nn and da5ea9 hyperlipid emia ) 2015-03-08 2015-03-08 4 Months nullFlavreji Fraser, 27655 441-6 [facility] 15:00:00 15:00:00 (Reason: patti Nolasco MD 44d-4e7e-8 l Thyroid g55-d3c09d Linda nn and 5a4c54 hyperlipid emia ) 2015-03-08 2015-03-08 4 Months nullFlavreji Fraser, e7e24 3e3-5 [facility] 14:00:00 14:00:00 (Reason: patti Nolasco MD j7h-3rm5-3 l Thyroid 9o8-8nz37s Linda nn and 5lm134 hyperlipid emia ) 2015-03-08 2015-03-08 4 Months nullFlavo Bria, 1349c 4b3-4 [facility] 14:00:00 14:00:00 (Reason: patti Nolasco MD 81e-42a8-a l Thyroid 08e-bd53ce Linda nn and f3b46c hyperlipid emia ) 2015-03-08 2015-03-08 4 Months nullFlavo Bria, 5e859 856-a [facility] 14:00:00 14:00:00 (Reason: patti Nolasco MD 990-4176-9 l Thyroid 79d-3327fc Linda nn and 17bcb3 hyperlipid emia ) 2015-03-08 2015-03-08 4 Months nullFlavo Bria, c6b99 a01-9 [facility] 14:00:00 14:00:00 (Reason: r Gaurav GRANT p8j-6y00-v l Thyroid 1w7-tcfr64 Linda nn and a02bba hyperlipid emia ) 2015-02-23 2015-02-23 Unknown nullFlavo Bria, 164d94 ba-5 [facility] 15:30:00 15:30:00 r Gaurav GRANT 409-4151-b l 9c3-6963jq Linda nn 8bdf0f 2015-02-23 2015-02-23 Unknown nullFlavo Bria, 94ff27 3b-7 [facility] 15:30:00 15:30:00 r Gaurav GRANT 4g2-5632-5 l 4w4-z10nir Linda nn 6e10f7 2015-02-23 2015-02-23 Unknown nullFlavo Bria, 5fa15e b7-f [facility] 15:30:00 15:30:00 r Gaurav GRANT 030-47e4-a l 563-4bcd82 Linda nn a0ba4c 2015-02-23 2015-02-23 Unknown nullFlavo Bria, 65209t b0-3 [facility] 15:30:00 15:30:00 r Gaurav GRANT q4y-5j6t-6 l 46e-08eefa Linda nn a0afed 2015-02-23 2015-02-23 Unknown nullFlavo Bria, 7ff0e3 49-7 [facility] 15:30:00 15:30:00 r Gaurav GRANT 012-4353-a l 299-0beab9 Linda nn 4f8f58 2015-02-23 2015-02-23 Unknown nullFlavo Bria, zzu541 72-6 [facility] 15:30:00 15:30:00 r Gaurav GRANT bf7-4829-b l 964-ebe01f Linda nn av2222 2015-02-23 2015-02-23 Unknown nullFlavo Bria, 612542 e2-a [facility] 15:30:00 15:30:00 r Gaurav GRANT erin-4ad7-9 l k4b-5768b5 Linda nn 633fea 2015-02-23 2015-02-23 Unknown nullFlavo Bria, 9839bc df-e [facility] 15:30:00 15:30:00 r Gaurav GRANT j5x-0j35-w l cca-cdaab9 Linda nn e79ab5 2015-02-23 2015-02-23 Unknown nullFlavo Bria, 91-3 [facility] 15:30:00 15:30:00 r Gaurav GRANT b38-75q4-g l 607-f397f8 Linda nn d7c7f3 2015-02-23 2015-02-23 Unknown nullFlavo Bria, 521ce0 47-5 [facility] 14:30:00 14:30:00 r Gaurav GRANT z85-75ll-7 l 3cb-19d5e3 Linda nn t28628 2015-02-23 2015-02-23 Unknown nullFlavo Bria, ol2116 34-d [facility] 14:30:00 14:30:00 r Gaurav GRANT 807-495b-8 l 15d-4e29e0 Linda nn [id number] 2015-02-23 2015-02-23 Unknown nullFlavo Bria, u0a541 34-b [facility] 14:30:00 14:30:00 r Gaurav GRANT 78f-4e55-9 l 200-cf4d92 Linda nn [id number] 2015-02-23 2015-02-23 Unknown nullFlavo Bria, 92b3c6 cf-0 [facility] 14:30:00 14:30:00 r Gaurav GRANT 03f-49a6-8 l [id number] Linda nn [id number] 2015-02-11 2015-02-11 Unknown nullFlavo Bria, 92171r db-3 [facility] 00:31:00 00:31:00 r Gaurav GRANT 807-427a-b l b68-5wx5v5 Linda nn f2ad18 2015-02-11 2015-02-11 Unknown nullFlavo Bria, c5dedb a0-0 [facility] 00:31:00 00:31:00 r Gaurav GRANT 567-4215-9 l 540-8cf7b8 Linda nn d51ff2 2015-02-11 2015-02-11 Unknown nullFlavo Bria, [id number] fa-9 [facility] 00:31:00 00:31:00 r Gaurav GRANT 120-4739-b l 129-0079af Linda nn 95fc4f 2015-02-11 2015-02-11 Unknown nullFlavo Bria, 06ea93 42-1 [facility] 00:31:00 00:31:00 r Gaurav GRANT 6t2-70r6-y l 88c-rc4214 Linda nn 0f853r 2015-02-11 2015-02-11 Unknown nullFlavo Bria, 8f5f7c 38-1 [facility] 00:31:00 00:31:00 r Gaurav GRANT 356-4309-9 l bde-50fa6a Linda nn 3ac40f 2015-02-11 2015-02-11 Unknown nullFlavo Bria, 5eff1c c7-d [facility] 00:31:00 00:31:00 r Gaurav GRANT ce9-4034-9 l 337-8ad26c Linda nn [id number] 2015-02-11 2015-02-11 Unknown nullFlavo Bria, 067a29 d0-8 [facility] 00:31:00 00:31:00 r Gaurav GRANT fe2-4cc6-a l 7df-49e35f Linda nn b2e5af 2015-02-11 2015-02-11 Unknown vicFlavo Bria, 4a8adc a4-8 [facility] 00:31:00 00:31:00 r Gaurav GRANT 338-4ec9-a l [id number] Linda nn 2fcad7 2015-02-11 2015-02-11 Unknown nullFlavo Bria, f68418 61-3 [facility] 00:31:00 00:31:00 r Gaurav GRANT ff0-4b55-8 l [id number] Linda nn 6b82eb 2015-02-11 2015-02-11 Unknown nullFlavo Bria, 369bed b7-9 [facility] 00:31:00 00:31:00 r Gaurav GRANT trenton-4194-9 l ec4-852ceb Linda nn m3142a 2015-02-11 2015-02-11 Unknown nullFlavo Bria, 315f29 2a-0 [facility] 00:31:00 00:31:00 r Gaurav GRANT cf9-4538-a l 79d-f5e2d1 Linda nn 5f9bb2 2015-02-11 2015-02-11 Unknown nullFlavo Bria, f574d9 b8-1 [facility] 00:31:00 00:31:00 r Gaurav GRANT 129-4d70-b l [id number]-v6289k Linda nn [id number] 2015-02-11 2015-02-11 Unknown nullFlavo Bria, cb5db9 f8-3 [facility] 00:31:00 00:31:00 r Gaurav GRANT p1j-8eob-3 l 85b-6ecc81 Linda nn 377ea3 2015-02-10 2015-02-10 Unknown nullFlavo Bria, 93175z bc-0 [facility] 23:31:00 23:31:00 r Gaurav GRANT 094-45f1-b l eae-q1h378 Linda nn 55a4c7 2015-02-10 2015-02-10 Unknown nullFlavo Bria, e0b4ae 48-d [facility] 23:31:00 23:31:00 r Gaurav GRANT 832-4fe1-9 l 737-7c81c2 Linda nn s6857g 2015-02-10 2015-02-10 Unknown nullFlavo Bria, 17dd62 30-d [facility] 23:31:00 23:31:00 r Gaurav GRANT 029-48b9-8 l 028-h7u214 Linda nn 1c5acb 2015-02-10 2015-02-10 Unknown nullFlavo Bria, 0562b1 c8-e [facility] 23:31:00 23:31:00 r Gaurav GRANT 40b-4ec5-a l 70b-9a7b6f Linda nn [id number] 4237-11-02 2015-02-08 LAB ORDER nullFlavo Bria, 687 l90ll-6 [facility] 22:08:00 22:08:00 r Gaurav GRANT 570-4722-9 l 92e-f7af1f Linda nn 6u680x 2015-02-08 2015-02-08 LAB ORDER nullFlavo Bria, c86 645j2-k [facility] 22:08:00 22:08:00 r Gaurav GRANT acc-4ef9-8 l [id number] Linda nn a07f05 2015-02-08 2015-02-08 LAB ORDER nullFlavo Bria, b46 k6mo8-2 [facility] 22:08:00 22:08:00 r Gaurav GRANT h61-6129-r l a6w-1k187m Linda nn 9adb24 2015-02-08 2015-02-08 LAB ORDER Sonya Fraser, 1db 123ed-3 [facility] 22:08:00 22:08:00 r Gaurav GRANT 7i9-09v2-8 l 243-61n316 [facility] nn 1c06e1 2015-02-08 2015-02-08 LAB ORDER Sonya Fraser, ee4 78edc-f [facility] 22:08:00 22:08:00 r Gaurav GRANT w28-2389-6 l 163-e3c99e [facility] nn a2c707 2015-02-08 2015-02-08 LAB ORDER Sonya Fraser, 37c 3c328-k [facility] 22:08:00 22:08:00 r Gaurav GRANT y5p-5143-t l 4h0-4j2892 [facility] nn 0eb1be 2015-02-08 2015-02-08 LAB ORDER Sonya Fraser, 4ab m16xu-r [facility] 22:08:00 22:08:00 r Gaurav GRANT ae7-492e-b l y36-x3h6j1 [facility] nn aa65be 2015-02-08 2015-02-08 LAB ORDER Sonya Fraser, 55a aca14-2 [facility] 22:08:00 22:08:00 r Gaurav GRANT 5o1-8t1t-b l 388-472983 [facility] nn d0f3c3 2015-02-08 2015-02-08 LAB ORDER Sonya Fraser, e4a d04g4-y [facility] 22:08:00 22:08:00 r Gaurav GRANT z05-87f4-k l 6b1-1b87ft [facility] nn 865c08 2015-02-08 2015-02-08 LAB ORDER oSnya Fraser, f94 68052-8 [facility] 22:08:00 22:08:00 r Gaurav GRANT fc2-4369-b l cca-51388j [facility] nn h9k503 2015-02-08 2015-02-08 LAB ORDER Sonya Fraser, 645 9fae8-5 [facility] 22:08:00 22:08:00 r Gaurav GRANT 267-44a7-a l 606-i7494o [facility] nn m6z777 2015-02-08 2015-02-08 LAB ORDER Sonya Fraser, c92 t001t-8 [facility] 22:08:00 22:08:00 r Gaurav GRANT 701-4e4d-9 l 615-0sp243 [facility] nn 0wd057 2015-02-08 2015-02-08 LAB ORDER Shadeo Bria, 06b 31e67-7 [facility] 22:08:00 22:08:00 r Gaurav GRANT 235-4f59-8 l 8g2-84k571 [facility] nn 69a5b7 2015-02-08 2015-02-08 LAB ORDER Sonya Fraser, ff7 02acb-4 [facility] 22:08:00 22:08:00 r Gaurav GRANT 5cc-4428-a l p0m-r45n17 [facility] nn 846af4 2015-02-08 2015-02-08 LAB ORDER Sonya Fraser, 90a 4754c-d [facility] 21:08:00 21:08:00 r Gaurav GRANT fea-435f-a l ffb-9f3b23 [facility] nn 4cd7d4 2015-02-08 2015-02-08 LAB ORDER Sonya Fraser, 2fb v246a-5 [facility] 21:08:00 21:08:00 r Gaurav GRANT fec-42ec-a l 456-a931cd [facility] nn 2a32ba 2015-02-08 2015-02-08 LAB ORDER Sonya Fraser, f4e 9tx93-9 [facility] 21:08:00 21:08:00 r Gaurav GRANT 05f-49ec-8 l 8n1-3d4722 Linda nn 036334 4956-11-02 2015-02-08 LAB ORDER Sonya Fraser, 5b8 adfb7-e [facility] 21:08:00 21:08:00 r Gaurav GRANT 323-4c09-9 l 0x6-92bu10 [facility] nn b2812z 2015-02-05 2015-02-05 Unknown Sonya Fraser, 4498e5 16-c [facility] 21:25:00 21:25:00 r Gaurav GRANT 716-4445-a l 214-559db7 [facility] nn 0c33c4 2015-02-05 2015-02-05 Unknown nullFlavo Bria, 514f25 47-a [facility] 21:25:00 21:25:00 r Gaurav GRANT 492-4ddc-8 l 3q4-n6e47n [facility] nn 680ba2 2015-02-05 2015-02-05 Unknown nullFlavo Bria, 6918b5 03-2 [facility] 21:25:00 21:25:00 r Gaurav GRANT l43-5f38-i l 123-2bbdbc [facility] nn cc47c3 2015-02-05 2015-02-05 Unknown nullFlavo Bria, 2h2698 e0-d [facility] 21:25:00 21:25:00 r Gaurav GRANT 4ea-4ecb-8 l eff-a2bdfa [facility] nn 021ea2 2015-02-05 2015-02-05 Unknown nullFlavo Bria, 7b59d7 bb-9 [facility] 21:25:00 21:25:00 r Gaurav GRANT 304-48ee-9 l bf0-377206 [facility] nn hk6594 2015-02-05 2015-02-05 Unknown nullFlavo Bria, 1d97e7 e9-8 [facility] 21:25:00 21:25:00 r Gaurav GRANT w2w-4u5t-w l 3i5-s28344 [facility] nn 95feb8 2015-02-05 2015-02-05 Unknown nullFlavo Bria, 5271c5 0f-e [facility] 21:25:00 21:25:00 r Gaurav GRANT 360-4476-a l 1bc-c184fb [facility] nn 613102 9554-10-30 2015-02-05 Unknown nullFlavo Bria, 451ee3 8f-3 [facility] 21:25:00 21:25:00 r Gaurav GRANT 49a-4a70-a l 3g0-1p5q59 [facility] nn 1701b5 2015-02-05 2015-02-05 Unknown nullFlavo Bria, b7760f b3-5 [facility] 21:25:00 21:25:00 r Gaurav GRANT db7-49a6-8 l fe4-71a598 [facility] nn 050441 1386-10-30 2015-02-05 Unknown nullFlavo Bria, 52492n 19-6 [facility] 21:25:00 21:25:00 r Gaurav GRANT c0s-9s70-9 l 4f6-d7e9v5 [facility] nn 9f577l 2015-02-05 2015-02-05 Unknown nullFlavo Bria, e26016 37-9 [facility] 21:25:00 21:25:00 r Gaurav GRANT 9df-48f6-a l 601-5f27b5 [facility] nn 1c85d3 2015-02-05 2015-02-05 Unknown nullFlavo Bria, 84f2f7 08-3 [facility] 21:25:00 21:25:00 r Gaurav GRANT 7p0-8809-5 l 652-4g198o [facility] nn 38dfa8 2015-02-05 2015-02-05 Unknown nullFlavo Bria, e430b7 0b-d [facility] 21:25:00 21:25:00 r Gaurav GRANT ffc-425f-a l db7-88baa9 [facility] nn a63f25 2015-02-05 2015-02-05 Unknown nullFlavo Bria, eeb4a4 69-2 [facility] 21:25:00 21:25:00 r Gaurav GRANT b52-1cb5-v l 5bf-c41db0 [facility] nn dc9097 2015-02-05 2015-02-05 Unknown nullFlavo Bria, 0529a2 47-2 [facility] 20:25:00 20:25:00 r Gaurav GRANT 8d3-6194-3 l 2d3-z05709 [facility] nn 2c5dfe 2015-02-05 2015-02-05 Unknown nullFlavo Bria, 6di615 c4-c [facility] 20:25:00 20:25:00 r Gaurav GRANT aec-40ea-8 l 4n6-097rp3 [facility] nn da64f3 2015-02-05 2015-02-05 Unknown nullFlavo Bria, pi4984 2a-a [facility] 20:25:00 20:25:00 r Gaurav GRANT w94-19q6-4 l 2fd-a086cd [facility] nn 57ab13 2015-02-05 2015-02-05 Unknown nullFlavo Bria, 4g427y 82-5 [facility] 20:25:00 20:25:00 r Gaurav GRANT m0b-85hh-0 l dd4-2ef3cd [facility] nn bfbca7 2015-02-04 2015-02-04 lab order/ nullFlavo Bria, 7e3 1s634-6 [facility] 20:23:00 20:23:00 x-ray r Gaurav GRANT 032-475b-9 l 6ce-llm559 [facility] nn 41957i 2015-02-04 2015-02-04 lab order/ nullFlavo Bria, 582 m1345-8 [facility] 20:23:00 20:23:00 x-ray r Gaurav GRANT 4b4-43v0-f l fe9-7e21d7 [facility] nn 4acf3f 2015-02-04 2015-02-04 lab order/ nullFlavo Bria, 6b9 0116d-d [facility] 20:23:00 20:23:00 x-ray r Gaurav GRANT 3bb-4d9a-a l 2bb-ff2b3f [facility] nn c1321s 2015-02-04 2015-02-04 lab order/ nullFlavo Bria, 8b6 8f615-j [facility] 20:23:00 20:23:00 x-ray r Gaurav GRANT 27d-4a6f-a l ae4-5ne649 [facility] nn r95121 2015-02-04 2015-02-04 lab order/ nullFlavo Bria, b8b 6u71a-4 [facility] 20:23:00 20:23:00 x-ray r Gaurav GRANT fe6-4444-a l 678-699e08 [facility] nn 6f35a0 2015-02-04 2015-02-04 lab order/ nullFlavo Bria, ccd 1962c-6 [facility] 20:23:00 20:23:00 x-ray r Gaurav GRANT 0z3-124g-g l f65-q26pn9 [facility] nn e147de 2015-02-04 2015-02-04 lab order/ nullFlavo Bria, 8a5 99q41-9 [facility] 20:23:00 20:23:00 x-ray r Gaurav GRANT k3y-3wl7-7 l 0f0-95u59v [facility] nn d994e5 2015-02-04 2015-02-04 lab order/ nullFlavo Bria, cec 19qw2-r [facility] 20:23:00 20:23:00 x-ray r Gaurav GRANT q28-1199-1 l s98-56j362 [facility] nn e873a3 2015-02-04 2015-02-04 lab order/ nullFlavo Bria, 1d1 ao55a-d [facility] 20:23:00 20:23:00 x-ray r Gaurav GRANT 298-4f0c-a l h7s-f21qp3 [facility] nn 86q886 2015-02-04 2015-02-04 lab order/ nullFlavo Bria, c7b o48yr-5 [facility] 20:23:00 20:23:00 x-ray r Gaurav GRANT j8c-9q01-5 l 25c-0038af [facility] nn f2b3aa 2015-02-04 2015-02-04 lab order/ nullFlavo Bria, 4f7 g2g26-9 [facility] 20:23:00 20:23:00 x-ray r Gaurav GRANT 4n4-94va-3 l c2k-v2g1a9 [facility] nn 9e4e7b 2015-02-04 2015-02-04 lab order/ nullFlavo Bria, cd5 5865a-a [facility] 20:23:00 20:23:00 x-ray r Gaurav GRANT 3cb-4592-b l 0v9-l50xg8 [facility] nn f1b6ad 2015-02-04 2015-02-04 lab order/ nullFlavo Bria, 50c 75404-8 [facility] 20:23:00 20:23:00 x-ray r Gaurav GRANT 842-4673-a l v3g-p51878 [facility] nn 608ee9 2015-02-04 2015-02-04 lab order/ nullFlavo Bria, 65e acbcf-8 [facility] 20:23:00 20:23:00 x-ray r Gaurav GRANT 130-4219-a l n11-5r9a13 [facility] nn 2f6d3b 2015-02-04 2015-02-04 lab order/ nullFlavo Bria, a4d om02m-x [facility] 19:23:00 19:23:00 x-ray r Gaurav GRANT fcb-4f4b-b l 63f-0321d4 [facility] nn cea2ee 2015-02-04 2015-02-04 lab order/ nullFlavo Bria, 6df m60wn-1 [facility] 19:23:00 19:23:00 x-ray r Gaurav GRANT t56-4614-r l 4cd-5f1ca9 [facility] nn 9fb13d 2015-02-04 2015-02-04 lab order/ nullFlavo Bria, 1a1 w10vg-9 [facility] 19:23:00 19:23:00 x-ray r Gaurav GRANT 885-40d4-9 l 335-e8f9fc [facility] nn 6c2a05 2015-02-04 2015-02-04 lab order/ nullFlavo Bria, 684 2s26c-i [facility] 19:23:00 19:23:00 x-ray r Gaurav GRANT 17e-47f4-b l i74-ch429r [facility] nn dd68e0 2015-02-03 2015-02-03 release nullFlavo Bria, v80495 e5-f [facility] 23:01:00 23:01:00 for sx r Gaurav GRANT 9s6-2ffw-0 l be5-b1f5ab [facility] nn 09w238 2015-02-03 2015-02-03 release nullFlavo Bria, 0d8a0c 8d-f [facility] 23:01:00 23:01:00 for sx r Gaurav GRANT 5ef-48b5-b l 1e7-fm8017 [facility] nn 76c69a 2015-02-03 2015-02-03 release nullFlavo Bria, 33bdd0 a2-b [facility] 23:01:00 23:01:00 for sx r Gaurav GRANT q0f-1c9k-3 l 0m7-6o8c48 [facility] nn 7a80e7 2015-02-03 2015-02-03 release nullFlavo Bria, d89e26 e8-c [facility] 23:01:00 23:01:00 for sx r Gaurav GRANT db0-404e-9 l 7r4-m8w0m1 [facility] nn e82563 2015-02-03 2015-02-03 release nullFlavo Bria, 1a99fc be-0 [facility] 23:01:00 23:01:00 for sx r Gaurav GRANT 7u0-7338-0 l 04c-9288dc [facility] nn 050281 5175-10-28 2015-02-03 release nullFlavo Bria, 9909d6 8e-3 [facility] 23:01:00 23:01:00 for sx r Gaurav GRANT 348-4290-8 l 318-72u952 [facility] nn 97051u 2015-02-03 2015-02-03 release nullFlavo Bria, 606c1f 8e-a [facility] 23:01:00 23:01:00 for sx r Gaurav GRANT 682-4889-9 l 73d-6324ec [facility] nn 154e93 2015-02-03 2015-02-03 release nullFlavo Bria, a87c6f 4f-6 [facility] 23:01:00 23:01:00 for sx r Gaurav GRANT g30-4385-u l s8m-9300l5 [facility] nn 53f2aa 2015-02-03 2015-02-03 release nullFlavo Bria, r79534 fd-9 [facility] 23:01:00 23:01:00 for sx r Gaurav GRANT 319-42e4-9 l ff9-35f09c [facility] nn m4026l 2015-02-03 2015-02-03 release nullFlavo Bria, d7deb8 d1-b [facility] 23:01:00 23:01:00 for sx r Gaurav GRANT 9x9-7107-o l 10d-0ca3ef [facility] nn 98bcf8 2015-02-03 2015-02-03 release nullFlavo Bria, 7e40cd 04-3 [facility] 23:01:00 23:01:00 for sx r Gaurav GRANT 7af-4454-a l o4r-i43o35 [facility] nn 230fee 2015-02-03 2015-02-03 release nullFlavo Bria, z43667 2c-f [facility] 23:01:00 23:01:00 for sx r Gaurav GRANT 156-4b63-b l 639-48f8a2 [facility] nn 00a2ef 2015-02-03 2015-02-03 release nullFlavo Bria, 37i523 b9-6 [facility] 23:01:00 23:01:00 for sx r Gaurav GRANT 039-46c5-a l 0dd-ac6d1f [facility] nn b032d7 2015-02-03 2015-02-03 release nullFlavo Bria, y6924r 08-c [facility] 23:01:00 23:01:00 for sx r Gaurav GRANT 50a-4fa1-8 l s6w-q71357 [facility] nn 4c6f5b 2015-02-03 2015-02-03 release nullFlavo Bria, c0aa40 bb-2 [facility] 22:01:00 22:01:00 for sx r Gaurav GRANT ce0-4bd8-8 l 9h9-22ji57 [facility] nn 990183 7044-10-28 2015-02-03 release nullFlavo Bria, 37afc2 cd-4 [facility] 22:01:00 22:01:00 for sx r Gaurav GRANT 5cb-4266-9 l k2l-k114sk [facility] nn fefb36 2015-02-03 2015-02-03 release nullFlavo Bria, 0p7539 48-1 [facility] 22:01:00 22:01:00 for sx r Gaurav GRANT 13b-4715-8 l 253-63w972 [facility] nn 299cc9 2015-02-03 2015-02-03 release nullFlavo Bria, 89c50a d6-8 [facility] 22:01:00 22:01:00 for sx r Gaurav GRANT 448-4d8e-b l ac0-22ac5e [facility] nn e1560e 2015-01-04 2015-01-04 [facility] nullFlavo Bria, 33fd9 1c6-9 [facility] 22:30:00 22:30:00 r Gaurav GRANT b68-773b-t l fa9-f8a32b [facility] nn 9f2e82 2015-01-04 2015-01-04 [facility] nullFlavo Bria, f5807 17e-b [facility] 22:30:00 22:30:00 r Gaurav GRANT z6j-1en5-2 l bbf-8b9ee8 [facility] ebbbe3 2015-01-04 2015-01-04 [facility] nullFlavo Bria, 54cef 5fe-7 [facility] 22:30:00 22:30:00 r Gaurav GRANT 740-43f9-a l 6p2-f1lvhn [facility] ef3bbf 2015-01-04 2015-01-04 [facility] nullFlavo Bria, f0ef7 206-7 [facility] 22:30:00 22:30:00 r Gaurav GRANT 269-46fd-9 l 951-11449g [facility] 368430 0905-09-28 2015-01-04 [facility] nullFlavo Bria, 92d98 208-9 [facility] 22:30:00 22:30:00 r Gaurav GRANT 904-4259-9 l s4q-27pti9 [facility] qqo130 2015-01-04 2015-01-04 [facility] nullFlavo Bria, 22d92 5d4-e [facility] 22:30:00 22:30:00 r Gaurav GRANT o9y-034b-9 l 70e-4d3d30 [facility] y4n671 2015-01-04 2015-01-04 [facility] nullFlavo Bria, bdbc1 e80-c [facility] 22:30:00 22:30:00 r Gaurav GRANT l14-50dv-1 l 6v9-80n63l [facility] bc4f46 2015-01-04 2015-01-04 [facility] nullFlavo Bria, cfe5b 85b-6 [facility] 21:30:00 21:30:00 r Gaurav GRANT 76a-4458-a l 67a-4lk309 [facility] 4ff2e1 2015-01-04 2015-01-04 [facility] nullFlavo Bria, 06969 914-1 [facility] 21:30:00 21:30:00 r Gaurav GRANT f87-18pu-j l 098-6f1b8d [facility] b9ab77 2015-01-04 2015-01-04 [facility] nullFlavo Bria, 67a75 2b6-d [facility] 21:30:00 21:30:00 r Gaurav GRANT bd6-4d9e-8 l 997-4522a5 [facility] 02abea 2015-01-04 2015-01-04 [facility] nullFlavo Bria, 75b22 c7b-b [facility] 21:30:00 21:30:00 patti Nolasco MD dc8-42e9-b l 2a8-60a440 [facility] nn 795a90 2014-12-24 2014-12-24 Needs nullFlavo Bria, 3bda8a 55-a [facility] 21:30:00 21:30:00 Sleeping patti Nolasco MD 287-4650-8 l meds 82d-8bd2ed [facility] nn vc6335 2014-12-24 2014-12-24 Needs nullFlavo Bria, 2g9533 81-b [facility] 21:30:00 21:30:00 Sleeping patti Nolasco MD i13-9fn9-m l meds c52-4c4t3e [facility] nn 5749c9 2014-12-24 2014-12-24 Needs nullFlavo Bria, 318b64 fc-4 [facility] 21:30:00 21:30:00 Sleeping patti Nolasco MD 413-42f2-b l meds 475-o2y880 [facility] nn x4c506 2014-12-24 2014-12-24 Needs nullFlavo Bria, e797e0 17-7 [facility] 21:30:00 21:30:00 Sleeping patti Nolasco MD m40-4672-7 l meds afc-51dea0 [facility] nn aoz014 2014-12-24 2014-12-24 Needs nullFlavo Bria, ujf076 9d-e [facility] 21:30:00 21:30:00 Sleeping patti Nolasco MD aa1-4467-b l meds 280-cafcf0 [facility] nn 3c1f57 2014-12-24 2014-12-24 Needs nullFlavo Bria, 792eeb 6f-b [facility] 21:30:00 21:30:00 Sleeping patti Nolasco MD 01f-468c-a l meds e16-897q8l [facility] nn 34ae6c 2014-12-24 2014-12-24 Needs nullFlavo Bria, 072713 e7-4 [facility] 21:30:00 21:30:00 Sleeping patti Nolasco MD 965-4d93-a l meds 00c-a1af2c [facility] nn e5b17d 2014-12-24 2014-12-24 Needs nullFlavo Bria, e953f2 9f-8 [facility] 20:30:00 20:30:00 Sleeping r Gaurav GRANT 6q8-52x1-4 l meds 9n9-8f8wl3 [facility] nn 2q8237 2014-12-24 2014-12-24 Needs nullFlavo Bria, x60595 e5-b [facility] 20:30:00 20:30:00 Sleeping r Gaurav GRANT aeb-4b2d-9 l meds 2v8-c003a3 [facility] nn 029b23 2014-12-24 2014-12-24 Needs nullFlavo Bria, c8c05a 94-7 [facility] 20:30:00 20:30:00 Sleeping r Gaurav GRANT l81-1223-9 l meds 141-9f53b9 [facility] nn y3286a 2014-12-24 2014-12-24 Needs nullFlavo Bria, 49535m af-e [facility] 20:30:00 20:30:00 Sleeping r Gaurav GRANT ffc-47c8-8 l meds 12c-b9d17f [facility] nn aeee78 2014-11-17 2014-11-17 refill nullFlavo Bria, g5t724 dd-1 [facility] 16:01:00 16:01:00 r Gaurav GRANT fd8-457d-9 l dab-434a13 [facility] nn 703f0b 2014-11-17 2014-11-17 refill nullFlavo Bria, d8efe3 79-3 [facility] 16:01:00 16:01:00 r Gaurav GRANT 8m9-5h1l-e l 4a8-a28188 [facility] nn 34906v 2014-11-17 2014-11-17 refill nullFlavo Bria, 28u348 be-9 [facility] 16:01:00 16:01:00 patti Nolasco MD eec-4aa0-8 l 7dd-820423 [facility] nn dc91dd 2014-11-17 2014-11-17 refill nullFlavo Bria, 6s0449 e4-4 [facility] 16:01:00 16:01:00 patti Nolasco MD u1l-5v75-7 l 371-472abd [facility] nn 937716 1362-08-11 2014-11-17 refill nullFlavo Bria, 1bbbbc 0b-2 [facility] 16:01:00 16:01:00 r Gaurav GRANT galindo-47b8-9 l df1-6eede1 [facility] nn 224eed 2014-11-17 2014-11-17 refill nullFlavo Bria, d81ea3 2a-1 [facility] 16:01:00 16:01:00 r Gaurav GRANT 7cc-496d-9 l 70b-1k5908 [facility] nn 35fef5 2014-11-17 2014-11-17 refill nullFlavo Bria, a5f7bb 76-e [facility] 16:01:00 16:01:00 r Gaurav GRANT 651-4d16-9 l cc6-c7b4f1 [facility] nn c244a4 2014-11-17 2014-11-17 refill nullFlavo Bria, 02472e 68-7 [facility] 16:01:00 16:01:00 r Gaurav GRANT i0v-7qwl-6 l l24-3mty0z [facility] nn t9p473 2014-11-17 2014-11-17 refill nullFlavo Bria, 69a53f 9f-7 [facility] 16:01:00 16:01:00 r Gaurav GRANT 8d5-77u0-v l bee-5fefeb [facility] nn e56e65 2014-11-17 2014-11-17 refill nullFlavo Bria, 2325ae c9-c [facility] 16:01:00 16:01:00 r Gaurav GRANT 36c-48fa-8 l ac5-l96898 [facility] nn f2d2ad 2014-11-17 2014-11-17 refill nullFlavo Bria, x60158 df-f [facility] 16:01:00 16:01:00 r Gaurav GRANT 683-4fe4-9 l 784-6047ae [facility] nn 3l5194 2014-11-17 2014-11-17 refill nullFlavo Bria, 4s1109 ed-3 [facility] 16:01:00 16:01:00 r Gaurav GRANT 6k3-5744-1 l v6u-78pg23 [facility] nn 2b8fc7 2014-11-17 2014-11-17 refill nullFlavo Bria, 3a47ad 53-2 [facility] 16:01:00 16:01:00 r Gaurav GRANT v1p-8484-j l x1o-xm80f8 [facility] nn d7edfa 2014-11-17 2014-11-17 refill nullFlavo Bria, t12021 b0-8 [facility] 16:01:00 16:01:00 r Gaurav GRANT 682-41f0-8 l a1n-layz4b [facility] nn 33dded 2014-11-17 2014-11-17 refill nullFlavo Bria, b73d8d b9-9 [facility] 15:01:00 15:01:00 r Gaurav GRANT aff-4a63-8 l 93a-cbe3a7 [facility] nn d2a2b8 2014-11-17 2014-11-17 refill nullNicko Bria, dca4eb 9d-f [facility] 15:01:00 15:01:00 r Gaurav GRANT a06-54sm-k l fea-51b2ad [facility] nn 2c922y 2014-11-17 2014-11-17 refill nullNicko Bria, 169e83 fa-1 [facility] 15:01:00 15:01:00 r Gaurav GRANT 1af-42b8-b l 783-01ea95 [facility] nn 9d9f5a 2014-11-17 2014-11-17 refill nullMalik Fraser, q0a256 02-c [facility] 15:01:00 15:01:00 r Gaurav GRANT 57e-441e-a l c56-b292z4 [facility] nn f09a14 2014-11-17 2014-11-17 refill nullNicko Bria, 26435t 61-6 [facility] 15:01:00 15:01:00 r Gaurav GRANT 5cc-458f-b l fb5-fb76a1 [facility] nn 7d647v 2014-11-17 2014-11-17 refill nullNicko Bria, d745a8 42-6 [facility] 15:01:00 15:01:00 r Gaurav GRANT y3p-2653-k l fcc-9e63b8 [facility] nn 0f06f9 2014-11-05 2014-11-05 4 Months nullFlavo Bria, e4aa3 177-b [facility] 14:30:00 14:30:00 (Reason: patti Nolasco MD l23-4k02-1 l Thyroid dc2-6cf4a9 [facility] nn and 03d96a Triglyceri anupama ) 2014-11-05 2014-11-05 4 Months nullFlavreji Fraser, be23a 0e2-b [facility] 14:30:00 14:30:00 (Reason: patti Nolasco MD 5h5-233k-3 l Thyroid 073-380af9 [facility] nn and b087e4 Triglyceri anupama ) 2014-11-05 2014-11-05 4 Months nullFlavreji Fraser, aa958 998-f [facility] 14:30:00 14:30:00 (Reason: patti Nolasco MD 414-4492-a l Thyroid s15-71243l [facility] nn and 8rv974 Triglyceri anupama ) 2014-11-05 2014-11-05 4 Months nullFlavreji Fraser, 91a5d 25f-2 [facility] 14:30:00 14:30:00 (Reason: patti Nolasco MD u31-2h6f-4 l Thyroid arnol-7xs521 [facility] nn and 96295f Triglyceri anupama ) 2014-11-05 2014-11-05 4 Months nullFlavreji Fraser, 20a70 fb2-d [facility] 14:30:00 14:30:00 (Reason: patti Nolasco MD 35f-4504-b l Thyroid cac-c36e98 [facility] nn and 653509 Triglyceri anupama ) 2014-11-05 2014-11-05 4 Months nullFlavreji Fraser, 226da feb-4 [facility] 14:30:00 14:30:00 (Reason: patti Nolasco MD 6e5-7205-b l Thyroid a4j-hzc03l [facility] nn and 4c64ed Triglyceri anupama ) 2014-11-05 2014-11-05 4 Months nullFlavreji Fraser, ec187 be3-f [facility] 14:30:00 14:30:00 (Reason: patti Nolasco MD 4x4-83ek-h l Thyroid 47c-38102i [facility] nn and l20015 Triglyceri anupama ) 2014-11-05 2014-11-05 4 Months nullFlavo Bria, 1625b 686-9 [facility] 14:30:00 14:30:00 (Reason: patti Nolasco MD g8f-4v8b-w l Thyroid ff8-x44815 [facility] nn and 0r0339 Triglyceri anupama ) 2014-11-05 2014-11-05 4 Months nullFlavo Bria, 93721 8aa-0 [facility] 13:30:00 13:30:00 (Reason: patti Nolasco MD 175-4190-9 l Thyroid c6l-ux91y3 [facility] nn and a8c7a7 Triglyceri anupama ) 2014-11-05 2014-11-05 4 Months nullFlavo Bria, 658f2 829-5 [facility] 13:30:00 13:30:00 (Reason: patti Nolasco MD 08b-498a-b l Thyroid cbd-0ff2de Linda nn and 481e69 Triglyceri anupama ) 2014-11-05 2014-11-05 4 Months nullFlavo Bria, 33e19 2a0-c [facility] 13:30:00 13:30:00 (Reason: patti Nolasco MD 826-473b-9 l Thyroid 9k3-0euo8t Linda nn and 6e5c44 Triglyceri anupama ) 2014-11-05 2014-11-05 4 Months nullFlavo Bria, 896c4 c93-9 [facility] 13:30:00 13:30:00 (Reason: patti Nolasco MD 6af-4b8b-9 l Thyroid 915-bf8abc Linda nn and 06504y Triglyceri anupama ) 2014-11-05 2014-11-05 4 Months nullFlavo Bria, 8a0de ca5-4 [facility] 13:30:00 13:30:00 (Reason: patti Nolasco MD 4v6-41zc-h l Thyroid r6e-v1lyj2 Linda nn and aaf21a Triglyceri anupama ) 2014-11-05 2014-11-05 4 Months nullFlavo Bria, f6cd5 58b-7 [facility] 13:30:00 13:30:00 (Reason: patti Nolasco MD 31c-41fd-b l Thyroid 74e-1e3e37 Linda nn and c49bf5 Triglyceri anupama ) 2014-07-06 2014-07-06 2 Weeks nullFlavo Bria, 78b94e 5d-3 [facility] 15:15:00 15:15:00 (Reason: patti Nolasco MD c6x-0152-4 l Bronchitis 3ac-6z272t [facility] ) 44439y 2014-07-06 2014-07-06 2 Weeks nullFlavo Bria, 6e8cf6 25-9 [facility] 15:15:00 15:15:00 (Reason: patti Nolasco MD 6y0-67p1-z l Bronchitis 9m6-1231lr [facility] ) 2i1510 2014-07-06 2014-07-06 2 Weeks nullFlavo Bria, 9zg614 9b-6 [facility] 15:15:00 15:15:00 (Reason: patti Nolasco MD 865-4ac3-8 l Bronchitis q7i-9i2776 [facility] ) c1ca66 2014-07-06 2014-07-06 2 Weeks nullFlavo Bria, 46a97c b1-2 [facility] 15:15:00 15:15:00 (Reason: patit Nolasco MD u5q-8987-u l Bronchitis o5i-8msk7u [facility] ) 76e3fa 2014-07-06 2014-07-06 2 Weeks nullFlavo Bria, q04092 3e-c [facility] 15:15:00 15:15:00 (Reason: patti Nolasco MD fb3-433f-a l Bronchitis 33f-e27aca [facility] ) bl403l 2014-07-06 2014-07-06 2 Weeks nullFlavo Bria, 2845f6 21-2 [facility] 15:15:00 15:15:00 (Reason: patti Nolasco MD 9k0-595t-8 l Bronchitis aa7-xex179 [facility] ) a28dcd 2014-07-06 2014-07-06 2 Weeks nullFlavo Bria, 02e0a9 48-2 [facility] 15:15:00 15:15:00 (Reason: patti Nolasco MD dca-4966-9 l Bronchitis 02e-28b9ef [facility] ) d50a77 2014-07-06 2014-07-06 2 Weeks nullFlavo Bria, 53dcba 0c-0 [facility] 15:15:00 15:15:00 (Reason: patti Nolasco MD 42f-4e35-b l Bronchitis 7j5-me89hy [facility] ) f301c7 2014-07-06 2014-07-06 2 Weeks nullFlavo Bria, 124a2f 06-e [facility] 15:15:00 15:15:00 (Reason: patti Nolasco MD 0i9-9201-x l Bronchitis 4k9-731ls9 [facility] ) 0jt984 2014-07-06 2014-07-06 2 Weeks nullFlavo Bria, 07a74f e4-1 [facility] 15:15:00 15:15:00 (Reason: patti Nolasco MD 839-4154-a l Bronchitis fa0-x0e044 [facility] ) aa72e5 2014-07-06 2014-07-06 2 Weeks nullFlavo Bria, c895af 6a-c [facility] 15:15:00 15:15:00 (Reason: patti Nolasco MD 8q4-4ymn-5 l Bronchitis 1eb-592e06 [facility] ) dhf072 2014-07-06 2014-07-06 2 Weeks nullFlavo Bria, 26a2f1 38-b [facility] 15:15:00 15:15:00 (Reason: patti Nolasco MD e56-2d54-5 l Bronchitis 9i0-60y4ed [facility] ) e622f5 2014-07-06 2014-07-06 2 Weeks nullFlavo Bria, e9c59c 64-2 [facility] 15:15:00 15:15:00 (Reason: patti Nolasco MD 87f-485b-8 l Bronchitis 37c-0c78de [facility] ) 533877 2482-03-30 2014-07-06 2 Weeks nullFlavo Bria, b151cc 0c-d [facility] 15:15:00 15:15:00 (Reason: patti Nolasco MD 7df-4131-9 l Bronchitis v16-0313q7 [facility] ) 05d489 2014-07-06 2014-07-06 2 Weeks nullFlavo Bria, 80f7ce 10-9 [facility] 14:15:00 14:15:00 (Reason: patti Nolasco MD 0o8-5i4d-2 l Bronchitis 60f-7f7916 [facility] ) 4r6179 2014-07-06 2014-07-06 2 Weeks nullFlavo Bria, 445c9e e4-e [facility] 14:15:00 14:15:00 (Reason: patti Nolasco MD ab4-4751-8 l Bronchitis 01e-f97a03 [facility] ) 851af6 2014-07-06 2014-07-06 2 Weeks nullFlavo Bria, kc0590 47-4 [facility] 14:15:00 14:15:00 (Reason: patti Nolasco MD ce3-4a1e-9 l Bronchitis 0l7-yy2w0l [facility] ) c6e3d2 2014-07-06 2014-07-06 2 Weeks nullFlavo Bria, cad75c 05-a [facility] 14:15:00 14:15:00 (Reason: patti Nolasco MD 21b-40cc-a l Bronchitis f91-78g2n8 [facility] ) 999e9a 2014-07-06 2014-07-06 2 Weeks nullFlavo Bria, ece6f2 65-f [facility] 14:15:00 14:15:00 (Reason: patti Nolasco MD 4f7-61tc-j l Bronchitis b15-0du4g5 [facility] ) [id number] 7617-03-30 2014-07-06 2 Weeks nullFlavo Bria, 1d42fd 07-3 [facility] 14:15:00 14:15:00 (Reason: patti Nolasco MD 364-40d6-b l Bronchitis 8bc-cf16e5 [facility] ) d230ec 2014-06-22 2014-06-22 3M X HTN, nullFlavo Bria, bdcc 5a23-0 [facility] 15:00:00 15:00:00 Hyperlipid patti Nolasco MD fac-4059-a l emia , 4fb-392207 Linda nn myalgia 1d2185 2014-06-22 2014-06-22 3M X HTN, nullFlavo Bria, 8fe6 3ee2-f [facility] 15:00:00 15:00:00 Hyperlipid patti Nolasco MD 4d2-3741-m l emia , 5fb-xba555 Linda nn myalgia q3l577 2014-06-22 2014-06-22 3M X HTN, nullFlavo Bria, 360e fade-5 [facility] 15:00:00 15:00:00 Hyperlipid patti Nolasco MD p44-373i-9 l emia , 34a-270a5a Linda nn myalgia 6w4605 2014-06-22 2014-06-22 3M X HTN, nullFlavo Bria, 81a4 afa7-f [facility] 15:00:00 15:00:00 Hyperlipid r Gaurav GRANT h6c-58p5-3 l emia , n99-891rpw Linda nn myalgia b4aaee 2014-06-22 2014-06-22 3M X HTN, nullFlavo Rbia, 3458 832e-d [facility] 15:00:00 15:00:00 Hyperlipid r Gaurav GRANT 206-46f5-8 l emia , v36-1qr51n Linda nn myalgia 258836 5493-03-16 2014-06-22 3M X HTN, nullFlavo Bria, f7f6 44f0-5 [facility] 15:00:00 15:00:00 Hyperlipid r Gaurav GRANT 54f-4e8f-9 l emia , 5n0-i88508 Linda nn myalgia 64dfde 2014-06-22 2014-06-22 3M X HTN, nullFlavo Bria, 8079 2a85-6 [facility] 15:00:00 15:00:00 Hyperlipid r Gaurav GRANT 539-45d3-9 l emia , 1bd-045cd5 Linda nn myalgia e663c0 2014-06-22 2014-06-22 3M X HTN, nullFlavo Bria, 75f4 0e56-5 [facility] 15:00:00 15:00:00 Hyperlipid r Gaurav GRANT ec7-403d-9 l emia , 2i6-q4ipk6 Linda nn myalgia 0821e0 2014-06-22 2014-06-22 3M X HTN, nullFlavo Bria, c67e 850a-8 [facility] 15:00:00 15:00:00 Hyperlipid r Gaurav GRANT h0w-1827-l l emia , bf6-63d32e Linda nn myalgia 29h605 2014-06-22 2014-06-22 3M X HTN, nullFlavo Bria, fee3 3acf-9 [facility] 15:00:00 15:00:00 Hyperlipid r Gaurav GRANT 5m1-2q16-i l emia , 0a9-366p11 Linda nn myalgia 89ea4c 2014-06-22 2014-06-22 3M X HTN, nullFlavo Bria, ff97 9302-7 [facility] 15:00:00 15:00:00 Hyperlipid r Gaurav GRANT f4a-5559-s l emia , q4c-51744q Linda nn myalgia 54bdb4 2014-06-22 2014-06-22 3M X HTN, nullFlavo Bria, 4e84 f21e-5 [facility] 15:00:00 15:00:00 Hyperlipid r Gaurav GRANT 339-4ea2-9 l emia , 7ec-1202bc Linda nn myalgia 257a00 2014-06-22 2014-06-22 3M X HTN, nullFlavo Bria, 3a53 eab3-4 [facility] 15:00:00 15:00:00 Hyperlipid r Gaurav GRANT 329-4c32-a l emia , ef4-17caa8 Linda nn myalgia 9y377h 2014-06-22 2014-06-22 3M X HTN, nullFlavo Bria, 1393 82fe-2 [facility] 15:00:00 15:00:00 Hyperlipid r Gaurav GRANT 932-45bb-9 l emia , 571-919627 Linda nn myalgia 882d24 2014-06-22 2014-06-22 3M X HTN, nullFlavo Bria, f9cc 5035-8 [facility] 14:00:00 14:00:00 Hyperlipid r Gaurav GRANT e3h-2b07-n l emia , aad-4f92a9 Linda nn myalgia 61g147 2014-06-22 2014-06-22 3M X HTN, nullFlavo Bria, 5591 4059-a [facility] 14:00:00 14:00:00 Hyperlipid r Gaurav GRANT 5bc-420a-8 l emia , 420-de67d4 Linda nn myalgia ea0ec9 2014-06-22 2014-06-22 3M X HTN, nullFlavo Bria, b716 0183-8 [facility] 14:00:00 14:00:00 Hyperlipid r Gaurav GRANT 489-46c6-8 l emia , k38-1ou6k7 Linda nn myalgia ee3a1a 2014-06-22 2014-06-22 3M X HTN, nullFlavo Bria, a384 74c7-7 [facility] 14:00:00 14:00:00 Hyperlipid r Gaurav GRANT s6l-523w-k l emia , 903-450d03 Linda nn myalgia 020580 5938-03-16 2014-06-22 3M X HTN, nullFlavo Bria, b10e d6fc-f [facility] 14:00:00 14:00:00 Hyperlipid r Gaurav GRANT 222-4e62-9 l emia , 87b-81f30d Linda nn myalgia x0750r 2014-06-22 2014-06-22 3M X HTN, nullFlavo Bria, b2e0 a39a-7 [facility] 14:00:00 14:00:00 Hyperlipid r Gaurav GRANT 0ac-4305-b l emia , 66d-60cbf5 Linda nn myalgia 0m360u 2014-05-18 2014-05-18 Unknown nullFlavo Bria, 26c3d4 f9-0 [facility] 21:28:00 21:28:00 r Gaurav GRANT 70c-4491-a l 3s6-4c124n Linda nn c227ec 2014-05-18 2014-05-18 Unknown nullFlavo Bria, 472b38 88-5 [facility] 21:28:00 21:28:00 r Gaurav GRANT 182-431b-8 l cce-1b46b5 Linda nn c561a3 2014-05-18 2014-05-18 Unknown nullFlavo Bria, 143c52 ee-7 [facility] 21:28:00 21:28:00 r Gaurav GRANT 043-4043-9 l 37d-t6z875 Linda nn 0f5b56 2014-05-18 2014-05-18 Unknown nullFlavo Bria, d8cd1e d6-9 [facility] 21:28:00 21:28:00 r Gaurav GRANT 8m5-74q5-z l v12-bv0w1g Linda nn z13443 2014-05-18 2014-05-18 Unknown nullFlavo Bria, 841210 9e-5 [facility] 21:28:00 21:28:00 r Gaurav GRANT o10-97l9-6 l 44c-7d8e2f Linda nn ce5bd3 2014-05-18 2014-05-18 Unknown nullFlavo Bria, 66da78 4f-3 [facility] 21:28:00 21:28:00 r Gaurav GRANT 4n7-513a-m l 9s6-2o6gz2 Linda nn 5b96c5 2014-05-18 2014-05-18 Unknown nullFlavo Bria, 118e91 58-b [facility] 21:28:00 21:28:00 r Gaurav GRANT bee-4172-b l v82-r7w9a9 Linda nn fad0db 2014-05-18 2014-05-18 Unknown nullFlavo Bria, f1c98b 93-6 [facility] 21:28:00 21:28:00 r Gaurav GRANT 33e-4546-b l 7j1-364v18 Linda nn 87j880 2014-05-18 2014-05-18 Unknown nullFlavo Bria, 3f4e7e 8b-6 [facility] 21:28:00 21:28:00 r Gaurav GRANT 107-4198-a l 7df-9ad1c2 Linda nn 5aea56 2014-05-18 2014-05-18 Unknown nullFlavo Bria, 4ij088 73-6 [facility] 21:28:00 21:28:00 r Gaurav GRANT 0ec-404f-b l b04-22yr3m Linda nn 0a41c2 2014-05-18 2014-05-18 Unknown nullFlavo Bria, 6he068 16-c [facility] 21:28:00 21:28:00 r Gaurav GRANT 141-4f60-9 l k0u-sn16wn Linda nn o1n207 2014-05-18 2014-05-18 Unknown nullFlavo Bria, 0c0c9c f6-e [facility] 21:28:00 21:28:00 r Gaurav GRANT 23b-46cf-8 l 524-7b05d9 Linda nn 950b2b 2014-05-18 2014-05-18 Unknown nullFlavo Bria, 455ce7 14-0 [facility] 21:28:00 21:28:00 r Gaurav GRANT 052-4fe7-b l f93-7w4e6n [facility] nn 4514c2 2014-05-18 2014-05-18 Unknown nullFlavo Bria, 1h5140 c2-1 [facility] 21:28:00 21:28:00 r Gaurav GRANT 4f6-72j3-1 l v32-b71uaf [facility] nn 0b9250 2014-05-18 2014-05-18 Unknown nullFlavo Bria, 5rx386 23-3 [facility] 20:28:00 20:28:00 r Gaurav GRANT p53-5b25-i l 5m9-8370l9 [facility] nn 24bab2 2014-05-18 2014-05-18 Unknown nullFlavo Bria, 129fd9 48-d [facility] 20:28:00 20:28:00 r Gaurav GRANT b4g-47an-l l 261-1cba60 [facility] nn 02e40f 2014-05-18 2014-05-18 Unknown nullFlavo Bria, 3ae0f2 e0-d [facility] 20:28:00 20:28:00 r Gaurav GRANT b23-2j3i-b l 2u7-6500a9 [facility] nn 8c6c5a 2014-05-18 2014-05-18 Unknown nullFlavo Bria, 025570 ee-a [facility] 20:28:00 20:28:00 r Gaurav GRANT 769-429a-9 l 008-062915 [facility] 143040 3365-02-09 2014-05-18 Unknown nullFlavo Bria, 7d06b5 54-d [facility] 20:28:00 20:28:00 r Gaurav GRANT 5fb-415f-b l 20f-81e420 [facility] 65ddea 2014-05-18 2014-05-18 Unknown nullFlavo Bria, u16012 84-1 [facility] 20:28:00 20:28:00 r Gaurav GRANT 685-4be7-9 l 380-e657fb [facility] oy4430 2014-03-23 2014-03-23 3 Months nullFlavo Bria, bf1a2 ecc-b [facility] 16:15:00 16:15:00 (Reason: r Gaurav GRANT 875-4230-9 l Thyroid , 079-035e57 Her mcguire cholestero b56617 l ) 2014-03-23 2014-03-23 3 Months nullFlavo Bria, 6a8db a8a-7 [facility] 16:15:00 16:15:00 (Reason: patti Nolasco MD x47-6017-0 l Thyroid , 6aa-e6c2bd Her m[facility]guire cholestero 2cbaaa l ) 2014-03-23 2014-03-23 3 Months nullFlavo Bria, d0b1d 3cb-e [facility] 16:15:00 16:15:00 (Reason: patti Nolasco MD h87-7s0a-6 l Thyroid , q7w-o05503 Her mcguire cholestero 902e3c l ) 2014-03-23 2014-03-23 3 Months nullFlavo Bria, 75efc c6d-c [facility] 16:15:00 16:15:00 (Reason: patti Nolasco MD ac2-429f-9 l Thyroid , 525-17fd00 Her mcguire cholestero pxq386 l ) 2014-03-23 2014-03-23 3 Months nullFlavo Bria, 9ef87 370-c [facility] 16:15:00 16:15:00 (Reason: patti Nolasco MD 3t8-0k02-m l Thyroid , h7u-q39229 Her mcguire cholestero 78038g l ) 2014-03-23 2014-03-23 3 Months nullFlavo Bria, cdfe9 db6-c [facility] 16:15:00 16:15:00 (Reason: patti Nolasco MD y33-2osd-z l Thyroid , 36c-d124ef Her mcguire cholestero 47fb8f l ) 2014-03-23 2014-03-23 3 Months nullFlavo Bria, 82b75 297-9 [facility] 16:15:00 16:15:00 (Reason: patti Nolasco MD s7e-13r7-7 l Thyroid , cbd-5294a9 Her mcguire cholestero 4df9e0 l ) 2014-03-23 2014-03-23 3 Months nullFlavo Bria, fb8e7 0c9-6 [facility] 16:15:00 16:15:00 (Reason: patti Nolasco MD t2k-67w7-g l Thyroid , f98-27br94 Her mcguire cholestero 4dfb20 l ) 2014-03-23 2014-03-23 3 Months nullFlavo Bria, a7883 cea-5 [facility] 16:15:00 16:15:00 (Reason: patti Nolasco MD 2e2-098d-l l Thyroid , j06-8i1uu8 Her mcguire cholestero 533561 l ) 2014-03-23 2014-03-23 3 Months nullFlavo Bria, 952fa 7d5-e [facility] 16:15:00 16:15:00 (Reason: patti Nolasco MD bf4-4cdb-9 l Thyroid , 9fd-6f55a2 Her mcguire cholestero 0s6552 l ) 2014-03-23 2014-03-23 3 Months nullFlavo Bria, 4ca68 697-9 [facility] 16:15:00 16:15:00 (Reason: patti Nolasco MD 94c-4228-8 l Thyroid , 00a-8b71fb Her mcguire cholestero 4ls599 l ) 2014-03-23 2014-03-23 3 Months nullFlavo Bria, 8fea7 8aa-f [facility] 16:15:00 16:15:00 (Reason: patti Nolasco MD adc-4090-b l Thyroid , g75-k1p9j3 Her mcguire cholestero 8375a1 l ) 2014-03-23 2014-03-23 3 Months nullFlavo Bria, ce8ac a68-8 [facility] 16:15:00 16:15:00 (Reason: patti Nolasco MD y73-909u-6 l Thyroid , 8u5-2s025s Her mcguire cholestero y2f843 l ) 2014-03-23 2014-03-23 3 Months nullFlavo Bria, 8caba cc6-7 [facility] 16:15:00 16:15:00 (Reason: patti Nolasco MD k84-02j5-1 l Thyroid , 994-963648 Her mcguire cholestero a197b8 l ) 2014-03-23 2014-03-23 3 Months nullFlavo Bria, 1a53d 1ae-f [facility] 16:15:00 16:15:00 (Reason: patti Nolasco MD 737-4031-8 l Thyroid , 48a-ba45e2 Her mcguire cholestero 34261j l ) 2014-03-23 2014-03-23 3 Months nullFlavo Bria, 06c75 314-b [facility] 15:15:00 15:15:00 (Reason: patti Nolasco MD 3v8-8611-3 l Thyroid , 345-0a4a07 Her mcguire cholestero c7e7eb l ) 2014-03-23 2014-03-23 3 Months nullFlavo Bria, 39839 e8a-c [facility] 15:15:00 15:15:00 (Reason: patti Nolasco MD t72-9km9-b l Thyroid , 30c-f56b54 Her mcguire cholestero 5b14b6 l ) 2014-03-23 2014-03-23 3 Months nullFlavreji Fraser, a7641 5be-d [facility] 15:15:00 15:15:00 (Reason: patti Nolasco MD fe8-47bc-a l Thyroid , u8o-046480 Her mcguire cholestero udt551 l ) 2014-03-23 2014-03-23 3 Months nullMalik Fraser, ec57f b9c-8 [facility] 15:15:00 15:15:00 (Reason: patti Nolasco MD ffd-4c4c-b l Thyroid , n4t-0m0sk3 Her mcguire cholestero 626b74 l ) 2014-03-23 2014-03-23 3 Months nullMalik Fraser, 06660 ee3-f [facility] 15:15:00 15:15:00 (Reason: patti Nolasco MD 598-4a5f-8 l Thyroid , dfc-699fe6 Her mcguire cholestero b586e6 l ) 2014-03-23 2014-03-23 3 Months nullMalik Fraser, e9164 66c-8 [facility] 15:15:00 15:15:00 (Reason: patti Nolasco MD b46-3sd7-s l Thyroid , 271-46405g Her mcguire cholestero e39fee l ) 2014-02-04 2014-02-04 Medication Sonya Fraser, d45 06k47-6 [facility] 19:30:00 19:30:00 s Issue patti Nolasco MD 38b-43a2-8 l 6u5-1d61wc Linda nn 99b0c5 2014-02-04 2014-02-04 Medication Sonya Fraser, a73 4w834-1 [facility] 19:30:00 19:30:00 s Issue patti Nolasco MD 366-49e2-8 l 8df-d31b85 [facility] nn 557016 0238-10-29 2014-02-04 Medication nullFlavo Bria, e64 964q2-r [facility] 19:30:00 19:30:00 s Issue patti Nolasco MD ce0-4911-9 l 44f-271577 [facility] nn n7a515 2014-02-04 2014-02-04 Medication nullFlavo Bria, ce0 bd9s2-0 [facility] 19:30:00 19:30:00 s Issue patti Nolasco MD 48e-4319-a l cea-0932e1 [facility] nn rn9622 2014-02-04 2014-02-04 Medication nullFlavo Bria, 283 n1993-f [facility] 19:30:00 19:30:00 s Issue patti Nolasco MD p08-6u28-7 l 6k6-m2f0z7 [facility] nn 35858f 2014-02-04 2014-02-04 Medication nullFlavo Bria, 482 87qg0-l [facility] 19:30:00 19:30:00 s Issue patti Nolasco MD ce4-481f-8 l 127-f730b2 [facility] nn 919ec4 2014-02-04 2014-02-04 Medication nullFlavo Bria, 9bf bo16l-1 [facility] 19:30:00 19:30:00 s Issue patti Nolasco MD 858-4d3e-9 l g71-bo29yh [facility] nn 0cs737 2014-02-04 2014-02-04 Medication nullFlavo Bria, 294 67u32-z [facility] 19:30:00 19:30:00 s Issue patti Nolasco MD 94f-4eb8-a l 731-be0e5c [facility] nn 1303a5 2014-02-04 2014-02-04 Medication nullFlavo Bria, 974 ffd06-0 [facility] 19:30:00 19:30:00 s Issue patti Nolasco MD 1l8-73yk-9 l 7a2-3889d7 [facility] nn ae66ac 2014-02-04 2014-02-04 Medication nullFlavo Bria, 6d7 37qd9-6 [facility] 19:30:00 19:30:00 s Issue patti Nolasco MD bf7-4d98-a l 41b-cd3a74 Linda nn 980b6f 2014-02-04 2014-02-04 Medication nullFlavo Bria, 786 13fr5-3 [facility] 19:30:00 19:30:00 s Issue patti Nolasco MD bc7-4162-8 l 23a-ea1bdf Linda nn zp833x 2014-02-04 2014-02-04 Medication nullFlavo Bria, b56 5x782-6 [facility] 19:30:00 19:30:00 s Issue patti Nolasco MD n26-91qu-u l 10e-35u359 Linda nn 13g521 2014-02-04 2014-02-04 Medication nullFlavo Bria, 738 264t5-1 [facility] 19:30:00 19:30:00 s Issue patti Nolasco MD 8b2-330z-5 l b2t-9q0bgh Linda nn a3d74b 2014-02-04 2014-02-04 Medication nullFlavo Bria, 2b1 3d576-5 [facility] 19:30:00 19:30:00 s Issue patti Nolasco MD 3t1-00r4-i l shakir-b7fa75 Linda nn 52943l 2014-02-04 2014-02-04 Medication nullFlavo Bria, 29d 7v078-3 [facility] 19:30:00 19:30:00 s Issue patti Nolasco MD d95-7110-1 l 870-72ae9e Linda nn 376b9a 2014-02-04 2014-02-04 Medication nullFlavo Bria, 425 7pt5p-r [facility] 19:30:00 19:30:00 s Issue patti Nolasco MD 622-4348-b l ef5-25r116 Linda nn q44582 2014-02-04 2014-02-04 Medication nullFlavo Bria, 786 i4pgu-l [facility] 18:30:00 18:30:00 s Issue patti Nolasco MD t4i-476g-r l 28e-v7f170 Linda nn 82bce3 2014-02-04 2014-02-04 Medication nullFlavo Bria, 858 x8207-0 [facility] 18:30:00 18:30:00 s Issue patti Nolasco MD fde-4ea1-b l l8s-1pq654 [facility] nn aebc34 2014-02-04 2014-02-04 Medication nullFlavo Bria, 289 e7368-5 [facility] 18:30:00 18:30:00 s Issue patti Nolasco MD 4v8-846p-u l k80-2w8765 [facility] nn xgf797 2014-02-04 2014-02-04 Medication nullFlavo Bria, 6a3 03099-3 [facility] 18:30:00 18:30:00 s Issue patti Nolasco MD df3-470e-8 l ec1-ffc0b6 [facility] nn 9dd6ca 2014-02-04 2014-02-04 Medication nullFlavo Bria, 6a4 o01v8-5 [facility] 18:30:00 18:30:00 s Issue patti Nolasco MD s56-9321-1 l ca3-d26a72 [facility] nn 592997 4177-10-29 2014-02-04 Medication nullFlavo Bria, c72 t8o1h-1 [facility] 18:30:00 18:30:00 s Issue patti Nolasco MD 19d-471a-8 l l8l-k900vn [facility] nn 73398m 2013-12-18 2013-12-18 2 Weeks nullFlavo Bria, 4b3ef9 aa-3 [facility] 14:45:00 14:45:00 (Reason: patti Nolasco MD 06d-4ad8-9 l Thyroid , k00-ep5m3d Her mcguire fibromyalg 999b57 ia ,osteoporo sis ) 2013-12-18 2013-12-18 2 Weeks nullFlavo Bria, 844517 d5-e [facility] 14:45:00 14:45:00 (Reason: patti Nolasco MD cb2-4bdf-b l Thyroid , 2aa-8294ce Her mcguire fibromyalg 919fc0 ia ,osteoporo sis ) 2013-12-18 2013-12-18 2 Weeks nullFlavo Bria, f681b0 aa-6 [facility] 14:45:00 14:45:00 (Reason: patti Nolasco MD ef7-4e6b-a l Thyroid , 618-0372f4 Her mcguire fibromyalg n95848 ia ,osteoporo sis ) 2013-12-18 2013-12-18 2 Weeks nullFlavo Bria, b8e0ca 19-e [facility] 14:45:00 14:45:00 (Reason: patti Nolasco MD 443-4068-9 l Thyroid , 6i6-931i71 Her mcguire fibromyalg 16edce ia ,osteoporo sis ) 2013-12-18 2013-12-18 2 Weeks nullFlavo Bria, f2ebe3 98-a [facility] 14:45:00 14:45:00 (Reason: patti Nolasco MD 3q3-32xw-w l Thyroid , p90-8v1g57 Her mcguire fibromyalg 7m338i ia ,osteoporo sis ) 2013-12-18 2013-12-18 2 Weeks nullFlavo Bria, 02d81f e4-7 [facility] 14:45:00 14:45:00 (Reason: patti Nolasco MD g13-62l1-8 l Thyroid , 996-q7428w Her mcguire fibromyalg po6974 ia ,osteoporo sis ) 2013-12-18 2013-12-18 2 Weeks nullFlavo Bria, 5u967k 9d-b [facility] 14:45:00 14:45:00 (Reason: patti Nolasco MD 415-440c-b l Thyroid , 814-bfff4f Her mcguire fibromyalg a9c7ac ia ,osteoporo sis ) 2013-12-18 2013-12-18 2 Weeks nullFlavo Bria, efaae2 26-f [facility] 14:45:00 14:45:00 (Reason: patti Nolasco MD 446-4378-9 l Thyroid , 146-8kt552 Her mcguire fibromyalg 663e1d ia ,osteoporo sis ) 2013-12-18 2013-12-18 2 Weeks nullFlavo Bria, 6ae78b dc-5 [facility] 14:45:00 14:45:00 (Reason: patti Nolasco MD 958-4cfb-8 l Thyroid , v6e-r75n71 Her mcguire fibromyalg 8b3c15 ia ,osteoporo sis ) 2013-12-18 2013-12-18 2 Weeks nullFlavo Bria, 70ad16 9e-5 [facility] 14:45:00 14:45:00 (Reason: patti Nolasco MD 654-41b7-8 l Thyroid , h82-q0uh3f Her mcguire fibromyalg 60b0ba ia ,osteoporo sis ) 2013-12-18 2013-12-18 2 Weeks nullFlavo Bria, 35f2d6 6c-7 [facility] 14:45:00 14:45:00 (Reason: patti Nolasco MD 118-4906-8 l Thyroid , aee-w5i289 Her mcguire fibromyalg 70363r ia ,osteoporo sis ) 2013-12-18 2013-12-18 2 Weeks nullFlavo Bria, 6846d4 45-3 [facility] 14:45:00 14:45:00 (Reason: patti Nolasco MD f17-3505-n l Thyroid , 8ad-3d4b20 Her mcguire fibromyalg 28cf4d ia ,osteoporo sis ) 2013-12-18 2013-12-18 2 Weeks nullFlavo Bria, 0z0453 24-0 [facility] 14:45:00 14:45:00 (Reason: patti Nolasco MD ab5-4029-9 l Thyroid , 2be-960c52 Her mcguire fibromyalg 363499 ia ,osteoporo sis ) 2013-12-18 2013-12-18 2 Weeks nullFlavo Bria, 82c0c6 a4-9 [facility] 14:45:00 14:45:00 (Reason: patti Nolasco MD g00-7j67-h l Thyroid , i93-9edz51 Her mcguire fibromyalg 130fd0 ia ,osteoporo sis ) 2013-12-18 2013-12-18 2 Weeks nullFlavo Bria, 2e7a78 1c-1 [facility] 14:45:00 14:45:00 (Reason: patti Nolasco MD 991-41de-a l Thyroid , a5w-7ve3z5 Her mcguire fibromyalg 4p5777 ia ,osteoporo sis ) 2013-12-18 2013-12-18 2 Weeks nullFlavo Bria, 25389u db-0 [facility] 14:45:00 14:45:00 (Reason: patti Nolasco MD 524-410e-a l Thyroid , gladys-eca3b2 Her mcguire fibromyalg 82d1f2 ia ,osteoporo sis ) 2013-12-18 2013-12-18 2 Weeks nullFlavo Bria, 0a2e26 5b-8 [facility] 13:45:00 13:45:00 (Reason: patti Nolasco MD sebas-44da-a l Thyroid , r58-o438lr Her mcguire fibromyalg 67p390 ia ,osteoporo sis ) 2013-12-18 2013-12-18 2 Weeks nullFlavo Bria, b2c4f6 8d-d [facility] 13:45:00 13:45:00 (Reason: patti Nolasco MD 5db-4b0a-b l Thyroid , 7f3-5cx453 Her mcguire fibromyalg 3f7d33 ia ,osteoporo sis ) 2013-12-18 2013-12-18 2 Weeks nullFlavo Bria, 05h869 b9-f [facility] 13:45:00 13:45:00 (Reason: patti Nolasco MD 1bf-4fa1-9 l Thyroid , 06d-6gj228 Her mcguire fibromyalg 9e6d70 ia ,osteoporo sis ) 2013-12-18 2013-12-18 2 Weeks nullFlavo Bria, fw915d 53-5 [facility] 13:45:00 13:45:00 (Reason: patti Nolasco MD 039-4e09-8 l Thyroid , 42c-c1e8c4 Her mcguire fibromyalg b27abd ia ,osteoporo sis ) 2013-12-18 2013-12-18 2 Weeks nullFlavo Bria, 2813e8 b2-3 [facility] 13:45:00 13:45:00 (Reason: patti Nolasco MD fb5-47ba-8 l Thyroid , 5m8-15z3y7 Her mcguire fibromyalg d15a34 ia ,osteoporo sis ) 2013-12-18 2013-12-18 2 Weeks nullFlavo Bria, 60bb36 5e-3 [facility] 13:45:00 13:45:00 (Reason: patti Nolasco MD s7s-543y-c l Thyroid , d3a-y4gt3h Her mcguire fibromyalg 3082d9 ia ,osteoporo sis ) 2013-12-18 2013-12-18 2 Weeks nullFlavo Bria, r0260d ac-9 [facility] 13:45:00 13:45:00 (Reason: patti Nolasco MD 87a-452a-9 l Thyroid , ca7-adeeb5 Her mcguire fibromyalg f8f5ca ia ,osteoporo sis ) 2013-12-06 2013-12-06 Unknown nullFlavo Bria, 09h077 5c-a [facility] 01:43:00 01:43:00 r Gaurav GRANT 76c-48f1-9 l bce-8270ee [facility] nn 2e4960 2013-12-06 2013-12-06 Unknown nullFlavo Bria, 0e07dd 34-5 [facility] 01:43:00 01:43:00 r Gaurav GRANT 9v8-2588-6 l 388-53496p [facility] nn afcab7 2013-12-06 2013-12-06 Unknown nullFlavo Bria, e83dff d0-e [facility] 01:43:00 01:43:00 r Gaurav GRANT 300-429c-b l 45f-091182 [facility] nn af9b3b 2013-12-06 2013-12-06 Unknown nullFlavo Bria, c3b05a da-e [facility] 01:43:00 01:43:00 r Gaurav GRANT o6w-3407-5 l 941-070deb [facility] nn c869b7 2013-12-06 2013-12-06 Unknown nullFlavo Bria, 63cb93 42-9 [facility] 01:43:00 01:43:00 r Gaurav GRANT r21-71n0-j l ccc-85f5b7 [facility] nn 74230d 2013-12-06 2013-12-06 Unknown nullFlavo Bria, 200069 ad-4 [facility] 01:43:00 01:43:00 r Gaurav GRANT 8i8-161d-4 l 348-t1o123 [facility] nn 651555 6379-08-30 2013-12-06 Unknown nullFlavo Bria, 113d1c 61-b [facility] 01:43:00 01:43:00 r Gaurav GRANT fa7-46d0-b l 5bc-144859 [facility] nn a6eb61 2013-12-06 2013-12-06 Unknown nullFlavo Bria, d575e4 8b-6 [facility] 01:43:00 01:43:00 r Gaurav GRANT 7p6-4v72-6 l 871-b924cb [facility] nn 344f73 2013-12-06 2013-12-06 Unknown nullFlavo Bria, h5202q b4-6 [facility] 01:43:00 01:43:00 r Gaurav GRANT 888-4ae5-b l t6w-j4268t [facility] nn c37ef3 2013-12-06 2013-12-06 Unknown nullFlavo Bria, f88d90 f9-e [facility] 01:43:00 01:43:00 r Gaurav GRANT 691-42f5-9 l 4dd-5ecd20 [facility] nn f98f84 2013-12-06 2013-12-06 Unknown nullFlavo Bria, 59302c 17-0 [facility] 01:43:00 01:43:00 r Gaurav GRANT 4fd-43eb-b l f6q-0xxbs8 [facility] nn f926c7 2013-12-06 2013-12-06 Unknown nullFlavo Bria, 1q484r 28-5 [facility] 01:43:00 01:43:00 r Gaurav GRANT x7o-2b55-t l 72e-217f96 [facility] nn 36930g 2013-12-06 2013-12-06 Unknown nullFlavo Bria, 1g397p 09-1 [facility] 01:43:00 01:43:00 r Gaurav GRANT 9be-44a0-8 l [id number] Linda nn f5a5f7 2013-12-06 2013-12-06 Unknown nullFlavo Bria, cjg076 61-c [facility] 01:43:00 01:43:00 r Gaurav GRANT t7y-6881-6 l b3j-je3i31 Linda nn a99a9f 2013-12-06 2013-12-06 Unknown nullFlavo Bria, q1421e 72-d [facility] 01:43:00 01:43:00 r Gaurav GRANT 339-4ba1-9 l ddc-afee6c Linda nn 48a7aa 2013-12-06 2013-12-06 Unknown nullFlavo Bria, 9521d2 42-2 [facility] 01:43:00 01:43:00 r Gaurav GRANT 9s3-587n-3 l c3d-6u90m8 Linda nn f79d2f 2013-12-06 2013-12-06 Unknown nullFlavo Bria, 91b9fe 0e-8 [facility] 00:43:00 00:43:00 r Gaurav GRANT e0x-1o48-4 l v1a-956l27 Linda nn 25d4ff 2013-12-06 2013-12-06 Unknown nullFlavo Bria, 94r896 16-0 [facility] 00:43:00 00:43:00 r Guarav GRANT p03-4u4t-o l 103-9079f9 Linda nn 354307 8904-08-30 2013-12-06 Unknown nullFlavo Bria, f8d58a 6e-9 [facility] 00:43:00 00:43:00 r Gaurav GRANT 4i7-7gf7-0 l 903-78m652 Linda nn 62u852 2013-12-06 2013-12-06 Unknown nullFlavo Bria, 37c7d5 cf-4 [facility] 00:43:00 00:43:00 r Gaurav GRANT p0x-3065-y l bc8-e44b4d Linda nn f616b2 2013-12-06 2013-12-06 Unknown nullFlavo Bria, 08a22d c6-0 [facility] 00:43:00 00:43:00 r Gaurav GRANT 6cb-4b13-8 l [id number] Linda nn ddf2c0 2013-12-06 2013-12-06 Unknown nullFlavo Bria, 6b8fe0 5b-0 [facility] 00:43:00 00:43:00 patti Nolasco MD 123-4f83-9 l [id number] Linda nn 9w258o 2013-12-06 2013-12-06 Unknown nullFlavo Bria, e7fb72 21-7 [facility] 00:43:00 00:43:00 r Gaurav GRANT ddb-4d49-a l susan-bd8e4b Linda nn 4a27e7 2013-12-06 2013-12-06 Unknown nullFlavo Bria, 645283 0a-a [facility] 00:43:00 00:43:00 r Gaurav GRANT 922-456b-9 l 1fd-bce3c8 Linda nn d31d53 2013-12-04 2013-12-04 Annual nullFlavo Bria, 03dd05 08-a [facility] 15:15:00 15:15:00 Pysical r Gaurav GRANT 5a5-25e1-4 l 84e-dad18f Linda nn 5ce572 2013-12-04 2013-12-04 Annual nullFlavo Bria, c8e7f0 ef-4 [facility] 15:15:00 15:15:00 Pysical r Gaurav GRANT 71e-4423-b l q3d-355x41 Linda nn 5oe394 2013-12-04 2013-12-04 Annual nullFlavo Bria, eba8ad 76-d [facility] 15:15:00 15:15:00 Pysical r Gaurav GRANT r16-4376-i l 155-3j988b [facility] nn 5cae58 2013-12-04 2013-12-04 Annual nullFlavo Bria, 437d19 42-a [facility] 15:15:00 15:15:00 Pysical patti Nolasco MD e31-5158-c l ebb-fc3b55 [facility] nn 0w9722 2013-12-04 2013-12-04 Annual nullFlavo Bria, 03ecce bc-d [facility] 15:15:00 15:15:00 Pysical r Gaurav GRANT 19f-48ab-8 l 2y0-7c0rp8 Linda nn 6c03d0 2013-12-04 2013-12-04 Annual nullFlavo Bria, ad39a6 31-f [facility] 15:15:00 15:15:00 Pysical r Gaurav GRANT 556-4204-a l 505-43504o Linda nn 143a24 2013-12-04 2013-12-04 Annual nullFlavo Bria, 72dc70 9c-f [facility] 15:15:00 15:15:00 Pysical r Gaurav GRANT eb8-4a9b-a l o19-i0305w [facility] nn 70cbac 2013-12-04 2013-12-04 Annual nullFlavo Bria, 6dd2c0 7e-1 [facility] 15:15:00 15:15:00 Pysical patti Nolasco MD q46-73fz-a l 154-5z3113 [facility] nn f4e40c 2013-12-04 2013-12-04 Annual nullFlavo Bria, e0l625 51-2 [facility] 15:15:00 15:15:00 Pysical patti oNlasco MD z94-92n2-w l 316-196cfa [facility] nn ayw692 2013-12-04 2013-12-04 Annual nullFlavo Bria, 0b7de6 7f-8 [facility] 15:15:00 15:15:00 Pysical r Gaurav GRANT 84c-4d37-8 l 4a3-3j9911 [facility] nn 0049e3 2013-12-04 2013-12-04 Annual nullFlavo Bria, 6e4b8e dc-9 [facility] 15:15:00 15:15:00 Pysical r Gaurav GRANT 877-43d3-8 l [id number]-bw3529 Linda nn [id number] 3378-08-28 2013-12-04 Annual nullFlavo Bria, 4t201j c5-1 [facility] 15:15:00 15:15:00 Pysical r Gaurav GRANT g09-0c14-2 l j28-9y0jd4 [facility] nn 8468b6 2013-12-04 2013-12-04 Annual nullFlavo Bria, 712799 be-6 [facility] 15:15:00 15:15:00 Pysical r Gaurav GRANT 5n4-3m86-9 l shaan-d94cf1 [facility] nn b12c91 2013-12-04 2013-12-04 Annual nullFlavo Bria, r9v382 58-8 [facility] 15:15:00 15:15:00 Pysical r Gaurav GRANT 291-44ff-a l 829-4fdf4d [facility] nn 59323d 2013-12-04 2013-12-04 Annual nullFlavo Bria, c19e9e 15-1 [facility] 15:15:00 15:15:00 Pysical r Gaurav GRANT 366-4cf2-b l ecf-d4f5a7 [facility] nn [id number] 2013-12-04 2013-12-04 Annual nullFlavo Bria, 125466 3f-9 [facility] 15:15:00 15:15:00 Pysical r Gaurav GRANT 500-4491-8 l 689-65d92e [facility] nn 44671h 2013-12-04 2013-12-04 Annual nullFlavo Bria, 8b3daa c3-9 [facility] 14:15:00 14:15:00 Pysical r Gaurav GRANT ecb-48db-9 l 6k8-39779g [facility] nn f225d4 2013-12-04 2013-12-04 Annual nullFlavo Bria, w0h026 0f-6 [facility] 14:15:00 14:15:00 Pysical patti Nolasco MD u2e-8177-3 l db1-5a37e3 Linda nn [id number] 2013-12-04 2013-12-04 Annual nullFlavo Bria, ca6b95 c5-e [facility] 14:15:00 14:15:00 Pysical patti Nolasco MD 748-4c60-9 l 3b8-2i8184 [facility] nn a894d1 2013-12-04 2013-12-04 Annual nullFlavo Bria, ep140b 67-1 [facility] 14:15:00 14:15:00 Pysical patti Nolasco MD 78d-47af-a l 735-4l3732 [facility] nn 301c41 2013-12-04 2013-12-04 Annual nullFlavo Bria, em5776 9c-a [facility] 14:15:00 14:15:00 Pysical patti Nolasco MD t79-824b-6 l m95-723406 [facility] nn 6eeef4 2013-12-04 2013-12-04 Annual nullFlavo Bria, 646329 97-b [facility] 14:15:00 14:15:00 Pysical patti Nolasco MD 1r4-5f42-n l 175-923b55 [facility] nn 6c278w 2013-12-04 2013-12-04 Annual nullFlavo Bria, 7ecb9d 6a-d [facility] 14:15:00 14:15:00 Pysical patti Nolasco MD 960-420a-b l diego-678efe [facility] nn 573bf1 Results Test Description Test Time Test Comments Results Result Sourc e Comments FL, CREDIT COLLECTIONS REP IN 2017-12-21 Reason for FLUOROSCOPIC UNIT OR/30 MINUTE 11:12:00 exam:->pain UTILIZED-NO INCREMENTS INTERPRETATION REQUESTED. /FREE T4 IF INDICATED 2017-12-13 06:42:00 Test Item Value Reference Range Interpretation Comme nts THYROID STIMULATING HORMONE (BEAKER) (test code = 772) 2.89 uIU/mL 0.35-4.94 BASIC METABOLIC [id number] 06:22:00 Test Item Value Reference Range Interpretation [...] PATIEN TS. CBC W/PLT COUNT & AUTO [id number] 06:14:00 Test Item Value Reference Range Interpretation [...] code = 2801) LACTIC ACID, VENOUS, WHOLE [id number] 15:27:00 Test Item Value Reference Range Interpretation Comments LACTATE BLOOD VENOUS (2) (BEAKER) 1.1 mmol/L 0.5-2.2 (test code = 2872) Effective 08/11/2015: Units/Reference Range ChangeNew: 0.5-2.2 mmol/L Previous: 5-20 mg/dLBASIC METABOLIC [id number] 13:31:00 Test Item Value Reference Range Interpretation [...] PATIEN TS. CBC W/PLT COUNT & AUTO [id number] 13:05:00 Test Item Value Reference Range Interpretation [...] PERCENT (BEAKER) (test code = 2801) [place], CREDIT COLLECTIONS REP IN OR/30 MINUTE [id number] 11:03:00Reason for exam:- >IMPLANTATION OF INTRATHECAL PUMPFINAL REPORT Single fluoroscopic spine image. Fluoroscopy time 15.2 seconds. Fluoroscopy was not performed by the undersigned. Refer to procedure notes for diagnostic and therapeutic detail. Signed: Tiara Pedersen Verified Date/Time: 12/11/2017 11:03:55 Reading Location:[facility] Radiology Reading Room TISSUE EXAM 2017-12-04 17:14:00Surgical Pathology Report Case: [id number] Authorizing Provider: Jerome Arias MD Collected: 11/30/2017 1327 Ordering Location: [facility] Received: 11/30/2017 1424 SERVICES Pathologist: Susan Ramos MD Specimen: Explant, hardware NEURAL STIMULATOR, REMOVAL: - HARDWARE IDENTIFIED (GROSS DIAGNOSIS) Signing Pathologist Direct Phone Line: [phone] pain disorderHardware, neural stimulator The specimen is received in a fluidless container labeled with patient information and labeled "hardware neural stimulator" and consists of a neural stimulator battery measuring5.2 x 5 x 0.6 cm with two attached leads measuring 60 cm in length x 0.1 cm in diameter. Specimen serial number [id number]. The specimen is submitted for gross identification only. /plMR, SPINE, THORACIC, [id number] 11:58:00FINAL REPORT MR thoracic and lumbar spine [...] lesion. Advise dedicated imaging. Signed: Autumn Watson MDRort Verified Date/Time: 12/04/2017 11:58:05 Reading Location: [address] Neuro Reading Room MR, SPINE, LUMBAR, [id number] 11:58:00FINAL REPORT MR thoracic and lumbar spine [...] [place] Verified Date/Time: 12/04/2017 11:58:05 Reading Location: [place] [id number] Neuro Reading Room RAD, CHEST, 2 VIEWS [...] [place] Verified Date/Time: 12/01/2017 16:14:55 Reading Location: [facility] [id number] Ortho Consult Reading Room ALYSIS W/ REFLEX URINE [id number] 10:01:00 Test Item Value Reference Range Interpretation [...] SOURCE(BEAKER) (test code = 2795) BASIC METABOLIC [id number] 09:45:00 Test Item Value Reference Range Interpretation [...] S NOT APPLICABLE FOR DIALYSIS PATIEN TS. [id number] 09:26:00 Test Item Value Reference Range Interpretation Comments PARTIAL THROMBOPLASTIN TIME 36.9 seconds 22.5-36.0 H (BEAKER) (test code = 760) PROTHROMBIN TIME/[id number] 09:25:00 Test Item Value Reference Range Interpretation [...] (test code = 2801) AFB CULTURE + [id number] 14:00:00 Test Item Value Reference Range Interpretation Comments CULTURE (BEAKER) (test No acid-fast bacilli code = 1095) isolated in 42 days AFB SMEAR (BEAKER) No acid fast bacilli (test code = 994) seen FUNGUS CULTURE + [id number] 15:41:00 Test Item Value Reference Range Interpretation Comments CULTURE (BEAKER) (test No fungus isolated in code = 1095) 28 days FUNGUS SMEAR (BEAKER) No fungi seen (test code = 1406) ANAEROBIC [id number] 04:04:00 Test Item Value Reference Range Interpretation Comments CULTURE (BEAKER) (test No anaerobes isolated code = 1095) SURGICALLY OBTAINED CULTURE + GRAM [id number] 14:12:00 Test Item Value Reference Interpretation Comments [...] (BEAKER) (test code = cocci in clusters 621754) TISSUE [id number] 15:59:00Surgical Pathology Report Case: [id number] Authorizing Provider: Jerome Arias MD Collected: 08/21/2017 1456 Ordering Location: 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 The serial number for the programmable pump is "[id number]". The specimen is submitted for gross identification. CG/ew Not performedSPIN/CONCENTRATION [id number] 11:42:00 Test Item Value Reference Range Interpretation Comments CONCENTRATION CHARGED (BEAKER) (test Done code = 2657) [id number] 06:19:00 Test Item Value Reference Range Interpretation [...] = 413) CREATINE KINASE (CK), TOTAL AND [id number] 00:38:00 Test Item Value Reference Range Interpretation Comments CREATINE KINASE TOTAL (BEAKER) 46 U/L 29-200 (test code = 380) CREATINE KINASE-MB (BEAKER) (test 1.0 ng/mL 0.0-6.6 code = 750) CREATINE KINASE-MB INDEX (BEAKER) 2.2 % (test code = 395) CK-MB Reference Range:<6.7 Normal6.7-10.0 Borderline>10.0 AbnormalTROPONIN [id number] 00:38:00 Test Item Value Reference Range Interpretation [...] acute neurological disease, and persistent tachyarrhythmia.HEPATIC FUNCTION [id number] 00:35:00 Test Item Value Reference Range Interpretation [...] code = 8 U/L 6-55 347) PROTHROMBIN TIME/[id number] 00:25:00 Test Item Value Reference Range Interpretation Comments PROTIME (BEAKER) (test code = 15.9 seconds 11.7-14.7 H 759) INR (BEAKER) (test code = 370) 1.3 <=5.9 RECOMMENDED COUMADIN/WARFARIN INR THERAPY RANGESSTANDARD DOSE: 2.0 - 3.0 Includes: PROPHYLAXIS forvenous thrombosis, systemic embolization; TREATMENT for venous thrombosis and/or pulmonary embolus.HIGH RISK: Target INR is 2.5-3.5 for patients with mechanical heart valves.PLATELET [id number] 12:50:00 Test Item Value Reference Range Interpretation Comments PLATELET COUNT (BEAKER) (test 197 K/CU MM 150-450 code = 756) BASIC METABOLIC [id number] 11:36:00 Test Item Value Reference Range Interpretation [...] DIALYSIS PATIEN TS. URINALYSIS W/ REFLEX URINE [id number] 11:28:00 Test Item Value Reference Range Interpretation [...] code = 516) SOURCE(BEAKER) (test code = 5805) CBC W/PLT COUNT & AUTO [id number] 11:27:00 Test Item Value Reference Range Interpretation [...] PERCENT (BEAKER) (test code = 2801) POCT-GLUCOSE [id number] 08:26:00 Test Item Value Reference Range Interpretation Comments POC-GLUCOSE METER 105 mg/dL 70-110 TESTED AT [facility] 6720 (BEAKER) (test code = [place] 1538) [address] BASIC METABOLIC [id number] 06:24:00 Test Item Value Reference Range Interpretation [...] (BEAKER) (test code = 413) BASIC METABOLIC [id number] 05:47:00 Test Item Value Reference Range Interpretation [...] WBC 0-0 (BEAKER) (test code = 413) [id number] 05:12:00 Test Item Value Reference Range Interpretation Comments PHOSPHORUS (BEAKER) (test code = 3.8 mg/dL 2.3-4.7 604) [id number] 05:12:00 Test Item Value Reference Range Interpretation Comments MAGNESIUM (BEAKER) (test code = 1.6 mg/dL 1.6-2.6 627) BASIC METABOLIC [id number] 05:12:00 Test Item Value Reference Range Interpretation [...] APPLICABLE FOR DIALYSIS PATIEN TS. HEPATIC FUNCTION [id number] 05:12:00 Test Item Value Reference Range Interpretation [...] 6-55 347) CBC W/PLT COUNT & AUTO [id number] 04:32:00 Test Item Value Reference Range Interpretation [...] 0-1 PERCENT (BEAKER) (test code = 2801) [id number] 09:47:00 Test Item Value Reference Range Interpretation Comments PHOSPHORUS (BEAKER) (test code = 3.7 mg/dL 2.3-4.7 604) [id number] 09:47:00 Test Item Value Reference Range Interpretation Comments MAGNESIUM (BEAKER) (test code = 1.8 mg/dL 1.6-2.6 627) BASIC METABOLIC [id number] 09:47:00 Test Item Value Reference Range Interpretation [...] APPLICABLE FOR DIALYSIS PATIEN TS. HEPATIC FUNCTION [id number] 09:47:00 Test Item Value Reference Range Interpretation [...] 6-55 347) CBC W/PLT COUNT & AUTO [id number] 09:16:00 Test Item Value Reference Range Interpretation [...] code = 2801) RAD, HAND, 2 VIEWS, [id number] 08:42:00Reason for exam:->history of left forearm/wrist fractureShould [...] [place] Verified Date/Time: 06/19/2017 08:42:08 [facility], FOR[facility]ARM, 2 VIEWS, [id number] 08:38:00Reason for exam:->history of left wrist/forearm fractureShould [...] [place] MDReport Verified Date/Time: 06/19/2017 08:38:49 Reading Location:[facility] Radiology Reading Room POCT-GLUCOSE [id number] 17:06:00 Test Item Value Reference Range Interpretation Comments POC-GLUCOSE METER 102 mg/dL 70-110 TESTED AT [facility] 6720 (BEAKER) (test code = [place] 1538) [address] T4, [id number] 14:34:00 Test Item Value Reference Range Interpretation Comments FREE T4 (BEAKER) (test code = 655) 1.13 ng/dL 0.70-1.48 [id number] 12:54:00 Test Item Value Reference Range Interpretation Comments PHOSPHORUS (BEAKER) (test code = 3.0 mg/dL 2.3-4.7 604) [id number] 12:54:00 Test Item Value Reference Range Interpretation Comments MAGNESIUM (BEAKER) (test code = 2.1 mg/dL 1.6-2.6 627) BASIC METABOLIC [id number] 12:54:00 Test Item Value Reference Range Interpretation [...] APPLICABLE FOR DIALYSIS PATIEN TS. HEPATIC FUNCTION [id number] 12:54:00 Test Item Value Reference Range Interpretation Comments TOTAL PROTEIN (BEAKER) (test code = 7.2 gm/dL 6.0-8.3 770) ALBUMIN ([facility]) (test code = 1145) 3.5 g/dL 3.5-5.0 BILIRUBIN TOTAL (AKER) (test code 0.4 mg/dL 0.2-1.2 = 377) BILIRUBIN DIRECT (AKER) (test 0.2 mg/dL 0.1-0.5 code = 706) ALKALINE PHOSPHATASE (AKER) (test 60 U/L 40-150 code = 346) AST (SGOT) (BEAKER) (test code = 20 U/L 5-34 353) ALT (SGPT) (AKER) (test code = 9 U/L 6-55 347) HEMOGLOBIN [id number] 12:08:00 Test Item Value Reference Range Interpretation Comments HEMOGLOBIN A1C ([facility]) (test code = 5.8 % 4.3-6.1 368) POCT-GLUCOSE [id number] 11:40:00 Test Item Value Reference Range Interpretation Comments POC-GLUCOSE METER 83 mg/dL 70-110 TESTED AT [facility] 67 ([facility]) (test code = [place] [facility] [address] 1538) TSH/FREE T4 IF [id number] 11:38:00 Test Item Value Reference Range Interpretation Comments THYROID STIMULATING HORMONE 8.19 uIU/mL 0.35-4.94 H ([facility]) (test code = 772) SEDIMENTATION [id number] 11:20:00 Test Item Value Reference Range Interpretation Comments SEDIMENTATION RATE, ERYTHROCYTE 101 mm/HR 0-40 H ([facility]) (test code = 766) LIPID [id number] 08:58:00 Test Item Value Reference Range Interpretation Comments TRIGLYCERIDES ([facility]) (test code = 131 mg/dL 540) CHOLESTEROL (BEAKER) (test code = 203 mg/dL 631) HDL CHOLESTEROL ([facility]) (test code 31 mg/dL = 976) LDL CHOLESTEROL CALCULATED ([facility]) 146 mg/dL (test code = 633) Triglyceride Reference Range: Low Risk <150 Borderline 150-199 High Risk 200-499 Very High Risk >=500Cholesterol Reference Range: Low Risk <200 Borderline 200-239 High Risk >240HDL Cholesterol Reference Range: Low Risk >=60 High Risk <40LDL Cholesterol Reference Range: Optimal <100 Near Optimal 100-129 Borderline 130-159 High 160-189 Very High >=190C-REACTIVE [id number] 08:58:00 Test Item Value Reference Range Interpretation Comments C-REACTIVE PROTEIN (BEAKER) (test 11.13 mg/dL 0.00-0.50 H code = 676) POCT-GLUCOSE [id number] 07:54:00 Test Item Value Reference Range Interpretation Comments POC-GLUCOSE METER 93 mg/dL 70-110 TESTED AT [facility] 6720 (BEAKER) (test code = [place] [address] 1538) CBC W/PLT COUNT & AUTO [id number] 06:52:00 Test Item Value Reference Range Interpretation [...] 0-1 PERCENT (BEAKER) (test code = 2801) PT/[id number] 06:35:00 Test Item Value Reference Range Interpretation [...] 2.5-3.5 for patients with mechanical heart valves.POCT-GLUCOSE [id number] 22:11:00 Test Item Value Reference Range Interpretation Comments POC-GLUCOSE METER 101 mg/dL 70-110 TESTED AT [facility] 6720 ([facility]) (test code = [place] [facility] 1538) [address] [place], CREDIT COLLECTIONS REP IN OR/30 MINUTE [id number] 11:15:00Reason for exam:- >Implantation of Intrathecal PumpFINAL [...] [place] Verified Date/Time: 06/13/2017 11:15:44 Reading Location: [facility] Radiology Reading Room URINALYSIS W/ REFLEX URINE [id number] 16:47:00 Test Item Value Reference Range Interpretation [...] (test code = 2795) RAD, CHEST, 2 [id number] 12:51:00Reason for exam:->PRE OP TESTINGFINAL REPORT Chest, [...] MDRep[place] Verified Date/Time: 05/15/2017 12:51:37 Reading Location: [address] Radiology Reading Room BASIC METABOLIC [id number] 12:14:00 Test Item Value Reference Range Interpretation [...] NOT APPLICABLE FOR DIALYSIS PATIEN TS. PROTHROMBIN TIME/[id number] 11:26:00 Test Item Value Reference Range Interpretation Comments PROTIME (BEAKER) (test code = 15.0 seconds 11.7-14.7 H 759) INR (BEAKER) (test code = 370) 1.2 <=5.9 RECOMMENDED COUMADIN/WARFARIN INR THERAPY RANGESSTANDARD DOSE: 2.0 - 3.0 Includes: PROPHYLAXIS forvenous thrombosis, systemic embolization; TREATMENT for venous thrombosis and/or pulmonary embolus.HIGH RISK: Target INR is 2.5-3.5 for patients with mechanical heart valves.[id number] 11:26:00 Test Item Value Reference Range Interpretation Comments PARTIAL THROMBOPLASTIN TIME 38.1 seconds 22.5-36.0 H (BEAKER) (test code = 760) CBC W/PLT COUNT & AUTO [id number] 11:18:00 Test Item Value Reference Range Interpretation [...] 0-1 PERCENT (BEAKER) (test code = 2801) Wwmzrwifh8061-57-12 15:01:006.7[facility] YqxtujvWtyrghurt0822-39-73 17:57:0010.0 [facility] WyxbyydBrseittsp4167-36-84 17:57:86476Fwszgcgd [facility]annChem[facility] 2013-05-05 17:57:05229Pxrgylti TouhllfCopknvumy0715-01-46 17:57:0021[facility] WqgqrlkTwuqahmal2322-48-01 17:57:59454Awkbgjtp GssiefmUslnrrrzo4438-06-79 17:57:002.6[facility] BhdwkncKdvacxzik8817-31-70 17:57:82613 MEQ/L[facility] Cpwflfaxo0075-75-28 17:57:004.3 MEQ/LMemorial OethxvlOyqhrizgx3292-05-99 17:57:000.9[facility] TrtlaqtXmtbrtoen7943-91-95 17:57:003[facility] Csmrxewqb5921-65-15 17:57:00 Test Item Value Reference Range Interpretation Comments BUN/CREAT (test code = BUN/CREAT) 3 6 [facility] XdnmfqcClejfwoqz8896-09-41 17:57:003.2[facility] HermannChem[facility] 2013-05-05 17:57:008.4[facility] AikugqjVhymjsixk7316-98-46 17:57:0018[facility] ZwbctyzDyqzthljh2178-14-03 17:57:0030[facility] NhbnondAeqzzmwoy7335-99-23 17:57:0086[facility] YszyafuVbfipxbgw5122-72-63 17:57:001.020[facility] [place] Qjxrkxhfj0326-70-85 17:57:008.0[facility] XezjowoKwcdzajxy4607-72-30 17:57:0010.0 [facility] BzutqkjImxxklhej2623-62-77 17:57:13036Fozivtcf [facility] 2013-05-05 17:57:23465Ogjdnxaq RwncbnqCopwtfqme9123-24-32 17:57:0021[facility] MqbrnfdNpuidgjlh5015-29-83 17:57:62940Tzimwbch AzsvuaoSkfdcjzpu6600-05-32 17:57:002.6[facility] IdegslwRqtenymjy7872-21-11 17:57:72076 MEQ/L[facility] Bvjzvbmcr6665-78-69 17:57:004.3 MEQ/LMemorial EbnptehSquxirzyd7107-23-27 17:57:000.9[facility] SndiisaOqiifqsok6825-01-92 17:57:003[facility] Uzlllykck0480-18-47 17:57:00 Test Item Value Reference Range Interpretation Comments BUN/CREAT (test code = BUN/CREAT) 3 10-01 [facility] YycscyjPvhfzkehc4852-70-63 17:57:003.2[facility]ann[facility] 2013-05-05 17:57:008.4[facility] BotqfdjMlkrdnued7807-78-38 17:57:0018[facility] LepagpyMbmftnvks6752-81-89 17:57:0030[facility] SjlresuDhysadfmt8341-15-58 17:57:0086[facility] NndodqvUndetyoaq7172-10-70 17:57:001.020[facility] [place] Eagdjwbij5321-67-33 17:57:008.0[facility] VtfwdtsSufxbwtacf8385-25-44 17:57:0012.2 [facility] UmijncjLetzzchqpb0830-89-90 17:57:0038.4[facility] HermannHematology 2013-05-05 17:57:43166 [facility] TajxxxgEhdtujloyy1143-48-29 17:57:0048 Memorial GcfcmjbYqutfrcsnr6404-81-68 17:57:0012.2[facility] HermannHemat[facility] 2013-05-05 17:57:0038.4[facility] CdbeomgCxifslgwqh3038-82-00 17:57:09349 K/[facility] Memorial JnwlpayQyaspfzkgr3604-56-54 17:57:0048[facility] HermannSerology 2013-05-05 17:57:00PositiveMemorial KopvcnbJgtivfbz3576-02-31 17:57:00Positive Memorial PlaptdfSzztgvqxdb2088-98-72 17:57:00YellowMemorial HermannUrinalysis 2013-05-05 17:57:00OccasionalMem[facility] HhwhnhpUnftyvrnvc5339-14-37 17:57:00Yellow Memorial ZwzdczhPypxpnuncy4251-29-94 17:57:00Occ[facility]ionalMem[facility] HermannChemistry 2012-04-24 15:54:21649Bugcsxog BjvejzeNwhgljpfp5153-39-15 15:54:90510Qgyaqiti NrfgukdErjqqtrsw5830-53-61 15:54:0038[facility] LbvuhskQbbuwqorx0542-28-01 15:54:0072Mem[facility] OwbbufvEiwhvkbev1721-90-21 15:54:58914 [facility]/L[facility] [place] Wdgbzzhqh8418-08-45 15:54:004.1 MEQ/LMemorial BoqsfrwOceesiwvm8323-95-64 15:54:001.0[facility] BaokocqFrowlehsp9791-02-25 15:54:007[facility] [place] Szcjgeqzm1867-76-41 15:54:00 Test Item Value Reference Range Interpretation Comments BUN/CREAT (test code = BUN/CREAT) 7 1 625 Memorial GxmhbyiXnublybaf9505-58-32 15:54:003.7[facility]annChem[facility] 2012-04-24 15:54:008.4[facility] TtxfjbiWuumjcqos1410-58-06 15:54:0029[facility] JfoxnfaJtapagudv3569-39-85 15:54:0039[facility] QugsgspNkttaxpiy6067-53-94 15:54:0076Memorial NxupueaXkmfqqnnp4886-25-63 15:54:004.680[facility] [place] [facility] Lpoushmfvi4914-36-33 15:54:0012.4[facility] AfftgsyRzbqbjhumi5124-65-74 15:54:00 37.6Memorial DuewwrgGjeemhqhhh1715-30-46 15:54:86877 K/CMMMemorial [place] Zdosevvewm3247-72-35 15:54:00YellowMemorial DrjwiewGyuxbfiftv5177-51-71 15:54:00 OccasionalMemorial WhusflxHhfatjrrz8783-41-56 21:40:13304Hndmnqki [place] Zpvoxqfmi2239-54-76 21:40:05014Mhfzzatn FuptowtKgrcwvcah6081-66-27 21:40:0034 Memorial CvpczwcNmpcsrafk0616-14-16 21:40:0049[facility]annChem[facility] 2011-03-14 21:40:31341 MEQ/LMemorial LeuhydvHnskokdgt6467-89-72 21:40:004.1 MEQ/LMemorial UoqcvozSpcpcgceq9508-19-14 21:40:000.9[facility]annChem[facility] 2011-03-14 21:40:006[facility] GhplknxRdfjfwlhc1399-76-81 21:40:00 Test Item Value Reference Range Interpretation Comments BUN/CREAT (test code = BUN/CREAT) 7 1 10-01 Memorial XvxdqauOljxpetlc2953-30-00 21:40:003.9[facility]annChem[facility] 2011-03-14 21:40:009.0[facility] RavkdjkNcfurpdei9352-88-36 21:40:0027[facility] WjpmvfwYcpcmoftw5718-82-78 21:40:0034Mem[facility] YshmzapQszmnzilf8231-75-58 21:40:0076Memorial IfwnhxjYnpnehpjh3530-81-80 21:40:000.524[facility] Lsgqanxhfd8822-44-12 21:40:0012.2[facility] JplziwpNcstfgouub7052-63-96 21:40:00 35.7Memorial HyqudetEcmrsmjqdc0469-80-13 21:40:01204 K/CMMMemorial Gerson Fxnacjpfoe8803-96-88 21:40:00YellowMemorial WhnadipNqwtgxihwl3269-28-77 20:30:00 11.6[facility] KapnnesOrhwiqjenc6393-10-80 20:30:0035.3[facility] HermannHematology 2010-07-21 20:30:26884 K/CMMMemorial UrpkxlgHdqoajnqot5358-16-38 20:30:0042 Memorial XerxrleJprmgcdder7282-95-34 19:49:00YellowMemorial HermannUrinalysis 2010-06-21 19:49:00OccasionalMemorial NjscgnhOevlbutba3104-67-96 17:45:67099 Memorial RlzinyyEoidxcliq3740-96-40 17:45:004.5[facility]annChemistry 2010-05-24 17:45:000.9[facility] VbysrmvJbllgleun4381-67-31 17:45:0013Memorial TtzumlxZtoyboijt0761-54-30 17:45:00 Test Item Value Reference Range Interpretation Comments BUN/CREAT (test code = BUN/CREAT) [address] [facility] PgayxxaFvzpallli3596-97-41 17:45:004.2[facility]annChem[facility] 2010-05-24 17:45:009.1[facility] ErebnshKbdqxssgj4228-30-11 17:45:0015Memorial UouwrspAezxlxgnh3114-82-11 17:45:0012Memorial HqbvtfcKtaqnqrsi6896-29-01 17:45:0067[facility]orial RtnshxcCfbsjbgif3740-82-24 17:45:000.680[facility] [place] Reulrlwrncb7112-33-27 17:45:00 Test Item Value Reference Range Interpretation Comments PT PATIENT (test code = PT PATIENT) 13.6 s 12.0-14.[address] [facility] YebogjcPmnblpkpjpf2932-58-07 17:45:00 Test Item Value Reference Range Interpretation Comments INR (test code = INR) 1.02 1 0.85-1.[address] [facility] KlnufefVsnlujknil8665-22-98 17:45:0012.7[facility]annHematology 2010-05-24 17:45:0038.1[facility] JzfarrtBhtszmufmk5073-20-07 17:45:88512 K/CMM [facility] XbplzmrSqhhyctwml9524-26-28 17:45:00YellowMemorial HermannCT LUMBAR WO CLINICAL INDICATION: M51.36 Other intervertebral disc degeneration, lumbar regionMODALITY: Siemens UpDroid CT (Iterative dose reduction techniques are utilized.)TECHNIQUE: [...]
[2021-08-17 00:38] LABS: Absolute Lymphocytes (CBC) 2.3 K/uL (0.7-4.9); Hematocrit 33.8 % (36.0-45.0); Lymphocytes % 27.6 % (15.3-44.8); MPV 8.7 fL (7.6-11.3); RBC Red Blood Cell Count 4.33 M/uL (3.86-4.86)
[2021-08-17 00:47] LABS: Protime INR 1.19
[2021-08-17 00:51] LABS: Potassium 3.2 mmol/L (3.5-5.1)
[2021-08-17 01:30] LABS: Urine Blood Negative (Negative); Urine Glucose Negative (Negative); Urine Protein Negative (Negative); Urine pH 6.5 (5.0-7.0)
[2021-08-17 02:04] LABS: Calcium Oxalate Crystals- Ur FEW (NONE SEEN); Urine Bacteria <20 /HPF (<20); Urine RBC <5 /HPF (NONE SEEN)
--- NOTE | 2021-08-17 02:16 | EDPHYS ---
Physician Documentation [facility] Name: Emma Rico Age: 71 yrs Sex: Female : 1950 Arrival Date: 08/16/2021 Time: 23:06 Bed 8 Private MD: ED Physician Kin Hdz HPI: 08/17 00:43 This 71 yrs old Female presents to ER via Wheelchair with complaints of Weakness, rn confusion. 00:43 The patient presents to the emergency department with weakness of the right upper rn extremity, right lower extremity. Onset: The symptoms/episode began/occurred 1 week(s) ago. Associated signs and symptoms: Pertinent positives: headache, Pertinent negatives: altered mental status, fever, neck stiffness, syncope, loss of vision. Severity of symptoms: At their worst the symptoms were moderate in the emergency department the symptoms are unchanged. The patient has not experienced similar symptoms in the past. The patient has not recently seen a physician. Family reports right sided weakness, dropping thing in right hand, difficulty walking due to right leg weakness, and episodes of confusion. + headache. No head injury. no fever. NO new medication. No chest pain/sob/abd pain/vomiting/diarrhea. . Historical: - Allergies: 08/16 23:28 Sulfa (Sulfonamide Antibiotics); lp1 23:28 Morphine; lp1 23:28 Codeine; lp1 - Home Meds: 23:28 acetazolamide 250 mg Oral tab 1 tab once daily [Active]; Clotrimazole-Betamethasone lp1 Topical [Active]; Decara 50,000 unit Oral cap [Active]; desvenlafaxine succinate 100 mg Oral Tb24 1 tab once daily [Active]; famotidine 20 mg Oral tab 1 tab every 12 hours [Active]; fentanyl in pain pump [Active]; Furosemide Oral [Active]; Lasix 20 mg Oral tab [Active]; levothyroxine 112 mcg tab 1 tab [Active]; losartan 100 mg Oral tab 1 tab once daily [Active]; memantine Oral [Active]; mirtazapine 15 mg Oral TbDi 1 tab once daily [Active]; olmesartan Oral [Active]; pramipexole Oral [Active]; pramipexole 0.5 mg Oral tab [Active]; pregabalin Oral [Active]; quetiapine 150 mg Oral Tb24 1 tab once daily [Active]; rosuvastatin 5 mg Oral cpSP 1 cap [Active]; spironolactone 50 mg Oral tab 1 tab 2 times per day [Active]; - PMHx: 23:28 Chronic pain; Dementia; Depression; Hypertension; Hypothyroidism; lp1 - PSHx: 23:28 back; hysterectomy; Left hip; pain pump placed; Right hip; lp1 - Immunization history:: Adult Immunizations up to date, Client reports receiving the 1st dose of the Covid vaccine. - Family history:: not pertinent. - Social history:: Smoking status: Patient denies any tobacco usage or history of. - Hospitalizations: : No recent hospitalization is reported. ROS: 08/17 00:43 Constitutional: Negative for fever, chills, and weight loss, Eyes: Negative for injury, rn pain, redness, and discharge, Neck: Negative for injury, pain, and swelling, Cardiovascular: Negative for chest pain, palpitations, and edema, Respiratory: Negative for shortness of breath, cough, wheezing, and pleuritic chest pain, Abdomen/GI: Negative for abdominal pain, nausea, vomiting, diarrhea, and constipation, Back: Negative for injury and pain, MS/Extremity: Negative for injury and deformity, Skin: Negative for injury, rash, and discoloration, Neuro: + headache, + right sided weakness. Exam: 00:43 Constitutional: This is a well developed, well nourished patient who is awake, alert, rn and in no acute distress. Head/Face: Normocephalic, atraumatic. Eyes: Periorbital areas with no swelling, redness, or edema. Cardiovascular: Regular rate and rhythm. No pulse deficits. Respiratory: Speaking full sentences, joking. No increased work of breathing, no retractions or nasal flaring. Abdomen/GI: Soft, non-tender Skin: Warm, dry MS/ Extremity: Pulses equal, no cyanosis. Neuro: Awake and alert, GCS 15, oriented to person, place, and situation. Cranial nerves II-XII grossly intact. Motor strength 4/5 in all extremities. Subjective weakness RUE/RLE but no drift. Sensory grossly intact. Vital Signs: 08/16 23:34 BP 150 / 111; Pulse 61; Resp 20; Temp 99(O); Pulse Ox 95% on R/A; lp1 08/17 01:16 BP 135 / 73; Pulse 60; Resp 10; Pulse Ox 95% on R/A; ll3 02:15 BP 121 / 63; Pulse 59; Resp 14; Pulse Ox 92% on R/A; al4 03:12 BP 124 / 69; Pulse 54; Resp 10; Pulse Ox 95% ; ll3 03:30 BP 133 / 71; Pulse 52; Resp 10 S; Pulse Ox 92% on R/A; al4 NIH Stroke Scale Scores: 08/16 23:50 NIHSS Score: 0 al4 [place] Coma Score: 23:50 Eye Response: spontaneous(4). Verbal Response: oriented(5). Motor Response: obeys al4 commands(6). Total: 15. 08/17 01:16 Eye Response: spontaneous(4). Verbal Response: oriented(5). Motor Response: obeys ll3 commands(6). Total: 15. 03:12 Eye Response: spontaneous(4). Verbal Response: oriented(5). Motor Response: obeys ll3 commands(6). Total: 15. MDM: 08/16 23:25 Patient medically screened. rn 08/17 02:14 Data reviewed: vital signs, nurses notes, lab test result(s), EKG, radiologic studies, rn CT scan, and as a result, I will admit patient. Counseling: I had a detailed discussion with the patient and/or guardian regarding: the historical points, exam findings, and any diagnostic results supporting the discharge/admit diagnosis, lab results, radiology results, the need for further work-up and treatment in the hospital. Response to treatment: There is no appreciated change of the patient's symptoms at this time, and as a result, I will admit patient. Admission orders: after a detailed discussion of the patient's condition and case, the admit orders are written by me. ED course: NO clear etiology for symptoms found, will admit to Dr. Cabello for further evaluation and care. . 08/16 23:25 Order name: Basic Metabolic Panel; Complete Time: : rn 08/16 23:25 Order name: CBC with Diff; Complete Time: rn 08/16 23:25 Order name: Protime (+inr); Complete Time: rn 08/16 23:25 Order name: Ptt, Activated; Complete Time: :52 rn 08/16 23:40 Order name: Urine Microscopic Only; Complete Time: 02:23 rn 08/16 23:41 Order name: Blood Culture Adult (2) rn 08/16 23:25 Order name: CT Stroke Brain w/o Contrast rn 08/16 23:41 Order name: Procalcitonin; Complete Time: 01:52 08/17 01:15 Order name: Glucose, Ancillary Testing; Complete Time: 01:52 EDNJ 08/17 01:30 Order name: Urine Dipstick-Ancillary; Complete Time: 01:52 EDNJ 08/17 01:38 Order name: CREATININE WHOLE BLOOD; Complete Time: 01:52 EDNJ 08/17 01:40 Order name: CREATININE WHOLE BLOOD [facility] 08/17 02:07 Order name: Urine Culture [facility] 08/17 02:23 Order name: SARS-COV-2 RT PCR (Document "Date of Onset" if Symptomatic) rn 08/16 23:26 Order name: Stroke CXR 1 View rn 08/16 23:26 Order name: EKG; Complete Time: 23:26 rn 08/16 23:26 Order name: Accucheck; Complete Time: 01:07 rn 08/16 23:26 Order name: Cardiac monitoring; Complete Time: 00:44 rn 08/16 23:26 Order name: EKG - Nurse/Tech; Complete Time: 01:24 rn 08/16 23:26 Order name: IV Saline Lock; Complete Time: 00:44 rn 08/16 23:26 Order name: Labs collected and sent; Complete Time: 00:44 rn 08/16 23:26 Order name: NPO; Complete Time: 01:07 rn 08/16 23:26 Order name: O2 Per Protocol; Complete Time: 00:43 rn 08/16 23:26 Order name: O2 Sat Monitoring; Complete Time: 00:43 rn 08/16 23:26 Order name: Stroke Swallow Screen; Complete Time: 01:47 rn 08/16 23:40 Order name: CT Head Angio rn 08/16 23:40 Order name: CT Neck Angio rn 08/16 23:40 Order name: Urine Dipstick-Ancillary (obtain specimen); Complete Time: 01:35 rn Administered Medications: 02:24 Drug: Aspirin 325 mg Route: PO; al4 03:30 Follow up: Response: No adverse reaction al4 Point of Care Testing: Blood Glucose: 01:07 Blood Glucose: 73 mg/dL; al4 Ranges: Critical Glucose Levels:Adult <50 mg/dl or >400 mg/dl <40 mg/dl or >180 mg/dl Disposition Summary: 08/17/21 02:16 Hospitalization Ordered Hospitalization Status: Observation rn Provider: Robbin Cabello rn Location: Telemetry/MedSurg (observation) rn Condition: Stable rn Problem: an ongoing problem rn Symptoms: are unchanged rn Bed/Room Type: Standard rn Room Assignment: 230(08/17/21 02:35) mw Diagnosis - Weakness rn - Altered mental status, unspecified rn - Hypokalemia rn Forms: - Medication Reconciliation Form rn - SBAR form rn NIH Stroke Scale - NIH Stroke Score Date: 08/16/2021 Time: 23:50 Total Score = 0 1a. Level of Consciousness (LOC) - 0(Alert) 1b. Level of Consciousness (LOC) (Month \\T\\ Age) - 0(Both) 1c. LOC Commands (Open \\T\\ Closes Eyes/Floor Surfacer) - 0(Both) 2. Best Gaze (Lateral Gaze Paresis) - 0(Normal) 3. Visual Field Loss - 0(No visual loss) 4. Facial Palsy - 0(Normal) 5a. Left Arm: Motor (10-second hold) - 0(No drift) 5b. Right Arm: Motor (10-second hold) - 0(No drift) 6a. Left Leg: Motor (5-second hold - always test supine) - 0(No drift) 6b. Right Leg: Motor (5-second hold - always test supine) - 0(No drift) 7. Limb Ataxia (finger/nose \\T\\ heel/[place] - test with eyes open) - 0(Absent) 8. Sensory Loss (pinprick arms/legs/face) - 0(Normal) 9. Best Language: Aphasia (description/naming/reading) - 0(No aphasia) 10. Dysarthria (speech clarity - read or repeat words) - 0(Normal) 11. Extinction and Inattention (visual/tactile/auditory/spatial/personal) - 0(No abnormality) Initials: al4 Signatures: Dispatcher [employer] EDMS Emily Kowalski RN RN mw Nieto, Roman, MD MD rn Pena, Laura, RN RN lp1 Braeden Mayen Corrections: (The following items were deleted from the chart) 08/16 23:31 23:28 Home Meds: Decara Oral; lp1 lp1 23:28 Home Meds: levothyroxine oral; lp1 lp1 : 23:28 Home Meds: losartan Oral; lp1 lp1 08/17 02:35 02:16 valarie pagan
--- NOTE | 2021-08-17 02:16 | ER ---
Nurse's Notes [facility] Name: Emma Rico Age: 71 yrs Sex: Female : 1950 Arrival Date: 08/16/2021 Time: 23:06 Bed 8 Private MD: Diagnosis: Weakness;Altered mental status, unspecified;Hypokalemia Presentation: 08/16 23:25 Chief complaint: Patient states: Reports over the past 1.5 week, she has been dropping lp1 things out of her right hand, feels right leg twitching; Granddaughter reports patient has been becoming forgetful, reports episode where she was actively texting granddaughter and suddenly could not remember how to text back; Patient reports having a headache all day today. Coronavirus screen: At this time, the client does not indicate any symptoms associated with coronavirus-19. Ebola Screen: No symptoms or risks identified at this time. Initial Sepsis Screen: Does the patient meet any 2 criteria?. Risk Assessment: Do you want to hurt yourself or someone else? Patient reports no desire to harm self or others. Onset of symptoms was August 16, 2021. 23:25 Method Of Arrival: Wheelchair lp1 23:25 Acuity: LENNY 3 lp1 23:34 Initial Sepsis Screen: Does the patient have a suspected source of infection? No. lp1 Patient's initial sepsis screen is negative. 23:50 An acute neurological deficit is present. The patient has been moved to a treatment al4 area. Pre-hospital glucose is not applicable to this patient. Triage Assessment: 23:50 The onset of the patients symptoms was more than six hours ago. al4 Stroke Activation: Physician: Stroke Attending; Name: ; Notified At: ; Arrived At: Physician: Chief Stroke Resident; Name: ; Notified At: ; Arrived At: Physician: Stroke Resident; Name: ; Notified At: ; Arrived At: Physician: ED Attending; Name: ; Notified At: ; Arrived At: Physician: ED Resident; Name: ; Notified At: ; Arrived At: 23:50 stroke alert not called per MD and data center consultant. patients s/s greater than 1 week al4 Historical: - Allergies: 23:28 Sulfa (Sulfonamide Antibiotics); lp1 23:28 Morphine; lp1 23:28 Codeine; lp1 - Home Meds: 23:28 acetazolamide 250 mg Oral tab 1 tab once daily [Active]; Clotrimazole-Betamethasone lp1 Topical [Active]; Decara 50,000 unit Oral cap [Active]; desvenlafaxine succinate 100 mg Oral Tb24 1 tab once daily [Active]; famotidine 20 mg Oral tab 1 tab every 12 hours [Active]; fentanyl in pain pump [Active]; Furosemide Oral [Active]; Lasix 20 mg Oral tab [Active]; levothyroxine 112 mcg tab 1 tab [Active]; losartan 100 mg Oral tab 1 tab once daily [Active]; memantine Oral [Active]; mirtazapine 15 mg Oral TbDi 1 tab once daily [Active]; olmesartan Oral [Active]; pramipexole Oral [Active]; pramipexole 0.5 mg Oral tab [Active]; pregabalin Oral [Active]; quetiapine 150 mg Oral Tb24 1 tab once daily [Active]; rosuvastatin 5 mg Oral cpSP 1 cap [Active]; spironolactone 50 mg Oral tab 1 tab 2 times per day [Active]; - PMHx: 23:28 Chronic pain; Dementia; Depression; Hypertension; Hypothyroidism; lp1 - PSHx: 23:28 back; hysterectomy; Left hip; pain pump placed; Right hip; lp1 - Immunization history:: Adult Immunizations up to date, Client reports receiving the 1st dose of the Covid vaccine. - Family history:: not pertinent. - Social history:: Smoking status: Patient denies any tobacco usage or history of. - Hospitalizations: : No recent hospitalization is reported. Screenin:50 Abuse screen: Denies threats or abuse. Nutritional screening: No deficits noted. al4 Tuberculosis screening: No symptoms or risk factors identified. Fall Risk No fall in past 12 months (0 pts). IV access (20 points). Ambulatory Aid- Crutches/Cane/Walker (15 pts). Gait- Weak (10 pts.). Mental Status- Oriented to own ability (0 pts). Total [place] Fall Scale indicates High Risk Score (45 or more points). Fall prevention measures have been instituted. Side Rails Up X 2 Frequent Obs/Assessments Occuring Family Present and informed to notify staff if the need to leave the bedside. Assessment: 23:50 General: Appears in no apparent distress. comfortable, Behavior is calm, cooperative, al4 patient states she came in today for weakness, "dropping things", intermittent dizziness, and intermittent forgetful episodes x 1 week. Pain: Complains of pain in head. Neuro: Level of Consciousness is awake, alert, obeys commands, Oriented to person, place, time, situation, Freight Hustler are equal bilaterally Speech is normal, Facial symmetry appears normal, Reports dizziness, "sometimes" weakness. Cardiovascular: Capillary refill < 3 seconds Patient's skin is warm and dry. Pulses are all present. Rhythm is regular. Respiratory: Airway is patent Respiratory effort is even, unlabored, Respiratory pattern is regular, symmetrical. GI: No signs and/or symptoms were reported involving the gastrointestinal system. : No signs and/or symptoms were reported regarding the genitourinary system. EENT: No signs and/or symptoms were reported regarding the EENT system. Derm: Skin is intact, Skin is dry, Skin is normal, Skin temperature is warm. Musculoskeletal: Circulation, motion, and sensation intact. 23:50 VAN Scoring: Arm Drift: Patients demonstrates NO arm weakness. Patient is VAN Negative. al4 T-PA (Activase) Screening: Contraindications: Patient reports onset of signs and symptoms of stroke greater than 6 hours ago: Yes. 08/17 01:40 Reassessment: Patient appears in no apparent distress at this time. patient is alert al4 and oriented. patient is in no apparent distress. granddaughter at bedside. . 01:42 The patient has not been NPO before screening. The patient is alert, and able to follow al4 commands. The patient does not exhibit slurred or garbled speech. The patient is not exhibiting difficulty speaking. The patient does not exhibit difficulty understanding words. The patient is able to swallow own secretions with no drooling or need for suction. Patient tolerated one teaspoon of water. No drooling, immediate coughing, gurgling, or clearing of the throat was noted. The patient tolerated 90mL of water. No drooling, immediate coughing, gurgling, or clearing of the throat was noted. The patient passed the bedside swallow screening. Oral medications may be given as ordered. Contact Physician for further diet orders. Provider notified of bedside swallow screening results: Kin Hdz MD. 02:24 Reassessment: patient is awake and alert. patient is in no apparent distress at this al4 time. . 04:00 Reassessment: Patient appears in no apparent distress at this time. patient awake and al4 alert. patients granddaughter at bedside. . Vital Signs: 08/16 23:34 BP 150 / 111; Pulse 61; Resp 20; Temp 99(O); Pulse Ox 95% on R/A; lp1 08/17 01:16 BP 135 / 73; Pulse 60; Resp 10; Pulse Ox 95% on R/A; ll3 02:15 BP 121 / 63; Pulse 59; Resp 14; Pulse Ox 92% on R/A; al4 03:12 BP 124 / 69; Pulse 54; Resp 10; Pulse Ox 95% ; ll3 03:30 BP 133 / 71; Pulse 52; Resp 10 S; Pulse Ox 92% on R/A; al4 [place] Coma Score: 08/16 23:50 Eye Response: spontaneous(4). Verbal Response: oriented(5). Motor Response: obeys al4 commands(6). Total: 15. 08/17 01:16 Eye Response: spontaneous(4). Verbal Response: oriented(5). Motor Response: obeys ll3 commands(6). Total: 15. 03:12 Eye Response: spontaneous(4). Verbal Response: oriented(5). Motor Response: obeys ll3 commands(6). Total: 15. NIH Stroke Scale Scores: 08/16 23:50 NIHSS Score: 0 al4 ED Course: 23:06 Patient arrived in ED. bp1 23:23 Arm band placed on right wrist. lp1 23:25 Kin Hdz MD is Attending Physician. rn 23:28 Triage completed. lp1 23:50 Patient has correct armband on for positive identification. Placed in gown. Bed in low al4 position. Call light in reach. Side rails up X2. 23:50 seed mill superintendent on. Pulse ox on. NIBP on. al4 23:50 Accessed peripheral vein via ultrasound, utilizing dynamic ultrasound technique using bb Powerglide midline 18g, 10cm to right upper arm using aseptic technique per protocol with good blood return and flushes easily pt tolerated well.. 23:52 Stroke CXR 1 View In Process Unspecified. EDMS 08/17 00:05 Second set of blood cultures drawn by me. bb 00:23 CT Stroke Brain w/o Contrast In Process Unspecified. EDMS 00:29 CT Head Angio In Process Unspecified. EDMS 00:29 CT Neck Angio In Process Unspecified. EDMS 01:11 Braeden Mayen is Primary Nurse. al4 01:35 Urine Microscopic Only Sent. al4 02:15 Robbin Cabello MD is Hospitalizing Provider. rn 02:28 SARS-COV-2 RT PCR (Document "Date of Onset" if Symptomatic) Sent. al4 03:46 No provider procedures requiring assistance completed. Patient admitted, IV remains in al4 place. Administered Medications: 02:24 Drug: Aspirin 325 mg Route: PO; al4 03:30 Follow up: Response: No adverse reaction al4 Point of Care Testing: Blood Glucose: 01:07 Blood Glucose: 73 mg/dL; al4 Ranges: Outcome: 02:16 Decision to Hospitalize by Provider. rn 03:46 Admitted to Report called to DAVID Miller al4 03:46 Condition: stable 03:46 Discharge instructions given to patient, family, Instructed on the need for admit, Demonstrated understanding of instructions. 04:23 Patient left the ED. al4 NIH Stroke Scale - NIH Stroke Score Date: 08/16/2021 Time: 23:50 Total Score = 0 1a. Level of Consciousness (LOC) - 0(Alert) 1b. Level of Consciousness (LOC) (Month \\T\\ Age) - 0(Both) 1c. LOC Commands (Open \\T\\ Closes Eyes/Environmental Health And Safety Manager) - 0(Both) 2. Best Gaze (Lateral Gaze Paresis) - 0(Normal) 3. Visual Field Loss - 0(No visual loss) 4. Facial Palsy - 0(Normal) 5a. Left Arm: Motor (10-second hold) - 0(No drift) 5b. Right Arm: Motor (10-second hold) - 0(No drift) 6a. Left Leg: Motor (5-second hold - always test supine) - 0(No drift) 6b. Right Leg: Motor (5-second hold - always test supine) - 0(No drift) 7. Limb Ataxia (finger/nose \\T\\ heel/[place] - test with eyes open) - 0(Absent) 8. Sensory Loss (pinprick arms/legs/face) - 0(Normal) 9. Best Language: Aphasia (description/naming/reading) - 0(No aphasia) 10. Dysarthria (speech clarity - read or repeat words) - 0(Normal) 11. Extinction and Inattention (visual/tactile/auditory/spatial/personal) - 0(No abnormality) Initials: al4 Signatures: Dispatcher [employer] EDMS Shelli Lowe RN RN Kin Lopez MD MD rn Pena, Laura, RN RN lp1 Kiana Rouse Lynsea, RN RN ll3 Braeden Mayen al4 Corrections: (The following items were deleted from the chart) 08/16 23:31 23:28 Home Meds: Decara Oral; lp1 lp1 23:31 23:28 Home Meds: levothyroxine oral; lp1 lp1 23:31 23:28 Home Meds: losartan Oral; lp1 lp1 23:32 23:25 Chief complaint: Patient states: Reports over the past 1.5 week, she has lp1 been dropping things out of her right hand, feels right leg twitching; Granddaughter reports patient has been becoming forgetful, reports episode where she was actively texting granddaughter and suddenly would not remember how to text back lp1 23:37 23:25 Chief complaint: Patient states: Reports over the past 1.5 week, she has lp1 been dropping things out of her right hand, feels right leg twitching; Granddaughter reports patient has been becoming forgetful, reports episode where she was actively texting granddaughter and suddenly would not remember how to text back; Patient reports having a headache all day today lp1 08/17 00:58 08/16 23:50 General: Appears in no apparent distress. comfortable, Behavior is al4 calm, cooperative, al4 08/17 01:07 08/16 23:50 Pain: Denies pain. al4 al4 08/17 02:16 02:15 BP 121 / 63; Pulse 59bpm; Resp 14bpm; Pulse Ox 92%; al4 al4 02:50 02:24 Reassessment: Patient appears in no apparent distress at this time. al4 patient is awake and alert. patient is in no apparent distress at this time. . al4 03:35 08/16 23:50 General: Appears in no apparent distress. comfortable, Behavior is al4 calm, cooperative, patient states she came in today for weakness, "dropping things", and intermittent dizziness x 1 week. al4 08/17 03:47 03:46 Admitted to Med/surg room 230, al4 al4
[2021-08-17] MEDS ORDERED: ASPIRIN 325 MG TAB ONE (02:27)
[2021-08-17 04:52] VITALS: BMI 39.4
[2021-08-17] MEDS: ACETAMINOPHEN 500 MG TAB PO PRN ×2 (05:16→16:25)
--- NOTE | 2021-08-17 07:30 | EKG ---
Test Date: 2021-08-17 Test Time: 01:11:49 Packing Floor Worker: BRIAN MEASUREMENT RESULTS: Intervals: Rate: 58 GA: 176 QRSD: 88 QT: 418 QTc: 410 [place]: P: 58 GA: 176 QRS: -80 T: 46 INTERPRETIVE STATEMENTS: Sinus bradycardia Left axis deviation Possible Anterior infarct, age undetermined Abnormal ECG Compared to ECG 07/06/2021 07:14:01 Left-axis deviation now present Sinus rhythm no longer present Sinus arrhythmia no longer present Myocardial infarct finding still present Electronically Signed On 08-17-21 07:29:43 CDT by Mihir Ortiz
[2021-08-17] MEDS ORDERED: LEVOTHYROXINE SOD 0.112 MG TAB PO SCH (08:00)
[2021-08-17 08:57] LABS: Albumin 2.9 g/dL (3.4-5.0); Bilirubin Total 0.2 mg/dL (0.2-1.0); Ferritin 27.1 ng/mL (8-388); Magnesium 2.3 mg/dL (1.8-2.4); Potassium 3.3 mmol/L (3.5-5.1); Protein, Total 6.8 g/dL (6.4-8.2); Thyroid Stimulating Hormone 0.536 uIU/mL (0.360-3.740)
[2021-08-17] MEDS ORDERED: acetaZOLAMIDE 250 MG TAB PO SCH (09:00)
[2021-08-17] MEDS ORDERED: FAMOTIDINE 20 MG TAB PO SCH (09:00)
[2021-08-17] MEDS: HOME MED 1 EA UNK (Memantine Hcl [Memantine Hcl] 5 MG Tablet) PO SCH (09:00)
[2021-08-17] MEDS ORDERED: DESVENLAFAXINE SUCCINATE 50 MG ER TAB PO SCH (09:00)
[2021-08-17] MEDS ORDERED: PREGABALIN 225 MG PO SCH (09:00)
[2021-08-17] MEDS ORDERED: SPIRONOLACTONE 25 MG TABLET PO SCH (09:00)
[2021-08-17] MEDS: MULTIVITAMIN TAB PO SCH (10:00)
--- NOTE | 2021-08-17 10:08 | RAD REPORT ---
EXAM DESCRIPTION: RAD - C Spine Ap/Lat - 08/17/2021 8:53 am CLINICAL HISTORY: neck pain Neck pain, radiculopathy. COMPARISON: Neck Angio dated 08/17/2021 FINDINGS: Cervical bodies are normal in height and alignment.No fracture or acute bony process seen. Disc thinning with posterior osteophyte formation is seen mid and lower cervical levels. No prevertebral soft tissue thickening or other suspicious soft tissue finding. The odontoid is normal and the lateral masses are symmetric. IMPRESSION: Moderate mid and lower cervical spondylosis.
--- NOTE | 2021-08-17 12:59 | RAD REPORT ---
EXAM DESCRIPTION: Chest Single View 08/17/2021 12:22 AM CDT CLINICAL HISTORY: 71 years, Female, right sided weakness COMPARISON: 12/16/2020 FINDINGS: Single view of the chest was obtained portable. Prior films were compared. The lung volume is decreased. The heart is enlarged. The thoracic aorta is unremarkable. Minimal linear densities lung bases suggest probable atelectasis. No significant pleural effusions. The rest of the soft tis sebastián and bony structures demonstrate to be unremarkable. IMPRESSION: Minimal linear densities lung bases suggest probable atelectasis. Electronically signed by: Zain Mcclendon MD 08/17/2021 12:23 AM CDT Due to temporary technical issues with the PACS/Fluency reporting system, reports are being signed by the in house radiologist without review as a courtesy to ensure prompt reporting. The interpreting r adiologist is fully responsible for the content of the report
--- NOTE | 2021-08-17 13:10 | EKG ---
Test Date: 2021-08-17 Test Time: 08:32:47 Medical Legal Investigator: QUENTIN MEASUREMENT RESULTS: Intervals: Rate: 57 TN: 182 QRSD: 100 QT: 424 QTc: 412 [place]: P: 46 TN: 182 QRS: -77 T: 15 INTERPRETIVE STATEMENTS: Sinus bradycardia Left anterior fascicular block Possible Anterior infarct, age undetermined Abnormal ECG Compared to ECG 08/17/2021 01:11:49 Left anterior fascicular block now present Left-axis deviation no longer present Myocardial infarct finding still present Electronically Signed On 08-17-21 13:09:48 CDT by Mihir Ortiz
--- NOTE | 2021-08-17 13:12 | RAD REPORT ---
EXAM DESCRIPTION: ADDENDUM #1 THIS REPORT CONTAINS FINDINGS THAT MAY BE CRITICAL TO PATIENT CARE: Called, telephoned, verbal rep ort was given oral to Dr. Kin Hdz at 12:40 AM CDT on 08/17/2021. Electronically signed by: Zain Mcclendon MD 08/17/2021 2:31 AM CDT End of Addendum EXAM DESCRIPTION: Ct Stroke Brain Wo Cont 08/17/2021 12:32 AM CDT CLINICAL HISTORY: 71 years, Female, Neuro deficit, acute, stroke suspected COMPARISON: None FINDINGS: Multiple transaxial tomograms of the brain were obtained from the base of the skull to the vertex without contrast. 2-D multiplanar reformats and the coronal and sagittal plane were performed and reviewed. This exam was performed according to our departmental dose-optimization protocol, which includes auto mated exposure control, adjustment of the mA and/or kV according to patient size and/or use of iterat renaldo reconstruction technique. Brain parenchyma as well as the canela and white matter differentiation demonstrate to be unremarkable. There is no midline shift and/or mass effect. There is no evidence for acute hemorrhage. No focal ar eas of hypodensities that would suggest acute infarction. No focal areas of hypodensities within the posterior circulation and/or middle cerebral arteries. Lateral ventricles and cisterns displace nor mal appearance. No intra or extra axial fluid collections were seen. The calvarium is intact with n o evidence for fracture. The visualized portions of the paranasal sinuses and orbits demonstrate to b e clear. IMPRESSION: NO ACUTE INTRACRANIAL HEMORRHAGE. UNREMARKABLE CT SCAN OF THE HEAD WITHOUT CONTRAST. Electronically signed by: Zain Mcclendon MD 08/17/2021 12:35 AM CDT Due to temporary technical issues with the PACS/Fluency reporting system, reports are being signed by the in house radiologist without review as a courtesy to ensure prompt reporting. The interpreting r adiologist is fully responsible for the content of the report.
--- NOTE | 2021-08-17 13:13 | RAD REPORT ---
EXAM DESCRIPTION: Head angio (accession [id number]), Neck Angio (accession [id number]) 08/18/19 12:55 AM CDT CLINICAL HISTORY: 71 years, Female, Neuro deficit, acute, stroke suspected COMPARISON: Recent CT scan of the head without contrast. TECHNIQUE: Multiple transaxial tomograms from the aortic arch through the brain were performed after administration of large bolus of IV contrast for complete opacification of the carotid arteries and intracranial vessels. Subsequent 2-D and 3-D multiplanar reformats, volume rendering technique and maximum intensity projec tion images were generated and reviewed. Stenosis measurements were performed according to NASCET cri teria. This exam was performed according to our departmental dose-optimization protocol, which includes auto mated exposure control, adjustment of the mA and/or kV according to patient size and/or use of iterat renaldo reconstruction technique. FINDINGS: Ascending aorta: There is a suboptimal evaluation of the aortic arch is taking off from the great vessels. There are codominant vertebral arteries which demonstrate normal opacification. No great vessel origin stenosis is identified. Incidentally is noted of medial traveling of the com mon carotid arteries and the prevertebral space Right carotid artery: Normal opacification is demonstrated within the right common carotid artery a nd at the carotid bifurcation. Right carotid bulb, proximal, mid and distal portions of the right int ernal carotid artery demonstrate to be patent. There is no evidence for significant stenosis and/or o cclusion. Left carotid artery: Normal opacification is demonstrated within the left common carotid artery an d at the carotid bifurcation. Left carotid bulb, proximal, mid and distal portions of the left sports marketing internship al carotid artery demonstrate to be patent. There is no evidence for significant stenosis and/or occl usion. Intracranial circulation: Intracranial portions of the internal carotid arteries the cavernous sinus portions demonstrates minimal peripheral calcifications. There is normal opacification within the ant erior circulation without evidence of intracranial aneurysm. The anterior cerebral arteries, middle cerebral arteries and its branches demonstrate normal opacification with no evidence for significant stenosis aneurysm and/or occlusion. There is normal venous drainage with no evidence for significant sinus vein thrombosis. Vertebrobasilar system: The posterior circulation demonstrate codominant bilateral vertebral arteries with no evidence for significant stenosis and/or evidence for significant dissection. The vertebroba silar system and [employer]ES demonstrate to be normal with no evidence for aneurysm and/or occlusion. Grossly the brain parenchyma demonstrate normal canela-white matter differentiation with no evidence fo r mass effect and/or midline shift. There is no evidence for significant abnormal enhancement. The skull base and intracranial structures demonstrate to be within normal limits. Lung apex: No gross abnormalities are noted within the apices. IMPRESSION: No evidence for significant stenosis and/or occlusion involving the major intracranial a rterial vasculature. No evidence for significant stenosis and/or occlusion involving the carotid or vertebral arteries. Medial traveling of the common carotid arteries and the prevertebral space. Electronically signed by: Zain Mcclendon MD 08/17/2021 1:02 AM CDT Due to temporary technical issues with the PACS/Fluency reporting system, reports are being signed by the in house radiologist without review as a courtesy to ensure prompt reporting. The interpreting r adiologist is fully responsible for the content of the report
--- NOTE | 2021-08-17 13:26 | RAD REPORT ---
EXAM DESCRIPTION: Head angio (accession [id number]), Neck Angio (accession [id number]) 08/18/19 12:55 AM CDT CLINICAL HISTORY: 71 years, Female, Neuro deficit, acute, stroke suspected COMPARISON: Recent CT scan of the head without contrast. TECHNIQUE: Multiple transaxial tomograms from the aortic arch through the brain were performed after administration of large bolus of IV contrast for complete opacification of the carotid arteries and intracranial vessels. Subsequent 2-D and 3-D multiplanar reformats, volume rendering technique and maximum intensity projec tion images were generated and reviewed. Stenosis measurements were performed according to NASCET cri teria. This exam was performed according to our departmental dose-optimization protocol, which includes auto mated exposure control, adjustment of the mA and/or kV according to patient size and/or use of iterat renaldo reconstruction technique. FINDINGS: Ascending aorta: There is a suboptimal evaluation of the aortic arch is taking off from the great vessels. There are codominant vertebral arteries which demonstrate normal opacification. No great vessel origin stenosis is identified. Incidentally is noted of medial traveling of the com mon carotid arteries and the prevertebral space Right carotid artery: Normal opacification is demonstrated within the right common carotid artery a nd at the carotid bifurcation. Right carotid bulb, proximal, mid and distal portions of the right int ernal carotid artery demonstrate to be patent. There is no evidence for significant stenosis and/or o cclusion. Left carotid artery: Normal opacification is demonstrated within the left common carotid artery an d at the carotid bifurcation. Left carotid bulb, proximal, mid and distal portions of the left pr internship al carotid artery demonstrate to be patent. There is no evidence for significant stenosis and/or occl usion. Intracranial circulation: Intracranial portions of the internal carotid arteries the cavernous sinus portions demonstrates minimal peripheral calcifications. There is normal opacification within the ant erior circulation without evidence of intracranial aneurysm. The anterior cerebral arteries, middle cerebral arteries and its branches demonstrate normal opacification with no evidence for significant stenosis aneurysm and/or occlusion. There is normal venous drainage with no evidence for significant sinus vein thrombosis. Vertebrobasilar system: The posterior circulation demonstrate codominant bilateral vertebral arteries with no evidence for significant stenosis and/or evidence for significant dissection. The vertebroba silar system and C[employer]US MON[employer]OR demonstrate to be normal with no evidence for aneurysm and/or occlusion. Grossly the brain parenchyma demonstrate normal canela-white matter differentiation with no evidence fo r mass effect and/or midline shift. There is no evidence for significant abnormal enhancement. The skull base and intracranial structures demonstrate to be within normal limits. Lung apex: No gross abnormalities are noted within the apices. IMPRESSION: No evidence for significant stenosis and/or occlusion involving the major intracranial a rterial vasculature. No evidence for significant stenosis and/or occlusion involving the carotid or vertebral arteries. Medial traveling of the common carotid arteries and the prevertebral space. Electronically signed by: Zain Mcclendon MD 08/17/2021 1:02 AM CDT Due to temporary technical issues with the PACS/Fluency reporting system, reports are being signed by the in house radiologist without review as a courtesy to ensure prompt reporting. The interpreting r adiologist is fully responsible for the content of the report
[2021-08-17] MEDS ORDERED: ROSUVASTATIN CALCIUM 5 MG PO SCH (21:00)
[2021-08-17] MEDS ORDERED: PRAMIPEXOLE DI HCL 0.5 MG PO SCH (21:00)
[2021-08-17] MEDS ORDERED: QUETIAPINE 100MG TAB PO SCH (21:00)
[2021-08-17] MEDS ORDERED: PRAMIPEXOLE DI HCL 1 MG PO SCH (21:00)
[2021-08-17] MEDS ORDERED: MIRTAZAPINE 15 MG TAB PO SCH (21:00)
[2021-08-17 21:01] VITALS: O2SAT 97
[2021-08-17] MEDS: PREGABALIN 150 MG CAP PO SCH (21:07)
[2021-08-17] MEDS: PREGABALIN 75 MG CAP PO SCH (21:07)
--- NOTE | 2021-08-18 01:15 | CON ---
Reason For Consultation: Consultation called because of right-sided weakness and confusion. History Of Present Illness: Ms. Rico is a 71-year-old patient with multiple medical problems includi ng hypertension, hypothyroidism, depression, and dementia who comes to [facility] with 1 wee k's worth of confusion and right-sided weakness. She was reportedly neglecting herself because she h ad family member who had surgery and had been hospitalized. When her symptoms began, she did not see k medical attention initially. She had confusion and right-sided weakness in upper and lower extremi ties and more numbness as well and then weakness. She felt the strength perhaps improved, but the ri ght upper and lower extremities felt funny. Also the face felt funny. She had difficulty walking be cause of the right-sided symptoms and had problems with concentration, memory, and language as well. At [facility] again 4 or 5 days after symptom onset, the scan showed no acute intracranial findings. There was small-vessel ischemic disease as noted. A CT angiogram of her neck showed no ev idence of significant stenosis or occlusion in the major intracranial arteries as well as in the redding tid and vertebral arteries. It should be noted she has a stimulator implanted and is not able to get an MRI at this facility. Her cervical spine x-ray showed a moderate mid and lower cervical spondylo sis. Since onset, she believes the symptoms have not worsened, but perhaps have improved slightly. Past Medical History: As noted. Allergies: SULFA, MORPHINE, CODEINE. Medications: Acetazolamide 250 mg daily, clotrimazole betamethasone topical daily, Decara 50,000 uni ts daily, famotidine 20 mg twice daily, she has a fentanyl pain pump as noted, Lasix 20 mg daily, lev othyroxine 112 mcg daily, losartan 100 mg daily, memantine 10 mg daily, mirtazapine 15 mg daily, olme sartan daily, pramipexole 0.5 mg daily, pregabalin daily, quetiapine 150 mg daily, rosuvastatin 5 mg daily, and spironolactone 50 mg twice daily. Past Surgical History: Hysterectomy, left hip surgery, pain pump implantation, right hip surgery. Social History: No alcohol, tobacco, or IV drug use. The patient resides with family. Review of Systems: She denies any recent fevers or chills. She has myalgias, arthralgias, right-sided weakness, confusi on, disorientation. No headaches. Physical Examination: Vital Signs: Blood pressure 140/61, pulse 75, respiratory rate 16, temperature 97.4, oxygen saturati on 98%, weight 222 pounds, height 5 feet 3 inches, BMI 39. General: Ms. Rico is resting in bed. She is in no acute distress. HEENT: She is normocephalic, atraumatic. Sclerae anicteric. Oropharynx is pink and moist. Neck: Supple. Chest: Clear. Heart: Regular. Extremities: No significant edema, cyanosis, or clubbing. Neurologic: She is alert and oriented to situation, place, and person. She is slow to respond and h as decreased verbal fluency. She is able to give 7 words in a minute, not 11, which is normal and th citlalli words all began with the letter S, but she did follow all commands without significant difficulty . On cranial nerve examination, slight decrease to light touch and temperature on the right face com pared to the left. On motor examination, she has full strength in the upper extremities. No appreci able weakness proximally or distally in the lower extremities. On the right forefoot dorsiflexion, s he is 3/5 to 4/5. Hip flexion and knee flexion and extension 4/5 on the right. On the left side, 5/ 5 proximally and distally in the lower extremity. Sensation decreased to light touch and temperature on the right compared to the left upper and lower extremities. Coordination intact in both upper an d lower extremities. In terms of her gait, she will be evaluated with gait belt and physical therapy . Laboratory Studies: Complete blood count with differential shows a low hemoglobin at 10.7, white blo od cell count normal at 8.2. INR 1.19. Chemistries show a low potassium of 3.3 and chloride 113, ot herwise unremarkable. Liver function studies are normal. TSH 0.536. Procalcitonin less than 0.05. Calcium 8.5. Urinalysis shows 5-10 white blood cells, otherwise unremarkable. COVID-19 test is neg ative. Her electrocardiogram shows sinus bradycardia with left axis deviation, possible anterior inf arct, age undetermined. Assessment: Ms. Rico is a 71-year-old patient with possible left hemispheric stroke producing right sensory and motor deficits in the upper extremity and motor and sensory deficits involving the right lower extremity. She does have risk factors for stroke as noted above. Plan: 1.Aspirin 81 mg daily. At this point, also have Plavix 75 mg daily. Have fasting lipids done and t arget LDL to less than 70 with statin. 2.Folic acid 1 mg daily. 3.Evaluate for physical therapy needs and stratification. Apparently, she is going to [facility] where her son is and will likely do inpatient therapy there. IZABELA/J LUIS Voice ID: [id number] Report ID: [id number]
[2021-08-18 05:59] LABS: Absolute Lymphocytes (CBC) 1.5 K/uL (0.7-4.9); Hematocrit 30.5 % (36.0-45.0); Lymphocytes % 30.7 % (15.3-44.8); MPV 8.2 fL (7.6-11.3); RBC Red Blood Cell Count 3.93 M/uL (3.86-4.86)
[2021-08-18] MEDS ORDERED: ACETAMINOPHEN 500 MG TAB PO PRN (06:16)
[2021-08-18] MEDS ORDERED: LEVOTHYROXINE SOD PO SCH (06:30)
--- NOTE | 2021-08-18 07:24 | HP ---
Date of Admission: 08/17/2021 Chief Complaint: Feeling weak. History Of Present Illness: This is a 71-year-old pleasant female patient, who came into emergency room with almost 1-week history of feeling weak and some confusion associated with that. Denies any fall or injury. No headache. No nausea, vomiting. The patient says that she has trouble moving around or trouble walking because of significant weakness. She feels like she is more weaker on right side than left side. She is right-handed. Denies any trouble with speech. No problem with her eye sites. No tingling, numbness of extremities. No slurred speech. She also has noted some confusion off and on. Denies any fever, chills, nausea, vomiting. No abdominal pain. No urinary complaints. After she was evaluated in the ER yesterday, she was admitted to the hospital. Medications: List reviewed. 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 Constitutional: As mentioned above. All other systems reviewed and negative. Allergies: TO MORPHINE, CODEINE, AND SULFA. Past Surgical History: Pain pump and back surgery. Social History: Negative for smoking and alcohol use. Family History: Father from swine flu. Mother had anxiety, depression, and from myocardial infarction. Sister with myocardial infarction. Past Medical History: Significant for restless leg syndrome, hypothyroidism, dementia, hypertension, had paroxysmal atrial fibrillation when she had COVID and has not had a recurrence of that since that time. Osteoarthritis at multiple sites, chronic back pain, compression fracture of lumbar spine, fibromyalgia, vitamin D deficiency, and COVID-19 infection in December 2020. Physical Examination: Vital Signs: Temperature 97.8, pulse 73, respiratory rate 17, blood pressure 183/84, oxygen saturation 98% on room air. General: Awake, alert, oriented, not in distress. HEENT: Head atraumatic, normocephalic. Conjunctivae nonerythematous. Sclerae white. Mouth, no thrush or edema noted. Ears/Nose, no mass, lesion, discharge noted. Neck: Supple. No JVD, lymph nodes, bruit, thyromegaly noted. Lungs: Bilateral good equal air entry. Clear to auscultation. No rhonchi. No rales. Heart: Normal heart sounds, no murmur or gallop. Abdomen: Soft, bowel sounds normal. No guarding, rigidity, tenderness, mass, hepatosplenomegaly, distention, or bruit noted. Extremities: No leg edema. No calf tenderness. Skin: No rash, ulcer, cellulitis. Lymphatics: No lymph node enlargement in neck, supraclavicular, infraclavicular region. Neuro: Weakness of right lower extremity with power 4/5 compared to the left lower extremity. Power in both upper extremities normal and equal. Chest: Unremarkable. External Genitalia: Deferred. Rectal: Deferred. Laboratory Data: White count 8.2, hemoglobin 10.7, platelets 246. Sodium 144, potassium 3.2, chloride 112, bicarb 27, BUN 11, creatinine 1.12, glucose 123. Procalcitonin less than 0.05. Urinalysis negative. COVID-19 test negative. CAT scan of the head was negative for any acute intracranial changes. Chest x- ray was negative for any acute intrathoracic changes. Impression: 1. Weakness. 2. Osteoarthritis, multiple sites. 3. Hypothyroidism. 4. Hypertension. 5. Fibromyalgia. 6. Chronic back pain. Plan: We will go ahead and admit the patient to hospital for further evaluation and management of this problem. Consult neurologist, Dr. Murdock. I will get an x-ray of the cervical spine. Home medications will be continued per order, DVT prophylaxis will be given per order. The patient has a pain pump and we will not be able to do MRI because of that. There is no evidence of any stroke either clinically or on basis of etiological testing. Details were discussed with the patient. She uses her oxygen at home all the time per advice. I will see her tomorrow for followup. Details and plan of treatment discussed with her. BO/J LUIS Voice ID: [id number] MTDD
[2021-08-18 08:21] VITALS: BP 136/76; TEMP 97.1
[2021-08-18] MEDS ORDERED: DESVENLAFAXINE SUCCINATE 100 MG PO SCH (09:00)
[2021-08-18] MEDS ORDERED: CLOPIDOGREL 75 MG TABLET PO SCH (09:00)
[2021-08-18] MEDS ORDERED: ASPIRIN EC 81 MG TAB PO SCH (09:00)
[2021-08-18] MEDS ORDERED: ACETAZOLAMIDE 250 MG PO SCH (09:00)
[2021-08-18] MEDS ORDERED: FOLIC ACID 1 MG TABLET PO SCH (09:00)
[2021-08-18] MEDS ORDERED: FAMOTIDINE 20 MG PO SCH (09:00)
[2021-08-18] MEDS ORDERED: SPIRONOLACTONE 25 MG PO SCH (09:00)
[2021-08-18] MEDS: PREGABALIN 75 MG CAP PO SCH (09:37)
[2021-08-18] MEDS: PREGABALIN 150 MG CAP PO SCH (09:37)
[2021-08-18] MEDS: HOME MED 1 EA UNK (Memantine Hcl [Memantine Hcl] 5 MG Tablet) PO SCH (09:37)
[2021-08-18] MEDS: MULTIVITAMIN TAB PO SCH (09:37)
[2021-08-18] MEDS ORDERED: HOME MED 1 EA UNK (Rosuvastatin Calcium [Rosuvastatin Calcium] 20 MG) PO SCH (21:00)
--- NOTE | 2021-08-19 22:58 | DS ---
Date of Discharge: 08/18/2021 Disposition: The patient was transferred to go to [facility] swing bed facility. Physical Examination: HEENT: Unremarkable. Lungs: Clear to auscultation. Heart: Heart sounds normal. Abdomen: Soft, bowel sounds normal. No guarding, rigidity, tenderness, or distention. Extremities: No leg edema. Neuro: Weakness of right lower extremity with power 4/5 compared to the left lower extremity. Power in both upper extremities normal and equal. Laboratory Data: Upon admission, white count 8.2, hemoglobin 10.7, platelets 246. Today, white coun t 5, hemoglobin 9.8, and platelet count of 218. Upon admission, sodium 144, potassium 3.2, chloride 112, bicarb 27, BUN 11, creatinine 1.12, glucose 123. Today, sodium 146, potassium 3, chloride 112, bicarb 26, BUN 11, creatinine 0.90, glucose 80. Discharge Medications And Instructions: 1.Continue all prior home medication except stop rosuvastatin 5 mg. 2.Stop aspirin 325 mg dose. 3.Start following new medication, which is rosuvastatin 20 mg 1 tablet daily at bedtime. 4.Aspirin 81 mg take 1 tablet by mouth daily with food. 5.Clopidogrel 75 mg take 1 tablet daily with food. 6.Fall precautions. 7.Consult Physical therapy and Occupational therapy. Hospital Course: Ms. Rico is a very pleasant 71-year-old female patient who was admitted to the hosp ital with right-sided weakness and some confusion. Please see dictated H and P for more information. After patient was evaluated in the emergency room, she was admitted to the hospital. Since patient has a pain pump in place, she is not able to get MRI, so CT scan of the brain and CT angiogram of ne ck and head was done, which did not show any acute intracranial changes and did not show any occlusio n or significant stenotic lesion. At home she was taking aspirin 325 mg by mouth daily. Here in the hospital was started on aspirin 81 mg daily, clopidogrel 75 mg daily was added and we also added fol ic acid 1 mg daily. Lipid profile was done today and the patient normally takes rosuvastatin 5 mg da essence, which we have increased the dose to high-dose statin therapy, which is rosuvastatin 20 mg daily at bedtime. Overall, her condition remained stable. Neurology consultation was requested from Dr. Sanchez goldstein and no further intervention was suggested except medical management as outlined here. The mj castellanos is at high risk of fall and injury and the patient requested for us to make arrangements for he r to go to [facility] swing bed facility and after arrangements completed, today she was dischar zeb to go there in stable condition. Final Diagnoses: 1.Stroke. 2.Anemia, chronic. 3.Hypertension. 4.Hyperlipidemia. 5.Hypothyroidism. 6.Fibromyalgia. 7.Osteoarthritis, multiple sites. 8.Hypokalemia. BO/MODL Voice ID: [id number] Report ID: [id number]
== END 2021-08-18 11:20 | disposition home or self-care (01) | DRG 65 ==
LOC: ER 23:04 → ERHOLD 08-17 02:26 → 2ND 08-17 03:31 → OBSVTOIN 08-17 20:22
PROVIDERS: ADMIT Internal Medicine; ATTEND Internal Medicine
DX: I63.9 Cerebral infarction, unspecified (principal); G81.91 Hemiplegia, unspecified affecting right dominant side; R20.8 Other disturbances of skin sensation; E87.6 Hypokalemia; G25.81 Restless legs syndrome; E03.9 Hypothyroidism, unspecified; F03.90 Unspecified dementia, unspecified severity, without behavioral disturbance, psychotic disturbance, mood disturbance, and anxiety; I10 Essential (primary) hypertension; M15.9 Polyosteoarthritis, unspecified; G89.29 Other chronic pain; M54.9 Dorsalgia, unspecified; M79.7 Fibromyalgia; D64.9 Anemia, unspecified; E78.5 Hyperlipidemia, unspecified; Z86.16 Personal history of COVID-19; Z88.2 Allergy status to sulfonamides; Z97.8 Presence of other specified devices; Z20.822 Contact with and (suspected) exposure to COVID-19
CPT/HCPCS: 36415; 70450; 70496; 70498; 71045; 72040; 80048; 80053; 80061; 81003; 81015; 82565; 82728; 82947; 83735; 84145; 84443; 85025; 85610; 85730; 87040; 87086; 87088; 93005; 99285; G0378; Q9967; U0003

== ENCOUNTER 2021-09-26 10:23 | Observation (INO) | payer OTHER ==
--- OUTSIDE RECORDS SUMMARY | 2021-09-26 11:02 | XMS REPORT | Continuity of Care Document ---
:1950 Author Organization [facility] t Address [address] [place] [address] Care Team Providers Name Role Phone Maty Kim MD Primary Care Physician [phone] CULLEN Attending Clinician Unavailable BENNIE Attending Clinician Unavailable Saskia SULLIVAN Attending Clinician Unavailable BENNIE Admitting Clinician Unavailable Saskia SULLIVAN Admitting Clinician Unavailable Payers Payer Name Policy Type Policy Number Effective Date Expiration Date S bertrand MEDICARE PART A [id number] 2015 AND B 00:00:00 Problems Condition Condition Condition Status Onset Resolution Last Treating Co mments Source Name Details Category Date Date Treatment Clinician Date Chronic Chronic Disease [facility] 00 [place] Wound, Wound, Disease Active [facility] surgical, surgical, 5-15 [facility] infected infected 00:00: Medica l 00 Center Pre-op Pre-op Disease Active [facility] testing testing 5[facility]15 [facility] 00 [place] Hypothyroi Hypothyroi Disease Active [facility] dism dism 3-12 [facility] 00 [place] Depression Depression Disease Active [facility] with with 3-12 [facility] anxiety anxiety 00:00: Medical 00 [place] Obesity Obesity Disease Active [facility] 3[facility]12 [facility] 00 [place] Pain Pain Disease Active [facility] 3[facility] 00 [place] Essential Essential Disease Active [facility] hypertensi hypertensi 3-12 Ileana kes on on 00:00: Medical 00 Center Chronic Chronic Disease Active [facility] disorder disorder 00:[facility] Medica l 00 Center Depression Problem Active 2015-11-02 M emoria with 03:35:47 l anxiety [place] Depression with anxiety Active Problem 11/02/2015 eCW: Gaurav Fraser Morbid Problem Active 2015-11-02 Memor ia Obesity 03:35:47 l Morbid [place] Obesity Active Problem 11/02/2015 eCW: Gaurav Fraser Hyperlipid Problem Active 2015-11-02 M emoria emia 03:35:47 l [place] Hyperlipid emia Active Problem 11/02/2015 eCW: Gaurav LebronBria Osteoarthr Problem Active 2015-11-02 M emoria itis 03:35:47 l generalize [place] n d Osteoarthr itis generalize d Active Problem 11/02/2015 eCW: Gaurav LebronBria Hypothyroi Problem Active 2015-11-02 M emoria dism 03:35:47 l (acquired) Bl[place] n Hypothyroi dism (acquired) Active Problem 11/02/2015 eCW: Gaurav LebronBria Osteoporos Problem Active 2015-11-02 M emoria is 03:35:47 l [place] Osteoporos is Active Problem 6 eCW: Gaurav LebronBria Bipolar Problem Active 2015-11-02 Inder homar affective 03:35:47 l disorder, Bipolar Herm ila depressed affective disorder, depressed Active Problem 11/02/2015 eCW: Gaurav LebronBria Low Back Problem Active 2015-11-02 Mem oria Pain 03:35:47 l Low Back [place] n Pain Active Problem 11/02/2015 eCW: Gaurav LebronBria Fibromyalg Problem Active 2015-11-02 M emoria ia 03:35:47 l [place] Fibromyalg ia Active Problem 6 eCW: Gaurav Fraser Routine Diagnosis Active 2014-01-08 Tn moria medical 02:02:51 l exam Routine [place] medical exam Active Diagnosis 01/08/2014 eCW: Gaurav Fraser Screen Diagnosis Active 2014-03-18 Mem oria Mammogram 03:04:03 l NEC Screen [place] Mammogram NEC Active Diagnosis 03/18/2014 eCW: Gaurav Fraser Vitamin D Problem Active 2015-11-02 Me moria Deficiency 03:35:47 l Vitamin [place] D Deficiency Active Problem 11/02/2015 eCW: Gaurav Fraser Pre-op Diagnosis Active 2015-02-24 Mem oria evaluation 03:03:42 l Pre-op [place] evaluation Active Diagnosis 02/24/2015 eCW: Gaurav Fraser Pre-op Diagnosis Active 2015-05-21 Mem oria examinatio 04:05:13 l n Pre-op [place] examinatio n Active Diagnosis 05/21/2015 eCW: Gaurav LebronBria Restless Problem Active 2016-05-18 Mem oria legs 03:03:33 l syndrome Restless Herm ila legs syndrome Active Problem 05/18/2016 eCW: Gaurav LebronBria Depression Problem Active 2016-05-18 M emoria with 03:03:33 l anxiety [place] Depression with anxiety Active Problem 05/18/2016 eCW: Gaurav LebronBria Spinal Problem Active 2016-05-18 Memor ia stenosis 03:03:33 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[place] 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 Active Problem 05/18/2016 eCW: Gaurav LebronBria Vitamin D Problem Active 2016-05-18 Me moria deficiency 03:03:33 l Vitamin [place] D deficiency Active Problem 05/18/2016 eCW: Gaurav Bria Dorsalgia, Problem Active 2016-05-18 M emoria unspecifie 03:03:33 l d [place] Dorsalgia, unspecifie d Active Problem 05/18/2016 eCW: Gaurav Fraser Osteoporos Problem Active 2016-05-18 M emoria is 03:03:33 l [place] Osteoporos is Active Problem 7 eCW: Gaurav Fraser Hypothyroi Problem Active 2016-05-18 M emoria dism, [...] 2015-05-21 Mem oria deficits 03:39:44 l Memory [place] deficits Active Diagnosis 05/21/2015 eCW: Gaurav Fraser Conjunctiv Diagnosis Active 2015-05-21 Memoria itis 04:11:35 l [place] Conjunctiv itis Active Diagnosis 05/21/2015 eCW: Gaurav Fraser Hypertensi Problem Active 2016-05-18 M emoria on 03:03:33 l [place] Hypertensi on Active Problem 7 eCW: Gaurav Fraser Obesity Problem Active 2016-05-18 Inder homar 03:03:33 l Obesity [place] Active Problem 05/18/2016 eCW: Gaurav Fraser Conjunctiv Diagnosis Active 2015-11-02 Memoria itis 03:35:47 l [place] Conjunctiv itis Active Diagnosis 11/02/2015 eCW: Gaurav Fraser History of Past Illness Condition Condition Condition Status Onset Resolution Last Treating Co mments Source Name Details Category Date Date Treatment Clinician Date M1990 Diagnosis 2018-2018-10-22 2018-10-22 Memoria UNSPECIFIE 10-01 15:01:34 15:01:34 l D M19.90 00:00: [place] OSTEOARTHR UNSPECIFIE 00 ITIS, D UNSPECIFIE OSTEOARTHR D SITE ITIS, UNSPECIFIE D SITE 10/01/2018 Diagnosis 9 [place] Z95.810 Diagnosis 2018-2018-10-22 2018-10-22 Memoria PRESENCE 10-01 15:01:34 15:01:34 l OF Z95.810 00:00: [place] AUTOMATIC PRESENCE 00 (IMPLANTAB OF LE) AUTOMATIC CARDIAC (IMPLANTAB DEFIBRILLA LE) TOR CARDIAC DEFIBRILLA TOR 10/01/2018 Diagnosis 9 [place] E78.5 Diagnosis 2018-2018-10-22 2018-10-22 Memoria HYPERLIPID 6 15:01:34 15:01:34 l EMIA, E78.5 00:00: [place] UNSPECIFIE HYPERLIPID 00 D EMIA, UNSPECIFIE D 10/01/2018 Diagnosis 9 [place] K21.9 Diagnosis 2018-2018-10-22 2018-10-22 Memoria GASTRO-ESO 6- 15:01:34 15:01:34 l PHAGEAL K21.9 00:00: [place] REFLUX GASTRO-ESO 00 DISEASE PHAGEAL WITHOUT REFLUX ESOPHAGITI DISEASE S WITHOUT ESOPHAGITI S 10/01/2018 Diagnosis 9 [place] R52 PAIN, Diagnosis 2018-2018-10-22 2018-10-22 Memoria UNSPECIFIE 10-01 15:01:34 15:01:34 l D R52 00:00: [place] PAIN, 00 UNSPECIFIE D 10/01/2018 Diagnosis 9 [place] R53.1 Diagnosis 2018-10-22 2018-10-22 Memoria WEAKNESS 6 15:01:34 15:01:34 l R53.1 00:00: [place] WEAKNESS 00 9 Diagnosis 10/22/2018 [place] L30.9 Diagnosis 2018-10-22 2018-10-22 Memoria DERMATITIS 6 15:01:34 15:01:34 l , L30.9 00:00: [place] UNSPECIFIE DERMATITIS 00 D , UNSPECIFIE D 10/01/2018 Diagnosis 9 [place] W19.XXXA Diagnosis 2018-2018-10-22 2018-10-22 Memoria UNSPECIFIE 10-01 15:01:34 15:01:34 l D FALL, W19.XXXA 00:00: Linda nn INITIAL UNSPECIFIE 00 ENCOUNTER D FALL, INITIAL ENCOUNTER 10/01/2018 Diagnosis 9 [place] E66.9 Diagnosis 2018-2018-10-22 2018-10-22 Memoria OBESITY, 6- 15:01:34 15:01:34 l UNSPECIFIE E66.9 00:00: Linda nn D OBESITY, 00 UNSPECIFIE D 10/01/2018 Diagnosis 9 [place] M43.26 Diagnosis 2018-2018-10-22 2018-10-22 Memoria FUSION OF 6-25 15:01:34 15:01:34 l SPINE, M43.26 00:00: [place] LUMBAR FUSION OF 00 REGION SPINE, LUMBAR REGION 10/01/2018 Diagnosis 9 [place] F32.9 Diagnosis 2017-2018-10-22 2018-10-22 Memoria MAJOR 3- 15:01:34 15:01:34 l DEPRESSIVE F32.9 00:00: Linda nn DISORDER, MAJOR 00 SINGLE DEPRESSIVE EPISODE, DISORDER, UNSPECIFIE SINGLE D EPISODE, UNSPECIFIE D 07/03/2017 Diagnosis 9 [place] R25.1 Diagnosis 2017-2018-10-22 2018-10-22 Memoria TREMOR, 07-03 15:01:34 15:01:34 l UNSPECIFIE R25.1 00:00: Linda nn D TREMOR, 00 UNSPECIFIE D 07/03/2017 Diagnosis 9 [place] Z98.890 Diagnosis 2018-10-22 2018-10-22 Memoria OTHER 07-03 15:01:34 15:01:34 l SPECIFIED [place] [id number] 00:00: Herm ila POSTPROCED OTHER 00 URAL SPECIFIED STATES POSTPROCED URAL STATES 07/03/2017 Diagnosis 9 [place] M54.5 LOW Diagnosis 2017-2018-10-22 2018-10-22 Memoria BACK PAIN 3 15:01:34 15:01:34 l M54.5 00:00: [place] LOW BACK 00 PAIN 07/03/2017 Diagnosis 9 [place] I10 Diagnosis 2018-10-22 2018-10-22 Memoria ESSENTIAL 3 15:01:34 15:01:34 l (PRIMARY) I10 00:00: [place] HYPERTENSI ESSENTIAL 00 ON (PRIMARY) HYPERTENSI ON 07/03/2017 Diagnosis 9 [place] Z96.9 Diagnosis 2017-2018-10-22 2018-10-22 Memoria PRESENCE 3 15:01:34 15:01:34 l OF Z96.9 00:00: [place] FUNCTIONAL PRESENCE 00 IMPLANT, OF UNSPECIFIE FUNCTIONAL D IMPLANT, UNSPECIFIE D 07/03/2017 Diagnosis 9 [place] Chronic Diagnosis 2017-2018-10-22 2018-10-22 Memoria pain 07-03 15:01:34 15:01:34 l syndrome Chronic 00:00: Linda nn (disorder) pain 00 syndrome (disorder) 07/03/2017 Diagnosis 9 [place] Z97.8 Diagnosis 2017-2018-10-22 2018-10-22 Memoria PRESENCE 07-03 15:01:34 15:01:34 l OF OTHER Z97.8 00:00: [place] SPECIFIED PRESENCE 00 DEVICES OF OTHER SPECIFIED DEVICES 07/03/2017 Diagnosis 9 [place] M79.7 Diagnosis 2017-2018-10-22 2018-10-22 Memoria FIBROMYALG 07-03 15:01:34 15:01:34 l IA M79.7 00:00: [place] FIBROMYALG 00 IA 07/03/2017 Diagnosis 9 [place] E03.9 Diagnosis 2018-10-22 2018-10-22 Memoria HYPOTHYROI 07-03 15:01:34 15:01:34 l DISM, E03.9 00:00: [place] UNSPECIFIE HYPOTHYROI 00 D DISM, UNSPECIFIE D 07/03/2017 Diagnosis 9 [place] Z90.710 Diagnosis 2018-10-22 2018-10-22 Memoria ACQUIRED 07-03 15:01:34 15:01:34 l ABSENCE OF Z90.710 00:00: Her mcguire BOTH ACQUIRED 00 CERVIX AND ABSENCE OF UTERUS BOTH CERVIX AND UTERUS 07/03/2017 Diagnosis 9 [place] F41.9 Diagnosis 2018-10-22 2018-10-22 Memoria ANXIETY 07-03 15:01:34 15:01:34 l DISORDER, F41.9 00:00: Bla[place] n UNSPECIFIE ANXIETY 00 D DISORDER, UNSPECIFIE D 07/03/2017 Diagnosis 9 [place] Z96.643 Diagnosis 2017-2018-10-22 2018-10-22 Memoria PRESENCE 07-03 15:01:34 15:01:34 l OF Z96.643 00:00: [place] ARTIFICIAL PRESENCE 00 HIP JOINT, OF BILATERAL ARTIFICIAL HIP JOINT, BILATERAL 07/03/2017 Diagnosis 9 [place] Allergies, Adverse Reactions, Alerts Allergy Allergy Status [...] [facility]06 [facility] adverse 00:[facility]: Medical reaction 00 Center s Sulfa Propensi Active Hives [facility] (Sulfona ty to 2-06 [facility] mide adverse 00:00: Medical Antibiot reaction 00 Center ics) s codeine codeine Active vomiting Memori a 9-26 l 00:00: Social History Social Habit Start Date Stop Date Quantity Comments Source Alcohol intake 2017-12-11 2017-12-[address] [facility] Jael es 00:00:00 00:00:00 non-drinker of Medical Ce nter alcohol (finding) Tobacco use and 2017-05-15 2017-05-[address] [facility] Ileana kes exposure 00:00:00 00:00:00 Medical [place] Language: 2016-01-03 2016-01-03 [facility] 00:00:00 00:00:00 Sex Assigned At [address] Ile[facility] kes 00:00:00 00:00:00 [facility] Smoking Status Start Date Stop Date Source Social History [facility] Never smoker [facility] Medications Ordered Filled Start Stop Current Ordering Indication Dosage Frequency Signature Comments Components Source Medication Medication Date Date Medication? Clinician (SIG) Name Name oxyCODONE Yes Give 1 Memori a HCl Tablet 7-01 tablet by l 10 MG 01:00: mouth [place] 00 three times a day for pain QUEtiapine Yes GIVE 1 Memor ia Fumarate 6-27 TABLET BY l Tablet 50 00:00: MOUTH AT Herm ila MG 00 BEDTIME Mirapex Yes GIVE 1 Memoria Tablet 0.5 6-27 TABLET BY l MG 00:00: MOUTH AT [place] 00 BEDTIME Lyrica Yes Give 1 Memoria Capsule 200 6-26 capsule by l MG 20:00: mouth [place] 00 three times a day related to [...] a Solution 6-26 mcg l 12:00: subcutaneo [place] 00 usly one time a day related to UNSPECIFIE D OSTEOARTHR ITIS, UNSPECIFIE D SITE (M19.90) Cholestyram Yes GIVE 1 Inder homar ine Light 6-26 PACKET BY l Packet 4 GM 12:00: MOUTH ONE H ermann 00 TIME A DAY MIX IN 8OZ LIQUID Lotrisone Yes APPLY TO Inder homar Cream 6-26 AFFECTED l 1-0.05 % 12:00: AREA [place] 00 TOPICALLY TWO TIMES A DAY BOTH [...] capsule by l MG 12:00: mouth four [place] 00 times a day related to FIBROMYALG IA (M79.7) DESVENLAFAX Yes TAKE 1 TAB Memoria INE ER 50MG 6-26 BY MOUTH l TAB ER 24H 12:00: EVERY DAY He rmann 00 Ferrous Yes Give 1 Memoria Sulfate 6-26 tablet by l Tablet 325 12:00: mouth one He rmann (65 Fe) MG 00 time a day for supplement ation Vitamin D2 Yes GIVE 54087 M emoria Tablet 6-26 UNIT BY l 12:00: MOUTH ONE [place] 00 TIME A DAY EVERY WED GlycoLax Yes Give 17 Memori a Powder 6-26 gram by l 12:00: mouth one [place] 00 time a day every other day [...] [facility] ne 9-06 mcg by [facility] (SYNTHROID, 16:19: mouth Medic al LEVOTHROID) 24 Every Center 112 MCG morning on tablet an empty stomach. pregabalin Yes 225mg Q.5D Take [address] (LYRICA) 9-06 mg by [facility] 225 MG 16:19: mouth 2 Medical capsule 24 (two) Center times daily. clotrimazol 2017- Yes Q.5D Apply [facility] e-betametha -06 topically Jael es sone 16:19: 2 (two) Medical (LOTRISONE) 24 times Center 1-0.05 % daily. cream cholecalcif Yes 59192V Q7D Take [facility] brady, 906 50,000 [facility] vitamin D3, 16:19: Units by Me dical (DECARA) 24 mouth once Cente r 50,000 unit a week. capsule desvenlafax 2018-0 Yes 50mg QD Take [address] ine 9-06 by mouth [facility] succinate 16:19: daily. Medica l (PRISTIQ) 24 Center 50 MG 24 hr tablet mirtazapine 2018-0 Yes 15mg QD Take [address] (REMERON) 06 by mouth [facility] 30 MG 16:19: nightly . Medical tablet 24 Center temazepam 2018-0 Yes 15mg Take [address] (RESTORIL) 12-13 by mouth [facility] 15 mg 16:19: every Medical capsule 24 night as Center needed for Sleep. lidocaine 2018-0 Yes 1{patch Q24H Place [address] (LIDODERM) 12-13 } patch onto Jael es 5 % patch 16:19: the skin Medi jose luis 24 daily Center Remove & Discard patch within 12 hours or as directed by MD . pramipexole 2018-0 Yes .5mg QD Take 0.[address] (MIRAPEX) 9-06 mg by [facility] 0.5 MG 16:19: mouth Medical tablet 24 nightly. Center docusate 20180 Yes 100mg Q.5D Take [address] sodium 9-06 mg by [facility] (COLACE) 16:19: mouth 2 Medica l 100 MG 24 (two) Center capsule times daily. oxymetazoli 2018-0 Yes 2{spray [address] [facility] ne (AFRIN) 12-13 } by Nasal [facility] 0.05 % 16:19: route 2 Medical nasal spray 24 (two) Center times daily as needed for Congestion . diphenhydrA 2018-0 Yes 25mg Take [address] MINE 12-13 by mouth [facility] (ZZZQUIL) 16:19: every Medical 25 mg 24 night as Center capsule needed (sleep). MENTHOL 2018-0 Yes 1{patch Q.5D Apply [address] [facility] [address] (ICY HOT 12-13 } patch [facility] PATCH TOP) 16:19: topically Me dical 24 2 (two) Center times daily. gabapentin 2018-0 Yes 300mg Q.[id number] Take [address] (NEURONTIN) 12-13 [id number] mg by L ukes 300 MG 16:19: 3D mouth 3 Medical capsule 24 (three) Center times daily. oxyCODONE 2018-0 Yes 15mg Take [address] (ROXICODONE 9-06 by mouth Luke s ) 15 MG 16:19: every 4 Medical immediate 24 (four) Center release hours as tablet needed for Pain. furosemide 2017-0 Yes hypertensio 10mg QD Take [address] [address] (LASIX) 20 9-06 n by mouth [facility] MG tablet 16:19: daily. Medica l 24 Center levothyroxi 2017-0 Yes 112ug Take [address] ne 9-06 mcg by [facility] (SYNTHROID, 16:19: mouth Medic al LEVOTHROID) 24 Every Center 112 MCG morning on tablet an empty stomach. pregabalin 2018-0 Yes 225mg Q.5D Take [address] (LYRICA) 9-06 mg by [facility] 225 MG 16:19: mouth 2 Medical capsule 24 (two) Center times daily. clotrimazol 2018-0 Yes Q.5D Apply [facility] t e-betametha 12-13 topically Jael es sone 16:19: 2 (two) Medical (LOTRISONE) 24 times Center 1-0.05 % daily. cream cholecalcif 2018-0 Yes [id number] Q7D Take [facility] brady, 12-13 50,000 [facility] vitamin D3, 16:19: Units by Tn juan pablo (DECARA) 24 mouth once Cente r 50,000 unit a week. capsule desvenlafax 0 Yes 50mg QD Take [address] [facility] ine 9-06 by mouth [facility] succinate 16:19: daily. Medica l (PRISTIQ) 24 Center 50 MG 24 hr tablet mirtazapine 2017-0 Yes 15mg QD Take [address] [facility] (REMERON) -06 by mouth [facility] 30 MG 16:19: nightly . Medical tablet 24 Center temazepam 2018-0 Yes 15mg Take [address] (RESTORIL) 9-06 by mouth [facility] 15 mg 16:19: every Medical capsule 24 night as Center needed for Sleep. lidocaine 2018-0 Yes 1{patch Q24H Place [address] (LIDODERM) 12-13 } patch onto Jael es 5 % patch 16:19: the skin Medi jose luis 24 daily Center Remove & Discard patch within 12 hours or as directed by . pramipexole 2018- Yes .5mg QD Take 0.[address] (MIRAPEX) 9-06 mg by [facility] 0.5 MG 16:19: mouth Medical tablet 24 nightly. Center docusate 2018-0 Yes 100mg Q.5D Take [address] sodium 9-06 mg by [facility]ukes (COLACE) 16:19: mouth 2 Medica l 100 MG 24 (two) Center capsule times daily. oxymetazoli 2018- Yes 2{spray [address] ne (AFRIN) 12-13 } by Nasal [facility] 0.05 % 16:19: route 2 Medical nasal spray 24 (two) Center times daily as needed for Congestion . diphenhydrA 2017- Yes 25mg Take [address] MINE 12-13 by mouth [facility] (ZZZQUIL) 16:19: every Medical 25 mg 24 night as Center capsule needed (sleep). MENTHOL 2017- Yes 1{patch Q.5D Apply [address] [facility] (ICY HOT 12-13 } patch [facility] PATCH TOP) 16:19: topically Me dical 24 2 (two) Center times daily. gabapentin Yes 300mg Q.[id number] Take [address] (NEURONTIN) - [id number] mg by L ukes 300 MG 16:19: 3D mouth 3 Medical capsule 24 (three) Center times daily. oxyCODONE Yes 15mg Take [address] (ROXICODONE -06 by mouth Luke s ) 15 MG 16:19: every 4 Medical immediate 24 (four) Center release hours as tablet needed for Pain. furosemide Yes hypertensio 10mg QD Take [address] [facility] (LASIX) 20 9-06 n by mouth [facility] MG tablet 16:19: daily. Medica l 24 Center Temazepam Yes Give 1 Memori a Capsule 15 4-14 capsule by l MG 05:00: mouth [place] 00 every 24 hours as needed for insomnia Ibuprofen Yes GIVE 1 Memori a Tablet 400 4-12 TABLET BY l MG 20:00: MOUTH [place] 00 THREE TIMES A DAY FOR 7 DAYS OxyCODONE 2017- Yes Give 1 Memori a HCl Tablet 4-07 tablet by l 15 MG 16:15: mouth [place] 00 every 6 hours as needed for For pain Temazepam Yes Give 2 Memori a Capsule 7.5 4-07 capsule by l MG 03:00: mouth [place] 00 every 24 hours as needed for insomnia give 2 tabs = 15mg Amoxicillin Yes GIVE 1 Inder homar -Pot 4-06 TABLET BY l Clavulanate 00:00: MOUTH Linda nn Tablet 00 EVERY 12 875-125 MG HOURS FOR 7 DAYS Temazepam Yes Give 1 Memori a Capsule 15 4-05 tablet by l MG 23:53: mouth [place] 00 every 24 hours as needed for sleep until 07/16/2017 23:59 Temazepam Yes Give 1 Memori a Capsule 15 4-05 capsule by l MG 20:45: mouth [place] 00 every 24 hours as needed for Insomnia Bisacodyl Yes Give 2 Memori a EC Tablet 4-04 tablet by l Delayed 15:00: mouth [place] Release 5 00 every 24 MG hours as needed for constipati on Acetaminoph Yes Give 2 Inder homar en Tablet 4-02 tablet by l 325 MG 20:45: mouth [place] 00 every 6 hours as needed for pain and fever greater than 100.4 Decara Yes Give 75357 Memor ia Capsule 3-29 [place] [address]69 UNIT 12:00: mouth one He rmann 00 [...] a Patch 3-28 affected l 12:00: area [place] 00 topically two times a day for [...] TABLET BY l MG 00:00: MOUTH AT [place] 00 BEDTIME Mirapex Yes GIVE 1 Memoria Tablet 0.5 3-28 TABLET BY l MG 00:00: MOUTH AT [place] 00 BEDTIME Lyrica Yes Give 1 Memoria Capsule 225 3-28 capsule by l MG 00:00: mouth two [place] 00 times a day related to FIBROMYALG [place] (M79.7) Clotrimazol Yes Apply to Me moria e-Betametha 3-28 affected l sone Cream 00:00: area [place] 1-0.05 % 00 topically two times a [...] 00:00: [place] 00 lorazepam 2016- Yes Brigid HannaElías 1 tab(s) Memoria 1-26 Bria l 03:03: [place] 13 levothyroxi 2015-04 Yes Milagros Tejeda 1 tab(s) Memoria ne 0-13 l 02:18: [place] 44 fenofibrate 2015-04 Yes Milagros Tejeda 1 tab(s) Memoria 0-13 l 02:18: [place] 44 Vitamin D3 2015-04 Yes Milagros Tejeda 1 cap(s) Memoria 0-13 l 02:18: [place] 44 mirtazapine 2015-04 Yes Milagros Tejeda 1 tab(s) Memoria 0-13 l 02:18: [place] 44 ibandronate 2015-04 Yes Milagros Tejeda 1 tab(s) Memoria 0-13 l 02:18: [place] 44 zolpidem 2015-04 Yes Milagros Tejeda 1 tab(s) Memoria 0-13 l 02:18: [place] 44 Pristiq 2015-04 Yes Milagros Tejeda 1 tab(s) Memoria 0-13 l 02:18: [place] 44 lidocaine 2015-04 Yes Milagros Tejeda - Me moria 0.5% 0-13 l topical 02:18: [place] [facility] 44 Butrans 2015-04 Yes Milagros Tejeda 1 patch M emoria 0-13 l 02:18: [place] 44 clonidine 2015-04 Yes Milagros Tejeda 1 tab(s) Memoria 0-13 l 02:18: [place] 44 hydrochloro 2015-04 Yes Milagros Tejeda 1 tab(s) Memoria thiazide-lo 0-13 l sartan 02:18: [place] 44 Lyrica Yes Brigid Becketto 1 cap(s) M emoria 9-26 Bria l 00:00: [place] 00 ergocalcife Yes Milagros Tejeda 1 cap(s) Memoria rol 9-26 l 00:00: [place] 00 clotrimazol Yes Milagros Tejeda 1 noy Memoria e topical - l 00:00: [place] 00 Vigamox 2016-0 Yes Brandon 1 gtt Inder homar 6-27 Davis l 00:00: [place] 00 PrednisoLON 2015-0 Yes Milagros Lu 1 gtt Memoria E Na 6-27 l Phosphate-N 00:00: Blaise n a 00 Sulfacetami de Lyrica 0 Yes Brandon 1 cap(s) Me moria 6-01 Davis l 00:00: [place] 00 Lyrica 0 Yes Brandon 1 cap(s) Me moria 4-29 Davis l 02:37: [place] 52 hydrochloro 0 Yes Brandon 1 tab(s) Memoria thiazide-lo 2-29 Davis l sartan 00:00: [place] 00 benzonatate 0 Yes Brandon 1 cap(s) Memoria 2-12 Davis l 03:39: [place] 44 Lyrica 2014-04 Yes Brandon 1 cap(s) Me moria 1-23 Davis l 00:00: [place] 00 Levaquin 2014-1 Yes Brandon 1 tab(s) Memoria 1-04 Davis l 00:00: [place] 00 ofloxacin 2014-0 Yes Brandon 2 gtt Me moria ophthalmic 9-28 Davis l 00:00: [place] 00 Betamethaso 2014-0 Yes Brandon 1 noy Memoria ne-Clotrima 8-11 Davis l zole 00:00: [place] 00 Montelukast 2014-0 Yes Brandon 1 tab(s) Memoria Sodium 3-30 Davis l 00:00: [place] 00 benzonatate 2014-0 Yes Brandon 1 cap(s) Memoria 3-16 Davis l 00:00: [place] 00 ProAir HFA 2014-0 Yes Brandon 2 puff(s) Memoria 3-16 Davis l 00:00: [place] 00 Betamethaso 2013-1 Yes Brandon 1 noy Memoria ne-Clotrima 2-15 Davis l zole 00:00: [place] 00 tramadol 2013- Yes Brandon 2 tab(s) Memoria 2-10 Davis l 03:04: [place] 03 cyclobenzap 2013- Yes Brandon 1 tab(s) Memoria rine 2-10 Davis l 03:04: [place] 03 zolpidem 2013- Yes Brandon 1 tab(s) Memoria 0-29 Davis l 00:00: [place] 00 Vitamin D3 2013-0 Yes Brandon 1 cap(s) Memoria 9-11 Davis l 00:00: [place] 00 Lyrica 2014-0 Yes Brandon 1 cap(s) Me moria 8-28 Davis l 00:00: [place] 00 Immunizations Ordered Immunization Filled Immunization Date Status Commen ts Source Name Name Influenza (MCR) 2014-03-23 Completed [facility] 00:00:00 [place] Vital Signs Vital Name Observation Time Observation Value Comments Source Systolic (mm Hg) 2018-10-22 11:19:00 Inder rial [place] Diastolic (mm Hg) 2018-10-22 11:19:00 Mem orial [place] Temperature Oral (F) 2018-10-22 11:19:00 98 F [facility] [place] Heart Rate 2018-10-22 11:19:00 53 /min [facility] [place] Respitory Rate 2018-10-22 11:19:00 Memori al [place] Systolic (mm Hg) 2018-10-22 04:28:00 Inder rial [place] Diastolic (mm Hg) 2018-10-22 04:28:00 Mem orial [place] Temperature Oral (F) 2018-10-22 04:28:00 98 F [facility] [place] Heart Rate 2018-10-22 04:28:00 54 /min [facility] [place] Respitory Rate 2018-10-22 04:28:00 Memori al [place] Systolic (mm Hg) 2018-10-21 19:04:00 Inder rial [place] Diastolic (mm Hg) 2018-10-21 19:04:00 Mem orial [place] Temperature Oral (F) 2018-10-21 19:04:00 97 F [facility] [place] Heart Rate 2018-10-21 19:04:00 60 /min [facility] [place] Respitory Rate 2018-10-21 19:04:00 Memori al [place] Systolic (mm Hg) 2018-10-21 11:27:00 Inder rial [place] Diastolic (mm Hg) 2018-10-21 11:27:00 Mem orial [place] Temperature Oral (F) 2018-10-21 11:27:00 98.4 F [facility] [place] Heart Rate 2018-10-21 11:27:00 52 /min [facility] [place] Respitory Rate 2018-10-21 11:27:00 Memori al [place] Systolic (mm Hg) 2018-10-21 03:38:00 Inder rial [place] Diastolic (mm Hg) 2018-10-21 03:38:00 Mem orial [place] Temperature Oral (F) 2018-10-21 03:38:00 98 F [facility] [place] Heart Rate 2018-10-21 03:38:00 52 /min [facility] [place] Respitory Rate 2018-10-21 03:38:00 [facility] Systolic (mm Hg) 2018-10-20 22:12:00 [facility] [place] Diastolic (mm Hg) 2018-10-20 22:12:00 [facility] [place] Temperature Oral (F) 2018-10-20 22:12:00 98.6 F [facility] Heart Rate 2018-10-20 22:12:00 74 /min [facility] [place] Respitory Rate 2018-10-20 22:12:00 [facility] Systolic (mm Hg) 2018-10-20 17:59:00 [facility] [place] Diastolic (mm Hg) 2018-10-20 17:59:00 [facility] [place] Temperature Oral (F) 2018-10-20 17:59:00 98.2 F [facility] Heart Rate 2018-10-20 17:59:00 69 /min [facility] [place] Respitory Rate 2018-10-20 17:59:00 [facility] Weight 2018-10-20 16:24:05 [facility] [place] Systolic (mm Hg) 2018-10-20 03:36:00 [facility] [place] Diastolic (mm Hg) 2018-10-20 03:36:00 [facility] [place] Temperature Oral (F) 2018-10-20 03:36:00 98.4 F [facility] [place] Heart Rate 2018-10-20 03:36:00 51 /min [facility] [place] Respitory Rate 2018-10-20 03:36:00 [facility] [place] Systolic (mm Hg) 2018-10-19 18:45:00 [facility] [place] Diastolic (mm Hg) 2018-10-19 18:45:00 [facility] [place] Temperature Oral (F) 2018-10-19 18:45:00 97 F [facility] [place] Heart Rate 2018-10-19 18:45:00 65 /min [facility] Respitory Rate 2018-10-19 18:45:00 [facility] [place] Systolic (mm Hg) 2018-10-19 11:44:00 [facility] [place] Diastolic (mm Hg) 2018-10-19 11:44:00 [facility] [place] Temperature Oral (F) 2018-10-19 11:44:00 97.2 F [facility] Heart Rate 2018-10-19 11:44:00 61 /min [facility] [place] Respitory Rate 2018-10-19 11:44:00 [facility] [place] Systolic (mm Hg) 2018-10-19 09:15:00 [facility] [place] Diastolic (mm Hg) 2018-10-19 09:15:00 [facility] [place] Temperature Oral (F) 2018-10-19 09:15:00 98.6 F [facility] Heart Rate 2018-10-19 09:15:00 56 /min [facility] [place] Respitory Rate 2018-10-19 09:15:00 [facility] [place] Systolic (mm Hg) 2018-10-18 19:57:00 [facility] [place] Diastolic (mm Hg) 2018-10-18 19:57:00 [facility] Temperature Oral (F) 2018-10-18 19:57:00 99.1 F [facility] [place] Heart Rate 2018-10-18 19:57:00 60 /min [facility] Respitory Rate 2018-10-18 19:57:00 [facility] [place] Systolic (mm Hg) 2018-10-18 05:51:00 [facility] [place] Diastolic (mm Hg) 2018-10-18 05:51:00 [facility] [place] Temperature Oral (F) 2018-10-18 05:51:00 98.7 F [facility] Heart Rate 2018-10-18 05:51:00 57 /min [facility] Respitory Rate 2018-10-18 05:51:00 [facility] [place] Systolic (mm Hg) 2018-10-17 20:12:00 [facility] [place] Diastolic (mm Hg) 2018-10-17 20:12:00 [facility] [place] Temperature Oral (F) 2018-10-17 20:12:00 97 F [facility] Heart Rate 2018-10-17 20:12:00 56 /min [facility] Respitory Rate 2018-10-17 20:12:00 [facility] Systolic (mm Hg) 2018-10-17 04:21:00 [facility] [place] Diastolic (mm Hg) 2018-10-17 04:21:00 [facility] [place] Temperature Oral (F) 2018-10-17 04:21:00 97.8 F [facility] Heart Rate 2018-10-17 04:21:00 59 /min [facility] Respitory Rate 2018-10-17 04:21:00 [facility] [place] Systolic (mm Hg) 2018-10-16 18:56:00 [facility] [place] Diastolic (mm Hg) 2018-10-16 18:56:00 [facility] [place] Temperature Oral (F) 2018-10-16 18:56:00 97 F [facility] Heart Rate 2018-10-16 18:56:00 70 /min [facility] Respitory Rate 2018-10-16 18:56:00 [facility] Systolic (mm Hg) 2018-10-16 05:26:00 [facility] [place] Diastolic (mm Hg) 2018-10-16 05:26:00 [facility] [place] Temperature Oral (F) 2018-10-16 05:26:00 98.6 F [facility] Heart Rate 2018-10-16 05:26:00 58 /min [facility] [place] Respitory Rate 2018-10-16 05:26:00 [facility] Weight 2018-10-15 17:47:00 [facility] Height 2018-10-15 16:15:00 [facility] Systolic (mm Hg) 2018-10-15 16:03:00 [facility] [place] Diastolic (mm Hg) 2018-10-15 16:03:00 [facility] [place] Temperature Oral (F) 2018-10-15 16:03:00 98.4 F [facility] Heart Rate 2018-10-15 16:03:00 48 /min [facility] [place] Respitory Rate 2018-10-15 16:03:00 [facility] Systolic (mm Hg) 2018-10-15 06:16:00 [facility] [place] Diastolic (mm Hg) 2018-10-15 06:16:00 [facility] [place] Temperature Oral (F) 2018-10-15 06:16:00 98.6 F [facility] [place] Heart Rate 2018-10-15 06:16:00 58 /min [facility] Respitory Rate 2018-10-15 06:16:00 [facility] [place] Systolic (mm Hg) 2018-10-14 18:41:00 [facility] [place] Diastolic (mm Hg) 2018-10-14 18:41:00 [facility] [place] Temperature Oral (F) 2018-10-14 18:41:00 97 F [facility] Heart Rate 2018-10-14 18:41:00 59 /min [facility] [place] Respitory Rate 2018-10-14 18:41:00 [facility] Systolic (mm Hg) 2018-10-14 11:44:00 [facility] [place] Diastolic (mm Hg) 2018-10-14 11:44:00 [facility] Temperature Oral (F) 2018-10-14 11:44:00 97.7 F [facility] Heart Rate 2018-10-14 11:44:00 44 /min [facility] [place] Respitory Rate 2018-10-14 11:44:00 [facility] Systolic (mm Hg) 2018-10-14 05:50:00 [facility] [place] Diastolic (mm Hg) 2018-10-14 05:50:00 [facility] [place] Temperature Oral (F) 2018-10-14 05:50:00 98.2 F [facility] Heart Rate 2018-10-14 05:50:00 45 /min [facility] [place] Respitory Rate 2018-10-14 05:50:00 [facility] [place] Systolic (mm Hg) 2018-10-14 05:46:00 [facility] [place] Diastolic (mm Hg) 2018-10-14 05:46:00 [facility] [place] Temperature Oral (F) 2018-10-14 05:46:00 98 F [facility] Heart Rate 2018-10-14 05:46:00 72 /min [facility] Respitory Rate 2018-10-14 05:46:00 [facility] [place] Systolic (mm Hg) 2018-10-13 20:41:00 [facility] [place] Diastolic (mm Hg) 2018-10-13 20:41:00 [facility] Temperature Oral (F) 2018-10-13 20:41:00 97.8 F [facility] [place] Heart Rate 2018-10-13 20:41:00 75 /min [facility] [place] Respitory Rate 2018-10-13 20:41:00 [facility] [place] Systolic (mm Hg) 2018-10-13 05:10:00 [facility] [place] Diastolic (mm Hg) 2018-10-13 05:10:00 [facility] [place] Temperature Oral (F) 2018-10-13 05:10:00 98.2 F [facility] [place] Heart Rate 2018-10-13 05:10:00 52 /min [facility] Respitory Rate 2018-10-13 05:10:00 [facility] [place] Systolic (mm Hg) 2018-10-12 20:13:00 [facility] [place] Diastolic (mm Hg) 2018-10-12 20:13:00 [facility] [place] Temperature Oral (F) 2018-10-12 20:13:00 98.9 F [facility] Heart Rate 2018-10-12 20:13:00 65 /min [facility] [place] Respitory Rate 2018-10-12 20:13:00 [facility] [place] Systolic (mm Hg) 2018-10-12 04:07:00 [facility] [place] Diastolic (mm Hg) 2018-10-12 04:07:00 [facility] [place] Temperature Oral (F) 2018-10-12 04:07:00 98.9 F [facility] [place] Heart Rate 2018-10-12 04:07:00 60 /min [facility] [place] Respitory Rate 2018-10-12 04:07:00 [facility] [place] Systolic (mm Hg) 2018-10-11 19:38:00 [facility] [place] Diastolic (mm Hg) 2018-10-11 19:38:00 [facility] [place] Temperature Oral (F) 2018-10-11 19:38:00 97 F [facility] Rate 2018-10-11 19:38:00 54 /min [facility] [place] Respitory Rate 2018-10-11 19:38:00 [facility] [place] Systolic (mm Hg) 2018-10-11 11:23:00 [facility] [place] Diastolic (mm Hg) 2018-10-11 11:23:00 [facility] Temperature Oral (F) 2018-10-11 11:23:00 98.2 F [facility] Heart Rate 2018-10-11 11:23:00 50 /min [facility] [place] Respitory Rate 2018-10-11 11:23:00 [facility] [place] Systolic (mm Hg) 2018-10-11 04:56:00 [facility] [place] Diastolic (mm Hg) 2018-10-11 04:56:00 [facility] [place] Temperature Oral (F) 2018-10-11 04:56:00 98.7 F [facility] [place] Heart Rate 2018-10-11 04:56:00 62 /min [facility] [place] Respitory Rate 2018-10-11 04:56:00 [facility] [place] Systolic (mm Hg) 2018-10-10 18:27:00 [facility] [place] Diastolic (mm Hg) 2018-10-10 18:27:00 [facility] [place] Temperature Oral (F) 2018-10-10 18:27:00 97 F [facility] Heart Rate 2018-10-10 18:27:00 53 /min [facility] [place] Respitory Rate 2018-10-10 18:27:00 [facility] Systolic (mm Hg) 2018-10-10 15:17:00 [facility] [place] Diastolic (mm Hg) 2018-10-10 15:17:00 [facility] Temperature Oral (F) 2018-10-10 15:17:00 98.2 F [facility] Heart Rate 2018-10-10 15:17:00 50 /min [facility] Respitory Rate 2018-10-10 15:17:00 [facility] Systolic (mm Hg) 2018-10-10 04:27:00 [facility] [place] Diastolic (mm Hg) 2018-10-10 04:27:00 [facility] [place] Temperature Oral (F) 2018-10-10 04:27:00 98.6 F [facility] Heart Rate 2018-10-10 04:27:00 64 /min [facility] [place] Respitory Rate 2018-10-10 04:27:00 [facility] Systolic (mm Hg) 2018-10-09 19:57:00 [facility] [place] Diastolic (mm Hg) 2018-10-09 19:57:00 [facility] [place] Temperature Oral (F) 2018-10-09 19:57:00 98.6 F [facility] Heart Rate 2018-10-09 19:57:00 58 /min [facility] Respitory Rate 2018-10-09 19:57:00 [facility] [place] Systolic (mm Hg) 2018-10-09 03:42:00 [facility] [place] Diastolic (mm Hg) 2018-10-09 03:42:00 [facility] Temperature Oral (F) 2018-10-09 03:42:00 98.7 F [facility] [place] Heart Rate 2018-10-09 03:42:00 60 /min [facility] [place] Respitory Rate 2018-10-09 03:42:00 [facility] [place] Systolic (mm Hg) 2018-10-08 18:57:00 [facility] [place] Diastolic (mm Hg) 2018-10-08 18:57:00 [facility] [place] Temperature Oral (F) 2018-10-08 18:57:00 97 F [facility] [place] Heart Rate 2018-10-08 18:57:00 69 /min [facility] [place] Respitory Rate 2018-10-08 18:57:00 [facility] Systolic (mm Hg) 2018-10-08 13:47:00 [facility] [place] Diastolic (mm Hg) 2018-10-08 13:47:00 [facility] [place] Temperature Oral (F) 2018-10-08 13:47:00 98.4 F [facility] [place] Heart Rate 2018-10-08 13:47:00 50 /min [facility] [place] Respitory Rate 2018-10-08 13:47:00 [facility] Systolic (mm Hg) 2018-10-08 11:28:36 [facility] [place] Diastolic (mm Hg) 2018-10-08 11:28:36 [facility] Heart Rate 2018-10-08 11:28:36 50 /min [facility] Systolic (mm Hg) 2018-10-08 05:22:00 [facility] [place] Diastolic (mm Hg) 2018-10-08 05:22:00 [facility] [place] Temperature Oral (F) 2018-10-08 05:22:00 98.2 F [facility] Heart Rate 2018-10-08 05:22:00 62 /min [facility] Respitory Rate 2018-10-08 05:22:00 [facility] [place] Systolic (mm Hg) 2018-10-07 19:00:00 [facility] [place] Diastolic (mm Hg) 2018-10-07 19:00:00 [facility] [place] Temperature Oral (F) 2018-10-07 19:00:00 97 F [facility] [place] Heart Rate 2018-10-07 19:00:00 64 /min [facility] Respitory Rate 2018-10-07 19:00:00 [facility] [place] Systolic (mm Hg) 2018-10-07 16:55:00 [facility] [place] Diastolic (mm Hg) 2018-10-07 16:55:00 [facility] [place] Temperature Oral (F) 2018-10-07 16:55:00 98.2 F [facility] [place] Heart Rate 2018-10-07 16:55:00 49 /min [facility] [place] Respitory Rate 2018-10-07 16:55:00 [facility] Systolic (mm Hg) 2018-10-07 12:16:59 [facility] [place] Diastolic (mm Hg) 2018-10-07 12:16:59 [facility] [place] Heart Rate 2018-10-07 12:16:59 49 /min [facility] [place] Systolic (mm Hg) 2018-10-07 03:55:00 [facility] [place] Diastolic (mm Hg) 2018-10-07 03:55:00 [facility] Temperature Oral (F) 2018-10-07 03:55:00 98.2 F [facility] [place] Heart Rate 2018-10-07 03:55:00 60 /min [facility] [place] Respitory Rate 2018-10-07 03:55:00 [facility] Systolic (mm Hg) 2018-10-06 12:16:00 [facility] [place] Diastolic (mm Hg) 2018-10-06 12:16:00 [facility] Temperature Oral (F) 2018-10-06 12:16:00 98.6 F [facility] Heart Rate 2018-10-06 12:16:00 50 /min [facility] Respitory Rate 2018-10-06 12:16:00 [facility] Systolic (mm Hg) 2018-10-06 12:05:38 [facility] Diastolic (mm Hg) 2018-10-06 12:05:38 [facility] [place] Heart Rate 2018-10-06 12:05:38 50 /min [facility] [place] Systolic (mm Hg) 2018-10-06 04:06:00 [facility] [place] Diastolic (mm Hg) 2018-10-06 04:06:00 [facility] [place] Temperature Oral (F) 2018-10-06 04:06:00 98.4 F [facility] [place] Heart Rate 2018-10-06 04:06:00 62 /min [facility] [place] Respitory Rate 2018-10-06 04:06:00 [facility] [place] Systolic (mm Hg) 2018-10-05 05:22:00 [facility] [place] Diastolic (mm Hg) 2018-10-05 05:22:00 [facility] Temperature Oral (F) 2018-10-05 05:22:00 98.6 F [facility] [place] Heart Rate 2018-10-05 05:22:00 58 /min [facility] Respitory Rate 2018-10-05 05:22:00 [facility] Systolic (mm Hg) 2018-10-04 20:45:00 [facility] [place] Diastolic (mm Hg) 2018-10-04 20:45:00 [facility] [place] Temperature Oral (F) 2018-10-04 20:45:00 98.6 F [facility] Heart Rate 2018-10-04 20:45:00 53 /min [facility] [place] Respitory Rate 2018-10-04 20:45:00 [facility] [place] Systolic (mm Hg) 2018-10-04 13:31:47 [facility] [place] Diastolic (mm Hg) 2018-10-04 13:31:47 [facility] [place] Heart Rate 2018-10-04 13:31:47 44 /min [facility] [place] Systolic (mm Hg) 2018-10-04 05:03:00 [facility] [place] Diastolic (mm Hg) 2018-10-04 05:03:00 [facility] Temperature Oral (F) 2018-10-04 05:03:00 98.7 F [facility] Heart Rate 2018-10-04 05:03:00 58 /min [facility] [place] Respitory Rate 2018-10-04 05:03:00 [facility] Diastolic (mm Hg) 2018-10-03 19:43:00 [facility] Temperature Oral (F) 2018-10-03 19:43:00 97 F [facility] Heart Rate 2018-10-03 19:43:00 62 /min [facility] [place] Respitory Rate 2018-10-03 19:43:00 [facility] Systolic (mm Hg) 2018-10-03 19:43:00 [facility] [place] Systolic (mm Hg) 2018-10-03 12:54:02 [facility] [place] Diastolic (mm Hg) 2018-10-03 12:54:02 [facility] Heart Rate 2018-10-03 12:54:02 58 /min [facility] [place] Systolic (mm Hg) 2018-10-03 05:20:00 [facility] [place] Diastolic (mm Hg) 2018-10-03 05:20:00 [facility] Temperature Oral (F) 2018-10-03 05:20:00 98.6 F [facility] Heart Rate 2018-10-03 05:20:00 50 /min [facility] Respitory Rate 2018-10-03 05:20:00 [facility] [place] Systolic (mm Hg) 2018-10-02 20:13:00 [facility] [place] Diastolic (mm Hg) 2018-10-02 20:13:00 [facility] [place] Temperature Oral (F) 2018-10-02 20:13:00 98.9 F [facility] [place] Heart Rate 2018-10-02 20:13:00 52 /min [facility] [place] Respitory Rate 2018-10-02 20:13:00 [facility] [place] Systolic (mm Hg) 2018-10-02 15:42:00 [facility] [place] Diastolic (mm Hg) 2018-10-02 15:42:00 [facility] [place] Temperature Oral (F) 2018-10-02 15:42:00 98.6 F [facility] [place] Heart Rate 2018-10-02 15:42:00 53 /min [facility] [place] Respitory Rate 2018-10-02 15:42:00 [facility] Systolic (mm Hg) 2018-10-02 13:39:16 [facility] [place] Diastolic (mm Hg) 2018-10-02 13:39:16 [facility] Heart Rate 2018-10-02 13:39:16 53 /min [facility] Systolic (mm Hg) 2018-10-02 07:17:00 [facility] [place] Diastolic (mm Hg) 2018-10-02 07:17:00 [facility] [place] Temperature Oral (F) 2018-10-02 07:17:00 98.2 F [facility] Heart Rate 2018-10-02 07:17:00 58 /min [facility] [place] Respitory Rate 2018-10-02 07:17:00 [facility] Systolic (mm Hg) 2018-10-02 00:57:00 [facility] [place] Diastolic (mm Hg) 2018-10-02 00:57:00 [facility] [place] Temperature Oral (F) 2018-10-02 00:57:00 98.7 F [facility] [place] Respitory Rate 2018-10-02 00:57:00 [facility] Heart Rate 2018-10-02 00:57:00 57 /min [facility] Weight 2018-10-01 23:47:00 [facility] [place] Respitory Rate 2017-07-26 10:42:00 [facility] Systolic (mm Hg) 2017-07-26 10:42:00 [facility] [place] Diastolic (mm Hg) 2017-07-26 10:42:00 [facility] [place] Temperature Oral (F) 2017-07-26 10:42:00 97.8 F [facility] Heart Rate 2017-07-26 10:42:00 69 /min [facility] [place] Systolic (mm Hg) 2017-07-26 05:12:00 [facility] [place] Diastolic (mm Hg) 2017-07-26 05:12:00 [facility] [place] Temperature Oral (F) 2017-07-26 05:12:00 97.8 F [facility] Heart Rate 2017-07-26 05:12:00 68 /min [facility] Respitory Rate 2017-07-26 05:12:00 [facility] [place] Systolic (mm Hg) 2017-07-25 10:55:00 [facility] [place] Diastolic (mm Hg) 2017-07-25 10:55:00 [facility] Temperature Oral (F) 2017-07-25 10:55:00 98.4 F [facility] Heart Rate 2017-07-25 10:55:00 86 /min [facility] Respitory Rate 2017-07-25 10:55:00 [facility] Systolic (mm Hg) 2017-07-25 04:51:00 [facility] [place] Diastolic (mm Hg) 2017-07-25 04:51:00 [facility] [place] Temperature Oral (F) 2017-07-25 04:51:00 97.8 F [facility] [place] Heart Rate 2017-07-25 04:51:00 67 /min [facility] Respitory Rate 2017-07-25 04:51:00 [facility] Systolic (mm Hg) 2017-07-24 21:09:00 [facility] [place] Diastolic (mm Hg) 2017-07-24 21:09:00 [facility] Temperature Oral (F) 2017-07-24 21:09:00 99.1 F [facility] Heart Rate 2017-07-24 21:09:00 81 /min [facility] [place] Respitory Rate 2017-07-24 21:09:00 [facility] Systolic (mm Hg) 2017-07-24 15:25:00 [facility] [place] Diastolic (mm Hg) 2017-07-24 15:25:00 [facility] [place] Temperature Oral (F) 2017-07-24 15:25:00 98.6 F [facility] Heart Rate 2017-07-24 15:25:00 95 /min [facility] [place] Respitory Rate 2017-07-24 15:25:00 [facility] [place] Systolic (mm Hg) 2017-07-24 09:38:00 [facility] [place] Diastolic (mm Hg) 2017-07-24 09:38:00 [facility] [place] Temperature Oral (F) 2017-07-24 09:38:00 98 F [facility] Heart Rate 2017-07-24 09:38:00 82 /min [facility] [place] Respitory Rate 2017-07-24 09:38:00 [facility] Systolic (mm Hg) 2017-07-24 01:29:00 [facility] [place] Diastolic (mm Hg) 2017-07-24 01:29:00 [facility] Temperature Oral (F) 2017-07-24 01:29:00 98 F [facility] Heart Rate 2017-07-24 01:29:00 75 /min [facility] Respitory Rate 2017-07-24 01:29:00 [facility] [place] Systolic (mm Hg) 2017-07-23 10:35:00 [facility] Diastolic (mm Hg) 2017-07-23 10:35:00 [facility] [place] Temperature Oral (F) 2017-07-23 10:35:00 99.8 F [facility] Heart Rate 2017-07-23 10:35:00 83 /min [facility] Respitory Rate 2017-07-23 10:35:00 [facility] [place] Systolic (mm Hg) 2017-07-22 18:11:00 [facility] [place] Diastolic (mm Hg) 2017-07-22 18:11:00 [facility] [place] Temperature Oral (F) 2017-07-22 18:11:00 98.2 F [facility] [place] Heart Rate 2017-07-22 18:11:00 70 /min [facility] [place] Respitory Rate 2017-07-22 18:11:00 [facility] [place] Systolic (mm Hg) 2017-07-22 10:50:00 [facility] [place] Diastolic (mm Hg) 2017-07-22 10:50:00 [facility] [place] Temperature Oral (F) 2017-07-22 10:50:00 98 F [facility] [place] Heart Rate 2017-07-22 10:50:00 62 /min [facility] Respitory Rate 2017-07-22 10:50:00 [facility] [place] Systolic (mm Hg) 2017-07-21 18:56:00 [facility] [place] Diastolic (mm Hg) 2017-07-21 18:56:00 [facility] [place] Temperature Oral (F) 2017-07-21 18:56:00 97.7 F [facility] [place] Heart Rate 2017-07-21 18:56:00 67 /min [facility] [place] Respitory Rate 2017-07-21 18:56:00 [facility] [place] Systolic (mm Hg) 2017-07-21 10:51:00 [facility] Diastolic (mm Hg) 2017-07-21 10:51:00 [facility] [place] Temperature Oral (F) 2017-07-21 10:51:00 97.7 F [facility] [place] Heart Rate 2017-07-21 10:51:00 74 /min [facility] [place] Respitory Rate 2017-07-21 10:51:00 [facility] [place] Systolic (mm Hg) 2017-07-20 20:03:00 [facility] [place] Diastolic (mm Hg) 2017-07-20 20:03:00 [facility] Temperature Oral (F) 2017-07-20 20:03:00 98.6 F [facility] [place] Heart Rate 2017-07-20 20:03:00 83 /min [facility] Respitory Rate 2017-07-20 20:03:00 [facility] [place] Systolic (mm Hg) 2017-07-20 17:57:00 [facility] [place] Diastolic (mm Hg) 2017-07-20 17:57:00 [facility] Temperature Oral (F) 2017-07-20 17:57:00 97.8 F [facility] [place] Heart Rate 2017-07-20 17:57:00 82 /min [facility] [place] Respitory Rate 2017-07-20 17:57:00 [facility] Systolic (mm Hg) 2017-07-20 05:53:00 [facility] Diastolic (mm Hg) 2017-07-20 05:53:00 [facility] [place] Temperature Oral (F) 2017-07-20 05:53:00 97.3 F [facility] Heart Rate 2017-07-20 05:53:00 63 /min [facility] Respitory Rate 2017-07-20 05:53:00 [facility] Systolic (mm Hg) 2017-07-19 19:09:00 [facility] Diastolic (mm Hg) 2017-07-19 19:09:00 [facility] [place] Temperature Oral (F) 2017-07-19 19:09:00 98.4 F [facility] [place] Heart Rate 2017-07-19 19:09:00 88 /min [facility] Respitory Rate 2017-07-19 19:09:00 [facility] Systolic (mm Hg) 2017-07-19 12:57:00 [facility] Diastolic (mm Hg) 2017-07-19 12:57:00 [facility] Temperature Oral (F) 2017-07-19 12:57:00 98.7 F [facility] [place] Heart Rate 2017-07-19 12:57:00 87 /min [facility] Respitory Rate 2017-07-19 12:57:00 [facility] Systolic (mm Hg) 2017-07-19 05:19:00 [facility] [place] Diastolic (mm Hg) 2017-07-19 05:19:00 [facility] [place] Temperature Oral (F) 2017-07-19 05:19:00 98.1 F [facility] Heart Rate 2017-07-19 05:19:00 73 /min [facility] Respitory Rate 2017-07-19 05:19:00 [facility] Systolic (mm Hg) 2017-07-18 19:56:00 [facility] Diastolic (mm Hg) 2017-07-18 19:56:00 [facility] Temperature Oral (F) 2017-07-18 19:56:00 99.6 F [facility] Heart Rate 2017-07-18 19:56:00 78 /min [facility] Respitory Rate 2017-07-18 19:56:00 [facility] [place] Systolic (mm Hg) 2017-07-18 17:23:00 [facility] [place] Diastolic (mm Hg) 2017-07-18 17:23:00 [facility] [place] Temperature Oral (F) 2017-07-18 17:23:00 98.2 F [facility] Heart Rate 2017-07-18 17:23:00 88 /min [facility] Respitory Rate 2017-07-18 17:23:00 [facility] Systolic (mm Hg) 2017-07-18 06:56:00 [facility] Diastolic (mm Hg) 2017-07-18 06:56:00 [facility] [place] Temperature Oral (F) 2017-07-18 06:56:00 98.7 F [facility] Heart Rate 2017-07-18 06:56:00 77 /min [facility] Respitory Rate 2017-07-18 06:56:00 [facility] Systolic (mm Hg) 2017-07-17 19:07:00 [facility] Diastolic (mm Hg) 2017-07-17 19:07:00 [facility] [place] Temperature Oral (F) 2017-07-17 19:07:00 98.4 F [facility] Heart Rate 2017-07-17 19:07:00 74 /min [facility] Respitory Rate 2017-07-17 19:07:00 [facility] [place] Systolic (mm Hg) 2017-07-17 05:03:00 [facility] Diastolic (mm Hg) 2017-07-17 05:03:00 [facility] [place] Temperature Oral (F) 2017-07-17 05:03:00 98.2 F [facility] Heart Rate 2017-07-17 05:03:00 66 /min [facility] Respitory Rate 2017-07-17 05:03:00 [facility] [place] Systolic (mm Hg) 2017-07-16 19:13:00 [facility] Diastolic (mm Hg) 2017-07-16 19:13:00 [facility] [place] Temperature Oral (F) 2017-07-16 19:13:00 98.2 F [facility] [place] Heart Rate 2017-07-16 19:13:00 78 /min [facility] Respitory Rate 2017-07-16 19:13:00 [facility] Systolic (mm Hg) 2017-07-16 14:01:00 [facility] Diastolic (mm Hg) 2017-07-16 14:01:00 [facility] Temperature Oral (F) 2017-07-16 14:01:00 98.7 F [facility] Heart Rate 2017-07-16 14:01:00 77 /min [facility] Respitory Rate 2017-07-16 14:01:00 [facility] [place] Systolic (mm Hg) 2017-07-16 03:51:00 [facility] Diastolic (mm Hg) 2017-07-16 03:51:00 [facility] Temperature Oral (F) 2017-07-16 03:51:00 98 F [facility] Heart Rate 2017-07-16 03:51:00 68 /min [facility] Respitory Rate 2017-07-16 03:51:00 [facility] [place] Systolic (mm Hg) 2017-07-15 20:14:00 [facility] [place] Diastolic (mm Hg) 2017-07-15 20:14:00 [facility] [place] Temperature Oral (F) 2017-07-15 20:14:00 98.2 F [facility] Heart Rate 2017-07-15 20:14:00 85 /min [facility] Respitory Rate 2017-07-15 20:14:00 [facility] Systolic (mm Hg) 2017-07-15 10:42:00 Inder [facility] [place] Diastolic (mm Hg) 2017-07-15 10:42:00 [facility] [place] Temperature Oral (F) 2017-07-15 10:42:00 98.4 F [facility] [place] Heart Rate 2017-07-15 10:42:00 72 /min [facility] [place] Respitory Rate 2017-07-15 10:42:00 [facility] [place] Systolic (mm Hg) 2017-07-15 04:08:00 Inder [facility] [place] Diastolic (mm Hg) 2017-07-15 04:08:00 [facility] [place] Temperature Oral (F) 2017-07-15 04:08:00 98.6 F [facility] [place] Heart Rate 2017-07-15 04:08:00 75 /min [facility] 2017-07-15 04:08:00 [facility] [place] Systolic (mm Hg) 2017-07-14 19:32:00 [facility] [place] Diastolic (mm Hg) 2017-07-14 19:32:00 [facility] Temperature Oral (F) 2017-07-14 19:32:00 98.6 F [facility] Heart Rate 2017-07-14 19:32:00 75 /min [facility] Respitory Rate 2017-07-14 19:32:00 [facility] [place] Systolic (mm Hg) 2017-07-14 12:46:00 [facility] [place] Diastolic (mm Hg) 2017-07-14 12:46:00 [facility] [place] Temperature Oral (F) 2017-07-14 12:46:00 97.8 F [facility] [place] Heart Rate 2017-07-14 12:46:00 64 /min [facility] Respitory Rate 2017-07-14 12:46:00 [facility] [place] Systolic (mm Hg) 2017-07-14 04:14:00 [facility] Diastolic (mm Hg) 2017-07-14 04:14:00 [facility] [place] Temperature Oral (F) 2017-07-14 04:14:00 98.4 F [facility] Heart Rate 2017-07-14 04:14:00 81 /min [facility] Respitory Rate 2017-07-14 04:14:00 [facility] [place] Systolic (mm Hg) 2017-07-13 20:54:00 [facility] [place] Diastolic (mm Hg) 2017-07-13 20:54:00 [facility] [place] Temperature Oral (F) 2017-07-13 20:54:00 98.7 F [facility] [place] Heart Rate 2017-07-13 20:54:00 73 /min [facility] [place] Respitory Rate 2017-07-13 20:54:00 [facility] [place] Systolic (mm Hg) 2017-07-13 14:09:00 [facility] [place] Diastolic (mm Hg) 2017-07-13 14:09:00 [facility] [place] Temperature Oral (F) 2017-07-13 14:09:00 98.2 F [facility] Heart Rate 2017-07-13 14:09:00 71 /min [facility] [place] Respitory Rate 2017-07-13 14:09:00 [facility] [place] Systolic (mm Hg) 2017-07-13 04:08:00 [facility] [place] Diastolic (mm Hg) 2017-07-13 04:08:00 [facility] [place] Temperature Oral (F) 2017-07-13 04:08:00 97.9 F [facility] [place] Heart Rate 2017-07-13 04:08:00 79 /min [facility] Resp[facility] Rate 2017-07-13 04:08:00 [facility] [place] Systolic (mm Hg) 2017-07-12 19:29:00 [facility] [place] Diastolic (mm Hg) 2017-07-12 19:29:00 [facility] Temperature Oral (F) 2017-07-12 19:29:00 98.9 F [facility] [place] Heart Rate 2017-07-12 19:29:00 81 /min [facility] Respitory Rate 2017-07-12 19:29:00 [facility] [place] Systolic (mm Hg) 2017-07-12 14:02:00 [facility] [place] Diastolic (mm Hg) 2017-07-12 14:02:00 [facility] Temperature Oral (F) 2017-07-12 14:02:00 98 F [facility] Heart Rate 2017-07-12 14:02:00 60 /min [facility] [place] Respitory Rate 2017-07-12 14:02:00 [facility] [place] Systolic (mm Hg) 2017-07-12 03:57:00 [facility] [place] Diastolic (mm Hg) 2017-07-12 03:57:00 [facility] Temperature Oral (F) 2017-07-12 03:57:00 98.2 F [facility] Heart Rate 2017-07-12 03:57:00 79 /min [facility] Respitory Rate 2017-07-12 03:57:00 [facility] [place] Systolic (mm Hg) 2017-07-11 19:48:00 [facility] Diastolic (mm Hg) 2017-07-11 19:48:00 [facility] [place] Temperature Oral (F) 2017-07-11 19:48:00 98.9 F [facility] [place] Heart Rate 2017-07-11 19:48:00 72 /min [facility] Respitory Rate 2017-07-11 19:48:00 [facility] [place] Systolic (mm Hg) 2017-07-11 15:18:00 [facility] [place] Diastolic (mm Hg) 2017-07-11 15:18:00 [facility] [place] Temperature Oral (F) 2017-07-11 15:18:00 97.8 F [facility] [place] Heart Rate 2017-07-11 15:18:00 76 /min [facility] Respitory Rate 2017-07-11 15:18:00 [facility] [place] Systolic (mm Hg) 2017-07-10 23:55:00 [facility] [place] Diastolic (mm Hg) 2017-07-10 23:55:00 [facility] [place] Temperature Oral (F) 2017-07-10 23:55:00 98.4 F [facility] Heart Rate 2017-07-10 23:55:00 83 /min [facility] [place] Respitory Rate 2017-07-10 23:55:00 [facility] [place] Systolic (mm Hg) 2017-07-10 14:36:00 [facility] [place] Diastolic (mm Hg) 2017-07-10 14:36:00 [facility] [place] Temperature Oral (F) 2017-07-10 14:36:00 98.4 F [facility] Heart Rate 2017-07-10 14:36:00 63 /min [facility] [place] Respitory Rate 2017-07-10 14:36:00 [facility] [place] Systolic (mm Hg) 2017-07-10 05:24:00 [facility] Diastolic (mm Hg) 2017-07-10 05:24:00 [facility] [place] Temperature Oral (F) 2017-07-10 05:24:00 97.8 F [facility] [place] Heart Rate 2017-07-10 05:24:00 74 /min [facility] Respitory Rate 2017-07-10 05:24:00 [facility] [place] Systolic (mm Hg) 2017-07-09 19:44:00 [facility] [place] Diastolic (mm Hg) 2017-07-09 19:44:00 [facility] [place] Temperature Oral (F) 2017-07-09 19:44:00 100.2 F [facility] [place] Heart Rate 2017-07-09 19:44:00 87 /min [facility] Respitory Rate 2017-07-09 19:44:00 [facility] [place] Systolic (mm Hg) 2017-07-09 12:32:00 [facility] [place] Diastolic (mm Hg) 2017-07-09 12:32:00 [facility] [place] Temperature Oral (F) 2017-07-09 12:32:00 98.4 F [facility] [place] Heart Rate 2017-07-09 12:32:00 73 /min [facility] [place] Respitory Rate 2017-07-09 12:32:00 [facility] [place] Systolic (mm Hg) 2017-07-09 05:54:00 [facility] [place] Diastolic (mm Hg) 2017-07-09 05:54:00 [facility] [place] Temperature Oral (F) 2017-07-09 05:54:00 98.7 F [facility] Heart Rate 2017-07-09 05:54:00 66 /min [facility] Resp[facility] Rate 2017-07-09 05:54:00 [facility] [place] Systolic (mm Hg) 2017-07-08 19:00:00 [facility] [place] Diastolic (mm Hg) 2017-07-08 19:00:00 [facility] [place] Temperature Oral (F) 2017-07-08 19:00:00 99.1 F [facility] [place] Heart Rate 2017-07-08 19:00:00 85 /min [facility] [place] Respitory Rate 2017-07-08 19:00:00 [facility] [place] Systolic (mm Hg) 2017-07-08 16:07:00 [facility] [place] Diastolic (mm Hg) 2017-07-08 16:07:00 [facility] [place] Temperature Oral (F) 2017-07-08 16:07:00 99.1 F [facility] Heart Rate 2017-07-08 16:07:00 68 /min [facility] [place] Respitory Rate 2017-07-08 16:07:00 [facility] [place] Weight 2017-07-08 13:58:00 [facility] [place] Systolic (mm Hg) 2017-07-08 06:04:00 [facility] [place] Diastolic (mm Hg) 2017-07-08 06:04:00 [facility] [place] Temperature Oral (F) 2017-07-08 06:04:00 97.3 F [facility] [place] Heart Rate 2017-07-08 06:04:00 77 /min [facility] [place] Respitory Rate 2017-07-08 06:04:00 [facility] [place] Systolic (mm Hg) 2017-07-07 19:42:00 Inder rial [...] Oral (F) 2017-07-07 10:39:00 98.4 F [facility] [place] Heart Rate 2017-07-07 10:39:00 59 /min [facility] Rate 2017-07-07 10:39:00 [facility] [place] Systolic (mm Hg) 2017-07-07 01:02:00 [facility] [place] Diastolic (mm Hg) 2017-07-07 01:02:00 [facility] Temperature Oral (F) 2017-07-07 01:02:00 100.7 F [facility] Heart Rate 2017-07-07 01:02:00 86 /min [facility] Resp[facility] Rate 2017-07-07 01:02:00 [facility] [place] Systolic (mm Hg) 2017-07-06 13:21:00 [facility] Diastolic (mm Hg) 2017-07-06 13:21:00 [facility] [place] Temperature Oral (F) 2017-07-06 13:21:00 98.7 F [facility] Heart Rate 2017-07-06 13:21:00 73 /min [facility] Respitory Rate 2017-07-06 13:21:00 [facility] [place] Systolic (mm Hg) 2017-07-06 05:07:00 [facility] [place] Diastolic (mm Hg) 2017-07-06 05:07:00 [facility] [place] Temperature Oral (F) 2017-07-06 05:07:00 98.6 F [facility] [place] Heart Rate 2017-07-06 05:07:00 79 /min [facility] [place] Respitory Rate 2017-07-06 05:07:00 [facility] [place] Systolic (mm Hg) 2017-07-05 18:49:00 [facility] [place] Diastolic (mm Hg) 2017-07-05 18:49:00 [facility] [place] Temperature Oral (F) 2017-07-05 18:49:00 98.4 F [facility] Heart Rate 2017-07-05 18:49:00 78 /min [facility] [place] Respitory Rate 2017-07-05 18:49:00 [facility] [place] Systolic (mm Hg) 2017-07-05 16:26:00 [facility] [place] Diastolic (mm Hg) 2017-07-05 16:26:00 [facility] [place] Temperature Oral (F) 2017-07-05 16:26:00 98.6 F [facility] Heart Rate 2017-07-05 16:26:00 69 /min [facility] [place] Respitory Rate 2017-07-05 16:26:00 [facility] [place] Systolic (mm Hg) 2017-07-05 06:18:00 [facility] [place] Diastolic (mm Hg) 2017-07-05 06:18:00 [facility] [place] Temperature Oral (F) 2017-07-05 06:18:00 98.4 F [facility] Heart Rate 2017-07-05 06:18:00 72 /min [facility] Resp[facility] Rate 2017-07-05 06:18:00 [facility] [place] Systolic (mm Hg) 2017-07-04 19:40:00 [facility] [place] Diastolic (mm Hg) 2017-07-04 19:40:00 [facility] [place] Temperature Oral (F) 2017-07-04 19:40:00 98.4 F [facility] [place] Heart Rate 2017-07-04 19:40:00 78 /min [facility] [place] Respitory Rate 2017-07-04 19:40:00 [facility] [place] Systolic (mm Hg) 2017-07-04 17:31:00 [facility] [place] Diastolic (mm Hg) 2017-07-04 17:31:00 [facility] [place] Temperature Oral (F) 2017-07-04 17:31:00 98 F [facility] [place] Heart Rate 2017-07-04 17:31:00 71 /min [facility] [place] Respitory Rate 2017-07-04 17:31:00 [facility] [place] Systolic (mm Hg) 2017-07-04 13:01:54 [facility] [place] Diastolic (mm Hg) 2017-07-04 13:01:54 [facility] [place] Heart Rate 2017-07-04 13:01:54 71 /min [facility] [place] Systolic (mm Hg) 2017-07-04 05:14:00 [facility] [place] Diastolic (mm Hg) 2017-07-04 05:14:00 [facility] [place] Temperature Oral (F) 2017-07-04 05:14:00 98 F [facility] Heart Rate 2017-07-04 05:14:00 86 /min [facility] [place] Respitory Rate 2017-07-04 05:14:00 [facility] [place] Systolic (mm Hg) 2017-07-04 00:52:00 [facility] [place] Diastolic (mm Hg) 2017-07-04 00:52:00 [facility] [place] Systolic (mm Hg) 2017-07-03 23:48:00 [facility] [place] Diastolic (mm Hg) 2017-07-03 23:48:00 [facility] [place] Temperature Oral (F) 2017-07-03 23:48:00 98.6 F [facility] [place] Heart Rate 2017-07-03 23:48:00 83 /min [facility] Respitory Rate 2017-07-03 23:48:00 [facility] [place] Temperature Oral (F) 2017-07-03 20:46:00 98.6 F [facility] [place] Heart Rate 2017-07-03 20:46:00 83 /min [facility] [place] Respitory Rate 2017-07-03 20:46:00 [facility] [place] Height 2017-07-03 20:25:00 [facility] Weight 2016-01-03 18:30:00 [facility] Height 2016-01-03 18:30:00 [facility] Diastolic (mm Hg) 2016-01-03 18:30:00 [facility] [place] Systolic (mm Hg) 2016-01-03 18:30:00 In[facility] homarl [place] Weight 2015-10-04 19:00:00 [facility] [place] Height 2015-10-04 19:00:00 [facility] Diastolic (mm Hg) 2015-10-04 19:00:00 [facility] [place] Systolic (mm Hg) 2015-10-04 19:00:00 [facility] [place] Weight 2015-07-07 19:15:00 [facility] [place] Height 2015-07-07 19:15:00 [facility] Weight 2015-06-07 19:00:00 [facility] Height 2015-06-07 19:00:00 [facility] [place] Diastolic (mm Hg) 2015-06-07 19:00:00 [facility] [place] Systolic (mm Hg) 2015-06-07 19:00:00 In[facility] riaanali [place] Weight 2015-03-08 15:00:00 [facility] Height 2015-03-08 15:00:00 [facility] [place] Diastolic (mm Hg) 2015-03-08 15:00:00 [facility] [place] Systolic (mm Hg) 2015-03-08 15:00:00 [facility] [place] Weight 2015-01-04 22:30:00 [facility] Height 2015-01-04 22:30:00 [facility] [place] Diastolic (mm Hg) 2015-01-04 22:30:00 [facility] [place] Systolic (mm Hg) 2015-01-04 22:30:00 [facility] [place] Weight 2014-12-24 21:30:00 [facility] [place] Height 2014-12-24 21:30:00 [facility] Diastolic (mm Hg) 2014-12-24 21:30:00 [facility] [place] Systolic (mm Hg) 2014-12-24 21:30:00 [facility] riaanali [place] Weight 2014-11-05 14:30:00 [facility] Height 2014-11-05 14:30:00 [facility] [place] Diastolic (mm Hg) 2014-11-05 14:30:00 [facility] [place] Systolic (mm Hg) 2014-11-05 14:30:00 [facility] [place] Weight 2014-11-05 13:30:00 [facility] Height 2014-11-05 13:30:00 [facility] Diastolic (mm Hg) 2014-11-05 13:30:00 [facility] [place] Systolic (mm Hg) 2014-11-05 13:30:00 [facility] [place] Weight 2014-03-23 16:15:00 [facility] [place] Height 2014-03-23 16:15:00 [facility] [place] Diastolic (mm Hg) 2014-03-23 16:15:00 [facility] [place] Systolic (mm Hg) 2014-03-23 16:15:00 [facility] [place] Weight 2014-02-04 19:30:00 [facility] [place] Height 2014-02-04 19:30:00 [facility] [place] Diastolic (mm Hg) 2014-02-04 19:30:00 [facility] [place] Systolic (mm Hg) 2014-02-04 19:30:00 [facility] [place] Weight 2013-12-04 14:15:00 [facility] Height 2013-12-04 14:15:00 [facility] Diastolic (mm Hg) 2013-12-04 14:15:00 [facility] [place] Systolic (mm Hg) 2013-12-04 14:15:00 [facility] tiffanie [facility] Procedures Procedure Date / Time Performed Performing Clinician [facility] e mammogram 2007-04-03 20:53:01 [facility] shayla bone density 2005-02-13 19:44:42 [facility] mcguire Plan of Care Planned Activity Planned Date Details Comments Source Future Scheduled 2019-12-[address] [facility] Test 00:00:00 (#1) [code = Medical Center INFLUENZA VACCINE (#1)] Future Scheduled 2015-06-[address] [facility] 00:00:00 WELLNESS (YEAR [facility] or [facility] FIRST YEAR if no IPPE) [code = MEDICARE ANNUAL WELLNESS (YEAR 2 or FIRST YEAR if no IPPE)] Future Scheduled [address] [facility] 00:00:00 malignant neoplasm [facility] enter of breast (procedure) [code = 937046721] Future Scheduled [address] [facility] 00:00:00 malignant neoplasm [facility] enter of colon (procedure) [code = 917318750] Encounters Start End Encounter Admission Attending Care Care Encounter Source Date/Time Date/Time Type Type Clinicians Facility Department ID 2020-08-14 Outpatient [facility] [id number] [place] 03:01:03 [facility] 2018-09-24 2018-09-22 Inpatient E [facility] MED [id number] [facility] 16:43:00 13:56:00 2016-05-17 2016-05-17 Rx Sonya Fraser, [id number] 51-d [facility] 17:37:00 17:37:00 clarificat r Gaurav GRANT 583-4e7d-9 l ion [id number] [facility] nn 0dfa6f 2016-05-03 2016-05-03 refill nullFlavo Bria, 1rp264 91-1 [facility] 15:31:00 15:31:00 request r Gaurav GRANT 90c-4d9b-b l [id number]-222cad [facility] nn 9adf4c 2016-05-03 2016-05-03 refill nullNicko Bria, c53aff 5b-1 [facility] 15:31:00 15:31:00 request r Gaurav GRANT i83-8768-9 l 19e-828b33 [facility] nn 41dce9 2016-03-20 2016-03-20 refill nullFlavo Bria, kq050e e9-0 [facility] 18:57:00 18:57:00 request..k r Gaurav GRANT 1v6-6s21-r l z [id number] [facility] nn [id number] 2925-12-12 2016-03-20 refill nullNicko Bria, [id number] ea-e [facility] 18:57:00 18:57:00 request..k r Gaurav GRANT m92-8255-5 l z 5v2-065d91 [facility] nn 653fd6 2016-03-20 2016-03-20 refill nullFlavo Bria, 57e8d9 57-3 [facility] 18:57:00 18:57:00 request..k patti Nolasco MD g21-8860-9 l z ee9-6a7c82 Linda nn [id number] 3678-12-01 2016-03-09 REFILL nullFlavo Bria, [id number] c6-2 [facility] 20:08:00 20:08:00 REQUEST r Gaurav GRANT 905-4225-b l [id number] [facility] nn a5a2e9 2016-03-09 2016-03-09 REFILL nullFlavo Bria, fdcef4 53-b [facility] 20:08:00 20:08:00 REQUEST patti Nolasco MD 22b-46b8-a l 6t5-sx47x1 [facility] nn e8t784 2016-03-09 2016-03-09 REFILL nullFlavo Bria, 7ac9bc f9-8 [facility] 20:08:00 20:08:00 REQUEST patti Nolasco MD 23e-4586-8 l ecc-713cf6 [facility] nn 3eb5de 2016-03-09 2016-03-09 REFILL nullFlavo Bria, c8fd11 e2-0 [facility] 20:08:00 20:08:00 REQUEST patti Nolasco MD 725-4a2c-9 l baf-vh890l [facility] nn a15e6b 2016-01-03 2016-01-03 3 Months nullFlavo Bria, 7534e 763-7 [facility] 19:30:00 19:30:00 (Reason: patti Nolasco MD 17a-4c29-a l Thyroid , ff8-76302b Her mcguire Cholestero 2l361y l ) 2016-01-03 2016-01-03 3 Months nullFlavo Bria, aa97c df8-f [facility] 19:30:00 19:30:00 (Reason: patti Nolasco MD fa1-4387-b l Thyroid , 11d-aa62c3 Her mcgu[facility] Cholestero 34ac8d l ) 2016-01-03 2016-01-03 3 Months nullFlavo Bria, 3613e 86e-0 [facility] 19:30:00 19:30:00 (Reason: patti Nolasco MD c6o-3w9b-z l Thyroid , y09-85es7f Her [facility]gu[facility] Cholestero e5a0db l ) 2016-01-03 2016-01-03 3 Months nullFlavo Bria, 4449e 47e-a [facility] 19:30:00 19:30:00 (Reason: patti Nolasco MD 2a6-7733-v l Thyroid , cc5-960a28 Her [facility]cgu[facility] Cholestero 4086da l ) 2016-01-03 2016-01-03 3 Months nullFlavo Bria, 6a203 fa8-8 [facility] 18:30:00 18:30:00 (Reason: patti Nolasco MD 2ff-40df-9 l Thyroid , y68-v0359y Her [facility] Cholestero d76e66 l ) 2015-10-04 2015-10-04 3 Months nullFlavo Bria, e1015 332-3 [facility] 20:00:00 20:00:00 (Reason: patti Nolasco MD ea7-42b6-9 l HTn , ea6-b43786 Linda nn Thyroid 16c46e and cholestero l ) 2015-10-04 2015-10-04 3 Months nullFlavo Bria, df55e 51f-a [facility] 20:00:00 20:00:00 (Reason: patti Nolasco MD ec7-469b-b l HTn , r12-61odg8 Linda nn Thyroid 964199 and cholestero l ) 2015-10-04 2015-10-04 3 Months nullFlavo Bria, 6d134 17b-4 [facility] 20:00:00 20:00:00 (Reason: patti Nolasco MD 17a-498d-9 l HTn , 579-fddf90 Linda nn Thyroid 079579 and cholestero l ) 2015-10-04 2015-10-04 3 Months nullFlavo Bria, 8051e 85e-c [facility] 20:00:00 20:00:00 (Reason: patti Nolasco MD 321-4623-b l HTn , ce9-d8fb83 Linda nn Thyroid 3fffe9 and cholestero l ) 2015-10-04 2015-10-04 3 Months nullFlavo Bria, 8487a 7f8-f [facility] 19:00:00 19:00:00 (Reason: patti Nolasco MD 08f-4508-a l HTn , 1c1-082d6k Linda nn Thyroid pt3008 and cholestero l ) 2015-10-04 2015-10-04 3 Months nullFlavo Bria, 0f9d9 737-0 [facility] 19:00:00 19:00:00 (Reason: patti Nolasco MD 15b-4e5b-a l HTn , 7o6-d8ykp4 Linda nn Thyroid e6fbd7 and cholestero l ) 2015-07-07 2015-07-07 4 Weeks nullFlavo Bria, [id number] b9-9 [facility] 20:15:00 20:15:00 (Reason: patti Nolasco MD 72e-43c7-a l Blood ec6-243931 Linda nn pressure ) 308fe3 2015-07-07 2015-07-07 4 Weeks nullFlavo Bria, 9cd3e3 bf-1 [facility] 20:15:00 20:15:00 (Reason: patti Nolasco MD 7fe-4df3-a l Blood 4r7-3159w1 Linda nn pressure ) 0z2587 2015-07-07 2015-07-07 4 Weeks nullFlavo Bria, 97x413 24-8 [facility] 20:15:00 20:15:00 (Reason: patti Nolasco MD 0bf-4152-8 l Blood 750-397158 Linda nn pressure ) 76b0b4 2015-07-07 2015-07-07 4 Weeks nullFlavo Bria, 7b4f79 0f-e [facility] 20:15:00 20:15:00 (Reason: patti Nolasco MD o92-00jg-c l Blood 0ef-5640ff Linda nn pressure ) c708fa 2015-07-07 2015-07-07 4 Weeks nullFlavo Bria, 97o825 55-2 [facility] 19:15:00 19:15:00 (Reason: patti Nolasco MD 5cb-4adc-8 l Blood bab-s50091 Linda nn pressure ) ca8fd7 2015-07-07 2015-07-07 4 Weeks nullFlavo Bria, 9b9e1e a8-b [facility] 19:15:00 19:15:00 (Reason: patti Nolasco MD db5-426c-8 l Blood 772-5fc6dd Linda nn pressure ) 4cc51f 2015-07-07 2015-07-07 4 Weeks nullFlavo Bria, 96b6b9 a9-5 [facility] 19:15:00 19:15:00 (Reason: patti Nolasco MD 69a-4ec5-9 l Blood 08f-9e64e2 Linda nn pressure ) 6be5de 2015-06-07 2015-06-07 3m x nullFlavo Bria, 8r4663 bb-7 [facility] 20:00:00 20:00:00 thyroid patti Nolasco MD 1x9-62jz-2 l n80-3dk4d6 Linda nn 05b8dd 2015-06-07 2015-06-07 3m x nullFlavo Bria, wga835 8b-5 [facility] 20:00:00 20:00:00 thyroid r Gaurav GRANT 3p4-82cm-6 l 3h6-8wwv84 Linda nn c6a63d 2015-06-07 2015-06-07 3m x nullFlavo Bria, 7c97be 85-8 [facility] 20:00:00 20:00:00 thyroid patti Nolasco MD 6cf-4b9f-b l bfd-5545d2 Linda nn 8cf8c1 2015-06-07 2015-06-07 3m x nullFlavo Bria, go2407 1c-3 [facility] 20:00:00 20:00:00 thyroid patti Nolasco MD 4ab-40d3-8 l n5t-y96941 Ilnda nn cf7e1f 2015-06-07 2015-06-07 3m x nullFlavo Bria, 1215ed 22-f [facility] 19:00:00 19:00:00 thyroid patti Nolasco MD 81c-48e9-a l 021-5n462q Linda nn bd4c6c 2015-06-07 2015-06-07 3m x nullFlavo Bria, b27ca9 b9-e [facility] 19:00:00 19:00:00 thyroid r Gaurav GRANT 04a-4689-8 l 5ff-a93b4b Linda nn 36bb32 2015-06-07 2015-06-07 3m x nullFlavo Bria, 5021b4 89-c [facility] 19:00:00 19:00:00 thyroid patti Nolasco MD 940-489d-8 l ae8-2m796z Linda nn 84cf8c 2015-06-07 2015-06-07 3m x nullFlavo Bria, a64a79 ef-6 [facility] 19:00:00 19:00:00 thyroid patti Nolasco MD dc9-4127-a l o48-41509j Linda nn 89a870 2015-03-08 2015-03-08 4 Months nullFlavo Bria, 50149 1d3-6 [facility] 15:00:00 15:00:00 (Reason: patti Nolasco MD 312-46ee-8 l Thyroid 088-54b0eb Linda nn and 4214fc hyperlipid emia ) 2015-03-08 2015-03-08 4 Months nullFlavo Bria, 6ce1f 091-a [facility] 15:00:00 15:00:00 (Reason: patti Nolasco MD l4r-3u3b-7 l Thyroid s83-k70n46 Linda nn and 545f6c hyperlipid emia ) 2015-03-08 2015-03-08 4 Months nullFlavreji Fraser, 11b79 b1d-5 [facility] 15:00:00 15:00:00 (Reason: patti Nolasco MD d00-5120-e l Thyroid 9i7-76s565 Linda nn and b18dc8 hyperlipid emia ) 2015-03-08 2015-03-08 4 Months nullFlavreji Fraser, 8e830 7f9-8 [facility] 15:00:00 15:00:00 (Reason: patti Nolasco MD af3-42c0-9 l Thyroid 20e-2db7b4 Linda nn and da5ea9 hyperlipid emia ) 2015-03-08 2015-03-08 4 Months nullFlavreji Fraser, 20188 441-6 [facility] 15:00:00 15:00:00 (Reason: patti Nolasco MD 44d-4e7e-8 l Thyroid a49-d1p59d Linda nn and 5a4c54 hyperlipid emia ) 2015-03-08 2015-03-08 4 Months nullFlavreji Fraser, e7e24 3e3-5 [facility] 14:00:00 14:00:00 (Reason: patti Nolasco MD t6p-8ca2-5 l Thyroid 4i2-1tp86m Linda nn and 3oh542 hyperlipid emia ) 2015-03-08 2015-03-08 4 Months [...] [facility] 14:00:00 14:00:00 (Reason: r Gaurav GRANT k0i-7h38-s l Thyroid 3b1-ufyv91 Linda nn and a02bba hyperlipid emia ) 2015-02-23 2015-02-23 Unknown nullFlavo Bria, 164d94 ba-5 [facility] 15:30:00 15:30:00 r Gaurav GRANT 409-4151-b l 2v3-0279mw Linda nn 8bdf0f 2015-02-23 2015-02-23 Unknown nullFlavo Bria, 94ff27 3b-7 [facility] 15:30:00 15:30:00 r Gaurav GRANT 5l0-2408-4 l 9g3-m59vhq Linda nn 6e10f7 2015-02-23 2015-02-23 Unknown nullFlavo Bria, 5fa15e b7-f [facility] 15:30:00 15:30:00 r Gaurav GRANT 030-47e4-a l 563-4bcd82 Linda nn a0ba4c 2015-02-23 2015-02-23 Unknown nullFlavo Bria, 00192o b0-3 [facility] 15:30:00 15:30:00 r Gaurav GRANT k3i-2s0i-5 l 46e-08eefa Linda nn a0afed 2015-02-23 2015-02-23 Unknown nullFlavo Bria, 7ff0e3 49-7 [facility] 15:30:00 15:30:00 r Gaurav GRANT 012-4353-a l 299-0beab9 Linda nn 4f8f58 2015-02-23 2015-02-23 Unknown nullFlavo Bria, pep448 72-6 [facility] 15:30:00 15:30:00 r Gaurav GRANT bf7-4829-b l [id number] Linda nn [id number] 2015-02-23 2015-02-23 Unknown nullFlavo Bria, [id number] e2-a [facility] 15:30:00 15:30:00 r Gaurav GRANT erin-4ad7-9 l [id number]-2815n7 Linda nn [id number] 2015-02-23 2015-02-23 Unknown nullFlavo Bria, [id number] df-e [facility] 15:30:00 15:30:00 r Gaurav GRANT z1l-7o01-e l cca-cdaab9 Linda nn [id number] 2015-02-23 2015-02-23 Unknown nullFlavo Bria, 91-3 [facility] 15:30:00 15:30:00 r Gaurav GRANT i06-58h9-t l [id number] Linda nn [id number] 2015-02-23 2015-02-23 Unknown nullFlavo Bria, [id number] 47-5 [facility] 14:30:00 14:30:00 r Gaurav GRANT w47-95dj-6 l 3cb-[id number] Linda nn [id number] 2015-02-23 2015-02-23 Unknown nullFlavo Bria, [id number] 34-d [facility] 14:30:00 14:30:00 r Gaurav GRANT 807-495b-8 l 15d-4e29e0 Linda nn [id number] 2015-02-23 2015-02-23 Unknown nullFlavo Bria, [id number] 34-b [facility] 14:30:00 14:30:00 r Gaurav GRANT 78f-4e55-9 l [id number] Linda nn [id number] 2015-02-23 2015-02-23 Unknown nullFlavo Bria, [id number] cf-0 [facility] 14:30:00 14:30:00 r Gaurav GRANT 03f-49a6-8 l [id number] Linda nn [id number] 2015-02-11 2015-02-11 Unknown nullFlavo Bria, [id number] db-3 [facility] 00:31:00 00:31:00 r Gaurav GRANT 807-427a-b l u81-2ce9h3 Linda nn [id number] 2015-02-11 2015-02-11 Unknown nullFlavo Bria, c5dedb a0-0 [facility] 00:31:00 00:31:00 r Gaurav GRANT 567-4215-9 l [id number] Linda nn [id number] 2015-02-11 2015-02-11 Unknown nullFlavo Bria, [id number] fa-9 [facility] 00:31:00 00:31:00 r Gaurav GRANT 120-4739-b l 129-0079af Linda nn 95fc4f 2015-02-11 2015-02-11 Unknown nullFlavo Bria, [id number] 42-1 [facility] 00:31:00 00:31:00 r Gaurav GRANT 1t0-84s1-w l [id number]-kg5108 Linda nn 5m082m 2015-02-11 2015-02-11 Unknown nullFlavo Bria, 8f5f7c 38-1 [facility] 00:31:00 00:31:00 r Gaurav GRANT 356-4309-9 l bde-50fa6a Linda nn 3ac40f 2015-02-11 2015-02-11 Unknown nullFlavo Bria, 5eff1c c7-d [facility] 00:31:00 00:31:00 r Gaurav GRANT ce9-4034-9 l [id number] Linda nn [id number] 2015-02-11 2015-02-11 Unknown nullFlavo Bria, [id number] d0-8 [facility] 00:31:00 00:31:00 r Gaurav GRANT fe2-4cc6-a l 7df-49e35f Linda nn b2e5af 2015-02-11 2015-02-11 Unknown vicFlavo Bria, 4a8adc a4-8 [facility] 00:31:00 00:31:00 r Gaurav GRANT 338-4ec9-a l [id number] Linda nn 2fcad7 2015-02-11 2015-02-11 Unknown nullFlavo Bria, [id number] 61-3 [facility] 00:31:00 00:31:00 r Gaurav GRANT ff0-4b55-8 l [id number] Linda nn [id number] 2015-02-11 2015-02-11 Unknown nullFlavo Bria, 369bed b7-9 [facility] 00:31:00 00:31:00 r Gaurav GRANT [place]-4194-9 l ec4-852ceb Linda nn [id number] 2015-02-11 2015-02-11 Unknown nullFlavo Bria, 315f29 2a-0 [facility] 00:31:00 00:31:00 r Gaurav GRANT cf9-4538-a l 79d-f5e2d1 Linda nn 5f9bb2 2015-02-11 2015-02-11 Unknown nullFlavo Bria, f574d9 b8-1 [facility] 00:31:00 00:31:00 r Gaurav GRANT 129-4d70-b l 3c2-e5479v Linda nn m44791 2015-02-11 2015-02-11 Unknown nullFlavo Bria, cb5db9 f8-3 [facility] 00:31:00 00:31:00 r Gaurav GRANT y9f-9afh-1 l 85b-6ecc81 Linda nn 377ea3 2015-02-10 2015-02-10 Unknown nullFlavo Bria, 74268a bc-0 [facility] 23:31:00 23:31:00 r Gaurav GRANT 094-45f1-b l eae-v2m335 Linda nn 55a4c7 2015-02-10 2015-02-10 Unknown nullFlavo Bria, e0b4ae 48-d [facility] 23:31:00 23:31:00 r Gaurav GRANT 832-4fe1-9 l 737-7c81c2 Linda nn x2376s 2015-02-10 2015-02-10 Unknown nullFlavo Bria, 17dd62 30-d [facility] 23:31:00 23:31:00 r Gaurav GRANT 029-48b9-8 l 028-j2q191 Linda nn 1c5acb 2015-02-10 2015-02-10 Unknown nullFlavo Bria, 0562b1 c8-e [facility] 23:31:00 23:31:00 r Gaurav GRANT 40b-4ec5-a l 70b-9a7b6f Linda nn 811766 6249-11-02 2015-02-08 LAB ORDER nullFlavo Bria, 687 z86lt-4 [facility] 22:08:00 22:08:00 r Gaurav GRANT 570-4722-9 l 92e-f7af1f Linda nn 6g861r 2015-02-08 2015-02-08 LAB ORDER nullFlavo Bria, c86 449x5-c [facility] 22:08:00 22:08:00 r Gaurav GRANT acc-4ef9-8 l ef3-721572 Linda nn a07f05 2015-02-08 2015-02-08 LAB ORDER nullFlavo Bria, b46 a8ga1-4 [facility] 22:08:00 22:08:00 r Gaurav GRANT w45-1003-l l q6y-0f110j Linda nn 9adb24 2015-02-08 2015-02-08 LAB ORDER Sonya Fraser, 1db 123ed-3 [facility] 22:08:00 22:08:00 r Gaurav GRANT 1j9-36h5-9 l 243-84o851 Linda nn 1c06e1 2015-02-08 2015-02-08 LAB ORDER Sonya Fraser, ee4 78edc-f [facility] 22:08:00 22:08:00 r Gaurav GRANT a75-5162-4 l 163-e3c99e Linda nn l0t509 2015-02-08 2015-02-08 LAB ORDER Sonya Fraser, 37c 4k751-a [facility] 22:08:00 22:08:00 r Gaurav GRANT z4c-8503-l l 4o5-3p1814 Linda nn 0eb1be 2015-02-08 2015-02-08 LAB ORDER Sonya Fraser, 4ab f50vd-f [facility] 22:08:00 22:08:00 r Gaurav GRANT ae7-492e-b l m59-r5i2u0 Linda nn aa65be 2015-02-08 2015-02-08 LAB ORDER Sonya Fraser, 55a aca14-2 [facility] 22:08:00 22:08:00 r Gaurav GRANT 5s6-7v9b-j l 388-657874 Linda nn d0f3c3 2015-02-08 2015-02-08 LAB ORDER Sonya Fraser, e4a v34g9-e [facility] 22:08:00 22:08:00 r Gaurav GRANT m62-33g4-y l 0l9-3n94mo Linda nn 865c08 2015-02-08 2015-02-08 LAB ORDER Sonya Fraser, f94 37056-0 [facility] 22:08:00 22:08:00 r Gaurav GRANT fc2-4369-b l cca-47894h Linda nn d9x521 2015-02-08 2015-02-08 LAB ORDER Sonya Fraser, 645 1cvv2-7 [facility] 22:08:00 22:08:00 r Gaurav GRANT 267-44a7-a l 606-o2718o Linda nn z9t081 2015-02-08 2015-02-08 LAB ORDER Sonya Fraser, c92 i324a-3 [facility] 22:08:00 22:08:00 r Gaurav GRANT 701-4e4d-9 l 615-5zq696 Linda nn 5re120 2015-02-08 2015-02-08 LAB ORDER Shadeo Bria, 06b 44f96-9 [facility] 22:08:00 22:08:00 r Gaurav GRANT 235-4f59-8 l 7i5-71s142 Linda nn 69a5b7 2015-02-08 2015-02-08 LAB ORDER Sonya Fraser, ff7 02acb-4 [facility] 22:08:00 22:08:00 r Gaurav GRANT 5cc-4428-a l e6m-o27m95 Linda nn 846af4 2015-02-08 2015-02-08 LAB ORDER Sonya Fraser, 90a 4754c-d [facility] 21:08:00 21:08:00 r Gaurav GRANT fea-435f-a l ffb-9f3b23 Linda nn 4cd7d4 2015-02-08 2015-02-08 LAB ORDER Sonya Fraser, 2fb j033a-2 [facility] 21:08:00 21:08:00 r Gaurav GRANT fec-42ec-a l 456-a931cd Linda nn 2a32ba 2015-02-08 2015-02-08 LAB ORDER Sonya Fraser, f4e 4bk57-4 [facility] 21:08:00 21:08:00 r Gaurav GRANT 05f-49ec-8 l 8v8-1f9108 Linda nn 658577 6258-11-02 2015-02-08 LAB ORDER Sonya Fraser, 5b8 adfb7-e [facility] 21:08:00 21:08:00 r Gaurav GRANT 323-4c09-9 l 8u0-56he10 Linda nn u1249v 2015-02-05 2015-02-05 Unknown Sonya Fraser, 4498e5 16-c [facility] 21:25:00 21:25:00 r Gaurav GRANT 716-4445-a l 214-559db7 Linda nn 0c33c4 2015-02-05 2015-02-05 Unknown nullFlavo Bria, 514f25 47-a [facility] 21:25:00 21:25:00 r Gaurav GRANT 492-4ddc-8 l 6q6-i6i19s Linda nn 680ba2 2015-02-05 2015-02-05 Unknown nullFlavo Bria, 6918b5 03-2 [facility] 21:25:00 21:25:00 r Gaurav GRANT s41-6p11-d l 123-2bbdbc Linda nn cc47c3 2015-02-05 2015-02-05 Unknown nullFlavo Bria, 1v9013 e0-d [facility] 21:25:00 21:25:00 r Gaurav GRANT 4ea-4ecb-8 l eff-a2bdfa Linda nn 021ea2 2015-02-05 2015-02-05 Unknown nullFlavo Bria, 7b59d7 bb-9 [facility] 21:25:00 21:25:00 r Gaurav GRANT 304-48ee-9 l bf0-627701 Linda nn fc6252 2015-02-05 2015-02-05 Unknown nullFlavo Bria, 1d97e7 e9-8 [facility] 21:25:00 21:25:00 r Gaurav GRANT s7f-8o3o-r l 8h5-c71601 Linda nn 95feb8 2015-02-05 2015-02-05 Unknown nullFlavo Bria, 5271c5 0f-e [facility] 21:25:00 21:25:00 r Gaurav GRANT 360-4476-a l 1bc-c184fb Linda nn 206189 8969-10-30 2015-02-05 Unknown nullFlavo Bria, 451ee3 8f-3 [facility] 21:25:00 21:25:00 r Gaurav GRANT 49a-4a70-a l 0x3-9m2f39 Linda nn 1701b5 2015-02-05 2015-02-05 Unknown nullFlavo Bria, q7653p b3-5 [facility] 21:25:00 21:25:00 r Gaurav GRANT db7-49a6-8 l fe4-60z274 Linda nn 763453 1138-10-30 2015-02-05 Unknown nullFlavo Bria, 80436k 19-6 [facility] 21:25:00 21:25:00 r Gaurav GRANT i6s-7o48-6 l 8i9-y3s6q4 Linda nn 4f279x 2015-02-05 2015-02-05 Unknown nullFlavo Bria, y19794 37-9 [facility] 21:25:00 21:25:00 r Gaurav GRANT 9df-48f6-a l 601-5f27b5 Linda nn 1c85d3 2015-02-05 2015-02-05 Unknown nullFlavo Bria, 84f2f7 08-3 [facility] 21:25:00 21:25:00 r Gaurav GRANT 9n1-9670-9 l 652-3k556o Linda nn 38dfa8 2015-02-05 2015-02-05 Unknown nullFlavo Bria, e430b7 0b-d [facility] 21:25:00 21:25:00 r Gaurav GRANT ffc-425f-a l db7-88baa9 Linda nn a63f25 2015-02-05 2015-02-05 Unknown nullFlavo Bria, eeb4a4 69-2 [facility] 21:25:00 21:25:00 r Gaurav GRANT r17-2se5-r l 5bf-c41db0 Linda nn rf1927 2015-02-05 2015-02-05 Unknown nullFlavo Bria, 0529a2 47-2 [facility] 20:25:00 20:25:00 r Gaurav GRANT 3j0-9919-6 l 0l5-k19418 Linda nn 2c5dfe 2015-02-05 2015-02-05 Unknown nullFlavo Bria, 9cg177 c4-c [facility] 20:25:00 20:25:00 r Gaurav GRANT aec-40ea-8 l 2r1-512ix5 Linda nn da64f3 2015-02-05 2015-02-05 Unknown nullFlavo Bria, zr8286 2a-a [facility] 20:25:00 20:25:00 r Gaurav GRANT y13-01l1-2 l 2fd-a086cd Linda nn 57ab13 2015-02-05 2015-02-05 Unknown nullFlavo Bria, 4d035n 82-5 [facility] 20:25:00 20:25:00 r Gaurav GRANT d7x-88vt-7 l dd4-2ef3cd Linda nn bfbca7 2015-02-04 2015-02-04 lab order/ nullFlavo Bria, 7e3 0n484-4 [facility] 20:23:00 20:23:00 x-ray r Gaurav GRANT 032-475b-9 l 6ce-ogl884 Linda nn 25139u 2015-02-04 2015-02-04 lab order/ nullFlavo Bria, 582 c3245-4 [facility] 20:23:00 20:23:00 x-ray r Gaurav GRANT 6w4-17l9-v l fe9-7e21d7 Linda nn 4acf3f 2015-02-04 2015-02-04 lab order/ nullFlavo Bria, 6b9 0116d-d [facility] 20:23:00 20:23:00 x-ray r Gaurav GRANT 3bb-4d9a-a l 2bb-ff2b3f [facility] nn u7436c 2015-02-04 2015-02-04 lab order/ nullFlavo Bria, 8b6 0o710-x [facility] 20:23:00 20:23:00 x-ray r Gaurav GRANT 27d-4a6f-a l ae4-0tl044 [facility] nn w11855 2015-02-04 2015-02-04 lab order/ nullFlavo Bria, b8b 1n40c-9 [facility] 20:23:00 20:23:00 x-ray r Gaurav GRANT fe6-4444-a l 678-699e08 Linda nn 6f35a0 2015-02-04 2015-02-04 lab order/ nullFlavo Bria, ccd 1962c-6 [facility] 20:23:00 20:23:00 x-ray r Gaurav GRANT 0n4-784i-g l i74-e66kn5 Linda nn e147de 2015-02-04 2015-02-04 lab order/ nullFlavo Bria, 8a5 37i67-3 [facility] 20:23:00 20:23:00 x-ray r Gaurav GRANT c0j-4gm7-0 l 9m2-58h85u Linda nn d994e5 2015-02-04 2015-02-04 lab order/ nullFlavo Bria, cec 58va3-w [facility] 20:23:00 20:23:00 x-ray r Gaurav GRANT l69-4251-6 l q95-08f191 [facility] nn e873a3 2015-02-04 2015-02-04 lab order/ nullFlavo Bria, 1d1 vk08d-i [facility] 20:23:00 20:23:00 x-ray r Gaurav GRANT 298-4f0c-a l i5p-j50jy2 [facility] nn 48q644 2015-02-04 2015-02-04 lab order/ nullFlavo Bria, c7b p44pe-6 [facility] 20:23:00 20:23:00 x-ray r Gaurav GRANT k3r-0y88-8 l 25c-0038af [facility] nn f2b3aa 2015-02-04 2015-02-04 lab order/ nullFlavo Bria, 4f7 s6e24-9 [facility] 20:23:00 20:23:00 x-ray r Gaurav GRANT 3y1-95cn-8 l e0d-p4w8k4 [facility] nn 9e4e7b 2015-02-04 2015-02-04 lab order/ nullFlavo Bria, cd5 5865a-a [facility] 20:23:00 20:23:00 x-ray r Gaurav GRANT 3cb-4592-b l 5w6-r38rc8 [facility] nn f1b6ad 2015-02-04 2015-02-04 lab order/ nullFlavo Bria, 50c 87495-6 [facility] 20:23:00 20:23:00 x-ray r Gaurav GRANT 842-4673-a l s0f-p48408 Linda nn 608ee9 2015-02-04 2015-02-04 lab order/ nullFlavo Bria, 65e acbcf-8 [facility] 20:23:00 20:23:00 x-ray r Gaurav GRANT 130-4219-a l b97-8o9j75 [facility] nn 2f6d3b 2015-02-04 2015-02-04 lab order/ nullFlavo Bria, a4d bq54h-u [facility] 19:23:00 19:23:00 x-ray r Gaurav GRANT fcb-4f4b-b l 63f-0321d4 Linda nn cea2ee 2015-02-04 2015-02-04 lab order/ nullFlavo Bria, 6df t94za-0 [facility] 19:23:00 19:23:00 x-ray r Gaurav GRANT u22-4880-t l 4cd-5f1ca9 [facility] nn 9fb13d 2015-02-04 2015-02-04 lab order/ nullFlavo Bria, 1a1 q01lx-5 [facility] 19:23:00 19:23:00 x-ray r Gaurav GRANT 885-40d4-9 l 335-e8f9fc Linda nn 6c2a05 2015-02-04 2015-02-04 lab order/ nullFlavo Bria, 684 2k35l-p [facility] 19:23:00 19:23:00 x-ray r Gaurav GRANT 17e-47f4-b l m17-jt284i [facility] nn dd68e0 2015-02-03 2015-02-03 release nullFlavo Bria, g01753 e5-f [facility] 23:01:00 23:01:00 for sx r Gaurav GRANT 9q7-3phh-2 l be5-b1f5ab Linda nn 38m594 2015-02-03 2015-02-03 release nullFlavo Bria, 0d8a0c 8d-f [facility] 23:01:00 23:01:00 for sx r Gaurav GRANT 5ef-48b5-b l 7d5-gk6394 [facility] nn 76c69a 2015-02-03 2015-02-03 release nullFlavo Bria, 33bdd0 a2-b [facility] 23:01:00 23:01:00 for sx r Gaurav GRANT t7c-8g9e-7 l 1n0-1p2o67 Linda nn 7a80e7 2015-02-03 2015-02-03 release nullFlavo Bria, d89e26 e8-c [facility] 23:01:00 23:01:00 for sx r Gaurav GRANT db0-404e-9 l 1t5-d5r5c1 [facility] nn m87795 2015-02-03 2015-02-03 release nullFlavo Bria, 1a99fc be-0 [facility] 23:01:00 23:01:00 for sx r Gaurav GRANT 5x8-6870-7 l 04c-9288dc [facility] nn 744467 2780-10-28 2015-02-03 release nullFlavo Bria, 9909d6 8e-3 [facility] 23:01:00 23:01:00 for sx r Gaurav GRANT 348-4290-8 l 318-93x080 [facility] nn 63584m 2015-02-03 2015-02-03 release nullFlavo Bria, 606c1f 8e-a [facility] 23:01:00 23:01:00 for sx r Gaurav GRANT 682-4889-9 l 73d-6324ec [facility] nn 154e93 2015-02-03 2015-02-03 release nullFlavo Bria, a87c6f 4f-6 [facility] 23:01:00 23:01:00 for sx r Gaurav GRANT d49-9319-e l u9k-8270i2 [facility] nn 53f2aa 2015-02-03 2015-02-03 release nullFlavo Bria, v39138 fd-9 [facility] 23:01:00 23:01:00 for sx r Gaurav GRANT 319-42e4-9 l ff9-35f09c [facility] nn z4721d 2015-02-03 2015-02-03 release nullFlavo Bria, d7deb8 d1-b [facility] 23:01:00 23:01:00 for sx r Gaurav GRANT 4s4-5992-m l 10d-0ca3ef [facility] nn 98bcf8 2015-02-03 2015-02-03 release nullFlavo Bria, 7e40cd 04-3 [facility] 23:01:00 23:01:00 for sx r Gaurav GRANT 7af-4454-a l z4p-f70a99 [facility] nn 230fee 2015-02-03 2015-02-03 release nullFlavo Bria, b52119 2c-f [facility] 23:01:00 23:01:00 for sx r Gaurav GRANT 156-4b63-b l 639-48f8a2 [facility] nn 00a2ef 2015-02-03 2015-02-03 release nullFlavo Bria, 70k072 b9-6 [facility] 23:01:00 23:01:00 for sx r Gaurav GRANT 039-46c5-a l 0dd-ac6d1f [facility] nn b032d7 2015-02-03 2015-02-03 release nullFlavo Bria, w5452s 08-c [facility] 23:01:00 23:01:00 for sx r Gaurav GRANT 50a-4fa1-8 l e1d-b73527 [facility] nn 4c6f5b 2015-02-03 2015-02-03 release nullFlavo Bria, c0aa40 bb-2 [facility] 22:01:00 22:01:00 for sx r Gaurav GRANT ce0-4bd8-8 l 8f8-01lh11 [facility] nn 542994 8005-10-28 2015-02-03 release nullFlavo Bria, 37afc2 cd-4 [facility] 22:01:00 22:01:00 for sx r Gaurav GRANT 5cb-4266-9 l d4x-n722fa [facility] nn fefb36 2015-02-03 2015-02-03 release nullFlavo Bria, 1b2498 48-1 [facility] 22:01:00 22:01:00 for sx r Gaurav GRANT 13b-4715-8 l 253-64l769 [facility] nn 299cc9 2015-02-03 2015-02-03 release nullFlavo Bria, 89c50a d6-8 [facility] 22:01:00 22:01:00 for sx r Gaurav GRANT 448-4d8e-b l ac0-22ac5e [facility] nn u9540b 2015-01-04 2015-01-04 [place] [facility] nullFlavo Bria, 33fd9 1c6-9 [facility] 22:30:00 22:30:00 r Gaurav GRANT i77-330o-j l fa9-f8a32b [facility] nn 9f2e82 2015-01-04 2015-01-04 [place] [facility] nullFlavo Bria, f5807 17e-b [facility] 22:30:00 22:30:00 r Gaurav GRANT d7q-1pp7-0 l bbf-8b9ee8 [facility] ebbbe3 2015-01-04 2015-01-04 [place] [facility] nullFlavo Bria, 54cef 5fe-7 [facility] 22:30:00 22:30:00 r Gaurav GRANT 740-43f9-a l 3a1-b9rzup [facility] ef3bbf 2015-01-04 2015-01-04 [place] [facility] nullFlavo Bria, f0ef7 206-7 [facility] 22:30:00 22:30:00 r Gaurav GRANT 269-46fd-9 l 951-85706i [facility] 390072 6295-09-28 2015-01-04 [place] [facility] nullFlavo Bria, 92d98 208-9 [facility] 22:30:00 22:30:00 r Gaurav GRANT 904-4259-9 l w8v-98rcz4 [facility] rdi361 2015-01-04 2015-01-04 [place] [facility] nullFlavo Bria, 22d92 5d4-e [facility] 22:30:00 22:30:00 r Gaurav GRANT p5o-400z-1 l 70e-4d3d30 [facility] m8k205 2015-01-04 2015-01-04 [place] [facility] nullFlavo Bria, bdbc1 e80-c [facility] 22:30:00 22:30:00 r Gaurav GRANT z79-45py-2 l 6k2-31z55s [facility] bc4f46 2015-01-04 2015-01-04 [place] [facility] nullFlavo rBia, cfe5b 85b-6 [facility] 21:30:00 21:30:00 r Gaurav GRANT 76a-4458-a l 67a-4vt207 [facility] 4ff2e1 2015-01-04 2015-01-04 [place] [facility] nullFlavo Bria, 48031 914-1 [facility] 21:30:00 21:30:00 r Gaurav GRANT p49-83iy-l l 098-6f1b8d [facility] b9ab77 2015-01-04 2015-01-04 [place] [facility] nullFlavo Bria, 67a75 2b6-d [facility] 21:30:00 21:30:00 r Gaurav GRANT bd6-4d9e-8 l 997-4522a5 [facility] 02abea 2015-01-04 2015-01-04 [place] [facility] nullFlavo Bria, 75b22 c7b-b [facility] 21:30:00 21:30:00 patti Nolasco MD dc8-42e9-b l 8f8-38x500 [facility] nn 795a90 2014-12-24 2014-12-24 Needs nullFlavo Bria, 3bda8a 55-a [facility] 21:30:00 21:30:00 Sleeping patti Nolasco MD 287-4650-8 l meds 82d-8bd2ed Linda nn uz8997 2014-12-24 2014-12-24 Needs nullFlavo Bria, 9d5019 81-b [facility] 21:30:00 21:30:00 Sleeping patti Nolasco MD r86-2on1-f l meds d30-4o1e2s Linda nn 5749c9 2014-12-24 2014-12-24 Needs nullFlavo Bria, 318b64 fc-4 [facility] 21:30:00 21:30:00 Sleeping patti Nolasco MD 413-42f2-b l meds 475-k1t304 [facility] nn b7b402 2014-12-24 2014-12-24 Needs nullFlavo Bria, e797e0 17-7 [facility] 21:30:00 21:30:00 Sleeping patti Nolasco MD b37-6096-9 l meds afc-51dea0 [facility] nn aok374 2014-12-24 2014-12-24 Needs nullFlavo Bria, icn227 9d-e [facility] 21:30:00 21:30:00 Sleeping patti Nolasco MD aa1-4467-b l meds 280-cafcf0 [facility] nn 3c1f57 2014-12-24 2014-12-24 Needs nullFlavo Bria, 792eeb 6f-b [facility] 21:30:00 21:30:00 Sleeping patti Nolasco MD 01f-468c-a l meds b09-421k3m [facility] nn 34ae6c 2014-12-24 2014-12-24 Needs nullFlavo Bria, 772845 e7-4 [facility] 21:30:00 21:30:00 Sleeping patti Nolasco MD 965-4d93-a l meds 00c-a1af2c [facility] nn e5b17d 2014-12-24 2014-12-24 Needs nullFlavo Bria, e953f2 9f-8 [facility] 20:30:00 20:30:00 Sleeping r Gaurav GRANT 6p6-81z5-5 l meds 5a9-7o9bx8 [facility] nn 1e4694 2014-12-24 2014-12-24 Needs nullFlavo Bria, h31367 e5-b [facility] 20:30:00 20:30:00 Sleeping r Gaurav GRANT aeb-4b2d-9 l meds 8g9-w105s6 [facility] nn 029b23 2014-12-24 2014-12-24 Needs nullFlavo Bria, c8c05a 94-7 [facility] 20:30:00 20:30:00 Sleeping r Gaurav GRANT z66-9266-8 l meds 141-9f53b9 [facility] nn z1859x 2014-12-24 2014-12-24 Needs nullFlavo Bria, 10180g af-e [facility] 20:30:00 20:30:00 Sleeping r Gaurav GRANT ffc-47c8-8 l meds 12c-b9d17f [facility] nn aeee78 2014-11-17 2014-11-17 refill nullFlavo Bria, d7r027 dd-1 [facility] 16:01:00 16:01:00 r Gaurav GRANT fd8-457d-9 l dab-434a13 [facility] nn 703f0b 2014-11-17 2014-11-17 refill nullFlavo Bria, d8efe3 79-3 [facility] 16:01:00 16:01:00 r Gaurav GRANT 9p3-8e5p-d l 1r2-v46873 Linda nn 39031q 2014-11-17 2014-11-17 refill nullFlavo Bria, 73x289 be-9 [facility] 16:01:00 16:01:00 patti Nolasco MD eec-4aa0-8 l 7dd-954845 [facility] nn dc91dd 2014-11-17 2014-11-17 refill nullFlavo Bria, 3x7021 e4-4 [facility] 16:01:00 16:01:00 patti Nolasco MD i8b-5o19-1 l 371-472abd Linda nn 805153 4869-08-11 2014-11-17 refill nullFlavo Bria, 1bbbbc 0b-2 [facility] 16:01:00 16:01:00 r Gaurav GRANT galindo-47b8-9 l df1-6eede1 [facility] nn 224eed 2014-11-17 2014-11-17 refill nullFlavo Bria, d81ea3 2a-1 [facility] 16:01:00 16:01:00 r Gaurav GRANT 7cc-496d-9 l 70b-6o4481 [facility] nn 35fef5 2014-11-17 2014-11-17 refill nullFlavo Bria, a5f7bb 76-e [facility] 16:01:00 16:01:00 r Gaurav GRANT 651-4d16-9 l cc6-c7b4f1 [facility] nn c244a4 2014-11-17 2014-11-17 refill nullFlavo Bria, 51195l 68-7 [facility] 16:01:00 16:01:00 r Gaurav GRANT m0j-8ymd-1 l c45-4oip2u [facility] nn i0p569 2014-11-17 2014-11-17 refill nullFlavo Bria, 69a53f 9f-7 [facility] 16:01:00 16:01:00 r Gaurav GRANT 4y3-62c7-o l bee-5fefeb [facility] nn e56e65 2014-11-17 2014-11-17 refill nullFlavo Bria, 2325ae c9-c [facility] 16:01:00 16:01:00 r Gaurav GRANT 36c-48fa-8 l ac5-c35003 [facility] nn f2d2ad 2014-11-17 2014-11-17 refill nullFlavo Bria, m00582 df-f [facility] 16:01:00 16:01:00 r Gaurav GRANT 683-4fe4-9 l 784-6047ae [facility] nn 6u7029 2014-11-17 2014-11-17 refill nullFlavo Bria, 7y5208 ed-3 [facility] 16:01:00 16:01:00 r Gaurav GRANT 2t4-4460-8 l w0b-24jp72 [facility] nn 2b8fc7 2014-11-17 2014-11-17 refill nullFlavo Bria, 3a47ad 53-2 [facility] 16:01:00 16:01:00 r Gaurav GRANT x2d-2131-h l j2a-ig78p9 [facility] nn d7edfa 2014-11-17 2014-11-17 refill nullFlavo Bria, i22045 b0-8 [facility] 16:01:00 16:01:00 r Gaurav GRANT 682-41f0-8 l s2o-aord5h [facility] nn 33dded 2014-11-17 2014-11-17 refill nullFlavo Bria, b73d8d b9-9 [facility] 15:01:00 15:01:00 r Gaurav GRANT aff-4a63-8 l 93a-cbe3a7 [facility] nn d2a2b8 2014-11-17 2014-11-17 refill nullNicko Bria, dca4eb 9d-f [facility] 15:01:00 15:01:00 r Gaurav GRANT w02-86nq-f l fea-51b2ad [facility] nn 9j401q 2014-11-17 2014-11-17 refill nullNicko Bria, 169e83 fa-1 [facility] 15:01:00 15:01:00 r Gaurav GRANT 1af-42b8-b l 783-01ea95 [facility] nn 9d9f5a 2014-11-17 2014-11-17 refill nullMalik Fraser, k4k190 02-c [facility] 15:01:00 15:01:00 r Gaurav GRANT 57e-441e-a l k30-e403n4 [facility] nn f09a14 2014-11-17 2014-11-17 refill nullNicko Bria, 38093i 61-6 [facility] 15:01:00 15:01:00 r Gaurav GRANT 5cc-458f-b l fb5-fb76a1 [facility] nn 4g330f 2014-11-17 2014-11-17 refill nullNicko Bria, d745a8 42-6 [facility] 15:01:00 15:01:00 r Gaurav GRANT d0s-4086-d l fcc-9e63b8 [facility] nn 0f06f9 2014-11-05 2014-11-05 4 Months nullFlavo Bria, e4aa3 177-b [facility] 14:30:00 14:30:00 (Reason: patti Nolasco MD k59-1g99-8 l Thyroid dc2-6cf4a9 Linda nn and 03d96a Triglyceri anupama ) 2014-11-05 2014-11-05 4 Months nullFlavreji Fraser, be23a 0e2-b [facility] 14:30:00 14:30:00 (Reason: patti Nolasco MD 0a2-736d-1 l Thyroid 073-380af9 Linda nn and b087e4 Triglyceri anupama ) 2014-11-05 2014-11-05 4 Months nullFlavreji Fraser, aa958 998-f [facility] 14:30:00 14:30:00 (Reason: patti Nolasco MD 414-4492-a l Thyroid p89-70143p Linda nn and 4gi085 Triglyceri anupama ) 2014-11-05 2014-11-05 4 Months nullFlavreji Fraser, 91a5d 25f-2 [facility] 14:30:00 14:30:00 (Reason: patti Nolasco MD c12-1t4s-4 l Thyroid arnol-6hz006 Linda nn and 63245f Triglyceri anupama ) 2014-11-05 2014-11-05 4 Months nullFlavreji Fraser, 20a70 fb2-d [facility] 14:30:00 14:30:00 (Reason: patti Nolasco MD 35f-4504-b l Thyroid cac-c36e98 Linda nn and [id number] Triglyceri anupama ) 2014-11-05 2014-11-05 4 Months nullFlavreji Fraser, 226da feb-4 [facility] 14:30:00 14:30:00 (Reason: patit Nolasco MD 4y9-1935-g l Thyroid w5x-iuc88u Linda nn and 4c64ed Triglyceri anupama ) 2014-11-05 2014-11-05 4 Months nullFlavreji Fraser, ec187 be3-f [facility] 14:30:00 14:30:00 (Reason: patti Nolasco MD 5r2-21ml-u l Thyroid 47c-81637h Linda nn and g02692 Triglyceri anupama ) 2014-11-05 2014-11-05 4 Months nullFlavo Bria, 1625b 686-9 [facility] 14:30:00 14:30:00 (Reason: patti Nolasco MD b8k-9n5y-w l Thyroid ff8-e74753 Linda nn and 6n9365 Triglyceri anupama ) 2014-11-05 2014-11-05 4 Months nullFlavo Bria, 47343 8aa-0 [facility] 13:30:00 13:30:00 (Reason: patti Nolasco MD 175-4190-9 l Thyroid c9i-ov48r7 Linda nn and a8c7a7 Triglyceri anupama ) 2014-11-05 2014-11-05 4 Months nullFlavo Bria, 658f2 829-5 [facility] 13:30:00 13:30:00 (Reason: patti Nolasco MD 08b-498a-b l Thyroid cbd-0ff2de Linda nn and 481e69 Triglyceri anupama ) 2014-11-05 2014-11-05 4 Months nullFlavo Bria, 33e19 2a0-c [facility] 13:30:00 13:30:00 (Reason: patti Nolasco MD 826-473b-9 l Thyroid 9l1-0nun9e Linda nn and 6e5c44 Triglyceri anupama ) 2014-11-05 2014-11-05 4 Months nullFlavo Bria, 896c4 c93-9 [facility] 13:30:00 13:30:00 (Reason: patti Nolasco MD 6af-4b8b-9 l Thyroid 915-bf8abc Linda nn and 15673o Triglyceri anupama ) 2014-11-05 2014-11-05 4 Months nullFlavo Bria, 8a0de ca5-4 [facility] 13:30:00 13:30:00 (Reason: patti Nolasco MD 6m4-39wa-h l Thyroid p4k-f1rqt8 Linda nn and aaf21a Triglyceri anupama ) 2014-11-05 2014-11-05 4 Months nullFlavo Bria, f6cd5 58b-7 [facility] 13:30:00 13:30:00 (Reason: patti Nolasco MD 31c-41fd-b l Thyroid 74e-1e3e37 Linda nn and c49bf5 Triglyceri anupama ) 2014-07-06 2014-07-06 2 Weeks nullFlavo Bria, 78b94e 5d-3 [facility] 15:15:00 15:15:00 (Reason: patti Nolasco MD b6a-6020-5 l Bronchitis 3ac-4a547h [facility] ) 85958e 2014-07-06 2014-07-06 2 Weeks nullFlavo Bria, 6e8cf6 25-9 [facility] 15:15:00 15:15:00 (Reason: patti Nolasco MD 6h9-59q8-q l Bronchitis 6n6-8916sn [facility] ) 5n5558 2014-07-06 2014-07-06 2 Weeks nullFlavo Bria, 1xb058 9b-6 [facility] 15:15:00 15:15:00 (Reason: patti Nolasco MD 865-4ac3-8 l Bronchitis e0j-3f8028 [facility] ) c1ca66 2014-07-06 2014-07-06 2 Weeks nullFlavo Bria, 46a97c b1-2 [facility] 15:15:00 15:15:00 (Reason: patti Nolasco MD q5p-2951-s l Bronchitis t7e-1ecc0w [facility] ) 76e3fa 2014-07-06 2014-07-06 2 Weeks nullFlavo Bria, o16952 3e-c [facility] 15:15:00 15:15:00 (Reason: patti Nolasco MD fb3-433f-a l Bronchitis 33f-e27aca [facility] ) sj030j 2014-07-06 2014-07-06 2 Weeks nullFlavo Bria, 2845f6 21-2 [facility] 15:15:00 15:15:00 (Reason: patti Nolasco MD 2q7-402y-4 l Bronchitis aa7-ylk970 [facility] ) a28dcd 2014-07-06 2014-07-06 2 Weeks nullFlavo Bria, 02e0a9 48-2 [facility] 15:15:00 15:15:00 (Reason: patti Nolasco MD dca-4966-9 l Bronchitis 02e-28b9ef [facility] ) d50a77 2014-07-06 2014-07-06 2 Weeks nullFlavo Bria, 53dcba 0c-0 [facility] 15:15:00 15:15:00 (Reason: patti Nolasco MD 42f-4e35-b l Bronchitis 4n4-qm98wa [facility] ) f301c7 2014-07-06 2014-07-06 2 Weeks nullFlavo Bria, 124a2f 06-e [facility] 15:15:00 15:15:00 (Reason: patti Nolasco MD 7g9-7318-i l Bronchitis 1o9-888pv5 [facility] ) 6pb432 2014-07-06 2014-07-06 2 Weeks nullFlavo Bria, 07a74f e4-1 [facility] 15:15:00 15:15:00 (Reason: patti Nolasco MD 839-4154-a l Bronchitis fa0-b3y191 [facility] ) aa72e5 2014-07-06 2014-07-06 2 Weeks nullFlavo Bria, c895af 6a-c [facility] 15:15:00 15:15:00 (Reason: patti Nolasco MD 6j2-9wbk-1 l Bronchitis 1eb-592e06 [facility] ) ved405 2014-07-06 2014-07-06 2 Weeks nullFlavo Bria, 26a2f1 38-b [facility] 15:15:00 15:15:00 (Reason: patti Nolasco MD n66-3u18-0 l Bronchitis 0i9-30q5ai [facility] ) e622f5 2014-07-06 2014-07-06 2 Weeks nullFlavo Bria, e9c59c 64-2 [facility] 15:15:00 15:15:00 (Reason: patti Nolasco MD 87f-485b-8 l Bronchitis 37c-0c78de [facility] ) 873250 5080-03-30 2014-07-06 2 Weeks nullFlavo Bria, b151cc 0c-d [facility] 15:15:00 15:15:00 (Reason: patti Nolasco MD 7df-4131-9 l Bronchitis m78-8282n9 [facility] ) 61t300 2014-07-06 2014-07-06 2 Weeks nullFlavo Bria, 80f7ce 10-9 [facility] 14:15:00 14:15:00 (Reason: patti Nolasco MD 9o3-2q8c-3 l Bronchitis 60f-9b7514 [facility] ) 2a1182 2014-07-06 2014-07-06 2 Weeks nullFlavo Bria, 445c9e e4-e [facility] 14:15:00 14:15:00 (Reason: patti Nolasco MD ab4-4751-8 l Bronchitis 01e-f97a03 [facility] ) 851af6 2014-07-06 2014-07-06 2 Weeks nullFlavo Bria, lu3093 47-4 [facility] 14:15:00 14:15:00 (Reason: patti Nolasco MD ce3-4a1e-9 l Bronchitis 7c1-rt8q6k [facility] ) c6e3d2 2014-07-06 2014-07-06 2 Weeks nullFlavo Bria, cad75c 05-a [facility] 14:15:00 14:15:00 (Reason: patti Nolasco MD 21b-40cc-a l Bronchitis n53-43j6u1 [facility] ) 999e9a 2014-07-06 2014-07-06 2 Weeks nullFlavo Bria, ece6f2 65-f [facility] 14:15:00 14:15:00 (Reason: patti Nolasco MD 4t7-83pt-d l Bronchitis e41-1yy1f5 [facility] ) [id number] 6141-03-30 2014-07-06 2 Weeks nullFlavo Bria, 1d42fd 07-3 [facility]oria 14:15:00 14:15:00 (Reason: patti Nolasco MD 364-40d6-b l Bronchitis 8bc-cf16e5 [facility] ) d230ec 2014-06-22 2014-06-22 3M X HTN, nullFlavo Bria, bdcc 5a23-0 [facility] 15:00:00 15:00:00 Hyperlipid patti Nolasco MD fac-4059-a l emia , 4fb-069862 Linda nn myalgia 2o5680 2014-06-22 2014-06-22 3M X HTN, nullFlavo Bria, 8fe6 3ee2-f Memoria 15:00:00 15:00:00 Hyperlipid patti Nolasco MD 8b0-0681-n l emia , 5fb-ywk658 Linda nn myalgia y3x055 2014-06-22 2014-06-22 3M X HTN, nullFlavo Bria, 360e fade-5 Memoria 15:00:00 15:00:00 Hyperlipid patti Nolasco MD y28-787z-5 l emia , 34a-270a5a Linda nn myalgia 3d4122 2014-06-22 2014-06-22 3M X HTN, nullFlavo Bria, 81a4 afa7-f Memoria 15:00:00 15:00:00 Hyperlipid r Gaurav GRANT v4s-75h8-4 l emia , t23-426xvy Linda nn myalgia b4aaee 2014-06-22 2014-06-22 3M X HTN, nullFlavo Bria, 3458 832e-d Memoria 15:00:00 15:00:00 Hyperlipid r Gaurav GRANT 206-46f5-8 l emia , c36-9px42r Linda nn myalgia 549168 1689-03-16 2014-06-22 3M X HTN, nullFlavo Bria, f7f6 44f0-5 Memoria 15:00:00 15:00:00 Hyperlipid r Gaurav GRANT 54f-4e8f-9 l emia , 7n2-c06085 Linda nn myalgia 64dfde 2014-06-22 2014-06-22 3M X HTN, nullFlavo Bria, 8079 2a85-6 Memoria 15:00:00 15:00:00 Hyperlipid r Gaurav GRANT 539-45d3-9 l emia , 1bd-045cd5 Linda nn myalgia e663c0 2014-06-22 2014-06-22 3M X HTN, nullFlavo Bria, 75f4 0e56-5 Memoria 15:00:00 15:00:00 Hyperlipid r Gaurav GRANT ec7-403d-9 l emia , 1i0-m0avi0 Linda nn myalgia 0821e0 2014-06-22 2014-06-22 3M X HTN, nullFlavo Bria, c67e 850a-8 Memoria 15:00:00 15:00:00 Hyperlipid r Gaurav GRANT h4a-8389-j l emia , bf6-63d32e Linda nn myalgia 46d267 2014-06-22 2014-06-22 3M X HTN, nullFlavo Bria, fee3 3acf-9 Memoria 15:00:00 15:00:00 Hyperlipid r Gaurav GRANT 7f8-0o83-a l emia , 6i7-961a27 Linda nn myalgia 89ea4c 2014-06-22 2014-06-22 3M X HTN, nullFlavo Bria, ff97 9302-7 Memoria 15:00:00 15:00:00 Hyperlipid r Gaurav GRANT f8j-6480-w l emia , u8m-01436v Linda nn myalgia 54bdb4 2014-06-22 2014-06-22 3M X HTN, nullFlavo Bria, 4e84 f21e-5 Memoria 15:00:00 15:00:00 Hyperlipid r Gaurav GRANT 339-4ea2-9 l emia , 7ec-1202bc Linda nn myalgia 257a00 2014-06-22 2014-06-22 3M X HTN, nullFlavo Bria, 3a53 eab3-4 Memoria 15:00:00 15:00:00 Hyperlipid r Gaurav GRANT 329-4c32-a l emia , ef4-17caa8 Linda nn myalgia 3q988x 2014-06-22 2014-06-22 3M X HTN, nullFlavo Bria, 1393 82fe-2 Memoria 15:00:00 15:00:00 Hyperlipid r Gaurav GRANT 932-45bb-9 l emia , 571-998773 Linda nn myalgia 882d24 2014-06-22 2014-06-22 3M X HTN, nullFlavo Bria, f9cc 5035-8 Memoria 14:00:00 14:00:00 Hyperlipid r Gaurav GRANT r8z-3x01-x l emia , aad-4f92a9 Linda nn myalgia 53r764 2014-06-22 2014-06-22 3M X HTN, nullFlavo Bria, 5591 4059-a Memoria 14:00:00 14:00:00 Hyperlipid r Gaurav GRANT 5bc-420a-8 l emia , 420-de67d4 Linda nn myalgia ea0ec9 2014-06-22 2014-06-22 3M X HTN, nullFlavo Bria, b716 0183-8 Memoria 14:00:00 14:00:00 Hyperlipid r Gaurav GRANT 489-46c6-8 l emia , c04-3rf3v9 Linda nn myalgia ee3a1a 2014-06-22 2014-06-22 3M X HTN, nullFlavo Bria, a384 74c7-7 Memoria 14:00:00 14:00:00 Hyperlipid r Gaurav GRANT d2w-537w-r l emia , 903-450d03 Linda nn myalgia 646699 2894-03-16 2014-06-22 3M X HTN, nullFlavo Bria, b10e d6fc-f Memoria 14:00:00 14:00:00 Hyperlipid r Gaurav GRANT 222-4e62-9 l emia , 87b-81f30d Linda nn myalgia e3789h 2014-06-22 2014-06-22 3M X HTN, nullFlavo Bria, b2e0 a39a-7 Memoria 14:00:00 14:00:00 Hyperlipid r Gaurav GRANT 0ac-4305-b l emia , 66d-60cbf5 Linda nn myalgia 8x196o 2014-05-18 2014-05-18 Unknown nullFlavo Bria, 26c3d4 f9-0 Memoria 21:28:00 21:28:00 r Gaurav GRANT 70c-4491-a l 4f0-4y785y Linda nn c227ec 2014-05-18 2014-05-18 Unknown nullFlavo Bria, 472b38 88-5 Memoria 21:28:00 21:28:00 r Gaurav GRANT 182-431b-8 l cce-1b46b5 Linda nn c561a3 2014-05-18 2014-05-18 Unknown nullFlavo Bria, 143c52 ee-7 Memoria 21:28:00 21:28:00 r Gaurav GRANT 043-4043-9 l 37d-e0w367 Linda nn 0f5b56 2014-05-18 2014-05-18 Unknown nullFlavo Bria, d8cd1e d6-9 Memoria 21:28:00 21:28:00 r Gaurav GRANT 9x6-80h3-p l w71-ag4d2v Linda nn t93760 2014-05-18 2014-05-18 Unknown nullFlavo Bria, 818921 9e-5 Memoria 21:28:00 21:28:00 r Gaurav GRANT t37-78q2-4 l 44c-7d8e2f Linda nn ce5bd3 2014-05-18 2014-05-18 Unknown nullFlavo Bria, 66da78 4f-3 Memoria 21:28:00 21:28:00 r Gaurav GRANT 6k6-121z-c l 2s3-7y3it1 Linda nn 5b96c5 2014-05-18 2014-05-18 Unknown nullFlavo Bria, 118e91 58-b Memoria 21:28:00 21:28:00 r Gaurav GRANT bee-4172-b l m77-s0a6g3 Linda nn fad0db 2014-05-18 2014-05-18 Unknown nullFlavo Bria, f1c98b 93-6 Memoria 21:28:00 21:28:00 r Gaurav GRANT 33e-4546-b l 6l6-288u81 Linda nn 69w731 2014-05-18 2014-05-18 Unknown nullFlavo Bria, 3f4e7e 8b-6 Memoria 21:28:00 21:28:00 r Gaurav GRANT 107-4198-a l 7df-9ad1c2 Linda nn 5aea56 2014-05-18 2014-05-18 Unknown nullFlavo Bria, 2xi638 73-6 Memoria 21:28:00 21:28:00 r Gaurav GRANT 0ec-404f-b l t74-44lo4m Linda nn 0a41c2 2014-05-18 2014-05-18 Unknown nullFlavo Bria, 9aa082 16-c Memoria 21:28:00 21:28:00 r Gaurav GRANT 141-4f60-9 l c6q-wg11ms Linda nn a0k477 2014-05-18 2014-05-18 Unknown nullFlavo Bria, 0c0c9c f6-e Memoria 21:28:00 21:28:00 r Gaurav GRANT 23b-46cf-8 l 524-7b05d9 Linda nn 950b2b 2014-05-18 2014-05-18 Unknown nullFlavo Bria, 455ce7 14-0 Memoria 21:28:00 21:28:00 r Gaurav GRANT 052-4fe7-b l v90-7g8s3a [facility] nn 4514c2 2014-05-18 2014-05-18 Unknown nullFlavo Bria, 0u6542 c2-1 Memoria 21:28:00 21:28:00 r Gaurav GRANT 4r2-00k4-0 l u21-z69gzu [facility] nn 2b0713 2014-05-18 2014-05-18 Unknown nullFlavo Bria, 3jr162 23-3 Memoria 20:28:00 20:28:00 r Gaurav GRANT k30-8a86-p l 7n9-3163s4 [facility] nn 24bab2 2014-05-18 2014-05-18 Unknown nullFlavo Bria, 129fd9 48-d Memoria 20:28:00 20:28:00 r Gaurav GRANT a6g-57wb-v l 261-1cba60 [facility] nn 02e40f 2014-05-18 2014-05-18 Unknown nullFlavo Bria, 3ae0f2 e0-d Memoria 20:28:00 20:28:00 r Gaurav GRANT c52-4r6x-z l 6f8-8012u9 [facility] nn 8c6c5a 2014-05-18 2014-05-18 Unknown nullFlavo Bria, 740894 ee-a Memoria 20:28:00 20:28:00 r Gaurav GRANT 769-429a-9 l [id number] [facility] 007090 7407-02-09 2014-05-18 Unknown nullFlavo Bria, 7d06b5 54-d Memoria 20:28:00 20:28:00 r Gaurav GRANT 5fb-415f-b l 20f-31g819 [facility] 65ddea 2014-05-18 2014-05-18 Unknown nullFlavo Bria, y75502 84-1 Memoria 20:28:00 20:28:00 r Gaurav GRANT 685-4be7-9 l 380-e657fb [facility] tt0803 2014-03-23 2014-03-23 3 Months nullFlavo Bria, bf1a2 ecc-b Memoria 16:15:00 16:15:00 (Reason: r Gaurav GRANT 875-4230-9 l Thyroid , 079-035e57 Her mcguire cholestero q59211 l ) 2014-03-23 2014-03-23 3 Months nullFlavo Bria, 6a8db a8a-7 Memoria 16:15:00 16:15:00 (Reason: patti Nolasco MD e67-4299-5 l Thyroid , 6aa-e6c2bd Her mcguire cholestero 2cbaaa l ) 2014-03-23 2014-03-23 3 Months nullFlavo Bria, d0b1d 3cb-e Memoria 16:15:00 16:15:00 (Reason: patti Nolasco MD v23-7i0s-2 l Thyroid , f4s-p56422 Her mcguire cholestero 902e3c l ) 2014-03-23 2014-03-23 3 Months nullFlavo Bria, 75efc c6d-c Memoria 16:15:00 16:15:00 (Reason: patti Nolasco MD ac2-429f-9 l Thyroid , 525-17fd00 Her mcguire cholestero cgq953 l ) 2014-03-23 2014-03-23 3 Months nullFlavo Bria, 9ef87 370-c Memoria 16:15:00 16:15:00 (Reason: patti Nolasco MD 6j0-3z37-h l Thyroid , n3k-n86120 Her mcguire cholestero 69711u l ) 2014-03-23 2014-03-23 3 Months nullFlavo Bria, cdfe9 db6-c Memoria 16:15:00 16:15:00 (Reason: patti Nolasco MD y51-5rig-u l Thyroid , 36c-d124ef Her mc[facility] cholestero 47fb8f l ) 2014-03-23 2014-03-23 3 Months nullFlavo Bria, 82b75 297-9 Memoria 16:15:00 16:15:00 (Reason: patti Nolasco MD a9y-73c7-3 l Thyroid , cbd-5294a9 Her mc[facility]ire cholestero 4df9e0 l ) 2014-03-23 2014-03-23 3 Months nullFlavo Bria, fb8e7 0c9-6 Memoria 16:15:00 16:15:00 (Reason: patti Nolasco MD j6z-05a1-i l Thyroid , k16-69wn95 Her mcgu[facility] cholestero 4dfb20 l ) 2014-03-23 2014-03-23 3 Months nullFlavo Bria, a7883 cea-5 Memoria 16:15:00 16:15:00 (Reason: patti Nolasco MD 0t6-960s-j l Thyroid , e27-5o6ch3 Her mcguire cholestero 325018 l ) 2014-03-23 2014-03-23 3 Months nullFlavo Bria, 952fa 7d5-e Memoria 16:15:00 16:15:00 (Reason: patti Nolasco MD bf4-4cdb-9 l Thyroid , 9fd-6f55a2 Her mcguire cholestero 2n5134 l ) 2014-03-23 2014-03-23 3 Months nullFlavo Bria, 4ca68 697-9 Memoria 16:15:00 16:15:00 (Reason: patti Nolasco MD 94c-4228-8 l Thyroid , 00a-8b71fb Her mcguire cholestero 9ol329 l ) 2014-03-23 2014-03-23 3 Months nullFlavo Bria, 8fea7 8aa-f Memoria 16:15:00 16:15:00 (Reason: patti Nolasco MD adc-4090-b l Thyroid , j47-u8s4g6 Her mcguire cholestero 8375a1 l ) 2014-03-23 2014-03-23 3 Months nullFlavo Bria, ce8ac a68-8 Memoria 16:15:00 16:15:00 (Reason: patti Nolasco MD x09-788e-2 l Thyroid , 8d5-1j067c Her mcguire cholestero s0h279 l ) 2014-03-23 2014-03-23 3 Months nullFlavo Bria, 8caba cc6-7 Memoria 16:15:00 16:15:00 (Reason: patti Nolasco MD u13-67k6-9 l Thyroid , 994-634514 Her mcguire cholestero a197b8 l ) 2014-03-23 2014-03-23 3 Months nullFlavo Bria, 1a53d 1ae-f [facility]oria 16:15:00 16:15:00 (Reason: patti Nolasco MD 737-4031-8 l Thyroid , 48a-ba45e2 Her mcguire cholestero 53691q l ) 2014-03-23 2014-03-23 3 Months nullFlavo Bria, 06c75 314-b Memoria 15:15:00 15:15:00 (Reason: patti Nolasco MD 0e5-9955-3 l Thyroid , 345-0a4a07 Her mcguire cholestero c7e7eb l ) 2014-03-23 2014-03-23 3 Months nullFlavo Bria, 87434 e8a-c Memoria 15:15:00 15:15:00 (Reason: patti Nolasco MD h68-8yj0-o l Thyroid , 30c-f56b54 Her mcguire cholestero 5b14b6 l ) 2014-03-23 2014-03-23 3 Months nullFlavreji Fraser, a7641 5be-d Memoria 15:15:00 15:15:00 (Reason: patti Nolasco MD fe8-47bc-a l Thyroid , f4m-127614 Her mcguire cholestero fka774 l ) 2014-03-23 2014-03-23 3 Months nullMalik Fraser, ec57f b9c-8 Memoria 15:15:00 15:15:00 (Reason: patti Nolasco MD ffd-4c4c-b l Thyroid , j6x-7r0uc5 Her mcguire cholestero 626b74 l ) 2014-03-23 2014-03-23 3 Months nullMalik Fraser, 73833 ee3-f Memoria 15:15:00 15:15:00 (Reason: patti Nolasco MD 598-4a5f-8 l Thyroid , dfc-699fe6 Her mcguire cholestero b586e6 l ) 2014-03-23 2014-03-23 3 Months nullMalik Fraser, e9164 66c-8 Memoria 15:15:00 15:15:00 (Reason: patti Nolasco MD k20-3cv2-a l Thyroid , 271-32174o Her mcguire cholestero e39fee l ) 2014-02-04 2014-02-04 Medication Sonya Fraser, d45 85f12-4 Memoria 19:30:00 19:30:00 s Issue patti Nolasco MD 38b-43a2-8 l 7v5-6e44fq Linda nn 99b0c5 2014-02-04 2014-02-04 Medication Sonya Fraser, a73 9d814-5 Memoria 19:30:00 19:30:00 s Issue patti Nolasco MD 366-49e2-8 l 8df-d31b85 [facility] nn 167479 0715-10-29 2014-02-04 Medication nullFlavo Bria, e64 174r6-y Memoria 19:30:00 19:30:00 s Issue patti Nolasco MD ce0-4911-9 l 44f-103322 [facility] nn o2p131 2014-02-04 2014-02-04 Medication nullFlavo Bria, ce0 qb7v2-4 Memoria 19:30:00 19:30:00 s Issue patti Nolasco MD 48e-4319-a l cea-0932e1 [facility] nn zc5289 2014-02-04 2014-02-04 Medication nullFlavo Bria, 283 b7997-c Memoria 19:30:00 19:30:00 s Issue patti Nolasco MD a39-6b75-2 l 7o6-a3q8a4 [facility] nn 57831d 2014-02-04 2014-02-04 Medication nullFlavo Bria, 482 21lp3-g [facility]oria 19:30:00 19:30:00 s Issue patti Nolasco MD ce4-481f-8 l 127-f730b2 [facility] nn 919ec4 2014-02-04 2014-02-04 Medication nullFlavo Bria, 9bf eq54a-3 Memoria 19:30:00 19:30:00 s Issue patti Nolasco MD 858-4d3e-9 l v47-ul40od [facility] nn 5jv182 2014-02-04 2014-02-04 Medication nullFlavo Bria, 294 29n36-k Memoria 19:30:00 19:30:00 s Issue patti Nolasco MD 94f-4eb8-a l 731-be0e5c [facility] nn 1303a5 2014-02-04 2014-02-04 Medication nullFlavo Bria, 974 ffd06-0 Memoria 19:30:00 19:30:00 s Issue patti Nolasco MD 2i3-11tf-2 l 5x6-6047w2 [facility] nn ae66ac 2014-02-04 2014-02-04 Medication nullFlavo Bria, 6d7 21of0-2 Memoria 19:30:00 19:30:00 s Issue patti Nolasco MD bf7-4d98-a l 41b-cd3a74 Linda nn 980b6f 2014-02-04 2014-02-04 Medication nullFlavo Bria, 786 73yr1-7 Memoria 19:30:00 19:30:00 s Issue patti Nolasco MD bc7-4162-8 l 23a-ea1bdf Linda nn rr482n 2014-02-04 2014-02-04 Medication nullFlavo Bria, b56 5x165-6 Memoria 19:30:00 19:30:00 s Issue patti Nolasco MD o90-53pt-j l 10e-02t949 Linda nn 59a557 2014-02-04 2014-02-04 Medication nullFlavo Bria, 738 297a3-7 Memoria 19:30:00 19:30:00 s Issue patti Nolasco MD 5g7-412f-1 l i6n-1q1umf Linda nn a3d74b 2014-02-04 2014-02-04 Medication nullFlavo Bria, 2b1 1a319-0 Memoria 19:30:00 19:30:00 s Issue patti Nolasco MD 7s3-08f0-o l shakir-b7fa75 Linda nn 45243s 2014-02-04 2014-02-04 Medication nullFlavo Bria, 29d 3i619-4 Memoria 19:30:00 19:30:00 s Issue patti Nolasco MD i39-9070-3 l 870-72ae9e Linda nn 376b9a 2014-02-04 2014-02-04 Medication nullFlavo Bria, 425 6mr1d-i Memoria 19:30:00 19:30:00 s Issue patti Nolasco MD 622-4348-b l ef5-66k822 Linda nn f82926 2014-02-04 2014-02-04 Medication nullFlavo Bria, 786 p6ahk-r Memoria 18:30:00 18:30:00 s Issue patti Nolasco MD c7n-318h-p l 28e-f0l293 Linda nn 82bce3 2014-02-04 2014-02-04 Medication nullFlavo Bria, 858 s7767-3 Memoria 18:30:00 18:30:00 s Issue patti Nolasco MD fde-4ea1-b l n1a-3dv726 [facility] nn aebc34 2014-02-04 2014-02-04 Medication nullFlavo Bria, 289 j0510-4 Memoria 18:30:00 18:30:00 s Issue patti Nolasco MD 0w1-605x-o l h05-5d6754 [facility] nn fos850 2014-02-04 2014-02-04 Medication nullFlavo Bria, 6a3 14232-3 Memoria 18:30:00 18:30:00 s Issue patti Nolasco MD df3-470e-8 l ec1-ffc0b6 [facility] nn 9dd6ca 2014-02-04 2014-02-04 Medication nullFlavo Bria, 6a4 p46r7-1 Memoria 18:30:00 18:30:00 s Issue patti Nolasco MD v74-7399-7 l ca3-d26a72 [facility] nn 737910 6214-10-29 2014-02-04 Medication nullFlavo Bria, c72 z0n9a-9 Memoria 18:30:00 18:30:00 s Issue patti Nolasco MD 19d-471a-8 l h1h-o019ts [facility] nn 71258x 2013-12-18 2013-12-18 2 Weeks nullFlavo Bria, 4b3ef9 aa-3 Memoria 14:45:00 14:45:00 (Reason: patti Nolasco MD 06d-4ad8-9 l Thyroid , w82-ji5p1f Her mcguire fibromyalg 999b57 ia ,osteoporo sis ) 2013-12-18 2013-12-18 2 Weeks nullFlavo Bria, 290379 d5-e [facility]oria 14:45:00 14:45:00 (Reason: patti Nolasco MD cb2-4bdf-b l Thyroid , 2aa-8294ce Her mcguire fibromyalg 919fc0 ia ,osteoporo sis ) 2013-12-18 2013-12-18 2 Weeks nullFlavo Bria, f681b0 aa-6 Memoria 14:45:00 14:45:00 (Reason: patti Nolasco MD ef7-4e6b-a l Thyroid , 618-0372f4 Her mcguire fibromyalg w15779 ia ,osteoporo sis ) 2013-12-18 2013-12-18 2 Weeks nullFlavo Bria, b8e0ca 19-e [facility]oria 14:45:00 14:45:00 (Reason: patti Nolasco MD 443-4068-9 l Thyroid , 4d8-692h33 Her mcguire fibromyalg 16edce ia ,osteoporo sis ) 2013-12-18 2013-12-18 2 Weeks nullFlavo Bria, f2ebe3 98-a [facility]oria 14:45:00 14:45:00 (Reason: patti Nolasco MD 8p3-46fl-r l Thyroid , y65-0j5w90 Her mcguire fibromyalg 5s904a ia ,osteoporo sis ) 2013-12-18 2013-12-18 2 Weeks nullFlavo Bria, 02d81f e4-7 Memoria 14:45:00 14:45:00 (Reason: patti Nolasco MD k78-13v7-6 l Thyroid , 996-n1767a Her mcguire fibromyalg ye4797 ia ,osteoporo sis ) 2013-12-18 2013-12-18 2 Weeks nullFlavo Bria, 9z226k 9d-b [facility] 14:45:00 14:45:00 (Reason: patti Nolasco MD 415-440c-b l Thyroid , 814-bfff4f Her mcguire fibromyalg a9c7ac ia ,osteoporo sis ) 2013-12-18 2013-12-18 2 Weeks nullFlavo Bria, efaae2 26-f [facility] 14:45:00 14:45:00 (Reason: patti Nolasco MD 446-4378-9 l Thyroid , 146-6gd848 Her mcguire fibromyalg 663e1d ia ,osteoporo sis ) 2013-12-18 2013-12-18 2 Weeks nullFlavo Bria, 6ae78b dc-5 [facility]oria 14:45:00 14:45:00 (Reason: patti Nolasco MD 958-4cfb-8 l Thyroid , i9x-u59j31 Her mcguire fibromyalg 8b3c15 ia ,osteoporo sis ) 2013-12-18 2013-12-18 2 Weeks nullFlavo Bria, 70ad16 9e-5 Memoria 14:45:00 14:45:00 (Reason: patti Nolasco MD 654-41b7-8 l Thyroid , h80-j8ff1q Her mcguire fibromyalg 60b0ba ia ,osteoporo sis ) 2013-12-18 2013-12-18 2 Weeks nullFlavo Bria, 35f2d6 6c-7 [facility]oria 14:45:00 14:45:00 (Reason: patti Nolasco MD 118-4906-8 l Thyroid , aee-l6v211 Her mcguire fibromyalg 60800i ia ,osteoporo sis ) 2013-12-18 2013-12-18 2 Weeks nullFlavo Bria, 6846d4 45-3 Memoria 14:45:00 14:45:00 (Reason: patti Nolasco MD h65-2264-i l Thyroid , 8ad-3d4b20 Her mcguire fibromyalg 28cf4d ia ,osteoporo sis ) 2013-12-18 2013-12-18 2 Weeks nullFlavo Bria, 1s0879 24-0 [facility]oria 14:45:00 14:45:00 (Reason: patti Nolasco MD ab5-4029-9 l Thyroid , 2be-960c52 Her mcguire fibromyalg 045605 ia ,osteoporo sis ) 2013-12-18 2013-12-18 2 Weeks nullFlavo Bria, 82c0c6 a4-9 Memoria 14:45:00 14:45:00 (Reason: patti Nolasco MD s80-6e67-z l Thyroid , f66-5jef41 Her mcguire fibromyalg 130fd0 ia ,osteoporo sis ) 2013-12-18 2013-12-18 2 Weeks nullFlavo Bria, 2e7a78 1c-1 Memoria 14:45:00 14:45:00 (Reason: patti Nolasco MD 991-41de-a l Thyroid , j6b-7lr7a1 Her mcguire fibromyalg 3u1829 ia ,osteoporo sis ) 2013-12-18 2013-12-18 2 Weeks nullFlavo Bria, 97325e db-0 Memoria 14:45:00 14:45:00 (Reason: patti Nolasco MD 524-410e-a l Thyroid , gladys-eca3b2 Her mcguire fibromyalg 82d1f2 ia ,osteoporo sis ) 2013-12-18 2013-12-18 2 Weeks nullFlavo Bria, 0a2e26 5b-8 Memoria 13:45:00 13:45:00 (Reason: patti Nolasco MD sebas-44da-a l Thyroid , l86-v793gd Her mcguire fibromyalg 17s283 ia ,osteoporo sis ) 2013-12-18 2013-12-18 2 Weeks nullFlavo Bria, b2c4f6 8d-d Memoria 13:45:00 13:45:00 (Reason: patti Nolasco MD 5db-4b0a-b l Thyroid , 7l3-3ym761 Her mcguire fibromyalg 3f7d33 ia ,osteoporo sis ) 2013-12-18 2013-12-18 2 Weeks nullFlavo Bria, 80h898 b9-f [facility]oria 13:45:00 13:45:00 (Reason: patti Nolasco MD 1bf-4fa1-9 l Thyroid , 06d-5jn451 Her mcguire fibromyalg 9e6d70 ia ,osteoporo sis ) 2013-12-18 2013-12-18 2 Weeks nullFlavo Bria, xt557w 53-5 Memoria 13:45:00 13:45:00 (Reason: patti Nolasco MD 039-4e09-8 l Thyroid , 42c-c1e8c4 Her mcguire fibromyalg b27abd ia ,osteoporo sis ) 2013-12-18 2013-12-18 2 Weeks nullFlavo Bria, 2813e8 b2-3 Memoria 13:45:00 13:45:00 (Reason: patti Nolasco MD fb5-47ba-8 l Thyroid , 1h6-32a2j7 Her mcguire fibromyalg d15a34 ia ,osteoporo sis ) 2013-12-18 2013-12-18 2 Weeks nullFlavo Bria, 60bb36 5e-3 Memoria 13:45:00 13:45:00 (Reason: patti Nolasco MD b3u-808x-w l Thyroid , k6k-m3xa4i Her mcguire fibromyalg 3082d9 ia ,osteoporo sis ) 2013-12-18 2013-12-18 2 Weeks nullFlavo Bria, p2584e ac-9 [facility]oria 13:45:00 13:45:00 (Reason: patti Nolasco MD 87a-452a-9 l Thyroid , ca7-adeeb5 Her mcguire fibromyalg f8f5ca ia ,osteoporo sis ) 2013-12-06 2013-12-06 Unknown nullFlavo Bria, 48c256 5c-a [facility] 01:43:00 01:43:00 r Gaurav GRANT 76c-48f1-9 l bce-8270ee Linda nn [id number] 2013-12-06 2013-12-06 Unknown nullFlavo Bria, 0e07dd 34-5 [facility] 01:43:00 01:43:00 r Gaurav GRANT 4a3-5486-7 l [id number] [facility] nn afcab7 2013-12-06 2013-12-06 Unknown nullFlavo Bria, e83dff d0-e [facility] 01:43:00 01:43:00 r Gaurav GRANT 300-429c-b l [id number] [facility] nn af9b3b 2013-12-06 2013-12-06 Unknown nullFlavo Bria, c3b05a da-e [facility] 01:43:00 01:43:00 r Gaurav GRANT m4r-8976-9 l [id number] [facility] nn c869b7 2013-12-06 2013-12-06 Unknown nullFlavo Bria, 63cb93 42-9 Memoria 01:43:00 01:43:00 r Gaurav GRANT a76-00i8-m l ccc-85f5b7 [facility] nn 48689p 2013-12-06 2013-12-06 Unknown nullFlavo Bria, [id number] ad-4 [facility] 01:43:00 01:43:00 r Gaurav GRANT 4q8-906v-8 l 348-m3f069 [facility] nn 255174 7431-08-30 2013-12-06 Unknown nullFlavo Bria, 113d1c 61-b [facility] 01:43:00 01:43:00 r Gaurav GRANT fa7-46d0-b l [id number]-536229 [facility] nn a6eb61 2013-12-06 2013-12-06 Unknown nullFlavo Bria, d575e4 8b-6 [facility] 01:43:00 01:43:00 r Gaurav GRANT 0p1-0q08-1 l 871-b924cb [facility] nn 344f73 2013-12-06 2013-12-06 Unknown nullFlavo Bria, e3215a b4-6 [facility] 01:43:00 01:43:00 r Gaurav GRANT 888-4ae5-b l t3u-l3246o Linda nn c37ef3 2013-12-06 2013-12-06 Unknown nullFlavo Bria, f88d90 f9-e [facility] 01:43:00 01:43:00 r Gaurav GRANT 691-42f5-9 l 4dd-5ecd20 Linda nn f98f84 2013-12-06 2013-12-06 Unknown nullFlavo Bria, 82442g 17-0 [facility] 01:43:00 01:43:00 r Gaurav GRANT 4fd-43eb-b l y6e-2oawk2 Linda nn f926c7 2013-12-06 2013-12-06 Unknown nullFlavo Bria, 6e062q 28-5 [facility] 01:43:00 01:43:00 r Gaurav GRANT p7b-6g68-t l 72e-217f96 Linda nn 78371s 2013-12-06 2013-12-06 Unknown nullFlavo Bria, 3w415o 09-1 [facility] 01:43:00 01:43:00 r Gaurav GRANT 9be-44a0-8 l o84-4955uc Linda nn f5a5f7 2013-12-06 2013-12-06 Unknown nullFlavo Bria, bbk261 61-c [facility] 01:43:00 01:43:00 r Gaurav GRANT h1v-5277-7 l o9m-wl4d27 Linda nn a99a9f 2013-12-06 2013-12-06 Unknown nullFlavo Bria, d7227e 72-d [facility] 01:43:00 01:43:00 r Gaurav GRANT 339-4ba1-9 l ddc-afee6c Linda nn 48a7aa 2013-12-06 2013-12-06 Unknown nullFlavo Bria, 9521d2 42-2 [facility] 01:43:00 01:43:00 r Gaurav GRANT 3p8-359m-8 l y0d-9h51e4 Linda nn f79d2f 2013-12-06 2013-12-06 Unknown nullFlavo Bria, 91b9fe 0e-8 [facility] 00:43:00 00:43:00 r Gaurav GRANT v7r-4w05-5 l m9s-051r55 Linda nn 25d4ff 2013-12-06 2013-12-06 Unknown nullFlavo Bria, 55u212 16-0 [facility]oria 00:43:00 00:43:00 r Gaurav GRANT u34-9t1u-f l 103-9079f9 Linda nn [id number] 5820-08-30 2013-12-06 Unknown nullFlavo Bria, f8d58a 6e-9 [facility] 00:43:00 00:43:00 r Gaurav GRANT 9j3-6sn0-8 l 903-15l684 Linda nn 87z038 2013-12-06 2013-12-06 Unknown nullFlavo Bria, 37c7d5 cf-4 [facility] 00:43:00 00:43:00 r Gaurav GRANT g1y-3388-n l bc8-e44b4d Linda nn f616b2 2013-12-06 2013-12-06 Unknown nullFlavo Bria, 08a22d c6-0 [facility] 00:43:00 00:43:00 r Gaurav GRANT 6cb-4b13-8 l [id number] Linda nn ddf2c0 2013-12-06 2013-12-06 Unknown nullFlavo Bria, 6b8fe0 5b-0 [facility] 00:43:00 00:43:00 patti Nolasco MD 123-4f83-9 l [id number] Linda nn 9m420u 2013-12-06 2013-12-06 Unknown nullFlavo Bria, e7fb72 21-7 [facility] 00:43:00 00:43:00 r Gaurav GRANT ddb-4d49-a l susan-bd8e4b Linda nn 4a27e7 2013-12-06 2013-12-06 Unknown nullFlavo Bria, [id number] 0a-a [facility] 00:43:00 00:43:00 r Gaurav GRANT 922-456b-9 l 1fd-bce3c8 Linda nn d31d53 2013-12-04 2013-12-04 Annual nullFlavo Bria, 03dd05 08-a [facility] 15:15:00 15:15:00 Pysical r Gaurav GRANT 6q8-16r6-1 l 84e-dad18f Linda nn 4xn604 2013-12-04 2013-12-04 Annual nullFlavo Bria, c8e7f0 ef-4 [facility] 15:15:00 15:15:00 Pysical r Gaurav GRANT 71e-4423-b l o7y-105p12 Linda nn 6bt164 2013-12-04 2013-12-04 Annual nullFlavo Bria, eba8ad 76-d [facility] 15:15:00 15:15:00 Pysical r Gaurav GRANT t05-3236-t l 155-2y326w Linda nn 5cae58 2013-12-04 2013-12-04 Annual nullFlavo Bria, 437d19 42-a [facility] 15:15:00 15:15:00 Pysical patti Nolasco MD p53-1941-q l ebb-fc3b55 Linda nn 4a7624 2013-12-04 2013-12-04 Annual nullFlavo Bria, 03ecce bc-d [facility] 15:15:00 15:15:00 Pysical r Gaurav GRANT 19f-48ab-8 l 5c9-7m8uq1 Linda nn 6c03d0 2013-12-04 2013-12-04 Annual nullFlavo Bria, ad39a6 31-f [facility] 15:15:00 15:15:00 Pysical r Gaurav GRANT 556-4204-a l 505-91622m Linda nn 143a24 2013-12-04 2013-12-04 Annual nullFlavo Bria, 72dc70 9c-f [facility] 15:15:00 15:15:00 Pysical r Gaurav GRANT eb8-4a9b-a l x78-p5996s Linda nn 70cbac 2013-12-04 2013-12-04 Annual nullFlavo Bria, 6dd2c0 7e-1 [facility] 15:15:00 15:15:00 Pysical patti Nolasco MD f65-60nq-q l 154-2g3302 Linda nn f4e40c 2013-12-04 2013-12-04 Annual nullFlavo Bria, m7o360 51-2 [facility] 15:15:00 15:15:00 Pysical patti Nolasco MD o15-96k9-r l 316-196cfa Linda nn edv793 2013-12-04 2013-12-04 Annual nullFlavo Bria, 0b7de6 7f-8 [facility] 15:15:00 15:15:00 Pysical r Gaurav GRANT 84c-4d37-8 l 7t1-6b9646 [facility] nn 0049e3 2013-12-04 2013-12-04 Annual nullFlavo Bria, 6e4b8e dc-9 [facility] 15:15:00 15:15:00 Pysical r Gaurav GRANT 877-43d3-8 l [id number]-tc0598 Linda nn 583782 9203-08-28 2013-12-04 Annual nullFlavo Bria, 6v107b c5-1 [facility] 15:15:00 15:15:00 Pysical r Gaurav GRANT w15-4g63-9 l c25-6w2ro0 [facility] nn 8468b6 2013-12-04 2013-12-04 Annual nullFlavo Bria, 362221 be-6 [facility] 15:15:00 15:15:00 Pysical r Gaurav GRANT 4i3-6z51-2 l shaan-d94cf1 [facility] nn b12c91 2013-12-04 2013-12-04 Annual nullFlavo Bria, y9t402 58-8 Mem[facility] 15:15:00 15:15:00 Pysical r Gaurav GRANT [id number]-a l [id number] [facility] nn [id number] 2013-12-04 2013-12-04 Annual nullFlavo Bria, c19e9e 15-1 Memoria 15:15:00 15:15:00 Pysical r Gaurav GRANT 366-4cf2-b l [id number] [facility] nn [id number] 2013-12-04 2013-12-04 Annual nullFlavo Bria, [id number] 3f-9 Memoria 15:15:00 15:15:00 Pysical r Gaurav GRANT [phone] l [id number] [facility] nn [id number] 2013-12-04 2013-12-04 Annual nullFlavo Bria, 8b3daa c3-9 Memoria 14:15:00 14:15:00 Pysical r Gaurav GRANT ecb-48db-9 l [id number] [facility] nn [id number] 2013-12-04 2013-12-04 Annual nullFlavo Bria, k9q517 0f-6 Memoria 14:15:00 14:15:00 Pysical patti Nolasco MD y8u-5375-1 l [id number] Linda nn [id number] 2013-12-04 2013-12-04 Annual nullFlavo Bria, ca6b95 c5-e Memoria 14:15:00 14:15:00 Pysical patti Nolasco MD 748-4c60-9 l [id number] Linda nn [id number] 2013-12-04 2013-12-04 Annual nullFlavo Bria, zh696u 67-1 Memoria 14:15:00 14:15:00 Pysical patti Nolasco MD 78d-47af-a l [id number] Linda nn [id number] 2013-12-04 2013-12-04 Annual nullFlavo Bria, vu1813 9c-a Memoria 14:15:00 14:15:00 Pysical patti Nolasco MD u24-913u-5 l [id number] Linda nn [id number] 2013-12-04 2013-12-04 Annual nullFlavo Bria, 014922 97-b Memoria 14:15:00 14:15:00 Pysical patti Nolasco MD 5s0-1l73-l l [id number] Linda nn [id number] 2013-12-04 2013-12-04 Annual nullFlavo Bria, 7ecb9d 6a-d Memoria 14:15:00 14:15:00 Pysical patti Nolasco MD 960-420a-b l diego-678efe [facility] nn [id number] Results Test Description Test Time Test Comments Results Result Sourc e Comments [place], TIMBER SELECTOR IN 2017-12-21 Reason for FLUOROSCOPIC UNIT OR/30 MINUTE 11:12:00 exam:->pain UTILIZED-NO INCREMENTS INTERPRETATION REQUESTED. /FREE T4 IF INDICATED 2017-12-13 06:42:00 Test Item Value Reference Range Interpretation Comme nts THYROID STIMULATING HORMONE (BEAKER) (test code = 772) 2.89 uIU/mL 0.35-4.94 BASIC METABOLIC [id number] 06:22:00 Test Item Value Reference Range Interpretation [...] PATIEN TS. CBC W/PLT COUNT & AUTO [id number] 06:14:00 Test Item Value Reference Range Interpretation [...] code = 2801) LACTIC ACID, VENOUS, WHOLE [id number] 15:27:00 Test Item Value Reference Range Interpretation Comments LACTATE BLOOD VENOUS (2) (BEAKER) 1.1 mmol/L 0.5-2.2 (test code = 2872) Effective 08/11/2015: Units/Reference Range ChangeNew: 0.5-2.2 mmol/L Previous: 5-20 mg/dLBASIC METABOLIC [id number] 13:31:00 Test Item Value Reference Range Interpretation [...] PATIEN TS. CBC W/PLT COUNT & AUTO [id number] 13:05:00 Test Item Value Reference Range Interpretation [...] PERCENT (BEAKER) (test code = 2801) [place], TIMBER SELECTOR IN OR/30 MINUTE [id number] 11:03:00Reason for exam:- >IMPLANTATION OF INTRATHECAL PUMPFINAL REPORT Single fluoroscopic spine image. Fluoroscopy time 15.2 seconds. Fluoroscopy was not performed by the undersigned. Refer to procedure notes for diagnostic and therapeutic detail. Signed: Tiara Pedersen Verified Date/Time: 12/11/2017 11:03:55 Reading Location:[facility] Radiology Reading Room TISSUE EXAM 2017-12-04 17:14:00Surgical Pathology Report Case: [id number] Authorizing Provider: Jerome Arias MD Collected: 11/30/2017 1327 Ordering Location: [facility] PERIOPERATIVE Received: 11/30/2017 1424 SERVICES Pathologist: Susan Ramos MD Specimen: Explant, hardware NEURAL STIMULATOR, REMOVAL: - HARDWARE IDENTIFIED (GROSS DIAGNOSIS) Signing Pathologist Direct Phone Line: [phone] pain disorderHardware, neural stimulator The specimen is received in a fluidless container labeled with patient information and labeled "hardware neural stimulator" and consists of a neural stimulator battery measuring5.2 x 5 x 0.6 cm with two attached leads measuring 60 cm in length x 0.1 cm in diameter. Specimen serial number [id number]. The specimen is submitted for gross identification only. /plMR, SPINE, THORACIC, [id number] 11:58:00FINAL REPORT MR thoracic and lumbar spine [...] MDRort Verified Date/Time: 12/04/2017 11:58:05 Reading Location: [address] Neuro Reading Room MR, SPINE, LUMBAR, [id number] 11:58:00FINAL REPORT MR thoracic and lumbar spine [...] [place] Verified Date/Time: 12/04/2017 11:58:05 Reading Location: [place] [id number] Neuro Reading Room RAD, CHEST, 2 VIEWS [...] [place] Verified Date/Time: 12/01/2017 16:14:55 Reading Location: [facility] C013X Ortho Consult Reading Room ALYSIS W/ REFLEX URINE [id number] 10:01:00 Test Item Value Reference Range Interpretation [...] SOURCE(BEAKER) (test code = 2795) BASIC METABOLIC [id number] 09:45:00 Test Item Value Reference Range Interpretation [...] S NOT APPLICABLE FOR DIALYSIS PATIEN TS. [id number] 09:26:00 Test Item Value Reference Range Interpretation Comments PARTIAL THROMBOPLASTIN TIME 36.9 seconds 22.5-36.0 H (BEAKER) (test code = 760) PROTHROMBIN TIME/[id number] 09:25:00 Test Item Value Reference Range Interpretation [...] (test code = 2801) AFB CULTURE + [id number] 14:00:00 Test Item Value Reference Range Interpretation Comments CULTURE (BEAKER) (test No acid-fast bacilli code = 1095) isolated in 42 days AFB SMEAR (BEAKER) No acid fast bacilli (test code = 994) seen FUNGUS CULTURE + [id number] 15:41:00 Test Item Value Reference Range Interpretation Comments CULTURE (BEAKER) (test No fungus isolated in code = 1095) 28 days FUNGUS SMEAR (BEAKER) No fungi seen (test code = 1406) ANAEROBIC [id number] 04:04:00 Test Item Value Reference Range Interpretation Comments CULTURE (BEAKER) (test No anaerobes isolated code = 1095) SURGICALLY OBTAINED CULTURE + GRAM [id number] 14:12:00 Test Item Value Reference Interpretation Comments [...] (BEAKER) (test code = cocci in clusters 108152) TISSUE [id number] 15:59:00Surgical Pathology Report Case: [id number] Authorizing Provider: Jerome Arias MD Collected: 08/21/2017 1456 Ordering Location: [facility] PERIOPERATIVE Received: 08/22/2017 0819 SERVICES Pathologist: Rebeca Patricia MD Specimen: Explant, HARDWARE HARDWARE, INTRATHECAL PUMP, REMOVAL: - IN MOLD COATER, GROSS IDENTIFICATION ONLY Signing Pathologist Direct Phone Line: [phone] signed by Rebeca Patricia MD on 08/22/2017 at 3:59 PMCG/[id number] pain disorder Hardware The specimen is received in a fluidless container labeled with the patient's information and labeled "hardware" and consists of a programmable pump measuring 8 x 7 x 1.7 cm with a 70 cm lead. The serial number for the programmable pump is "[id number]". The specimen is submitted for gross identification. CG/ew Not performedSPIN/CONCENTRATION [id number] 11:42:00 Test Item Value Reference Range Interpretation Comments CONCENTRATION CHARGED (BEAKER) (test Done code = 2657) [id number] 06:19:00 Test Item Value Reference Range Interpretation [...] = 413) CREATINE KINASE (CK), TOTAL AND [id number] 00:38:00 Test Item Value Reference Range Interpretation Comments CREATINE KINASE TOTAL (BEAKER) 46 U/L 29-200 (test code = 380) CREATINE KINASE-MB (BEAKER) (test 1.0 ng/mL 0.0-6.6 code = 750) CREATINE KINASE-MB INDEX (BEAKER) 2.2 % (test code = 395) CK-MB Reference Range:<6.7 Normal6.7-10.0 Borderline>10.0 AbnormalTROPONIN [id number] 00:38:00 Test Item Value Reference Range Interpretation [...] acute neurological disease, and persistent tachyarrhythmia.HEPATIC FUNCTION [id number] 00:35:00 Test Item Value Reference Range Interpretation [...] code = 8 U/L 6-55 347) PROTHROMBIN TIME/[id number] 00:25:00 Test Item Value Reference Range Interpretation Comments PROTIME (BEAKER) (test code = 15.9 seconds 11.7-14.7 H 759) INR (BEAKER) (test code = 370) 1.3 <=5.9 RECOMMENDED COUMADIN/WARFARIN INR THERAPY RANGESSTANDARD DOSE: 2.0 - 3.0 Includes: PROPHYLAXIS forvenous thrombosis, systemic embolization; TREATMENT for venous thrombosis and/or pulmonary embolus.HIGH RISK: Target INR is 2.5-3.5 for patients with mechanical heart valves.PLATELET [id number] 12:50:00 Test Item Value Reference Range Interpretation Comments PLATELET COUNT (BEAKER) (test 197 K/CU MM 150-450 code = 756) BASIC METABOLIC [id number] 11:36:00 Test Item Value Reference Range Interpretation [...] DIALYSIS PATIEN TS. URINALYSIS W/ REFLEX URINE [id number] 11:28:00 Test Item Value Reference Range Interpretation [...] code = 516) SOURCE(BEAKER) (test code = 0785) CBC W/PLT COUNT & AUTO [id number] 11:27:00 Test Item Value Reference Range Interpretation [...] PERCENT (BEAKER) (test code = 2801) POCT-GLUCOSE [id number] 08:26:00 Test Item Value Reference Range Interpretation Comments POC-GLUCOSE METER 105 mg/dL 70-110 TESTED AT [facility] 6720 (BEAKER) (test code = [place] 1538) [address] BASIC METABOLIC [id number] 06:24:00 Test Item Value Reference Range Interpretation [...] (BEAKER) (test code = 413) BASIC METABOLIC [id number] 05:47:00 Test Item Value Reference Range Interpretation [...] WBC 0-0 (BEAKER) (test code = 413) [id number] 05:12:00 Test Item Value Reference Range Interpretation Comments PHOSPHORUS (BEAKER) (test code = 3.8 mg/dL 2.3-4.7 604) [id number] 05:12:00 Test Item Value Reference Range Interpretation Comments MAGNESIUM (BEAKER) (test code = 1.6 mg/dL 1.6-2.6 627) BASIC METABOLIC [id number] 05:12:00 Test Item Value Reference Range Interpretation [...] APPLICABLE FOR DIALYSIS PATIEN TS. HEPATIC FUNCTION [id number] 05:12:00 Test Item Value Reference Range Interpretation [...] 6-55 347) CBC W/PLT COUNT & AUTO [id number] 04:32:00 Test Item Value Reference Range Interpretation [...] 0-1 PERCENT (BEAKER) (test code = 2801) [id number] 09:47:00 Test Item Value Reference Range Interpretation Comments PHOSPHORUS (BEAKER) (test code = 3.7 mg/dL 2.3-4.7 604) [id number] 09:47:00 Test Item Value Reference Range Interpretation Comments MAGNESIUM (BEAKER) (test code = 1.8 mg/dL 1.6-2.6 627) BASIC METABOLIC [id number] 09:47:00 Test Item Value Reference Range Interpretation [...] APPLICABLE FOR DIALYSIS PATIEN TS. HEPATIC FUNCTION [id number] 09:47:00 Test Item Value Reference Range Interpretation [...] 6-55 347) CBC W/PLT COUNT & AUTO [id number] 09:16:00 Test Item Value Reference Range Interpretation [...] code = 2801) RAD, HAND, 2 VIEWS, [id number] 08:42:00Reason for exam:->history of left forearm/wrist fractureShould [...] [place] Verified Date/Time: 06/19/2017 08:42:08 [facility], FOR[facility], 2 VIEWS, [id number] 08:38:00Reason for exam:->history of left wrist/forearm fractureShould [...] [place] MDR[place] Verified Date/Time: 06/19/2017 08:38:49 Reading Location:[facility] Radiology Reading Room POCT-GLUCOSE [id number] 17:06:00 Test Item Value Reference Range Interpretation Comments POC-GLUCOSE METER 102 mg/dL 70-110 TESTED AT [facility] 6720 (BEAKER) (test code = [place] 1538) [address] T4, [id number] 14:34:00 Test Item Value Reference Range Interpretation Comments FREE T4 (BEAKER) (test code = 655) 1.13 ng/dL 0.70-1.48 [id number] 12:54:00 Test Item Value Reference Range Interpretation Comments PHOSPHORUS (BEAKER) (test code = 3.0 mg/dL 2.3-4.7 604) [id number] 12:54:00 Test Item Value Reference Range Interpretation Comments MAGNESIUM (BEAKER) (test code = 2.1 mg/dL 1.6-2.6 627) BASIC METABOLIC [id number] 12:54:00 Test Item Value Reference Range Interpretation [...] APPLICABLE FOR DIALYSIS PATIEN TS. HEPATIC FUNCTION [id number] 12:54:00 Test Item Value Reference Range Interpretation Comments TOTAL PROTEIN (BEAKER) (test code = 7.2 gm/dL 6.0-8.3 770) ALBUMIN ([facility]) (test code = 1145) 3.5 g/dL 3.5-5.0 BILIRUBIN TOTAL (AKER) (test code 0.4 mg/dL 0.2-1.2 = 377) BILIRUBIN DIRECT (AKER) (test 0.2 mg/dL 0.1-0.5 code = 706) ALKALINE PHOSPHATASE (AKER) (test 60 U/L 40-150 code = 346) AST (SGOT) (BEAKER) (test code = 20 U/L 5-34 353) ALT (SGPT) (AKER) (test code = 9 U/L 6-55 347) HEMOGLOBIN [id number] 12:08:00 Test Item Value Reference Range Interpretation Comments HEMOGLOBIN A1C ([facility]) (test code = 5.8 % 4.3-6.1 368) POCT-GLUCOSE [id number] 11:40:00 Test Item Value Reference Range Interpretation Comments POC-GLUCOSE METER 83 mg/dL 70-110 TESTED AT [facility] 67 ([facility]) (test code = [place] [facility] [address] 1538) TSH/FREE T4 IF [id number] 11:38:00 Test Item Value Reference Range Interpretation Comments THYROID STIMULATING HORMONE 8.19 uIU/mL 0.35-4.94 H ([facility]) (test code = 772) SEDIMENTATION [id number] 11:20:00 Test Item Value Reference Range Interpretation Comments SEDIMENTATION RATE, ERYTHROCYTE 101 mm/HR 0-40 H ([facility]) (test code = 766) LIPID [id number] 08:58:00 Test Item Value Reference Range Interpretation Comments TRIGLYCERIDES ([facility]) (test code = 131 mg/dL 540) CHOLESTEROL (BEAKER) (test code = 203 mg/dL 631) HDL CHOLESTEROL ([facility]) (test code 31 mg/dL = 976) LDL CHOLESTEROL CALCULATED ([facility]) 146 mg/dL (test code = 633) Triglyceride Reference Range: Low Risk <150 Borderline 150-199 High Risk 200-499 Very High Risk >=500Cholesterol Reference Range: Low Risk <200 Borderline 200-239 High Risk >240HDL Cholesterol Reference Range: Low Risk >=60 High Risk <40LDL Cholesterol Reference Range: Optimal <100 Near Optimal 100-129 Borderline 130-159 High 160-189 Very High >=190C-REACTIVE [id number] 08:58:00 Test Item Value Reference Range Interpretation Comments C-REACTIVE PROTEIN (BEAKER) (test 11.13 mg/dL 0.00-0.50 H code = 676) POCT-GLUCOSE [id number] 07:54:00 Test Item Value Reference Range Interpretation Comments POC-GLUCOSE METER 93 mg/dL 70-110 TESTED AT [facility] 6720 (BEAKER) (test code = [place] [address] 1538) CBC W/PLT COUNT & AUTO [id number] 06:52:00 Test Item Value Reference Range Interpretation [...] 0-1 PERCENT (BEAKER) (test code = 2801) PT/[id number] 06:35:00 Test Item Value Reference Range Interpretation [...] 2.5-3.5 for patients with mechanical heart valves.POCT-GLUCOSE [id number] 22:11:00 Test Item Value Reference Range Interpretation Comments POC-GLUCOSE METER 101 mg/dL 70-110 TESTED AT [facility] 6720 ([facility]) (test code = EL[place] [facility] 1538) [address] [place], TIMBER SELECTOR IN OR/30 MINUTE [id number] 11:15:00Reason for exam:- >Implantation of Intrathecal PumpFINAL [...] [place] Verified Date/Time: 06/13/2017 11:15:44 Reading Location: [facility] Radiology Reading Room URINALYSIS W/ REFLEX URINE [id number] 16:47:00 Test Item Value Reference Range Interpretation [...] (test code = 2795) RAD, CHEST, 2 [id number] 12:51:00Reason for exam:->PRE OP TESTINGFINAL REPORT Chest, [...] Verified Date/Time: 05/15/2017 12:51:37 Reading Location: [address] Radiology Reading Room BASIC METABOLIC [id number] 12:14:00 Test Item Value Reference Range Interpretation [...] NOT APPLICABLE FOR DIALYSIS PATIEN TS. PROTHROMBIN TIME/[id number] 11:26:00 Test Item Value Reference Range Interpretation Comments PROTIME (BEAKER) (test code = 15.0 seconds 11.7-14.7 H 759) INR (BEAKER) (test code = 370) 1.2 <=5.9 RECOMMENDED COUMADIN/WARFARIN INR THERAPY RANGESSTANDARD DOSE: 2.0 - 3.0 Includes: PROPHYLAXIS forvenous thrombosis, systemic embolization; TREATMENT for venous thrombosis and/or pulmonary embolus.HIGH RISK: Target INR is 2.5-3.5 for patients with mechanical heart valves.[id number] 11:26:00 Test Item Value Reference Range Interpretation Comments PARTIAL THROMBOPLASTIN TIME 38.1 seconds 22.5-36.0 H (BEAKER) (test code = 760) CBC W/PLT COUNT & AUTO [id number] 11:18:00 Test Item Value Reference Range Interpretation [...] 0-1 PERCENT (BEAKER) (test code = 2801) Tkychzmry9385-05-89 15:01:006.7[facility] RqsljhoOmeraofoj6919-26-75 17:57:0010.0 [facility] TwvucyvBzshejhty9520-40-99 17:57:92468Qbuqrjsf [facility] 2013-05-05 17:57:61964Demaeouu MnrmbihBvpggunlc0262-25-64 17:57:0021[facility] XtgbeuoOhufbquqm5749-56-48 17:57:29933Wldlxjnr BgsvkgcXicbpbrhm5960-37-89 17:57:002.6[facility] NkvrmjmFkytflckr3142-25-05 17:57:90933 MEQ/LMem[facility] Qpyezifyj8376-67-88 17:57:004.3 MEQ/LMemorial QdfieudPnbcyjydh6555-05-10 17:57:000.9[facility] UgoefepHlxgdpram0265-96-26 17:57:003[facility] Cfkdioimc6911-91-23 17:57:00 Test Item Value Reference Range Interpretation Comments BUN/CREAT (test code = BUN/CREAT) 3 6 Memorial XygpyxzUmvnnryel2650-65-74 17:57:003.2[facility]annChem[facility] 2013-05-05 17:57:008.4[facility] BitrbxyBhvjbrcns3832-42-70 17:57:0018[facility] JurtdntIhgccfqzg9426-32-72 17:57:0030[facility] GqpsambDowqwzzck6679-49-81 17:57:0086[facility] GyxlmjvMyynqtlsn3645-63-01 17:57:001.020[facility] Rebnmhoke2583-09-11 17:57:008.0[facility] RnujwmoUtspfyjex3545-78-31 17:57:0010.0 Memorial VpsnprgBevfnqvlg8357-92-94 17:57:86219Buicyogq [facility] 2013-05-05 17:57:35637Fdzgusfo LjxhkrnUkfiqbiwv7592-10-81 17:57:0021[facility] HlmcpgoIrgfbcuff4771-94-22 17:57:16093Tgplkgmw UrtstclTskmirceq1123-95-92 17:57:002.6[facility] KuqqzomSruddfjjd2710-70-93 17:57:80701 MEQ/LMem[facility] Cjkodpfwy6993-39-09 17:57:004.3 MEQ/LMemorial CwuevcmLlkvmhcpo9176-20-68 17:57:000.9[facility] IxruidmLsjlkojvs1819-71-19 17:57:003[facility] Ceaikbmiz7793-51-07 17:57:00 Test Item Value Reference Range Interpretation Comments BUN/CREAT (test code = BUN/CREAT) 3 10-01 Memorial AstwwtyKdehhcgne0189-11-60 17:57:003.2[facility] 2013-05-05 17:57:008.4[facility] ZxwjyafLzxsxpiij1717-26-67 17:57:0018[facility] KidstnnKtscuqzlu1688-32-37 17:57:0030[facility] KjxbvedVewjafues6510-42-43 17:57:0086Mem[facility] LwpbixaUktairzal0741-35-95 17:57:001.020[facility] Dahpkkanz4638-95-03 17:57:008.0[facility] UkkpsfiCdxyqnivff7429-60-75 17:57:0012.2 Memorial FdnvjcpXtqslelwql5853-80-64 17:57:0038.4[facility] HermannHematology 2013-05-05 17:57:20898 K[facility] YmlpeejQgchaskmlm5079-68-35 17:57:0048 Memorial HrinynyVszopqyzwl4088-92-40 17:57:0012.2[facility] HermannHematology 2013-05-05 17:57:0038.4[facility] RijucouWzetruzvua5252-57-96 17:57:07739 K/[facility] Memorial NzlxyiyPhaoeogloa8775-94-53 17:57:0048[facility] HermannSerology 2013-05-05 17:57:00PositiveMemorial TbufrfgLbeezzsk9019-59-00 17:57:00Positive Memorial YackabwHmrpgvgtbx1402-77-16 17:57:00YellowMemorial HermannUrinalysis 2013-05-05 17:57:00OccasionalMemorial PqzlxmcZwoqnmhgjv3745-40-82 17:57:00Yellow Memorial VevksujIcuqkzqejz1321-20-39 17:57:00OccasionalMem[facility] HermannChemistry 2012-04-24 15:54:89163Ukglgurb ZggzotiOqfcdrsie9321-23-03 15:54:92892Jonflgtn SueoamcIhwzuivun1141-54-47 15:54:0038Mem[facility] TqwqejmMbkmgcvqx9082-22-99 15:54:0072Memorial ZkfocprUpsegygsg1550-39-28 15:54:09630 MEQ/LMem[facility]erson Aneabmmec2733-31-99 15:54:004.1 MEQ/LMemorial QqlnpycDquptjlnu6060-85-33 15:54:001.0Memorial SctlnfnJuqrmmfjt7241-83-75 15:54:007[facility] Lznylqbki6086-91-65 15:54:00 Test Item Value Reference Range Interpretation Comments BUN/CREAT (test code = BUN/CREAT) 7 1 625 Memorial XqkioenMraqehoam9203-95-64 15:54:003.7[facility]annChem[facility] 2012-04-24 15:54:008.4[facility] DepswdnVucxuyqkt1426-20-85 15:54:0029Mem[facility] ZtajjstDlwuxsyjb7644-05-64 15:54:0039Memorial LsguwmtXyxrdacte2201-32-57 15:54:0076Memorial BtyrqbqZeckllgdv1942-30-13 15:54:004.680[facility] Lybahtyzlu0012-17-96 15:54:0012.4Mem[facility] KahhhilExdxuvyowi2513-04-57 15:54:00 37.6Memorial IqlbuffGqxuhznrhp5606-02-97 15:54:51381 K/CMMMemorial Gerson Kpgqdoxavq6054-93-69 15:54:00YellowMemorial MosaiduOtstlxpgxf1864-06-44 15:54:00 OccasionalMemorial PuucvpvOpalqwwit3391-17-91 21:40:52739Iqcxgmbw Gerson Vkqqgnevv9788-33-23 21:40:31084Zxrgsgau CmhmgoqWyobwkcnd2326-80-58 21:40:0034 Memorial TnkuanzYuuztzzca5701-47-49 21:40:0049[facility]Chem[facility] 2011-03-14 21:40:83453 MEQ/LMemorial KgwevawVfkphkgmr1420-59-12 21:40:004.1 MEQ/LMemorial PtlufaeScskicght3212-32-62 21:40:000.9[facility]annChem[facility] 2011-03-14 21:40:006[facility] XghijyvDfoxqqjpo7818-37-12 21:40:00 Test Item Value Reference Range Interpretation Comments BUN/CREAT (test code = BUN/CREAT) 7 1 10-01 Memorial YodhqqrFwrekwmqr6059-83-57 21:40:003.9[facility]annChem[facility] 2011-03-14 21:40:009.0[facility]orial MmiuukkDfxrkumko7686-96-33 21:40:0027Mem[facility] DcyihogZdcgmjgtp7295-61-48 21:40:0034Memorial BecunljKrgpisjfs5266-85-04 21:40:0076Mem[facility] UjnagjeErvewlwrp6954-58-81 21:40:000.524[facility] Aybmlcypct0553-02-36 21:40:0012.2[facility]orial UfkoqjrEtkjytdyjf0978-98-86 21:40:00 35.7Memorial JwuyzykYjjdvkfekz3207-33-37 21:40:76715 K/CMMMemorial Gerson Smdqyfiyjc2925-77-52 21:40:00YellowMemorial MgcactbPpkqxgsjek9624-75-81 20:30:00 11.6Memorial IesrwgoJfiyfyqasa0635-84-45 20:30:0035.3[facility] HermannHematology 2010-07-21 20:30:28377 K/CMMMemorial UwwxdcnXbfrklxfjz2942-24-29 20:30:0042 Memorial SoardzqXpuxatpucv7725-55-63 19:49:00YellowMemorial HermannUrinalysis 2010-06-21 19:49:00OccasionalMemorial DuzaytqAtkrwmqzf4928-61-65 17:45:60267 Memorial QgqqxtcNlgrvqkys4200-62-47 17:45:004.5[facility]annChemistry 2010-05-24 17:45:000.9Memorial TjldgoeZwxdlonfc1699-85-24 17:45:0013Memorial OnsmgfrHjxozfcxf8387-28-19 17:45:00 Test Item Value Reference Range Interpretation Comments BUN/CREAT (test code = BUN/CREAT) 14 1 625 [facility] TsrxwbaYqdhhilob5675-18-10 17:45:004.2[facility] 2010-05-24 17:45:009.1[facility] LjtpfilKlthljqry3125-37-25 17:45:0015[facility] UfimvelCicrquyeo8167-28-43 17:45:0012[facility] LxhwlidGhosiuiyo2037-66-59 17:45:0067[facility] XwxoxqjVqrumkulu8931-96-49 17:45:000.680[facility] Ltwnoyeyetg1363-47-52 17:45:00 Test Item Value Reference Range Interpretation Comments PT PATIENT (test code = PT PATIENT) 13.6 s 12.0-14.7 [facility] OvovyzpNdmbulhwhlm0129-87-35 17:45:00 Test Item Value Reference Range Interpretation Comments INR (test code = INR) 1.02 1 0.85-1.17 [facility] RutvsaaMfxfsbrvrr2942-25-73 17:45:0012.7[facility] 2010-05-24 17:45:0038.1[facility] GfpoakeOesdczfmap4339-34-55 17:45:94352 K/CMM [facility] SjwtzrsQzmqtjbdou5102-10-45 17:45:00YellowMem[facility] HermannCT LUMBAR WO CLINICAL INDICATION: M51.36 Other intervertebral disc degeneration, lumbar regionMODALITY: Siemens Yuanfen~Flow™ CT (Iterative dose reduction techniques are utilized.)TECHNIQUE: [...]
[2021-09-26] MEDS ORDERED: ONDANSETRON 4 MG/2 ML VIAL ONE ×2 (11:13→12:29)
[2021-09-26] MEDS ORDERED: NA CHLORIDE 0.9% 1,000 ML ONE ×3 (11:13→14:07)
--- NOTE | 2021-09-26 11:31 | RAD REPORT ---
EXAM DESCRIPTION: RAD - Chest Single View - 09/26/2021 11:04 am CLINICAL HISTORY: COUGH, weakness, nausea COMPARISON: Portable 08/16/2021 and 07/05/2021 TECHNIQUE: AP portable chest image was obtained 09/26/2021 11:04 am . FINDINGS: Chronic interstitial lung pattern is present. No clear change to the right lung field. Int erstitial markings are more prominent in the left though this is not clearly different from the rowena rison studies. Heart size is prominent but stable. Upper lobe vasculature within normal limits. No measurable pleural effusion and no pneumothorax. No acute bony abnormality seen. No acute aortic findings suspected. IMPRESSION: Chronic interstitial lung pattern, left greater than right, not clearly different from c omparison.
[2021-09-26 11:35] LABS: Protime INR 1.23
[2021-09-26 11:49] LABS: Absolute Lymphocytes (CBC) 1.9 K/uL (0.7-4.9); Hematocrit 38.5 % (36.0-45.0); Lymphocytes % 22.6 % (15.3-44.8); MPV 7.8 fL (7.6-11.3); RBC Red Blood Cell Count 4.84 M/uL (3.86-4.86)
[2021-09-26 11:59] LABS: Albumin 3.2 g/dL (3.4-5.0); Bilirubin Direct 0.1 mg/dL (0-0.2); Bilirubin Total 0.3 mg/dL (0.2-1.0); Protein, Total 7.2 g/dL (6.4-8.2); Troponin High Sensitivity 13.4 pg/mL (<58.9)
[2021-09-26 12:00] LABS: Magnesium 2.1 mg/dL (1.8-2.4); Potassium 3.2 mmol/L (3.5-5.1)
--- NOTE | 2021-09-26 12:17 | ER ---
Nurse's Notes [facility] Name: Emma Rico Age: 71 yrs Sex: Female : 1950 Arrival Date: 09/26/2021 Time: 10:24 Bed 19 Private MD: Robbin Cabello C Diagnosis: Nausea;Weakness;Hypokalemia Presentation: 09/26 10:31 Chief complaint: Patient states: generalized weakness, itching all over, and nausea. aa5 Denies vomiting. Coronavirus screen: fatigue. Ebola Screen: Patient denies travel to an Ebola-affected area in the 21 days before illness onset. Initial Sepsis Screen: Does the patient meet any 2 criteria? No. Patient's initial sepsis screen is negative. Does the patient have a suspected source of infection? No. Patient's initial sepsis screen is negative. Risk Assessment: Do you want to hurt yourself or someone else? Patient reports no desire to harm self or others. Onset of symptoms was September 2021. 10:31 Acuity: LENNY 3 aa5 10:31 Method Of Arrival: Wheelchair aa5 Triage Assessment: 11:45 General: Appears Behavior is calm, cooperative. Pain: Complains of pain in abdomen. moss Neuro: Reports dizziness, weakness. Cardiovascular: Reports nausea, vomiting. Cardiovascular: Reports. GI: Reports nausea, Pain is 6 out of 10 on a pain scale. vomiting. Historical: - Allergies: 10:30 Codeine; aa5 10:30 Morphine; aa5 10:30 Sulfa (Sulfonamide Antibiotics); aa5 - Home Meds: 11:46 acetazolamide 250 mg Oral tab 1 tab once daily [Active]; Clotrimazole-Betamethasone moss Topical [Active]; Decara 50,000 unit Oral cap [Active]; Decara Oral [Active]; desvenlafaxine succinate 100 mg Oral Tb24 1 tab once daily [Active]; famotidine 20 mg Oral tab 1 tab every 12 hours [Active]; fentanyl in pain pump [Active]; Furosemide Oral [Active]; Lasix 20 mg Oral tab [Active]; levothyroxine 112 mcg tab 1 tab [Active]; levothyroxine oral [Active]; losartan 100 mg Oral tab 1 tab once daily [Active]; losartan Oral [Active]; memantine Oral [Active]; mirtazapine 15 mg Oral TbDi 1 tab once daily [Active]; olmesartan Oral [Active]; pramipexole 0.5 mg Oral tab [Active]; pramipexole Oral [Active]; pregabalin Oral [Active]; quetiapine 150 mg Oral Tb24 1 tab once daily [Active]; rosuvastatin 5 mg Oral cpSP 1 cap [Active]; spironolactone 50 mg Oral tab 1 tab 2 times per day [Active]; - PMHx: 10:30 Chronic pain; Dementia; Depression; Hypertension; Hypothyroidism; aa5 10:32 Fentanyl pain pump; aa5 - PSHx: 10:30 back; hysterectomy; Left hip; pain pump placed; Right hip; aa5 - Immunization history:: Adult Immunizations. - Social history:: Smoking status: Patient denies any tobacco usage or history of. Screenin:44 Abuse screen: Denies threats or abuse. Denies injuries from another. Nutritional moss screening: No deficits noted. Tuberculosis screening: No symptoms or risk factors identified. Fall Risk None identified. Assessment: 11:46 GI: Abdomen is round non-distended. moss 20:30 General: Appears in no apparent distress. comfortable, Behavior is calm, cooperative. lg3 Pain: Complains of pain in abdomen. Neuro: No deficits noted. Pittman Agitation-Sedation Scale (RASS): 0 - Alert and Calm Level of Consciousness is awake, alert, obeys commands, Oriented to person, place, time, situation. Cardiovascular: No deficits noted. Denies chest pain, Capillary refill < 3 seconds Clubbing of nail beds is absent JVD is absent Patient's skin is warm and dry. Respiratory: No deficits noted. Airway is patent Trachea midline Respiratory effort is even, unlabored, Respiratory pattern is regular, symmetrical. GI: Abdomen is round non-distended, Reports lower abdominal pain, upper abdominal pain, nausea, vomiting. : No deficits noted. No signs and/or symptoms were reported regarding the genitourinary system. EENT: No deficits noted. No signs and/or symptoms were reported regarding the EENT system. Derm: No deficits noted. No signs and/or symptoms reported regarding the dermatologic system. Skin is intact, is healthy with good turgor, Skin is dry, Skin temperature is warm. Musculoskeletal: No deficits noted. No signs and/or symptoms reported regarding the musculoskeletal system. Circulation, motion, and sensation intact. Range of motion: intact in all extremities. 20:42 General: attempted to call report. nurse not available. will try again . lg3 Vital Signs: 10:31 BP 116 / 86; Pulse 96; Resp 18 S; Temp 98.6(TE); Pulse Ox 97% on R/A; Weight 96.16 kg aa5 (R); Height 5 ft. 3 in. (160.02 cm) (R); 12:38 BP 138 / 64; Pulse 80; Resp 19; Pulse Ox 96% ; moss 20:35 BP 137 / 80; Pulse 93; Resp 20; Pulse Ox 94% on R/A; oe 10:31 Body Mass Index 37.55 (96.16 kg, 160.02 cm) aa5 ED Course: 10:24 Patient arrived in ED. am2 10:24 Robbin Cabello MD is Private Physician. am2 10:31 Arm band placed on. aa5 10:32 Triage completed. aa5 10:46 Lamonte Geller MD is Attending Physician. martin 11:01 Jo-Ann Radford, DAVID is Primary Nurse. moss 11:06 XRAY Chest (1 view) In Process Unspecified. EDMS 11:41 SARS-COV-2 RT PCR (Document "Date of Onset" if Symptomatic) Sent. moss 11:44 Patient has correct armband on for positive identification. Bed in low position. moss 11:44 No provider procedures requiring assistance completed. Inserted saline lock: 20 gauge moss in left forearm, using aseptic technique. 12:16 Robbin Cabello MD is Hospitalizing Provider. martin 19:13 Primary Nurse role handed off by Jo-Ann Radford, DAVID mw2 20:30 Bree Dolan, DAVID is Primary Nurse. lg3 20:43 Patient admitted, IV remains in place. No redness/swelling at site. lg3 Administered Medications: 15:10 Discontinued: NS 0.9% with KCl 20 mEq/L 1000 ml IV at 125 per protocol continuous moss 11:41 Drug: NS 0.9% 1000 ml Route: IV; Rate: 1 bolus; Site: left forearm; moss 12:29 Follow up: IV Status: Completed infusion moss 11:41 Drug: Zofran (Ondansetron) 4 mg Route: IVP; Site: left forearm; moss 11:42 Follow up: Response: No adverse reaction moss 12:28 Drug: NS 0.9% with KCl 20 mEq/L 1000 ml Route: IV; Rate: 125 per protocol; Site: left moss forearm; 15:11 Drug: Potassium Effervescent Tablet 25 mEq Route: PO; moss 15:13 Follow up: Response: No adverse reaction moss 15:18 Drug: fentaNYL (PF) 25 mcg Route: IVP; Site: left forearm; moss 15:19 Follow up: Response: No adverse reaction moss 18:27 Drug: fentaNYL (PF) 25 mcg Route: IVP; Site: left forearm; moss 18:27 Follow up: Response: No adverse reaction moss Medication: 11:46 VIS not applicable for this client. moss Outcome: 12:16 Decision to Hospitalize by Provider. [facility] 20:43 Admitted to Med/surg accompanied by tech, via wheelchair, room 203, Report called to [address] 20:43 Condition: stable 20:43 Instructed on the need for admit, Demonstrated understanding of instructions. 21:14 Patient left the ED. lg3 Signatures: Dispatcher [employer] EDMS Lamonte Geller MD MD cha Calderon, Audri, RN RN aa5 Sai Rios Amanda am2 Yoanna Solis 2 Bree Dolan RN RN 3 Britt-StageJo-Ann armstrong RN RN Corrections: (The following items were deleted from the chart) 10:34 10:31 Pulse 96bpm; Resp 18bpm; Spontaneous; Pulse Ox 97% RA; Temp 98.6F Temporal; 96.16 aa5 kg Reported; Height 5 ft. 3 in. Reported; BMI: 37.5; aa5
--- NOTE | 2021-09-26 12:17 | EDPHYS ---
Physician Documentation [facility] Name: Emma Rico Age: 71 yrs Sex: Female : 1950 Arrival Date: 09/26/2021 Time: 10:24 Bed 19 Private MD: Robbin Cabello C ED Physician Lamonte Geller HPI: 09/26 12:10 This 71 yrs old Female presents to ER via Wheelchair with complaints of martin Nausea, Dizziness, General Weakness. 12:10 The patient presents to the emergency department with nausea, vomiting. Onset: The martin symptoms/episode began/occurred 5 day(s) ago. Possible causes: unknown, pain pump. The symptoms are aggravated by nothing. The symptoms are alleviated by nothing. Associated signs and symptoms: Pertinent positives: nausea, itching. Severity of symptoms: At their worst the symptoms were mild in the emergency department the symptoms are unchanged. The patient has not experienced similar symptoms in the past. Historical: - Allergies: 10:30 Codeine; aa5 10:30 Morphine; aa5 10:30 Sulfa (Sulfonamide Antibiotics); aa5 - Home Meds: 11:46 acetazolamide 250 mg Oral tab 1 tab once daily [Active]; Clotrimazole-Betamethasone moss Topical [Active]; Decara 50,000 unit Oral cap [Active]; Decara Oral [Active]; desvenlafaxine succinate 100 mg Oral Tb24 1 tab once daily [Active]; famotidine 20 mg Oral tab 1 tab every 12 hours [Active]; fentanyl in pain pump [Active]; Furosemide Oral [Active]; Lasix 20 mg Oral tab [Active]; levothyroxine 112 mcg tab 1 tab [Active]; levothyroxine oral [Active]; losartan 100 mg Oral tab 1 tab once daily [Active]; losartan Oral [Active]; memantine Oral [Active]; mirtazapine 15 mg Oral TbDi 1 tab once daily [Active]; olmesartan Oral [Active]; pramipexole 0.5 mg Oral tab [Active]; pramipexole Oral [Active]; pregabalin Oral [Active]; quetiapine 150 mg Oral Tb24 1 tab once daily [Active]; rosuvastatin 5 mg Oral cpSP 1 cap [Active]; spironolactone 50 mg Oral tab 1 tab 2 times per day [Active]; - PMHx: 10:30 Chronic pain; Dementia; Depression; Hypertension; Hypothyroidism; aa5 10:32 Fentanyl pain pump; aa5 - PSHx: 10:30 back; hysterectomy; Left hip; pain pump placed; Right hip; aa5 - Immunization history:: Adult Immunizations. - Social history:: Smoking status: Patient denies any tobacco usage or history of. ROS: 12:12 Constitutional: Negative for fever, chills, and weight loss, Eyes: Negative for injury, martin pain, redness, and discharge, ENT: Negative for injury, pain, and discharge, Neck: Negative for injury, pain, and swelling, Cardiovascular: Negative for chest pain, palpitations, and edema, Respiratory: Negative for shortness of breath, cough, wheezing, and pleuritic chest pain, Back: Negative for injury and pain, : Negative for injury, bleeding, discharge, and swelling, MS/Extremity: Negative for injury and deformity, Skin: Negative for injury, rash, and discoloration, Neuro: Negative for headache, weakness, numbness, tingling, and seizure. 12:12 Abdomen/GI: Positive for nausea. 12:12 Skin: Positive for itching. Exam: 12:12 Constitutional: This is a well developed, well nourished patient who is awake, alert, martin and in no acute distress. Head/Face: Normocephalic, atraumatic. Eyes: Pupils equal round and reactive to light, extra-ocular motions intact. Lids and lashes normal. Conjunctiva and sclera are non-icteric and not injected. Cornea within normal limits. Periorbital areas with no swelling, redness, or edema. ENT: Nares patent. No nasal discharge, no septal abnormalities noted. Tympanic membranes are normal and external auditory canals are clear. Oropharynx with no redness, swelling, or masses, exudates, or evidence of obstruction, uvula midline. Mucous membranes moist. Neck: Trachea midline, no thyromegaly or masses palpated, and no cervical lymphadenopathy. Supple, full range of motion without nuchal rigidity, or vertebral point tenderness. No Meningismus. Chest/axilla: Normal chest wall appearance and motion. Nontender with no deformity. No lesions are appreciated. Cardiovascular: Regular rate and rhythm with a normal S1 and S2. No gallops, murmurs, or rubs. Normal PMI, no JVD. No pulse deficits. Respiratory: Lungs have equal breath sounds bilaterally, clear to auscultation and percussion. No rales, rhonchi or wheezes noted. No increased work of breathing, no retractions or nasal flaring. Back: No spinal tenderness. No costovertebral tenderness. Full range of motion. Female : Normal external genitalia. Skin: Warm, dry with normal turgor. Normal color with no rashes, no lesions, and no evidence of cellulitis. MS/ Extremity: Pulses equal, no cyanosis. Neurovascular intact. Full, normal range of motion. Neuro: Awake and alert, GCS 15, oriented to person, place, time, and situation. Cranial nerves II-XII grossly intact. Motor strength 5/5 in all extremities. Sensory grossly intact. Cerebellar exam normal. Normal gait. Psych: Awake, alert, with orientation to person, place and time. Behavior, mood, and affect are within normal limits. 12:12 Abdomen/GI: Inspection: abdomen appears normal, Bowel sounds: normal, Palpation: abdomen is soft and non-tender, Liver: no appreciated palpable abnormalities, Hernia: not appreciated. 12:15 ECG was reviewed by the Attending Physician. [facility] Vital Signs: 10:31 BP 116 / 86; Pulse 96; Resp 18 S; Temp 98.6(TE); Pulse Ox 97% on R/A; Weight 96.16 kg aa5 (R); Height 5 ft. 3 in. (160.02 cm) (R); 12:38 BP 138 / 64; Pulse 80; Resp 19; Pulse Ox 96% ; moss 20:35 BP 137 / 80; Pulse 93; Resp 20; Pulse Ox 94% on R/A; oe 10:31 Body Mass Index 37.55 (96.16 kg, 160.02 cm) aa5 MDM: 10:46 Patient medically screened. [facility] 12:14 Data reviewed: vital signs, nurses notes, lab test result(s), EKG, radiologic studies, [facility] plain films. 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 Test interpretation: by ED physician or midlevel provider: ECG, plain radiologic studies. Counseling: I had a detailed discussion with the patient and/or guardian regarding: the historical points, exam findings, and any diagnostic results supporting the discharge/admit diagnosis, lab results, radiology results, the need for further work-up and treatment in the hospital. 09/26 10:50 Order name: Basic Metabolic Panel; Complete Time: 12:09 [facility] 09/26 10:50 Order name: CBC with Diff; Complete Time: 12: [facility] 09/26 10:50 Order name: LFT's; Complete Time: 12: [facility] 09/26 10:50 Order name: Magnesium; Complete Time: 12: [facility] 09/26 10:50 Order name: NT PRO-BNP; Complete Time: 12: martin 09/26 10:50 Order name: PT-INR; Complete Time: 12: [facility] 09/26 10:50 Order name: Troponin HS; Complete Time: 12: [facility] 09/26 10:50 Order name: XRAY Chest (1 view); Complete Time: 12: [facility] 09/26 10:50 Order name: Lipase; Complete Time: 12: [facility] 09/26 10:50 Order name: SARS-COV-2 RT PCR (Document "Date of Onset" if Symptomatic); Complete Time: [facility] 13:26 09/26 20:39 Order name: Potassium EDMS 09/26 10:50 Order name: EKG; Complete Time: 10:51 [facility] 09/26 10:50 Order name: Cardiac monitoring; Complete Time: 11:42 [facility] 09/26 10:50 Order name: EKG - Nurse/Tech; Complete Time: 12:04 [facility] 09/26 10:50 Order name: IV Saline Lock; Complete Time: 11:42 [facility] 09/26 10:50 Order name: Labs collected and sent; Complete Time: 11:42 [facility] 09/26 10:50 Order name: O2 Per Protocol; Complete Time: 11:42 [facility] 09/26 10:50 Order name: O2 Sat Monitoring; Complete Time: 11:42 [facility] EC:15 Rate is 65 beats/min. Rhythm is regular. QRS [place] is Normal. [place] interval is normal. QRS martin interval is normal. QT interval is normal. No Q waves. T waves are Normal. No ST changes noted. Clinical impression: NSR w/ Non-specific ST/T Changes and No evidence of ischemia. Interpreted by me. Reviewed by me. Administered Medications: 15:10 Discontinued: NS 0.9% with KCl 20 mEq/L 1000 ml IV at 125 per protocol continuous moss 11:41 Drug: NS 0.9% 1000 ml Route: IV; Rate: 1 bolus; Site: left forearm; moss 12:29 Follow up: IV Status: Completed infusion moss 11:41 Drug: Zofran (Ondansetron) 4 mg Route: IVP; Site: left forearm; moss 11:42 Follow up: Response: No adverse reaction moss 12:28 Drug: NS 0.9% with KCl 20 mEq/L 1000 ml Route: IV; Rate: 125 per protocol; Site: left moss forearm; 15:11 Drug: Potassium Effervescent Tablet 25 mEq Route: PO; moss 15:13 Follow up: Response: No adverse reaction moss 15:18 Drug: fentaNYL (PF) 25 mcg Route: IVP; Site: left forearm; moss 15:19 Follow up: Response: No adverse reaction moss 18:27 Drug: fentaNYL (PF) 25 mcg Route: IVP; Site: left forearm; moss 18:27 Follow up: Response: No adverse reaction moss Disposition Summary: 09/26/21 12:16 Hospitalization Ordered Hospitalization Status: Inpatient Admission martin Provider: Robbin Cabello cha Location: Telemetry/MedSurg (Inpatient) martin Condition: Fair martin Problem: new martin Symptoms: have improved martin Bed/Room Type: Standard martin Room Assignment: 203(09/26/21 20:09) Diagnosis - Nausea martin - Weakness martin - Hypokalemia martin Forms: - Medication Reconciliation Form martin - SBAR form martin Signatures: Dispatcher [employer] EDTammy Hernandez Martha, RN RN mw Anderson, Corey, MD MD cha Calderon, Audri, RN RN aa5 Jo-Ann Radford RN RN moss Corrections: (The following items were deleted from the chart) 18:33 12:16 martin bd 19:04 18:33 402 bd bd 20:07 19:04 bd mw 20:09 20:07 205 mw mw
[2021-09-26] MEDS ORDERED: KCL 20 MEQ/100 mL IVPB 100 ML IV ONE (12:29)
[2021-09-26] MEDS ORDERED: POTASSIUM 25 MEQ EFFERV TAB ONE (14:07)
[2021-09-26] MEDS ORDERED: FENTANYL CITR 100 MCG/2 ML ONE (15:18)
[2021-09-26] MEDS ORDERED: NS KCL 20MEQ 20 MEQ/1,000 ML BAG IV SCH (19:50)
[2021-09-26] MEDS ORDERED: ACETAMINOPHEN 325 MG TABLET PO PRN (19:50)
[2021-09-26] MEDS ORDERED: PROMETHAZINE INJ 25 MG/ML AMP IV PRN (19:50)
[2021-09-26] MEDS ORDERED: ONDANSETRON 4 MG/2 ML VIAL IV PRN (19:50)
[2021-09-26] MEDS ORDERED: METHYLPRED NA SUC 40 MG in NA CHLORIDE 0.9% 100 ML IV ONE (20:14)
[2021-09-26] MEDS ORDERED: DIPHENHYDRAMINE 50 MG/ML VIAL ONE (20:19)
[2021-09-26] MEDS ORDERED: METHYLPREDNISOLONE 40 MG INJ ONE (20:19)
[2021-09-26] MEDS: DIPHENHYDRAMINE 50 MG/ML VIAL IV PRN (20:27)
[2021-09-26] MEDS ORDERED: METHYLPREDNISOLONE 40 MG INJ IV ONE (20:45)
[2021-09-26 21:35] VITALS: O2SAT 94
[2021-09-26] MEDS: HYDROMORPHONE HCL 1 MG/ML INJ IV PRN (21:52)
[2021-09-26] MEDS: FAMOTIDINE 20 MG/2 ML VIAL IV SCH (21:54)
[2021-09-26 22:59] VITALS: BMI 38.3
[2021-09-27] MEDS: HYDROMORPHONE HCL 1 MG/ML INJ IV PRN (04:06)
[2021-09-27] MEDS: DIPHENHYDRAMINE 50 MG/ML VIAL IV PRN (04:07)
[2021-09-27 05:11] VITALS: BP 144/73; TEMP 97.9
[2021-09-27 06:11] LABS: Absolute Lymphocytes (CBC) 0.8 K/uL (0.7-4.9); Hematocrit 35.4 % (36.0-45.0); Lymphocytes % 17.3 % (15.3-44.8); MPV 7.7 fL (7.6-11.3); RBC Red Blood Cell Count 4.47 M/uL (3.86-4.86)
[2021-09-27 06:34] LABS: Albumin 2.7 g/dL (3.4-5.0); Bilirubin Direct 0.1 mg/dL (0-0.2); Bilirubin Total 0.3 mg/dL (0.2-1.0); Potassium 3.8 mmol/L (3.5-5.1); Protein, Total 6.3 g/dL (6.4-8.2)
[2021-09-27] MEDS: FAMOTIDINE 20 MG/2 ML VIAL IV SCH (08:03)
--- NOTE | 2021-09-27 20:33 | DS ---
Date of Discharge: 09/27/2021 History: The patient was seen this morning for followup. She denied any new complaints. Nausea is better. The rash and itching did get better after 1 dose of Solu-Medrol, but it is back to her basel ine again. Physical Examination: Vital Signs: Reviewed. HEENT: Unremarkable. Lungs: Clear to auscultation. Heart: Heart sounds normal. Abdomen: Soft, bowel sounds normal. No guarding, rigidity, tenderness, or distention. Extremities: No leg edema. Laboratory Data: This morning, white count 4.8, hemoglobin 11.4, platelets 257. Sodium 144, potassi um 3.8, chloride 114, bicarb 25, BUN 6, creatinine 0.81, glucose 144. Final Diagnoses: 1.Nausea, itching, and rash. 2.Osteoarthritis, multiple sites. 3.Hypothyroidism. 4.Hypertension. 5.Fibromyalgia. 6.Vitamin D deficiency. Hospital Course: This is a 71-year-old pleasant female patient admitted to the hospital with rash, i tching, and nausea problem. Please see dictated H and P for more information. After patient was fabián luated in the ER, she was admitted to the hospital. Her condition overnight remained stable. She wa s given IV Benadryl and IV steroid and this morning, she was discharged to go home in stable conditio n with following discharge medications and instructions. The patient has appointment to see her pain management physician today and she will communicate with him regarding her concern about fentanyl th at she is getting through the pain pump might be causing this rash and itching. Discharge Medications And Instructions: 1.Continue all prior home medications. 2.Take Claritin 10 mg daily in morning. 3.Take Zyrtec 10 mg daily at bedtime. 4.Follow up at my office next week on Sunday or Sunday and call office for appointment. BO/MODL Voice ID: [id number] Report ID: [id number]
--- NOTE | 2021-09-27 21:03 | HP ---
Date of Admission: 09/26/2021 Chief Complaint: Nausea, rash and itching. History Of Present Illness: This is a 71-year-old female patient who came into the emergency room wi th intractable nausea and rash and itching. She has a pain pump and recently started using fentanyl through the pain pump and she thinks that this is what is causing her rash and itching and she has be en working with her pain management physician regarding this and has appointment to see Pain Manageme nt physician tomorrow to talk about this problem as the patient says that, what she really wants is h er pain management doctor to discontinue fentanyl completely and give something else as she really be lieves with worsening problem of rash, itching, and now associated nausea. She came into the emergency room after she was evaluated in the ER. I was contacted requesting admission to [facility]. She denies any abdominal pain. No vomiting. No diarrhea. No fever. No chills. I saw her in the emergency room for this admission. Medications: List reviewed. Review of Systems: Dermatology: As mentioned above. GI: As mentioned above. Musculoskeletal: Chronic back All other systems reviewed and negative. Allergies: TO MORPHINE, CODEINE, AND SULFA. Past Surgical History: Reviewed. Social History: Negative for smoking and alcohol use. Family History: Father and had swine flu. Mother and she had anxiety, depression, and tony cardial infarction. Sister dealing with myocardial infarction. Past Medical History: Significant for restless legs syndrome, dementia, hypothyroidism, hypertension , paroxysmal atrial fibrillation, compression fracture of lumbar spine, osteoarthritis at multiple si gely, fibromyalgia, osteoporosis, vitamin D deficiency, COVID-19 infection in December 2020. Physical Examination: Vital Signs: , respiratory rate 17, blood pressure 156/67, oxygen saturation 92%, height 5 feet 3 inches, weight pounds. General: Awake, alert, oriented, not in distress. HEENT: Head atraumatic, normocephalic. Conjunctivae nonerythematous. Sclerae white. Mouth, no thr ush or edema noted. Ears/Nose, no mass, lesion, discharge noted. Neck: Supple. No JVD, lymph nodes, bruit, thyromegaly noted. Lungs: Bilateral good equal air entry. Clear to auscultation. No rhonchi. No rales. Heart: Normal heart sounds, no murmur or gallop. Abdomen: Soft, bowel sounds normal. No guarding, rigidity, tenderness, mass, hepatosplenomegaly, dis tention, or bruit noted. Extremities: No leg edema. No calf tenderness. Skin: The patient has multiple superficial scratch jessica and/or abrasion over her forearms on both si anupama. Lymphatics: No lymph node enlargement in neck, supraclavicular, infraclavicular region. Neuro: No focal neurological deficit. Chest: Unremarkable. External Genitalia: Deferred. Rectal: Deferred. Laboratory Data: White count 8.2, hemoglobin 12.5, platelets 291. Sodium 143, potassium 3.2, chlori de 110, bicarb 25, BUN 7, creatinine 1.04, glucose 113. Liver function tests unremarkable. Lipase 2 8. Chest x-ray, chronic interstitial lung pattern unchanged from . Impression: 1.Nausea. 2.Rash. 3.Osteoarthritis, multiple sites. 4.Hypertension. 5.Hypothyroidism. 6.Fibromyalgia. 7.Vitamin D deficiency. 8.Hypokalemia. Plan: Admit patient to hospital for further evaluation and management of this problem. The patient is appropriate for observation. IV Benadryl was ordered. I will give Solu-Medrol 1 mg IV x1 dose. I will see her tomorrow morning for followup, replace potassium per order and will repeat blood work tomorrow morning. The patient was encouraged to keep her appointment to see her pain management phys ician tomorrow. BO/MODL Voice ID: [id number]
--- NOTE | 2021-09-28 07:27 | EKG ---
Test Date: 2021-09-26 Test Time: 11:55:21 Lathe Sander: FARHEEN MEASUREMENT RESULTS: Intervals: Rate: 65 SC: 152 QRSD: 88 QT: 426 QTc: 443 [place]: P: 50 SC: 152 QRS: -79 T: 27 INTERPRETIVE STATEMENTS: Normal sinus rhythm Low voltage QRS Left anterior fascicular block Possible Anterolateral infarct, age undetermined Abnormal ECG Compared to ECG 08/17/2021 08:32:47 Low QRS voltage now present Sinus bradycardia no longer present Myocardial infarct finding still present Electronically Signed On 09-28-21 07:19:52 CDT by Mihir Ortiz
== END 2021-09-27 09:09 | disposition home or self-care (01) ==
LOC: ER 10:23 → ERHOLD 12:19 → INTOOBSV 12:19 → 2ND 20:39
PROVIDERS: ADMIT Internal Medicine; ATTEND Internal Medicine
DX: R21 Rash and other nonspecific skin eruption (principal); R11.0 Nausea; L29.9 Pruritus, unspecified; I10 Essential (primary) hypertension; E03.9 Hypothyroidism, unspecified; M79.7 Fibromyalgia; E87.6 Hypokalemia; G89.29 Other chronic pain; M54.9 Dorsalgia, unspecified; R53.1 Weakness; I48.0 Paroxysmal atrial fibrillation; G25.81 Restless legs syndrome; M15.9 Polyosteoarthritis, unspecified; E55.9 Vitamin D deficiency, unspecified; M81.0 Age-related osteoporosis without current pathological fracture; Z79.891 Long term (current) use of opiate analgesic; Z79.899 Other long term (current) drug therapy; Z88.5 Allergy status to narcotic agent; Z88.2 Allergy status to sulfonamides; Z86.16 Personal history of COVID-19; Z20.822 Contact with and (suspected) exposure to COVID-19; Z82.49 Family history of ischemic heart disease and other diseases of the circulatory system
CPT/HCPCS: 96361; 93005; 85025 ×2; 80048 ×2; 36415; 83735; 84132; 85610; 80076 ×2; 84484; 83690 ×2; 83880; 71045; 96375; 96374; 99285; U0003; J1200 ×2; J3480 ×3; J3010; J1170 ×2; J7030 ×3; J2405 ×3; J2920 ×2; J3490 ×2; G0378 ×3

== ENCOUNTER 2021-10-13 06:30 | Day surgery (SDC) | payer OTHER ==
[2021-10-12 14:03] LABS: SARS-CoV-2 Antigen Rapid Res Negative (Negative)
[2021-10-13] MEDS ORDERED: PHENYLEPHRINE 2.5% OPTH 2 ML ONE (07:09)
[2021-10-13] MEDS ORDERED: TROPICAMIDE 1% OPTH 3 ML BOT ONE (07:09)
[2021-10-13] MEDS ORDERED: Ringers Lactate 1,000 ML IV ONE (07:10)
[2021-10-13] MEDS ORDERED: MOXIFLOXACIN HCL 0.5% 3ML OPTH OPTH ONE (07:10)
[2021-10-13] MEDS ORDERED: CYCLOPENTOLATE 2% OPTH 2 ML ONE (07:10)
[2021-10-13] MEDS ORDERED: EPINEPHRINE/PF 1 MG/ML AMP ONE (07:14)
[2021-10-13] MEDS ORDERED: BALANCED SALT IRRIG PLAIN 500 ML IRR ONE (07:15)
[2021-10-13] MEDS ORDERED: TRYPAN BLUE 0.5 ML SYR OPTH ONE (07:15)
[2021-10-13] MEDS ORDERED: TOBRADEX 0.3-0.1% OPTH OINTMENT ONE (07:16)
[2021-10-13] MEDS ORDERED: POVIDONE-IODINE 5% EYE DROPS ONE (07:17)
[2021-10-13] MEDS ORDERED: LIDOCAINE 1% MPF 5 ML VIAL ONE (07:21)
[2021-10-13] MEDS ORDERED: FENTANYL CITR 100 MCG/2 ML ONE (07:21)
[2021-10-13] MEDS ORDERED: propofoL 200 MG/20 ML VIAL IV ONE ×3 (07:21→08:21)
[2021-10-13] MEDS ORDERED: DUOVISC 1 KIT OPTH ONE ×2 (07:50→08:27)
[2021-10-13] MEDS ORDERED: HYALURONATE SODIUM 10 MG/ML SYR OPTH ONE (07:50)
[2021-10-13] MEDS ORDERED: ONDANSETRON 4 MG/2 ML VIAL ONE (08:05)
[2021-10-13] MEDS ORDERED: Phenylephrine HCl 10 MG/ML 1 ML VIAL ONE (08:12)
[2021-10-13] MEDS ORDERED: NS 0.9% VIAL 10 ML ONE (08:13)
[2021-10-13 09:34] VITALS: BP 147/77; TEMP 96.6; O2SAT 97
--- NOTE | 2021-10-13 11:06 | OP ---
Date of Procedure: 10/13/2021 Surgeon: Fawad Rodriguez MD Care Transition Coordinator: None. Preoperative Diagnosis: Visually significant cataract, left eye. 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 Procedures Performed: Posterior synechiolysis and complex cataract extraction using iris hooks with placement of intraocular lens, left eye. Description Of Procedure: After being properly identified in the preoperative holding area, the benita ent was taken back to the operating room where a time-out was performed. The patient was then preppe d and draped in the normal sterile fashion. Examination of the eye underneath the operating microsco pe revealed a poorly dilated pupil with posterior synechiae visualized superiorly with a good red ref nia present. Therefore, the preoperative plan of using trypan blue was abandoned, but iris hooks as anticipated were used grasping the globe with a pair of 0.12 forceps. Paracentesis wounds were made at the 3 o'clock and 9 o'clock position and the anterior chamber filled with viscoelastic. Using a c annula on the viscoelastic, the posterior synechiae were broken up superiorly resulting in freedom of the pupil; however, again because of restriction of dilation, additional paracentesis wounds were ma de superiorly and iris hooks were placed in order to draw the pupil enlarged. Once this had been com pleted, the cataract portion was carried out as regular. A continuous curvilinear capsulorrhexis was created using a cystotome and completed with Utrata forceps. Hydrodissection and hydrodelineation w ere carried out resulting in free rotation of the lens nucleus and the lens was removed in a standard divide and conquer technique. Continuous dispersed energy was approximately 17 seconds. Once all 4 quadrants had been removed, the phaco handpiece was exchanged for bimanual irrigation and aspiration hand pieces and all cortex remnants were removed as well as polishing of the posterior and anterior capsule. The capsular bag was then refilled with viscoelastic and an Dionte model SN60WF IOL, power 2 5.5 diopters, serial #[id number] was implanted into the capsular bag. The iris hooks were then remov ed and the viscoelastic removed using the bimanual irrigation and aspiration hand piece. Of note, wh en I was behind the lens which was my standard technique to remove any viscoelastic trapped behind th e lens, the lens capsule did experience a small rent in the opening, but no vitreous was present in t he lens. Maintained good stability and centration with the remainder of the capsular bag completely intact. The wounds were hydrated in order to ensure water tightness and thereafter the procedure con cluded and the patient with the drapes removed, had the eye patched over TobraDex ointment. She was taken to the postoperative holding area in stable condition having tolerated procedure well. She is to follow up with myself, Dr. Fawad Rodriguez at the [facility] tomorrow morning. RAMAN/J LUIS Voice ID: [id number] Report ID: [id number]
== END 2021-10-13 09:52 | disposition home or self-care (01) ==
LOC: OR 06:30
PROVIDERS: ATTEND Ophthalmology
PROC: 08RK3JZ Replacement of Left Lens with Synthetic Substitute, Percutaneous Approach (ICD-10-PCS; principal; 2021-10-13 07:30)
DX: H25.812 Combined forms of age-related cataract, left eye (principal); H53.9 Unspecified visual disturbance; H21.542 Posterior synechiae (iris), left eye; Z20.822 Contact with and (suspected) exposure to COVID-19
CPT/HCPCS: 36415; 87811; J0171; J2370; J2405; J2704; J3010; J3490; J7120

== ENCOUNTER 2021-12-01 06:26 | Day surgery (SDC) | payer OTHER ==
[2021-11-28 13:03] LABS: SARS-CoV-2 Antigen Rapid Res Negative (Negative)
[2021-12-01] MEDS ORDERED: Ringers Lactate 1,000 ML IV ONE (06:43)
[2021-12-01] MEDS ORDERED: CYCLOPENTOLATE 2% OPTH 2 ML ONE (06:48)
[2021-12-01] MEDS ORDERED: TROPICAMIDE 1% OPTH 3 ML BOT ONE (06:48)
[2021-12-01] MEDS ORDERED: PHENYLEPHRINE 10% OPTH 5ML ONE (06:48)
[2021-12-01] MEDS ORDERED: MOXIFLOXACIN HCL 0.5% 3ML OPTH OPTH ONE (06:49)
[2021-12-01] MEDS ORDERED: KETOROLAC OPTHALMIC 5 ML BOT ONE (06:49)
[2021-12-01] MEDS ORDERED: BSS OPTHALMIC SOL 15 ML OPTH ONE (07:04)
[2021-12-01] MEDS ORDERED: EPINEPHRINE/PF 1 MG/ML AMP ONE (07:04)
[2021-12-01] MEDS ORDERED: BALANCED SALT IRRIG PLAIN 500 ML IRR ONE (07:04)
[2021-12-01] MEDS ORDERED: TOBRADEX 0.3-0.1% OPTH OINTMENT ONE (07:04)
[2021-12-01] MEDS ORDERED: POVIDONE-IODINE 5% EYE DROPS ONE (07:05)
[2021-12-01] MEDS ORDERED: DUOVISC 1 KIT OPTH ONE (07:06)
[2021-12-01 07:09] LABS: MPV 8.2 fL (7.6-11.3)
[2021-12-01 07:17] LABS: Protime INR 1.12
[2021-12-01] MEDS ORDERED: TRYPAN BLUE 0.5 ML SYR OPTH ONE (07:37)
[2021-12-01] MEDS ORDERED: FENTANYL CITR 100 MCG/2 ML ONE (07:45)
[2021-12-01] MEDS ORDERED: propofoL 200 MG/20 ML VIAL IV ONE (08:00)
[2021-12-01] MEDS ORDERED: LIDOCAINE 1% MPF 5 ML VIAL ONE (08:00)
[2021-12-01] MEDS ORDERED: ONDANSETRON 4 MG/2 ML VIAL ONE (08:12)
[2021-12-01 10:22] VITALS: BP 113/68; TEMP 96.8; O2SAT 98
--- NOTE | 2021-12-01 21:01 | OP ---
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 Preoperative Diagnosis: Visually significant cataract, right eye. Postoperative Diagnosis: Visually significant cataract, right eye with presence of zonular laxity, r ight eye. Procedure Performed: Complex cataract extraction of right eye with placement of capsular tension rin g secondary to zonular laxity. Description Of Procedure: After being properly identified in the preoperative holding area, the benita ent was taken back to the operating room where a time-out was performed. The patient was then preppe d and draped in the normal sterile fashion. Examination of the eye underneath the operating microsco pe revealed a well dilated pupil and despite poor visualization in my office, we tried anticipated th e trypan blue to aid in visualization. The reflex was good enough that this was not necessary. The globe was grasped with a pair of 0.12 forceps and a paracentesis wound was made in the 12 o'clock and 6 o'clock position with a 1 mm MVR. The anterior chamber was filled with Viscoat and then the globe grasped again and the main phaco incision wound made using a 2.75 mm keratome in a triplanar fashion . A complete capsulotomy carried out using a cystotome and completed using Utrata forceps. Hydrodis section and hydrodelineation were carried out using a Blake cannula resulting in the lens having free rotation. The lens was thereafter removed in a standard divide and conquer technique. Once all 4 q uadrants had been removed, the phaco handpiece was exchanged for bimanual irrigation and aspiration h andpieces and cortical material was removed. During the removal of the cortical material, the capsul ar bag was noted to have some zonular instability nasally and a capsular tension rim was placed in th e capsular bag as a consequence. This was a model [id number], serial #[id number]. After the capsule w as expanded with viscoelastic, the Dionte model 25.5 SN60WF, serial #[id number] was then implanted in to the capsular bag and the remainder viscoelastic removed using a coaxial I and A handpiece. The wo unds were hydrated using a 30-gauge cannula and when found to be watertight, the procedure concluded with the lid speculum and drapes were removed. The patient was patched over TobraDex ointment and ta yordan to the postoperative holding area in stable condition having tolerated the procedure well as she was under general anesthesia. There were no complications. Estimated Blood Loss: None. She is to follow up with myself, Dr. Fawad Rodriguez at the [facility] [place] tomorrow morning. RAMAN/J LUIS Voice ID: [id number] Report ID: [id number]
== END 2021-12-01 09:45 | disposition home or self-care (01) ==
LOC: OR 06:26
PROVIDERS: ATTEND Ophthalmology
PROC: 08RJ3JZ Replacement of Right Lens with Synthetic Substitute, Percutaneous Approach (ICD-10-PCS; principal; 2021-12-01 07:30)
DX: H26.8 Other specified cataract (principal); H27.8 Other specified disorders of lens; H54.7 Unspecified visual loss; E07.9 Disorder of thyroid, unspecified; K21.9 Gastro-esophageal reflux disease without esophagitis; I69.931 Monoplegia of upper limb following unspecified cerebrovascular disease affecting right dominant side; M19.90 Unspecified osteoarthritis, unspecified site; G25.81 Restless legs syndrome; Z88.2 Allergy status to sulfonamides; Z88.5 Allergy status to narcotic agent; Z91.014 Allergy to mammalian meats; Z86.16 Personal history of COVID-19; Z20.822 Contact with and (suspected) exposure to COVID-19
CPT/HCPCS: 36415 ×2; 85049; 85610; 85730; 87811; 66982; J2704; J0171; J3010; J7120; J2405

== ENCOUNTER 2022-01-02 06:59 | Day surgery (SDC) | payer OTHER ==
[2021-12-29 14:23] LABS: Absolute Lymphocytes (CBC) 2.1 K/uL (0.7-4.9); Hematocrit 38.9 % (36.0-45.0); Lymphocytes % 18.6 % (15.3-44.8); MCV 82.4 fL (80-100); MPV 8.5 fL (7.6-11.3); RBC Red Blood Cell Count 4.72 M/uL (3.86-4.86)
[2021-12-29 14:34] LABS: SARS-CoV-2 Antigen Rapid Res Negative (Negative)
[2021-12-29 14:41] LABS: Potassium 4.5 mmol/L (3.5-5.1)
[2022-01-02] MEDS ORDERED: CEFAZOLIN 2 GM IN 0.9% NACL 2 GM/100 ML BAG ONE (07:42)
[2022-01-02] MEDS ORDERED: Ringers Lactate 1,000 ML IV ONE (07:42)
[2022-01-02] MEDS ORDERED: ONDANSETRON 4 MG/2 ML VIAL ONE (09:46)
[2022-01-02] MEDS ORDERED: propofoL 200 MG/20 ML VIAL IV ONE (09:46)
[2022-01-02] MEDS ORDERED: LIDOCAINE 2% MPF 5 ML VIAL ONE (09:46)
[2022-01-02] MEDS ORDERED: FENTANYL CITR 100 MCG/2 ML ONE (09:47)
[2022-01-02 11:22] VITALS: BP 137/68; TEMP 96.7; O2SAT 98
== END 2022-01-02 11:33 | disposition home or self-care (01) ==
LOC: OR 06:59
PROVIDERS: ATTEND Orthopaedic Surgery
PROC: 0JPT0VZ Removal of Infusion Pump from Trunk Subcutaneous Tissue and Fascia, Open Approach (ICD-10-PCS; principal; 2022-01-02 08:30)
DX: G89.4 Chronic pain syndrome (principal); I10 Essential (primary) hypertension; Z45.1 Encounter for adjustment and management of infusion pump; Z20.822 Contact with and (suspected) exposure to COVID-19
CPT/HCPCS: 85025; 80048; 36415; 87811; 62365; J2704; J2001; J3010; J0690; J7120; J2405

== ENCOUNTER 2022-11-01 21:39 | Inpatient (IN) | payer OTHER ==
--- OUTSIDE RECORDS SUMMARY | 2022-11-01 21:51 | XMS REPORT | Continuity of Care Document ---
:1950 Author Organization [facility] t Address [address] [place] [address] Care Team Providers Name Role Phone Judy GRANT, Sarah Rutledge Primary Care Physician KATE BERMAN Attending Clinician Unavailable RENETTA AVERY Attending Clinician Unavailable OTIS SULLIVAN Attending Clinician Unavailable RENETTA AVERY Admitting Clinician Unavailable OTIS SULLIVAN Admitting Clinician Unavailable Payers Payer Name Policy Type Policy Number Effective Date Expiration Date Liliana thurston MEDICARE PART A [id number] 2015 AND B 00:00:00 Problems Condition Condition Condition Status Onset Resolution Last Treating Co mments Source Name Details Category Date Date Treatment Clinician Date Chronic Chronic Disease Active [facility] 00 [place] Wound, Wound, Disease Active [facility] surgical, surgical, 5-15 [facility] infected infected 00:00: Medica l 00 Center Pre-op Pre-op Disease Active [facility] testing testing 5[facility]15 [facility] 00 [place] Hypothyroi Hypothyroi Disease Active [facility] dism dism 3-12 [facility] 00 [place] Depression Depression Disease Active [facility] with with 3-12 [facility] anxiety anxiety 00:00: Medical 00 [place] Obesity Obesity Disease Active [facility] 3[facility]12 [facility] 00 [place] Pain Pain Disease Active 2018-[address] [facility] 3[facility]12 [facility] Essential Essential Disease Active 2017- [facility] hypertensi hypertensi 3-12 Ileana kes on on 00:00: Medical 00 Center Chronic Chronic Disease Active 2017- [facility] pain [facility] disorder disorder 00[facility] Medica l 00 Center Depression Depressio Problem Active 2015-11-02 [facility] with n with 03:35:47 l anxiety anxiety [place] Active Problem 11/02/2015 eCW: Gaurav LebronBria Morbid Morbid Problem Active 2015-11-02 Mem oria Obesity Obesity 03:35:47 l Active [place] Problem 11/02/2015 eCW: Gaurav LebronBria Hyperlipid Hyperlipi Problem Active 2015-11-02 Memoria emia demia 03:35:47 l Active [place] Problem 11/02/2015 eCW: Gaurav LebronBria Osteoarthr Osteoarth Problem Active 2015-11-02 [facility] itis ritis 03:35:47 l generalize generalize He rmann d d Active Problem 11/02/2015 eCW: Gaurav LebronBria Hypothyroi Problem Active 2015-11-02 M emoria dism Hypothyroi 03:35:47 l (acquired) dism [place] (acquired) Active Problem 11/02/2015 eCW: Gaurav LebronBria Osteoporos Osteoporo Problem Active 2015-11-02 Memoria is sis Active 03:35:47 l Problem [place] 11/02/2015 eCW: Gaurav LebronBria Bipolar Bipolar Problem Active 2015-11-02 Ia moria affective affective 03:35:47 l disorder, disorder, Herm ila depressed depressed Active Problem 11/02/2015 eCW: Gaurav Bria Low Back Low Back Problem Active 2015-11-02 [facility] Pain Pain 03:35:47 l Active [place] Problem 11/02/2015 eCW: Gaurav Bria Fibromyalg Fibromyal Problem Active 2015-11-02 Memoria ia clemente Active 03:35:47 l Problem [place] 11/02/2015 eCW: Gaurav Fraser Routine Routine Diagnosis Active 2014-01-08 [facility] medical medical 02:02:51 l exam exam [place] Active Diagnosis 01/08/2014 eCW: Gaurav Fraser Screen Screen Diagnosis Active 2014-03-18 Me moria Mammogram Mammogram 03:04:03 l NEC NEC Active [place] Diagnosis 03/18/2014 eCW: Gaurav LebronBria Vitamin D Vitamin D Problem Active 2015-11-02 [facility] Deficiency Deficiency 03:35:47 l Active [place] Problem 11/02/2015 eCW: Gaurav Fraser Pre-op Pre-op Diagnosis Active 2015-02-24 Ia moria evaluation evaluation 03:03:42 l Active [place] Diagnosis 02/24/2015 eCW: Gaurav Fraser Pre-op Pre-op Diagnosis Active 2015-05-21 Ia moria examinatio examinatio 04:05:13 l n n Active [place] Diagnosis 05/21/2015 eCW: Gaurav LebronBria Restless Restless Problem Active 2016-05-18 [facility]oria legs legs 03:03:33 l syndrome syndrome [place] n Active Problem 05/18/2016 eCW: Gaurav LebronBria Depression Depressio Problem Active 2016-05-18 [facility] with n with 03:03:33 l anxiety anxiety [place] Active Problem 05/18/2016 eCW: Gaurav LebronBria Spinal Spinal Problem Active 2016-05-18 Inder homar stenosis stenosis 03:03:33 l of of [place] thoracolum thoracolum bar region bar region Active Problem 05/18/2016 eCW: Gaurav LebronBria Vitamin D Vitamin D Problem Active 2016-05-18 Memoria deficiency deficiency 03:03:33 l Active [place] Problem 05/18/2016 eCW: Gaurav LebronBria Dorsalgia, Dorsalgia Problem Active 2016-05-18 Memoria unspecifie , 03:03:33 l d unspecifie [place] n d Active Problem 05/18/2016 eCW: Gaurav LebronBria Osteoporos Osteoporo Problem Active 2016-05-18 Memoria is sis Active 03:03:33 l Problem [place] 05/18/2016 eCW: Gaurav Bria Hypothyroi Hypothyro Problem Active 2016-05-18 Memoria dism, idism, 03:03:33 l unspecifie unspecifie He rmann d d Active Problem 05/18/2016 eCW: Gaurav Bria Fibromyalg Fibromyal Problem Active 2016-05-18 Memoria ia clemente Active 03:03:33 l Problem [place] 05/18/2016 eCW: Gaurav Fraser Hyperlipid Hyperlipi Problem Active 2016-05-18 Memoria emia, demia, 03:03:33 l unspecifie unspecifie He rmann d d Active Problem 05/18/2016 eCW: Gaurav Fraser Generalize Generaliz Problem Active 2016-05-18 Memoria d OA ed OA 03:03:33 l Active [place] Problem 05/18/2016 eCW: Gaurav Fraser Cacosmia Cacosmia Diagnosis Active 2014-11-21 Memoria Active 02:25:30 l Diagnosis [place] 11/21/2014 eCW: Gaurav LebronBria Memory Memory Diagnosis Active 2015-05-21 M emoria deficits deficits 03:39:44 l Active [place] Diagnosis 05/21/2015 eCW: Gaurav Fraser Conjunctiv Conjuncti Diagnosis Active 2015-05-21 Memoria itis vitis 04:11:35 l Active [place] Diagnosis 05/21/2015 eCW: Gaurav Fraser Hypertensi Hypertens Problem Active 2016-05-18 Memoria on ion Active 03:03:33 l Problem [place] 05/18/2016 eCW: Gaurav LebronBria Obesity Obesity Problem Active 2016-05-18 Me moria Active 03:03:33 l Problem [place] 05/18/2016 eCW: Gaurav Fraser Conjunctiv Conjuncti Diagnosis Active 2015-11-02 Memoria itis vitis 03:35:47 l Active [place] Diagnosis 11/02/2015 eCW: Gaurav LebronBria History of Past Illness Condition Condition Condition Status Onset Resolution Last Treating Co mments Source Name Details Category Date Date Treatment Clinician Date M1 M190 Diagnosis 2018-2018-10-22 2018-10-22 Memoria UNSPECIFIE UNSPECIFIE 10-01 15:01:34 15:01:34 l D D 00:00: [place] OSTEOARTHR OSTEOARTHR 00 ITIS, ITIS, UNSPECIFIE UNSPECIFIE D SITE D SITE 10/01/2018 Diagnosis 10/22/2018 Echo Z95.810 Z95.810 Diagnosis 2018-2018-10-22 2018-10-22 Memoria PRESENCE PRESENCE 6-25 15:01:34 15:01:34 l OF OF 00:00: [place] AUTOMATIC AUTOMATIC 00 (IMPLANTAB (IMPLANTAB LE) LE) CARDIAC CARDIAC DEFIBRILLA DEFIBRILLA TOR TOR 10/01/2018 Diagnosis 10/22/2018 Echo E78.5 E78.5 Diagnosis 2019-2018-10-22 2018-10-22 Memoria HYPERLIPID HYPERLIPID 10-01 15:01:34 15:01:34 l EMIA, EMIA, 00:00: [place] UNSPECIFIE UNSPECIFIE 00 D D 10/01/2018 Diagnosis 10/22/2018 Echo K21.9 K21.9 Diagnosis 2018-2018-10-22 2018-10-22 Memoria GASTRO-ESO GASTRO-ESO 10-01 15:01:34 15:01:34 l PHAGEAL PHAGEAL 00:00: [place] REFLUX REFLUX 00 DISEASE DISEASE WITHOUT WITHOUT ESOPHAGITI ESOPHAGITI S S 10/01/2018 Diagnosis 10/22/2018 Echo R52 PAIN, R52 PAIN, Diagnosis 2018-2018-10-22 2018-10-22 Memoria UNSPECIFIE UNSPECIFIE 10-01 15:01:34 15:01:34 l D D 00:00: [place] 10/01/2018 00 Diagnosis 10/22/2018 Echo R53.1 R53.1 Diagnosis 2018-10-22 2018-10-22 Memoria WEAKNESS WEAKNESS 10-01 15:01:34 15:01:34 l 10/01/2018 00:00: [place] Diagnosis 00 10/22/2018 Echo L30.9 L30.9 Diagnosis 2018-2018-10-22 2018-10-22 Memoria DERMATITIS DERMATITIS 10-01 15:01:34 15:01:34 l , , 00:00: [place] UNSPECIFIE UNSPECIFIE 00 D D 10/01/2018 Diagnosis 10/22/2018 Echo W19.XXXA W19.XXXA Diagnosis 2018-10-22 2018-10-22 Memoria UNSPECIFIE UNSPECIFIE 10-01 15:01:34 15:01:34 l D FALL, D FALL, 00:00: [place] INITIAL INITIAL 00 ENCOUNTER ENCOUNTER 10/01/2018 Diagnosis 10/22/2018 Echo E66.9 E66.9 Diagnosis 2018-2018-10-22 2018-10-22 Memoria OBESITY, OBESITY, 10-01 15:01:34 15:01:34 l UNSPECIFIE UNSPECIFIE 00:00: [place] D D 00 10/01/2018 Diagnosis 10/22/2018 Echo M43.26 M43.26 Diagnosis 2018-2018-10-22 2018-10-22 Memoria FUSION OF FUSION OF 6- 15:01:34 15:01:34 l SPINE, SPINE, 00:00: [place] LUMBAR LUMBAR 00 REGION REGION 10/01/2018 Diagnosis 10/22/2018 Echo F32.9 F32.9 Diagnosis 2017-2018-10-22 2018-10-22 Memoria MAJOR MAJOR 3 15:01:34 15:01:34 l DEPRESSIVE DEPRESSIVE 00:00: [place] r[place] DISORDER, DISORDER, 00 SINGLE SINGLE EPISODE, EPISODE, UNSPECIFIE UNSPECIFIE D D 07/03/2017 Diagnosis 10/22/2018 [facility] R25.1 R25.1 Diagnosis 2017-2018-10-22 2018-10-22 Memoria TREMOR, TREMOR, 07-03 15:01:34 15:01:34 l UNSPECIFIE UNSPECIFIE 00:00: [place] D D 00 07/03/2017 Diagnosis 10/22/2018 [facility] Z98.890 Z98.890 Diagnosis 2018-10-22 2018-10-22 Memoria OTHER OTHER 07-03 15:01:34 15:01:34 l SPECIFIED SPECIFIED 00:00: Herm ila POSTPROCED POSTPROCED 00 URAL URAL STATES STATES 07/03/2017 Diagnosis 10/22/2018 Echo M54.5 LOW M54.5 LOW Diagnosis 2018-10-22 2018-10-22 Memoria BACK PAIN BACK PAIN 07-03 15:01:34 15:01:34 l 07/03/2017 00:00: [place] Diagnosis 00 10/22/2018 Echo I10 I10 Diagnosis 2018-10-22 2018-10-22 Memoria ESSENTIAL ESSENTIAL 3 15:01:34 15:01:34 l (PRIMARY) (PRIMARY) 00:00: Herm ila HYPERTENSI HYPERTENSI 00 ON ON 07/03/2017 Diagnosis 10/22/2018 Echo Z96.9 Z96.9 Diagnosis 2018-10-22 2018-10-22 Memoria PRESENCE PRESENCE 3 15:01:34 15:01:34 l OF OF 00:00: [place] FUNCTIONAL FUNCTIONAL 00 IMPLANT, IMPLANT, UNSPECIFIE UNSPECIFIE D D 07/03/2017 Diagnosis 10/22/2018 Echo Chronic Chronic Diagnosis 2017-2018-10-22 2018-10-22 Memoria pain pain 07-03 15:01:34 15:01:34 l syndrome syndrome 00:00: [place] n (disorder) (disorder) 00 8 Diagnosis 10/22/2018 Echo Z97.8 Z97.8 Diagnosis 2017-2018-10-22 2018-10-22 Memoria PRESENCE PRESENCE 07-03 15:01:34 15:01:34 l OF OTHER OF OTHER 00:00: [place] SPECIFIED SPECIFIED 00 DEVICES DEVICES 07/03/2017 Diagnosis 10/22/2018 Echo M79.7 M79.7 Diagnosis 2017-2018-10-22 2018-10-22 Memoria FIBROMYALG FIBROMYALG 07-03 15:01:34 15:01:34 l IA IA 00:00: [place] 07/03/2017 00 Diagnosis 10/22/2018 Echo E03.9 E03.9 Diagnosis 2017-2018-10-22 2018-10-22 Memoria HYPOTHYROI HYPOTHYROI 07-03 15:01:34 15:01:34 l DISM, DISM, 00:00: [place] UNSPECIFIE UNSPECIFIE 00 D D 07/03/2017 Diagnosis 10/22/2018 [facility] Z90.710 Z90.710 Diagnosis 2018-10-22 2018-10-22 Memoria ACQUIRED ACQUIRED 07-03 15:01:34 15:01:34 l ABSENCE OF ABSENCE OF 00:00: [place] BOTH BOTH 00 CERVIX AND CERVIX AND UTERUS UTERUS 07/03/2017 Diagnosis 10/22/2018 Echo F41.9 F41.9 Diagnosis 2018-10-22 2018-10-22 Memoria ANXIETY ANXIETY 07-03 15:01:34 15:01:34 l DISORDER, DISORDER, 00:00: Herm ila UNSPECIFIE UNSPECIFIE 00 D D 07/03/2017 Diagnosis 10/22/2018 Echo Z96.643 Z96.643 Diagnosis 2018-10-22 2018-10-22 Memoria PRESENCE PRESENCE 07-03 15:01:34 15:01:34 l OF OF 00:00: [place] ARTIFICIAL ARTIFICIAL 00 HIP JOINT, HIP JOINT, BILATERAL BILATERAL 07/03/2017 Diagnosis 10/22/2018 Echo Allergies, Adverse Reactions, Alerts Allergy Allergy Status Severity Reaction(s) Onset Inactive Treating Comm ents Source Name Type Date Date Clinician acetamin acetamin Active Memori a ophen-co ophen-co 6-25 l deine deine 00:00: Morphine Morphine Active Memori a 6-25 l 00:00: Codeine Codeine Active Memoria 3-27 l 00:00: Sulfa Sulfa Active [facility] Drugs Drugs 3-27 l 00:00: Sulfa Propensi Active Hives [facility] ([facility] 2-06 [facility] mide adverse 00:00: Medical Antibiot reaction 00 Center ics) s Codeine Propensi Active Nausea And [facility] ty to Vomiting 2-06 [facility] adverse 00:00: Medical reaction 00 Center s Sulfa Propensi Active Hives [facility] (Sulfona ty to 2-06 [facility] mide adverse 00:00: Medical Antibiot reaction 00 Center ics) s Sulfa Sulfa Active hives Memoria 9-26 l 00:00: Social History Social Habit Start Date Stop Date Quantity Comments Source Alcohol intake 2017-12-11 2017-12-[address] [facility] 00:00:00 00:00:00 non-drinker of Medical Ce nter alcohol (finding) Tobacco use and 2017-05-15 2017-05-[address] [facility] Ile[facility] kes exposure 00:00:00 00:00:00 Medical Center Language: 2016-01-03 2016-01-03 [facility] 00:00:00 00:00:00 Sex Assigned At [address] [facility] kes 00:00:00 00:00:00 [facility] Smoking Status Start Date Stop Date Source Social History [facility] Never sm[facility] Medications Ordered Filled Start Stop Current Ordering Indication Dosage Frequency Signature Comments Components Source Medication Medication Date Date Medication? Clinician (SIG) Name Name oxyCODONE Yes Give 1 Memori a HCl Tablet 7-01 tablet by l 10 MG 01:00: mouth three times a day for pain oxyCODONE Yes Give 1 Memori a HCl Tablet 7-01 tablet by l 10 MG 01:00: mouth [place] 00 three times a day for pain QUEtiapine Yes GIVE 1 Memor ia Fumarate 6-27 TABLET BY l Tablet 50 00:00: MOUTH AT Herm ila MG 00 BEDTIME Mirapex Yes GIVE 1 Memoria Tablet 0.5 6-27 TABLET BY l MG 00:00: MOUTH AT [place] 00 BEDTIME QUEtiapine Yes GIVE 1 Memor ia Fumarate 6-27 TABLET BY l Tablet 50 00:00: MOUTH AT Herm ila MG 00 BEDTIME Mirapex Yes GIVE 1 Memoria Tablet 0.5 6-27 TABLET BY l MG 00:00: MOUTH AT [place] 00 BEDTIME Lyrica Yes Give 1 Memoria Capsule 200 6-26 capsule by l MG 20:00: mouth [place] 00 three times a day related to FIBROMYALG IA (M79.7) Lyrica Yes Give 1 Memoria Capsule 200 6-26 capsule by l MG 20:00: mouth [place] 00 three times a day related to FIBROMYALG IA (M79.7) oxyCODONE Yes Give 1 Memori a HCl Tablet 6-26 tablet by l 10 MG 12:00: mouth [place] 00 three times a day for pain for 7 Days Centrum Yes Give 1 Memoria Adults 6-26 tablet by l Tablet 12:00: mouth one [place] n 00 time a day for Dietary Supplement Forteo Yes Inject 20 Memori a Solution 6-26 mcg l 12:00: subcutaneo [place] 00 usly one time a day related to UNSPECIFIE D OSTEOARTHR ITIS, UNSPECIFIE D SITE (M19.90) Cholestyram Yes GIVE 1 Inder homar ine Light 6-26 PACKET BY l Packet 4 GM 12:00: MOUTH ONE H ermann 00 TIME A DAY MIX IN 8OZ LIQUID Lotrisone Yes APPLY TO Inder homar Cream 6-26 AFFECTED l 1-0.05 % 12:00: AREA [place] 00 TOPICALLY TWO TIMES A DAY BOTH [...] capsule by l MG 12:00: mouth four [place] 00 times a day related to FIBROMYALG IA (M79.7) DESVENLAFAX Yes TAKE 1 TAB Memoria INE ER 50MG 6-26 BY MOUTH l TAB ER 24H 12:00: EVERY DAY [place] rmann 00 Ferrous Yes Give 1 Memoria Sulfate 6-26 tablet by l Tablet 325 12:00: mouth one He rmann (65 Fe) MG 00 time a day for supplement ation Vitamin D2 Yes GIVE 35278 M emoria Tablet 6-26 UNIT BY l 12:00: MOUTH ONE [place] 00 TIME A DAY EVERY WED GlycoLax [...] DEPRESSIVE DISORDER, SINGLE EPISODE, UNSPECIFIE D (F32.9) oxyCODONE Yes Give 1 Memori a HCl [...] 6-26 AFFECTED l 1-0.05 % 12:00: AREA [place] 00 TOPICALLY TWO TIMES A DAY BOTH [...] for supplement ation Vitamin D2 Yes GIVE 23988 M emoria Tablet 6-26 UNIT BY l 12:00: MOUTH ONE [place] 00 TIME A DAY EVERY SUN GlycoLax Yes Give 17 Memori a Powder [...] D (F32.9) Levothyroxi Yes GIVE 1 Inder hmoar ne Sodium 6-26 TABLET BY l Tablet 112 10:00: MOUTH ONE He rmann MCG 00 TIME A DAY GIVE 30 MINUTES BEFORE BREAKFAST ON EMPTY STOMACH OMEPRAZOLE 2019 Yes 1 CAP BY Mem oria 20MG 6-[address] 10:00: EVERY DAY He rmann 00 AT LEAST 30MINUTES BEFORE A MEAL TI FOR NEXIUM Levothyroxi Yes GIVE 1 Inder homar ne [...] 00 every 12 hours for constipati on Docusate Yes Give 1 Memoria Sodium 6-26 capsule by l Capsule 100 00:00: mouth Linda nn MG 00 every 12 hours for constipati on pregabalin Yes 225mg Q.5D Take [address] (LYRICA) -06 mg by [facility] 225 MG 16:19: mouth 2 Medical capsule 24 (two) Center times daily. clotrimazol Yes Q.5D Apply [facility] e-betametha 12-13 topically Jael es sone 16:19: 2 (two) Medical (LOTRISONE) 24 times Center 1-0.05 % daily. cream cholecalcif Yes [id number] Q7D Take [facility] brady, 12-13 50,000 [facility] vitamin D3, 16:19: Units by Me dical (DECARA) 24 mouth once Cente r 50,000 unit a week. capsule desvenlafax Yes 50mg QD Take [address] [facility] ine 06 by mouth [facility] succinate 16:19: daily. Medica l (PRISTIQ) 24 Center 50 MG 24 hr tablet mirtazapine Yes 15mg QD Take [address] [facility] (REMERON) 12-13 by mouth [facility] 30 MG 16:19: nightly [...] [facility] MINE 9-06 by mouth [facility] (ZZZQUIL) 16:19: every Medical 25 mg 24 night as Center capsule needed (sleep). MENTHOL 2018-0 Yes 1{patch Q.5D Apply [address] [facility] (ICY HOT 12-13 } patch [facility] PATCH TOP) 16:19: topically Me dical 24 2 (two) Center times daily. gabapentin 2018-0 Yes 300mg Q.[id number] Take [address] (NEURONTIN) 9- [id number] mg by L ukes 300 MG 16:19: [...] 1-0.05 % daily. cream cholecalcif 2018-0 Yes [id number] Q7D Take [facility] brady, 12-13 50,000 [facility] vitamin D3, 16:19: Units by Ia dicdiane (DECARA) 24 mouth once Cente r 50,000 unit a week. capsule desvenlafax 2017-0 Yes 50mg QD Take [address] [facility] ine 906 by mouth [facility] succinate 16:19: daily. Medica [...] 2{spray [address] ne (AFRIN) } by Nasal [facility] 0.05 % 16:19: route 2 Medical nasal spray 24 (two) Center times daily as needed for Congestion . diphenhydrA 2018-0 Yes 25mg Take [address] MINE 9 by mouth [facility] (ZZZQUIL) 16:19: every Medical 25 mg 24 night as Center capsule needed (sleep). MENTHOL 2018-0 Yes 1{patch Q.5D Apply [address] [facility] [facility] (ICY HOT 12-13 } patch [facility] PATCH TOP) 16:19: topically Me dical 24 2 (two) Center times daily. gabapentin 2018-0 Yes 300mg Q.[id number] Take [address] (NEURONTIN) 12-13 [id number] mg by L ukes 300 MG 16:19: 3D mouth 3 Medical capsule 24 (three) Center times daily. oxyCODONE 2018-0 Yes 15mg Take [address] (ROXICODONE 12-13 by mouth Luke s ) 15 MG 16:19: every 4 Medical immediate 24 (four) Center release hours as tablet needed for Pain. furosemide 2018-0 Yes hypertensio 10mg QD Take [address] (LASIX) 20 9-06 n by mouth [facility] MG tablet 16:19: daily. Medica l 24 Center levothyroxi 2018-0 Yes 112ug Take [address] ne 9- mcg by [facility]ukes (SYNTHROID, 16:19: mouth Medic [...] 1-0.05 % daily. cream cholecalcif 2018-0 Yes [id number] Q7D Take [facility] brady, 12-13 50,000 [...] nightly . Medical tablet 24 Center temazepam 20180 Yes 15mg Take [address] (RESTORIL) 06 by mouth [facility] 15 mg 16:19: every [...] daily as needed for Congestion . diphenhydrA 20180 Yes 25mg Take [address] MINE - by mouth [facility] (ZZZQUIL) 16:19: every Medical 25 mg 24 night as Center capsule needed (sleep). MENTHOL 2018-0 Yes 1{patch Q.5D Apply [address] (ICY HOT 12-13 } patch [facility] PATCH TOP) 16:19: topically Me dical 24 2 (two) Center times daily. gabapentin 2018-0 Yes 300mg Q.[id number] Take [address] (NEURONTIN) - [id number] mg by L ukes 300 MG 16:19: [...] 16:19: daily. Medica l 24 Center levothyroxi Yes 112ug Take [address] ne 9-06 mcg by [facility]ukes (SYNTHROID, 16:19: mouth Medic al LEVOTHROID) 24 Every Center 112 MCG morning on tablet an empty stomach. Temazepam Yes Give 1 Memori a Capsule 15 4-14 capsule by l MG 05:00: mouth [place] 00 every 24 hours as needed for insomnia Temazepam Yes Give 1 Memori a Capsule 15 4-14 capsule by l MG 05:00: mouth [place] 00 every 24 hours as needed for insomnia Ibuprofen Yes GIVE 1 Memori a Tablet 400 4-12 TABLET BY l MG 20:00: MOUTH [place] 00 THREE TIMES A DAY FOR 7 DAYS Ibuprofen Yes GIVE 1 Memori a Tablet 400 4-12 TABLET BY l MG 20:00: MOUTH [place] 00 THREE TIMES A DAY FOR 7 DAYS OxyCODONE Yes Give 1 Memori a HCl Tablet 4-07 tablet by l 15 MG 16:15: mouth [place] 00 every 6 hours as needed for For pain OxyCODONE Yes Give 1 Memori a HCl Tablet 4-07 tablet by l 15 MG 16:15: mouth [place] 00 every 6 hours as needed for For pain Temazepam Yes Give 2 Memori a Capsule 7.5 4-07 capsule by l MG 03:00: mouth [place] 00 every 24 hours as needed for insomnia give 2 tabs = 15mg Temazepam Yes Give 2 Memori a Capsule 7.5 4-07 capsule by l MG 03:00: mouth [place] 00 every 24 hours as needed for insomnia give 2 tabs = 15mg Amoxicillin Yes GIVE 1 Inder homar -Pot 4-06 TABLET BY l Clavulanate 00:00: MOUTH Linda nn Tablet 00 EVERY 12 875-125 MG HOURS FOR 7 DAYS Amoxicillin Yes GIVE 1 Inder homar -Pot [...] every 24 hours as needed for Insomnia Temazepam Yes Give 1 Memori a Capsule 15 4-05 capsule by l MG 20:45: mouth [place] 00 every 24 hours as needed for Insomnia Bisacodyl Yes Give 2 Memori a EC Tablet 4-04 tablet by l Delayed 15:00: mouth [place] Release 5 00 every 24 MG hours as needed for constipati on Bisacodyl Yes Give 2 Memori a EC Tablet 4-04 tablet by l Delayed 15:00: mouth [place] Release 5 00 every 24 MG hours as needed for constipati on Acetaminoph Yes Give 2 Inder homar en Tablet 4-02 tablet by l 325 MG 20:45: mouth [place] 00 every 6 hours as needed for pain and fever greater than 100.4 Acetaminoph Yes Give 2 Inder homar en Tablet 4-02 tablet by l 325 MG 20:45: mouth [place] 00 every 6 hours as needed for pain and fever greater than 100.4 Decara Yes Give 38469 Memor ia Capsule 3-29 unit [place] l 43019 UNIT 12:00: mouth one [place] rmann 00 time a day every Hannah for Vitamin Supplement Decara Yes Give 79255 Memor ia Capsule 3-29 unit [place] l 46869 UNIT 12:00: mouth one He rmann 00 [...] Her mcguire MG 00 TIME A DAY Lidoderm Yes APPLY TO Memor ia Patch 5 % 3-28 RIGHT l 12:00: THIGH [place] 00 TOPICALLY ONE TIME A DAY APPLY TO (SPECIFY SITE) AND REMOVE PER SCHEDULE DESVENLAFAX Yes 1 TAB BY Me moria INE ER 50MG 3-28 MOUTH l TAB ER 24H 12:00: EVERY DAY He rmann Desvenlafax Yes Give 1 Inder homar ine [...] 30 MINUTES BEFORE BREAKFAST ON EMPTY STOMACH Levothyroxi Yes GIVE 1 Inder homar ne [...] as needed for sleep for 14 Days Cyclobenzap Yes GIVE 1 Inder homar rine [...] TABLET BY l MG 00:00: MOUTH AT [place] 00 BEDTIME Lyrica Yes Give 1 Memoria Capsule 225 3-28 capsule by l MG 00:00: mouth two [place] 00 times a day related to FIBROMYALG IA (M79.7) Clotrimazol Yes Apply to Ia moria e-Betametha 3-28 affected l sone Cream 00:00: area [place] 1-0.05 % 00 topically two times a day for affected area Docusate Yes Give 1 Memoria Sodium 3-28 capsule by l Capsule 100 00:00: mouth two H ermann MG 00 times a day for Constipati on Mirtazapine Yes GIVE 1 Inder homar Tablet 30 3-28 TABLET BY l MG 00:00: MOUTH AT [place] 00 BEDTIME Mirapex Yes GIVE 1 Memoria Tablet 0.5 3-28 TABLET BY l MG 00:00: MOUTH AT [place] 00 BEDTIME Lyrica Yes Give 1 Memoria Capsule 225 3-28 capsule by l MG 00:00: mouth two [place] 00 times a day related to FIBROMYALG IA (M79.7) Clotrimazol Yes Apply to Me moria e-Betametha 3-28 affected l sone Cream 00:00: area [place] 1-0.05 % 00 topically two times a day for affected area Docusate Yes Give 1 Memoria Sodium 3-28 capsule by l Capsule 100 00:00: mouth two H ermann MG 00 times a day for Constipati on Enulose Yes GIVE 15 ML Inder homar Solution 10 3-27 BY MOUTH l GM/15ML 23:15: EVERY 48 Blaise n 00 HOURS NEEDED FOR CONSTIPATI ON Enulose Yes GIVE 15 ML Inder homar [...] tablet by l 15 MG 20:45: mouth [place] 00 every 6 hours as needed for severe pain for 10 Days Acetaminoph Yes Give 2 Inder homar en Tablet 3-27 tablet by l 325 MG 20:45: mouth [place] 00 every 6 hours as needed for pain OxyCODONE Yes Give 1 Memori a HCl Tablet 3-27 tablet by l 15 MG 20:45: mouth [place] 00 every 6 hours as needed for severe pain for 10 Days hydrochloro Yes Brigid HannaElías 1 tab(s) Memoria thiazide-lo 2-08 Bria l sartan 00:00: [place] 00 hydrochloro 2017- Yes Brigid Elías 1 tab(s) Memoria thiazide-lo 2-08 Bria l sartan 00:00: [place] 00 lorazepam 2017- Yes Brigid HannaElías 1 tab(s) Memoria 1-26 Bria l 03:03: [place] 13 lorazepam 2016- Yes Brigid HannaElías 1 tab(s) Memoria 1-26 Bria l 03:03: [place] 13 ibandronate 2015-04 Yes Milagros Tejeda 1 tab(s) Memoria 0-13 l 02:18: [place] 44 levothyroxi 2015-04 Yes Milagros Ileana 1 tab(s) Memoria ne 0-13 l 02:18: [place] 44 Pristiq 2015-04 Yes Milagros Ileana 1 tab(s) Memoria 0-13 l 02:18: [place] 44 Vitamin D3 2015-04 Yes Milagros Ileana 1 cap(s) Memoria 0-13 l 02:18: [place] 44 mirtazapine 2015-04 Yes Milagros Ileana 1 tab(s) Memoria 0-13 l 02:18: [place] 44 zolpidem 2015-04 Yes Milagros Ileana 1 tab(s) [facility] 0-13 l 02:18: [place] 44 Butrans 2015-04 Yes Milagros Tejeda 1 patch M emoria 0-13 l 02:18: [place] 44 lidocaine 2015-04 Yes Milagros Ileana - Me moria 0.5% 0-13 l topical 02:18: [place] [facility] 44 fenofibrate 2015-04 Yes Milagros Ileana 1 tab(s) [facility] 0-13 l 02:18: [place] 44 clonidine 2015-04 Yes Milagros Ileana 1 tab(s) [facility] 0-13 l 02:18: [place] 44 hydrochloro 2015-04 Yes Milagros Ileana 1 tab(s) [facility] thiazide-lo 0-13 l sartan 02:18: [place] 44 levothyroxi 2015-04 Yes Milagros Ileana 1 tab(s) [facility] ne 0-13 l 02:18: [place] 44 fenofibrate 2015-04 Yes Milagros Ileana 1 tab(s) [facility] 0-13 l 02:18: [place] 44 Vitamin D3 2015-04 Yes Milagros Ileana 1 cap(s) [facility] 0-13 l 02:18: [place] 44 mirtazapine 2015-04 Yes Milagros Ileana 1 tab(s) [facility] 0-13 l 02:18: [place] 44 ibandronate 2015-04 Yes Milagros Ileana 1 tab(s) [facility] 0-13 l 02:18: [place] 44 zolpidem 2015-04 Yes Milagros Ileana 1 tab(s) [facility] 0-13 l 02:18: [place] 44 Pristiq 2015-04 Yes Milagros Ileana 1 tab(s) [facility] 0-13 l 02:18: 44 lidocaine 2015- Yes Milagros Tejeda - Me moria 0.5% 0-13 l topical 02:18: 44 Butrans 2015- Yes Milagros Tejeda 1 patch M emoria 0-13 l 02:18: 44 clonidine 2015- Yes Milagros Tejeda 1 tab(s) [facility] 0-13 l 02:18: 44 hydrochloro 2015- Yes Milagros Tejeda 1 tab(s) [facility] thiazide-lo 0-13 l sartan 02:18: 43 ergocalcife 2016-0 Yes Milagros Tejeda 1 cap(s) [facility] rol -26 l 00:00: clotrimazol 2016-0 Yes Milagros Tejeda 1 noy [facility] e topical 01-02 l 00:00: Lyrica [id number] Yes Brigid Elías 1 cap(s) M emoria 01-02 Bria l 00:00: Lyrica 2015-0 Yes Brigid Elías 1 cap(s) M emoria 01-02 Bria l 00:00: ergocalcife 2015-0 Yes Milagros Tejeda 1 cap(s) [facility] rol 01-02 l 00:00: clotrimazol 2015-0 Yes Milagros Tejeda 1 noy [facility] e topical 01-02 l 00:00: PrednisoLON 2015-0 Yes Milagros Tejdea 1 gtt [facility] E Na 6-27 l Phosphate-N 00:00: [place] n a 00 Sulfacetami de Vigamox 2016-0 Yes Brandon 1 gtt Inder homar 6-27 Davis l 00:00: [place] 00 Vigamox 2016-0 Yes Brandon 1 gtt Inder homar 6-27 Davis l 00:00: PrednisoLON 2015-0 Yes Milagros Tejeda 1 gtt [facility] E Na 6-27 l Phosphate-N 00:00: [place] n a 00 Sulfacetami de Lyrica 2015-0 Yes Brandon 1 cap(s) Me moria 6-01 Davis l 00:00: [place] 00 Lyrica 2016-0 Yes Brandon 1 cap(s) Me moria 6-01 Davis l 00:00: [place] 00 Lyrica 2016-0 Yes Brandon 1 cap(s) Me moria 4-29 Davis l 02:37: [place] 52 Lyrica 0 Yes [place] 1 cap(s) Me moria 4-29 Davis l 02:37: [place] 52 hydrochloro 0 Yes Brandon 1 tab(s) [facility] thiazide-lo 2-29 Davis l sartan 00:00: [place] 00 hydrochloro 0 Yes Brandon 1 tab(s) [facility] thiazide-lo 2-29 Davis l sartan 00:00: [place] 00 benzonatate 0 Yes Brandon 1 cap(s) [facility] 2-12 Davis l 03:39: [place] 44 benzonatate 0 Yes Brandon 1 cap(s) [facility] 2-12 Davis l 03:39: [place] 44 Lyrica 2014-04 Yes Brandon 1 cap(s) Me moria 1-23 Davis l 00:00: [place] 00 Lyrica 2014-1 Yes Brandon 1 cap(s) Me moria 1-23 Davis l 00:00: [place] 00 Levaquin 2014-1 Yes Brandon 1 tab(s) [facility] 1-04 Davis l 00:00: [place] 00 Levaquin 2014-1 Yes Brandon 1 tab(s) [facility] 1-04 Davis l 00:00: [place] 00 ofloxacin 2015-0 Yes Brandon 2 gtt Me moria ophthalmic 9-28 Davis l 00:00: [place] 00 ofloxacin 2015-0 Yes Brandon 2 gtt Me moria ophthalmic 9-28 Davis l 00:00: [place] 00 Betamethaso 2015-0 Yes Brandon 1 noy [facility] ne-Clotrima 8-11 Davis l zole 00:00: [place] 00 Betamethaso 2015-0 Yes Brandon 1 noy [facility] ne-Clotrima 8-11 Davis l zole 00:00: [place] 00 Montelukast 2015-0 Yes [place] 1 tab(s) [facility] Sodium 3-30 Davis l 00:00: [place] 00 Montelukast 2015-0 Yes [place] 1 tab(s) [facility] Sodium 3-30 Davis l 00:00: [place] 00 benzonatate 2015-0 Yes Brandon 1 cap(s) [facility] 3-16 Davis l 00:00: [place] 00 ProAir HFA Yes Brandon 2 puff(s) [facility] 3-16 Davis l 00:00: benzonatate Yes [place] 1 cap(s) [facility] 3-16 Davis l 00:00: [place] 00 ProAir HFA Yes [place] 2 puff(s) [facility] 3-16 Davis l 00:00: Betamethaso 2013-04 Yes Brandon 1 noy [facility] ne-Clotrima 2-15 Davis l zole 00:00: Betamethaso 2013-04 Yes Brandon 1 noy [facility] ne-Clotrima 2-15 [place] l zole 00:00: cyclobenzap 2013-04 Yes [place] 1 tab(s) [facility] rine 2-10 Davis l 03:04: tramadol 2013-04 Yes [place] 2 tab(s) [facility] 2-10 Davis l 03:04: tramadol 2013-04 Yes [place] 2 tab(s) [facility] 2-10 Davis l 03:04: cyclobenzap 2013-04 Yes [place] 1 tab(s) [facility] rine 2-10 Davis l 03:04: zolpidem 2013-04 Yes [place] 1 tab(s) [facility] 0-29 Davis l 00:00: zolpidem 2013-04 Yes [place] 1 tab(s) [facility] 0-29 Davis l 00:00: Vitamin D3 2013- Yes [place] 1 cap(s) [facility] 9-11 Davis l 00:00: Vitamin D3 0 Yes [place] 1 cap(s) [facility] 9-11 Davis l 00:00: Lyrica 0 Yes [place] 1 cap(s) Me moria 8-28 Davis l 00:00: Lyrica 2013-0 Yes [place] 1 cap(s) Me moria 8-28 Davis l 00:00: Immunizations Ordered Immunization Filled Immunization Date Status Commen ts Source Name Name Influenza ([facility]) 2014-03-23 Completed [facility] 00:00:00 [place] Influenza ([facility]) 2014-03-23 Completed [facility] 00:00:00 [place] Vital Signs Vital Name Observation Time Observation Value Comments Source Systolic (mm Hg) 2018-10-22 11:19:00 Inder rial [place] Diastolic (mm Hg) 2018-10-22 11:19:00 [facility] [place] Temperature Oral (F) 2018-10-22 11:19:00 98 F [facility] [place] Heart Rate 2018-10-22 11:19:00 53 /min [facility] [place] Respitory Rate 2018-10-22 11:19:00 [facility] al [place] Systolic (mm Hg) 2018-10-22 04:28:00 Inder rial [place] Diastolic (mm Hg) 2018-10-22 04:28:00 Mem [facility]rial [place] Temperature Oral (F) 2018-10-22 04:28:00 98 F [facility] [place] Heart Rate 2018-10-22 04:28:00 54 /min [facility] [place] Respitory Rate 2018-10-22 04:28:00 [facility] [place] Systolic (mm Hg) 2018-10-21 19:04:00 Inder rial [place] Diastolic (mm Hg) 2018-10-21 19:04:00 [facility] [place] Temperature Oral (F) 2018-10-21 19:04:00 97 F [facility] [place] Heart Rate 2018-10-21 19:04:00 60 /min [facility] [place] Respitory Rate 2018-10-21 19:04:00 [facility] [place] Systolic (mm Hg) 2018-10-21 11:27:00 Inder rial [place] Diastolic (mm Hg) 2018-10-21 11:27:00 [facility] [place] Temperature Oral (F) 2018-10-21 11:27:00 98.4 F [facility] [place] Heart Rate 2018-10-21 11:27:00 52 /min [facility] [place] Respitory Rate 2018-10-21 11:27:00 [facility] [place] Systolic (mm Hg) 2018-10-21 03:38:00 Inder rial [place] Diastolic (mm Hg) 2018-10-21 03:38:00 Mem [facility] [place] Temperature Oral (F) 2018-10-21 03:38:00 98 F [facility] [place] Heart Rate 2018-10-21 03:38:00 52 /min [facility] [place] Respitory Rate 2018-10-21 03:38:00 [facility] [place] Systolic (mm Hg) 2018-10-20 22:12:00 Inder rial [place] Diastolic (mm Hg) 2018-10-20 22:12:00 Mem [facility] [place] Temperature Oral (F) 2018-10-20 22:12:00 98.6 F [facility] [place] Heart Rate 2018-10-20 22:12:00 74 /min [facility] [place] Respitory Rate 2018-10-20 22:12:00 [facility] al [place] Systolic (mm Hg) 2018-10-20 17:59:00 Inder rial [place] Diastolic (mm Hg) 2018-10-20 17:59:00 Mem orial [place] Temperature Oral (F) 2018-10-20 17:59:00 98.2 F [facility] [place] Heart Rate 2018-10-20 17:59:00 69 /min [facility] [place] Respitory Rate 2018-10-20 17:59:00 [facility] [place] Weight 2018-10-20 16:24:05 [facility] [place] Systolic (mm Hg) 2018-10-20 03:36:00 Inder rial [place] Diastolic (mm Hg) 2018-10-20 03:36:00 [facility] [place] Temperature Oral (F) 2018-10-20 03:36:00 98.4 F [facility] [place] Heart Rate 2018-10-20 03:36:00 51 /min [facility] [place] Respitory Rate 2018-10-20 03:36:00 [facility] al [place] Systolic (mm Hg) 2018-10-19 18:45:00 Inder rial [place] Diastolic (mm Hg) 2018-10-19 18:45:00 [facility] [place] Temperature Oral (F) 2018-10-19 18:45:00 97 F [facility] [place] Heart Rate 2018-10-19 18:45:00 65 /min [facility] [place] Respitory Rate 2018-10-19 18:45:00 [facility] [place] Systolic (mm Hg) 2018-10-19 11:44:00 Inder rial [place] Diastolic (mm Hg) 2018-10-19 11:44:00 [facility] [place] Temperature Oral (F) 2018-10-19 11:44:00 97.2 F [facility] [place] Heart Rate 2018-10-19 11:44:00 61 /min [facility] [place] Respitory Rate 2018-10-19 11:44:00 [facility] [place] Systolic (mm Hg) 2018-10-19 09:15:00 Inder rial [place] Diastolic (mm Hg) 2018-10-19 09:15:00 Mem orial [place] Temperature Oral (F) 2018-10-19 09:15:00 98.6 F [facility] [place] Heart Rate 2018-10-19 09:15:00 56 /min [facility] [place] Respitory Rate 2018-10-19 09:15:00 [facility] [place] Systolic (mm Hg) 2018-10-18 19:57:00 Inder rial [place] Diastolic (mm Hg) 2018-10-18 19:57:00 Mem [facility]rial [place] Temperature Oral (F) 2018-10-18 19:57:00 99.1 F [facility] [place] Heart Rate 2018-10-18 19:57:00 60 /min [facility] [place] Respitory Rate 2018-10-18 19:57:00 [facility] [place] Systolic (mm Hg) 2018-10-18 05:51:00 Inder rial [place] Diastolic (mm Hg) 2018-10-18 05:51:00 Mem o[facility] [place] Temperature Oral (F) 2018-10-18 05:51:00 98.7 F [facility] [place] Heart Rate 2018-10-18 05:51:00 57 /min [facility] [place] Respitory Rate 2018-10-18 05:51:00 [facility] [place] Systolic (mm Hg) 2018-10-17 20:12:00 Inder rial [place] Diastolic (mm Hg) 2018-10-17 20:12:00 Mem [facility] [place] Temperature Oral (F) 2018-10-17 20:12:00 97 F [facility] [place] Heart Rate 2018-10-17 20:12:00 56 /min [facility] [place] Respitory Rate 2018-10-17 20:12:00 [facility] al [place] Systolic (mm Hg) 2018-10-17 04:21:00 Inder rial [place] Diastolic (mm Hg) 2018-10-17 04:21:00 Mem o[facility] [place] Temperature Oral (F) 2018-10-17 04:21:00 97.8 F [facility] [place] Heart Rate 2018-10-17 04:21:00 59 /min [facility] [place] Respitory Rate 2018-10-17 04:21:00 [facility] [place] Systolic (mm Hg) 2018-10-16 18:56:00 Inder rial [place] Diastolic (mm Hg) 2018-10-16 18:56:00 [facility] [place] Temperature Oral (F) 2018-10-16 18:56:00 97 F [facility] [place] Heart Rate 2018-10-16 18:56:00 70 /min [facility] [place] Respitory Rate 2018-10-16 18:56:00 [facility] al [place] Systolic (mm Hg) 2018-10-16 05:26:00 Inder rial [place] Diastolic (mm Hg) 2018-10-16 05:26:00 Mem [facility] [place] Temperature Oral (F) 2018-10-16 05:26:00 98.6 F [facility] [place] Heart Rate 2018-10-16 05:26:00 58 /min [facility] [place] Respitory Rate 2018-10-16 05:26:00 [facility] al [place] Weight 2018-10-15 17:47:00 [facility] [place] Height 2018-10-15 16:15:00 [facility] [place] Systolic (mm Hg) 2018-10-15 16:03:00 Inder rial [place] Diastolic (mm Hg) 2018-10-15 16:03:00 [facility] [place] Temperature Oral (F) 2018-10-15 16:03:00 98.4 F [facility] [place] Heart Rate 2018-10-15 16:03:00 48 /min [facility] [place] Respitory Rate 2018-10-15 16:03:00 [facility] [place] Systolic (mm Hg) 2018-10-15 06:16:00 Inder rial [place] Diastolic (mm Hg) 2018-10-15 06:16:00 Mem [facility] [place] Temperature Oral (F) 2018-10-15 06:16:00 98.6 F [facility] [place] Heart Rate 2018-10-15 06:16:00 58 /min [facility] [place] Respitory Rate 2018-10-15 06:16:00 [facility] [place] Systolic (mm Hg) 2018-10-14 18:41:00 Inder rial [place] Diastolic (mm Hg) 2018-10-14 18:41:00 [facility] [place] Temperature Oral (F) 2018-10-14 18:41:00 97 F [facility] [place] Heart Rate 2018-10-14 18:41:00 59 /min [facility] [place] Respitory Rate 2018-10-14 18:41:00 [facility] [place] Systolic (mm Hg) 2018-10-14 11:44:00 Inder rial [place] Diastolic (mm Hg) 2018-10-14 11:44:00 Mem [facility] [place] Temperature Oral (F) 2018-10-14 11:44:00 97.7 F [facility] [place] Heart Rate 2018-10-14 11:44:00 44 /min [facility] [place] Respitory Rate 2018-10-14 11:44:00 [facility] [place] Systolic (mm Hg) 2018-10-14 05:50:00 Inder rial [place] Diastolic (mm Hg) 2018-10-14 05:50:00 Mem o[facility] [place] Temperature Oral (F) 2018-10-14 05:50:00 98.2 F [facility] [place] Heart Rate 2018-10-14 05:50:00 45 /min [facility] [place] Respitory Rate 2018-10-14 05:50:00 [facility] al [place] Systolic (mm Hg) 2018-10-14 05:46:00 Inder rial [place] Diastolic (mm Hg) 2018-10-14 05:46:00 Mem o[facility] [place] Temperature Oral (F) 2018-10-14 05:46:00 98 F [facility] [place] Heart Rate 2018-10-14 05:46:00 72 /min [facility] [place] Respitory Rate 2018-10-14 05:46:00 Mem[facility] al [place] Systolic (mm Hg) 2018-10-13 20:41:00 Inder rial [place] Diastolic (mm Hg) 2018-10-13 20:41:00 Mem o[facility] [place] Temperature Oral (F) 2018-10-13 20:41:00 97.8 F [facility] [place] Heart Rate 2018-10-13 20:41:00 75 /min [facility] [place] Respitory Rate 2018-10-13 20:41:00 [facility] [place] Systolic (mm Hg) 2018-10-13 05:10:00 Inder rial [place] Diastolic (mm Hg) 2018-10-13 05:10:00 Mem o[facility] [place] Temperature Oral (F) 2018-10-13 05:10:00 98.2 F [facility] [place] Heart Rate 2018-10-13 05:10:00 52 /min [facility] [place] Respitory Rate 2018-10-13 05:10:00 [facility] [place] Systolic (mm Hg) 2018-10-12 20:13:00 Inder rial [place] Diastolic (mm Hg) 2018-10-12 20:13:00 [facility] [place] Temperature Oral (F) 2018-10-12 20:13:00 98.9 F [facility] [place] Heart Rate 2018-10-12 20:13:00 65 /min [facility] [place] Respitory Rate 2018-10-12 20:13:00 [facility] [place] Systolic (mm Hg) 2018-10-12 04:07:00 Inder rial [place] Diastolic (mm Hg) 2018-10-12 04:07:00 Mem o[facility] [place] Temperature Oral (F) 2018-10-12 04:07:00 98.9 F [facility] [place] Heart Rate 2018-10-12 04:07:00 60 /min [facility] [place] Respitory Rate 2018-10-12 04:07:00 [facility] [place] Systolic (mm Hg) 2018-10-11 19:38:00 Inder rial [place] Diastolic (mm Hg) 2018-10-11 19:38:00 Mem o[facility] [place] Temperature Oral (F) 2018-10-11 19:38:00 97 F [facility] [place] Heart Rate 2018-10-11 19:38:00 54 /min [facility] [place] Respitory Rate 2018-10-11 19:38:00 [facility] [place] Systolic (mm Hg) 2018-10-11 11:23:00 Inder rial [place] Diastolic (mm Hg) 2018-10-11 11:23:00 Mem o[facility] [place] Temperature Oral (F) 2018-10-11 11:23:00 98.2 F [facility] [place] Heart Rate 2018-10-11 11:23:00 50 /min [facility] [place] Respitory Rate 2018-10-11 11:23:00 [facility] [place] Systolic (mm Hg) 2018-10-11 04:56:00 Inder rial [place] Diastolic (mm Hg) 2018-10-11 04:56:00 [facility] [place] Temperature Oral (F) 2018-10-11 04:56:00 98.7 F [facility] [place] Heart Rate 2018-10-11 04:56:00 62 /min [facility] [place] Respitory Rate 2018-10-11 04:56:00 [facility] [place] Systolic (mm Hg) 2018-10-10 18:27:00 Inder rial [place] Diastolic (mm Hg) 2018-10-10 18:27:00 Mem o[facility] [place] Temperature Oral (F) 2018-10-10 18:27:00 97 F [facility] [place] Heart Rate 2018-10-10 18:27:00 53 /min [facility] [place] Respitory Rate 2018-10-10 18:27:00 [facility] [place] Systolic (mm Hg) 2018-10-10 15:17:00 Inder rial [place] Diastolic (mm Hg) 2018-10-10 15:17:00 Mem o[facility] [place] Temperature Oral (F) 2018-10-10 15:17:00 98.2 F [facility] [place] Heart Rate 2018-10-10 15:17:00 50 /min [facility] [place] Respitory Rate 2018-10-10 15:17:00 [facility] [place] Systolic (mm Hg) 2018-10-10 04:27:00 Inder rial [place] Diastolic (mm Hg) 2018-10-10 04:27:00 Mem o[facility] [place] Temperature Oral (F) 2018-10-10 04:27:00 98.6 F [facility] [place] Heart Rate 2018-10-10 04:27:00 64 /min [facility] [place] Respitory Rate 2018-10-10 04:27:00 [facility] [place] Systolic (mm Hg) 2018-10-09 19:57:00 Inder rial [place] Diastolic (mm Hg) 2018-10-09 19:57:00 Mem o[facility] [place] Temperature Oral (F) 2018-10-09 19:57:00 98.6 F [facility] [place] Heart Rate 2018-10-09 19:57:00 58 /min [facility] [place] Respitory Rate 2018-10-09 19:57:00 [facility] [place] Systolic (mm Hg) 2018-10-09 03:42:00 Inder rial [place] Diastolic (mm Hg) 2018-10-09 03:42:00 Mem o[facility] [place] Temperature Oral (F) 2018-10-09 03:42:00 98.7 F [facility] [place] Heart Rate 2018-10-09 03:42:00 60 /min [facility] [place] Respitory Rate 2018-10-09 03:42:00 [facility] [place] Systolic (mm Hg) 2018-10-08 18:57:00 Inder rial [place] Diastolic (mm Hg) 2018-10-08 18:57:00 [facility] [place] Temperature Oral (F) 2018-10-08 18:57:00 97 F [facility] [place] Heart Rate 2018-10-08 18:57:00 69 /min [facility] [place] Respitory Rate 2018-10-08 18:57:00 [facility] [place] Systolic (mm Hg) 2018-10-08 13:47:00 Inder rial [place] Diastolic (mm Hg) 2018-10-08 13:47:00 [facility] [place] Temperature Oral (F) 2018-10-08 13:47:00 98.4 F [facility] [place] Heart Rate 2018-10-08 13:47:00 50 /min [facility] [place] Respitory Rate 2018-10-08 13:47:00 [facility] [place] Systolic (mm Hg) 2018-10-08 11:28:36 Inder rial [place] Diastolic (mm Hg) 2018-10-08 11:28:36 [facility] [place] Heart Rate 2018-10-08 11:28:36 50 /min [facility] [place] Systolic (mm Hg) 2018-10-08 05:22:00 Inder rial [place] Diastolic (mm Hg) 2018-10-08 05:22:00 [facility] [place] Temperature Oral (F) 2018-10-08 05:22:00 98.2 F [facility] [place] Heart Rate 2018-10-08 05:22:00 62 /min [facility] [place] Respitory Rate 2018-10-08 05:22:00 [facility] [place] Systolic (mm Hg) 2018-10-07 19:00:00 Inder rial [place] Diastolic (mm Hg) 2018-10-07 19:00:00 Mem o[facility] [place] Temperature Oral (F) 2018-10-07 19:00:00 97 F [facility] [place] Heart Rate 2018-10-07 19:00:00 64 /min [facility] [place] Respitory Rate 2018-10-07 19:00:00 [facility] [place] Systolic (mm Hg) 2018-10-07 16:55:00 Inder rial [place] Diastolic (mm Hg) 2018-10-07 16:55:00 Mem [facility] [place] Temperature Oral (F) 2018-10-07 16:55:00 98.2 F [facility] [place] Heart Rate 2018-10-07 16:55:00 49 /min [facility] [place] Respitory Rate 2018-10-07 16:55:00 [facility] [place] Systolic (mm Hg) 2018-10-07 12:16:59 Inder rial [place] Diastolic (mm Hg) 2018-10-07 12:16:59 [facility] [place] Heart Rate 2018-10-07 12:16:59 49 /min [facility] [place] Systolic (mm Hg) 2018-10-07 03:55:00 Inder rial [place] Diastolic (mm Hg) 2018-10-07 03:55:00 [facility] [place] Temperature Oral (F) 2018-10-07 03:55:00 98.2 F [facility] [place] Heart Rate 2018-10-07 03:55:00 60 /min [facility] [place] Respitory Rate 2018-10-07 03:55:00 [facility] [place] Systolic (mm Hg) 2018-10-06 12:16:00 Inder rial [place] Diastolic (mm Hg) 2018-10-06 12:16:00 Mem [facility] [place] Temperature Oral (F) 2018-10-06 12:16:00 98.6 F [facility] [place] Heart Rate 2018-10-06 12:16:00 50 /min [facility] [place] Respitory Rate 2018-10-06 12:16:00 [facility] [place] Systolic (mm Hg) 2018-10-06 12:05:38 Inder rial [place] Diastolic (mm Hg) 2018-10-06 12:05:38 [facility] [place] Heart Rate 2018-10-06 12:05:38 50 /min [facility] [place] Systolic (mm Hg) 2018-10-06 04:06:00 Inder rial [place] Diastolic (mm Hg) 2018-10-06 04:06:00 Mem [facility] [place] Temperature Oral (F) 2018-10-06 04:06:00 98.4 F [facility] [place] Heart Rate 2018-10-06 04:06:00 62 /min [facility] [place] Respitory Rate 2018-10-06 04:06:00 [facility] [place] Systolic (mm Hg) 2018-10-05 05:22:00 Inder rial [place] Diastolic (mm Hg) 2018-10-05 05:22:00 [facility] [place] Temperature Oral (F) 2018-10-05 05:22:00 98.6 F [facility] [place] Heart Rate 2018-10-05 05:22:00 58 /min [facility] [place] Respitory Rate 2018-10-05 05:22:00 [facility] [place] Systolic (mm Hg) 2018-10-04 20:45:00 Inder rial [place] Diastolic (mm Hg) 2018-10-04 20:45:00 [facility] [place] Temperature Oral (F) 2018-10-04 20:45:00 98.6 F [facility] [place] Heart Rate 2018-10-04 20:45:00 53 /min [facility] [place] Respitory Rate 2018-10-04 20:45:00 [facility] [place] Systolic (mm Hg) 2018-10-04 13:31:47 Inder rial [place] Diastolic (mm Hg) 2018-10-04 13:31:47 [facility] [place] Heart Rate 2018-10-04 13:31:47 44 /min [facility] [place] Systolic (mm Hg) 2018-10-04 05:03:00 Inedr rial [place] Diastolic (mm Hg) 2018-10-04 05:03:00 [facility] [place] Temperature Oral (F) 2018-10-04 05:03:00 98.7 F [facility] [place] Heart Rate 2018-10-04 05:03:00 58 /min [facility] [place] Respitory Rate 2018-10-04 05:03:00 [facility] [place] Diastolic (mm Hg) 2018-10-03 19:43:00 [facility] [place] Temperature Oral (F) 2018-10-03 19:43:00 97 F [facility] [place] Heart Rate 2018-10-03 19:43:00 62 /min [facility] [place] Respitory Rate 2018-10-03 19:43:00 [facility] [place] Systolic (mm Hg) 2018-10-03 19:43:00 Inder rial [place] Systolic (mm Hg) 2018-10-03 12:54:02 Inder rial [place] Diastolic (mm Hg) 2018-10-03 12:54:02 [facility] [place] Heart Rate 2018-10-03 12:54:02 58 /min [facility] [place] Systolic (mm Hg) 2018-10-03 05:20:00 Inder rial [place] Diastolic (mm Hg) 2018-10-03 05:20:00 [facility] [place] Temperature Oral (F) 2018-10-03 05:20:00 98.6 F [facility] [place] Heart Rate 2018-10-03 05:20:00 50 /min [facility] [place] Respitory Rate 2018-10-03 05:20:00 [facility] [place] Systolic (mm Hg) 2018-10-02 20:13:00 Inder rial [place] Diastolic (mm Hg) 2018-10-02 20:13:00 [facility] [place] Temperature Oral (F) 2018-10-02 20:13:00 98.9 F [facility] [place] Heart Rate 2018-10-02 20:13:00 52 /min [facility] [place] Respitory Rate 2018-10-02 20:13:00 [facility] [place] Systolic (mm Hg) 2018-10-02 15:42:00 Inder rial [place] Diastolic (mm Hg) 2018-10-02 15:42:00 [facility] [place] Temperature Oral (F) 2018-10-02 15:42:00 98.6 F [facility] [place] Heart Rate 2018-10-02 15:42:00 53 /min [facility] [place] Respitory Rate 2018-10-02 15:42:00 [facility] [place] Systolic (mm Hg) 2018-10-02 13:39:16 Inder rial [place] Diastolic (mm Hg) 2018-10-02 13:39:16 [facility] [place] Heart Rate 2018-10-02 13:39:16 53 /min [facility] [place] Systolic (mm Hg) 2018-10-02 07:17:00 Inder rial [place] Diastolic (mm Hg) 2018-10-02 07:17:00 [facility] [place] Temperature Oral (F) 2018-10-02 07:17:00 98.2 F [facility] [place] Heart Rate 2018-10-02 07:17:00 58 /min [facility] [place] Respitory Rate 2018-10-02 07:17:00 [facility] [place] Systolic (mm Hg) 2018-10-02 00:57:00 Inder rial [place] Diastolic (mm Hg) 2018-10-02 00:57:00 [facility] [place] Temperature Oral (F) 2018-10-02 00:57:00 98.7 F [facility] [place] Respitory Rate 2018-10-02 00:57:00 [facility] [place] Heart Rate 2018-10-02 00:57:00 57 /min [facility] [place] Weight 2018-10-01 23:47:00 [facility] [place] Systolic (mm Hg) 2017-07-26 10:42:00 Inder rial [place] Diastolic (mm Hg) 2017-07-26 10:42:00 [facility] [place] Temperature Oral (F) 2017-07-26 10:42:00 97.8 F [facility] [place] Heart Rate 2017-07-26 10:42:00 69 /min [facility] [place] Respitory Rate 2017-07-26 10:42:00 [facility] [place] Systolic (mm Hg) 2017-07-26 05:12:00 Inder rial [place] Diastolic (mm Hg) 2017-07-26 05:12:00 [facility] [place] Temperature Oral (F) 2017-07-26 05:12:00 97.8 F [facility] [place] Heart Rate 2017-07-26 05:12:00 68 /min [facility] [place] Respitory Rate 2017-07-26 05:12:00 [facility] [place] Systolic (mm Hg) 2017-07-25 10:55:00 Inder rial [place] Diastolic (mm Hg) 2017-07-25 10:55:00 [facility] [place] Temperature Oral (F) 2017-07-25 10:55:00 98.4 F [facility] [place] Heart Rate 2017-07-25 10:55:00 86 /min [facility] [place] Respitory Rate 2017-07-25 10:55:00 [facility] [place] Systolic (mm Hg) 2017-07-25 04:51:00 Inder rial [place] Diastolic (mm Hg) 2017-07-25 04:51:00 [facility] [place] Temperature Oral (F) 2017-07-25 04:51:00 97.8 F [facility] Heart Rate 2017-07-25 04:51:00 67 /min [facility] Respitory Rate 2017-07-25 04:51:00 [facility] Systolic (mm Hg) 2017-07-24 21:09:00 [facility] [place] Diastolic (mm Hg) 2017-07-24 21:09:00 [facility] [place] Temperature Oral (F) 2017-07-24 21:09:00 99.1 F [facility] [place] Heart Rate 2017-07-24 21:09:00 81 /min [facility] Respitory Rate 2017-07-24 21:09:00 [facility] Systolic (mm Hg) 2017-07-24 15:25:00 [facility] [place] Diastolic (mm Hg) 2017-07-24 15:25:00 [facility] Temperature Oral (F) 2017-07-24 15:25:00 98.6 F [facility] Heart Rate 2017-07-24 15:25:00 95 /min [facility] Respitory Rate 2017-07-24 15:25:00 [facility] [place] Systolic (mm Hg) 2017-07-24 09:38:00 [facility] [place] Diastolic (mm Hg) 2017-07-24 09:38:00 [facility] [place] Temperature Oral (F) 2017-07-24 09:38:00 98 F [facility] Heart Rate 2017-07-24 09:38:00 82 /min [facility] Respitory Rate 2017-07-24 09:38:00 [facility] [place] Systolic (mm Hg) 2017-07-24 01:29:00 [facility] Diastolic (mm Hg) 2017-07-24 01:29:00 [facility] Temperature Oral (F) 2017-07-24 01:29:00 98 F [facility] Heart Rate 2017-07-24 01:29:00 75 /min [facility] Respitory Rate 2017-07-24 01:29:00 [facility] Systolic (mm Hg) 2017-07-23 10:35:00 [facility] Diastolic (mm Hg) 2017-07-23 10:35:00 [facility] Temperature Oral (F) 2017-07-23 10:35:00 99.8 F [facility] Heart Rate 2017-07-23 10:35:00 83 /min [facility] Respitory Rate 2017-07-23 10:35:00 [facility] [place] Systolic (mm Hg) 2017-07-22 18:11:00 [facility] Diastolic (mm Hg) 2017-07-22 18:11:00 [facility] Temperature Oral (F) 2017-07-22 18:11:00 98.2 F [facility] Heart Rate 2017-07-22 18:11:00 70 /min [facility] Respitory Rate 2017-07-22 18:11:00 [facility] [place] Systolic (mm Hg) 2017-07-22 10:50:00 [facility] Diastolic (mm Hg) 2017-07-22 10:50:00 [facility] [place] Temperature Oral (F) 2017-07-22 10:50:00 98 F [facility] Heart Rate 2017-07-22 10:50:00 62 /min [facility] Respitory Rate 2017-07-22 10:50:00 [facility] Systolic (mm Hg) 2017-07-21 18:56:00 [facility] [place] Diastolic (mm Hg) 2017-07-21 18:56:00 [facility] Temperature Oral (F) 2017-07-21 18:56:00 97.7 F [facility] Heart Rate 2017-07-21 18:56:00 67 /min [facility] Respitory Rate 2017-07-21 18:56:00 [facility] Systolic (mm Hg) 2017-07-21 10:51:00 [facility] [place] Diastolic (mm Hg) 2017-07-21 10:51:00 [facility] Temperature Oral (F) 2017-07-21 10:51:00 97.7 F [facility] Heart Rate 2017-07-21 10:51:00 74 /min [facility] Respitory Rate 2017-07-21 10:51:00 [facility] Systolic (mm Hg) 2017-07-20 20:03:00 [facility] [place] Diastolic (mm Hg) 2017-07-20 20:03:00 [facility] [place] Temperature Oral (F) 2017-07-20 20:03:00 98.6 F [facility] Heart Rate 2017-07-20 20:03:00 83 /min [facility] Respitory Rate 2017-07-20 20:03:00 [facility] Systolic (mm Hg) 2017-07-20 17:57:00 [facility] Diastolic (mm Hg) 2017-07-20 17:57:00 [facility] Temperature Oral (F) 2017-07-20 17:57:00 97.8 F [facility] Heart Rate 2017-07-20 17:57:00 82 /min [facility] Respitory Rate 2017-07-20 17:57:00 [facility] Systolic (mm Hg) 2017-07-20 05:53:00 [facility] [place] Diastolic (mm Hg) 2017-07-20 05:53:00 [facility] [place] Temperature Oral (F) 2017-07-20 05:53:00 97.3 F [facility] Heart Rate 2017-07-20 05:53:00 63 /min [facility] Respitory Rate 2017-07-20 05:53:00 [facility] Systolic (mm Hg) 2017-07-19 19:09:00 [facility] [place] Diastolic (mm Hg) 2017-07-19 19:09:00 [facility] [place] Temperature Oral (F) 2017-07-19 19:09:00 98.4 F [facility] Heart Rate 2017-07-19 19:09:00 88 /min [facility] Respitory Rate 2017-07-19 19:09:00 [facility] [place] Systolic (mm Hg) 2017-07-19 12:57:00 [facility] Diastolic (mm Hg) 2017-07-19 12:57:00 [facility] [place] Temperature Oral (F) 2017-07-19 12:57:00 98.7 F [facility] Heart Rate 2017-07-19 12:57:00 87 /min [facility] Respitory Rate 2017-07-19 12:57:00 [facility] [place] Systolic (mm Hg) 2017-07-19 05:19:00 [facility] [place] Diastolic (mm Hg) 2017-07-19 05:19:00 [facility] Temperature Oral (F) 2017-07-19 05:19:00 98.1 F [facility] Heart Rate 2017-07-19 05:19:00 73 /min [facility] Respitory Rate 2017-07-19 05:19:00 [facility] Systolic (mm Hg) 2017-07-18 19:56:00 [facility] Diastolic (mm Hg) 2017-07-18 19:56:00 [facility] [place] Temperature Oral (F) 2017-07-18 19:56:00 99.6 F [facility] Heart Rate 2017-07-18 19:56:00 78 /min [facility] Respitory Rate 2017-07-18 19:56:00 [facility] [place] Systolic (mm Hg) 2017-07-18 17:23:00 [facility] [place] Diastolic (mm Hg) 2017-07-18 17:23:00 [facility] [place] Temperature Oral (F) 2017-07-18 17:23:00 98.2 F [facility] Heart Rate 2017-07-18 17:23:00 88 /min [facility] Respitory Rate 2017-07-18 17:23:00 [facility] [place] Systolic (mm Hg) 2017-07-18 06:56:00 [facility] [place] Diastolic (mm Hg) 2017-07-18 06:56:00 [facility] Temperature Oral (F) 2017-07-18 06:56:00 98.7 F [facility] Heart Rate 2017-07-18 06:56:00 77 /min [facility] Respitory Rate 2017-07-18 06:56:00 [facility] [place] Systolic (mm Hg) 2017-07-17 19:07:00 [facility] Diastolic (mm Hg) 2017-07-17 19:07:00 [facility] Temperature Oral (F) 2017-07-17 19:07:00 98.4 F [facility] Heart Rate 2017-07-17 19:07:00 74 /min [facility] Respitory Rate 2017-07-17 19:07:00 [facility] [place] Systolic (mm Hg) 2017-07-17 05:03:00 [facility] [place] Diastolic (mm Hg) 2017-07-17 05:03:00 [facility] Temperature Oral (F) 2017-07-17 05:03:00 98.2 F [facility] Heart Rate 2017-07-17 05:03:00 66 /min [facility] Respitory Rate 2017-07-17 05:03:00 [facility] Systolic (mm Hg) 2017-07-16 19:13:00 [facility] Diastolic (mm Hg) 2017-07-16 19:13:00 [facility] [place] Temperature Oral (F) 2017-07-16 19:13:00 98.2 F [facility] Heart Rate 2017-07-16 19:13:00 78 /min [facility] Respitory Rate 2017-07-16 19:13:00 [facility] Systolic (mm Hg) 2017-07-16 14:01:00 [facility] [place] Diastolic (mm Hg) 2017-07-16 14:01:00 [facility] [place] Temperature Oral (F) 2017-07-16 14:01:00 98.7 F [facility] Heart Rate 2017-07-16 14:01:00 77 /min [facility] Respitory Rate 2017-07-16 14:01:00 [facility] Systolic (mm Hg) 2017-07-16 03:51:00 [facility] Diastolic (mm Hg) 2017-07-16 03:51:00 [facility] [place] Temperature Oral (F) 2017-07-16 03:51:00 98 F [facility] Heart Rate 2017-07-16 03:51:00 68 /min [facility] Respitory Rate 2017-07-16 03:51:00 [facility] Systolic (mm Hg) 2017-07-15 20:14:00 [facility] Diastolic (mm Hg) 2017-07-15 20:14:00 [facility] Temperature Oral (F) 2017-07-15 20:14:00 98.2 F [facility] Heart Rate 2017-07-15 20:14:00 85 /min [facility] Respitory Rate 2017-07-15 20:14:00 [facility] Systolic (mm Hg) 2017-07-15 10:42:00 [facility] Diastolic (mm Hg) 2017-07-15 10:42:00 [facility] [place] Temperature Oral (F) 2017-07-15 10:42:00 98.4 F [facility] [place] Heart Rate 2017-07-15 10:42:00 72 /min [facility] Respitory Rate 2017-07-15 10:42:00 [facility] [place] Systolic (mm Hg) 2017-07-15 04:08:00 [facility] Diastolic (mm Hg) 2017-07-15 04:08:00 [facility] Temperature Oral (F) 2017-07-15 04:08:00 98.6 F [facility] Heart Rate 2017-07-15 04:08:00 75 /min [facility] Respitory Rate 2017-07-15 04:08:00 [facility] [place] Systolic (mm Hg) 2017-07-14 19:32:00 [facility] [place] Diastolic (mm Hg) 2017-07-14 19:32:00 [facility] [place] Temperature Oral (F) 2017-07-14 19:32:00 98.6 F [facility] Heart Rate 2017-07-14 19:32:00 75 /min [facility] Respitory Rate 2017-07-14 19:32:00 [facility] [place] Systolic (mm Hg) 2017-07-14 12:46:00 [facility] Diastolic (mm Hg) 2017-07-14 12:46:00 [facility] Temperature Oral (F) 2017-07-14 12:46:00 97.8 F [facility] Heart Rate 2017-07-14 12:46:00 64 /min [facility] Respitory Rate 2017-07-14 12:46:00 [facility] [place] Systolic (mm Hg) 2017-07-14 04:14:00 [facility] Diastolic (mm Hg) 2017-07-14 04:14:00 [facility] [place] Temperature Oral (F) 2017-07-14 04:14:00 98.4 F [facility] Heart Rate 2017-07-14 04:14:00 81 /min [facility] Respitory Rate 2017-07-14 04:14:00 [facility] Systolic (mm Hg) 2017-07-13 20:54:00 [facility] Diastolic (mm Hg) 2017-07-13 20:54:00 [facility] [place] Temperature Oral (F) 2017-07-13 20:54:00 98.7 F [facility] Heart Rate 2017-07-13 20:54:00 73 /min [facility] Respitory Rate 2017-07-13 20:54:00 [facility] [place] Systolic (mm Hg) 2017-07-13 14:09:00 [facility] [place] Diastolic (mm Hg) 2017-07-13 14:09:00 [facility] Temperature Oral (F) 2017-07-13 14:09:00 98.2 F [facility] Heart Rate 2017-07-13 14:09:00 71 /min [facility] Respitory Rate 2017-07-13 14:09:00 [facility] [place] Systolic (mm Hg) 2017-07-13 04:08:00 [facility] Diastolic (mm Hg) 2017-07-13 04:08:00 [facility] [place] Temperature Oral (F) 2017-07-13 04:08:00 97.9 F [facility] Heart Rate 2017-07-13 04:08:00 79 /min [facility] Respitory Rate 2017-07-13 04:08:00 [facility] [place] Systolic (mm Hg) 2017-07-12 19:29:00 [facility] [place] Diastolic (mm Hg) 2017-07-12 19:29:00 [facility] Temperature Oral (F) 2017-07-12 19:29:00 98.9 F [facility] Heart Rate 2017-07-12 19:29:00 81 /min [facility] Respitory Rate 2017-07-12 19:29:00 [facility] Systolic (mm Hg) 2017-07-12 14:02:00 [facility] [place] Diastolic (mm Hg) 2017-07-12 14:02:00 [facility] [place] Temperature Oral (F) 2017-07-12 14:02:00 98 F [facility] Heart Rate 2017-07-12 14:02:00 60 /min [facility] Respitory Rate 2017-07-12 14:02:00 [facility] Systolic (mm Hg) 2017-07-12 03:57:00 [facility] [place] Diastolic (mm Hg) 2017-07-12 03:57:00 [facility] Temperature Oral (F) 2017-07-12 03:57:00 98.2 F [facility] Heart Rate 2017-07-12 03:57:00 79 /min [facility] Respitory Rate 2017-07-12 03:57:00 [facility] [place] Systolic (mm Hg) 2017-07-11 19:48:00 [facility] Diastolic (mm Hg) 2017-07-11 19:48:00 [facility] [place] Temperature Oral (F) 2017-07-11 19:48:00 98.9 F [facility] Heart Rate 2017-07-11 19:48:00 72 /min [facility] Respitory Rate 2017-07-11 19:48:00 [facility] [place] Systolic (mm Hg) 2017-07-11 15:18:00 [facility] Diastolic (mm Hg) 2017-07-11 15:18:00 [facility] [place] Temperature Oral (F) 2017-07-11 15:18:00 97.8 F [facility] Heart Rate 2017-07-11 15:18:00 76 /min [facility] Respitory Rate 2017-07-11 15:18:00 [facility] Systolic (mm Hg) 2017-07-10 23:55:00 [facility] Diastolic (mm Hg) 2017-07-10 23:55:00 [facility] [place] Temperature Oral (F) 2017-07-10 23:55:00 98.4 F [facility] Heart Rate 2017-07-10 23:55:00 83 /min [facility] Respitory Rate 2017-07-10 23:55:00 [facility] [place] Systolic (mm Hg) 2017-07-10 14:36:00 [facility] Diastolic (mm Hg) 2017-07-10 14:36:00 [facility] [place] Temperature Oral (F) 2017-07-10 14:36:00 98.4 F [facility] Heart Rate 2017-07-10 14:36:00 63 /min [facility] Respitory Rate 2017-07-10 14:36:00 [facility] [place] Systolic (mm Hg) 2017-07-10 05:24:00 [facility] [place] Diastolic (mm Hg) 2017-07-10 05:24:00 [facility] Temperature Oral (F) 2017-07-10 05:24:00 97.8 F [facility] Heart Rate 2017-07-10 05:24:00 74 /min [facility] Respitory Rate 2017-07-10 05:24:00 [facility] Systolic (mm Hg) 2017-07-09 19:44:00 [facility] [place] Diastolic (mm Hg) 2017-07-09 19:44:00 [facility] [place] Temperature Oral (F) 2017-07-09 19:44:00 100.2 F [facility] Heart Rate 2017-07-09 19:44:00 87 /min [facility] Respitory Rate 2017-07-09 19:44:00 [facility] [place] Systolic (mm Hg) 2017-07-09 12:32:00 [facility] Diastolic (mm Hg) 2017-07-09 12:32:00 [facility] Temperature Oral (F) 2017-07-09 12:32:00 98.4 F [facility] Heart Rate 2017-07-09 12:32:00 73 /min [facility] Respitory Rate 2017-07-09 12:32:00 [facility] Systolic (mm Hg) 2017-07-09 05:54:00 [facility] [place] Diastolic (mm Hg) 2017-07-09 05:54:00 [facility] [place] Temperature Oral (F) 2017-07-09 05:54:00 98.7 F [facility] Heart Rate 2017-07-09 05:54:00 66 /min [facility] Respitory Rate 2017-07-09 05:54:00 [facility] Systolic (mm Hg) 2017-07-08 19:00:00 [facility] Diastolic (mm Hg) 2017-07-08 19:00:00 [facility] [place] Temperature Oral (F) 2017-07-08 19:00:00 99.1 F [facility] Heart Rate 2017-07-08 19:00:00 85 /min [facility] Respitory Rate 2017-07-08 19:00:00 [facility] Systolic (mm Hg) 2017-07-08 16:07:00 [facility] Diastolic (mm Hg) 2017-07-08 16:07:00 [facility] [place] Temperature Oral (F) 2017-07-08 16:07:00 99.1 F [facility] Heart Rate 2017-07-08 16:07:00 68 /min [facility] Respitory Rate 2017-07-08 16:07:00 [facility] Weight 2017-07-08 13:58:00 [facility] [place] [place] Systolic (mm Hg) 2017-07-08 06:04:00 [facility] [place] Diastolic (mm Hg) 2017-07-08 06:04:00 [facility] [place] Temperature Oral (F) 2017-07-08 06:04:00 97.3 F [facility] Heart Rate 2017-07-08 06:04:00 77 /min [facility] Respitory Rate 2017-07-08 06:04:00 [facility] Systolic (mm Hg) 2017-07-07 19:42:00 [facility] [place] Diastolic (mm Hg) 2017-07-07 19:42:00 [facility] [place] Temperature Oral (F) 2017-07-07 19:42:00 99.1 F [facility] Heart Rate 2017-07-07 19:42:00 85 /min [facility] Respitory Rate 2017-07-07 19:42:00 [facility] [place] Systolic (mm Hg) 2017-07-07 10:39:00 [facility] Diastolic (mm Hg) 2017-07-07 10:39:00 [facility] Temperature Oral (F) 2017-07-07 10:39:00 98.4 F [facility] Heart Rate 2017-07-07 10:39:00 59 /min [facility] [place] Respitory Rate 2017-07-07 10:39:00 [facility] Systolic (mm Hg) 2017-07-07 01:02:00 [facility] [place] Diastolic (mm Hg) 2017-07-07 01:02:00 [facility] [place] Temperature Oral (F) 2017-07-07 01:02:00 100.7 F [facility] Heart Rate 2017-07-07 01:02:00 86 /min [facility] [place] Respitory Rate 2017-07-07 01:02:00 [facility] [place] Systolic (mm Hg) 2017-07-06 13:21:00 [facility] Diastolic (mm Hg) 2017-07-06 13:21:00 [facility] Temperature Oral (F) 2017-07-06 13:21:00 98.7 F [facility] [place] Heart Rate 2017-07-06 13:21:00 73 /min [facility] Respitory Rate 2017-07-06 13:21:00 [facility] [place] Systolic (mm Hg) 2017-07-06 05:07:00 [facility] [place] Diastolic (mm Hg) 2017-07-06 05:07:00 [facility] [place] Temperature Oral (F) 2017-07-06 05:07:00 98.6 F [facility] [place] [place] Heart Rate 2017-07-06 05:07:00 79 /min [facility] Respitory Rate 2017-07-06 05:07:00 [facility] [place] Systolic (mm Hg) 2017-07-05 18:49:00 [facility] Diastolic (mm Hg) 2017-07-05 18:49:00 [facility] Temperature Oral (F) 2017-07-05 18:49:00 98.4 F [facility] Heart Rate 2017-07-05 18:49:00 78 /min [facility] [place] Respitory Rate 2017-07-05 18:49:00 [facility] Systolic (mm Hg) 2017-07-05 16:26:00 [facility] [place] Diastolic (mm Hg) 2017-07-05 16:26:00 [facility] [place] Temperature Oral (F) 2017-07-05 16:26:00 98.6 F [facility] [place] Heart Rate 2017-07-05 16:26:00 69 /min [facility] Respitory Rate 2017-07-05 16:26:00 [facility] Systolic (mm Hg) 2017-07-05 06:18:00 [facility] Diastolic (mm Hg) 2017-07-05 06:18:00 [facility] [place] Temperature Oral (F) 2017-07-05 06:18:00 98.4 F [facility] Heart Rate 2017-07-05 06:18:00 72 /min [facility] Respitory Rate 2017-07-05 06:18:00 [facility] [place] Systolic (mm Hg) 2017-07-04 19:40:00 [facility] Diastolic (mm Hg) 2017-07-04 19:40:00 [facility] [place] Temperature Oral (F) 2017-07-04 19:40:00 98.4 F [facility] Heart Rate 2017-07-04 19:40:00 78 /min [facility] [place] Respitory Rate 2017-07-04 19:40:00 [facility] Systolic (mm Hg) 2017-07-04 17:31:00 [facility] Diastolic (mm Hg) 2017-07-04 17:31:00 [facility] [place] Temperature Oral (F) 2017-07-04 17:31:00 98 F [facility] Heart Rate 2017-07-04 17:31:00 71 /min [facility] Respitory Rate 2017-07-04 17:31:00 [facility] [place] Systolic (mm Hg) 2017-07-04 13:01:54 [facility] [place] Diastolic (mm Hg) 2017-07-04 13:01:54 [facility] [place] Heart Rate 2017-07-04 13:01:54 71 /min [facility] Systolic (mm Hg) 2017-07-04 05:14:00 [facility] [place] Diastolic (mm Hg) 2017-07-04 05:14:00 [facility] [place] Temperature Oral (F) 2017-07-04 05:14:00 98 F [facility] [place] [place] Heart Rate 2017-07-04 05:14:00 86 /min [facility] Respitory Rate 2017-07-04 05:14:00 [facility] [place] Systolic (mm Hg) 2017-07-04 00:52:00 [facility] Diastolic (mm Hg) 2017-07-04 00:52:00 [facility] [place] Systolic (mm Hg) 2017-07-03 23:48:00 [facility] [place] Diastolic (mm Hg) 2017-07-03 23:48:00 [facility] [place] Temperature Oral (F) 2017-07-03 23:48:00 98.6 F [facility] [place] Heart Rate 2017-07-03 23:48:00 83 /min [facility] [place] Respitory Rate 2017-07-03 23:48:00 [facility] [place] Temperature Oral (F) 2017-07-03 20:46:00 98.6 F [facility] [place] [place] Heart Rate 2017-07-03 20:46:00 83 /min [facility] Respitory Rate 2017-07-03 20:46:00 [facility] [place] Height 2017-07-03 20:25:00 [facility] [place] [place] Weight 2016-01-03 18:30:00 [facility] Height 2016-01-03 18:30:00 [facility] [place] Diastolic (mm Hg) 2016-01-03 18:30:00 [facility] Systolic (mm Hg) 2016-01-03 18:30:00 [facility] [place] Weight 2015-10-04 19:00:00 [facility] Height 2015-10-04 19:00:00 [facility] Diastolic (mm Hg) 2015-10-04 19:00:00 [facility] Systolic (mm Hg) 2015-10-04 19:00:00 [facility] [place] Weight 2015-07-07 19:15:00 [facility] [place] [place] Height 2015-07-07 19:15:00 [facility] Weight 2015-06-07 19:00:00 [facility] Height 2015-06-07 19:00:00 [facility] [place] Diastolic (mm Hg) 2015-06-07 19:00:00 [facility] Systolic (mm Hg) 2015-06-07 19:00:00 In[facility] tiffanie [place] Weight 2015-03-08 15:00:00 [facility] Height 2015-03-08 15:00:00 [facility] [place] Diastolic (mm Hg) 2015-03-08 15:00:00 [facility] Systolic (mm Hg) 2015-03-08 15:00:00 [facility] Weight 2015-01-04 22:30:00 [facility] [place] [place] Height 2015-01-04 22:30:00 [facility] [place] Diastolic (mm Hg) 2015-01-04 22:30:00 [facility] [place] Systolic (mm Hg) 2015-01-04 22:30:00 [facility] Weight 2014-12-24 21:30:00 [facility] Height 2014-12-24 21:30:00 [facility] [place] [place] Diastolic (mm Hg) 2014-12-24 21:30:00 [facility] [place] Systolic (mm Hg) 2014-12-24 21:30:00 [facility] Weight 2014-11-05 14:30:00 [facility] Height 2014-11-05 14:30:00 [facility] [place] [place] Diastolic (mm Hg) 2014-11-05 14:30:00 [facility] Systolic (mm Hg) 2014-11-05 14:30:00 [facility] t[facility] Weight 2014-11-05 13:30:00 [facility] Height 2014-11-05 13:30:00 [facility] Diastolic (mm Hg) 2014-11-05 13:30:00 [facility] [place] Systolic (mm Hg) 2014-11-05 13:30:00 Inedr hom[facility] [place] Weight 2014-03-23 16:15:00 [facility] [place] [place] Height 2014-03-23 16:15:00 [facility] [place] [place] Diastolic (mm Hg) 2014-03-23 16:15:00 [facility] [place] Systolic (mm Hg) 2014-03-23 16:15:00 [facility] t[facility] Weight 2014-02-04 19:30:00 [facility] [place] Height 2014-02-04 19:30:00 [facility] Diastolic (mm Hg) 2014-02-04 19:30:00 [facility] Systolic (mm Hg) 2014-02-04 19:30:00 [facility] [place] Weight 2013-12-04 14:15:00 [facility] Height 2013-12-04 14:15:00 [facility] [place] Diastolic (mm Hg) 2013-12-04 14:15:00 [facility] Systolic (mm Hg) 2013-12-04 14:15:00 [facility] [place] Procedures Procedure Date / Time Performed Performing Clinician Corbin lay mammogram 2007-04-03 20:53:01 Aleshia mcguire bone density 2005-02-13 19:44:42 Aleshia mcguire Plan of Care Planned Activity Planned Date Details Comments Source Future Scheduled 2019-12-[address] [facility] Test 00:00:00 (#1) [code = [facility] INFLUENZA VACCINE (#1)] Future Scheduled 2015-06-[address] [facility] 00:00:00 WELLNESS (YEAR [facility] or [facility] YE[facility] if no IPPE) [code = MEDICARE ANNUAL WELLNESS (YEAR 2 or FIRST YEAR if no IPPE)] Future Scheduled [address] [facility] 00:00:00 malignant neoplasm [facility] enter of breast (procedure) [code = 852321574] Future Scheduled [address] [facility] 00:00:00 malignant neoplasm [facility] enter of colon (procedure) [code = 692179133] Encounters Start End Encounter Admission Attending Care Care Encounter Source Date/Time Date/Time Type Type Clinicians Facility Department ID 2020-08-14 Outpatient [facility] [id number] [place] 03:01:03 [facility] 2021-01-11 2021-01-11 Outpatient [facility] [id number] [facility] 00:00:00 00:00:00 [id number] [facility] 2021-01-11 2021-01-11 Outpatient PRIV PRIV [id number] [id number] [facility] 00:00:00 00:00:00 [id number] [facility] 2018-10-01 2018-10-22 Outpatient [id number] 00:00:00 00:00:00 [id number] 2018-09-24 2018-09-22 Inpatient [facility] [id number] [facility] 16:43:00 13:56:00 2017-07-03 2017-07-26 Outpatient [id number] 00:00:00 00:00:00 [id number] 2016-05-17 2016-05-17 Rx Sonya Fraser, [id number] 51-d [facility] 17:37:00 17:37:00 clarificat r Gaurav GRANT [id number] ion [id number] Linda nn [id number] 2016-05-17 2016-05-17 Rx nullFlavo Bria, [id number] 51-d [facility] 17:37:00 17:37:00 clarificat r Gaurav GRANT [id number] ion [id number] Linda nn [id number] 2016-05-17 2016-05-17 Outpatient Bria Fraser, [id number] [facility] 11:37:00 11:37:00 Gaurav Nolasco MD alWork s 2016-05-03 2016-05-03 refill nullFlavo Bria, [id number] [id number] [facility] 15:31:00 15:31:00 request r Gaurav GRANT [id number] l [id number] Linda nn [id number] 2016-05-03 2016-05-03 refill nullFlavo Bria, [id number] 91-1 [facility] 15:31:00 15:31:00 request r Gaurav GRANT [id number] l [id number] Linda nn [id number] 2016-05-03 2016-05-03 refill nullFlavo Bria, [id number] 5b-1 [facility] 15:31:00 15:31:00 request r Gaurav GRANT [id number] l [id number] Linda nn [id number] 2016-05-03 2016-05-03 refill nullFlavo Bria, [id number] 5b-1 [facility] 15:31:00 15:31:00 request r Gaurav GRANT [id number] l [id number] Linda nn [id number] 2016-05-03 2016-05-03 Outpatient Bria Fraser, [id number] [facility] 09:31:00 09:31:00 Gaurav Nolasco MD alWork s 2016-03-20 2016-03-20 refill nullFlavo Bria, [id number] e9-0 [facility] 18:57:00 18:57:00 request..jessica Nolasco MD [id number] l z [id number] [facility] nn [id number] 6230-12-12 2016-03-20 refill nullFlavo Bria, [id number] ea-e [facility] 18:57:00 18:57:00 request..jessica Nolasco MD [id number] l z [id number] [facility] nn [id number] 2016-03-20 2016-03-20 refill nullFlavo Bria, [id number] 57-3 [facility] 18:57:00 18:57:00 request..jessica Nolasco MD [id number] l z [id number] [facility] nn [id number] 2088-12-12 2016-03-20 refill nullFlavo Bria, [id number] e9-0 [facility] 18:57:00 18:57:00 request..jessica Nolasco MD 8e8-2n01-w l z [id number] [place] nn [id number] 6131-12-12 2016-03-20 refill nullFlavo Bria, [id number] ea-e [facility] 18:57:00 18:57:00 request..jessica Nolasco MD [id number] l z [id number] Linda nn [id number] 2016-03-20 2016-03-20 refill nullFlavo Bria, 57e8d9 57-3 [facility] 18:57:00 18:57:00 request..k patti Nolasco MD n56-0126-0 l z [id number] Linda nn [id number] 8662-12-12 2016-03-20 Outpatient Bria Fraser, [id number] [facility] 12:57:00 12:57:00 Gaurav Nolasco MD alWork s 2016-03-09 2016-03-09 REFILL nullFlavo Bria, [id number] c6-2 [facility] 20:08:00 20:08:00 REQUEST patti Nolasco MD [id number]-b l [id number] Linda nn [id number] 2016-03-09 2016-03-09 REFILL nullFlavo Bria, fdcef4 53-b [facility] 20:08:00 20:08:00 REQUEST patti Nolasco MD 22b-46b8-a l [id number]-up63b4 Linda nn [id number] 2016-03-09 2016-03-09 REFILL nullFlavo Bria, [id number] e2-0 [facility] 20:08:00 20:08:00 REQUEST patti Nolasco MD 725-4a2c-9 l [id number]-[id number] [place] nn a15e6b 2016-03-09 2016-03-09 REFILL nullFlavo Bria, 7ac9bc f9-8 [facility] 20:08:00 20:08:00 REQUEST patti Nolasco MD 23e-4586-8 l [id number] Linda nn [id number] 2016-03-09 2016-03-09 REFILL nullFlavo Bria, 4688b4 c6-2 [facility] 20:08:00 20:08:00 REQUEST patti Nolasco MD 905-4225-b l 553-f723b7 Linda nn a5a2e9 2016-03-09 2016-03-09 REFILL nullFlavo Bria, fdcef4 53-b [facility] 20:08:00 20:08:00 REQUEST patti Nolasco MD 22b-46b8-a l 3l9-iq73p1 Linda nn v9y409 2016-03-09 2016-03-09 REFILL nullFlavo Bria, 7ac9bc f9-8 [facility] 20:08:00 20:08:00 REQUEST patti Nolasco MD 23e-4586-8 l ecc-713cf6 [facility] nn 3eb5de 2016-03-09 2016-03-09 REFILL nullFlavo Bria, c8fd11 e2-0 Memoria 20:08:00 20:08:00 REQUEST patti Nolasco MD 725-4a2c-9 l baf-ro223x Linda nn a15e6b 2016-03-09 2016-03-09 Outpatient Bria Fraser, [id number] eClinic 14:08:00 14:08:00 Gaurav Nolasco MD alWork s 2016-01-03 2016-01-03 3 Months nullFlavo Bria, 7534e 763-7 [facility] 19:30:00 19:30:00 (Reason: patti Nolasco MD 17a-4c29-a l Thyroid , ff8-64665f Her mcguire Cholestero 0z716f l ) 2016-01-03 2016-01-03 3 Months nullFlavo Bria, aa97c df8-f [facility] 19:30:00 19:30:00 (Reason: patti Nolasco MD fa1-4387-b l Thyroid , 11d-aa62c3 Her mcguire Cholestero 34ac8d l ) 2016-01-03 2016-01-03 3 Months nullFlavo Bria, 4449e 47e-a [facility] 19:30:00 19:30:00 (Reason: patti Nolasco MD 6c5-3262-k l Thyroid , cc5-960a28 Her mcguire Cholestero 4086da l ) 2016-01-03 2016-01-03 3 Months nullFlavo Bria, 3613e 86e-0 [facility] 19:30:00 19:30:00 (Reason: patti Nolasco MD k3e-1g2f-k l Thyroid , m87-96nr4x Her mcguire Cholestero e5a0db l ) 2016-01-03 2016-01-03 3 Months nullFlavo Bria, 7534e 763-7 [facility] 19:30:00 19:30:00 (Reason: patti Nolasco MD 17a-4c29-a l Thyroid , ff8-99548b Her mcguire Cholestero 3g873z l ) 2016-01-03 2016-01-03 3 Months nullFlavo Bria, aa97c df8-f Memoria 19:30:00 19:30:00 (Reason: patti Nolasco MD fa1-4387-b l Thyroid , 11d-aa62c3 Her mcguire Cholestero 34ac8d l ) 2016-01-03 2016-01-03 3 Months nullFlavo Bria, 3613e 86e-0 [facility]oria 19:30:00 19:30:00 (Reason: patti Nolasco MD t7e-2w4g-q l Thyroid , j25-49hf5x Her mcguire Cholestero e5a0db l ) 2016-01-03 2016-01-03 3 Months nullFlavo Bria, 4449e 47e-a [facility]oria 19:30:00 19:30:00 (Reason: patti Nolasco MD 6h6-8782-f l Thyroid , cc5-960a28 Her mcguire Cholestero 4086da l ) 2016-01-03 2016-01-03 3 Months nullFlavo Bria, 6a203 fa8-8 Memoria 18:30:00 18:30:00 (Reason: patti Nolasco MD 2ff-40df-9 l Thyroid , x65-y4679u Her mcguire Cholestero d76e66 l ) 2016-01-03 2016-01-03 3 Months nullFlavo Bria, 6a203 fa8-8 [facility] 18:30:00 18:30:00 (Reason: patti Nolasco MD 2ff-40df-9 l Thyroid , u23-u0367n Her mcguire Cholestero d76e66 l ) 2016-01-03 2016-01-03 Outpatient Bria Bria, [id number] eClinic 13:30:00 13:30:00 Gaurav Nolasco MD alWork s 2015-10-04 2015-10-04 3 Months nullFlavo Bria, e1015 332-3 [facility] 20:00:00 20:00:00 (Reason: patti Nolasco MD ea7-42b6-9 l HTn , ea6-q74845 Linda nn Thyroid 16c46e and cholestero l ) 2015-10-04 2015-10-04 3 Months nullFlavo Bria, df55e 51f-a [facility]oria 20:00:00 20:00:00 (Reason: patti Nolasco MD ec7-469b-b l HTn , y00-76cot8 Linda nn Thyroid 751865 and cholestero l ) 2015-10-04 2015-10-04 3 Months nullFlavo Bria, 8051e 85e-c [facility]oria 20:00:00 20:00:00 (Reason: patti Nolasco MD 321-4623-b l HTn , ce9-d8fb83 Linda nn Thyroid 3fffe9 and cholestero l ) 2015-10-04 2015-10-04 3 Months nullFlavo Bria, 6d134 17b-4 [facility]oria 20:00:00 20:00:00 (Reason: patti Nolasco MD 17a-498d-9 l HTn , 579-fddf90 Linda nn Thyroid 913460 and cholestero l ) 2015-10-04 2015-10-04 3 Months nullFlavo Bria, e1015 332-3 [facility] 20:00:00 20:00:00 (Reason: patti Nolasco MD ea7-42b6-9 l HTn , ea6-e72363 Linda nn Thyroid 16c46e and cholestero l ) 2015-10-04 2015-10-04 3 Months nullFlavo Bria, df55e 51f-a [facility]oria 20:00:00 20:00:00 (Reason: patti Nolasco MD ec7-469b-b l HTn , s10-23kul6 Linda nn Thyroid 163843 and cholestero l ) 2015-10-04 2015-10-04 3 Months nullFlavo Bria, 6d134 17b-4 [facility] 20:00:00 20:00:00 (Reason: patti Nolasco MD 17a-498d-9 l HTn , 579-fddf90 Linda nn Thyroid 109103 and cholestero l ) 2015-10-04 2015-10-04 3 Months nullFlavo Bria, 8051e 85e-c [facility]oria 20:00:00 20:00:00 (Reason: patti Nolasco MD 321-4623-b l HTn , ce9-d8fb83 Linda nn Thyroid 3fffe9 and cholestero l ) 2015-10-04 2015-10-04 3 Months nullFlavo Bria, 0f9d9 737-0 [facility]oria 19:00:00 19:00:00 (Reason: patti Nolasco MD 15b-4e5b-a l HTn , 1d5-h9htq2 Linda nn Thyroid e6fbd7 and cholestero l ) 2015-10-04 2015-10-04 3 Months nullFlavo Bria, 8487a 7f8-f [facility] 19:00:00 19:00:00 (Reason: patti Nolasco MD 08f-4508-a l HTn , 9w5-448f0s Linda nn Thyroid me3344 and cholestero l ) 2015-10-04 2015-10-04 3 Months nullFlavo Bria, 8487a 7f8-f [facility]oria 19:00:00 19:00:00 (Reason: patti Nolasco MD 08f-4508-a l HTn , 6e0-163q8k Linda nn Thyroid bj0110 and cholestero l ) 2015-10-04 2015-10-04 3 Months nullFlavo Bria, 0f9d9 737-0 [facility]oria 19:00:00 19:00:00 (Reason: patti Nolasco MD 15b-4e5b-a l HTn , 5i1-y3wxg1 Linda nn Thyroid e6fbd7 and cholestero l ) 2015-10-04 2015-10-04 Outpatient Bria Bria, [id number] eClinic 14:00:00 14:00:00 Gaurav Nolasco MD alWork s 2015-07-07 2015-07-07 4 Weeks nullFlavo Bria, 223005 b9-9 [facility] 20:15:00 20:15:00 (Reason: patti Nolasco MD 72e-43c7-a l Blood ec6-863623 Linda nn pressure ) 308fe3 2015-07-07 2015-07-07 4 Weeks nullFlavo Bria, 9cd3e3 bf-1 [facility] 20:15:00 20:15:00 (Reason: patti Nolasco MD 7fe-4df3-a l Blood 1i6-1771j6 Linda nn pressure ) 1y8840 2015-07-07 2015-07-07 4 Weeks nullFlavo Bria, 7b4f79 0f-e [facility]oria 20:15:00 20:15:00 (Reason: patti Nolasco MD q91-92kc-m l Blood 0ef-5640ff Linda nn pressure ) c708fa 2015-07-07 2015-07-07 4 Weeks nullFlavo Bria, 77x981 24-8 [facility] 20:15:00 20:15:00 (Reason: patti Nolasco MD 0bf-4152-8 l Blood 750-527136 Linda nn pressure ) 76b0b4 2015-07-07 2015-07-07 4 Weeks nullFlavo Bria, 734786 b9-9 Memoria 20:15:00 20:15:00 (Reason: patti Nolasco MD 72e-43c7-a l Blood ec6-419575 Linda nn pressure ) 308fe3 2015-07-07 2015-07-07 4 Weeks nullFlavo Bria, 9cd3e3 bf-1 [facility]oria 20:15:00 20:15:00 (Reason: patti Nolasco MD 7fe-4df3-a l Blood 0o7-4549k8 Linda nn pressure ) 5d1820 2015-07-07 2015-07-07 4 Weeks nullFlavo Bria, 57y260 24-8 [facility] 20:15:00 20:15:00 (Reason: patti Nolasco MD 0bf-4152-8 l Blood 750-329045 Linda nn pressure ) 76b0b4 2015-07-07 2015-07-07 4 Weeks nullFlavo Bria, 7b4f79 0f-e [facility] 20:15:00 20:15:00 (Reason: patti Nolasco MD m21-94ev-x l Blood 0ef-5640ff Linda nn pressure ) c708fa 2015-07-07 2015-07-07 4 Weeks nullFlavo Bria, 96b6b9 a9-5 [facility] 19:15:00 19:15:00 (Reason: patti Nolasco MD 69a-4ec5-9 l Blood 08f-9e64e2 Linda nn pressure ) 6be5de 2015-07-07 2015-07-07 4 Weeks nullFlavo Bria, 94i050 55-2 [facility] 19:15:00 19:15:00 (Reason: patti Nolasco MD 5cb-4adc-8 l Blood bab-p95161 Linda nn pressure ) ca8fd7 2015-07-07 2015-07-07 4 Weeks nullFlavo Bria, 9b9e1e a8-b Memoria 19:15:00 19:15:00 (Reason: patti Nolasco MD db5-426c-8 l Blood 772-5fc6dd Linda nn pressure ) 4cc51f 2015-07-07 2015-07-07 4 Weeks nullFlavo Bria, 72r907 55-2 [facility] 19:15:00 19:15:00 (Reason: patti Nolasco MD 5cb-4adc-8 l Blood bab-e75593 Linda nn pressure ) ca8fd7 2015-07-07 2015-07-07 4 Weeks nullFlavo Bria, 9b9e1e a8-b Memoria 19:15:00 19:15:00 (Reason: patti Nolasco MD db5-426c-8 l Blood 772-5fc6dd Linda nn pressure ) 4cc51f 2015-07-07 2015-07-07 4 Weeks nullFlavo Bria, 96b6b9 a9-5 [facility]oria 19:15:00 19:15:00 (Reason: patti Nolasco MD 69a-4ec5-9 l Blood 08f-9e64e2 Linda nn pressure ) 6be5de 2015-07-07 2015-07-07 Outpatient Bria Fraser, [id number] eClinic 14:15:00 14:15:00 Gaurav Nolasco MD alWork s 2015-06-07 2015-06-07 3m x nullFlavo Bria, 0c8261 bb-7 [facility] 20:00:00 20:00:00 thyroid r Gaurav GRANT 9o5-52np-5 l a26-1ko7z3 Linda nn 05b8dd 2015-06-07 2015-06-07 3m x nullFlavo Bria, hjm785 8b-5 [facility] 20:00:00 20:00:00 thyroid patti Nolasco MD 7m8-30or-9 l 3c3-5oto16 Linda nn c6a63d 2015-06-07 2015-06-07 3m x nullFlavo Bria, jm8595 1c-3 [facility] 20:00:00 20:00:00 thyroid patti Nolasco MD 4ab-40d3-8 l l7d-g61730 Linda nn cf7e1f 2015-06-07 2015-06-07 3m x nullFlavo Bria, 7c97be 85-8 [facility]oria 20:00:00 20:00:00 thyroid patti Nolasco MD 6cf-4b9f-b l bfd-5545d2 Linda nn 8cf8c1 2015-06-07 2015-06-07 3m x nullFlavo Bria, 9f8884 bb-7 [facility] 20:00:00 20:00:00 thyroid r Gaurav GRANT 6j7-75km-2 l v66-1ma2z3 Linda nn 05b8dd 2015-06-07 2015-06-07 3m x nullFlavo Bria, zkv157 8b-5 [facility]oria 20:00:00 20:00:00 thyroid r Gaurav GRANT 1c9-54st-4 l 1k9-4jhd15 Linda nn c6a63d 2015-06-07 2015-06-07 3m x nullFlavo Bria, 7c97be 85-8 Memoria 20:00:00 20:00:00 thyroid r Gaurav GRANT 6cf-4b9f-b l bfd-5545d2 Linda nn 8cf8c1 2015-06-07 2015-06-07 3m x nullFlavo Bria, ei3150 1c-3 Memoria 20:00:00 20:00:00 thyroid r Gaurav GRANT 4ab-40d3-8 l w1g-l56553 Lidna nn cf7e1f 2015-06-07 2015-06-07 3m x nullFlavo Bria, a64a79 ef-6 Memoria 19:00:00 19:00:00 thyroid r Gaurav GRANT dc9-4127-a l f62-04167j Linda nn 98z292 2015-06-07 2015-06-07 3m x nullFlavo Bria, 1215ed 22-f Memoria 19:00:00 19:00:00 thyroid r Gaurav GRANT 81c-48e9-a l 021-8f378z Linda nn bd4c6c 2015-06-07 2015-06-07 3m x nullFlavo Bria, b27ca9 b9-e [facility] 19:00:00 19:00:00 thyroid r Gaurav GRANT 04a-4689-8 l 5ff-a93b4b Linda nn 36bb32 2015-06-07 2015-06-07 3m x nullFlavo Bria, 5021b4 89-c [facility] 19:00:00 19:00:00 thyroid r Gaurav GRANT 940-489d-8 l ae8-8t915v Linda nn 84cf8c 2015-06-07 2015-06-07 3m x nullFlavo Bria, 1215ed 22-f [facility] 19:00:00 19:00:00 thyroid patti Nolasco MD 81c-48e9-a l 021-5h309y Linda nn bd4c6c 2015-06-07 2015-06-07 3m x nullFlavo Bria, b27ca9 b9-e Memoria 19:00:00 19:00:00 thyroid patti Nolasco MD 04a-4689-8 l 5ff-a93b4b Linda nn 36bb32 2015-06-07 2015-06-07 3m x nullFlavo Bria, 5021b4 89-c [facility] 19:00:00 19:00:00 thyroid patti Nolasco MD 940-489d-8 l ae8-7x640g Linda nn 84cf8c 2015-06-07 2015-06-07 3m x nullFlavo Bria, a64a79 ef-6 [facility]oria 19:00:00 19:00:00 thyroid patti Nolasco MD dc9-4127-a l j83-18686u Linda nn 74n395 2015-06-07 2015-06-07 Outpatient Bria Fraser, 185 [id number] eClinic 14:00:00 14:00:00 Gaurav Nolasco MD alWork s 2015-03-08 2015-03-08 4 Months nullFlavo Bria, 98026 1d3-6 [facility] 15:00:00 15:00:00 (Reason: patti Nolasco MD 312-46ee-8 l Thyroid 088-54b0eb Linda nn and 4214fc hyperlipid emia ) 2015-03-08 2015-03-08 4 Months nullFlavo Bria, 6ce1f 091-a [facility]oria 15:00:00 15:00:00 (Reason: patti Nolasco MD m8q-7p8m-6 l Thyroid v98-u14b94 Linda nn and 545f6c hyperlipid emia ) 2015-03-08 2015-03-08 4 Months nullFlavo Bria, 11b79 b1d-5 [facility] 15:00:00 15:00:00 (Reason: patti Nolasco MD y42-2306-b l Thyroid 7b0-60p244 Linda nn and b18dc8 hyperlipid emia ) 2015-03-08 2015-03-08 4 Months nullFlavo Bria, 23216 441-6 [facility] 15:00:00 15:00:00 (Reason: patti Nolasco MD 44d-4e7e-8 l Thyroid e80-t4h60z Linda nn and 5a4c54 hyperlipid emia ) 2015-03-08 2015-03-08 4 Months nullFlavreji Fraser, 8e830 7f9-8 [facility] 15:00:00 15:00:00 (Reason: patti Nolasco MD af3-42c0-9 l Thyroid 20e-2db7b4 Linda nn and da5ea9 hyperlipid emia ) 2015-03-08 2015-03-08 4 Months nullFlavo Bria, 89502 1d3-6 [facility] 15:00:00 15:00:00 (Reason: patti Nolasco MD 312-46ee-8 l Thyroid 088-54b0eb Linda nn and 4214fc hyperlipid emia ) 2015-03-08 2015-03-08 4 Months nullFlavreji Fraser, 6ce1f 091-a [facility] 15:00:00 15:00:00 (Reason: patti Nolasco MD x8r-7q5c-0 l Thyroid p41-a53r43 Linda nn and 545f6c hyperlipid emia ) 2015-03-08 2015-03-08 4 Months nullFlavo Bria, 11b79 b1d-5 [facility]oria 15:00:00 15:00:00 (Reason: patti Nolasco MD o57-0228-u l Thyroid 1p1-60p538 Linda nn and b18dc8 hyperlipid emia ) 2015-03-08 2015-03-08 4 Months nullFlavo Bria, 8e830 7f9-8 [facility] 15:00:00 15:00:00 (Reason: patti Nolasco MD af3-42c0-9 l Thyroid 20e-2db7b4 Linda nn and da5ea9 hyperlipid emia ) 2015-03-08 2015-03-08 4 Months nullFlavo Bria, 83707 441-6 [facility] 15:00:00 15:00:00 (Reason: patti Nolasco MD 44d-4e7e-8 l Thyroid c79-n6t18y Linda nn and 5a4c54 hyperlipid emia ) 2015-03-08 2015-03-08 4 Months nullFlavo Bria, c6b99 a01-9 [facility]oria 14:00:00 14:00:00 (Reason: patti Nolasco MD k9o-6y27-d l Thyroid 8t0-tmga57 Linda nn and a02bba hyperlipid emia ) 2015-03-08 2015-03-08 4 Months nullFlavo Bria, e7e24 3e3-5 [facility]oria 14:00:00 14:00:00 (Reason: patti Nolasco MD p1t-2qs4-9 l Thyroid 5m6-8cm46o Linda nn and 4fx205 hyperlipid emia ) 2015-03-08 2015-03-08 4 Months [...] [facility]oria 14:00:00 14:00:00 (Reason: patti Nolasco MD r7l-1zo4-4 l Thyroid 5k3-7rs35k Linda nn and 1on555 hyperlipid emia ) 2015-03-08 2015-03-08 4 Months [...] [facility] 14:00:00 14:00:00 (Reason: r Gaurav GRANT n6f-7q56-l l Thyroid 2e5-leaw28 Linda nn and a02bba hyperlipid emia ) 2015-03-08 2015-03-08 Outpatient Bria Fraser, 174 [id number] eClinic 09:00:00 09:00:00 Gaurav Nolasco MD alWork s 2015-02-23 2015-02-23 Unknown nullFlavo Bria, 164d94 ba-5 [facility] 15:30:00 15:30:00 r Gaurav GRANT 409-4151-b l 4w3-2382wk Linda nn 8bdf0f 2015-02-23 2015-02-23 Unknown nullFlavo Bria, 94ff27 3b-7 [facility]oria 15:30:00 15:30:00 r Gaurav GRANT 8r3-0484-6 l 6h5-e30yzm Linda nn 6e10f7 2015-02-23 2015-02-23 Unknown nullFlavo Bria, 5fa15e b7-f [facility] 15:30:00 15:30:00 r Gaurav GRANT 030-47e4-a l 563-4bcd82 Linda nn a0ba4c 2015-02-23 2015-02-23 Unknown nullFlavo Bria, 7ff0e3 49-7 [facility] 15:30:00 15:30:00 r Gaurav GRANT 012-4353-a l 299-0beab9 Linda nn 4f8f58 2015-02-23 2015-02-23 Unknown nullFlavo Bria, 09071v b0-3 [facility]oria 15:30:00 15:30:00 r Gaurav GRANT s6z-3g8a-0 l 46e-08eefa Linda nn a0afed 2015-02-23 2015-02-23 Unknown nullFlavo Bria, bwy076 72-6 [facility] 15:30:00 15:30:00 r Gaurav GRANT bf7-4829-b l 964-ebe01f Linda nn yd5127 2015-02-23 2015-02-23 Unknown nullFlavo Bria, 754381 e2-a [facility]oria 15:30:00 15:30:00 r Gaurav GRANT erin-4ad7-9 l g2z-1204w2 Linda nn 633fea 2015-02-23 2015-02-23 Unknown nullFlavo Bria, 91-3 [facility]oria 15:30:00 15:30:00 r Gaurav GRANT t59-91n7-x l 607-f397f8 Linda nn d7c7f3 2015-02-23 2015-02-23 Unknown nullFlavo Bria, 9839bc df-e [facility]oria 15:30:00 15:30:00 r Gaurav GRANT k2g-3r96-z l cca-cdaab9 Linda nn e79ab5 2015-02-23 2015-02-23 Unknown nullFlavo Bria, 164d94 ba-5 [facility]oria 15:30:00 15:30:00 r Gaurav GRANT 409-4151-b l 4f6-6055tp Linda nn 8bdf0f 2015-02-23 2015-02-23 Unknown nullFlavo Bria, 94ff27 3b-7 [facility]oria 15:30:00 15:30:00 r Gaurav GRANT 6p3-4516-9 l 1z4-h15gkg Linda nn 6e10f7 2015-02-23 2015-02-23 Unknown nullFlavo Bria, 5fa15e b7-f [facility] 15:30:00 15:30:00 r Gaurav GRANT 030-47e4-a l 563-4bcd82 Linda nn a0ba4c 2015-02-23 2015-02-23 Unknown nullFlavo Bria, 82300d b0-3 [facility] 15:30:00 15:30:00 r Gaurav GRANT n7h-7q1v-6 l 46e-08eefa Linda nn a0afed 2015-02-23 2015-02-23 Unknown nullFlavo Bria, 7ff0e3 49-7 [facility] 15:30:00 15:30:00 r Gaurav GRANT 012-4353-a l 299-0beab9 Linda nn 4f8f58 2015-02-23 2015-02-23 Unknown nullFlavo Bria, obj344 72-6 [facility] 15:30:00 15:30:00 r Gaurav GRANT bf7-4829-b l 964-ebe01f Linda nn vn3555 2015-02-23 2015-02-23 Unknown nullFlavo Bria, 776358 e2-a [facility] 15:30:00 15:30:00 r Gaurav GRANT erin-4ad7-9 l z1c-2572x2 Linda nn 633fea 2015-02-23 2015-02-23 Unknown nullFlavo Bria, 9839bc df-e [facility] 15:30:00 15:30:00 r Gaurav GRANT n8r-4g85-c l cca-cdaab9 Linda nn e79ab5 2015-02-23 2015-02-23 Unknown nullFlavo Bria, 91-3 [facility] 15:30:00 15:30:00 r Gaurav GRANT r93-45v5-n l 607-f397f8 Linda nn d7c7f3 2015-02-23 2015-02-23 Unknown nullFlavo Bria, 92b3c6 cf-0 [facility] 14:30:00 14:30:00 r Gaurav GRANT 03f-49a6-8 l 736-a87786 Linda nn e14926 2015-02-23 2015-02-23 Unknown nullFlavo Bria, 521ce0 47-5 [facility] 14:30:00 14:30:00 r Gaurav GRANT g35-02gl-6 l 3cb-19d5e3 Linda nn g04715 2015-02-23 2015-02-23 Unknown nullFlavo Bria, jz5543 34-d [facility] 14:30:00 14:30:00 r Gaurav GRANT 807-495b-8 l 15d-4e29e0 Linda nn q40962 2015-02-23 2015-02-23 Unknown nullFlavo Bria, s5b921 34-b [facility] 14:30:00 14:30:00 r Gaurav GRANT 78f-4e55-9 l 200-cf4d92 Linda nn 1h674u 2015-02-23 2015-02-23 Unknown nullFlavo Bria, 521ce0 47-5 [facility] 14:30:00 14:30:00 r Gaurav GRANT g86-63xr-6 l 3cb-19d5e3 Linda nn g10497 2015-02-23 2015-02-23 Unknown nullFlavo Bria, kw2916 34-d [facility] 14:30:00 14:30:00 r Gaurav GRANT 807-495b-8 l 15d-4e29e0 Linda nn c99292 2015-02-23 2015-02-23 Unknown nullFlavo Bria, j1w960 34-b [facility] 14:30:00 14:30:00 r Gaurav GRANT 78f-4e55-9 l 200-cf4d92 Linda nn 7n137y 2015-02-23 2015-02-23 Unknown nullFlavo Bria, 92b3c6 cf-0 [facility] 14:30:00 14:30:00 r Gaurav GRANT 03f-49a6-8 l 736-u62014 Linda nn v62616 2015-02-23 2015-02-23 Outpatient Bria Fraser, 184 940 eClinic 09:30:00 09:30:00 Gaurav Nolasco MD alWork s 2015-02-11 2015-02-11 Unknown nullFlavo Bria, f69715 fa-9 [facility] 00:31:00 00:31:00 r Gaurav GRANT 120-4739-b l 129-0079af Linda nn 95fc4f 2015-02-11 2015-02-11 Unknown nullFlavo Bria, 06ea93 42-1 [facility] 00:31:00 00:31:00 r Gaurav GRANT 5x4-34w2-s l 88c-kv2387 Linda nn 6k187e 2015-02-11 2015-02-11 Unknown nullFlavo Bria, 79393h db-3 [facility] 00:31:00 00:31:00 r Gaurav GRANT 807-427a-b l f83-5tf4e7 Linda nn f2ad18 2015-02-11 2015-02-11 Unknown nullFlavo Bria, c5dedb a0-0 [facility] 00:31:00 00:31:00 r Gaurav GRANT 567-4215-9 l 540-8cf7b8 Linda nn d51ff2 2015-02-11 2015-02-11 Unknown nullFlavo Bria, 8f5f7c 38-1 [facility] 00:31:00 00:31:00 r Gaurav GRANT 356-4309-9 l bde-50fa6a Linda nn 3ac40f 2015-02-11 2015-02-11 Unknown nullFlavo Bria, 5eff1c c7-d Memoria 00:31:00 00:31:00 r Gaurav GRANT ce9-4034-9 l 337-8ad26c Linda nn t16515 2015-02-11 2015-02-11 Unknown nullFlavo Bria, 067a29 d0-8 [facility] 00:31:00 00:31:00 r Gaurav GRANT fe2-4cc6-a l 7df-49e35f Linda nn b2e5af 2015-02-11 2015-02-11 Unknown nullFlavo Bria, e33805 61-3 [facility] 00:31:00 00:31:00 r Gaurav GRANT ff0-4b55-8 l 554-31h209 Linda nn 6b82eb 2015-02-11 2015-02-11 Unknown nullFlavo Bria, 4a8adc a4-8 [facility]oria 00:31:00 00:31:00 r Gaurav GRANT 338-4ec9-a l 3s7-51fq26 Linda nn 2fcad7 2015-02-11 2015-02-11 Unknown nullFlavo Bria, 369bed b7-9 [facility] 00:31:00 00:31:00 r Gaurav GRANT t[place]-4194-9 l ec4-852ceb Linda nn u1232t 2015-02-11 2015-02-11 Unknown nullFlavo Bria, 315f29 2a-0 [facility] 00:31:00 00:31:00 r Gaurav GRANT cf9-4538-a l 79d-f5e2d1 Linda nn 5f9bb2 2015-02-11 2015-02-11 Unknown nullFlavo Bria, cb5db9 f8-3 [facility] 00:31:00 00:31:00 r Gaurav GRANT y0l-9qci-0 l 85b-6ecc81 Linda nn 377ea3 2015-02-11 2015-02-11 Unknown nullFlavo Bria, f574d9 b8-1 [facility] 00:31:00 00:31:00 r Gaurav GRANT 129-4d70-b l 2s6-c5385y Linda nn v07663 2015-02-11 2015-02-11 Unknown nullFlavo Bria, 55087n db-3 [facility] 00:31:00 00:31:00 r Gaurav GRANT 807-427a-b l s62-5sb2u7 Linda nn f2ad18 2015-02-11 2015-02-11 Unknown nullFlavo Bria, c5dedb a0-0 [facility] 00:31:00 00:31:00 r Gaurav GRANT 567-4215-9 l 540-8cf7b8 Linda nn d51ff2 2015-02-11 2015-02-11 Unknown nullFlavo Bria, a08848 fa-9 [facility] 00:31:00 00:31:00 r Gaurav GRANT 120-4739-b l 129-0079af Linda nn 95fc4f 2015-02-11 2015-02-11 Unknown nullFlavo Bria, 06ea93 42-1 [facility] 00:31:00 00:31:00 r Gaurav GRANT 0f6-61y1-b l 88c-tc4165 Linda nn 6q954e 2015-02-11 2015-02-11 Unknown nullFlavo Bria, 8f5f7c 38-1 [facility] 00:31:00 00:31:00 r Gaurav GRANT 356-4309-9 l bde-50fa6a Linda nn 3ac40f 2015-02-11 2015-02-11 Unknown nullFlavo Bria, 5eff1c c7-d [facility] 00:31:00 00:31:00 r Gaurav GRANT ce9-4034-9 l 337-8ad26c Linda nn a88533 2015-02-11 2015-02-11 Unknown nullFlavo Bria, 067a29 d0-8 [facility] 00:31:00 00:31:00 r Gaurav GRANT fe2-4cc6-a l 7df-49e35f Linda nn b2e5af 2015-02-11 2015-02-11 Unknown nullFlavo Bria, 4a8adc a4-8 [facility] 00:31:00 00:31:00 r Gaurav GRANT 338-4ec9-a l 4d6-01is93 Linda nn 2fcad7 2015-02-11 2015-02-11 Unknown nullFlavo Bria, f15580 61-3 [facility] 00:31:00 00:31:00 r Gaurav GRANT ff0-4b55-8 l 554-36u192 Linda nn 6b82eb 2015-02-11 2015-02-11 Unknown nullFlavo Bria, 369bed b7-9 [facility] 00:31:00 00:31:00 r Gaurav GRANT trenton-4194-9 l ec4-852ceb Linda nn j5154s 2015-02-11 2015-02-11 Unknown nullFlavo Bria, 315f29 2a-0 [facility] 00:31:00 00:31:00 r Gaurav GRANT cf9-4538-a l 79d-f5e2d1 Linda nn 5f9bb2 2015-02-11 2015-02-11 Unknown nullFlavo Bria, f574d9 b8-1 [facility] 00:31:00 00:31:00 r Gaurav GRANT 129-4d70-b l 2o6-j1623b Linda nn g98646 2015-02-11 2015-02-11 Unknown vicFlavo Bria, cb5db9 f8-3 [facility] 00:31:00 00:31:00 r Gaurav GRANT n3w-9xxu-3 l 85b-6ecc81 Linda nn 377ea3 2015-02-10 2015-02-10 Unknown nullFlavo Bria, 0562b1 c8-e [facility] 23:31:00 23:31:00 r Gaurav GRANT 40b-4ec5-a l 70b-9a7b6f Linda nn 348808 1019-11-04 2015-02-10 Unknown nullFlavo Bria, 19045z bc-0 [facility] 23:31:00 23:31:00 r Gaurav GRANT 094-45f1-b l eae-j4v774 Linda nn 55a4c7 2015-02-10 2015-02-10 Unknown nullFlavo Bria, e0b4ae 48-d [facility] 23:31:00 23:31:00 r Gaurav GRANT 832-4fe1-9 l 737-7c81c2 Linda nn n0034o 2015-02-10 2015-02-10 Unknown nullFlavo Bria, 17dd62 30-d [facility] 23:31:00 23:31:00 r Gaurav GRANT 029-48b9-8 l 028-m5n875 Linda nn 1c5acb 2015-02-10 2015-02-10 Unknown nullFlavo Bria, 99834f bc-0 [facility] 23:31:00 23:31:00 r Gaurav GRANT 094-45f1-b l eae-c5y555 Linda nn 55a4c7 2015-02-10 2015-02-10 Unknown nullFlavo Bria, e0b4ae 48-d [facility] 23:31:00 23:31:00 r Gaurav GRANT 832-4fe1-9 l 737-7c81c2 Linda nn g4158y 2015-02-10 2015-02-10 Unknown nullFlavo Bria, 17dd62 30-d [facility] 23:31:00 23:31:00 r Gaurav GRANT 029-48b9-8 l 028-f3c658 Linda nn 1c5acb 2015-02-10 2015-02-10 Unknown nullFlavo Bria, 0562b1 c8-e [facility] 23:31:00 23:31:00 r Gaurav GRANT 40b-4ec5-a l 70b-9a7b6f Linda nn 916785 5082-11-04 2015-02-10 Outpatient [facility], [facility] 18:31:00 18:31:00 Gaurav Nolasco MD alWork s 2015-02-08 2015-02-08 LAB ORDER nullFlavo Bria, 1db1 23ed-3 [facility] 22:08:00 22:08:00 r Gaurav GRANT 3y6-45v8-0 l 243-03k670 Linda nn 1c06e1 2015-02-08 2015-02-08 LAB ORDER nullFlavo Bria, 687e 76db-0 [facility] 22:08:00 22:08:00 r Gaurav GRANT 570-4722-9 l 92e-f7af1f Linda nn 1n767z 2015-02-08 2015-02-08 LAB ORDER nullFlavo Bria, ee47 8edc-f [facility] 22:08:00 22:08:00 r Gaurav GRANT s63-2900-2 l 163-e3c99e Linda nn o3b878 2015-02-08 2015-02-08 LAB ORDER nullFlavo Bria, c867 64e3-a [facility] 22:08:00 22:08:00 r Gaurav GRANT acc-4ef9-8 l ef3-673494 Linda nn a07f05 2015-02-08 2015-02-08 LAB ORDER Sonya Fraser, b46c 8cc0-1 [facility] 22:08:00 22:08:00 r Gaurav GRANT z23-5837-n l r5w-5t976e Linda nn 9adb24 2015-02-08 2015-02-08 LAB ORDER Sonya Fraser, 37c0 b205-b [facility] 22:08:00 22:08:00 r Gaurav GRANT w9y-9591-u l 6h6-9b8577 Linda nn 0eb1be 2015-02-08 2015-02-08 LAB ORDER Sonya Fraser, 4abd 18cb-e [facility] 22:08:00 22:08:00 r Gaurav GRANT ae7-492e-b l k82-m5i1g4 Linda nn aa65be 2015-02-08 2015-02-08 LAB ORDER Sonya Fraser, 55aa ca14-2 [facility] 22:08:00 22:08:00 r Gaurav GRANT 3f7-7g9o-f l 388-368271 Linda nn d0f3c3 2015-02-08 2015-02-08 LAB ORDER Sonya Fraser, f944 1280-3 [facility] 22:08:00 22:08:00 r Gaurav GRANT fc2-4369-b l cca-95545h Linda nn b6l489 2015-02-08 2015-02-08 LAB ORDER Sonya Fraser, e4ac 09e7-d [facility] 22:08:00 22:08:00 r Gaurav GRANT p45-75q1-q l 3x8-1e22ra Linda nn 865c08 2015-02-08 2015-02-08 LAB ORDER Sonya Fraser, 6458 bdc0-1 [facility] 22:08:00 22:08:00 r Gaurav GRANT 267-44a7-a l 606-k1835s Linda nn d6y575 2015-02-08 2015-02-08 LAB ORDER Sonya Fraser, c92a 374c-1 [facility] 22:08:00 22:08:00 r Gaurav GRANT 701-4e4d-9 l 615-3us932 Linda nn 3sm429 2015-02-08 2015-02-08 LAB ORDER Sonya Fraser, ff70 2acb-4 [facility] 22:08:00 22:08:00 r Gaurav GRANT 5cc-4428-a l j4p-l09i15 Linda nn 846af4 2015-02-08 2015-02-08 LAB ORDER Shadeo Bria, 06b5 1d01-8 [facility] 22:08:00 22:08:00 r Gaurav GRANT 235-4f59-8 l 9t0-86u485 Linda nn 69a5b7 2015-02-08 2015-02-08 LAB ORDER Sonya Fraser, 687e 76db-0 [facility] 22:08:00 22:08:00 r Gaurav GRANT 570-4722-9 l 92e-f7af1f Linda nn 1a197o 2015-02-08 2015-02-08 LAB ORDER Sonya Fraser, c867 64e3-a [facility] 22:08:00 22:08:00 r Gaurav GRANT acc-4ef9-8 l ef3-113312 Linda nn a07f05 2015-02-08 2015-02-08 LAB ORDER Sonya Fraser, b46c 8cc0-1 [facility] 22:08:00 22:08:00 r Gaurav GRANT g41-0823-r l r0g-3j380b Lnida nn 9adb24 2015-02-08 2015-02-08 LAB ORDER Sonya Fraser, 1db1 23ed-3 [facility] 22:08:00 22:08:00 r Gaurav GRANT 2s5-76s6-7 l 243-43w471 Linda nn 1c06e1 2015-02-08 2015-02-08 LAB ORDER Sonya Fraser ee47 8edc-f [facility] 22:08:00 22:08:00 r Gaurav GRANT z64-4398-6 l 163-e3c99e Linda nn k6r419 2015-02-08 2015-02-08 LAB ORDER Sonya Fraser, 37c0 b205-b [facility] 22:08:00 22:08:00 r Gaurav GRANT m2p-2026-n l 1t1-7c6457 Linda nn 0eb1be 2015-02-08 2015-02-08 LAB ORDER Sonya Fraser, 4abd 18cb-e [facility] 22:08:00 22:08:00 r Gaurav GRANT ae7-492e-b l f23-h3j7r8 Linda nn aa65be 2015-02-08 2015-02-08 LAB ORDER Sonya Fraser, 55aa ca14-2 [facility] 22:08:00 22:08:00 r Gaurav GRANT 1m6-1c6z-s l [id number] Linda nn d0f3c3 2015-02-08 2015-02-08 LAB ORDER Sonya Fraser e4ac 09e7-d [facility] 22:08:00 22:08:00 r Gaurav GRANT p24-74g4-o l 2d9-1j34eg Linda nn 865c08 2015-02-08 2015-02-08 LAB ORDER Sonya Fraser, f944 1280-3 [facility] 22:08:00 22:08:00 r Gaurav GRANT fc2-4369-b l cca-51359c Linda nn f2r198 2015-02-08 2015-02-08 LAB ORDER Sonya Fraser, 6458 bdc0-1 [facility] 22:08:00 22:08:00 r Gaurav GRANT 267-44a7-a l 606-k3537z Linda nn v9c042 2015-02-08 2015-02-08 LAB ORDER Sonya Fraser, c92a 374c-1 [facility] 22:08:00 22:08:00 r Gaurav GRANT 701-4e4d-9 l 615-8mh964 Linda nn 4qt972 2015-02-08 2015-02-08 LAB ORDER Sonya Fraser, 06b5 1d01-8 [facility] 22:08:00 22:08:00 r Gaurav GRANT 235-4f59-8 l 5p5-56u913 Linda nn 69a5b7 2015-02-08 2015-02-08 LAB ORDER Sonya Fraser, ff70 2acb-4 [facility] 22:08:00 22:08:00 r Gaurav GRANT 5cc-4428-a l i3y-j12d01 Linda nn 846af4 2015-02-08 2015-02-08 LAB ORDER nullFlavo Bria, 5b8a dfb7-e [facility] 21:08:00 21:08:00 r Gaurav GRANT 323-4c09-9 l 8j4-40fy19 Linda nn j4379d 2015-02-08 2015-02-08 LAB ORDER nullFlavo Bria, 90a4 754c-d [facility] 21:08:00 21:08:00 r Gaurav peguero-435f-a l ffb-9f3b23 Linda nn 4cd7d4 2015-02-08 2015-02-08 LAB ORDER nullFlavo Bria, 2fba 434e-4 [facility] 21:08:00 21:08:00 r Gaurav GRANT fec-42ec-a l 456-a931cd Linda nn 2a32ba 2015-02-08 2015-02-08 LAB ORDER nullFlavo Bria, f4e3 eb14-2 [facility] 21:08:00 21:08:00 r Guarav GRANT 05f-49ec-8 l 0u9-6o7385 Linda nn 968604 6805-11-02 2015-02-08 LAB ORDER nullFlavo Bria, 90a4 754c-d [facility] 21:08:00 21:08:00 r Gaurav peguero-435f-a l ffb-9f3b23 Linda nn 4cd7d4 2015-02-08 2015-02-08 LAB ORDER nullFlavo Bria, 2fba 434e-4 [facility] 21:08:00 21:08:00 r Gaurav GRANT fec-42ec-a l 456-a931cd Linda nn 2a32ba 2015-02-08 2015-02-08 LAB ORDER nullFlavo Bria, f4e3 eb14-2 [facility] 21:08:00 21:08:00 r Gaurav GRANT 05f-49ec-8 l 7w5-7x7096 Linda nn 837502 8347-11-02 2015-02-08 LAB ORDER nullFlavo Bria, 5b8a dfb7-e [facility] 21:08:00 21:08:00 r Gaurav GRANT 323-4c09-9 l 4a8-02jc24 Linda nn r3854z 2015-02-08 2015-02-08 Outpatient Bria Fraser, 183 481 [facility]inic 16:08:00 16:08:00 Gaurav Nolasco MD alWork s 2015-02-05 2015-02-05 Unknown nullFlavo Bria, 9u1328 e0-d [facility] 21:25:00 21:25:00 r Gaurav GRANT 4ea-4ecb-8 l eff-a2bdfa Linda nn 021ea2 2015-02-05 2015-02-05 Unknown nullFlavo Bria, 4498e5 16-c [facility] 21:25:00 21:25:00 r Gaurav GRANT 716-4445-a l 214-559db7 Linda nn 0c33c4 2015-02-05 2015-02-05 Unknown nullFlavo Bria, 7b59d7 bb-9 [facility] 21:25:00 21:25:00 r Gaurav GRANT 304-48ee-9 l bf0-250973 Linda nn nc0188 2015-02-05 2015-02-05 Unknown nullFlavo Bria, 514f25 47-a [facility] 21:25:00 21:25:00 r Gaurav GRANT 492-4ddc-8 l 3j1-o8n48m Linda nn 680ba2 2015-02-05 2015-02-05 Unknown nullFlavo Bria, 6918b5 03-2 [facility] 21:25:00 21:25:00 r Gaurav GRANT s46-7i10-k l 123-2bbdbc Linda nn cc47c3 2015-02-05 2015-02-05 Unknown nullFlavo Bria, 1d97e7 e9-8 [facility] 21:25:00 21:25:00 r Gaurav GRANT a2e-3k4v-g l 9e4-z76652 Linda nn 95feb8 2015-02-05 2015-02-05 Unknown nullFlavo Bria, 5271c5 0f-e [facility] 21:25:00 21:25:00 r Gaurav GRANT 360-4476-a l 1bc-c184fb Linda nn 667501 4017-10-30 2015-02-05 Unknown nullFlavo Bria, 451ee3 8f-3 [facility] 21:25:00 21:25:00 r Gaurav GRANT 49a-4a70-a l 4h1-8g0p09 Linda nn 1701b5 2015-02-05 2015-02-05 Unknown nullFlavo Bria, 52404v 19-6 [facility] 21:25:00 21:25:00 r Gaurav GRANT v7v-2k67-4 l 8j1-a3g5a5 Linda nn 1a005a 2015-02-05 2015-02-05 Unknown nullFlavo Bria, q6927s b3-5 [facility] 21:25:00 21:25:00 r Gaurav GRANT db7-49a6-8 l fe4-86w471 Linda nn 677819 2742-10-30 2015-02-05 Unknown nullFlavo Bria, u88538 37-9 [facility] 21:25:00 21:25:00 r Gaurav GRANT 9df-48f6-a l 601-5f27b5 Linda nn 1c85d3 2015-02-05 2015-02-05 Unknown nullFlavo Bria, 84f2f7 08-3 [facility] 21:25:00 21:25:00 r Gaurav GRANT 3s7-1652-8 l 652-5w632e Linda nn 38dfa8 2015-02-05 2015-02-05 Unknown nullFlavo Bria, eeb4a4 69-2 [facility] 21:25:00 21:25:00 r Gaurav GRANT y92-4gz9-b l 5bf-c41db0 Linda nn pu0747 2015-02-05 2015-02-05 Unknown nullFlavo Bria, e430b7 0b-d [facility] 21:25:00 21:25:00 r Gaurav GRANT ffc-425f-a l db7-88baa9 Linda nn a63f25 2015-02-05 2015-02-05 Unknown nullFlavo Bria, 4498e5 16-c [facility] 21:25:00 21:25:00 r Gaurav GRANT 716-4445-a l 214-559db7 Linda nn 0c33c4 2015-02-05 2015-02-05 Unknown nullFlavo Bria, 514f25 47-a [facility] 21:25:00 21:25:00 r Gaurav GRANT 492-4ddc-8 l 5u3-k4o29z Linda nn 680ba2 2015-02-05 2015-02-05 Unknown nullFlavo Bria, 6918b5 03-2 [facility] 21:25:00 21:25:00 r Gaurav GRANT z63-4c67-m l 123-2bbdbc Linda nn cc47c3 2015-02-05 2015-02-05 Unknown nullFlavo Bria, 6w3683 e0-d [facility] 21:25:00 21:25:00 r Gaurav GRANT 4ea-4ecb-8 l eff-a2bdfa Linda nn 021ea2 2015-02-05 2015-02-05 Unknown nullFlavo rBia, 7b59d7 bb-9 [facility] 21:25:00 21:25:00 r Gaurav GRANT 304-48ee-9 l bf0-598053 Linda nn rp1146 2015-02-05 2015-02-05 Unknown nullFlavo Bria, 1d97e7 e9-8 [facility] 21:25:00 21:25:00 r Gaurav GRANT y8p-6q2n-r l 5y0-a62335 Linda nn 95feb8 2015-02-05 2015-02-05 Unknown nullFlavo Bria, 5271c5 0f-e [facility] 21:25:00 21:25:00 r Gaurav GRANT 360-4476-a l 1bc-c184fb Linda nn 180768 5895-10-30 2015-02-05 Unknown nullFlavo Bria, 451ee3 8f-3 [facility] 21:25:00 21:25:00 r Gaurav GRANT 49a-4a70-a l 8u6-3i7c31 Linda nn 1701b5 2015-02-05 2015-02-05 Unknown nullFlavo Bria, q0843v b3-5 [facility] 21:25:00 21:25:00 r Gaurav GRANT db7-49a6-8 l fe4-28p706 Linda nn 826091 7094-10-30 2015-02-05 Unknown nullFlavo Bria, 84837n 19-6 [facility] 21:25:00 21:25:00 r Gaurav GRANT k1j-9f22-4 l 7m6-w6d6o4 Linda nn 3c517n 2015-02-05 2015-02-05 Unknown nullFlavo Bria, a03750 37-9 [facility] 21:25:00 21:25:00 r Gaurav GRANT 9df-48f6-a l 601-5f27b5 Linda nn 1c85d3 2015-02-05 2015-02-05 Unknown nullFlavo Bria, 84f2f7 08-3 [facility] 21:25:00 21:25:00 r Gaurav GRANT 1j8-9687-5 l 652-0u643x Linda nn 38dfa8 2015-02-05 2015-02-05 Unknown nullFlavo Bria, e430b7 0b-d [facility] 21:25:00 21:25:00 r Gaurav GRANT ffc-425f-a l db7-88baa9 Linda nn a63f25 2015-02-05 2015-02-05 Unknown nullFlavo Bria, eeb4a4 69-2 [facility] 21:25:00 21:25:00 r Gaurav GRANT b77-6sk6-i l 5bf-c41db0 Linda nn zt4572 2015-02-05 2015-02-05 Unknown nullFlavo Bria, 6x175b 82-5 [facility] 20:25:00 20:25:00 r Gaurav GRANT j0d-72sy-9 l dd4-2ef3cd Linda nn bfbca7 2015-02-05 2015-02-05 Unknown nullFlavo Bria, 0529a2 47-2 [facility] 20:25:00 20:25:00 r Gaurav GRANT 7p4-8846-1 l 3z4-h63278 Linda nn 2c5dfe 2015-02-05 2015-02-05 Unknown nullFlavo Bria, 0ue456 c4-c [facility] 20:25:00 20:25:00 r Gaurav GRANT aec-40ea-8 l 6q8-317lv7 Linda nn da64f3 2015-02-05 2015-02-05 Unknown nullFlavo Bria, lt8830 2a-a [facility] 20:25:00 20:25:00 r Gaurav GRANT g21-75i7-4 l 2fd-a086cd Linda nn 57ab13 2015-02-05 2015-02-05 Unknown nullFlavo Bria, 0529a2 47-2 [facility] 20:25:00 20:25:00 r Gaurav GRANT 1e5-7715-8 l 0u8-k66339 Linda nn 2c5dfe 2015-02-05 2015-02-05 Unknown nullFlavo Bria, 5ds092 c4-c [facility] 20:25:00 20:25:00 r Gaurav GRANT aec-40ea-8 l 0w2-764ip4 Linda nn da64f3 2015-02-05 2015-02-05 Unknown nullFlavo Bria, qg7881 2a-a [facility] 20:25:00 20:25:00 r Gaurav GRANT j07-75r2-1 l 2fd-a086cd Linda nn 57ab13 2015-02-05 2015-02-05 Unknown nullFlavo Bria, 2f403m 82-5 [facility] 20:25:00 20:25:00 r Gaurav GRANT f8f-37mr-1 l dd4-2ef3cd Linda nn bfbca7 2015-02-05 2015-02-05 Outpatient Bria Fraser, 183 293 [facility]inic 15:25:00 15:25:00 Gaurav Nolasco MD alWork s 2015-02-04 2015-02-04 lab order/ nullFlavo Bria, 8b6 4w107-u [facility] 20:23:00 20:23:00 x-ray r Gaurav GRANT 27d-4a6f-a l ae4-4ip560 Linda nn r71986 2015-02-04 2015-02-04 lab order/ nullFlavo Bria, 7e3 1q946-5 [facility] 20:23:00 20:23:00 x-ray r Gaurav GRANT 032-475b-9 l 6ce-mzo945 Linda nn 78154b 2015-02-04 2015-02-04 lab order/ nullFlavo Bria, b8b 6d49d-7 [facility] 20:23:00 20:23:00 x-ray r Gaurav GRANT fe6-4444-a l 678-699e08 Linda nn 6f35a0 2015-02-04 2015-02-04 lab order/ nullFlavo Bria, 582 a5744-1 [facility] 20:23:00 20:23:00 x-ray r Gaurav GRANT 0r4-87m8-f l fe9-7e21d7 Linda nn 4acf3f 2015-02-04 2015-02-04 lab order/ nullFlavo Bria, 6b9 0116d-d [facility] 20:23:00 20:23:00 x-ray r Gaurav GRANT 3bb-4d9a-a l 2bb-ff2b3f Linda nn l8211p 2015-02-04 2015-02-04 lab order/ nullFlavo Bria, ccd 1962c-6 [facility] 20:23:00 20:23:00 x-ray r Gaurav GRANT 3o4-657p-r l s39-q84zo3 Linda nn e147de 2015-02-04 2015-02-04 lab order/ nullFlavo Bria, 8a5 15g66-3 [facility] 20:23:00 20:23:00 x-ray r Gaurav GRANT m8y-4en0-0 l 4g0-12v57b Linda nn d994e5 2015-02-04 2015-02-04 lab order/ nullFlavo Bria, cec 65li3-p [facility] 20:23:00 20:23:00 x-ray r Gaurav GRANT q73-1232-7 l u58-56g323 Linda nn e873a3 2015-02-04 2015-02-04 lab order/ nullFlavo Bria, c7b e25gp-6 [facility] 20:23:00 20:23:00 x-ray r Gaurav GRANT q4m-8c93-1 l 25c-0038af Linda nn f2b3aa 2015-02-04 2015-02-04 lab order/ nullFlavo Bria, 1d1 jo83e-j [facility] 20:23:00 20:23:00 x-ray r Gaurav GRANT 298-4f0c-a l a8i-y02hw2 Linda nn 12s641 2015-02-04 2015-02-04 lab order/ nullFlavo Bria, 4f7 v9v28-5 [facility] 20:23:00 20:23:00 x-ray r Gaurav GRANT 4o3-93re-1 l v6u-x3a1e5 Linda nn 9e4e7b 2015-02-04 2015-02-04 lab order/ nullFlavo Bria, cd5 5865a-a [facility] 20:23:00 20:23:00 x-ray r Gaurav GRANT 3cb-4592-b l 2a7-v25qe3 Linda nn f1b6ad 2015-02-04 2015-02-04 lab order/ nullFlavo Bria, 65e acbcf-8 [facility] 20:23:00 20:23:00 x-ray r Gaurav GRANT 130-4219-a l m71-2a6f31 Linda nn 2f6d3b 2015-02-04 2015-02-04 lab order/ nullFlavo Bria, 50c 13306-1 [facility] 20:23:00 20:23:00 x-ray r Gaurav GRANT 842-4673-a l w2v-k06067 Linda nn 608ee9 2015-02-04 2015-02-04 lab order/ nullFlavo Bria, 7e3 8p452-6 [facility] 20:23:00 20:23:00 x-ray r Gaurav GRANT 032-475b-9 l 6ce-vuo957 Linda nn 18396g 2015-02-04 2015-02-04 lab order/ nullFlavo Bria, 582 r9232-0 [facility] 20:23:00 20:23:00 x-ray r Gaurav GRANT 5u6-94c6-d l fe9-7e21d7 Linda nn 4acf3f 2015-02-04 2015-02-04 lab order/ nullFlavo Bria, 6b9 0116d-d [facility] 20:23:00 20:23:00 x-ray r Gaurav GRANT 3bb-4d9a-a l 2bb-ff2b3f Linda nn w0570s 2015-02-04 2015-02-04 lab order/ nullFlavo Bria, 8b6 9r010-t [facility] 20:23:00 20:23:00 x-ray r Gaurav GRANT 27d-4a6f-a l ae4-8wg926 Linda nn o84374 2015-02-04 2015-02-04 lab order/ nullFlavo Bria, b8b 6l25c-7 [facility] 20:23:00 20:23:00 x-ray r Gaurav GRANT fe6-4444-a l 678-699e08 Linda nn 6f35a0 2015-02-04 2015-02-04 lab order/ nullFlavo Bria, ccd 1962c-6 [facility] 20:23:00 20:23:00 x-ray r Gaurav GRANT 6d8-588m-v l p41-i84gv0 Linda nn e147de 2015-02-04 2015-02-04 lab order/ nullFlavo Bria, 8a5 18g27-8 [facility] 20:23:00 20:23:00 x-ray r Gaurav GRANT m3w-7oi6-9 l 2b8-08w02f Linda nn d994e5 2015-02-04 2015-02-04 lab order/ nullFlavo Bria, cec 89qi4-v [facility] 20:23:00 20:23:00 x-ray r Gaurav GRANT m98-7534-0 l a43-06r230 Linda nn e873a3 2015-02-04 2015-02-04 lab order/ nullFlavo Bria, 1d1 nq95r-p [facility] 20:23:00 20:23:00 x-ray r Gaurav GRANT 298-4f0c-a l u6r-z39ao9 Linda nn 27u466 2015-02-04 2015-02-04 lab order/ nullFlavo Bria, c7b z24yb-2 [facility] 20:23:00 20:23:00 x-ray r Gaurav GRANT q4y-3s39-6 l 25c-0038af Linda nn f2b3aa 2015-02-04 2015-02-04 lab order/ nullFlavo Bria, 4f7 w0m90-7 [facility] 20:23:00 20:23:00 x-ray r Gaurav GRANT 8g0-67lh-5 l t4u-e1h6z6 Linda nn 9e4e7b 2015-02-04 2015-02-04 lab order/ nullFlavo Bria, cd5 5865a-a [facility] 20:23:00 20:23:00 x-ray r Gaurav GRANT 3cb-4592-b l 6g2-n35ok0 Linda nn f1b6ad 2015-02-04 2015-02-04 lab order/ nullFlavo Bria, 50c 58032-2 [facility] 20:23:00 20:23:00 x-ray r Gaurav GRANT 842-4673-a l p3j-y93116 Linda nn 608ee9 2015-02-04 2015-02-04 lab order/ nullFlavo Bria, 65e acbcf-8 [facility] 20:23:00 20:23:00 x-ray r Gaurav GRANT 130-4219-a l b80-4c3w40 Linda nn 2f6d3b 2015-02-04 2015-02-04 lab order/ nullFlavo Bria, 684 2r16x-g [facility] 19:23:00 19:23:00 x-ray r Gaurav GRANT 17e-47f4-b l z61-un953z Linda nn dd68e0 2015-02-04 2015-02-04 lab order/ nullFlavo Bria, a4d um70e-g [facility] 19:23:00 19:23:00 x-ray r Gaurav GRANT fcb-4f4b-b l 63f-0321d4 Linda nn cea2ee 2015-02-04 2015-02-04 lab order/ nullFlavo Bria, 6df d64od-5 [facility] 19:23:00 19:23:00 x-ray r Gaurav GRANT f46-6980-j l 4cd-5f1ca9 Linda nn 9fb13d 2015-02-04 2015-02-04 lab order/ nullFlavo Bria, 1a1 m88rm-7 [facility] 19:23:00 19:23:00 x-ray r Gaurav GRANT 885-40d4-9 l 335-e8f9fc Linda nn 6c2a05 2015-02-04 2015-02-04 lab order/ nullFlavo Bria, a4d xe36l-g [facility] 19:23:00 19:23:00 x-ray r Gaurav GRANT fcb-4f4b-b l 63f-0321d4 Linda nn cea2ee 2015-02-04 2015-02-04 lab order/ nullFlavo Bria, 6df j52xd-0 [facility] 19:23:00 19:23:00 x-ray r Gaurav GRANT b06-6904-t l 4cd-5f1ca9 Linda nn 9fb13d 2015-02-04 2015-02-04 lab order/ nullFlavo Bria, 1a1 m36ho-0 [facility] 19:23:00 19:23:00 x-ray r Gaurav GRANT 885-40d4-9 l 335-e8f9fc Linda nn 6c2a05 2015-02-04 2015-02-04 lab order/ nullFlavo Bria, 684 0l14x-l [facility] 19:23:00 19:23:00 x-ray r Gaurav GRANT 17e-47f4-b l t85-pr211a Linda nn dd68e0 2015-02-04 2015-02-04 Outpatient Bria Fraser, 183 158 [facility]inic 14:23:00 14:23:00 Gaurav Nolasco MD alWork s 2015-02-03 2015-02-03 release nullFlavo Bria, d89e26 e8-c [facility] 23:01:00 23:01:00 for sx r Gaurav GRANT db0-404e-9 l 8s2-v1p1c9 Linda nn i95161 2015-02-03 2015-02-03 release nullFlavo Bria, b13924 e5-f [facility] 23:01:00 23:01:00 for sx r Gaurav GRANT 4l0-3hvu-5 l be5-b1f5ab Linda nn 58r131 2015-02-03 2015-02-03 release vicFlavo Bria, 1a99fc be-0 [facility] 23:01:00 23:01:00 for sx r Gaurav GRANT 1a4-9763-8 l 04c-9288dc Linda nn 459209 3917-10-28 2015-02-03 release nullFlavo Bria, 0d8a0c 8d-f [facility] 23:01:00 23:01:00 for sx r Gaurav GRANT 5ef-48b5-b l 0m7-dm6063 Linda nn 76c69a 2015-02-03 2015-02-03 release nullFlavo Bria, 33bdd0 a2-b [facility] 23:01:00 23:01:00 for sx r Gaurav GRANT d3o-6p4d-0 l 1z6-3j4u65 Linda nn 7a80e7 2015-02-03 2015-02-03 release nullFlavo Bria, 9909d6 8e-3 [facility] 23:01:00 23:01:00 for sx r Gaurav GRANT 348-4290-8 l 318-60u794 Linda nn 09664f 2015-02-03 2015-02-03 release nullFlavo Bria, 606c1f 8e-a [facility] 23:01:00 23:01:00 for sx r Gaurav GRANT 682-4889-9 l 73d-6324ec Linda nn 154e93 2015-02-03 2015-02-03 release nullFlavo Bria, a87c6f 4f-6 [facility] 23:01:00 23:01:00 for sx r Gaurav GRANT v63-1073-q l q0k-6485x2 Linda nn 53f2aa 2015-02-03 2015-02-03 release nullFlavo Bria, d7deb8 d1-b [facility] 23:01:00 23:01:00 for sx r Gaurva GRANT 3l2-9048-t l 10d-0ca3ef Linda nn 98bcf8 2015-02-03 2015-02-03 release nullFlavo Bria, n73383 fd-9 [facility] 23:01:00 23:01:00 for sx r Gaurav GRANT 319-42e4-9 l ff9-35f09c Linda nn q1973u 2015-02-03 2015-02-03 release nullFlavo Bria, 7e40cd 04-3 [facility] 23:01:00 23:01:00 for sx r Gaurav GRANT 7af-4454-a l b2f-y75x89 Linda nn 230fee 2015-02-03 2015-02-03 release nullFlavo Bria, a93660 2c-f [facility] 23:01:00 23:01:00 for sx r Gaurav GRANT 156-4b63-b l 639-48f8a2 Linda nn 00a2ef 2015-02-03 2015-02-03 release nullFlavo Bria, t7293x 08-c [facility] 23:01:00 23:01:00 for sx r Gaurav GRANT 50a-4fa1-8 l d5c-b12110 Linda nn 4c6f5b 2015-02-03 2015-02-03 release nullFlavo Bria, 55k925 b9-6 [facility] 23:01:00 23:01:00 for sx r Gaurav GRANT 039-46c5-a l 0dd-ac6d1f Linda nn b032d7 2015-02-03 2015-02-03 release nullFlavo Bria, l36814 e5-f [facility] 23:01:00 23:01:00 for sx r Gaurav GRANT 9o5-1opo-5 l be5-b1f5ab Linda nn 53p950 2015-02-03 2015-02-03 release nullFlavo Bria, 0d8a0c 8d-f [facility] 23:01:00 23:01:00 for sx r Gaurav GRANT 5ef-48b5-b l 5q1-on7783 Linda nn 76c69a 2015-02-03 2015-02-03 release nullFlavo Bria, 33bdd0 a2-b [facility] 23:01:00 23:01:00 for sx r Gaurav GRANT l1m-0v6x-8 l 6z3-2v8s75 Linda nn 7a80e7 2015-02-03 2015-02-03 release nullFlavo Bria, d89e26 e8-c [facility] 23:01:00 23:01:00 for sx r Gaurav GRANT db0-404e-9 l 2i6-m6t4t5 Linda nn o06045 2015-02-03 2015-02-03 release nullFlavo Bria, 1a99fc be-0 [facility] 23:01:00 23:01:00 for sx r Gaurav GRANT 7i8-8983-6 l 04c-9288dc Linda nn 938326 9952-10-28 2015-02-03 release nullFlavo Bria, 9909d6 8e-3 [facility] 23:01:00 23:01:00 for sx r Gaurav GRANT 348-4290-8 l 318-88v512 Linda nn 21698p 2015-02-03 2015-02-03 release nullFlavo Bria, 606c1f 8e-a [facility] 23:01:00 23:01:00 for sx r Gaurav GRANT 682-4889-9 l 73d-6324ec Linda nn 154e93 2015-02-03 2015-02-03 release nullFlavo Bria, a87c6f 4f-6 [facility] 23:01:00 23:01:00 for sx r Gaurav GRANT v30-4273-s l l7i-4257i1 Linda nn 53f2aa 2015-02-03 2015-02-03 release nullFlavo Bria, d35496 fd-9 [facility] 23:01:00 23:01:00 for sx r Gaurav GRANT 319-42e4-9 l ff9-35f09c Linda nn m1877b 2015-02-03 2015-02-03 release nullFlavo Bria, d7deb8 d1-b [facility] 23:01:00 23:01:00 for sx r Gaurav GRANT 0i5-9525-f l 10d-0ca3ef Linda nn 98bcf8 2015-02-03 2015-02-03 release nullFlavo Bria, 7e40cd 04-3 [facility] 23:01:00 23:01:00 for sx r Gaurav GRANT 7af-4454-a l k9w-x40t36 Linda nn 230fee 2015-02-03 2015-02-03 release nullFlavo Bria, i69888 2c-f [facility] 23:01:00 23:01:00 for sx r Gaurav GRANT 156-4b63-b l 639-48f8a2 Linda nn 00a2ef 2015-02-03 2015-02-03 release nullFlavo Bria, 68f905 b9-6 [facility] 23:01:00 23:01:00 for sx r Gaurav GRANT 039-46c5-a l 0dd-ac6d1f Linda nn b032d7 2015-02-03 2015-02-03 release nullFlavo Bria, q0040a 08-c [facility] 23:01:00 23:01:00 for sx r Gaurav GRANT 50a-4fa1-8 l r5j-d81205 Linda nn 4c6f5b 2015-02-03 2015-02-03 release nullFlavo Bria, 89c50a d6-8 [facility] 22:01:00 22:01:00 for sx r Gaurav GRANT 448-4d8e-b l ac0-22ac5e Linda nn u1697e 2015-02-03 2015-02-03 release nullFlavo Bria, c0aa40 bb-2 [facility] 22:01:00 22:01:00 for sx r Gaurav GRANT ce0-4bd8-8 l 1z1-26xc64 Linda 674679 2914-10-28 2015-02-03 release nullFlavo Bria, 37afc2 cd-4 [facility] 22:01:00 22:01:00 for sx r Gaurav GRANT 5cb-4266-9 l z7a-w750zb Linda fefb36 2015-02-03 2015-02-03 release nullFlavo Bria, 7n8122 48-1 [facility] 22:01:00 22:01:00 for sx r Gaurav GRANT 13b-4715-8 l 253-88d249 Linda 299cc9 2015-02-03 2015-02-03 release nullFlavo Bria, c0aa40 bb-2 [facility] 22:01:00 22:01:00 for sx r Gaurav GRANT ce0-4bd8-8 l 9r0-97uy89 Linda 599659 4226-10-28 2015-02-03 release nullFlavo Bria, 37afc2 cd-4 [facility] 22:01:00 22:01:00 for sx r Gaurav GRANT 5cb-4266-9 l m0z-s913fz Linda fefb36 2015-02-03 2015-02-03 release nullFlavo Bria, 6e7690 48-1 [facility] 22:01:00 22:01:00 for sx r Gaurav GRANT 13b-4715-8 l 253-36s030 [facility] 299cc9 2015-02-03 2015-02-03 release nullFlavo Bria, 89c50a d6-8 [facility] 22:01:00 22:01:00 for sx r Gaurav GRANT 448-4d8e-b l ac0-22ac5e [facility] [id number] 2015-02-03 2015-02-03 Outpatient Bria Fraser, [id number] eClinic 17:01:00 17:01:00 Gaurav Nolasco MD alWork s 2015-01-04 2015-01-04 [facility] nullFlavo Bria, 33fd9 1c6-9 [facility] 22:30:00 22:30:00 r Gaurav GRANT c25-478z-s l fa9-f8a32b Linda nn 9f2e82 2015-01-04 2015-01-04 [facility] nullFlavo Bria, 54cef 5fe-7 [facility] 22:30:00 22:30:00 r Gaurav GRANT 740-43f9-a l 5c3-o7qnab Linda nn ef3bbf 2015-01-04 2015-01-04 [facility] nullFlavo Bria, f5807 17e-b [facility] 22:30:00 22:30:00 r Gaurav GRANT t6s-3zg1-3 l bbf-8b9ee8 Linda nn ebbbe3 2015-01-04 2015-01-04 [facility] nullFlavo Bria, f0ef7 206-7 [facility] 22:30:00 22:30:00 r Gaurav GRANT 269-46fd-9 l [id number] Linda nn [id number] 8804-09-28 2015-01-04 [facility] nullFlavo Bria, 92d98 208-9 [facility] 22:30:00 22:30:00 r Gaurav GRANT 904-4259-9 l q0p-49ywj3 Linda nn pwt443 2015-01-04 2015-01-04 [facility] nullFlavo Bria, bdbc1 e80-c [facility] 22:30:00 22:30:00 r Gaurav GRANT y07-92kw-7 l 3g5-23c59g Linda nn bc4f46 2015-01-04 2015-01-04 [facility] nullFlavo Bria, 22d92 5d4-e [facility] 22:30:00 22:30:00 r Gaurav GRANT l6p-159b-5 l 70e-4d3d30 Linda nn e0d082 2015-01-04 2015-01-04 [facility] nullFlavo Bria, 33fd9 1c6-9 [facility] 22:30:00 22:30:00 r Gaurav GRANT o89-627u-y l fa9-f8a32b Linda nn 9f2e82 2015-01-04 2015-01-04 [facility] nullFlavo Bria, f5807 17e-b [facility] 22:30:00 22:30:00 r Gaurav GRANT j4y-1ia6-7 l bbf-8b9ee8 Linda nn ebbbe3 2015-01-04 2015-01-04 [facility] nullFlavo Bria, 54cef 5fe-7 [facility] 22:30:00 22:30:00 r Gaurav GRANT 740-43f9-a l 3k0-c0mwep Linda nn ef3bbf 2015-01-04 2015-01-04 [facility] nullFlavo Bria, f0ef7 206-7 [facility] 22:30:00 22:30:00 r Gaurav GRANT 269-46fd-9 l 951-02208s Linda nn [id number] 9737-09-28 2015-01-04 [facility] nullFlavo Bria, 92d98 208-9 [facility] 22:30:00 22:30:00 r Gaurav GRANT 904-4259-9 l g6x-45hru7 Linda nn shg287 2015-01-04 2015-01-04 [facility] nullFlavo Bria, 22d92 5d4-e [facility] 22:30:00 22:30:00 r Gaurav GRANT z3f-338c-8 l 70e-4d3d30 [facility] nn f9o702 2015-01-04 2015-01-04 [facility] nullFlavo Bria, bdbc1 e80-c [facility] 22:30:00 22:30:00 r Gaurav GRANT v98-38kt-3 l 8l1-54u56i Linda nn bc4f46 2015-01-04 2015-01-04 [facility] nullFlavo Bria, 75b22 c7b-b [facility] 21:30:00 21:30:00 r Gaurav GRANT dc8-42e9-b l 0t6-97f285 Linda nn 795a90 2015-01-04 2015-01-04 [facility] nullFlavo Bria, cfe5b 85b-6 [facility] 21:30:00 21:30:00 r Gaurav GRANT 76a-4458-a l 67a-2ra889 Linda nn 4ff2e1 2015-01-04 2015-01-04 [facility] nullFlavo Bria, 45925 914-1 [facility] 21:30:00 21:30:00 r Gaurav GRANT z60-54vc-z l 098-6f1b8d Linda nn b9ab77 2015-01-04 2015-01-04 [facility] nullFlavo Bria, 67a75 2b6-d [facility] 21:30:00 21:30:00 r Gaurav GRANT bd6-4d9e-8 l 997-4522a5 Linda nn 02abea 2015-01-04 2015-01-04 [facility] nullFlavo Bria, cfe5b 85b-6 [facility] 21:30:00 21:30:00 r Gaurav GRANT 76a-4458-a l 67a-3ps181 Linda nn 4ff2e1 2015-01-04 2015-01-04 [facility] nullFlavo Bria, 66955 914-1 [facility] 21:30:00 21:30:00 r Gaurav GRANT j70-34fp-c l 098-6f1b8d Linda nn b9ab77 2015-01-04 2015-01-04 [facility] nullFlavo Bria, 67a75 2b6-d [facility] 21:30:00 21:30:00 r Gaurav GRANT bd6-4d9e-8 l 997-4522a5 Linda nn 02abea 2015-01-04 2015-01-04 [facility] nullFlavo Bria, 75b22 c7b-b [facility] 21:30:00 21:30:00 r Gaurav GRANT dc8-42e9-b l [id number] Linda nn 795a90 2015-01-04 2015-01-04 Outpatient Bria Fraser, 180 [id number] eClinic 16:30:00 16:30:00 Gaurav Nolasco MD alWork s 2014-12-24 2014-12-24 Needs nullFlavo rBia, 3bda8a 55-a [facility] 21:30:00 21:30:00 Sleeping r Gaurav GRANT 287-4650-8 l meds 82d-8bd2ed Linda nn [id number] 2014-12-24 2014-12-24 Needs nullFlavo Bria, 318b64 fc-4 [facility] 21:30:00 21:30:00 Sleeping r Gaurav GRANT 413-42f2-b l meds 475-i7i574 Linda nn [id number] 2014-12-24 2014-12-24 Needs nullFlavo Bria, 5a9405 81-b [facility] 21:30:00 21:30:00 Sleeping patti Nolasco MD t68-9ge4-e l meds s46-7g1b9j Linda nn 5749c9 2014-12-24 2014-12-24 Needs nullFlavo Bria, e797e0 17-7 [facility] 21:30:00 21:30:00 Sleeping patti Nolasco MD w60-4477-0 l meds afc-51dea0 Linda nn zvm033 2014-12-24 2014-12-24 Needs nullFlavo Bria, nny495 9d-e [facility] 21:30:00 21:30:00 Sleeping patti Nolasco MD aa1-4467-b l meds 280-cafcf0 Linda nn 3c1f57 2014-12-24 2014-12-24 Needs nullFlavo Bria, 779605 e7-4 [facility] 21:30:00 21:30:00 Sleeping patti Nolasco MD 965-4d93-a l meds 00c-a1af2c Linda nn e5b17d 2014-12-24 2014-12-24 Needs nullFlavo Bria, 792eeb 6f-b [facility] 21:30:00 21:30:00 Sleeping patti Nolasco MD 01f-468c-a l meds t35-107n0f Linda nn 34ae6c 2014-12-24 2014-12-24 Needs nullFlavo Bria, 3bda8a 55-a [facility] 21:30:00 21:30:00 Sleeping patti Nolasco MD 287-4650-8 l meds 82d-8bd2ed Linda nn [id number] 2014-12-24 2014-12-24 Needs nullFlavo Bria, 6e8595 81-b [facility] 21:30:00 21:30:00 Sleeping patti Nolasco MD n55-0bl3-q l meds o65-5i4v5y Linda nn 5749c9 2014-12-24 2014-12-24 Needs nullFlavo Bria, 318b64 fc-4 [facility] 21:30:00 21:30:00 Sleeping patti Nolasco MD 413-42f2-b l meds 475-w8j223 Linda nn n0m560 2014-12-24 2014-12-24 Needs nullFlavo Bria, e797e0 17-7 [facility] 21:30:00 21:30:00 Sleeping patti Nolasco MD y41-5170-1 l meds afc-51dea0 Linda nn irp608 2014-12-24 2014-12-24 Needs nullFlavo Bria, ovw353 9d-e [facility] 21:30:00 21:30:00 Sleeping patti Nolasco MD aa1-4467-b l meds 280-cafcf0 Linda nn 3c1f57 2014-12-24 2014-12-24 Needs nullFlavo Bria, 792eeb 6f-b [facility] 21:30:00 21:30:00 Sleeping patti Nolasco MD 01f-468c-a l meds o81-989b7g Linda nn 34ae6c 2014-12-24 2014-12-24 Needs nullFlavo Bria, 834502 e7-4 [facility] 21:30:00 21:30:00 Sleeping patti Nolasco MD 965-4d93-a l meds 00c-a1af2c [facility] nn e5b17d 2014-12-24 2014-12-24 Needs nullFlavo Bria, 22426p af-e [facility] 20:30:00 20:30:00 Sleeping patti Nolasco MD ffc-47c8-8 l meds 12c-b9d17f Linda nn aeee78 2014-12-24 2014-12-24 Needs nullFlavo Bria, e953f2 9f-8 [facility] 20:30:00 20:30:00 Sleeping patti Nolasco MD 6n2-04r9-3 l meds 9v1-7c8ca1 [facility] nn [id number] 2014-12-24 2014-12-24 Needs nullFlavo Bria, a90675 e5-b [facility] 20:30:00 20:30:00 Sleeping patti Nolasco MD aeb-4b2d-9 l meds 1e5-v605d9 [facility] nn 029b23 2014-12-24 2014-12-24 Needs nullFlavo Bria, c8c05a 94-7 [facility] 20:30:00 20:30:00 Sleeping patti Nolasco MD t98-3301-5 l meds 141-9f53b9 Linda nn l5830h 2014-12-24 2014-12-24 Needs nullNicko Bria, e953f2 9f-8 [facility] 20:30:00 20:30:00 Sleeping r Gaurav GRANT 4k5-49c0-6 l meds 8y5-8i3tp5 Linda nn 8r2800 2014-12-24 2014-12-24 Needs nullFlavo Bria, [id number] e5-b [facility] 20:30:00 20:30:00 Sleeping r Gaurav GRANT aeb-4b2d-9 l meds 7d9-b089n7 Linda nn 029b23 2014-12-24 2014-12-24 Needs nullFlavo Bria, c8c05a 94-7 [facility] 20:30:00 20:30:00 Sleeping r Gaurav GRANT y82-6272-6 l meds 141-9f53b9 Linda nn l7203s 2014-12-24 2014-12-24 Needs nullFlavo Bria, 42019e af-e [facility] 20:30:00 20:30:00 Sleeping r Gaurav GRANT ffc-47c8-8 l meds 12c-b9d17f Linda nn aeee78 2014-12-24 2014-12-24 Outpatient Bria Fraser, [id number] [facility] 15:30:00 15:30:00 Gaurav Nolasco MD alWork s 2014-11-17 2014-11-17 refill nullFlavo Bria, 5o3049 e4-4 [facility] 16:01:00 16:01:00 r Gaurav GRANT a5u-3v64-1 l 371-472abd Linda nn 783244 5074-08-11 2014-11-17 refill nullFlavo Bria, i7z198 dd-1 [facility] 16:01:00 16:01:00 r Gaurav GRANT fd8-457d-9 l dab-434a13 Linda nn 703f0b 2014-11-17 2014-11-17 refill nullFlavo Bria, 1bbbbc 0b-2 [facility] 16:01:00 16:01:00 r Gaurav GRANT galindo-47b8-9 l df1-6eede1 Linda nn 224eed 2014-11-17 2014-11-17 refill nullFlavo Bria, d8efe3 79-3 [facility] 16:01:00 16:01:00 r Gaurav GRANT 4r0-7e6i-r l 4n3-w14587 Linda nn 30985n 2014-11-17 2014-11-17 refill nullFlavo Bria, 25b265 be-9 [facility] 16:01:00 16:01:00 r Gaurav GRANT eec-4aa0-8 l 7dd-830028 Linda nn dc91dd 2014-11-17 2014-11-17 refill nullFlavo Bria, d81ea3 2a-1 [facility] 16:01:00 16:01:00 r Gaurav GRANT 7cc-496d-9 l 70b-4r5926 Linda nn 35fef5 2014-11-17 2014-11-17 refill nullNicko Bria, a5f7bb 76-e [facility] 16:01:00 16:01:00 r Gaurav GRANT 651-4d16-9 l cc6-c7b4f1 Linda nn c244a4 2014-11-17 2014-11-17 refill nullFlavo Bria, 79915m 68-7 [facility] 16:01:00 16:01:00 r Gaurav GRANT x2d-1bio-7 l v84-7uok1b Linda nn u9i095 2014-11-17 2014-11-17 refill nullNicko Bria, 2325ae c9-c [facility] 16:01:00 16:01:00 r Gaurav GRANT 36c-48fa-8 l ac5-q01772 Linda nn f2d2ad 2014-11-17 2014-11-17 refill nullFlavo Bria, 69a53f 9f-7 [facility] 16:01:00 16:01:00 r Gaurav GRANT 7l2-70h6-b l bee-5fefeb Linda nn e56e65 2014-11-17 2014-11-17 refill nullNicko Bria, d80673 df-f [facility] 16:01:00 16:01:00 r Gaurav GRANT 683-4fe4-9 l 784-6047ae Linda nn 4d9009 2014-11-17 2014-11-17 refill nullFlavo Bria, 1y8487 ed-3 [facility] 16:01:00 16:01:00 r Gaurav GRANT 4s2-9053-7 l v8a-81dn54 Linda nn 2b8fc7 2014-11-17 2014-11-17 refill nullFlavo Bria, z92015 b0-8 [facility] 16:01:00 16:01:00 r Gaurav GRANT 682-41f0-8 l s7u-yqse1w Linda nn 33dded 2014-11-17 2014-11-17 refill nullFlavo Bria, 3a47ad 53-2 [facility] 16:01:00 16:01:00 r Gaurav GRANT p3o-7347-d l l7g-ly77w1 Linda nn d7edfa 2014-11-17 2014-11-17 refill nullFlavo Bria, m6y029 dd-1 [facility] 16:01:00 16:01:00 r Gaurav GRANT fd8-457d-9 l dab-434a13 Linda nn 703f0b 2014-11-17 2014-11-17 refill nullFlavo Bria, d8efe3 79-3 [facility] 16:01:00 16:01:00 r Gaurav GRANT 1e1-9j7y-c l 3c1-f34670 Linda nn 73317x 2014-11-17 2014-11-17 refill nullFlavo Bria, 72u947 be-9 [facility] 16:01:00 16:01:00 r Gaurav GRANT eec-4aa0-8 l 7dd-016068 Linda nn dc91dd 2014-11-17 2014-11-17 refill nullFlavo Bria, 6h6602 e4-4 [facility] 16:01:00 16:01:00 r Gaurav GRANT q9v-5p45-0 l 371-472abd Linda nn 527264 6448-08-11 2014-11-17 refill nullFlavo Bria, 1bbbbc 0b-2 [facility] 16:01:00 16:01:00 r Gaurav GRANT galindo-47b8-9 l df1-6eede1 Linda nn 224eed 2014-11-17 2014-11-17 refill nullFlavo Bria, d81ea3 2a-1 [facility] 16:01:00 16:01:00 r Gaurav GRANT 7cc-496d-9 l 70b-3h0121 Linda nn 35fef5 2014-11-17 2014-11-17 refill nullFlavo Bria, a5f7bb 76-e [facility] 16:01:00 16:01:00 r Gaurav GRANT 651-4d16-9 l cc6-c7b4f1 Linda nn c244a4 2014-11-17 2014-11-17 refill nullFlavo Bria, 14484o 68-7 [facility] 16:01:00 16:01:00 r Gaurav GRANT h1j-5kxn-3 l t86-5gtr2o Linda nn b6l159 2014-11-17 2014-11-17 refill nullFlavo Bria, 69a53f 9f-7 [facility] 16:01:00 16:01:00 r Gaurav GRANT 5e6-54t3-x l bee-5fefeb Linda nn e56e65 2014-11-17 2014-11-17 refill nullFlavo Bria, 2325ae c9-c [facility] 16:01:00 16:01:00 r Gaurav GRANT 36c-48fa-8 l ac5-a73266 Linda nn f2d2ad 2014-11-17 2014-11-17 refill nullFlavo Bria, s92192 df-f [facility] 16:01:00 16:01:00 r Gaurav GRANT 683-4fe4-9 l 784-6047ae Linda nn 5m7781 2014-11-17 2014-11-17 refill nullFlavo Bria, 8s9898 ed-3 [facility] 16:01:00 16:01:00 r Gaurav GRANT 6d4-7613-3 l m5h-93nv39 Linda nn 2b8fc7 2014-11-17 2014-11-17 refill nullFlavo Bria, 3a47ad 53-2 [facility] 16:01:00 16:01:00 r Gaurav GRANT b3l-1359-w l r6p-zh63t3 Linda nn d7edfa 2014-11-17 2014-11-17 refill nullFlavo Bria, l17111 b0-8 [facility] 16:01:00 16:01:00 r Gaurav GRANT 682-41f0-8 l c2o-ivwk5k Linda nn 33dded 2014-11-17 2014-11-17 refill nullFlavo Bria, dca4eb 9d-f [facility] 15:01:00 15:01:00 r Gaurav GRANT k13-77gp-r l fea-51b2ad Linda nn 8h181p 2014-11-17 2014-11-17 refill nullFlavo Bria, b73d8d b9-9 [facility] 15:01:00 15:01:00 r Gaurav GRANT aff-4a63-8 l 93a-cbe3a7 Linda nn d2a2b8 2014-11-17 2014-11-17 refill nullFlavo Bria, d745a8 42-6 [facility] 15:01:00 15:01:00 r Gaurav GRANT z0l-7483-p l fcc-9e63b8 Linda nn 0f06f9 2014-11-17 2014-11-17 refill nullFlavo Bria, 169e83 fa-1 [facility] 15:01:00 15:01:00 r Gaurav GRANT 1af-42b8-b l 783-01ea95 [facility] nn 9d9f5a 2014-11-17 2014-11-17 refill nullFlavo Bria, d5x231 02-c [facility] 15:01:00 15:01:00 r Gaurav GRANT 57e-441e-a l l54-t502y4 [facility] nn f09a14 2014-11-17 2014-11-17 refill nullFlavo Bria, 07047p 61-6 [facility] 15:01:00 15:01:00 r Gaurav GRANT 5cc-458f-b l fb5-fb76a1 [facility] nn 4a704i 2014-11-17 2014-11-17 refill nullFlavo Bria, b73d8d b9-9 [facility] 15:01:00 15:01:00 r Gaurav GRANT aff-4a63-8 l 93a-cbe3a7 Linda nn d2a2b8 2014-11-17 2014-11-17 refill nullFlavo Bria, dca4eb 9d-f [facility] 15:01:00 15:01:00 r Gaurav GRANT e23-56mr-p l fea-51b2ad Linda nn 3h345v 2014-11-17 2014-11-17 refill nullFlavo Bria, 169e83 fa-1 [facility] 15:01:00 15:01:00 r Gaurav GRANT 1af-42b8-b l 783-01ea95 Linda nn 9d9f5a 2014-11-17 2014-11-17 refill nullFlavreji Fraser, q5f644 02-c [facility] 15:01:00 15:01:00 r Gaurav GRANT 57e-441e-a l v71-p370o7 Linda nn f09a14 2014-11-17 2014-11-17 refill nullFlavo Bria, 35856d 61-6 [facility] 15:01:00 15:01:00 r Gaurav GRANT 5cc-458f-b l fb5-fb76a1 Linda nn 6q437e 2014-11-17 2014-11-17 refill nullFlavo Bria, d745a8 42-6 [facility] 15:01:00 15:01:00 r Gaurav GRANT w5l-5790-v l fcc-9e63b8 Linda nn 0f06f9 2014-11-17 2014-11-17 Outpatient Bria Fraser, [id number] e[facility]inic 10:01:00 10:01:00 Gaurav Nolasco MD alWork s 2014-11-05 2014-11-05 4 Months nullFlavo Bria, e4aa3 177-b [facility] 14:30:00 14:30:00 (Reason: r Gaurav GRANT d65-9b97-3 l Thyroid dc2-6cf4a9 Linda nn and 03d96a Triglyceri anupama ) 2014-11-05 2014-11-05 4 Months nullFlavo Bria, be23a 0e2-b [facility] 14:30:00 14:30:00 (Reason: r Gaurav GRANT 8u2-236o-0 l Thyroid 073-380af9 Linda nn and b087e4 Triglyceri anupama ) 2014-11-05 2014-11-05 4 Months nullFlavo Bria, 91a5d 25f-2 [facility] 14:30:00 14:30:00 (Reason: r Gaurav GRANT c11-8k3b-7 l Thyroid arnol-9vt836 Linda nn and 58630o Triglyceri anupama ) 2014-11-05 2014-11-05 4 Months nullFlavreji Fraser, aa958 998-f [facility] 14:30:00 14:30:00 (Reason: patti Nolasco MD 414-4492-a l Thyroid m97-89258x Linda nn and 6jg102 Triglyceri anupama ) 2014-11-05 2014-11-05 4 Months nullFlavreji Fraser, 20a70 fb2-d [facility] 14:30:00 14:30:00 (Reason: patti Nolasco MD 35f-4504-b l Thyroid cac-c36e98 Linda nn and 700913 Triglyceri anupama ) 2014-11-05 2014-11-05 4 Months nullFlavo Bria, 226da feb-4 [facility] 14:30:00 14:30:00 (Reason: patti Nolasco MD 2m2-7126-v l Thyroid g3o-eyj26l Linda nn and 4c64ed Triglyceri anupama ) 2014-11-05 2014-11-05 4 Months nullFlavreji Fraser, 1625b 686-9 [facility] 14:30:00 14:30:00 (Reason: patti Nolasco MD d6i-0i7m-x l Thyroid ff8-u79830 Linda nn and 5d5842 Triglyceri anupama ) 2014-11-05 2014-11-05 4 Months nullFlavreji Fraser, ec187 be3-f [facility] 14:30:00 14:30:00 (Reason: patti Nolasco MD 0p3-28rr-r l Thyroid 47c-08395w Linda nn and f59637 Triglyceri anupama ) 2014-11-05 2014-11-05 4 Months nullFlavreji Fraser, e4aa3 177-b [facility] 14:30:00 14:30:00 (Reason: patti Nolasco MD p08-1h41-8 l Thyroid dc2-6cf4a9 Linda nn and 03d96a Triglyceri anupama ) 2014-11-05 2014-11-05 4 Months nullFlavreji Fraser, be23a 0e2-b [facility] 14:30:00 14:30:00 (Reason: patti Nolasco MD 6u4-478l-6 l Thyroid 073-380af9 Linda nn and b087e4 Triglyceri anupama ) 2014-11-05 2014-11-05 4 Months nullFlavo Bria, aa958 998-f [facility] 14:30:00 14:30:00 (Reason: patti Nolasco MD 414-4492-a l Thyroid w80-53964r Linda nn and 7hv744 Triglyceri anupama ) 2014-11-05 2014-11-05 4 Months nullFlavo Bria, 91a5d 25f-2 [facility] 14:30:00 14:30:00 (Reason: patti Nolasco MD k14-4r4g-2 l Thyroid arnol-4lk609 Linda nn and 46523k Triglyceri anupama ) 2014-11-05 2014-11-05 4 Months nullFlavo Bria, 20a70 fb2-d [facility] 14:30:00 14:30:00 (Reason: patti Nolasco MD 35f-4504-b l Thyroid cac-c36e98 Linda nn and 588157 Triglyceri anupama ) 2014-11-05 2014-11-05 4 Months nullFlavo Bria, 226da feb-4 [facility] 14:30:00 14:30:00 (Reason: patti Nolasco MD 0u9-8424-z l Thyroid h5d-bnr15d Linda nn and 4c64ed Triglyceri anupama ) 2014-11-05 2014-11-05 4 Months nullFlavreji Fraser, ec187 be3-f [facility] 14:30:00 14:30:00 (Reason: patti Nolasco MD 5a7-09fa-d l Thyroid 47c-54909r Linda nn and e46311 Triglyceri anupama ) 2014-11-05 2014-11-05 4 Months nullFlavo Bria, 1625b 686-9 [facility] 14:30:00 14:30:00 (Reason: patti Nolasco MD x9w-1z8g-t l Thyroid ff8-t61927 Linda nn and 3d7870 Triglyceri anupama ) 2014-11-05 2014-11-05 4 Months nullFlavo Bria, 658f2 829-5 [facility] 13:30:00 13:30:00 (Reason: patti Nolasco MD 08b-498a-b l Thyroid cbd-0ff2de Linda nn and 481e69 Triglyceri anupama ) 2014-11-05 2014-11-05 4 Months nullFlavo Bria, 85820 8aa-0 [facility] 13:30:00 13:30:00 (Reason: patti Nolasco MD 175-4190-9 l Thyroid x9m-pv52e3 Linda nn and a8c7a7 Triglyceri anupama ) 2014-11-05 2014-11-05 4 Months nullFlavo Bria, f6cd5 58b-7 [facility] 13:30:00 13:30:00 (Reason: patti Nolasco MD 31c-41fd-b l Thyroid 74e-1e3e37 Linda nn and c49bf5 Triglyceri anupama ) 2014-11-05 2014-11-05 4 Months nullFlavo Bria, 33e19 2a0-c [facility] 13:30:00 13:30:00 (Reason: patti Nolasco MD 826-473b-9 l Thyroid 8j0-6zco8m Linda nn and 6e5c44 Triglyceri anupama ) 2014-11-05 2014-11-05 4 Months nullFlavo Bria, 896c4 c93-9 [facility] 13:30:00 13:30:00 (Reason: patti Nolasco MD 6af-4b8b-9 l Thyroid 915-bf8abc Linda nn and 23285m Triglyceri anupama ) 2014-11-05 2014-11-05 4 Months nullFlavo Bria, 8a0de ca5-4 [facility] 13:30:00 13:30:00 (Reason: patti Nolasco MD 4r8-68ic-i l Thyroid q8m-w1mgn1 Linda nn and aaf21a Triglyceri anupama ) 2014-11-05 2014-11-05 4 Months nullFlavo Bria, 41888 8aa-0 [facility] 13:30:00 13:30:00 (Reason: patti Nolasco MD 175-4190-9 l Thyroid i3l-sk09h5 Linda nn and a8c7a7 Triglyceri anupama ) 2014-11-05 2014-11-05 4 Months nullFlavo Bria, 658f2 829-5 [facility] 13:30:00 13:30:00 (Reason: patti Nolasco MD 08b-498a-b l Thyroid cbd-0ff2de Linda nn and 481e69 Triglyceri anupama ) 2014-11-05 2014-11-05 4 Months nullFlavo Bria, 33e19 2a0-c [facility] 13:30:00 13:30:00 (Reason: patti Nolasco MD 826-473b-9 l Thyroid 0b6-0uul1m Linda nn and 6e5c44 Triglyceri anupama ) 2014-11-05 2014-11-05 4 Months nullFlavo Bria, 896c4 c93-9 [facility] 13:30:00 13:30:00 (Reason: patti Nolasco MD 6af-4b8b-9 l Thyroid 915-bf8abc Linda nn and 21734z Triglyceri anupama ) 2014-11-05 2014-11-05 4 Months nullFlavo Bria, 8a0de ca5-4 [facility] 13:30:00 13:30:00 (Reason: patti Nolasco MD 1e8-24mq-x l Thyroid a8l-w8zqf0 Linda nn and aaf21a Triglyceri anupama ) 2014-11-05 2014-11-05 4 Months nullFlavo Bria, f6cd5 58b-7 [facility] 13:30:00 13:30:00 (Reason: patti Nolasco MD 31c-41fd-b l Thyroid 74e-1e3e37 Linda nn and c49bf5 Triglyceri anupama ) 2014-11-05 2014-11-05 Outpatient [facility]ria Fraser, [id number] [facility]inic 08:30:00 08:30:00 Gaurav Beavers s 2014-11-05 2014-11-05 Outpatient Bria Fraser, [id number] eClinic 08:30:00 08:30:00 Gaurav Beavers s 2014-07-06 2014-07-06 2 Weeks nullFlavo Bria, 46a97c b1-2 [facility] 15:15:00 15:15:00 (Reason: patti Nolasco MD m2e-1383-u l Bronchitis j7z-2ljb9s [facility] ) 76e3fa 2014-07-06 2014-07-06 2 Weeks nullFlavo Bria, 78b94e 5d-3 [facility] 15:15:00 15:15:00 (Reason: patti Nolasco MD z1m-1211-4 l Bronchitis 3ac-9m095m [facility] ) 39198o 2014-07-06 2014-07-06 2 Weeks nullFlavo Bria, v20797 3e-c [facility] 15:15:00 15:15:00 (Reason: patti Nolasco MD fb3-433f-a l Bronchitis 33f-e27aca [facility] ) kj708l 2014-07-06 2014-07-06 2 Weeks nullFlavo Brai, 6e8cf6 25-9 [facility] 15:15:00 15:15:00 (Reason: patti Nolasco MD 1d8-71b7-j l Bronchitis 9h8-5495hm [facility] ) 3o0603 2014-07-06 2014-07-06 2 Weeks nullFlavo Bria, 6il812 9b-6 [facility] 15:15:00 15:15:00 (Reason: patti Nolasco MD 865-4ac3-8 l Bronchitis s1u-3m0792 [facility] ) c1ca66 2014-07-06 2014-07-06 2 Weeks nullFlavo Bria, 2845f6 21-2 [facility] 15:15:00 15:15:00 (Reason: patti Nolasco MD 4y1-229z-5 l Bronchitis aa7-nii901 [facility] ) a28dcd 2014-07-06 2014-07-06 2 Weeks nullFlavo Bria, 02e0a9 48-2 [facility] 15:15:00 15:15:00 (Reason: patti Nolasco MD dca-4966-9 l Bronchitis 02e-28b9ef [facility] ) d50a77 2014-07-06 2014-07-06 2 Weeks nullFlavo Bria, 53dcba 0c-0 [facility] 15:15:00 15:15:00 (Reason: patti Nolasco MD 42f-4e35-b l Bronchitis 7o9-od61yw [facility] ) f301c7 2014-07-06 2014-07-06 2 Weeks nullFlavo Bria, 07a74f e4-1 [facility] 15:15:00 15:15:00 (Reason: patti Nolasco MD 839-4154-a l Bronchitis fa0-h8c805 [facility] ) aa72e5 2014-07-06 2014-07-06 2 Weeks nullFlavo Bria, 124a2f 06-e [facility] 15:15:00 15:15:00 (Reason: patti Nolasco MD 3h5-8999-w l [facility]chitis 8l3-876ve8 [facility] ) 9zu842 2014-07-06 2014-07-06 2 Weeks nullFlavo Bria, c895af 6a-c [facility] 15:15:00 15:15:00 (Reason: patti Nolasco MD 6e6-6gcq-3 l Bronchitis 1eb-592e06 [facility] ) hfv976 2014-07-06 2014-07-06 2 Weeks nullFlavo Bria, 26a2f1 38-b [facility] 15:15:00 15:15:00 (Reason: patti Nolasco MD x33-0j93-0 l Bronchitis 9r7-39q1on [facility] ) e622f5 2014-07-06 2014-07-06 2 Weeks nullFlavo Bria, b151cc 0c-d [facility] 15:15:00 15:15:00 (Reason: patti Nolasco MD 7df-4131-9 l Bronchitis b17-8696e8 [facility] ) 29g121 2014-07-06 2014-07-06 2 Weeks nullFlavo Bria, e9c59c 64-2 [facility] 15:15:00 15:15:00 (Reason: patti Nolasco MD 87f-485b-8 l Bronchitis 37c-0c78de [facility] ) 469505 6105-03-30 2014-07-06 2 Weeks nullFlavo Bria, 78b94e 5d-3 [facility] 15:15:00 15:15:00 (Reason: patti Nolasco MD f7u-7968-9 l Bronchitis 3ac-7g680l [facility] ) 07383m 2014-07-06 2014-07-06 2 Weeks nullFlavo Bria, 6e8cf6 25-9 [facility] 15:15:00 15:15:00 (Reason: patti Nolasco MD 0z0-21k4-c l Bronchitis 5k6-3689qn [facility] ) 6b8812 2014-07-06 2014-07-06 2 Weeks nullFlavo Bria, 7qw706 9b-6 [facility] 15:15:00 15:15:00 (Reason: patti Nolasco MD 865-4ac3-8 l Bronchitis y2z-1z1134 [facility] ) c1ca66 2014-07-06 2014-07-06 2 Weeks nullFlavo Bria, 46a97c b1-2 [facility] 15:15:00 15:15:00 (Reason: patti Nolasco MD f6b-3047-c l Bronchitis z1n-0gmm5k [facility] ) 76e3fa 2014-07-06 2014-07-06 2 Weeks nullFlavo Bria, e71678 3e-c [facility] 15:15:00 15:15:00 (Reason: patti Nolasco MD fb3-433f-a l Bronchitis 33f-e27aca [facility] ) tc166z 2014-07-06 2014-07-06 2 Weeks nullFlavo Bria, 2845f6 21-2 [facility] 15:15:00 15:15:00 (Reason: patti Nolasco MD 8o2-559f-4 l Bronchitis aa7-jjo991 [facility] ) a28dcd 2014-07-06 2014-07-06 2 Weeks nullFlavo Bria, 02e0a9 48-2 [facility] 15:15:00 15:15:00 (Reason: patti Nolasco MD dca-4966-9 l Bronchitis 02e-28b9ef [facility] ) d50a77 2014-07-06 2014-07-06 2 Weeks nullFlavo Bria, 53dcba 0c-0 [facility] 15:15:00 15:15:00 (Reason: patti Nolasco MD 42f-4e35-b l Bronchitis 5r6-wx43bv [facility] ) f301c7 2014-07-06 2014-07-06 2 Weeks nullFlavo Bria, 124a2f 06-e [facility] 15:15:00 15:15:00 (Reason: patti Nolasco MD 1z4-0402-w l Bronchitis 5r4-722je2 [facility] ) 9ph374 2014-07-06 2014-07-06 2 Weeks nullFlavo Bria, 07a74f e4-1 [facility] 15:15:00 15:15:00 (Reason: patti Nolasco MD 839-4154-a l Bronchitis fa0-g7i786 [facility] ) aa72e5 2014-07-06 2014-07-06 2 Weeks nullFlavo Bria, c895af 6a-c [facility] 15:15:00 15:15:00 (Reason: patti Nolasco MD 6v3-3zkf-1 l Bronchitis 1eb-592e06 [facility] ) kmb368 2014-07-06 2014-07-06 2 Weeks nullFlavo Bria, 26a2f1 38-b [facility] 15:15:00 15:15:00 (Reason: patti Nolasco MD k12-0p94-6 l Bronchitis 8a8-19g0jt [facility] ) e622f5 2014-07-06 2014-07-06 2 Weeks nullFlavo Bria, e9c59c 64-2 [facility] 15:15:00 15:15:00 (Reason: patti Nolasco MD 87f-485b-8 l Bronchitis 37c-0c78de [facility] ) 243934 5965-03-30 2014-07-06 2 Weeks nullFlavo Bria, b151cc 0c-d [facility] 15:15:00 15:15:00 (Reason: patti Nolasco MD 7df-4131-9 l Bronchitis n36-0364v8 [facility] ) 04i024 2014-07-06 2014-07-06 2 Weeks nullFlavo Bria, 445c9e e4-e [facility] 14:15:00 14:15:00 (Reason: patti Nolasco MD ab4-4751-8 l Bronchitis 01e-f97a03 [facility] ) 851af6 2014-07-06 2014-07-06 2 Weeks nullFlavo Bria, 80f7ce 10-9 [facility] 14:15:00 14:15:00 (Reason: patti Nolasco MD 0t9-6l4g-2 l Bronchitis 60f-3x6769 [facility] ) 9e2812 2014-07-06 2014-07-06 2 Weeks nullFlavo Bria, 1d42fd 07-3 [facility] 14:15:00 14:15:00 (Reason: patti Nolasco MD 364-40d6-b l Bronchitis 8bc-cf16e5 [facility] ) d230ec 2014-07-06 2014-07-06 2 Weeks nullFlavo Bria, lt6239 47-4 [facility] 14:15:00 14:15:00 (Reason: patti Nolasco MD ce3-4a1e-9 l Bronchitis 6v5-vm5k0i [facility] ) c6e3d2 2014-07-06 2014-07-06 2 Weeks nullFlavo Bria, cad75c 05-a [facility] 14:15:00 14:15:00 (Reason: patti Nolasco MD 21b-40cc-a l Bronchitis d07-15l3z4 [facility] ) 999e9a 2014-07-06 2014-07-06 2 Weeks nullFlavo Bria, ece6f2 65-f [facility] 14:15:00 14:15:00 (Reason: patti Nolasco MD 3n4-68kq-k l Bronchitis x22-6pw3w3 [facility] ) 663862 1716-03-30 2014-07-06 2 Weeks nullFlavo Bria, 80f7ce 10-9 [facility] 14:15:00 14:15:00 (Reason: patti Nolasco MD 4f5-5s8w-3 l Bronchitis 60f-5e0795 [facility] ) 7e1714 2014-07-06 2014-07-06 2 Weeks nullFlavo Bria, 445c9e e4-e [facility] 14:15:00 14:15:00 (Reason: patti Nolasco MD ab4-4751-8 l Bronchitis 01e-f97a03 [facility] ) 851af6 2014-07-06 2014-07-06 2 Weeks nullFlavo Bria, ww2538 47-4 [facility] 14:15:00 14:15:00 (Reason: patti Nolasco MD ce3-4a1e-9 l Bronchitis [id number]-[id number] [facility] ) c6e3d2 2014-07-06 2014-07-06 2 Weeks nullFlavo Bria, cad75c 05-a Memoria 14:15:00 14:15:00 (Reason: patti Nolasco MD 21b-40cc-a l Bronchitis [id number] [facility] ) 999e9a 2014-07-06 2014-07-06 2 Weeks nullFlavo Bria, ece6f2 65-f Memoria 14:15:00 14:15:00 (Reason: patti Nolasco MD 0z0-22gs-t l Bronchitis [id number] [facility] ) [id number] 6752-03-30 2014-07-06 2 Weeks nullFlavo Bria, 1d42fd 07-3 Memoria 14:15:00 14:15:00 (Reason: patti Nolasco MD [id number]-b l Bronchitis [id number]-[id number] [facility] ) [id number] 2014-06-22 2014-06-22 3M X HTN, nullFlavo Bria, 81a4 afa7-f Memoria 15:00:00 15:00:00 Hyperlipid r Gaurav GRANT [id number]-15r3-4 l emia , [id number] Linda nn myalgia b4aaee 2014-06-22 2014-06-22 3M X HTN, nullFlavo Bria, bdcc 5a23-0 Memoria 15:00:00 15:00:00 Hyperlipid r Gaurav GRANT fac-4059-a l emia , [id number] Linda nn myalgia 2u6108 2014-06-22 2014-06-22 3M X HTN, nullFlavo Bria, 3458 832e-d Memoria 15:00:00 15:00:00 Hyperlipid r Gaurav GRANT 206-46f5-8 l emia , [id number] Linda nn myalgia 401839 5236-03-16 2014-06-22 3M X HTN, nullFlavo Bria, 8fe6 3ee2-f Memoria 15:00:00 15:00:00 Hyperlipid r Gaurav GRANT [id number]-v l emia , [id number]-imz918 Linda nn myalgia b0o700 2014-06-22 2014-06-22 3M X HTN, nullFlavo Bria, 360e fade-5 Memoria 15:00:00 15:00:00 Hyperlipid r Gaurav GRANT [id number]-7 l emia , 34a-270a5a Linda nn myalgia 8g5272 2014-06-22 2014-06-22 3M X HTN, nullFlavo Bria, f7f6 44f0-5 Memoria 15:00:00 15:00:00 Hyperlipid r Gaurav GRANT 54f-4e8f-9 l emia , [id number] Linda nn myalgia 64dfde 2014-06-22 2014-06-22 3M X HTN, nullFlavo Bria, 8079 2a85-6 Memoria 15:00:00 15:00:00 Hyperlipid r Gaurav GRANT 539-45d3-9 l emia , 1bd-045cd5 Linda nn myalgia e663c0 2014-06-22 2014-06-22 3M X HTN, nullFlavo Bria, 75f4 0e56-5 Memoria 15:00:00 15:00:00 Hyperlipid r Gaurav GRANT ec7-403d-9 l emia , 1g3-a9hgz0 Linda nn myalgia 0821e0 2014-06-22 2014-06-22 3M X HTN, nullFlavo Bria, fee3 3acf-9 Memoria 15:00:00 15:00:00 Hyperlipid r Gaurav GRANT 4g0-5f76-c l emia , [id number] Linda nn myalgia 89ea4c 2014-06-22 2014-06-22 3M X HTN, nullFlavo Bria, c67e 850a-8 Memoria 15:00:00 15:00:00 Hyperlipid r Gaurav GRANT v8y-1444-r l emia , bf6-63d32e Linda nn myalgia 07y378 2014-06-22 2014-06-22 3M X HTN, nullFlavo Bria, ff97 9302-7 Memoria 15:00:00 15:00:00 Hyperlipid r Gaurav GRATN n0g-3858-z l emia , [id number]-[id number] Linda nn myalgia 54bdb4 2014-06-22 2014-06-22 3M X HTN, nullFlavo Bria, 4e84 f21e-5 Memoria 15:00:00 15:00:00 Hyperlipid r Gaurav GARNT 339-4ea2-9 l emia , 7ec-1202bc Linda nn myalgia 257a00 2014-06-22 2014-06-22 3M X HTN, nullFlavo Bria, 1393 82fe-2 Memoria 15:00:00 15:00:00 Hyperlipid r Gaurav GRANT [id number]-9 l emia , [id number] Linda nn myalgia 882d24 2014-06-22 2014-06-22 3M X HTN, nullFlavo Bria, 3a53 eab3-4 Memoria 15:00:00 15:00:00 Hyperlipid r Gaurav GRANT 329-4c32-a l emia , ef4-17caa8 Linda nn myalgia 0a902u 2014-06-22 2014-06-22 3M X HTN, nullFlavo Bria, bdcc 5a23-0 Memoria 15:00:00 15:00:00 Hyperlipid r Gaurav GRANT fac-4059-a l emia , [id number] Linda nn myalgia 7l6170 2014-06-22 2014-06-22 3M X HTN, nullFlavo Bria, 8fe6 3ee2-f Memoria 15:00:00 15:00:00 Hyperlipid r Gaurav GRANT 4o9-5806-o l emia , 5fb-zuz398 Linda nn myalgia t6x323 2014-06-22 2014-06-22 3M X HTN, nullFlavo Bria, 360e fade-5 Memoria 15:00:00 15:00:00 Hyperlipid r Gaurav GRANT e28-556d-7 l emia , 34a-270a5a Linda nn myalgia 4x5590 2014-06-22 2014-06-22 3M X HTN, nullFlavo Bria, 81a4 afa7-f Memoria 15:00:00 15:00:00 Hyperlipid r Gaurav GRANT k2d-33p3-6 l emia , [id number] Linda nn myalgia b4aaee 2014-06-22 2014-06-22 3M X HTN, nullFlavo Bria, 3458 832e-d Memoria 15:00:00 15:00:00 Hyperlipid r Gaurav GRANT 206-46f5-8 l emia , a45-9ov07g Linda nn myalgia 772099 2629-03-16 2014-06-22 3M X HTN, nullFlavo Bria, f7f6 44f0-5 Memoria 15:00:00 15:00:00 Hyperlipid r Gaurav GRANT 54f-4e8f-9 l emia , [id number]-q62006 Linda nn myalgia 64dfde 2014-06-22 2014-06-22 3M X HTN, nullFlavo Bria, 8079 2a85-6 Memoria 15:00:00 15:00:00 Hyperlipid r Gaurav GRANT 539-45d3-9 l emia , 1bd-045cd5 Linda nn myalgia e663c0 2014-06-22 2014-06-22 3M X HTN, nullFlavo Bria, 75f4 0e56-5 Memoria 15:00:00 15:00:00 Hyperlipid r Gaurav GRANT ec7-403d-9 l emia , 8i5-a7pao8 Linda nn myalgia 0821e0 2014-06-22 2014-06-22 3M X HTN, nullFlavo Bria, c67e 850a-8 Memoria 15:00:00 15:00:00 Hyperlipid r Gaurav GRANT e9q-6718-j l emia , bf6-63d32e Linda nn myalgia 55d476 2014-06-22 2014-06-22 3M X HTN, nullFlavo Bria, fee3 3acf-9 Memoria 15:00:00 15:00:00 Hyperlipid r Gaurav GRANT 9q1-4n58-k l emia , [id number] Linda nn myalgia 89ea4c 2014-06-22 2014-06-22 3M X HTN, nullFlavo Bria, ff97 9302-7 Memoria 15:00:00 15:00:00 Hyperlipid r Gaurav GRANT i6u-9549-u l emia , [id number]-85191j Linda nn myalgia 54bdb4 2014-06-22 2014-06-22 3M X HTN, nullFlavo Bria, 4e84 f21e-5 Memoria 15:00:00 15:00:00 Hyperlipid r Gaurav GRANT 339-4ea2-9 l emia , 7ec-1202bc Linda nn myalgia 257a00 2014-06-22 2014-06-22 3M X HTN, nullFlavo Bira, 3a53 eab3-4 Memoria 15:00:00 15:00:00 Hyperlipid r Gaurav GRANT 329-4c32-a l emia , ef4-17caa8 Linda nn myalgia 8i364m 2014-06-22 2014-06-22 3M X HTN, nullFlavo Bria, 1393 82fe-2 Memoria 15:00:00 15:00:00 Hyperlipid r Gaurav GRANT 932-45bb-9 l emia , [id number] Linda nn myalgia 882d24 2014-06-22 2014-06-22 3M X HTN, nullFlavo Bria, 5591 4059-a Memoria 14:00:00 14:00:00 Hyperlipid r Gaurav GRANT 5bc-420a-8 l emia , 420-de67d4 Linda nn myalgia ea0ec9 2014-06-22 2014-06-22 3M X HTN, nullFlavo Bria, f9cc 5035-8 [facility] 14:00:00 14:00:00 Hyperlipid r Gaurav GRANT f0e-9v80-c l emia , aad-4f92a9 Linda nn myalgia 17i319 2014-06-22 2014-06-22 3M X HTN, nullFlavo Bria, b2e0 a39a-7 [facility] 14:00:00 14:00:00 Hyperlipid r Gaurav GRANT 0ac-4305-b l emia , 66d-60cbf5 Linda nn myalgia 5g942n 2014-06-22 2014-06-22 3M X HTN, nullFlavo Bria, b716 0183-8 [facility] 14:00:00 14:00:00 Hyperlipid r Gaurav GRANT 489-46c6-8 l emia , m04-1dx8f8 Linda nn myalgia ee3a1a 2014-06-22 2014-06-22 3M X HTN, nullFlavo Bria, a384 74c7-7 [facility] 14:00:00 14:00:00 Hyperlipid r Gaurav GRANT c3f-402z-s l emia , 903-450d03 Linda nn myalgia 812853 2689-03-16 2014-06-22 3M X HTN, nullFlavo Bria, b10e d6fc-f [facility] 14:00:00 14:00:00 Hyperlipid r Gaurav GRANT 222-4e62-9 l emia , 87b-81f30d Linda nn myalgia b4226b 2014-06-22 2014-06-22 3M X HTN, nullFlavo Bria, f9cc 5035-8 [facility] 14:00:00 14:00:00 Hyperlipid r Gaurav GRANT m0r-2d24-p l emia , aad-4f92a9 Linda nn myalgia 62x984 2014-06-22 2014-06-22 3M X HTN, nullFlavo Bria, 5591 4059-a [facility] 14:00:00 14:00:00 Hyperlipid r Gaurav GRANT 5bc-420a-8 l emia , 420-de67d4 Linda nn myalgia ea0ec9 2014-06-22 2014-06-22 3M X HTN, nullFlavo Bria, b716 0183-8 [facility] 14:00:00 14:00:00 Hyperlipid r Gaurav GRANT 489-46c6-8 l emia , b35-6xz9t6 Linda nn myalgia ee3a1a 2014-06-22 2014-06-22 3M X HTN, nullFlavo Bria, a384 74c7-7 [facility] 14:00:00 14:00:00 Hyperlipid r Gaurav GRANT u0i-814l-r l emia , 903-450d03 Linda nn myalgia 118996 7455-03-16 2014-06-22 3M X HTN, nullFlavo Bria, b10e d6fc-f [facility] 14:00:00 14:00:00 Hyperlipid r Gaurav GRANT 222-4e62-9 l emia , 87b-81f30d Linda nn myalgia x2775m 2014-06-22 2014-06-22 3M X HTN, nullFlavo Bria, b2e0 a39a-7 [facility] 14:00:00 14:00:00 Hyperlipid r Gaurav GRANT 0ac-4305-b l emia , 66d-60cbf5 Linda nn myalgia 5o100c 2014-05-18 2014-05-18 Unknown nullFlavo Bria, d8cd1e d6-9 [facility] 21:28:00 21:28:00 r Gaurav GRANT 3x0-50v1-u l e08-tq3w4a Linda nn m38291 2014-05-18 2014-05-18 Unknown nullFlavo Bria, 26c3d4 f9-0 [facility] 21:28:00 21:28:00 r Gaurav GRANT 70c-4491-a l 9q9-7y337w Linda nn c227ec 2014-05-18 2014-05-18 Unknown nullFlavo Bria, 169026 9e-5 [facility] 21:28:00 21:28:00 r Gaurav GRANT a90-18j2-9 l 44c-7d8e2f Linda nn ce5bd3 2014-05-18 2014-05-18 Unknown nullFlavo Bria, 472b38 88-5 [facility] 21:28:00 21:28:00 r Gaurav GRANT 182-431b-8 l cce-1b46b5 Linda nn c561a3 2014-05-18 2014-05-18 Unknown nullFlavo Bria, 143c52 ee-7 [facility] 21:28:00 21:28:00 r Gaurav GRANT 043-4043-9 l 37d-p4w391 Linda nn 0f5b56 2014-05-18 2014-05-18 Unknown nullFlavo Bria, 66da78 4f-3 [facility] 21:28:00 21:28:00 r Gaurav GRANT 7y7-258n-s l 6a5-2w9kz6 Linda nn 5b96c5 2014-05-18 2014-05-18 Unknown nullFlavo Bria, 118e91 58-b [facility] 21:28:00 21:28:00 r Gaurav GRANT bee-4172-b l o37-i8n6k5 Linda nn fad0db 2014-05-18 2014-05-18 Unknown nullFlavo Bria, f1c98b 93-6 [facility] 21:28:00 21:28:00 r Gaurav GRANT 33e-4546-b l 2l1-288s99 Linda nn 18l568 2014-05-18 2014-05-18 Unknown nullFlavo Bria, 4tx644 73-6 [facility] 21:28:00 21:28:00 r Gaurav GRANT 0ec-404f-b l a63-25qd3u Linda nn 0a41c2 2014-05-18 2014-05-18 Unknown nullFlavo Bria, 3f4e7e 8b-6 [facility] 21:28:00 21:28:00 r Gaurav GRANT 107-4198-a l 7df-9ad1c2 Linda nn 5aea56 2014-05-18 2014-05-18 Unknown nullFlavo Bria, 6sf307 16-c [facility] 21:28:00 21:28:00 r Gaurav GRANT 141-4f60-9 l a1s-np71kv Linda nn t7h654 2014-05-18 2014-05-18 Unknown nullFlavo Bria, 0c0c9c f6-e [facility] 21:28:00 21:28:00 r Gaurav GRANT 23b-46cf-8 l 524-7b05d9 Linda nn 950b2b 2014-05-18 2014-05-18 Unknown nullFlavo Bria, 8t4306 c2-1 [facility] 21:28:00 21:28:00 r Gaurav GRANT 6a5-09b7-8 l c44-b06cwj Linda nn 6v8771 2014-05-18 2014-05-18 Unknown nullFlavo Bria, 455ce7 14-0 [facility] 21:28:00 21:28:00 r Gaurav GRANT 052-4fe7-b l y41-3r4g6j Linda nn 4514c2 2014-05-18 2014-05-18 Unknown nullFlavo Bria, 26c3d4 f9-0 [facility] 21:28:00 21:28:00 r Gaurav GRANT 70c-4491-a l 8d7-3f027z Linda nn c227ec 2014-05-18 2014-05-18 Unknown nullFlavo Bria, 472b38 88-5 [facility] 21:28:00 21:28:00 r Gaurav GRANT 182-431b-8 l cce-1b46b5 Linda nn c561a3 2014-05-18 2014-05-18 Unknown nullFlavo Bria, 143c52 ee-7 [facility] 21:28:00 21:28:00 r Gaurav GRANT 043-4043-9 l 37d-c4p610 Linda nn 0f5b56 2014-05-18 2014-05-18 Unknown nullFlavo Bria, d8cd1e d6-9 [facility] 21:28:00 21:28:00 r Gaurav GRANT 3o0-58w5-k l c69-rf4d9l Linda nn j54124 2014-05-18 2014-05-18 Unknown nullFlavo Bria, 011784 9e-5 [facility] 21:28:00 21:28:00 r Gaurav GRANT y23-34o4-0 l 44c-7d8e2f Linda nn ce5bd3 2014-05-18 2014-05-18 Unknown nullFlavo Bria, 66da78 4f-3 [facility] 21:28:00 21:28:00 r Gaurav GRANT 1g9-626m-q l 1t9-4p5xz5 Linda nn 5b96c5 2014-05-18 2014-05-18 Unknown nullFlavo Bria, 118e91 58-b [facility] 21:28:00 21:28:00 r Gaurav GRANT bee-4172-b l a79-c5k9c0 Linda nn fad0db 2014-05-18 2014-05-18 Unknown nullFlavo Bria, f1c98b 93-6 [facility] 21:28:00 21:28:00 r Gaurav GRANT 33e-4546-b l 3i8-673g18 Linda nn 36u961 2014-05-18 2014-05-18 Unknown nullFlavo Bria, 3f4e7e 8b-6 [facility] 21:28:00 21:28:00 r Gaurav GRANT 107-4198-a l 7df-9ad1c2 Linda nn 5aea56 2014-05-18 2014-05-18 Unknown nullFlavo Bria, 9ac272 73-6 [facility] 21:28:00 21:28:00 r Gaurav GRANT 0ec-404f-b l t75-83hw4d Linda nn 0a41c2 2014-05-18 2014-05-18 Unknown nullFlavo Bria, 0zs374 16-c [facility] 21:28:00 21:28:00 r Gaurav GRANT 141-4f60-9 l z9u-gz49hj Linda nn k4o891 2014-05-18 2014-05-18 Unknown nullFlavo Bria, 0c0c9c f6-e [facility] 21:28:00 21:28:00 r Gaurav GRANT 23b-46cf-8 l 524-7b05d9 Linda nn 950b2b 2014-05-18 2014-05-18 Unknown nullFlavo Bria, 455ce7 14-0 [facility] 21:28:00 21:28:00 r Gaurav GRANT 052-4fe7-b l w79-2e6k6z Linda nn 4514c2 2014-05-18 2014-05-18 Unknown nullFlavo Bria, 7u4783 c2-1 [facility] 21:28:00 21:28:00 r Gaurav GRANT 9c7-07s7-8 l z33-k62wfl Linda nn 1w6187 2014-05-18 2014-05-18 Unknown nullFlavo Bria, 129fd9 48-d [facility] 20:28:00 20:28:00 r Gaurav GRANT d8m-15pb-f l 261-1cba60 Linda nn 02e40f 2014-05-18 2014-05-18 Unknown nullFlavo Bria, 9fz233 23-3 [facility] 20:28:00 20:28:00 r Gaurav GRANT y94-2g80-h l 1z5-7671k6 [facility] nn 24bab2 2014-05-18 2014-05-18 Unknown nullFlavo Bria, i61560 84-1 [facility] 20:28:00 20:28:00 r Gaurav GRANT 685-4be7-9 l 380-e657fb [facility] nn de4746 2014-05-18 2014-05-18 Unknown nullFlavo Bria, 3ae0f2 e0-d [facility] 20:28:00 20:28:00 r Gaurav GRANT c34-8d0d-h l 0l0-2234k4 [facility] nn 8c6c5a 2014-05-18 2014-05-18 Unknown nullFlavo Bria, 677573 ee-a [facility] 20:28:00 20:28:00 r Gaurav GRANT 769-429a-9 l 008-265247 [facility] nn 138815 0669-02-09 2014-05-18 Unknown nullFlavo Bria, 7d06b5 54-d [facility] 20:28:00 20:28:00 r Gaurav GRANT 5fb-415f-b l 20f-95v851 [facility] nn 65ddea 2014-05-18 2014-05-18 Unknown nullFlavo Bria, 3qc394 23-3 [facility] 20:28:00 20:28:00 r Gaurav GRANT r80-7z65-w l 6q1-3509i6 [facility] nn 24bab2 2014-05-18 2014-05-18 Unknown nullFlavo Bria, 129fd9 48-d [facility] 20:28:00 20:28:00 r Gaurav GRANT b4u-02gz-z l 261-1cba60 [facility] nn 02e40f 2014-05-18 2014-05-18 Unknown nullFlavo Bria, 3ae0f2 e0-d [facility] 20:28:00 20:28:00 r Gaurav GRANT f97-7c1i-n l 2c3-1138p8 [facility] nn 8c6c5a 2014-05-18 2014-05-18 Unknown nullFlavo Bria, 543014 ee-a [facility] 20:28:00 20:28:00 r Gaurav GRANT 769-429a-9 l [id number] [facility] nn 017428 5980-02-09 2014-05-18 Unknown nullFlavo Bria, 7d06b5 54-d [facility] 20:28:00 20:28:00 r Gaurav GRANT 5fb-415f-b l 20f-45y714 [facility] 65ddea 2014-05-18 2014-05-18 Unknown nullFlavo Bria, p35190 84-1 [facility] 20:28:00 20:28:00 r Gaurav GRANT 685-4be7-9 l 380-e657fb [facility] ur5648 2014-03-23 2014-03-23 3 Months nullFlavo Bria, 9ef87 370-c [facility] 16:15:00 16:15:00 (Reason: r Gaurav GRANT 4m3-8u64-h l Thyroid , w0l-r46126 Her [facility] cholestero 13179o l ) 2014-03-23 2014-03-23 3 Months nullFlavo Bria, bf1a2 ecc-b [facility] 16:15:00 16:15:00 (Reason: r Gaurav GRANT 875-4230-9 l Thyroid , 071-035e57 Her mc[facility] cholestero e03739 l ) 2014-03-23 2014-03-23 3 Months nullFlavo Bria, cdfe9 db6-c [facility] 16:15:00 16:15:00 (Reason: r Gaurav GRANT l78-4fuc-y l Thyroid , 36c-d124ef Her [facility] cholestero 47fb8f l ) 2014-03-23 2014-03-23 3 Months nullFlavo Bria, d0b1d 3cb-e [facility] 16:15:00 16:15:00 (Reason: patti Nolasco MD q74-3a0a-0 l Thyroid , j4g-b65370 Her [facility] 902e3c l ) 2014-03-23 2014-03-23 3 Months nullFlavo Bria, 75efc c6d-c [facility] 16:15:00 16:15:00 (Reason: patti Nolasco MD ac2-429f-9 l Thyroid , 525-17fd00 Her [facility]olestero exx874 l ) 2014-03-23 2014-03-23 3 Months nullFlavo Bria, 82b75 297-9 [facility] 16:15:00 16:15:00 (Reason: patti Nolasco MD x3i-63w5-8 l Thyroid , cbd-5294a9 Her mc[facility] cholestero 4df9e0 l ) 2014-03-23 2014-03-23 3 Months nullFlavo Bria, fb8e7 0c9-6 [facility] 16:15:00 16:15:00 (Reason: patti Nolasco MD b2p-85m2-s l Thyroid , i90-20ai49 Her m[facility] cholestero 4dfb20 l ) 2014-03-23 2014-03-23 3 Months nullFlavo Bria, 6a8db a8a-7 [facility] 16:15:00 16:15:00 (Reason: patti Nolasco MD w16-7385-7 l Thyroid , 6aa-e6c2bd Her mcgu[facility] cholestero 2cbaaa l ) 2014-03-23 2014-03-23 3 Months nullFlavo Bria, a7883 cea-5 [facility] 16:15:00 16:15:00 (Reason: patti Nolasco MD 1t8-091w-z l Thyroid , b30-4p6fz6 Her mcgu[facility] cholestero [id number] l ) 2014-03-23 2014-03-23 3 Months nullFlavo Bria, 4ca68 697-9 [facility] 16:15:00 16:15:00 (Reason: patti Nolasco MD 94c-4228-8 l Thyroid , 00a-8b71fb Her mc[facility] cholestero 1wc658 l ) 2014-03-23 2014-03-23 3 Months nullFlavo Bria, 952fa 7d5-e [facility] 16:15:00 16:15:00 (Reason: patti Nolasco MD bf4-4cdb-9 l Thyroid , 9fd-6f55a2 Her mcguire cholestero 3i3665 l ) 2014-03-23 2014-03-23 3 Months nullFlavo Bria, 8fea7 8aa-f [facility] 16:15:00 16:15:00 (Reason: patti Nolasco MD adc-4090-b l Thyroid , s72-f2r6y6 Her mc[facility] cholestero 8375a1 l ) 2014-03-23 2014-03-23 3 Months nullFlavo Bria, ce8ac a68-8 [facility] 16:15:00 16:15:00 (Reason: patti Nolasco MD x46-693m-5 l Thyroid , 0f1-7u072z Her mcgu[facility] cholestero r6v313 l ) 2014-03-23 2014-03-23 3 Months nullFlavo Bria, 1a53d 1ae-f [facility] 16:15:00 16:15:00 (Reason: patti Nolasco MD 737-4031-8 l Thyroid , 48a-ba45e2 Her mcguire cholestero 33548m l ) 2014-03-23 2014-03-23 3 Months nullFlavo Bria, 8caba cc6-7 [facility] 16:15:00 16:15:00 (Reason: patti Nolasco MD y84-48s2-8 l Thyroid , [id number] Her mc[facility] cholestero a197b8 l ) 2014-03-23 2014-03-23 3 Months nullFlavo Bria, bf1a2 ecc-b [facility] 16:15:00 16:15:00 (Reason: patti Nolasco MD 875-4230-9 l Thyroid , 071-035e57 Her mcgu[facility] cholestero c13729 l ) 2014-03-23 2014-03-23 3 Months nullFlavo Bria, 6a8db a8a-7 [facility] 16:15:00 16:15:00 (Reason: patti Nolasco MD i15-1946-5 l Thyroid , 6aa-e6c2bd Her mc[facility] cholestero 2cbaaa l ) 2014-03-23 2014-03-23 3 Months nullFlavo Bria, d0b1d 3cb-e [facility] 16:15:00 16:15:00 (Reason: patti Nolasco MD h96-4i8b-7 l Thyroid , t1x-m00008 Her mcgu[facility] cholestero 902e3c l ) 2014-03-23 2014-03-23 3 Months nullFlavo Bria, 75efc c6d-c [facility] 16:15:00 16:15:00 (Reason: patti Nolasco MD ac2-429f-9 l Thyroid , 525-17fd00 Her mcguire cholestero bvw644 l ) 2014-03-23 2014-03-23 3 Months nullFlavo Bria, 9ef87 370-c [facility] 16:15:00 16:15:00 (Reason: patti Nolasco MD 8j8-1v28-z l Thyroid , e0k-o97948 Her mc[facility] cholestero 39540o l ) 2014-03-23 2014-03-23 3 Months nullFlavo Bria, cdfe9 db6-c [facility] 16:15:00 16:15:00 (Reason: patti Nolasco MD l72-2tkj-l l Thyroid , 36c-d124ef Her mcguire cholestero 47fb8f l ) 2014-03-23 2014-03-23 3 Months nullFlavo Bria, 82b75 297-9 [facility] 16:15:00 16:15:00 (Reason: patti Nolasco MD i6q-13v4-8 l Thyroid , cbd-5294a9 Her mcguire cholestero 4df9e0 l ) 2014-03-23 2014-03-23 3 Months nullFlavo Bria, fb8e7 0c9-6 [facility] 16:15:00 16:15:00 (Reason: patti Nolasco MD b3g-64y5-o l Thyroid , z86-99fn78 Her mcgu[facility] cholestero 4dfb20 l ) 2014-03-23 2014-03-23 3 Months nullFlavo Bria, a7883 cea-5 [facility] 16:15:00 16:15:00 (Reason: patti Noalsco MD 1d4-168p-n l Thyroid , q25-3f9ck9 Her mcgu[facility] cholestero 587070 l ) 2014-03-23 2014-03-23 3 Months nullFlavo Bria, 952fa 7d5-e [facility] 16:15:00 16:15:00 (Reason: patti Nolasco MD bf4-4cdb-9 l Thyroid , 9fd-6f55a2 Her mcguire cholestero 2w9039 l ) 2014-03-23 2014-03-23 3 Months nullFlavo Bria, 4ca68 697-9 [facility] 16:15:00 16:15:00 (Reason: patti Nolasco MD 94c-4228-8 l Thyroid , 00a-8b71fb Her mcguire cholestero 1fa388 l ) 2014-03-23 2014-03-23 3 Months nullFlavo Bria, 8fea7 8aa-f [facility] 16:15:00 16:15:00 (Reason: patti Nolasco MD adc-4090-b l Thyroid , r09-w4v1b0 Her mcguire cholestero 8375a1 l ) 2014-03-23 2014-03-23 3 Months nullFlavo Bria, ce8ac a68-8 [facility] 16:15:00 16:15:00 (Reason: patti Nolasco MD z31-374w-2 l Thyroid , 8x5-4d508v Her mcguire cholestero i8h803 l ) 2014-03-23 2014-03-23 3 Months nullFlavo Bria, 8caba cc6-7 [facility] 16:15:00 16:15:00 (Reason: patti Nolasco MD r99-22c2-7 l Thyroid , 994-202243 Her mcguire cholestero a197b8 l ) 2014-03-23 2014-03-23 3 Months nullFlavo Bria, 1a53d 1ae-f [facility] 16:15:00 16:15:00 (Reason: patti Nolasco MD 737-4031-8 l Thyroid , 48a-ba45e2 Her mcguire cholestero 46245o l ) 2014-03-23 2014-03-23 3 Months nullFlavo Bria, 10143 e8a-c [facility] 15:15:00 15:15:00 (Reason: patti Nolasco MD p13-0mt9-g l Thyroid , 30c-f56b54 Her mcguire cholestero 5b14b6 l ) 2014-03-23 2014-03-23 3 Months nullFlavo Bria, 06c75 314-b [facility] 15:15:00 15:15:00 (Reason: patti Nolasco MD 9m9-6952-6 l Thyroid , 345-0a4a07 Her mcguire cholestero c7e7eb l ) 2014-03-23 2014-03-23 3 Months nullFlavo Bria, e9164 66c-8 [facility] 15:15:00 15:15:00 (Reason: patti Nolasco MD n97-5ud7-q l Thyroid , 271-03653p Her mcguire cholestero e39fee l ) 2014-03-23 2014-03-23 3 Months nullFlavo Bria, a7641 5be-d [facility] 15:15:00 15:15:00 (Reason: patti Nolasco MD fe8-47bc-a l Thyroid , m6n-309136 Her mcgu[facility] cholestero ehx825 l ) 2014-03-23 2014-03-23 3 Months nullFlavo Bria, ec57f b9c-8 [facility] 15:15:00 15:15:00 (Reason: patti Nolasco MD ffd-4c4c-b l Thyroid , d8b-9o7qj8 Her mcguire cholestero 626b74 l ) 2014-03-23 2014-03-23 3 Months nullFlavo Bria, 28913 ee3-f [facility] 15:15:00 15:15:00 (Reason: patti Nolasco MD 598-4a5f-8 l Thyroid , dfc-699fe6 Her mcguire cholestero b586e6 l ) 2014-03-23 2014-03-23 3 Months nullFlavo Bria, 06c75 314-b [facility] 15:15:00 15:15:00 (Reason: patti Nolasco MD 5s1-9982-0 l Thyroid , 345-0a4a07 Her mcguire cholestero c7e7eb l ) 2014-03-23 2014-03-23 3 Months nullFlavo Bria, 38255 e8a-c [facility] 15:15:00 15:15:00 (Reason: patti Nolasco MD t38-0kz6-x l Thyroid , 30c-f56b54 Her mcguire cholestero 5b14b6 l ) 2014-03-23 2014-03-23 3 Months nullFlavo Bria, a7641 5be-d [facility] 15:15:00 15:15:00 (Reason: patti Nolasco MD fe8-47bc-a l Thyroid , u4j-086205 Her mcguire cholestero qlj615 l ) 2014-03-23 2014-03-23 3 Months nullFlavo Bria, ec57f b9c-8 [facility] 15:15:00 15:15:00 (Reason: patti Nolasco MD ffd-4c4c-b l Thyroid , g3d-2d8wl8 Her mcguire cholestero 626b74 l ) 2014-03-23 2014-03-23 3 Months nullFlavo Bria, 26001 ee3-f [facility] 15:15:00 15:15:00 (Reason: patti Nolasco MD 598-4a5f-8 l Thyroid , dfc-699fe6 Her mcguire cholestero b586e6 l ) 2014-03-23 2014-03-23 3 Months nullFlavo Bria, e9164 66c-8 [facility] 15:15:00 15:15:00 (Reason: patti Nolasco MD s79-3ex2-x l Thyroid , 271-50512v Her mcguire cholestero e39fee l ) 2014-03-23 2014-03-23 Outpatient [facility], 148 814 [facility] 10:15:00 10:15:00 Gaurav Nolasco MD alWork s 2014-02-04 2014-02-04 Medication nullFlavo Bria, 482 33fb8-h [facility] 19:30:00 19:30:00 s Issue r Gaurav GRANT ce4-481f-8 l 127-f730b2 [facility] nn 919ec4 2014-02-04 2014-02-04 Medication nullFlavo Bria, e64 744m6-m [facility] 19:30:00 19:30:00 s Issue patti Nolasco MD ce0-4911-9 l 44f-196901 [facility] nn d5f082 2014-02-04 2014-02-04 Medication nullFlavo Bria, d45 71s49-9 [facility] 19:30:00 19:30:00 s Issue patti Nolasco MD 38b-43a2-8 l 9h9-7s74ye [facility] nn 99b0c5 2014-02-04 2014-02-04 Medication nullFlavo Bria, 9bf vb50o-9 [facility] 19:30:00 19:30:00 s Issue r Gaurav GRANT 858-4d3e-9 l y96-tb10vv [facility] nn 5my660 2014-02-04 2014-02-04 Medication nullFlavo Bria, ce0 wg3r2-4 [facility] 19:30:00 19:30:00 s Issue patti Nolasco MD 48e-4319-a l cea-0932e1 [facility] nn kf1001 2014-02-04 2014-02-04 Medication nullFlavo Bria, 283 p9150-z [facility] 19:30:00 19:30:00 s Issue patti Nolasco MD b80-1f17-5 l 6y2-v5m8p8 [facility] nn 57892v 2014-02-04 2014-02-04 Medication nullFlavo Bria, 294 52z72-d [facility] 19:30:00 19:30:00 s Issue patti Noalsco MD 94f-4eb8-a l 731-be0e5c [facility] nn 1303a5 2014-02-04 2014-02-04 Medication nullFlavo Bria, 974 ffd06-0 [facility] 19:30:00 19:30:00 s Issue patti Nolasco MD 9i5-91us-7 l 1r9-9769r3 [facility] nn ae66ac 2014-02-04 2014-02-04 Medication nullFlavo Bria, a73 4u051-5 [facility] 19:30:00 19:30:00 s Issue patti Nolasco MD 366-49e2-8 l 8df-d31b85 [facility] nn 127317 9289-10-29 2014-02-04 Medication nullFlavo Bria, 6d7 56yf8-5 [facility] 19:30:00 19:30:00 s Issue patti Nolasco MD bf7-4d98-a l 41b-cd3a74 [facility] nn 980b6f 2014-02-04 2014-02-04 Medication nullFlavo Bria, b56 2a420-1 [facility] 19:30:00 19:30:00 s Issue patti Nolasco MD h98-03ub-i l 10e-67j904 [facility] nn 15m706 2014-02-04 2014-02-04 Medication nullFlavo Bria, 786 86et5-7 [facility] 19:30:00 19:30:00 s Issue patti Nolasco MD bc7-4162-8 l 23a-ea1bdf [facility] px473p 2014-02-04 2014-02-04 Medication nullFlavo Bria, 738 797m2-4 [facility] 19:30:00 19:30:00 s Issue patti Nolasco MD 1h1-313o-4 l t6v-0n0rgp [facility] nn a3d74b 2014-02-04 2014-02-04 Medication nullFlavo Bria, 2b1 0b676-5 [facility] 19:30:00 19:30:00 s Issue patti Nolasco MD 5k5-36t0-h l shakir-b7fa75 [facility] nn 11840n 2014-02-04 2014-02-04 Medication nullFlavo Bria, 425 6ck2t-o [facility] 19:30:00 19:30:00 s Issue patti Nolasco MD 622-4348-b l ef5-48q515 [facility] y81508 2014-02-04 2014-02-04 Medication nullFlavo Bria, 29d 3j137-7 [facility] 19:30:00 19:30:00 s Issue patti Nolasco MD j82-1231-4 l 870-72ae9e [facility] nn 376b9a 2014-02-04 2014-02-04 Medication nullFlavo Bria, d45 86c52-0 [facility] 19:30:00 19:30:00 s Issue patti Nolasco MD 38b-43a2-8 l 2u4-1f70fe [facility] nn 99b0c5 2014-02-04 2014-02-04 Medication nullFlavo Bria, a73 2i943-8 [facility] 19:30:00 19:30:00 s Issue patti Nolasco MD 366-49e2-8 l 8df-d31b85 [facility] nn [id number] 5061-10-29 2014-02-04 Medication nullFlavo Bria, e64 564a1-v [facility] 19:30:00 19:30:00 s Issue patti Nolasco MD ce0-4911-9 l [id number] [facility] l2r447 2014-02-04 2014-02-04 Medication nullFlavo Bria, ce0 tb7e8-5 [facility] 19:30:00 19:30:00 s Issue patti Nolasco MD 48e-4319-a l cea-0932e1 [facility] nn [id number] 2014-02-04 2014-02-04 Medication nullFlavo Bria, 283 s4180-z [facility] 19:30:00 19:30:00 s Issue patti Nolasco MD k37-6v47-1 l 8p9-w5d2l0 [facility] nn [id number] 2014-02-04 2014-02-04 Medication nullFlavo Bria, 482 99fg4-m [facility] 19:30:00 19:30:00 s Issue patti Nolasco MD ce4-481f-8 l [id number]-f730b2 [facility] nn [id number] 2014-02-04 2014-02-04 Medication nullFlavo Bria, 9bf oc38f-0 [facility] 19:30:00 19:30:00 s Issue patti Nolasco MD 858-4d3e-9 l [id number]-cj64ig [facility] nn [id number] 2014-02-04 2014-02-04 Medication nullFlavo Bria, 294 21j76-n [facility] 19:30:00 19:30:00 s Issue patti Nolasco MD 94f-4eb8-a l 731-be0e5c [facility] nn [id number] 2014-02-04 2014-02-04 Medication nullFlavo Bria, 974 ffd06-0 [facility] 19:30:00 19:30:00 s Issue patti Nolasco MD 1e6-15oo-2 l [id number] [facility] nn [id number] 2014-02-04 2014-02-04 Medication nullFlavo Bria, 6d7 09af2-1 [facility] 19:30:00 19:30:00 s Issue patti Nolasco MD bf7-4d98-a l 41b-cd3a74 [facility] nn [id number] 2014-02-04 2014-02-04 Medication nullFlavo Bria, 786 12cm5-6 [facility] 19:30:00 19:30:00 s Issue patti Nolasco MD bc7-4162-8 l 23a-ea1bdf [facility] nn va809w 2014-02-04 2014-02-04 Medication nullFlavo Bria, b56 0a724-1 [facility] 19:30:00 19:30:00 s Issue patti Nolasco MD c42-66io-k l [id number]-21n344 [facility] nn [id number] 2014-02-04 2014-02-04 Medication nullFlavo Bria, 738 890u2-9 [facility] 19:30:00 19:30:00 s Issue patti Nolasco MD 4t9-435w-8 l d3c-6l6ndb [facility] nn a3d74b 2014-02-04 2014-02-04 Medication nullFlavo Brai, 2b1 1o357-9 [facility] 19:30:00 19:30:00 s Issue patti Nolasco MD 5u0-06g4-r l shakir-b7fa75 [facility] nn [id number] 2014-02-04 2014-02-04 Medication nullFlavo Bria, 29d 6i857-7 [facility] 19:30:00 19:30:00 s Issue patti Nolasco MD h35-0297-3 l [id number] [facility] nn [id number] 2014-02-04 2014-02-04 Medication nullFlavo Bria, 425 9ld0s-y [facility] 19:30:00 19:30:00 s Issue patti Nolasco MD 622-4348-b l [id number] [facility] nn [id number] 2014-02-04 2014-02-04 Medication nullFlavo Bria, 858 z0606-7 [facility] 18:30:00 18:30:00 s Issue patti Nolasco MD fde-4ea1-b l z3w-0bi413 [facility] nn aebc34 2014-02-04 2014-02-04 Medication nullFlavo Bria, 786 y4lqk-y [facility] 18:30:00 18:30:00 s Issue patti Nolasco MD v9h-050p-p l 28e-f8t731 [facility] nn 82bce3 2014-02-04 2014-02-04 Medication nullFlavo Bria, c72 w4w8d-3 [facility] 18:30:00 18:30:00 s Issue patti Nolasco MD 19d-471a-8 l z4c-h307am [facility] nn [id number] 2014-02-04 2014-02-04 Medication nullFlavo Bria, 289 h7897-4 [facility] 18:30:00 18:30:00 s Issue patti Nolasco MD 2h6-345o-n l [id number] [facility] ltx847 2014-02-04 2014-02-04 Medication nullFlavo Bria, 6a3 80461-6 [facility] 18:30:00 18:30:00 s Issue patti Nolasco MD df3-470e-8 l ec1-ffc0b6 [facility] 9dd6ca 2014-02-04 2014-02-04 Medication nullFlavo Bria, 6a4 l64j7-1 [facility] 18:30:00 18:30:00 s Issue patti Nolasco MD v75-3805-4 l ca3-d26a72 [facility] nn [id number] 8756-10-29 2014-02-04 Medication nullFlavo Bria, 786 y9prx-h [facility] 18:30:00 18:30:00 s Issue patti Nolasco MD v4h-910c-o l 28e-b5w137 [facility] 82bce3 2014-02-04 2014-02-04 Medication nullFlavo Bria, 858 f4825-0 [facility] 18:30:00 18:30:00 s Issue patti Nolasco MD fde-4ea1-b l u7n-4ti511 [facility] aebc34 2014-02-04 2014-02-04 Medication nullFlavo Bria, 289 w0155-6 [facility] 18:30:00 18:30:00 s Issue patti Nolasco MD 2s2-993i-c l [id number] [facility] wyf349 2014-02-04 2014-02-04 Medication nullFlavo Bria, 6a3 99704-9 [facility] 18:30:00 18:30:00 s Issue patti Nolasco MD df3-470e-8 l ec1-ffc0b6 [facility] 9dd6ca 2014-02-04 2014-02-04 Medication nullFlavo Bria, 6a4 s81q9-2 [facility] 18:30:00 18:30:00 s Issue patti Nolasco MD u85-7823-1 l ca3-d26a72 [facility] [id number] 6971-10-29 2014-02-04 Medication nullFlavo Bria, c72 o0b8h-3 [facility] 18:30:00 18:30:00 s Issue patti Nolasco MD 19d-471a-8 l m9g-c368ef [facility] 35856f 2014-02-04 2014-02-04 Outpatient Bria Fraser, 152 773 [facility] 13:30:00 13:30:00 Gaurav Nolasco MD alWork s 2013-12-18 2013-12-18 2 Weeks nullFlavo Bria, 02d81f e4-7 [facility] 14:45:00 14:45:00 (Reason: patti Nolasco MD w22-42m3-1 l Thyroid , [id number]-i9154i Her mcguire fibromyalg al9591 ia ,osteoporo sis ) 2013-12-18 2013-12-18 2 Weeks nullFlavo Bria, f681b0 aa-6 [facility] 14:45:00 14:45:00 (Reason: patti Nolasco MD ef7-4e6b-a l Thyroid , [id number] Her mcguire fibromyalg f42661 ia ,osteoporo sis ) 2013-12-18 2013-12-18 2 Weeks nullFlavo Bria, 4b3ef9 aa-3 [facility] 14:45:00 14:45:00 (Reason: patti Nolasco MD 06d-4ad8-9 l Thyroid , w58-kw1v5d Her mcguire fibromyalg 999b57 ia ,osteoporo sis ) 2013-12-18 2013-12-18 2 Weeks nullFlavo Bria, 9z152a 9d-b [facility] 14:45:00 14:45:00 (Reason: patti Nolasco MD 415-440c-b l Thyroid , 814-bfff4f Her mcguire fibromyalg a9c7ac ia ,osteoporo sis ) 2013-12-18 2013-12-18 2 Weeks nullFlavo Bria, b8e0ca 19-e [facility] 14:45:00 14:45:00 (Reason: patti Nolasco MD 443-4068-9 l Thyroid , [id number] Her mcguire fibromyalg 16edce ia ,osteoporo sis ) 2013-12-18 2013-12-18 2 Weeks nullFlavo Bria, f2ebe3 98-a [facility] 14:45:00 14:45:00 (Reason: patti Nolasco MD 9k3-34jh-p l Thyroid , x43-0o2j15 Her mcguire fibromyalg 3t174a ia ,osteoporo sis ) 2013-12-18 2013-12-18 2 Weeks nullFlavo Bria, efaae2 26-f [facility] 14:45:00 14:45:00 (Reason: patti Nolasco MD 446-4378-9 l Thyroid , 146-2eh920 Her mcguire fibromyalg 663e1d ia ,osteoporo sis ) 2013-12-18 2013-12-18 2 Weeks nullFlavo Bria, 6ae78b dc-5 [facility] 14:45:00 14:45:00 (Reason: patti Nolasco MD 958-4cfb-8 l Thyroid , b5j-s86v55 Her mcguire fibromyalg 8b3c15 ia ,osteoporo sis ) 2013-12-18 2013-12-18 2 Weeks nullFlavo Bria, 791889 d5-e [facility] 14:45:00 14:45:00 (Reason: patti Nolasco MD cb2-4bdf-b l Thyroid , 2aa-8294ce Her mcguire fibromyalg 919fc0 ia ,osteoporo sis ) 2013-12-18 2013-12-18 2 Weeks nullFlavo Bria, 70ad16 9e-5 [facility] 14:45:00 14:45:00 (Reason: patti Nolasco MD 654-41b7-8 l Thyroid , x45-s5di0e Her mcguire fibromyalg 60b0ba ia ,osteoporo sis ) 2013-12-18 2013-12-18 2 Weeks nullFlavo Bria, 6846d4 45-3 [facility] 14:45:00 14:45:00 (Reason: patit Nolasco MD w75-3484-h l Thyroid , 8ad-3d4b20 Her mcguire fibromyalg 28cf4d ia ,osteoporo sis ) 2013-12-18 2013-12-18 2 Weeks nullFlavo Bria, 35f2d6 6c-7 [facility] 14:45:00 14:45:00 (Reason: patti Nolasco MD 118-4906-8 l Thyroid , aee-z4r926 Her mcguire fibromyalg 31835l ia ,osteoporo sis ) 2013-12-18 2013-12-18 2 Weeks nullFlavo Bria, 2v7036 24-0 [facility] 14:45:00 14:45:00 (Reason: patti Nolasco MD ab5-4029-9 l Thyroid , 2be-960c52 Her mcguire fibromyalg 469228 ia ,osteoporo sis ) 2013-12-18 2013-12-18 2 Weeks nullFlavo Bria, 82c0c6 a4-9 [facility] 14:45:00 14:45:00 (Reason: patti Nolasco MD a77-4a18-z l Thyroid , p29-6aau51 Her mcguire fibromyalg 130fd0 ia ,osteoporo sis ) 2013-12-18 2013-12-18 2 Weeks nullFlavo Bria, 98755t db-0 [facility] 14:45:00 14:45:00 (Reason: patti Nolasco MD 524-410e-a l Thyroid , gladys-eca3b2 Her mcugire fibromyalg 82d1f2 ia ,osteoporo sis ) 2013-12-18 2013-12-18 2 Weeks nullFlavo Bria, 2e7a78 1c-1 [facility] 14:45:00 14:45:00 (Reason: patti Nolasco MD 991-41de-a l Thyroid , y1m-7pg4b8 Her mcguire fibromyalg 0n1306 ia ,osteoporo sis ) 2013-12-18 2013-12-18 2 Weeks nullFlavo Bria, 4b3ef9 aa-3 [facility] 14:45:00 14:45:00 (Reason: patti Nolasco MD 06d-4ad8-9 l Thyroid , l88-tj5d8x Her mcguire fibromyalg 999b57 ia ,osteoporo sis ) 2013-12-18 2013-12-18 2 Weeks nullFlavo Bria, 300331 d5-e [facility] 14:45:00 14:45:00 (Reason: patti Nolasco MD cb2-4bdf-b l Thyroid , 2aa-8294ce Her mcguire fibromyalg 919fc0 ia ,osteoporo sis ) 2013-12-18 2013-12-18 2 Weeks nullFlavo Bria, f681b0 aa-6 [facility] 14:45:00 14:45:00 (Reason: patti Nolasco MD ef7-4e6b-a l Thyroid , 618-0372f4 Her mcguire fibromyalg d29734 ia ,osteoporo sis ) 2013-12-18 2013-12-18 2 Weeks nullFlavo Bria, b8e0ca 19-e [facility] 14:45:00 14:45:00 (Reason: patti Nolasco MD 443-4068-9 l Thyroid , 9x5-237u96 Her mcguire fibromyalg 16edce ia ,osteoporo sis ) 2013-12-18 2013-12-18 2 Weeks nullFlavo Bria, f2ebe3 98-a [facility] 14:45:00 14:45:00 (Reason: patti Nolasco MD 4x0-78qq-p l Thyroid , h97-0d2f55 Her mcguire fibromyalg 7z590m ia ,osteoporo sis ) 2013-12-18 2013-12-18 2 Weeks nullFlavo Bria, 02d81f e4-7 [facility] 14:45:00 14:45:00 (Reason: patti Nolasco MD c68-53s8-9 l Thyroid , 996-i5385g Her mcguire fibromyalg cm2576 ia ,osteoporo sis ) 2013-12-18 2013-12-18 2 Weeks nullFlavo Bria, 8m454x 9d-b [facility] 14:45:00 14:45:00 (Reason: patti Nolasco MD 415-440c-b l Thyroid , 814-bfff4f Her mcguire fibromyalg a9c7ac ia ,osteoporo sis ) 2013-12-18 2013-12-18 2 Weeks nullFlavo Bria, efaae2 26-f [facility] 14:45:00 14:45:00 (Reason: patti Nolasco MD 446-4378-9 l Thyroid , 146-0pr464 Her mcguire fibromyalg 663e1d ia ,osteoporo sis ) 2013-12-18 2013-12-18 2 Weeks nullFlavo Bria, 6ae78b dc-5 [facility] 14:45:00 14:45:00 (Reason: patti Nolasco MD 958-4cfb-8 l Thyroid , w8o-e40i68 Her mcguire fibromyalg 8b3c15 ia ,osteoporo sis ) 2013-12-18 2013-12-18 2 Weeks nullFlavo Bria, 70ad16 9e-5 [facility] 14:45:00 14:45:00 (Reason: patti Nolasco MD 654-41b7-8 l Thyroid , m74-c2qz0c Her mcguire fibromyalg 60b0ba ia ,osteoporo sis ) 2013-12-18 2013-12-18 2 Weeks nullFlavo Bria, 35f2d6 6c-7 [facility] 14:45:00 14:45:00 (Reason: patti Nolasco MD 118-4906-8 l Thyroid , aee-h9j355 Her mcguire fibromyalg 40747c ia ,osteoporo sis ) 2013-12-18 2013-12-18 2 Weeks nullFlavo Brai, 6846d4 45-3 [facility] 14:45:00 14:45:00 (Reason: patti Nolasco MD u90-6572-i l Thyroid , 8ad-3d4b20 Her mcguire fibromyalg 28cf4d ia ,osteoporo sis ) 2013-12-18 2013-12-18 2 Weeks nullFlavo Bria, 4l6034 24-0 [facility] 14:45:00 14:45:00 (Reason: patti Nolasco MD ab5-4029-9 l Thyroid , 2be-960c52 Her mcguire fibromyalg 744248 ia ,osteoporo sis ) 2013-12-18 2013-12-18 2 Weeks nullFlavo Bria, 82c0c6 a4-9 [facility] 14:45:00 14:45:00 (Reason: patti Nolasco MD x71-6e58-y l Thyroid , z76-0wwt68 Her mcguire fibromyalg 130fd0 ia ,osteoporo sis ) 2013-12-18 2013-12-18 2 Weeks nullFlavo Bria, 2e7a78 1c-1 [facility] 14:45:00 14:45:00 (Reason: patti Nolasco MD 991-41de-a l Thyroid , w6v-6ya5z8 Her mcguire fibromyalg 7q1668 ia ,osteoporo sis ) 2013-12-18 2013-12-18 2 Weeks nullFlavo Rbia, 05530n db-0 [facility] 14:45:00 14:45:00 (Reason: patti Nolasco MD 524-410e-a l Thyroid , gladys-eca3b2 Her mcguire fibromyalg 82d1f2 ia ,osteoporo sis ) 2013-12-18 2013-12-18 2 Weeks nullFlavo Bria, b2c4f6 8d-d [facility] 13:45:00 13:45:00 (Reason: patti Nolasco MD 5db-4b0a-b l Thyroid , 9y6-6gg999 Her mcguire fibromyalg 3f7d33 ia ,osteoporo sis ) 2013-12-18 2013-12-18 2 Weeks nullFlavo Bria, 43l287 b9-f [facility] 13:45:00 13:45:00 (Reason: patti Nolasco MD 1bf-4fa1-9 l Thyroid , 06d-7dq761 Her mcguire fibromyalg 9e6d70 ia ,osteoporo sis ) 2013-12-18 2013-12-18 2 Weeks nullFlavo Bria, 0a2e26 5b-8 [facility] 13:45:00 13:45:00 (Reason: patti Nolasco MD sebas-44da-a l Thyroid , g06-v996ac Her mcguire fibromyalg 78o318 ia ,osteoporo sis ) 2013-12-18 2013-12-18 2 Weeks nullFlavo Bria, u1058s ac-9 [facility] 13:45:00 13:45:00 (Reason: patti Nolasco MD 87a-452a-9 l Thyroid , ca7-adeeb5 Her mcguire fibromyalg f8f5ca ia ,osteoporo sis ) 2013-12-18 2013-12-18 2 Weeks nullFlavo Bria, lk065n 53-5 [facility] 13:45:00 13:45:00 (Reason: patti Nolasco MD 039-4e09-8 l Thyroid , 42c-c1e8c4 Her mcguire fibromyalg b27abd ia ,osteoporo sis ) 2013-12-18 2013-12-18 2 Weeks nullFlavo Bria, 2813e8 b2-3 [facility] 13:45:00 13:45:00 (Reason: patti Nolasco MD fb5-47ba-8 l Thyroid , 7r0-00i2s7 Her mcguire fibromyalg d15a34 ia ,osteoporo sis ) 2013-12-18 2013-12-18 2 Weeks nullFlavo Bria, 60bb36 5e-3 [facility] 13:45:00 13:45:00 (Reason: patti Nolasco MD b7c-039z-i l Thyroid , n3y-h5dz8c Her mcguire fibromyalg 3082d9 ia ,osteoporo sis ) 2013-12-18 2013-12-18 2 Weeks nullFlavo Bria, 0a2e26 5b-8 [facility] 13:45:00 13:45:00 (Reason: patti Nolasco MD sebas-44da-a l Thyroid , c03-i310db Her mcguire fibromyalg 67q316 ia ,osteoporo sis ) 2013-12-18 2013-12-18 2 Weeks nullFlavo Bria, b2c4f6 8d-d [facility] 13:45:00 13:45:00 (Reason: patti Nolasco MD 5db-4b0a-b l Thyroid , 8a5-7hn661 Her mcguire fibromyalg 3f7d33 ia ,osteoporo sis ) 2013-12-18 2013-12-18 2 Weeks nullFlavo Bria, 91j918 b9-f [facility] 13:45:00 13:45:00 (Reason: patti Nolasco MD 1bf-4fa1-9 l Thyroid , 06d-0sd988 Her mcguire fibromyalg 9e6d70 ia ,osteoporo sis ) 2013-12-18 2013-12-18 2 Weeks nullFlavo Bria, fr042c 53-5 [facility] 13:45:00 13:45:00 (Reason: patti Nolasco MD 039-4e09-8 l Thyroid , 42c-c1e8c4 Her mcguire fibromyalg b27abd ia ,osteoporo sis ) 2013-12-18 2013-12-18 2 Weeks nullFlavo Bria, 2813e8 b2-3 [facility] 13:45:00 13:45:00 (Reason: patti Nolasco MD fb5-47ba-8 l Thyroid , 0h1-79z2i9 Her mcguire fibromyalg d15a34 ia ,osteoporo sis ) 2013-12-18 2013-12-18 2 Weeks nullFlavo Bria, 60bb36 5e-3 [facility] 13:45:00 13:45:00 (Reason: patti Nolasco MD z4e-166f-m l Thyroid , q0d-e7jt0f Her mcguire fibromyalg 3082d9 ia ,osteoporo sis ) 2013-12-18 2013-12-18 2 Weeks nullFlavo Bria, k0389q ac-9 [facility] 13:45:00 13:45:00 (Reason: patti Nolasco MD 87a-452a-9 l Thyroid , ca7-adeeb5 Her mcguire fibromyalg f8f5ca ia ,osteoporo sis ) 2013-12-06 2013-12-06 Unknown nullFlavo Bria, 258450 ad-4 [facility] 01:43:00 01:43:00 patti Nolasco MD 8t6-163d-6 l 348-v8t727 Linda nn 589252 7760-08-30 2013-12-06 Unknown nullFlavo Bria, e83dff d0-e [facility] 01:43:00 01:43:00 r Gaurav GRANT 300-429c-b l 45f-598063 [place] nn af9b3b 2013-12-06 2013-12-06 Unknown nullFlavo Bria, 91n891 5c-a [facility] 01:43:00 01:43:00 r Gaurav GRANT 76c-48f1-9 l bce-8270ee [place] nn 2p6061 2013-12-06 2013-12-06 Unknown nullFlavo Bria, 113d1c 61-b [facility] 01:43:00 01:43:00 r Gaurav GRANT fa7-46d0-b l 5bc-382318 [facility] nn a6eb61 2013-12-06 2013-12-06 Unknown nullFlavo Bria, c3b05a da-e [facility] 01:43:00 01:43:00 r Gaurav GRANT g3e-7844-9 l 941-070deb [facility] nn c869b7 2013-12-06 2013-12-06 Unknown nullFlavo Bria, 63cb93 42-9 [facility] 01:43:00 01:43:00 r Gaurav GRANT z57-77x0-k l ccc-85f5b7 [place] nn 30301i 2013-12-06 2013-12-06 Unknown nullFlavo Bria, d575e4 8b-6 [facility] 01:43:00 01:43:00 r Gaurav GRANT 0q0-0f62-0 l 871-b924cb [facility] nn 344f73 2013-12-06 2013-12-06 Unknown nullFlavo Bria, p6138g b4-6 [facility] 01:43:00 01:43:00 r Gaurav GRANT 888-4ae5-b l j8e-f8617a [place] nn c37ef3 2013-12-06 2013-12-06 Unknown nullFlavo Bria, 0e07dd 34-5 [facility] 01:43:00 01:43:00 r Gaurav GRANT 4h3-6773-0 l 388-45959p [facility] nn afcab7 2013-12-06 2013-12-06 Unknown nullFlavo Bria, f88d90 f9-e [facility] 01:43:00 01:43:00 r Gaurav GRANT 691-42f5-9 l 4dd-5ecd20 [facility] nn f98f84 2013-12-06 2013-12-06 Unknown nullFlavo Bria, 5z883d 28-5 [facility] 01:43:00 01:43:00 r Gaurav GRANT v3f-0w59-f l 72e-217f96 Linda nn 36439x 2013-12-06 2013-12-06 Unknown nullFlavo Bria, 75797b 17-0 [facility] 01:43:00 01:43:00 r Gaurav GRANT 4fd-43eb-b l d8j-2ehfo6 [facility] nn f926c7 2013-12-06 2013-12-06 Unknown nullFlavo Bria, 5d305d 09-1 [facility] 01:43:00 01:43:00 r Gaurav GRANT 9be-44a0-8 l u28-9060sw [facility] nn f5a5f7 2013-12-06 2013-12-06 Unknown nullFlavo Bria, sqw826 61-c [facility] 01:43:00 01:43:00 r Gaurav GRANT z1c-3601-0 l v6k-xi1f12 [facility] nn a99a9f 2013-12-06 2013-12-06 Unknown nullFlavo Bria, 9521d2 42-2 [facility] 01:43:00 01:43:00 r Gaurav GRANT 6j8-900o-0 l v3t-8y86p8 [facility] nn f79d2f 2013-12-06 2013-12-06 Unknown nullFlavo Bria, a1902v 72-d [facility] 01:43:00 01:43:00 r Gaurav GRANT 339-4ba1-9 l ddc-afee6c [facility] nn 48a7aa 2013-12-06 2013-12-06 Unknown nullFlavo Bria, 96x145 5c-a [facility] 01:43:00 01:43:00 r Gauarv GRANT 76c-48f1-9 l bce-8270ee [facility] nn 1z8779 2013-12-06 2013-12-06 Unknown nullFlavo Bria, 0e07dd 34-5 [facility] 01:43:00 01:43:00 r Gaurav GRANT 3c0-1554-5 l 388-19645i [facility] nn afcab7 2013-12-06 2013-12-06 Unknown nullFlavo Bria, e83dff d0-e [facility] 01:43:00 01:43:00 r Gaurav GRANT 300-429c-b l 45f-869384 [facility] nn af9b3b 2013-12-06 2013-12-06 Unknown nullFlavo Bria, c3b05a da-e [facility] 01:43:00 01:43:00 r Gaurav GRANT u8o-0843-2 l 941-070deb [facility] nn c869b7 2013-12-06 2013-12-06 Unknown nullFlavo Bria, 63cb93 42-9 [facility] 01:43:00 01:43:00 r Gaurav GRANT y92-14a4-m l ccc-85f5b7 [facility] nn 47526h 2013-12-06 2013-12-06 Unknown nullFlavo Bria, 845968 ad-4 [facility] 01:43:00 01:43:00 r Gaurav GRANT 8h3-541c-4 l 348-u3h272 [facility] nn 676361 3332-08-30 2013-12-06 Unknown nullFlavo Bria, 113d1c 61-b [facility] 01:43:00 01:43:00 r Gaurav GRANT fa7-46d0-b l 5bc-031118 [facility] nn a6eb61 2013-12-06 2013-12-06 Unknown nullFlavo Bria, d575e4 8b-6 [facility] 01:43:00 01:43:00 r Gaurav GRANT 5r1-0g30-6 l 871-b924cb [facility] nn 344f73 2013-12-06 2013-12-06 Unknown nullFlavo Bria, a4186v b4-6 [facility] 01:43:00 01:43:00 r Gaurav GRANT 888-4ae5-b l c0x-g1600c [facility] nn c37ef3 2013-12-06 2013-12-06 Unknown nullFlavo Bria, f88d90 f9-e [facility] 01:43:00 01:43:00 r Gaurav GRANT 691-42f5-9 l 4dd-5ecd20 [facility] nn f98f84 2013-12-06 2013-12-06 Unknown nullFlavo Bria, 10252b 17-0 [facility] 01:43:00 01:43:00 r Gaurav GRANT 4fd-43eb-b l d2c-1unlo8 [facility] nn f926c7 2013-12-06 2013-12-06 Unknown nullFlavo Bria, 4x425s 28-5 [facility] 01:43:00 01:43:00 r Gaurav GRANT g7c-7o39-v l 72e-217f96 [place] nn 36780e 2013-12-06 2013-12-06 Unknown nullFlavo Bria, 9c364f 09-1 [facility] 01:43:00 01:43:00 r Gaurav GRANT 9be-44a0-8 l e40-8543vc [facility] nn f5a5f7 2013-12-06 2013-12-06 Unknown nullFlavo Bria, xcp665 61-c [facility] 01:43:00 01:43:00 r Gaurav GRANT o0p-7442-0 l k4j-kp0n97 [facility] nn a99a9f 2013-12-06 2013-12-06 Unknown nullFlavo Bria, o2753z 72-d [facility] 01:43:00 01:43:00 r Gaurav GRANT 339-4ba1-9 l ddc-afee6c [facility] nn 48a7aa 2013-12-06 2013-12-06 Unknown nullFlavo Bria, 9521d2 42-2 [facility] 01:43:00 01:43:00 r Gaurav GRANT 8h9-732j-1 l g1q-7e05d6 [facility] nn f79d2f 2013-12-06 2013-12-06 Unknown nullFlavo Bria, 91b9fe 0e-8 [facility] 00:43:00 00:43:00 r Gaurav GRANT b9n-5r63-3 l p5p-282w71 [facility] nn 25d4ff 2013-12-06 2013-12-06 Unknown nullFlavo Bria, f8d58a 6e-9 [facility] 00:43:00 00:43:00 r Gaurav GRANT 5j6-8mo5-1 l 903-34e688 [facility] nn 17i754 2013-12-06 2013-12-06 Unknown nullFlavo Bria, 37c7d5 cf-4 [facility] 00:43:00 00:43:00 r Gaurav GRANT d1k-7049-j l bc8-e44b4d [facility] nn f616b2 2013-12-06 2013-12-06 Unknown nullFlavo Bria, 21v748 16-0 [facility] 00:43:00 00:43:00 r Gaurav GRANT x96-3j5x-p l 103-9079f9 [place] nn 923104 5511-08-30 2013-12-06 Unknown nullFlavo Bria, 523344 0a-a [facility] 00:43:00 00:43:00 r Gaurav GRANT 922-456b-9 l 1fd-bce3c8 [facility] nn d31d53 2013-12-06 2013-12-06 Unknown nullFlavo Bria, 08a22d c6-0 [facility] 00:43:00 00:43:00 r Gaurav GRANT 6cb-4b13-8 l w30-706369 [facility] nn ddf2c0 2013-12-06 2013-12-06 Unknown nullFlavo Bria, 6b8fe0 5b-0 [facility] 00:43:00 00:43:00 r Gaurav GRANT 123-4f83-9 l 429-981358 [facility] nn 0l256c 2013-12-06 2013-12-06 Unknown nullFlavo Bria, e7fb72 21-7 [facility] 00:43:00 00:43:00 r Gaurav GRANT ddb-4d49-a l susan-bd8e4b [facility] nn 4a27e7 2013-12-06 2013-12-06 Unknown nullFlavo Bria, 91b9fe 0e-8 [facility] 00:43:00 00:43:00 r Gaurav GRANT t8b-4a99-9 l t9l-784q58 [facility] nn 25d4ff 2013-12-06 2013-12-06 Unknown nullFlavo Bria, 81q361 16-0 [facility] 00:43:00 00:43:00 r Gaurav GRANT o65-3j3f-r l 103-9079f9 [place] nn 953658 0524-08-30 2013-12-06 Unknown nullFlavo Bria, f8d58a 6e-9 [facility] 00:43:00 00:43:00 r Gaurav GRANT 1p5-1fr7-2 l 903-36z724 [facility] nn 73d400 2013-12-06 2013-12-06 Unknown nullFlavo Bria, 37c7d5 cf-4 [facility] 00:43:00 00:43:00 r Gaurav GRANT g0u-5556-g l bc8-e44b4d [facility] nn f616b2 2013-12-06 2013-12-06 Unknown nullFlavo Bria, 08a22d c6-0 [facility] 00:43:00 00:43:00 r Gaurav GRANT 6cb-4b13-8 l j46-855233 [facility] nn ddf2c0 2013-12-06 2013-12-06 Unknown nullFlavo Bria, 6b8fe0 5b-0 [facility] 00:43:00 00:43:00 r Gaurav GRANT 123-4f83-9 l 429-397259 [facility] nn 9b652t 2013-12-06 2013-12-06 Unknown nullFlavo Bria, e7fb72 21-7 [facility] 00:43:00 00:43:00 r Gaurav GRANT ddb-4d49-a l susan-bd8e4b [facility] nn 4a27e7 2013-12-06 2013-12-06 Unknown nullFlavo Bria, 575162 0a-a [facility] 00:43:00 00:43:00 r Gaurav GRANT 922-456b-9 l 1fd-bce3c8 [place] nn d31d53 2013-12-05 2013-12-05 [facility], [facility] 19:43:00 19:43:00 Gaurav Nolasco MD alWork s 2013-12-04 2013-12-04 Annual nullFlavo Bria, eba8ad 76-d [facility] 15:15:00 15:15:00 Pysical r Gaurav GRANT i70-3990-q l 155-2l792w [place] nn 5cae58 2013-12-04 2013-12-04 Annual nullFlavo Bria, 03dd05 08-a [facility] 15:15:00 15:15:00 Pysical r Gaurav GRANT 0u2-40x1-6 l 84e-dad18f [facility] nn 7kf825 2013-12-04 2013-12-04 Annual nullFlavo Bria, 72dc70 9c-f [facility] 15:15:00 15:15:00 Pysical r Gaurav GRANT eb8-4a9b-a l x06-i5335e [place] nn 70cbac 2013-12-04 2013-12-04 Annual nullFlavo Bria, 437d19 42-a [facility] 15:15:00 15:15:00 Pysical r Gaurav GRANT c59-7352-n l ebb-fc3b55 [place] nn 5f7097 2013-12-04 2013-12-04 Annual nullFlavo Bria, 03ecce bc-d [facility] 15:15:00 15:15:00 Pysical r Gaurav GRANT 19f-48ab-8 l 7p9-2j5je2 [place] nn 6c03d0 2013-12-04 2013-12-04 Annual nullFlavo Bria, 6dd2c0 7e-1 [facility] 15:15:00 15:15:00 Pysical r Gaurav GRANT w58-97ma-y l 154-7k1160 [place] nn f4e40c 2013-12-04 2013-12-04 Annual nullFlavo Bria, g1v637 51-2 [facility] 15:15:00 15:15:00 Pysical patti Nolasco MD i02-44x9-k l 316-196cfa [place] nn jbw206 2013-12-04 2013-12-04 Annual nullFlavo Bria, c8e7f0 ef-4 [facility] 15:15:00 15:15:00 Pysical r Gaurav GRANT 71e-4423-b l w5a-567k77 [place] nn 9fd014 2013-12-04 2013-12-04 Annual nullFlavo Bria, 0b7de6 7f-8 [facility] 15:15:00 15:15:00 Pysical r Gaurav GRANT 84c-4d37-8 l 2w1-1x7344 [place] nn 0049e3 2013-12-04 2013-12-04 Annual nullFlavo Bria, 9z126n c5-1 [facility] 15:15:00 15:15:00 Pysical r Gaurav GRANT f31-3g53-5 l h29-1n9qa4 [place] nn 8468b6 2013-12-04 2013-12-04 Annual nullFlavo Bria, 6e4b8e dc-9 [facility] 15:15:00 15:15:00 Pysical r Gaurav GRANT 877-43d3-8 l 746-jy3798 Linda nn 886508 2069-08-28 2013-12-04 Annual nullFlavo Bria, 677616 be-6 [facility] 15:15:00 15:15:00 Pysical r Gaurav GRANT 6x8-4i45-4 l shaan-d94cf1 [place] nn b12c91 2013-12-04 2013-12-04 Annual nullFlavo Bria, k6j319 58-8 [facility] 15:15:00 15:15:00 Pysical r Gaurav GRANT 291-44ff-a l 829-4fdf4d [place] nn 86975p 2013-12-04 2013-12-04 Annual nullFlavo Bria, 470005 3f-9 [facility] 15:15:00 15:15:00 Pysical r Gaurav GRANT 500-4491-8 l 689-65d92e [place] nn 39304b 2013-12-04 2013-12-04 Annual nullFlavo Bria, c19e9e 15-1 [facility] 15:15:00 15:15:00 Pysical r Gaurav GRANT 366-4cf2-b l ecf-d4f5a7 [place] nn g22856 2013-12-04 2013-12-04 Annual nullFlavo Bria, ad39a6 31-f [facility] 15:15:00 15:15:00 Pysical r Gaurav GRANT 556-4204-a l 505-97798z [place] nn 143a24 2013-12-04 2013-12-04 Annual nullFlavo Bria, 03dd05 08-a [facility] 15:15:00 15:15:00 Pysical r Gaurav GRANT 3o5-31d0-0 l 84e-dad18f [place] nn 7xx691 2013-12-04 2013-12-04 Annual nullFlavo Bria, c8e7f0 ef-4 [facility] 15:15:00 15:15:00 Pysical r Gaurav GRANT 71e-4423-b l c0w-730d82 [place] nn 5dg750 2013-12-04 2013-12-04 Annual nullFlavo Bria, eba8ad 76-d [facility] 15:15:00 15:15:00 Pysical r Gaurav GRANT s88-9807-e l 155-6m560k [place] nn 5cae58 2013-12-04 2013-12-04 Annual nullFlavo Bria, 437d19 42-a [facility] 15:15:00 15:15:00 Pysical r Gaurav GRANT p61-4587-y l ebb-fc3b55 [place] nn 1y9678 2013-12-04 2013-12-04 Annual nullFlavo Bria, 03ecce bc-d [facility] 15:15:00 15:15:00 Pysical r Gaurav GRANT 19f-48ab-8 l 8x5-7y1kf0 [place] nn 6c03d0 2013-12-04 2013-12-04 Annual nullFlavo Bria, ad39a6 31-f [facility] 15:15:00 15:15:00 Pysical r Gaurav GRNAT 556-4204-a l 505-00449a [place] nn 143a24 2013-12-04 2013-12-04 Annual nullFlavo Bria, 72dc70 9c-f [facility] 15:15:00 15:15:00 Pysical r Gaurav GRANT eb8-4a9b-a l o87-a5760z [place] nn 70cbac 2013-12-04 2013-12-04 Annual nullFlavo Bria, 6dd2c0 7e-1 [facility] 15:15:00 15:15:00 Pysical r Gaurav GRANT r91-10tw-i l [id number] Linda nn f4e40c 2013-12-04 2013-12-04 Annual nullFlavo Bria, k2o280 51-2 Memoria 15:15:00 15:15:00 Pysical r Gaurav GRANT b15-97q1-o l 316-196cfa Linda nn qvq064 2013-12-04 2013-12-04 Annual nullFlavo Bria, 0b7de6 7f-8 Memoria 15:15:00 15:15:00 Pysical r Gaurav GRANT 84c-4d37-8 l 2k6-9u5401 Linda nn 0049e3 2013-12-04 2013-12-04 Annual nullFlavo Bria, 6e4b8e dc-9 Memoria 15:15:00 15:15:00 Pysical r Gaurav GRANT 877-43d3-8 l [id number]-jz2582 Linda nn 327471 3367-08-28 2013-12-04 Annual nullFlavo Bria, 1y150b c5-1 Memoria 15:15:00 15:15:00 Pysical r Gaurav GRANT q20-8u76-6 l t83-4p6ec2 Linda nn 8468b6 2013-12-04 2013-12-04 Annual nullFlavo Bria, 514597 be-6 Memoria 15:15:00 15:15:00 Pysical r Gaurav GRANT 4i6-7i78-4 l shaan-d94cf1 Linda nn b12c91 2013-12-04 2013-12-04 Annual nullFlavo Bria, n7v881 58-8 Memoria 15:15:00 15:15:00 Pysical r Gaurav GRANT 291-44ff-a l 829-4fdf4d Linda nn 48444y 2013-12-04 2013-12-04 Annual nullFlavo Bria, c19e9e 15-1 Memoria 15:15:00 15:15:00 Pysical r Gaurav GRANT 366-4cf2-b l ecf-d4f5a7 Linda nn [id number] 2013-12-04 2013-12-04 Annual nullFlavo Bria, 228895 3f-9 Memoria 15:15:00 15:15:00 Pysical r Gaurav GRANT 500-4491-8 l 689-65d92e Linda nn 96161n 2013-12-04 2013-12-04 Annual nullFlavo Bria, c1t925 0f-6 Memoria 14:15:00 14:15:00 Pysical r Gaurav GRANT e0j-5304-2 l db1-5a37e3 Linda nn [id number] 2013-12-04 2013-12-04 Annual nullFlavo Bria, ca6b95 c5-e Memoria 14:15:00 14:15:00 Pysical r Gaurav GRANT 748-4c60-9 l 7a5-0c5449 Linda nn a894d1 2013-12-04 2013-12-04 Annual nullFlavo Bria, 8b3daa c3-9 Memoria 14:15:00 14:15:00 Pysical r Gaurav GRANT ecb-48db-9 l 4m2-12183c Linda nn f225d4 2013-12-04 2013-12-04 Annual nullFlavo Bria, 7ecb9d 6a-d Memoria 14:15:00 14:15:00 Pysical r Gaurav GRANT 960-420a-b l diego-678efe Linda nn 573bf1 2013-12-04 2013-12-04 Annual nullFlavo Bria, cs220n 67-1 Memoria 14:15:00 14:15:00 Pysical r Gaurav GRANT 78d-47af-a l [id number] Linda nn 301c41 2013-12-04 2013-12-04 Annual nullFlavo Bria, jx5372 9c-a Memoria 14:15:00 14:15:00 Pysical r Gaurav GRANT p46-609i-0 l [id number] Linda nn 6eeef4 2013-12-04 2013-12-04 Annual nullFlavo Bria, 730082 97-b Memoria 14:15:00 14:15:00 Pysical patti Nolasco MD 9k6-9n62-h l 175-923b55 Linda nn 6i582a 2013-12-04 2013-12-04 Annual nullFlavo Bria, 8b3daa c3-9 Memoria 14:15:00 14:15:00 Pysical r Gaurav GRANT ecb-48db-9 l 7s4-34388w Linda nn f225d4 2013-12-04 2013-12-04 Annual nullFlavo Bria, z0g785 0f-6 Memoria 14:15:00 14:15:00 Pysical patti Nolasco MD e6z-2569-4 l db1-5a37e3 Linda nn [id number] 2013-12-04 2013-12-04 Annual nullFlavo Bria, ca6b95 c5-e [facility]oria 14:15:00 14:15:00 Pysical patti Nolasco MD 748-4c60-9 l 6z2-1t2770 Linda nn a894d1 2013-12-04 2013-12-04 Annual nullFlavo Bria, zj575w 67-1 [facility] 14:15:00 14:15:00 Pysical patti Nolasco MD 78d-47af-a l 735-6h2360 Linda nn 301c41 2013-12-04 2013-12-04 Annual nullFlavo Bria, gn6518 9c-a [facility]oria 14:15:00 14:15:00 Pysical patti Nolasco MD k89-183p-9 l s61-631852 Linda nn 6eeef4 2013-12-04 2013-12-04 Annual nullFlavo Bria, 701205 97-b [facility] 14:15:00 14:15:00 Pysical patti Nolasco MD 0x4-7n21-v l 175-923b55 Linda nn 1s541f 2013-12-04 2013-12-04 Annual nullFlavo Bria, 7ecb9d 6a-d [facility] 14:15:00 14:15:00 Pysical patti Nolasco MD 960-420a-b l diego-678efe Linda nn 573bf1 2013-12-04 2013-12-04 Outpatient Bria Fraser, 146 782 [facility] 09:15:00 09:15:00 Gaurav Nolasco MD alWork s Results Test Description Test Time Test Comments Results Result Sourc e Comments [place], 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 /FREE T4 IF INDICATED 2017-12-13 06:42:00 Test Item Value Reference Range Interpretation Comme nts THYROID STIMULATING HORMONE (BEAKER) (test code = 772) 2.89 uIU/mL 0.35-4.94 BASIC METABOLIC [id number] 06:22:00 Test Item Value Reference Range Interpretation [...] PATIEN TS. CBC W/PLT COUNT & AUTO [id number] 06:14:00 Test Item Value Reference Range Interpretation [...] code = 2801) LACTIC ACID, VENOUS, WHOLE [id number] 15:27:00 Test Item Value Reference Range Interpretation Comments LACTATE BLOOD VENOUS (2) (BEAKER) 1.1 mmol/L 0.5-2.2 (test code = 2872) Effective 08/11/2015: Units/Reference Range ChangeNew: 0.5-2.2 mmol/L Previous: 5- 20 mg/dLBASIC METABOLIC [id number] 13:31:00 Test Item Value Reference Range Interpretation [...] PATIEN TS. 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 Fluoroscopy time 15.2 seconds. Fluoroscopy was not performed by the undersigned. Refer to procedure notes for diagnostic and therapeutic detail. Signed: Tiara Pedersen Verified Date/Time: 12/11/2017 11:03:55 Reading Location: [facility] Radiology Reading Room TISSUE [id number] 17:14:00Surgical Pathology Report Case: [id number] Authorizing Provider: Renetta Avery MD Collected: 11/30/2017 1327 Ordering Location: [facility] PERIOPERATIVE Received: 11/30/2017 1424 SERVICES Pathologist:Susan Ramos MD Specimen: Explant, hardware NEURAL STIMULATOR, REMOVAL: - HARDWARE IDENTIFIED (GROSSDIAGNOSIS) Signing Pathologist Direct Phone Line: [phone] signed by Susan Ramos MD on 12/04/2017 at 5:14 [id number] pain disorderHardware, neural stimulator The specimen is received in a fluidless container labeled with patient information and labeled "hardware neural stimulator" and consists of a neural stimulator battery measuring 5.2 x 5 x 0.6 cm with two attached leads measuring 60 cm in length x 0.1 cm in diameter. Specimen serial number [id number]. The specimen is submitted for gross identification only. CG/plMR, SPINE, THORACIC, [id number] 11:58:00FINAL REPORT MR thoracic and lumbar spine with and without contrast INDICATION:Status post spinal cord stimulator explant. TECHNIQUE: MRI of the thoracic and lumbar spine utilizing the following sequences: Sagittal T1, T2, STIR; axial T1 and T2, postcontrast sagittal and axial T1with fat suppression. Due to PACS downtime, there was delay in transmission of this study to PACS. It was available for dictation by the interpreting [...] otherwise maintained. There is multilevel degenerative disc diseaseand facet arthropathy. There are small paracentral disc protrusions at T1 to and T2-3, a small central disc protrusion at T7-8, and a central disc osteophyte complexes at T10-11 and T11-12 with mild canal stenosis. Neural foraminal stenoses are optimally mild to moderate in degree T10-11 and T11-12 onthe right, with other mild foraminal stenoses. Bilateral dependent lung opacities most likely reflect atelectasis in this patient with anesthesia related support hardware in place. Lumbar:There has been lumbosacral spinal fusion from L1 to S1 [...] The conus medullaris is unremarkable and terminates atL2. There is universal degenerative disc disease and residual facet arthropathy with disc osteophytecomplexes at all levels. Canal stenosis appears mild at L1-2. Neural foraminal stenoses are moderateto severe at L5-S1, suboptimally depicted due to artifacts. Foraminal stenoses appear mild at L2-3, L3-4, and L4-5 and minimal at L1-2 bilaterally. There is a partially imaged exophytic cystic appearing right renal lesion for which dedicated imaging is suggested. Small bilateral lower pole T2 hyperintense lesions statistically likely reflect cysts. There is a left iliac wing suspected hemangioma. There is paraspinal muscle deconditioning. IMPRESSION: Thoracic spine: [...] dedicated imaging. Signed: Autumn Watson MDRort Verified Date/Time:12/04/2017 11:58:05 Reading Location: [address] Neuro Reading Room MR, SPINE, LUMBAR, WITH 2017-12-04 11:58:00FINAL REPORT MR thoracic and lumbar spine with and without contrast INDICATION:Status post spinal cord stimulator explant. TECHNIQUE: MRI of the thoracic and lumbar spine utilizing the following sequences: Sagittal T1, T2, STIR; axial T1 and T2, postcontrast sagittal and axial T1with fat suppression. Due to PACS downtime, there was delay in transmission of this study to PACS. It was available for dictation by the interpreting [...] otherwise maintained. There is multilevel degenerative disc diseaseand facet arthropathy. There are small paracentral disc [...] anesthesia related support hardware in place. Lumbar:There has been lumbosacral spinal fusion from L1 to S1 with bilateral rods and screws. There has been dorsal decompression from L2-3 to L5-S1. Artifacts from hardware limit assessment of the canal and neural foramina. There is mild anterolisthesis at L5-S1. There is right convex upper and left convex lower lumbar spine curvature. There are multilevel degenerative endplate changes, most notable at L5-S1. Vertebral h eight and alignment are otherwise maintained. The conus medullaris is unremarkable and terminates atL2. There is universal degenerative disc disease and residual facet arthropathy with disc osteophytecomplexes at all levels. Canal stenosis appears mild at L1-2. Neural foraminal stenoses are moderateto severe at L5-S1, suboptimally depicted due to artifacts. Foraminal stenoses appear mild at L2-3, L3-4, and L4-5 and minimal at L1-2 bilaterally. There is a partially imaged exophytic cystic appearing right renal lesion for which dedicated imaging is suggested. Small bilateral lower pole T2 hyperintense lesions statistically likely reflect cysts. There is a left iliac wing suspected hemangioma. There is paraspinal muscle deconditioning. IMPRESSION: Thoracic spine: [...] dedicated imaging. Signed: Autumn Watson MDReport Verified Date/Time:12/04/2017 11:58:05 Reading Location: [facility] C013V Neuro Reading Room RAD, CHEST, 2 [id number] 16:14:00 Reason for exam:->Chronic Pain DisorderFINAL REPORT INDICATION: Chronic Pain Disorder COMPARISON: May 15, 2017 TECHNIQUE: Chest radiograph, two views, PA and lateral. FINDINGS / IMPRESSION:Mildly enlarged heart shadow is again demonstrated without pulmonary venous congestion or edema. No pneumonia, pneumothorax, orpleural effusion is demonstrated. Osseous structures are notable for partially imaged lumbar fusion hardware. Signed: Roni Barnett MDReport Verified Date/Time: 12/01/2017 16:14:55 Reading Location:[facility] C013X Ortho Consult Reading Room URINALYSIS W/ REFLEX URINE [id number] 10:01:00 Test Item Value Reference Range Interpretation [...] SOURCE(BEAKER) (test code = 2795) BASIC METABOLIC [id number] 09:45:00 Test Item Value Reference Range Interpretation [...] S NOT APPLICABLE FOR DIALYSIS PATIEN TS. [id number] 09:26:00 Test Item Value Reference Range Interpretation Comments PARTIAL THROMBOPLASTIN TIME 36.9 seconds 22.5-36.0 H (BEAKER) (test code = 760) PROTHROMBIN TIME/[id number] 09:25:00 Test Item Value Reference Range Interpretation Comments PROTIME (BEAKER) (test code = 15.0 seconds 11.7-14.7 H 759) INR (BEAKER) (test code = 370) 1.2 <=5.9 RECOMMENDED COUMADIN/WARFARIN INR THERAPY RANGESSTANDARD DOSE: 2.0 - 3.0 Includes: PROPHYLAXIS for venous thrombosis, systemic embolization; TREATMENT for venous thrombosis and/or pulmonary embolus.HIGH RISK: Target INR is 2.5-3.5 for patients with mechanical heart valves.CBC W/PLT COUNT & AUTO [id number] 09:11:00 Test Item Value Reference Range Interpretation [...] (test code = 2801) AFB CULTURE + [id number] 14:00:00 Test Item Value Reference Range Interpretation Comments CULTURE (BEAKER) (test No acid-fast bacilli code = 1095) isolated in 42 days AFB SMEAR (BEAKER) No acid fast bacilli (test code = 994) seen FUNGUS CULTURE + [id number] 15:41:00 Test Item Value Reference Range Interpretation Comments CULTURE (BEAKER) (test No fungus isolated in code = 1095) 28 days FUNGUS SMEAR (BEAKER) No fungi seen (test code = 1406) ANAEROBIC [id number] 04:04:00 Test Item Value Reference Range Interpretation Comments CULTURE (BEAKER) (test No anaerobes isolated code = 1095) SURGICALLY OBTAINED CULTURE + GRAM [id number] 14:12:00 Test Item Value Reference Interpretation Comments [...] (BEAKER) (test code = cocci in clusters 703345) TISSUE [id number] 15:59:00Surgical Pathology Report Case: [id number] Authorizing Provider: Renetta Avery MD Collected: 08/21/2017 1456 Ordering Location: [facility] PERIOPERATIVE Received: 08/22/2017 0819 SERVICES Pathologist:Rebeca Patricia MD Specimen: Explant, HARDWARE HARDWARE, INTRATHECAL PUMP, REMOVAL: - ACID PAINTER, GROSS IDENTIFICATION ONLY Signing Pathologist Direct Phone Line: [phone] signed by Rebeca Patricia MD on 08/22/2017 at 3:59 [facility] [place][id number] pain disorder Hardware The specimen is received in a fluidless container labeled with the patient's information and labeled "hardware" and consists of a programmable pump measuring 8 x 7 x 1.7 cm with a 70 cm lead. The serial number for the programmable pump is "[id number]". The specimen is submitted for gross identification. CG/ew Not performedSPIN/CONCENTRATION [id number] 11:42:00 Test Item Value Reference Range Interpretation Comments CONCENTRATION CHARGED (BEAKER) (test Done code = 2657) [id number] 06:19:00 Test Item Value Reference Range Interpretation [...] = 413) CREATINE KINASE (CK), TOTAL AND [id number] 00:38:00 Test Item Value Reference Range Interpretation Comments CREATINE KINASE TOTAL (BEAKER) 46 U/L 29-200 (test code = 380) CREATINE KINASE-MB (BEAKER) (test 1.0 ng/mL 0.0-6.6 code = 750) CREATINE KINASE-MB INDEX (BEAKER) 2.2 % (test code = 395) CK-MB Reference Range:<6.7 Normal6.7-10.0 Borderline>10.0 AbnormalTROPONIN [id number] 00:38:00 Test Item Value Reference Range Interpretation [...] acute neurological disease, and persistent tachyarrhythmia.HEPATIC FUNCTION [id number] 00:35:00 Test Item Value Reference Range Interpretation [...] code = 8 U/L 6-55 347) PROTHROMBIN TIME/[id number] 00:25:00 Test Item Value Reference Range Interpretation Comments PROTIME (BEAKER) (test code = 15.9 seconds 11.7-14.7 H 759) INR (BEAKER) (test code = 370) 1.3 <=5.9 RECOMMENDED COUMADIN/WARFARIN INR THERAPY RANGESSTANDARD DOSE: 2.0 - 3.0 Includes: PROPHYLAXIS for venous thrombosis, systemic embolization; TREATMENT for venous thrombosis and/or pulmonary embolus.HIGH RISK: Target INR is 2.5-3.5 for patients with mechanical heart valves.PLATELET [id number] 12:50:00 Test Item Value Reference Range Interpretation Comments PLATELET COUNT (BEAKER) (test 197 K/CU MM 150-450 code = 756) BASIC METABOLIC [id number] 11:36:00 Test Item Value Reference Range Interpretation [...] DIALYSIS PATIEN TS. URINALYSIS W/ REFLEX URINE [id number] 11:28:00 Test Item Value Reference Range Interpretation [...] = 516) SOURCE(BEAKER) (test code = 2795) CBC W/PLT COUNT & AUTO [id number] 11:27:00 Test Item Value Reference Range Interpretation [...] PERCENT (BEAKER) (test code = 2801) POCT-GLUCOSE [id number] 08:26:00 Test Item Value Reference Range Interpretation Comments POC-GLUCOSE METER 105 mg/dL 70-110 TESTED AT [facility] 67[address] (BEAKER) (test code = [address] [place] 1538) [address] BASIC METABOLIC [id number] 06:24:00 Test Item Value Reference Range Interpretation [...] (BEAKER) (test code = 413) BASIC METABOLIC [id number] 05:47:00 Test Item Value Reference Range Interpretation [...] WBC 0-0 (BEAKER) (test code = 413) [id number] 05:12:00 Test Item Value Reference Range Interpretation Comments PHOSPHORUS (BEAKER) (test code = 3.8 mg/dL 2.3-4.7 604) [id number] 05:12:00 Test Item Value Reference Range Interpretation Comments MAGNESIUM (BEAKER) (test code = 1.6 mg/dL 1.6-2.6 627) BASIC METABOLIC [id number] 05:12:00 Test Item Value Reference Range Interpretation [...] APPLICABLE FOR DIALYSIS PATIEN TS. HEPATIC FUNCTION [id number] 05:12:00 Test Item Value Reference Range Interpretation [...] 6-55 347) CBC W/PLT COUNT & AUTO [id number] 04:32:00 Test Item Value Reference Range Interpretation [...] 0-1 PERCENT (BEAKER) (test code = 2801) [id number] 09:47:00 Test Item Value Reference Range Interpretation Comments PHOSPHORUS (BEAKER) (test code = 3.7 mg/dL 2.3-4.7 604) [id number] 09:47:00 Test Item Value Reference Range Interpretation Comments MAGNESIUM (BEAKER) (test code = 1.8 mg/dL 1.6-2.6 627) BASIC METABOLIC [id number] 09:47:00 Test Item Value Reference Range Interpretation [...] APPLICABLE FOR DIALYSIS PATIEN TS. HEPATIC FUNCTION [id number] 09:47:00 Test Item Value Reference Range Interpretation [...] 6-55 347) CBC W/PLT COUNT & AUTO [id number] 09:16:00 Test Item Value Reference Range Interpretation [...] code = 2801) RAD, HAND, 2 VIEWS, [id number] 08:42:00Reason for exam:->history of left forearm/wrist fractureShould this be performed at the bedside?->Yesif both left wrist and forearm can be done portablyFINAL REPORT TECHNIQUE: Frontal and lateral radiographs of the left hand dated 06/19/2017 HISTORY: Left wrist fracture COMPARISON: None. FINDINGS:A splint is in place. There is a nondisplaced fracture of the distal radius. No dislocation. Bones are osteopenic. There are degenerative changes of the first carpal metacarpal joint. No bone erosion or soft tissue nodule seen. No radiodense foreign body or subcutaneous emphysema. IMPRESSION:Nondisplaced fracture of the distal radius. Signed: Tamiko Kenreport Verified Date/Time: 06/19/2017 08:42:08 Reading Location: [facility] Radiology Reading Room RAD, FOREARM, 2 VIEWS, [id number] 08:38:00Reason for exam:->history of left wrist/forearm fractureShould this be performed at the bedside?->Yesif both left wrist and forearm can be done portablyFINAL REPORT TECHNIQUE: Frontal and lateral radiographs of the left forearm dated 06/19/2017 HISTORY: Forearm fracture COMPARISON: None. FINDINGS:A splint is in place, obscuring fine detail. There is a nondisplaced fracture of the distal radius. No dislocation. Bones are osteopenic. Degenerative changes are seen at the elbow joint. No bone erosion or soft tissue nodule seen. No radiodense foreign body or subcutaneous emphysema. IMPRESSION:Nondisplaced fracture of the distal radius. Signed: Tamiko Kerneport Verified Date/Time: 06/19/2017 08:38:49 Reading Location: [facility] Radiology Reading Room POCT-GLUCOSE [id number] 17:06:00 Test Item Value Reference Range Interpretation Comments POC-GLUCOSE METER 102 mg/dL 70-110 TESTED AT [facility] [address] (BEAKER) (test code = [address] [place] 1538) [address] T4, [id number] 14:34:00 Test Item Value Reference Range Interpretation Comments FREE T4 (BEAKER) (test code = 655) 1.13 ng/dL 0.70-1.48 [id number] 12:54:00 Test Item Value Reference Range Interpretation Comments PHOSPHORUS (BEAKER) (test code = 3.0 mg/dL 2.3-4.7 604) [id number] 12:54:00 Test Item Value Reference Range Interpretation Comments MAGNESIUM (BEAKER) (test code = 2.1 mg/dL 1.6-2.6 627) BASIC METABOLIC [id number] 12:54:00 Test Item Value Reference Range Interpretation [...] APPLICABLE FOR DIALYSIS PATIEN TS. HEPATIC FUNCTION [id number] 12:54:00 Test Item Value Reference Range Interpretation [...] code = 9 U/L 6-55 347) HEMOGLOBIN [id number] 12:08:00 Test Item Value Reference Range Interpretation Comments HEMOGLOBIN A1C (AKER) (test code = 5.8 % 4.3-6.1 368) POCT-GLUCOSE [id number] 11:40:00 Test Item Value Reference Range Interpretation Comments POC-GLUCOSE METER 83 mg/dL 70-110 TESTED AT [facility] [address] ([facility]) (test code = [place] [address] 1538) TSH/FREE T4 IF [id number] 11:38:00 Test Item Value Reference Range Interpretation Comments THYROID STIMULATING HORMONE 8.19 uIU/mL 0.35-4.94 H ([facility]) (test code = 772) SEDIMENTATION [id number] 11:20:00 Test Item Value Reference Range Interpretation Comments SEDIMENTATION RATE, ERYTHROCYTE 101 mm/HR 0-40 H ([facility]) (test code = 766) LIPID [id number] 08:58:00 Test Item Value Reference Range Interpretation Comments TRIGLYCERIDES (AKER) (test code = 131 mg/dL 540) CHOLESTEROL ([facility]) (test code = 203 mg/dL 631) HDL CHOLESTEROL ([facility]) (test code 31 mg/dL = 976) LDL CHOLESTEROL CALCULATED ([facility]) 146 mg/dL (test code = 633) Triglyceride Reference Range: Low Risk <150 Borderline 150-199 High Risk 200- 499 Very High Risk >=500Cholesterol Reference Range: Low Risk <200 Borderline 200-239 High Risk >240HDL Cholesterol Reference Range: Low Risk >=60 High Risk <40LDL Cholesterol Reference Range: Optimal <100 Near Optimal 100-129 Borderline 130-159 High 160-189 Very High >=190C-REACTIVE [id number] 08:58:00 Test Item Value Reference Range Interpretation Comments C-REACTIVE PROTEIN (BEAKER) (test 11.13 mg/dL 0.00-0.50 H code = 676) POCT-GLUCOSE [id number] 07:54:00 Test Item Value Reference Range Interpretation Comments POC-GLUCOSE METER 93 mg/dL 70-110 TESTED AT [facility] 67[address] (BEAKER) (test code = [place] [address] 1538) CBC W/PLT COUNT & AUTO [id number] 06:52:00 Test Item Value Reference Range Interpretation [...] 0-1 PERCENT (BEAKER) (test code = 2801) [id number] 06:35:00 Test Item Value Reference Range Interpretation Comments PROTIME (BEAKER) (test code = 15.9 seconds 11.7-14.7 H 759) INR (BEAKER) (test code = 370) 1.3 <=5.9 PARTIAL THROMBOPLASTIN TIME 24.3 seconds 22.5-36.0 (BEAKER) (test code = 760) RECOMMENDED COUMADIN/WARFARIN INR THERAPY RANGESSTANDARD DOSE: 2.0 - 3.0 Includes: PROPHYLAXIS for venous thrombosis, systemic embolization; TREATMENT for venous thrombosis and/or pulmonary embolus.HIGH RISK: Target INR is 2.5-3.5 for patients with mechanical heart valves.POCT-GLUCOSE [id number] 22:11:00 Test Item Value Reference Range Interpretation Comments POC-GLUCOSE METER 101 mg/dL 70-110 TESTED AT [facility] [address] ([facility]) (test code = [address] [facility] 1538) [address] [place], [facility] IN OR/30 MINUTE [id number] 11:15:00Reason for exam:- >Implantation of Intrathecal PumpFINAL REPORT Intraoperative fluoroscopy films performed by the referring physician. Number of images: 2Fluoroscopic time: 25.8 seconds The films were submitted to PACS postprocedure. The radiologist was not present at the time of examination. An interpretation was not requested. The submitted images are nondiagnostic without real-time visualization. Please refer to the performingphysician's dictation for all details regarding the procedure including the submitted images. The rad iologist did not perform fluoroscopy. Signed: Ceci Blake MDReport Verified Date/Time: 06/13/2017 11:15:44 Reading Location: [facility] Radiology Reading Room ALYSIS W/ REFLEX URINE [id number] 16:47:00 Test Item Value Reference Range Interpretation [...] (test code = 2795) RAD, CHEST, 2 [id number] 12:51:00Reason for exam:->PRE OP TESTINGFINAL REPORT Chest, 2 views. Clinical History: PRE OP TESTING Comparison Study:None available Findings: The heart and lungs are within normal limits. The pleural spaces are clear.Degenerative changes are noted. There are postsurgical changes in the spine. A spinal stimulus device is seen. Impression: No active cardiopulmonary disease. Signed: Joaquin Lam MDReport Verified Da te/Time: 05/15/2017 12:51:37 Reading Location: [address] Radiology Reading Room BASI METABOLIC [id number] 12:14:00 Test Item Value Reference Range Interpretation [...] NOT APPLICABLE FOR DIALYSIS PATIEN TS. PROTHROMBIN TIME/[id number] 11:26:00 Test Item Value Reference Range Interpretation Comments PROTIME (BEAKER) (test code = 15.0 seconds 11.7-14.7 H 759) INR (BEAKER) (test code = 370) 1.2 <=5.9 RECOMMENDED COUMADIN/WARFARIN INR THERAPY RANGESSTANDARD DOSE: 2.0 - 3.0 Includes: PROPHYLAXIS for venous thrombosis, systemic embolization; TREATMENT for venous thrombosis and/or pulmonary embolus.HIGH RISK: Target INR is 2.5-3.5 for patients with mechanical heart valves.[id number] 11:26:00 Test Item Value Reference Range Interpretation Comments PARTIAL THROMBOPLASTIN TIME 38.1 seconds 22.5-36.0 H (BEAKER) (test code = 760) CBC W/PLT COUNT & AUTO [id number] 11:18:00 Test Item Value Reference Range Interpretation [...] 0-1 PERCENT (BEAKER) (test code = 2801) Ygynqfwly3054-54-95 15:01:006.7[facility] EmlsklzArizhldur6280-92-82 17:57:0010.0 [facility] AsrtlggRzusiyddh6362-37-33 17:57:75199Swhokydg HermannChemistry 2013-05-05 17:57:83709Bhpcizqp QsljaluMaivmyqeh6239-26-93 17:57:0021[facility] PeiiltpPhlwrtacg7519-64-46 17:57:91387Xifqcjgx RvpjkgiFvidjptkk6250-62-99 17:57:002.6[facility] XtpmwajPhaghwtac5183-00-71 17:57:12560 MEQ/LMem[facility] Tbzweecmm7055-27-46 17:57:004.3 MEQ/LMemorial NqmuwmtAqeuwcrcw6804-96-35 17:57:000.9[facility] FdphvqfCvfchpfol1385-31-83 17:57:003[facility] [place] Bnfndxttt3423-65-02 17:57:00 Test Item Value Reference Range Interpretation Comments BUN/CREAT (test code = BUN/CREAT) 3 10-01 [facility] MybxvpzWgqgetlop6257-73-01 17:57:003.2[facility]annChem[facility] 2013-05-05 17:57:008.4[facility] RlbupuqBxddkjjwm4246-85-65 17:57:0018[facility] PxivigdDjbpvvrjs0062-40-32 17:57:0030[facility] NjlxgoiKeoixqzcl6199-26-11 17:57:0086[facility] GoralorCsoobkjoi4332-44-09 17:57:001.020[facility] [place] Jviduxgjw2178-78-02 17:57:008.0[facility] OybzmvbIxbbhwbig0401-87-20 17:57:0010.0 [facility] NpnlotzWkdfzaixg7009-58-79 17:57:19147Oyxejegq [facility]ann[facility] 2013-05-05 17:57:84495Dciahfde UazqkpdItgnkjwje1385-01-27 17:57:0021[facility] CfsmwqbDwgmofbul3894-98-01 17:57:05456Yfkepsfy YzchoeeQeatwrlnv0676-64-52 17:57:002.6[facility] JivejeoBthupzrjt2788-92-93 17:57:53874 MEQ/L[facility] [place] Fnumopgio1733-71-05 17:57:004.3 MEQ/LMemorial KhuwjuxMgzwnaeek0966-25-64 17:57:000.9[facility] ZjfauxqUesunlrhj3393-09-08 17:57:003[facility] Xybrkhflr4648-44-73 17:57:00 Test Item Value Reference Range Interpretation Comments BUN/CREAT (test code = BUN/CREAT) 3 10-01 [facility] ZddvwnhHrzxufonu8469-47-39 17:57:003.2[facility]ann[facility] 2013-05-05 17:57:008.4[facility] RtlozdyGugokdldn1126-19-71 17:57:0018[facility] CkopyosKpojbztzu0926-32-88 17:57:0030[facility] IvakazcZnuvebzjl1362-53-54 17:57:0086[facility] VtgoxonUawehknvq0532-46-62 17:57:001.020[facility] [place] Owgzgmala2970-50-83 17:57:008.0[facility] NvvtngrZwabriuzly5056-86-38 17:57:0012.2 [facility] MnfwtwjCpmzrogsxh5221-43-58 17:57:0038.4[facility] HermannHematology 2013-05-05 17:57:04844 K/CMMMemorial HtjcxffXumzbhepoh0965-10-99 17:57:0048 [facility] FhfqqumDaozjzwjdd5406-91-43 17:57:0012.2[facility] HermannHematology 2013-05-05 17:57:0038.4[facility] OvtngywSgugmozmjc5708-91-39 17:57:78975 K/CMM [facility] DzuemtxPoopwypmnr2096-54-78 17:57:0048[facility] HermannSerology 2013-05-05 17:57:00PositiveMemorial PtzsxigYpqddxpv8449-20-90 17:57:00Positive Memorial DqppofyOfqqubqypg6535-04-55 17:57:00YellowMemorial HermannUrinalysis 2013-05-05 17:57:00OccasionalMemorial FwktedpRyhkctksbu2631-13-14 17:57:00Yellow Memorial TmxnxksWpmpvwzcot1889-72-22 17:57:00Occ[facility]ionalMem[facility] HermannChemistry 2012-04-24 15:54:08087Sjryhpyw DcsylviEcdnfhufm7400-11-50 15:54:10143Fldbdyxk TdsshmuAyosidazc4710-49-97 15:54:0038[facility] WeshypzFxpeslyue6037-49-78 15:54:0072Mem[facility] FjnyrrlNykrjcgop4451-58-18 15:54:10443 MEQ/LMemorial [facility]erson Dabuxnlpu1538-98-24 15:54:004.1 MEQ/LMemorial SiuyhmwVygpwojbx3639-80-63 15:54:001.0[facility] EvjtgcoCnhrzryhm2561-78-59 15:54:007[facility] Pjyzbcaej7607-12-24 15:54:00 Test Item Value Reference Range Interpretation Comments BUN/CREAT (test code = BUN/CREAT) 7 1 6-25 Memorial SfjvfzoPyjschrnx5193-87-05 15:54:003.7[facility] HermannChemistry 2012-04-24 15:54:008.4[facility] SsxrfwfQjlamvzvs7753-09-60 15:54:0029[facility] BimnpzzMguopgvqc2613-08-90 15:54:0039[facility] NrhvsxaFdimblgxw0520-21-52 15:54:0076Memorial FsvcktoMlbeetuqw2734-47-92 15:54:004.680[facility] [place] Iecqylezht2092-58-57 15:54:0012.4[facility] UiomhtgPvkaluvkoi9442-65-40 15:54:00 37.6Memorial CssgwfcLydldaqpky7808-03-95 15:54:58937 K/CMMMemorial Gerson Iqsbybpnre1223-71-49 15:54:00YellowMemorial HntkbgoLgfmjsclsz9646-75-73 15:54:00 OccasionalMemorial FqrpbvjHtxspjqfs8533-79-01 21:40:51888Tkwksihp [place] Qjmybqopj4907-75-25 21:40:21735Lxgsyiog CtuimgtUdlqdllha4895-69-48 21:40:0034 [facility] EfaftorMcgfhzjbb0946-25-86 21:40:0049[facility] HermannChemistry 2011-03-14 21:40:09017 MEQ/LMemorial XerowvqXnpfjfmox5967-01-36 21:40:004.1 MEQ/LMemorial HyawkjaLerqphjty1514-36-27 21:40:000.9[facility]annChem[facility] 2011-03-14 21:40:006[facility] AfwygzgQtfzijjdv8357-24-97 21:40:00 Test Item Value Reference Range Interpretation Comments BUN/CREAT (test code = BUN/CREAT) 7 1 10-01 [facility] HhdspovJnfcvxzho4878-18-21 21:40:003.9[facility]annChem[facility] 2011-03-14 21:40:009.0[facility] EtjgagiEwtiacbzz7043-37-00 21:40:0027[facility] XdqtuuqJljflgxrd2270-94-39 21:40:0034[facility] GvfgiryZnwyprekz9313-74-98 21:40:0076Memorial DnkbkdoNswarhhlv4864-49-93 21:40:000.524[facility] Tgpnenqgau7269-45-78 21:40:0012.2[facility] EjsbwvxPvwimcilla5576-36-04 21:40:00 35.7Memorial FkwqeuqIqosemjfba6698-25-03 21:40:92244 K/CMMMemorial [place] Vymoyudoww3829-84-51 21:40:00YellowMemorial QbhdrbwPiaunrlptr2844-55-59 20:30:00 11.6Memorial AblurcuBmnofiwiyb2653-12-45 20:30:0035.3[facility] HermannHematology 2010-07-21 20:30:38980 K/CMMMemorial NmkedkeWijkfainvc8273-33-20 20:30:0042 [facility] UulhqomYtdanuchmi7215-88-15 19:49:00YellowMemorial HermannUrinalysis 2010-06-21 19:49:00OccasionalMemorial QyilohgYkkfjvdhy7228-46-35 17:45:05328 [facility] QefsgubAjlagenns0457-95-46 17:45:004.5[facility]ann[facility] 2010-05-24 17:45:000.9[facility] HtcqlufEmkleficj0096-38-28 17:45:0013[facility] FqojmvjCxhnkqzco2065-68-46 17:45:00 Test Item Value Reference Range Interpretation Comments BUN/CREAT (test code = BUN/CREAT) 14 1 6-25 [facility] PihebftJpjgdruxr9393-89-77 17:45:004.2[facility] 2010-05-24 17:45:009.1[facility] AxkndnoGmpcynoyn6191-38-43 17:45:0015[facility] ZkigrxyUxegzjpdp0212-45-43 17:45:0012[facility] NkkzrirRycwqtzqd5954-75-23 17:45:0067[facility] WnbcjqqSbkuepwpt4528-09-42 17:45:000.680[facility] [place] Xjnxjoscjxr2984-62-08 17:45:00 Test Item Value Reference Range Interpretation Comments PT PATIENT (test code = PT PATIENT) 13.6 s 12.0-14.7 [facility] OytleknPnbtphenldn2889-70-79 17:45:00 Test Item Value Reference Range Interpretation Comments INR (test code = INR) 1.02 1 0.85-1.17 [facility] YsgofoeFprklakzne4066-84-99 17:45:0012.7[facility]ann[facility] 2010-05-24 17:45:0038.1[facility] PawnmzjAcjdepadjg6273-21-21 17:45:17875 K/CMM [facility] PnlgrclPdbejwkisn5907-44-77 17:45:00YellowMemorial HermannCT LUMBAR WO CLINICAL INDICATION: M51.36 Other intervertebral disc degeneration, lumbar regionMODALITY: Siemens CHARGED.fm CT (Iterative dose reduction techniques are utilized.)TECHNIQUE: [...] broad-based spondylotic disc abuts the L3 nerve roots with the L2-3lateral recesses without central stenosis or neural foraminal narrowing.L1-L2: 5 mm broad-based spondylitic disc effaces ventral thecal sac and abuts the L2 nerve roots within the bilateral L1-2 lateral recesses without central stenosis or neural foraminal narrowing.PQRS 436: G9637 (For official use only.)
[2022-11-01 23:45] VITALS: BMI 40.4
[2022-11-02] MEDS ORDERED: CEFEPIME 1 GM/VIAL ONE ×2 (00:53→08:24)
[2022-11-02] MEDS: APIXABAN 5 MG TABLET PO SCH ×3 (00:53→20:04)
[2022-11-02] MEDS ORDERED: NA CHLORIDE 0.9% 100 ML ONE ×2 (00:55→08:21)
[2022-11-02] MEDS ORDERED: VANCOMYCIN 1.75 GM in NA CHLORIDE 0.9% 500 ML IVPB ONE (01:00)
[2022-11-02] MEDS ORDERED: AMIODARONE IN DEXTROSE,ISO-OSM 360 MG/200 ML BAG IV ONE (02:42)
[2022-11-02] MEDS ORDERED: AMIODARONE HCL 900 MG in Dextrose 5%-Water 482 ML IV SCH ×2 (03:00→14:00)
[2022-11-02 04:34] LABS: Absolute Lymphocytes (CBC) 1.6 K/uL (0.7-4.9); Hematocrit 35.7 % (36.0-45.0); Lymphocytes % 21.4 % (15.3-44.8); MCV 85.3 fL (80-100); MPV 8.5 fL (7.6-11.3); RBC Red Blood Cell Count 4.18 M/uL (3.86-4.86)
[2022-11-02 04:46] LABS: Protime INR 1.22
[2022-11-02 05:01] LABS: Albumin 2.6 g/dL (3.4-5.0); Bilirubin Total 0.2 mg/dL (0.2-1.0); Magnesium 1.9 mg/dL (1.6-2.4); Potassium 4.4 mEq/L (3.5-5.1); Protein, Total 6.7 g/dL (6.4-8.2); Thyroid Stimulating Hormone 2.63 uIU/mL (0.358-3.740)
--- NOTE | 2022-11-02 05:09 | P.CNS ---
Date of Consult: 11/02/22 Reason for Consult: facial numbess Requesting Physician: Aldo Cabello Chief Complaint: facial nubness History of Present Illness: 72-year-old female with a past medical history of A-fib on RVR on amiodarone drip is a transfer from [facility]. She reported facial numbness, code stroke was called, CT of the head was ordered, GCS is 15, NIH stroke stroke 2, facial numbness, mild dysarthria. Family is at bedside we will order an MRI of the brain in the morning, consult Dr. Murdock for new onset facial numbness. Allergies codeine Allergy (Verified 12/29/21 12:37) Nausea/Vomiting morphine Allergy (Verified 12/29/21 12:37) Hives/Rash/Nausea/Vomiting Sulfa (Sulfonamide Antibiotics) Allergy (Verified 12/29/21 12:37) Hives/Rash Beef Containing Products Adverse Reaction (Verified 12/29/21 12:37) Makes Gag Home Medications: Desvenlafaxine [Desvenlafaxine ER] 100 mg PO DAILY 05/03/20 Levothyroxine [Synthroid*] 0.112 mg PO DAILY 05/03/20 Mirtazapine [Remeron*] 7.5 mg PO BEDTIME 05/03/20 Pregabalin [Lyrica] 225 mg PO BID 05/03/20 Quetiapine Fumarate [Seroquel] 100 mg PO BEDTIME 05/03/20 Memantine HCl 5 mg PO DAILY 12/11/20 Rosuvastatin Calcium 20 mg PO BEDTIME 05/17/21 Spironolactone 50 mg PO DAILY 05/17/21 Docusate [Colace Cap*] 100 mg PO PRN PRN 08/17/21 Famotidine 20 mg PO BID 08/17/21 Multivitamin/Iron/Folic Acid [Centrum Adults Tablet] 1 tab PO DAILY 08/17/21 acetaZOLAMIDE [Diamox] 250 mg PO DAILY 08/17/21 Aspirin [Aspirin EC 81 MG] 81 mg PO DAILY 10/12/21 Clopidogrel Bisulfate [Plavix] 75 mg PO DAILY 10/12/21 Ibuprofen [Motrin] 200 mg PO PRN PRN 10/12/21 Trazodone [Desyrel*] 0.5 tab PO BEDTIME 11/28/21 Ascorbic Acid [Vitamin C] 1,000 mg PO DAILY 12/29/21 Cholecalciferol (Vitamin D3) [Vitamin D 1000 Iu Tab] 1,000 unit PO DAILY 12/29/21 Pramipexole [Mirapex] 1 mg PO BEDTIME 12/29/21 - Past Medical/Surgical History Diabetic: No -: hypothyroid -: fibromyalgia -: HTN -: restless leg -: depression -: dementia -: chronic pain-Lower back and legs -: osteoarthritis -: Osteoporosis -: hysterectomy -: right hip -: left hip -: back surgery -: back stimulator placed -: removed stimulator -: pain pump placed and removed - Family History Sister Medical History: Heart disease Notes: Nose Cancer, Kidney disease, OR-. Other sister- OR - Social History Smoking Status: Unknown if ever smoked Alcohol use: No CD- Drugs: No Caffeine use: Yes Place of Residence: Home Review of Systems 10-point ROS is otherwise unremarkable Physical Examination Temp Pulse Resp BP Pulse Ox 97.5 F 107 H 18 111/72 95 11/01/22 22:57 11/01/22 22:57 11/01/22 22:57 11/01/22 22:57 11/01/22 22:57 General: Alert, In no apparent distress, Oriented x3 HEENT: Atraumatic, Normocephalic, PERRLA Neck: Supple, 2+ carotid pulse no bruit, JVD not distended Respiratory: Clear to auscultation bilaterally, Normal air movement Cardiovascular: No edema, Normal pulses, Regular rate/rhythm Capillary refill: <2 Seconds Gastrointestinal: Normal bowel sounds, Soft and benign Musculoskeletal: No clubbing, No swelling Neurological: Normal strength at 5/5 x4 extr, Cranial nerves 3-12 intact, Normal reflexes 2+, Other (Mild dysarthria) Laboratory Data (last 24 hrs) 11/02/22 04:15: Sodium Cancelled, Potassium Cancelled, BUN Cancelled, Creatinine Cancelled, Glucose Cancelled 11/02/22 04:15: WBC Cancelled, Hgb Cancelled, Hct Cancelled, Plt Count Cancelled 11/02/22 04:10: PT 13.4 H, INR 1.22, APTT 42.1 H 11/02/22 04:10: Sodium 142, Potassium 4.4, BUN 10, Creatinine 1.04 H, Glucose 132 H, Magnesium 1.9, Total Bilirubin 0.2, AST 17, ALT 19, Alkaline Phosphatase 63 11/02/22 04:10: WBC 7.60, Hgb 11.5 L, Hct 35.7 L, Plt Count 213 Conclusions/Impression: Assessment plan Mild dysarthria Facial numbness A-fib RVR with a controlled rate on amiodarone Chronic anticoagulation on Eliquis Assessment plan Mild dysarthria Facial numbness Neuro consult in the a.m. CT of the head without contrast ordered MRI of the brain ordered in the a.m. A-fib RVR with a controlled rate on amiodarone PT eval in a.m. Chronic anticoagulation on Eliquis, Continue amiodarone, cardiology consult in a.m. per primary Dr. Cabello Full code DVT Eliquis Diet n.p.o. Physician Review: Patient Assessed, Agree with Above Assessment and Plan Critical Care: No Time Spent Managing Pts care (In Minutes): 50
[2022-11-02] MEDS: TRAMADOL HCL 50 MG TAB PO PRN ×3 (05:48→20:04)
--- NOTE | 2022-11-02 08:19 | RAD REPORT ---
EXAM DESCRIPTION: CT - Neck Angio - 11/02/2022 6:31 am CLINICAL HISTORY: r/o large vessle occlusion Headache, drowsiness, CVA symptomology COMPARISON: Neck Angio dated 08/17/2021; Head angio dated 11/02/2022 TECHNIQUE: CT angiography of the neck vessels was performed with MIPs. All CT scans are performed using dose optimization technique as appropriate and may include automated exposure control or mA/KV adjustment according to patient size. FINDINGS: A left aortic arch is identified with normal three vessel configuration of the great vesse ls. No significant flow abnormality is seen of the common carotid bilaterally. No significant stenosis is identified involving the cervical segments of both internal carotid arteri es. Both internal carotid arteries take a retropharyngeal course. Normal flow is seen within both vertebral arteries. IMPRESSION: No significant flow abnormality of the neck vessels is identified. NASCET criteria used. Mild 0-49% stenosis Moderate 50-69% stenosis Severe 70-99% stenosis
--- NOTE | 2022-11-02 08:21 | RAD REPORT ---
EXAM DESCRIPTION: CT - Head angio - 11/02/2022 6:31 am CLINICAL HISTORY: r/o large vessle occlusion Headache, drowsiness, CVA symptomology COMPARISON: Ct Stroke Brain Wo Cont dated 11/02/2022; Ct Stroke Brain Wo Cont dated 08/17/2021 TECHNIQUE: CT angiography of the head was performed with MIPs. All CT scans are performed using dose optimization technique as appropriate and may include automated exposure control or mA/KV adjustment according to patient size. FINDINGS: No evidence of large vessel occlusion. No evidence of aneurysm is detected. No flow-limiti ng stenosis or vascular malformation identified. Antegrade flow is seen in the vertebral arteries. The vertebral arteries are codominant. The visualized dural venous sinuses are patent. IMPRESSION: No significant flow abnormality is detected.
[2022-11-02] MEDS ORDERED: VANCOMYCIN 1 GM in NA CHLORIDE 0.9% 250 ML IVPB SCH (09:00)
[2022-11-02] MEDS ORDERED: CEFEPIME 1 GM in NA CHLORIDE 0.9% 100 ML IV SCH (09:00)
[2022-11-02] MEDS ORDERED: MEPERIDINE HCL 25 MG/ML SYR IV ONE (11:06)
[2022-11-02] MEDS ORDERED: LORazepam 2 MG/ML VIAL IV ONE (11:07)
--- NOTE | 2022-11-02 12:16 | RAD REPORT ---
EXAM DESCRIPTION: MRI - Brain Wo Cont - 11/02/2022 12:09 pm CLINICAL HISTORY: Facial numbness, Headache, drowsiness, CVA symptomology COMPARISON: Head angio dated 11/02/2022 TECHNIQUE: Multi-sequence, multiplanar MR imaging of the brain was performed without contrast. FINDINGS: No intracranial hemorrhage, hydrocephalus or extra-axial fluid collections.Mild generalize d brain atrophy. No edema or shift of midline structures. No findings to suspect brain mass. DWI is n egative for acute CVA. Midline structures are normally formed. Mastoid air cells and paranasal sinuses are clear. IMPRESSION: Negative for acute CVA or other acute intracranial process.
[2022-11-02] MEDS: CEFEPIME 1 GM in NA CHLORIDE 0.9% 100 ML IV SCH (12:45)
--- NOTE | 2022-11-02 13:13 | RAD REPORT ---
EXAM DESCRIPTION: ADDENDUM #1 THIS REPORT CONTAINS FINDINGS THAT MAY BE CRITICAL TO PATIENT CARE: The findings were verbally discus sed via telephone conference with Dr. Aldo Cabello 5:20 AM central time November 02, 2022. The results w ere acknowledged and understood. Electronically signed by: Marion Alexander MD 11/02/2022 5:23 AM CDT End of Addendum EXAM: CT Head Without Intravenous Contrast CLINICAL HISTORY: The patient is 72 years old and is Female; stroke symptoms TECHNIQUE: Axial computed tomography images of the head/brain without intravenous contrast. Sagitt al and coronal reformatted images were created and reviewed. This CT exam was performed using one o r more of the following dose reduction techniques: automated exposure control, adjustment of the mA and/or kV according to patient size, and/or use of iterative reconstruction technique. COMPARISON: No relevant prior studies available. FINDINGS: Brain: Unremarkable. No hemorrhage. No significant white matter disease. No edema. Ventricles: Unremarkable. No ventriculomegaly. Bones/joints: Unremarkable. No acute skull fracture. Soft tissues: Unremarkable. Sinuses: Unremarkable as visualized. No acute sinusitis. Mastoid air cells: No significant mastoid fluid. IMPRESSION: No acute intracranial findings. No hemorrhage. Electronically signed by: Marion Alexander MD 11/02/2022 5:04 AM CDT Due to temporary technical issues with the PACS/Fluency reporting system, reports are being signed by the in house radiologists without review as a courtesy to insure prompt reporting. The interpreting radiologist is fully responsible for the content of the report.
--- NOTE | 2022-11-02 13:18 | EKG ---
Test Date: 2022-11-02 Test Time: 04:43:48 [employer] Strand: MIKAL MEASUREMENT RESULTS: Intervals: Rate: 58 NE: 180 QRSD: 96 QT: 434 QTc: 426 Cameron: P: 65 NE: 180 QRS: -89 T: 45 INTERPRETIVE STATEMENTS: Sinus bradycardia Low voltage QRS Left anterior fascicular block Cannot rule out Anterior infarct, age undetermined Abnormal ECG Compared to ECG 09/26/2021 11:55:21 Sinus rhythm no longer present Myocardial infarct finding still present Electronically Signed On 11-02-22 13:17:06 CDT by Nghia Baldwin
--- NOTE | 2022-11-02 14:28 | ECHO ---
HEIGHT: 5 ft 3 in WEIGHT: 228 lb 0 oz DATE OF STUDY: 11/02/[address]: Aldo Cabello MD 2-DIMENSIONAL: YES M.MODE: YES DOPPLER: YES COLOR FLOW: YES TDS: YES PORTABLE: YES DEFINITY: BUBBLE STUDY: DIAGNOSIS: ATRIAL FIBRILLATION CARDIAC HISTORY: CATHERIZATION: SURGERY: PROSTHETIC VALVE: PACEMAKER: MEASUREMENTS (cm) DIASTOLIC (NORMALS) SYSTOLIC (NORMALS) IVSd 0.9 (0.6-1.2) LA Diam 3.6 (1.9-4.0) LVEF 63% LVIDd 4.8 (3.5-5.7) LVIDs 3.1 (2.0-3.5) %FS 34% LVPWd 1.0 (0.6-1.2) Ao Diam 2.7 (2.0-3.7) 2 DIMENSIONAL ASSESSMENT: RIGHT ATRIUM: NORMAL LEFT ATRIUM: NORMAL RIGHT VENTRICLE: NORMAL LEFT VENTRICLE: NORMAL TRICUSPID VALVE: NORMAL MITRAL VALVE: MITRAL ANNULAR CALCIFICATION WITH MILD MITRAL REGURGITATION PULMONIC VALVE: NORMAL AORTIC VALVE: NORMAL PERICARDIAL EFFUSION: NONE AORTIC ROOT: NORMAL LEFT VENTRICULAR WALL MOTION: NORMAL DOPPLER/COLOR FLOW: MILD MITRAL REGURGITATION COMMENTS: 1. NORMAL LEFT VENTRICULAR EJECTION FRACTION 55-60% 2. NORMAL WALL MOTION 3. MITRAL ANNULAR CALCIFICATION WITH MILD MITRAL REGURGITATION TECHNOLOGIST: CHERI CRUZ
[2022-11-02] MEDS ORDERED: VANCOMYCIN 1.75 GM in NA CHLORIDE 0.9% 500 ML IVPB SCH (15:00)
--- NOTE | 2022-11-02 15:46 | RAD REPORT ---
EXAM DESCRIPTION: XR CHEST 1 VIEW TECHNIQUE: Chest radiograph single view. CLINICAL HISTORY: Stroke symptoms COMPARISON: None available . FINDINGS: Heart: Normal. Mediastinum/Vessels: Normal. Lungs/Pleural space: No acute infiltrate, effusion, or pneumothorax. Bony thorax: No acute osseous abnormality. Life support devices: None. IMPRESSION: 1. No radiographic evidence of acute cardiopulmonary disease process. Electronically signed by: Nicolette Burgos MD 11/02/2022 6:05 AM CDT Due to temporary technical issues with the PACS/Fluency reporting system, reports are being signed by the in house radiologists without review as a courtesy to insure prompt reporting. The interpreting radiologist is fully responsible for the content of the report.
[2022-11-02] MEDS ORDERED: TRAZODONE 50 MG TABLET PO SCH (21:00)
[2022-11-02] MEDS ORDERED: HYDROMORPHONE ORAL 2 MG TAB PO SCH (21:00)
[2022-11-02] MEDS ORDERED: ROSUVASTATIN 10 MG TAB PO SCH (21:00)
[2022-11-02] MEDS ORDERED: QUETIAPINE 100MG TAB PO SCH (21:00)
[2022-11-02] MEDS ORDERED: MIRTAZAPINE 15 MG TAB PO SCH (21:00)
[2022-11-02] MEDS ORDERED: PRAMIPEXOLE 1 MG TAB PO SCH (21:00)
[2022-11-02] MEDS: PREGABALIN 75 MG CAP PO SCH (21:48)
[2022-11-02] MEDS: FAMOTIDINE 20 MG TAB PO SCH (21:49)
[2022-11-02] MEDS: HYDROMORPHONE ORAL 2 MG TAB PO SCH (21:49)
[2022-11-02 22:47] VITALS: O2SAT 99
--- NOTE | 2022-11-02 23:24 | CON ---
Reason For Consultation: Consultation called by Dr. Cabello because of possible stroke. History Of Present Illness: Ms. Rico is a 72-year-old patient in [facility] because of atri al fibrillation with a rapid ventricular response for which she is. Treated with amiodarone drip. S mary lou was transferred from [facility] to [facility]. Earlier this morning, she deve loped sudden onset of facial numbness on the left, and she was evaluated by the nursing staff and a sejal escobedo practitioner, Gia Aguilar. Her evaluation did indicate the left-sided numbness. NIH scale was at 2 and the patient was considered for TNKase. However, she is receiving Eliquis 5 mg twice daily for atrial fibrillation and is not a candidate for intravenous thrombolysis. Her [place] Coma Scale was 15. She also had mild dysarthria along with facial numbness with scale of 2 on the NIH scale. T he patient subsequently had a CT angiogram of head and neck, which were negative. Therefore, she was not a candidate for intra-arterial thrombectomy. Subsequently, the patient's symptoms resolved. lay reports perhaps a few hours later and her brain MRI stroke protocol was negative for an acute ische gwendolyn or hemorrhagic stroke. The patient again is asymptomatic in terms of the numbness or dysarthria and this is at the time of my evaluation. Past Medical History: Hypothyroidism, hypertension, fibromyalgia, restless legs syndrome, depression , osteoarthritis, osteoporosis. Surgical History: Hysterectomy, right and left hip surgery, back surgery, stimulator placed and larry mega, and pain pump placed and removed. Allergies: CODEINE, MORPHINE, SULFA AND BEEF PRODUCTS. Medications: Tramadol 50 mg every 6 hours, cefepime 1 g every 12 hours, Eliquis 5 mg twice daily, am iodarone drip. She has a drip at a rate of 16.667 mL/hour and 900 mg in 5 mL at 2.5 mg/minute. Also , vancomycin 207 mL/hour. She has 1.75 g dissolved in 500 mL units every 24 hours. Family History: Heart disease, kidney disease, myocardial infarction in multiple sisters and 1 is de ceased from myocardial infarction. Social History: Denies alcohol, tobacco, or IV drug use. Does drink caffeinated beverages. Review of Systems: Aside from the issue of her facial numbness, which has resolved, she has had some chest pounding palp itations and is admitted for the drip to control her atrial fibrillation with rapid ventricular respo nse. No other positive systems review. Physical Examination: Vital Signs: Blood pressure 110/56, pulse 61, respiratory rate 16, temperature 97.4, oxygen saturati on 96%. General: Ms. Rico is resting in bed. Her is at bedside. HEENT: She is normocephalic, atraumatic. Sclerae anicteric. Oropharynx is pink and moist. Neck: Supple. Chest: Clear. Heart: Irregularly irregular. Abdomen: Soft. Extremities: Show no clubbing, cyanosis, or edema. Neurological: Alert and oriented to person, place, situation. Follows commands appropriately. Cran ial nerves show no focal deficits 2 through 12. Motor 5/5 proximally and distally in upper and lower extremities. Sensation, stocking-glove loss, light touch temperature. Reflexes depressed in upper and lower extremities. Coordination is intact in upper and lower extremities. Gait: She did ambula te with a Rollator and with contact guard assistance over 75 feet. Laboratory Studies: Complete blood count with differential, normal white blood cells count, normal r ed blood cell count, hemoglobin 11.5, platelets 213, INR 1.22. Sodium 142, potassium 4.4, chloride 1 11, carbon dioxide 31, BUN 10, creatinine 1.04, glucose ranged from 113 to 132. AST 17, ALT 19, aditi line phosphatase 63, TSH 2.63. Her vancomycin level, trough is 6.5. Her electrocardiogram shows a sinus bradycardia, low voltage criteria, left anterior fascicular block . Her echocardiogram shows ejection fraction of 63% with mitral annual calcification with mild angel l regurgitation. Assessment: Ms. Rico is a 72-year-old patient with atrial fibrillation with rapid ventricular respon se. Her last EKG shows a sinus bradycardia. Echo essentially unremarkable. Brain MRI shows no evid ence of an acute ischemic hemorrhagic stroke. MRA of head and neck showed no large vessel ischemic d isease and the patient has no focal neurological deficits. Plan: Continue with Eliquis 5 mg twice daily and she may continue addressing her comorbid conditions as noted and managed by Dr. Cabello after discharge. She may follow up with Dr. Murdock in clinic 1 m onth later. IZABELA/J LUIS Voice ID: [id number] Report ID: [id number]
--- NOTE | 2022-11-02 23:54 | CON ---
Date of Consultation: 11/02/2022 Reason For Consultation: Atrial fibrillation. History Of Present Illness: This is a 72-year-old female with a past medical history of atrial fibri llation. She was at [facility], and went into atrial fibrillation with rapid ventricular response and she was transferred for higher level of care. Over here, she was started on IV amiodaro ne drip per my orders yesterday and heart rate is controlled. Does not have any chest pain or shortn ess of breath. Past Medical History: Significant for hypertension, hypothyroidism, depression. Medications: Refer to reconciliation sheet for detailed list. Allergies: CODEINE, SULFA, MORPHINE. Family History: No premature coronary artery disease or cancer. Social History: She does not smoke or drink. Does not use any drugs. Review of Systems: All systems reviewed, they are negative except for mentioned in HPI. Physical Examination: Vital Signs: Reviewed. Head and Neck: Pupils are equal, reactive to light. Intact eye movements. No JVD. No cervical lym phadenopathy. Neck is supple. Thyroid is not enlarged. Lungs: Clear to auscultation bilaterally. No rhonchi, rales, or crackles. No accessory muscle use. Heart: Regular rate and rhythm. No extra sounds. Abdomen: Soft, nontender. Bowel sounds positive. No organomegaly. No masses or hernia. No rigidi ty or rebound. Extremities: No edema, clubbing, cyanosis. Intact pulses. Skin: No rash. Neurologic: Alert, awake, oriented x3. No acute focal deficits appreciated. Investigations: BUN 10, creatinine 1.0 and hemoglobin is 11.5, RBC count 7.6. Assessment And Recommendation: 1.Atrial fibrillation with rapid ventricular response. Now rate is controlled on amiodarone drip. Continue current management. Once the amiodarone drip or infusion is completed, to switch to oral am iodarone 200 mg twice a day. Agree with Eliquis 5 mg twice a day and if this patient continues to be in atrial fibrillation, we will plan for RAFAEL-guided cardioversion. 2.Hypothyroidism. Please check TSH to assure that it is not causing her atrial fibrillation episode . 3.Dyslipidemia, on rosuvastatin to be continued. SR/MODL Voice ID: [id number] Report ID: [id number]
[2022-11-03] MEDS: CEFEPIME 1 GM in NA CHLORIDE 0.9% 100 ML IV SCH ×2 (02:25→12:56)
[2022-11-03] MEDS: FAMOTIDINE 20 MG TAB PO SCH (08:26)
[2022-11-03] MEDS: PREGABALIN 75 MG CAP PO SCH (08:26)
[2022-11-03] MEDS: APIXABAN 5 MG TABLET PO SCH (08:27)
[2022-11-03] MEDS: HYDROMORPHONE ORAL 2 MG TAB PO SCH (08:27)
[2022-11-03] MEDS ORDERED: DESVENLAFAXINE SUCCINATE 50 MG ER TAB PO SCH (09:00)
[2022-11-03] MEDS ORDERED: MEMANTINE HCL 10 MG TABLET PO SCH (09:00)
[2022-11-03] MEDS ORDERED: FUROSEMIDE 20 MG TABLET PO SCH (09:00)
[2022-11-03] MEDS ORDERED: PANTOPRAZOLE 40MG TABLET PO SCH (09:00)
[2022-11-03] MEDS ORDERED: SPIRONOLACTONE 25 MG TABLET PO SCH (09:00)
[2022-11-03] MEDS ORDERED: PRISTIQ 100 MG PO SCH (09:00)
[2022-11-03] MEDS ORDERED: LEVOTHYROXINE SOD 0.112 MG TAB PO SCH (09:00)
[2022-11-03] MEDS ORDERED: acetaZOLAMIDE 250 MG TAB PO SCH (09:00)
--- NOTE | 2022-11-03 10:02 | HP ---
Date of Admission: 11/01/2022 Chief Complaint: Leg swelling and heart racing feeling. History Of Present Illness: This is a 72-year-old very pleasant female patient who started to have s ome cellulitis involving both lower extremities and she was started on oral Augmentin on outpatient b asis by her daughter who is a nurse practitioner in [facility] and after 2 or 3 days of oral ant ibiotic, her cellulitis did not improve, so patient was taken to [facility] Emergency Room and w as admitted as of 2 days ago. Initially, she received doxycycline and as of yesterday, she was pacheco ed to vancomycin and cefepime. Last night, patient while in the hospital went into atrial fibrillati on with rapid ventricular rate and at that time, I was contacted requesting transfer to our hospital. Hemodynamically, patient was stable. Patient was started on IV amiodarone and was brought into our hospital and Eliquis 5 mg 2 times a day was ordered as anticoagulation therapy, which first dose she received was around 1 o'clock this morning at our hospital after she arrived and I was told that she did not receive this dose at outside hospital. Early this morning around 3 to 4 o'clock, nurse cont acted me and informed me that the patient had change in status. Initially, she started complaining o f headache and then subsequently she was complaining of some tingling, numbness of the left side of t he face and had trouble speaking. So with that, code stroke was called and I was contacted at that t stan. No other focal neurological deficit was noted. Subsequently, CAT scan of the head was done per stroke protocol, which came back negative and patient's symptoms resolved. When I saw her this morn ing, she was feeling better, does not have any focal neurological deficit. Her speech is clear. Den ies any chest pain, shortness of breath. Patient did convert to normal sinus rhythm after she came t o our hospital during nighttime and has remained in normal sinus rhythm this morning when I saw her a nd she is on IV amiodarone drip as per order. Allergies: SULFA CAUSING RASH, CODEINE CAUSING NAUSEA VOMITING, AND MORPHINE ALSO CAUSES NAUSEA, VOM ITING. Medication List: Reviewed. Review of Systems: Dermatology: As mentioned above. Cardiovascular: As mentioned above. MANAGER BRANCH: As mentioned above. Musculoskeletal: Chronic arthritis pain, especially in her back. All other systems reviewed and negative. Past Medical History: Significant for chronic diastolic heart failure, hypothyroidism, anemia, osteo arthritis at multiple sites, hypokalemia, hypertension, hyperlipidemia, fibromyalgia, vitamin D defic iency, chronic leg edema, paroxysmal atrial fibrillation, osteoporosis, prior history of stroke, and chronic kidney disease, stage 3A. Also significant for dementia and restless legs syndrome. Past Surgical History: Cataract surgery; hysterectomy; back surgery in 2013; had a pain pump placed, which was removed January 02, 2022. Spinal cord stimulator placement 2014 and removal of hardware from her back 2018. SI fusion in 2021 and bilateral hip replacement surgery. Family History: Father due to swine flu. Mother , had anxiety, depression, myocardial infa rction. Sister has myocardial infarction. Social History: Negative for smoking and alcohol use. Physical Examination: Vital Signs: This morning, last temperature 98.2, pulse 66, respiratory rate 14, blood pressure 102/ 50, oxygen saturation 96% on 2 L nasal cannula oxygen. Height 5 feet 3 inches, weight 228 pounds. General: Awake, alert, oriented, not in distress. HEENT: Head atraumatic, normocephalic. Conjunctivae nonerythematous. Sclerae white. Mouth, no thr ush or edema noted. Ears/Nose, no mass, lesion, discharge noted. Neck: Supple. No JVD, lymph nodes, bruit, thyromegaly noted. Lungs: Bilateral good equal air entry. Clear to auscultation. No rhonchi. No rales. Heart: Normal heart sounds, no murmur or gallop. Abdomen: Soft, bowel sounds normal. No guarding, rigidity, tenderness, mass, hepatosplenomegaly, dis tention, or bruit noted. Extremities: Redness and warmness of skin involving bilateral lower extremity between knee and foot. No open wound noted. Skin: No rash, ulcer, cellulitis. Lymphatics: No lymph node enlargement in neck, supraclavicular, infraclavicular region. Neuro: No focal neurological deficit. Chest: Unremarkable. External Genitalia: Deferred. Rectal: Deferred. MANAGER BRANCH: Patient's speech is normal. Her power is normal and equal in all the 4 extremities. There is no focal deficit with any weakness. There is no facial asymmetry. No dysarthria. Laboratory Data: Upon admission, white count 7.6, hemoglobin 11.5, platelets 213. Sodium 142, potas sium 4.4, chloride 111, bicarb 31, BUN 10, creatinine 1.04. Estimated GFR 57. Glucose 132. Liver f unction tests unremarkable. TSH 2.63. Magnesium 1.9. CAT scan of the brain done per stroke protoco l was negative and subsequently today patient had a CT angiogram of head and neck, which was unremark able. MRI of the brain per stroke protocol was negative for any acute changes. Echocardiogram shows normal ejection fraction. It was unremarkable otherwise. Impression: 1.Atrial fibrillation with rapid ventricular rate, paroxysmal. 2.Transient ischemic attack. 3.Cellulitis, bilateral lower extremities. 4.Chronic kidney disease, stage 3A. 5.Chronic diastolic heart failure. 6.Hypothyroidism. 7.Anemia, chronic, unspecified. 8.Osteoarthritis, multiple sites. 9.Fibromyalgia. 10.Hypertension. 11.Hyperlipidemia. 12. with compression fracture of spine. Plan: We will go ahead and admit the patient to hospital for further evaluation and management of th is problem. Patient is appropriate for inpatient and is expected to spend 2 midnights in hospital. For patient's cellulitis, we will continue vancomycin and cefepime. Monitor her response to therapy and then decide if we need to make any further changes in antibiotic therapy or not. For atrial fibr illation, patient has received amiodarone dose. We will continue current IV amiodarone fo r 24 hours per order and then we will change it to oral amiodarone therapy. Anticoagulation therapy Eliquis 5 mg 2 times a day was started and we will continue that. No need for further intervention f or TIA at this point. Neurology consultation and Cardiology consultation was requested. For her chr onic arthritis pain, we will continue her pain medications per order. Consult Physical Therapy. We will continue other home medication as per order and see orders for details. Details and plan of crissy atment discussed with the patient and her daughter who was at bedside. I will see her tomorrow for f ollowup. BO/MODL Voice ID: [id number]
[2022-11-03 12:05] VITALS: BP 96/48; TEMP 97.4
--- NOTE | 2022-11-03 17:54 | PN ---
Date of Progress Note: 11/03/2022 Subjective: Seen by bedside. No new complaints. She converted to sinus rhythm. Review of Systems: No chest pain, shortness of breath, orthopnea, or cough. No nausea, vomiting, or diarrhea. All othe r systems reviewed, and they were negative. Objective: Vital Signs: Reviewed. Head and Neck: Pupils are equal, reactive to light. Intact eye movements. No JVD. No cervical lym phadenopathy. Neck is supple. Thyroid is not enlarged. Lungs: Clear to auscultation bilaterally. No rhonchi, wheezing, or crackles. No accessory muscle u se. Heart: Regular rate and rhythm. No extra sounds. Abdomen: Soft, nontender. Bowel sounds positive. No organomegaly. No masses or hernia. No rigidi ty or rebound. Extremities: No edema, clubbing, cyanosis. Intact pulses. Skin: No rash. No nodule. Neurologic: Alert, awake, oriented x3. No acute focal deficits appreciated. Investigations: No blood work was done today. Assessment And Recommendations: 1.Atrial fibrillation converted to sinus rhythm. Continue amiodarone 200 mg twice a day and in abou t 4 weeks to decrease it to once a day and continue Eliquis. 2.Dyslipidemia. Rosuvastatin to be continued. Cardiology will sign off and we will follow up the patient in the outpatient arena. SR/MODL Voice ID: [id number] Report ID: [id number]
--- NOTE | 2022-11-05 18:51 | DS ---
Date of Discharge: 11/03/2022 Disposition: Discharged to go home. Physical Examination: HEENT: Unremarkable. Lungs: Clear to auscultation. Heart: Sounds normal. Abdomen: Soft. Bowel sounds normal. Abdomen: Trace leg edema. Neuro: No focal neurological deficits. Discharge Medications And Instructions: Continue all prior home medication except following changes; 1.Stop Augmentin, aspirin, clopidogrel. 2.Start cefuroxime 250 mg, take 1 tablet by mouth 2 times a day with food for 1 week. 3.Start doxycycline 100 mg, take 1 capsule by mouth 2 times a day, avoid sunlight exposure while on this medication. 4.Start Eliquis 5 mg 1 tablet by mouth 2 times a day. 5.Start amiodarone 200 mg, take 1 tablet by mouth 2 times a day. 6.Follow up at my office next week on . 7.Prescription for cefuroxime, doxycycline, Eliquis, and amiodarone was sent to Pharmacy from the [facility]. Laboratory Data: Upon admission; white count 7.6, hemoglobin 11.5, platelets 213. Sodium 142, potas sium 4.4, chloride 111, bicarb 31, BUN 10, creatinine 1.04, glucose 132. Liver function tests unrema rkable. TSH 2.63. Chest x-ray, no acute cardiopulmonary changes. CAT scan of the head was negative for any acute intracranial changes. CTA of head and neck did not show any aneurysm or any significa nt stenotic lesions. MRI of the brain was negative for any acute stroke and echocardiogram showed no rmal ejection fraction 63%, mitral annular calcification with mild mitral regurgitation. Hospital Course: This is a 72-year-old very pleasant female patient, who was transferred from [facility] to our facility with atrial fibrillation with rapid ventricular rate. Please see dictated H and P for more information. The patient was admitted to [facility] with cellulitis of leg and while she was in the hospital, she developed atrial fibrillation with rapid ventricular rate. The p atient was brought into our hospital. Hemodynamically, she was stable. The patient received IV amio darone and Cardiology consultation was obtained. The patient converted to sinus rhythm with IV amiod arone and she was started on oral anticoagulation therapy Eliquis. Yesterday application support consultant, the benita ent had TIA symptoms and it resolved on its own without any intervention. Neurology consultation was requested from Dr. Murdock. Overall, the patient's condition remained stable and once she converte d to sinus rhythm, she remained in sinus rhythm and today she was discharged to go home in stable con dition. Final Diagnoses: 1.Atrial fibrillation with rapid ventricular rate, paroxysmal. 2.Transient ischemic attack. 3.Cellulitis, bilateral lower extremities. 4.Chronic kidney disease, stage 3A. 5.Chronic diastolic heart failure. 6.Hypothyroidism. 7.Anemia, chronic, unspecified. 8.Osteoarthritis, multiple sites. 9.Fibromyalgia. 10.Hypertension. 11.Hyperlipidemia. 12.Osteoporosis with compression fracture of spine. BO/MODL Voice ID: [id number] Report ID: [id number]
== END 2022-11-03 14:20 | disposition home or self-care (01) | DRG 309 ==
LOC: 4TH 21:39
PROVIDERS: ADMIT Internal Medicine; ATTEND Internal Medicine
DX: I48.91 Unspecified atrial fibrillation (principal); G45.9 Transient cerebral ischemic attack, unspecified; I13.0 Hypertensive heart and chronic kidney disease with heart failure and stage 1 through stage 4 chronic kidney disease, or unspecified chronic kidney disease; I50.32 Chronic diastolic (congestive) heart failure; L03.116 Cellulitis of left lower limb; L03.115 Cellulitis of right lower limb; N18.31 Chronic kidney disease, stage 3a; D63.1 Anemia in chronic kidney disease; E03.9 Hypothyroidism, unspecified; G25.81 Restless legs syndrome; M19.90 Unspecified osteoarthritis, unspecified site; M81.0 Age-related osteoporosis without current pathological fracture; M79.7 Fibromyalgia; G89.29 Other chronic pain; M54.50 Low back pain, unspecified; M79.606 Pain in leg, unspecified; I44.4 Left anterior fascicular block; I34.0 Nonrheumatic mitral (valve) insufficiency; F03.90 Unspecified dementia, unspecified severity, without behavioral disturbance, psychotic disturbance, mood disturbance, and anxiety; R47.1 Dysarthria and anarthria; R29.702 NIHSS score 2; Z88.5 Allergy status to narcotic agent; Z88.2 Allergy status to sulfonamides; Z79.01 Long term (current) use of anticoagulants; Z79.02 Long term (current) use of antithrombotics/antiplatelets; Z79.82 Long term (current) use of aspirin; Z91.030 Bee allergy status; Z79.890 Hormone replacement therapy; Z79.899 Other long term (current) drug therapy; Z90.710 Acquired absence of both cervix and uterus; Z86.73 Personal history of transient ischemic attack (TIA), and cerebral infarction without residual deficits; Z96.643 Presence of artificial hip joint, bilateral
CPT/HCPCS: 36415; 70450; 70496; 70498; 70551; 71045; 80053; 80202; 82947; 83735; 84443; 85025; 85610; 85730; 93005; 93306; 94760; 97116; 97161; 97530; J0282; J0692; J2175; J7040; J7060; Q9967

== ENCOUNTER 2023-03-06 22:58 | Inpatient (IN) | payer OTHER ==
--- OUTSIDE RECORDS SUMMARY | 2023-03-06 23:09 | XMS REPORT | Continuity of Care Document ---
:1950 Author Organization [facility] t Address [address] [place] [address] Care Team Providers Name Role Phone Sarah Kim MD Primary Care Physician KATE BERMAN Attending Clinician Unavailable RENETTA AVERY Attending Clinician Unavailable OTIS SULLIVAN Attending Clinician Unavailable RENETTA AVERY Admitting Clinician Unavailable OTIS SULLIVAN Admitting Clinician Unavailable Payers Payer Name Policy Type Policy Number Effective Date Expiration Date S ource MEDICARE PART A [id number] 2015 AND B 00:00:00 Problems Condition Condition Condition Status Onset Resolution Last Treating Co mments Source Name Details Category Date Date Treatment Clinician Date Chronic Chronic Disease Active [facility] 00 [place] Wound, Wound, Disease Active [facility] surgical, surgical, 5-15 [facility] infected infected 00:00: Medica l 00 [place] Pre-op Pre-op Disease Active [facility] testing testing 5[facility] 00 [place] Essential Essential Disease Active [facility] hypertensi hypertensi 3-12 Ileana kes on on 00:00: Medical 00 [place] Hypothyroi Hypothyroi Disease Active [facility] dism dism 3-12 [facility] 00 [place] Depression Depression Disease Active [facility] with with 3[facility]12 [facility] anxiety anxiety [facility] 00 Center Obesity Obesity Disease Active [facility] Pain Pain Disease Active [facility] Chronic Chronic Disease Active [facility] pain [facility]16 [facility] disorder disorder 00[facility]ica l 00 Center Depression Depressio Problem Active 2015-11-02 [facility] with n with 03:35:47 l anxiety anxiety [place] Active Problem 11/02/2015 eCW: Gaurav Bria Morbid Morbid Problem Active 2015-11-02 [facility] Obesity Obesity 03:35:47 l Active [place] Problem 11/02/2015 eCW: Gaurav LebronBria Hyperlipid Hyperlipi Problem Active 2015-11-02 [facility] emia demia 03:35:47 l Active [place] Problem 11/02/2015 eCW: Gaurav Bria Osteoarthr Problem Active 2015-11-02 M emoria itis Osteoarthr 03:35:47 l generalize itis [place] n d generalize d Active Problem 11/02/2015 eCW: Gaurav Bria Hypothyroi Hypothyro Problem Active 2015-11-02 [facility] dism idism 03:35:47 l (acquired) (acquired) [place] Active Problem 11/02/2015 eCW: Gaurav LebronBria Osteoporos Osteoporo Problem Active 2015-11-02 [facility] is sis Active 03:35:47 l Problem [place] 11/02/2015 eCW: Gaurav Bria Bipolar Bipolar Problem Active 2015-11-02 [place] affective affective 03:35:47 l disorder, disorder, Herm ila depressed depressed Active Problem 11/02/2015 eCW: Gaurav Fraser Low Back Low Back Problem Active 2015-11-02 [facility] Pain Pain 03:35:47 l Active [place] Problem 11/02/2015 eCW: Gaurav Fraser Fibromyalg Fibromyal Problem Active 2015-11-02 [facility] ia clemente Active 03:35:47 l Problem [place] 11/02/2015 eCW: Gaurav Fraser Routine Routine Diagnosis Active 2014-01-08 [facility] medical medical 02:02:51 l exam exam [place] Active Diagnosis 01/08/2014 eCW: Gaurav Fraser Screen Screen Diagnosis Active 2014-03-18 [facility] mor[facility] Mammogram Mammogram 03:04:03 l NEC NEC [place] Active Diagnosis 03/18/2014 eCW: Gaurav Fraser Vitamin D Vitamin D Problem Active 2015-11-02 [facility] Deficiency Deficiency 03:35:47 l Active [place] Problem 11/02/2015 eCW: Gaurav Fraser Pre-op Pre-op Diagnosis Active 2015-02-24 [place] evaluation evaluation 03:03:42 l Active [place] Diagnosis 02/24/2015 eCW: Gaurav Fraser Pre-op Pre-op Diagnosis Active 2015-05-21 [place] examinatio examinatio 04:05:13 l n n Active [place] Diagnosis 05/21/2015 eCW: Gaurav Fraser Restless Restless Problem Active 2016-05-18 [facility] legs legs 03:03:33 l syndrome syndrome [place] n Active Problem 05/18/2016 eCW: Gaurav LebronBria Depression Depressio Problem Active 2016-05-18 [facility] with n with 03:03:33 l anxiety anxiety [place] Active Problem 05/18/2016 eCW: Gaurav LebronBria Spinal Spinal Problem Active 2016-05-18 Inder hom[facility] stenosis stenosis 03:03:33 l of of [place] thoracolum thoracolum bar region bar region Active Problem 05/18/2016 eCW: Gaurav LebronBria Vitamin D Vitamin D Problem Active 2016-05-18 [facility] deficiency deficiency 03:03:33 l Active [place] Problem 05/18/2016 eCW: Gaurav LebronBria Dorsalgia, Dorsalgia Problem Active 2016-05-18 [facility] unspecifie , 03:03:33 l d unspecifie [place] n d Active Problem 05/18/2016 eCW: Gaurav LebronBria Osteoporos Problem Active 2016-05-18 M emoria is Osteoporos 03:03:33 l is Active [place] Problem 05/18/2016 eCW: Gaurav LebronBria Hypothyroi Hypothyro Problem Active 2016-05-18 [facility] dism, idism, 03:03:33 l unspecifie unspecifie [place] d d Active Problem 05/18/2016 eCW: Gaurav Bria Fibromyalg Fibromyal Problem Active 2016-05-18 Mem[facility] ia clemente Active 03:03:33 l Problem [place] 05/18/2016 eCW: Gaurav Fraser Hyperlipid Hyperlipi Problem Active 2016-05-18 Memoria emia, demia, 03:03:33 l unspecifie unspecifie [place] d d Active Problem 05/18/2016 eCW: Gaurav LebronBria Generalize Generaliz Problem Active 2016-05-18 Memoria d OA ed OA 03:03:33 l Active [place] Problem 05/18/2016 eCW: Gaurav LebronBria Cacosmia Cacosmia Diagnosis Active 2014-11-21 Memoria Active 02:25:30 l Diagnosis [place] 11/21/2014 eCW: Gaurav Bria Memory Memory Diagnosis Active 2015-05-21 [place] deficits deficits 03:39:44 l Active [place] Diagnosis 05/21/2015 eCW: Gaurav Bria Conjunctiv Conjuncti Diagnosis Active 2015-05-21 [facility] itis vitis 04:11:35 l Active [place] Diagnosis 05/21/2015 eCW: Gaurav Bria Hypertensi Problem Active 2016-05-18 M emoria on Hypertensi 03:03:33 l on Active [place] Problem 05/18/2016 eCW: Gaurav Fraser Obesity Obesity Problem Active 2016-05-18 [place] mor[place] Active 03:03:33 l Problem [place] 05/18/2016 eCW: Gaurav Fraser Conjunctiv Conjuncti Diagnosis Active 2015-11-02 [facility] itis vitis 03:35:47 l Active [place] Diagnosis 11/02/2015 eCW: Gaurav Fraser History of Past Illness Condition Condition Condition Status Onset Resolution Last Treating Co mments Source Name Details Category Date Date Treatment Clinician Date M1 M1990 Diagnosis 2018-2018-10-22 2018-10-22 [facility] UNSPECIFIE UNSPECIFIE 10-01 15:01:34 15:01:34 l D D 00:00: [place] OSTEOARTHR OSTEOARTHR 00 ITIS, ITIS, UNSPECIFIE UNSPECIFIE D SITE D SITE 10/01/2018 Diagnosis 10/22/2018 [place] Z95.810 Z95.810 Diagnosis 2018-10-22 2018-10-22 Memoria PRESENCE PRESENCE 10-01 15:01:34 15:01:34 l OF OF 00:00: [place] AUTOMATIC AUTOMATIC 00 (IMPLANTAB (IMPLANTAB LE) LE) CARDIAC CARDIAC DEFIBRILLA DEFIBRILLA TOR TOR 10/01/2018 Diagnosis 10/22/2018 [place] E78.5 E78.5 Diagnosis 2018-2018-10-22 2018-10-22 [facility] HYPERLIPID HYPERLIPID 10-01 15:01:34 15:01:34 l EMIA, EMIA, 00:00: [place] UNSPECIFIE UNSPECIFIE 00 D D 10/01/2018 Diagnosis 10/22/2018 [place] K21.9 K21.9 Diagnosis 2018-2018-10-22 2018-10-22 [facility] GASTRO-ESO GASTRO-ESO 10-01 15:01:34 15:01:34 l PHAGEAL PHAGEAL 00:00: [place] REFLUX REFLUX 00 DISEASE DISEASE WITHOUT WITHOUT ESOPHAGITI ESOPHAGITI S S 10/01/2018 Diagnosis 10/22/2018 [facility] R52 PAIN, R52 PAIN, Diagnosis 2018-10-22 2018-10-22 Mem[facility] UNSPECIFIE UNSPECIFIE 10-01 15:01:34 15:01:34 l D D 00:00: [place] 10/01/2018 00 Diagnosis 10/22/2018 [facility] R53.1 R53.1 Diagnosis 2018-10-22 2018-10-22 Memoria WEAKNESS WEAKNESS 10-01 15:01:34 15:01:34 l 10/01/2018 00:00: [place] n Diagnosis 00 10/22/2018 [facility] L30.9 L30.9 Diagnosis 2018-10-22 2018-10-22 Memoria DERMATITIS DERMATITIS 10-01 15:01:34 15:01:34 l , , 00:00: [place] UNSPECIFIE UNSPECIFIE 00 D D 10/01/2018 Diagnosis 10/22/2018 [facility] W19.XXXA W19.XXXA Diagnosis 2018-10-22 2018-10-22 Memoria UNSPECIFIE UNSPECIFIE 10-01 15:01:34 15:01:34 l D FALL, D FALL, 00:00: [place] INITIAL INITIAL 00 ENCOUNTER ENCOUNTER 10/01/2018 Diagnosis 10/22/2018 [place] E66.9 E66.9 Diagnosis 2018-2018-10-22 2018-10-22 Memoria OBESITY, OBESITY, 10-01 15:01:34 15:01:34 l UNSPECIFIE UNSPECIFIE 00:00: [place] D D 00 10/01/2018 Diagnosis 10/22/2018 [place] M43.26 M43.26 Diagnosis 2018-2018-10-22 2018-10-22 Memoria FUSION OF FUSION OF 6-25 15:01:34 15:01:34 l SPINE, SPINE, 00:00: [place] LUMBAR LUMBAR 00 REGION REGION 10/01/2018 Diagnosis 10/22/2018 [place] F32.9 F32.9 Diagnosis 2017-2018-10-22 2018-10-22 Memoria MAJOR MAJOR 3 15:01:34 15:01:34 l DEPRESSIVE DEPRESSIVE 00:00: [place] DISORDER, DISORDER, 00 SINGLE SINGLE EPISODE, EPISODE, UNSPECIFIE UNSPECIFIE D D 07/03/2017 Diagnosis 10/22/2018 [place] R25.1 R25.1 Diagnosis 2017-2018-10-22 2018-10-22 Memoria TREMOR, TREMOR, 07-03 15:01:34 15:01:34 l UNSPECIFIE UNSPECIFIE 00:00: [place] D D 00 07/03/2017 Diagnosis 10/22/2018 [place] Z98.890 Z98.890 Diagnosis 2018-10-22 2018-10-22 Memoria OTHER OTHER 07-03 15:01:34 15:01:34 l SPECIFIED SPECIFIED 00:00: Herm ila POSTPROCED POSTPROCED 00 URAL URAL STATES STATES 07/03/2017 Diagnosis 10/22/2018 [facility] M54.5 LOW M54.5 Diagnosis 2017-2018-10-22 2018-10-22 [facility] BACK PAIN LOW BACK 3 15:01:34 15:01:34 l PAIN 00:00: [place] 07/03/2017 00 Diagnosis 10/22/2018 [facility] I10 I10 Diagnosis 2017-2018-10-22 2018-10-22 [facility] ESSENTIAL ESSENTIAL 3 15:01:34 15:01:34 l (PRIMARY) (PRIMARY) 00:00: [place] HYPERTENSI HYPERTENSI 00 ON ON 07/03/2017 Diagnosis 10/22/2018 [facility] Z96.9 Z96.9 Diagnosis 2017-2018-10-22 2018-10-22 Memoria PRESENCE PRESENCE 3 15:01:34 15:01:34 l OF OF 00:00: [place] FUNCTIONAL FUNCTIONAL 00 IMPLANT, IMPLANT, UNSPECIFIE UNSPECIFIE D D 07/03/2017 Diagnosis 10/22/2018 [place] Chronic Chronic Diagnosis 2017-2018-10-22 2018-10-22 Mem[facility] pain pain 07-03 15:01:34 15:01:34 l syndrome syndrome 00:00: [place] n (disorder) (disorder) 00 07/03/2017 Diagnosis 10/22/2018 [place] Z97.8 Z97.8 Diagnosis 2017-2018-10-22 2018-10-22 Memoria PRESENCE PRESENCE 07-03 15:01:34 15:01:34 l OF OTHER OF OTHER 00:00: [place] SPECIFIED SPECIFIED 00 DEVICES DEVICES 07/03/2017 Diagnosis 10/22/2018 [place] M79.7 M79.7 Diagnosis 2017-2018-10-22 2018-10-22 [facility] FIBROMYALG FIBROMYALG 07-03 15:01:34 15:01:34 l IA IA 00:00: [place] 07/03/2017 00 Diagnosis 10/22/2018 [place] E03.9 E03.9 Diagnosis 2018-10-22 2018-10-22 [facility] HYPOTHYROI HYPOTHYROI 07-03 15:01:34 15:01:34 l DISM, DISM, 00:00: [place] UNSPECIFIE UNSPECIFIE 00 D D 07/03/2017 Diagnosis 10/22/2018 [place] Z90.710 Z90.710 Diagnosis 2018-10-22 2018-10-22 Memoria ACQUIRED ACQUIRED 07-03 15:01:34 15:01:34 l ABSENCE OF ABSENCE OF 00:00: [place] BOTH BOTH 00 CERVIX AND CERVIX AND UTERUS UTERUS 07/03/2017 Diagnosis 10/22/2018 [facility] F41.9 F41.9 Diagnosis 2017-2018-10-22 2018-10-22 Memoria ANXIETY ANXIETY 07-03 15:01:34 15:01:34 l DISORDER, DISORDER, 00:00: [place] UNSPECIFIE UNSPECIFIE 00 D D 07/03/2017 Diagnosis 10/22/2018 [place] Z96.643 Z96.643 Diagnosis 2017-2018-10-22 2018-10-22 Memoria PRESENCE PRESENCE 07-03 15:01:34 15:01:34 l OF OF 00:00: [place] ARTIFICIAL ARTIFICIAL 00 HIP JOINT, HIP JOINT, BILATERAL BILATERAL 07/03/2017 Diagnosis 10/22/2018 [place] Allergies, Adverse Reactions, Alerts Allergy Allergy Status [...] Start Date Stop Date Quantity Comments Source Sexual orientation [facility] Alcohol intake 2017-12-11 2017-12-11 Current [facility] es 00:00:00 00:00:00 non-drinker of [facility] nter alcohol (finding) Tobacco use and 2017-05-15 2017-05-15 Smokeless tobacco [facility] exposure 00:00:00 00:00:00 non-user [facility] Language: 2016-01-03 2016-01-03 [facility] 00:00:00 00:00:00 [place] Sex Ass[birth year] [facility] kes 00:00:00 00:00:00 [facility] Smoking Status Start Date Stop Date Source Social History [facility] Never smoked tobacco [facility] Medications Ordered Filled Start Stop Current Ordering Indication Dosage Frequency Signature Comments Components Source Medication Medication Date Date Medication? Clinician (SIG) Name Name oxyCODONE Yes Give 1 Memori a HCl Tablet 7-01 tablet by l 10 MG 01:00: mouth three times a day for pain oxyCODONE 2019 Yes Give 1 Memori a HCl Tablet 7-01 tablet by l 10 MG 01:00: mouth [place] three times a day for pain oxyCODONE Yes Give 1 Memori a HCl Tablet 7-01 tablet by l 10 MG 01:00: mouth [place] three times a day for pain oxyCODONE Yes Give 1 Memori a HCl Tablet 7-01 tablet by l 10 MG 01:00: mouth [place] three times a day for pain oxyCODONE Yes Give 1 Memori a HCl Tablet 7-01 tablet by l 10 MG 01:00: mouth [place] three times a day for pain QUEtiapine Yes GIVE 1 Memor ia Fumarate 6-27 TABLET BY l Tablet 50 00:00: MOUTH AT Herm ila MG BEDTIME Mirapex Yes GIVE 1 Memoria Tablet 0.5 6-27 TABLET BY l MG 00:00: MOUTH AT [place] BEDTIME QUEtiapine Yes GIVE 1 Memor ia Fumarate 6-27 TABLET BY l Tablet 50 00:00: MOUTH AT [place] il[place] MG BEDTIME Mirapex Yes GIVE 1 Memoria Tablet 0.5 6-27 TABLET BY l MG 00:00: MOUTH AT [place] BEDTIME QUEtiapine Yes GIVE 1 Memor ia Fumarate 6-27 TABLET BY l Tablet 50 00:00: MOUTH AT Herm ila MG BEDTIME Mirapex Yes GIVE 1 Memoria Tablet 0.5 6-27 TABLET BY l MG 00:00: MOUTH AT [place] BEDTIME QUEtiapine Yes GIVE 1 Memor ia Fumarate 6-27 TABLET BY l Tablet 50 00:00: MOUTH AT [place] il[place] MG BEDTIME Mirapex Yes GIVE 1 Memoria Tablet 0.5 6-27 TABLET BY l MG 00:00: MOUTH AT [place] BEDTIME QUEtiapine Yes GIVE 1 Memor ia Fumarate 6-27 TABLET BY l Tablet 50 00:00: MOUTH AT [place] [facility] MG BEDTIME Mirapex Yes GIVE 1 Memoria Tablet 0.5 6-27 TABLET BY l MG 00:00: MOUTH AT [place] BEDTIME Lyrica Yes Give 1 Memoria Capsule 200 6-26 capsule by l MG 20:00: mouth [place] 00 three times a day related to FIBROMYALG IA (M79.7) Lyrica Yes Give 1 [facility] Capsule 200 6-26 capsule by l MG 20:00: mouth [place] 00 three times a day related to FIBROMYALG IA (M79.7) Lyrica Yes Give 1 Memoria Capsule 200 6-26 capsule by l MG 20:00: mouth [place] 00 three times a day related to [...] for supplement ation Vitamin D2 Yes GIVE 75102 M emoria Tablet 6-26 UNIT BY l 12:00: MOUTH ONE [place] 00 TIME A DAY EVERY WED GlycoLax Yes Give 17 Memori a Powder 6-26 gram by l 12:00: mouth one [place] 00 time a day every other day for constipati on (in Liquid) Losartan Yes GIVE 1 Memoria Potassium 6-26 TABLET BY l Tablet 100 12:00: MOUTH ONE [place] MG 00 TIME A DAY HOLD FOR SBP<110, P<60 Furosemide Yes GIVE 1 Memor ia Tablet 20 6-26 TABLET BY l MG 12:00: MOUTH ONE [place] 00 TIME A DAY Pristiq Yes Give [...] a Solution 6-26 mcg l 12:00: subcutaneo [place] 00 usly one time a day related [...] capsule by l MG 12:00: mouth four [place] 00 times a day related to FIBROMYALG IA (M79.7) DESVENLAFAX Yes TAKE 1 TAB Memoria INE ER 50MG 6-26 BY MOUTH l TAB ER 24H 12:00: EVERY DAY [place] 00 Ferrous Yes Give 1 Memoria Sulfate 6-26 tablet by l Tablet 325 12:00: mouth one [place] (65 Fe) MG 00 time a day for supplement ation Vitamin D2 Yes GIVE 24955 M emoria Tablet 6-26 UNIT BY l 12:00: MOUTH ONE [place] 00 TIME A DAY EVERY SUN GlycoLax [...] capsule by l MG 12:00: mouth four [place] 00 times a day related to FIBROMYALG IA (M79.7) DESVENLAFAX Yes TAKE 1 TAB Memoria INE ER 50MG 6-26 BY MOUTH l TAB ER 24H 12:00: EVERY DAY [place] 00 Ferrous Yes Give 1 [facility]oria Sulfate 6-26 tablet by l Tablet 325 12:00: mouth one [place] (65 Fe) MG 00 time a day for supplement ation Vitamin D2 Yes GIVE [id number] M emoria Tablet 6-26 UNIT BY l 12:00: MOUTH ONE [place] 00 TIME A DAY EVERY WED GlycoLax Yes Give 17 Memori a Powder 6-26 gram by l 12:00: mouth one [place] 00 time a day every other day for constipati on (in Liquid) Losartan Yes GIVE 1 [facility] Potassium 6-26 TABLET BY l Tablet 100 12:00: MOUTH ONE [place] MG 00 TIME A DAY HOLD FOR SBP<110, P<60 Furosemide Yes GIVE 1 Memor ia Tablet 20 6-26 TABLET BY l MG 12:00: MOUTH ONE [place] 00 TIME A DAY Pristiq Yes Give 1 Memoria Tablet 6-26 tablet by l Extended 12:00: mouth one [facility] ila Release 24 00 time a day Hour 50 MG related to MAJOR DEPRESSIVE DISORDER, SINGLE EPISODE, UNSPECIFIE D (F32.9) oxyCODONE Yes Give 1 Memori a HCl Tablet 6-26 tablet by l 10 MG 12:00: mouth [place] 00 three times a day for pain [...] 6-26 AFFECTED l 1-0.05 % 12:00: AREA [place] 00 TOPICALLY TWO TIMES A DAY BOTH [...] for supplement ation Vitamin D2 Yes GIVE 16208 M emoria Tablet 6-26 UNIT BY l [...] TABLET BY l MG 12:00: MOUTH ONE [place] 00 TIME A DAY Pristiq Yes Give 1 Memoria Tablet 6-26 tablet by l Extended 12:00: mouth one [place] il[facility] Release 24 00 time a day Hour 50 MG related to MAJOR DEPRESSIVE DISORDER, SINGLE EPISODE, UNSPECIFIE D (F32.9) oxyCODONE Yes Give 1 Memori a HCl Tablet 6-26 tablet by l 10 MG 12:00: mouth [place] 00 three times a day for pain for 7 Days Centrum Yes Give 1 Memoria Adults 6-26 tablet by l Tablet 12:00: mouth one [place] n 00 time a day for Dietary Supplement Forteo Yes Inject 20 Memori a Solution 6-26 mcg l 12:00: subcutaneo [place] 00 usly one time a day related [...] for supplement ation Vitamin D2 Yes GIVE 99673 M emoria Tablet 6-26 UNIT BY l [...] BEFORE A MEAL TI FOR NEXIUM Levothyroxi 2019 Yes GIVE 1 Inder homar ne Sodium 6-26 TABLET BY l Tablet 112 10:00: MOUTH ONE [place] MCG 00 TIME A DAY GIVE 30 MINUTES BEFORE BREAKFAST ON EMPTY STOMACH OMEPRAZOLE 2019 Yes 1 CAP BY Mem oria 20MG 6-[address] 10:00: EVERY DAY [place] 00 AT LEAST 30MINUTES BEFORE A MEAL TI FOR NEXIUM Levothyroxi 2019 Yes GIVE 1 Inder homar ne Sodium [...] 00 every 12 hours for constipati on gabapentin Yes 300mg Q.[id number] Take [address] [facility] (NEURONTIN) 12-13 [id number] mg by L ukes 300 MG 16:19: [...] (LASIX) 20 12-13 n by mouth [facility] MG tablet 16:19: daily. Medica l 24 Center levothyroxi 0 Yes 112ug Take [address] ne 9-06 mcg by [facility] (SYNTHROID, 16:19: mouth Medic al LEVOTHROID) 24 Every Center 112 MCG morning on tablet an empty stomach. pregabalin 2017-0 Yes 225mg Q.5D Take [address] (LYRICA) 12-13 mg by [facility] 225 MG 16:19: mouth 2 Medical capsule 24 (two) Center times daily. clotrimazol 2018-0 Yes Q.5D Apply [facility]-betametha 12-13 topically Jael es sone 16:19: 2 (two) Medical (LOTRISONE) 24 times Center 1-0.05 % daily. cream cholecalcif 2017-0 Yes [id number] Q7D Take [facility] brady, 12-13 50,000 [facility] vitamin D3, 16:19: Units by [place] dical (DECARA) 24 mouth once Cente r [...] 2{spray [address] [facility] ne (AFRIN) 9-06 } by Nasal [facility] 0.05 % 16:19: route 2 Medical nasal spray 24 (two) Center times daily as needed for Congestion . diphenhydrA 2018-0 Yes 25mg Take [address] MINE 9-06 by mouth [facility] (ZZZQUIL) 16:19: every Medical 25 mg 24 night as Center capsule needed (sleep). MENTHOL 2018-0 Yes 1{patch Q.5D Apply [address] [facility] [address] (ICY HOT - } patch [facility] PATCH TOP) 16:19: topically Me dical 24 2 (two) Center times daily. gabapentin 2018-0 Yes 300mg Q.[id number] Take [address] (NEURONTIN) 9-06 [id number] mg by L ukes 300 MG 16:19: [...] 1-0.05 % daily. cream cholecalcif 2018-0 Yes [id number] Q7D Take [facility] brady, 12-13 50,000 [...] Take [address] (RESTORIL) 9 by mouth [facility] 15 mg 16:19: every [...] 2{spray [address] ne (AFRIN) - } by Nasal [facility] 0.05 % 16:19: [...] Center times daily. gabapentin 2018-0 Yes 300mg Q.[id number] Take [address] (NEURONTIN) 12-13 [id number] mg by L ukes 300 MG 16:19: [...] (LASIX) 20 06 n by mouth [facility] MG tablet 16:19: daily. Medica l 24 Center levothyroxi 2018-0 Yes 112ug Take [address] ne 9 mcg by [facility] (SYNTHROID, 16:19: mouth Medic al LEVOTHROID) 24 Every Center 112 MCG morning on tablet an empty stomach. pregabalin 2018-0 Yes 225mg Q.5D Take [address] (LYRICA) 9- mg by [facility] 225 MG 16:19: mouth 2 Medical capsule 24 (two) Center times daily. clotrimazol 2018-0 Yes Q.5D Apply [facility] e-betametha 12-13 topically Jael es sone 16:19: 2 (two) Medical (LOTRISONE) 24 times Center 1-0.05 % daily. cream cholecalcif 2018-0 Yes [id number] Q7D Take [facility] brady, 12-13 50,000 [...] 25mg Take [address] MINE 9- by mouth [facility] (ZZZQUIL) 16:19: every Medical 25 mg 24 night as Center capsule needed (sleep). MENTHOL 2018-0 Yes 1{patch Q.5D Apply [address] [facility] (ICY HOT 12-13 } patch [facility] PATCH TOP) 16:19: topically Me dical 24 2 (two) Center times daily. gabapentin 2018-0 Yes 300mg Q.[id number] Take [address] (NEURONTIN) 9- [id number] mg by L ukes 300 MG 16:19: [...] S t e-betametha 9-06 topically Jael es sone 16:19: 2 (two) Medical (LOTRISONE) 24 times Center 1-0.05 % daily. cream cholecalcif 2018-0 Yes [id number] Q7D Take [facility] brady, 9- 50,000 [facility] vitamin D3, 16:19: Units by Wa dical (DECARA) 24 mouth once Cente r 50,000 unit a week. capsule desvenlafax 0 Yes 50mg QD Take [address] ine 9-06 by mouth [facility] succinate 16:19: daily. Medica l (PRISTIQ) 24 Center 50 MG 24 hr tablet mirtazapine 0 Yes 15mg QD Take [address] [facility] (REMERON) 9-06 by mouth [facility] 30 MG 16:19: nightly . Medical tablet 24 Center temazepam 0 Yes 15mg Take [address] (RESTORIL) 9-06 by mouth [facility] 15 mg 16:19: every Medical capsule 24 night as Center needed for Sleep. lidocaine 2017-0 Yes 1{patch Q24H Place [address] (LIDODERM) 9- } patch onto Jael es 5 % [...] 25mg Take [address] [facility] MINE 06 by mouth [facility] (ZZZQUIL) 16:19: every Medical 25 mg 24 night as Center capsule needed (sleep). MENTHOL 2018-0 Yes 1{patch Q.5D Apply [address] [facility] [address] (ICY HOT 12-13 } patch [facility] PATCH TOP) 16:19: topically Me dical 24 2 (two) Center times daily. gabapentin 2018-0 Yes 300mg Q.[id number] Take [address] (NEURONTIN) 12-13 [id number] mg by L ukes 300 MG 16:19: 3D mouth 3 Medical capsule 24 (three) Center times daily. levothyroxi 2018-0 Yes 112ug Take [address] ne 12-13 mcg by [facility] (SYNTHROID, 16:19: mouth Medic al LEVOTHROID) 24 Every Center 112 MCG morning on tablet an empty stomach. pregabalin 2018-0 Yes 225mg Q.5D Take [address] (LYRICA) 12-13 mg by [facility] 225 MG 16:19: mouth 2 Medical capsule 24 (two) Center times daily. clotrimazol 2018-0 Yes Q.5D Apply [facility] e-betametha 12-13 topically Jael es sone 16:19: 2 (two) Medical (LOTRISONE) 24 times Center 1-0.05 % daily. cream cholecalcif 2018-0 Yes [id number] Q7D Take [facility] brady, 12-13 50,000 [...] Center times daily. gabapentin 2018-0 Yes 300mg Q.[id number] Take [address] (NEURONTIN) 9- [id number] mg by L ukes 300 MG 16:19: [...] tablet 16:19: daily. Medica l 24 Center oxyCODONE 2018-0 Yes 15mg Take [address] (ROXICODONE 12-13 by mouth Luke s ) 15 MG 16:19: every 4 Medical immediate 24 (four) Center release hours as tablet needed for Pain. furosemide 2017-0 Yes hypertensio 10mg QD Take [address] [facility] [facility] (LASIX) 20 12-13 n by mouth [facility] MG tablet 16:19: daily. Medica l 24 Center levothyroxi 0 Yes 112ug Take [address] ne 9- mcg by [facility] (SYNTHROID, 16:19: mouth Medic al LEVOTHROID) 24 Every Center 112 MCG morning on tablet an empty stomach. pregabalin 2018-0 Yes 225mg Q.5D Take [address] (LYRICA) 12-13 mg by [facility] 225 MG 16:19: mouth 2 Medical capsule 24 (two) Center times daily. clotrimazol 2018-0 Yes Q.5D Apply [facility] e-betametha 12-13 topically Jael es sone 16:19: 2 (two) Medical (LOTRISONE) 24 times Center 1-0.05 % daily. cream cholecalcif 2017-0 Yes [id number] Q7D Take [facility] brady, 12-13 50,000 [facility] vitamin D3, 16:19: Units by Me dical (DECARA) 24 mouth once Cente r 50,000 unit a week. capsule desvenlafax 0 Yes 50mg QD Take [address] ine 12-13 by mouth [facility] succinate 16:19: daily. Medica [...] mouth Medical tablet 24 nightly. Center docusate 2017- Yes 100mg Q.5D Take [address] sodium 9-06 mg by [facility] (COLACE) 16:19: mouth 2 Medica l 100 MG 24 (two) Center capsule times daily. oxymetazoli 2017- Yes 2{spray [address] [facility] ne (AFRIN) - } by Nasal [facility] 0.05 % 16:19: route 2 Medical nasal spray 24 (two) Center times daily as needed for Congestion . diphenhydrA Yes 25mg Take [address] MINE 9-06 by mouth [facility] (ZZZQUIL) 16:19: every Medical 25 mg 24 night as Center capsule needed (sleep). MENTHOL 2017- Yes 1{patch Q.5D Apply [address] [facility] (ICY HOT - } patch [facility] PATCH TOP) 16:19: topically Me dical 24 2 (two) Center times daily. Temazepam Yes Give 1 Memori a Capsule 15 4-14 capsule by l MG 05:00: mouth [place] 00 every 24 hours as needed for insomnia Temazepam Yes Give 1 Memori a Capsule 15 4-14 capsule by l MG 05:00: mouth [place] 00 every 24 hours as needed for insomnia Temazepam Yes Give 1 Memori a Capsule 15 4-14 capsule by l MG 05:00: mouth [place] 00 every 24 hours as needed for insomnia Temazepam Yes Give 1 Memori a Capsule 15 4-14 capsule by l MG 05:00: mouth [place] 00 every 24 hours as needed for insomnia Temazepam Yes Give 1 Memori a Capsule 15 4-14 capsule by l MG 05:00: mouth [place] 00 every 24 hours as needed for insomnia Ibuprofen Yes GIVE 1 Memori a Tablet 400 4-12 TABLET BY l MG 20:00: MOUTH [place] 00 THREE TIMES A DAY FOR 7 DAYS Ibuprofen Yes GIVE 1 Memori a Tablet 400 4-12 TABLET BY l MG 20:00: MOUTH [place] 00 THREE TIMES A DAY FOR 7 [...] tablet by l 15 MG 16:15: mouth [place] 00 every 6 hours as needed for For pain OxyCODONE Yes Give 1 Memori a HCl Tablet 4-07 tablet by l 15 MG 16:15: mouth [place] 00 every 6 hours as needed for For pain OxyCODONE Yes Give 1 Memori a HCl Tablet 4-07 tablet by l 15 MG 16:15: mouth [place] 00 every 6 hours as needed for For pain OxyCODONE Yes Give 1 Memori a HCl Tablet 4-07 tablet by l 15 MG 16:15: mouth [place] 00 every 6 hours as needed for For pain Temazepam Yes Give 2 Memori a Capsule 7.5 4-07 capsule by l MG 03:00: mouth [place] 00 every 24 hours as needed for insomnia give 2 tabs = 15mg Temazepam 2017- Yes Give 2 Memori a Capsule 7.5 4-07 capsule by l MG 03:00: mouth [place] 00 every 24 hours as needed for insomnia give 2 tabs = 15mg Temazepam 2017- Yes Give 2 Memori a Capsule 7.5 4-07 capsule by l MG 03:00: mouth [place] 00 every 24 hours as needed for insomnia give 2 tabs = 15mg Temazepam 2017- Yes Give 2 Memori a Capsule 7.5 4-07 capsule by l MG 03:00: mouth [place] 00 every 24 hours as needed for insomnia give 2 tabs = 15mg Temazepam 2017- Yes Give 2 Memori a Capsule 7.5 4-07 capsule by l MG 03:00: mouth [place] 00 every 24 hours as needed for insomnia give 2 tabs = 15mg Amoxicillin 2017- Yes GIVE 1 Inder homar -Pot 4-06 TABLET BY l Clavulanate 00:00: MOUTH [place] nn Tablet 00 EVERY 12 875-125 MG HOURS FOR 7 DAYS Amoxicillin 2018-0 Yes GIVE 1 Inder homar -Pot 4-06 TABLET BY l Clavulanate 00:00: MOUTH [place] nn Tablet 00 EVERY 12 875-125 MG HOURS FOR 7 DAYS Amoxicillin 2018-0 Yes GIVE 1 Inder homar -Pot 4-06 TABLET BY l Clavulanate 00:00: MOUTH [place] nn Tablet 00 EVERY 12 875-125 MG HOURS FOR 7 DAYS Amoxicillin 2018-0 Yes GIVE 1 Inder homar -Pot 4-06 TABLET BY l Clavulanate 00:00: MOUTH [place] nn Tablet 00 EVERY 12 875-125 MG HOURS FOR 7 DAYS Amoxicillin 2018-0 Yes GIVE 1 Inder homar -Pot 4-06 TABLET BY l Clavulanate 00:00: MOUTH [place] nn Tablet 00 EVERY 12 875-125 MG HOURS FOR 7 DAYS Temazepam 2017-0 Yes Give 1 Mem[facility] a Capsule 15 4-05 tablet by l MG 23:53: mouth [place] 00 every 24 hours as needed for sleep until 07/16/2017 23:59 Temazepam 2018-0 Yes Give 1 Mem[facility] a Capsule 15 4-05 tablet by l MG 23:53: mouth [place] 00 every 24 hours as needed for sleep until 07/16/2017 23:59 Temazepam 2018-0 Yes Give 1 Memori a Capsule 15 4-05 tablet by l MG 23:53: mouth [place] 00 every 24 hours as needed for sleep until 07/16/2017 23:59 Temazepam 2018-0 Yes Give 1 Memori a Capsule 15 4-05 tablet by l MG 23:53: mouth [place] 00 every 24 hours as needed for sleep until 07/16/2017 23:59 Temazepam 2018-0 Yes Give 1 Memori a Capsule 15 4-05 tablet by l MG 23:53: mouth [place] 00 every 24 hours as needed for sleep until 07/16/2017 23:59 Temazepam 2018-0 Yes Give 1 Memori a Capsule 15 4-05 capsule by l MG 20:45: mouth [place] 00 every 24 hours as needed for Insomnia Temazepam 2017-0 Yes Give 1 Memori a Capsule 15 4-05 capsule by l MG 20:45: mouth [place] 00 every 24 hours as needed for Insomnia Temazepam 2017-0 Yes Give 1 Memori a Capsule 15 4-05 capsule by l MG 20:45: mouth [place] 00 every 24 hours as needed for Insomnia Temazepam Yes Give 1 Memori a Capsule 15 4-05 capsule by l MG 20:45: mouth [place] 00 every 24 hours as needed for Insomnia Temazepam Yes Give 1 [facility] a Capsule 15 4-05 capsule by l MG 20:45: mouth [place] 00 every 24 hours as needed for [...] 4-04 tablet by l Delayed 15:00: mouth [place] Release 5 00 every 24 MG hours as needed for constipati on Bisacodyl Yes Give 2 Memori a EC Tablet 4-04 tablet by l Delayed 15:00: mouth [place] Release 5 00 every 24 MG hours as needed for constipati on Bisacodyl Yes Give 2 Memori a EC Tablet 4-04 tablet by l Delayed 15:00: mouth [place] Release 5 00 every 24 MG hours as needed for constipati on Acetaminoph Yes Give 2 Inder homar en Tablet 4-02 tablet by l 325 MG 20:45: mouth [place] 00 every 6 hours as needed for pain and fever greater than 100.4 Acetaminoph Yes Give 2 Inder homar en Tablet 4-02 tablet by l 325 MG 20:45: mouth [place] 00 every 6 hours as needed for pain and fever greater than 100.4 Acetaminoph Yes Give 2 Inder homar en Tablet 4-02 tablet by l 325 MG 20:45: mouth [place] 00 every 6 hours as needed for pain and fever greater than 100.4 Acetaminoph Yes Give 2 Inder homar en Tablet 4-02 tablet by l 325 MG 20:45: mouth [place] 00 every 6 hours as needed for pain and fever greater than 100.4 Acetaminoph Yes Give 2 Inder homar en Tablet 4-02 tablet by l 325 MG 20:45: mouth [place] 00 every 6 hours as needed for pain and fever greater than 100.4 Decara Yes Give 30770 Memor ia Capsule 3-[place] [id number] UNIT 12:00: mouth one [place] 00 time a day every Hannah for Vitamin Supplement Decara Yes Give 91235 Memor ia Capsule 3-[place] [id number] UNIT 12:00: mouth one [place] 00 time a day every [place] for Vitamin Supplement Decara Yes Give 20903 Mem[facility] ia Capsule 3-[place] l [id number] UNIT 12:00: mouth one [place] 00 time a day every [place] for Vitamin Supplement Decara Yes Give 42407 Memor ia Capsule 3-29 [place] [id number] UNIT 12:00: mouth one [place] 00 time a day every [place] for Vitamin Supplement Decara Yes Give 89965 Memor ia Capsule 3-[place] [id number] UNIT 12:00: mouth one [place] 00 [...] a Patch 3-28 affected l 12:00: area [place] 00 topically two times a day for [...] 5 % 3-28 RIGHT l 12:00: THIGH [place] 00 TOPICALLY ONE TIME A DAY APPLY [...] a Patch 3-28 affected l 12:00: area [place] 00 topically two times a day for [...] 5 % 3-28 RIGHT l 12:00: THIGH [place] 00 TOPICALLY ONE TIME A DAY APPLY TO (SPECIFY SITE) AND REMOVE PER SCHEDULE DESVENLAFAX 2018- Yes 1 TAB BY Me moria INE [...] 5 % 3-28 RIGHT l 12:00: THIGH [place] 00 TOPICALLY ONE TIME A DAY APPLY [...] 3-28 tablet by l MG 05:00: mouth [place] 00 every 24 hours as needed for sleep for 14 Days Cyclobenzap Yes GIVE 1 Inder homar rine HCl 3-28 TABLET BY l Tablet 5 MG 05:00: MOUTH [place] nn 00 EVERY 8 HOURS NEEDED FOR MUSCLE SPASMS FOR 10 DAYS Temazepam Yes Give 1 [facility] a Capsule 15 3-28 tablet by l MG 05:00: mouth [place] 00 every 24 hours as needed for sleep for 14 Days Cyclobenzap Yes GIVE 1 Inder homar rine HCl 3-28 TABLET BY l Tablet 5 MG 05:00: MOUTH [place] nn 00 EVERY 8 HOURS NEEDED FOR MUSCLE SPASMS FOR 10 DAYS Temazepam Yes Give 1 [facility] a Capsule 15 3-28 tablet by l MG 05:00: mouth [place] 00 every 24 hours as needed for [...] 3-28 tablet by l MG 05:00: mouth [place] 00 every 24 hours as needed for sleep for 14 Days Mirtazapine Yes GIVE 1 Inder homar Tablet 30 3-28 TABLET BY l MG 00:00: MOUTH AT [place] 00 BEDTIME Mirapex Yes GIVE 1 [facility]oria Tablet 0.5 3-28 TABLET BY l MG 00:00: MOUTH AT [place] 00 BEDTIME Lyrica Yes Give 1 [facility] Capsule 225 3-28 capsule by l MG 00:00: mouth two [place] 00 times a day related to FIBROMYALG [...] TABLET BY l MG 00:00: MOUTH AT [place] 00 BEDTIME Mirapex Yes GIVE 1 Memoria Tablet 0.5 3-28 TABLET BY l MG 00:00: MOUTH AT [place] 00 BEDTIME Lyrica Yes Give 1 [facility] Capsule 225 3-28 capsule by l MG 00:00: mouth two [place] 00 times a day related to FIBROMYALG IA (M79.7) Clotrimazol Yes Apply to Me moria e-Betametha 3-28 affected l sone Cream 00:00: area [place] 1-0.05 % 00 topically two times a [...] TABLET BY l MG 00:00: MOUTH AT [place] 00 BEDTIME Lyrica Yes Give 1 [facility] Capsule 225 3-28 capsule by l MG 00:00: mouth two [place] 00 times a day related to FIBROMYALG IA (M79.7) Clotrimazol Yes Apply to Me moria e-Betametha 3-28 affected l sone Cream 00:00: area [place] 1-0.05 % 00 topically two times a day for affected area Docusate Yes Give 1 Memoria Sodium 3-28 capsule by l Capsule 100 00:00: mouth two H ermann MG 00 times a day for Constipati on Mirtazapine Yes GIVE 1 Inder homar Tablet 30 3-28 TABLET BY l MG 00:00: MOUTH AT [place] BEDTIME Mirapex Yes GIVE 1 Memoria Tablet 0.5 3-28 TABLET BY l MG 00:00: MOUTH AT [place] BEDTIME Lyrica Yes Give 1 [facility] Capsule 225 3-28 capsule by l MG 00:00: mouth two [place] 00 times a day related to FIBROMYALG IA (M79.7) Clotrimazol Yes Apply to Me mor[facility] e-Betametha 3-28 affected l sone Cream 00:00: area [place] 1-0.05 % 00 topically two times a [...] TABLET BY l MG 00:00: MOUTH AT [place] 00 BEDTIME Lyrica Yes Give 1 [facility] Capsule 225 3-28 capsule by l MG 00:00: mouth two [place] 00 times a day related to FIBROMYALG IA (M79.7) Clotrimazol Yes Apply to Me mor[facility] e-Betametha 3-28 affected l sone Cream 00:00: area [place] 1-0.05 % 00 topically two times a [...] tablet by l 15 MG 20:45: mouth [place] 00 every 6 hours as needed for severe pain for 10 Days Acetaminoph Yes Give 2 Inder homar en Tablet 3-27 tablet by l 325 MG 20:45: mouth [place] 00 every 6 hours as needed for pain OxyCODONE Yes Give 1 Mem[facility] a HCl Tablet 3-27 tablet by l 15 MG 20:45: mouth [place] 00 every 6 hours as needed for severe pain for 10 Days Acetaminoph 2018-0 Yes Give 2 Inder homar en Tablet 3-27 tablet by l 325 MG 20:45: mouth [place] 00 every 6 hours as needed for pain OxyCODONE 2018 Yes Give 1 Memori a HCl Tablet [...] tablet by l 15 MG 20:45: mouth [place] 00 every 6 hours as needed for severe pain for 10 Days hydrochloro Yes Brigid HannaElías 1 tab(s) Memoria thiazide-lo 2-08 Bria l sartan 00:00: [place] 00 hydrochloro 2017-0 Yes Brigid HannaElías 1 tab(s) Memoria thiazide-lo 2-08 Bria l sartan 00:00: [place] 00 hydrochloro 2017-0 Yes Brigid HannaElías 1 tab(s) Memoria thiazide-lo 2-08 Bria l sartan 00:00: [place] 00 hydrochloro 2017-0 Yes Brigid Elías 1 tab(s) Memoria thiazide-lo 2-08 Bria l sartan 00:00: [place] 00 hydrochloro 2017-0 Yes Brigid Elías 1 tab(s) Memoria thiazide-lo 2-08 Bria l sartan 00:00: [place] 00 lorazepam 2017-0 Yes Brigid HannaElías 1 tab(s) Memoria 1-26 Bria l 03:03: [place] 13 lorazepam 2017-0 Yes Brigid HannaElías 1 tab(s) Memoria 1-26 Bria l 03:03: [place] 13 lorazepam 2017-0 Yes Brigid HannaElías 1 tab(s) Memoria 1-26 Bria l 03:03: [place] 13 lorazepam 2017-0 Yes J Elías 1 tab(s) Memoria 1-26 Bria l 03:03: [place] 13 lorazepam 2017-0 Yes J Elías 1 tab(s) Memoria 1-26 Bria l 03:03: [place] 13 ibandronate 2015-04 Yes Milagros Tejeda 1 tab(s) Memoria 0-13 l 02:18: [place] 44 levothyroxi 2015-04 Yes Milagros Tejeda 1 [...] moria 0.5% 0-13 l topical 02:18: [place] [facility] 44 fenofibrate 2015-04 Yes Milagros Tejeda 1 tab(s) Memoria 0-13 l 02:18: [place] 44 clonidine 2015-04 Yes Milagros Tejeda 1 tab(s) Memoria 0-13 l 02:18: [place] 44 hydrochloro 2015-04 Yes Milagros Tejeda 1 tab(s) Memoria thiazide-lo 0-13 l sartan 02:18: [place] 44 levothyroxi 2015-04 Yes Milagros Lu 1 tab(s) Memoria ne 0-13 l 02:18: [place] 44 fenofibrate 2015-04 Yes Milagros Ileana 1 tab(s) Memoria 0-13 l 02:18: [place] 44 Vitamin D3 2015-04 Yes Milagros Tejeda 1 cap(s) Memoria 0-13 l 02:18: [place] 44 mirtazapine 2015-04 Yes Milagros Ileana 1 tab(s) Memoria 0-13 l 02:18: [place] 44 ibandronate 2015- Yes Milagros Ileana 1 tab(s) Memoria 0-13 l 02:18: [place] 44 zolpidem 2015-04 Yes Milagros Ileana 1 tab(s) Memoria 0-13 l 02:18: [place] Pristiq 2015-04 Yes Milagros Ileana 1 tab(s) Memoria 0-13 l 02:18: [place] lidocaine 2015-04 Yes Milagros Ileana - Me [place] 0.5% 0-13 l topical 02:18: [place] [facility] 44 Butrans 2015-04 Yes Milagros Ileana 1 patch M emoria 0-13 l 02:18: [place] clonidine 2015-04 Yes Milagros Ileana 1 tab(s) Memoria 0-13 l 02:18: [place] hydrochloro 2015-04 Yes Milagros Ileana 1 tab(s) Memoria thiazide-lo 0-13 l sartan 02:18: [place] ibandronate 2015-04 Yes Milagros Ileana 1 tab(s) Memoria 0-13 l 02:18: [place] levothyroxi 2015-04 Yes Milagros Ileana 1 tab(s) Memoria ne 0-13 l 02:18: [place] Pristiq 2015-04 Yes Milagros Ileana 1 tab(s) Memoria 0-13 l 02:18: [place] Vitamin D3 2015-04 Yes Milagros Ileana 1 cap(s) Memoria 0-13 l 02:18: [place] mirtazapine 2015-04 Yes Milagros Ileana 1 tab(s) Memoria 0-13 l 02:18: [place] 44 zolpidem 2015-04 Yes Milagros Ileana 1 tab(s) Memoria 0-13 l 02:18: [place] Butrans 2015-04 Yes Milagros Ileana 1 patch M emoria 0-13 l 02:18: [place] 44 lidocaine 2015-04 Yes Milagros Ileana - Me [place] 0.5% 0-13 l topical 02:18: [place] [facility] 44 fenofibrate 2015-04 Yes Milagros Ileana 1 tab(s) Memoria 0-13 l 02:18: [place] 44 clonidine 2015- Yes Milagros Ileana 1 tab(s) Memoria 0-13 l 02:18: [place] 44 hydrochloro 2015-04 Yes Milagros Ileana 1 tab(s) Memoria thiazide-lo 0-13 l sartan 02:18: [place] 44 ibandronate 2015-04 Yes Milagros [...] moria 0.5% 0-13 l topical 02:18: [place] hanna 44 fenofibrate 2015-04 Yes Milagros Ileana 1 tab(s) Memoria 0-13 l 02:18: [place] 44 clonidine 2015-04 Yes Milgaros Ileana 1 tab(s) Memoria 0-13 l 02:18: [place] 44 hydrochloro 2015-04 Yes Milagros Ileana 1 tab(s) Memoria thiazide-lo 0-13 l sartan 02:18: [place] 44 ibandronate 2015-04 Yes Milagros [...] 1 tab(s) Memoria 0-13 l 02:18: 44 Butrans 2015-04 Yes Milagros Tejeda 1 patch M emoria 0-13 l 02:18: 44 lidocaine 2015-04 Yes Milagros Tejeda - moria 0.5% 0-13 l topical 02:18: [place] [facility] 44 fenofibrate 2015-04 Yes Milagros Tejeda 1 tab(s) Memoria 0-13 l 02:18: 44 clonidine 2015-04 Yes Milagros Tejeda 1 tab(s) Memoria 0-13 l 02:18: 44 hydrochloro 2015-04 Yes Milagros Tejeda 1 tab(s) Memoria thiazide-lo 0-13 l sartan 02:18: ergocalcife Yes Milagros Tejeda 1 cap(s) Memoria rol - l 00:00: clotrimazol Yes Milagros Tejeda 1 noy Memoria e topical 01-02 l 00:00: [place] Yes Brigid Becketto 1 cap(s) M emoria 01-02 Bria l 00:00: [place] Yes Brigid Becketto 1 cap(s) M emoria 01-02 Bria l 00:00: ergocalcife Yes Milagros Tejeda 1 cap(s) Memoria rol 01-02 l 00:00: clotrimazol Yes Milagros Tejeda 1 noy Memoria e topical - l 00:00: ergocalcife Yes Milagros Tejeda 1 cap(s) Memoria rol -26 l 00:00: clotrimazol Yes Milagros Tejeda 1 noy Memoria e topical 01-02 l 00:00: [place] [id number] Yes Brigid HannaElías 1 cap(s) M emoria 01-02 Bria l 00:00: ergocalcife 2016-0 Yes Milagros Tejeda 1 cap(s) Memoria rol 01-02 l 00:00: clotrimazol 2016-0 Yes Milagros Tejeda 1 noy Memoria e topical 01-02 l 00:00: [place] 20160 Yes Brigid HannaElías 1 cap(s) M emoria 01-02 Bria l 00:00: ergocalcife 20160 Yes Milagros Tejeda 1 cap(s) Memoria rol 01-02 l 00:00: clotrimazol 2016-0 Yes Milagros Tejeda 1 noy Memoria e topical 01-02 l 00:00: [place] [id number] Yes Brigid Becketto 1 cap(s) M emoria 01-02 Bria l 00:00: PrednisoLON 2016-0 Yes Milagros Tejeda 1 gtt Memoria E Na 6-27 l Phosphate-N 00:00: Bla[place] n a 00 Sulfacetami de Vigamox 2016-0 Yes Brandon 1 gtt Inder homar 6-27 Davis l 00:00: Vigamox 2016-0 Yes Brandon 1 gtt Inder homar 6-27 Davis l 00:00: PrednisoLON 2016-0 Yes Milagros Tejeda 1 gtt Memoria E Na 6-27 l Phosphate-N 00:00: [place] n a 00 Sulfacetami de PrednisoLON 2016-0 Yes Milagros Tejeda 1 gtt Memoria E Na 6-27 l Phosphate-N 00:00: [place] n a 00 Sulfacetami de Vigamox 2016-0 Yes Brandon 1 gtt Inder homar 6-27 Davis l 00:00: PrednisoLON 2016-0 Yes Milagros Tejeda 1 gtt Memoria E Na 6-27 l Phosphate-N 00:00: [place] n a 00 Sulfacetami de Vigamox 2016-0 Yes Brandon 1 gtt Inder homar 6-27 Davis l 00:00: PrednisoLON 2016-0 Yes Milagros Tejeda 1 gtt Memoria E Na 6-27 l Phosphate-N 00:00: [place] n a Sulfacetami de Vigamox 2015-0 Yes Brandon 1 gtt Inder homar 6-27 Davis l 00:00: Ly[place] 0 Yes [place] 1 cap(s) Me moria 6-01 Davis l 00:00: [place] 00 Lyrica 0 Yes Brandon 1 cap(s) Me moria 6-01 Davis l 00:00: Lyrica Yes [place] 1 cap(s) Me moria 6-01 Davis l 00:00: [place] 00 Lyrica 0 Yes Brandon 1 cap(s) Me moria 6-01 Davis l 00:00: Lyrica Yes Brandon 1 cap(s) Me moria 6-01 Davis l 00:00: Ly[place] 0 Yes [place] 1 cap(s) Me moria 4-29 Davis l 02:37: [place] 52 Lyrica 0 Yes Brandon 1 cap(s) Me moria 4-29 Davis l 02:37: [place] 52 Lyrica 0 Yes Brandon 1 cap(s) Me moria 4-29 Davis l 02:37: [place] 52 Lyrica 0 Yes Brandon 1 cap(s) Me moria 4-29 Davis l 02:37: [place] 52 Lyrica 0 Yes Brandon 1 cap(s) Me moria 4-29 Davis l 02:37: [place] 52 hydrochloro Yes Brandon 1 tab(s) Memoria thiazide-lo 2-29 Davis l sartan 00:00: [place] 00 hydrochloro 20160 Yes Brandon 1 tab(s) Memoria thiazide-lo 2-29 Davis l sartan 00:00: hydrochloro 2016-0 Yes [place] 1 tab(s) Memoria thiazide-lo 2-29 Davis l sartan 00:00: [place] 00 hydrochloro 2016-0 Yes [place] 1 tab(s) Memoria thiazide-lo 2-29 Davis l sartan 00:00: [place] 00 hydrochloro 2015-0 Yes Brandon 1 tab(s) Memoria thiazide-lo 2-29 Davis l sartan 00:00: [place] 00 benzonatate 2016-0 Yes Brandon 1 cap(s) Memoria 2-12 Davis l 03:39: [place] 44 benzonatate 2016-0 Yes Brandon 1 cap(s) Memoria 2-12 Davis l 03:39: [place] 44 benzonatate 2016-0 Yes [place] 1 cap(s) Memoria 2-12 Davis l 03:39: [place] 44 benzonatate 2016-0 Yes Brandon 1 cap(s) Memoria 2-12 Davis l 03:39: [place] 44 benzonatate 2016-0 Yes Brandon 1 cap(s) Memoria 2-12 Davis l 03:39: [place] 44 Lyrica 2015-1 Yes Brandon 1 cap(s) Me moria 1-23 Davis l 00:00: Lyrica 2015-1 Yes [place] 1 cap(s) Me moria 1-23 Davis l 00:00: Lyrica 2015-1 Yes [place] 1 cap(s) Me moria 1-23 Davis l 00:00: Lyrica 2015-1 Yes Brandon 1 cap(s) Me moria 1-23 Davis l 00:00: Lyrica 2015-1 Yes [place] 1 cap(s) Me moria 1-23 Davis l 00:00: Levaquin 2015-1 Yes Brandon 1 tab(s) Memoria 1-04 Davis l 00:00: Levaquin 2015-1 Yes [place] 1 tab(s) Memoria 1-04 Davis l 00:00: Levaquin 2015-1 Yes [place] 1 tab(s) Memoria 1-04 Davis l 00:00: [place] 00 Levaquin 2015-1 Yes Brandon 1 tab(s) Memoria 1-04 Davis l 00:00: [place] 00 Levaquin 2015-1 Yes Brandon 1 tab(s) Memoria 1-04 Davis l 00:00: ofloxacin 2015-0 Yes Brandon 2 gtt Me moria ophthalmic 9-28 Davis l 00:00: [place] 00 ofloxacin 2015-0 Yes Brandon 2 gtt Me moria ophthalmic 9-28 Davis l 00:00: [place] 00 ofloxacin 2015-0 Yes Brandon 2 gtt Me moria ophthalmic 9-28 Davis l 00:00: [place] 00 ofloxacin 2014-0 Yes Brandon 2 gtt Me moria ophthalmic 9-28 Davis l 00:00: ofloxacin 2014-0 Yes Brandon 2 gtt Me moria ophthalmic 9-28 Davis l 00:00: Betamethaso 2015-0 Yes Brandon 1 noy Memoria ne-Clotrima 8-11 Davis l zole 00:00: Betamethaso 2015-0 Yes Brandon 1 noy Memoria ne-Clotrima 8-11 Davis l zole 00:00: Betamethaso 2015-0 Yes Brandon 1 noy Memoria ne-Clotrima 8-11 Davis l zole 00:00: Betamethaso 2015-0 Yes Brandon 1 noy Memoria ne-Clotrima 8-11 Davis l zole 00:00: Betamethaso 2015-0 Yes Brandon 1 noy Memoria ne-Clotrima 8-11 Davis l zole 00:00: Montelukast 2015-0 Yes Brandon 1 tab(s) Memoria Sodium 3-30 Davis l 00:00: Montelukast 2015-0 Yes [place] 1 tab(s) Memoria Sodium 3-30 Davis l 00:00: Montelukast 2015-0 Yes [place] 1 tab(s) Memoria Sodium 3-30 Davis l 00:00: Montelukast 2015-0 Yes [place] 1 tab(s) Memoria Sodium 3-30 Davis l 00:00: Montelukast 2015-0 Yes [place] 1 tab(s) Memoria Sodium 3-30 Davis l 00:00: benzonatate 2014-0 Yes [place] 1 cap(s) Memoria 3-16 Davis l 00:00: ProAir HFA 2014-0 Yes [place] 2 puff(s) Memoria 3-16 Davis l 00:00: benzonatate 2014-0 Yes [place] 1 cap(s) Memoria 3-16 Davis l 00:00: ProAir HFA 2014-0 Yes [place] 2 puff(s) Memoria 3-16 Davis l 00:00: benzonatate 2014-0 Yes [place] 1 cap(s) Memoria 3-16 Davis l 00:00: [place] 00 ProAir HFA 0 Yes Brandon 2 puff(s) Memoria 3-16 Davis l 00:00: [place] 00 benzonatate 0 Yes Brandon 1 cap(s) Memoria 3-16 Davis l 00:00: [place] 00 ProAir HFA 0 Yes Brandon 2 puff(s) Memoria 3-16 Davis l 00:00: [place] 00 benzonatate Yes Brandon 1 cap(s) Memoria 3-16 Davis l 00:00: [place] 00 ProAir HFA 0 Yes Brandon 2 puff(s) Memoria 3-16 Davis l 00:00: [place] 00 Betamethaso 2013-04 Yes Brandon 1 noy Memoria ne-Clotrima 2-15 Davis l zole 00:00: [place] 00 Betamethaso 2013-04 Yes Brandon 1 noy Memoria ne-Clotrima 2-15 Davis l zole 00:00: [place] 00 Betamethaso 2013-04 Yes Brandon 1 noy Memoria ne-Clotrima 2-15 Davis l zole 00:00: [place] 00 Betamethaso 2013-04 Yes Brandon 1 ony Memoria ne-Clotrima 2-15 Davis l zole 00:00: [place] 00 Betamethaso 2013-04 Yes Brandon 1 noy Memoria ne-Clotrima 2-15 Davis l zole 00:00: [place] 00 tramadol 2013-04 Yes Brandon 2 tab(s) Memoria 2-10 Davis l 03:04: [place] 03 cyclobenzap 2013-04 Yes Brandon 1 tab(s) Memoria rine 2-10 Davis l 03:04: [place] 03 cyclobenzap 2013-04 Yes [place] 1 tab(s) Memoria rine 2-10 Davis l 03:04: [place] 03 tramadol 2013-04 Yes Brandon 2 tab(s) Memoria 2-10 Davis l 03:04: [place] 03 cyclobenzap 2013-04 Yes Brandon 1 tab(s) Memoria rine 2-10 Davis l 03:04: [place] tramadol 2013-04 Yes Brandon 2 tab(s) Memoria 2-10 Davis l 03:04: [place] 03 cyclobenzap 2013-04 Yes Brandon 1 tab(s) Memoria rine 2-10 Davis l 03:04: [place] 03 tramadol 2013-04 Yes Brandon 2 tab(s) Memoria 2-10 Davis l 03:04: [place] 03 cyclobenzap 2013-04 Yes Brandon 1 tab(s) Memoria rine 2-10 Davis l 03:04: [place] 03 tramadol 2013-04 Yes Brandon 2 tab(s) Memoria 2-10 Davis l 03:04: [place] 03 zolpidem 2013-04 Yes Brandon 1 tab(s) Memoria 0-29 Davis l 00:00: [place] 00 zolpidem 2013-04 Yes [place] 1 tab(s) Memoria 0-29 Davis l 00:00: [place] 00 zolpidem 2013-04 Yes Brandon 1 tab(s) Memoria 0-29 Davis l 00:00: [place] 00 zolpidem 2013-04 Yes Brandon 1 tab(s) Memoria 0-29 Davis l 00:00: [place] 00 zolpidem 2013-04 Yes Brandon 1 tab(s) Memoria 0-29 Davis l 00:00: [place] 00 Vitamin D3 2013-0 Yes [place] 1 cap(s) Memoria 9-11 Davis l 00:00: [place] 00 Vitamin D3 2013-0 Yes Brandon 1 cap(s) Memoria 9-11 Davis l 00:00: [place] 00 Vitamin D3 2013-0 Yes [place] 1 cap(s) Memoria 9-11 Davis l 00:00: [place] 00 Vitamin D3 2013-0 Yes Brandon 1 cap(s) Memoria 9-11 Davis l 00:00: [place] 00 Vitamin D3 2013-0 Yes Brandon 1 cap(s) Memoria 9-11 Davis l 00:00: [place] 00 Lyrica 2014-0 Yes Brandon 1 cap(s) Me moria 8-28 Davis l 00:00: [place] 00 Lyrica 2014-0 Yes Brandon 1 cap(s) Me moria 8-28 Davis l 00:00: [place] 00 Lyrica 2014-0 Yes Brandon 1 cap(s) Me moria 8-28 Davis l 00:00: [place] 00 Lyrica 2014-0 Yes Brandon 1 cap(s) Me moria 8-28 Davis l 00:00: [place] 00 Lyrica 2014-0 Yes Brandon 1 cap(s) Me moria 12-04 Davis l 00:00: [place] 00 Immunizations Ordered Filled Immunization Date Status Comments Sourc e Immunization Name Name Influenza ([facility]) 2014-03-23 Completed [facility] 00:00:00 [place] Influenza ([facility]) 2014-03-23 Completed [facility] 00:00:00 [place] Influenza (MCR) Unknown Completed [facility] [place] Influenza (MCR) Unknown Completed [facility] [place] Influenza (MCR) Unknown Completed [facility] [place] Vital Signs Vital Name Observation Time Observation Value Comments Source Systolic (mm Hg) 2018-10-22 11:19:00 Inder rial [place] Diastolic (mm Hg) 2018-10-22 11:19:00 Mem orial [place] Temperature Oral (F) 2018-10-22 11:19:00 98 F [facility] [place] Heart Rate 2018-10-22 11:19:00 53 /min [facility] [place] Respitory Rate 2018-10-22 11:19:00 Memori al [place] Systolic (mm Hg) 2018-10-22 04:28:00 Inder rial [place] Diastolic (mm Hg) 2018-10-22 04:28:00 Mem orial [...] [place] Respitory Rate 2018-10-21 19:04:00 Memori al [place] Systolic (mm Hg) 2018-10-21 11:27:00 Inder rial [place] Diastolic (mm Hg) 2018-10-21 11:27:00 [facility] [place] Temperature Oral (F) 2018-10-21 11:27:00 98.4 F [facility] [place] Heart Rate 2018-10-21 11:27:00 52 /min [facility] [place] Respitory Rate 2018-10-21 11:27:00 [facility] [place] Systolic (mm Hg) 2018-10-21 03:38:00 [facility] [place] Diastolic (mm Hg) 2018-10-21 03:38:00 [facility] [place] Temperature Oral (F) 2018-10-21 03:38:00 98 F [facility] [place] [facility] Rate 2018-10-21 03:38:00 52 /min [facility] [place] Respitory Rate 2018-10-21 03:38:00 [facility] [place] Systolic (mm Hg) 2018-10-20 22:12:00 [facility] [place] Diastolic (mm Hg) 2018-10-20 22:12:00 [facility] [facility] [place] Temperature Oral (F) 2018-10-20 22:12:00 98.6 F [facility] [place] Heart Rate 2018-10-20 22:12:00 74 /min [facility] [place] Respitory Rate 2018-10-20 22:12:00 [facility] [place] Systolic (mm Hg) 2018-10-20 17:59:00 [facility] [place] Diastolic (mm Hg) 2018-10-20 17:59:00 [facility] [place] Temperature Oral (F) 2018-10-20 17:59:00 98.2 F [facility] [place] Heart Rate 2018-10-20 17:59:00 69 /min [facility] [place] Respitory Rate 2018-10-20 17:59:00 [facility] [place] Weight 2018-10-20 16:24:05 [facility] [place] Systolic (mm Hg) 2018-10-20 03:36:00 [facility] [place] Diastolic (mm Hg) 2018-10-20 03:36:00 [facility] [place] Temperature Oral (F) 2018-10-20 03:36:00 98.4 F [facility] Heart Rate 2018-10-20 03:36:00 51 /min [facility] Respitory Rate 2018-10-20 03:36:00 [facility] [place] Systolic (mm Hg) 2018-10-19 18:45:00 [facility] [place] Diastolic (mm Hg) 2018-10-19 18:45:00 [facility] [place] Temperature Oral (F) 2018-10-19 18:45:00 97 F [facility] [place] Heart Rate 2018-10-19 18:45:00 65 /min [facility] [place] Respitory Rate 2018-10-19 18:45:00 [facility] [place] Systolic (mm Hg) 2018-10-19 11:44:00 [facility] [place] Diastolic (mm Hg) 2018-10-19 11:44:00 [facility] [place] Temperature Oral (F) 2018-10-19 11:44:00 97.2 F [facility] Heart Rate 2018-10-19 11:44:00 61 /min [facility] [place] Respitory Rate 2018-10-19 11:44:00 [facility] [place] Systolic (mm Hg) 2018-10-19 09:15:00 [facility] [place] Diastolic (mm Hg) 2018-10-19 09:15:00 [facility] [place] Temperature Oral (F) 2018-10-19 09:15:00 98.6 F [facility] Heart Rate 2018-10-19 09:15:00 56 /min [facility] [place] Respitory Rate 2018-10-19 09:15:00 [facility] [place] Systolic (mm Hg) 2018-10-18 19:57:00 [facility] [place] Diastolic (mm Hg) 2018-10-18 19:57:00 [facility] [place] Temperature Oral (F) 2018-10-18 19:57:00 99.1 F [facility] Heart Rate 2018-10-18 19:57:00 60 /min [facility] Respitory Rate 2018-10-18 19:57:00 [facility] [place] Systolic (mm Hg) 2018-10-18 05:51:00 [facility] [place] Diastolic (mm Hg) 2018-10-18 05:51:00 [facility] [place] Temperature Oral (F) 2018-10-18 05:51:00 98.7 F [facility] [place] Heart Rate 2018-10-18 05:51:00 57 /min [facility] [place] Respitory Rate 2018-10-18 05:51:00 [facility] [place] Systolic (mm Hg) 2018-10-17 20:12:00 [facility] [place] Diastolic (mm Hg) 2018-10-17 20:12:00 [facility] [place] Temperature Oral (F) 2018-10-17 20:12:00 97 F [facility] Heart Rate 2018-10-17 20:12:00 56 /min [facility] Respitory Rate 2018-10-17 20:12:00 [facility] [place] Systolic (mm Hg) 2018-10-17 04:21:00 [facility] [place] Diastolic (mm Hg) 2018-10-17 04:21:00 [facility] [place] Temperature Oral (F) 2018-10-17 04:21:00 97.8 F [facility] Heart Rate 2018-10-17 04:21:00 59 /min [facility] Respitory Rate 2018-10-17 04:21:00 [facility] [place] Systolic (mm Hg) 2018-10-16 18:56:00 [facility] [place] Diastolic (mm Hg) 2018-10-16 18:56:00 [facility] [place] Temperature Oral (F) 2018-10-16 18:56:00 97 F [facility] [place] Heart Rate 2018-10-16 18:56:00 70 /min [facility] Respitory Rate 2018-10-16 18:56:00 [facility] [place] Systolic (mm Hg) 2018-10-16 05:26:00 [facility] [place] Diastolic (mm Hg) 2018-10-16 05:26:00 [facility] [place] Temperature Oral (F) 2018-10-16 05:26:00 98.6 F [facility] [place] Heart Rate 2018-10-16 05:26:00 58 /min [facility] Respitory Rate 2018-10-16 05:26:00 [facility] [place] Weight 2018-10-15 17:47:00 [facility] Height 2018-10-15 16:15:00 [facility] [place] Systolic (mm Hg) 2018-10-15 16:03:00 [facility] [place] Diastolic (mm Hg) 2018-10-15 16:03:00 [facility] [place] Temperature Oral (F) 2018-10-15 16:03:00 98.4 F [facility] [place] Heart Rate 2018-10-15 16:03:00 48 /min [facility] [place] Respitory Rate 2018-10-15 16:03:00 [facility] [place] Systolic (mm Hg) 2018-10-15 06:16:00 [facility] [place] Diastolic (mm Hg) 2018-10-15 06:16:00 [facility] [place] Temperature Oral (F) 2018-10-15 06:16:00 98.6 F [facility] [place] Heart Rate 2018-10-15 06:16:00 58 /min [facility] Respitory Rate 2018-10-15 06:16:00 [facility] [place] Systolic (mm Hg) 2018-10-14 18:41:00 [facility] [place] Diastolic (mm Hg) 2018-10-14 18:41:00 [facility] [place] Temperature Oral (F) 2018-10-14 18:41:00 97 F [facility] [place] Heart Rate 2018-10-14 18:41:00 59 /min [facility] [place] Respitory Rate 2018-10-14 18:41:00 [facility] [place] Systolic (mm Hg) 2018-10-14 11:44:00 [facility] [place] Diastolic (mm Hg) 2018-10-14 11:44:00 [facility] [place] Temperature Oral (F) 2018-10-14 11:44:00 97.7 F [facility] [place] Heart Rate 2018-10-14 11:44:00 44 /min [facility] Respitory Rate 2018-10-14 11:44:00 [facility] [place] Systolic (mm Hg) 2018-10-14 05:50:00 [facility] [place] Diastolic (mm Hg) 2018-10-14 05:50:00 [facility] [place] Temperature Oral (F) 2018-10-14 05:50:00 98.2 F [facility] Heart Rate 2018-10-14 05:50:00 45 /min [facility] [place] Respitory Rate 2018-10-14 05:50:00 [facility] [place] Systolic (mm Hg) 2018-10-14 05:46:00 [facility] [place] Diastolic (mm Hg) 2018-10-14 05:46:00 [facility] [place] Temperature Oral (F) 2018-10-14 05:46:00 98 F [facility] Heart Rate 2018-10-14 05:46:00 72 /min [facility] Respitory Rate 2018-10-14 05:46:00 [facility] [place] Systolic (mm Hg) 2018-10-13 20:41:00 [facility] [place] Diastolic (mm Hg) 2018-10-13 20:41:00 [facility] [place] Temperature Oral (F) 2018-10-13 20:41:00 97.8 F [facility] Rate 2018-10-13 20:41:00 75 /min [facility] Respitory Rate 2018-10-13 20:41:00 [facility] [place] Systolic (mm Hg) 2018-10-13 05:10:00 [facility] [place] Diastolic (mm Hg) 2018-10-13 05:10:00 [facility] [place] Temperature Oral (F) 2018-10-13 05:10:00 98.2 F [facility] Heart Rate 2018-10-13 05:10:00 52 /min [facility] [place] Respitory Rate 2018-10-13 05:10:00 [facility] [place] Systolic (mm Hg) 2018-10-12 20:13:00 [facility] [place] Diastolic (mm Hg) 2018-10-12 20:13:00 [facility] [place] Temperature Oral (F) 2018-10-12 20:13:00 98.9 F [facility] Heart Rate 2018-10-12 20:13:00 65 /min [facility] [place] Respitory Rate 2018-10-12 20:13:00 [facility] [place] Systolic (mm Hg) 2018-10-12 04:07:00 [facility] [place] Diastolic (mm Hg) 2018-10-12 04:07:00 [facility] [place] Temperature Oral (F) 2018-10-12 04:07:00 98.9 F [facility] Heart Rate 2018-10-12 04:07:00 60 /min [facility] [place] Respitory Rate 2018-10-12 04:07:00 [facility] [place] Systolic (mm Hg) 2018-10-11 19:38:00 [facility] [place] Diastolic (mm Hg) 2018-10-11 19:38:00 [facility] [place] Temperature Oral (F) 2018-10-11 19:38:00 97 F [facility] [place] Heart Rate 2018-10-11 19:38:00 54 /min [facility] Respitory Rate 2018-10-11 19:38:00 [facility] [place] Systolic (mm Hg) 2018-10-11 11:23:00 [facility] [place] Diastolic (mm Hg) 2018-10-11 11:23:00 [facility] [place] Temperature Oral (F) 2018-10-11 11:23:00 98.2 F [facility] [place] Heart Rate 2018-10-11 11:23:00 50 /min [facility] [place] Respitory Rate 2018-10-11 11:23:00 [facility] [place] Systolic (mm Hg) 2018-10-11 04:56:00 [facility] [place] Diastolic (mm Hg) 2018-10-11 04:56:00 [facility] [place] Temperature Oral (F) 2018-10-11 04:56:00 98.7 F [facility] [place] Heart Rate 2018-10-11 04:56:00 62 /min [facility] [place] Respitory Rate 2018-10-11 04:56:00 [facility] [place] Systolic (mm Hg) 2018-10-10 18:27:00 [facility] [place] Diastolic (mm Hg) 2018-10-10 18:27:00 [facility] [place] Temperature Oral (F) 2018-10-10 18:27:00 97 F [facility] Heart Rate 2018-10-10 18:27:00 53 /min [facility] [place] Respitory Rate 2018-10-10 18:27:00 [facility] [place] Systolic (mm Hg) 2018-10-10 15:17:00 [facility] [place] Diastolic (mm Hg) 2018-10-10 15:17:00 [facility] [place] Temperature Oral (F) 2018-10-10 15:17:00 98.2 F [facility] Heart Rate 2018-10-10 15:17:00 50 /min [facility] Respitory Rate 2018-10-10 15:17:00 [facility] [place] Systolic (mm Hg) 2018-10-10 04:27:00 [facility] [place] Diastolic (mm Hg) 2018-10-10 04:27:00 [facility] [place] Temperature Oral (F) 2018-10-10 04:27:00 98.6 F [facility] [place] Heart Rate 2018-10-10 04:27:00 64 /min [facility] Respitory Rate 2018-10-10 04:27:00 [facility] [place] Systolic (mm Hg) 2018-10-09 19:57:00 [facility] [place] Diastolic (mm Hg) 2018-10-09 19:57:00 [facility] [place] Temperature Oral (F) 2018-10-09 19:57:00 98.6 F [facility] Heart Rate 2018-10-09 19:57:00 58 /min [facility] Respitory Rate 2018-10-09 19:57:00 [facility] [place] Systolic (mm Hg) 2018-10-09 03:42:00 [facility] [place] Diastolic (mm Hg) 2018-10-09 03:42:00 [facility] [place] Temperature Oral (F) 2018-10-09 03:42:00 98.7 F [facility] Heart Rate 2018-10-09 03:42:00 60 /min [facility] [place] Respitory Rate 2018-10-09 03:42:00 [facility] [place] Systolic (mm Hg) 2018-10-08 18:57:00 [facility] [place] Diastolic (mm Hg) 2018-10-08 18:57:00 [facility] [place] Temperature Oral (F) 2018-10-08 18:57:00 97 F [facility] [place] Heart Rate 2018-10-08 18:57:00 69 /min [facility] Respitory Rate 2018-10-08 18:57:00 [facility] [place] Systolic (mm Hg) 2018-10-08 13:47:00 [facility] [place] Diastolic (mm Hg) 2018-10-08 13:47:00 [facility] [place] Temperature Oral (F) 2018-10-08 13:47:00 98.4 F [facility] Heart Rate 2018-10-08 13:47:00 50 /min [facility] [place] Respitory Rate 2018-10-08 13:47:00 [facility] [place] Systolic (mm Hg) 2018-10-08 11:28:36 [facility] [place] Diastolic (mm Hg) 2018-10-08 11:28:36 [facility] [place] Heart Rate 2018-10-08 11:28:36 50 /min [facility] Systolic (mm Hg) 2018-10-08 05:22:00 [facility] [place] Diastolic (mm Hg) 2018-10-08 05:22:00 [facility] [place] Temperature Oral (F) 2018-10-08 05:22:00 98.2 F [facility] [place] Heart Rate 2018-10-08 05:22:00 62 /min [facility] [place] Respitory Rate 2018-10-08 05:22:00 [facility] [place] Systolic (mm Hg) 2018-10-07 19:00:00 [facility] [place] Diastolic (mm Hg) 2018-10-07 19:00:00 [facility] [place] Temperature Oral (F) 2018-10-07 19:00:00 97 F [facility] [place] Heart Rate 2018-10-07 19:00:00 64 /min [facility] [place] Respitory Rate 2018-10-07 19:00:00 [facility] [place] Systolic (mm Hg) 2018-10-07 16:55:00 [facility] [place] Diastolic (mm Hg) 2018-10-07 16:55:00 [facility] [place] Temperature Oral (F) 2018-10-07 16:55:00 98.2 F [facility] Heart Rate 2018-10-07 16:55:00 49 /min [facility] [place] Respitory Rate 2018-10-07 16:55:00 [facility] [place] Systolic (mm Hg) 2018-10-07 12:16:59 [facility] [place] Diastolic (mm Hg) 2018-10-07 12:16:59 [facility] [place] Heart Rate 2018-10-07 12:16:59 49 /min [facility] Systolic (mm Hg) 2018-10-07 03:55:00 [facility] [place] Diastolic (mm Hg) 2018-10-07 03:55:00 [facility] [place] Temperature Oral (F) 2018-10-07 03:55:00 98.2 F [facility] Heart Rate 2018-10-07 03:55:00 60 /min [facility] Respitory Rate 2018-10-07 03:55:00 [facility] [place] Systolic (mm Hg) 2018-10-06 12:16:00 [facility] [place] Diastolic (mm Hg) 2018-10-06 12:16:00 [facility] [place] Temperature Oral (F) 2018-10-06 12:16:00 98.6 F [facility] Heart Rate 2018-10-06 12:16:00 50 /min [facility] Respitory Rate 2018-10-06 12:16:00 [facility] [place] Systolic (mm Hg) 2018-10-06 12:05:38 [facility] [place] Diastolic (mm Hg) 2018-10-06 12:05:38 [facility] [place] Heart Rate 2018-10-06 12:05:38 50 /min [facility] Systolic (mm Hg) 2018-10-06 04:06:00 [facility] [place] Diastolic (mm Hg) 2018-10-06 04:06:00 [facility] [place] Temperature Oral (F) 2018-10-06 04:06:00 98.4 F [facility] Heart Rate 2018-10-06 04:06:00 62 /min [facility] Respitory Rate 2018-10-06 04:06:00 [facility] [place] Systolic (mm Hg) 2018-10-05 05:22:00 [facility] [place] Diastolic (mm Hg) 2018-10-05 05:22:00 [facility] [place] Temperature Oral (F) 2018-10-05 05:22:00 98.6 F [facility] Heart Rate 2018-10-05 05:22:00 58 /min [facility] [place] Respitory Rate 2018-10-05 05:22:00 [facility] [place] Systolic (mm Hg) 2018-10-04 20:45:00 [facility] [place] Diastolic (mm Hg) 2018-10-04 20:45:00 [facility] [place] Temperature Oral (F) 2018-10-04 20:45:00 98.6 F [facility] Heart Rate 2018-10-04 20:45:00 53 /min [facility] [place] Respitory Rate 2018-10-04 20:45:00 [facility] [place] Systolic (mm Hg) 2018-10-04 13:31:47 [facility] [place] Diastolic (mm Hg) 2018-10-04 13:31:47 [facility] [place] Heart Rate 2018-10-04 13:31:47 44 /min [facility] Systolic (mm Hg) 2018-10-04 05:03:00 [facility] [place] Diastolic (mm Hg) 2018-10-04 05:03:00 [facility] [place] Temperature Oral (F) 2018-10-04 05:03:00 98.7 F [facility] Heart Rate 2018-10-04 05:03:00 58 /min [facility] Respitory Rate 2018-10-04 05:03:00 [facility] [place] Diastolic (mm Hg) 2018-10-03 19:43:00 [facility] [place] Temperature Oral (F) 2018-10-03 19:43:00 97 F [facility] Heart Rate 2018-10-03 19:43:00 62 /min [facility] Respitory Rate 2018-10-03 19:43:00 [facility] [place] Systolic (mm Hg) 2018-10-03 19:43:00 [facility] [place] Systolic (mm Hg) 2018-10-03 12:54:02 [facility] [place] Diastolic (mm Hg) 2018-10-03 12:54:02 [facility] [place] Heart Rate 2018-10-03 12:54:02 58 /min [facility] [place] Systolic (mm Hg) 2018-10-03 05:20:00 [facility] [place] Diastolic (mm Hg) 2018-10-03 05:20:00 [facility] [place] Temperature Oral (F) 2018-10-03 05:20:00 98.6 F [facility] [place] Heart Rate 2018-10-03 05:20:00 50 /min [facility] Respitory Rate 2018-10-03 05:20:00 [facility] [place] Systolic (mm Hg) 2018-10-02 20:13:00 [facility] [place] Diastolic (mm Hg) 2018-10-02 20:13:00 [facility] [place] Temperature Oral (F) 2018-10-02 20:13:00 98.9 F [facility] [place] Heart Rate 2018-10-02 20:13:00 52 /min [facility] Respitory Rate 2018-10-02 20:13:00 [facility] [place] Systolic (mm Hg) 2018-10-02 15:42:00 [facility] [place] Diastolic (mm Hg) 2018-10-02 15:42:00 [facility] [place] Temperature Oral (F) 2018-10-02 15:42:00 98.6 F [facility] Rate 2018-10-02 15:42:00 53 /min [facility] [place] Respitory Rate 2018-10-02 15:42:00 [facility] [place] Systolic (mm Hg) 2018-10-02 13:39:16 [facility] [place] Diastolic (mm Hg) 2018-10-02 13:39:16 [facility] [place] Heart Rate 2018-10-02 13:39:16 53 /min [facility] Systolic (mm Hg) 2018-10-02 07:17:00 [facility] [place] Diastolic (mm Hg) 2018-10-02 07:17:00 [facility] [place] Temperature Oral (F) 2018-10-02 07:17:00 98.2 F [facility] [place] Heart Rate 2018-10-02 07:17:00 58 /min [facility] [place] Respitory Rate 2018-10-02 07:17:00 [facility] [place] Systolic (mm Hg) 2018-10-02 00:57:00 [facility] [place] Diastolic (mm Hg) 2018-10-02 00:57:00 [facility] [place] Temperature Oral (F) 2018-10-02 00:57:00 98.7 F [facility] Respitory Rate 2018-10-02 00:57:00 [facility] [place] Heart Rate 2018-10-02 00:57:00 57 /min [facility] Weight 2018-10-01 23:47:00 [facility] Systolic (mm Hg) 2017-07-26 10:42:00 [facility] [place] Diastolic (mm Hg) 2017-07-26 10:42:00 [facility] [place] Temperature Oral (F) 2017-07-26 10:42:00 97.8 F [facility] Heart Rate 2017-07-26 10:42:00 69 /min [facility] Respitory Rate 2017-07-26 10:42:00 [facility] [place] Systolic (mm Hg) 2017-07-26 05:12:00 [facility] [place] Diastolic (mm Hg) 2017-07-26 05:12:00 [facility] [place] Temperature Oral (F) 2017-07-26 05:12:00 97.8 F [facility] [place] Heart Rate 2017-07-26 05:12:00 68 /min [facility] Respitory Rate 2017-07-26 05:12:00 [facility] [place] Systolic (mm Hg) 2017-07-25 10:55:00 [facility] [place] Diastolic (mm Hg) 2017-07-25 10:55:00 [facility] [place] Temperature Oral (F) 2017-07-25 10:55:00 98.4 F [facility] Heart Rate 2017-07-25 10:55:00 86 /min [facility] Respitory Rate 2017-07-25 10:55:00 [facility] [place] Systolic (mm Hg) 2017-07-25 04:51:00 [facility] [place] Diastolic (mm Hg) 2017-07-25 04:51:00 [facility] [place] Temperature Oral (F) 2017-07-25 04:51:00 97.8 F [facility] [place] Heart Rate 2017-07-25 04:51:00 67 /min [facility] Respitory Rate 2017-07-25 04:51:00 [facility] [place] Systolic (mm Hg) 2017-07-24 21:09:00 [facility] [place] Diastolic (mm Hg) 2017-07-24 21:09:00 [facility] [place] Temperature Oral (F) 2017-07-24 21:09:00 99.1 F [facility] Rate 2017-07-24 21:09:00 81 /min [facility] Respitory Rate 2017-07-24 21:09:00 [facility] [place] Systolic (mm Hg) 2017-07-24 15:25:00 [facility] [place] Diastolic (mm Hg) 2017-07-24 15:25:00 [facility] [place] Temperature Oral (F) 2017-07-24 15:25:00 98.6 F [facility] Heart Rate 2017-07-24 15:25:00 95 /min [facility] [place] Respitory Rate 2017-07-24 15:25:00 [facility] [place] Systolic (mm Hg) 2017-07-24 09:38:00 [facility] [place] Diastolic (mm Hg) 2017-07-24 09:38:00 [facility] [place] Temperature Oral (F) 2017-07-24 09:38:00 98 F [facility] Heart Rate 2017-07-24 09:38:00 82 /min [facility] [place] Respitory Rate 2017-07-24 09:38:00 [facility] [place] Systolic (mm Hg) 2017-07-24 01:29:00 [facility] [place] Diastolic (mm Hg) 2017-07-24 01:29:00 [facility] [place] Temperature Oral (F) 2017-07-24 01:29:00 98 F [facility] [place] Heart Rate 2017-07-24 01:29:00 75 /min [facility] Respitory Rate 2017-07-24 01:29:00 [facility] [place] Systolic (mm Hg) 2017-07-23 10:35:00 [facility] [place] Diastolic (mm Hg) 2017-07-23 10:35:00 [facility] [place] Temperature Oral (F) 2017-07-23 10:35:00 99.8 F [facility] Rate 2017-07-23 10:35:00 83 /min [facility] [place] Respitory Rate 2017-07-23 10:35:00 [facility] [place] Systolic (mm Hg) 2017-07-22 18:11:00 [facility] [place] Diastolic (mm Hg) 2017-07-22 18:11:00 [facility] [place] Temperature Oral (F) 2017-07-22 18:11:00 98.2 F [facility] Heart Rate 2017-07-22 18:11:00 70 /min [facility] [place] Respitory Rate 2017-07-22 18:11:00 [facility] [place] Systolic (mm Hg) 2017-07-22 10:50:00 [facility] [place] Diastolic (mm Hg) 2017-07-22 10:50:00 [facility] [place] Temperature Oral (F) 2017-07-22 10:50:00 98 F [facility] Heart Rate 2017-07-22 10:50:00 62 /min [facility] [place] Respitory Rate 2017-07-22 10:50:00 [facility] [place] Systolic (mm Hg) 2017-07-21 18:56:00 [facility] [place] Diastolic (mm Hg) 2017-07-21 18:56:00 [facility] [place] Temperature Oral (F) 2017-07-21 18:56:00 97.7 F [facility] Heart Rate 2017-07-21 18:56:00 67 /min [facility] Respitory Rate 2017-07-21 18:56:00 [facility] [place] Systolic (mm Hg) 2017-07-21 10:51:00 [facility] [place] Diastolic (mm Hg) 2017-07-21 10:51:00 [facility] [place] Temperature Oral (F) 2017-07-21 10:51:00 97.7 F [facility] Heart Rate 2017-07-21 10:51:00 74 /min [facility] Respitory Rate 2017-07-21 10:51:00 [facility] [place] Systolic (mm Hg) 2017-07-20 20:03:00 [facility] [place] Diastolic (mm Hg) 2017-07-20 20:03:00 [facility] [place] Temperature Oral (F) 2017-07-20 20:03:00 98.6 F [facility] Heart Rate 2017-07-20 20:03:00 83 /min [facility] [place] Respitory Rate 2017-07-20 20:03:00 [facility] [place] Systolic (mm Hg) 2017-07-20 17:57:00 [facility] [place] Diastolic (mm Hg) 2017-07-20 17:57:00 [facility] [place] Temperature Oral (F) 2017-07-20 17:57:00 97.8 F [facility] [place] Heart Rate 2017-07-20 17:57:00 82 /min [facility] [place] Respitory Rate 2017-07-20 17:57:00 [facility] [place] Systolic (mm Hg) 2017-07-20 05:53:00 [facility] [place] Diastolic (mm Hg) 2017-07-20 05:53:00 [facility] [place] Temperature Oral (F) 2017-07-20 05:53:00 97.3 F [facility] [place] Heart Rate 2017-07-20 05:53:00 63 /min [facility] Respitory Rate 2017-07-20 05:53:00 [facility] [place] Systolic (mm Hg) 2017-07-19 19:09:00 [facility] [place] Diastolic (mm Hg) 2017-07-19 19:09:00 [facility] [place] Temperature Oral (F) 2017-07-19 19:09:00 98.4 F [facility] [place] Heart Rate 2017-07-19 19:09:00 88 /min [facility] [place] Respitory Rate 2017-07-19 19:09:00 [facility] [place] Systolic (mm Hg) 2017-07-19 12:57:00 [facility] [place] Diastolic (mm Hg) 2017-07-19 12:57:00 [facility] [place] Temperature Oral (F) 2017-07-19 12:57:00 98.7 F [facility] [place] Heart Rate 2017-07-19 12:57:00 87 /min [facility] Respitory Rate 2017-07-19 12:57:00 [facility] [place] Systolic (mm Hg) 2017-07-19 05:19:00 [facility] [place] Diastolic (mm Hg) 2017-07-19 05:19:00 [facility] [place] Temperature Oral (F) 2017-07-19 05:19:00 98.1 F [facility] [place] Heart Rate 2017-07-19 05:19:00 73 /min [facility] [place] Respitory Rate 2017-07-19 05:19:00 [facility] [place] Systolic (mm Hg) 2017-07-18 19:56:00 [facility] [place] Diastolic (mm Hg) 2017-07-18 19:56:00 [facility] [place] Temperature Oral (F) 2017-07-18 19:56:00 99.6 F [facility] Heart Rate 2017-07-18 19:56:00 78 /min [facility] Respitory Rate 2017-07-18 19:56:00 [facility] [place] Systolic (mm Hg) 2017-07-18 17:23:00 [facility] [place] Diastolic (mm Hg) 2017-07-18 17:23:00 [facility] [place] Temperature Oral (F) 2017-07-18 17:23:00 98.2 F [facility] [place] Heart Rate 2017-07-18 17:23:00 88 /min [facility] Respitory Rate 2017-07-18 17:23:00 [facility] [place] Systolic (mm Hg) 2017-07-18 06:56:00 [facility] [place] Diastolic (mm Hg) 2017-07-18 06:56:00 [facility] [place] Temperature Oral (F) 2017-07-18 06:56:00 98.7 F [facility] [place] Heart Rate 2017-07-18 06:56:00 77 /min [facility] [place] Respitory Rate 2017-07-18 06:56:00 [facility] [place] Systolic (mm Hg) 2017-07-17 19:07:00 [facility] [place] Diastolic (mm Hg) 2017-07-17 19:07:00 [facility] [place] Temperature Oral (F) 2017-07-17 19:07:00 98.4 F [facility] Rate 2017-07-17 19:07:00 74 /min [facility] Respitory Rate 2017-07-17 19:07:00 [facility] [place] Systolic (mm Hg) 2017-07-17 05:03:00 [facility] [place] Diastolic (mm Hg) 2017-07-17 05:03:00 [facility] [place] Temperature Oral (F) 2017-07-17 05:03:00 98.2 F [facility] [place] Heart Rate 2017-07-17 05:03:00 66 /min [facility] Respitory Rate 2017-07-17 05:03:00 [facility] [place] Systolic (mm Hg) 2017-07-16 19:13:00 [facility] [place] Diastolic (mm Hg) 2017-07-16 19:13:00 [facility] [place] Temperature Oral (F) 2017-07-16 19:13:00 98.2 F [facility] [place] Heart Rate 2017-07-16 19:13:00 78 /min [facility] [...] Diastolic (mm Hg) 2017-07-16 03:51:00 [facility] [place] Temperature Oral (F) 2017-07-16 03:51:00 98 F [facility] Rate 2017-07-16 03:51:00 68 /min [facility] [place] Respitory Rate 2017-07-16 03:51:00 [facility] [place] Systolic (mm Hg) 2017-07-15 20:14:00 [facility] [place] Diastolic (mm Hg) 2017-07-15 20:14:00 [facility] [place] Temperature Oral (F) 2017-07-15 20:14:00 98.2 F [facility] Rate 2017-07-15 20:14:00 85 /min [facility] Respitory Rate 2017-07-15 20:14:00 [facility] [place] Systolic (mm Hg) 2017-07-15 10:42:00 [facility] [place] Diastolic (mm Hg) 2017-07-15 10:42:00 [facility] [place] Temperature Oral (F) 2017-07-15 10:42:00 98.4 F [facility] Heart Rate 2017-07-15 10:42:00 72 /min [facility] Respitory Rate 2017-07-15 10:42:00 [facility] [place] Systolic (mm Hg) 2017-07-15 04:08:00 [facility] [place] Diastolic (mm Hg) 2017-07-15 04:08:00 [facility] [place] Temperature Oral (F) 2017-07-15 04:08:00 98.6 F [facility] [place] Heart Rate 2017-07-15 04:08:00 75 /min [facility] Respitory Rate 2017-07-15 04:08:00 [facility] [place] Systolic (mm Hg) 2017-07-14 19:32:00 [facility] [place] Diastolic (mm Hg) 2017-07-14 19:32:00 [facility] [place] Temperature Oral (F) 2017-07-14 19:32:00 98.6 F [facility] [place] Heart Rate 2017-07-14 19:32:00 75 /min [facility] Respitory Rate 2017-07-14 19:32:00 [facility] [place] Systolic (mm Hg) 2017-07-14 12:46:00 [facility] [place] Diastolic (mm Hg) 2017-07-14 12:46:00 [facility] [place] Temperature Oral (F) 2017-07-14 12:46:00 97.8 F [facility] Heart Rate 2017-07-14 12:46:00 64 /min [facility] [place] Respitory Rate 2017-07-14 12:46:00 [facility] [place] Systolic (mm Hg) 2017-07-14 04:14:00 [facility] [place] Diastolic (mm Hg) 2017-07-14 04:14:00 [facility] [place] Temperature Oral (F) 2017-07-14 04:14:00 98.4 F [facility] [place] Heart Rate 2017-07-14 04:14:00 81 /min [facility] Respitory Rate 2017-07-14 04:14:00 [facility] [place] Systolic (mm Hg) 2017-07-13 20:54:00 [facility] [place] Diastolic (mm Hg) 2017-07-13 20:54:00 [facility] [place] Temperature Oral (F) 2017-07-13 20:54:00 98.7 F [facility] Heart Rate 2017-07-13 20:54:00 73 /min [facility] Respitory Rate 2017-07-13 20:54:00 [facility] [place] Systolic (mm Hg) 2017-07-13 14:09:00 [facility] [place] Diastolic (mm Hg) 2017-07-13 14:09:00 [facility] Temperature Oral (F) 2017-07-13 14:09:00 98.2 F [facility] [place] Heart Rate 2017-07-13 14:09:00 71 /min [facility] Respitory Rate 2017-07-13 14:09:00 [facility] Systolic (mm Hg) 2017-07-13 04:08:00 [facility] [place] Diastolic (mm Hg) 2017-07-13 04:08:00 [facility] Temperature Oral (F) 2017-07-13 04:08:00 97.9 F [facility] Heart Rate 2017-07-13 04:08:00 79 /min [facility] Respitory Rate 2017-07-13 04:08:00 [facility] [place] Systolic (mm Hg) 2017-07-12 19:29:00 [facility] Diastolic (mm Hg) 2017-07-12 19:29:00 [facility] Temperature Oral (F) 2017-07-12 19:29:00 98.9 F [facility] Heart Rate 2017-07-12 19:29:00 81 /min [facility] Respitory Rate 2017-07-12 19:29:00 [facility] [place] Systolic (mm Hg) 2017-07-12 14:02:00 [facility] Diastolic (mm Hg) 2017-07-12 14:02:00 [facility] Temperature Oral (F) 2017-07-12 14:02:00 98 F [facility] Heart Rate 2017-07-12 14:02:00 60 /min [facility] Respitory Rate 2017-07-12 14:02:00 [facility] Systolic (mm Hg) 2017-07-12 03:57:00 [facility] [place] Diastolic (mm Hg) 2017-07-12 03:57:00 [facility] Temperature Oral (F) 2017-07-12 03:57:00 98.2 F [facility] [place] Heart Rate 2017-07-12 03:57:00 79 /min [facility] [place] Respitory Rate 2017-07-12 03:57:00 [facility] [place] Systolic (mm Hg) 2017-07-11 19:48:00 [facility] [place] Diastolic (mm Hg) 2017-07-11 19:48:00 [facility] [place] Temperature Oral (F) 2017-07-11 19:48:00 98.9 F [facility] Heart Rate 2017-07-11 19:48:00 72 /min [facility] [place] Respitory Rate 2017-07-11 19:48:00 [facility] Systolic (mm Hg) 2017-07-11 15:18:00 [facility] [place] Diastolic (mm Hg) 2017-07-11 15:18:00 [facility] [place] Temperature Oral (F) 2017-07-11 15:18:00 97.8 F [facility] Heart Rate 2017-07-11 15:18:00 76 /min [facility] [place] Respitory Rate 2017-07-11 15:18:00 [facility] [place] Systolic (mm Hg) 2017-07-10 23:55:00 [facility] [place] Diastolic (mm Hg) 2017-07-10 23:55:00 [facility] Temperature Oral (F) 2017-07-10 23:55:00 98.4 F [facility] Heart Rate 2017-07-10 23:55:00 83 /min [facility] [place] Respitory Rate 2017-07-10 23:55:00 [facility] [place] Systolic (mm Hg) 2017-07-10 14:36:00 [facility] [place] Diastolic (mm Hg) 2017-07-10 14:36:00 [facility] [place] Temperature Oral (F) 2017-07-10 14:36:00 98.4 F [facility] [place] Heart Rate 2017-07-10 14:36:00 63 /min [facility] [place] Respitory Rate 2017-07-10 14:36:00 [facility] Systolic (mm Hg) 2017-07-10 05:24:00 [facility] Diastolic (mm Hg) 2017-07-10 05:24:00 [facility] Temperature Oral (F) 2017-07-10 05:24:00 97.8 F [facility] Heart Rate 2017-07-10 05:24:00 74 /min [facility] [place] Respitory Rate 2017-07-10 05:24:00 [facility] [place] Systolic (mm Hg) 2017-07-09 19:44:00 [facility] [place] Diastolic (mm Hg) 2017-07-09 19:44:00 [facility] Temperature Oral (F) 2017-07-09 19:44:00 100.2 F [facility] [place] Heart Rate 2017-07-09 19:44:00 87 /min [facility] Respitory Rate 2017-07-09 19:44:00 [facility] Systolic (mm Hg) 2017-07-09 12:32:00 [facility] [place] Diastolic (mm Hg) 2017-07-09 12:32:00 [facility] Temperature Oral (F) 2017-07-09 12:32:00 98.4 F [facility] [place] Heart Rate 2017-07-09 12:32:00 73 /min [facility] Respitory Rate 2017-07-09 12:32:00 [facility] [place] Systolic (mm Hg) 2017-07-09 05:54:00 [facility] [place] Diastolic (mm Hg) 2017-07-09 05:54:00 [facility] [place] Temperature Oral (F) 2017-07-09 05:54:00 98.7 F [facility] Heart Rate 2017-07-09 05:54:00 66 /min [facility] [place] Respitory Rate 2017-07-09 05:54:00 [facility] [place] Systolic (mm Hg) 2017-07-08 19:00:00 [facility] [place] Diastolic (mm Hg) 2017-07-08 19:00:00 [facility] Temperature Oral (F) 2017-07-08 19:00:00 99.1 F [facility] [place] Heart Rate 2017-07-08 19:00:00 85 /min [facility] Respitory Rate 2017-07-08 19:00:00 [facility] [place] Systolic (mm Hg) 2017-07-08 16:07:00 [facility] [place] Diastolic (mm Hg) 2017-07-08 16:07:00 [facility] Temperature Oral (F) 2017-07-08 16:07:00 99.1 F [facility] Heart Rate 2017-07-08 16:07:00 68 /min [facility] Respitory Rate 2017-07-08 16:07:00 [facility] Weight 2017-07-08 13:58:00 [facility] Systolic (mm Hg) 2017-07-08 06:04:00 [facility] [place] Diastolic (mm Hg) 2017-07-08 06:04:00 [facility] [place] Temperature Oral (F) 2017-07-08 06:04:00 97.3 F [facility] Heart Rate 2017-07-08 06:04:00 77 /min [facility] Respitory Rate 2017-07-08 06:04:00 [facility] [place] Systolic (mm Hg) 2017-07-07 19:42:00 [facility] [place] Diastolic (mm Hg) 2017-07-07 19:42:00 [facility] [place] Temperature Oral (F) 2017-07-07 19:42:00 99.1 F [facility] Heart Rate 2017-07-07 19:42:00 85 /min [facility] [place] Respitory Rate 2017-07-07 19:42:00 [facility] [place] Systolic (mm Hg) 2017-07-07 10:39:00 [facility] [place] Diastolic (mm Hg) 2017-07-07 10:39:00 [facility] [place] Temperature Oral (F) 2017-07-07 10:39:00 98.4 F [facility] [place] Heart Rate 2017-07-07 10:39:00 59 /min [facility] [place] Respitory Rate 2017-07-07 10:39:00 [facility] [place] Systolic (mm Hg) 2017-07-07 01:02:00 [facility] [place] Diastolic (mm Hg) 2017-07-07 01:02:00 [facility] [place] Temperature Oral (F) 2017-07-07 01:02:00 100.7 F [facility] Heart Rate 2017-07-07 01:02:00 86 /min [facility] [place] Respitory Rate 2017-07-07 01:02:00 [facility] Systolic (mm Hg) 2017-07-06 13:21:00 [facility] [place] Diastolic (mm Hg) 2017-07-06 13:21:00 [facility] [place] Temperature Oral (F) 2017-07-06 13:21:00 98.7 F [facility] Heart Rate 2017-07-06 13:21:00 73 /min [facility] [place] Respitory Rate 2017-07-06 13:21:00 [facility] Systolic (mm Hg) 2017-07-06 05:07:00 [facility] [place] Diastolic (mm Hg) 2017-07-06 05:07:00 [facility] [place] Temperature Oral (F) 2017-07-06 05:07:00 98.6 F [facility] Heart Rate 2017-07-06 05:07:00 79 /min [facility] [place] Respitory Rate 2017-07-06 05:07:00 [facility] [place] Systolic (mm Hg) 2017-07-05 18:49:00 [facility] [place] Diastolic (mm Hg) 2017-07-05 18:49:00 [facility] Temperature Oral (F) 2017-07-05 18:49:00 98.4 F [facility] Heart Rate 2017-07-05 18:49:00 78 /min [facility] Respitory Rate 2017-07-05 18:49:00 [facility] [place] Systolic (mm Hg) 2017-07-05 16:26:00 [facility] [place] Diastolic (mm Hg) 2017-07-05 16:26:00 [facility] [place] Temperature Oral (F) 2017-07-05 16:26:00 98.6 F [facility] [place] Heart Rate 2017-07-05 16:26:00 69 /min [facility] Respitory Rate 2017-07-05 16:26:00 [facility] [place] Systolic (mm Hg) 2017-07-05 06:18:00 [facility] [place] Diastolic (mm Hg) 2017-07-05 06:18:00 [facility] [place] Temperature Oral (F) 2017-07-05 06:18:00 98.4 F [facility] Heart Rate 2017-07-05 06:18:00 72 /min [facility] [place] Respitory Rate 2017-07-05 06:18:00 [facility] Systolic (mm Hg) 2017-07-04 19:40:00 [facility] [place] Diastolic (mm Hg) 2017-07-04 19:40:00 [facility] Temperature Oral (F) 2017-07-04 19:40:00 98.4 F [facility] [place] Heart Rate 2017-07-04 19:40:00 78 /min [facility] Respitory Rate 2017-07-04 19:40:00 [facility] Systolic (mm Hg) 2017-07-04 17:31:00 [facility] [place] Diastolic (mm Hg) 2017-07-04 17:31:00 [facility] Temperature Oral (F) 2017-07-04 17:31:00 98 F [facility] Heart Rate 2017-07-04 17:31:00 71 /min [facility] Respitory Rate 2017-07-04 17:31:00 [facility] [place] Systolic (mm Hg) 2017-07-04 13:01:54 [facility] [place] Diastolic (mm Hg) 2017-07-04 13:01:54 [facility] [place] Heart Rate 2017-07-04 13:01:54 71 /min [facility] Systolic (mm Hg) 2017-07-04 05:14:00 [facility] [place] Diastolic (mm Hg) 2017-07-04 05:14:00 [facility] Temperature Oral (F) 2017-07-04 05:14:00 98 F [facility] Heart Rate 2017-07-04 05:14:00 86 /min [facility] Respitory Rate 2017-07-04 05:14:00 [facility] [place] Systolic (mm Hg) 2017-07-04 00:52:00 [facility] [place] Diastolic (mm Hg) 2017-07-04 00:52:00 [facility] [place] Systolic (mm Hg) 2017-07-03 23:48:00 [facility] [place] Diastolic (mm Hg) 2017-07-03 23:48:00 [facility] Temperature Oral (F) 2017-07-03 23:48:00 98.6 F [facility] Heart Rate 2017-07-03 23:48:00 83 /min [facility] Respitory Rate 2017-07-03 23:48:00 [facility] Temperature Oral (F) 2017-07-03 20:46:00 98.6 F [facility] [place] Heart Rate 2017-07-03 20:46:00 83 /min [facility] Respitory Rate 2017-07-03 20:46:00 [facility] [place] Height 2017-07-03 20:25:00 [facility] [place] Weight 2016-01-03 18:30:00 [facility] Height 2016-01-03 18:30:00 [facility] Diastolic (mm Hg) 2016-01-03 18:30:00 [facility] Systolic (mm Hg) 2016-01-03 18:30:00 [facility] [place] Weight 2015-10-04 19:00:00 [facility] [place] Height 2015-10-04 19:00:00 [facility] [place] Diastolic (mm Hg) 2015-10-04 19:00:00 [facility] [place] Systolic (mm Hg) 2015-10-04 19:00:00 [facility] [place] Weight 2015-07-07 19:15:00 [facility] [place] Height 2015-07-07 19:15:00 [facility] Weight 2015-06-07 19:00:00 [facility] Height 2015-06-07 19:00:00 [facility] [place] Diastolic (mm Hg) 2015-06-07 19:00:00 [facility] [place] Systolic (mm Hg) 2015-06-07 19:00:00 [facility] Weight 2015-03-08 15:00:00 [facility] Height 2015-03-08 15:00:00 [facility] [place] Diastolic (mm Hg) 2015-03-08 15:00:00 [facility] Systolic (mm Hg) 2015-03-08 15:00:00 [facility] [place] Weight 2015-01-04 22:30:00 [facility] [place] Height 2015-01-04 22:30:00 [facility] Diastolic (mm Hg) 2015-01-04 22:30:00 [facility] Systolic (mm Hg) 2015-01-04 22:30:00 [facility] [place] Weight 2014-12-24 21:30:00 [facility] [place] Height 2014-12-24 21:30:00 [facility] Diastolic (mm Hg) 2014-12-24 21:30:00 [facility] Systolic (mm Hg) 2014-12-24 21:30:00 [facility] [place] Weight 2014-11-05 14:30:00 [facility] Height 2014-11-05 14:30:00 [facility] Diastolic (mm Hg) 2014-11-05 14:30:00 [facility] Systolic (mm Hg) 2014-11-05 14:30:00 [facility] Weight 2014-11-05 13:30:00 [facility] Height 2014-11-05 13:30:00 [facility] Diastolic (mm Hg) 2014-11-05 13:30:00 [facility] [place] Systolic (mm Hg) 2014-11-05 13:30:00 [facility] Weight 2014-03-23 16:15:00 [facility] [place] Height 2014-03-23 16:15:00 [facility] Diastolic (mm Hg) 2014-03-23 16:15:00 [facility] [place] Systolic (mm Hg) 2014-03-23 16:15:00 [facility] Weight 2014-02-04 19:30:00 [facility] Height 2014-02-04 19:30:00 [facility] Diastolic (mm Hg) 2014-02-04 19:30:00 [facility] [place] Systolic (mm Hg) 2014-02-04 19:30:00 [facility] Weight 2013-12-04 14:15:00 [facility] Height 2013-12-04 14:15:00 [facility] [place] Diastolic (mm Hg) 2013-12-04 14:15:00 [facility] [place] Systolic (mm Hg) 2013-12-04 14:15:00 [facility] Procedures Procedure Date / Time Performed Performing Clinician [facility] lay mammogram 2007-04-03 20:53:01 [facility] mcguire bone density 2005-02-13 19:44:42 [facility] mcguire Plan of Care Planned Activity [...] C enter of breast (procedure) [code = 472146486] Future Scheduled [address] [facility] 00:00:00 malignant neoplasm Medical C enter of colon (procedure) [code = 209298696] Encounters Start End Encounter Admission Attending Care Care Encounter Source Date/Time Date/Time Type Type Clinicians Facility Department ID 2020-08-14 [facility] [id number] [place] 03[place]:03 [facility] 2021-01-11 2021-01-11 Outpatient [facility]IV [facility] [id number] [id number] [facility] 00:00:00 00:00:00 [id number] [facility] 2021-01-11 2021-01-11 Outpatient PRIV PRIV [id number] [id number] [facility] 00:00:00 00:00:00 [id number] Medica l 2021-01-11 2021-01-11 Outpatient PRIV PRIV [id number] [id number] [facility] 00:00:00 00:00:00 [id number] Medica l 2018-10-01 2018-10-22 Outpatient [id number] 00:00:00 00:00:00 [id number]-461f [id number] cef-461f -[id number] 2b6 55d2b6 2018-09-24 2018-09-22 Inpatient E [facility] MED [id number] [facility] 16:43:00 13:56:00 2017-07-03 2017-07-26 Outpatient [id number] 00:00:00 00:00:00 [id number] 9ca 63b9ca 2016-05-17 2016-05-17 Rx nullFlavo Bria [id number] 51-d [facility] 17:37:00 17:37:00 clarificat usama Nolasco MD 583-4e7d-9 l ion 183-x52602 [facility] nn 0dfa6f 2016-05-17 2016-05-17 Rx nullFlavo khoa Fraser8720 51-d [facility] 17:37:00 17:37:00 clarificat usama Nolasco MD 583-4e7d-9 l ion 183-a78761 [facility] nn 0dfa6f 2016-05-17 2016-05-17 Outpatient Bria Fraser, [id number] [facility] 11:37:00 11:37:00 Gaurav Beavers s 2016-05-03 2016-05-03 refill nullFlavo Bria, [id number] 91-1 [facility] 15:31:00 15:31:00 request r Gaurav GRANT 90c-4d9b-b l 6ba-222cad [facility] nn 9adf4c 2016-05-03 2016-05-03 refill nullNicko Bria, c53aff 5b-1 [facility] 15:31:00 15:31:00 request r Gaurav GRANT s79-3411-9 l 19e-828b33 Linda nn 41dce9 2016-05-03 2016-05-03 refill nullFlavo Bria, 8gs525 91-1 [facility] 15:31:00 15:31:00 request r Gaurav GRANT 90c-4d9b-b l 6ba-222cad [facility] nn 9adf4c 2016-05-03 2016-05-03 refill nullNicko Bria, c53aff 5b-1 [facility] 15:31:00 15:31:00 request r Gaurav GRANT o67-5126-8 l 19e-828b33 [facility] nn 41dce9 2016-05-03 2016-05-03 Outpatient Bria Fraser, [id number] [facility] 09:31:00 09:31:00 Gaurav Beavers s 2016-03-20 2016-03-20 refill nullNicko Bria, va996g e9-0 [facility] 18:57:00 18:57:00 request..k r Gaurav GRANT 1s1-0i06-x l z 622-01m801 [facility] [id number] 6551-12-12 2016-03-20 refill nullNicko Bria, [id number] ea-e [facility] 18:57:00 18:57:00 request..k r Gaurav GRANT n50-6612-6 l z 0f1-812j85 [facility] nn 653fd6 2016-03-20 2016-03-20 refill nullNicko Bria, 57e8d9 57-3 [facility] 18:57:00 18:57:00 request..k r Gaurav GRANT c34-1913-0 l z ee9-6a7c82 [facility] 597292 1799-12-12 2016-03-20 refill nullFlavo Bria, va474x e9-0 [facility] 18:57:00 18:57:00 request..k usama Nolasco MD 2h8-3p80-z l z 622-70f510 [facility] nn 168627 3339-12-12 2016-03-20 refill nullFlavo Bria, 63i233 ea-e [facility] 18:57:00 18:57:00 request..k usama Nolasco MD k74-3618-4 l z 0f3-444e16 [facility] nn 653fd6 2016-03-20 2016-03-20 refill nullFlavo Bria, 57e8d9 57-3 [facility] 18:57:00 18:57:00 request..k usama Nolasco MD e92-3360-9 l z ee9-6a7c82 [facility] nn 474012 7059-12-12 2016-03-20 Outpatient Bria Fraser, [id number] [facility] 12:57:00 12:57:00 Gaurav Nolasco MD alWork s 2016-03-09 2016-03-09 REFILL nullFlavo Bria, [id number] c6-2 [facility] 20:08:00 20:08:00 REQUEST r Gaurav GRANT 905-4225-b l [id number]-f723b7 [facility] nn a5a2e9 2016-03-09 2016-03-09 REFILL nullNicko Bria, fdcef4 53-b [facility] 20:08:00 20:08:00 REQUEST r Gaurav GRANT 22b-46b8-a l 0s5-ug75r6 [facility] nn s4p317 2016-03-09 2016-03-09 REFILL nullFlavo Bria, c8fd11 e2-0 [facility] 20:08:00 20:08:00 REQUEST r Gaurav GRANT 725-4a2c-9 l baf-ca453t [facility] nn a15e6b 2016-03-09 2016-03-09 REFILL nullFlavo Bria, 7ac9bc f9-8 [facility] 20:08:00 20:08:00 REQUEST r Gaurav GRANT 23e-4586-8 l ecc-713cf6 [facility] nn 3eb5de 2016-03-09 2016-03-09 REFILL Sonya Fraser, [id number] c6-2 [facility] 20:08:00 20:08:00 REQUEST usama Nolasco MD 905-4225-b l [id number]-f723b7 Linda nn a5a2e9 2016-03-09 2016-03-09 REFILL Sonya Fraser, fdcef4 53-b [facility] 20:08:00 20:08:00 REQUEST usama Nolasco MD 22b-46b8-a l 5d6-ad10t5 [facility] nn k3z709 2016-03-09 2016-03-09 REFILL Sonya Fraser, 7ac9bc f9-8 [facility] 20:08:00 20:08:00 REQUEST usama Nolasco MD 23e-4586-8 l ecc-713cf6 [facility] nn 3eb5de 2016-03-09 2016-03-09 REFILL Sonya Fraser, c8fd11 e2-0 [facility] 20:08:00 20:08:00 REQUEST usama Nolasco MD 725-4a2c-9 l baf-hi490s Linda nn a15e6b 2016-03-09 2016-03-09 [facility] Bria Fraser, [id number] [facility]inic 14:08:00 14:08:00 Gaurav Nolasco MD alWork s 2016-01-03 2016-01-03 3 Months nullFlavo Bria, 7534e 763-7 [facility] 19:30:00 19:30:00 (Reason: usama Nolasco MD 17a-4c29-a l Thyroid , ff8-08730n Her mgcuire Cholestero 8z121k l ) 2016-01-03 2016-01-03 3 Months nullFlavreji Fraser, aa97c df8-f [facility] 19:30:00 19:30:00 (Reason: usama Nolasco MD fa1-4387-b l Thyroid , 11d-aa62c3 Her mcgu[facility] Cholestero 34ac8d l ) 2016-01-03 2016-01-03 3 Months nullFlavo Bria, 4449e 47e-a [facility] 19:30:00 19:30:00 (Reason: usama Nolasco MD 5s9-2080-i l Thyroid , cc5-960a28 Her mcgu[facility] Cholestero 4086da l ) 2016-01-03 2016-01-03 3 Months nullFlavo Bria, 3613e 86e-0 [facility] 19:30:00 19:30:00 (Reason: usama Nolasco MD j3i-7i9o-j l Thyroid , i83-42ib4g Her mcguire Cholestero e5a0db l ) 2016-01-03 2016-01-03 3 Months nullFlavo Bria, 7534e 763-7 [facility] 19:30:00 19:30:00 (Reason: usama Nolasco MD 17a-4c29-a l Thyroid , ff8-97461g Her mcguire Cholestero 9p461y l ) 2016-01-03 2016-01-03 3 Months nullFlavo Bria, aa97c df8-f [facility] 19:30:00 19:30:00 (Reason: usama Nolasco MD fa1-4387-b l Thyroid , 11d-aa62c3 Her mcgu[facility] Cholestero 34ac8d l ) 2016-01-03 2016-01-03 3 Months nullFlavo Bria, 3613e 86e-0 [facility] 19:30:00 19:30:00 (Reason: usama Nolasco MD s4h-5i5j-p l Thyroid , l78-06qa6k Her mcguire Cholestero e5a0db l ) 2016-01-03 2016-01-03 3 Months nullFlavo Bria, 4449e 47e-a [facility] 19:30:00 19:30:00 (Reason: usama Nolasco MD 5a1-1988-t l Thyroid , cc5-960a28 Her mcguire Cholestero 4086da l ) 2016-01-03 2016-01-03 3 Months nullFlavo Bria, 6a203 fa8-8 [facility] 18:30:00 18:30:00 (Reason: usama Nolasco MD 2ff-40df-9 l Thyroid , i47-j0709v Her mcguire Cholestero d76e66 l ) 2016-01-03 2016-01-03 3 Months nullFlavo Bria, 6a203 fa8-8 [facility] 18:30:00 18:30:00 (Reason: usama Nolasco MD 2ff-40df-9 l Thyroid , a15-u4704q Her mcguire Cholestero d76e66 l ) 2016-01-03 2016-01-03 Outpatient Bria Fraser, [id number] [facility]inic 13:30:00 13:30:00 Gaurav Nolasco MD alWork s 2015-10-04 2015-10-04 3 Months nullFlavo Bria, e1015 332-3 [facility] 20:00:00 20:00:00 (Reason: usama Nolasco MD ea7-42b6-9 l HTn , ea6-x75382 Linda nn Thyroid 16c46e and cholestero l ) 2015-10-04 2015-10-04 3 Months nullFlavo Bria, df55e 51f-a [facility] 20:00:00 20:00:00 (Reason: usama Nolasco MD ec7-469b-b l HTn , a75-52gan4 Linda nn Thyroid [id number] and cholestero l ) 2015-10-04 2015-10-04 3 Months nullFlavo Bria, 8051e 85e-c [facility] 20:00:00 20:00:00 (Reason: usama Nolasco MD 321-4623-b l HTn , ce9-d8fb83 Linda nn Thyroid 3fffe9 and cholestero l ) 2015-10-04 2015-10-04 3 Months nullFlavo Bria, 6d134 17b-4 [facility] 20:00:00 20:00:00 (Reason: usama Nolasco MD 17a-498d-9 l HTn , 579-fddf90 Linda nn Thyroid [id number] and cholestero l ) 2015-10-04 2015-10-04 3 Months nullFlavo Bria, e1015 332-3 [facility] 20:00:00 20:00:00 (Reason: usama Nolasco MD ea7-42b6-9 l HTn , ea6-h14917 Linda nn Thyroid 16c46e and cholestero l ) 2015-10-04 2015-10-04 3 Months nullFlavo Bria, df55e 51f-a [facility] 20:00:00 20:00:00 (Reason: usama Nolasco MD ec7-469b-b l HTn , h75-30zov4 Linda nn Thyroid 840362 and cholestero l ) 2015-10-04 2015-10-04 3 Months nullFlavo Bria, 6d134 17b-4 [facility] 20:00:00 20:00:00 (Reason: usama Nolasco MD 17a-498d-9 l HTn , 579-fddf90 Linda nn Thyroid 804466 and cholestero l ) 2015-10-04 2015-10-04 3 Months nullFlavo Bria, 8051e 85e-c [facility] 20:00:00 20:00:00 (Reason: usama Nolasco MD 321-4623-b l HTn , ce9-d8fb83 Linda nn Thyroid 3fffe9 and cholestero l ) 2015-10-04 2015-10-04 3 Months nullFlavo Bria, 0f9d9 737-0 [facility] 19:00:00 19:00:00 (Reason: usama Nolasco MD 15b-4e5b-a l HTn , 8f0-c8fli1 [place] nn Thyroid e6fbd7 and cholestero l ) 2015-10-04 2015-10-04 3 Months nullFlavo Bria, 8487a 7f8-f [facility] 19:00:00 19:00:00 (Reason: usama Nolasco MD 08f-4508-a l HTn , 3b9-104c8h Linda nn Thyroid ex4495 and cholestero l ) 2015-10-04 2015-10-04 3 Months nullFlavo Bria, 8487a 7f8-f [facility] 19:00:00 19:00:00 (Reason: usama Nolasco MD 08f-4508-a l HTn , 2u3-531i9r Linda nn Thyroid mz7442 and cholestero l ) 2015-10-04 2015-10-04 3 Months nullFlavo Bria, 0f9d9 737-0 [facility] 19:00:00 19:00:00 (Reason: usama Nolasco MD 15b-4e5b-a l HTn , 2i2-t1irg5 Linda nn Thyroid e6fbd7 and cholestero l ) 2015-10-04 2015-10-04 Outpatient Bria Fraser, [id number] [facility]inic 14:00:00 14:00:00 Gaurav Nolasco MD alWork s 2015-07-07 2015-07-07 4 Weeks nullFlavo Bria, [id number] b9-9 [facility] 20:15:00 20:15:00 (Reason: usama Nolasco MD 72e-43c7-a l Blood ec6-256571 Linda nn pressure ) 308fe3 2015-07-07 2015-07-07 4 Weeks nullFlavo Bria, 9cd3e3 bf-1 [facility] 20:15:00 20:15:00 (Reason: usaam Nolasco MD 7fe-4df3-a l Blood 8o3-6429p6 Linda nn pressure ) [id number] 2015-07-07 2015-07-07 4 Weeks nullFlavo Bria, 7b4f79 0f-e [facility] 20:15:00 20:15:00 (Reason: usama Nolasco MD v37-28gs-s l Blood 0ef-5640ff Linda nn pressure ) c708fa 2015-07-07 2015-07-07 4 Weeks nullFlavo Bria, 33s949 24-8 [facility] 20:15:00 20:15:00 (Reason: usama Nolasco MD 0bf-4152-8 l Blood 750-457566 Linda nn pressure ) 76b0b4 2015-07-07 2015-07-07 4 Weeks nullFlavo Bria, 693127 b9-9 [facility] 20:15:00 20:15:00 (Reason: usama Nolasco MD 72e-43c7-a l Blood ec6-488810 Linda nn pressure ) 308fe3 2015-07-07 2015-07-07 4 Weeks nullFlavo Bria, 9cd3e3 bf-1 [facility] 20:15:00 20:15:00 (Reason: usama Nolasco MD 7fe-4df3-a l Blood 0y8-8287a7 Linda nn pressure ) [id number] 2015-07-07 2015-07-07 4 Weeks nullFlavo Bria, 52a437 24-8 [facility] 20:15:00 20:15:00 (Reason: usama Nolasco MD 0bf-4152-8 l Blood 750-427771 Linda nn pressure ) 76b0b4 2015-07-07 2015-07-07 4 Weeks nullFlavo Bria, 7b4f79 0f-e [facility] 20:15:00 20:15:00 (Reason: usama Nolasco MD y39-19mp-b l Blood 0ef-5640ff Linda nn pressure ) c708fa 2015-07-07 2015-07-07 4 Weeks nullFlavo Bria, 96b6b9 a9-5 [facility] 19:15:00 19:15:00 (Reason: usama Nolasco MD 69a-4ec5-9 l Blood 08f-9e64e2 Linda nn pressure ) 6be5de 2015-07-07 2015-07-07 4 Weeks nullFlavo Bria, 02n410 55-2 [facility] 19:15:00 19:15:00 (Reason: usama Nolasco MD 5cb-4adc-8 l Blood bab-m67512 Linda nn pressure ) ca8fd7 2015-07-07 2015-07-07 4 Weeks nullFlavo Bria, 9b9e1e a8-b [facility] 19:15:00 19:15:00 (Reason: usama Nolasco MD db5-426c-8 l Blood 772-5fc6dd Linda nn pressure ) 4cc51f 2015-07-07 2015-07-07 4 Weeks nullFlavo Bria, 28n052 55-2 [facility] 19:15:00 19:15:00 (Reason: usama Nolasco MD 5cb-4adc-8 l Blood bab-z70694 Linda nn pressure ) ca8fd7 2015-07-07 2015-07-07 [...] s 2015-06-07 2015-06-07 3m x nullFlavo Bria, 6s4889 bb-7 [facility] 20:00:00 20:00:00 thyroid usama Nolasco MD 7f7-04it-6 l f97-5tk9p9 Linda nn 05b8dd 2015-06-07 2015-06-07 3m x nullFlavo Bria, zpc319 8b-5 [facility] 20:00:00 20:00:00 thyroid usama Nolasco MD 5x8-33qa-2 l 0q2-2ooe93 Linda nn c6a63d 2015-06-07 2015-06-07 3m x nullFlavo Bria, gl5065 1c-3 [facility] 20:00:00 20:00:00 thyroid r Gaurav GRANT 4ab-40d3-8 l [id number]-f24376 Linda nn cf7e1f 2015-06-07 2015-06-07 3m x nullFlavo Bria, 7c97be 85-8 [facility] 20:00:00 20:00:00 thyroid r Gaurav GRANT 6cf-4b9f-b l bfd-5545d2 Linda nn 8cf8c1 2015-06-07 2015-06-07 3m x nullFlavo Bria, 1f1225 bb-7 [facility] 20:00:00 20:00:00 thyroid r Gaurav GRANT 1s7-28fe-1 l k99-8wl8n4 Linda nn 05b8dd 2015-06-07 2015-06-07 3m x nullFlavo Bria, aov872 8b-5 [facility] 20:00:00 20:00:00 thyroid r Gaurav GRANT 1l1-12gz-1 l 7i6-2rxi21 Linda nn c6a63d 2015-06-07 2015-06-07 3m x nullFlavo Bria, 7c97be 85-8 [facility] 20:00:00 20:00:00 thyroid r Gaurav GRANT 6cf-4b9f-b l bfd-5545d2 Linda nn 8cf8c1 2015-06-07 2015-06-07 3m x nullFlavo Bria, af3194 1c-3 [facility] 20:00:00 20:00:00 thyroid r Gauarv GRANT 4ab-40d3-8 l n1x-z40151 Linda nn cf7e1f 2015-06-07 2015-06-07 3m x nullFlavo Bria, a64a79 ef-6 [facility] 19:00:00 19:00:00 thyroid r Gaurav GRANT dc9-4127-a l g70-47681v Linda nn 82v840 2015-06-07 2015-06-07 3m x nullFlavo Bria, 1215ed 22-f [facility] 19:00:00 19:00:00 thyroid r Gaurav GRANT 81c-48e9-a l 021-1s830t Linda nn bd4c6c 2015-06-07 2015-06-07 3m x nullFlavo Bria, b27ca9 b9-e [facility] 19:00:00 19:00:00 thyroid r Gaurav GRANT 04a-4689-8 l 5ff-a93b4b Linda nn 36bb32 2015-06-07 2015-06-07 3m x nullFlavo Bria, 5021b4 89-c [facility] 19:00:00 19:00:00 thyroid r Gaurav GRANT 940-489d-8 l ae8-8e402m Linda nn 84cf8c 2015-06-07 2015-06-07 3m x nullFlavo Bria, 1215ed 22-f [facility] 19:00:00 19:00:00 thyroid r Gaurav GRANT 81c-48e9-a l 021-5n569g Linda nn bd4c6c 2015-06-07 2015-06-07 3m x nullFlavo Bria, b27ca9 b9-e [facility] 19:00:00 19:00:00 thyroid r Gaurav GRANT 04a-4689-8 l 5ff-a93b4b Linda nn 36bb32 2015-06-07 2015-06-07 3m x nullFlavo Bria, 5021b4 89-c [facility] 19:00:00 19:00:00 thyroid r Gaurav GRANT 940-489d-8 l ae8-6m463z Linda nn 84cf8c 2015-06-07 2015-06-07 3m x nullFlavo Bria, a64a79 ef-6 [facility] 19:00:00 19:00:00 thyroid r Gaurav GRANT dc9-4127-a l t05-12153r Linda nn 91a914 2015-06-07 2015-06-07 Outpatient Bria [facility], [id number] [facility] 14:00:00 14:00:00 Gaurav Nolasco MD alWork s 2015-03-08 2015-03-08 4 Months nullFlavo Bria, 20887 1d3-6 [facility] 15:00:00 15:00:00 (Reason: r Gaurav GRANT 312-46ee-8 l Thyroid 088-54b0eb Linda nn and 4214fc hyperlipid emia ) 2015-03-08 2015-03-08 4 Months nullFlavo Bria, 6ce1f 091-a [facility] 15:00:00 15:00:00 (Reason: usama Nolasco MD w3p-8b2x-5 l Thyroid k17-o88f61 Linda nn and 545f6c hyperlipid emia ) 2015-03-08 2015-03-08 4 Months nullFlavo Bria, 11b79 b1d-5 [facility] 15:00:00 15:00:00 (Reason: usama Nolasco MD o21-4374-m l Thyroid 1v8-29r599 Linda nn and b18dc8 hyperlipid emia ) 2015-03-08 2015-03-08 4 Months nullFlavo Bria, 06751 441-6 [facility] 15:00:00 15:00:00 (Reason: usama Nolasco MD 44d-4e7e-8 l Thyroid a76-h7s29x Linda nn and 5a4c54 hyperlipid emia ) 2015-03-08 2015-03-08 4 Months nullFlavo Bria, 8e830 7f9-8 [facility] 15:00:00 15:00:00 (Reason: usama Nolasco MD af3-42c0-9 l Thyroid 20e-2db7b4 Linda nn and da5ea9 hyperlipid emia ) 2015-03-08 2015-03-08 4 Months nullFlavo Bria, 35991 1d3-6 [facility] 15:00:00 15:00:00 (Reason: usama Nolasco MD 312-46ee-8 l Thyroid 088-54b0eb Linda nn and 4214fc hyperlipid emia ) 2015-03-08 2015-03-08 4 Months nullFlavo Bria, 6ce1f 091-a [facility] 15:00:00 15:00:00 (Reason: usama Nolasco MD c4f-1p0a-1 l Thyroid r81-u97d59 Linda nn and 545f6c hyperlipid emia ) 2015-03-08 2015-03-08 4 Months nullFlavo Bria, 11b79 b1d-5 [facility] 15:00:00 15:00:00 (Reason: usama Nolasco MD t76-8906-h l Thyroid 8k2-91n753 Linda nn and b18dc8 hyperlipid emia ) 2015-03-08 2015-03-08 4 Months nullFlavo Bria, 8e830 7f9-8 [facility] 15:00:00 15:00:00 (Reason: usama Nolasco MD af3-42c0-9 l Thyroid 20e-2db7b4 Linda nn and da5ea9 hyperlipid emia ) 2015-03-08 2015-03-08 4 Months nullFlavo Bria, 58690 441-6 [facility] 15:00:00 15:00:00 (Reason: usama Nolasco MD 44d-4e7e-8 l Thyroid h75-x4w47x Linda nn and 5a4c54 hyperlipid emia ) 2015-03-08 2015-03-08 4 Months nullFlavo Bria, c6b99 a01-9 [facility] 14:00:00 14:00:00 (Reason: usama Nolasco MD q6y-0v43-w l Thyroid 7l1-iwpy32 Linda nn and a02bba hyperlipid emia ) 2015-03-08 2015-03-08 4 Months nullFlavo Bria, e7e24 3e3-5 [facility] 14:00:00 14:00:00 (Reason: usama Nolasco MD n5u-3bx9-1 l Thyroid 1p3-2nt03u Linda nn and 8iv432 hyperlipid emia ) 2015-03-08 2015-03-08 4 Months [...] [facility] 14:00:00 14:00:00 (Reason: usama Nolasco MD n5m-2fs9-2 l Thyroid 5e2-6ef24q Linda nn and 8ai878 hyperlipid emia ) 2015-03-08 2015-03-08 4 Months [...] [facility] 14:00:00 14:00:00 (Reason: usama Nolasco MD t3u-9z90-q l Thyroid 9s6-ziif59 Linda nn and a02bba hyperlipid emia ) 2015-03-08 2015-03-08 Outpatient Bria [facility], [id number] [facility]inic 09:00:00 09:00:00 Gaurav Nolasco MD alWork s 2015-02-23 2015-02-23 Unknown nullFlavo Bria, 164d94 ba-5 [facility] 15:30:00 15:30:00 usama Nolasco MD 409-4151-b l 1d4-7405vb Linda nn 8bdf0f 2015-02-23 2015-02-23 Unknown nullFlavo Bria, 94ff27 3b-7 [facility] 15:30:00 15:30:00 usama Nolasco MD 8r5-7688-7 l 0m4-t85uqk Linda nn 6e10f7 2015-02-23 2015-02-23 Unknown nullFlavo Bria, 5fa15e b7-f [facility] 15:30:00 15:30:00 usama Nolasco MD 030-47e4-a l 563-4bcd82 Linda nn a0ba4c 2015-02-23 2015-02-23 Unknown nullFlavo Bria, 7ff0e3 49-7 [facility] 15:30:00 15:30:00 r Gaurav GRANT 012-4353-a l 299-0beab9 Linda nn 4f8f58 2015-02-23 2015-02-23 Unknown nullFlavo Bria, 45571b b0-3 [facility] 15:30:00 15:30:00 r Gaurav GRANT q7u-2x3u-3 l 46e-08eefa Linda nn a0afed 2015-02-23 2015-02-23 Unknown nullFlavo Bria, qgf303 72-6 [facility] 15:30:00 15:30:00 r Gaurav GRANT bf7-4829-b l 964-ebe01f Linda nn ws2730 2015-02-23 2015-02-23 Unknown nullFlavo Bria, 963289 e2-a [facility] 15:30:00 15:30:00 r Gaurav GRANT erin-4ad7-9 l f2p-8535r5 Linda nn 633fea 2015-02-23 2015-02-23 Unknown nullFlavo Bria, 91-3 [facility] 15:30:00 15:30:00 r Gaurav GRANT m90-23c3-f l 607-f397f8 Linda nn d7c7f3 2015-02-23 2015-02-23 Unknown nullFlavo Bria, 9839bc df-e [facility] 15:30:00 15:30:00 r Gaurav GRANT s0k-6q96-r l cca-cdaab9 Linda nn e79ab5 2015-02-23 2015-02-23 Unknown nullFlavo Bria, 164d94 ba-5 [facility] 15:30:00 15:30:00 r Gaurav GRANT 409-4151-b l 4h4-6052dz Linda nn 8bdf0f 2015-02-23 2015-02-23 Unknown nullFlavo Bria, 94ff27 3b-7 [facility] 15:30:00 15:30:00 r Gaurav GRANT 5i0-9980-8 l 2n2-o26sxv Ilnda nn 6e10f7 2015-02-23 2015-02-23 Unknown nullFlavo Bria, 5fa15e b7-f [facility] 15:30:00 15:30:00 r Gaurav GRANT 030-47e4-a l 563-4bcd82 Linda nn a0ba4c 2015-02-23 2015-02-23 Unknown nullFlavo Bria, 68162m b0-3 [facility] 15:30:00 15:30:00 r Gaurav GRANT p3c-3s6d-6 l 46e-08eefa Linda nn a0afed 2015-02-23 2015-02-23 Unknown nullFlavo Bria, 7ff0e3 49-7 [facility] 15:30:00 15:30:00 r Gaurav GRANT 012-4353-a l 299-0beab9 Linda nn 4f8f58 2015-02-23 2015-02-23 Unknown nullFlavo Bria, oas610 72-6 [facility] 15:30:00 15:30:00 r Gaurav GRANT bf7-4829-b l 964-ebe01f Linda nn xm0868 2015-02-23 2015-02-23 Unknown nullFlavo Bria, 564237 e2-a [facility] 15:30:00 15:30:00 r Gaurav GRANT erin-4ad7-9 l f7z-4788q5 Linda nn 633fea 2015-02-23 2015-02-23 Unknown nullFlavo Bria, 9839bc df-e [facility] 15:30:00 15:30:00 r Gaurav GRANT p3e-0u15-g l cca-cdaab9 Linda nn e79ab5 2015-02-23 2015-02-23 Unknown nullFlavo Bria, 91-3 [facility] 15:30:00 15:30:00 r Gaurav GRANT c21-35b5-l l 607-f397f8 Linda nn d7c7f3 2015-02-23 2015-02-23 Unknown nullFlavo Bria, 92b3c6 cf-0 [facility] 14:30:00 14:30:00 r Gaurav GRANT 03f-49a6-8 l 736-k15659 [facility] nn i70416 2015-02-23 2015-02-23 Unknown nullFlavo Bria, 521ce0 47-5 [facility] 14:30:00 14:30:00 r Gaurav GRANT l84-43jb-6 l 3cb-19d5e3 Linda nn t16232 2015-02-23 2015-02-23 Unknown nullFlavo Bria, jd0815 34-d [facility] 14:30:00 14:30:00 r Gaurav GRANT 807-495b-8 l 15d-4e29e0 Linda nn c08430 2015-02-23 2015-02-23 Unknown nullFlavo Bria, b2s500 34-b [facility] 14:30:00 14:30:00 r Gaurav GRANT 78f-4e55-9 l 200-cf4d92 Linda nn 0z571t 2015-02-23 2015-02-23 Unknown nullFlavo Bria, 521ce0 47-5 [facility] 14:30:00 14:30:00 r Gaurav GRANT s55-15ka-5 l 3cb-19d5e3 Linda nn r47216 2015-02-23 2015-02-23 Unknown nullFlavo Bria, ka1723 34-d [facility] 14:30:00 14:30:00 r Gauarv GRANT 807-495b-8 l 15d-4e29e0 Linda nn n64482 2015-02-23 2015-02-23 Unknown nullFlavo Bria, e2u744 34-b [facility] 14:30:00 14:30:00 r Gaurav GRANT 78f-4e55-9 l 200-cf4d92 Linda nn 1z668o 2015-02-23 2015-02-23 Unknown nullFlavo Bria, 92b3c6 cf-0 [facility] 14:30:00 14:30:00 r Gaurav GRANT 03f-49a6-8 l 736-l58886 Linda nn g62979 2015-02-23 2015-02-23 Outpatient Bria Fraser, 184 940 eClinic 09:30:00 09:30:00 Gaurav Nolasco MD alWork s 2015-02-11 2015-02-11 Unknown nullFlavo Bria, i25675 fa-9 [facility] 00:31:00 00:31:00 r Gaurav GRANT 120-4739-b l 129-0079af Linda nn 95fc4f 2015-02-11 2015-02-11 Unknown nullFlavo Bria, 06ea93 42-1 [facility] 00:31:00 00:31:00 r Gaurav GRANT 2f9-34l7-f l 88c-ge0405 Linda nn 8h813j 2015-02-11 2015-02-11 Unknown nullFlavo Bria, 10952n db-3 [facility] 00:31:00 00:31:00 r Gaurav GRANT 807-427a-b l c56-8ml5e9 Linda nn f2ad18 2015-02-11 2015-02-11 Unknown nullFlavo Bria, c5dedb a0-0 [facility] 00:31:00 00:31:00 r Gaurav GRANT 567-4215-9 l 540-8cf7b8 Linda nn d51ff2 2015-02-11 2015-02-11 Unknown nullFlavo Bria, 8f5f7c 38-1 [facility] 00:31:00 00:31:00 r Gaurav GRANT 356-4309-9 l bde-50fa6a Linda nn 3ac40f 2015-02-11 2015-02-11 Unknown nullFlavo Bria, 5eff1c c7-d [facility] 00:31:00 00:31:00 r Gaurav GRANT ce9-4034-9 l 337-8ad26c Linda nn b52561 2015-02-11 2015-02-11 Unknown nullFlavo Bria, 067a29 d0-8 [facility] 00:31:00 00:31:00 r Gaurav GRANT fe2-4cc6-a l 7df-49e35f Linda nn b2e5af 2015-02-11 2015-02-11 Unknown nullFlavo Bria, c37812 61-3 [facility] 00:31:00 00:31:00 r Gaurav GRANT ff0-4b55-8 l 554-56t192 Linda nn 6b82eb 2015-02-11 2015-02-11 Unknown nullFlavo Bria, 4a8adc a4-8 [facility] 00:31:00 00:31:00 r Gaurav GRANT 338-4ec9-a l 2w3-61un09 Linda nn 2fcad7 2015-02-11 2015-02-11 Unknown nullFlavo Bria, 369bed b7-9 [facility] 00:31:00 00:31:00 r Gaurav GRANT trenton-4194-9 l ec4-852ceb Linda nn l3848k 2015-02-11 2015-02-11 Unknown nullFlavo Bria, 315f29 2a-0 [facility] 00:31:00 00:31:00 r Gaurav GRANT cf9-4538-a l 79d-f5e2d1 Linda nn 5f9bb2 2015-02-11 2015-02-11 Unknown nullFlavo Bria, cb5db9 f8-3 [facility] 00:31:00 00:31:00 r Gaurav GRANT h4c-8cvr-7 l 85b-6ecc81 Linda nn 377ea3 2015-02-11 2015-02-11 Unknown nullFlavo Bria, f574d9 b8-1 [facility] 00:31:00 00:31:00 r Gaurav GRANT 129-4d70-b l 0f2-o4110u Linda nn b66336 2015-02-11 2015-02-11 Unknown nullFlavo Bria, 30120o db-3 [facility] 00:31:00 00:31:00 r Gaurav GRANT 807-427a-b l g42-9lc0o9 Linda nn f2ad18 2015-02-11 2015-02-11 Unknown nullFlavo Bria, c5dedb a0-0 [facility] 00:31:00 00:31:00 r Gaurav GRANT 567-4215-9 l 540-8cf7b8 Linda nn d51ff2 2015-02-11 2015-02-11 Unknown nullFlavo Bria, c70068 fa-9 [facility] 00:31:00 00:31:00 r Gaurav GRANT 120-4739-b l 129-0079af Linda nn 95fc4f 2015-02-11 2015-02-11 Unknown nullFlavo Bria, 06ea93 42-1 [facility] 00:31:00 00:31:00 r Gaurav GRANT 4c4-31g2-w l 88c-ec6370 Linda nn 6f166z 2015-02-11 2015-02-11 Unknown nullFlavo Bria, 8f5f7c 38-1 [facility] 00:31:00 00:31:00 r Gaurav GRATN 356-4309-9 l bde-50fa6a Linda nn 3ac40f 2015-02-11 2015-02-11 Unknown nullFlavo Bria, 5eff1c c7-d [facility] 00:31:00 00:31:00 r Gaurav GRANT ce9-4034-9 l 337-8ad26c Linda nn f24667 2015-02-11 2015-02-11 Unknown nullFlavo Bria, 067a29 d0-8 [facility] 00:31:00 00:31:00 r Gaurav GRANT fe2-4cc6-a l 7df-49e35f Linda nn b2e5af 2015-02-11 2015-02-11 Unknown nullFlavo Bria, 4a8adc a4-8 [facility] 00:31:00 00:31:00 r Gaurav GRANT 338-4ec9-a l 2y4-99gp06 Linda nn 2fcad7 2015-02-11 2015-02-11 Unknown nullFlavo Bria, g12533 61-3 [facility] 00:31:00 00:31:00 r Gaurav GRANT ff0-4b55-8 l 554-64k927 Linda nn 6b82eb 2015-02-11 2015-02-11 Unknown nullFlavo Bria, 369bed b7-9 [facility] 00:31:00 00:31:00 r Gaurav GRANT trenton-4194-9 l ec4-852ceb Linda nn d4922o 2015-02-11 2015-02-11 Unknown nullFlavo Bria, 315f29 2a-0 [facility] 00:31:00 00:31:00 r Gaurav GRANT cf9-4538-a l 79d-f5e2d1 Linda nn 5f9bb2 2015-02-11 2015-02-11 Unknown nullFlavo Bria, f574d9 b8-1 [facility] 00:31:00 00:31:00 r Gaurav GRANT 129-4d70-b l 5i4-o4920x Linda nn a51950 2015-02-11 2015-02-11 Unknown nullFlavo Bria, cb5db9 f8-3 [facility] 00:31:00 00:31:00 r Gaurav GRANT r8r-3jlu-1 l 85b-6ecc81 Linda nn 377ea3 2015-02-10 2015-02-10 Unknown nullFlavo Bria, 0562b1 c8-e [facility] 23:31:00 23:31:00 r Gaurav GRANT 40b-4ec5-a l 70b-9a7b6f Linda nn 354764 1602-11-04 2015-02-10 Unknown nullFlavo Bria, 04688x bc-0 [facility] 23:31:00 23:31:00 r Gaurav GRANT 094-45f1-b l eae-x7f461 Linda nn 55a4c7 2015-02-10 2015-02-10 Unknown nullFlavo Bria, e0b4ae 48-d [facility] 23:31:00 23:31:00 r Gaurav GRANT 832-4fe1-9 l 737-7c81c2 Linda nn n6485g 2015-02-10 2015-02-10 Unknown nullFlavo Bria, 17dd62 30-d [facility] 23:31:00 23:31:00 r Gaurav GRANT 029-48b9-8 l 028-n3i454 Linda nn 1c5acb 2015-02-10 2015-02-10 Unknown nullFlavo Bria, 85059q bc-0 [facility] 23:31:00 23:31:00 r Gaurav GRANT 094-45f1-b l eae-v9e430 Linda nn 55a4c7 2015-02-10 2015-02-10 Unknown nullFlavo Bria, e0b4ae 48-d [facility] 23:31:00 23:31:00 r Gaurav GRANT 832-4fe1-9 l 737-7c81c2 Linda nn u8404g 2015-02-10 2015-02-10 Unknown nullFlavo Bria, 17dd62 30-d [facility] 23:31:00 23:31:00 r Gaurav GRANT 029-48b9-8 l 028-r9w366 Linda nn 1c5acb 2015-02-10 2015-02-10 Unknown nullFlavo Bria, 0562b1 c8-e [facility] 23:31:00 23:31:00 r Gaurav GRANT 40b-4ec5-a l 70b-9a7b6f Linda nn 304022 9602-11-04 2015-02-10 Outpatient Bria Fraser, 183 791 e[facility]inic 18:31:00 18:31:00 Gaurav Nolasco MD alWork s 2015-02-08 2015-02-08 LAB ORDER nullFlavo Bria, 1db1 23ed-3 [facility] 22:08:00 22:08:00 r Gaurav GRANT 3a2-14k9-9 l 243-91v176 Linda nn 1c06e1 2015-02-08 2015-02-08 LAB ORDER Sonya Fraser, 687e 76db-0 [facility] 22:08:00 22:08:00 r Gaurav GRANT 570-4722-9 l 92e-f7af1f Linda nn 2d878t 2015-02-08 2015-02-08 LAB ORDER Sonya Fraser, ee47 8edc-f [facility] 22:08:00 22:08:00 r Gaurav GRANT j57-3526-0 l 163-e3c99e Linda nn l4x590 2015-02-08 2015-02-08 LAB ORDER Sonya Fraser, c867 64e3-a [facility] 22:08:00 22:08:00 r Gaurav GRANT acc-4ef9-8 l ef3-817780 Linda nn a07f05 2015-02-08 2015-02-08 LAB ORDER Sonya Fraser, b46c 8cc0-1 [facility] 22:08:00 22:08:00 r Gaurav GRANT f67-6456-n l n2y-9c451t Linda nn 9adb24 2015-02-08 2015-02-08 LAB ORDER Sonya Fraser, 37c0 b205-b [facility] 22:08:00 22:08:00 r Gaurav GRANT l8e-9988-e l 3x0-0u9285 Linda nn 0eb1be 2015-02-08 2015-02-08 LAB ORDER Sonya Fraser, 4abd 18cb-e [facility] 22:08:00 22:08:00 r Gaurav GRANT ae7-492e-b l b91-j9p8x5 Linda nn aa65be 2015-02-08 2015-02-08 LAB ORDER Sonya Fraser, 55aa ca14-2 [facility] 22:08:00 22:08:00 r Gaurav GRANT 3i3-0c5w-y l 388-158745 Linda nn d0f3c3 2015-02-08 2015-02-08 LAB ORDER Sonya Fraser, f944 1280-3 [facility] 22:08:00 22:08:00 r Gaurav GRANT fc2-4369-b l cca-34690c Linda nn j1z509 2015-02-08 2015-02-08 LAB ORDER Sonya Fraser, e4ac 09e7-d [facility] 22:08:00 22:08:00 r Gaurav GRANT r18-27e2-e l 2w6-4v24jq Linda nn 865c08 2015-02-08 2015-02-08 LAB ORDER Sonya Fraser, 6458 bdc0-1 [facility] 22:08:00 22:08:00 r Gaurav GRANT 267-44a7-a l 606-r8272g Linda nn h8m114 2015-02-08 2015-02-08 LAB ORDER Sonya Fraser, c92a 374c-1 [facility] 22:08:00 22:08:00 r Gaurav GRANT 701-4e4d-9 l 615-1ue336 Linda nn 5ko949 2015-02-08 2015-02-08 LAB ORDER Sonya Fraser, ff70 2acb-4 [facility] 22:08:00 22:08:00 r Gaurav GRANT 5cc-4428-a l m6z-x45w44 Linda nn 846af4 2015-02-08 2015-02-08 LAB ORDER Shadeo Bria, 06b5 1d01-8 [facility] 22:08:00 22:08:00 r Gaurav GRANT 235-4f59-8 l 5c6-75x950 Linda nn 69a5b7 2015-02-08 2015-02-08 LAB ORDER Sonya Fraser, 687e 76db-0 [facility] 22:08:00 22:08:00 r Gaurav GRANT 570-4722-9 l 92e-f7af1f Linda nn 0w499t 2015-02-08 2015-02-08 LAB ORDER Sonya Fraser, c867 64e3-a [facility] 22:08:00 22:08:00 r Gaurav GRANT acc-4ef9-8 l ef3-000049 Linda nn a07f05 2015-02-08 2015-02-08 LAB ORDER Sonya Fraser, b46c 8cc0-1 [facility] 22:08:00 22:08:00 r Gaurav GRANT p17-9972-c l q2h-3l977v Linda nn 9adb24 2015-02-08 2015-02-08 LAB ORDER vicFlavo Bria, 1db1 23ed-3 [facility] 22:08:00 22:08:00 r Gaurav GRANT 7x9-99h7-3 l 243-87w175 Linda nn 1c06e1 2015-02-08 2015-02-08 LAB ORDER nullFlavo Bria, ee47 8edc-f [facility] 22:08:00 22:08:00 r Gaurav GRANT s92-7147-3 l 163-e3c99e Linda nn q4w119 2015-02-08 2015-02-08 LAB ORDER nullFlavo Bria, 37c0 b205-b [facility] 22:08:00 22:08:00 r Gaurav GRANT s0t-3065-j l 6j0-9o0333 Linda nn 0eb1be 2015-02-08 2015-02-08 LAB ORDER vicFlavo Bria, 4abd 18cb-e [facility] 22:08:00 22:08:00 r Gaurav GRANT ae7-492e-b l r67-y6a3s1 Linda nn aa65be 2015-02-08 2015-02-08 LAB ORDER vicFlavo Bria, 55aa ca14-2 [facility] 22:08:00 22:08:00 r Gaurav GRANT 8q4-7q7z-v l 388-794590 Linda nn d0f3c3 2015-02-08 2015-02-08 LAB ORDER Sonya Fraser, e4ac 09e7-d [facility] 22:08:00 22:08:00 r Gaurav GRANT f02-04n4-p l 4n9-9l33mm Linda nn 865c08 2015-02-08 2015-02-08 LAB ORDER Sonya Fraser, f944 1280-3 [facility] 22:08:00 22:08:00 r Gaurav GRANT fc2-4369-b l cca-34115v Linda nn r0l565 2015-02-08 2015-02-08 LAB ORDER Shadeo Bria, 6458 bdc0-1 [facility] 22:08:00 22:08:00 r Gaurav GRANT 267-44a7-a l 606-z2261s Linda nn g8h412 2015-02-08 2015-02-08 LAB ORDER Sonya Fraser, c92a 374c-1 [facility] 22:08:00 22:08:00 r Gaurav GRANT 701-4e4d-9 l 615-2lk182 Linda nn 4fj777 2015-02-08 2015-02-08 LAB ORDER Sonya Fraser, 06b5 1d01-8 [facility] 22:08:00 22:08:00 r Gaurav GRANT 235-4f59-8 l 2f8-01k307 Linda nn 69a5b7 2015-02-08 2015-02-08 LAB ORDER Sonya Fraser, ff70 2acb-4 [facility] 22:08:00 22:08:00 r Gaurav GRANT 5cc-4428-a l q0k-c94s68 Linda nn 846af4 2015-02-08 2015-02-08 LAB ORDER Sonya Fraser, 5b8a dfb7-e [facility] 21:08:00 21:08:00 r Gaurav GRANT 323-4c09-9 l 4q5-83nr47 Linda nn p0403n 2015-02-08 2015-02-08 LAB ORDER Sonya Fraser, 90a4 754c-d [facility] 21:08:00 21:08:00 r Gaurav GRANT fea-435f-a l ffb-9f3b23 Linda nn 4cd7d4 2015-02-08 2015-02-08 LAB ORDER Sonya Fraser, 2fba 434e-4 [facility] 21:08:00 21:08:00 r Gaurav GRANT fec-42ec-a l 456-a931cd Linda nn 2a32ba 2015-02-08 2015-02-08 LAB ORDER Sonya Fraser, f4e3 eb14-2 [facility] 21:08:00 21:08:00 r Gaurav GRANT 05f-49ec-8 l 5o7-4z2475 Linda nn 043618 6163-11-02 2015-02-08 LAB ORDER Sonya Fraser, 90a4 754c-d [facility] 21:08:00 21:08:00 r Gaurav GRANT fea-435f-a l ffb-9f3b23 Linda nn 4cd7d4 2015-02-08 2015-02-08 LAB ORDER Sonya Fraser, 2fba 434e-4 [facility] 21:08:00 21:08:00 r Gaurav GRANT fec-42ec-a l 456-a931cd Linda nn 2a32ba 2015-02-08 2015-02-08 LAB ORDER nullFlavo Bria, f4e3 eb14-2 [facility] 21:08:00 21:08:00 r Gaurav GRANT 05f-49ec-8 l 9h0-2q4975 Linda nn 457045 2945-11-02 2015-02-08 LAB ORDER nullFlavo Bria, 5b8a dfb7-e [facility] 21:08:00 21:08:00 r Gaurav GRANT 323-4c09-9 l 6i1-71qb96 Linda nn d5878x 2015-02-08 2015-02-08 Outpatient Bria Fraser, 183 481 [facility]inic 16:08:00 16:08:00 Gaurav Nolasco MD alWork s 2015-02-05 2015-02-05 Unknown nullFlavo Bria, 9a4423 e0-d [facility] 21:25:00 21:25:00 r Gaurav GRANT 4ea-4ecb-8 l eff-a2bdfa Linda nn 021ea2 2015-02-05 2015-02-05 Unknown nullFlavo Bria, 4498e5 16-c [facility] 21:25:00 21:25:00 r Gaurav GRANT 716-4445-a l 214-559db7 Linda nn 0c33c4 2015-02-05 2015-02-05 Unknown nullFlavo Bria, 7b59d7 bb-9 [facility] 21:25:00 21:25:00 r Gaurav GRANT 304-48ee-9 l bf0-900494 Linda nn cr4658 2015-02-05 2015-02-05 Unknown nullFlavo Bria, 514f25 47-a [facility] 21:25:00 21:25:00 r Gaurav GRANT 492-4ddc-8 l 6w3-w8d98l Linda nn 680ba2 2015-02-05 2015-02-05 Unknown nullFlavo Bria, 6918b5 03-2 [facility] 21:25:00 21:25:00 r Gaurav GRANT p47-5b81-q l 123-2bbdbc Linda nn cc47c3 2015-02-05 2015-02-05 Unknown nullFlavo Bria, 1d97e7 e9-8 [facility] 21:25:00 21:25:00 r Gaurav GRANT i8g-2u2b-b l 6o6-v84511 Linda nn 95feb8 2015-02-05 2015-02-05 Unknown nullFlavo Bria, 5271c5 0f-e [facility] 21:25:00 21:25:00 r Gaurav GRANT 360-4476-a l 1bc-c184fb Linda nn 184676 9932-10-30 2015-02-05 Unknown nullFlavo Bria, 451ee3 8f-3 [facility] 21:25:00 21:25:00 r Gaurav GRANT 49a-4a70-a l 4r9-2v7q72 Linda nn 1701b5 2015-02-05 2015-02-05 Unknown nullFlavo Bria, 92551a 19-6 [facility] 21:25:00 21:25:00 r Gaurav GRANT x5p-7h45-0 l 4r5-o5x1t1 Linda nn 2o333i 2015-02-05 2015-02-05 Unknown nullFlavo Bria, i2658c b3-5 [facility] 21:25:00 21:25:00 r Gaurav GRANT db7-49a6-8 l fe4-95e952 Linda nn 643057 2433-10-30 2015-02-05 Unknown nullFlavo Bria, u42517 37-9 [facility] 21:25:00 21:25:00 r Gaurav GRANT 9df-48f6-a l 601-5f27b5 Linda nn 1c85d3 2015-02-05 2015-02-05 Unknown nullFlavo Bria, 84f2f7 08-3 [facility] 21:25:00 21:25:00 r Gaurav GRANT 1l8-8661-4 l 652-6w475c Linda nn 38dfa8 2015-02-05 2015-02-05 Unknown nullFlavo Bria, eeb4a4 69-2 [facility] 21:25:00 21:25:00 r Gaurav GRANT u87-3ue3-x l 5bf-c41db0 Linda nn pf4313 2015-02-05 2015-02-05 Unknown nullFlavo Bria, e430b7 0b-d [facility] 21:25:00 21:25:00 r Gaurav GRANT ffc-425f-a l db7-88baa9 Linda nn a63f25 2015-02-05 2015-02-05 Unknown nullFlavo Bria, 4498e5 16-c [facility] 21:25:00 21:25:00 r Gaurav GRANT 716-4445-a l 214-559db7 Linda nn 0c33c4 2015-02-05 2015-02-05 Unknown nullFlavo Bria, 514f25 47-a [facility] 21:25:00 21:25:00 r Gaurav GRANT 492-4ddc-8 l 8z7-g0m06m Linda nn 680ba2 2015-02-05 2015-02-05 Unknown nullFlavo Bria, 6918b5 03-2 [facility] 21:25:00 21:25:00 r Gaurav GRANT i79-9b84-b l 123-2bbdbc Linda nn cc47c3 2015-02-05 2015-02-05 Unknown nullFlavo Bria, 7h4968 e0-d [facility] 21:25:00 21:25:00 r Gaurav GRANT 4ea-4ecb-8 l eff-a2bdfa Linda nn 021ea2 2015-02-05 2015-02-05 Unknown nullFlavo Bria, 7b59d7 bb-9 [facility] 21:25:00 21:25:00 r Gaurav GRANT 304-48ee-9 l bf0-251529 Linda nn jq7776 2015-02-05 2015-02-05 Unknown nullFlavo Bria, 1d97e7 e9-8 [facility] 21:25:00 21:25:00 r Gaurav GRANT p4u-2i7l-u l 6b3-a27614 Linda nn 95feb8 2015-02-05 2015-02-05 Unknown nullFlavo Bria, 5271c5 0f-e [facility] 21:25:00 21:25:00 r Gaurav GRANT 360-4476-a l 1bc-c184fb Linda nn 810881 4508-10-30 2015-02-05 Unknown nullFlavo Bria, 451ee3 8f-3 [facility] 21:25:00 21:25:00 r Gaurav GRANT 49a-4a70-a l 7x5-8h9p15 Linda nn 1701b5 2015-02-05 2015-02-05 Unknown nullFlavo Bria, r0463t b3-5 [facility] 21:25:00 21:25:00 r Gaurav GRANT db7-49a6-8 l fe4-98h912 Linda nn 726034 7105-10-30 2015-02-05 Unknown nullFlavo Bria, 21667f 19-6 [facility] 21:25:00 21:25:00 r Gaurav GRANT t5u-9c07-3 l 4q2-m3h6a5 Linda nn 4c553h 2015-02-05 2015-02-05 Unknown nullFlavo Bria, z87474 37-9 [facility] 21:25:00 21:25:00 r Gaurav GRANT 9df-48f6-a l 601-5f27b5 Linda nn 1c85d3 2015-02-05 2015-02-05 Unknown nullFlavo Bria, 84f2f7 08-3 [facility] 21:25:00 21:25:00 r Gaurav GRANT 4c6-2298-8 l 652-6e130t Linda nn 38dfa8 2015-02-05 2015-02-05 Unknown nullFlavo Bria, e430b7 0b-d [facility] 21:25:00 21:25:00 r Gaurav GRANT ffc-425f-a l db7-88baa9 Linda nn a63f25 2015-02-05 2015-02-05 Unknown nullFlavo Bria, eeb4a4 69-2 [facility] 21:25:00 21:25:00 r Gaurav GRANT t91-5al8-c l 5bf-c41db0 Linda nn mr9119 2015-02-05 2015-02-05 Unknown nullFlavo Bria, 5z888b 82-5 [facility] 20:25:00 20:25:00 r Gaurav GRANT j5h-05ep-2 l dd4-2ef3cd Linda nn bfbca7 2015-02-05 2015-02-05 Unknown nullFlavo Bria, 0529a2 47-2 [facility] 20:25:00 20:25:00 r Gaurav GRANT 3i9-5864-0 l 7g2-x05616 Linda nn 2c5dfe 2015-02-05 2015-02-05 Unknown nullFlavo Bria, 8yx235 c4-c [facility] 20:25:00 20:25:00 r Gaurav GRANT aec-40ea-8 l 8e0-720sa4 Linda nn da64f3 2015-02-05 2015-02-05 Unknown nullFlavo Bria, du4143 2a-a [facility] 20:25:00 20:25:00 r Gaurav GARNT j13-19b8-9 l 2fd-a086cd Linda nn 57ab13 2015-02-05 2015-02-05 Unknown nullFlavo Bria, 0529a2 47-2 [facility] 20:25:00 20:25:00 r Gaurav GRANT 0z2-2203-0 l 4c9-h65225 Linda nn 2c5dfe 2015-02-05 2015-02-05 Unknown nullFlavo Bria, 5it422 c4-c [facility] 20:25:00 20:25:00 r Gaurav GRANT aec-40ea-8 l 4g3-282jp3 Linda nn da64f3 2015-02-05 2015-02-05 Unknown nullFlavo Bria, fd0877 2a-a [facility] 20:25:00 20:25:00 r Gaurav GRANT d94-25b4-7 l 2fd-a086cd Linda nn 57ab13 2015-02-05 2015-02-05 Unknown nullFlavo Bria, 2w595g 82-5 [facility] 20:25:00 20:25:00 r Gaurav GRANT z8e-76ky-9 l dd4-2ef3cd Linda nn bfbca7 2015-02-05 2015-02-05 Outpatient [facility], [facility] 15:25:00 15:25:00 Gaurav Nolasco MD alWork s 2015-02-04 2015-02-04 lab order/ nullFlavo Bria, 8b6 4a636-n [facility] 20:23:00 20:23:00 x-ray r Gaurav GRANT 27d-4a6f-a l ae4-5dg997 Linda nn v08040 2015-02-04 2015-02-04 lab order/ nullFlavo Bria, 7e3 0p176-1 [facility] 20:23:00 20:23:00 x-ray r Gaurav GRANT 032-475b-9 l 6ce-muh168 Linda nn 08012d 2015-02-04 2015-02-04 lab order/ nullFlavo Bria, b8b 5j58a-8 [facility] 20:23:00 20:23:00 x-ray r Gaurav GRANT fe6-4444-a l 678-699e08 Linda nn 6f35a0 2015-02-04 2015-02-04 lab order/ nullFlavo Bria, 582 r9823-4 [facility] 20:23:00 20:23:00 x-ray r Gaurav GRANT 0d1-19c8-a l fe9-7e21d7 Linda nn 4acf3f 2015-02-04 2015-02-04 lab order/ nullFlavo Bira, 6b9 0116d-d [facility] 20:23:00 20:23:00 x-ray r Gaurav GRANT 3bb-4d9a-a l 2bb-ff2b3f Linda nn u8167l 2015-02-04 2015-02-04 lab order/ nullFlavo Bria, ccd 1962c-6 [facility] 20:23:00 20:23:00 x-ray r Gaurav GRANT 0d6-129s-v l m45-n16vg7 Linda nn e147de 2015-02-04 2015-02-04 lab order/ nullFlavo Bria, 8a5 25r57-3 [facility] 20:23:00 20:23:00 x-ray r Gaurav GRANT o2j-2ns4-7 l 3k3-87o54a Linda nn d994e5 2015-02-04 2015-02-04 lab order/ nullFlavo Bria, cec 41rl0-e [facility] 20:23:00 20:23:00 x-ray r Gaurav GRANT c42-8088-8 l v95-57f879 Linda nn e873a3 2015-02-04 2015-02-04 lab order/ nullFlavo Bria, c7b w89eo-2 [facility] 20:23:00 20:23:00 x-ray r Gaurav GRANT q5u-7e67-1 l 25c-0038af Linda nn f2b3aa 2015-02-04 2015-02-04 lab order/ nullFlavo Bria, 1d1 wn21y-p [facility] 20:23:00 20:23:00 x-ray r Gaurav GRANT 298-4f0c-a l y8h-n59yj5 Linda nn 49l083 2015-02-04 2015-02-04 lab order/ nullFlavo Bria, 4f7 l4g06-2 [facility] 20:23:00 20:23:00 x-ray r Gaurav GRANT 4s4-73vr-3 l i6n-o6t5e6 Linda nn 9e4e7b 2015-02-04 2015-02-04 lab order/ nullFlavo Bria, cd5 5865a-a [facility] 20:23:00 20:23:00 x-ray r Gaurav GRANT 3cb-4592-b l 9u8-t61yq6 [facility] nn f1b6ad 2015-02-04 2015-02-04 lab order/ nullFlavo Bria, 65e acbcf-8 [facility] 20:23:00 20:23:00 x-ray r Gaurav GRANT 130-4219-a l u18-4g5h31 Linda nn 2f6d3b 2015-02-04 2015-02-04 lab order/ nullFlavo Bria, 50c 42101-1 [facility] 20:23:00 20:23:00 x-ray r Gaurav GRANT 842-4673-a l p1j-m48509 Linda nn 608ee9 2015-02-04 2015-02-04 lab order/ nullFlavo Bria, 7e3 2a621-9 [facility] 20:23:00 20:23:00 x-ray r Gaurav GRANT 032-475b-9 l 6ce-syn754 Linda nn 05363r 2015-02-04 2015-02-04 lab order/ nullFlavo Bria, 582 o9835-2 [facility] 20:23:00 20:23:00 x-ray r Gaurav GRANT 8x4-88w6-q l fe9-7e21d7 Linda nn 4acf3f 2015-02-04 2015-02-04 lab order/ nullFlavo Bria, 6b9 0116d-d [facility] 20:23:00 20:23:00 x-ray r Gaurav GRANT 3bb-4d9a-a l 2bb-ff2b3f Linda nn x9835y 2015-02-04 2015-02-04 lab order/ nullFlavo Bria, 8b6 7h877-z [facility] 20:23:00 20:23:00 x-ray r Gaurav GRANT 27d-4a6f-a l ae4-9nu382 Linda nn f38652 2015-02-04 2015-02-04 lab order/ nullFlavo Bria, b8b 7l18c-3 [facility] 20:23:00 20:23:00 x-ray r Gaurav GRANT fe6-4444-a l 678-699e08 Linda nn 6f35a0 2015-02-04 2015-02-04 lab order/ nullFlavo Bria, ccd 1962c-6 [facility] 20:23:00 20:23:00 x-ray r Gaurav GRANT 3z0-253v-h l z39-b53uk1 Linda nn e147de 2015-02-04 2015-02-04 lab order/ nullFlavo Bria, 8a5 85w70-3 [facility] 20:23:00 20:23:00 x-ray r Gaurav GRANT p8c-2fc9-0 l 3f1-53n55l Linda nn d994e5 2015-02-04 2015-02-04 lab order/ nullFlavo Bria, cec 76jk5-n [facility] 20:23:00 20:23:00 x-ray r Gaurav GRANT z98-6753-0 l x27-40c473 Linda nn e873a3 2015-02-04 2015-02-04 lab order/ nullFlavo Bria, 1d1 xz99x-x [facility] 20:23:00 20:23:00 x-ray r Gaurav GRANT 298-4f0c-a l v3c-p55xi4 Linda nn 77h591 2015-02-04 2015-02-04 lab order/ nullFlavo Bria, c7b a18qc-7 [facility] 20:23:00 20:23:00 x-ray r Gaurav GRANT c3v-8h13-5 l 25c-0038af Linda nn f2b3aa 2015-02-04 2015-02-04 lab order/ nullFlavo Bria, 4f7 j5b34-8 [facility] 20:23:00 20:23:00 x-ray r Gaurav GRANT 2r9-03zi-9 l c2x-p9u1m5 Linda nn 9e4e7b 2015-02-04 2015-02-04 lab order/ nullFlavo rBia, cd5 5865a-a [facility] 20:23:00 20:23:00 x-ray r Gaurav GRANT 3cb-4592-b l 9p9-o06sm6 Linda nn f1b6ad 2015-02-04 2015-02-04 lab order/ nullFlavo Bria, 50c 72699-3 [facility] 20:23:00 20:23:00 x-ray r Gaurav GRANT 842-4673-a l o8g-h69064 Linda nn 608ee9 2015-02-04 2015-02-04 lab order/ nullFlavo Bria, 65e acbcf-8 [facility] 20:23:00 20:23:00 x-ray r Gaurav GRANT 130-4219-a l t51-1x2a45 Linda nn 2f6d3b 2015-02-04 2015-02-04 lab order/ nullFlavo Bria, 684 7z73z-i [facility] 19:23:00 19:23:00 x-ray r Gaurav GRANT 17e-47f4-b l x36-oy981j Linda nn dd68e0 2015-02-04 2015-02-04 lab order/ nullFlavo Bria, a4d ef44v-m [facility] 19:23:00 19:23:00 x-ray r Gaurav GRANT fcb-4f4b-b l 63f-0321d4 [facility] nn cea2ee 2015-02-04 2015-02-04 lab order/ nullFlavo Bria, 6df k77vn-8 [facility] 19:23:00 19:23:00 x-ray r Gaurav GRANT l03-8584-k l 4cd-5f1ca9 Linda nn 9fb13d 2015-02-04 2015-02-04 lab order/ nullFlavo Bria, 1a1 c33ur-6 [facility] 19:23:00 19:23:00 x-ray r Gaurav GRANT 885-40d4-9 l 335-e8f9fc Linda nn 6c2a05 2015-02-04 2015-02-04 lab order/ nullFlavo Bria, a4d yw24t-h [facility] 19:23:00 19:23:00 x-ray r Gaurav GRANT fcb-4f4b-b l 63f-0321d4 Linda nn cea2ee 2015-02-04 2015-02-04 lab order/ nullFlavo Bria, 6df c46ko-7 [facility] 19:23:00 19:23:00 x-ray r Gaurav GRANT v59-4293-p l 4cd-5f1ca9 Linda nn 9fb13d 2015-02-04 2015-02-04 lab order/ nullFlavo Bria, 1a1 k27nh-6 [facility] 19:23:00 19:23:00 x-ray r Gaurav GRANT 885-40d4-9 l 335-e8f9fc Linda nn 6c2a05 2015-02-04 2015-02-04 lab order/ nullFlavo Bria, 684 4l88q-s [facility] 19:23:00 19:23:00 x-ray r Gaurav GRANT 17e-47f4-b l p32-id916u Linda nn dd68e0 2015-02-04 2015-02-04 Outpatient Bria Bria, 183 158 [facility]inic 14:23:00 14:23:00 Gaurav Nolasco MD alWork s 2015-02-03 2015-02-03 release nullFlavo Bria, d89e26 e8-c [facility] 23:01:00 23:01:00 for sx r Gaurav GRANT db0-404e-9 l 2u9-l7f5g7 Linda nn z41100 2015-02-03 2015-02-03 release nullFlavo Bria, w41073 e5-f [facility] 23:01:00 23:01:00 for sx r Gaurav GRANT 0e4-9hoi-8 l be5-b1f5ab Linda nn 12x195 2015-02-03 2015-02-03 release nullFlavo Bria, 1a99fc be-0 [facility] 23:01:00 23:01:00 for sx r Gaurav GRANT 9f2-0244-5 l 04c-9288dc Linda nn 123605 8362-10-28 2015-02-03 release nullFlavo Bria, 0d8a0c 8d-f [facility] 23:01:00 23:01:00 for sx r Gaurav GRANT 5ef-48b5-b l 9j1-qx3198 Linda nn 76c69a 2015-02-03 2015-02-03 release nullFlavo Bria, 33bdd0 a2-b [facility] 23:01:00 23:01:00 for sx r Gaurav GRANT n2r-6v2r-7 l 1e6-4i1a85 Linda nn 7a80e7 2015-02-03 2015-02-03 release nullFlavo Bria, 9909d6 8e-3 [facility] 23:01:00 23:01:00 for sx r Gaurav GRANT 348-4290-8 l 318-84d435 Linda nn 99086a 2015-02-03 2015-02-03 release nullFlavo Bria, 606c1f 8e-a [facility] 23:01:00 23:01:00 for sx r Gaurav GRANT 682-4889-9 l 73d-6324ec Linda nn 154e93 2015-02-03 2015-02-03 release nullFlavo Bria, a87c6f 4f-6 [facility] 23:01:00 23:01:00 for sx r Gaurav GRANT t32-9932-w l q0h-4193u5 Linda nn 53f2aa 2015-02-03 2015-02-03 release nullFlavo Bria, d7deb8 d1-b [facility] 23:01:00 23:01:00 for sx r Gaurav GRANT 4r3-1448-w l 10d-0ca3ef Linda nn 98bcf8 2015-02-03 2015-02-03 release nullFlavo Bria, p93880 fd-9 [facility] 23:01:00 23:01:00 for sx r Gaurav GRANT 319-42e4-9 l ff9-35f09c Linda nn y0319z 2015-02-03 2015-02-03 release nullFlavo Bria, 7e40cd 04-3 [facility] 23:01:00 23:01:00 for sx r Gaurav GRANT 7af-4454-a l p1e-g86o88 Linda nn 230fee 2015-02-03 2015-02-03 release nullFlavo Bria, v61904 2c-f [facility] 23:01:00 23:01:00 for sx r Gaurav GRANT 156-4b63-b l 639-48f8a2 Linda nn 00a2ef 2015-02-03 2015-02-03 release nullFlavo Bria, v8900k 08-c [facility] 23:01:00 23:01:00 for sx r Gaurav GRANT 50a-4fa1-8 l i5q-u40062 Linda nn 4c6f5b 2015-02-03 2015-02-03 release nullFlavo Bria, 38c950 b9-6 [facility] 23:01:00 23:01:00 for sx r Gaurav GRANT 039-46c5-a l 0dd-ac6d1f Linda nn b032d7 2015-02-03 2015-02-03 release nullFlavo Bria, g21402 e5-f [facility] 23:01:00 23:01:00 for sx r Gaurav GRANT 6g6-3acl-4 l be5-b1f5ab Linda nn 18z078 2015-02-03 2015-02-03 release nullFlavo Bria, 0d8a0c 8d-f [facility] 23:01:00 23:01:00 for sx r Gaurav GRANT 5ef-48b5-b l 3u2-ra5403 Linda nn 76c69a 2015-02-03 2015-02-03 release nullFlavo Bria, 33bdd0 a2-b [facility] 23:01:00 23:01:00 for sx r Gaurav GRANT g6r-9n4s-6 l 0p7-3p5i33 Linda nn 7a80e7 2015-02-03 2015-02-03 release nullFlavo Bria, d89e26 e8-c [facility] 23:01:00 23:01:00 for sx r Gaurav GRANT db0-404e-9 l 2p8-m5z3d6 Linda nn w23346 2015-02-03 2015-02-03 release nullFlavo Bria, 1a99fc be-0 [facility] 23:01:00 23:01:00 for sx r Gaurav GRANT 4k6-5910-5 l 04c-9288dc Linda nn 799933 5299-10-28 2015-02-03 release Sonya Fraser, 9909d6 8e-3 [facility] 23:01:00 23:01:00 for sx r Gaurav GRANT 348-4290-8 l 318-14y223 Linda nn 41449c 2015-02-03 2015-02-03 release nullFlavo Bria, 606c1f 8e-a [facility] 23:01:00 23:01:00 for sx r Gaurav GRANT 682-4889-9 l 73d-6324ec Linda nn 154e93 2015-02-03 2015-02-03 release vicFlavo Bria a87c6f 4f-6 [facility] 23:01:00 23:01:00 for sx r Gaurav GRANT a79-9099-o l p3w-6755f4 Linda nn 53f2aa 2015-02-03 2015-02-03 release nullFlavo Bria, x17686 fd-9 [facility] 23:01:00 23:01:00 for sx r Gaurav GRANT 319-42e4-9 l ff9-35f09c Linda nn t2685e 2015-02-03 2015-02-03 release nullFlavo Bria, d7deb8 d1-b [facility] 23:01:00 23:01:00 for sx r Gaurav GRANT 3c8-8835-n l 10d-0ca3ef Linda nn 98bcf8 2015-02-03 2015-02-03 release vicFlavo Bria, 7e40cd 04-3 [facility] 23:01:00 23:01:00 for sx r Gaurav GRANT 7af-4454-a l b9v-s39n21 Linda nn 230fee 2015-02-03 2015-02-03 release vicFlavreji Fraser, u56860 2c-f [facility] 23:01:00 23:01:00 for sx r Gaurav GRANT 156-4b63-b l 639-48f8a2 Linda nn 00a2ef 2015-02-03 2015-02-03 release nullFlavo Bria, 31j835 b9-6 [facility] 23:01:00 23:01:00 for sx r Gaurav GRANT 039-46c5-a l 0dd-ac6d1f Linda nn b032d7 2015-02-03 2015-02-03 release nullFlavo Bria, b9995t 08-c [facility] 23:01:00 23:01:00 for sx r Gaurav GRANT 50a-4fa1-8 l g1f-f52036 Linda nn 4c6f5b 2015-02-03 2015-02-03 release nullFlavo Bria, 89c50a d6-8 [facility] 22:01:00 22:01:00 for sx r Gaurav GRANT 448-4d8e-b l ac0-22ac5e Linda nn u5264k 2015-02-03 2015-02-03 release nullFlavo Bria, c0aa40 bb-2 [facility] 22:01:00 22:01:00 for sx r Gaurav GRANT ce0-4bd8-8 l 6w7-91bu92 Linda nn 995588 4223-10-28 2015-02-03 release nullFlavo Bria, 37afc2 cd-4 [facility] 22:01:00 22:01:00 for sx r Gaurav GRANT 5cb-4266-9 l d4z-a130gl Linda nn fefb36 2015-02-03 2015-02-03 release nullFlavo Bria, 8u8562 48-1 [facility] 22:01:00 22:01:00 for sx r Gaurav GRANT 13b-4715-8 l 253-67p197 Linda nn 299cc9 2015-02-03 2015-02-03 release nullFlavo Bria, c0aa40 bb-2 [facility] 22:01:00 22:01:00 for sx r Gaurav GRANT ce0-4bd8-8 l 7a2-49zs06 Linda nn 733120 9234-10-28 2015-02-03 release nullFlavo Bria, 37afc2 cd-4 [facility] 22:01:00 22:01:00 for sx r Gaurav GRANT 5cb-4266-9 l u8r-s471mm Linda nn fefb36 2015-02-03 2015-02-03 release nullFlavo Bria, 1c8085 48-1 [facility] 22:01:00 22:01:00 for sx r Gaurav GRANT 13b-4715-8 l 253-30p615 Linda nn 299cc9 2015-02-03 2015-02-03 release nullFlavo Bria, 89c50a d6-8 [facility] 22:01:00 22:01:00 for sx r Gaurav GRANT 448-4d8e-b l ac0-22ac5e Linda nn v7127w 2015-02-03 2015-02-03 Outpatient Bria Fraser, 183 077 [facility]inic 17:01:00 17:01:00 Gaurav Nolasco MD alWork s 2015-01-04 2015-01-04 [facility] nullFlavo [facility], 33fd9 1c6-9 [facility] 22:30:00 22:30:00 r Gaurav GRANT b34-927v-k l fa9-f8a32b Linda nn 9f2e82 2015-01-04 2015-01-04 [facility] nullFlavo Bria, 54cef 5fe-7 [facility] 22:30:00 22:30:00 r Gaurav GRANT 740-43f9-a l 3s1-i0rlve Linda nn ef3bbf 2015-01-04 2015-01-04 [facility] nullFlavo Bria, f5807 17e-b [facility] 22:30:00 22:30:00 r Gaurav GRANT f6v-2yk4-4 l bbf-8b9ee8 Linda nn ebbbe3 2015-01-04 2015-01-04 [facility] nullFlavo [facility]ria, f0ef7 206-7 [facility] 22:30:00 22:30:00 r Gaurav GRANT 269-46fd-9 l 951-89544j Linda nn 402738 5142-09-28 2015-01-04 [facility] nullFlavo [facility]ria, 92d98 208-9 [facility] 22:30:00 22:30:00 r Gaurav GRANT 904-4259-9 l e1p-17eue4 Linda nn unm924 2015-01-04 2015-01-04 [facility] nullFlavo Bria, bdbc1 e80-c [facility] 22:30:00 22:30:00 r Gaurav GRANT r35-90ok-5 l 3h8-71o47w Linda nn bc4f46 2015-01-04 2015-01-04 [facility] nullFlavo Bria, 22d92 5d4-e [facility] 22:30:00 22:30:00 r Gaurav GRANT h0n-226a-7 l 70e-4d3d30 [facility] o2f653 2015-01-04 2015-01-04 [facility] nullFlavo Bria, 33fd9 1c6-9 [facility] 22:30:00 22:30:00 r Gaurav GRATN f16-671w-l l fa9-f8a32b [facility] nn 9f2e82 2015-01-04 2015-01-04 [facility] nullFlavo [facility], f5807 17e-b [facility] 22:30:00 22:30:00 r Gaurav GRANT x5t-9pl8-3 l bbf-8b9ee8 [facility] ebbbe3 2015-01-04 2015-01-04 [facility] nullFlavo B[facility], 54cef 5fe-7 [facility] 22:30:00 22:30:00 r Gaurav GRANT 740-43f9-a l 0z3-p5rugj [facility] ef3bbf 2015-01-04 2015-01-04 [facility] nullFlavo Bria, f0ef7 206-7 [facility] 22:30:00 22:30:00 r Gaurav GRANT 269-46fd-9 l 951-42278q [facility] 114993 7702-09-28 2015-01-04 [facility] nullFlavo Bria, 92d98 208-9 [facility] 22:30:00 22:30:00 r Gaurav GRANT 904-4259-9 l m7r-13lll7 [facility] ajq643 2015-01-04 2015-01-04 [facility] nullFlavo Bria, 22d92 5d4-e [facility] 22:30:00 22:30:00 r Gaurav GRANT m4y-209z-0 l 70e-4d3d30 [facility] u7z878 2015-01-04 2015-01-04 [facility] nullFlavo Bria, bdbc1 e80-c [facility] 22:30:00 22:30:00 r Gaurav GRANT z67-16qc-9 l 2r7-01g35c [facility] bc4f46 2015-01-04 2015-01-04 [facility] nullFlavo Bria, 75b22 c7b-b [facility] 21:30:00 21:30:00 r Gaurav GRANT dc8-42e9-b l 9r3-57w967 [facility] 795a90 2015-01-04 2015-01-04 [facility] nullFlavo Bria, cfe5b 85b-6 [facility] 21:30:00 21:30:00 r Gaurav GRANT 76a-4458-a l 67a-7uq546 [facility] 4ff2e1 2015-01-04 2015-01-04 [facility] nullFlavo Bria, 06375 914-1 [facility] 21:30:00 21:30:00 r Gaurav GRANT z79-70na-x l 098-6f1b8d [facility] b9ab77 2015-01-04 2015-01-04 [facility] nullFlavo Bria, 67a75 2b6-d [facility] 21:30:00 21:30:00 r Gaurav GRANT bd6-4d9e-8 l 997-4522a5 [facility] 02abea 2015-01-04 2015-01-04 [facility] nullFlavo Bria, cfe5b 85b-6 [facility] 21:30:00 21:30:00 r Gaurav GRANT 76a-4458-a l 67a-3bz646 [facility] 4ff2e1 2015-01-04 2015-01-04 [facility] nullFlavo Bria, 73917 914-1 [facility] 21:30:00 21:30:00 r Gaurav GRANT m64-96iy-j l 098-6f1b8d [facility] b9ab77 2015-01-04 2015-01-04 [facility] nullFlavo Bria, 67a75 2b6-d [facility] 21:30:00 21:30:00 r Gaurav GRANT bd6-4d9e-8 l 997-4522a5 [facility] 02abea 2015-01-04 2015-01-04 [facility] nullFlavo Bria, 75b22 c7b-b [facility] 21:30:00 21:30:00 r Gaurav GRANT dc8-42e9-b l 8j1-51v058 [facility] 795a90 2015-01-04 2015-01-04 Outpatient Bria Fraser, 180 004 eClinic 16:30:00 16:30:00 Gaurav Nolasco MD alWork s 2014-12-24 2014-12-24 Needs nullFlavo Bria, 3bda8a 55-a [facility] 21:30:00 21:30:00 Sleeping r Gaurav GRANT 287-4650-8 l meds 82d-8bd2ed Linda nn pu4050 2014-12-24 2014-12-24 Needs nullFlavo Bria, 318b64 fc-4 [facility] 21:30:00 21:30:00 Sleeping r Gaurav GRANT 413-42f2-b l meds 475-n3b010 Linda nn j3i801 2014-12-24 2014-12-24 Needs nullFlavo Bria, 5r3895 81-b [facility] 21:30:00 21:30:00 Sleeping r Gaurav GRANT d48-3nj2-a l meds g54-4r2a0o Linda nn 5749c9 2014-12-24 2014-12-24 Needs nullFlavo Bria, e797e0 17-7 [facility] 21:30:00 21:30:00 Sleeping r Gaurav GRANT m78-5890-4 l meds afc-51dea0 Linda nn opp140 2014-12-24 2014-12-24 Needs nullFlavo Bria, wmy754 9d-e [facility] 21:30:00 21:30:00 Sleeping r Gaurav GRANT aa1-4467-b l meds 280-cafcf0 [facility] nn 3c1f57 2014-12-24 2014-12-24 Needs nullFlavo Bria, 544772 e7-4 [facility] 21:30:00 21:30:00 Sleeping r Gaurav GRANT 965-4d93-a l meds 00c-a1af2c Linda nn e5b17d 2014-12-24 2014-12-24 Needs nullFlavo Bria, 792eeb 6f-b [facility] 21:30:00 21:30:00 Sleeping r Gaurav GRANT 01f-468c-a l meds d68-493s1y Linda nn 34ae6c 2014-12-24 2014-12-24 Needs nullFlavo Bria, 3bda8a 55-a [facility] 21:30:00 21:30:00 Sleeping r Gaurav GRANT 287-4650-8 l meds 82d-8bd2ed Linda nn cl5973 2014-12-24 2014-12-24 Needs nullFlavo Bria, 4s1725 81-b [facility] 21:30:00 21:30:00 Sleeping usama Nolasco MD p89-7uz7-v l meds v80-0a5t0p Linda nn 5749c9 2014-12-24 2014-12-24 Needs nullFlavo Bria, 318b64 fc-4 [facility] 21:30:00 21:30:00 Sleeping r Gaurav GRANT 413-42f2-b l meds 475-x8g705 Linda nn j6q642 2014-12-24 2014-12-24 Needs nullFlavo Bria, e797e0 17-7 [facility] 21:30:00 21:30:00 Sleeping r Gaurav GRANT o24-0240-4 l meds afc-51dea0 Linda nn kvc017 2014-12-24 2014-12-24 Needs nullFlavo Bria, uqf467 9d-e [facility] 21:30:00 21:30:00 Sleeping r Gaurav GRANT aa1-4467-b l meds 280-cafcf0 Linda nn 3c1f57 2014-12-24 2014-12-24 Needs vicFlavo Bria, 792eeb 6f-b [facility] 21:30:00 21:30:00 Sleeping usama Nolasco MD 01f-468c-a l meds y09-751z9w Linda nn 34ae6c 2014-12-24 2014-12-24 Needs nullFlavo Bria, 528197 e7-4 [facility] 21:30:00 21:30:00 Sleeping usama Nolasco MD 965-4d93-a l meds 00c-a1af2c Linda nn e5b17d 2014-12-24 2014-12-24 Needs nullFlavo Bria, 94116e af-e [facility] 20:30:00 20:30:00 Sleeping usama Nolasco MD ffc-47c8-8 l meds 12c-b9d17f Linda nn aeee78 2014-12-24 2014-12-24 Needs nullFlavo Bria, e953f2 9f-8 [facility] 20:30:00 20:30:00 Sleeping r Gaurav GRANT 1s1-42w5-5 l meds 1j7-6y5hq1 [facility] nn 2e1469 2014-12-24 2014-12-24 Needs vicFlavo Bria, u01268 e5-b [facility] 20:30:00 20:30:00 Sleeping r Gaurav GRANT aeb-4b2d-9 l meds 6l4-m774v0 Linda nn 029b23 2014-12-24 2014-12-24 Needs vicFlavo Bria, c8c05a 94-7 [facility] 20:30:00 20:30:00 Sleeping r Gaurav GRANT q12-4669-9 l meds 141-9f53b9 Linda nn k2128r 2014-12-24 2014-12-24 Needs Sonya Fraser, e953f2 9f-8 [facility] 20:30:00 20:30:00 Sleeping r Gaurav GRANT 7v3-99i9-7 l meds 8n9-7x3tg0 Linda nn 4c6708 2014-12-24 2014-12-24 Needs vicFlavo Bria, a22849 e5-b [facility] 20:30:00 20:30:00 Sleeping r Gaurav carbajal-4b2d-9 l meds 9l3-e547w8 Linda nn 029b23 2014-12-24 2014-12-24 Needs Sonya Fraser, c8c05a 94-7 [facility] 20:30:00 20:30:00 Sleeping r Gaurav GRANT c73-3434-8 l meds 141-9f53b9 Linda nn u2038u 2014-12-24 2014-12-24 Needs Sonya Fraser, 02429c af-e [facility] 20:30:00 20:30:00 Sleeping r Gaurav GRANT ffc-47c8-8 l meds 12c-b9d17f Linda nn aeee78 2014-12-24 2014-12-24 Outpatient BriaBria collazo, 178 107 [facility]inic 15:30:00 15:30:00 Gaurav Nolasco MD alWork s 2014-11-17 2014-11-17 refill Sonya Fraser, 6d0036 e4-4 [facility] 16:01:00 16:01:00 r Gaurav GRANT z1c-4h13-5 l 371-472abd Linda nn 887495 0311-08-11 2014-11-17 refill nullFlavo Bria, e7l143 dd-1 [facility] 16:01:00 16:01:00 r Gaurav GRANT fd8-457d-9 l dab-434a13 Linda nn 703f0b 2014-11-17 2014-11-17 refill nullFlavo Bria, 1bbbbc 0b-2 [facility] 16:01:00 16:01:00 r Gaurav GRANT galindo-47b8-9 l df1-6eede1 Linda nn 224eed 2014-11-17 2014-11-17 refill nullFlavo Bria, d8efe3 79-3 [facility] 16:01:00 16:01:00 r Gaurav GRANT 3m4-1g1e-d l 5h2-a17491 [facility] nn 64924h 2014-11-17 2014-11-17 refill nullFlavo Bria, 51k878 be-9 [facility] 16:01:00 16:01:00 r Gaurav GRANT eec-4aa0-8 l 7dd-404440 [facility] nn dc91dd 2014-11-17 2014-11-17 refill nullFlavo Bria, d81ea3 2a-1 [facility] 16:01:00 16:01:00 r Gaurav GRANT 7cc-496d-9 l 70b-5v0107 [facility] nn 35fef5 2014-11-17 2014-11-17 refill nullFlavo Bria, a5f7bb 76-e [facility] 16:01:00 16:01:00 r Gaurav GRANT 651-4d16-9 l cc6-c7b4f1 [facility] nn c244a4 2014-11-17 2014-11-17 refill nullFlavo Bria, 05427q 68-7 [facility] 16:01:00 16:01:00 r Gaurav GRANT s9g-5ddn-1 l o00-7yrz8v [facility] nn l2a521 2014-11-17 2014-11-17 refill nullFlavo Bria, 2325ae c9-c [facility] 16:01:00 16:01:00 r Gaurav GRANT 36c-48fa-8 l ac5-z16408 [facility] nn f2d2ad 2014-11-17 2014-11-17 refill nullFlavo Bria, 69a53f 9f-7 [facility] 16:01:00 16:01:00 r Gaurav GRANT 4q0-55e6-h l bee-5fefeb Linda nn e56e65 2014-11-17 2014-11-17 refill nullFlavo Bria, i01769 df-f [facility] 16:01:00 16:01:00 r Gaurav GRANT 683-4fe4-9 l 784-6047ae Linda nn 0i4916 2014-11-17 2014-11-17 refill nullFlavo Bria, 8r2453 ed-3 [facility] 16:01:00 16:01:00 r Gaurav GRANT 8h3-6737-9 l z0n-27xm65 [place] nn 2b8fc7 2014-11-17 2014-11-17 refill nullFlavo Bria, [id number] b0-8 [facility] 16:01:00 16:01:00 r Gaurav GRANT 682-41f0-8 l s9b-zapy4x Linda nn 33dded 2014-11-17 2014-11-17 refill nullFlavo Bria, 3a47ad 53-2 [facility] 16:01:00 16:01:00 r Gaurav GRANT m4w-7935-n l q2u-rt13j2 Linda nn d7edfa 2014-11-17 2014-11-17 refill nullFlavo Bria, p8l597 dd-1 [facility] 16:01:00 16:01:00 r Gaurav GRANT fd8-457d-9 l dab-434a13 Linda nn 703f0b 2014-11-17 2014-11-17 refill nullFlavo Bria, d8efe3 79-3 [facility] 16:01:00 16:01:00 r Gaurav GRANT 9k1-2w5o-m l 8w5-d40415 Linda nn 25515i 2014-11-17 2014-11-17 refill nullFlavo Bria, 22i599 be-9 [facility] 16:01:00 16:01:00 r Gaurav GRANT eec-4aa0-8 l 7dd-098858 Linda nn dc91dd 2014-11-17 2014-11-17 refill nullFlavo Bria, 4a6557 e4-4 [facility] 16:01:00 16:01:00 r Gaurav GRANT r2u-2f60-5 l 371-472abd Linda nn 045381 4285-08-11 2014-11-17 refill nullFlavo Bria, 1bbbbc 0b-2 [facility] 16:01:00 16:01:00 r Gaurav GRANT galindo-47b8-9 l df1-6eede1 Linda nn 224eed 2014-11-17 2014-11-17 refill nullFlavo Bria, d81ea3 2a-1 [facility] 16:01:00 16:01:00 r Gaurav GRANT 7cc-496d-9 l 70b-0o4800 Linda nn 35fef5 2014-11-17 2014-11-17 refill nullFlavo Bria, a5f7bb 76-e [facility] 16:01:00 16:01:00 r Gaurav GRANT 651-4d16-9 l cc6-c7b4f1 Linda nn c244a4 2014-11-17 2014-11-17 refill nullFlavo Bria, 28691b 68-7 [facility] 16:01:00 16:01:00 r Gaurav GRANT w0v-9prj-9 l c54-6wpz0h Linda nn l9f394 2014-11-17 2014-11-17 refill nullFlavo Bria, 69a53f 9f-7 [facility] 16:01:00 16:01:00 r Gaurav GRANT 4y2-34j4-a l bee-5fefeb Linda nn e56e65 2014-11-17 2014-11-17 refill nullFlavo Bria, 2325ae c9-c [facility] 16:01:00 16:01:00 r Gaurav GRANT 36c-48fa-8 l ac5-k65616 Linda nn f2d2ad 2014-11-17 2014-11-17 refill nullFlavo Bria, c70553 df-f [facility] 16:01:00 16:01:00 r Gaurav GRANT 683-4fe4-9 l 784-6047ae Linda nn 6h1720 2014-11-17 2014-11-17 refill nullFlavo Bria, 1c1225 ed-3 [facility] 16:01:00 16:01:00 r Gaurav GRANT 3s3-8913-1 l v4y-03xg45 Linda nn 2b8fc7 2014-11-17 2014-11-17 refill nullNicko Bria, 3a47ad 53-2 [facility] 16:01:00 16:01:00 r Gaurav GRANT x7k-4683-y l m5p-ci50n1 Linda nn d7edfa 2014-11-17 2014-11-17 refill nullNicko Bria, x81991 b0-8 [facility] 16:01:00 16:01:00 r Gaurav GRANT 682-41f0-8 l f8l-cqpi5i Linda nn 33dded 2014-11-17 2014-11-17 refill Shadeo Bira, dca4eb 9d-f [facility] 15:01:00 15:01:00 r Gaurav GRANT j23-48el-q l fea-51b2ad Linda nn 7r633i 2014-11-17 2014-11-17 refill nullNicko Bria, b73d8d b9-9 [facility] 15:01:00 15:01:00 r Gaurav GRANT aff-4a63-8 l 93a-cbe3a7 Linda nn d2a2b8 2014-11-17 2014-11-17 refill nullNicko Bria, d745a8 42-6 [facility] 15:01:00 15:01:00 r Gaurav GRANT p3w-3994-p l fcc-9e63b8 Linda nn 0f06f9 2014-11-17 2014-11-17 refill nullNicko Bria, 169e83 fa-1 [facility] 15:01:00 15:01:00 r Gaurav GRANT 1af-42b8-b l 783-01ea95 Linda nn 9d9f5a 2014-11-17 2014-11-17 refill nullNicko Bria, f2n834 02-c [facility] 15:01:00 15:01:00 r Gaurav GRANT 57e-441e-a l t81-y833j9 Linda nn f09a14 2014-11-17 2014-11-17 refill nullNicko Bria, 96495v 61-6 [facility] 15:01:00 15:01:00 r Gaurav GRANT 5cc-458f-b l fb5-fb76a1 Linda nn 0l685q 2014-11-17 2014-11-17 refill nullFlavo Bria, b73d8d b9-9 [facility] 15:01:00 15:01:00 r Gaurav GRANT aff-4a63-8 l 93a-cbe3a7 Linda nn d2a2b8 2014-11-17 2014-11-17 refill nullFlavo Bria, dca4eb 9d-f [facility] 15:01:00 15:01:00 r Gaurav GRANT k96-84hy-q l fea-51b2ad Linda nn 8j385w 2014-11-17 2014-11-17 refill nullFlavo Bria, 169e83 fa-1 [facility] 15:01:00 15:01:00 r Gaurav GRANT 1af-42b8-b l 783-01ea95 Linda nn 9d9f5a 2014-11-17 2014-11-17 refill nullFlavo Bria, g6d993 02-c [facility] 15:01:00 15:01:00 r Gaurav GRANT 57e-441e-a l x66-u995r2 Linda nn f09a14 2014-11-17 2014-11-17 refill nullFlavo Bria, 46253d 61-6 [facility] 15:01:00 15:01:00 r Gaurav GRANT 5cc-458f-b l fb5-fb76a1 Linda nn 6q874d 2014-11-17 2014-11-17 refill nullFlavo Bria, d745a8 42-6 [facility] 15:01:00 15:01:00 r Gaurav GRANT h0s-2259-r l fcc-9e63b8 Linda nn 0f06f9 2014-11-17 2014-11-17 Outpatient [facility], 176 012 [facility] 10:01:00 10:01:00 Gaurav Nolasco MD alWork s 2014-11-05 2014-11-05 4 Months nullFlavo Bria, e4aa3 177-b [facility] 14:30:00 14:30:00 (Reason: r Gaurav GRANT p69-2g86-4 l Thyroid dc2-6cf4a9 Linda nn and 03d96a Triglyceri anupama ) 2014-11-05 2014-11-05 4 Months nullFlavo Bria, be23a 0e2-b [facility] 14:30:00 14:30:00 (Reason: usama Nolasco MD 3o9-956s-6 l Thyroid 073-380af9 Linda nn and b087e4 Triglyceri anupama ) 2014-11-05 2014-11-05 4 Months nullFlavo Bria, 91a5d 25f-2 [facility] 14:30:00 14:30:00 (Reason: usama Nolasco MD a23-7v1d-8 l Thyroid arnol-6uo575 Linda nn and 42708p Triglyceri anupama ) 2014-11-05 2014-11-05 4 Months nullFlavo Bria, aa958 998-f [facility] 14:30:00 14:30:00 (Reason: usama Nolasco MD 414-4492-a l Thyroid a79-40195p Linda nn and 6rr943 Triglyceri anupama ) 2014-11-05 2014-11-05 4 Months nullFlavo Bria, 20a70 fb2-d [facility] 14:30:00 14:30:00 (Reason: usama Nolasco MD 35f-4504-b l Thyroid cac-c36e98 Linda nn and 522764 Triglyceri anupama ) 2014-11-05 2014-11-05 4 Months nullFlavo Bria, 226da feb-4 [facility] 14:30:00 14:30:00 (Reason: usama Nolasco MD 2d5-7673-l l Thyroid y5f-ufm06n Linda nn and 4c64ed Triglyceri anupama ) 2014-11-05 2014-11-05 4 Months nullFlavo Bria, 1625b 686-9 [facility] 14:30:00 14:30:00 (Reason: usama Nolasco MD p7m-1r9t-x l Thyroid ff8-n20886 Linda nn and 2e3710 Triglyceri anupama ) 2014-11-05 2014-11-05 4 Months nullFlavo Bria, ec187 be3-f [facility] 14:30:00 14:30:00 (Reason: usama Nolasco MD 4w9-84wo-y l Thyroid 47c-99390c Linda nn and o29423 Triglyceri anupama ) 2014-11-05 2014-11-05 4 Months nullFlavo Bria, e4aa3 177-b [facility] 14:30:00 14:30:00 (Reason: usama Nolasco MD q42-2u74-1 l Thyroid dc2-6cf4a9 Linda nn and 03d96a Triglyceri anupama ) 2014-11-05 2014-11-05 4 Months nullFlavreji Fraser, be23a 0e2-b [facility] 14:30:00 14:30:00 (Reason: usama Nolasco MD 7u8-736g-8 l Thyroid 073-380af9 Linda nn and b087e4 Triglyceri anupama ) 2014-11-05 2014-11-05 4 Months nullFlavreji Fraser, aa958 998-f [facility] 14:30:00 14:30:00 (Reason: usama Nolasco MD 414-4492-a l Thyroid i73-72213o Linda nn and 2xq412 Triglyceri anupama ) 2014-11-05 2014-11-05 4 Months nullFlavreji Fraser, 91a5d 25f-2 [facility] 14:30:00 14:30:00 (Reason: usama Nolasco MD y92-9b6i-0 l Thyroid arnol-7oa695 Linda nn and 45773m Triglyceri anupama ) 2014-11-05 2014-11-05 4 Months nullFlavreji Fraser, 20a70 fb2-d [facility] 14:30:00 14:30:00 (Reason: usama Nolasco MD 35f-4504-b l Thyroid cac-c36e98 Linda nn and 144053 Triglyceri anupama ) 2014-11-05 2014-11-05 4 Months nullFlavreji Fraser, 226da feb-4 [facility] 14:30:00 14:30:00 (Reason: usama Nolasco MD 7z6-4187-n l Thyroid f5o-bat39s Linda nn and 4c64ed Triglyceri anupama ) 2014-11-05 2014-11-05 4 Months nullFlavreji Fraser, ec187 be3-f [facility] 14:30:00 14:30:00 (Reason: usama Nolasco MD 0e4-84vt-u l Thyroid 47c-61445p Linda nn and v94110 Triglyceri anupama ) 2014-11-05 2014-11-05 4 Months nullFlavo Bria, 1625b 686-9 [facility] 14:30:00 14:30:00 (Reason: usama Nolasco MD n6s-7p0q-u l Thyroid ff8-l34316 Linda nn and 2l2424 Triglyceri anupama ) 2014-11-05 2014-11-05 4 Months nullFlavo Bria, 658f2 829-5 [facility] 13:30:00 13:30:00 (Reason: usama Nolasco MD 08b-498a-b l Thyroid cbd-0ff2de Linda nn and 481e69 Triglyceri anupama ) 2014-11-05 2014-11-05 4 Months nullFlavo Bria, 26929 8aa-0 [facility] 13:30:00 13:30:00 (Reason: usama Nolasco MD 175-4190-9 l Thyroid o2w-ah57h7 Linda nn and a8c7a7 Triglyceri anupama ) 2014-11-05 2014-11-05 4 Months nullFlavo Bria, f6cd5 58b-7 [facility] 13:30:00 13:30:00 (Reason: usama Nolasco MD 31c-41fd-b l Thyroid 74e-1e3e37 Linda nn and c49bf5 Triglyceri anupama ) 2014-11-05 2014-11-05 4 Months nullFlavo Bria, 33e19 2a0-c [facility] 13:30:00 13:30:00 (Reason: usama Nolasco MD 826-473b-9 l Thyroid 0t7-5kmp1g Linda nn and 6e5c44 Triglyceri anupama ) 2014-11-05 2014-11-05 4 Months nullFlavo Bria, 896c4 c93-9 [facility] 13:30:00 13:30:00 (Reason: usama Nolasco MD 6af-4b8b-9 l Thyroid 915-bf8abc Linda nn and 11466w Triglyceri anupama ) 2014-11-05 2014-11-05 4 Months nullFlavo Bria, 8a0de ca5-4 [facility] 13:30:00 13:30:00 (Reason: usama Nolasco MD 2s3-50gh-u l Thyroid y4h-s6kfi6 Linda nn and aaf21a Triglyceri anupama ) 2014-11-05 2014-11-05 4 Months nullFlavo Bria, 55572 8aa-0 [facility] 13:30:00 13:30:00 (Reason: usama Nolasco MD 175-4190-9 l Thyroid b0o-pz85d4 Linda nn and a8c7a7 Triglyceri anupama ) 2014-11-05 2014-11-05 4 Months nullFlavo Bria, 658f2 829-5 [facility] 13:30:00 13:30:00 (Reason: usama Nolasco MD 08b-498a-b l Thyroid cbd-0ff2de Linda nn and 481e69 Triglyceri anupama ) 2014-11-05 2014-11-05 4 Months nullFlavo Bria, 33e19 2a0-c [facility] 13:30:00 13:30:00 (Reason: usama Nolasco MD 826-473b-9 l Thyroid 7z9-0glb2m Linda nn and 6e5c44 Triglyceri anupama ) 2014-11-05 2014-11-05 4 Months nullFlavo Bria, 896c4 c93-9 [facility] 13:30:00 13:30:00 (Reason: usama Nolasco MD 6af-4b8b-9 l Thyroid 915-bf8abc Linda nn and 67460u Triglyceri anupama ) 2014-11-05 2014-11-05 4 Months nullFlavo Bria, 8a0de ca5-4 [facility] 13:30:00 13:30:00 (Reason: usama Nolasco MD 8j9-52pe-e l Thyroid b8m-a6der4 Linda nn and aaf21a Triglyceri anupama ) 2014-11-05 2014-11-05 4 Months nullFlavo Bria, f6cd5 58b-7 [facility] 13:30:00 13:30:00 (Reason: usama Nolasco MD 31c-41fd-b l Thyroid 74e-1e3e37 Linda nn and c49bf5 Triglyceri anupama ) 2014-11-05 2014-11-05 Outpatient Bria Fraser, [id number] [facility] 08:30:00 08:30:00 Gaurav Nolasco MD alWork s 2014-11-05 2014-11-05 Outpatient Bria Fraser, [id number] [facility] 08:30:00 08:30:00 Gaurav Nolasco MD alWork s 2014-07-06 2014-07-06 2 Weeks nullFlavo Bria, 46a97c b1-2 [facility] 15:15:00 15:15:00 (Reason: usama Nolasco MD z4p-3017-q l Bronchitis o4r-7hyj7o [facility] ) 76e3fa 2014-07-06 2014-07-06 2 Weeks nullFlavo Bria, 78b94e 5d-3 [facility] 15:15:00 15:15:00 (Reason: usama Nolasco MD x1b-7944-0 l Bronchitis 3ac-8x862v [facility] ) 88625h 2014-07-06 2014-07-06 2 Weeks nullFlavo Bria, m26293 3e-c [facility] 15:15:00 15:15:00 (Reason: usama Nolasco MD fb3-433f-a l Bronchitis 33f-e27aca [facility] ) yr173g 2014-07-06 2014-07-06 2 Weeks nullFlavo Bria, 6e8cf6 25-9 [facility] 15:15:00 15:15:00 (Reason: usama Nolasco MD 3c9-29l1-h l Bronchitis 9i0-8887im [facility] ) 4r9220 2014-07-06 2014-07-06 2 Weeks nullFlavo Bria, 6tw707 9b-6 [facility] 15:15:00 15:15:00 (Reason: usama Nolasco MD 865-4ac3-8 l Bronchitis d1v-8h0385 [facility] ) c1ca66 2014-07-06 2014-07-06 2 Weeks nullFlavo Bria, 2845f6 21-2 [facility] 15:15:00 15:15:00 (Reason: usama Nolasco MD 9f6-582k-2 l Bronchitis aa7-rtm040 [facility] ) a28dcd 2014-07-06 2014-07-06 2 Weeks nullFlavo Bria, 02e0a9 48-2 [facility] 15:15:00 15:15:00 (Reason: usama Nolasco MD dca-4966-9 l Bronchitis 02e-28b9ef [facility] ) d50a77 2014-07-06 2014-07-06 2 Weeks nullFlavo Bria, 53dcba 0c-0 [facility] 15:15:00 15:15:00 (Reason: usama Nolasco MD 42f-4e35-b l Bronchitis 5x2-hy18zn [facility] ) f301c7 2014-07-06 2014-07-06 2 Weeks nullFlavo Bria, 07a74f e4-1 [facility] 15:15:00 15:15:00 (Reason: usama Nolasco MD 839-4154-a l Bronchitis fa0-h4y373 [facility] ) aa72e5 2014-07-06 2014-07-06 2 Weeks nullFlavo Bria, 124a2f 06-e [facility] 15:15:00 15:15:00 (Reason: usama Nolasco MD 6x1-9634-x l Bronchitis 7r2-981fo0 [facility] ) 4zb304 2014-07-06 2014-07-06 2 Weeks nullFlavo Bria, c895af 6a-c [facility] 15:15:00 15:15:00 (Reason: usama Nolasco MD 0y9-8oqz-7 l Bronchitis 1eb-592e06 [facility] ) ymj016 2014-07-06 2014-07-06 2 Weeks nullFlavo Bria, 26a2f1 38-b [facility] 15:15:00 15:15:00 (Reason: usama Nolasco MD r54-7j60-1 l Bronchitis 0g0-16q1rm [facility] ) e622f5 2014-07-06 2014-07-06 2 Weeks nullFlavo Bria, b151cc 0c-d [facility] 15:15:00 15:15:00 (Reason: usama Nolasco MD 7df-4131-9 l Bronchitis z74-2635v2 [facility] ) 03z249 2014-07-06 2014-07-06 2 Weeks nullFlavo Bria, e9c59c 64-2 [facility] 15:15:00 15:15:00 (Reason: usama Nolasco MD 87f-485b-8 l Bronchitis 37c-0c78de [facility] ) 432963 4797-03-30 2014-07-06 2 Weeks nullFlavo Bria, 78b94e 5d-3 [facility] 15:15:00 15:15:00 (Reason: usama Nolasco MD s1s-5783-3 l Bronchitis 3ac-0x053g [facility] ) 63699k 2014-07-06 2014-07-06 2 Weeks nullFlavo Bria, 6e8cf6 25-9 [facility] 15:15:00 15:15:00 (Reason: usama Nolasco MD 7v8-03r6-v l Bronchitis 6l4-3652th [facility] ) 4o5023 2014-07-06 2014-07-06 2 Weeks nullFlavo Bria, 8tf367 9b-6 [facility] 15:15:00 15:15:00 (Reason: usama Nolasco MD 865-4ac3-8 l Bronchitis m0w-1u3295 [facility] ) c1ca66 2014-07-06 2014-07-06 2 Weeks nullFlavo Bria, 46a97c b1-2 [facility] 15:15:00 15:15:00 (Reason: usama Nolasco MD k4z-3122-w l Bronchitis q1j-5hgh9l [facility] ) 76e3fa 2014-07-06 2014-07-06 2 Weeks nullFlavo Bria, t96943 3e-c [facility] 15:15:00 15:15:00 (Reason: usama Nolasco MD fb3-433f-a l Bronchitis 33f-e27aca [facility] ) bd810z 2014-07-06 2014-07-06 2 Weeks nullFlavo Bria, 2845f6 21-2 [facility] 15:15:00 15:15:00 (Reason: usama Nolasco MD 9c6-168q-3 l Bronchitis aa7-xpa862 [facility] ) a28dcd 2014-07-06 2014-07-06 2 Weeks nullFlavo Bria, 02e0a9 48-2 [facility] 15:15:00 15:15:00 (Reason: usama Nolasco MD dca-4966-9 l Bronchitis 02e-28b9ef [facility] ) d50a77 2014-07-06 2014-07-06 2 Weeks nullFlavo Bria, 53dcba 0c-0 [facility] 15:15:00 15:15:00 (Reason: usama Nolasco MD 42f-4e35-b l Bronchitis 9m2-pv84qx [facility] ) f301c7 2014-07-06 2014-07-06 2 Weeks nullFlavo Bria, 124a2f 06-e [facility] 15:15:00 15:15:00 (Reason: usama Nolasco MD 4g1-4582-q l Bronchitis 5x7-455yv3 [facility] ) 9bp183 2014-07-06 2014-07-06 2 Weeks nullFlavo Bria, 07a74f e4-1 [facility] 15:15:00 15:15:00 (Reason: usama Nolasco MD 839-4154-a l Bronchitis fa0-n4y875 [facility] ) aa72e5 2014-07-06 2014-07-06 2 Weeks nullFlavo Bria, c895af 6a-c [facility] 15:15:00 15:15:00 (Reason: usama Nolasco MD 6x0-9zjd-0 l Bronchitis 1eb-592e06 [facility] ) pim779 2014-07-06 2014-07-06 2 Weeks nullFlavo Bria, 26a2f1 38-b [facility] 15:15:00 15:15:00 (Reason: usama Nolasco MD t01-0w18-3 l [facility]ch[facility] 8k7-50e5mb [facility] ) e622f5 2014-07-06 2014-07-06 2 Weeks nullFlavo Bria, e9c59c 64-2 [facility] 15:15:00 15:15:00 (Reason: usama Nolasco MD 87f-485b-8 l Bronchitis 37c-0c78de [facility] ) 553522 8686-03-30 2014-07-06 2 Weeks nullFlavo Bria, b151cc 0c-d [facility] 15:15:00 15:15:00 (Reason: usama Nolasco MD 7df-4131-9 l Bronchitis y43-5916a3 [facility] ) 84v644 2014-07-06 2014-07-06 2 Weeks nullFlavo Bria, 445c9e e4-e [facility] 14:15:00 14:15:00 (Reason: usama Nolasco MD ab4-4751-8 l Bronchitis 01e-f97a03 [facility] ) 851af6 2014-07-06 2014-07-06 2 Weeks nullFlavo Bria, 80f7ce 10-9 [facility] 14:15:00 14:15:00 (Reason: usama Nolasco MD 3d5-3g4z-5 l Bronchitis 60f-8z8236 [facility] ) 7h9958 2014-07-06 2014-07-06 2 Weeks nullFlavo Bria, 1d42fd 07-3 [facility] 14:15:00 14:15:00 (Reason: usama Nolasco MD 364-40d6-b l Bronchitis 8bc-cf16e5 [facility] ) d230ec 2014-07-06 2014-07-06 2 Weeks nullFlavo Bria, oo4162 47-4 [facility] 14:15:00 14:15:00 (Reason: usama Nolasco MD ce3-4a1e-9 l Bronchitis 9p5-nr2y0m [facility] ) c6e3d2 2014-07-06 2014-07-06 2 Weeks nullFlavo Bria, cad75c 05-a [facility] 14:15:00 14:15:00 (Reason: usama Nolasco MD 21b-40cc-a l Bronchitis v05-66c0a6 [facility] ) 999e9a 2014-07-06 2014-07-06 2 Weeks nullFlavo Bria, ece6f2 65-f [facility] 14:15:00 14:15:00 (Reason: usama Nolasco MD 6i0-27uj-h l Bronchitis z55-3ee7g4 [facility] ) 575976 6414-03-30 2014-07-06 2 Weeks nullFlavo Bria, 80f7ce 10-9 [facility] 14:15:00 14:15:00 (Reason: usama Nolasco MD 2s1-2c1y-6 l Bronchitis 60f-7n0247 [facility] ) 8w5831 2014-07-06 2014-07-06 2 Weeks nullFlavo Bria, 445c9e e4-e [facility] 14:15:00 14:15:00 (Reason: usama Nolasco MD ab4-4751-8 l Bronchitis 01e-f97a03 [facility] ) 851af6 2014-07-06 2014-07-06 2 Weeks nullFlavo Bria, jt3723 47-4 [facility] 14:15:00 14:15:00 (Reason: usama Nolasco MD ce3-4a1e-9 l Bronchitis 3u3-vz0x6l [facility] ) c6e3d2 2014-07-06 2014-07-06 2 Weeks nullFlavo Bria, cad75c 05-a [facility] 14:15:00 14:15:00 (Reason: usama Nolasco MD 21b-40cc-a l Bronchitis d81-05p8v6 [facility] ) 999e9a 2014-07-06 2014-07-06 2 Weeks nullFlavo Bria, ece6f2 65-f [facility] 14:15:00 14:15:00 (Reason: usama Nolasco MD 3h1-68jk-f l Bronchitis y35-1ro8o7 [facility] ) 090434 5659-03-30 2014-07-06 2 Weeks nullFlavo Bria, 1d42fd 07-3 [facility] 14:15:00 14:15:00 (Reason: usama Nolasco MD 364-40d6-b l Bronchitis 8bc-cf16e5 [facility] ) d230ec 2014-06-22 2014-06-22 3M X HTN, nullFlavo Bria, 81a4 afa7-f [facility] 15:00:00 15:00:00 Hyperlipid r Gaurav GRANT u0t-27f3-8 l emia , u79-855bsz Linda nn myalgia b4aaee 2014-06-22 2014-06-22 3M X HTN, nullFlavo Bria, bdcc 5a23-0 [facility] 15:00:00 15:00:00 Hyperlipid r Gaurav RGANT fac-4059-a l emia , 4fb-117992 Linda nn myalgia 9a6958 2014-06-22 2014-06-22 3M X HTN, nullFlavo Bria, 3458 832e-d [facility] 15:00:00 15:00:00 Hyperlipid r Gaurav GRANT 206-46f5-8 l emia , y34-5mq67l Linda nn myalgia 375929 5959-03-16 2014-06-22 3M X HTN, nullFlavo Bria, 8fe6 3ee2-f [facility] 15:00:00 15:00:00 Hyperlipid r Gaurav GRANT 0t2-6799-r l emia , 5fb-ynw261 Linda nn myalgia c1n225 2014-06-22 2014-06-22 3M X HTN, nullFlavo Bria, 360e fade-5 [facility] 15:00:00 15:00:00 Hyperlipid r Gaurav GRANT l07-785j-0 l emia , 34a-270a5a Linda nn myalgia 3d0273 2014-06-22 2014-06-22 3M X HTN, nullFlavo Bria, f7f6 44f0-5 [facility] 15:00:00 15:00:00 Hyperlipid r Gaurav GRANT 54f-4e8f-9 l emia , 0v8-t59242 Linda nn myalgia 64dfde 2014-06-22 2014-06-22 3M X HTN, nullFlavo Bria, 8079 2a85-6 [facility] 15:00:00 15:00:00 Hyperlipid r Gaurav GRANT 539-45d3-9 l emia , 1bd-045cd5 Linda nn myalgia e663c0 2014-06-22 2014-06-22 3M X HTN, nullFlavo Bria, 75f4 0e56-5 [facility] 15:00:00 15:00:00 Hyperlipid r Gaurav GRANT ec7-403d-9 l emia , 7m4-q2cmo2 Linda nn myalgia 0821e0 2014-06-22 2014-06-22 3M X HTN, nullFlavo Bria, fee3 3acf-9 [facility] 15:00:00 15:00:00 Hyperlipid r Gaurav GRANT 1f9-2a44-g l emia , 2e1-455n18 Linda nn myalgia 89ea4c 2014-06-22 2014-06-22 3M X HTN, nullFlavo Bria, c67e 850a-8 [facility] 15:00:00 15:00:00 Hyperlipid r Gaurav GRANT z2d-9361-j l emia , bf6-63d32e Linda nn myalgia 37a048 2014-06-22 2014-06-22 3M X HTN, nullFlavo Bria, ff97 9302-7 [facility] 15:00:00 15:00:00 Hyperlipid r Gaurav GRANT w1u-0479-s l emia , i8h-57131t Linda nn myalgia 54bdb4 2014-06-22 2014-06-22 3M X HTN, nullFlavo Bria, 4e84 f21e-5 [facility] 15:00:00 15:00:00 Hyperlipid r Gaurav GRANT 339-4ea2-9 l emia , 7ec-1202bc Linda nn myalgia 257a00 2014-06-22 2014-06-22 3M X HTN, nullFlavo Bria, 1393 82fe-2 [facility] 15:00:00 15:00:00 Hyperlipid r Gaurav GRANT 932-45bb-9 l emia , 571-260553 Linda nn myalgia 882d24 2014-06-22 2014-06-22 3M X HTN, nullFlavo Bria, 3a53 eab3-4 [facility] 15:00:00 15:00:00 Hyperlipid r Gaurav GRANT 329-4c32-a l emia , ef4-17caa8 Linda nn myalgia 9v161i 2014-06-22 2014-06-22 3M X HTN, nullFlavo Bria, bdcc 5a23-0 [facility] 15:00:00 15:00:00 Hyperlipid r Gaurav GRANT fac-4059-a l emia , 4fb-395485 Linda nn myalgia 7j9688 2014-06-22 2014-06-22 3M X HTN, nullFlavo Bria, 8fe6 3ee2-f [facility] 15:00:00 15:00:00 Hyperlipid r Gaurav GRANT 6j3-1466-x l emia , 5fb-mpk736 Linda nn myalgia v2k624 2014-06-22 2014-06-22 3M X HTN, nullFlavo Bria, 360e fade-5 [facility] 15:00:00 15:00:00 Hyperlipid r Gaurav GRANT g96-223q-2 l emia , 34a-270a5a Linda nn myalgia 9i8705 2014-06-22 2014-06-22 3M X HTN, nullFlavo Bria, 81a4 afa7-f [facility] 15:00:00 15:00:00 Hyperlipid r Gaurav GRANT h7j-24p4-9 l emia , v49-865ujc Linda nn myalgia b4aaee 2014-06-22 2014-06-22 3M X HTN, nullFlavo Bria, 3458 832e-d [facility] 15:00:00 15:00:00 Hyperlipid r Gaurav GRANT 206-46f5-8 l emia , t78-5pb14u Linda nn myalgia 001721 0434-03-16 2014-06-22 3M X HTN, nullFlavo Bria, f7f6 44f0-5 [facility] 15:00:00 15:00:00 Hyperlipid r Gaurav GRANT 54f-4e8f-9 l emia , 6y7-r54271 Linda nn myalgia 64dfde 2014-06-22 2014-06-22 3M X HTN, nullFlavo Bria, 8079 2a85-6 [facility] 15:00:00 15:00:00 Hyperlipid r Gaurav GRANT 539-45d3-9 l emia , 1bd-045cd5 Linda nn myalgia e663c0 2014-06-22 2014-06-22 3M X HTN, nullFlavo Bria, 75f4 0e56-5 [facility] 15:00:00 15:00:00 Hyperlipid r Gaurav GRANT ec7-403d-9 l emia , 7j2-r6zuo5 Linda nn myalgia 0821e0 2014-06-22 2014-06-22 3M X HTN, nullFlavo Bria, c67e 850a-8 [facility] 15:00:00 15:00:00 Hyperlipid r Gaurav GRANT v4j-0062-q l emia , bf6-63d32e Linda nn myalgia 57e958 2014-06-22 2014-06-22 3M X HTN, nullFlavo Bria, fee3 3acf-9 [facility] 15:00:00 15:00:00 Hyperlipid r Gaurav GRANT 8h5-0k84-t l emia , 4q3-078q33 Linda nn myalgia 89ea4c 2014-06-22 2014-06-22 3M X HTN, nullFlavo Bria, ff97 9302-7 [facility] 15:00:00 15:00:00 Hyperlipid r Gaurav GRANT q4x-0379-t l emia , j8e-03799d Linda nn myalgia 54bdb4 2014-06-22 2014-06-22 3M X HTN, nullFlavo Bria, 4e84 f21e-5 [facility] 15:00:00 15:00:00 Hyperlipid r Gaurav GRANT 339-4ea2-9 l emia , 7ec-1202bc Linda nn myalgia 257a00 2014-06-22 2014-06-22 3M X HTN, nullFlavo Bria, 3a53 eab3-4 [facility] 15:00:00 15:00:00 Hyperlipid r Gaurav GRANT 329-4c32-a l emia , ef4-17caa8 Linda nn myalgia 6y085r 2014-06-22 2014-06-22 3M X HTN, nullFlavo Bria, 1393 82fe-2 [facility] 15:00:00 15:00:00 Hyperlipid r Gaurav GRANT 932-45bb-9 l emia , 571-578917 Linda nn myalgia 882d24 2014-06-22 2014-06-22 3M X HTN, nullFlavo Bria, 5591 4059-a [facility] 14:00:00 14:00:00 Hyperlipid r Gaurav GRANT 5bc-420a-8 l emia , 420-de67d4 Linda nn myalgia ea0ec9 2014-06-22 2014-06-22 3M X HTN, nullFlavo Bria, f9cc 5035-8 [facility] 14:00:00 14:00:00 Hyperlipid r Gaurav GRANT o0q-6a63-t l emia , aad-4f92a9 Linda nn myalgia 16k129 2014-06-22 2014-06-22 3M X HTN, nullFlavo Bria, b2e0 a39a-7 [facility] 14:00:00 14:00:00 Hyperlipid r Gaurav GRANT 0ac-4305-b l emia , 66d-60cbf5 Linda nn myalgia 2a534a 2014-06-22 2014-06-22 3M X HTN, nullFlavo Bria, b716 0183-8 [facility] 14:00:00 14:00:00 Hyperlipid r Gaurav GRANT 489-46c6-8 l emia , y06-2xm8d0 Linda nn myalgia ee3a1a 2014-06-22 2014-06-22 3M X HTN, nullFlavo Bria, a384 74c7-7 [facility] 14:00:00 14:00:00 Hyperlipid r Gaurav GRANT x4w-190c-v l emia , 903-450d03 Linda nn myalgia 963748 2162-03-16 2014-06-22 3M X HTN, nullFlavo Bria, b10e d6fc-f [facility] 14:00:00 14:00:00 Hyperlipid r Gaurav GRANT 222-4e62-9 l emia , 87b-81f30d Linda nn myalgia u3142x 2014-06-22 2014-06-22 3M X HTN, nullFlavo Bria, f9cc 5035-8 [facility] 14:00:00 14:00:00 Hyperlipid r Gaurav GRANT l7f-7v56-n l emia , aad-4f92a9 Linda nn myalgia 67b081 2014-06-22 2014-06-22 3M X HTN, nullFlavo Bria, 5591 4059-a [facility] 14:00:00 14:00:00 Hyperlipid r Gaurav GRANT 5bc-420a-8 l emia , 420-de67d4 Linda nn myalgia ea0ec9 2014-06-22 2014-06-22 3M X HTN, nullFlavo Bria, b716 0183-8 [facility] 14:00:00 14:00:00 Hyperlipid r Gaurav GRANT 489-46c6-8 l emia , l48-0ep1a7 Linda nn myalgia ee3a1a 2014-06-22 2014-06-22 3M X HTN, nullFlavo Bria, a384 74c7-7 [facility] 14:00:00 14:00:00 Hyperlipid r Gaurav GRANT l1d-001v-u l emia , 903-450d03 Linda nn myalgia 710352 9533-03-16 2014-06-22 3M X HTN, nullFlavo Bria, b10e d6fc-f [facility] 14:00:00 14:00:00 Hyperlipid r Gaurav GRANT 222-4e62-9 l emia , 87b-81f30d Linda nn myalgia q1368d 2014-06-22 2014-06-22 3M X HTN, nullFlavo Bria, b2e0 a39a-7 [facility] 14:00:00 14:00:00 Hyperlipid r Gaurav GRANT 0ac-4305-b l emia , 66d-60cbf5 Linda nn myalgia 8t763r 2014-05-18 2014-05-18 Unknown nullFlavo Bria, d8cd1e d6-9 [facility] 21:28:00 21:28:00 r Gaurav GRANT 4d9-30c4-d l a24-mm3z8f Linda nn k12976 2014-05-18 2014-05-18 Unknown nullFlavo Bria, 26c3d4 f9-0 [facility] 21:28:00 21:28:00 r Gaurav GRANT 70c-4491-a l 1r5-5a533x Linda nn c227ec 2014-05-18 2014-05-18 Unknown nullFlavo Bria, 841620 9e-5 [facility] 21:28:00 21:28:00 r Gaurav GRANT e60-33k6-1 l 44c-7d8e2f Linda nn ce5bd3 2014-05-18 2014-05-18 Unknown nullFlavo Bria, 472b38 88-5 [facility] 21:28:00 21:28:00 r Gaurav GRANT 182-431b-8 l cce-1b46b5 Linda nn c561a3 2014-05-18 2014-05-18 Unknown nullFlavo Bria, 143c52 ee-7 [facility] 21:28:00 21:28:00 r Gaurav GRANT 043-4043-9 l 37d-r9h025 Linda nn 0f5b56 2014-05-18 2014-05-18 Unknown nullFlavo Bria, 66da78 4f-3 [facility] 21:28:00 21:28:00 r Gaurav GRANT 9t5-121o-c l 5c3-3i7qp2 Linda nn 5b96c5 2014-05-18 2014-05-18 Unknown nullFlavo Bria, 118e91 58-b [facility] 21:28:00 21:28:00 r Gaurav GRANT bee-4172-b l n16-n4o6t0 [facility] nn fad0db 2014-05-18 2014-05-18 Unknown nullFlavo Bria, f1c98b 93-6 [facility] 21:28:00 21:28:00 r Gaurav GRANT 33e-4546-b l 4o4-059n94 [facility] nn 28e841 2014-05-18 2014-05-18 Unknown nullFlavo Bria, 2tj327 73-6 [facility] 21:28:00 21:28:00 r Gaurav GRANT 0ec-404f-b l r71-03yb0o [facility] nn 0a41c2 2014-05-18 2014-05-18 Unknown nullFlavo Bria, 3f4e7e 8b-6 [facility] 21:28:00 21:28:00 r Gaurav GRANT 107-4198-a l 7df-9ad1c2 [facility] nn 5aea56 2014-05-18 2014-05-18 Unknown nullFlavo Bria, 2tm245 16-c [facility] 21:28:00 21:28:00 r Gaurav GRANT 141-4f60-9 l f1l-ng13ea [facility] nn f1i245 2014-05-18 2014-05-18 Unknown nullFlavo Bria, 0c0c9c f6-e [facility] 21:28:00 21:28:00 r Gaurav GRANT 23b-46cf-8 l 524-7b05d9 [facility] nn 950b2b 2014-05-18 2014-05-18 Unknown nullFlavo Bria, 3n4055 c2-1 [facility] 21:28:00 21:28:00 r Gaurav GRANT 0b4-84o7-8 l q86-o34bdp [facility] nn 3j9048 2014-05-18 2014-05-18 Unknown nullFlavo Bria, 455ce7 14-0 [facility] 21:28:00 21:28:00 r Gaurav GRANT 052-4fe7-b l h74-7f3l6l [facility] nn 4514c2 2014-05-18 2014-05-18 Unknown nullFlavo Bria, 26c3d4 f9-0 [facility] 21:28:00 21:28:00 r Gaurav GRANT 70c-4491-a l 5r9-0u181u [facility] nn c227ec 2014-05-18 2014-05-18 Unknown nullFlavo Bria, 472b38 88-5 [facility] 21:28:00 21:28:00 r Gaurav GRANT 182-431b-8 l cce-1b46b5 [facility] nn c561a3 2014-05-18 2014-05-18 Unknown nullFlavo Bria, 143c52 ee-7 [facility] 21:28:00 21:28:00 r Gaurav GRANT 043-4043-9 l 37d-r9e740 [facility] nn 0f5b56 2014-05-18 2014-05-18 Unknown nullFlavo Bria, d8cd1e d6-9 [facility] 21:28:00 21:28:00 r Gaurav GRANT 7l6-06a7-r l s59-ht9t9u [facility] nn [id number] 2014-05-18 2014-05-18 Unknown nullFlavo Bria, [id number] 9e-5 [facility] 21:28:00 21:28:00 r Gaurav GRANT u93-53o0-3 l 44c-7d8e2f [facility] nn ce5bd3 2014-05-18 2014-05-18 Unknown nullFlavo Bria, 66da78 4f-3 [facility] 21:28:00 21:28:00 r Gaurav GRANT 9f9-460r-a l 8i9-1e1zl4 [facility] nn 5b96c5 2014-05-18 2014-05-18 Unknown nullFlavo Bria, 118e91 58-b [facility] 21:28:00 21:28:00 r Gaurav GRANT bee-4172-b l f11-r3t1y6 [facility] nn fad0db 2014-05-18 2014-05-18 Unknown nullFlavo Bria, f1c98b 93-6 [facility] 21:28:00 21:28:00 r Gaurav GRANT 33e-4546-b l 0s3-524f28 [facility] nn 06b440 2014-05-18 2014-05-18 Unknown nullFlavo Bria, 3f4e7e 8b-6 [facility] 21:28:00 21:28:00 r Gaurav GRANT 107-4198-a l 7df-9ad1c2 [facility] nn 5aea56 2014-05-18 2014-05-18 Unknown nullFlavo Bria, 5dp656 73-6 [facility] 21:28:00 21:28:00 r Gaurav GRANT 0ec-404f-b l w51-27dk0r [facility] nn 0a41c2 2014-05-18 2014-05-18 Unknown nullFlavo Bria, 3qm353 16-c [facility] 21:28:00 21:28:00 r Gaurav GRANT 141-4f60-9 l z1j-op98jd [facility] nn a0d246 2014-05-18 2014-05-18 Unknown nullFlavo Bria, 0c0c9c f6-e [facility] 21:28:00 21:28:00 r Gaurav GRANT 23b-46cf-8 l 524-7b05d9 [facility] nn 950b2b 2014-05-18 2014-05-18 Unknown nullFlavo Bria, 455ce7 14-0 [facility] 21:28:00 21:28:00 r Gaurav GRANT 052-4fe7-b l z95-4s5r7c [facility] nn 4514c2 2014-05-18 2014-05-18 Unknown nullFlavo Bria, 5c3796 c2-1 [facility] 21:28:00 21:28:00 r Gaurav GRANT 7l5-98h0-7 l t69-i13vxz [facility] nn 8n2402 2014-05-18 2014-05-18 Unknown nullFlavo Bria, 129fd9 48-d [facility] 20:28:00 20:28:00 r Gaurav GRANT h8b-22ng-s l 261-1cba60 [facility] nn 02e40f 2014-05-18 2014-05-18 Unknown nullFlavo Bria, 1ua569 23-3 [facility] 20:28:00 20:28:00 r Gaurav GRANT e09-3e71-r l 2p8-9285b4 [facility] nn 24bab2 2014-05-18 2014-05-18 Unknown nullFlavo Bria, u13848 84-1 [facility] 20:28:00 20:28:00 r Gaurav GRANT 685-4be7-9 l 380-e657fb [facility] nn rl2747 2014-05-18 2014-05-18 Unknown nullFlavo Bria, 3ae0f2 e0-d [facility] 20:28:00 20:28:00 r Gaurav GRANT i22-1p3s-g l 0j2-2215u1 [facility] nn 8c6c5a 2014-05-18 2014-05-18 Unknown nullFlavo Bria, [id number] ee-a [facility] 20:28:00 20:28:00 r Gaurav GRANT 769-429a-9 l [id number] [facility] nn 407903 6092-02-09 2014-05-18 Unknown nullFlavo Bria, 7d06b5 54-d [facility] 20:28:00 20:28:00 r Gaurav GRANT 5fb-415f-b l 20f-21z426 [facility] nn 65ddea 2014-05-18 2014-05-18 Unknown nullFlavo Bria, 4lg532 23-3 [facility] 20:28:00 20:28:00 r Gaurav GRANT p05-0l70-v l 6r9-1277i8 [facility] nn 24bab2 2014-05-18 2014-05-18 Unknown nullFlavo Bria, 129fd9 48-d [facility] 20:28:00 20:28:00 r Gaurav GRANT w4r-62xu-b l 261-1cba60 [facility] nn 02e40f 2014-05-18 2014-05-18 Unknown nullFlavo Bria, 3ae0f2 e0-d [facility] 20:28:00 20:28:00 r Gaurav GRANT n71-4k6u-o l 2z2-3264a9 [facility] nn 8c6c5a 2014-05-18 2014-05-18 Unknown nullFlavo Bria, 613156 ee-a [facility] 20:28:00 20:28:00 r Gaurav GRANT 769-429a-9 l [id number] [facility] 517309 5119-02-09 2014-05-18 Unknown nullFlavo Bria, 7d06b5 54-d [facility] 20:28:00 20:28:00 r Gaurav GRANT 5fb-415f-b l 20f-34v477 [facility] nn 65ddea 2014-05-18 2014-05-18 Unknown nullFlavo Bria, [id number] 84-1 [facility] 20:28:00 20:28:00 r Gaurav GRANT 685-4be7-9 l 380-e657fb [facility] cq5480 2014-03-23 2014-03-23 3 Months nullFlavo Bria, 9ef87 370-c [facility] 16:15:00 16:15:00 (Reason: r Gaurav GRANT 0h6-2u19-p l Thyroid , [id number]-[id number] Her mcguire cholestero 71274v l ) 2014-03-23 2014-03-23 3 Months nullFlavo Bria, bf1a2 ecc-b [facility] 16:15:00 16:15:00 (Reason: usama Nolasco MD 875-4230-9 l Thyroid , 071-035e57 Her mc[facility]olester[facility] [id number] l ) 2014-03-23 2014-03-23 3 Months nullFlavo Bria, cdfe9 db6-c [facility] 16:15:00 16:15:00 (Reason: usama Nolasco MD s73-9kji-z l Thyroid , 36c-d124ef Her mcgu[facility]olestero 47fb8f l ) 2014-03-23 2014-03-23 3 Months nullFlavo Bria, d0b1d 3cb-e [facility] 16:15:00 16:15:00 (Reason: usama Nolasco MD k44-1t7u-9 l Thyroid , [id number]-[id number] Her mc[facility] 902e3c l ) 2014-03-23 2014-03-23 3 Months nullFlavo Bria, 75efc c6d-c [facility] 16:15:00 16:15:00 (Reason: usama Nolasco MD ac2-429f-9 l Thyroid , [id number] Her mc[facility] cholestero [id number] l ) 2014-03-23 2014-03-23 3 Months nullFlavo Bria, 82b75 297-9 [facility] 16:15:00 16:15:00 (Reason: usama Nolasco MD s1y-77t0-4 l Thyroid , cbd-5294a9 Her mcgu[facility]olestero 4df9e0 l ) 2014-03-23 2014-03-23 3 Months nullFlavo Bria, fb8e7 0c9-6 [facility]oria 16:15:00 16:15:00 (Reason: usama Nolasco MD z0y-34p7-i l Thyroid , a56-03fh76 Her [facility] cholestero 4dfb20 l ) 2014-03-23 2014-03-23 3 Months nullFlavo Bria, 6a8db a8a-7 [facility] 16:15:00 16:15:00 (Reason: usama Nolasco MD k91-3522-3 l Thyroid , 6aa-e6c2bd Her mcguire cholestero 2cbaaa l ) 2014-03-23 2014-03-23 3 Months nullFlavo Bria, a7883 cea-5 [facility] 16:15:00 16:15:00 (Reason: usama Nolasco MD 3i2-174x-v l Thyroid , s96-8q8rr0 Her mcguire cholestero 340967 l ) 2014-03-23 2014-03-23 3 Months nullFlavo Bria, 4ca68 697-9 [facility] 16:15:00 16:15:00 (Reason: usama Nolasco MD 94c-4228-8 l Thyroid , 00a-8b71fb Her mcguire cholestero 1ud833 l ) 2014-03-23 2014-03-23 3 Months nullFlavo Bria, 952fa 7d5-e [facility] 16:15:00 16:15:00 (Reason: usama Nolasco MD bf4-4cdb-9 l Thyroid , 9fd-6f55a2 Her mcguire cholestero 3v7805 l ) 2014-03-23 2014-03-23 3 Months nullFlavo Bria, 8fea7 8aa-f [facility] 16:15:00 16:15:00 (Reason: usama Nolasco MD adc-4090-b l Thyroid , o42-w9s0u5 Her mcguire cholestero 8375a1 l ) 2014-03-23 2014-03-23 3 Months nullFlavo Bria, ce8ac a68-8 [facility] 16:15:00 16:15:00 (Reason: usama Nolasco MD v18-384e-2 l Thyroid , 6k6-9g481p Her mcguire cholestero i8u131 l ) 2014-03-23 2014-03-23 3 Months nullFlavo Bria, 1a53d 1ae-f [facility] 16:15:00 16:15:00 (Reason: usama Nolasco MD 737-4031-8 l Thyroid , 48a-ba45e2 Her mcguire cholestero 54162p l ) 2014-03-23 2014-03-23 3 Months nullFlavo Bria, 8caba cc6-7 [facility] 16:15:00 16:15:00 (Reason: usama Nolasco MD s31-42u6-7 l Thyroid , 994-310096 Her mcguire cholestero a197b8 l ) 2014-03-23 2014-03-23 3 Months nullFlavo Bria, bf1a2 ecc-b [facility] 16:15:00 16:15:00 (Reason: usama Nolasco MD 875-4230-9 l Thyroid , 071-035e57 Her mcguire cholestero [id number] l ) 2014-03-23 2014-03-23 3 Months nullFlavo Bria, 6a8db a8a-7 [facility] 16:15:00 16:15:00 (Reason: usama Nolasco MD g17-4841-1 l Thyroid , 6aa-e6c2bd Her mcguire cholestero 2cbaaa l ) 2014-03-23 2014-03-23 3 Months nullFlavo Bria, d0b1d 3cb-e [facility] 16:15:00 16:15:00 (Reason: usama Nolasco MD c94-6r0s-8 l Thyroid , q4j-k62209 Her mcguire cholestero 902e3c l ) 2014-03-23 2014-03-23 3 Months nullFlavo Bria, 75efc c6d-c [facility] 16:15:00 16:15:00 (Reason: usama Nolasco MD ac2-429f-9 l Thyroid , 525-17fd00 Her mcguire cholestero gld323 l ) 2014-03-23 2014-03-23 3 Months nullFlavo Bria, 9ef87 370-c [facility] 16:15:00 16:15:00 (Reason: usama Nolasco MD 2y3-9b81-b l Thyroid , h9k-w44532 Her mcguire cholestero 35742t l ) 2014-03-23 2014-03-23 3 Months nullFlavo Bria, cdfe9 db6-c [facility] 16:15:00 16:15:00 (Reason: usama Nolasco MD o49-9bvp-g l Thyroid , 36c-d124ef Her mcguire cholestero 47fb8f l ) 2014-03-23 2014-03-23 3 Months nullFlavo Bria, 82b75 297-9 [facility] 16:15:00 16:15:00 (Reason: usama Nolasco MD g5w-90n7-1 l Thyroid , cbd-5294a9 Her mcguire cholestero 4df9e0 l ) 2014-03-23 2014-03-23 3 Months nullFlavo Bria, fb8e7 0c9-6 [facility] 16:15:00 16:15:00 (Reason: usama Nolasco MD s1s-75z9-m l Thyroid , d37-57we53 Her mcguire cholestero 4dfb20 l ) 2014-03-23 2014-03-23 3 Months nullFlavo Bria, a7883 cea-5 [facility] 16:15:00 16:15:00 (Reason: usama Nolasco MD 7g3-262j-e l Thyroid , o58-1n6je4 Her mcguire cholestero 494623 l ) 2014-03-23 2014-03-23 3 Months nullFlavo Bria, 952fa 7d5-e [facility] 16:15:00 16:15:00 (Reason: usama Nolasco MD bf4-4cdb-9 l Thyroid , 9fd-6f55a2 Her mcguire cholestero 8r0029 l ) 2014-03-23 2014-03-23 3 Months nullFlavo Bria, 4ca68 697-9 [facility] 16:15:00 16:15:00 (Reason: usama Nolasco MD 94c-4228-8 l Thyroid , 00a-8b71fb Her mcguire cholestero 9qj305 l ) 2014-03-23 2014-03-23 3 Months nullFlavo Bria, 8fea7 8aa-f [facility] 16:15:00 16:15:00 (Reason: usama Nolasco MD adc-4090-b l Thyroid , v24-a2n5c0 Her mcguire cholestero 8375a1 l ) 2014-03-23 2014-03-23 3 Months nullFlavo Bria, ce8ac a68-8 [facility] 16:15:00 16:15:00 (Reason: usama Nolasco MD z92-008x-6 l Thyroid , 0n0-8v897r Her mcguire cholestero f3f202 l ) 2014-03-23 2014-03-23 3 Months nullFlavo Bria, 8caba cc6-7 [facility] 16:15:00 16:15:00 (Reason: usama Nolasco MD b02-94b5-3 l Thyroid , 994-244153 Her mcguire cholestero a197b8 l ) 2014-03-23 2014-03-23 3 Months nullFlavo Bria, 1a53d 1ae-f [facility] 16:15:00 16:15:00 (Reason: usama Nolasco MD 737-4031-8 l Thyroid , 48a-ba45e2 Her mcguire cholestero 40294o l ) 2014-03-23 2014-03-23 3 Months nullFlavo Bria, 93668 e8a-c [facility] 15:15:00 15:15:00 (Reason: usama Nolasco MD y79-4xl6-z l Thyroid , 30c-f56b54 Her mcguire cholestero 5b14b6 l ) 2014-03-23 2014-03-23 3 Months nullFlavo Bria, 06c75 314-b [facility] 15:15:00 15:15:00 (Reason: usama Nolasco MD 6o2-1015-6 l Thyroid , 345-0a4a07 Her mcguire cholestero c7e7eb l ) 2014-03-23 2014-03-23 3 Months nullFlavo Bria, e9164 66c-8 [facility] 15:15:00 15:15:00 (Reason: usama Nolasco MD c28-1fw0-q l Thyroid , 271-93235l Her mcguire cholestero e39fee l ) 2014-03-23 2014-03-23 3 Months nullFlavo Bria, a7641 5be-d [facility] 15:15:00 15:15:00 (Reason: usama Nolasco MD fe8-47bc-a l Thyroid , t1w-968508 Her mcguire cholestero yxb499 l ) 2014-03-23 2014-03-23 3 Months nullFlavo Bria, ec57f b9c-8 [facility] 15:15:00 15:15:00 (Reason: usama Nolasco MD ffd-4c4c-b l Thyroid , c3b-6w2ps4 Her mcguire cholestero 626b74 l ) 2014-03-23 2014-03-23 3 Months nullFlavo Bria, 48940 ee3-f [facility] 15:15:00 15:15:00 (Reason: usama Nolasco MD 598-4a5f-8 l Thyroid , dfc-699fe6 Her mcguire cholestero b586e6 l ) 2014-03-23 2014-03-23 3 Months nullFlavo Bria, 06c75 314-b [facility] 15:15:00 15:15:00 (Reason: usama Nolasco MD 6s3-2098-3 l Thyroid , 345-0a4a07 Her mcguire cholestero c7e7eb l ) 2014-03-23 2014-03-23 3 Months nullFlavo Bria, 02939 e8a-c [facility] 15:15:00 15:15:00 (Reason: usama Nolasco MD k37-6gv4-j l Thyroid , 30c-f56b54 Her mcguire cholestero 5b14b6 l ) 2014-03-23 2014-03-23 3 Months nullFlavo Bria, a7641 5be-d [facility] 15:15:00 15:15:00 (Reason: usama Nolasco MD fe8-47bc-a l Thyroid , q4d-152862 Her mcguire cholestero ewy029 l ) 2014-03-23 2014-03-23 3 Months nullFlavo Bria, ec57f b9c-8 [facility] 15:15:00 15:15:00 (Reason: usama Nolasco MD ffd-4c4c-b l Thyroid , e3c-1c6st9 Her mcguire cholestero 626b74 l ) 2014-03-23 2014-03-23 3 Months nullFlavo Bria, 26452 ee3-f [facility] 15:15:00 15:15:00 (Reason: usama Nolasco MD 598-4a5f-8 l Thyroid , dfc-699fe6 Her mcguire cholestero b586e6 l ) 2014-03-23 2014-03-23 3 Months nullFlavo Bria, e9164 66c-8 [facility] 15:15:00 15:15:00 (Reason: usama Nolasco MD u96-4sv5-e l Thyroid , 271-27509f Her mcguire cholestero e39fee l ) 2014-03-23 2014-03-23 Outpatient [facility], 148 814 [facility] 10:15:00 10:15:00 Gaurav Nolasco MD alWork s 2014-02-04 2014-02-04 Medication nullFlavo Bria, 482 73ul4-w [facility] 19:30:00 19:30:00 s Issue usama Nolasco MD ce4-481f-8 l 127-f730b2 [facility] nn 919ec4 2014-02-04 2014-02-04 Medication nullFlavo Bria, e64 918z8-c [facility] 19:30:00 19:30:00 s Issue usama Nolasco MD ce0-4911-9 l 44f-995905 [facility] nn d8h164 2014-02-04 2014-02-04 Medication nullFlavo Bria, d45 81z50-4 [facility] 19:30:00 19:30:00 s Issue usama Nolasco MD 38b-43a2-8 l 9x2-3o22xs [facility] nn 99b0c5 2014-02-04 2014-02-04 Medication nullFlavo Bria, 9bf hy38x-3 [facility] 19:30:00 19:30:00 s Issue usama Nolasco MD 858-4d3e-9 l k23-ki40jd [facility] nn 1vj216 2014-02-04 2014-02-04 Medication nullFlavo Bria, ce0 lb9g7-1 [facility] 19:30:00 19:30:00 s Issue usama Nolasco MD 48e-4319-a l cea-0932e1 [facility] nn jq1270 2014-02-04 2014-02-04 Medication nullFlavo Bria, 283 t0923-c [facility] 19:30:00 19:30:00 s Issue usama Nolasco MD j26-4x77-9 l 6l5-b8m3v4 [facility] nn 08207a 2014-02-04 2014-02-04 Medication nullFlavo Bria, 294 82f40-l [facility] 19:30:00 19:30:00 s Issue usama Nolasco MD 94f-4eb8-a l 731-be0e5c [facility] nn 1303a5 2014-02-04 2014-02-04 Medication nullFlavo Bria, 974 ffd06-0 [facility] 19:30:00 19:30:00 s Issue usama Nolasco MD 7u4-52kd-0 l 2n4-1841o1 [facility] nn ae66ac 2014-02-04 2014-02-04 Medication nullFlavo Bria, a73 3f473-2 [facility] 19:30:00 19:30:00 s Issue usama Nolasco MD 366-49e2-8 l 8df-d31b85 [facility] nn 088144 3356-10-29 2014-02-04 Medication nullFlavo Bria, 6d7 75kb1-4 [facility] 19:30:00 19:30:00 s Issue usama Nolasco MD bf7-4d98-a l 41b-cd3a74 [facility] nn 980b6f 2014-02-04 2014-02-04 Medication nullFlavo Bria, b56 9c333-3 [facility] 19:30:00 19:30:00 s Issue usama Nolasco MD u36-52te-z l 10e-30j249 [facility] nn 79r678 2014-02-04 2014-02-04 Medication nullFlavo Bria, 786 40md1-3 [facility] 19:30:00 19:30:00 s Issue usama Nolasco MD bc7-4162-8 l 23a-ea1bdf [facility] nn dn273s 2014-02-04 2014-02-04 Medication nullFlavo Bria, 738 355h4-3 [facility] 19:30:00 19:30:00 s Issue usama Nolasco MD 2t2-686l-0 l t8k-2e2meg [facility] nn a3d74b 2014-02-04 2014-02-04 Medication nullFlavo Bria, 2b1 7e959-6 [facility] 19:30:00 19:30:00 s Issue usama Nolasco MD 4l4-64k1-g l shakir-b7fa75 [facility] nn 97101t 2014-02-04 2014-02-04 Medication nullFlavo Bria, 425 7ui0p-i [facility] 19:30:00 19:30:00 s Issue usama Nolasco MD 622-4348-b l ef5-85c487 [facility] nn d29858 2014-02-04 2014-02-04 Medication nullFlavo Bria, 29d 6d869-0 [facility] 19:30:00 19:30:00 s Issue usama Nolasco MD v54-7047-2 l 870-72ae9e [facility] nn 376b9a 2014-02-04 2014-02-04 Medication nullFlavo Bria, d45 34v30-7 [facility] 19:30:00 19:30:00 s Issue usama Nolasco MD 38b-43a2-8 l 7i8-9y81jc [facility] nn 99b0c5 2014-02-04 2014-02-04 Medication nullFlavo Bria, a73 4m338-1 [facility] 19:30:00 19:30:00 s Issue usama Nolasco MD 366-49e2-8 l 8df-d31b85 [facility] nn 973163 5488-10-29 2014-02-04 Medication nullFlavo Bria, e64 516j2-q [facility] 19:30:00 19:30:00 s Issue usama Nolasco MD ce0-4911-9 l 44f-712085 [facility] nn z4a972 2014-02-04 2014-02-04 Medication nullFlavo Bria, ce0 yr6j0-1 [facility] 19:30:00 19:30:00 s Issue usama Nolasco MD 48e-4319-a l cea-0932e1 [facility] nn xz1623 2014-02-04 2014-02-04 Medication nullFlavo Bria, 283 b0342-b [facility] 19:30:00 19:30:00 s Issue usama Nolasco MD r51-2p45-2 l 0j6-w0v8n5 [facility] nn 71304a 2014-02-04 2014-02-04 Medication nullFlavo Bria, 482 86ql2-v [facility] 19:30:00 19:30:00 s Issue usama Nolasco MD ce4-481f-8 l 127-f730b2 [facility] nn 919ec4 2014-02-04 2014-02-04 Medication nullFlavo Bria, 9bf lg43l-3 [facility] 19:30:00 19:30:00 s Issue usama Nolasco MD 858-4d3e-9 l d20-fq08bk [facility] nn 1bb486 2014-02-04 2014-02-04 Medication nullFlavo Bria, 294 72x30-l [facility] 19:30:00 19:30:00 s Issue usama Nolasco MD 94f-4eb8-a l 731-be0e5c [facility] nn 1303a5 2014-02-04 2014-02-04 Medication nullFlavo Bria, 974 ffd06-0 [facility] 19:30:00 19:30:00 s Issue usama Nolasco MD 5j5-07lg-4 l 7y5-5968u4 [facility] nn ae66ac 2014-02-04 2014-02-04 Medication nullFlavo Bria, 6d7 26ri7-9 [facility] 19:30:00 19:30:00 s Issue usama Nolasco MD bf7-4d98-a l 41b-cd3a74 [facility] nn 980b6f 2014-02-04 2014-02-04 Medication nullFlavo Bria, 786 56nr6-4 [facility] 19:30:00 19:30:00 s Issue usama Nolasco MD bc7-4162-8 l 23a-ea1bdf [facility] nn lk228d 2014-02-04 2014-02-04 Medication nullFlavo Bria, b56 7w065-2 [facility] 19:30:00 19:30:00 s Issue usama Nolasco MD y08-92nm-m l 10e-26o269 [facility] nn 27c112 2014-02-04 2014-02-04 Medication nullFlavo Bria, 738 868e3-0 [facility] 19:30:00 19:30:00 s Issue usama Nolasco MD 6v0-975c-0 l s1i-8w3ckl [facility] nn a3d74b 2014-02-04 2014-02-04 Medication nullFlavo Bria, 2b1 1p962-3 [facility] 19:30:00 19:30:00 s Issue usama Nolasco MD 6p3-96u8-x l shakir-b7fa75 [facility] nn 21321s 2014-02-04 2014-02-04 Medication nullFlavo Bria, 29d 6n578-9 [facility] 19:30:00 19:30:00 s Issue usama Nolasco MD b01-2071-0 l 870-72ae9e [facility] nn 376b9a 2014-02-04 2014-02-04 Medication nullFlavo Bria, 425 1vv9y-x [facility] 19:30:00 19:30:00 s Issue usama Nolasco MD 622-4348-b l ef5-18i319 [facility] nn h47862 2014-02-04 2014-02-04 Medication nullFlavo Bria, 858 p9279-3 [facility] 18:30:00 18:30:00 s Issue usama Nolasco MD fde-4ea1-b l a5s-6sq133 [facility] nn aebc34 2014-02-04 2014-02-04 Medication nullFlavo Bria, 786 m0cga-m [facility] 18:30:00 18:30:00 s Issue usama Nolasco MD l6k-088v-m l 28e-k5s337 [facility] 82bce3 2014-02-04 2014-02-04 Medication nullFlavo Bria, c72 o8q8v-8 [facility] 18:30:00 18:30:00 s Issue usama Nolasco MD 19d-471a-8 l r4p-r711xi [facility] 57301z 2014-02-04 2014-02-04 Medication nullFlavo Bria, 289 g2301-5 [facility] 18:30:00 18:30:00 s Issue usama Nolasco MD 3c0-335q-h l x47-6c4704 [facility] twv071 2014-02-04 2014-02-04 Medication nullFlavo Bria, 6a3 64111-4 [facility] 18:30:00 18:30:00 s Issue usama Nolasco MD df3-470e-8 l ec1-ffc0b6 [facility] 9dd6ca 2014-02-04 2014-02-04 Medication nullFlavo Bria, 6a4 q04u9-0 [facility] 18:30:00 18:30:00 s Issue usama Nolasco MD e79-6478-0 l ca3-d26a72 [facility] 163728 6513-10-29 2014-02-04 Medication nullFlavo Bria, 786 o0hrm-t [facility] 18:30:00 18:30:00 s Issue usama Nolasco MD h8n-876b-c l 28e-o3i333 [facility] 82bce3 2014-02-04 2014-02-04 Medication nullFlavo Bria, 858 j4460-3 [facility] 18:30:00 18:30:00 s Issue usama Nolasco MD fde-4ea1-b l i5w-4xx856 [facility] aebc34 2014-02-04 2014-02-04 Medication nullFlavo Bria, 289 p1374-6 [facility] 18:30:00 18:30:00 s Issue usama Nolasco MD 2b0-075v-c l s70-9b1091 [facility] tdw166 2014-02-04 2014-02-04 Medication nullFlavo Bria, 6a3 50442-3 [facility] 18:30:00 18:30:00 s Issue r Gaurav GRANT df3-470e-8 l ec1-ffc0b6 [facility] nn 9dd6ca 2014-02-04 2014-02-04 Medication nullFlavo Bria, 6a4 g49a0-3 [facility] 18:30:00 18:30:00 s Issue usama Nolasco MD p78-1090-8 l ca3-d26a72 [facility] nn 353149 6962-10-29 2014-02-04 Medication nullFlavo Bria, c72 m5o5v-3 [facility] 18:30:00 18:30:00 s Issue r Gaurav GRANT 19d-471a-8 l a3l-t762tp [facility] nn 94926g 2014-02-04 2014-02-04 Outpatient [facility], 152 773 eClinic 13:30:00 13:30:00 Gaurav Nolasco MD alWork s 2013-12-18 2013-12-18 2 Weeks nullFlavo Bria, 02d81f e4-7 [facility] 14:45:00 14:45:00 (Reason: usama Nolasco MD q62-83u2-2 l Thyroid , 996-x5646d Her mcguire fibromyalg cb2996 ia ,osteoporo sis ) 2013-12-18 2013-12-18 2 Weeks nullFlavo Bria, f681b0 aa-6 [facility] 14:45:00 14:45:00 (Reason: usama Nolasco MD ef7-4e6b-a l Thyroid , 618-0372f4 Her mcguire fibromyalg g82184 ia ,osteoporo sis ) 2013-12-18 2013-12-18 2 Weeks nullFlavo Bria, 4b3ef9 aa-3 [facility] 14:45:00 14:45:00 (Reason: usama Nolasco MD 06d-4ad8-9 l Thyroid , p18-il8d8c Her mcguire fibromyalg 999b57 ia ,osteoporo sis ) 2013-12-18 2013-12-18 2 Weeks nullFlavo Bria, 6o463b 9d-b [facility] 14:45:00 14:45:00 (Reason: usama Nolasco MD 415-440c-b l Thyroid , 814-bfff4f Her mcguire fibromyalg a9c7ac ia ,osteoporo sis ) 2013-12-18 2013-12-18 2 Weeks nullFlavo Bria, b8e0ca 19-e [facility] 14:45:00 14:45:00 (Reason: usama Nolasco MD 443-4068-9 l Thyroid , 2t2-283n00 Her mcguire fibromyalg 16edce ia ,osteoporo sis ) 2013-12-18 2013-12-18 2 Weeks nullFlavo Bria, f2ebe3 98-a [facility] 14:45:00 14:45:00 (Reason: usama Nolasco MD 5t5-24rr-c l Thyroid , b43-6k9c96 Her mcguire fibromyalg 5v510w ia ,osteoporo sis ) 2013-12-18 2013-12-18 2 Weeks nullFlavo Bria, efaae2 26-f [facility] 14:45:00 14:45:00 (Reason: usama Nolasco MD 446-4378-9 l Thyroid , 146-0yu934 Her mcguire fibromyalg 663e1d ia ,osteoporo sis ) 2013-12-18 2013-12-18 2 Weeks nullFlavo Bria, 6ae78b dc-5 [facility] 14:45:00 14:45:00 (Reason: usama Nolasco MD 958-4cfb-8 l Thyroid , k3k-v71h06 Her mcguire fibromyalg 8b3c15 ia ,osteoporo sis ) 2013-12-18 2013-12-18 2 Weeks nullFlavo Bria, 743544 d5-e [facility] 14:45:00 14:45:00 (Reason: usama Nolasco MD cb2-4bdf-b l Thyroid , 2aa-8294ce Her mcguire fibromyalg 919fc0 ia ,osteoporo sis ) 2013-12-18 2013-12-18 2 Weeks nullFlavo Bria, 70ad16 9e-5 [facility] 14:45:00 14:45:00 (Reason: usama Nolasco MD 654-41b7-8 l Thyroid , k76-l7vp8c Her mcguire fibromyalg 60b0ba ia ,osteoporo sis ) 2013-12-18 2013-12-18 2 Weeks nullFlavo Bria, 6846d4 45-3 [facility] 14:45:00 14:45:00 (Reason: usama Nolasco MD y65-2121-b l Thyroid , 8ad-3d4b20 Her mcguire fibromyalg 28cf4d ia ,osteoporo sis ) 2013-12-18 2013-12-18 2 Weeks nullFlavo Bria, 35f2d6 6c-7 [facility] 14:45:00 14:45:00 (Reason: usama Nolasco MD 118-4906-8 l Thyroid , aee-b7d063 Her mcguire fibromyalg 31785u ia ,osteoporo sis ) 2013-12-18 2013-12-18 2 Weeks nullFlavo Bria, 4l2862 24-0 [facility] 14:45:00 14:45:00 (Reason: usama Nolasco MD ab5-4029-9 l Thyroid , 2be-960c52 Her mcguire fibromyalg 430349 ia ,osteoporo sis ) 2013-12-18 2013-12-18 2 Weeks nullFlavo Bria, 82c0c6 a4-9 [facility] 14:45:00 14:45:00 (Reason: usama Nolasco MD f09-1o21-h l Thyroid , a73-5mnt49 Her mcguire fibromyalg 130fd0 ia ,osteoporo sis ) 2013-12-18 2013-12-18 2 Weeks nullFlavo Bria, 63527n db-0 [facility] 14:45:00 14:45:00 (Reason: usama Nolasco MD 524-410e-a l Thyroid , gladys-eca3b2 Her mcguire fibromyalg 82d1f2 ia ,osteoporo sis ) 2013-12-18 2013-12-18 2 Weeks nullFlavo Bria, 2e7a78 1c-1 [facility] 14:45:00 14:45:00 (Reason: usama Nolasco MD 991-41de-a l Thyroid , g0q-8af6i1 Her mcguire fibromyalg 2h6431 ia ,osteoporo sis ) 2013-12-18 2013-12-18 2 Weeks nullFlavo Bria, 4b3ef9 aa-3 [facility] 14:45:00 14:45:00 (Reason: usama Nolasco MD 06d-4ad8-9 l Thyroid , a61-qz1y6h Her mcguire fibromyalg 999b57 ia ,osteoporo sis ) 2013-12-18 2013-12-18 2 Weeks nullFlavo Bria, 876303 d5-e [facility] 14:45:00 14:45:00 (Reason: usama Nolasco MD cb2-4bdf-b l Thyroid , 2aa-8294ce Her mcguire fibromyalg 919fc0 ia ,osteoporo sis ) 2013-12-18 2013-12-18 2 Weeks nullFlavo Bria, f681b0 aa-6 [facility] 14:45:00 14:45:00 (Reason: usama Nolasco MD ef7-4e6b-a l Thyroid , 618-0372f4 Her mcguire fibromyalg i14584 ia ,osteoporo sis ) 2013-12-18 2013-12-18 2 Weeks nullFlavo Bria, b8e0ca 19-e [facility] 14:45:00 14:45:00 (Reason: usama Nolasco MD 443-4068-9 l Thyroid , 4v4-508f95 Her mcguire fibromyalg 16edce ia ,osteoporo sis ) 2013-12-18 2013-12-18 2 Weeks nullFlavo Bria, f2ebe3 98-a [facility] 14:45:00 14:45:00 (Reason: usama Nolasco MD 1g0-40gm-n l Thyroid , y24-3x9f14 Her mcguire fibromyalg 1a902s ia ,osteoporo sis ) 2013-12-18 2013-12-18 2 Weeks nullFlavo Bria, 02d81f e4-7 [facility] 14:45:00 14:45:00 (Reason: usama Nolasco MD t99-88c9-1 l Thyroid , 996-n9043u Her mcguire fibromyalg yn3107 ia ,osteoporo sis ) 2013-12-18 2013-12-18 2 Weeks nullFlavo Bria, 7d470f 9d-b [facility] 14:45:00 14:45:00 (Reason: usama Nolasco MD 415-440c-b l Thyroid , 814-bfff4f Her mcguire fibromyalg a9c7ac ia ,osteoporo sis ) 2013-12-18 2013-12-18 2 Weeks nullFlavo Bria, efaae2 26-f [facility] 14:45:00 14:45:00 (Reason: usama Nolasco MD 446-4378-9 l Thyroid , 146-4oo267 Her mcguire fibromyalg 663e1d ia ,osteoporo sis ) 2013-12-18 2013-12-18 2 Weeks nullFlavo Bria, 6ae78b dc-5 [facility] 14:45:00 14:45:00 (Reason: usama Nolasco MD 958-4cfb-8 l Thyroid , p1q-r42w86 Her mcguire fibromyalg 8b3c15 ia ,osteoporo sis ) 2013-12-18 2013-12-18 2 Weeks nullFlavo Bria, 70ad16 9e-5 [facility] 14:45:00 14:45:00 (Reason: usama Nolasco MD 654-41b7-8 l Thyroid , z53-b0cz6n Her mcguire fibromyalg 60b0ba ia ,osteoporo sis ) 2013-12-18 2013-12-18 2 Weeks nullFlavo Bria, 35f2d6 6c-7 [facility] 14:45:00 14:45:00 (Reason: usama Nolasco MD 118-4906-8 l Thyroid , aee-d3a813 Her mcguire fibromyalg 09135p ia ,osteoporo sis ) 2013-12-18 2013-12-18 2 Weeks nullFlavo Bria, 6846d4 45-3 [facility] 14:45:00 14:45:00 (Reason: usama Nolasco MD x59-0320-y l Thyroid , 8ad-3d4b20 Her mcguire fibromyalg 28cf4d ia ,osteoporo sis ) 2013-12-18 2013-12-18 2 Weeks nullFlavo Bria, 0g1518 24-0 [facility]oria 14:45:00 14:45:00 (Reason: usama Nolasco MD ab5-4029-9 l Thyroid , 2be-960c52 Her mcguire fibromyalg 500059 ia ,osteoporo sis ) 2013-12-18 2013-12-18 2 Weeks nullFlavo Bria, 82c0c6 a4-9 [facility] 14:45:00 14:45:00 (Reason: usama Nolasco MD c36-4e57-f l Thyroid , q58-5iug46 Her mcguire fibromyalg 130fd0 ia ,osteoporo sis ) 2013-12-18 2013-12-18 2 Weeks nullFlavo Bria, 2e7a78 1c-1 [facility] 14:45:00 14:45:00 (Reason: usama Nolasco MD 991-41de-a l Thyroid , e2q-9ya0k9 Her mcguire fibromyalg 8m4515 ia ,osteoporo sis ) 2013-12-18 2013-12-18 2 Weeks nullFlavo Bria, 00336y db-0 [facility] 14:45:00 14:45:00 (Reason: usama Nolasco MD 524-410e-a l Thyroid , gladys-eca3b2 Her mcguire fibromyalg 82d1f2 ia ,osteoporo sis ) 2013-12-18 2013-12-18 2 Weeks nullFlavo Bria, b2c4f6 8d-d [facility] 13:45:00 13:45:00 (Reason: usama Nolasco MD 5db-4b0a-b l Thyroid , 3m7-5tz871 Her mcguire fibromyalg 3f7d33 ia ,osteoporo sis ) 2013-12-18 2013-12-18 2 Weeks nullFlavo Bria, 73v152 b9-f [facility] 13:45:00 13:45:00 (Reason: usama Nolasco MD 1bf-4fa1-9 l Thyroid , 06d-6vm115 Her mcguire fibromyalg 9e6d70 ia ,osteoporo sis ) 2013-12-18 2013-12-18 2 Weeks nullFlavo Bria, 0a2e26 5b-8 [facility] 13:45:00 13:45:00 (Reason: usama Nolasco MD sebas-44da-a l Thyroid , a39-y857cj Her mcguire fibromyalg 13r389 ia ,osteoporo sis ) 2013-12-18 2013-12-18 2 Weeks nullFlavo Bria, p5122m ac-9 [facility] 13:45:00 13:45:00 (Reason: usama Nolasco MD 87a-452a-9 l Thyroid , ca7-adeeb5 Her mcguire fibromyalg f8f5ca ia ,osteoporo sis ) 2013-12-18 2013-12-18 2 Weeks nullFlavo Bria, sj811x 53-5 [facility] 13:45:00 13:45:00 (Reason: usama Nolasco MD 039-4e09-8 l Thyroid , 42c-c1e8c4 Her mcguire fibromyalg b27abd ia ,osteoporo sis ) 2013-12-18 2013-12-18 2 Weeks nullFlavo Bria, 2813e8 b2-3 [facility] 13:45:00 13:45:00 (Reason: usama Nolasco MD fb5-47ba-8 l Thyroid , 0y6-61p8v8 Her mcguire fibromyalg d15a34 ia ,osteoporo sis ) 2013-12-18 2013-12-18 2 Weeks nullFlavo Bria, 60bb36 5e-3 [facility] 13:45:00 13:45:00 (Reason: usama Nolasco MD p9l-170n-p l Thyroid , n3w-g5ly8p Her mcguire fibromyalg 3082d9 ia ,osteoporo sis ) 2013-12-18 2013-12-18 2 Weeks nullFlavo Bria, 0a2e26 5b-8 [facility] 13:45:00 13:45:00 (Reason: usama Nolasco MD sebas-44da-a l Thyroid , f56-j418ln Her mcguire fibromyalg 09f142 ia ,osteoporo sis ) 2013-12-18 2013-12-18 2 Weeks nullFlavo Bria, b2c4f6 8d-d [facility] 13:45:00 13:45:00 (Reason: usama Nolasco MD 5db-4b0a-b l Thyroid , 0l9-0zr175 Her mcguire fibromyalg 3f7d33 ia ,osteoporo sis ) 2013-12-18 2013-12-18 2 Weeks nullFlavo Bria, 82z858 b9-f [facility] 13:45:00 13:45:00 (Reason: usama Nolasco MD 1bf-4fa1-9 l Thyroid , 06d-9ic970 Her mcguire fibromyalg 9e6d70 ia ,osteoporo sis ) 2013-12-18 2013-12-18 2 Weeks nullFlavo Bria, dh086o 53-5 [facility] 13:45:00 13:45:00 (Reason: usama Nolasco MD 039-4e09-8 l Thyroid , 42c-c1e8c4 Her mcguire fibromyalg b27abd ia ,osteoporo sis ) 2013-12-18 2013-12-18 2 Weeks nullFlavo Bria, 2813e8 b2-3 [facility] 13:45:00 13:45:00 (Reason: usama Nolasco MD fb5-47ba-8 l Thyroid , 3n8-72b7m6 Her mcguire fibromyalg d15a34 ia ,osteoporo sis ) 2013-12-18 2013-12-18 2 Weeks nullFlavo Bria, 60bb36 5e-3 [facility] 13:45:00 13:45:00 (Reason: r Gaurav GRANT b6a-508i-v l Thyroid , x4i-i7lh6x Her mcguire fibromyalg 3082d9 ia ,osteoporo sis ) 2013-12-18 2013-12-18 2 Weeks nullFlavo Bria, x5267b ac-9 [facility] 13:45:00 13:45:00 (Reason: r Gaurav GRANT 87a-452a-9 l Thyroid , ca7-adeeb5 Her mcguire fibromyalg f8f5ca ia ,osteoporo sis ) 2013-12-06 2013-12-06 Unknown nullFlavo Bria, 108675 ad-4 [facility] 01:43:00 01:43:00 r Gaurav GRANT 4p3-438u-3 l [id number] [place] nn [id number] 9818-08-30 2013-12-06 Unknown nullFlavo Bria, e83dff d0-e [facility] 01:43:00 01:43:00 r Gaurav GRANT 300-429c-b l [id number]-209933 Linda nn af9b3b 2013-12-06 2013-12-06 Unknown nullFlavo Bria, 38q326 5c-a [facility] 01:43:00 01:43:00 r Gaurav GRANT 76c-48f1-9 l bce-8270ee Linda nn [id number] 2013-12-06 2013-12-06 Unknown nullFlavo Bria, 113d1c 61-b [facility] 01:43:00 01:43:00 r Gaurav GRANT fa7-46d0-b l [id number] Linda nn [id number] 2013-12-06 2013-12-06 Unknown nullFlavo Bria, c3b05a da-e [facility] 01:43:00 01:43:00 r Gaurav GRANT k1k-4808-1 l [id number] Linda nn c869b7 2013-12-06 2013-12-06 Unknown nullFlavo Bria, 63cb93 42-9 [facility] 01:43:00 01:43:00 r Gaurav GRANT w25-71d4-d l ccc-85f5b7 Linda nn [id number] 2013-12-06 2013-12-06 Unknown nullFlavo Bria, d575e4 8b-6 Mem[facility] 01:43:00 01:43:00 r Gaurav GRANT 7w7-9h38-7 l [id number] Linda nn [id number] 2013-12-06 2013-12-06 Unknown nullFlavo Bria, z5538b b4-6 [facility] 01:43:00 01:43:00 r Gaurav GRANT 888-4ae5-b l [id number] Linda nn c37ef3 2013-12-06 2013-12-06 Unknown nullFlavo Bria, 0e07dd 34-5 [facility] 01:43:00 01:43:00 r Gaurav GRANT 2o5-3830-7 l [id number] Linda nn afcab7 2013-12-06 2013-12-06 Unknown nullFlavo Bria, f88d90 f9-e [facility] 01:43:00 01:43:00 r Gaurav GRANT 691-42f5-9 l 4dd-5ecd20 Linda nn f98f84 2013-12-06 2013-12-06 Unknown nullFlavo Bria, 4n769r 28-5 [facility]oria 01:43:00 01:43:00 r Gaurav GARNT u3a-8a01-a l 72e-217f96 Linda nn 65780b 2013-12-06 2013-12-06 Unknown nullFlavo Bria, 33437w 17-0 [facility] 01:43:00 01:43:00 r Gaurav GRANT 4fd-43eb-b l a7p-7byue5 Linda nn f926c7 2013-12-06 2013-12-06 Unknown nullFlavo Bria, 3r406d 09-1 [facility] 01:43:00 01:43:00 r Gaurav GRANT 9be-44a0-8 l o59-5596bg Linda nn f5a5f7 2013-12-06 2013-12-06 Unknown nullFlavo Bria, twp598 61-c [facility]oria 01:43:00 01:43:00 r Gaurav GRANT c0s-9922-2 l r0w-uu1v11 Linda nn a99a9f 2013-12-06 2013-12-06 Unknown nullFlavo Bria, 9521d2 42-2 [facility] 01:43:00 01:43:00 r Gaurav GRANT 3f9-162s-7 l p9c-8z25e4 Linda nn f79d2f 2013-12-06 2013-12-06 Unknown nullFlavo Bria, a9660w 72-d [facility] 01:43:00 01:43:00 r Gaurav GRANT 339-4ba1-9 l ddc-afee6c Linda nn 48a7aa 2013-12-06 2013-12-06 Unknown nullFlavo Bria, 75j373 5c-a [facility]oria 01:43:00 01:43:00 r Gaurav GRANT 76c-48f1-9 l bce-8270ee Linda nn 3t2716 2013-12-06 2013-12-06 Unknown nullFlavo Bria, 0e07dd 34-5 [facility]oria 01:43:00 01:43:00 r Gaurav GRANT 8x8-2358-2 l 388-24447b Linda nn afcab7 2013-12-06 2013-12-06 Unknown nullFlavo Bira, e83dff d0-e [facility] 01:43:00 01:43:00 r Gaurav GRANT 300-429c-b l 45f-247515 Linda nn af9b3b 2013-12-06 2013-12-06 Unknown nullFlavo Bria, c3b05a da-e [facility] 01:43:00 01:43:00 r Gaurav GRANT e2k-2478-0 l 941-070deb Linda nn c869b7 2013-12-06 2013-12-06 Unknown nullFlavo Bria, 63cb93 42-9 [facility] 01:43:00 01:43:00 r Gaurav GRANT u63-80w3-m l ccc-85f5b7 Linda nn 21620l 2013-12-06 2013-12-06 Unknown nullFlavo Bria, 028133 ad-4 [facility] 01:43:00 01:43:00 r Gaurav GRANT 7f5-996m-7 l 348-s4q760 Linda nn 684440 7761-08-30 2013-12-06 Unknown nullFlavo Bria, 113d1c 61-b [facility] 01:43:00 01:43:00 r Gaurav GRANT fa7-46d0-b l 5bc-736714 Linda nn a6eb61 2013-12-06 2013-12-06 Unknown nullFlavo Bria, d575e4 8b-6 [facility] 01:43:00 01:43:00 r Gaurav GRANT 5p8-9i11-2 l 871-b924cb Linda nn 344f73 2013-12-06 2013-12-06 Unknown nullFlavo Bria, p8666a b4-6 [facility] 01:43:00 01:43:00 r Gaurav GRANT 888-4ae5-b l k6w-p8856q Linda nn c37ef3 2013-12-06 2013-12-06 Unknown nullFlavo Bria, f88d90 f9-e [facility] 01:43:00 01:43:00 r Gaurav GRANT 691-42f5-9 l 4dd-5ecd20 Linda nn f98f84 2013-12-06 2013-12-06 Unknown nullFlavo Bria, 66954z 17-0 [facility]oria 01:43:00 01:43:00 r Gaurav GRANT 4fd-43eb-b l w0r-7uooo7 Linda nn f926c7 2013-12-06 2013-12-06 Unknown nullFlavo Bria, 5f331s 28-5 [facility] 01:43:00 01:43:00 r Gaurav GRANT m4i-7p35-m l 72e-217f96 Linda nn 00358g 2013-12-06 2013-12-06 Unknown nullFlavo Bria, 5m864a 09-1 [facility] 01:43:00 01:43:00 r Gaurav GRANT 9be-44a0-8 l m15-8459sf Linda nn f5a5f7 2013-12-06 2013-12-06 Unknown nullFlavo Bria, cxj717 61-c [facility] 01:43:00 01:43:00 r Gaurav GRANT j2d-3613-1 l e6d-gl3v81 Linda nn a99a9f 2013-12-06 2013-12-06 Unknown nullFlavo Bria, p8434x 72-d [facility] 01:43:00 01:43:00 r Gaurva GRANT 339-4ba1-9 l ddc-afee6c Linda nn 48a7aa 2013-12-06 2013-12-06 Unknown nullFlavo Bria, 9521d2 42-2 [facility] 01:43:00 01:43:00 r Gaurav GRANT 1f8-193k-6 l q8u-1o50c7 Linda nn f79d2f 2013-12-06 2013-12-06 Unknown nullFlavo Bria, 91b9fe 0e-8 [facility]oria 00:43:00 00:43:00 r Gaurav GRANT i4i-3l04-2 l g5z-491n01 Linda nn 25d4ff 2013-12-06 2013-12-06 Unknown nullFlavo Bria, f8d58a 6e-9 [facility]oria 00:43:00 00:43:00 r Gaurav GRANT 4l3-5ot9-2 l 903-41b956 Linda nn 05h248 2013-12-06 2013-12-06 Unknown nullFlavo Bria, 37c7d5 cf-4 [facility] 00:43:00 00:43:00 r Gaurav GRANT e3k-8525-f l bc8-e44b4d Linda nn f616b2 2013-12-06 2013-12-06 Unknown nullFlavo Bria, 07b965 16-0 [facility] 00:43:00 00:43:00 r Gaurav GRANT c32-7n7z-t l 103-9079f9 Linda nn 335889 6007-08-30 2013-12-06 Unknown nullFlavo Bria, 717989 0a-a [facility] 00:43:00 00:43:00 r Gaurav GRANT 922-456b-9 l 1fd-bce3c8 Linda nn d31d53 2013-12-06 2013-12-06 Unknown nullFlavo Bria, 08a22d c6-0 [facility] 00:43:00 00:43:00 r Gaurav GRANT 6cb-4b13-8 l n34-973898 Linda nn ddf2c0 2013-12-06 2013-12-06 Unknown nullFlavo Bria, 6b8fe0 5b-0 [facility] 00:43:00 00:43:00 r Gaurav GRANT 123-4f83-9 l [id number] Linda nn 5o334w 2013-12-06 2013-12-06 Unknown nullFlavo Bria, e7fb72 21-7 [facility] 00:43:00 00:43:00 r Gaurav GRANT ddb-4d49-a l susan-bd8e4b Linda nn 4a27e7 2013-12-06 2013-12-06 Unknown nullFlavo Bria, 91b9fe 0e-8 [facility] 00:43:00 00:43:00 r Gaurav GRANT x0f-7b93-9 l s6t-470w08 Linda nn 25d4ff 2013-12-06 2013-12-06 Unknown nullFlavo Bria, 61r248 16-0 [facility] 00:43:00 00:43:00 r Gaurav GRANT b19-9y8b-s l 103-9079f9 Linda nn 105400 9174-08-30 2013-12-06 Unknown nullFlavo Bria, f8d58a 6e-9 [facility] 00:43:00 00:43:00 r Gaurav GRANT 1l3-3ud7-2 l 903-17q305 Linda nn 41x212 2013-12-06 2013-12-06 Unknown nullFlavo Bria, 37c7d5 cf-4 [facility] 00:43:00 00:43:00 r Gaurav GRANT k4v-3565-b l bc8-e44b4d Linda nn f616b2 2013-12-06 2013-12-06 Unknown nullFlavo Bria, 08a22d c6-0 [facility] 00:43:00 00:43:00 r Gaurav GRANT 6cb-4b13-8 l w33-475368 Linda nn ddf2c0 2013-12-06 2013-12-06 Unknown nullFlavo Bria, 6b8fe0 5b-0 [facility] 00:43:00 00:43:00 r Gaurav GRANT 123-4f83-9 l 429-543355 Linda nn 9y731w 2013-12-06 2013-12-06 Unknown nullFlavo Bria, e7fb72 21-7 [facility] 00:43:00 00:43:00 r Gaurav GRANT ddb-4d49-a l susan-bd8e4b Linda nn 4a27e7 2013-12-06 2013-12-06 Unknown nullFlavo Bria, 412402 0a-a [facility] 00:43:00 00:43:00 r Gaurav GRANT 922-456b-9 l 1fd-bce3c8 Linda nn d31d53 2013-12-05 2013-12-05 Outpatient [facility], [facility]25 [facility] 19:43:00 19:43:00 Gaurav Nolasco MD alWork s 2013-12-04 2013-12-04 Annual nullFlavo Bria, eba8ad 76-d [facility] 15:15:00 15:15:00 Pysical r Gaurav GRANT z34-1978-x l 155-7f940l Linda nn 5cae58 2013-12-04 2013-12-04 Annual nullFlavo Bria, 03dd05 08-a [facility] 15:15:00 15:15:00 Pysical r Gaurav GRANT 6f2-57w3-2 l 84e-dad18f Linda nn 4xe965 2013-12-04 2013-12-04 Annual nullFlavo Bria, 72dc70 9c-f [facility] 15:15:00 15:15:00 Pysical r Gaurav GRANT eb8-4a9b-a l c84-l8575j Linda nn 70cbac 2013-12-04 2013-12-04 Annual nullFlavo Bria, 437d19 42-a [facility] 15:15:00 15:15:00 Pysical r Gaurav GRANT m62-5232-m l ebb-fc3b55 Linda nn 5v7874 2013-12-04 2013-12-04 Annual nullFlavo Bria, 03ecce bc-d [facility] 15:15:00 15:15:00 Pysical r Gaurav GRANT 19f-48ab-8 l 0w6-0t6mu4 Linda nn 6c03d0 2013-12-04 2013-12-04 Annual nullFlavo Bria, 6dd2c0 7e-1 [facility] 15:15:00 15:15:00 Pysical r Gaurav GRANT q99-11sr-n l 154-9m8526 Linda nn f4e40c 2013-12-04 2013-12-04 Annual nullFlavo Bria, c7t315 51-2 [facility] 15:15:00 15:15:00 Pysical r Gaurav GRANT f08-29t5-o l 316-196cfa Linda nn rbv880 2013-12-04 2013-12-04 Annual nullFlavo Bria, c8e7f0 ef-4 [facility] 15:15:00 15:15:00 Pysical r Gaurav GRANT 71e-4423-b l x8s-224o05 [facility] nn 8zc488 2013-12-04 2013-12-04 Annual nullFlavo Bria, 0b7de6 7f-8 Memoria 15:15:00 15:15:00 Pysical r Gaurav GRANT 84c-4d37-8 l 5s1-1h0245 [facility] nn 0049e3 2013-12-04 2013-12-04 Annual nullFlavo Bria, 0u238o c5-1 [facility] 15:15:00 15:15:00 Pysical r Gaurav GRANT h09-2g11-2 l u48-7w8yc9 [facility] nn 8468b6 2013-12-04 2013-12-04 Annual nullFlavo Bria, 6e4b8e dc-9 [facility] 15:15:00 15:15:00 Pysical r Gaurav GRANT 877-43d3-8 l 746-ro1530 [facility] nn 634386 1884-08-28 2013-12-04 Annual nullFlavo Bria, 750433 be-6 [facility] 15:15:00 15:15:00 Pysical usama Nolasco MD 8f7-9f29-0 l shaan-d94cf1 [facility] nn b12c91 2013-12-04 2013-12-04 Annual nullFlavo Bria, w4j819 58-8 [facility] 15:15:00 15:15:00 Pysical r Gaurav GRANT 291-44ff-a l 829-4fdf4d [facility] nn 36817x 2013-12-04 2013-12-04 Annual nullFlavo Bria, 504164 3f-9 [facility] 15:15:00 15:15:00 Pysical r Gaurav GRANT 500-4491-8 l 689-65d92e [facility] nn 92202o 2013-12-04 2013-12-04 Annual nullFlavo Bria, c19e9e 15-1 [facility] 15:15:00 15:15:00 Pysical usama Nolasco MD 366-4cf2-b l ecf-d4f5a7 [facility] nn p86821 2013-12-04 2013-12-04 Annual nullFlavo Bria, ad39a6 31-f [facility] 15:15:00 15:15:00 Pysical r Gaurav GRANT 556-4204-a l 505-44879h Linda nn 143a24 2013-12-04 2013-12-04 Annual nullFlavo Bria, 03dd05 08-a [facility] 15:15:00 15:15:00 Pysical r Gaurav GRANT 3j3-58x8-1 l 84e-dad18f Linda nn 8nm212 2013-12-04 2013-12-04 Annual nullFlavo Bria, c8e7f0 ef-4 [facility] 15:15:00 15:15:00 Pysical usama Nolasco MD 71e-4423-b l r9c-783v27 Linda nn 0hg085 2013-12-04 2013-12-04 Annual nullFlavo Bria, eba8ad 76-d [facility] 15:15:00 15:15:00 Pysical r Gaurav GRANT c56-9402-h l 155-1o143h Linda nn 5cae58 2013-12-04 2013-12-04 Annual nullFlavo Bria, 437d19 42-a [facility] 15:15:00 15:15:00 Pysical r Gaurav GRANT j42-2716-k l ebb-fc3b55 Linda nn 7z8705 2013-12-04 2013-12-04 Annual nullFlavo Bria, 03ecce bc-d [facility] 15:15:00 15:15:00 Pysical usama Nolasco MD 19f-48ab-8 l 4t8-6j4wj8 Linda nn 6c03d0 2013-12-04 2013-12-04 Annual nullFlavo Bria, ad39a6 31-f [facility] 15:15:00 15:15:00 Pysical r Gaurav GRANT 556-4204-a l 505-07271o Linda nn 143a24 2013-12-04 2013-12-04 Annual nullFlavo Bria, 72dc70 9c-f [facility] 15:15:00 15:15:00 Pysical r Gaurav GRANT eb8-4a9b-a l c09-n1954r Linda nn 70cbac 2013-12-04 2013-12-04 Annual nullFlavo Bria, 6dd2c0 7e-1 [facility] 15:15:00 15:15:00 Pysical r Gaurav GRANT i88-28am-b l 154-7n3186 Linda nn f4e40c 2013-12-04 2013-12-04 Annual nullFlavo Bria, g6g025 51-2 [facility] 15:15:00 15:15:00 Pysical r Gaurav GRANT s17-50u7-c l 316-196cfa Linda nn dku527 2013-12-04 2013-12-04 Annual nullFlavo Bria, 0b7de6 7f-8 [facility] 15:15:00 15:15:00 Pysical usama Nolasco MD 84c-4d37-8 l 4s1-7w4983 Linda nn 0049e3 2013-12-04 2013-12-04 Annual nullFlavo Bria, 6e4b8e dc-9 [facility] 15:15:00 15:15:00 Pysical usama Nolasco MD 877-43d3-8 l 746-ep9694 Linda nn 855554 5579-08-28 2013-12-04 Annual nullFlavo Bria, 1f012o c5-1 [facility] 15:15:00 15:15:00 Pysical usama Nolasco MD y90-0i61-9 l a29-5q0oh9 Linda nn 8468b6 2013-12-04 2013-12-04 Annual nullFlavo Bria, 077428 be-6 [facility] 15:15:00 15:15:00 Pysical usama Nolasco MD 6b4-7x63-0 l shaan-d94cf1 Linda nn b12c91 2013-12-04 2013-12-04 Annual nullFlavo Bria, w3z863 58-8 [facility] 15:15:00 15:15:00 Pysical usama Nolasco MD 291-44ff-a l 829-4fdf4d Linda nn 06345v 2013-12-04 2013-12-04 Annual nullFlavo Bria, c19e9e 15-1 [facility] 15:15:00 15:15:00 Pysical usama Nolasco MD 366-4cf2-b l ecf-d4f5a7 [facility] nn n64229 2013-12-04 2013-12-04 Annual nullFlavo Bria, 263418 3f-9 Memoria 15:15:00 15:15:00 Pysical usama Nolasco MD 500-4491-8 l 689-65d92e [facility] nn 25047k 2013-12-04 2013-12-04 Annual nullFlavo Bria, p7p348 0f-6 [facility] 14:15:00 14:15:00 Pysical usama Nolasco MD x0h-9375-0 l db1-5a37e3 [facility] nn z14856 2013-12-04 2013-12-04 Annual nullFlavo Bria, ca6b95 c5-e [facility] 14:15:00 14:15:00 Pysical usama Nolasco MD 748-4c60-9 l 9p7-3x0035 [facility] nn a894d1 2013-12-04 2013-12-04 Annual nullFlavo Bria, 8b3daa c3-9 [facility] 14:15:00 14:15:00 Pysical usama Nolasco MD ecb-48db-9 l 8k7-88511l [facility] nn f225d4 2013-12-04 2013-12-04 Annual nullFlavo Bria, 7ecb9d 6a-d [facility] 14:15:00 14:15:00 Pysical usama Nolasco MD 960-420a-b l diego-678efe [facility] nn 573bf1 2013-12-04 2013-12-04 Annual nullFlavo Bria, ra686b 67-1 [facility] 14:15:00 14:15:00 Pysical usama Nolasco MD 78d-47af-a l 735-5z6060 [facility] nn 301c41 2013-12-04 2013-12-04 Annual nullFlavo Bria, vq4744 9c-a [facility] 14:15:00 14:15:00 Pysical usama Nolasco MD x57-520b-4 l f13-067121 [facility] nn 6eeef4 2013-12-04 2013-12-04 Annual nullFlavo Bria, 710466 97-b [facility] 14:15:00 14:15:00 Pysical usama Nolasco MD 4e4-2b01-t l 175-923b55 [facility] nn 4x831z 2013-12-04 2013-12-04 Annual nullFlavo Bria, 8b3daa c3-9 [facility] 14:15:00 14:15:00 Pysical r Gaurav GRANT ecb-48db-9 l 9n6-75497c [place] nn f225d4 2013-12-04 2013-12-04 Annual nullFlavo Bria, j5h975 0f-6 [facility] 14:15:00 14:15:00 Pysical r Gaurav GRANT y9s-7510-9 l db1-5a37e3 Linda nn m58076 2013-12-04 2013-12-04 Annual nullFlavo Bria, ca6b95 c5-e [facility] 14:15:00 14:15:00 Pysical r Gaurav GRANT 748-4c60-9 l 5n2-9d4567 [facility] nn a894d1 2013-12-04 2013-12-04 Annual nullFlavo Bria, ey572d 67-1 [facility] 14:15:00 14:15:00 Pysical r Gaurav GRANT 78d-47af-a l 735-7q8741 [facility] nn 301c41 2013-12-04 2013-12-04 Annual nullFlavo Bria, qx6282 9c-a [facility] 14:15:00 14:15:00 Pysical r Gaurav GRANT l86-693e-6 l z24-428818 [facility] nn 6eeef4 2013-12-04 2013-12-04 Annual nullFlavo Bria, 613448 97-b [facility] 14:15:00 14:15:00 Pysical r Gaurav GRANT 9d0-6j39-c l 175-923b55 [facility] nn 1s319c 2013-12-04 2013-12-04 Annual nullFlavo Bria, 7ecb9d 6a-d [facility] 14:15:00 14:15:00 Pysical r Gaurav GRANT 960-420a-b l diego-678efe Linda nn 573bf1 2013-12-04 2013-12-04 Out[facility], [facility] 782 [facility] 09:15:00 09:15:00 Gaurav MD Gaurav MD alWork s Results Test Description Test Time Test Comments Results Result Sourc e Comments [place], 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 /FREE T4 IF INDICATED 2017-12-13 06:42:00 Test Item Value Reference Range Interpretation Comme nts THYROID STIMULATING HORMONE (BEAKER) (test code = 772) 2.89 uIU/mL 0.35-4.94 BASIC METABOLIC [id number] 06:22:00 Test Item Value Reference Range Interpretation [...] PATIEN TS. CBC W/PLT COUNT & AUTO [id number] 06:14:00 Test Item Value Reference Range Interpretation [...] code = 2801) LACTIC ACID, VENOUS, WHOLE [id number] 15:27:00 Test Item Value Reference Range Interpretation Comments LACTATE BLOOD VENOUS (2) (BEAKER) 1.1 mmol/L 0.5-2.2 (test code = 2872) Effective 08/11/2015: Units/Reference Range ChangeNew: 0.5-2.2 mmol/L Previous: 5- 20 mg/dLBASIC METABOLIC [id number] 13:31:00 Test Item Value Reference Range Interpretation [...] PATIEN TS. 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 Fluoroscopy time 15.2 seconds. Fluoroscopy was not performed by the undersigned. Refer to procedure notes for diagnostic and therapeutic detail. Signed: Tiara Pedersen Verified Date/Time: 12/11/2017 11:03:55 Reading Location: [facility] Radiology Reading Room TISSUE [id number] 17:14:00Surgical Pathology Report Case: [id number] Authorizing Provider: Renetta Avery MD Collected: 11/30/2017 1327 Ordering Location: [facility] Received: 11/30/2017 1424 SERVICES Pathologist:Susan Ramos MD Specimen: Explant, hardware NEURAL STIMULATOR, REMOVAL: - HARDWARE IDENTIFIED (GROSS DIAGNOSIS) Signing Pathologist Direct Phone Line: [phone] signed by Susan Ramos MD on 12/04/2017 at 5:14 [id number] pain disorderHardware, neural stimulator The specimen is received in a fluidless container labeled with patient information and labeled "hardware neural stimulator" and consists of a neural stimulator battery measuring 5.2 x 5 x 0.6 cm with two attached leads measuring 60 cm in length x 0.1 cm in diameter. Specimen serial number [id number]. The specimen is submitted for gross identification only. CG/plMR, SPINE, THORACIC, [id number] 11:58:00FINAL REPORT MR thoracic and lumbar spine [...] Watson MDReport Verified Date/Time:12/04/2017 11:58:05 Reading Location: [facility] C[facility]V Neuro Reading Room MR, SPINE, LUMBAR, WITH [...] Advise dedicated imaging. Signed: Autumn Watson Verified Date/Time:12/04/2017 11:58:05 Reading Location: [facility]013V Neuro Reading Room RAD, CHEST, 2 [id number] 16:14:00 Reason for exam:->Chronic Pain DisorderFINAL REPORT INDICATION: Chronic Pain Disorder COMPARISON: May 15, 2017 TECHNIQUE: Chest radiograph, two views, PA and lateral. FINDINGS / IMPRESSION:Mildly enlarged heart shadow is again demonstrated without pulmonary venous congestion or edema. No pneumonia, pneumothorax, orpleural effusion is demonstrated. Osseous structures are notable for partially imaged lumbar fusion hardware. Signed: Roni Barnett Verified Date/Time: 12/01/2017 16:14:55 Reading Location:[facility] C013X Ortho Consult Reading Room URINALYSIS W/ REFLEX URINE [id number] 10:01:00 Test Item Value Reference Range Interpretation [...] SOURCE(BEAKER) (test code = 2795) BASIC METABOLIC [id number] 09:45:00 Test Item Value Reference Range Interpretation [...] S NOT APPLICABLE FOR DIALYSIS PATIEN TS. [id number] 09:26:00 Test Item Value Reference Range Interpretation Comments PARTIAL THROMBOPLASTIN TIME 36.9 seconds 22.5-36.0 H (BEAKER) (test code = 760) PROTHROMBIN TIME/[id number] 09:25:00 Test Item Value Reference Range Interpretation [...] mechanical heart valves.CBC W/PLT COUNT & AUTO [id number] 09:11:00 Test Item Value Reference Range Interpretation [...] (test code = 2801) AFB CULTURE + [id number] 14:00:00 Test Item Value Reference Range Interpretation Comments CULTURE (BEAKER) (test No acid-fast bacilli code = 1095) isolated in 42 days AFB SMEAR (BEAKER) No acid fast bacilli (test code = 994) seen FUNGUS CULTURE + [id number] 15:41:00 Test Item Value Reference Range Interpretation Comments CULTURE (BEAKER) (test No fungus isolated in code = 1095) 28 days FUNGUS SMEAR (BEAKER) No fungi seen (test code = 1406) ANAEROBIC [id number] 04:04:00 Test Item Value Reference Range Interpretation Comments CULTURE (BEAKER) (test No anaerobes isolated code = 1095) SURGICALLY OBTAINED CULTURE + GRAM [id number] 14:12:00 Test Item Value Reference Interpretation Comments [...] (BEAKER) (test code = cocci in clusters 184845) TISSUE [id number] 15:59:00Surgical Pathology Report Case: [id number] Authorizing Provider: Renetta Avery MD Collected: 08/21/2017 1456 Ordering Location: [facility] Received: 08/22/2017 0819 SERVICES Pathologist:Rebeca Patricia MD Specimen: Explant, HARDWARE HARDWARE, INTRATHECAL PUMP, REMOVAL: - NEWSPAPER JOURNALIST, GROSS IDENTIFICATION ONLY Signing Pathologist Direct Phone Line: [phone] signed by Rebeca Patricia MD on 08/22/2017 at 3:59 PMC/[id number] pain disorder Hardware The specimen is received in a fluidless container labeled with the patient's information and labeled "hardware" and consists of a programmable pump measuring 8 x 7 x 1.7 cm with a 70 cm lead. The serial number for the programmable pump is "[id number]". The specimen is submitted for gross identification. CG/ew Not performedSPIN/CONCENTRATION [id number] 11:42:00 Test Item Value Reference Range Interpretation Comments CONCENTRATION CHARGED (BEAKER) (test Done code = 2657) [id number] 06:19:00 Test Item Value Reference Range Interpretation [...] = 413) CREATINE KINASE (CK), TOTAL AND [id number] 00:38:00 Test Item Value Reference Range Interpretation Comments CREATINE KINASE TOTAL (BEAKER) 46 U/L 29-200 (test code = 380) CREATINE KINASE-MB (BEAKER) (test 1.0 ng/mL 0.0-6.6 code = 750) CREATINE KINASE-MB INDEX (BEAKER) 2.2 % (test code = 395) CK-MB Reference Range:<6.7 Normal6.7-10.0 Borderline>10.0 AbnormalTROPONIN [id number] 00:38:00 Test Item Value Reference Range Interpretation [...] acute neurological disease, and persistent tachyarrhythmia.HEPATIC FUNCTION [id number] 00:35:00 Test Item Value Reference Range Interpretation [...] code = 8 U/L 6-55 347) PROTHROMBIN TIME/[id number] 00:25:00 Test Item Value Reference Range Interpretation Comments PROTIME (BEAKER) (test code = 15.9 seconds 11.7-14.7 H 759) INR (BEAKER) (test code = 370) 1.3 <=5.9 RECOMMENDED COUMADIN/WARFARIN INR THERAPY RANGESSTANDARD DOSE: 2.0 - 3.0 Includes: PROPHYLAXIS for venous thrombosis, systemic embolization; TREATMENT for venous thrombosis and/or pulmonary embolus.HIGH RISK: Target INR is 2.5-3.5 for patients with mechanical heart valves.PLATELET [id number] 12:50:00 Test Item Value Reference Range Interpretation Comments PLATELET COUNT (BEAKER) (test 197 K/CU MM 150-450 code = 756) BASIC METABOLIC [id number] 11:36:00 Test Item Value Reference Range Interpretation [...] DIALYSIS PATIEN TS. URINALYSIS W/ REFLEX URINE [id number] 11:28:00 Test Item Value Reference Range Interpretation [...] code = 516) SOURCE(BEAKER) (test code = 6705) CBC W/PLT COUNT & AUTO [id number] 11:27:00 Test Item Value Reference Range Interpretation [...] 0-1 GRANULOCYTES-RELATIVE PERCENT (BEAKER) (test code = 6043) POCT-GLUCOSE [id number] 08:26:00 Test Item Value Reference Range Interpretation Comments POC-GLUCOSE METER 105 mg/dL 70-110 TESTED AT [facility] 6720 (BEAKER) (test code = ANA LAURASAVAGE BLANCO 1538) [address] BASIC METABOLIC [id number] 06:24:00 Test Item Value Reference Range Interpretation [...] (BEAKER) (test code = 413) BASIC METABOLIC [id number] 05:47:00 Test Item Value Reference Range Interpretation [...] WBC 0-0 (BEAKER) (test code = 413) [id number] 05:12:00 Test Item Value Reference Range Interpretation Comments PHOSPHORUS (BEAKER) (test code = 3.8 mg/dL 2.3-4.7 604) [id number] 05:12:00 Test Item Value Reference Range Interpretation Comments MAGNESIUM (BEAKER) (test code = 1.6 mg/dL 1.6-2.6 627) BASIC METABOLIC [id number] 05:12:00 Test Item Value Reference Range Interpretation [...] APPLICABLE FOR DIALYSIS PATIEN TS. HEPATIC FUNCTION [id number] 05:12:00 Test Item Value Reference Range Interpretation [...] 6-55 347) CBC W/PLT COUNT & AUTO [id number] 04:32:00 Test Item Value Reference Range Interpretation [...] 0-1 PERCENT (BEAKER) (test code = 2801) [id number] 09:47:00 Test Item Value Reference Range Interpretation Comments PHOSPHORUS (BEAKER) (test code = 3.7 mg/dL 2.3-4.7 604) [id number] 09:47:00 Test Item Value Reference Range Interpretation Comments MAGNESIUM (BEAKER) (test code = 1.8 mg/dL 1.6-2.6 627) BASIC METABOLIC [id number] 09:47:00 Test Item Value Reference Range Interpretation [...] APPLICABLE FOR DIALYSIS PATIEN TS. HEPATIC FUNCTION [id number] 09:47:00 Test Item Value Reference Range Interpretation [...] 6-55 347) CBC W/PLT COUNT & AUTO [id number] 09:16:00 Test Item Value Reference Range Interpretation [...] code = 2801) RAD, HAND, 2 VIEWS, [id number] 08:42:00Reason for exam:->history of left forearm/wrist fractureShould [...] Kernepjoanna Verified Date/Time: 06/19/2017 08:42:08 Reading Location: [facility] Radiology Reading Room RAD, FOREARM, 2 VIEWS, [id number] 08:38:00Reason for exam:->history of left wrist/forearm fractureShould [...] Kern MDReport Verified Date/Time: 06/19/2017 08:38:49 Reading Location: [facility] Radiology Reading Room POCT-GLUCOSE [id number] 17:06:00 Test Item Value Reference Range Interpretation Comments POC-GLUCOSE METER 102 mg/dL 70-110 TESTED AT [facility] 6720 (BEAKER) (test code = [place] 1538) [address] T4, [id number] 14:34:00 Test Item Value Reference Range Interpretation Comments FREE T4 (BEAKER) (test code = 655) 1.13 ng/dL 0.70-1.48 [id number] 12:54:00 Test Item Value Reference Range Interpretation Comments PHOSPHORUS (BEAKER) (test code = 3.0 mg/dL 2.3-4.7 604) [id number] 12:54:00 Test Item Value Reference Range Interpretation Comments MAGNESIUM (BEAKER) (test code = 2.1 mg/dL 1.6-2.6 627) BASIC METABOLIC [id number] 12:54:00 Test Item Value Reference Range Interpretation [...] APPLICABLE FOR DIALYSIS PATIEN TS. HEPATIC FUNCTION [id number] 12:54:00 Test Item Value Reference Range Interpretation [...] code = 9 U/L 6-55 347) HEMOGLOBIN [id number] 12:08:00 Test Item Value Reference Range Interpretation Comments HEMOGLOBIN A1C (BEAKER) (test code = 5.8 % 4.3-6.1 368) POCT-GLUCOSE [id number] 11:40:00 Test Item Value Reference Range Interpretation Comments POC-GLUCOSE METER 83 mg/dL 70-110 TESTED AT [facility] 6720 (BEAKER) (test code = ANA LAURASAVAGE Usama [facility] [address] 1538) TSH/FREE T4 IF [id number] 11:38:00 Test Item Value Reference Range Interpretation Comments THYROID STIMULATING HORMONE 8.19 uIU/mL 0.35-4.94 H (BEAKER) (test code = 772) SEDIMENTATION [id number] 11:20:00 Test Item Value Reference Range Interpretation Comments SEDIMENTATION RATE, ERYTHROCYTE 101 mm/HR 0-40 H (BEAKER) (test code = 766) LIPID [id number] 08:58:00 Test Item Value Reference Range Interpretation Comments TRIGLYCERIDES (BEAKER) (test code = 131 mg/dL 540) CHOLESTEROL (BEAKER) (test code = 203 mg/dL 631) HDL CHOLESTEROL (BEAKER) (test code 31 mg/dL = 976) LDL CHOLESTEROL CALCULATED (AKER) 146 mg/dL (test code = 633) Triglyceride Reference Range: Low Risk <150 Borderline 150-199 High Risk 200- 499 Very High Risk >=500Cholesterol Reference Range: Low Risk <200 Borderline 200-239 High Risk >240HDL Cholesterol Reference Range: Low Risk >=60 High Risk <40LDL Cholesterol Reference Range: Optimal <100 Near Optimal 100-129 Borderline 130-159 High 160-189 Very High >=190C-REACTIVE [id number] 08:58:00 Test Item Value Reference Range Interpretation Comments C-REACTIVE PROTEIN (BEAKER) (test 11.13 mg/dL 0.00-0.50 H code = 676) POCT-GLUCOSE [id number] 07:54:00 Test Item Value Reference Range Interpretation Comments POC-GLUCOSE METER 93 mg/dL 70-110 TESTED AT [facility] [address] ([facility]) (test code = ELENO Usama [facility] [address] 1538) CBC W/PLT COUNT & AUTO [id number] 06:52:00 Test Item Value Reference Range Interpretation [...] 0-1 PERCENT (BEAKER) (test code = 2801) PT/[id number] 06:35:00 Test Item Value Reference Range Interpretation [...] 2.5-3.5 for patients with mechanical heart valves.POCT-GLUCOSE [id number] 22:11:00 Test Item Value Reference Range Interpretation Comments POC-GLUCOSE METER 101 mg/dL 70-110 TESTED AT [facility] [address] ([facility]) (test code = ELENO [place] 1538) [address] [place], [facility] IN OR/30 MINUTE [id number] 11:15:00Reason for exam:- >Implantation of Intrathecal PumpFINAL [...] MDReport Verified Date/Time: 06/13/2017 11:15:44 Reading Location: [facility] Radiology Reading Room ALYSIS W/ REFLEX URINE [id number] 16:47:00 Test Item Value Reference Range Interpretation [...] (test code = 2795) RAD, CHEST, 2 [id number] 12:51:00Reason for exam:->PRE OP TESTINGFINAL REPORT Chest, 2 views. Clinical History: PRE OP TESTING Comparison Study:None available Findings: The heart and lungs are within normal limits. The pleural spaces are clear.Degenerative changes are noted. There are postsurgical changes in the spine. A spinal stimulus device is seen. Impression: No active cardiopulmonary disease. Signed: Joaquin Lam MDReport Verified Da te/Time: 05/15/2017 12:51:37 Reading Location: [address] Radiology Reading Room BASIC METABOLIC [id number] 12:14:00 Test Item Value Reference Range Interpretation [...] NOT APPLICABLE FOR DIALYSIS PATIEN TS. PROTHROMBIN TIME/[id number] 11:26:00 Test Item Value Reference Range Interpretation Comments PROTIME (BEAKER) (test code = 15.0 seconds 11.7-14.7 H 759) INR (BEAKER) (test code = 370) 1.2 <=5.9 RECOMMENDED COUMADIN/WARFARIN INR THERAPY RANGESSTANDARD DOSE: 2.0 - 3.0 Includes: PROPHYLAXIS for venous thrombosis, systemic embolization; TREATMENT for venous thrombosis and/or pulmonary embolus.HIGH RISK: Target INR is 2.5-3.5 for patients with mechanical heart valves.[id number] 11:26:00 Test Item Value Reference Range Interpretation Comments PARTIAL THROMBOPLASTIN TIME 38.1 seconds 22.5-36.0 H (BEAKER) (test code = 760) CBC W/PLT COUNT & AUTO [id number] 11:18:00 Test Item Value Reference Range Interpretation [...] 0-1 PERCENT (BEAKER) (test code = 2801) Tjlqtxgxs3036-67-63 15:01:006.7[facility] PzvagobXlwzrpygg0092-10-44 17:57:0010.0 [facility] KibjefuWbrwtwjgv9356-43-09 17:57:43290Bmmbqvuy [facility] 2013-05-05 17:57:61668Oyrrmkpg TdxupdgDkbiwclvn2413-61-46 17:57:0021[facility] YelsvxiFkymtwewx0544-70-24 17:57:59007Qwvsvfin LjbdhnwNpvcxrwsp5336-52-44 17:57:002.6[facility] XfkhxlcSplmkrleq8302-61-84 17:57:09166 MEQ/L[facility] Bjgpyapbq3780-32-31 17:57:004.3 MEQ/LMemorial HzhvnxaYmbvnxgcd5720-76-53 17:57:000.9[facility] QuasxvxKwekijhst5741-27-26 17:57:003[facility] Kvlyjhbvz0039-82-06 17:57:00 Test Item Value Reference Range Interpretation Comments BUN/CREAT (test code = BUN/CREAT) 3 1 6-25 [facility] XzickquYrawufvfn0330-62-35 17:57:003.2[facility] 2013-05-05 17:57:008.4[facility] SimzjmgDfljkgucf9551-43-83 17:57:0018[facility] WxfratvRiatkquvj7317-53-53 17:57:0030[facility] BfpuxuoVwnixyigi3021-49-19 17:57:0086[facility] JoeenijXsrtnenrs8557-65-77 17:57:001.020[facility] [place] Bpsdrjfzd7394-65-85 17:57:008.0[facility] LpgkqgbUldlfdglj7108-52-56 17:57:0010.0 [facility] WavqgabWojmfbtsx4845-71-02 17:57:47119Hyaccjst [facility] 2013-05-05 17:57:65345Jewgbvci WutgyqoAdglzbykh7366-22-59 17:57:0021[facility] UlfewzcMxsdevrvj7604-53-11 17:57:33179Sfzeavim WxwdhnfQomqerfru5118-87-22 17:57:002.6[facility] MtsvgixKejnhonbw2141-41-42 17:57:12041 ME[facility]/L[facility] Knmecfyra1166-02-50 17:57:004.3 MEQ/LMemorial ZccigrrZukkwwmlp7090-34-94 17:57:000.9[facility] KqqgituBzzifekif4143-68-93 17:57:003[facility] [place] Lrqvmhtgq8883-27-81 17:57:00 Test Item Value Reference Range Interpretation Comments BUN/CREAT (test code = BUN/CREAT) 3 10-01 [facility] VkxnsnrLowupzozy7566-78-64 17:57:003.2[facility] 2013-05-05 17:57:008.4[facility] KpobswxDlmavluzl4938-86-95 17:57:0018[facility] GigafssEegmwbias6297-79-51 17:57:0030[facility] VpqouloLkblenyjj6220-60-27 17:57:0086[facility] RvcynfyDktkgukzg0457-36-77 17:57:001.020[facility] Ynmzipwtk4565-46-44 17:57:008.0[facility] RboivvbFxpgobpnee4062-69-24 17:57:0012.2 [facility] DmlgpbjAdvdxytqaw1907-04-76 17:57:0038.4[facility]ann[facility]emat[facility] 2013-05-05 17:57:77942 K/CMMMemorial FtkbnkdXgfjvqjafz3161-12-81 17:57:0048 [facility] EmmtpcgDisklqjegt0060-39-06 17:57:0012.2[facility]ann[facility] 2013-05-05 17:57:0038.4[facility] FwlvnucHuzfyyepkf4882-10-18 17:57:38308 K/CMM [facility] ZzpdmhmSezrknmcqo6942-56-98 17:57:0048[facility]ann[facility] 2013-05-05 17:57:00PositiveMemorial WgkjgdeKmayhocc5442-97-93 17:57:00Positive [facility] ZhuyovgLwbbhoswlu7083-30-88 17:57:00YellowMemorial HermannUrinalysis 2013-05-05 17:57:00OccasionalMemorial MkiswtvDsxafsjrbx8541-83-27 17:57:00Yellow [facility] FpcnngwYlxsuaajfv9043-44-17 17:57:00[facility]ionalMem[facility]annChemistry 2012-04-24 15:54:38005Xqsqixve KrqxqthBlfmxqusc7171-56-02 15:54:56149Oxnxahfd AftntlmQplwlzwky3748-64-49 15:54:0038[facility] TeobtxmXrgxpjtqb2577-71-36 15:54:0072Mem[facility] XvqktrbZvrpjwraq5300-15-24 15:54:51737 MEQ/L[facility] Bfaizclel6080-93-90 15:54:004.1 MEQ/LMemorial HfvoqjqNjelygplt3980-86-00 15:54:001.0[facility] PediiswBxukyebfs7844-62-62 15:54:007[facility] [place] Djozxzuht3133-30-96 15:54:00 Test Item Value Reference Range Interpretation Comments BUN/CREAT (test code = BUN/CREAT) 7 1 625 [facility] FpjzyydWwobqwvvg8755-93-34 15:54:003.7[facility] 2012-04-24 15:54:008.4[facility] HzqqpozWrklmewno8775-89-29 15:54:0029[facility] QtxnwezRjbubrnxa6458-03-60 15:54:0039[facility] AgcrfxmDsoichdnl1715-38-71 15:54:0076Mem[facility] OznarzxOabkjjkyg3662-91-40 15:54:004.680[facility] [place] Ueodbvgdkr2147-92-04 15:54:0012.4[facility] LwnugoyXcyqgacfyu4961-27-71 15:54:00 37.6Mem[facility] XlmsweaBbebnfgykn1118-41-49 15:54:92095 K/CMMMemorial [place] Ejdieeusmk6996-90-33 15:54:00YellowMemorial KwbqjejRftpjmarqe9015-79-97 15:54:00 Occ[facility]ionalMem[facility] OrlminpHfovqkluv8761-99-95 21:40:34540Hccvnuhq [facility] Ssaogxtbn1000-12-18 21:40:74107Fjyfbbjm XpznnamZzsdutfqt2229-41-65 21:40:0034 [facility] ScyacrkOtzoyocio2333-55-67 21:40:0049[facility] 2011-03-14 21:40:50305 MEQ/LMemorial JubgbdrMskuehcdh7635-96-71 21:40:004.1 MEQ/LMemorial BukzvceGklvnkjcx9771-76-30 21:40:000.9[facility] 2011-03-14 21:40:006[facility] ZwxcvjvEnotpudck8010-06-45 21:40:00 Test Item Value Reference Range Interpretation Comments BUN/CREAT (test code = BUN/CREAT) 7 1 6-25 [facility] WhapmilBjcrcisiu7911-23-14 21:40:003.9[facility] 2011-03-14 21:40:009.0[facility] DnuikrkGcaxuvzqc5140-23-33 21:40:0027[facility] GfqckbaNcyxferrb7333-11-03 21:40:0034[facility] AbzvxxhCllfdrvqs5646-71-90 21:40:0076Mem[facility] FqmmhllAhqaimfgm8474-24-24 21:40:000.524[facility] Jcvxclclfj4231-61-62 21:40:0012.2[facility] OyidizkFyptxoxqkp1349-40-24 21:40:00 35.7Memorial HmxspteVgwanyhkse7558-60-57 21:40:12808 K/CMMMemorial [facility] Cyofbfkqie9482-64-32 21:40:00YellowMemorial TaqyvxfXqfryvnmkw4886-64-57 20:30:00 11.6Mem[facility] VssggnyFmyfwkrgeq9838-28-00 20:30:0035.3[facility]ann[facility]emat[facility] 2010-07-21 20:30:08206 K/CMMMemorial VfjawknLbqzvapoyu7943-28-14 20:30:0042 [facility] QiltyhoZpoyvkesal2429-13-52 19:49:00YellowMemorial HermannUrinalysis 2010-06-21 19:49:00OccasionalMemorial VymqaiwVmxtkcknp8568-64-54 17:45:03228 [facility] SenmvwkJlyydgrmq2221-50-27 17:45:004.5[facility]annChem[facility] 2010-05-24 17:45:000.9[facility] UdqexsdQmsnkqxkg6140-78-11 17:45:0013Mem[facility] TktxjetCzuruxdgw4052-88-87 17:45:00 Test Item Value Reference Range Interpretation Comments BUN/CREAT (test code = BUN/CREAT) 14 1 625 [facility] AawdctqDuvedjtcg3590-26-61 17:45:004.2[facility] 2010-05-24 17:45:009.1[facility] NkvfttrOuaherusd2195-65-21 17:45:0015Mem[facility] JaqeydfOqvzulvci5843-01-85 17:45:0012Memorial SmhukowQjpfgzlvf3395-11-56 17:45:0067[facility] BnsanmdWdvnjease0811-69-31 17:45:000.680[facility] Rfuakdnvfsz7770-76-51 17:45:00 Test Item Value Reference Range Interpretation Comments PT PATIENT (test code = PT PATIENT) 13.6 s 12.0-14.7 [facility] LglcgzwYaqmtggiuof0181-70-34 17:45:00 Test Item Value Reference Range Interpretation Comments INR (test code = INR) 1.02 1 0.85-1.17 [facility] WpvipozYubzlmxdhc9486-25-01 17:45:0012.7[facility]ann[facility] 2010-05-24 17:45:0038.1[facility] QhqgfznDgqzxyjihr8591-29-59 17:45:64927 K/CMM [facility] NsomzrmRvexygqghf6167-15-08 17:45:00YellowMemorial HermannCT LUMBAR WO CLINICAL INDICATION: M51.36 Other intervertebral disc degeneration, lumbar regionMODALITY: [employer] CT (Iterative dose reduction techniques are utilized.)TECHNIQUE: [...]
[2023-03-06] MEDS ORDERED: NITROGLYCERIN 0.4 MG/TAB SL ONE (23:30)
[2023-03-07 00:29] LABS: Absolute Lymphocytes (CBC) 1.7 K/uL (0.7-4.9); Hematocrit 39.2 % (36.0-45.0); Lymphocytes % 16.9 % (15.3-44.8); MCV 85.6 fL (80-100); Platelets 210 thou/uL (152-406); RBC Red Blood Cell Count 4.58 M/uL (3.86-4.86)
[2023-03-07 00:38] LABS: ALT/SGPT 31 U/L (13-56); AST/SGOT 17 U/L (15-37); Alkaline Phosphatase 113 U/L (45-117); BUN Blood Urea Nitrogen 20 mg/dL (7-18); Bicarbonate 25 mEq/L (21-32); Bilirubin Total 0.3 mg/dL (0.2-1.0); Glomerular Filtration Rate 46 ml/min (=/>90); Glucose Level 126 mg/dL (74-106); Magnesium 2.3 mg/dL (1.6-2.4); Potassium 4.4 mEq/L (3.5-5.1); Protein, Total 7.4 g/dL (6.4-8.2); Sodium Level 137 mEq/L (136-145); Troponin High Sensitivity 6.7 pg/mL (<58.9)
[2023-03-07 01:10] LABS: Bilirubin Direct < 0.1 mg/dL (0-0.2); Bilirubin Indirect, Calculated ND mg/dL (0.2-0.8)
--- NOTE | 2023-03-07 01:19 | EDPHYS ---
Physician Documentation [facility] Name: Emma Rico Age: 72 yrs Sex: Female : 1950 Arrival Date: 03/06/2023 Time: 22:58 Bed 18 Private MD: ED Physician Mohamud Cheung HPI: 03/06 23:40 This 72 yrs old Female presents to ER via EMS with complaints of Chest pain. rt 23:40 Patient presents to the ED with substernal chest pain which she describes as feeling rt like her chest was exploding. Substernal, radiating laterally to the left. She had associated headache. She did receive 25 mcg of fentanyl which significantly improved but did not resolve her symptoms. She denies other acute complaints at this time. Symptoms are moderate in severity, no other aggravating or alleviating factors.. Historical: - Allergies: 23:06 Codeine; bp 23:06 Morphine; bp 23:06 Sulfa (Sulfonamide Antibiotics); bp - Home Meds: 23:06 levothyroxine 112 mcg tab 1 tab [Active]; pramipexole 1 mg oral tablet 1 tab every day bp at bedtime [Active]; pregabalin 225 mg oral capsule 1 cap 2 times per day [Active]; memantine 5 mg oral tablet 1 tab every morning [Active]; spironolactone 50 mg Oral tab 1 tab 2 times per day [Active]; famotidine 20 mg Oral tab 1 tab every 12 hours [Active]; acetazolamide 250 mg Oral tab 1 tab once daily [Active]; rosuvastatin 5 mg Oral cpSP 1 cap daily [Active]; omeprazole 20 mg oral capsule,delayed release (e.c.) 1 cap daily [Active]; Lasix 20 mg Oral tab 1 tab 2 times per day [Active]; amiodarone 200 mg oral tablet 1 tab daily [Active]; Eliquis 5 mg oral tablet 1 tab 2 times per day [Active]; desvenlafaxine 100 mg oral Tablet, Extended Release 24 hr 1 tab daily [Active]; mirtazapine 7.5 mg oral tablet 1 tab every day at bedtime [Active]; quetiapine 100 mg oral tablet 1 tab every day at bedtime [Active]; hydromorphone 2 mg Oral tablet 1 tabs twice a day [Active]; - PMHx: 23:06 Hypothyroidism; fentanyl pain pump; Hypertension; Depression; Dementia; Chronic pain; bp Cerebrovascular accident; - PSHx: 23:06 Right hip; hysterectomy; Left hip; pain pump placed; back; bp - Immunization history:: Adult Immunizations up to date. - Social history:: Smoking status: Patient denies any tobacco usage or history of. - Family history:: not pertinent. ROS: 23:40 Constitutional: Negative for fever, chills, and weight loss, Respiratory: Negative for rt shortness of breath, cough, wheezing, and pleuritic chest pain, Abdomen/GI: Negative for abdominal pain, nausea, vomiting, diarrhea, and constipation, MS/Extremity: Negative for injury and deformity, Skin: Negative for injury, rash, and discoloration, Psych: Negative for depression, anxiety, suicide ideation, homicidal ideation, and hallucinations, 23:40 Cardiovascular: Positive for chest pain, Negative for edema, 23:40 Neuro: Positive for headache, Negative for altered mental status, Exam: 23:40 Constitutional: This is a well developed, well nourished patient who is awake, alert, rt and in no acute distress. Head/Face: Normocephalic, atraumatic. Chest/axilla: Normal chest wall appearance and motion. Nontender with no deformity. No lesions are appreciated. Cardiovascular: Regular rate and rhythm with a normal S1 and S2. No gallops, murmurs, or rubs. Normal PMI, no JVD. No pulse deficits. Respiratory: Lungs have equal breath sounds bilaterally, clear to auscultation and percussion. No rales, rhonchi or wheezes noted. No increased work of breathing, no retractions or nasal flaring. Abdomen/GI: Soft, non-tender, with normal bowel sounds. No distension or tympany. No guarding or rebound. No evidence of tenderness throughout. Skin: Warm, dry with normal turgor. Normal color with no rashes, no lesions, and no evidence of cellulitis. MS/ Extremity: Pulses equal, no cyanosis. Neurovascular intact. Full, normal range of motion. Neuro: Awake and alert, GCS 15, oriented to person, place, time, and situation. Cranial nerves II-XII grossly intact. Motor strength 5/5 in all extremities. Sensory grossly intact. Cerebellar exam normal. Normal gait. Psych: Awake, alert, with orientation to person, place and time. Behavior, mood, and affect are within normal limits. 23:40 ECG was reviewed by the Attending Physician. Vital Signs: 23:05 BP 147 / 95; Pulse 60; Resp 16; Temp 98; Pulse Ox 97% ; bp 23:45 BP 120 / 63; Pulse 61; Resp 17; Pulse Ox 97% ; vc1 03/07 00:45 BP 125 / 91; Pulse 56; Resp 14; Pulse Ox 97% ; vc1 01:45 BP 146 / 66; Pulse 55; Resp 14; Pulse Ox 98% ; vc1 MDM: 03/06 23:02 Patient medically screened. rt 03/07 01:25 Differential Diagnosis ACS, chest pain, pneumonia, pneumothorax. Data reviewed: vital rt signs, nurses notes. Consideration of Admission/Observation Patient was admitted/placed on observation. Independent interpretation of the following test(s) in the Emergency Department X-Ray: My interpretation is No consolidation seen on interpretation of x-ray images. Test considered but Not performed: CT: Low suspicion for pulmonary embolism, CT angiogram not indicated. Care significantly affected by the following chronic conditions: Atrial fibrillation. Counseling: I had a detailed discussion with the patient and/or guardian regarding the historical points, exam findings, and any diagnostic results supporting the discharge/admit diagnosis, lab results, radiology results, the need for further work-up and treatment in the hospital. Response to treatment: the patient's symptoms have markedly improved after treatment. 03/06 23:09 Order name: Basic Metabolic Panel; Complete Time: 01:10 rt 03/06 23:09 Order name: CBC with Diff; Complete Time: 00:57 rt 03/06 23:09 Order name: LFT's; Complete Time: 01:10 rt 03/06 23:09 Order name: Magnesium; Complete Time: 01:10 rt 03/06 23:09 Order name: Troponin HS; Complete Time: 01:10 rt 03/07 13:38 Order name: Troponin High Sensitivity EDMS 03/06 23:09 Order name: XRAY Chest (1 view) rt 03/06 23:09 Order name: EKG; Complete Time: 23:10 rt 03/07 01:22 Order name: CONS Physician Consult EDOR 03/06 23:09 Order name: Cardiac monitoring; Complete Time: 23:15 rt 03/06 23:09 Order name: EKG - Nurse/Tech; Complete Time: 23:15 rt 03/06 23:09 Order name: IV Saline Lock; Complete Time: 23:15 rt 03/06 23:09 Order name: Labs collected and sent; Complete Time: 23:52 rt 03/06 23:09 Order name: O2 Per Protocol; Complete Time: 23:15 rt 03/06 23:09 Order name: O2 Sat Monitoring; Complete Time: 23:15 rt EC/28 23:40 Rate is 57 beats/min. Rhythm is regular, Sinus bradycardia with No ectopy. Left axis rt deviation noted. IN interval is normal. QRS interval is normal. QT interval is normal. No Q waves. T waves are Normal. No ST changes noted. Interpreted by me. Administered Medications: 23:15 Drug: Nitroglycerin Sublingual 0.4 mg Sublingual once; every five minute if needed x3 vc1 Route: Sublingual; 03/07 02:12 Drug: HYDROmorphone PO 2 mg PO once Route: PO; vc1 Disposition Summary: 03/07/23 01:18 Hospitalization Ordered Notes: Hospitalization Status: Observation rt Provider: Aldo Cabello rt Condition: Stable rt Problem: new rt Symptoms: have improved rt Bed/Room Type: Standard rt Location: Telemetry/MedSurg (observation)(03/07/23 12:51) bd Room Assignment: 222(03/07/23 12:51) bd Diagnosis - Chest pain, unspecified rt Forms: - Medication Reconciliation Form rt - SBAR form rt - Leadership Thank You Letter rt Signatures: Dispatcher [employer] EDTammy Hernandez Brian, RN Bree Schwartz RN RN lg3 Estefania Che RN RN vc1 Mohamud Cheung MD MD rt Corrections: (The following items were deleted from the chart) 01:54 01:18 Telemetry/MedSurg (observation) rt lg3 01:54 01:18 rt lg3 12:51 01:54 [facility] ER HOLD lg3 bd 12:51 01:54 ERHOLD- lg3 bd
--- NOTE | 2023-03-07 01:19 | ER ---
Nurse's Notes [facility] Name: Emma Rico Age: 72 yrs Sex: Female : 1950 Arrival Date: 03/06/2023 Time: 22:58 Bed 18 [facility] MD: Diagnosis: Chest pain, unspecified Presentation: 03/06 23:05 Chief complaint: EMS states: SUBSTERNAL CP SINCE 2099. Coronavirus screen: At this bp time, the client does not indicate any symptoms associated with coronavirus-19. Ebola Screen: No symptoms or risks identified at this time. Initial Sepsis Screen: Does the patient meet any 2 criteria? No. Patient's initial sepsis screen is negative. Does the patient have a suspected source of infection? No. Patient's initial sepsis screen is negative. Risk Assessment: Do you want to hurt yourself or someone else? Patient reports no desire to harm self or others. Onset of symptoms was March 06, 2023 at 21:00. Care prior to arrival: Medication(s) given: FENTANYL 50 MCG IV initiated. 20 GA, in the right antecubital area. 23:05 Method Of Arrival: EMS: [facility] bp 23:05 Acuity: LENNY 3 bp Historical: - Allergies: 23:06 Codeine; bp 23:06 Morphine; bp 23:06 Sulfa (Sulfonamide Antibiotics); bp - Home Meds: 23:06 levothyroxine 112 mcg tab 1 tab [Active]; pramipexole 1 mg oral tablet 1 tab every day bp at bedtime [Active]; pregabalin 225 mg oral capsule 1 cap 2 times per day [Active]; memantine 5 mg oral tablet 1 tab every morning [Active]; spironolactone 50 mg Oral tab 1 tab 2 times per day [Active]; famotidine 20 mg Oral tab 1 tab every 12 hours [Active]; acetazolamide 250 mg Oral tab 1 tab once daily [Active]; rosuvastatin 5 mg Oral cpSP 1 cap daily [Active]; omeprazole 20 mg oral capsule,delayed release (e.c.) 1 cap daily [Active]; Lasix 20 mg Oral tab 1 tab 2 times per day [Active]; amiodarone 200 mg oral tablet 1 tab daily [Active]; Eliquis 5 mg oral tablet 1 tab 2 times per day [Active]; desvenlafaxine 100 mg oral Tablet, Extended Release 24 hr 1 tab daily [Active]; mirtazapine 7.5 mg oral tablet 1 tab every day at bedtime [Active]; quetiapine 100 mg oral tablet 1 tab every day at bedtime [Active]; hydromorphone 2 mg Oral tablet 1 tabs twice a day [Active]; - PMHx: 23:06 Hypothyroidism; fentanyl pain pump; Hypertension; Depression; Dementia; Chronic pain; bp Cerebrovascular accident; - PSHx: 23:06 Right hip; hysterectomy; Left hip; pain pump placed; back; bp - Immunization history:: Adult Immunizations up to date. - Social history:: Smoking status: Patient denies any tobacco usage or history of. - Family history:: not pertinent. Screenin:59 Abuse screen: Denies threats or abuse. Nutritional screening: No deficits noted. vc1 Tuberculosis screening: No symptoms or risk factors identified. 03/07 01:45 [facility] ED Fall Risk Assessment (Adult) History of falling in the last 3 months, vc1 including since admission No falls in past 3 months (0 pts) Confusion or Disorientation No (0 pts) Intoxicated or Sedated No (0 pts) Impaired Gait Yes (1 pt) Mobility Assist Device Used No (0 pt) Altered Elimination No (0 pt) Score/Fall Risk Level 0 - 2 = Low Risk Oriented to surroundings, Maintained a safe environment, Educated pt \T\ family on fall prevention, incl call for assistance when getting out of bed. Assessment: 03/06 23:59 Reassessment: No changes from previously documented assessment. Patient and/or family vc1 updated on plan of care and expected duration. Pain level reassessed. 03/07 01:00 Reassessment: No changes from previously documented assessment. Patient and/or family vc1 updated on plan of care and expected duration. Pain level reassessed. 13:15 Reassessment: report called to valarie oreilly. stated the room is not ready yet and will kc6 call me when its done. Vital Signs: 03/06 23:05 BP 147 / 95; Pulse 60; Resp 16; Temp 98; Pulse Ox 97% ; bp 23:45 BP 120 / 63; Pulse 61; Resp 17; Pulse Ox 97% ; vc1 03/07 00:45 BP 125 / 91; Pulse 56; Resp 14; Pulse Ox 97% ; vc1 01:45 BP 146 / 66; Pulse 55; Resp 14; Pulse Ox 98% ; vc1 ED Course: 03/06 23:00 Patient arrived in ED. as6 23:01 Mohamud Cheung MD is Attending Physician. rt 23:03 Silvio Lott, RN is Primary Nurse. bp 23:06 Triage completed. bp 23:06 Arm band placed on. bp 23:06 Patient has correct armband on for positive identification. Bed in low position. Call vc1 light in reach. daughter at bedside. Client placed on continuous cardiac and pulse oximetry monitoring. NIBP monitoring applied. 23:14 Maintain EMS IV. Dressing intact. Good blood return noted. Site clean \T\ dry. Gauge \T\ bp site: 20 GA R AC. 23:40 XRAY Chest (1 view) In Process Unspecified. EDMS 03/07 01:18 Aldo Cabello MD is Hospitalizing Provider. rt 01:45 No provider procedures requiring assistance completed. Patient admitted, IV remains in vc1 place. Administered Medications: 03/06 23:15 Drug: Nitroglycerin Sublingual 0.4 mg Sublingual once; every five minute if needed x3 vc1 Route: Sublingual; 03/07 02:12 Drug: HYDROmorphone PO 2 mg PO once Route: PO; vc1 Medication: 00:00 VIS not applicable for this client. vc1 Outcome: 01:18 Decision to Hospitalize by Provider. rt 01:45 Admitted to ER Hold. Please see [facility] for further documentation. vc1 01:45 Condition: good 01:45 Instructed on the need for admit, 14:09 Patient left the ED. cm10 Signatures: Dispatcher [employer] EDTX Silvio Lott, RN Geovanni Michel RN RN as6 Estefania Che RN RN vc1 Candelaria Nguyễn RN RN kc6 Mohamud Cheung MD MD rt Erin Maldonado RN RN cm10
[2023-03-07] MEDS ORDERED: HYDROMORPHONE HCL 2 MG/ML inj ONE (02:20)
[2023-03-07] MEDS ORDERED: HYDROMORPHONE ORAL 2 MG TAB ONE ×2 (02:22→07:58)
[2023-03-07 04:28] VITALS: BMI 39.8
[2023-03-07] MEDS: HYDROMORPHONE ORAL 2 MG TAB PO SCH ×2 (08:05→20:19)
[2023-03-07] MEDS: MEMANTINE HCL 10 MG TABLET PO SCH ×2 (09:00→20:19)
[2023-03-07] MEDS: DESVENLAFAXINE SUCCINATE 50 MG ER TAB PO SCH (09:00)
[2023-03-07] MEDS: SPIRONOLACTONE 25 MG TABLET PO SCH (09:00)
[2023-03-07] MEDS: D5 0.9 NS 1,000 ML IV SCH (09:00)
[2023-03-07] MEDS: FAMOTIDINE 20 MG TAB PO SCH ×2 (09:00→20:19)
[2023-03-07] MEDS: PREGABALIN 75 MG CAP PO SCH ×2 (09:00→20:19)
[2023-03-07] MEDS: FUROSEMIDE 20 MG TABLET PO SCH ×2 (09:00→16:38)
[2023-03-07] MEDS: AMIODARONE HCL 200 MG TAB PO SCH (09:00)
[2023-03-07] MEDS ORDERED: D5 0.9 NS 1,000 ML IV ONE (09:43)
[2023-03-07] MEDS ORDERED: FUROSEMIDE 20 MG TABLET ONE (09:43)
[2023-03-07] MEDS ORDERED: AMIODARONE HCL 200 MG TAB ONE (09:43)
[2023-03-07] MEDS ORDERED: PREGABALIN 75 MG CAP PO ONE (09:45)
[2023-03-07] MEDS ORDERED: FAMOTIDINE 20 MG TAB ONE (09:46)
--- NOTE | 2023-03-07 12:03 | RAD REPORT ---
EXAM DESCRIPTION: RAD - Chest Single View - 03/06/2023 11:39 pm CLINICAL HISTORY: CHEST PAIN TECHNIQUE: Frontal view of the chest. COMPARISON: XR Chest dated 11/02/2022 FINDINGS: Lungs: Unremarkable. No consolidation. Pleural space: Unremarkable. No pneumothorax. Heart: The cardiac silhouette is enlarged, stable, in part accentuated by portable technique. Mediastinum: Unremarkable. Normal mediastinal contour. Bones/joints: Multilevel spondylosis. No acute fracture. IMPRESSION: No acute disease. Electronically signed by: Veena Denton MD 03/07/2023 12:07 AM BUSINESS OFFICE TECHNOLOGY INSTRUCTOR Due to temporary technical issues with the PACS/Fluency reporting system, reports are being signed by the in house radiologist without review as a courtesy to ensure prompt reporting. The interpreting r adiologist is fully responsible for the content of the report.
[2023-03-07] MEDS: NITROGLYCERIN 0.4 MG/TAB SL PRN ×2 (18:20→18:25)
[2023-03-07] MEDS: MIRTAZAPINE 15 MG TAB PO SCH (20:20)
[2023-03-07] MEDS: CETIRIZINE HCL 5 MG TABLET PO SCH (20:20)
[2023-03-07] MEDS: ROSUVASTATIN 10 MG TAB PO SCH (20:20)
[2023-03-07] MEDS: PRAMIPEXOLE 1 MG TAB PO SCH (20:20)
[2023-03-07] MEDS: QUETIAPINE 100MG TAB PO SCH (20:20)
--- NOTE | 2023-03-07 21:00 | HP ---
Date of Admission: 03/07/2023 Chief Complaint: Chest pain. History Of Present Illness: This is a 72-year-old very pleasant female patient who lives at home wit h her family, was doing fine in her normal usual state of health until around 9:30 p.m. last night. All of a sudden, she started to have acute onset of chest pain and she came into emergency room with this. The patient describes her chest pain located in the retrosternal area. No radiation of pain a nywhere. After about 30 minutes or so of this chest pain, she was brought into emergency room. She says altogether her pain lasted for about 1 hour. She was given some medication by EMS and in the em ergency room, she received nitroglycerin and subsequently her pain got relieved. She did have little bit headache with the nitroglycerin, but no more chest pain. By the time I saw her in the emergency room this morning, she was asymptomatic, lying in bed and her granddaughter was with her at bedside. She felt like she had little bit shortness of breath with the chest pain. No nausea, vomiting. No diaphoresis. She describes her chest pain as crushing type of feeling in the center of her chest. Allergies: TO MORPHINE, CAUSING NAUSEA AND VOMITING; CODEINE, CAUSING NAUSEA AND VOMITING; AND SULFA , CAUSING RASH. Review of Systems: Cardiovascular: As mentioned above. Musculoskeletal: Has chronic joint pain. All other systems reviewed and negative. Medications: Acetazolamide 250 mg daily, amiodarone 200 mg tablets daily, Eliquis 5 mg 2 times a day , Zyrtec 10 mg daily at bedtime, vitamin D3 2000 units daily, Pristiq 100 mg daily, famotidine 20 mg 2 times a day, furosemide 20 mg 2 times a day, Dilaudid 2 mg 2 times a day, levothyroxine 112 mcg bin ly, memantine 5 mg 2 times a day, mirtazapine 7.5 mg daily at bedtime, pramipexole 1 mg at bedtime, Lyrica 225 mg 2 times a day, Seroquel 100 mg daily at bedtime, rosuvastatin 20 mg daily at bedtime, spironolactone 25 mg daily. Past Medical History: Significant for chronic diastolic heart failure, hypothyroidism, anemia, osteo arthritis at multiple sites hypokalemia, hypertension, hyperlipidemia, fibromyalgia, vitamin D defici ency, chronic leg edema, paroxysmal atrial fibrillation, osteoporosis, prior history of stroke, chron ic kidney disease stage 3A, dementia, restless legs syndrome. Past Surgical History: Cataract surgery; hysterectomy; back surgery in 2013; pain pump, which was pl aced and then subsequently removed on January 02, 2022; spinal cord stimulator placement, 2014 and removal of hardware from her back, 2018; SI fusion, 2021; and bilateral hip replacement surgery. Family History: Father due to swine flu. Mother and had anxiety, depression, myocardial i nfarction. Sister has myocardial infarction. Social History: Negative for smoking and alcohol use. Physical Examination: Vital Signs: Height 5 feet 3 inches, weight 225 pounds. Temperature 97.4, pulse 74, respiratory rat e 16, blood pressure 138/57, oxygen saturation 94%. General: Awake, alert, oriented, not in distress. HEENT: Head atraumatic, normocephalic. Conjunctivae nonerythematous. Sclerae white. Mouth, no thr ush or edema noted. Ears/Nose, no mass, lesion, discharge noted. Neck: Supple. No JVD, lymph nodes, bruit, thyromegaly noted. Lungs: Bilateral good equal air entry. Clear to auscultation. No rhonchi. No rales. Heart: Normal heart sounds, no murmur or gallop. Abdomen: Soft, bowel sounds normal. No guarding, rigidity, tenderness, mass, hepatosplenomegaly, dis tention, or bruit noted. Extremities: No leg edema. No calf tenderness. Skin: No rash, ulcer, cellulitis. Lymphatics: No lymph node enlargement in neck, supraclavicular, infraclavicular region. Neuro: No focal neurological deficit. Chest: Unremarkable. External Genitalia: Deferred. Rectal: Deferred. Laboratory Data: White count 10.10, hemoglobin 12.6, platelets 210. Sodium 137, potassium 4.4, chlo ride 107, bicarb 25, BUN 20, creatinine 1.23, glucose 126. Liver function test unremarkable. Tropon in 6.7 on the first set, second set 6.1. Impression: 1.Chest pain. 2.Paroxysmal atrial fibrillation. 3.Chronic anticoagulation therapy. 4.Chronic kidney disease stage 3A. 5.Chronic diastolic heart failure. 6.Hypothyroidism. 7.Osteoarthritis, multiple sites. 8.Hypertension. 9.Hyperlipidemia. 10.Fibromyalgia. 11.Vitamin D deficiency. 12.Senile dementia. 13.Restless legs syndrome. Plan: Admit the patient to hospital for further evaluation and management of this problem. We will go ahead and consult party plan sales host/hostess, Dr. Baldwin. She has seen him recently. Had an echocardiogram don e with him. I did communicate with Dr. Baldwin this morning and he informed me that the patient had a negative stress test in July of last year, and he will evaluate the patient today and then provide further recommendation. The patient takes Eliquis at home, but at this point Dr. Baldwin has suggeste d not to restart Eliquis in case if he wants to do any cardiac intervention. We will go ahead and gi ve her maintenance IV fluid. Home medications will be continued for hypertension. Monitor blood pre ssure, make necessary adjustment on blood pressure medication if it is necessary. For high cholester ol, we will continue her statin therapy per order. For her hypothyroidism, levothyroxine will be con tinued per order. For her restless legs syndrome, we will continue her medications as per order. Fo r fibromyalgia, she takes Lyrica and we will continue that as per order also. She takes Dilaudid 2 m g two times a day, which is prescribed by her touch up painter hand and we will continue that me dication while in the hospital. Details and plan of treatment discussed with the patient as well as the patient's granddaughter who was at bedside. I will be out of town starting tomorrow morning and this patient will be managed by Hospitalist team starting tomorrow morning. I have discussed details with the hospitalist. BO/MODL Voice ID: [id number]
[2023-03-08 03:17] LABS: Absolute Lymphocytes (CBC) 1.6 K/uL (0.7-4.9); Hematocrit 36.7 % (36.0-45.0); Lymphocytes % 17.2 % (15.3-44.8); MCV 84.7 fL (80-100); Platelets 205 thou/uL (152-406); RBC Red Blood Cell Count 4.33 M/uL (3.86-4.86)
[2023-03-08 03:20] LABS: Potassium 4.1 mEq/L (3.5-5.1)
[2023-03-08] MEDS: LEVOTHYROXINE SOD 0.112 MG TAB PO SCH (06:02)
[2023-03-08] MEDS: D5 0.9 NS 1,000 ML IV SCH ×2 (06:02→16:42)
[2023-03-08] MEDS: PANTOPRAZOLE 40MG TABLET PO SCH (06:02)
[2023-03-08] MEDS: ENOXAPARIN 40 MG/0.4 ML SQ SCH ×2 (08:04→13:26)
[2023-03-08] MEDS: HYDROMORPHONE ORAL 2 MG TAB PO SCH ×3 (08:06→19:39)
[2023-03-08] MEDS: MEMANTINE HCL 10 MG TABLET PO SCH ×3 (09:00→19:40)
[2023-03-08] MEDS ORDERED: REGADENOSON 0.4 MG/5 ML SYR IV ONE (09:00)
[2023-03-08] MEDS: FAMOTIDINE 20 MG TAB PO SCH ×3 (09:00→19:39)
[2023-03-08] MEDS: DESVENLAFAXINE SUCCINATE 50 MG ER TAB PO SCH ×2 (09:00→13:31)
[2023-03-08] MEDS: FUROSEMIDE 20 MG TABLET PO SCH ×3 (09:00→17:15)
[2023-03-08] MEDS: SPIRONOLACTONE 25 MG TABLET PO SCH ×2 (09:00→13:28)
[2023-03-08] MEDS: PREGABALIN 75 MG CAP PO SCH ×3 (09:00→19:39)
[2023-03-08] MEDS: AMIODARONE HCL 200 MG TAB PO SCH ×2 (09:00→13:29)
--- NOTE | 2023-03-08 10:15 | RAD REPORT ---
EXAM DESCRIPTION: NM - Rest Stress Cardiac Imaging - 03/08/2023 9:58 am CLINICAL HISTORY: CP COMPARISON: No comparisons TECHNIQUE: The patient was administered approximately 10.7 mCi of Tc 99m Sestamibi prior to resting SPECT imaging of the heart. The patient was then administered approximately 30.9 mCi of Tc 99m Sestam ibi following exercise or pharmacologic stress. Multiplanar SPECT images were reviewed. FINDINGS: Small to moderate region of reversible defect involving the mid anterior wall segment exte nding to the junction with the lateral wall, concerning for ischemia. Region of marked fixed attenuat ion of uptake involving the remainder of the lateral wall and junction with the inferior wall could b e artifactual, related to patient positioning, although a small infarct in this region can be present . The end diastolic volume is 74 ml, the end systolic volume is 24 ml, and the ejection fraction is 67 %. IMPRESSION: Small to moderate region of reversible defect concerning for ischemia, involving the mid anterior wall segment, extending to the junction with the lateral wall, in the territory of the left anterior descending, and possibly left circumflex arteries. Adjacent moderate region of fixed defect involving the remainder of the lateral wall and junction wit h the inferior wall, could be artifactual or related to a prior infarct. Normal left ventricular ejection fraction, 67%
--- NOTE | 2023-03-08 11:45 | TREADPHA ---
DX: CHEST PAIN Date of Study: 03/08/2023 Ht: 5' 3 " Wt: 225 lb 0 oz Consulting Physician: JOSE LUIS MEDICATIONS: CORDARONE, ZYRTEC, PRISTIQ, LOVENOX, PEPCID, LASIX, DILAUDID, SYNTHROID, NAMENDA, REMERON, NITROSTAT, PROTONIX, MIRAPEX, LYRICA, SEROQUEL, CRESTOR, ALDACTONE HISTORY: 72 YEAR OLD FEMALE WITH COMPLIANTS OF CHEST PAIN AND WEAKNESS. HISTORY OF HYPERTENSION, HYPERLIPIDEMIA, THYROID, CHRONIC PAIN, CORONARY ARTERY DISEASE, CONGESTIVE HEART FAILURE PHYSICIAL EXAMINATION: RESTING B.P.: 142/70 RESTING H.R.: 57 RESTING EKG: NORMAL SINUS RHYTHM PROTOCOL: PHARMACOLOGIC EXERCISE TIME: 3:30 B.P. AT PEAK STRESS: 107/52 IMPRESSION: LEXISCAN INJECTED, FOLLOWED BY CARDIOLITE PER PROTOCOL. SEE NUCLEAR MEDICINE REPORT. NO SUPRAVENTRICULAR TACHYCARDIA, VENTRICULAR TACHYCARDIA, PREMATURE ATRIAL COMPLEXES, PREMATURE VENTRICULAR COMPLEXES. PATIENT REPORTED CHEST PRESSURE FIVE OUT OF TEN ON PAIN SCALE. NO ELECTROCARDIOGRAM CHANGES WITH LEXISCAN.
--- NOTE | 2023-03-08 15:18 | EKG ---
Test Date: 2023-03-06 Test Time: 23:08:40 Foxer: SANJUANA MEASUREMENT RESULTS: Intervals: Rate: 57 OH: 184 QRSD: 94 QT: 424 QTc: 412 Alanson: P: 65 OH: 184 QRS: -77 T: 42 INTERPRETIVE STATEMENTS: Sinus bradycardia Left axis deviation Low voltage QRS Abnormal ECG Compared to ECG 11/02/2022 04:43:48 Left-axis deviation now present Left anterior fascicular block no longer present Myocardial infarct finding no longer present Electronically Signed On 03-08-23 15:12:51 DAIRY CATTLE FARM MANAGER by Nghia Baldwin
[2023-03-08] MEDS: PRAMIPEXOLE 1 MG TAB PO SCH (19:39)
[2023-03-08] MEDS: QUETIAPINE 100MG TAB PO SCH (19:40)
[2023-03-08] MEDS: MIRTAZAPINE 15 MG TAB PO SCH (19:40)
[2023-03-08] MEDS: CETIRIZINE HCL 5 MG TABLET PO SCH (19:40)
[2023-03-08] MEDS: ROSUVASTATIN 10 MG TAB PO SCH (19:42)
[2023-03-09] MEDS: PANTOPRAZOLE 40MG TABLET PO SCH (05:22)
[2023-03-09] MEDS: LEVOTHYROXINE SOD 0.112 MG TAB PO SCH (05:22)
[2023-03-09] MEDS: D5 0.9 NS 1,000 ML IV SCH (05:23)
[2023-03-09 08:41] VITALS: TEMP 97.8
[2023-03-09] MEDS: ENOXAPARIN 40 MG/0.4 ML SQ SCH (09:00)
[2023-03-09] MEDS: DESVENLAFAXINE SUCCINATE 50 MG ER TAB PO SCH (09:00)
[2023-03-09] MEDS: AMIODARONE HCL 200 MG TAB PO SCH (09:00)
[2023-03-09] MEDS: HYDROMORPHONE ORAL 2 MG TAB PO SCH (09:00)
[2023-03-09] MEDS: SPIRONOLACTONE 25 MG TABLET PO SCH (09:00)
[2023-03-09] MEDS: MEMANTINE HCL 10 MG TABLET PO SCH (09:00)
[2023-03-09] MEDS: FUROSEMIDE 20 MG TABLET PO SCH ×2 (09:00→17:00)
[2023-03-09] MEDS: FAMOTIDINE 20 MG TAB PO SCH (09:00)
[2023-03-09] MEDS: PREGABALIN 75 MG CAP PO SCH (09:00)
[2023-03-09] MEDS ORDERED: NA CHLORIDE 0.9% 500 ML ONE (14:10)
[2023-03-09] MEDS ORDERED: LIDOCAINE 1% 20 ML MDV ONE (14:57)
[2023-03-09] MEDS ORDERED: VERAPAMIL HCL 10 MG/4 ML VIAL IV ONE (15:06)
[2023-03-09] MEDS ORDERED: HEPA 1000U/500MLS 2,000 UNIT/1,000 ML BAG IV ONE (15:06)
[2023-03-09] MEDS ORDERED: NITROGLYCERIN/D5W 50 MG/250 ML BTL IV ONE (15:06)
[2023-03-09] MEDS ORDERED: HEPARIN 5000 UNIT/ML 1 ML VIAL ONE (15:07)
[2023-03-09] MEDS ORDERED: MIDAZOLAM HCL 2 MG/2 ML INJ ONE (15:07)
[2023-03-09] MEDS ORDERED: FENTANYL CITR 100 MCG/2 ML ONE (15:07)
[2023-03-09] MEDS ORDERED: HEPARIN 10,000 UNIT/10 ML VIAL IV ONE (15:08)
[2023-03-09] MEDS ORDERED: ASPIRIN 325 MG TAB ONE (15:09)
--- NOTE | 2023-03-09 17:55 | OP ---
Date of Procedure: 03/09/2023 Surgeon: LIDA AMAYA Procedures Performed: 1.Selective coronary angiogram. 2.Left heart catheterization. Indication: Unstable angina with positive stress test. Access: Right radial artery 6-Italian closed with TR band. Complications: None. Bleeding: Less than 20 mL. Anesthesia: Total sedation time was 50 minutes. Description Of Procedure: After risks, benefits, alternatives were explained, patient agreed to proc edure and signed informed consent. Patient was brought into the cardiac catheterization laboratory, prepped and draped in usual sterile fashion. Then, I accessed right radial artery using pediatric mi cropuncture kit, placed a 6-Italian Slender sheath and took a 6-Italian JL3.5 catheter over a J-wire in to the aortic root, engaged left main, took standard views, exchanged for 6-Italian JR4 catheter and c ould not find the RCA and then exchanged for 6-Italian 3DRC catheter and the RCA was very small for th e catheter to be able to engage, but nonselective injection showed a very small RCA. Then I removed the catheter and the sheath and placed TR band with good hemostasis. Then with the JR4 catheter, the aortic valve was crossed over the wire, measured the LVEDP. Pullback did not record any gradient. Then I removed the catheter and the sheath and placed TR band with good hemostasis. Findings: 1.Left main; very large and normal. 2.LAD; moderate size of proximal 30% stenosis. 3.Left circumflex; is a very large artery. It is the largest artery of the heart and it is dominant . This supplies the entire inferior wall and the lateral wall. 4.RCA, very small, nondominant, no disease. 5.LVEDP is between 10 and 15 mmHg. Conclusion: Mild nonobstructive coronary artery disease. Proximal LAD was 30% stenosed and otherwis e no significant disease. Plan: Medical management. SR/MODL Voice ID: [id number] Report ID: [id number]
[2023-03-09 17:59] VITALS: BP 126/63; O2SAT 94
== END 2023-03-09 18:46 | disposition home or self-care (01) | DRG 287 ==
LOC: ER 22:58 → ERHOLD 03-07 01:19 → 2ND 03-07 13:20 → OBSVTOIN 03-08 15:34
PROVIDERS: ADMIT Internal Medicine; ATTEND Hospitalist
PROC: B2111ZZ Fluoroscopy of Multiple Coronary Arteries using Low Osmolar Contrast (ICD-10-PCS; principal; 2023-03-09)
PROC: 4A023N7 Measurement of Cardiac Sampling and Pressure, Left Heart, Percutaneous Approach (ICD-10-PCS; 2023-03-09)
DX: R07.9 Chest pain, unspecified (principal); I50.32 Chronic diastolic (congestive) heart failure; I13.0 Hypertensive heart and chronic kidney disease with heart failure and stage 1 through stage 4 chronic kidney disease, or unspecified chronic kidney disease; N18.31 Chronic kidney disease, stage 3a; E03.9 Hypothyroidism, unspecified; G89.29 Other chronic pain; M19.09 Primary osteoarthritis, other specified site; E78.5 Hyperlipidemia, unspecified; M79.7 Fibromyalgia; I48.0 Paroxysmal atrial fibrillation; M81.0 Age-related osteoporosis without current pathological fracture; G25.81 Restless legs syndrome; E55.9 Vitamin D deficiency, unspecified; F03.90 Unspecified dementia, unspecified severity, without behavioral disturbance, psychotic disturbance, mood disturbance, and anxiety; I25.10 Atherosclerotic heart disease of native coronary artery without angina pectoris; Z88.5 Allergy status to narcotic agent; Z88.2 Allergy status to sulfonamides; Z79.01 Long term (current) use of anticoagulants; Z86.73 Personal history of transient ischemic attack (TIA), and cerebral infarction without residual deficits; Z90.710 Acquired absence of both cervix and uterus; Z79.890 Hormone replacement therapy; Z79.899 Other long term (current) drug therapy; Z96.643 Presence of artificial hip joint, bilateral
CPT/HCPCS: 36415; 71045; 76937; 78452; 80048; 80076; 83735; 84484; 85025; 93005; 93017; 93454; 99152; 99153; 99285; A9500; C1893; G0378; J1170; J1644; J1650; J2001; J2250; J2785; J3010; J7040; J7042; Q9967

== ENCOUNTER 2023-12-04 16:20 | Emergency (ER) | payer OTHER ==
[2023-12-04] MEDS ORDERED: ACETAMINOPHEN 500 MG TAB ONE ×2 (16:41→18:35)
[2023-12-04 17:17] LABS: Absolute Eosinophils 0.1 K/uL (0-0.5); Absolute Lymphocytes (CBC) 1.7 K/uL (0.7-4.9); Absolute Monocytes 0.6 K/uL (0.1-1.3); Absolute Neutrophil 4.5 K/uL (1.8-8.0); Basophils % 0.6 % (0-1.3); Eosinophils % 1.7 % (0-4.4); Hematocrit 29.7 % (36.0-45.0); Hemoglobin 9.1 g/dL (12.0-15.0); MCH 22.9 pg (27.0-35.0); MCHC 30.8 g/dL (32.0-36.0); MCV 74.4 fL (80-100); MPV 8.1 fL (7.6-11.3); Monocytes % 9.2 % (3.3-12.3); Neutrophils % 64.5 % (41.7-73.7); Platelets 215 thou/uL (152-406); RBC Red Blood Cell Count 3.99 M/uL (3.86-4.86); Red Cell Distribution Width 17.7 % (12.1-15.2)
--- NOTE | 2023-12-04 17:17 | RAD REPORT ---
EXAM DESCRIPTION: Simone Single View12/04/2023 5:01 pm CLINICAL HISTORY: Chest pain COMPARISON: 2022 FINDINGS: The lungs appear clear of acute infiltrate. The heart is mildly enlarged IMPRESSION: No acute abnormalities displayed
[2023-12-04 17:33] LABS: Anion Gap 8.3 mEq/L (5.0-15.0); Magnesium 1.8 mg/dL (1.6-2.4); Potassium 3.3 mEq/L (3.5-5.1); Troponin High Sensitivity 6.3 pg/mL (<58.9)
--- NOTE | 2023-12-04 18:10 | RAD REPORT ---
EXAM DESCRIPTION: CT - Head Brain Wo Cont - 12/04/2023 5:53 pm CLINICAL HISTORY: Head injury status post fall. Left arm weakness COMPARISON: December 2023 TECHNIQUE: Computed axial tomography of the head was obtained. IV contrast was not requested. All CT scans are performed using dose optimization technique as appropriate and may include automated exposure control or mA/KV adjustment according to patient size. FINDINGS: An intracranial bleed is not seen The ventricles are normal in caliber No extra-axial fluid collection is noted. No significant type density within the brain is seen Fluid within the sinuses/ mastoids is not seen. IMPRESSION: No acute intracranial abnormality is seen If patient's symptoms persist MRI of the brain would be recommended
[2023-12-04] MEDS ORDERED: KETOROLAC 30 MG/ML INJ ONE (18:57)
--- NOTE | 2023-12-04 19:17 | EDPHYS ---
Physician Documentation [facility] Name: Emma Rico Age: 73 yrs Sex: Female : 1950 Arrival Date: 12/04/2023 Time: 16:20 Bed 7 Private MD: ED Physician Lindsey Gonzalez HPI: 12/03 18:13 This 73 yrs old Female presents to ER via EMS with complaints of Arm Pain, Fall Injury. kb 18:13 Pt is a 73 year old female who presents for chest pain and tingling/decreased ROM of kb bilateral upper extremities that started yesterday. Denies shortness of breath. States chest pain radiates down left arm intermittently. Pt did fall backwards 3 days ago, but denies any injuries from fall, loc, head injury. . Historical: - Allergies: 16:33 Codeine; ph 16:33 Morphine; ph 16:33 Sulfa (Sulfonamide Antibiotics); ph - PMHx: 16:33 Cerebrovascular accident; Chronic pain; Dementia; Depression; fentanyl pain pump; ph Hypertension; Hypothyroidism; - PSHx: 16:33 back; hysterectomy; Left hip; pain pump placed; Right hip; ph - Immunization history:: Adult Immunizations unknown. - Infectious Disease History:: Denies. - Immunization history: Last tetanus immunization: unknown. - Social history:: Smoking status: Patient denies any tobacco usage or history of. ROS: 18:11 Constitutional: As per HPI kb Exam: 18:11 Constitutional: This is a well developed, well nourished patient who is awake, alert, kb and in no acute distress. Head/Face: Normocephalic, atraumatic. ENT: Moist Mucous membranes Cardiovascular: Regular rate Respiratory: Respirations even and unlabored. No increased work of breathing. Talking in full sentences Abdomen/GI: Soft, non-tender. No distention Skin: Warm, dry with normal turgor. Normal color. MS/ Extremity: Pulses equal, no cyanosis. Neurovascular intact. Full, normal range of motion. Neuro: Awake and alert, GCS 15, oriented to person, place, time, and situation. Moves all extremities. Normal gait. 18:21 ECG was reviewed by the Attending Physician. Vital Signs: 16:30 BP 122 / 69; Pulse 62; Resp 18; Temp 97.1; Pulse Ox 95% on R/A; Weight 94.35 kg; Height ph 5 ft. 3 in. ; 17:30 BP 111 / 52; Pulse 58; Resp 16; Pulse Ox 95% on R/A; ph 18:41 BP 105 / 56; Pulse 55; Resp 18; Pulse Ox 95% on R/A; ph 19:42 BP 117 / 61; Pulse 51; Resp 17 S; Pulse Ox 96% on R/A; ha1 16:30 Body Mass Index 36.85 (94.35 kg, 160.02 cm) ph Gaurav Coma Score: 16:36 Eye Response: spontaneous(4). Motor Response: obeys commands(6). Verbal Response: ph oriented(5). Total: 15. Trauma Score (Adult): 16:36 Eye Response: spontaneous(1); Verbal Response: oriented(1); Motor Response: obeys ph commands(2); Systolic BP: > 89 mm Hg(4); Respiratory Rate: 10 to 29 per min(4); [place] Score: 15; Trauma Score: 12 MDM: 16:32 Patient medically screened. 17:27 Data reviewed: vital signs, nurses notes. Historians other than the Patient: EMS: [facility]. 18:23 Differential diagnosis: acute OR, abnormal ekg. Consideration of Admission/Observation Escalation of care including admission/observation considered. admission considered and recommended but pt does not want to stay in the hospital. States she would like to go home since initial workup is normal. Will repeat troponin. 19:16 Counseling: I had a detailed discussion with the patient and/or guardian regarding the historical points, exam findings, and any diagnostic results supporting the discharge/admit diagnosis, lab results, radiology results, the need for outpatient follow up, a family practitioner, to return to the emergency department if symptoms worsen or persist or if there are any questions or concerns that arise at home. 12/03 16:47 Order name: Basic Metabolic Panel; Complete Time: 17:45 kb 12/03 16:47 Order name: CBC with Diff; Complete Time: 17:27 kb 12/03 16:47 Order name: Magnesium; Complete Time: 17:45 kb 12/03 16:47 Order name: Troponin HS; Complete Time: 17:45 kb 12/03 18:43 Order name: Troponin High Sensitivity; Complete Time: 19:15 kb 12/03 16:47 Order name: XRAY Chest (1 view); Complete Time: 17:19 kb 12/03 16:47 Order name: CT Head Brain wo Cont; Complete Time: 18:11 kb 12/03 16:47 Order name: EKG; Complete Time: 16:48 kb 12/03 16:47 Order name: Cardiac monitoring; Complete Time: 16:59 kb 12/03 16:47 Order name: EKG - Nurse/Tech; Complete Time: 16:59 kb 12/03 16:47 Order name: IV Saline Lock; Complete Time: 17:10 kb 12/03 16:47 Order name: Labs collected and sent; Complete Time: 17:10 kb 12/03 16:47 Order name: O2 Per Protocol; Complete Time: 16:54 kb 12/03 16:47 Order name: O2 Sat Monitoring; Complete Time: 16:54 kb EC:21 Rate is 56 beats/min. Rhythm is regular. QRS [place] is Normal. [place] interval is normal at kb 178 msec. QRS interval is normal at 102 msec. QT interval is normal at 443 msec. Administered Medications: 18:36 Drug: Acetaminophen PO 1000 mg PO once Route: PO; tm6 18:50 Follow up: Response: No adverse reaction ph 19:07 Follow up: Response: No adverse reaction tm6 19:07 Drug: Ketorolac IVP 15 mg IVP once Route: IVP; Site: right antecubital; tm6 19:45 Follow up: Response: No adverse reaction; Marked relief of symptoms; Pain is decreased ha1 Disposition Summary: 12/04/23 19:16 Discharge Ordered Notes: Location: Home kb Condition: Stable kb Diagnosis - Chest pain, unspecified kb Followup: kb - With: Emergency Department - When: As needed - Reason: Worsening of condition Followup: kb - With: Private Physician - When: 2 - 3 days - Reason: Recheck today's complaints, Continuance of care, Re-evaluation by your physician Discharge Instructions: - Discharge Summary Sheet kb - Nonspecific Chest Pain, Adult, Klvc-au-Fvie kb Forms: - Medication Reconciliation Form kb - Antibiotic Education kb - Prescription Opioid Use kb - Patient Portal Instructions kb - Leadership Thank You Letter kb Signatures: Dispatcher [employer] Martine Nicholas, ALL-Deanne CARRIZALES-Adrianna Hoff RN RN Carmelina Chapa RN RN tm6 Fadia Martinez RN ha1 Corrections: (The following items were deleted from the chart) 19:16 18:23 Consideration of Admission/Observation Escalation of care including kb admission/observation considered. admission considered but pt does not want to stay in the hospital. States she would like to go home since initial workup is normal. Will repeat troponin. kb
--- NOTE | 2023-12-04 19:17 | ER ---
Nurse's Notes [facility] Name: Emma Rico Age: 73 yrs Sex: Female : 1950 Arrival Date: 12/04/2023 Time: 16:20 Bed 7 Private MD: Diagnosis: Chest pain, unspecified Presentation: 12/03 16:30 Chief complaint: EMS states: Tripped and fell while ambulating w/ walker 3 days ago, ph states, " The brakes locked up", c/o pain to L arm, bruising noted to RL leg, states that she has been able to ambulate since fall, does take blood thinners, no LOC, is unsure if she hit her head. Coronavirus screen: Vaccine status: Patient reports receiving the 2nd dose of the covid vaccine. Ebola Screen: No symptoms or risks identified at this time. Initial Sepsis Screen: Does the patient meet any 2 criteria? No. Patient's initial sepsis screen is negative. Does the patient have a suspected source of infection? No. Patient's initial sepsis screen is negative. Risk Assessment: Do you want to hurt yourself or someone else? Patient reports no desire to harm self or others. Onset of symptoms was December 04, 2023. 16:30 Method Of Arrival: EMS: [facility] 16:30 Acuity: LENNY 4 ph 16:36 Care prior to arrival: None. Mechanism of Injury: Fall from standing position. Trauma ph event details: Injury occurred in the [facility] [place], Injury occurred: at home. Injury occurred: December 01, 2023. 16:49 Acuity: LENNY 3 ph Triage Assessment: 16:34 General: Appears in no apparent distress. Behavior is calm, cooperative. Pain: ph Complains of pain in left arm. Neuro: Level of Consciousness is awake, alert, obeys commands, Oriented to person, place, time, situation. Cardiovascular: Capillary refill < 3 seconds in bilateral fingers Patient's skin is warm and dry. Respiratory: Airway is patent Respiratory effort is even, unlabored, Respiratory pattern is regular, symmetrical. Musculoskeletal: Circulation, motion, and sensation intact. Range of motion: intact in all extremities. Injury Description: Bruise sustained to right gamboa is purple. Historical: - Allergies: 16:33 Codeine; ph 16:33 Morphine; ph 16:33 Sulfa (Sulfonamide Antibiotics); ph - PMHx: 16:33 Cerebrovascular accident; Chronic pain; Dementia; Depression; fentanyl pain pump; ph Hypertension; Hypothyroidism; - PSHx: 16:33 back; hysterectomy; Left hip; pain pump placed; Right hip; ph - Immunization history:: Adult Immunizations unknown. - Infectious Disease History:: Denies. - Immunization history: Last tetanus immunization: unknown. - Social history:: Smoking status: Patient denies any tobacco usage or history of. Screenin:[address] [facility] ED Fall Risk Assessment (Adult) History of falling in the last 3 months, ph including since admission Yes- single mechanical fall (1 pt) Confusion or Disorientation No (0 pts) Intoxicated or Sedated No (0 pts) Impaired Gait No (0 pts) Mobility Assist Device Used Yes (1 pt) Altered Elimination No (0 pt) Score/Fall Risk Level 0 - 2 = Low Risk Oriented to surroundings, Maintained a safe environment, Hourly rounding (assess needs \\T\\ fall precautionary measures) done, Used ambulatory aids as needed (educated on \\T\\ assisted with). Abuse screen: Denies threats or abuse. Denies injuries from another. Nutritional screening: No deficits noted. Tuberculosis screening: No symptoms or risk factors identified. Primary Survey: 16:35 NO uncontrolled hemorrhage observed. A: The client is awake and alert. The airway is ph patent. Breathing/Chest: Spontaneous respiratory effort, equal unlabored respirations, breath sounds clear bilaterally, regular pattern, symmetrical chest rise and fall. Circulation: No external hemorrhage present. Regular and strong central pulse, skin warm/dry/normal color. Disability Pupils are equal, round, reactive to light and accommodation. Exposure/Environment: There is no evidence of uncontrolled external bleeding. Obvious injury(ies) are noted at this time: bruising to lower extremities A warming method has been applied: A warm blanket has been provided to the patient. Assessment: 16:58 General: Appears uncomfortable, Behavior is calm, cooperative. Pain: Complains of pain tm6 in right leg and right gamboa and left arm. Neuro: Level of Consciousness is awake, alert, obeys commands, Oriented to person, place, time, situation. Cardiovascular: Patient's skin is warm and dry. Respiratory: Airway is patent Respiratory effort is even, unlabored, Respiratory pattern is regular, symmetrical. GI: No signs and/or symptoms were reported involving the gastrointestinal system. Abdomen is round non-distended. : No signs and/or symptoms were reported regarding the genitourinary system. EENT: No signs and/or symptoms were reported regarding the EENT system. Derm: No signs and/or symptoms reported regarding the dermatologic system. Musculoskeletal: Reports pain in left arm. 17:33 Reassessment: Patient appears in no apparent distress at this time. Patient and/or ph family updated on plan of care and expected duration. Pain level reassessed. Patient is alert, oriented x 3, equal unlabored respirations, skin warm/dry/pink. 19:42 Reassessment: Patient and/or family updated on plan of care and expected duration. Pain ha1 level reassessed. Patient is alert, oriented x 3, equal unlabored respirations, skin warm/dry/pink. Patient denies pain at this time. Patient states feeling better. Patient states symptoms have improved. Vital Signs: 16:30 BP 122 / 69; Pulse 62; Resp 18; Temp 97.1; Pulse Ox 95% on R/A; Weight 94.35 kg; Height ph 5 ft. 3 in. ; 17:30 BP 111 / 52; Pulse 58; Resp 16; Pulse Ox 95% on R/A; ph 18:41 BP 105 / 56; Pulse 55; Resp 18; Pulse Ox 95% on R/A; ph 19:42 BP 117 / 61; Pulse 51; Resp 17 S; Pulse Ox 96% on R/A; ha1 16:30 Body Mass Index 36.85 (94.35 kg, 160.02 cm) ph Waterloo Coma Score: 16:36 Eye Response: spontaneous(4). Motor Response: obeys commands(6). Verbal Response: ph oriented(5). Total: 15. Trauma Score (Adult): 16:36 Eye Response: spontaneous(1); Verbal Response: oriented(1); Motor Response: obeys ph commands(2); Systolic BP: > 89 mm Hg(4); Respiratory Rate: 10 to 29 per min(4); [place] Score: 15; Trauma Score: 12 ED Course: 16:30 Patient arrived in ED. ph 16:32 Martine Peters FNP-C is [facility]. kb 16:32 Lindsey Gonzalez MD is Attending Physician. kb 16:33 Triage completed. ph 16:34 Arm band placed on Patient placed in an exam room, on a stretcher, on pulse oximetry. ph 16:35 Patient maintains SpO2 saturation greater than 95% on room air. Thermoregulation: warm ph blanket given to patient. 16:37 Patient has correct armband on for positive identification. Bed in low position. Call ph light in reach. Side rails up X2. Pulse ox on. NIBP on. Door closed. Noise minimized. Warm blanket given. Pillow given. 16:[address], RN is Primary Nurse. ph 17:00 EKG done, by ED staff, reviewed by Martine GOLDEN. tm6 17:02 XRAY Chest (1 view) In Process Unspecified. EDMS 17:10 Basic Metabolic Panel Sent. tm6 17:10 CBC with Diff Sent. tm6 17:10 Magnesium Sent. tm6 17:10 Troponin HS Sent. tm6 17:10 Inserted saline lock: 20 gauge in right antecubital area, using aseptic technique. tm6 Blood collected. Flushed with 10 mL NS. 17:54 CT Head Brain wo Cont In Process Unspecified. EDMS 18:33 Assisted to bedside commode. tm6 19:44 No provider procedures requiring assistance completed. IV discontinued, intact, ha1 bleeding controlled, No redness/swelling at site. Pressure dressing applied. 19:45 Provided Education on: follow up with cardiology . ha1 Administered Medications: 18:36 Drug: Acetaminophen PO 1000 mg PO once Route: PO; tm6 18:50 Follow up: Response: No adverse reaction ph 19:07 Follow up: Response: No adverse reaction tm6 19:07 Drug: Ketorolac IVP 15 mg IVP once Route: IVP; Site: right antecubital; tm6 19:45 Follow up: Response: No adverse reaction; Marked relief of symptoms; Pain is decreased ha1 Medication: 16:35 VIS not applicable for this client. ph Outcome: 19:16 Discharge ordered by . lissa 19:44 Discharged to home via wheelchair, with family, ha1 19:44 Condition: stable 19:44 Discharge instructions given to patient, family, Instructed on discharge instructions, follow up and referral plans. Demonstrated understanding of instructions, follow-up care, 19:45 Patient left the ED. ha1 Signatures: Dispatcher [employer] EDMS Martine Peters FNP-C ATM MECHANIC-CkAdrianna Reyes, RN RN ph Fadia Martinez, RN RN ha1 Carmelina Amaro, RN RN tm6
[2023-12-04 19:49] VITALS: TEMP 97.1
[2023-12-04 19:54] VITALS: BP 117/61; O2SAT 96
--- NOTE | 2023-12-06 12:57 | EKG ---
Test Date: 2023-12-04 Test Time: 16:55:30 Enamel Applier: [place] MEASUREMENT RESULTS: Intervals: Rate: 56 NM: 178 QRSD: 102 QT: 460 QTc: 443 [place]: P: 39 NM: 178 QRS: -79 T: 49 INTERPRETIVE STATEMENTS: Sinus bradycardia Low voltage QRS Incomplete right bundle branch block Left anterior fascicular block Possible Anterolateral infarct, age undetermined Abnormal ECG Compared to ECG 03/06/2023 23:08:40 Incomplete right bundle-branch block now present Left anterior fascicular block now present Myocardial infarct finding now present Left-axis deviation no longer present Electronically Signed On 12-06-23 12:55:30 CDT by Barrington Ratliff
== END 2023-12-04 19:45 | disposition home or self-care (01) ==
LOC: ER 16:20
DX: R07.9 Chest pain, unspecified (principal); R53.1 Weakness; Z86.73 Personal history of transient ischemic attack (TIA), and cerebral infarction without residual deficits; Z97.8 Presence of other specified devices
CPT/HCPCS: 36415; 70450; 71045; 80048; 83735; 84484; 85025; 93005; 96374; 99285

== ENCOUNTER 2024-04-01 09:37 | Inpatient (IN) | payer OTHER ==
--- NOTE | 2024-04-01 10:15 | RAD REPORT ---
EXAM: CT brain without contrast HISTORY: CONFUSED COMPARISON: 12/04/2023 TECHNIQUE: Multiple contiguous axial images were obtained and a CT of the brain without contrast. Sag ittal and coronal reformats were performed. One or more of the following dose reduction techniques were used: Automated exposure control, adjust ment of the mA and/or kV according to patient size, and/or iterative reconstruction. FINDINGS: No evidence of hydrocephalus, intracranial hemorrhage, or extra-axial fluid collection. The brain is normal in morphology. No evidence of midline shift or areas of brain edema. The calvarium is intact. The visualized paranasal sinuses and mastoid air cells are essentially clear . IMPRESSION: No evidence of acute intracranial abnormality.
[2024-04-01] MEDS ORDERED: Meropenem 1000 MG/VIAL IV ONE (10:45)
[2024-04-01] MEDS ORDERED: FOLIC ACID 5 MG/ML VIAL ONE (10:45)
[2024-04-01] MEDS ORDERED: NA CHLORIDE 0.9% 100 ML ONE (10:46)
[2024-04-01] MEDS ORDERED: NA CHLORIDE 0.9% 2,000 ML ONE (10:46)
--- NOTE | 2024-04-01 10:52 | RAD REPORT ---
EXAMINATION: CAROTID DUPLEX ULTRASOUND CLINICAL INDICATION: MENTAL STATUS CHANGE TECHNIQUE: Real-time grayscale, color flow and spectral Doppler sonographic images were obtained of t he extracranial carotid system using a linear transducer. COMPARISON: No prior exam. FINDINGS: RIGHT: Common carotid artery: 116 cm/s Internal carotid artery: 95 cm/s External carotid artery: 214 cm/s Right ICA/CCA ratio: 0.8 Plaque: No significant plaquing seen. Vertebral artery Antegrade LEFT: Common carotid artery: 140 cm/s Internal carotid artery: 155 cm/s External carotid artery: 130 cm/s Left ICA/CCA ratio: 1.1 Plaque: No significant plaquing seen. Vertebral artery Antegrade IMPRESSION: No hemodynamically significant stenosis (greater than 50%) within the extracranial internal carotid a rteries. The degrees of stenosis, if any, are quantified according to the consensus statement of the Society o f Radiologists in Ultrasound (SRUS). Please refer to Jarod E, Tee C, Nidia G et al. Carotid Artery Stenosis: Nguyen-Scale and Doppler US Diagnosis--Society of Radiologists in Ultrasound Consensus Conference. Radiology. 2003;229(2):340-6.
--- NOTE | 2024-04-01 10:55 | RAD REPORT ---
EXAMINATION: ONE VIEW CHEST XR CLINICAL INDICATION: COUGH TECHNIQUE: Frontal chest projection is submitted. Examination is limited by patient positioning and t echnique. COMPARISON: 12/04/2023 FINDINGS: Moderate bilateral pulmonary opacities are present. The heart is upper limit of normal in size. No di splaced fractures identified. IMPRESSION: Moderate CHF versus volume overload pattern.
[2024-04-01 11:13] LABS: Absolute Eosinophils 0.2 K/uL (0-0.5); Absolute Lymphocytes (CBC) 1.1 K/uL (0.7-4.9); Absolute Monocytes 0.6 K/uL (0.1-1.3); Absolute Neutrophil 9.1 K/uL (1.8-8.0); Basophils % 0.2 % (0-1.3); Eosinophils % 1.4 % (0-4.4); Hematocrit 26.7 % (36.0-45.0); Hemoglobin 8.2 g/dL (12.0-15.0); Lymphocytes % 10.3 % (15.3-44.8); MCH 21.8 pg (27.0-35.0); MCHC 30.5 g/dL (32.0-36.0); MCV 71.4 fL (80-100); MPV 7.9 fL (7.6-11.3); Monocytes % 5.6 % (3.3-12.3); Neutrophils % 82.5 % (41.7-73.7); Platelets 237 thou/uL (152-406); RBC Red Blood Cell Count 3.75 M/uL (3.86-4.86); Red Cell Distribution Width 18.3 % (12.1-15.2)
[2024-04-01 11:15] LABS: Blood Morphology Comment NOTED (NOT SEEN); Hypochromasia 1+; Platelet Estimate ADEQ; White Blood Cell Scan OK (OK)
[2024-04-01 11:23] LABS: PT Prothrombin Time 18.6 SECONDS (9.4-12.5); PTT, Activated Partial Thromb 35.6 SECONDS (24.3-36.9); Protime INR 1.69
[2024-04-01 11:37] LABS: ALT/SGPT 17 U/L (13-56); AST/SGOT 23 U/L (15-37); Albumin 2.2 g/dL (3.4-5.0); Albumin/Globulin Ratio 0.6 (1.1-1.8); Alkaline Phosphatase 85 U/L (45-117); Anion Gap 9.8 mEq/L (5.0-15.0); BUN Blood Urea Nitrogen 12 mg/dL (7-18); Bicarbonate 24 mEq/L (21-32); Bilirubin Total 0.3 mg/dL (0.2-1.0); Globulin 3.9 g/dL (2.3-3.5); Glomerular Filtration Rate 45 ml/min (=/>90); Glucose Level 98 mg/dL (74-106); Lipase 10 U/L (13-75); Magnesium 1.8 mg/dL (1.6-2.4); NT PRO-BNP 52 pg/mL (<125); Potassium 3.8 mEq/L (3.5-5.1); Protein, Total 6.1 g/dL (6.4-8.2); Sodium Level 141 mEq/L (136-145); Troponin High Sensitivity 19.1 pg/mL (<58.9)
[2024-04-01 11:41] LABS: Bilirubin Direct < 0.2 mg/dL (0-0.2); Bilirubin Indirect, Calculated 0.1 mg/dL (0.2-0.8)
[2024-04-01 11:46] LABS: Sqamous Epithelial <5 /HPF (None Seen); Urine Bacteria None Seen /HPF (<20); Urine Bilirubin NEGATIVE (Negative); Urine Blood Trace (Negative); Urine Clarity Turbid (Clear); Urine Color Yellow (Yellow); Urine Culture Reflex Order NOT NEEDED; Urine Glucose NEGATIVE (Negative); Urine Ketones NEGATIVE (Negative); Urine Microscopic Reflex YN ORDER UMIC; Urine Mucus Slight /HPF (None Seen); Urine Nitrite 2+ (Negative); Urine Protein NEGATIVE (Negative); Urine RBC <5 /HPF (None Seen); Urine Urobilinogen Normal (Normal); Urine WBC <5 /HPF (<5); Urine pH 5.5 (5.0-7.0)
[2024-04-01] MEDS ORDERED: HYDROCORTISONE SUC 100 MG INJ ONE (11:56)
[2024-04-01] MEDS ORDERED: NA CHLORIDE 0.9% 1,000 ML ONE ×2 (12:50→16:43)
--- NOTE | 2024-04-01 12:58 | ER ---
Nurse's Notes [facility] Name: Emma Rico Age: 73 yrs Sex: Female : 1950 Arrival Date: 04/01/2024 Time: 09:37 Bed 19 Private MD: Diagnosis: Anemia, unspecified;Fever, unspecified;Severe sepsis with septic shock;Acute cystitis;Altered mental status, unspecified;Morbid (severe) obesity due to excess calories;Pneumonia due to other specified bacteria-BILATERAL Presentation: 04/01 09:50 Chief complaint: EMS states: Family reports AMS and fever upon waking today. BP 95/50, hb HR 100, BGL 101, T 101.4, Ofirmev 1 Gm administered to 18g RAC LOAN REVIEW ANALYST. Coronavirus screen: Client presents with at least one sign or symptom that may indicate coronavirus-19. Provider contacted for isolation considerations. Ebola Screen: No symptoms or risks identified at this time. Initial Sepsis Screen: Does the patient meet any 2 criteria? No. Patient's initial sepsis screen is negative. Does the patient have a suspected source of infection? No. Patient's initial sepsis screen is negative. Risk Assessment: Do you want to hurt yourself or someone else? Patient reports no desire to harm self or others. Onset of symptoms was April 01, 2024. 09:50 Method Of Arrival: EMS: [facility] hb 09:50 Acuity: LENNY 2 hb Historical: - Allergies: 10:11 Codeine; hb 10:11 Morphine; hb 10:11 Sulfa (Sulfonamide Antibiotics); hb - PMHx: 10:11 Chronic pain; Depression; Dementia; Cerebrovascular accident; Hypertension; hb Hypothyroidism; fentanyl pain pump; - PSHx: 10:11 Left hip; hysterectomy; pain pump placed; back; Right hip; hb - Immunization history:: Flu vaccine status is unknown. - Infectious Disease History:: Denies. - Social history:: Smoking status: unknown. Screenin:10 [facility] ED Fall Risk Assessment (Adult) History of falling in the last 3 months, tm6 including since admission No falls in past 3 months (0 pts) Confusion or Disorientation Yes (5 pts) Intoxicated or Sedated No (0 pts) Impaired Gait No (0 pts) Mobility Assist Device Used No (0 pt) Altered Elimination Yes (1 pt) Score/Fall Risk Level 3 or more points = High Risk Oriented to surroundings, Maintained a safe environment, Educated pt \T\ family on fall prevention, incl call for assistance when getting out of bed, Assessed \T\ reinforced patient's understanding of fall precautions. Abuse screen: Denies threats or abuse. Denies injuries from another. Nutritional screening: No deficits noted. Tuberculosis screening: No symptoms or risk factors identified. Assessment: 11:10 General: Appears ill, Behavior is calm, cooperative. Pain: Complains of pain in left tm6 arm Pain currently is 4 out of 10 on a pain scale. Neuro: Level of Consciousness is awake, alert, obeys commands, Oriented to person. Cardiovascular: Patient's skin is warm and dry. Rhythm is sinus rhythm. Respiratory: Airway is patent Respiratory effort is even, unlabored, Respiratory pattern is regular, symmetrical. GI: No signs and/or symptoms were reported involving the gastrointestinal system. Abdomen is round non-distended. : No signs and/or symptoms were reported regarding the genitourinary system. EENT: No signs and/or symptoms were reported regarding the EENT system. Derm: Skin temperature is hot. Musculoskeletal: Reports pain in left arm. 13:24 Reassessment: Patient and/or family updated on plan of care and expected duration. Pain tm6 level reassessed. Patient is alert, oriented x 3, equal unlabored respirations, skin warm/dry/pink. 18:10 Reassessment: report faxed to 2nd, called x2, no answer. tm6 Vital Signs: 09:50 BP 94 / 52; Pulse 105; Resp 20; Temp 102.2(O); Pulse Ox 90% on R/A; hb 10:30 BP 86 / 51; Pulse 80; Pulse Ox 94% on 3 lpm NC; MAP 56 mmHg; tm6 10:43 Weight 90.72 kg; tm6 10:45 BP 93 / 58; Pulse 80; Pulse Ox 94% on 3 lpm NC; MAP 67 mmHg; tm6 11:56 BP 79 / 50; Pulse 69; Temp 100.1(O); Pulse Ox 98% on 3 lpm NC; MAP 61 mmHg; tm6 12:56 BP 96 / 54; Pulse 67; Pulse Ox 97% on 2 lpm NC; MAP 66 mmHg; tm6 13:23 BP 108 / 60; Pulse 68; Pulse Ox 97% on 2 lpm NC; MAP 75 mmHg; tm6 13:58 BP 123 / 61; Pulse 74; Pulse Ox 98% on 2 lpm NC; MAP 78 mmHg; tm6 15:40 BP 99 / 56; Pulse 61; Pulse Ox 98% on 2 lpm NC; MAP 68 mmHg; tm6 19:08 BP 116 / 64; Pulse 64; Resp 18; Pulse Ox 100% on 3 lpm NC; Pain 0/10; rg5 19:08 Pain Scale: Adult rg5 ED Course: 09:42 Patient arrived in ED. martin 09:47 Lamonte Geller MD is Attending Physician. martin 10:02 Client placed on continuous cardiac and pulse oximetry monitoring. NIBP monitoring hb applied. cardiac monitor technician on. Pulse ox on. NIBP on. 10:[address] via stretcher. hb 10:07 XRAY Chest (1 view) In Process Unspecified. EDMS 10:08 CT Head Brain wo Cont In Process Unspecified. EDMS 10:11 Triage completed. hb 10:26 Carmelina Amaro, RN is Primary Nurse. tm6 10:32 US Carotid Artery Bilateral In Process Unspecified. EDMS 11:06 Lactate w/ 2H reflex if indic. Sent. tm6 11:07 Ptt, Activated Sent. tm6 11:07 Lipase Sent. tm6 11:07 Basic Metabolic Panel Sent. tm6 11:07 CBC with Diff Sent. tm6 11:07 LFT's Sent. tm6 11:07 Magnesium Sent. tm6 11:07 NT PRO-BNP Sent. tm6 11:07 PT-INR Sent. tm6 11:07 Troponin HS Sent. tm6 11:07 EKG done, by ED staff, reviewed by Lamonte Geller MD. Missed attempt(s): 22 gauge in tm6 left forearm. Maintain EMS IV. Dressing intact. Good blood return noted. Site clean \T\ dry. Gauge \T\ site: 18g RAC. Flushed with 10 mL NS. Oxygen administration via nasal cannula \T\ 3L/min. 11:10 Patient has correct armband on for positive identification. Bed in low position. Call tm6 light in reach. Side rails up X2. Provided Education on: use of call posadas. 11:17 Inserted saline lock: 22 gauge in left forearm, using aseptic technique. Blood em1 collected. Flushed with 10 mL NS. 11:17 First set of blood cultures drawn by me. em1 12:56 Aldo Cabello MD is Hospitalizing Provider. [facility] 13:15 COVID swab sent to lab. Flu and/or RSV swab sent to lab. Strep swab sent to lab. T\T\S tm3 collected, blood band applied to patient. 18:53 Arm band placed on. tm6 18:53 No provider procedures requiring assistance completed. Patient admitted, IV remains in tm6 place. Administered Medications: 10:45 Drug: NS 0.9% IV (30 ml/kg) 30 ml/kg IV at bolus once; Sepsis Protocol; to be given as tm6 a bolus over 90 minutes Route: IV; Rate: bolus; Site: right antecubital; 11:30 Follow up: Response: No adverse reaction; IV Status: Completed infusion; IV Intake: tm6 2721.6ml 11:30 Drug: Meropenem IV 1 grams IV at per protocol once; (mix in NS 100 mL) Route: IV; Rate: tm6 per protocol; Site: right antecubital; 12:07 Follow up: Response: No adverse reaction; IV Status: Completed infusion; IV Intake: tm6 100ml 11:30 Drug: foLIC Acid IVPB 1 mg IVPB once Route: IVPB; Site: right antecubital; tm6 12:07 Follow up: Response: No adverse reaction; IV Status: Completed infusion; IV Intake: tm6 0.2ml 12:01 Drug: Solu-CORTEF IVP 100 mg IVP once Route: IVP; Site: left forearm; tm6 12:54 Follow up: Response: No adverse reaction tm6 13:22 Drug: vancoMYCIN IVPB 1 grams IVPB once over 2 hrs Route: IVPB; Infused Over: 2 hrs; tm6 Site: right antecubital; 15:22 Follow up: Response: No adverse reaction; IV Status: Completed infusion; IV Intake: tm6 250ml 17:01 Drug: NS 0.9% IV 500 ml 500 ml IV at 1 bolus once; to be given as a bolus over 30 jl7 minutes Volume: 500 ml; Route: IV; Rate: 1 bolus; Site: right antecubital; 19:11 Follow up: IV Status: Completed infusion; IV Intake: 500ml rg5 17:01 Drug: NS 0.9% IV 500 ml 500 ml IV at 125 ml/hr once Volume: 500 ml; Route: IV; Rate: jl7 125 ml/hr; Site: right antecubital; Medication: 11:10 VIS not applicable for this client. tm6 Intake: 11:30 IV: 2722ml; Total: 2722ml. tm6 12:07 IV: 0ml; Total: 2722ml. tm6 12:07 IV: 100ml; Total: 2822ml. tm6 15:22 IV: 250ml; Total: 3072ml. tm6 19:11 IV: 500ml; Total: 3572ml. rg5 Outcome: 12:58 Decision to Hospitalize by Provider. martin 19:09 Admitted to Med/surg accompanied by tech, via stretcher, with oxygen, rg5 19:09 Condition: stable 19:09 Instructed on the need for admit, 19:41 Patient left the ED. rg5 Signatures: Dispatcher [employer] EDMS [place] [employer] tm3 Lamonte Geller MD MD cha Martinez, Eric em1 Jo-Ann Leal, DAVID HERNANDEZ Page Mendez RN RN jl7 Carmelina Amaro RN RN tm6 Louis Cottrell, DAVID RN rg5 Corrections: (The following items were deleted from the chart) 19:11 19:08 BP 97 / 53; Pulse 64bpm; Resp 18bpm; Pulse Ox 100% 3 lpm Nasal Cannula; Pain rg5 0/10, Adult; rg5
--- NOTE | 2024-04-01 12:58 | EDPHYS ---
Physician Documentation [facility] Name: Emma Rico Age: 73 yrs Sex: Female : 1950 Arrival Date: 04/01/2024 Time: 09:37 Bed 19 Private MD: ED Physician Lamonte Geller HPI: 04/01 12:48 This 73 yrs old Female presents to ER via EMS with complaints of Fever, martin Altered Mental Status. 12:48 The patient reports fever, that was measured at 103 degrees Fahrenheit. Onset: The martin symptoms/episode began/occurred just prior to arrival, this morning. Modifying factors: there are no obvious modifying factors. Associated signs and symptoms: Pertinent positives: altered mental status,\E\ chills, cough. Severity of symptoms: At their worst the symptoms were moderate in the emergency department the symptoms are unchanged. The patient has experienced similar episodes in the past, several times. 12:49 The patient or guardian reports cough, flu symptoms, arthralgias, low-grade fever, martin myalgias. Historical: - Allergies: 10:11 Codeine; hb 10:11 Morphine; hb 10:11 Sulfa (Sulfonamide Antibiotics); hb - PMHx: 10:11 Chronic pain; Depression; Dementia; Cerebrovascular accident; Hypertension; hb Hypothyroidism; fentanyl pain pump; - PSHx: 10:11 Left hip; hysterectomy; pain pump placed; back; Right hip; hb - Immunization history:: Flu vaccine status is unknown. - Infectious Disease History:: Denies. - Social history:: Smoking status: unknown. ROS: 12:50 Eyes: Negative for injury, pain, redness, and discharge, ENT: Negative for injury, martin pain, and discharge, Neck: Negative for injury, pain, and swelling, Cardiovascular: Negative for chest pain, palpitations, and edema, Abdomen/GI: Negative for abdominal pain, nausea, vomiting, diarrhea, and constipation, Back: Negative for injury and pain, : Negative for injury, bleeding, discharge, and swelling, MS/Extremity: Negative for injury and deformity, Skin: Negative for injury, rash, and discoloration, Psych: Negative for depression, anxiety, suicide ideation, homicidal ideation, and hallucinations, Allergy/Immunology: Negative for hives, rash, and allergies, Endocrine: Negative for neck swelling, polydipsia, polyuria, polyphagia, and marked weight changes, Hematologic/Lymphatic: Negative for swollen nodes, abnormal bleeding, and unusual bruising, 12:50 Respiratory: Positive for cough, shortness of breath, on exertion. 12:50 Neuro: Positive for altered mental status, dizziness, near syncope, weakness, Exam: 12:54 Head/Face: Normocephalic, atraumatic. Eyes: Pupils equal round and reactive to light, martin extra-ocular motions intact. Lids and lashes normal. Conjunctiva and sclera are non-icteric and not injected. Cornea within normal limits. Periorbital areas with no swelling, redness, or edema. ENT: Nares patent. No nasal discharge, no septal abnormalities noted. Tympanic membranes are normal and external auditory canals are clear. Oropharynx with no redness, swelling, or masses, exudates, or evidence of obstruction, uvula midline. Mucous membranes moist. Neck: Trachea midline, no thyromegaly or masses palpated, and no cervical lymphadenopathy. Supple, full range of motion without nuchal rigidity, or vertebral point tenderness. No Meningismus. Chest/axilla: Normal chest wall appearance and motion. Nontender with no deformity. No lesions are appreciated. Cardiovascular: Regular rate and rhythm with a normal S1 and S2. No gallops, murmurs, or rubs. Normal PMI, no JVD. No pulse deficits. Abdomen/GI: Soft, non-tender, with normal bowel sounds. No distension or tympany. No guarding or rebound. No evidence of tenderness throughout. Back: No spinal tenderness. No costovertebral tenderness. Full range of motion. Female : Normal external genitalia. Skin: Warm, dry with normal turgor. Normal color with no rashes, no lesions, and no evidence of cellulitis. MS/ Extremity: Pulses equal, no cyanosis. Neurovascular intact. Full, normal range of motion., bilateral aka Psych: Awake, alert, with orientation to person, place and time. Behavior, mood, and affect are within normal limits. 12:54 Constitutional: The patient appears febrile, 12:54 ECG was reviewed by the Attending Physician. Vital Signs: 09:50 BP 94 / 52; Pulse 105; Resp 20; Temp 102.2(O); Pulse Ox 90% on R/A; hb 10:30 BP 86 / 51; Pulse 80; Pulse Ox 94% on 3 lpm NC; MAP 56 mmHg; tm6 10:43 Weight 90.72 kg; tm6 10:45 BP 93 / 58; Pulse 80; Pulse Ox 94% on 3 lpm NC; MAP 67 mmHg; tm6 11:56 BP 79 / 50; Pulse 69; Temp 100.1(O); Pulse Ox 98% on 3 lpm NC; MAP 61 mmHg; tm6 12:56 BP 96 / 54; Pulse 67; Pulse Ox 97% on 2 lpm NC; MAP 66 mmHg; tm6 13:23 BP 108 / 60; Pulse 68; Pulse Ox 97% on 2 lpm NC; MAP 75 mmHg; tm6 13:58 BP 123 / 61; Pulse 74; Pulse Ox 98% on 2 lpm NC; MAP 78 mmHg; tm6 15:40 BP 99 / 56; Pulse 61; Pulse Ox 98% on 2 lpm NC; MAP 68 mmHg; tm6 19:08 BP 116 / 64; Pulse 64; Resp 18; Pulse Ox 100% on 3 lpm NC; Pain 0/10; rg5 19:08 Pain Scale: Adult rg5 MDM: 09:43 Medical Screening Exam initiated martin 09:48 Medical Screening Exam initiated martin 12:55 Antibiotic administration: MEREM/ VANCO. Differential diagnosis: obstructed airway, martin tracheal injury, bronchitis, flu, URI, viral Infection, bacterial infection, URI, bronchitis, pneumonia UTI, gastroenteritis, meningitis. Differential Diagnosis altered mental status, sepsis, flu. Data reviewed: vital signs, nurses notes, EMS record, lab test result(s), EKG, radiologic studies, CT scan, plain films. Consideration of Admission/Observation Patient was admitted/placed on observation. Escalation of care including admission/observation considered. I considered the following discharge prescriptions or medication management in the emergency department Medications were administered in the Emergency Department. See MAR. Independent interpretation of the following test(s) in the Emergency Department EKG: See my EKG interpretation above. Test considered but Not performed: Ultrasound NO ABD USG. 14:31 Post IV fluid administration reassessment for Sepsis: Client prescribed 30 mL/kg IVF. [facility] Sepsis focused reassessment complete. 04/01 09:47 Order name: Basic Metabolic Panel; Complete Time: 11:54 [facility] 04/01 09:47 Order name: CBC with Diff; Complete Time: 11:54 [facility] 04/01 09:47 Order name: LFT's; Complete Time: 11:54 [facility] 04/01 09:47 Order name: Magnesium; Complete Time: 11:54 [facility] 04/01 09:47 Order name: NT PRO-BNP; Complete Time: 11:54 [facility] 04/01 09:47 Order name: PT-INR; Complete Time: 11:54 [facility] 04/01 09:47 Order name: Troponin HS; Complete Time: 11:54 [facility] 04/01 09:47 Order name: Lipase; Complete Time: 11:54 [facility] 04/01 09:47 Order name: Urinalysis w/ reflexes: cath; Complete Time: 11:54 [facility] 04/01 09:47 Order name: Blood Culture Adult (2) [facility] 04/01 09:47 Order name: Lactate w/ 2H reflex if indic.; Complete Time: 11:54 [facility] 04/01 09:47 Order name: Ptt, Activated; Complete Time: 11:54 [facility] 04/01 11:15 Order name: CBC Smear Scan; Complete Time: 11:54 [facility] 04/01 12:49 Order name: Type And Screen; Complete Time: 15:33 [facility] 04/01 12:50 Order name: SARS RAPID; Complete Time: 15:33 [facility] 04/01 12:50 Order name: Flu; Complete Time: 15:33 [facility] 04/01 12:50 Order name: Strep [facility] 04/01 19:27 Order name: ABO/RH no charge [facility] 04/01 09:47 Order name: XRAY Chest (1 view); Complete Time: 11:54 [facility] 04/01 09:47 Order name: CT Head Brain wo Cont; Complete Time: 11:54 [facility] 04/01 09:47 Order name: US Carotid Artery Bilateral; Complete Time: 11:54 [facility] 04/01 12:52 Order name: CT Chest Abdomen Pelvis W/O Contrast [facility] 04/01 14:13 Order name: CT; Complete Time: 15:33 [facility] 04/01 09:47 Order name: Cardiac monitoring; Complete Time: 11:07 [facility] 04/01 09:47 Order name: EKG - Nurse/Tech; Complete Time: 11:07 [facility] 04/01 09:47 Order name: IV Saline Lock; Complete Time: 11:13 [facility] 04/01 09:47 Order name: Labs collected and sent; Complete Time: 11:07 [facility] 04/01 09:47 Order name: O2 Per Protocol; Complete Time: 10: martin 04/01 09:47 Order name: O2 Sat Monitoring; Complete Time: : martin EC:54 Rate is 79 beats/min. Rhythm is regular. QRS [place] is Normal. OR interval is normal. QRS martin interval is normal. QT interval is normal. No Q waves. T waves are Normal. No ST changes noted. Clinical impression: NSR w/ Non-specific ST/T Changes and No evidence of ischemia. Interpreted by me. Reviewed by me. Administered Medications: 10:45 Drug: NS 0.9% IV (30 ml/kg) 30 ml/kg IV at bolus once; Sepsis Protocol; to be given as tm6 a bolus over 90 minutes Route: IV; Rate: bolus; Site: right antecubital; 11:30 Follow up: Response: No adverse reaction; IV Status: Completed infusion; IV Intake: tm6 2721.6ml 11:30 Drug: Meropenem IV 1 grams IV at per protocol once; (mix in NS 100 mL) Route: IV; Rate: tm6 per protocol; Site: right antecubital; 12:07 Follow up: Response: No adverse reaction; IV Status: Completed infusion; IV Intake: tm6 100ml 11:30 Drug: foLIC Acid IVPB 1 mg IVPB once Route: IVPB; Site: right antecubital; tm6 12:07 Follow up: Response: No adverse reaction; IV Status: Completed infusion; IV Intake: tm6 0.2ml 12:01 Drug: Solu-CORTEF IVP 100 mg IVP once Route: IVP; Site: left forearm; tm6 12:54 Follow up: Response: No adverse reaction tm6 13:22 Drug: vancoMYCIN IVPB 1 grams IVPB once over 2 hrs Route: IVPB; Infused Over: 2 hrs; tm6 Site: right antecubital; 15:22 Follow up: Response: No adverse reaction; IV Status: Completed infusion; IV Intake: tm6 250ml 17:01 Drug: NS 0.9% IV 500 ml 500 ml IV at 1 bolus once; to be given as a bolus over 30 jl7 minutes Volume: 500 ml; Route: IV; Rate: 1 bolus; Site: right antecubital; 19:11 Follow up: IV Status: Completed infusion; IV Intake: 500ml rg5 17:01 Drug: NS 0.9% IV 500 ml 500 ml IV at 125 ml/hr once Volume: 500 ml; Route: IV; Rate: jl7 125 ml/hr; Site: right antecubital; Disposition Summary: 04/01/24 12:58 Hospitalization Ordered Notes: Hospitalization Status: Inpatient Admission martin Provider: Aldo Cabello cha Location: Telemetry/MedSurg (Inpatient) martin Condition: Fair martin Problem: new martin Symptoms: have improved martin Bed/Room Type: Standard martin Room Assignment: [id number](04/01/24 17:47) jl7 Diagnosis - Anemia, unspecified martin - Fever, unspecified martin - Severe sepsis with septic shock martin - Acute cystitis martin - Altered mental status, unspecified martin - Morbid (severe) obesity due to excess calories martin - Pneumonia due to other specified bacteria - BILATERAL martin Forms: - Medication Reconciliation Form martin - SBAR form martin - Leadership Thank You Letter martin Signatures: Dispatcher [employer] EDLamonte Mauro MD MD cha Baxter, Heather, RN RN hb Leal, Jahala RN RN jl7 Carmelina Amaro RN RN tm6 Louis Cottrell RN rg5 Corrections: (The following items were deleted from the chart) 09:48 09:48 BASIC METABOLIC PANEL+C.LAB.BRZ ordered. EDMS EDMS 09:48 09:48 CBC+H.LAB.BRZ ordered. EDMS EDMS 09:48 09:48 HEPATIC FUNCTION+C.LAB.BRZ ordered. EDMS EDMS 09:48 09:48 MAGNESIUM+C.LAB.BRZ ordered. EDMS EDMS 09:48 09:48 PROBNP+C.LAB.BRZ ordered. EDMS EDMS 09:48 09:48 PROTIME (+INR)+COAG.LAB.BRZ ordered. EDMS EDMS 09:48 09:48 Troponin High Sensitivity+C.LAB.BRZ ordered. EDMS EDMS 09:48 09:48 LIPASE+C.LAB.BRZ ordered. EDMS EDMS 09:48 09:48 Urinalysis+U.LAB.BRZ ordered. EDMS EDMS 09:48 09:48 BLOOD CULTURE*+BA.LAB.BRZ ordered. EDMS EDMS 09:48 09:48 LACTATE+C.LAB.BRZ ordered. EDMS EDMS 09:48 09:48 PTT, ACTIVATED+COAG.LAB.BRZ ordered. EDMS EDMS 09:48 09:48 Chest Single View+RAD.RAD.BRZ ordered. EDMS EDMS 09:48 09:48 Head Brain Wo Cont+CT.RAD.BRZ ordered. EDMS EDMS 09:48 09:48 Carotid Artery Bilateral+US.RAD.BRZ ordered. EDMS EDMS 12:32 11:50 Head Angio+CT.RAD.BRZ ordered. EDMS EDMS 12:32 11:50 Neck Angio+CT.RAD.BRZ ordered. EDMS EDMS 12:51 12:51 SARS-COV-2 Antigen Rapid+I.LAB.BRZ ordered. EDMS EDMS 12:51 12:51 Influenza Screen (A \T\ B)+BA.LAB.BRZ ordered. EDMS EDMS 12:51 12:51 Group A Streptococcus Rapid Sc+BA.LAB.BRZ ordered. EDMS EDMS 17:47 12:58 martin jl7
[2024-04-01] MEDS ORDERED: VANCOMYCIN 1 GM/VIAL ONE (13:01)
[2024-04-01] MEDS ORDERED: NA CHLORIDE 0.9% 250 ML ONE (13:01)
[2024-04-01 13:29] LABS: SARS-CoV-2 Antigen CONTROL BLUE LINE VIS/BG OK; SARS-CoV-2 Antigen Rapid Res Negative (Negative)
--- NOTE | 2024-04-01 14:13 | RAD REPORT ---
EXAM: CT CHEST, ABDOMEN AND PELVIS WITHOUT CONTRAST CLINICAL INDICATION: Chest and abdominal pain. Congestion. Flank pain. Cough TECHNIQUE: CT chest, abdomen and pelvis was performed, without IV contrast, as per department protoco l. Axial, sagittal and coronal reconstructions were obtained. One or more of the following dose reduction techniques were used: Automated exposure control, adjustment of the mA and/or kV according to the patient size, and/or iterative reconstruction. Unless otherwise specified, incidental findings do not require dedicated imaging follow-up. The lack of IV and oral contrast limits evaluation of the mediastinum, paulino, vessels, organs and javy l. COMPARISON: [address] lumbar spine FINDINGS: Left lower lobe consolidation. Additional right middle and right lower lobe consolidations. Mild upper lobe opacities. No mediastinal or hilar lymphadenopathy seen. Mild esophageal distention containing fluid. No pleural effusion. No pericardial effusion. Cholecystectomy. Mild dilatation intrahepatic biliary tree. Moderate dilatation extrahepatic bile thelma ts. The spleen, pancreas and adrenals grossly normal. Multiple,, bilateral renal calculi. No hydronephrosis. Visualized ureters are normal caliber. Artifac t from bilateral hip evaluation of the mid and distal pelvis. This obscures evaluation of the distal ureters and inferior bladder. 7.3 cm right cyst. There is no evidence of diverticulitis Postsurgical changes lumbar spine. Osteolysis involving portions of the L3 and L4 vertebra are unchan ged from 2021. IMPRESSION: Bilateral pneumonia. Dilatation of the biliary tree can be physiologic in a patient status post cholecystectomy. Pathology such as stricture and nonvisualized stone can also result in this appearance and should be correlated clinically and with appropriate lab values.
[2024-04-01] MEDS: NA CHLORIDE 0.9% 1,000 ML IV SCH (17:05)
[2024-04-01] MEDS: VANCOMYCIN 1 GM in NA CHLORIDE 0.9% 250 ML IVPB SCH (17:05)
[2024-04-01 17:35] VITALS: BMI 41.8
[2024-04-01] MEDS: VANCOMYCIN 1.25 GM in NA CHLORIDE 0.9% 250 ML IVPB ONE (18:00)
[2024-04-01] MEDS: VANCOMYCIN 500 MG/VIAL ONE (19:45)
[2024-04-01] MEDS: VANCOMYCIN 1 GM/VIAL ONE (19:48)
[2024-04-01] MEDS: NA CHLORIDE 0.9% 250 ML ONE (19:50)
[2024-04-01] MEDS: Meropenem 1,000 MG in NA CHLORIDE 0.9% 100 ML IV SCH (20:12)
[2024-04-01] MEDS: FAMOTIDINE 20 MG/2 ML VIAL IV SCH (20:12)
[2024-04-02] MEDS: HYDROMORPHONE ORAL 2 MG TAB PO PRN (03:35)
[2024-04-02] MEDS: DESVENLAFAXINE 100 MG PO SCH (09:00)
[2024-04-02] MEDS ORDERED: HYDROMORPHONE ORAL 2 MG TAB PO SCH (09:00)
[2024-04-02] MEDS: FAMOTIDINE 20 MG TAB PO SCH (09:54)
[2024-04-02] MEDS: SPIRONOLACTONE 25 MG TABLET PO SCH (09:54)
[2024-04-02] MEDS: PREGABALIN 75 MG CAP PO SCH (09:55)
[2024-04-02] MEDS: AMIODARONE HCL 200 MG TAB PO SCH (09:55)
[2024-04-02] MEDS: PANTOPRAZOLE 40MG TABLET PO SCH (09:55)
[2024-04-02] MEDS: MEMANTINE HCL 10 MG TABLET PO SCH (09:55)
[2024-04-02] MEDS: acetaZOLAMIDE 250 MG TAB PO SCH (09:55)
[2024-04-02] MEDS: DONEPEZIL HCL 5 MG TAB PO SCH (09:55)
[2024-04-02] MEDS: FUROSEMIDE 20 MG TABLET PO SCH (09:56)
[2024-04-02] MEDS: LEVOTHYROXINE SOD 0.112 MG TAB PO SCH (09:56)
[2024-04-02] MEDS: APIXABAN 5 MG TABLET PO SCH (09:56)
--- NOTE | 2024-04-02 11:53 | HP ---
Date of Admission: 04/02/2024 Chief Complaint: Shortness of breath, altered mental status. History Of Present Illness: This is a 73-year-old pleasant female patient, who came into emergency room with shortness of breath, low oxygen level, and altered mental status. As per my discussion with the patient as well as discussion with the patient's daughter who was contacted after I visited the patient today and talked to her on the phone as well and as per information that I have obtained from both of them that about 2 weeks ago or so, the patient got sick with some cough and congestion type of symptoms and she was tested positive for flu at [facility] and she received treatment for flu. About 4 days after that, she went back to [facility] because of her problem with cough and her chest x-ray was negative and she was sent home with doxycycline and steroid medication. She took those medications as prescribed and she has continued to have dry cough. She did not have any fever until yesterday. She had fever at home and around 4:30 p.m. or so, she went to the bathroom and at that time, she took her oxygen off and when she came back, she felt like she had shortness of breath. She sat down in the chair and she fell asleep without using her oxygen and around 9 p.m. or so, granddaughter found her sitting in the chair and when she tried to wake her up, the patient had altered mental status. At that time, she was confused. Her oxygen saturation was 66% and the patient's daughter came there and called ambulance and she was brought into our hospital. After she was evaluated, she was admitted to the hospital with pneumonia and urinary tract infection. When I saw the patient this morning, she was awake, alert, oriented, answering questions appropriately. Allergies: TO MORPHINE, CAUSING NAUSEA AND VOMITING; CODEINE, CAUSING NAUSEA AND VOMITING; AND SULFA, CAUSING RASH. Review of Systems: Respiratory: As mentioned above. DYER HELPER: As mentioned above. All other systems reviewed and negative. Medications: Acetazolamide 250 mg daily, amiodarone 200 mg tablets daily, Eliquis 5 mg 2 times a day, Zyrtec 10 mg daily at bedtime, vitamin D3 2000 unitsdaily, Pristiq 100 mg daily, famotidine 20 mg 2 times a day, furosemide 20 mg 2 times a day, Dilaudid 2 mg 2 times a day, levothyroxine 112 mcg daily, memantine5 mg 2 times a day, mirtazapine 7.5 mg daily at bedtime, pramipexole 1 mg at bedtime, Lyrica 225 mg 2 times a day, Seroquel 100 mg daily at bedtime, rosuvastatin 20 mg daily at bedtime, spironolactone 25 mg daily. Past Medical History: Significant for chronic diastolic heart failure, hypothyroidism, anemia, osteoarthritis at multiple sites hypokalemia, hypertension, hyperlipidemia, fibromyalgia, vitamin D deficiency, chronic leg edema, paroxysmal atrial fibrillation, osteoporosis, prior history of stroke, chronic kidney disease stage 3A, dementia, restless legs syndrome. Past Surgical History: Cataract surgery; hysterectomy; back surgery in 2013; pain pump, which was placed and then subsequently removed on January 02, 2022;spinal cord stimulator placement, 2014 and removal of hardware from her back, 2018; SI fusion, 2021; and bilateral hip replacement surgery. Family History: Father due to swine flu. Mother and had anxiety, depression, myocardial infarction. Sister has myocardial infarction. Social History: Negative for smoking and alcohol use Physical Examination: Vital Signs: Height 4 feet 10 inches, weight 200 pounds. Temperature 98.1, pulse 57, respiratory rate 18, blood pressure 132/57, oxygen saturation 97% on 3 L nasal cannula oxygen. General: Awake, alert, oriented, not in distress. HEENT: Head atraumatic, normocephalic. Conjunctivae nonerythematous. Sclerae white. Mouth, no thrush or edema noted. Ears/Nose, no mass, lesion, discharge noted. Neck: Supple. No JVD, lymph nodes, bruit, thyromegaly noted. Lungs: The patient not using any accessory muscles of respiration. Bilateral good equal air entry with some presence of scattered rales in lower lung porter. Heart: Normal heart sounds, no murmur or gallop. Abdomen: Soft, bowel sounds normal. No guarding, rigidity, tenderness, mass, hepatosplenomegaly, distention, or bruit noted. Extremities: No leg edema. No calf tenderness. Skin: No rash, ulcer, cellulitis. Lymphatics: No lymph node enlargement in neck, supraclavicular, infraclavicular region. Neuro: No focal neurological deficit. Chest: Unremarkable. External Genitalia: Deferred. Rectal: Deferred. Laboratory Data: WBC 11, hemoglobin 8.2, platelets 237. Sodium 141, potassium 3.8, chloride 111, bicarb 24, BUN 12, creatinine 1.26, glucose 98, lactic acid 1.2. Liver function tests unremarkable. Troponin 19.1. ProBNP 52. Lipase 10. Urinalysis, 2+ nitrites, 25 leukocytes. Rest of the urinalysis was negative. Carotid Dopplers, stenotic lesion. Chest x-ray shows moderate CHF type of pattern. CAT scan of the head was negative for any acute intracranial changes. CAT scan of the chest, abdomen, and pelvis shows evidence of pneumonia involving left lower lobe, right middle and right lower lobe as well as upper lobe opacities. Impression: 1. Multilobar pneumonia. 2. Acute on chronic respiratory failure with hypoxia. 3. Anemia, unspecified. 4. Paroxysmal atrial fibrillation. 5. Chronic anticoagulation therapy. 6. Chronic kidney disease stage IIIA. 7. Chronic diastolic heart failure. 8. Hypothyroidism. 9. Osteoarthritis, multiple sites. 10. Hypertension. 11. Hyperlipidemia. 12. Fibromyalgia. 13. Vitamin D deficiency. 14. Restless legs syndrome. 15. Senile dementia. 16. Urinary tract infection. Plan: We will go ahead and admit the patient to hospital for further evaluation and management of this problem. The patient is appropriate for inpatient and is expected to spend 2 midnights in hospital. For pneumonia, we will go ahead and give meropenem as well as vancomycin per order. Pharmacy to adjust vancomycin dose. For urinary tract infection, continue meropenem. Follow up on the urine culture results. We will consult Physical Therapy to help ambulate the patient. For atrial fibrillation, she is on amiodarone which will be continued. The patient is on chronic anticoagulation therapy with Eliquis and we will continue that as well. For chronic respiratory failure with hypoxia, the patient has acute exacerbation on top of that and we will continue oxygen replacement therapy per order. For her chronic diastolic heart failure, she is on furosemide and we will continue that as per order. Hypothyroidism will be managed with her levothyroxine and no need for further intervention. For her senile dementia, she is on donepezil and memantine and we will continue that per order and no need for further intervention. For hyperlipidemia, we will continue her Rosuvastatin per order. Total time spent today 85 minutes including review of last hospital visit record from 03/07/2023 admission, review of emergency room visit record from this admission, communication with emergency room physician, communication with the patient's daughter performing today's evaluation and management. I have also discussed with her regarding code status and in the event of cardiopulmonary arrest, the patient does not want any heroic measures like CPR, defibrillation, or ventilator support, and DNR order will be written in the chart. I will see her tomorrow for followup. BO/J LUIS Voice ID: [id number] JOAN
[2024-04-02] MEDS: ROSUVASTATIN 10 MG TAB PO SCH (20:02)
[2024-04-02] MEDS: MIRTAZAPINE 15 MG TAB PO SCH (20:03)
[2024-04-02] MEDS: QUETIAPINE 100MG TAB PO SCH (20:03)
[2024-04-02] MEDS: PRAMIPEXOLE 1 MG TAB PO SCH (20:03)
[2024-04-02] MEDS ORDERED: VANCOMYCIN 1.75 GM in NA CHLORIDE 0.9% 500 ML IVPB SCH (21:00)
[2024-04-03 05:51] LABS: Absolute Eosinophils 0.3 K/uL (0-0.5); Absolute Lymphocytes (CBC) 1.6 K/uL (0.7-4.9); Absolute Monocytes 0.5 K/uL (0.1-1.3); Absolute Neutrophil 4.8 K/uL (1.8-8.0); Basophils % 0.6 % (0-1.3); Eosinophils % 4.1 % (0-4.4); Hematocrit 25.3 % (36.0-45.0); Hemoglobin 8.2 g/dL (12.0-15.0); Lymphocytes % 22.1 % (15.3-44.8); MCH 22.9 pg (27.0-35.0); MCHC 32.3 g/dL (32.0-36.0); MCV 71.1 fL (80-100); MPV 7.9 fL (7.6-11.3); Monocytes % 6.7 % (3.3-12.3); Neutrophils % 66.5 % (41.7-73.7); Platelets 228 thou/uL (152-406); RBC Red Blood Cell Count 3.56 M/uL (3.86-4.86); Red Cell Distribution Width 18.4 % (12.1-15.2)
[2024-04-03 06:28] LABS: Anion Gap 4.3 mEq/L (5.0-15.0); Magnesium 1.9 mg/dL (1.6-2.4); Potassium 3.3 mEq/L (3.5-5.1); Thyroid Stimulating Hormone 3.11 uIU/mL (0.358-3.740)
[2024-04-03] MEDS: POTASSIUM CL SA 10 MEQ TAB PO ONE (10:08)
[2024-04-03] MEDS ORDERED: VANCOMYCIN 1.75 GM in NA CHLORIDE 0.9% 500 ML IVPB SCH (13:00)
[2024-04-03] MEDS: VANCOMYCIN 1.5 GM in NA CHLORIDE 0.9% 500 ML IVPB SCH (13:51)
--- NOTE | 2024-04-04 07:31 | RAD REPORT ---
EXAM: Chest Single View HISTORY: pneumonia COMPARISON: 04/01/2024 FINDINGS: LUNGS/PLEURA: Patchy airspace disease is again noted within the perihilar regions and lung bases bila terally similar to 04/01/2024. MEDIASTINUM: The mediastinal silhouette is within normal limits. CARDIAC: Mild cardiomegaly. UPPER ABDOMEN: No significant abnormality. BONES: No acute fracture. LINES/TUBES/OTHER: N/A IMPRESSION: Similar predominantly basilar airspace disease compared with 04/01/2024 likely reflecting pneumonia o r pneumonitis.
[2024-04-04] MEDS ORDERED: ACETAMINOPHEN 500 MG TAB PO PRN (09:06)
[2024-04-04] MEDS ORDERED: DESVENLAFAXINE 50 MG PO SCH (09:30)
--- NOTE | 2024-04-04 09:53 | PN ---
Date of Progress Note: 04/04/2024 Subjective: The patient was seen this morning for followup. She was lying in bed, not in distress. Reported that her pain medication, Dilaudid, she is having trouble getting it. It is ordered b.i.d. p.r.n., but when she requested yesterday, nurse did not give it to her as she was told that it was n ot time, so I have today talked to the charge nurse and clarified that the patient may take her b.i.d . doses any time within 24 hours, maximum 2 doses in 24 hours, so hopefully she should not have diffi culty getting her pain medication. She also requested Tylenol order to be in place, which was ordere d today. Yesterday, she did walk with physical therapy about 50 feet and I have encouraged her to wa lk more today with therapy. She did have bowel movement day before yesterday and she feels like she would have 1 today. Denies any abdominal pain, nausea, vomiting. Objective: Vital Signs: Reviewed. HEENT: Unremarkable. Lungs: Bilateral good equal air entry. Presence of minimal basal rales, overall better than before. Not using accessory muscles of respiration. Heart: Sounds normal. Abdomen: Soft. Bowel sounds normal. No guarding, rigidity, tenderness, distention. Extremities: No leg edema. Impression: 1.Pneumonia. 2.Hypokalemia. 3.Anemia. 4.Chronic anticoagulation therapy. 5.Paroxysmal atrial fibrillation. 6.Osteoarthritis, multiple sites. Plan: We will continue pain medication per order. Continue current antibiotics. Physical therapy t o ambulate the patient. Continue oxygen and other current medical management. I will see her tomorrow for followup. We will repeat b rosie work tomorrow. BO/MODL Voice ID: [id number] Report ID: [id number]
[2024-04-04 10:01] LABS: Anion Gap 5.1 mEq/L (5.0-15.0); Potassium 4.1 mEq/L (3.5-5.1)
--- NOTE | 2024-04-04 10:08 | PN ---
Date of Progress Note: 04/03/2024 Subjective: The patient was seen this morning for followup. No new complaints or problems reported by the patient. She was lying in bed, not in any distress. Objective: Vital Signs: Reviewed. HEENT: Unremarkable. Lungs: Bilateral good equal air entry with presence of some rales noted in lower lung porter, better than before. Not using accessory muscles of respiration. Heart: Sounds normal. Abdomen: Soft. Bowel sounds normal. No guarding, rigidity, tenderness, distention. Extremities: No leg edema. Laboratory Data: White count 7.2, hemoglobin 8.2, platelets 228. Sodium 142, potassium 3.3, chlorid e 112, bicarb 29, BUN 9, creatinine 0.83, glucose 78. Impression: 1.Pneumonia. 2.Hypokalemia. 3.Anemia. 4.Chronic anticoagulation therapy. 5.Paroxysmal atrial fibrillation. Plan: We will go ahead and continue current medication. Continue current antibiotic, oxygen, and ot her current medical management. Physical Therapy to continue to work with the patient to ambulate he r. Replace potassium per electrolyte replacement protocol. I will see her tomorrow for followup. BO/MODL Voice ID: [id number] Report ID: [id number]
--- NOTE | 2024-04-04 13:45 | EKG ---
Test Date: 2024-04-01 Test Time: 10:40:52 Event Organizer: HAWA MEASUREMENT RESULTS: Intervals: Rate: 79 TX: 182 QRSD: 96 QT: 388 QTc: 444 [place]: P: 68 TX: 182 QRS: -90 T: 44 INTERPRETIVE STATEMENTS: Normal sinus rhythm Left axis deviation Low voltage QRS Abnormal ECG Compared to ECG 12/04/2023 16:55:30 Left-axis deviation now present Sinus bradycardia no longer present Incomplete right bundle-branch block no longer present Left anterior fascicular block no longer present Myocardial infarct finding no longer present Electronically Signed On 04-04-24 13:38:08 PACKING MACHINE FEEDER by Nghia Baldwin
[2024-04-04] MEDS: DESVENLAFAXINE 50 MG PO SCH (21:04)
[2024-04-04] MEDS: HYDROMORPHONE ORAL 2 MG TAB PO PRN (21:05)
[2024-04-05 06:20] LABS: Absolute Eosinophils 0.3 K/uL (0-0.5); Absolute Lymphocytes (CBC) 1.7 K/uL (0.7-4.9); Absolute Monocytes 0.5 K/uL (0.1-1.3); Absolute Neutrophil 3.1 K/uL (1.8-8.0); Basophils % 0.6 % (0-1.3); Eosinophils % 5.3 % (0-4.4); Hematocrit 27.1 % (36.0-45.0); Hemoglobin 8.6 g/dL (12.0-15.0); Lymphocytes % 29.8 % (15.3-44.8); MCH 22.6 pg (27.0-35.0); MCHC 31.9 g/dL (32.0-36.0); MPV 7.8 fL (7.6-11.3); Monocytes % 9.2 % (3.3-12.3); Neutrophils % 55.1 % (41.7-73.7); Nucleated Red Blood Cells % 0.1 % (0-0); Platelets 227 thou/uL (152-406); RBC Red Blood Cell Count 3.81 M/uL (3.86-4.86); Red Cell Distribution Width 18.3 % (12.1-15.2)
[2024-04-05 06:36] LABS: Anion Gap 6.6 mEq/L (5.0-15.0); Magnesium 1.8 mg/dL (1.6-2.4); Potassium 3.6 mEq/L (3.5-5.1)
[2024-04-05] MEDS: POTASSIUM CL SA 10 MEQ TAB PO ONE (07:46)
--- NOTE | 2024-04-05 11:02 | PN ---
Date of Progress Note: 04/05/2024 Subjective: The patient was seen this morning for followup. When I saw her, she reported that since she woke up this morning, she has been complaining of some chest pain in the center of her chest. S he does report that pain gets worse when she breathes deep. No relation with coughing or any movemen t. Denies any nausea, vomiting. No radiation of pain anywhere else. Objective: Vital Signs: Reviewed. HEENT: Unremarkable. Lungs: Bilateral good equal entry. Presence of some rales noted in lower lung field with some occas ional wheezing. Not using accessory muscles of respiration. Heart: Sounds normal. Abdomen: Soft. Bowel sounds normal. No guarding, rigidity, tenderness, distention. Extremities: No leg edema. Laboratory Data: White count 5.6, hemoglobin 8.6, platelets 227. Sodium 140, potassium 3.6, chlorid e 107, bicarb 30, BUN 12, creatinine 0.87, glucose 87, magnesium 1.8. Blood culture remains negative . Impression: 1.Pneumonia. 2.Anemia. 3.Chronic respiratory failure with hypoxia. 4.Acute on chronic respiratory failure with hypoxia. 5.Chest pain. 6.Paroxysmal atrial fibrillation. 7.Chronic anticoagulation therapy. 8.Chronic diastolic heart failure. Plan: We will go ahead and continue current antibiotics. We will get EKG and troponin level. It ap pears very likely that her chest pain is atypical in nature, but we will get some cardiac workup done on her, and details and plan treatment discussed with her. Continue current antibiotics and we will repeat chest x-ray tomorrow morning. Depending on her condition tomorrow, we will decide if we can possibly discharge her to go home tomorrow or not. Details and plan of treatment discussed with her. BO/MODL Voice ID: [id number] Report ID: [id number]
[2024-04-05] MEDS: VANCOMYCIN 1.75 GM in NA CHLORIDE 0.9% 500 ML IVPB SCH (12:45)
[2024-04-05] MEDS ORDERED: DESVENLAFAXINE 50 MG PO SCH (19:24)
[2024-04-06 05:35] LABS: Anion Gap 5.4 mEq/L (5.0-15.0); Potassium 4.4 mEq/L (3.5-5.1)
--- NOTE | 2024-04-06 07:03 | RAD REPORT ---
EXAM: Chest Single View HISTORY: pneumonia COMPARISON: 04/04/2024, chest CT 04/01/2024 FINDINGS: LUNGS/PLEURA: Decreased lung volumes from prior. Mild airspace disease is noted in the left [place] right lung bases and perihilar regions which is similar to 04/04/2024. MEDIASTINUM: The mediastinal silhouette is within normal limits. CARDIAC: Stable size and configuration. UPPER ABDOMEN: No significant abnormality. BONES: No acute fracture. LINES/TUBES/OTHER: N/A IMPRESSION: Decreased lung volumes with grossly similar perihilar and basilar airspace disease which remains cons istent with pneumonia.
[2024-04-06] MEDS: DESVENLAFAXINE SUCCINATE 50 MG ER TAB PO SCH (07:53)
--- NOTE | 2024-04-06 13:17 | PN ---
Date of Progress Note: 04/06/2024 Subjective: The patient was seen this morning for followup. She was lying in bed. Denies any new c omplaints. Reports that she really does not feel any better compared to before, but wants to go home . Objective: Vital Signs: Reviewed. HEENT: Unremarkable. Lungs: Bilateral good equal air entry with presence of rales noted, unchanged from yesterday. Heart: Sounds normal. Abdomen: Soft. Bowel sounds normal. No guarding, rigidity, tenderness, distention. Extremities: No leg edema. Laboratory Data: Chest x-ray from yesterday shows decreased lung volumes with similar perihilar and bibasilar opacities, and chemistry today sodium 142, potassium 4.4, chloride 110, bicarb 31, BUN 10, creatinine 0.82. Glucose 117. Impression: 1.Pneumonia. 2.Atrial fibrillation. 3.Chronic anticoagulation therapy. 4.Chronic diastolic heart failure. Plan: We will go ahead and continue current medications. Continue current antibiotics which are kaitlynn openem and vancomycin. Cultures are negative, so far. Chest x-ray has not shown any change compared to before and we will continue oxygen as well as anticoagulation therapy. The patient is on amiodar one for her atrial fibrillation and we need to rule out possibility of lung side effect due to amioda rajendra in view of this persistent abnormality on a chest x-ray that we are seeing. With that in mind, I have discussed all those details with the patient and we will request pulmonary consultation from Ross Barnes and will need to keep her in the hospital until we resolve this issue about this concern that we have and she is agreeable to stay in the hospital. I also called her daughter and talked to her on the phone and explained to her details as well. BO/MODL Voice ID: [id number] Report ID: [id number]
--- NOTE | 2024-04-06 18:57 | P.CNS ---
Date of Consult: 04/06/24 Reason for Consult: Bilateral pneumonia Chief Complaint: Hypoxemia fever History of Present Illness: Patient is 73 years of age admitted with altered mental status hypoxemia blood pressure bilateral pulmonary infiltrates has been having a cough for the past 1 month low-grade fever shaking spells has chronic A-fib on amiodarone has any cough chest pain or productive phlegm feeling too good Allergies codeine Allergy (Verified 12/29/21 12:37) Nausea/Vomiting morphine Allergy (Verified 12/29/21 12:37) Hives/Rash/Nausea/Vomiting Sulfa (Sulfonamide Antibiotics) Allergy (Verified 12/29/21 12:37) Hives/Rash Beef Containing Products Adverse Reaction (Verified 12/29/21 12:37) Makes Gag Home Medications: Desvenlafaxine [Desvenlafaxine ER] 100 mg PO DAILY 11/02/22 Famotidine 20 mg PO BID 11/02/22 Furosemide [Lasix*] 20 mg PO DAILY 11/02/22 Hydromorphone [Dilaudid*] 2 mg PO BIDP PRN 11/02/22 Levothyroxine [Synthroid*] 112 mcg PO DAILY 11/02/22 Memantine HCl [Namenda] 5 mg PO DAILY 11/02/22 Mirtazapine 15 mg PO BEDTIME 11/02/22 Omeprazole 20 mg PO DAILY 11/02/22 Pramipexole [Mirapex*] 1 mg PO BEDTIME 11/02/22 Pregabalin [Lyrica] 225 mg PO BID 11/02/22 Quetiapine Fumarate [Seroquel] 100 mg PO BEDTIME 11/02/22 Rosuvastatin [Crestor*] 20 mg PO BEDTIME 11/02/22 Spironolactone 25 mg PO DAILY 11/02/22 acetaZOLAMIDE [Acetazolamide] 250 mg PO DAILY 11/02/22 Amiodarone HCl [Cordarone*] 200 mg PO DAILY #0 tab 03/09/23 Apixaban [Eliquis] 5 mg PO BID 04/01/24 Donepezil HCl [Aricept] 10 mg PO BID 04/01/24 - Past Medical/Surgical History Diabetic: No -: hypothyroid -: fibromyalgia -: HTN -: restless leg -: depression -: dementia -: chronic pain-Lower back and legs -: osteoarthritis -: Osteoporosis -: Significant for chronic diastolic heart failure, hypothyroidism, -: hysterectomy -: right hip -: left hip -: back surgery -: back stimulator placed -: removed stimulator -: pain pump placed and removed - Family History Sister Medical History: Heart disease Notes: Nose Cancer, Kidney disease, CT-. Other sister- CT - Social History Smoking Status: Unknown if ever smoked Alcohol use: No CD- Drugs: No Caffeine use: Yes Review of Systems 10-point ROS is otherwise unremarkable General: Weakness Respiratory: Cough, Shortness of Breath Physical Examination Temp Pulse Resp BP Pulse Ox 97.8 F 59 14 110/56 L 96 04/06/24 16:00 04/06/24 16:00 04/06/24 16:00 04/06/24 16:00 04/06/24 16:00 General: Alert, In no apparent distress, Oriented x3 Respiratory: Clear to auscultation bilaterally Cardiovascular: No edema, Regular rate/rhythm - Problems (1) Pneumonia Current Visit: Yes Status: Acute Plan: Patient is 73 years of age admitted with hypoxemia altered mental status bilateral infiltrates has a history of A-fib CHF as prior history of stroke she is also on amiodarone for his labs are concerned there is no evidence of any acute infection white count is normal no fever
[2024-04-06] MEDS: METHYLPREDNISOLONE 40 MG INJ IV SCH (20:17)
[2024-04-07 07:12] LABS: Ferritin 58.4 ng/mL (8-252)
--- NOTE | 2024-04-07 14:51 | ECHO ---
HEIGHT: 4 ft 10 in WEIGHT: 200 lb 0 oz DATE OF STUDY: 04/03/[address]: Aldo Cabello MD 2-DIMENSIONAL: YES M.MODE: YES DOPPLER: YES COLOR FLOW: YES TDS: NO PORTABLE: YES DEFINITY: NO BUBBLE STUDY: NO DIAGNOSIS: CONGESTIVE HEART FAILURE CARDIAC HISTORY: CATHERIZATION: NO SURGERY: NO PROSTHETIC VALVE: NO PACEMAKER: NO MEASUREMENTS (cm) DIASTOLIC (NORMALS) SYSTOLIC (NORMALS) IVSd 1.0 (0.6-1.2) LA Diam 2.9 (1.9-4.0) LVEF 55% LVIDd 4.3 (3.5-5.7) LVIDs 2.7 (2.0-3.5) %FS 38% LVPWd 1.1 (0.6-1.2) Ao Diam 2.7 (2.0-3.7) 2 DIMENSIONAL ASSESSMENT: RIGHT ATRIUM: NORMAL LEFT ATRIUM: NORMAL RIGHT VENTRICLE: NORMAL LEFT VENTRICLE: NORMAL TRICUSPID VALVE: TRACE TRICUSPID REGURGITATION MITRAL VALVE: NORMAL PULMONIC VALVE: NORMAL AORTIC VALVE: NORMAL PERICARDIAL EFFUSION: NONE AORTIC ROOT: NORMAL LEFT VENTRICULAR WALL MOTION: NORMAL. DOPPLER/COLOR FLOW: GRADE I DIASTOLIC DYSFUNCTION. COMMENTS: 1. NORMAL LEFT VENTRICULAR SYSTOLIC FUNCTION. LEFT VENTRICULAR EJECTION FRACTION 55%. NORMAL WALL MOTION. 2. GRADE I DIASTOLIC DYSFUNCTION. 3. NORMAL FILLING PRESSURES. TECHNOLOGIST: ERIK LOUISE
--- NOTE | 2024-04-07 20:18 | P.PN ---
Subjective Date of Service: 04/07/24 Chief Complaint: Organizing pneumonia Subjective: Improving (Patient is improving doing much better than yesterday denies any cough congestion fever or chills) Review of Systems General: Weakness Respiratory: Shortness of Breath Physical Examination - Vital Signs Temperature: 97.9 F Blood Pressure: 104/52 Pulse: 64 Respirations: 16 Pulse Ox (%): 95 - Physical Exam General: Alert, In no apparent distress, Oriented x3 Respiratory: Clear to auscultation bilaterally, Diminished Cardiovascular: No edema, Regular rate/rhythm Assessment And Plan - Current Problems (Diagnosis) (1) Pneumonia Current Visit: Yes Status: Acute Plan: Patient is doing much better changed to p.o. prednisone can DC IV antibiotics chemistries reviewed patient's cultures are all negative oxygenation satisfactory discharge home on prednisone 20 mg twice a day for a week then decrease to 10 twice a day follow-up with me in 2 weeks patient has microcytic anemia transferrin saturation is low Qualifiers: Pneumonia type: due to unspecified organism Laterality: bilateral (2) Microcytic anemia Current Visit: Yes Status: Acute Plan: Patient has a microcytic anemia and MCV has declined progressively have ordered some iron studies
[2024-04-07] MEDS: predniSONE 20 MG TAB PO SCH (20:59)
--- NOTE | 2024-04-07 21:47 | PN ---
Date of Progress Note: 04/07/2024 Subjective: The patient was seen this morning for followup. She was lying in bed, not in any distre ss. No new complaints or problems reported by her. Objective: Vital Signs: Reviewed. HEENT: Unremarkable. Lungs: Bilateral good equal air entry. No wheezing. Not using accessory muscles of respiration. M inimal basal rales, unchanged from before. Heart: Sounds normal. Abdomen: Soft. Bowel sounds normal. No guarding, rigidity, tenderness, distention. Extremities: No leg edema. Impression: 1.Pneumonia. 2.Anemia. 3.Hypertension. 4.Atrial fibrillation. 5.Chronic anticoagulation therapy. Plan: We will go ahead and continue steroid as per Dr. Barnes. Discontinue amiodarone as per my d iscussion with him. Continue oxygen nebulizer treatment and physical therapy. Continue current Eliq uis. I will see her tomorrow for followup. Depending on her condition, we will decide if we can pos sibly discharge her to go home tomorrow or not. Details and plan of treatment discussed with the cristi dixon. BO/MODL Voice ID: [id number] Report ID: [id number]
[2024-04-07 22:25] VITALS: O2SAT 96
[2024-04-08] MEDS: VANCOMYCIN 1.75 GM in NA CHLORIDE 0.9% 500 ML IVPB SCH (00:51)
[2024-04-08 08:24] VITALS: BP 127/65; TEMP 97.8
--- NOTE | 2024-04-09 01:40 | DS ---
Date of Discharge: 04/08/2024 Disposition: Discharged to go home. Physical Examination: HEENT: Unremarkable. Lungs: Clear to auscultation except minimum left basal rales. Heart: Sounds normal. Abdomen: Soft. Bowel sounds normal. No guarding, rigidity, tenderness, distention. Extremities: No leg edema. Discharge Medications And Instructions: Continue all prior home medication except following changes: 1.Stop amiodarone. 2.Start prednisone 10 mg, take 2 tablets by mouth 2 times a day for 4 days, then 1 tablet by mouth 2 times a day for 4 days, then 1 tablet by mouth daily for 4 days, then half tablet by mouth daily for 4 days, then stop, take it with food. 3.Follow up at my office next week. 4.Follow up with Dr. Barnes in 2 weeks. Laboratory Data: Upon admission on 04/01/2024, WBC count was 11, hemoglobin was 8.2, and platelets 2 37, and last CBC from 04/05/2024 shows WBC count 5.6, hemoglobin 8.6, platelets 227. For chemistry o n 04/06, sodium 142, potassium 4.4, chloride 110, bicarb 31, BUN 10, creatinine 0.82, glucose 117. U dhruv admission, sodium 141, potassium 3.8, chloride 111, bicarb 24, BUN 12, creatinine 1.26, glucose 9 8. Liver function tests unremarkable. TSH 3.1. Hospital Course: This is a 73-year-old very pleasant female patient, who was admitted to the [facility] with complaints of shortness of breath and altered mental status. Please see dictated H and P for more information. The patient was admitted to the hospital with bilateral pneumonia. She also had a cute on chronic respiratory failure with hypoxia. She was started on empiric IV antibiotic which was meropenem and vancomycin. It is important to note that she has finished outpatient antibiotic thera py with doxycycline for pneumonia prior to this hospital admission which was prescribed from [facility]. Her oxygen replacement therapy was continued. Physical Therapy was consulted and her othe r chronic medical problems remained stable. Repeat chest x-ray continues to have unchanged pneumonia and with that since the patient is on amiodarone, I requested consultation from Dr. Barnes to see if this could be pulmonary toxicity from amiodarone and he evaluated and details were discussed with him. Dr. Barnes is more concerned about organizing pneumonia more than anything else and recommend ed to start the patient on steroid, which he started IV Solu-Medrol and as of last night he changed i t to oral prednisone. He has agreed to stop amiodarone at least right now on a temporary basis and w lay will see how she responds to steroid and then subsequently we might be able to resume amiodarone at appropriate time depending on her pulmonary recovery. The patient has felt better in last 24 hours before since she is on steroid and today she was discharged to go home in stable condition with above -mentioned medications and instructions. Final Diagnoses: 1.Multilobar pneumonia. 2.Acute on chronic respiratory failure with hypoxia. 3.Anemia, chronic, unspecified. 4.Paroxysmal atrial fibrillation. 5.Chronic anticoagulation therapy. 6.Chronic kidney disease stage IIIA. 7.Chronic diastolic heart failure. 8.Hypothyroidism. 9.Osteoarthritis, multiple sites. 10.Hypertension. 11.Hyperlipidemia. 12.Fibromyalgia. 13.Vitamin D deficiency. 14.Restless legs syndrome. 15.Senile dementia. 16.Urinary tract infection. Total time spent today was 40 minutes. BO/MODL Voice ID: [id number] Report ID: [id number]
--- NOTE | 2024-04-10 12:13 | EKG ---
Test Date: 2024-04-05 Test Time: 10:07:39 Calender Let Off Operator: ALEX Alicae MEASUREMENT RESULTS: Intervals: Rate: 64 RI: 194 QRSD: 96 QT: 442 QTc: 455 [place]: P: 38 RI: 194 QRS: -60 T: 20 INTERPRETIVE STATEMENTS: Normal sinus rhythm Low voltage QRS Left anterior fascicular block Possible Anterolateral infarct, age undetermined Abnormal ECG Compared to ECG 04/01/2024 10:40:52 Left anterior fascicular block now present Myocardial infarct finding now present Left-axis deviation no longer present Electronically Signed On 04-10-24 12:11:36 PIANO MOVER by Barrington Ratliff
--- NOTE | 2024-04-11 12:52 | EKG ---
Test Date: 2024-04-05 Test Time: 10:10:09 Film And Video Editor: ALEX Alicea MEASUREMENT RESULTS: Intervals: Rate: 60 MD: 190 QRSD: 98 QT: 434 QTc: 434 [place]: P: 42 MD: 190 QRS: -62 T: 16 INTERPRETIVE STATEMENTS: Normal sinus rhythm Low voltage QRS Left anterior fascicular block Possible Anterolateral infarct, age undetermined Abnormal ECG Compared to ECG 04/05/2024 10:07:39 No significant changes Electronically Signed On 04-11-24 12:49:37 SANDING LINE OPERATOR by Barrington Ratliff
== END 2024-04-08 12:10 | disposition home health service (06) | DRG 193 ==
LOC: ER 09:37 → ERHOLD 13:02 → 2ND 18:35
PROVIDERS: ADMIT Internal Medicine; ATTEND Internal Medicine
DX: J18.9 Pneumonia, unspecified organism (principal); J96.21 Acute and chronic respiratory failure with hypoxia; I13.0 Hypertensive heart and chronic kidney disease with heart failure and stage 1 through stage 4 chronic kidney disease, or unspecified chronic kidney disease; Z68.41 Body mass index [BMI] 40.0-44.9, adult; I50.32 Chronic diastolic (congestive) heart failure; N39.0 Urinary tract infection, site not specified; D64.9 Anemia, unspecified; E66.01 Morbid (severe) obesity due to excess calories; Z88.5 Allergy status to narcotic agent; Z88.2 Allergy status to sulfonamides; G89.4 Chronic pain syndrome; F32.A Depression, unspecified; F03.90 Unspecified dementia, unspecified severity, without behavioral disturbance, psychotic disturbance, mood disturbance, and anxiety; Z86.73 Personal history of transient ischemic attack (TIA), and cerebral infarction without residual deficits; E03.9 Hypothyroidism, unspecified; N18.31 Chronic kidney disease, stage 3a; M19.90 Unspecified osteoarthritis, unspecified site; E78.5 Hyperlipidemia, unspecified; I48.0 Paroxysmal atrial fibrillation; Z79.01 Long term (current) use of anticoagulants; M79.7 Fibromyalgia; E55.9 Vitamin D deficiency, unspecified; E87.5 Hyperkalemia
CPT/HCPCS: 36415; 70450; 71045; 71250; 74176; 80048; 80076; 80202; 81001; 82728; 83540; 83605; 83690; 83735; 83880; 84443; 84466; 84484; 85025; 85610; 85730; 86850; 86900; 86901; 87040; 87070; 87081; 87205; 87804; 87811; 93005; 93306; 93880; 96361; 96365; 96367; 96368; 96375; 97110; 97116; 97161; 97530; 99285; J1720; J2185; J2919; J7030; J7040; J7050; J7512